=== PATIENT | female | born 1945 ===

== ENCOUNTER 2020-09-14 13:02 | Observation (INO) | payer MEDICARE ==
[2020-09-14 13:11] LABS: Glucose,Whole Blood 63 mg/dL (75-99)
--- NOTE | 2020-09-14 14:13 | ED ---
General Adult HPI - General Chief complaint: Urogenital Stated complaint: hypoglycemia, ulcer on foot Time Seen by Provider: 09/14/20 13:23 Source: patient Mode of arrival: wheelchair Limitations: no limitations - History of Present Illness Initial comments: 75-year-old female presents to the emergency room for several complaints. Patient maintained complaint is hypoglycemia. Patient takes oral medications for diabetes, does not take any insulin. Yesterday patient was not feeling well and her family checked her glucose and it was in the 50s. States they have been giving her juice and feeding her and it has stayed in the 50s and low 60s throughout the evening and today. They did not give her her diabetes medication today. They're also concerned she may have a UTI. She has had thick and foul smelling urine. No fevers. Patient has no other complaints at this time including shortness of breath, chest pain, abdominal pain, nausea or vomiting, headache, or visual changes. - Related Data Allergies Allergy/AdvReac Type Severity Reaction Status Date / Time No Known Allergies Allergy Verified 09/14/20 13:14 Review of Systems ROS Statement: Those systems with pertinent positive or pertinent negative responses have been documented in the HPI. ROS Other: All systems not noted in ROS Statement are negative. Past Medical History Past Medical History: Coronary Artery Disease (CAD), Diabetes Mellitus, Hyperlipidemia, Hypertension History of Any Multi-Drug Resistant Organisms: None Reported Past Surgical History: Heart Catheterization With Stent, Orthopedic Surgery Additional Past Surgical History / Comment(s): hip surgery Past Psychological History: No Psychological Hx Reported Smoking Status: Never smoker Past Alcohol Use History: None Reported Past Drug Use History: None Reported General Exam Limitations: no limitations General appearance: alert, in no apparent distress Head exam: Present: atraumatic, normocephalic, normal inspection Eye exam: Present: normal appearance, PERRL, EOMI. Absent: scleral icterus, conjunctival injection, periorbital swelling ENT exam: Present: normal exam, mucous membranes moist Neck exam: Present: normal inspection, full ROM. Absent: tenderness, meningismus, lymphadenopathy Respiratory exam: Present: normal lung sounds bilaterally. Absent: respiratory distress, wheezes, rales, rhonchi, stridor Cardiovascular Exam: Present: regular rate, normal rhythm, normal heart sounds. Absent: systolic murmur, diastolic murmur, rubs, gallop, clicks GI/Abdominal exam: Present: soft, normal bowel sounds. Absent: distended, te nderness, guarding, rebound, rigid Neurological exam: Present: alert Course Vital Signs 09/14/20 09/14/20 09/14/20 13:08 13:49 14:55 Temperature 98.6 F Pulse Rate 56 L Respiratory 18 16 16 Rate Blood Pressure 140/57 O2 Sat by Pulse 100 Oximetry 09/14/20 15:44 Temperature Pulse Rate 101 H Respiratory 16 Rate Blood Pressure 153/79 O2 Sat by Pulse 99 Oximetry Medical Decision Making - Medical Decision Making Vitals are stable. CBG initially 63. Patient did eat and drink and this actually decreased to 56. Patient was given an amp of glucose and this did improve to 116. Blood work reveals a hemoglobin of 9 and a GFR of 25. No active bleeding. Denies black or red stools. Patient unsure of baseline labs. Patient will be given fluids. Her analysis does show evidence of urinary tract infection. This is likely the cause of patient's hypoglycemia. Patient will be admitted for IV antibiotics and for monitoring of hypoglycemia. - Lab Data Result diagrams: 09/14/20 14:29 09/14/20 14:29 Lab Results 09/14/20 09/14/20 09/14/20 Range/Units 13:10 14:29 14:29 WBC 7.0 (3.8-10.6) k/uL RBC 3.01 L (3.80-5.40) m/uL Hgb 9.0 L (11.4-16.0) gm/dL Hct 27.5 L (34.0-46.0) % MCV 91.2 (80.0-100.0) fL MCH 29.8 (25.0-35.0) pg MCHC 32.7 (31.0-37.0) g/dL RDW 14.3 (11.5-15.5) % Plt Count 289 (150-450) k/uL MPV 7.2 Neutrophils % 82 % Lymphocytes % 11 % Monocytes % 6 % Eosinophils % 1 % Basophils % 0 % Neutrophils # 5.7 (1.3-7.7) k/uL Lymphocytes # 0.8 L (1.0-4.8) k/uL Monocytes # 0.4 (0-1.0) k/uL Eosinophils # 0.1 (0-0.7) k/uL Basophils # 0.0 (0-0.2) k/uL Hypochromasia Slight Sodium 138 (137-145) mmol/L Potassium 5.6 H (3.5-5.1) mmol/L Chloride 103 (98-107) mmol/L Carbon Dioxide 25 (22-30) mmol/L Anion Gap 10 mmol/L BUN 41 H (7-17) mg/dL Creatinine 1.95 H (0.52-1.04) mg/dL Est GFR (CKD-EPI)AfAm 29 (>60 ml/min/1.73 sqM) Est GFR (CKD-EPI)NonAf 25 (>60 ml/min/1.73 sqM) Glucose 184 H (74-99) mg/dL POC Glucose (mg/dL) 63 L (75-99) mg/dL POC Glu Account Underwriter ID Snehal, Sushma Plasma Lactic Acid Lemuel (0.7-2.0) mmol/L Calcium 10.1 (8.4-10.2) mg/dL Total Bilirubin 0.1 L (0.2-1.3) mg/dL AST 20 (14-36) U/L ALT 9 (4-34) U/L Alkaline Phosphatase 96 (38-126) U/L Total Protein 6.9 (6.3-8.2) g/dL Albumin 3.8 (3.5-5.0) g/dL Urine Color Urine Appearance (Clear) Urine pH (5.0-8.0) Ur Specific Holl[place] (1.001-1.035) Urine Protein (Negative) Urine Glucose (UA) (Negative) Urine Ketones (Negative) Urine Blood (Negative) Urine Nitrite (Negative) Urine Bilirubin (Negative) Urine Urobilinogen (<2.0) mg/dL Ur Leukocyte Esterase (Negative) Urine RBC (0-5) /hpf Urine WBC (0-5) /hpf Urine WBC Clumps (None) /hpf Ur Squamous Epith Cells (0-4) /hpf Urine Bacteria (None) /hpf Urine Mucus (None) /hpf 09/14/20 09/14/20 09/14/20 Range/Units 14:29 14:30 15:20 WBC (3.8-10.6) k/uL RBC (3.80-5.40) m/uL Hgb (11.4-16.0) gm/dL Hct (34.0-46.0) % MCV (80.0-100.0) fL MCH (25.0-35.0) pg MCHC (31.0-37.0) g/dL RDW (11.5-15.5) % Plt Count (150-450) k/uL MPV Neutrophils % % Lymphocytes % % Monocytes % % Eosinophils % % Basophils % % Neutrophils # (1.3-7.7) k/uL Lymphocytes # (1.0-4.8) k/uL Monocytes # (0-1.0) k/uL Eosinophils # (0-0.7) k/uL Basophils # (0-0.2) k/uL Hypochromasia Sodium (137-145) mmol/L Potassium (3.5-5.1) mmol/L Chloride (98-107) mmol/L Carbon Dioxide (22-30) mmol/L Anion Gap mmol/L BUN (7-17) mg/dL Creatinine (0.52-1.04) mg/dL Est GFR (CKD-EPI)AfAm (>60 ml/min/1.73 sqM) Est GFR (CKD-EPI)NonAf (>60 ml/min/1.73 sqM) Glucose (74-99) mg/dL POC Glucose (mg/dL) 56 L (75-99) mg/dL POC Glu Account Underwriter ID Angela Mota Plasma Lactic Acid Lemuel 1.1 (0.7-2.0) mmol/L Calcium (8.4-10.2) mg/dL Total Bilirubin (0.2-1.3) mg/dL AST (14-36) U/L ALT (4-34) U/L Alkaline Phosphatase (38-126) U/L Total Protein (6.3-8.2) g/dL Albumin (3.5-5.0) g/dL Urine Color Dark Yellow Urine Appearance Turbid H (Clear) Urine pH 8.0 (5.0-8.0) Ur Specific [place] 1.012 (1.001-1.035) Urine Protein 2+ H (Negative) Urine Glucose (UA) Negative (Negative) Urine Ketones Negative (Negative) Urine Blood Large H (Negative) Urine Nitrite Positive H (Negative) Urine Bilirubin Negative (Negative) Urine Urobilinogen <2.0 (<2.0) mg/dL Ur Leukocyte Esterase Large H (Negative) Urine RBC 123 H (0-5) /hpf Urine WBC >182 H (0-5) /hpf Urine WBC Clumps Moderate H (None) /hpf Ur Squamous Epith Cells 28 H (0-4) /hpf Urine Bacteria Occasional H (None) /hpf Urine Mucus Rare H (None) /hpf 09/14/20 Range/Units 15:32 WBC (3.8-10.6) k/uL RBC (3.80-5.40) m/uL Hgb (11.4-16.0) gm/dL Hct (34.0-46.0) % MCV (80.0-100.0) fL MCH (25.0-35.0) pg MCHC (31.0-37.0) g/dL RDW (11.5-15.5) % Plt Count (150-450) k/uL MPV Neutrophils % % Lymphocytes % % Monocytes % % Eosinophils % % Basophils % % Neutrophils # (1.3-7.7) k/uL Lymphocytes # (1.0-4.8) k/uL Monocytes # (0-1.0) k/uL Eosinophils # (0-0.7) k/uL Basophils # (0-0.2) k/uL Hypochromasia Sodium (137-145) mmol/L Potassium (3.5-5.1) mmol/L Chloride (98-107) mmol/L Carbon Dioxide (22-30) mmol/L Anion Gap mmol/L BUN (7-17) mg/dL Creatinine (0.52-1.04) mg/dL Est GFR (CKD-EPI)AfAm (>60 ml/min/1.73 sqM) Est GFR (CKD-EPI)NonAf (>60 ml/min/1.73 sqM) Glucose (74-99) mg/dL POC Glucose (mg/dL) 116 H (75-99) mg/dL POC Glu Account Underwriter ID Haritha Shay Plasma Lactic Acid Lemuel (0.7-2.0) mmol/L Calcium (8.4-10.2) mg/dL Total Bilirubin (0.2-1.3) mg/dL AST (14-36) U/L ALT (4-34) U/L Alkaline Phosphatase (38-126) U/L Total Protein (6.3-8.2) g/dL Albumin (3.5-5.0) g/dL Urine Color Urine Appearance (Clear) Urine pH (5.0-8.0) Ur Specific [place] (1.001-1.035) Urine Protein (Negative) Urine Glucose (UA) (Negative) Urine Ketones (Negative) Urine Blood (Negative) Urine Nitrite (Negative) Urine Bilirubin (Negative) Urine Urobilinogen (<2.0) mg/dL Ur Leukocyte Esterase (Negative) Urine RBC (0-5) /hpf Urine WBC (0-5) /hpf Urine WBC Clumps (None) /hpf Ur Squamous Epith Cells (0-4) /hpf Urine Bacteria (None) /hpf Urine Mucus (None) /hpf Disposition Clinical Impression: Anemia, UTI (urinary tract infection), CADE (acute kidney injury), Hypoglycemia Disposition: ADMITTED IP TO THIS HOSP Is patient prescribed a controlled substance at d/c from ED?: No Referrals: Anand Flaherty MD [Primary Care Provider] - 1-2 days Time of Disposition: 16:22
[2020-09-14 14:32] LABS: Glucose,Whole Blood 56 mg/dL (75-99)
[2020-09-14] MEDS ORDERED: DEXTROSE 50% SYRINGE 50 ML IVP STA ×3 (14:35→20:17)
[2020-09-14 15:01] LABS: Basophils % (A) 0 %; Eosinophils # (A) 0.1 k/uL (0-0.7); Eosinophils % (A) 1 %; HCT 27.5 % (34.0-46.0); Hypochromasia Slight; Lymphocytes # (A) 0.8 k/uL (1.0-4.8); Lymphocytes % (A) 11 %; MCH 29.8 pg (25.0-35.0); MCHC 32.7 g/dL (31.0-37.0); MCV 91.2 fL (80.0-100.0); Mean Platelet Volume 7.2; Monocytes # (A) 0.4 k/uL (0-1.0); Monocytes % (A) 6 %; Neutrophils # (A) 5.7 k/uL (1.3-7.7); Neutrophils % (A) 82 %; Platelet Count 289 k/uL (150-450); RBC 3.01 m/uL (3.80-5.40); RDW 14.3 % (11.5-15.5)
[2020-09-14 15:11] LABS: Albumin 3.8 g/dL (3.5-5.0); Calcium 10.1 mg/dL (8.4-10.2); Potassium 5.6 mmol/L (3.5-5.1); Total Bilirubin 0.1 mg/dL (0.2-1.3); Total Protein 6.9 g/dL (6.3-8.2)
[2020-09-14 15:30] LABS: Appearance,Urine Turbid (Clear); Bacteria,Urine Occasional /hpf; Bilirubin,Urine Negative (Negative); Blood,Urine Large (Negative); Color,Urine Dark Yellow; Glucose,Urine (UA) Negative (Negative); Ketones,Urine Negative (Negative); Leukocyte Esterase,Urine Large (Negative); Mucus,Urine Rare /hpf; Nitrite,Urine Positive (Negative); Protein,Urine 2+ (Negative); RBC,Urine 123 /hpf (0-5); Specific Gravity,Urine 1.012 (1.001-1.035); Squamous Epithelial Cell,Urine 28 /hpf (0-4); Urobilinogen,Urine <2.0 mg/dL (<2.0); WBC,Urine >182 /hpf (0-5)
[2020-09-14 15:37] LABS: Glucose,Whole Blood 116 mg/dL (75-99)
[2020-09-14] MEDS ORDERED: ACETAMINOPHEN TAB 325 MG TAB PO STA (15:45)
--- NOTE | 2020-09-14 15:53 | XR ---
EXAMINATION TYPE: XR chest 2V DATE OF EXAM: 09/14/2020 COMPARISON: NONE HISTORY: Fever TECHNIQUE: Frontal and lateral views of the chest are obtained. FINDINGS: There is no focal air space opacity, pleural effusion, or pneumothorax seen. The cardiac silhouette size is within normal limits. There is some mild elevation of right hemidiaphragm. The os seous structures are intact. IMPRESSION: No acute cardiopulmonary process.
[2020-09-14] MEDS ORDERED: NALOXONE 0.4 MG/ML 1 ML VIAL IV PRN ×2 (16:22→17:46)
[2020-09-14] MEDS ORDERED: ACETAMINOPHEN TAB 325 MG TAB PO PRN (16:22)
[2020-09-14] MEDS ORDERED: cefTRIAXone IN SWFI 1,000 MG/10 ML SYRINGE IVP STA (16:24)
[2020-09-14] MEDS ORDERED: SODIUM CHLORIDE 0.9% 500 ML 500 ML IV SCH (16:30)
[2020-09-14] MEDS ORDERED: SODIUM CHLORIDE 0.9% 1,000 ML IV SCH (16:30)
[2020-09-14 17:21] LABS: Glucose,Whole Blood 57 mg/dL (75-99)
--- NOTE | 2020-09-14 17:51 | P.HPIM ---
History of Present Illness H&P Date: 09/14/20 Chief Complaint: hypoglycemia, urinary hesitancy 75-year-old Greek-speaking only woman with medical history of hypertension, hyperlipidemia, diabetes, mood disorder, dementia presented with urinary hesitancy and low blood sugars. History is predominantly obtained by family at bedside and ER provider signout. Patient's family has been taking care of patient at home and noted that her sugars have been very low recently. They've been in the 50s to 60s for the last few days. They've been treating her with orange juice and trying to get her to eat more, however, became concerned due to sustained low sugars despite holding her home diabetic medication including pioglitazone and glimepiride for the last 2 days. Patient's family also notes the patient has had increased frequency and hesitancy in urination. She also has been reporting chills and loss of appetite. Otherwise denies fevers, sweats, nausea, vomiting, chest and, palpitations, syncope, presyncope, dyspnea, cough, abdominal pain, dyschezia, numbness/weakness of extremity is. In the ER, patient was noted to have grossly positive urinary tract infection. Patient also has acute kidney injury, hyperkalemia, several low blood sugars despite dextrose injections. Review of Systems All Systems reviewed and pertinent positives and negatives noted in HPI, all other symptoms are negative Past Medical History Past Medical History: Coronary Artery Disease (CAD), Diabetes Mellitus, Hyperlipidemia, Hypertension History of Any Multi-Drug Resistant Organisms: None Reported Past Surgical History: Heart Catheterization With Stent, Orthopedic Surgery Additional Past Surgical History / Comment(s): hip surgery Past Psychological History: No Psychological Hx Reported Smoking Status: Never smoker Past Alcohol Use History: None Reported Past Drug Use History: None Reported Medications and Allergies Home Medications Medication Instructions Recorded Confirmed Type Cholecalciferol (Vitamin D3) 125 mcg PO DAILY 09/14/20 09/14/20 History [Vitamin D3 (5000 Iu)] Clopidogrel [Plavix] 75 mg PO DAILY 09/14/20 09/14/20 History Collagenase [Santyl] 1 applic TOPICAL HS 09/14/20 09/14/20 History Donepezil [Aricept] 5 mg PO DAILY 09/14/20 09/14/20 History Dorzolamide/Timolol/Pf 1 drop BOTH EYES BID 09/14/20 09/14/20 History [Dorzolamide 2%-Timolol 0.5%] Glimepiride [Amaryl] 8 mg PO DAILY 09/14/20 09/14/20 History Latanoprost/Pf [Latanoprost 0.005% 1 drop BOTH EYES HS 09/14/20 09/14/20 History Eye Drop] Metoprolol Succinate (ER) [Toprol 100 mg PO DAILY 09/14/20 09/14/20 History Xl] Nitrofurantoin Macrocrystal 100 mg PO DAILY 09/14/20 09/14/20 History [Macrodantin] OLANZapine [ZyPREXA] 5 mg PO DAILY 09/14/20 09/14/20 History Pioglitazone [Actos] 30 mg PO DAILY 09/14/20 09/14/20 History Simvastatin [Zocor] 20 mg PO DAILY 09/14/20 09/14/20 History amLODIPine [Norvasc] 5 mg PO DAILY 09/14/20 09/14/20 History cloNIDine HCL [Catapres] 0.1 mg PO BID 09/14/20 09/14/20 History Allergies Allergy/AdvReac Type Severity Reaction Status Date / Time No Known Allergies Allergy Verified 09/14/20 17:29 Physical Exam Osteopathic Statement: *. No significant issues noted on an osteopathic str uctural exam other than those noted in the History and Physical/Consult. Vitals: Vital Signs Temp Pulse Resp BP Pulse Ox 09/14/20 17:28 98.0 F 79 16 187/65 98 09/14/20 15:44 101 H 16 153/79 99 09/14/20 14:55 16 09/14/20 13:49 16 09/14/20 13:08 98.6 F 56 L 18 140/57 100 Intake and Output 09/14/20 09/14/20 09/14/20 06:59 14:59 22:59 Other: Weight 60.781 kg Gen: awake, alert HEENT: normocephalic, atraumatic, good hearing acuity, moist mucous membranes Resp: good air exchange, breathing comfortably with no accessory muscle use, clear to auscultation bilaterally CVS: good distal perfusion x 4, regular rate and rhythm, no murmurs GI: soft, NTTP, ND : Positive SPT, no CVAT, turner catheter not present MSK: no pitting edema, no clubbing Neuro: non-focal, moving all extremities Psych: cooperative, euthymic mood Results CBC & Chem 7: 09/14/20 14:29 09/14/20 14:29 Labs: Abnormal Lab Results - Last 24 Hours (Table) 09/14/20 09/14/20 09/14/20 Range/Units 13:10 14:29 14:29 RBC 3.01 L (3.80-5.40) m/uL Hgb 9.0 L (11.4-16.0) gm/dL Hct 27.5 L (34.0-46.0) % Lymphocytes # 0.8 L (1.0-4.8) k/uL Potassium 5.6 H (3.5-5.1) mmol/L BUN 41 H (7-17) mg/dL Creatinine 1.95 H (0.52-1.04) mg/dL Glucose 184 H (74-99) mg/dL POC Glucose (mg/dL) 63 L (75-99) mg/dL Total Bilirubin 0.1 L (0.2-1.3) mg/dL Urine Appearance (Clear) Urine Protein (Negative) Urine Blood (Negative) Urine Nitrite (Negative) Ur Leukocyte Esterase (Negative) Urine RBC (0-5) /hpf Urine WBC (0-5) /hpf Urine WBC Clumps (None) /hpf Ur Squamous Epith Cells (0-4) /hpf Urine Bacteria (None) /hpf Urine Mucus (None) /hpf 09/14/20 09/14/20 09/14/20 Range/Units 14:30 15:20 15:32 RBC (3.80-5.40) m/uL Hgb (11.4-16.0) gm/dL Hct (34.0-46.0) % Lymphocytes # (1.0-4.8) k/uL Potassium (3.5-5.1) mmol/L BUN (7-17) mg/dL Creatinine (0.52-1.04) mg/dL Glucose (74-99) mg/dL POC Glucose (mg/dL) 56 L 116 H (75-99) mg/dL Total Bilirubin (0.2-1.3) mg/dL Urine Appearance Turbid H (Clear) Urine Protein 2+ H (Negative) Urine Blood Large H (Negative) Urine Nitrite Positive H (Negative) Ur Leukocyte Esterase Large H (Negative) Urine RBC 123 H (0-5) /hpf Urine WBC >182 H (0-5) /hpf Urine WBC Clumps Moderate H (None) /hpf Ur Squamous Epith Cells 28 H (0-4) /hpf Urine Bacteria Occasional H (None) /hpf Urine Mucus Rare H (None) /hpf 09/14/20 Range/Units 17:13 RBC (3.80-5.40) m/uL Hgb (11.4-16.0) gm/dL Hct (34.0-46.0) % Lymphocytes # (1.0-4.8) k/uL Potassium (3.5-5.1) mmol/L BUN (7-17) mg/dL Creatinine (0.52-1.04) mg/dL Glucose (74-99) mg/dL POC Glucose (mg/dL) 57 L (75-99) mg/dL Total Bilirubin (0.2-1.3) mg/dL Urine Appearance (Clear) Urine Protein (Negative) Urine Blood (Negative) Urine Nitrite (Negative) Ur Leukocyte Esterase (Negative) Urine RBC (0-5) /hpf Urine WBC (0-5) /hpf Urine WBC Clumps (None) /hpf Ur Squamous Epith Cells (0-4) /hpf Urine Bacteria (None) /hpf Urine Mucus (None) /hpf Assessment and Plan Assessment: Hypoglycemia Complicated urinary tract infection Acute kidney injury -Admit to observation -Ceftriaxone -Follow up urine culture, blood culture -Every 2 hours blood sugar checks -D50 pushes when necessary -D5 with IV fluids Hypertension Hyperlipidemia Diabetes type 2 CAD -Home medications reviewed and reconciled -Hold home glimepiride, pioglitazone -Continue home donepezil, olanzapine -Continue home amlodipine, clonidine, metoprolol -Continue home statin -Continue home dorzolamide/timolol, latanoprost Patient is on heparin 3 times a day for DVT prophylaxis Patient's daughter is the POA Patient is a full code
[2020-09-14 19:07] LABS: Glucose,Whole Blood 72 mg/dL (75-99)
[2020-09-14] MEDS: cloNIDine HCL 0.1 MG TAB PO SCH (19:35)
[2020-09-14] MEDS: DEXTROSE 5%-0.45% NACL 1,000 ML IV SCH (19:37)
[2020-09-14 20:07] LABS: Glucose,Whole Blood 43 mg/dL (75-99)
[2020-09-14 20:59] LABS: Glucose,Whole Blood 179 mg/dL (75-99)
[2020-09-14 22:11] LABS: Glucose,Whole Blood 133 mg/dL (75-99)
[2020-09-14 23:06] LABS: Glucose,Whole Blood 116 mg/dL (75-99)
[2020-09-15] MEDS: HEPARIN SODIUM,PORCINE/PF 5,000 UNIT/0.5 ML SYRINGE SQ SCH ×4 (00:08→23:31)
[2020-09-15] MEDS: DORZOLAMIDE-TIMOLOL 2.23%/0.68 10ML BTL BOTH EYES SCH ×3 (02:11→20:13)
[2020-09-15] MEDS: LATANOPROST 0.005% OPHTH DROPS 2.5 ML BTL BOTH EYES SCH ×2 (02:12→20:13)
[2020-09-15 02:22] LABS: Glucose,Whole Blood 64 mg/dL (75-99)
[2020-09-15 02:41] LABS: Glucose,Whole Blood 74 mg/dL (75-99)
[2020-09-15 03:02] LABS: Glucose,Whole Blood 83 mg/dL (75-99)
[2020-09-15 04:08] LABS: Basophils % (A) 1 %; Eosinophils # (A) 0.1 k/uL (0-0.7); Eosinophils % (A) 2 %; HCT 26.2 % (34.0-46.0); HGB 8.6 gm/dL (11.4-16.0); Lymphocytes # (A) 1.1 k/uL (1.0-4.8); Lymphocytes % (A) 20 %; MCH 29.9 pg (25.0-35.0); MCV 90.7 fL (80.0-100.0); Mean Platelet Volume 6.9; Monocytes # (A) 0.4 k/uL (0-1.0); Monocytes % (A) 7 %; Neutrophils # (A) 3.7 k/uL (1.3-7.7); Neutrophils % (A) 70 %; Platelet Count 241 k/uL (150-450); RBC 2.89 m/uL (3.80-5.40); RDW 14.3 % (11.5-15.5); WBC 5.4 k/uL (3.8-10.6)
[2020-09-15 04:22] LABS: African American GFR (CKD) 34 (>60 ml/min/1.73 sqM); Anion Gap 8 mmol/L; Blood Urea Nitrogen 34 mg/dL (7-17); Calcium 9.8 mg/dL (8.4-10.2); Carbon Dioxide 25 mmol/L (22-30); Chloride 106 mmol/L (98-107); Glucose 83 mg/dL (74-99); Magnesium 2.4 mg/dL (1.6-2.3); Non-African American GFR(CKD) 29 (>60 ml/min/1.73 sqM); Potassium 4.5 mmol/L (3.5-5.1); Sodium 139 mmol/L (137-145)
[2020-09-15 05:09] LABS: Glucose,Whole Blood 58 mg/dL (75-99)
[2020-09-15 05:09] LABS: Glucose,Whole Blood 63 mg/dL (75-99)
[2020-09-15 05:21] LABS: Glucose,Whole Blood 71 mg/dL (75-99)
[2020-09-15 05:56] LABS: Glucose,Whole Blood 87 mg/dL (75-99)
[2020-09-15 06:56] LABS: Glucose,Whole Blood 173 mg/dL (75-99)
[2020-09-15] MEDS: DEXTROSE 5%-0.45% NACL 1,000 ML IV SCH (07:06)
[2020-09-15] MEDS: CHOLECALCIFEROL 25 MCG (1000 IU) TABLET PO SCH (07:07)
[2020-09-15] MEDS: cloNIDine HCL 0.1 MG TAB PO SCH ×2 (07:07→20:13)
[2020-09-15] MEDS: OLANZapine 5 MG TAB PO SCH (07:08)
[2020-09-15] MEDS: DONEPEZIL 5 MG TAB PO SCH (07:08)
[2020-09-15] MEDS: METOPROLOL SUCCINATE (ER) 100 MG TAB.ER.24H PO SCH (07:08)
[2020-09-15] MEDS: CLOPIDOGREL 75 MG TAB PO SCH (07:08)
[2020-09-15] MEDS: ATORVASTATIN 10 MG TAB PO SCH (07:08)
[2020-09-15] MEDS: amLODIPine 5 MG TAB PO SCH (07:08)
[2020-09-15] MEDS ORDERED: cefTRIAXone IN SWFI 1,000 MG/10 ML SYRINGE IVP SCH (09:00)
[2020-09-15 09:44] LABS: Glucose,Whole Blood 148 mg/dL (75-99)
[2020-09-15 12:31] LABS: Glucose,Whole Blood 178 mg/dL (75-99)
--- NOTE | 2020-09-15 12:45 | P.PN ---
Subjective Progress Note Date: 09/15/20 No new complaints today. Objective - Vital Signs Vital signs: Vital Signs Temp 97.6 F 09/15/20 05:29 Pulse 104 H 09/15/20 05:29 Resp 16 09/15/20 05:29 BP 120/62 09/15/20 05:29 Pulse Ox 100 09/15/20 05:29 Intake & Output 09/14/20 09/15/20 09/15/20 18:59 06:59 18:59 Weight 60.781 kg - Exam Gen: awake, alert HEENT: normocephalic, atraumatic, good hearing acuity, moist mucous membranes Resp: good air exchange, breathing comfortably with no accessory muscle use, clear to auscultation bilaterally CVS: good distal perfusion x 4, regular rate and rhythm, no murmurs GI: soft, NTTP, ND : Positive SPT, no CVAT, turner catheter not present MSK: no pitting edema, no clubbing Neuro: non-focal, moving all extremities Psych: cooperative, euthymic mood - Labs CBC & Chem 7: 09/15/20 03:50 09/15/20 03:50 Labs: Abnormal Lab Results - Last 24 Hours (Table) 09/14/20 09/14/20 09/14/20 Range/Units 13:10 14:29 14:29 RBC 3.01 L (3.80-5.40) m/uL Hgb 9.0 L (11.4-16.0) gm/dL Hct 27.5 L (34.0-46.0) % Lymphocytes # 0.8 L (1.0-4.8) k/uL Potassium 5.6 H (3.5-5.1) mmol/L BUN 41 H (7-17) mg/dL Creatinine 1.95 H (0.52-1.04) mg/dL Glucose 184 H (74-99) mg/dL POC Glucose (mg/dL) 63 L (75-99) mg/dL Magnesium (1.6-2.3) mg/dL Total Bilirubin 0.1 L (0.2-1.3) mg/dL Urine Appearance (Clear) Urine Protein (Negative) Urine Blood (Negative) Urine Nitrite (Negative) Ur Leukocyte Esterase (Negative) Urine RBC (0-5) /hpf Urine WBC (0-5) /hpf Urine WBC Clumps (None) /hpf Ur Squamous Epith Cells (0-4) /hpf Urine Bacteria (None) /hpf Urine Mucus (None) /hpf 09/14/20 09/14/20 09/14/20 Range/Units 14:30 15:20 15:32 RBC (3.80-5.40) m/uL Hgb (11.4-16.0) gm/dL Hct (34.0-46.0) % Lymphocytes # (1.0-4.8) k/uL Potassium (3.5-5.1) mmol/L BUN (7-17) mg/dL Creatinine (0.52-1.04) mg/dL Glucose (74-99) mg/dL POC Glucose (mg/dL) 56 L 116 H (75-99) mg/dL Magnesium (1.6-2.3) mg/dL Total Bilirubin (0.2-1.3) mg/dL Urine Appearance Turbid H (Clear) Urine Protein 2+ H (Negative) Urine Blood Large H (Negative) Urine Nitrite Positive H (Negative) Ur Leukocyte Esterase Large H (Negative) Urine RBC 123 H (0-5) /hpf Urine WBC >182 H (0-5) /hpf Urine WBC Clumps Moderate H (None) /hpf Ur Squamous Epith Cells 28 H (0-4) /hpf Urine Bacteria Occasional H (None) /hpf Urine Mucus Rare H (None) /hpf 09/14/20 09/14/20 09/14/20 Range/Units 17:13 18:55 20:05 RBC (3.80-5.40) m/uL Hgb (11.4-16.0) gm/dL Hct (34.0-46.0) % Lymphocytes # (1.0-4.8) k/uL Potassium (3.5-5.1) mmol/L BUN (7-17) mg/dL Creatinine (0.52-1.04) mg/dL Glucose (74-99) mg/dL POC Glucose (mg/dL) 57 L 72 L 43 L (75-99) mg/dL Magnesium (1.6-2.3) mg/dL Total Bilirubin (0.2-1.3) mg/dL Urine Appearance (Clear) Urine Protein (Negative) Urine Blood (Negative) Urine Nitrite (Negative) Ur Leukocyte Esterase (Negative) Urine RBC (0-5) /hpf Urine WBC (0-5) /hpf Urine WBC Clumps (None) /hpf Ur Squamous Epith Cells (0-4) /hpf Urine Bacteria (None) /hpf Urine Mucus (None) /hpf 09/14/20 09/14/20 09/14/20 Range/Units 20:48 22:08 23:03 RBC (3.80-5.40) m/uL Hgb (11.4-16.0) gm/dL Hct (34.0-46.0) % Lymphocytes # (1.0-4.8) k/uL Potassium (3.5-5.1) mmol/L BUN (7-17) mg/dL Creatinine (0.52-1.04) mg/dL Glucose (74-99) mg/dL POC Glucose (mg/dL) 179 H 133 H 116 H (75-99) mg/dL Magnesium (1.6-2.3) mg/dL Total Bilirubin (0.2-1.3) mg/dL Urine Appearance (Clear) Urine Protein (Negative) Urine Blood (Negative) Urine Nitrite (Negative) Ur Leukocyte Esterase (Negative) Urine RBC (0-5) /hpf Urine WBC (0-5) /hpf Urine WBC Clumps (None) /hpf Ur Squamous Epith Cells (0-4) /hpf Urine Bacteria (None) /hpf Urine Mucus (None) /hpf 09/15/20 09/15/20 09/15/20 Range/Units 02:08 02:29 03:50 RBC 2.89 L (3.80-5.40) m/uL Hgb 8.6 L (11.4-16.0) gm/dL Hct 26.2 L (34.0-46.0) % Lymphocytes # (1.0-4.8) k/uL Potassium (3.5-5.1) mmol/L BUN (7-17) mg/dL Creatinine (0.52-1.04) mg/dL Glucose (74-99) mg/dL POC Glucose (mg/dL) 64 L 74 L (75-99) mg/dL Magnesium (1.6-2.3) mg/dL Total Bilirubin (0.2-1.3) mg/dL Urine Appearance (Clear) Urine Protein (Negative) Urine Blood (Negative) Urine Nitrite (Negative) Ur Leukocyte Esterase (Negative) Urine RBC (0-5) /hpf Urine WBC (0-5) /hpf Urine WBC Clumps (None) /hpf Ur Squamous Epith Cells (0-4) /hpf Urine Bacteria (None) /hpf Urine Mucus (None) /hpf 09/15/20 09/15/20 09/15/20 Range/Units 03:50 05:01 05:03 RBC (3.80-5.40) m/uL Hgb (11.4-16.0) gm/dL Hct (34.0-46.0) % Lymphocytes # (1.0-4.8) k/uL Potassium (3.5-5.1) mmol/L BUN 34 H (7-17) mg/dL Creatinine 1.70 H (0.52-1.04) mg/dL Glucose (74-99) mg/dL POC Glucose (mg/dL) 63 L 58 L (75-99) mg/dL Magnesium 2.4 H (1.6-2.3) mg/dL Total Bilirubin (0.2-1.3) mg/dL Urine Appearance (Clear) Urine Protein (Negative) Urine Blood (Negative) Urine Nitrite (Negative) Ur Leukocyte Esterase (Negative) Urine RBC (0-5) /hpf Urine WBC (0-5) /hpf Urine WBC Clumps (None) /hpf Ur Squamous Epith Cells (0-4) /hpf Urine Bacteria (None) /hpf Urine Mucus (None) /hpf 09/15/20 09/15/20 09/15/20 Range/Units 05:20 06:54 09:42 RBC (3.80-5.40) m/uL Hgb (11.4-16.0) gm/dL Hct (34.0-46.0) % Lymphocytes # (1.0-4.8) k/uL Potassium (3.5-5.1) mmol/L BUN (7-17) mg/dL Creatinine (0.52-1.04) mg/dL Glucose (74-99) mg/dL POC Glucose (mg/dL) 71 L 173 H 148 H (75-99) mg/dL Magnesium (1.6-2.3) mg/dL Total Bilirubin (0.2-1.3) mg/dL Urine Appearance (Clear) Urine Protein (Negative) Urine Blood (Negative) Urine Nitrite (Negative) Ur Leukocyte Esterase (Negative) Urine RBC (0-5) /hpf Urine WBC (0-5) /hpf Urine WBC Clumps (None) /hpf Ur Squamous Epith Cells (0-4) /hpf Urine Bacteria (None) /hpf Urine Mucus (None) /hpf 09/15/20 Range/Units 12:27 RBC (3.80-5.40) m/uL Hgb (11.4-16.0) gm/dL Hct (34.0-46.0) % Lymphocytes # (1.0-4.8) k/uL Potassium (3.5-5.1) mmol/L BUN (7-17) mg/dL Creatinine (0.52-1.04) mg/dL Glucose (74-99) mg/dL POC Glucose (mg/dL) 178 H (75-99) mg/dL Magnesium (1.6-2.3) mg/dL Total Bilirubin (0.2-1.3) mg/dL Urine Appearance (Clear) Urine Protein (Negative) Urine Blood (Negative) Urine Nitrite (Negative) Ur Leukocyte Esterase (Negative) Urine RBC (0-5) /hpf Urine WBC (0-5) /hpf Urine WBC Clumps (None) /hpf Ur Squamous Epith Cells (0-4) /hpf Urine Bacteria (None) /hpf Urine Mucus (None) /hpf Microbiology - Last 24 Hours (Table) 09/14/20 15:20 Urine Culture - Preliminary Urine,Catheterized Assessment and Plan Assessment: Hypoglycemia Complicated urinary tract infection Acute kidney injury -Admit to observation -Ceftriaxone -Follow up urine culture, blood culture -Every 2 hours blood sugar checks -D50 pushes when necessary -D5 with IV fluids Hypertension Hyperlipidemia Diabetes type 2 CAD -Home medications reviewed and reconciled -Hold home glimepiride, pioglitazone -Continue home donepezil, olanzapine -Continue home amlodipine, clonidine, metoprolol -Continue home statin -Continue home dorzolamide/timolol, latanoprost Patient is on heparin 3 times a day for DVT prophylaxis Patient's daughter is the POA Patient is a full code
[2020-09-15 15:21] LABS: Glucose,Whole Blood 172 mg/dL (75-99)
[2020-09-15 17:29] LABS: Glucose,Whole Blood 122 mg/dL (75-99)
[2020-09-15] MEDS: COLLAGENASE 250 UNIT/GM OINTMENT 30 GM TUBE TOPICAL SCH (19:38)
[2020-09-15 19:48] LABS: Glucose,Whole Blood 191 mg/dL (75-99)
[2020-09-15] MEDS: INSULIN ASPART (NovoLOG) 100 UNIT/ML VIAL SQ SCH (20:13)
[2020-09-15] MEDS: SODIUM CHLORIDE 0.9% 1,000 ML IV SCH (20:13)
[2020-09-16 02:39] LABS: Glucose,Whole Blood 138 mg/dL (75-99)
[2020-09-16 07:24] LABS: Glucose,Whole Blood 142 mg/dL (75-99)
[2020-09-16] MEDS: INSULIN ASPART (NovoLOG) 100 UNIT/ML VIAL SQ SCH ×4 (08:39→21:40)
[2020-09-16] MEDS: CHOLECALCIFEROL 25 MCG (1000 IU) TABLET PO SCH (08:39)
[2020-09-16] MEDS: CLOPIDOGREL 75 MG TAB PO SCH (08:39)
[2020-09-16] MEDS: ATORVASTATIN 10 MG TAB PO SCH (08:39)
[2020-09-16] MEDS: cloNIDine HCL 0.1 MG TAB PO SCH ×2 (08:39→21:41)
[2020-09-16] MEDS: HEPARIN SODIUM,PORCINE/PF 5,000 UNIT/0.5 ML SYRINGE SQ SCH ×2 (08:39→15:07)
[2020-09-16] MEDS: amLODIPine 5 MG TAB PO SCH (08:40)
[2020-09-16] MEDS: COLLAGENASE 250 UNIT/GM OINTMENT 30 GM TUBE TOPICAL SCH ×2 (08:40→21:35)
[2020-09-16] MEDS: DONEPEZIL 5 MG TAB PO SCH (08:40)
[2020-09-16] MEDS: OLANZapine 5 MG TAB PO SCH (08:40)
[2020-09-16] MEDS: DORZOLAMIDE-TIMOLOL 2.23%/0.68 10ML BTL BOTH EYES SCH ×2 (08:41→21:41)
[2020-09-16] MEDS: METOPROLOL SUCCINATE (ER) 100 MG TAB.ER.24H PO SCH (08:41)
[2020-09-16 11:50] VITALS: BMI 23.0
[2020-09-16 12:57] LABS: Glucose,Whole Blood 169 mg/dL (75-99)
[2020-09-16] MEDS: SODIUM CHLORIDE 0.9% 1,000 ML IV SCH ×2 (13:01→21:40)
--- NOTE | 2020-09-16 16:12 | P.PN ---
Subjective Progress Note Date: 09/16/20 Hospital course: Patient is a 75 year female with a past medical history of hypertension, hyperlipidemia, dementia, and mood disorder whom presented to the hospital on 09/14/20 with a chief complaint of hypoglycemia and urinary hesitancy resulting in diagnosis of acute kidney injury and urinary tract infection. Patient admitted under our services for continued medical management.. Patient was found to have significant urinary retention greater than 800 mL postvoid residual. Mack catheter placed and urology consulted. Urine culture positive for gram-negative bacilli, Awaiting sensitivity report. Blood culture showing no growth after 24 hours. Continue IV antibiotic with Rocephin pending sensitivity report. Physical exam: Patient was seen and fully evaluated at the bedside. Patient appeared alert to self only and only answering questions with yes and fine. Denied any complaints of pain or discomfort at this time. Appeared comfortable. Vitals reviewed and stable. General: non toxic, no distress, appears at stated age Derm: warm, dry. Ulceration/Wound to left heel with dressing in place that is clean dry and intact. Head: atraumatic, normocephalic, symmetric Eyes: EOMI, no lid lag, anicteric sclera Mouth: no lip lesion, mucus membranes moist Cardiovascular: S1S2 reg, no murmur, positive posterior tibial pulse bilateral, Lungs: CTA bilateral, no rhonchi, no rales , no accessory muscle use Abdominal: soft, nontender to palpation, no guarding, no appreciable organomegaly Ext: no gross muscle atrophy, no edema, no contractures Neuro: CN II-XI grossly intact, no focal neuro deficits Psych: Alert, oriented, appropriate affect Plan of care: Acute kidney injury Urinary tract infection Urinary retention -Urine culture positive for gram-negative bacilli, awaiting sensitivity report. -Continue IV antibiotic Rocephin, pending culture sensitivity report. -Insert Mack catheter secondary to post void residual greater than 800 mL's. -Consult urology for urinary retention. -Continue with gentle hydration and repeat a.m. labs to monitor renal function. Hypoglycemia, resolved -Monitor blood glucose levels closely Hypertension -Monitor vital signs and continue daily medication management. Hyperlipidemia -Continue daily medication regimen. Dementia with mood disorder -Continue daily medication regimen. -Provide safe and supportive care. CODE STATUS: Full code DVT prophylaxis: Heparin Discussed with: Patient and RN Anticipated discharge date: 1-[address]: Home with home care A total of 45 minutes was spent on the care of this complex patient more than 50% of the time was spent in counseling and care coordination. Objective - Vital Signs Vital signs: Vital Signs Temp 99.0 F 09/16/20 04:08 Pulse 92 09/16/20 04:08 Resp 16 09/16/20 04:08 BP 150/76 09/16/20 04:08 Pulse Ox 99 09/16/20 04:08 Intake & Output 09/15/20 09/16/20 09/16/20 18:59 06:59 18:59 Intake Total 590 Balance 590 Intake: Oral 590 Other: Voiding Method Diaper Diaper # Voids 3 - Labs CBC & Chem 7: 09/15/20 03:50 09/15/20 03:50 Labs: Abnormal Lab Results - Last 24 Hours (Table) 09/15/20 09/15/20 09/15/20 Range/Units 12:27 14:00 15:09 POC Glucose (mg/dL) 178 H 172 H (75-99) mg/dL C-Peptide 5.59 H (0.81-3.85) ng/mL 09/15/20 09/15/20 09/16/20 Range/Units 17:24 19:46 02:38 POC Glucose (mg/dL) 122 H 191 H 138 H (75-99) mg/dL C-Peptide (0.81-3.85) ng/mL 09/16/20 Range/Units 07:22 POC Glucose (mg/dL) 142 H (75-99) mg/dL C-Peptide (0.81-3.85) ng/mL Microbiology - Last 24 Hours (Table) 09/14/20 15:20 Urine Culture - Preliminary Urine,Catheterized Gram Neg Bacilli 09/14/20 18:30 Blood Culture - Preliminary Blood No Growth after 24 hours 09/14/20 17:30 Blood Culture - Preliminary Blood No Growth after 24 hours
[2020-09-16 17:29] LABS: Glucose,Whole Blood 226 mg/dL (75-99)
[2020-09-16 20:04] LABS: Glucose,Whole Blood 158 mg/dL (75-99)
[2020-09-16] MEDS: LATANOPROST 0.005% OPHTH DROPS 2.5 ML BTL BOTH EYES SCH (21:41)
[2020-09-17] MEDS: DORZOLAMIDE-TIMOLOL 2.23%/0.68 10ML BTL BOTH EYES SCH ×3 (00:03→21:06)
[2020-09-17] MEDS: LATANOPROST 0.005% OPHTH DROPS 2.5 ML BTL BOTH EYES SCH ×2 (00:03→21:06)
[2020-09-17] MEDS: HEPARIN SODIUM,PORCINE/PF 5,000 UNIT/0.5 ML SYRINGE SQ SCH ×3 (00:44→15:57)
[2020-09-17 02:26] LABS: Glucose,Whole Blood 107 mg/dL (75-99)
[2020-09-17 05:36] LABS: HCT 25.3 % (34.0-46.0); HGB 8.3 gm/dL (11.4-16.0); Hypochromasia Slight; MCH 29.9 pg (25.0-35.0); MCHC 32.8 g/dL (31.0-37.0); MCV 91.2 fL (80.0-100.0); Mean Platelet Volume 7.1; Platelet Count 257 k/uL (150-450); RBC 2.78 m/uL (3.80-5.40); RDW 14.3 % (11.5-15.5); WBC 5.8 k/uL (3.8-10.6)
[2020-09-17 06:38] LABS: African American GFR (CKD) 40 (>60 ml/min/1.73 sqM); Anion Gap 6 mmol/L; Blood Urea Nitrogen 28 mg/dL (7-17); Calcium 9.7 mg/dL (8.4-10.2); Carbon Dioxide 25 mmol/L (22-30); Chloride 110 mmol/L (98-107); Glucose 118 mg/dL (74-99); Magnesium 2.1 mg/dL (1.6-2.3); Non-African American GFR(CKD) 35 (>60 ml/min/1.73 sqM); Potassium 4.9 mmol/L (3.5-5.1); Sodium 141 mmol/L (137-145)
[2020-09-17 06:56] LABS: Glucose,Whole Blood 158 mg/dL (75-99)
[2020-09-17] MEDS: INSULIN ASPART (NovoLOG) 100 UNIT/ML VIAL SQ SCH ×4 (08:25→21:07)
[2020-09-17] MEDS: amLODIPine 5 MG TAB PO SCH (08:25)
[2020-09-17] MEDS: ATORVASTATIN 10 MG TAB PO SCH (08:25)
[2020-09-17] MEDS: CHOLECALCIFEROL 25 MCG (1000 IU) TABLET PO SCH (08:25)
[2020-09-17] MEDS: OLANZapine 5 MG TAB PO SCH (08:26)
[2020-09-17] MEDS: DONEPEZIL 5 MG TAB PO SCH (08:26)
[2020-09-17] MEDS: METOPROLOL SUCCINATE (ER) 100 MG TAB.ER.24H PO SCH (08:26)
[2020-09-17] MEDS: cloNIDine HCL 0.1 MG TAB PO SCH ×2 (08:27→21:09)
[2020-09-17] MEDS: CLOPIDOGREL 75 MG TAB PO SCH (08:27)
--- NOTE | 2020-09-17 10:31 | P.CONS ---
History of Present Illness - Reason for Consult Consult date: 09/17/20 wound care - History of Present Illness this is a 75-year-old patient being seen on [address] for nonhealing ulcerations to the left heel and the left gluteus. Patient is primarily speaking and did not answer any questions. Per review of the chart and speaking with the nurse patient had a fracture of the left ankle requiring surgery. Patient has sutures in place to the posterior portion of the left calcaneus with an eschar. No granulation seen within the wound bed. Plantar aspect of the calcaneus has a steri strip in place and the lateral aspect of the malleolus has Steri-Strips in place. The left gluteus ulcer is approximately 1 x 1 x 0.1 width eschar noted minimal granulation seen on the edges. With fat layer exposure. Patient's past medical history significant for coronary artery disease, diabetes, hyperlipidemia, and hypertension. Review of systems: Unable to obtain Physical exam: General Appearance: Alert, cooperative, no distress, appears stated age. Skin: See HPI all other Skin color, texture, tugor normal, no rashes or lesions. Neurologic: Alert oriented x3 Assessment: 1. Nonhealing ulceration left calcaneus with fat layer exposure. 2. Pressure ulcer left gluteus stage II 3. Diabetic foot ulcer Plan: 1.Left heel: Apply Santyl, saline moist gauze, dry gauze, rolled gauze ans s ecure with tape. Left buttocks: Apply santyl, saline moist gauze, ABD and secure with paper tape. 2. Patient would benefit from wound debridement and removal of sutures, we would be happy to see her in the wound care center upon discharge. Thank you for the consultation any questions please contact the wound center. DNP note has been reviewed and discussed with Dr. Kim and the impression and plan of care has been directed as dictated. Past Medical History Past Medical History: Coronary Artery Disease (CAD), Diabetes Mellitus, Hyperlipidemia, Hypertension History of Any Multi-Drug Resistant Organisms: None Reported Past Surgical History: Heart Catheterization With Stent, Orthopedic Surgery Additional Past Surgical History / Comment(s): hip surgery, cataract sx, left ankle surgery 2020 Date of Last Stent Placement:: 2000 Past Psychological History: No Psychological Hx Reported Smoking Status: Never smoker Past Alcohol Use History: None Reported Past Drug Use History: None Reported Medications and Allergies Home Medications Medication Instructions Recorded Confirmed Type Cholecalciferol (Vitamin D3) 125 mcg PO DAILY 09/14/20 09/14/20 History [Vitamin D3 (5000 Iu)] Clopidogrel [Plavix] 75 mg PO DAILY 09/14/20 09/14/20 History Collagenase [Santyl] 1 applic TOPICAL HS 09/14/20 09/14/20 History Donepezil [Aricept] 5 mg PO DAILY 09/14/20 09/14/20 History Dorzolamide/Timolol/Pf 1 drop BOTH EYES BID 09/14/20 09/14/20 History [Dorzolamide 2%-Timolol 0.5%] Glimepiride [Amaryl] 8 mg PO DAILY 09/14/20 09/14/20 History Latanoprost/Pf [Latanoprost 0.005% 1 drop BOTH EYES HS 09/14/20 09/14/20 History Eye Drop] Metoprolol Succinate (ER) [Toprol 100 mg PO DAILY 09/14/20 09/14/20 History Xl] Nitrofurantoin Macrocrystal 100 mg PO DAILY 09/14/20 09/14/20 History [Macrodantin] OLANZapine [ZyPREXA] 5 mg PO DAILY 09/14/20 09/14/20 History Pioglitazone [Actos] 30 mg PO DAILY 09/14/20 09/14/20 History Simvastatin [Zocor] 20 mg PO DAILY 09/14/20 09/14/20 History amLODIPine [Norvasc] 5 mg PO DAILY 09/14/20 09/14/20 History cloNIDine HCL [Catapres] 0.1 mg PO BID 09/14/20 09/14/20 History Allergies Allergy/AdvReac Type Severity Reaction Status Date / Time No Known Allergies Allergy Verified 09/14/20 17:29 Physical Exam Vitals: Vital Signs Temp Pulse Resp BP Pulse Ox 09/17/20 05:05 98.8 F 96 16 145/75 98 09/16/20 19:50 98.7 F 104 H 16 128/75 99 09/16/20 12:45 98.3 F 94 18 161/93 98 Intake and Output 09/16/20 09/17/20 09/17/20 22:59 06:59 14:59 Intake Total 540 Output Total 780 800 Balance -240 -800 Intake: Oral 540 Output: Urine 780 800 Uretheral (Mack) 780 Other: Voiding Method Indwelling Catheter Results CBC & Chem 7: 09/17/20 04:48 09/17/20 04:48 Labs: Abnormal Lab Results - Last 24 Hours (Table) 09/16/20 09/16/20 09/16/20 Range/Units 12:55 17:22 20:02 RBC (3.80-5.40) m/uL Hgb (11.4-16.0) gm/dL Hct (34.0-46.0) % Chloride (98-107) mmol/L BUN (7-17) mg/dL Creatinine (0.52-1.04) mg/dL Glucose (74-99) mg/dL POC Glucose (mg/dL) 169 H 226 H 158 H (75-99) mg/dL 09/17/20 09/17/20 09/17/20 Range/Units 02:24 04:48 04:48 RBC 2.78 L (3.80-5.40) m/uL Hgb 8.3 L (11.4-16.0) gm/dL Hct 25.3 L (34.0-46.0) % Chloride 110 H (98-107) mmol/L BUN 28 H (7-17) mg/dL Creatinine 1.49 H (0.52-1.04) mg/dL Glucose 118 H (74-99) mg/dL POC Glucose (mg/dL) 107 H (75-99) mg/dL 09/17/20 Range/Units 06:54 RBC (3.80-5.40) m/uL Hgb (11.4-16.0) gm/dL Hct (34.0-46.0) % Chloride (98-107) mmol/L BUN (7-17) mg/dL Creatinine (0.52-1.04) mg/dL Glucose (74-99) mg/dL POC Glucose (mg/dL) 158 H (75-99) mg/dL Microbiology - Last 24 Hours (Table) 09/14/20 17:30 Blood Culture - Preliminary Blood No Growth after 48 hours 09/14/20 18:30 Blood Culture - Preliminary Blood No Growth after 48 hours Assessment and Plan (1) Pressure ulcer of left buttock, stage 2 Current Visit: Yes Status: Acute Code(s): L89.322 - PRESSURE ULCER OF LEFT BUTTOCK, STAGE 2 SNOMED Code(s): 94616627223159798 (2) Non-healing ulcer of left foot with fat layer exposed Current Visit: Yes Status: Acute Code(s): L97.522 - NON-PRS CHRONIC ULCER OTH PRT LEFT FOOT W FAT LAYER EXPOSED SNOMED Code(s): 515699326 (3) Diabetic foot ulcer Current Visit: Yes Status: Acute Code(s): E11.621 - TYPE 2 DIABETES MELLITUS WITH FOOT ULCER; L97.509 - NON-PRESSURE CHRONIC ULCER OTH PRT UNSP FOOT W UNSP SEVERITY SNOMED Code(s): 416251052
--- NOTE | 2020-09-17 12:07 | P.GSCN ---
History of Present Illness Consult date: 09/17/20 History of present illness: 75-year-old female in the hospital with multiple medical complaints. She is a noncompliant diabetic and apparently has had low blood sugars as of late. She also according the family has had problems with urination including foul- smelling urine. They wondered whether she may have an infection. The patient is a Turkish-speaking lady and does not speak much Bel[place]ian. She was admitted to the hospital. A Mack catheters placed with 700 mL of infected looking urine. Apparently he has had some ankle surgery as of late that. She also has gluteal pressure sore. The interview with me is Turkish a. She states that she has not really had any problems urinating. She has had an occasional infection. She does not answer whether she has had any incontinence. She denies any blood. The catheter in the bladder is draining clear urine. She is not on medication that would contribute to urine retention. Review of Systems ROS unobtainable: due to mental status Past Medical History Past Medical History: Coronary Artery Disease (CAD), Diabetes Mellitus, Hyp erlipidemia, Hypertension History of Any Multi-Drug Resistant Organisms: None Reported Past Surgical History: Heart Catheterization With Stent, Orthopedic Surgery Additional Past Surgical History / Comment(s): hip surgery, cataract sx, left ankle surgery 2020 Date of Last Stent Placement:: 2000 Past Psychological History: No Psychological Hx Reported Smoking Status: Never smoker Past Alcohol Use History: None Reported Past Drug Use History: None Reported Medications and Allergies Home Medications Medication Instructions Recorded Confirmed Type Cholecalciferol (Vitamin D3) 125 mcg PO DAILY 09/14/20 09/14/20 History [Vitamin D3 (5000 Iu)] Clopidogrel [Plavix] 75 mg PO DAILY 09/14/20 09/14/20 History Collagenase [Santyl] 1 applic TOPICAL HS 09/14/20 09/14/20 History Donepezil [Aricept] 5 mg PO DAILY 09/14/20 09/14/20 History Dorzolamide/Timolol/Pf 1 drop BOTH EYES BID 09/14/20 09/14/20 History [Dorzolamide 2%-Timolol 0.5%] Glimepiride [Amaryl] 8 mg PO DAILY 09/14/20 09/14/20 History Latanoprost/Pf [Latanoprost 0.005% 1 drop BOTH EYES HS 09/14/20 09/14/20 History Eye Drop] Metoprolol Succinate (ER) [Toprol 100 mg PO DAILY 09/14/20 09/14/20 History Xl] Nitrofurantoin Macrocrystal 100 mg PO DAILY 09/14/20 09/14/20 History [Macrodantin] OLANZapine [ZyPREXA] 5 mg PO DAILY 09/14/20 09/14/20 History Pioglitazone [Actos] 30 mg PO DAILY 09/14/20 09/14/20 History Simvastatin [Zocor] 20 mg PO DAILY 09/14/20 09/14/20 History amLODIPine [Norvasc] 5 mg PO DAILY 09/14/20 09/14/20 History cloNIDine HCL [Catapres] 0.1 mg PO BID 09/14/20 09/14/20 History Allergies Allergy/AdvReac Type Severity Reaction Status Date / Time No Known Allergies Allergy Verified 09/14/20 17:29 Surgical - Exam Vital Signs Temp Pulse Resp BP Pulse Ox 98.6 F 56 L 18 140/57 100 09/14/20 13:08 09/14/20 13:08 09/14/20 13:08 09/14/20 13:08 09/14/20 13:08 - General well developed, well nourished, no distress - Eyes PERRL - ENT no hearing loss - Neck trachea midline - Respiratory normal expansion, normal respiratory effort - Cardiovascular Rhythm: regular - Abdomen Abdomen: soft, non tender - Genitourinary Indwelling catheter - Neurologic normal sensation - Musculoskeletal normal posture - Psychiatric oriented to time, oriented to person, oriented to place Results - Labs 09/17/20 04:48 09/17/20 04:48 Abnormal Lab Results - Last 24 Hours (Table) 09/16/20 09/16/20 09/16/20 Range/Units 12:55 17:22 20:02 RBC (3.80-5.40) m/uL Hgb (11.4-16.0) gm/dL Hct (34.0-46.0) % Chloride (98-107) mmol/L BUN (7-17) mg/dL Creatinine (0.52-1.04) mg/dL Glucose (74-99) mg/dL POC Glucose (mg/dL) 169 H 226 H 158 H (75-99) mg/dL 09/17/20 09/17/20 09/17/20 Range/Units 02:24 04:48 04:48 RBC 2.78 L (3.80-5.40) m/uL Hgb 8.3 L (11.4-16.0) gm/dL Hct 25.3 L (34.0-46.0) % Chloride 110 H (98-107) mmol/L BUN 28 H (7-17) mg/dL Creatinine 1.49 H (0.52-1.04) mg/dL Glucose 118 H (74-99) mg/dL POC Glucose (mg/dL) 107 H (75-99) mg/dL 09/17/20 Range/Units 06:54 RBC (3.80-5.40) m/uL Hgb (11.4-16.0) gm/dL Hct (34.0-46.0) % Chloride (98-107) mmol/L BUN (7-17) mg/dL Creatinine (0.52-1.04) mg/dL Glucose (74-99) mg/dL POC Glucose (mg/dL) 158 H (75-99) mg/dL Microbiology - Last 24 Hours (Table) 09/14/20 17:30 Blood Culture - Preliminary Blood No Growth after 48 hours 09/14/20 18:30 Blood Culture - Preliminary Blood No Growth after 48 hours Diabetes panel 09/17/20 Range/Units 04:48 Sodium 141 (137-145) mmol/L Potassium 4.9 (3.5-5.1) mmol/L Chloride 110 H (98-107) mmol/L Carbon Dioxide 25 (22-30) mmol/L BUN 28 H (7-17) mg/dL Creatinine 1.49 H (0.52-1.04) mg/dL Glucose 118 H (74-99) mg/dL Calcium 9.7 (8.4-10.2) mg/dL Calcium panel 09/17/20 Range/Units 04:48 Calcium 9.7 (8.4-10.2) mg/dL Pituitary panel 09/17/20 Range/Units 04:48 Sodium 141 (137-145) mmol/L Potassium 4.9 (3.5-5.1) mmol/L Chloride 110 H (98-107) mmol/L Carbon Dioxide 25 (22-30) mmol/L BUN 28 H (7-17) mg/dL Creatinine 1.49 H (0.52-1.04) mg/dL Glucose 118 H (74-99) mg/dL Calcium 9.7 (8.4-10.2) mg/dL Adrenal panel 09/17/20 Range/Units 04:48 Sodium 141 (137-145) mmol/L Potassium 4.9 (3.5-5.1) mmol/L Chloride 110 H (98-107) mmol/L Carbon Dioxide 25 (22-30) mmol/L BUN 28 H (7-17) mg/dL Creatinine 1.49 H (0.52-1.04) mg/dL Glucose 118 H (74-99) mg/dL Calcium 9.7 (8.4-10.2) mg/dL Assessment and Plan Assessment: Impression: Urinary tract infection with urinary retention. Probably related. Diabetes. Multiple medical illnesses Recommendation:. It is difficult to know how much problem she is having urinating as she is not interested relaying to much information. It doesn't sound as if she's had too many problems prior to hospitalization with regards to that. I would leave the catheter indwelling until she is ambulatory other medical illnesses of cleared. Urine culture obtained and appropriate antibiotics would be given. She'll probably need a voiding trial with a postvoid residual prior to discharge.
[2020-09-17 12:08] LABS: Glucose,Whole Blood 161 mg/dL (75-99)
[2020-09-17] MEDS: SODIUM CHLORIDE 0.9% 1,000 ML IV SCH (12:18)
--- NOTE | 2020-09-17 14:20 | P.PN ---
Subjective Progress Note Date: 09/17/20 Hospital course: Patient is a 75 year female with a past medical history of hypertension, hyperlipidemia, dementia, and mood disorder whom presented to the hospital on 09/14/20 with a chief complaint of hypoglycemia and urinary hesitancy resulting in diagnosis of acute kidney injury and urinary tract infection. Patient admitted under our services for continued medical management.. Patient was found to have significant urinary retention greater than 800 mL postvoid residual. Mack catheter placed and urology consulted. Urine culture positive for gram-negative bacilli, Awaiting sensitivity report. Blood culture showing no growth after 48 hours. Continue IV antibiotic with Rocephin pending sensitivity report. Physical exam: Patient was seen and fully evaluated at the bedside. Patient appeared alert to self only and continues only answering questions with yes and fine. Denied any complaints of pain or discomfort at this time. Appeared comfortable. Vitals reviewed and stable. Mack catheter remains in place, will attempt voiding trial tomorrow. Case management spoke with family patient no longer to be discharged home as family is requesting rehab with placement at [facility] and we are currently awaiting insurance authorization., General: non toxic, no distress, appears at stated age Derm: warm, dry. Ulceration/Wound to left heel with dressing in place that is clean dry and intact. Head: atraumatic, normocephalic, symmetric Eyes: EOMI, no lid lag, anicteric sclera Mouth: no lip lesion, mucus membranes moist Cardiovascular: S1S2 reg, no murmur, positive posterior tibial pulse bilateral, Lungs: CTA bilateral, no rhonchi, no rales , no accessory muscle use Abdominal: soft, nontender to palpation, no guarding, no appreciable organomegaly Ext: no gross muscle atrophy, no edema, no contractures Neuro: CN II-XI grossly intact, no focal neuro deficits Psych: Alert, oriented, appropriate affect Plan of care: Acute kidney injury Urinary tract infection Urinary retention -Urine culture positive for gram-negative bacilli, awaiting sensitivity report. -Continue IV antibiotic Rocephin, pending culture sensitivity report. -Maintain Mack catheter secondary to post void residual greater than 800 mL's, will attempt voiding trial tomorrow. -Neurology following, appreciate further recommendations -Continue with gentle hydration and repeat a.m. labs to monitor renal function. Hypoglycemia, resolved -Monitor blood glucose levels closely Hypertension -Monitor vital signs and continue daily medication management. Hyperlipidemia -Continue daily medication regimen. Dementia with mood disorder -Continue daily medication regimen. -Provide safe and supportive care. CODE STATUS: Full code DVT prophylaxis: Heparin Discussed with: Patient and RN Anticipated discharge date: 1-2 days, Pending insurance authorization Anticipated discharge place: Patient to be discharged to [facility] pending insurance authorization A total of 45 minutes was spent on the care of this complex patient more than 50% of the time was spent in counseling and care coordination. Objective - Vital Signs Vital signs: Vital Signs Temp 98.8 F 09/17/20 05:05 Pulse 96 09/17/20 05:05 Resp 16 09/17/20 05:05 BP 145/75 09/17/20 05:05 Pulse Ox 98 09/17/20 05:05 Intake & Output 09/16/20 09/17/20 09/17/20 18:59 06:59 18:59 Intake Total 540 Output Total 071 002 3599 Balance -240 -800 -1000 Weight 60.781 kg Intake: Oral 540 Output: Urine 860 791 0176 Uretheral (Mack) 780 Other: Voiding Method Diaper Indwelling Catheter Indwelling Catheter - Labs CBC & Chem 7: 09/17/20 04:48 09/17/20 04:48 Labs: Abnormal Lab Results - Last 24 Hours (Table) 09/16/20 09/16/20 09/16/20 Range/Units 12:55 17:22 20:02 RBC (3.80-5.40) m/uL Hgb (11.4-16.0) gm/dL Hct (34.0-46.0) % Chloride (98-107) mmol/L BUN (7-17) mg/dL Creatinine (0.52-1.04) mg/dL Glucose (74-99) mg/dL POC Glucose (mg/dL) 169 H 226 H 158 H (75-99) mg/dL 09/17/20 09/17/20 09/17/20 Range/Units 02:24 04:48 04:48 RBC 2.78 L (3.80-5.40) m/uL Hgb 8.3 L (11.4-16.0) gm/dL Hct 25.3 L (34.0-46.0) % Chloride 110 H (98-107) mmol/L BUN 28 H (7-17) mg/dL Creatinine 1.49 H (0.52-1.04) mg/dL Glucose 118 H (74-99) mg/dL POC Glucose (mg/dL) 107 H (75-99) mg/dL 09/17/20 Range/Units 06:54 RBC (3.80-5.40) m/uL Hgb (11.4-16.0) gm/dL Hct (34.0-46.0) % Chloride (98-107) mmol/L BUN (7-17) mg/dL Creatinine (0.52-1.04) mg/dL Glucose (74-99) mg/dL POC Glucose (mg/dL) 158 H (75-99) mg/dL Microbiology - Last 24 Hours (Table) 09/14/20 17:30 Blood Culture - Preliminary Blood No Growth after 48 hours 09/14/20 18:30 Blood Culture - Preliminary Blood No Growth after 48 hours
[2020-09-17 17:41] LABS: Glucose,Whole Blood 246 mg/dL (75-99)
[2020-09-17 20:06] LABS: Glucose,Whole Blood 268 mg/dL (75-99)
[2020-09-17] MEDS: COLLAGENASE 250 UNIT/GM OINTMENT 30 GM TUBE TOPICAL SCH (21:12)
[2020-09-18] MEDS: HEPARIN SODIUM,PORCINE/PF 5,000 UNIT/0.5 ML SYRINGE SQ SCH ×3 (00:21→15:32)
[2020-09-18 01:33] LABS: Glucose,Whole Blood 98 mg/dL (75-99)
[2020-09-18] MEDS: SODIUM CHLORIDE 0.9% 1,000 ML IV SCH ×2 (02:17→15:31)
[2020-09-18 07:20] LABS: Glucose,Whole Blood 152 mg/dL (75-99)
[2020-09-18] MEDS: METOPROLOL SUCCINATE (ER) 100 MG TAB.ER.24H PO SCH (08:39)
[2020-09-18] MEDS: INSULIN ASPART (NovoLOG) 100 UNIT/ML VIAL SQ SCH ×2 (08:40→13:13)
[2020-09-18] MEDS: CHOLECALCIFEROL 25 MCG (1000 IU) TABLET PO SCH (08:40)
[2020-09-18] MEDS: ATORVASTATIN 10 MG TAB PO SCH (08:40)
[2020-09-18] MEDS: amLODIPine 5 MG TAB PO SCH (08:40)
[2020-09-18] MEDS: cloNIDine HCL 0.1 MG TAB PO SCH (08:41)
[2020-09-18] MEDS: DORZOLAMIDE-TIMOLOL 2.23%/0.68 10ML BTL BOTH EYES SCH (08:41)
[2020-09-18] MEDS: OLANZapine 5 MG TAB PO SCH (08:41)
[2020-09-18] MEDS: DONEPEZIL 5 MG TAB PO SCH (08:41)
[2020-09-18] MEDS: CLOPIDOGREL 75 MG TAB PO SCH (08:41)
--- NOTE | 2020-09-18 11:15 | P.DS ---
Providers Date of admission: 09/15/20 10:11 Expected date of discharge: 09/18/20 Attending physician: Cnadelaria Haile MD Consults: 09/16/20 15:07 Consult Physician Routine Consulting Provider: Reji Weston Consult Reason/Comments: retention, uti Do you want consulting provider notified?: Yes Primary care physician: Anand Flaherty MD Hospital Course: Discharge Diagnosis: Acute kidney injury, resolved Urinary tract infection Urinary retention Hypoglycemia, resolved Hypertension Hyperlipidemia Dementia with mood disorder Hospital Course: Patient is a 75 year female with a past medical history of hypertension, hyperlipidemia, dementia, and mood disorder whom presented to the hospital on 09/14/20 with a chief complaint of hypoglycemia and urinary hesitancy resulting in diagnosis of acute kidney injury and urinary tract infection. Patient admitted under our services for continued medical management.. Patient was found to have significant urinary retention greater than 800 mL postvoid residual. Turner catheter placed and urology consulted. Urine culture positive for gram-negative bacilli, Awaiting sensitivity report. Blood culture showing no growth after 48 hours. Continue IV antibiotic with Rocephin pending sensitivity report. Sensitivity report resulted positive for Proteus vulgaris, antibiotic changed to ciprofloxacin to provide coverage per sensitivity report. Patient being discharged to [facility] on 5 day course of ciprofloxacin and with Turner catheter in place secondary to continued urinary retention. Turner catheter was removed and Voiding challenge was attempted, patient continued to have postvoid residuals greater than 500 mL's. Turner catheter reinserted and patient to follow up outpatient with urology in 1 week once she has completed treatment for UTI. Physical exam: Patient was seen and fully evaluated at the bedside. Patient appeared alert to self only and continues only answering questions with yes and fine. Denied any complaints of pain or discomfort at this time. Appeared comfortable. Vitals reviewed and stable. Turner catheter remains in place, will attempt voiding trial tomorrow. Case management spoke with family patient no longer to be discharged home as family is requesting rehab with placement at [facility] and we are currently awaiting insurance authorization., General: non toxic, no distress, appears at stated age Derm: warm, dry. Ulceration/Wound to left heel with dressing in place that is clean dry and intact. Head: atraumatic, normocephalic, symmetric Eyes: EOMI, no lid lag, anicteric sclera Mouth: no lip lesion, mucus membranes moist Cardiovascular: S1S2 reg, no murmur, positive posterior tibial pulse bilateral, Lungs: CTA bilateral, no rhonchi, no rales , no accessory muscle use GI/: soft, nontender to palpation, no guarding, no appreciable organomegaly. Turner catheter in place. Ext: no gross muscle atrophy, no edema, no contractures Neuro: CN II-XI grossly intact, no focal neuro deficits Psych: Alert, oriented, appropriate affect A total of 45 minutes of time were spent preparing this complex discharge summary. Patient Condition at Discharge: Stable Plan - Discharge Summary Discharge Rx Participant: Yes New Discharge Prescriptions: New Ciprofloxacin HCl [Cipro] 500 mg PO Q12H 5 Days #10 tab Continue Latanoprost/Pf [Latanoprost 0.005% Eye Drop] 1 drop BOTH EYES HS Cholecalciferol (Vitamin D3) [Vitamin D3 (5000 Iu)] 125 mcg PO DAILY Collagenase [Santyl] 1 applic TOPICAL HS Clopidogrel [Plavix] 75 mg PO DAILY cloNIDine HCL [Catapres] 0.1 mg PO BID Pioglitazone [Actos] 30 mg PO DAILY OLANZapine [ZyPREXA] 5 mg PO DAILY Donepezil [Aricept] 5 mg PO DAILY Dorzolamide/Timolol/Pf [Dorzolamide 2%-Timolol 0.5%] 1 drop BOTH EYES BID Metoprolol Succinate (ER) [Toprol XL] 100 mg PO DAILY Glimepiride [Amaryl] 8 mg PO DAILY amLODIPine [Norvasc] 5 mg PO DAILY Simvastatin [Zocor] 20 mg PO DAILY Discontinued Nitrofurantoin Macrocrystal [Macrodantin] 100 mg PO DAILY Discharge Medication List Cholecalciferol (Vitamin D3) [Vitamin D3 (5000 Iu)] 125 mcg PO DAILY 09/14/20 [History] Clopidogrel [Plavix] 75 mg PO DAILY 09/14/20 [History] Collagenase [Santyl] 1 applic TOPICAL HS 09/14/20 [History] Donepezil [Aricept] 5 mg PO DAILY 09/14/20 [History] Dorzolamide/Timolol/Pf [Dorzolamide 2%-Timolol 0.5%] 1 drop BOTH EYES BID 09/14/20 [History] Glimepiride [Amaryl] 8 mg PO DAILY 09/14/20 [History] Latanoprost/Pf [Latanoprost 0.005% Eye Drop] 1 drop BOTH EYES HS 09/14/20 [History] Metoprolol Succinate (ER) [Toprol XL] 100 mg PO DAILY 09/14/20 [History] OLANZapine [ZyPREXA] 5 mg PO DAILY 09/14/20 [History] Pioglitazone [Actos] 30 mg PO DAILY 09/14/20 [History] Simvastatin [Zocor] 20 mg PO DAILY 09/14/20 [History] amLODIPine [Norvasc] 5 mg PO DAILY 09/14/20 [History] cloNIDine HCL [Catapres] 0.1 mg PO BID 09/14/20 [History] Ciprofloxacin HCl [Cipro] 500 mg PO Q12H 5 Days #10 tab 09/18/20 [Rx] Follow up Appointment(s)/Referral(s): [facility], [NON-STAFF] - 1-2 Days Anand Flaherty MD [Primary Care Provider] - 1-2 days (The office is closed please call and make follow up appointment.) [facility] [NON-STAFF] - As Needed Albert Cheng MD [STAFF PHYSICIAN] - 1 Week (Patient to follow-up with Dr. Cheng outpatient after antibiotic treatment for UTI is complete. Patient had turner catheter inserted inpatient at [facility] for retention. Attempt was made to discontinue turner prior to discharge, but it was reinserted again due to continued retention.) Discharge Disposition: TRANSFER TO SNF/ECF
[2020-09-18 11:37] LABS: Glucose,Whole Blood 214 mg/dL (75-99)
[2020-09-18 12:28] VITALS: BP 157/83; PULSE 84; RESP 18; TEMP 97
== END 2020-09-18 16:30 ==
LOC: EC 13:02 → 6NMEDSUR 16:52 → OBSVTOIN 09-15 10:11 → INTOOBSV 09-15 10:11 → 6NMEDSUR 09-15 10:39 → 5NMEDONC 09-15 12:38 → UNDODISIN 09-18 16:30
PROVIDERS: ADMIT Internal Medicine; ATTEND Internal Medicine
DX: N39.0 Urinary tract infection, site not specified (principal); N17.9 Acute kidney failure, unspecified; L97.422 Non-pressure chronic ulcer of left heel and midfoot with fat layer exposed; L97.522 Non-pressure chronic ulcer of other part of left foot with fat layer exposed; L89.322 Pressure ulcer of left buttock, stage 2; I10 Essential (primary) hypertension; E78.5 Hyperlipidemia, unspecified; E11.621 Type 2 diabetes mellitus with foot ulcer; E11.649 Type 2 diabetes mellitus with hypoglycemia without coma; F03.90 Unspecified dementia, unspecified severity, without behavioral disturbance, psychotic disturbance, mood disturbance, and anxiety; F39 Unspecified mood [affective] disorder; I25.10 Atherosclerotic heart disease of native coronary artery without angina pectoris; R39.11 Hesitancy of micturition; D64.9 Anemia, unspecified; E87.5 Hyperkalemia; B96.89 Other specified bacterial agents as the cause of diseases classified elsewhere; R63.0 Anorexia; Z91.19 Patient's noncompliance with other medical treatment and regimen; Z71.9 Counseling, unspecified; Z53.20 Procedure and treatment not carried out because of patient's decision for unspecified reasons; Z95.5 Presence of coronary angioplasty implant and graft; Z79.899 Other long term (current) drug therapy; Z98.890 Other specified postprocedural states; Z79.84 Long term (current) use of oral hypoglycemic drugs; Z79.02 Long term (current) use of antithrombotics/antiplatelets
CPT/HCPCS: 51702; 96361 ×3; 96366 ×2; 96372 ×5; 96376; 96365; 96367; 96375; 99285; 36415; 97530; 97162; 97535; 97166; 84206; 80053; 80048 ×2; 83605; 83735 ×2; 85025 ×2; 85027; 81001; 87040; 84681; 87086; 87077; 87186; 71046; G0378 ×6; J0696 ×5; J1644 ×4; 96374

== ENCOUNTER 2020-10-09 09:54 | Inpatient (IN) | payer MEDICARE ==
--- NOTE | 2020-10-09 10:16 | ED ---
General Adult HPI - General Chief complaint: Weakness Stated complaint: weakness Time Seen by Provider: 10/09/20 09:57 Source: patient, EMS, RN notes reviewed Mode of arrival: EMS Limitations: language barrier - History of Present Illness Initial comments: Patient is a pleasant 75-year-old female presenting to the emergency Department with general weakness. Patient is a poor historian. Patient's primary language is [place] Citizen. Family is in route to help translate. Patient is unable to specify any specific complaints. Patient admits to feeling somewhat weak and fatigued. Reportedly family had concerns for possible urinary tract infection. - Related Data Home Medications Medication Instructions Recorded Confirmed Cholecalciferol (Vitamin D3) 125 mcg PO DAILY 09/14/20 09/14/20 [Vitamin D3 (5000 Iu)] Clopidogrel [Plavix] 75 mg PO DAILY 09/14/20 09/14/20 Collagenase [Santyl] 1 applic TOPICAL HS 09/14/20 09/14/20 Donepezil [Aricept] 5 mg PO DAILY 09/14/20 09/14/20 Dorzolamide/Timolol/Pf 1 drop BOTH EYES BID 09/14/20 09/14/20 [Dorzolamide 2%-Timolol 0.5%] Glimepiride [Amaryl] 8 mg PO DAILY 09/14/20 09/14/20 Latanoprost/Pf [Latanoprost 0.005% 1 drop BOTH EYES HS 09/14/20 09/14/20 Eye Drop] Metoprolol Succinate (ER) [Toprol 100 mg PO DAILY 09/14/20 09/14/20 XL] OLANZapine [ZyPREXA] 5 mg PO DAILY 09/14/20 09/14/20 Pioglitazone [Actos] 30 mg PO DAILY 09/14/20 09/14/20 Simvastatin [Zocor] 20 mg PO DAILY 09/14/20 09/14/20 amLODIPine [Norvasc] 5 mg PO DAILY 09/14/20 09/14/20 cloNIDine HCL [Catapres] 0.1 mg PO BID 09/14/20 09/14/20 Previous Rx's Medication Instructions Recorded Ciprofloxacin HCl [Cipro] 500 mg PO Q12H 5 Days #10 tab 09/18/20 Allergies Allergy/AdvReac Type Severity Reaction Status Date / Time No Known Allergies Allergy Verified 09/19/20 08:59 Review of Systems ROS Statement: Those systems with pertinent positive or pertinent negative responses have been documented in the HPI. ROS Other: All systems not noted in ROS Statement are negative. Constitutional: Denies: fever Eyes: Denies: eye pain ENT: Denies: ear pain Respiratory: Denies: dyspnea Cardiovascular: Denies: chest pain Endocrine: Reports: fatigue Gastrointestinal: Denies: abdominal pain Genitourinary: Denies: dysuria Musculoskeletal: Denies: back pain Skin: Denies: rash Neurological: Denies: headache Past Medical History Past Medical History: Coronary Artery Disease (CAD), Diabetes Mellitus, Hyperlipidemia, Hypertension History of Any Multi-Drug Resistant Organisms: None Reported Past Surgical History: Heart Catheterization With Stent, Orthopedic Surgery Additional Past Surgical History / Comment(s): hip surgery, cataract sx, left ankle surgery 2020 Date of Last Stent Placement:: 2000 Past Psychological History: No Psychological Hx Reported Smoking Status: Never smoker Past Alcohol Use History: None Reported Past Drug Use History: None Reported General Exam Limitations: language barrier General appearance: alert, in no apparent distress Head exam: Present: normocephalic Eye exam: Present: normal appearance, PERRL, EOMI ENT exam: Present: normal oropharynx Neck exam: Present: normal inspection Respiratory exam: Present: normal lung sounds bilaterally Cardiovascular Exam: Present: tachycardia GI/Abdominal exam: Present: soft. Absent: tenderness Extremities exam: Present: normal inspection. Absent: pedal edema, calf tenderness Neurological exam: Present: alert Expanded Neurological exam: Present: protecting the airway Patient oriented to: Present: person, place Motor strength exam: RUE: 5, LUE: 5, RLE: 3, LLE: 3 Eye Response: (3) open to voice Motor Response: (6) obeys commands Verbal Response: (4) confused conversation Psychiatric exam: Present: flat affect Skin exam: Present: other (Stage II ulcer left heel without erythema) Course Vital Signs 10/09/20 10/09/20 10/09/20 09:59 11:34 11:54 Temperature 98.8 F 100.3 F H Pulse Rate 122 H 112 H Respiratory 18 16 Rate Blood Pressure 153/63 144/70 O2 Sat by Pulse 99 99 Oximetry EKG Findings - EKG Comments: EKG Findings:: 63-129. DE 122. QRS 96. QT 320. QTc 460. Left axis. Inferior Q waves. No acute ST change. PVC present. Medical Decision Making - Medical Decision Making Patient reevaluated and resting comfortably in bed. Patient and family updated on results and plan. Case discussed with Dr. Agrawal, who will admit covering hospital call. He requests holding antibiotics at this time secondary to unclear if infectious. There is a family history now of patient having diarrhea and concern for C. diff colitis. - Lab Data Result diagrams: 10/09/20 10:17 10/09/20 10:17 Lab Results 10/09/20 10/09/20 10/09/20 Range/Units 10:17 10:17 10:17 WBC 12.0 H (3.8-10.6) k/uL RBC 3.13 L (3.80-5.40) m/uL Hgb 9.2 L (11.4-16.0) gm/dL Hct 29.3 L (34.0-46.0) % MCV 93.6 (80.0-100.0) fL MCH 29.4 (25.0-35.0) pg MCHC 31.4 (31.0-37.0) g/dL RDW 14.2 (11.5-15.5) % Plt Count 415 (150-450) k/uL MPV 7.5 Neutrophils % 82 % Lymphocytes % 8 % Monocytes % 8 % Eosinophils % 0 % Basophils % 0 % Neutrophils # 9.8 H (1.3-7.7) k/uL Lymphocytes # 1.0 (1.0-4.8) k/uL Monocytes # 1.0 (0-1.0) k/uL Eosinophils # 0.0 (0-0.7) k/uL Basophils # 0.0 (0-0.2) k/uL Hypochromasia Slight PT 10.3 (9.0-12.0) sec INR 1.0 (<1.2) APTT 24.8 (22.0-30.0) sec Sodium (137-145) mmol/L Potassium (3.5-5.1) mmol/L Chloride (98-107) mmol/L Carbon Dioxide (22-30) mmol/L Anion Gap mmol/L BUN (7-17) mg/dL Creatinine (0.52-1.04) mg/dL Est GFR (CKD-EPI)AfAm (>60 ml/min/1.73 sqM) Est GFR (CKD-EPI)NonAf (>60 ml/min/1.73 sqM) Glucose (74-99) mg/dL POC Glucose (mg/dL) (75-99) mg/dL POC Glu Straight Tooth Gear Generator Operator ID Plasma Lactic Acid Lemuel (0.7-2.0) mmol/L Calcium (8.4-10.2) mg/dL Magnesium (1.6-2.3) mg/dL Total Bilirubin (0.2-1.3) mg/dL AST (14-36) U/L ALT (4-34) U/L Alkaline Phosphatase (38-126) U/L Troponin I (0.000-0.034) ng/mL Total Protein (6.3-8.2) g/dL Albumin (3.5-5.0) g/dL TSH (0.465-4.680) mIU/L Free T4 (0.78-2.19) ng/dL Urine Color Yellow Urine Appearance Cloudy H (Clear) Urine pH 5.0 (5.0-8.0) Ur Specific Godwin 1.014 (1.001-1.035) Urine Protein Trace H (Negative) Urine Glucose (UA) Negative (Negative) Urine Ketones Negative (Negative) Urine Blood Negative (Negative) Urine Nitrite Negative (Negative) Urine Bilirubin Negative (Negative) Urine Urobilinogen <2.0 (<2.0) mg/dL Ur Leukocyte Esterase Moderate H (Negative) Urine RBC 5 (0-5) /hpf Urine WBC 9 H (0-5) /hpf Ur Squamous Epith Cells 1 (0-4) /hpf Urine Bacteria Rare H (None) /hpf Urine Mucus Rare H (None) /hpf Urine Yeast (Budding) Few H (None) /hpf 10/09/20 10/09/20 10/09/20 Range/Units 10:17 10:17 10:17 WBC (3.8-10.6) k/uL RBC (3.80-5.40) m/uL Hgb (11.4-16.0) gm/dL Hct (34.0-46.0) % MCV (80.0-100.0) fL MCH (25.0-35.0) pg MCHC (31.0-37.0) g/dL RDW (11.5-15.5) % Plt Count (150-450) k/uL MPV Neutrophils % % Lymphocytes % % Monocytes % % Eosinophils % % Basophils % % Neutrophils # (1.3-7.7) k/uL Lymphocytes # (1.0-4.8) k/uL Monocytes # (0-1.0) k/uL Eosinophils # (0-0.7) k/uL Basophils # (0-0.2) k/uL Hypochromasia PT (9.0-12.0) sec INR (<1.2) APTT (22.0-30.0) sec Sodium 136 L (137-145) mmol/L Potassium 4.2 (3.5-5.1) mmol/L Chloride 107 (98-107) mmol/L Carbon Dioxide 19 L (22-30) mmol/L Anion Gap 10 mmol/L BUN 37 H (7-17) mg/dL Creatinine 1.68 H (0.52-1.04) mg/dL Est GFR (CKD-EPI)AfAm 34 (>60 ml/min/1.73 sqM) Est GFR (CKD-EPI)NonAf 30 (>60 ml/min/1.73 sqM) Glucose 28 L* (74-99) mg/dL POC Glucose (mg/dL) (75-99) mg/dL POC Glu Straight Tooth Gear Generator Operator ID Plasma Lactic Acid Lemuel 1.3 (0.7-2.0) mmol/L Calcium 9.8 (8.4-10.2) mg/dL Magnesium 2.0 (1.6-2.3) mg/dL Total Bilirubin 0.1 L (0.2-1.3) mg/dL AST 25 (14-36) U/L ALT 13 (4-34) U/L Alkaline Phosphatase 68 (38-126) U/L Troponin I <0.012 (0.000-0.034) ng/mL Total Protein 6.2 L (6.3-8.2) g/dL Albumin 3.1 L (3.5-5.0) g/dL TSH 2.680 (0.465-4.680) mIU/L Free T4 1.17 (0.78-2.19) ng/dL Urine Color Urine Appearance (Clear) Urine pH (5.0-8.0) Ur Specific Godwin (1.001-1.035) Urine Protein (Negative) Urine Glucose (UA) (Negative) Urine Ketones (Negative) Urine Blood (Negative) Urine Nitrite (Negative) Urine Bilirubin (Negative) Urine Urobilinogen (<2.0) mg/dL Ur Leukocyte Esterase (Negative) Urine RBC (0-5) /hpf Urine WBC (0-5) /hpf Ur Squamous Epith Cells (0-4) /hpf Urine Bacteria (None) /hpf Urine Mucus (None) /hpf Urine Yeast (Budding) (None) /hpf 10/09/20 Range/Units 11:28 WBC (3.8-10.6) k/uL RBC (3.80-5.40) m/uL Hgb (11.4-16.0) gm/dL Hct (34.0-46.0) % MCV (80.0-100.0) fL MCH (25.0-35.0) pg MCHC (31.0-37.0) g/dL RDW (11.5-15.5) % Plt Count (150-450) k/uL MPV Neutrophils % % Lymphocytes % % Monocytes % % Eosinophils % % Basophils % % Neutrophils # (1.3-7.7) k/uL Lymphocytes # (1.0-4.8) k/uL Monocytes # (0-1.0) k/uL Eosinophils # (0-0.7) k/uL Basophils # (0-0.2) k/uL Hypochromasia PT (9.0-12.0) sec INR (<1.2) APTT (22.0-30.0) sec Sodium (137-145) mmol/L Potassium (3.5-5.1) mmol/L Chloride (98-107) mmol/L Carbon Dioxide (22-30) mmol/L Anion Gap mmol/L BUN (7-17) mg/dL Creatinine (0.52-1.04) mg/dL Est GFR (CKD-EPI)AfAm (>60 ml/min/1.73 sqM) Est GFR (CKD-EPI)NonAf (>60 ml/min/1.73 sqM) Glucose (74-99) mg/dL POC Glucose (mg/dL) 144 H (75-99) mg/dL POC Glu Straight Tooth Gear Generator Operator ID Jas Cook Plasma Lactic Acid Lemuel (0.7-2.0) mmol/L Calcium (8.4-10.2) mg/dL Magnesium (1.6-2.3) mg/dL Total Bilirubin (0.2-1.3) mg/dL AST (14-36) U/L ALT (4-34) U/L Alkaline Phosphatase (38-126) U/L Troponin I (0.000-0.034) ng/mL Total Protein (6.3-8.2) g/dL Albumin (3.5-5.0) g/dL TSH (0.465-4.680) mIU/L Free T4 (0.78-2.19) ng/dL Urine Color Urine Appearance (Clear) Urine pH (5.0-8.0) Ur Specific Godwin (1.001-1.035) Urine Protein (Negative) Urine Glucose (UA) (Negative) Urine Ketones (Negative) Urine Blood (Negative) Urine Nitrite (Negative) Urine Bilirubin (Negative) Urine Urobilinogen (<2.0) mg/dL Ur Leukocyte Esterase (Negative) Urine RBC (0-5) /hpf Urine WBC (0-5) /hpf Ur Squamous Epith Cells (0-4) /hpf Urine Bacteria (None) /hpf Urine Mucus (None) /hpf Urine Yeast (Budding) (None) /hpf - Radiology Data Radiology results: report reviewed (Computed tomography scan of the brain shows atrophy), image reviewed (Chest x-ray shows right patchy infiltrate versus atelectasis) Disposition Clinical Impression: Fever, Hypoglycemia Disposition: ADMITTED IP TO THIS HOSP Is patient prescribed a controlled substance at d/c from ED?: No Referrals: Anand Flaherty MD [Primary Care Provider] - 1-2 days Decision Time: 12:07
[2020-10-09 10:32] LABS: Basophils % (A) 0 %; Eosinophils % (A) 0 %; HCT 29.3 % (34.0-46.0); HGB 9.2 gm/dL (11.4-16.0); Hypochromasia Slight; Lymphocytes % (A) 8 %; MCH 29.4 pg (25.0-35.0); MCHC 31.4 g/dL (31.0-37.0); MCV 93.6 fL (80.0-100.0); Mean Platelet Volume 7.5; Monocytes % (A) 8 %; Neutrophils # (A) 9.8 k/uL (1.3-7.7); Neutrophils % (A) 82 %; Platelet Count 415 k/uL (150-450); RBC 3.13 m/uL (3.80-5.40); RDW 14.2 % (11.5-15.5)
[2020-10-09] MEDS ORDERED: ACETAMINOPHEN TAB 500 MG TAB PO STA (10:36)
[2020-10-09 10:53] LABS: Albumin 3.1 g/dL (3.5-5.0); Calcium 9.8 mg/dL (8.4-10.2); Potassium 4.2 mmol/L (3.5-5.1); Total Bilirubin 0.1 mg/dL (0.2-1.3); Total Protein 6.2 g/dL (6.3-8.2)
[2020-10-09 10:57] LABS: Partial Thromboplastin Time 24.8 sec (22.0-30.0); Prothrombin Time 10.3 sec (9.0-12.0)
[2020-10-09 11:00] LABS: Appearance,Urine Cloudy (Clear); Bacteria,Urine Rare /hpf; Bilirubin,Urine Negative (Negative); Blood,Urine Negative (Negative); Budding Yeast,Urine Few /hpf; Color,Urine Yellow; Glucose,Urine (UA) Negative (Negative); Ketones,Urine Negative (Negative); Leukocyte Esterase,Urine Moderate (Negative); Mucus,Urine Rare /hpf; Nitrite,Urine Negative (Negative); Protein,Urine Trace (Negative); RBC,Urine 5 /hpf (0-5); Specific Gravity,Urine 1.014 (1.001-1.035); Squamous Epithelial Cell,Urine 1 /hpf (0-4); Urobilinogen,Urine <2.0 mg/dL (<2.0); WBC,Urine 9 /hpf (0-5)
[2020-10-09] MEDS: DEXTROSE 50% SYRINGE 50 ML IVP STA (11:08)
[2020-10-09 11:09] LABS: T4, Free (Free Thyroxine) 1.17 ng/dL (0.78-2.19)
--- NOTE | 2020-10-09 11:14 | XR ---
EXAMINATION TYPE: XR chest 2V DATE OF EXAM: 10/09/2020 COMPARISON: Chest x-ray September 14, 2020 HISTORY: Weakness. TECHNIQUE: Frontal and lateral views of the chest are obtained. FINDINGS: Low lung volumes with patchy right basilar opacity on current study. Left lung is clear. N o pleural effusion or pneumothorax seen bilaterally. The cardiac silhouette size is stable and mildly enlarged. The osseous structures are intact. IMPRESSION: Diminish inspiration with new patchy right basilar atelectasis and/or infiltrate.
[2020-10-09 11:30] LABS: Glucose,Whole Blood 144 mg/dL (75-99)
--- NOTE | 2020-10-09 11:39 | CT ---
EXAMINATION TYPE: CT brain wo con DATE OF EXAM: 10/09/2020 COMPARISON: None INDICATION: Weakness. DLP: 1087.4 mGycm, Automated exposure control for dose reduction was used. CONTRAST: None CT of the brain is performed utilizing 3 mm thick sections through the posterior fossa and 3 mm thick sections through the remaining calvarium. Study is performed within 24 hours of arrival to the hosp ital. No abnormal hyperdensity is present to suggest an acute intracranial hemorrhage. No mass lesion is evident. No acute infarcts are evident. Periventricular white matter hypodensity is present, likely on the bas is of chronic white matter ischemic changes. Prior lacunar infarct in the right german radiata. Ventricles and sulci are prominent for the patient age. Note is made of vascular calcification withi n the internal carotid arteries. There is a retention cyst within the right maxillary sinus. Ethmoid air cell mucosal thickening is pr esent. Remaining paranasal sinuses are clear. Mastoid air cells are clear. IMPRESSIONS: 1. Atrophy with periventricular white matter ischemic-type changes. 2. No acute intracranial process.
[2020-10-09] MEDS ORDERED: NALOXONE 0.4 MG/ML 1 ML VIAL IV PRN (12:07)
[2020-10-09] MEDS ORDERED: SODIUM CHLORIDE 0.9% 1,000 ML IV SCH (12:15)
[2020-10-09] MEDS: ACETAMINOPHEN TAB 325 MG TAB PO PRN (14:17)
[2020-10-09 14:36] LABS: Glucose,Whole Blood 33 mg/dL (75-99)
[2020-10-09] MEDS ORDERED: DEXTROSE 50% SYRINGE 50 ML IVP STA (14:40)
[2020-10-09] MEDS ORDERED: DEXTROSE 5%-0.9% NACL 1,000 ML IV SCH (14:45)
[2020-10-09 15:13] LABS: Glucose,Whole Blood 144 mg/dL (75-99)
[2020-10-09] MEDS: DEXTROSE 10% IN WATER 1,000 ML with SODIUM CHLORIDE 4MEQ/ML VIAL 153.8 MEQ IV SCH (15:27)
--- NOTE | 2020-10-09 15:49 | P.HPIM ---
History of Present Illness Patient is a pleasant 75-year-old female came in with complains of diarrhea high-grade fevers generalized weakness and tiredness. Patient recently completed antibiotic therapy with ciprofloxacin about a week ago she was treated for urinary tract infection patient presented with urinary retention during her last hospitalization. Patient does have a language barrier which is Lao. Able to get good history because daughter was present at the bedside. Patient was also significantly hypoglycemic patient is on Actos as well as a sulfonylurea for diabetes management. Her last hemoglobin A1c was from September 21 which was 6.3 patient appears to have chronic kidney disease with baseline creatinine of around 1.4 present creatinine is 1.68. Patient does have metabolic acidosis, which appears to be mostly nonambulatory gap. Chest x-ray did not show any significant abnormality, a year is mildly abnormal but no symptoms of a urinary tract infection, no evidence of UTI REVIEW OF SYSTEMS: CONSTITUTIONAL: As mentioned in HPI HEENT: No recent visual problems or hearing problems. Denied any sore throat. CARDIOVASCULAR: No chest pain, orthopnea, PND, no palpitations, no syncope. PULMONARY: No shortness of breath, no cough, no hemoptysis. GASTROINTESTINAL: As mentioned in HPI NEUROLOGICAL: No headaches, no weakness, no numbness. HEMATOLOGICAL: Denies any bleeding or petechiae. GENITOURINARY: Denies any burning micturition, frequency, or urgency. MUSCULOSKELETAL/RHEUMATOLOGICAL: Denies any joint pain, swelling, or any muscle pain. ENDOCRINE: Denies any polyuria or polydipsia. The rest of the 14-point review of systems is negative. PHYSICAL EXAMINATION: GENERAL: The patient is alert and oriented x3, not in any acute distress. Well developed, well nourished. HEENT: Pupils are round and equally reacting to light. EOMI. No scleral icterus. No conjunctival pallor. Normocephalic, atraumatic. No pharyngeal erythema. No thyromegaly. CARDIOVASCULAR: S1 and S2 present. No murmurs, rubs, or gallops. PULMONARY: Chest is clear to auscultation, no wheezing or crackles. ABDOMEN: Soft, nontender, nondistended, normoactive bowel sounds. No palpable organomegaly. MUSCULOSKELETAL: No joint swelling or deformity. EXTREMITIES: No cyanosis, clubbing, or pedal edema. NEUROLOGICAL: Gross neurological examination did not reveal any focal deficits. SKIN: No rashes. Assessment and plan -Sepsis: Secondary to C. diff colitis, patient was started on oral vancomycin. Patient is tachycardic, this may be related to sepsis can be reflux as patient takes metoprolol and clonidine. Patient will restart back on metoprolol considering the sepsis patient will not be started on clonidine at this time patient was started on IV fluids normal saline at 75 mL per hour and D5 normal saline at 50 mL per hour. -Severe hyperglycemia hold off oral hypoglycemic agents D5 as mentioned above -Carotid artery disease -Hypertension patient was resumed on beta milli and amlodipine holding of clonidine -B diabetes mellitus -Diabetic nephropathy chronic kidney disease stage III baseline creatinine of around 1.4 DVT prophylaxis: Subcutaneous heparin Past Medical History Past Medical History: Coronary Artery Disease (CAD), Diabetes Mellitus, Hyperlipidemia, Hypertension History of Any Multi-Drug Resistant Organisms: None Reported Past Surgical History: Heart Catheterization With Stent, Orthopedic Surgery Additional Past Surgical History / Comment(s): hip surgery, cataract sx, left ankle surgery 2020 Date of Last Stent Placement:: 2000 Past Psychological History: No Psychological Hx Reported Smoking Status: Never smoker Past Alcohol Use History: None Reported Past Drug Use History: None Reported Medications and Allergies Home Medications Medication Instructions Recorded Confirmed Type Clopidogrel [Plavix] 75 mg PO DAILY 09/14/20 10/09/20 History Collagenase [Santyl] 1 applic TOPICAL HS 09/14/20 10/09/20 History Donepezil [Aricept] 5 mg PO DAILY 09/14/20 10/09/20 History Glimepiride [Amaryl] 8 mg PO DAILY 09/14/20 10/09/20 History Latanoprost/Pf [Latanoprost 0.005% 1 drop BOTH EYES HS 09/14/20 10/09/20 History Eye Drop] Metoprolol Succinate (ER) [Toprol 100 mg PO DAILY 09/14/20 10/09/20 History XL] OLANZapine [ZyPREXA] 5 mg PO DAILY 09/14/20 10/09/20 History Pioglitazone [Actos] 30 mg PO DAILY 09/14/20 10/09/20 History Simvastatin [Zocor] 20 mg PO DAILY 09/14/20 10/09/20 History amLODIPine [Norvasc] 5 mg PO DAILY 09/14/20 10/09/20 History cloNIDine HCL [Catapres] 0.1 mg PO BID 09/14/20 10/09/20 History Cholecalciferol [Vitamin D3 (25 25 mcg PO DAILY 10/09/20 10/09/20 History Mcg = 1000 Iu)] Dorzolamide 2% [Trusopt 2%] 1 drop BOTH EYES BID 10/09/20 10/09/20 History Fluconazole [Diflucan] 100 mg PO DAILY 10/09/20 10/09/20 History Allergies Allergy/AdvReac Type Severity Reaction Status Date / Time No Known Allergies Allergy Verified 09/19/20 08:59 Physical Exam Vitals: Vital Signs Temp Pulse Resp BP Pulse Ox 10/09/20 15:34 99.3 F 98 16 149/72 97 10/09/20 15:30 99.3 F 98 16 149/72 97 10/09/20 14:00 100.6 F H 116 H 16 147/62 97 10/09/20 13:00 116 H 16 129/68 97 10/09/20 12:57 100.3 F H 110 H 16 128/55 97 10/09/20 11:54 100.3 F H 10/09/20 11:34 112 H 16 144/70 99 10/09/20 10:00 101.1 F H 10/09/20 09:59 98.8 F 122 H 18 153/63 99 Intake and Output 10/09/20 10/09/20 10/09/20 06:59 14:59 22:59 Other: Weight 66.769 kg Results CBC & Chem 7: 10/09/20 10:17 10/09/20 10:17 Labs: Abnormal Lab Results - Last 24 Hours (Table) 10/09/20 10/09/20 10/09/20 Range/Units 10:17 10:17 10:17 WBC 12.0 H (3.8-10.6) k/uL RBC 3.13 L (3.80-5.40) m/uL Hgb 9.2 L (11.4-16.0) gm/dL Hct 29.3 L (34.0-46.0) % Neutrophils # 9.8 H (1.3-7.7) k/uL Sodium 136 L (137-145) mmol/L Carbon Dioxide 19 L (22-30) mmol/L BUN 37 H (7-17) mg/dL Creatinine 1.68 H (0.52-1.04) mg/dL Glucose 28 L* (74-99) mg/dL POC Glucose (mg/dL) (75-99) mg/dL Total Bilirubin 0.1 L (0.2-1.3) mg/dL Total Protein 6.2 L (6.3-8.2) g/dL Albumin 3.1 L (3.5-5.0) g/dL Free T3 pg/mL 2.3 L (2.8-5.3) pg/ml Urine Appearance Cloudy H (Clear) Urine Protein Trace H (Negative) Ur Leukocyte Esterase Moderate H (Negative) Urine WBC 9 H (0-5) /hpf Urine Bacteria Rare H (None) /hpf Urine Mucus Rare H (None) /hpf Urine Yeast (Budding) Few H (None) /hpf C. difficile (EIA) Intrp (Negative) 10/09/20 10/09/20 10/09/20 Range/Units 11:28 12:36 14:35 WBC (3.8-10.6) k/uL RBC (3.80-5.40) m/uL Hgb (11.4-16.0) gm/dL Hct (34.0-46.0) % Neutrophils # (1.3-7.7) k/uL Sodium (137-145) mmol/L Carbon Dioxide (22-30) mmol/L BUN (7-17) mg/dL Creatinine (0.52-1.04) mg/dL Glucose (74-99) mg/dL POC Glucose (mg/dL) 144 H 33 L (75-99) mg/dL Total Bilirubin (0.2-1.3) mg/dL Total Protein (6.3-8.2) g/dL Albumin (3.5-5.0) g/dL Free T3 pg/mL (2.8-5.3) pg/ml Urine Appearance (Clear) Urine Protein (Negative) Ur Leukocyte Esterase (Negative) Urine WBC (0-5) /hpf Urine Bacteria (None) /hpf Urine Mucus (None) /hpf Urine Yeast (Budding) (None) /hpf C. difficile (EIA) Intrp Positive A (Negative) 10/09/20 Range/Units 15:12 WBC (3.8-10.6) k/uL RBC (3.80-5.40) m/uL Hgb (11.4-16.0) gm/dL Hct (34.0-46.0) % Neutrophils # (1.3-7.7) k/uL Sodium (137-145) mmol/L Carbon Dioxide (22-30) mmol/L BUN (7-17) mg/dL Creatinine (0.52-1.04) mg/dL Glucose (74-99) mg/dL POC Glucose (mg/dL) 144 H (75-99) mg/dL Total Bilirubin (0.2-1.3) mg/dL Total Protein (6.3-8.2) g/dL Albumin (3.5-5.0) g/dL Free T3 pg/mL (2.8-5.3) pg/ml Urine Appearance (Clear) Urine Protein (Negative) Ur Leukocyte Esterase (Negative) Urine WBC (0-5) /hpf Urine Bacteria (None) /hpf Urine Mucus (None) /hpf Urine Yeast (Budding) (None) /hpf C. difficile (EIA) Intrp (Negative) Microbiology - Last 24 Hours (Table) 10/09/20 10:14 Urine Culture - Preliminary Urine,Catheterized
[2020-10-09 16:37] LABS: Glucose,Whole Blood 139 mg/dL (75-99)
[2020-10-09] MEDS: METOPROLOL SUCCINATE (ER) 100 MG TAB.ER.24H PO SCH (17:07)
[2020-10-09] MEDS: VANCOMYCIN ORAL SOLUTION 250 MG/5 ML BOTTLE PO SCH ×2 (17:08→21:27)
[2020-10-09] MEDS ORDERED: VANCOMYCIN ORAL SOLUTION 250 MG/5 ML BOTTLE PO SCH (18:00)
[2020-10-09] MEDS: LATANOPROST 0.005% OPHTH DROPS 2.5 ML BTL BOTH EYES SCH (19:33)
[2020-10-09] MEDS: HEPARIN SODIUM,PORCINE/PF 5,000 UNIT/0.5 ML SYRINGE SQ SCH (19:33)
[2020-10-09 19:52] LABS: Glucose,Whole Blood 101 mg/dL (75-99)
[2020-10-09] MEDS ORDERED: DORZOLAMIDE HCL 2% DROPS 10 ML BTL BOTH EYES SCH (21:00)
[2020-10-09] MEDS ORDERED: COLLAGENASE 250 UNIT/GM OINTMENT 30 GM TUBE TOPICAL SCH (21:00)
[2020-10-09] MEDS: ONDANSETRON 4 MG/2 ML VIAL IVP PRN (21:27)
--- NOTE | 2020-10-10 01:04 | CONS ---
CONSULTATION DATE OF SERVICE: 10/09/2020. REASON FOR CONSULTATION: C. dif and left heel wound. HISTORY OF PRESENT ILLNESS: The patient is a 75-year-old female who apparently recently did have a the patient did have a for 3 weeks at [facility] and when the cast was removed, the patient was noticed to have ulceration of the left posterior heel area. Currently treated at [facility]. Patient also recently admitted to the hospital for urinary tract infection and was treated with IV Rocephin. The patient has now been brought back to the [facility] ER by the family with concern for generalized weakness that has been getting worse for the last few days. The patient also having diarrhea for more than a week and a half. She has multiple loose stools but no blood or mucus in the stools. The patient denies having any nausea or vomiting and denies any burning or frequency of urine. With these symptoms, the patient was evaluated by the ER physician. On arrival to the ER, the patient did have a fever of 101 degrees Fahrenheit. The patient was tachycardic. [place]row PCR was negative. The patient did have a white count of 12.1 with a left shift. BUN and creatinine mildly elevated. Liver enzymes are normal. Urine is not significantly positive. Stool for C difficile came back positive. The patient started on oral vancomycin. She did have a wound culture obtained from the left heel wound. This patient currently no symptoms as are as pain, concern to the left heel wound area. Infectious Disease was consulted for further. REVIEW OF SYSTEMS: Positive points have been mentioned in HPI. Rest of the systems are negative. PAST MEDICAL HISTORY: Coronary artery disease, diabetes mellitus, hyperlipidemia, hypertension. PAST SURGICAL HISTORY: with stent, left ankle surgery. SOCIAL HISTORY: No history of smoking, drinking or drug use. FAMILY HISTORY: No pertinent findings noticed. ALLERGIES: No known drug allergies. MEDICATIONS: Include the patient is currently on vancomycin 250 q.6 hours. The patient is on Zofran, Zyprexa, Narcan, Toprol-XL, heparin subcu, Aricept, Plavix, vitamin D3, Lipitor, Norvasc, Tylenol. PHYSICAL EXAMINATION: Her blood pressure is 161/70 with a pulse of 140. Temperature 99.6. She is 98% on room air. GENERAL DESCRIPTION is an elderly female lying in bed in no distress. No tachypnea or accessory muscles of respiration use. HEENT: Examination shows pallor. No scleral icterus. Oral mucous membranes dry. NECK: Trachea central. No thyromegaly. LUNGS unlabored breathing. Clear to auscultation anteriorly. HEART S1, S2. Regular rate and rhythm. ABDOMEN: Soft, no tenderness. No guarding or rigidity. EXTREMITIES: No edema of the feet. Examination left posterior heel wound with minimal slough tissue. No surrounding swelling, redness or any drainage. NEUROLOGICAL: Patient is awake, alert, oriented times three. Mood and affect normal. LABS: Hemoglobin 9.8, white count 12, BUN of 37, creatinine 1.6. Urine culture has been normal. Liver enzymes normal. Urine is not significantly positive. Stool for C difficile is positive. DIAGNOSTIC IMPRESSION AND PLAN: 1. Patient admitted to the hospital with sepsis. This patient did have a fever, elevated white count, tachycardia and this patient did have significant diarrhea. Source is acute C difficile colitis in this patient who antibiotic for urinary tract infection. 2. Left posterior heel wound, pressure ulcer stage III with no evidence of any cellulitis. PLAN: 1. Vancomycin 250 mg p.o. q.6 hours. 2. Santyl to the left posterior heel wound and keep the area off the pressure. 3. Patient advised to increase her probiotic and yogurt intake. 4. We will follow on clinical condition and culture to further adjust medication if needed. Thank you for this consultation. We will follow this patient along with you. MMODL / IJN: [id number] /
[2020-10-10 02:29] LABS: Glucose,Whole Blood 22 mg/dL (75-99)
[2020-10-10] MEDS ORDERED: GLUCAGON 1 MG/ML VIAL ONE (02:30)
[2020-10-10] MEDS: DEXTROSE 50% SYRINGE 50 ML IVP STA (02:30)
[2020-10-10] MEDS ORDERED: GLUCAGON 1 MG/ML VIAL IM STA (02:33)
[2020-10-10] MEDS: DEXTROSE 10% IN WATER 1,000 ML with SODIUM CHLORIDE 4MEQ/ML VIAL 153.8 MEQ IV SCH ×2 (02:38→11:13)
[2020-10-10 02:39] LABS: Glucose,Whole Blood 160 mg/dL (75-99)
--- NOTE | 2020-10-10 02:44 | P.EN ---
A team called on this patient for hypoglycemia . her blood sugar was 22, with AMS. patient lost IV access, so IM glucagon given patient starting to respond better, her blood sugar went up to 160 patient regained IV access, and resumed D10% 125 cc per hour IV check blood sugar q 1 hr X6 continue management and monitoring on medical floor
[2020-10-10 03:39] LABS: Glucose,Whole Blood 194 mg/dL (75-99)
[2020-10-10 04:37] LABS: Glucose,Whole Blood 250 mg/dL (75-99)
[2020-10-10 05:40] LABS: Glucose,Whole Blood 272 mg/dL (75-99)
[2020-10-10] MEDS: ACETAMINOPHEN TAB 325 MG TAB PO PRN (05:52)
[2020-10-10 06:18] LABS: Glucose,Whole Blood 287 mg/dL (75-99)
[2020-10-10 06:49] LABS: Glucose,Whole Blood 271 mg/dL (75-99)
[2020-10-10 08:06] LABS: Glucose,Whole Blood 282 mg/dL (75-99)
[2020-10-10] MEDS ORDERED: METOPROLOL SUCCINATE (ER) 100 MG TAB.ER.24H PO SCH (09:00)
[2020-10-10 09:08] LABS: Glucose,Whole Blood 308 mg/dL (75-99)
[2020-10-10] MEDS: amLODIPine 5 MG TAB PO SCH (09:44)
[2020-10-10] MEDS: OLANZapine 5 MG TAB PO SCH (09:44)
[2020-10-10] MEDS: ATORVASTATIN 10 MG TAB PO SCH (09:44)
[2020-10-10] MEDS: DONEPEZIL 5 MG TAB PO SCH (09:44)
[2020-10-10] MEDS: CLOPIDOGREL 75 MG TAB PO SCH (09:44)
[2020-10-10] MEDS: CHOLECALCIFEROL 25 MCG (1000 IU) TABLET PO SCH (09:45)
[2020-10-10] MEDS: VANCOMYCIN ORAL SOLUTION 250 MG/5 ML BOTTLE PO SCH ×4 (09:45→23:07)
[2020-10-10] MEDS: HEPARIN SODIUM,PORCINE/PF 5,000 UNIT/0.5 ML SYRINGE SQ SCH ×2 (09:45→23:07)
[2020-10-10] MEDS: METOPROLOL SUCCINATE (ER) 100 MG TAB.ER.24H PO SCH (09:57)
[2020-10-10 10:19] LABS: Glucose,Whole Blood 278 mg/dL (75-99)
--- NOTE | 2020-10-10 10:43 | P.CONS ---
History of Present Illness - Reason for Consult Consult date: 10/10/20 Wound care - History of Present Illness This is a 75-year-old pleasant female known to the wound care center with nonhealing pressure ulceration to the left heel and left buttocks. Patient has history of diabetes. Ulceration dressings have been Santyl. Left posterior calcaneus ulceration is related to a surgical intervention post fall. The ulceration was closed via sutures however once the sutures were removed to the ulceration opened resulting in an open ulceration. The wound is currently classified as a partial thickness wound with etiology of open surgical wound is located on the left posterior calcaneus. The wound measures approximately 1.5 x 1.2 x 0.1 cm. There is no tunneling or undermining noted. There is no present drainage. Wound edges are distinct with the outline attached to the wound base. There is no granulation noted. Large amount of necrotic tissue within the wound bed including eschar and slough. Periwound exhibits dry scaly in erythema. The left lateral gluteus ulceration is classified as a stage II pressure ulcer. The wound measures 0.7 x 0.6 x 0.1 cm there is fat layer exposure. There is no tunneling or undermining noted. There is a small amount of serous drainage noted. The wound margin is distinct with outline attached to the wound base. There is a large amount of granulation seen within the wound bed. Small amount of necrotic tissue within the wound bed that includes adherent Slough. Review Of Systems: Constitutional: No fever, no chills, no night sweats. No weight change. No weakness, fatigue or lethargy. No daytime sleepiness. Integumentary:reports wounds, no lesions. No rash or pruritus. No unusual bruising. No change in hair or nails. Physical exam: General Appearance: Alert, cooperative, no distress, appears stated age. Skin: See HPI all other Skin color, texture, tugor normal, no rashes or lesions. Neurologic: Alert oriented x3 Assessment: 1. Pressure ulcer of left heel stage II 2. Pressure ulcer of left gluteus stage II 3.Type 2 diabetes with foot ulcer Plan: 1. Left calcaneus: Apply Santyl, saline moistened gauze, dry gauze, rolled gauze secured with paper tape. Change daily. Utilizing foam heel protectors. Patient will return to the wound care center next at 1:15. 2. Left gluteus: Apply Santyl, saline moistened gauze, border foam change daily. Turn patient every 2 hours. Thank you for the consultation any questions please contact the wound care center DNP note has been reviewed and discussed with Dr. Kim and the impression and plan of care has been directed as dictated. Past Medical History Past Medical History: Coronary Artery Disease (CAD), Diabetes Mellitus, Hyperlipidemia, Hypertension History of Any Multi-Drug Resistant Organisms: None Reported Past Surgical History: Cholecystectomy, Heart Catheterization With Stent, Orthopedic Surgery Additional Past Surgical History / Comment(s): hip surgery, cataract sx, left ankle surgery 2020 Date of Last Stent Placement:: 2000 Past Psychological History: No Psychological Hx Reported Smoking Status: Never smoker Past Alcohol Use History: None Reported Past Drug Use History: None Reported Medications and Allergies Home Medications Medication Instructions Recorded Confirmed Type Clopidogrel [Plavix] 75 mg PO DAILY 09/14/20 10/09/20 History Collagenase [Santyl] 1 applic TOPICAL HS 09/14/20 10/09/20 History Donepezil [Aricept] 5 mg PO DAILY 09/14/20 10/09/20 History Glimepiride [Amaryl] 8 mg PO DAILY 09/14/20 10/09/20 History Latanoprost/Pf [Latanoprost 0.005% 1 drop BOTH EYES HS 09/14/20 10/09/20 History Eye Drop] Metoprolol Succinate (ER) [Toprol 100 mg PO DAILY 09/14/20 10/09/20 History XL] OLANZapine [ZyPREXA] 5 mg PO DAILY 09/14/20 10/09/20 History Pioglitazone [Actos] 30 mg PO DAILY 09/14/20 10/09/20 History Simvastatin [Zocor] 20 mg PO DAILY 09/14/20 10/09/20 History amLODIPine [Norvasc] 5 mg PO DAILY 09/14/20 10/09/20 History cloNIDine HCL [Catapres] 0.1 mg PO BID 09/14/20 10/09/20 History Cholecalciferol [Vitamin D3 (25 25 mcg PO DAILY 10/09/20 10/09/20 History Mcg = 1000 Iu)] Fluconazole [Diflucan] 100 mg PO DAILY 10/09/20 10/09/20 History Allergies Allergy/AdvReac Type Severity Reaction Status Date / Time No Known Allergies Allergy Verified 09/19/20 08:59 Physical Exam Vitals: Vital Signs Temp Pulse Pulse Resp BP BP Pulse Ox 10/10/20 08:22 98.6 F 105 H 15 131/69 95 10/10/20 02:00 99.3 F 107 H 16 130/53 96 10/09/20 19:28 99.6 F 114 H 16 161/70 98 10/09/20 16:10 99 10/09/20 15:47 98.5 F 99 17 164/70 99 10/09/20 15:34 99.3 F 98 16 149/72 97 10/09/20 15:30 99.3 F 98 16 149/72 97 10/09/20 14:00 100.6 F H 116 H 16 147/62 97 10/09/20 13:00 116 H 16 129/68 97 10/09/20 12:57 100.3 F H 110 H 16 128/55 97 10/09/20 11:54 100.3 F H 10/09/20 11:34 112 H 16 144/70 99 Intake and Output 10/09/20 10/10/20 10/10/20 22:59 06:59 14:59 Intake Total 1375 Balance 1375 Intake: Intake, IV Titration 1375 Amount Dextrose 10% in Water 1, 1375 000 ml @ 125 mls/hr IV . Q8H19M ANNMARIE with Sodium Chloride 4Meq/ml Vial 153 .8 meq Rx#:[id number] Other: Voiding Method Diaper Weight 66.769 kg Results CBC & Chem 7: 10/09/20 10:17 10/09/20 10:17 Labs: Abnormal Lab Results - Last 24 Hours (Table) 10/09/20 10/09/20 10/09/20 Range/Units 10:17 10:17 11:28 Sodium 136 L (137-145) mmol/L Carbon Dioxide 19 L (22-30) mmol/L BUN 37 H (7-17) mg/dL Creatinine 1.68 H (0.52-1.04) mg/dL Glucose 28 L* (74-99) mg/dL POC Glucose (mg/dL) 144 H (75-99) mg/dL Total Bilirubin 0.1 L (0.2-1.3) mg/dL Total Protein 6.2 L (6.3-8.2) g/dL Albumin 3.1 L (3.5-5.0) g/dL Free T3 pg/mL 2.3 L (2.8-5.3) pg/ml Urine Appearance Cloudy H (Clear) Urine Protein Trace H (Negative) Ur Leukocyte Esterase Moderate H (Negative) Urine WBC 9 H (0-5) /hpf Urine Bacteria Rare H (None) /hpf Urine Mucus Rare H (None) /hpf Urine Yeast (Budding) Few H (None) /hpf C. difficile (EIA) Intrp (Negative) 10/09/20 10/09/20 10/09/20 Range/Units 12:36 14:35 15:12 Sodium (137-145) mmol/L Carbon Dioxide (22-30) mmol/L BUN (7-17) mg/dL Creatinine (0.52-1.04) mg/dL Glucose (74-99) mg/dL POC Glucose (mg/dL) 33 L 144 H (75-99) mg/dL Total Bilirubin (0.2-1.3) mg/dL Total Protein (6.3-8.2) g/dL Albumin (3.5-5.0) g/dL Free T3 pg/mL (2.8-5.3) pg/ml Urine Appearance (Clear) Urine Protein (Negative) Ur Leukocyte Esterase (Negative) Urine WBC (0-5) /hpf Urine Bacteria (None) /hpf Urine Mucus (None) /hpf Urine Yeast (Budding) (None) /hpf C. difficile (EIA) Intrp Positive A (Negative) 10/09/20 10/09/20 10/10/20 Range/Units 16:35 19:50 02:26 Sodium (137-145) mmol/L Carbon Dioxide (22-30) mmol/L BUN (7-17) mg/dL Creatinine (0.52-1.04) mg/dL Glucose (74-99) mg/dL POC Glucose (mg/dL) 139 H 101 H 22 L (75-99) mg/dL Total Bilirubin (0.2-1.3) mg/dL Total Protein (6.3-8.2) g/dL Albumin (3.5-5.0) g/dL Free T3 pg/mL (2.8-5.3) pg/ml Urine Appearance (Clear) Urine Protein (Negative) Ur Leukocyte Esterase (Negative) Urine WBC (0-5) /hpf Urine Bacteria (None) /hpf Urine Mucus (None) /hpf Urine Yeast (Budding) (None) /hpf C. difficile (EIA) Intrp (Negative) 10/10/20 10/10/20 10/10/20 Range/Units 02:38 03:38 04:27 Sodium (137-145) mmol/L Carbon Dioxide (22-30) mmol/L BUN (7-17) mg/dL Creatinine (0.52-1.04) mg/dL Glucose (74-99) mg/dL POC Glucose (mg/dL) 160 H 194 H 250 H (75-99) mg/dL Total Bilirubin (0.2-1.3) mg/dL Total Protein (6.3-8.2) g/dL Albumin (3.5-5.0) g/dL Free T3 pg/mL (2.8-5.3) pg/ml Urine Appearance (Clear) Urine Protein (Negative) Ur Leukocyte Esterase (Negative) Urine WBC (0-5) /hpf Urine Bacteria (None) /hpf Urine Mucus (None) /hpf Urine Yeast (Budding) (None) /hpf C. difficile (EIA) Intrp (Negative) 10/10/20 10/10/20 10/10/20 Range/Units 05:38 06:16 06:47 Sodium (137-145) mmol/L Carbon Dioxide (22-30) mmol/L BUN (7-17) mg/dL Creatinine (0.52-1.04) mg/dL Glucose (74-99) mg/dL POC Glucose (mg/dL) 272 H 287 H 271 H (75-99) mg/dL Total Bilirubin (0.2-1.3) mg/dL Total Protein (6.3-8.2) g/dL Albumin (3.5-5.0) g/dL Free T3 pg/mL (2.8-5.3) pg/ml Urine Appearance (Clear) Urine Protein (Negative) Ur Leukocyte Esterase (Negative) Urine WBC (0-5) /hpf Urine Bacteria (None) /hpf Urine Mucus (None) /hpf Urine Yeast (Budding) (None) /hpf C. difficile (EIA) Intrp (Negative) 10/10/20 10/10/2021 Range/Units 08:05 09:07 10:17 Sodium (137-145) mmol/L Carbon Dioxide (22-30) mmol/L BUN (7-17) mg/dL Creatinine (0.52-1.04) mg/dL Glucose (74-99) mg/dL POC Glucose (mg/dL) 282 H 308 H 278 H (75-99) mg/dL Total Bilirubin (0.2-1.3) mg/dL Total Protein (6.3-8.2) g/dL Albumin (3.5-5.0) g/dL Free T3 pg/mL (2.8-5.3) pg/ml Urine Appearance (Clear) Urine Protein (Negative) Ur Leukocyte Esterase (Negative) Urine WBC (0-5) /hpf Urine Bacteria (None) /hpf Urine Mucus (None) /hpf Urine Yeast (Budding) (None) /hpf C. difficile (EIA) Intrp (Negative) Microbiology - Last 24 Hours (Table) 10/09/20 12:30 Gram Stain - Preliminary Ankle - Left Wound Culture - Preliminary 10/09/20 12:30 Anaerobic Culture - Preliminary Ankle - Left 10/09/20 10:14 Urine Culture - Preliminary Urine,Catheterized Assessment and Plan (1) Diabetic foot ulcer Current Visit: No Status: Acute Code(s): E11.621 - TYPE 2 DIABETES MELLITUS WITH FOOT ULCER; L97.509 - NON-PRESSURE CHRONIC ULCER OTH PRT UNSP FOOT W UNSP SEVERITY SNOMED Code(s): 850708662 (2) Non-healing ulcer of left foot with fat layer exposed Current Visit: No Status: Acute Code(s): L97.522 - NON-PRS CHRONIC ULCER OTH PRT LEFT FOOT W FAT LAYER EXPOSED SNOMED Code(s): 495529883 (3) Pressure ulcer of left buttock, stage 2 Current Visit: No Status: Acute Code(s): L89.322 - PRESSURE ULCER OF LEFT BUTTOCK, STAGE 2 SNOMED Code(s): 31819870219956493
[2020-10-10 11:11] LABS: Glucose,Whole Blood 239 mg/dL (75-99)
[2020-10-10 11:33] LABS: HCT 26.5 % (37.2-46.3); HGB 7.8 g/dL (12.0-15.0); MCH 28.3 pg (27.0-32.0); MCHC 29.4 g/dL (32.0-37.0); Mean Platelet Volume 9.4 fL (9.5-12.2); Platelet Count 352 X 10*3/uL (140-440); RBC 2.76 X 10*6/uL (4.10-5.20); RDW 14.6 % (11.5-14.5)
[2020-10-10 12:14] LABS: Glucose,Whole Blood 203 mg/dL (75-99)
[2020-10-10 12:33] LABS: Basophils # (A) 0.02 X 10*3/uL (0.00-0.10); Basophils % (A) 0.2 %; Eosinophils # (A) 0 X 10*3/uL (0.04-0.35); Eosinophils % (A) 0 %; Lymphocytes # (A) 0.61 X 10*3/uL (0.90-5.00); Lymphocytes % (A) 5.3 %; Monocytes # (A) 1.19 X 10*3/uL (0.20-1.00); Monocytes % (A) 10.3 %; Neutrophils # (A) 9.62 X 10*3/uL (1.80-7.70); Neutrophils % (A) 83.7 %
[2020-10-10 13:10] LABS: African American GFR (CKD) 36.4 (60.0-200.0); Albumin 2.7 g/dL (3.80-4.90); Albumin/Globulin Ratio 1.23 (1.60-3.17); Anion Gap 6.9 mmol/L (4.00-12.00); Carbon Dioxide 20.1 mmol/L (21.6-31.8); Globulin 2.2 g/dL (1.6-3.3); Non-African American GFR(CKD) 31.4 (60.0-200.0); Potassium 4.6 mmol/L (3.5-5.5); Total Bilirubin 0.1 mg/dL (0.3-1.2); Total Protein 4.9 g/dL (6.2-8.2)
[2020-10-10 13:19] LABS: Glucose,Whole Blood 185 mg/dL (75-99)
[2020-10-10 14:19] VITALS: BMI 26.0
[2020-10-10 14:22] LABS: Glucose,Whole Blood 199 mg/dL (75-99)
[2020-10-10] MEDS: COLLAGENASE 250 UNIT/GM OINTMENT 30 GM TUBE TOPICAL SCH (15:22)
[2020-10-10 15:43] LABS: Glucose,Whole Blood 271 mg/dL (75-99)
--- NOTE | 2020-10-10 16:04 | P.PN ---
Subjective Progress Note Date: 10/10/20 Patient is a pleasant 75-year-old female came in with complains of diarrhea high-grade fevers generalized weakness and tiredness. Patient recently completed antibiotic therapy with ciprofloxacin about a week ago she was treated for urinary tract infection patient presented with urinary retention during her last hospitalization. Patient does have a language barrier which is Bel[place]ian. Able to get good history because daughter was present at the bedside. Patient was also significantly hypoglycemic patient is on Actos as well as a sulfonylurea for diabetes management. Her last hemoglobin A1c was from September 21 which was 6.3 patient appears to have chronic kidney disease with baseline creatinine of around 1.4 present creatinine is 1.68. Patient does have metabolic acidosis, which appears to be mostly nonambulatory gap. Chest x-ray did not show any significant abnormality, a year is mildly abnormal but no symptoms of a urinary tract infection, no evidence of UTI 10/10/2020 patient is examined at the bedside, RN was present with trailer chief machine. I was able was able to communicate with patient . Patient states that she is not having any abdominal pain, she denies any chest pain cough shortness of breath. Patient states that she is just tired. Patient was an Ateam at 2 AM due to a loss of IV access. Patient at that time was infusing D10 at 1 25 mL per hour. Patient's blood sugar was found to be 22. Patient had Accu-Cheks completed every hour and IV access was established. Patient's blood sugars that have been in the high 200s. Patient had a midline placed this afternoon after losing a second IV. Patient's blood sugar can be checked [id number]. Patient will be transitioned off of the D10 drip to 0.9ns at 75 mL per hour. Patient was found to have a positive culture for C. diff this admission and has been started on oral vancomycin. 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 Patient does have a history of chronic kidney disease stage III with a baseline creatinine of 1.4. Patient has poor oral intake, will be started on oral supplementation, constipation with nutritional services. Oral hypoglycemic agents will be on hold. Patient may resume sliding scale for hyperglycemia. Monitor closely for symptoms of hypoglycemia. Vargas meza's hemoglobin has dropped to 7.8 from 9.2. Will recheck hemoglobin at 11 PM as well as in the morning. Continue to monitor for signs of bleeding. Reports patient still having diarrhea. Patient's white blood cell count is stable at 11.5. Continue oral antibiotics. Vital signs are currently stable. ROS: Constitutional: Denied any fatigue denied any fever. Cardio vascular: denied any chest pain, palpitations Gastrointestinal denied any nausea vomiting, reports diarrhea Pulmonary: Denied any shortness of breath cough Neurologic denied any new focal deficits All inpatient medications were reviewed and appropriate changes in these medications as dictated in the interval history and assessment and plan. PHYSICAL EXAMINATION: GENERAL: The patient is alert and oriented x3, not in any acute distress. Well developed, well nourished. HEENT: Pupils are round and equally reacting to light. EOMI. No scleral icterus. No conjunctival pallor. Normocephalic, atraumatic. No pharyngeal erythema. No thyromegaly. CARDIOVASCULAR: S1 and S2 present. No murmurs, rubs, or gallops. PULMONARY: Chest is clear to auscultation, no wheezing or crackles. ABDOMEN: Soft, nontender, nondistended, hyperactive bowel sounds. MUSCULOSKELETAL: No joint swelling or deformity. EXTREMITIES: No cyanosis, clubbing, or pedal edema. NEUROLOGICAL: Gross neurological examination did not reveal any focal deficits. SKIN: No rashes. Assessment and plan -Sepsis: Secondary to C. diff colitis, patient was started on oral vancomycin. Patient is tachycardic, this may be related to sepsis can be reflux as patient takes metoprolol and clonidine. Patient will restart back on metoprolol considering the sepsis patient will not be started on clonidine at this time -Severe hyperglycemia hold off oral hypoglycemic agents D5 as mentioned above -Carotid artery disease -Hypertension patient was resumed on beta milli and amlodipine holding of clonidine -diabetes mellitus type 2, With hyperglycemia. Patient oral hypoglycemic agents are on hold related to episodes of hypoglycemia. Patient will be transitioned off of the D10 drip to 0.9ns. Patient will be started on oral protein supplementation. Encourage oral intake. Continue to monitor blood sugars closely. -Diabetic nephropathy chronic kidney disease stage III baseline creatinine of around 1.4, currently at 1.6 recheck in the morning. Anemia, acute. Hemoglobin today 7.8, dropped from 9.2. Will monitor for signs of bleeding, recheck in the morning. Transfuse to keep hemoglobin above 7. Leukocytosis, related to C. diff colitis infection with sepsis. Lactic acid on admission 1.3. Continue with oral antibiotics. Patient was monitored closely for C. diff colitis infection. Patient is continued on oral vancomycin. Patient continue metoprolol for elevated heart rate. Patient will be transitioned off the D10 drip. Patient can be resumed on NovoLog sliding scale. Oral hypoglycemic agents will still be on hold. Wound care is following for local wound management of a non healing pressure ulcer on her buttock, as well as a heel ulcer. Patient is followed in the wound care center and is scheduled for an appointment next . check CBC and BMP in the morning. Objective - Vital Signs Vital signs: Vital Signs Temp 98.6 F 10/10/20 08:22 Pulse 105 H 10/10/20 08:22 Resp 15 10/10/20 08:22 BP 131/69 10/10/20 08:22 Pulse Ox 95 10/10/20 08:22 Intake & Output 10/09/20 10/10/20 10/10/20 18:59 06:59 18:59 Intake Total 1375 Balance 1375 Weight 66.769 kg 66.769 kg Intake: Intake, IV Titration 1375 Amount Dextrose 10% in Water 1, 1375 000 ml @ 125 mls/hr IV . Q8H19M ANNMARIE with Sodium Chloride 4Meq/ml Vial 153 .8 meq Rx#:[id number] Other: Voiding Method Diaper Diaper - Labs CBC & Chem 7: 10/10/20 07:40 10/10/20 07:40 Labs: Abnormal Lab Results - Last 24 Hours (Table) 10/09/20 10/09/20 10/10/20 Range/Units 16:35 19:50 02:26 WBC (4.50-10.00) X 10*3/uL RBC (4.10-5.20) X 10*6/uL Hgb (12.0-15.0) g/dL Hct (37.2-46.3) % MCHC (32.0-37.0) g/dL RDW (11.5-14.5) % MPV (9.5-12.2) fL Immature Gran # (0.00-0.04) X 10*3/uL Neutrophils # (1.80-7.70) X 10*3/uL Lymphocytes # (0.90-5.00) X 10*3/uL Monocytes # (0.20-1.00) X 10*3/uL Eosinophils # (0.04-0.35) X 10*3/uL Carbon Dioxide (21.6-31.8) mmol/L BUN (9.0-27.0) mg/dL Creatinine (0.6-1.5) mg/dL Est GFR (CKD-EPI)AfAm (60.0-200.0) Est GFR (CKD-EPI)NonAf (60.0-200.0) Glucose (70-110) mg/dL POC Glucose (mg/dL) 139 H 101 H 22 L (75-99) mg/dL Calcium (8.7-10.3) mg/dL Total Bilirubin (0.3-1.2) mg/dL Total Protein (6.2-8.2) g/dL Albumin (3.80-4.90) g/dL Albumin/Globulin Ratio (1.60-3.17) g/dL 10/10/20 10/10/20 10/10/20 Range/Units 02:38 03:38 04:27 WBC (4.50-10.00) X 10*3/uL RBC (4.10-5.20) X 10*6/uL Hgb (12.0-15.0) g/dL Hct (37.2-46.3) % MCHC (32.0-37.0) g/dL RDW (11.5-14.5) % MPV (9.5-12.2) fL Immature Gran # (0.00-0.04) X 10*3/uL Neutrophils # (1.80-7.70) X 10*3/uL Lymphocytes # (0.90-5.00) X 10*3/uL Monocytes # (0.20-1.00) X 10*3/uL Eosinophils # (0.04-0.35) X 10*3/uL Carbon Dioxide (21.6-31.8) mmol/L BUN (9.0-27.0) mg/dL Creatinine (0.6-1.5) mg/dL Est GFR (CKD-EPI)AfAm (60.0-200.0) Est GFR (CKD-EPI)NonAf (60.0-200.0) Glucose (70-110) mg/dL POC Glucose (mg/dL) 160 H 194 H 250 H (75-99) mg/dL Calcium (8.7-10.3) mg/dL Total Bilirubin (0.3-1.2) mg/dL Total Protein (6.2-8.2) g/dL Albumin (3.80-4.90) g/dL Albumin/Globulin Ratio (1.60-3.17) g/dL 10/10/20 10/10/20 10/10/20 Range/Units 05:38 06:16 06:47 WBC (4.50-10.00) X 10*3/uL RBC (4.10-5.20) X 10*6/uL Hgb (12.0-15.0) g/dL Hct (37.2-46.3) % MCHC (32.0-37.0) g/dL RDW (11.5-14.5) % MPV (9.5-12.2) fL Immature Gran # (0.00-0.04) X 10*3/uL Neutrophils # (1.80-7.70) X 10*3/uL Lymphocytes # (0.90-5.00) X 10*3/uL Monocytes # (0.20-1.00) X 10*3/uL Eosinophils # (0.04-0.35) X 10*3/uL Carbon Dioxide (21.6-31.8) mmol/L BUN (9.0-27.0) mg/dL Creatinine (0.6-1.5) mg/dL Est GFR (CKD-EPI)AfAm (60.0-200.0) Est GFR (CKD-EPI)NonAf (60.0-200.0) Glucose (70-110) mg/dL POC Glucose (mg/dL) 272 H 287 H 271 H (75-99) mg/dL Calcium (8.7-10.3) mg/dL Total Bilirubin (0.3-1.2) mg/dL Total Protein (6.2-8.2) g/dL Albumin (3.80-4.90) g/dL Albumin/Globulin Ratio (1.60-3.17) g/dL 10/10/20 10/10/20 10/10/20 Range/Units 07:40 07:40 08:05 WBC 11.50 H (4.50-10.00) X 10*3/uL RBC 2.76 L (4.10-5.20) X 10*6/uL Hgb 7.8 L (12.0-15.0) g/dL Hct 26.5 L (37.2-46.3) % MCHC 29.4 L (32.0-37.0) g/dL RDW 14.6 H (11.5-14.5) % MPV 9.4 L (9.5-12.2) fL Immature Gran # 0.06 H (0.00-0.04) X 10*3/uL Neutrophils # 9.62 H (1.80-7.70) X 10*3/uL Lymphocytes # 0.61 L (0.90-5.00) X 10*3/uL Monocytes # 1.19 H (0.20-1.00) X 10*3/uL Eosinophils # 0 L (0.04-0.35) X 10*3/uL Carbon Dioxide 20.1 L (21.6-31.8) mmol/L BUN 32.0 H (9.0-27.0) mg/dL Creatinine 1.6 H (0.6-1.5) mg/dL Est GFR (CKD-EPI)AfAm 36.4 L (60.0-200.0) Est GFR (CKD-EPI)NonAf 31.4 L (60.0-200.0) Glucose 296 H (70-110) mg/dL POC Glucose (mg/dL) 282 H (75-99) mg/dL Calcium 8.0 L (8.7-10.3) mg/dL Total Bilirubin 0.1 L (0.3-1.2) mg/dL Total Protein 4.9 L (6.2-8.2) g/dL Albumin 2.70 L (3.80-4.90) g/dL Albumin/Globulin Ratio 1.23 L (1.60-3.17) g/dL 10/10/20 10/10/20 10/10/20 Range/Units 09:07 10:17 11:10 WBC (4.50-10.00) X 10*3/uL RBC (4.10-5.20) X 10*6/uL Hgb (12.0-15.0) g/dL Hct (37.2-46.3) % MCHC (32.0-37.0) g/dL RDW (11.5-14.5) % MPV (9.5-12.2) fL Immature Gran # (0.00-0.04) X 10*3/uL Neutrophils # (1.80-7.70) X 10*3/uL Lymphocytes # (0.90-5.00) X 10*3/uL Monocytes # (0.20-1.00) X 10*3/uL Eosinophils # (0.04-0.35) X 10*3/uL Carbon Dioxide (21.6-31.8) mmol/L BUN (9.0-27.0) mg/dL Creatinine (0.6-1.5) mg/dL Est GFR (CKD-EPI)AfAm (60.0-200.0) Est GFR (CKD-EPI)NonAf (60.0-200.0) Glucose (70-110) mg/dL POC Glucose (mg/dL) 308 H 278 H 239 H (75-99) mg/dL Calcium (8.7-10.3) mg/dL Total Bilirubin (0.3-1.2) mg/dL Total Protein (6.2-8.2) g/dL Albumin (3.80-4.90) g/dL Albumin/Globulin Ratio (1.60-3.17) g/dL 10/10/20 10/10/20 10/10/20 Range/Units 12:13 13:18 14:21 WBC (4.50-10.00) X 10*3/uL RBC (4.10-5.20) X 10*6/uL Hgb (12.0-15.0) g/dL Hct (37.2-46.3) % MCHC (32.0-37.0) g/dL RDW (11.5-14.5) % MPV (9.5-12.2) fL Immature Gran # (0.00-0.04) X 10*3/uL Neutrophils # (1.80-7.70) X 10*3/uL Lymphocytes # (0.90-5.00) X 10*3/uL Monocytes # (0.20-1.00) X 10*3/uL Eosinophils # (0.04-0.35) X 10*3/uL Carbon Dioxide (21.6-31.8) mmol/L BUN (9.0-27.0) mg/dL Creatinine (0.6-1.5) mg/dL Est GFR (CKD-EPI)AfAm (60.0-200.0) Est GFR (CKD-EPI)NonAf (60.0-200.0) Glucose (70-110) mg/dL POC Glucose (mg/dL) 203 H 185 H 199 H (75-99) mg/dL Calcium (8.7-10.3) mg/dL Total Bilirubin (0.3-1.2) mg/dL Total Protein (6.2-8.2) g/dL Albumin (3.80-4.90) g/dL Albumin/Globulin Ratio (1.60-3.17) g/dL Microbiology - Last 24 Hours (Table) 10/09/20 10:14 Urine Culture - Preliminary Urine,Catheterized Yeast species 10/09/20 12:30 Gram Stain - Preliminary Ankle - Left Wound Culture - Preliminary Gram Neg Bacilli 10/09/20 12:30 Anaerobic Culture - Preliminary Ankle - Left Assessment and Plan Time with Patient: Greater than 30
[2020-10-10 17:06] LABS: Glucose,Whole Blood 324 mg/dL (75-99)
[2020-10-10] MEDS: SODIUM CHLORIDE 0.9% 1,000 ML IV SCH (17:25)
[2020-10-10 21:32] LABS: Glucose,Whole Blood 359 mg/dL (75-99)
[2020-10-10] MEDS: LATANOPROST 0.005% OPHTH DROPS 2.5 ML BTL BOTH EYES SCH (23:07)
[2020-10-10] MEDS: INSULIN ASPART (NovoLOG) 100 UNIT/ML VIAL SQ SCH (23:08)
[2020-10-10 23:39] LABS: HCT 29.2 % (34.0-46.0); HGB 8.9 gm/dL (11.4-16.0); Hypochromasia Marked; MCH 29.2 pg (25.0-35.0); MCHC 30.4 g/dL (31.0-37.0); MCV 95.9 fL (80.0-100.0); Mean Platelet Volume 7.2; Platelet Count 430 k/uL (150-450); RBC 3.05 m/uL (3.80-5.40); RDW 14.1 % (11.5-15.5); WBC 10.8 k/uL (3.8-10.6)
--- NOTE | 2020-10-10 23:43 | PN ---
PROGRESS NOTE DATE OF SERVICE: 10/10/2020. REASON FOR FOLLOW UP: C difficile colitis. INTERVAL HISTORY: Patient is afebrile. The patient is breathing comfortably. Has been complaining of some nausea and vomiting this morning. The patient has slightly decreased in frequency, still watery. No chest pain, shortness of breath or cough or abdominal pain. Information obtained family. PHYSICAL EXAMINATION: Blood pressure 151/65, pulse of 97, temperature 98.4. She is 92% on room air. General description is an elderly female lying in bed in no distress. Respiratory system: Unlabored breathing, clear to auscultation anteriorly. Heart S1-S2 regular rate and rhythm. Abdomen: Soft, no tenderness. Extremities: No edema of the feet. LABS: White count down to 11.50. DIAGNOSTIC IMPRESSION AND PLAN: Patient with C difficile colitis for which the patient is currently covered with oral vancomycin that will be continued while monitoring clinical course closely. Continue supportive care. MMODL / IJN: [id number] /
[2020-10-11 02:09] LABS: Glucose,Whole Blood 232 mg/dL (75-99)
[2020-10-11] MEDS: ACETAMINOPHEN TAB 325 MG TAB PO PRN ×2 (05:42→20:53)
[2020-10-11] MEDS: SODIUM CHLORIDE 0.9% 1,000 ML IV SCH ×2 (05:42→22:31)
[2020-10-11 07:07] LABS: Glucose,Whole Blood 232 mg/dL (75-99)
[2020-10-11] MEDS: INSULIN ASPART (NovoLOG) 100 UNIT/ML VIAL SQ SCH ×8 (07:38→20:40)
[2020-10-11] MEDS: amLODIPine 5 MG TAB PO SCH (08:30)
[2020-10-11] MEDS: OLANZapine 5 MG TAB PO SCH (08:30)
[2020-10-11] MEDS: ATORVASTATIN 10 MG TAB PO SCH (08:30)
[2020-10-11] MEDS: CLOPIDOGREL 75 MG TAB PO SCH (08:30)
[2020-10-11] MEDS: HEPARIN SODIUM,PORCINE/PF 5,000 UNIT/0.5 ML SYRINGE SQ SCH ×2 (08:30→20:41)
[2020-10-11] MEDS: METOPROLOL SUCCINATE (ER) 100 MG TAB.ER.24H PO SCH (08:30)
[2020-10-11] MEDS: CHOLECALCIFEROL 25 MCG (1000 IU) TABLET PO SCH (08:30)
[2020-10-11] MEDS: COLLAGENASE 250 UNIT/GM OINTMENT 30 GM TUBE TOPICAL SCH (08:31)
[2020-10-11] MEDS: DONEPEZIL 5 MG TAB PO SCH (08:31)
[2020-10-11] MEDS: VANCOMYCIN ORAL SOLUTION 250 MG/5 ML BOTTLE PO SCH ×4 (08:32→22:40)
--- NOTE | 2020-10-11 09:27 | XR ---
EXAMINATION TYPE: XR chest 1V portable DATE OF EXAM: 10/11/2020 COMPARISON: 10/09/2020 INDICATION: Decreasing pulse ox TECHNIQUE: Single frontal view of the chest is obtained. FINDINGS: The heart size is normal. The pulmonary vasculature is normal. The lungs are clear. No suspicious focal infiltrates are evident. IMPRESSION: 1. No acute pulmonary process radiographically apparent.
[2020-10-11 11:25] LABS: ALT 10 U/L (4-34); AST 16 U/L (14-36); African American GFR (CKD) 39 (>60 ml/min/1.73 sqM); Albumin 2.2 g/dL (3.5-5.0); Albumin/Globulin Ratio 0.8; Alkaline Phosphatase 72 U/L (38-126); Anion Gap 8 mmol/L; Blood Urea Nitrogen 27 mg/dL (7-17); Calcium 8.9 mg/dL (8.4-10.2); Carbon Dioxide 17 mmol/L (22-30); Chloride 110 mmol/L (98-107); Globulin 2.7 g/dL; Glucose 358 mg/dL (74-99); Non-African American GFR(CKD) 34 (>60 ml/min/1.73 sqM); Potassium 4.6 mmol/L (3.5-5.1); Sodium 135 mmol/L (137-145); Total Bilirubin 0.1 mg/dL (0.2-1.3); Total Protein 4.9 g/dL (6.3-8.2)
[2020-10-11 11:50] LABS: HCT 26.6 % (37.2-46.3); HGB 7.7 g/dL (12.0-15.0); MCH 27.8 pg (27.0-32.0); MCHC 28.9 g/dL (32.0-37.0); Mean Platelet Volume 9.4 fL (9.5-12.2); Platelet Count 403 X 10*3/uL (140-440); RBC 2.77 X 10*6/uL (4.10-5.20); RDW 14.6 % (11.5-14.5); WBC 11.49 X 10*3/uL (4.50-10.00)
[2020-10-11 12:05] LABS: Glucose,Whole Blood 399 mg/dL (75-99)
--- NOTE | 2020-10-11 15:37 | P.PN ---
Subjective Progress Note Date: 10/11/20 Patient is a pleasant 75-year-old female came in with complains of diarrhea high-grade fevers generalized weakness and tiredness. Patient recently completed antibiotic therapy with ciprofloxacin about a week ago she was treated for urinary tract infection patient presented with urinary retention during her last hospitalization. Patient does have a language barrier which is [place]i. Able to get good history because daughter was present at the bedside. Patient was also significantly hypoglycemic patient is on Actos as well as a sulfonylurea for diabetes management. Her last hemoglobin A1c was from September 21 which was 6.3 patient appears to have chronic kidney disease with baseline creatinine of around 1.4 present creatinine is 1.68. Patient does have metabolic acidosis, which appears to be mostly nonambulatory gap. Chest x-ray did not show any significant abnormality, a year is mildly abnormal but no symptoms of a urinary tract infection, no evidence of UTI 10/10/2020 patient is examined at the bedside, RN was present with boiler installer machine. I was able was able to communicate with patient . Patient states that she is not having any abdominal pain, she denies any chest pain cough shortness of breath. Patient states that she is just tired. Patient was an Ateam at 2 AM due to a loss of IV access. Patient at that time was infusing D10 at 1 25 mL per hour. Patient's blood sugar was found to be 22. Patient had Accu-Cheks completed every hour and IV access was established. Patient's blood sugars that have been in the high 200s. Patient had a midline placed this afternoon after losing a second IV. Patient's blood sugar can be checked [id number]. Patient will be transitioned off of the D10 drip to 0.9ns at 75 mL per hour. Patient was found to have a positive culture for C. diff this admission and has been started on oral vancomycin. 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 Patient does have a history of chronic kidney disease stage III with a baseline creatinine of 1.4. Patient has poor oral intake, will be started on oral supplementation, constipation with nutritional services. Oral hypoglycemic agents will be on hold. Patient may resume sliding scale for hyperglycemia. Monitor closely for symptoms of hypoglycemia. Vargas meza's hemoglobin has dropped to 7.8 from 9.2. Will recheck hemoglobin at 11 PM as well as in the morning. Continue to monitor for signs of bleeding. Reports patient still having diarrhea. Patient's white blood cell count is stable at 11.5. Continue oral antibiotics. Vital signs are currently stable. 10/11/20 Patient is examined at the bedside, EKG being performed. Patient denies any abdominal pain, denies cramping, denies nausea vomiting. Patient reports diarrhea. Per RN there are no signs of active bleed. Patient's heart rate was elevated this morning at 150, EKG obtained revealed normal rhythm, sinus tachycardia, lactic acid obtained, 0.8, fluids were increased to 100cc/hr. Gladis ent's heart rate had improved down to 110 status post metoprolol. Patient continues on by mouth Vanco for a C. diff infection. Patient's hemoglobin today is 7.7, general surgery consultation to rule out an acute GI bleed. Patient reports no issues with urination. Patient's Coumadin and creatinine continue to be elevated. Continue to monitor. Patient's blood sugar current level 399, continue with NovoLog signs were insulin and consistent carb diet. Continue to monitor blood sugars. Encourage ambulation as tolerated. Urine culture finalized for Keeley glabrata. Nonhealing wound to the patient's left ankle finalized for gram-negative bacilli final cultures and sensitivity pending. R epeat chest x-ray today, was negative for any acute process. Patient continues to have temperature, T-max 100.6. Continue with local wound care with Santyl. Patient is primarily [place]i-speaking, interpreter for the deaf available. ROS: Constitutional: Denied any fatigue denied any fever. Cardio vascular: denied any chest pain, palpitations Gastrointestinal denied any nausea vomiting, reports diarrhea Pulmonary: Denied any shortness of breath cough Neurologic denied any new focal deficits All inpatient medications were reviewed and appropriate changes in these medications as dictated in the interval history and assessment and plan. PHYSICAL EXAMINATION: GENERAL: The patient is alert and oriented x3, not in any acute distress. Well developed, well nourished. HEENT: Pupils are round and equally reacting to light. EOMI. No scleral icterus. No conjunctival pallor. Normocephalic, atraumatic. No pharyngeal erythema. No thyromegaly. CARDIOVASCULAR: S1 and S2 present. No murmurs, rubs, or gallops. PULMONARY: Chest is clear to auscultation, no wheezing or crackles. ABDOMEN: Soft, nontender, nondistended, hyperactive bowel sounds. MUSCULOSKELETAL: No joint swelling or deformity. EXTREMITIES: No cyanosis, clubbing, or pedal edema. NEUROLOGICAL: Gross neurological examination did not reveal any focal deficits. SKIN: No rashes. Assessment and plan -Sepsis: Secondary to C. diff colitis, patient was started on oral vancomycin. Patient is tachycardic, this may be related to sepsis can be reflux as patient takes metoprolol and clonidine. Patient will restart back on metoprolol considering the sepsis patient will not be started on clonidine at this time -Severe hypoglycemia, has resolved, patient has been transitioned off of the D5 drip, patient is now on normal saline. Continue with the long sliding scale as needed continue to hold oral hypoglycemic agents. -Carotid artery disease continue on current cardiac medications -Hypertension patient was resumed on beta milli and amlodipine holding of clonidine -diabetes mellitus type 2, With hyperglycemia. Patient oral hypoglycemic agents are on hold related to episodes of hypoglycemia. Patient will be transitioned off of the D10 drip to 0.9ns. Patient will be started on oral protein supple mentation. Encourage oral intake. Continue to monitor blood sugars closely. -Diabetic nephropathy chronic kidney disease stage III baseline creatinine of around 1.4, currently at 1.6 recheck in the morning. Anemia, acute. Hemoglobin today 7.7, surgical consult to rule out acute GI bleed, could be related to infectious C. diff colitis. Leukocytosis, related to C. diff colitis infection with sepsis. Lactic acid on admission 1.3, down to 0.8. Continue with oral antibiotics. Wound cultures p ositive for gram-negative bacilli. Further antibiotic coverage per infectious disease. Diabetes mellitus type 2, with hyperglycemia, with nonhealing ulcerspatient is maintained on Amaryl, actos at home currently on hold related to episodes of hypoglycemia. Coverage via sliding for NovoLog Nonhealing pressure ulcer, patient is following with wound care, continue with current wound care recommendations. Patient was monitored closely for C. diff colitis infection. Patient is continued on oral vancomycin. Patient continue metoprolol for elevated heart rate. Patient will be transitioned off the D10 drip. Patient can be resumed on NovoLog sliding scale. Oral hypoglycemic agents will still be on hold. Wound care is following for local wound management of a non healing pressure ulcer on her buttock, as well as a heel ulcer. Patient is followed in the wound care center and is scheduled for an appointment next . check CBC and BMP in the morning. Pending recommendations from infectious disease for a positive wound culture for gram-negative bacilli. Pending surgical consultation for a rule out GI bleed. Continue to monitor hemoglobin closely. In for any signs of bleeding. Continue to encourage ambulation as tolerated. Objective - Vital Signs Vital signs: Vital Signs Temp 100.6 F H 10/11/20 14:59 Pulse 118 H 10/11/20 14:59 Resp 16 10/11/20 14:59 BP 129/70 10/11/20 14:59 Pulse Ox 98 10/11/20 14:59 Intake & Output 10/10/20 10/11/20 10/11/20 18:59 06:59 18:59 Weight 66.769 kg Other: Voiding Method Diaper Diaper Diaper # Voids 3 3 # Bowel Movements 3 1 - Labs CBC & Chem 7: 10/11/20 07:37 10/11/20 10:44 Labs: Abnormal Lab Results - Last 24 Hours (Table) 10/10/20 10/10/20 10/10/20 Range/Units 15:41 17:05 21:29 WBC (3.8-10.6) k/uL RBC (3.80-5.40) m/uL Hgb (11.4-16.0) gm/dL Hct (34.0-46.0) % MCHC (31.0-37.0) g/dL RDW (11.5-14.5) % MPV (9.5-12.2) fL Sodium (137-145) mmol/L Chloride (98-107) mmol/L Carbon Dioxide (22-30) mmol/L BUN (7-17) mg/dL Creatinine (0.52-1.04) mg/dL Glucose (74-99) mg/dL POC Glucose (mg/dL) 271 H 324 H 359 H (75-99) mg/dL Total Bilirubin (0.2-1.3) mg/dL Total Protein (6.3-8.2) g/dL Albumin (3.5-5.0) g/dL 10/10/20 10/11/20 10/11/20 Range/Units 23:15 02:07 07:05 WBC 10.8 H (3.8-10.6) k/uL RBC 3.05 L (3.80-5.40) m/uL Hgb 8.9 L (11.4-16.0) gm/dL Hct 29.2 L (34.0-46.0) % MCHC 30.4 L (31.0-37.0) g/dL RDW (11.5-14.5) % MPV (9.5-12.2) fL Sodium (137-145) mmol/L Chloride (98-107) mmol/L Carbon Dioxide (22-30) mmol/L BUN (7-17) mg/dL Creatinine (0.52-1.04) mg/dL Glucose (74-99) mg/dL POC Glucose (mg/dL) 232 H 232 H (75-99) mg/dL Total Bilirubin (0.2-1.3) mg/dL Total Protein (6.3-8.2) g/dL Albumin (3.5-5.0) g/dL 10/11/20 10/11/20 10/11/20 Range/Units 07:37 10:44 12:02 WBC 11.49 H (3.8-10.6) k/uL RBC 2.77 L (3.80-5.40) m/uL Hgb 7.7 L (11.4-16.0) gm/dL Hct 26.6 L (34.0-46.0) % MCHC 28.9 L (31.0-37.0) g/dL RDW 14.6 H (11.5-14.5) % MPV 9.4 L (9.5-12.2) fL Sodium 135 L (137-145) mmol/L Chloride 110 H (98-107) mmol/L Carbon Dioxide 17 L (22-30) mmol/L BUN 27 H (7-17) mg/dL Creatinine 1.50 H (0.52-1.04) mg/dL Glucose 358 H (74-99) mg/dL POC Glucose (mg/dL) 399 H (75-99) mg/dL Total Bilirubin 0.1 L (0.2-1.3) mg/dL Total Protein 4.9 L (6.3-8.2) g/dL Albumin 2.2 L (3.5-5.0) g/dL Microbiology - Last 24 Hours (Table) 10/09/20 10:14 Urine Culture - Final Urine,Catheterized Keeley glabrata 10/09/20 12:30 Gram Stain - Preliminary Ankle - Left Wound Culture - Preliminary Gram Neg Bacilli Assessment and Plan Time with Patient: Greater than 30
--- NOTE | 2020-10-11 16:50 | PN ---
PROGRESS NOTE DATE OF SERVICE: 10/11/2020 REASON FOR FOLLOWUP: C difficile colitis. INTERVAL HISTORY: The patient is afebrile. The patient is breathing comfortably. No chest pain or cough. No abdominal pain. Diarrhea has improved. No bowel movement today. No further vomiting has been reported. PHYSICAL EXAMINATION: Blood pressure 129/70 with a pulse of 118, temperature 100.6. She is 98% on room air. General description is an elderly female lying in bed in no distress. Respiratory system: Unlabored breathing, clear to auscultation anteriorly. Heart S1, S2. Regular rate and rhythm. Abdomen soft, no tenderness. Left ankle is currently dressed up, no obvious drainage on the dressing. LABS: Wound culture from the ankle showing Gram-negative bacilli. Urine showing Keeley glabrata. DIAGNOSTIC IMPRESSION AND PLAN: 1. Patient admitted to the hospital with significant diarrhea from the C difficile colitis, on oral vancomycin, to continue. 2. The patient did have positive urine with Keeley glabrata, could be possible colonization. 3. Left ankle wound positive cultures, more likely colonization. No need for any systemic antibiotic therapy for the same. Family at the bedside, questions were answered. MMODL / IJN: [id number] /
[2020-10-11 17:16] LABS: Glucose,Whole Blood 257 mg/dL (75-99)
[2020-10-11 20:15] LABS: Glucose,Whole Blood 214 mg/dL (75-99)
[2020-10-11] MEDS: LATANOPROST 0.005% OPHTH DROPS 2.5 ML BTL BOTH EYES SCH (20:40)
[2020-10-12 01:48] LABS: Glucose,Whole Blood 181 mg/dL (75-99)
[2020-10-12] MEDS: ACETAMINOPHEN TAB 325 MG TAB PO PRN ×2 (06:01→20:16)
[2020-10-12] MEDS: SODIUM CHLORIDE 0.9% 1,000 ML IV SCH ×2 (06:07→12:35)
[2020-10-12 06:48] LABS: Glucose,Whole Blood 223 mg/dL (75-99)
[2020-10-12 07:28] LABS: African American GFR (CKD) 42 (>60 ml/min/1.73 sqM); Anion Gap 8 mmol/L; Blood Urea Nitrogen 28 mg/dL (7-17); Calcium 9.5 mg/dL (8.4-10.2); Carbon Dioxide 14 mmol/L (22-30); Chloride 112 mmol/L (98-107); Glucose 241 mg/dL (74-99); Non-African American GFR(CKD) 37 (>60 ml/min/1.73 sqM); Sodium 134 mmol/L (137-145)
[2020-10-12 07:38] LABS: Potassium 4.9 mmol/L (3.5-5.1)
[2020-10-12] MEDS: METOPROLOL SUCCINATE (ER) 100 MG TAB.ER.24H PO SCH (08:16)
[2020-10-12] MEDS: HEPARIN SODIUM,PORCINE/PF 5,000 UNIT/0.5 ML SYRINGE SQ SCH ×2 (08:16→20:16)
[2020-10-12] MEDS: ATORVASTATIN 10 MG TAB PO SCH (08:16)
[2020-10-12] MEDS: OLANZapine 5 MG TAB PO SCH (08:16)
[2020-10-12] MEDS: CHOLECALCIFEROL 25 MCG (1000 IU) TABLET PO SCH (08:17)
[2020-10-12] MEDS: DONEPEZIL 5 MG TAB PO SCH (08:17)
[2020-10-12] MEDS: INSULIN ASPART (NovoLOG) 100 UNIT/ML VIAL SQ SCH ×5 (08:17→20:15)
[2020-10-12] MEDS: amLODIPine 5 MG TAB PO SCH (08:17)
[2020-10-12] MEDS: VANCOMYCIN ORAL SOLUTION 250 MG/5 ML BOTTLE PO SCH ×4 (08:17→21:54)
[2020-10-12] MEDS: CLOPIDOGREL 75 MG TAB PO SCH (08:17)
[2020-10-12 11:11] LABS: HCT 30.7 % (37.2-46.3); HGB 8.8 g/dL (12.0-15.0); MCH 28.6 pg (27.0-32.0); MCHC 28.7 g/dL (32.0-37.0); MCV 99.7 fL (80.0-97.0); Mean Platelet Volume 9.4 fL (9.5-12.2); Platelet Count 300 X 10*3/uL (140-440); RBC 3.08 X 10*6/uL (4.10-5.20); RDW 14.6 % (11.5-14.5); WBC 10.78 X 10*3/uL (4.50-10.00)
[2020-10-12 12:05] LABS: Glucose,Whole Blood 305 mg/dL (75-99)
--- NOTE | 2020-10-12 12:32 | P.PN ---
Subjective Patient is a pleasant 75-year-old female came in with complains of diarrhea high-grade fevers generalized weakness and tiredness. Patient recently c ompleted antibiotic therapy with ciprofloxacin about a week ago she was treated for urinary tract infection patient presented with urinary retention during her last hospitalization. Patient does have a language barrier which is Israeli. Able to get good history because daughter was present at the bedside. Patient was also significantly hypoglycemic patient is on Actos as well as a sulfonylurea for diabetes management. Her last hemoglobin A1c was from September 21 which was 6.3 patient appears to have chronic kidney disease with baseline creatinine of around 1.4 present creatinine is 1.68. Patient does have metabolic acidosis, which appears to be mostly nonambulatory gap. Chest x-ray did not show any significant abnormality, a year is mildly abnormal but no symptoms of a urinary tract infection, no evidence of UTI 10/10/2020 patient is examined at the bedside, RN was present with manager utility machine. I was able was able to communicate with patient . Patient states that she is not having any abdominal pain, she denies any chest pain cough shortness of breath. Patient states that she is just tired. Patient was an Ateam at 2 AM due to a loss of IV access. Patient at that time was infusing D10 at 1 25 mL per hour. Patient's blood sugar was found to be 22. Patient had Accu-Cheks completed every hour and IV access was established. Patient's blood sugars that have been in the high 200s. Patient had a midline placed this afternoon after losing a second IV. Patient's blood sugar can be checked [id number]. Patient will be transitioned off of the D10 drip to 0.9ns at 75 mL per hour. Patient was found to have a positive culture for C. diff this admission and has been started on oral vancomycin. 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 Patient does have a history of chronic kidney disease stage III with a baseline creatinine of 1.4. Patient has poor oral intake, will be started on oral supplementation, constipation with nutritional s ervices. Oral hypoglycemic agents will be on hold. Patient may resume sliding scale for hyperglycemia. Monitor closely for symptoms of hypoglycemia. Patient's hemoglobin has dropped to 7.8 from 9.2. Will recheck hemoglobin at 11 PM as well as in the morning. Continue to monitor for signs of bleeding. Reports patient still having diarrhea. Patient's white blood cell count is stable at 11.5. Continue oral antibiotics. Vital signs are currently stable. 10/11/2020 Patient is examined at the bedside, EKG being performed. Patient denies any abdominal pain, denies cramping, denies nausea vomiting. Patient reports diarrhea. Per RN there are no signs of active bleed. Patient's heart rate was elevated this morning at 150, EKG obtained revealed normal rhythm, sinus tachycardia, lactic acid obtained, 0.8, fluids were increased to 100cc/hr. Patient's heart rate had improved down to 110 status post metoprolol. Patient continues on by mouth Vanco for a C. diff infection. Patient's hemoglobin today is 7.7, general surgery consultation to rule out an acute GI bleed. Patient reports no issues with urination. Patient's Coumadin and creatinine continue to be elevated. Continue to monitor. Patient's blood sugar current level 399, continue with NovoLog signs were insulin and consistent carb diet. Continue to monitor blood sugars. Encourage ambulation as tolerated. Urine culture finalized for Keeley glabrata. Nonhealing wound to the patient's left ankle finalized for gram-negative bacilli final cultures and sensitivity pending. Repeat chest x-ray today, was negative for any acute process. Patient continues to have temperature, T-max 100.6. Continue with local wound care with Santyl. Patient is primarily Israeli-speaking, lang interpreter available. 10/12/2020 Patient is examined today at bedside, patient is awake alert and oriented 3. Patient continues to have loose bowel movements. Per RN patient had to be straight cathed times one for urinary retention, repeat UA and culture has been ordered. Patient's ankle culture has been finalized, growing pseudomonas, antibiotic recommendations per infectious disease. Patient continues to have temperatures, T-max 100.7 in the last 24 hours, heart rate 118, blood pressure 126/57, patient is 96% on room air. Patient can of oral Tylenol as needed. Continue with IV fluids 0.9 at 125 continue to monitor for signs of sepsis. Repeat lactic acid drawn yesterday was a level of 0.08. Patient will continue on PO Vanco for C. diff colitis, recommendations per ID. Patient denies any chest pain, cough, shortness of breath. Patient states that her abdomen feels so-so. Patient is primarily Israeli-speaking. Patient's lab work today revealed a hemoglobin that is now stable at 8.8. White blood cell count is st able at 10.78. Patient's BUN and creatinine are essentially unchanged. Patient is hyperglycemic, continue with NovoLog sliding scale. Continue to encourage oral intake. Patient can continue with local wound care per wound care services. Patient was following the wound care center. ROS: Constitutional: Denied any fatigue denied any fever. Cardio vascular: denied any chest pain, palpitations Gastrointestinal denied any nausea vomiting, reports diarrhea Pulmonary: Denied any shortness of breath cough Neurologic denied any new focal deficits All inpatient medications were reviewed and appropriate changes in these medications as dictated in the interval history and assessment and plan. PHYSICAL EXAMINATION: GENERAL: The patient is alert and oriented x3, not in any acute distress. Well developed, well nourished. HEENT: Pupils are round and equally reacting to light. EOMI. No scleral icterus. No conjunctival pallor. Normocephalic, atraumatic. No pharyngeal erythema. No thyromegaly. CARDIOVASCULAR: S1 and S2 present. No murmurs, rubs, or gallops. PULMONARY: Chest is clear to auscultation, no wheezing or crackles. ABDOMEN: Soft, nontender, nondistended, hyperactive bowel sounds. MUSCULOSKELETAL: No joint swelling or deformity. EXTREMITIES: No cyanosis, clubbing, or pedal edema. NEUROLOGICAL: Gross neurological examination did not reveal any focal deficits. SKIN: Nonhealing wound on buttock and left ankle/heel, Assessment and plan -Sepsis: Secondary to C. diff colitis, patient was started on oral vancomycin. Patient is tachycardic, this may be related to sepsis can be reflux as patient takes metoprolol and clonidine. Patient will restart back on metoprolol considering the sepsis patient will not be started on clonidine at this time -Severe hypoglycemia, has resolved, patient has been transitioned off of the D5 drip, patient is now on normal saline. Continue with the long sliding scale as needed continue to hold oral hypoglycemic agents. -Carotid artery disease continue on current cardiac medications -Hypertension patient was resumed on beta milli and amlodipine holding of clonidine -diabetes mellitus type 2, With hyperglycemia. Patient oral hypoglycemic agents are on hold related to episodes of hypoglycemia. Patient will be transitioned off of the D10 drip to 0.9ns. Patient will be started on oral protein sup plementation. Encourage oral intake. Continue to monitor blood sugars closely. Caution with adding oral hypoglycemic agents due to decreased appetite. -Diabetic nephropathy chronic kidney disease stage III baseline creatinine of around 1.4, creatinine today 1.42. Anemia, acute. Hemoglobin today 7.7, surgical consult to rule out acute GI bleed, could be related to infectious C. diff colitis. Hemoglobin improved with a level of 8.8. No signs of bleeding. Leukocytosis, related to C. diff colitis infection with sepsis. Lactic acid on admission 1.3, down to 0.8. Continue with oral antibiotics. Wound cultures positive for Pseudomonas. Further antibiotic coverage per infectious disease. Diabetes mellitus type 2, with hyperglycemia, with nonhealing ulcerspatient is maintained on Amaryl, actos at home currently on hold related to episodes of hypoglycemia. Coverage via sliding for NovoLog, will add small dose of scheduled insulin with parameters. Tight glycemic control for wound healing. Nonhealing pressure ulcer, patient is following with wound care, continue with current wound care recommendations. Patient was monitored closely for C. diff colitis infection. Patient is continued on oral vancomycin. Patient continue metoprolol for elevated heart rate. Patient to continue with 0.9 normal saline at 1 25 mL per hour, for hydration. Patient can be resumed on NovoLog sliding scale. Oral hypoglycemic agents will still be on hold. Wound care is following for local wound management of a non healing pressure ulcer on her buttock, as well as a heel ulcer. Patient is followed in the wound care center and is scheduled for an appointment next . check CBC and BMP in the morning. Pending recommendations from infectious disease for a positive wound culture for Pseudomonas. Pending surgical consultation for a rule out GI bleed. Continue to monitor hemoglobin closely. In for any signs of bleeding. Continue to encourage ambulation as tolerated. Objective - Vital Signs Vital signs: Vital Signs Temp 99.3 F 10/12/20 07:30 Pulse 118 H 10/12/20 07:30 Resp 17 10/12/20 07:30 BP 126/57 10/12/20 07:30 Pulse Ox 96 10/12/20 07:30 Intake & Output 10/11/20 10/12/20 10/12/20 18:59 06:59 18:59 Intake Total 300 Balance 300 Intake: Oral 300 Other: Voiding Method Diaper Diaper # Bowel Movements 4 3 - Labs CBC & Chem 7: 10/12/20 06:43 10/12/20 06:43 Labs: Abnormal Lab Results - Last 24 Hours (Table) 10/11/20 10/11/20 10/12/20 Range/Units 17:14 20:13 01:43 WBC (4.50-10.00) X 10*3/uL RBC (4.10-5.20) X 10*6/uL Hgb (12.0-15.0) g/dL Hct (37.2-46.3) % MCV (80.0-97.0) fL MCHC (32.0-37.0) g/dL RDW (11.5-14.5) % MPV (9.5-12.2) fL Absolute Nucleated RBC (0.00-0.00) X 10*3/uL NRBC/100 WBC Diff (0.0-0.0) /100 WBCS Sodium (137-145) mmol/L Chloride (98-107) mmol/L Carbon Dioxide (22-30) mmol/L BUN (7-17) mg/dL Creatinine (0.52-1.04) mg/dL Glucose (74-99) mg/dL POC Glucose (mg/dL) 257 H 214 H 181 H (75-99) mg/dL 10/12/20 10/12/20 10/12/20 Range/Units 06:43 06:43 06:46 WBC 10.78 H (4.50-10.00) X 10*3/uL RBC 3.08 L (4.10-5.20) X 10*6/uL Hgb 8.8 L (12.0-15.0) g/dL Hct 30.7 L (37.2-46.3) % MCV 99.7 H (80.0-97.0) fL MCHC 28.7 L (32.0-37.0) g/dL RDW 14.6 H (11.5-14.5) % MPV 9.4 L (9.5-12.2) fL Absolute Nucleated RBC 0.02 H (0.00-0.00) X 10*3/uL NRBC/100 WBC Diff 0.2 H (0.0-0.0) /100 WBCS Sodium 134 L (137-145) mmol/L Chloride 112 H (98-107) mmol/L Carbon Dioxide 14 L (22-30) mmol/L BUN 28 H (7-17) mg/dL Creatinine 1.42 H (0.52-1.04) mg/dL Glucose 241 H (74-99) mg/dL POC Glucose (mg/dL) 223 H (75-99) mg/dL 10/12/20 Range/Units 12:03 WBC (4.50-10.00) X 10*3/uL RBC (4.10-5.20) X 10*6/uL Hgb (12.0-15.0) g/dL Hct (37.2-46.3) % MCV (80.0-97.0) fL MCHC (32.0-37.0) g/dL RDW (11.5-14.5) % MPV (9.5-12.2) fL Absolute Nucleated RBC (0.00-0.00) X 10*3/uL NRBC/100 WBC Diff (0.0-0.0) /100 WBCS Sodium (137-145) mmol/L Chloride (98-107) mmol/L Carbon Dioxide (22-30) mmol/L BUN (7-17) mg/dL Creatinine (0.52-1.04) mg/dL Glucose (74-99) mg/dL POC Glucose (mg/dL) 305 H (75-99) mg/dL Microbiology - Last 24 Hours (Table) 10/09/20 12:30 Gram Stain - Final Ankle - Left Wound Culture - Final Pseudomonas fluorescens/putida 10/09/20 12:30 Anaerobic Culture - Preliminary Ankle - Left 10/09/20 10:14 Urine Culture - Final Urine,Catheterized Keeley glabrata Assessment and Plan Time with Patient: Greater than 30
[2020-10-12] MEDS: COLLAGENASE 250 UNIT/GM OINTMENT 30 GM TUBE TOPICAL SCH (15:17)
--- NOTE | 2020-10-12 16:28 | P.GSCN ---
History of Present Illness Consult date: 10/12/20 History of present illness: CHIEF COMPLAINT: Anemia and fatigue HISTORY OF PRESENT ILLNESS: The patient is a 75 year old female whose primary language is Brazilian presented to the emergency room 10/09/2020 with generalized fatigue. Since her hospitalization in the last 3 days, her hemoglobin has dropped from 9.2 to 7.7. She has multiple bowel movements. As result of her symptomatic anemia and multiple bowel movements, Gen. surgery is consulted for management of anemia. Her daughter is at bedside and reports that patient developed severe fatigue following a fall 1 month ago. Nurse provided additional history that patient is C Diff positive. No blood in stools. No transfusions since admission. PAST MEDICAL HISTORY: See list and reviewed PAST SURGICAL HISTORY: See list and reviewed MEDICATIONS: See list and reviewed ALLERGIES: See list and reviewed SOCIAL HISTORY: See list and reviewed FAMILY HISTORY: See list and reviewed REVIEW OF ORGAN SYSTEMS: Obtained per records and daughter CONSTITUTIONAL: Had fevers during hospitalization 101.0 EYES: No reports of trouble with vision. No glasses. HEENT: No difficulties with hearing. No nosebleeds. No difficulty swallowing. RESPIRATORY: New pneumonia during hospitalization per chest x-ray CARDIOVASCULAR: Has coronary artery disease. Has hyperlipidemia. Has hypertension. Past cardiac catheterization with stent. GASTROINTESTINAL: Has chronic diarrhea GENITOURINARY: No reports of blood in urine or increased urinary frequency. NEUROLOGICAL: No reports of any numbness or tingling along the distal extremities. No seizure disorders or headaches. MUSCULOSKELETAL: Has back pain, stiffness or joint arthritis. SKIN: No current skin cancer. No rash. PSYCHIATRIC: Has dementia ENDOCRINE: No reports ofcurrent thyroid disorders. Diabetes type 2, poorly controlled. HEME/LYMPHATIC: No reports of any lumps and bumps around the neck. No recent deep venous thrombosis. She is on Plavix. ALLERGY/IMMUNOLOGY: No reports of immunoglobulin therapy. No immune deficiencies. BREAST: No reports of current breast lumps, pain or nipple discharge. PHYSICAL EXAM: VITALS: Reviewed CONSTITUTIONAL: Well developed and in no acute distress. EYES: Conjuctivae without sclera icterus. Extraocular movements grossly intact. HEAD, EARS, NOSE, THROAT: Moist buccal mucosa. Head is atraumatic, normocephalic. Hears conversational speech. No nasal drainage. NECK: Supple. No JV distention. No gross thyroidomegaly. RESPIRATORY: Non-labored respirations and equal bilateral excursions. No gross wheezes. CARDIOVASCULAR: Regular rate and rhythm. Extremities without moderate edema. Palpable 2+ radial pulses. ABDOMEN: Nontender. LYMPH: No gross neck lymphadenopathy. MUSCULOSKELETAL: Nail and fingers with good capillary refill. SKIN: Warm and well perfused with good skin turgor. NEUROLOGIC: Cranial nerves II through XII grossly intact. Sensation upper and extremities intact. No focal or lateralizing signs. PSYCH: Appropriate affect. Alert and oriented to person, place and time. Displays appropriate insight. CLINCAL LABS: Reviewed. Hemoglobin dropped from 9.2-7.7. Hemoglobin up to 8.8 without blood transfusions. White count down from over 12,000 to 10,000+. Creatinine elevated 1.60 on admission now down to 1.42 for chronic kidney disease. Blood sugar glucose elevated over 250s. Platelets normal at 300 IMAGING: Independently reviewed CT of the brain 10/09/2020 without acute intracranial bleed. Remote hypodensity along the right ventricle possible for past infarct. This is my independent interpretation. RADIOLOGY: Report reviewed CT brain reviewed confirming right lacunar infarct and ischemic type changes, not acute Chest x-ray report reviewed on admission demonstrates acute infiltrate versus atelectasis along the right lung. Recent chest x-ray report confirmed resolution. ASSESSMENT: 1. Acute blood loss anemia 2. Coronary artery disease 3. Dementia PLAN: 1. Recommend iron panel. May need iron infusion pending results. 2. Recommend hold Plavix 3. Lower endoscopy on hold with acute C. Diff 4. Upper endoscopy pending Hgb trend. ADVANCE DIRECTIVE: Daughter reports she and her sister makes decisions. Thank you for this kind consultation. Past Medical History Past Medical History: Coronary Artery Disease (CAD), Diabetes Mellitus, Hyperlipidemia, Hypertension History of Any Multi-Drug Resistant Organisms: None Reported Past Surgical History: Cholecystectomy, Heart Catheterization With Stent, Orthopedic Surgery Additional Past Surgical History / Comment(s): hip surgery, cataract sx, left ankle surgery 2020 Date of Last Stent Placement:: 2000 Past Psychological History: No Psychological Hx Reported Smoking Status: Never smoker Past Alcohol Use History: None Reported Past Drug Use History: None Reported Medications and Allergies Home Medications Medication Instructions Recorded Confirmed Type Clopidogrel [Plavix] 75 mg PO DAILY 09/14/20 10/09/20 History Collagenase [Santyl] 1 applic TOPICAL HS 09/14/20 10/09/20 History Donepezil [Aricept] 5 mg PO DAILY 09/14/20 10/09/20 History Glimepiride [Amaryl] 8 mg PO DAILY 09/14/20 10/09/20 History Latanoprost/Pf [Latanoprost 0.005% 1 drop BOTH EYES HS 09/14/20 10/09/20 History Eye Drop] Metoprolol Succinate (ER) [Toprol 100 mg PO DAILY 09/14/20 10/09/20 History XL] OLANZapine [ZyPREXA] 5 mg PO DAILY 09/14/20 10/09/20 History Pioglitazone [Actos] 30 mg PO DAILY 09/14/20 10/09/20 History Simvastatin [Zocor] 20 mg PO DAILY 09/14/20 10/09/20 History amLODIPine [Norvasc] 5 mg PO DAILY 09/14/20 10/09/20 History cloNIDine HCL [Catapres] 0.1 mg PO BID 09/14/20 10/09/20 History Cholecalciferol [Vitamin D3 (25 25 mcg PO DAILY 10/09/20 10/09/20 History Mcg = 1000 Iu)] Fluconazole [Diflucan] 100 mg PO DAILY 10/09/20 10/09/20 History Allergies Allergy/AdvReac Type Severity Reaction Status Date / Time No Known Allergies Allergy Verified 09/19/20 08:59 Surgical - Exam Vital Signs Temp Pulse Resp BP Pulse Ox 98.8 F 122 H 18 153/63 99 10/09/20 09:59 10/09/20 09:59 10/09/20 09:59 10/09/20 09:59 10/09/20 09:59 Results - Labs 10/12/20 06:43 10/12/20 06:43 Abnormal Lab Results - Last 24 Hours (Table) 10/11/20 10/11/20 10/12/20 Range/Units 17:14 20:13 01:43 WBC (4.50-10.00) X 10*3/uL RBC (4.10-5.20) X 10*6/uL Hgb (12.0-15.0) g/dL Hct (37.2-46.3) % MCV (80.0-97.0) fL MCHC (32.0-37.0) g/dL RDW (11.5-14.5) % MPV (9.5-12.2) fL Absolute Nucleated RBC (0.00-0.00) X 10*3/uL NRBC/100 WBC Diff (0.0-0.0) /100 WBCS Sodium (137-145) mmol/L Chloride (98-107) mmol/L Carbon Dioxide (22-30) mmol/L BUN (7-17) mg/dL Creatinine (0.52-1.04) mg/dL Glucose (74-99) mg/dL POC Glucose (mg/dL) 257 H 214 H 181 H (75-99) mg/dL 10/12/20 10/12/20 10/12/20 Range/Units 06:43 06:43 06:46 WBC 10.78 H (4.50-10.00) X 10*3/uL RBC 3.08 L (4.10-5.20) X 10*6/uL Hgb 8.8 L (12.0-15.0) g/dL Hct 30.7 L (37.2-46.3) % MCV 99.7 H (80.0-97.0) fL MCHC 28.7 L (32.0-37.0) g/dL RDW 14.6 H (11.5-14.5) % MPV 9.4 L (9.5-12.2) fL Absolute Nucleated RBC 0.02 H (0.00-0.00) X 10*3/uL NRBC/100 WBC Diff 0.2 H (0.0-0.0) /100 WBCS Sodium 134 L (137-145) mmol/L Chloride 112 H (98-107) mmol/L Carbon Dioxide 14 L (22-30) mmol/L BUN 28 H (7-17) mg/dL Creatinine 1.42 H (0.52-1.04) mg/dL Glucose 241 H (74-99) mg/dL POC Glucose (mg/dL) 223 H (75-99) mg/dL 10/12/20 Range/Units 12:03 WBC (4.50-10.00) X 10*3/uL RBC (4.10-5.20) X 10*6/uL Hgb (12.0-15.0) g/dL Hct (37.2-46.3) % MCV (80.0-97.0) fL MCHC (32.0-37.0) g/dL RDW (11.5-14.5) % MPV (9.5-12.2) fL Absolute Nucleated RBC (0.00-0.00) X 10*3/uL NRBC/100 WBC Diff (0.0-0.0) /100 WBCS Sodium (137-145) mmol/L Chloride (98-107) mmol/L Carbon Dioxide (22-30) mmol/L BUN (7-17) mg/dL Creatinine (0.52-1.04) mg/dL Glucose (74-99) mg/dL POC Glucose (mg/dL) 305 H (75-99) mg/dL Microbiology - Last 24 Hours (Table) 10/09/20 12:30 Gram Stain - Final Ankle - Left Wound Culture - Final Pseudomonas fluorescens/putida 10/09/20 12:30 Anaerobic Culture - Preliminary Ankle - Left Diabetes panel 10/12/20 Range/Units 06:43 Sodium 134 L (137-145) mmol/L Potassium 4.9 (3.5-5.1) mmol/L Chloride 112 H (98-107) mmol/L Carbon Dioxide 14 L (22-30) mmol/L BUN 28 H (7-17) mg/dL Creatinine 1.42 H (0.52-1.04) mg/dL Glucose 241 H (74-99) mg/dL Calcium 9.5 (8.4-10.2) mg/dL Calcium panel 10/12/20 Range/Units 06:43 Calcium 9.5 (8.4-10.2) mg/dL Pituitary panel 10/12/20 Range/Units 06:43 Sodium 134 L (137-145) mmol/L Potassium 4.9 (3.5-5.1) mmol/L Chloride 112 H (98-107) mmol/L Carbon Dioxide 14 L (22-30) mmol/L BUN 28 H (7-17) mg/dL Creatinine 1.42 H (0.52-1.04) mg/dL Glucose 241 H (74-99) mg/dL Calcium 9.5 (8.4-10.2) mg/dL Adrenal panel 10/12/20 Range/Units 06:43 Sodium 134 L (137-145) mmol/L Potassium 4.9 (3.5-5.1) mmol/L Chloride 112 H (98-107) mmol/L Carbon Dioxide 14 L (22-30) mmol/L BUN 28 H (7-17) mg/dL Creatinine 1.42 H (0.52-1.04) mg/dL Glucose 241 H (74-99) mg/dL Calcium 9.5 (8.4-10.2) mg/dL Assessment and Plan (1) C. difficile colitis Current Visit: Yes Status: Acute Code(s): A04.72 - ENTEROCOLITIS D/T CLOSTRIDIUM DIFFICILE, NOT SPCF RECUR SNOMED Code(s): 606431283 (2) Sepsis Current Visit: Yes Status: Acute Code(s): A41.9 - SEPSIS, UNSPECIFIED ORGANISM SNOMED Code(s): 52770844 (3) Fever Current Visit: Yes Status: Acute Code(s): R50.9 - FEVER, UNSPECIFIED SNOMED Code(s): 659278227 (4) CADE (acute kidney injury) Current Visit: No Status: Acute Code(s): N17.9 - ACUTE KIDNEY FAILURE, UNSPECIFIED SNOMED Code(s): 85243292 (5) Anemia Current Visit: No Status: Acute Code(s): D64.9 - ANEMIA, UNSPECIFIED SNOMED Code(s): 220742639 (6) Poorly controlled type 2 diabetes mellitus Current Visit: Yes Status: Acute Code(s): E11.65 - TYPE 2 DIABETES MELLITUS WITH HYPERGLYCEMIA SNOMED Code(s): 57932913 (7) Hyperglycemia Current Visit: Yes Status: Acute Code(s): R73.9 - HYPERGLYCEMIA, UNSPECIFIED SNOMED Code(s): 39789746 (8) Hyperglycemia due to type 2 diabetes mellitus Current Visit: Yes Status: Acute Code(s): E11.65 - TYPE 2 DIABETES MELLITUS WITH HYPERGLYCEMIA SNOMED Code(s): 659759090155781
[2020-10-12 16:52] LABS: Glucose,Whole Blood 180 mg/dL (75-99)
[2020-10-12 16:55] LABS: Appearance,Urine Turbid (Clear); Bilirubin,Urine Negative (Negative); Blood,Urine Small (Negative); Budding Yeast,Urine Many /hpf; Color,Urine Yellow; Glucose,Urine (UA) Negative (Negative); Hyaline Casts,Urine 10 /lpf (0-2); Ketones,Urine Negative (Negative); Leukocyte Esterase,Urine Large (Negative); Mucus,Urine Few /hpf; Nitrite,Urine Negative (Negative); Protein,Urine 1+ (Negative); RBC,Urine >182 /hpf (0-5); Specific Gravity,Urine 1.017 (1.001-1.035); Squamous Epithelial Cell,Urine 17 /hpf (0-4); Urobilinogen,Urine <2.0 mg/dL (<2.0); WBC,Urine >182 /hpf (0-5)
[2020-10-12 20:11] LABS: Glucose,Whole Blood 147 mg/dL (75-99)
[2020-10-12] MEDS: LATANOPROST 0.005% OPHTH DROPS 2.5 ML BTL BOTH EYES SCH (21:54)
[2020-10-12 22:56] LABS: % Iron Saturation 15.24 (12.00-45.00); Ferritin 1432.1 ng/mL (10.0-291.0)
[2020-10-13] MEDS: SODIUM CHLORIDE 0.9% 1,000 ML IV SCH ×3 (00:02→10:14)
[2020-10-13 02:09] LABS: Glucose,Whole Blood 184 mg/dL (75-99)
--- NOTE | 2020-10-13 06:13 | PN ---
PROGRESS NOTE DATE OF SERVICE: 10/12/2020 REASON FOR FOLLOW UP: 1. C difficile colitis. 2. UTI. 3. Left heel wound. INTERVAL HISTORY: The patient did have a low grade fever of 100.4 degrees Fahrenheit to 100 degrees. The patient is breathing comfortably on room air. The patient has some nausea but no vomiting. No chest pain, shortness of breath or cough. She had two loose stools today. No significant burning or frequency of urine or pain to the left heel wound area. PHYSICAL EXAMINATION: Blood pressure 120/56, pulse of 111, temperature 100.4. She is 98% on room air. General description is an elderly female lying in bed in no distress. Respiratory system: Unlabored breathing, clear to auscultation anteriorly. Heart S1, S2. Regular rate and rhythm. Abdomen: Soft, no tenderness. Left heel is currently dressed. No obvious drainage on the dressing. LABS: Repeat urine is still positive. Initial urine Keeley glabrata. Left ankle with Pseudomonas . DIAGNOSTIC IMPRESSION AND PLAN: 1. Patient with C difficile colitis slow clinical response to vancomycin to continue along with Questran for symptomatic relief. 2. The patient did have persistent low grade fever and significantly positive UA and concern for a symptomatic urinary tract infection, be added . 3. Left heel wound. No cellulitis. culture possible colonization. Local care to continue with Santyl and keep the area off the pressure. Family at the bedside, questions answered. MMODL / IJN: [id number] /
[2020-10-13 07:04] LABS: Glucose,Whole Blood 248 mg/dL (75-99)
[2020-10-13] MEDS ORDERED: PROPOFOL 10 MG/ML 20 ML VIAL IV ONE (08:33)
[2020-10-13] MEDS ORDERED: LIDOCAINE 1% INJ 10MG/ML (20 ML MDV) ONE (08:33)
[2020-10-13] MEDS ORDERED: IV FLUID CONTINUATION 1,000 ML IV ONE (08:37)
--- NOTE | 2020-10-13 09:09 | P.PCN ---
Date of Procedure: 10/13/20 Description of Procedure: PREOPERATIVE DIAGNOSIS: Symptomatic anemia Acute blood loss anemia POSTOPERATIVE DIAGNOSIS: Large duodenal ulcer with recent bleed Gastritis Diaphragmatic hiatal hernia OPERATION: Esophagogastroduodenoscopy with biopsies along antrum. SURGEON: Lisa Arreola MD ANESTHESIA: MAC. INDICATIONS: The patient is a 75-year-old female who presents with acute blood loss anemia and symptomatic anemia with fatigue. Benefits and risks of the procedure were described. Informed consent was obtained. DESCRIPTION: The patient was brought into the endoscopy suite and laid in the left lateral decubitus position. An Olympus gastroscope was passed along the posterior oropharynx down to the distal esophagus where the squamocolumnar junction was encountered at 36 cm from the incisors. The stomach was entered and no bile reflux was found. Additional findings are listed below. Biopsies with cold forceps were obtained of the antrum. The first through third portion of the duodenum was examined and remarkable for multiple duodenal ulcers including a large 1 cm recently bleeding ulcer. Retroflexion of the scope confirmed Hill grade 2 lower esophageal valve. The squamocolumnar junction demonstrated LA grade B erosive esophagitis. The stomach was desufflated. The patient tolerated the procedure well. FINDINGS: Squamocolumnar junction 36 cm from the incisors. Diaphragmatic hiatus at 37 cm. Hiatal hernia, 1 cm Hill grade 2 lower esophageal valve. LA grade B erosive esophagitis. Large 1 cm duodenal ulcer, second portion recent bleed Multiple punctate duodenal ulcers with duodenitis Gastritis RECOMMENDATIONS: 1. Discontinue antiplatelet therapy for recent bleeding ulcer for 5 days 2. Start Carafate 1 g twice a day to 3 times a day for 2 weeks 3. Protonix 40 mg twice a day for 2 weeks, then daily for 1 month 4. Repeat upper endoscopy in 1 month
[2020-10-13] MEDS: INSULIN ASPART (NovoLOG) 100 UNIT/ML VIAL SQ SCH ×7 (09:56→21:12)
[2020-10-13] MEDS: DONEPEZIL 5 MG TAB PO SCH (10:01)
[2020-10-13] MEDS: CHOLECALCIFEROL 25 MCG (1000 IU) TABLET PO SCH (10:02)
[2020-10-13] MEDS: amLODIPine 5 MG TAB PO SCH (10:02)
[2020-10-13] MEDS: HEPARIN SODIUM,PORCINE/PF 5,000 UNIT/0.5 ML SYRINGE SQ SCH ×2 (10:02→21:12)
[2020-10-13] MEDS: ATORVASTATIN 10 MG TAB PO SCH (10:02)
[2020-10-13] MEDS: OLANZapine 5 MG TAB PO SCH (10:02)
[2020-10-13] MEDS: METOPROLOL SUCCINATE (ER) 100 MG TAB.ER.24H PO SCH (10:02)
[2020-10-13 10:04] LABS: African American GFR (CKD) 42.8 (60.0-200.0); Anion Gap 8.7 mmol/L (4.00-12.00); BUN/Creat Ratio 19.29 Ratio (12.00-20.00); Calcium 8.6 mg/dL (8.7-10.3); Carbon Dioxide 16.3 mmol/L (21.6-31.8); HCT 29.7 % (37.2-46.3); HGB 8.7 g/dL (12.0-15.0); MCH 28.5 pg (27.0-32.0); MCHC 29.3 g/dL (32.0-37.0); MCV 97.4 fL (80.0-97.0); Mean Platelet Volume 9.3 fL (9.5-12.2); Non-African American GFR(CKD) 36.9 (60.0-200.0); Platelet Count 416 X 10*3/uL (140-440); Potassium 4.5 mmol/L (3.5-5.5); RBC 3.05 X 10*6/uL (4.10-5.20); RDW 14.6 % (11.5-14.5); WBC 16.85 X 10*3/uL (4.50-10.00)
[2020-10-13] MEDS: COLLAGENASE 250 UNIT/GM OINTMENT 30 GM TUBE TOPICAL SCH (10:04)
[2020-10-13] MEDS: PANTOPRAZOLE 40 MG TABLET PO SCH ×2 (10:06→17:30)
[2020-10-13] MEDS: VANCOMYCIN ORAL SOLUTION 250 MG/5 ML BOTTLE PO SCH ×4 (10:13→21:12)
[2020-10-13] MEDS: CLOPIDOGREL 75 MG TAB PO SCH (10:34)
[2020-10-13 11:31] LABS: Glucose,Whole Blood 346 mg/dL (75-99)
[2020-10-13] MEDS: VORICONAZOLE 200 MG TAB PO SCH ×2 (11:54→21:16)
[2020-10-13] MEDS: SUCRALFATE 1 GM TAB PO SCH ×2 (12:00→17:30)
--- NOTE | 2020-10-13 13:45 | P.PN ---
Subjective Progress Note Date: 10/13/20 Patient is a pleasant 75-year-old female came in with complains of diarrhea high-grade fevers generalized weakness and tiredness. Patient recently completed antibiotic therapy with ciprofloxacin about a week ago she was treated for urinary tract infection patient presented with urinary retention during her last hospitalization. Patient does have a language barrier which is Turkish. Able to get good history because daughter was present at the bedside. Patient was also significantly hypoglycemic patient is on Actos as well as a sulfonylurea for diabetes management. Her last hemoglobin A1c was from September 21 which was 6.3 patient appears to have chronic kidney disease with baseline creatinine of around 1.4 present creatinine is 1.68. Patient does have metabolic acidosis, which appears to be mostly nonambulatory gap. Chest x-ray did not show any significant abnormality, a year is mildly abnormal but no symptoms of a urinary tract infection, no evidence of UTI 10/10/2020 patient is examined at the bedside, RN was present with digital learning platforms manager machine. I was able was able to communicate with patient . Patient states that she is not having any abdominal pain, she denies any chest pain cough shortness of breath. Patient states that she is just tired. Patient was an Ateam at 2 AM due to a loss of IV access. Patient at that time was infusing D10 at 1 25 mL per hour. Patient's blood sugar was found to be 22. Patient had Accu-Cheks completed every hour and IV access was established. Patient's blood sugars that have been in the high 200s. Patient had a midline placed this afternoon after losing a second IV. Patient's blood sugar can be checked [id number]. Patient will be transitioned off of the D10 drip to 0.9ns at 75 mL per hour. Patient was found to have a positive culture for C. diff this admission and has been started on oral vancomycin. 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 Patient does have a history of chronic kidney disease stage III with a baseline creatinine of 1.4. Patient has poor oral intake, will be started on oral supplementation, constipation with nutritional services. Oral hypoglycemic agents will be on hold. Patient may resume sliding scale for hyperglycemia. Monitor closely for symptoms of hypoglycemia. Vargas meza's hemoglobin has dropped to 7.8 from 9.2. Will recheck hemoglobin at 11 PM as well as in the morning. Continue to monitor for signs of bleeding. Reports patient still having diarrhea. Patient's white blood cell count is stable at 11.5. Continue oral antibiotics. Vital signs are currently stable. 10/11/2020 Patient is examined at the bedside, EKG being performed. Patient denies any abdominal pain, denies cramping, denies nausea vomiting. Patient reports diarrhea. Per RN there are no signs of active bleed. Patient's heart rate was elevated this morning at 150, EKG obtained revealed normal rhythm, sinus tachycardia, lactic acid obtained, 0.8, fluids were increased to 100cc/hr. Joey ramírez's heart rate had improved down to 110 status post metoprolol. Patient continues on by mouth Vanco for a C. diff infection. Patient's hemoglobin today is 7.7, general surgery consultation to rule out an acute GI bleed. Patient reports no issues with urination. Patient's Coumadin and creatinine continue to be elevated. Continue to monitor. Patient's blood sugar current level 399, continue with NovoLog signs were insulin and consistent carb diet. Continue to monitor blood sugars. Encourage ambulation as tolerated. Urine culture finalized for Keeley glabrata. Nonhealing wound to the patient's left ankle finalized for gram-negative bacilli final cultures and sensitivity pending. Repeat chest x-ray today, was negative for any acute process. Patient continues to have temperature, T-max 100.6. Continue with local wound care with Santyl. Patient is primarily Turkish-speaking, floor space allocator available. 10/12/2020 Patient is examined today at bedside, patient is awake alert and oriented 3. Patient continues to have loose bowel movements. Per RN patient had to be straight cathed times one for urinary retention, repeat UA and culture has been ordered. Patient's ankle culture has been finalized, growing pseudomonas, antibiotic recommendations per infectious disease. Patient continues to have temperatures, T-max 100.7 in the last 24 hours, heart rate 118, blood pressure 126/57, patient is 96% on room air. Patient can of oral Tylenol as needed. Continue with IV fluids 0.9 at 125 continue to monitor for signs of sepsis. Repeat lactic acid drawn yesterday was a level of 0.08. Patient will continue on PO Vanco for C. diff colitis, recommendations per ID. Patient denies any chest pain, cough, shortness of breath. Patient states that her abdomen feels so-so. Patient is primarily Turkish-speaking. Patient's lab work today revealed a hemoglobin that is now stable at 8.8. White blood cell count is stable at 10.78. Patient's BUN and creatinine are essentially unchanged. Patient is hyperglycemic, continue with NovoLog sliding scale. Continue to encourage oral intake. Patient can continue with local wound care per wound care services. Patient was following the wound care center. 10/13/2020 Patient has an indwelling catheter placed from nursing services, for urinary retention. A UA and culture was sent, infectious disease have added oral voriconazole for a positive UTI. Patient continues on by mouth Vanco for C. diff colitis. Patient was evaluated by surgical services, who performed an EGD this morning, findings consistent with large 1 cm duodenal ulcer, second portion recent bleed, multiple punctate duodenal ulcers with duodenitis, gastritis, diaphragmatic hiatal hernia. There have been no signs of blood in the stool, dark stool per nursing services. Patient is continuing with loose brown stools. In addition patient's left ankle wound has grown Pseudomonas, no further antibiotic recommendations from ID. Patient continues to have temps, T-max 100.4 in the last 24 hours. Patient's blood pressure this morning 170/70, heart rate 114. Continue with IV fluids 0.9 at 125, recheck blood pressure. Blood sugars continue to be elevated intermittently, continue with sliding scale coverage as needed, with scheduled insulin. Hemoglobin stable today at 8.8. Patient's Plavix has been discontinued. Patient wasn't started on Carafate and Protonix for GI prophylaxis. Today patient denies chest pain, reports her stomach feels so-so. Patient is primarily Turkish-speaking, floor space allocator available when needed. Will consult PT/OT, increase activity level as tolerated. ROS: Constitutional: Denied any fatigue denied any fever. Cardio vascular: denied any chest pain, palpitations Gastrointestinal denied any nausea vomiting, reports diarrhea Pulmonary: Denied any shortness of breath cough Neurologic denied any new focal deficits All inpatient medications were reviewed and appropriate changes in these medic ations as dictated in the interval history and assessment and plan. PHYSICAL EXAMINATION: GENERAL: The patient is alert and oriented x3, not in any acute distress. Well developed, well nourished. HEENT: Pupils are round and equally reacting to light. EOMI. No scleral icterus. No conjunctival pallor. Normocephalic, atraumatic. No pharyngeal erythema. No thyromegaly. CARDIOVASCULAR: S1 and S2 present. No murmurs, rubs, or gallops. PULMONARY: Chest is clear to auscultation, no wheezing or crackles. ABDOMEN: Soft, nontender, nondistended, hyperactive bowel sounds. MUSCULOSKELETAL: No joint swelling or deformity. EXTREMITIES: No cyanosis, clubbing, or pedal edema. NEUROLOGICAL: Gross neurological examination did not reveal any focal deficits. SKIN: Nonhealing wound on buttock and left ankle/heel, Assessment and plan -Sepsis: Secondary to C. diff colitis, patient was started on oral vancomycin. Patient is tachycardic, this may be related to sepsis can be reflux as patient takes metoprolol and clonidine. Patient will restart back on metoprolol considering the sepsis patient will not be started on clonidine at this time -Severe hypoglycemia, has resolved, patient has been transitioned off of the D5 drip, patient is now on normal saline. Continue with the long sliding scale as needed continue to hold oral hypoglycemic agents. -Carotid artery disease continue on current cardiac medications -Hypertension patient was resumed on beta milli and amlodipine holding of clonidine -diabetes mellitus type 2, With hyperglycemia. Patient oral hypoglycemic agents are on hold related to episodes of hypoglycemia. Patient will be started on oral protein supplementation. Encourage oral intake. Continue to monitor blood sugars closely. Caution with adding oral hypoglycemic agents due to decreased appetite. Continue with sliding scale insulin, scheduled insulin. -Diabetic nephropathy chronic kidney disease stage III baseline creatinine of around 1.4, creatinine today 1.42. Anemia secondary to an acute bleeding duodenal ulcer, gastritis - EGD performed today, holding Plavix for 5 days Leukocytosis, related to C. diff colitis infection with sepsis. Lactic acid on admission 1.3, down to 0.8. Continue with oral antibiotics. Wound cultures positive for Pseudomonas. Diabetes mellitus type 2, with hyperglycemia, with nonhealing ulcerspatient is maintained on Amaryl, actos at home currently on hold related to episodes of hypoglycemia. Coverage via sliding for NovoLog, will add small dose of scheduled insulin with parameters. Tight glycemic control for wound healing. Nonhealing pressure ulcer, patient is following with wound care, continue with current wound care recommendations. Urinary retention - indwelling catheter in place, repeat UA positive, started on oral antifungals. GI prophylaxis Protonix, Carafate -DVT prophylaxis, ambulation as tolerated, subcu heparin, Patient was monitored closely for C. diff colitis infection. Patient is continued on oral vancomycin. Patient continue metoprolol for elevated heart rate. Patient to continue with 0.9 normal saline at 1 25 mL per hour, for hydration. Patient can be resumed on NovoLog sliding scale. Oral hypoglycemic agents will still be on hold. Wound care is following for local wound management of a non healing pressure ulcer on her buttock, as well as a heel ulcer. Patient is followed in the wound care center and is scheduled for an appointment next . check CBC and BMP in the morning. Pending recommendations from infectious disease for a positive wound culture for Pseudomonas. Patient has an indwelling catheter placed for urinary retention, added on oral antifungals from ID. Patient had an EGD performed today, which revealed a duodenal ulcer that was recently bleeding, gastritis, diaphragmatic hernia. Patient is recommended to have an EGD outpatient in 1 month to follow- up. Patient is placed on Carafate and Protonix for prophylaxis via surgical services, Plavix and hold for 5 days. Continue to monitor hemoglobin closely. Continue to encourage ambulation as tolerated. PT OT consultation. Objective - Vital Signs Vital signs: Vital Signs Temp 99.7 F H 10/13/20 07:46 Pulse 114 H 10/13/20 07:46 Resp 20 10/13/20 07:46 BP 170/70 10/13/20 07:46 Pulse Ox 98 10/13/20 07:46 Intake & Output 10/12/20 10/13/20 10/13/20 18:59 06:59 18:59 Intake Total 540 1700 100 Output Total 500 650 Balance 40 1050 100 Intake: IV 100 Intake, IV Titration 1500 Amount Sodium Chloride 0.9% 1, 1500 000 ml @ 125 mls/hr IV . Q8H [facility] Rx#:[id number] Oral 540 200 Output: Urine 500 650 Other: Voiding Method Indwelling Catheter Indwelling Catheter # Bowel Movements 4 4 - Labs CBC & Chem 7: 10/13/20 04:47 10/13/20 04:47 Labs: Abnormal Lab Results - Last 24 Hours (Table) 10/12/20 10/12/20 10/12/20 Range/Units 06:43 15:58 16:50 WBC (4.50-10.00) X 10*3/uL RBC (4.10-5.20) X 10*6/uL Hgb (12.0-15.0) g/dL Hct (37.2-46.3) % MCV (80.0-97.0) fL MCHC (32.0-37.0) g/dL RDW (11.5-14.5) % MPV (9.5-12.2) fL Chloride (96-109) mmol/L Carbon Dioxide (21.6-31.8) mmol/L Est GFR (CKD-EPI)AfAm (60.0-200.0) Est GFR (CKD-EPI)NonAf (60.0-200.0) Glucose (70-110) mg/dL POC Glucose (mg/dL) 180 H (75-99) mg/dL Calcium (8.7-10.3) mg/dL Iron 25 L (50-170) ug/dL TIBC 164 L (228-460) ug/dL Ferritin 1432.1 H (10.0-291.0) ng/mL Urine Appearance Turbid H (Clear) Urine Protein 1+ H (Negative) Urine Blood Small H (Negative) Ur Leukocyte Esterase Large H (Negative) Urine RBC >182 H (0-5) /hpf Urine WBC >182 H (0-5) /hpf Ur Squamous Epith Cells 17 H (0-4) /hpf Hyaline Casts 10 H (0-2) /lpf Urine Mucus Few H (None) /hpf Urine Yeast (Budding) Many H (None) /hpf 10/12/20 10/13/20 10/13/20 Range/Units 20:09 02:07 04:47 WBC 16.85 H (4.50-10.00) X 10*3/uL RBC 3.05 L (4.10-5.20) X 10*6/uL Hgb 8.7 L (12.0-15.0) g/dL Hct 29.7 L (37.2-46.3) % MCV 97.4 H (80.0-97.0) fL MCHC 29.3 L (32.0-37.0) g/dL RDW 14.6 H (11.5-14.5) % MPV 9.3 L (9.5-12.2) fL Chloride (96-109) mmol/L Carbon Dioxide (21.6-31.8) mmol/L Est GFR (CKD-EPI)AfAm (60.0-200.0) Est GFR (CKD-EPI)NonAf (60.0-200.0) Glucose (70-110) mg/dL POC Glucose (mg/dL) 147 H 184 H (75-99) mg/dL Calcium (8.7-10.3) mg/dL Iron (50-170) ug/dL TIBC (228-460) ug/dL Ferritin (10.0-291.0) ng/mL Urine Appearance (Clear) Urine Protein (Negative) Urine Blood (Negative) Ur Leukocyte Esterase (Negative) Urine RBC (0-5) /hpf Urine WBC (0-5) /hpf Ur Squamous Epith Cells (0-4) /hpf Hyaline Casts (0-2) /lpf Urine Mucus (None) /hpf Urine Yeast (Budding) (None) /hpf 10/13/20 10/13/20 10/13/20 Range/Units 04:47 06:59 11:28 WBC (4.50-10.00) X 10*3/uL RBC (4.10-5.20) X 10*6/uL Hgb (12.0-15.0) g/dL Hct (37.2-46.3) % MCV (80.0-97.0) fL MCHC (32.0-37.0) g/dL RDW (11.5-14.5) % MPV (9.5-12.2) fL Chloride 112 H (96-109) mmol/L Carbon Dioxide 16.3 L (21.6-31.8) mmol/L Est GFR (CKD-EPI)AfAm 42.8 L (60.0-200.0) Est GFR (CKD-EPI)NonAf 36.9 L (60.0-200.0) Glucose 231 H (70-110) mg/dL POC Glucose (mg/dL) 248 H 346 H (75-99) mg/dL Calcium 8.6 L (8.7-10.3) mg/dL Iron (50-170) ug/dL TIBC (228-460) ug/dL Ferritin (10.0-291.0) ng/mL Urine Appearance (Clear) Urine Protein (Negative) Urine Blood (Negative) Ur Leukocyte Esterase (Negative) Urine RBC (0-5) /hpf Urine WBC (0-5) /hpf Ur Squamous Epith Cells (0-4) /hpf Hyaline Casts (0-2) /lpf Urine Mucus (None) /hpf Urine Yeast (Budding) (None) /hpf Microbiology - Last 24 Hours (Table) 10/09/20 12:30 Anaerobic Culture - Final Ankle - Left 10/12/20 15:58 Urine Culture - Preliminary Urine,Voided 10/09/20 12:30 Gram Stain - Final Ankle - Left Wound Culture - Final Pseudomonas fluorescens/putida Assessment and Plan Time with Patient: Greater than 30
[2020-10-13 16:18] LABS: Glucose,Whole Blood 174 mg/dL (75-99)
[2020-10-13 20:39] LABS: Glucose,Whole Blood 160 mg/dL (75-99)
[2020-10-13] MEDS: LATANOPROST 0.005% OPHTH DROPS 2.5 ML BTL BOTH EYES SCH (21:16)
[2020-10-14] MEDS: SODIUM CHLORIDE 0.9% 1,000 ML IV SCH ×3 (00:15→11:58)
[2020-10-14 03:02] LABS: Glucose,Whole Blood 161 mg/dL (75-99)
[2020-10-14 07:20] LABS: Glucose,Whole Blood 226 mg/dL (75-99)
--- NOTE | 2020-10-14 08:00 | PN ---
PROGRESS NOTE DATE OF SERVICE: 10/13/2020 REASON FOR FOLLOW UP: 1. C difficile colitis. 2. UTI. INTERVAL HISTORY: Patient is afebrile. The patient is breathing comfortably today. Denies having any chest pain, shortness of breath or cough. No abdominal pain. Diarrhea . PHYSICAL EXAMINATION: Blood pressure 114/69, pulse of 108, temperature 99. She is 97% on room air. General description is an elderly female lying in bed in no distress. Respiratory system: Unlabored breathing, clear to auscultation anteriorly. Heart S1, S2. Regular rate and rhythm. Abdomen soft. No tenderness. Extremities are no edema of the feet. LABS: Hemoglobin 8.6, white count 15.8. BUN of 22, creatinine 1.4. DIAGNOSTIC IMPRESSION AND PLAN: 1. Patient with catheter associated urinary tract infection. Urine is Keeley glabrata for which the patient was started on Vfend. 2. Patient with C difficile colitis continue oral vancomycin and the patient has been clinically responding. 3. Left heel wound, positive culture, Pseudomonas. Wound bed is infected and recommend antibiotics for the same. MMODL / IJN: [id number] /
[2020-10-14] MEDS: VORICONAZOLE 200 MG TAB PO SCH ×2 (08:06→22:05)
[2020-10-14] MEDS: OLANZapine 5 MG TAB PO SCH (08:06)
[2020-10-14] MEDS: SUCRALFATE 1 GM TAB PO SCH ×3 (08:06→17:08)
[2020-10-14] MEDS: HEPARIN SODIUM,PORCINE/PF 5,000 UNIT/0.5 ML SYRINGE SQ SCH ×2 (08:07→22:05)
[2020-10-14] MEDS: METOPROLOL SUCCINATE (ER) 100 MG TAB.ER.24H PO SCH (08:07)
[2020-10-14] MEDS: INSULIN ASPART (NovoLOG) 100 UNIT/ML VIAL SQ SCH ×7 (08:07→22:05)
[2020-10-14] MEDS: PANTOPRAZOLE 40 MG TABLET PO SCH ×2 (08:07→17:08)
[2020-10-14] MEDS: DONEPEZIL 5 MG TAB PO SCH (08:07)
[2020-10-14] MEDS: CHOLECALCIFEROL 25 MCG (1000 IU) TABLET PO SCH (08:07)
[2020-10-14] MEDS: amLODIPine 5 MG TAB PO SCH (08:07)
[2020-10-14] MEDS: ATORVASTATIN 10 MG TAB PO SCH (08:07)
[2020-10-14] MEDS: VANCOMYCIN ORAL SOLUTION 250 MG/5 ML BOTTLE PO SCH ×4 (08:19→22:05)
[2020-10-14] MEDS ORDERED: METOPROLOL SUCCINATE (ER) 50 MG TAB.ER.24H PO STA (09:00)
[2020-10-14] MEDS: ACETAMINOPHEN TAB 325 MG TAB PO PRN ×3 (10:40→22:06)
[2020-10-14 11:04] LABS: HCT 25.4 % (37.2-46.3); HGB 7.6 g/dL (12.0-15.0); MCH 28.4 pg (27.0-32.0); MCHC 29.9 g/dL (32.0-37.0); MCV 94.8 fL (80.0-97.0); Mean Platelet Volume 9.1 fL (9.5-12.2); Platelet Count 390 X 10*3/uL (140-440); RBC 2.68 X 10*6/uL (4.10-5.20); RDW 14.9 % (11.5-14.5); WBC 15.57 X 10*3/uL (4.50-10.00)
[2020-10-14 11:45] LABS: Glucose,Whole Blood 220 mg/dL (75-99)
[2020-10-14 14:00] LABS: African American GFR (CKD) 51.6 (60.0-200.0); Anion Gap 8.3 mmol/L (4.00-12.00); BUN/Creat Ratio 19.17 Ratio (12.00-20.00); Calcium 8.3 mg/dL (8.7-10.3); Carbon Dioxide 18.7 mmol/L (21.6-31.8); Non-African American GFR(CKD) 44.5 (60.0-200.0); Potassium 4.2 mmol/L (3.5-5.5)
--- NOTE | 2020-10-14 14:04 | P.PN ---
Subjective Progress Note Date: 10/14/20 CHIEF COMPLAINT: Anemia HISTORY OF PRESENT ILLNESS: Patient is status post EGD. Patient noted to have a large duodenal ulcer with recent bleed, gastritis and diaphragmatic hiatal hernia. Patient currently on Protonix and Carafate. Patient denies any abdominal pain. She is tolerating carb consistent diet. She setting of a bedside chair. Patient is still having diarrhea. Afebrile. WBC is 15.57 he moglobin 7.6 PHYSICAL EXAM: VITAL SIGNS: Reviewed GENERAL: Well-developed in no acute distress. HEENT: No sclera icterus. Extraocular movements grossly intact. Moist buccal mucosa. Head is atraumatic, normocephalic. Hears conversational speech. No nasal drainage. NECK: Supple without lymphadenopathy. CHEST: Non-labored respirations and equal bilateral excursions. CARDIOVASCULAR: Palpable 2+ radial pulses. ABDOMEN: Soft. Nondistended. Nontender. MUSCULOSKELETAL: No clubbing or cyanosis. NEUROLOGIC: No focal or lateralizing signs. Cranial nerves II through XII grossly intact. PSYCH: Appropriate affect. Alert and oriented to person, place and time. SKIN: Well perfused. Good skin turgor. ASSESSMENT: 1. Large duodenal ulcer with recent bleed 2. Gastritis 3. Diaphragmatic hiatal hernia PLAN: 1. Discontinue Plavix therapy for recent bleeding ulcer for 5 days 2. Continue Carafate 1 g twice a day to 3 times a day for 2 weeks 3. Continue Protonix 40 mg twice a day for 2 weeks, then daily for 1 month 4. Repeat upper endoscopy in 1 month Physician Professor [employer] note has been reviewed by physician. Signing provider agrees with the documented findings, assessment, and plan of care. Objective - Vital Signs Vital signs: Vital Signs Temp 99.1 F 10/14/20 07:49 Pulse 123 H 10/14/20 07:49 Resp 20 10/14/20 07:49 BP 138/63 10/14/20 07:49 Pulse Ox 99 10/14/20 07:49 Intake & Output 10/13/20 10/14/20 10/14/20 18:59 06:59 18:59 Intake Total 100 Output Total 500 825 Balance -400 -825 Weight 66.769 kg Intake: IV 100 Output: Urine 500 825 Other: Voiding Method Indwelling Catheter Indwelling Catheter Indwelling Catheter # Voids 1 # Bowel Movements 3 3 1 - Labs CBC & Chem 7: 10/14/20 07:15 10/14/20 07:15 Labs: Abnormal Lab Results - Last 24 Hours (Table) 10/13/20 10/13/20 10/14/20 Range/Units 16:16 20:37 03:00 WBC (4.50-10.00) X 10*3/uL RBC (4.10-5.20) X 10*6/uL Hgb (12.0-15.0) g/dL Hct (37.2-46.3) % MCHC (32.0-37.0) g/dL RDW (11.5-14.5) % MPV (9.5-12.2) fL Chloride (96-109) mmol/L Carbon Dioxide (21.6-31.8) mmol/L Est GFR (CKD-EPI)AfAm (60.0-200.0) Est GFR (CKD-EPI)NonAf (60.0-200.0) Glucose (70-110) mg/dL POC Glucose (mg/dL) 174 H 160 H 161 H (75-99) mg/dL Calcium (8.7-10.3) mg/dL 10/14/20 10/14/20 10/14/20 Range/Units 07:15 07:15 07:18 WBC 15.57 H (4.50-10.00) X 10*3/uL RBC 2.68 L (4.10-5.20) X 10*6/uL Hgb 7.6 L (12.0-15.0) g/dL Hct 25.4 L (37.2-46.3) % MCHC 29.9 L (32.0-37.0) g/dL RDW 14.9 H (11.5-14.5) % MPV 9.1 L (9.5-12.2) fL Chloride 110 H (96-109) mmol/L Carbon Dioxide 18.7 L (21.6-31.8) mmol/L Est GFR (CKD-EPI)AfAm 51.6 L (60.0-200.0) Est GFR (CKD-EPI)NonAf 44.5 L (60.0-200.0) Glucose 216 H (70-110) mg/dL POC Glucose (mg/dL) 226 H (75-99) mg/dL Calcium 8.3 L (8.7-10.3) mg/dL 10/14/20 Range/Units 11:43 WBC (4.50-10.00) X 10*3/uL RBC (4.10-5.20) X 10*6/uL Hgb (12.0-15.0) g/dL Hct (37.2-46.3) % MCHC (32.0-37.0) g/dL RDW (11.5-14.5) % MPV (9.5-12.2) fL Chloride (96-109) mmol/L Carbon Dioxide (21.6-31.8) mmol/L Est GFR (CKD-EPI)AfAm (60.0-200.0) Est GFR (CKD-EPI)NonAf (60.0-200.0) Glucose (70-110) mg/dL POC Glucose (mg/dL) 220 H (75-99) mg/dL Calcium (8.7-10.3) mg/dL Microbiology - Last 24 Hours (Table) 10/12/20 15:58 Urine Culture - Preliminary Urine,Voided Yeast species 10/09/20 12:30 Anaerobic Culture - Final Ankle - Left
--- NOTE | 2020-10-14 14:41 | P.PN ---
Subjective Progress Note Date: 10/14/20 Patient is a pleasant 75-year-old female came in with complains of diarrhea high-grade fevers generalized weakness and tiredness. Patient recently completed antibiotic therapy with ciprofloxacin about a week ago she was treated for urinary tract infection patient presented with urinary retention during her last hospitalization. Patient does have a language barrier which is Citizen [place]. Able to get good history because daughter was present at the bedside. Patient was also significantly hypoglycemic patient is on Actos as well as a sulfonylurea for diabetes management. Her last hemoglobin A1c was from September 21 which was 6.3 patient appears to have chronic kidney disease with baseline creatinine of around 1.4 present creatinine is 1.68. Patient does have metabolic acidosis, which appears to be mostly nonambulatory gap. Chest x-ray did not show any significant abnormality, a year is mildly abnormal but no symptoms of a urinary tract infection, no evidence of UTI 10/10/2020 patient is examined at the bedside, RN was present with sales development coordinator machine. I was able was able to communicate with patient . Patient states that she is not having any abdominal pain, she denies any chest pain cough shortness of breath. Patient states that she is just tired. Patient was an Ateam at 2 AM due to a loss of IV access. Patient at that time was infusing D10 at 1 25 mL per hour. Patient's blood sugar was found to be 22. Patient had Accu-Cheks completed every hour and IV access was established. Patient's blood sugars that have been in the high 200s. Patient had a midline placed this afternoon after losing a second IV. Patient's blood sugar can be checked [id number]. Patient will be transitioned off of the D10 drip to 0.9ns at 75 mL per hour. Patient was found to have a positive culture for C. diff this admission and has been started on oral vancomycin. 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 Patient does have a history of chronic kidney disease stage III with a baseline creatinine of 1.4. Patient has poor oral intake, will be started on oral supplementation, constipation with nutritional services. Oral hypoglycemic agents will be on hold. Patient may resume sliding scale for hyperglycemia. Monitor closely for symptoms of hypoglycemia. Vargas meza's hemoglobin has dropped to 7.8 from 9.2. Will recheck hemoglobin at 11 PM as well as in the morning. Continue to monitor for signs of bleeding. Reports patient still having diarrhea. Patient's white blood cell count is stable at 11.5. Continue oral antibiotics. Vital signs are currently stable. 10/11/2020 Patient is examined at the bedside, EKG being performed. Patient denies any abdominal pain, denies cramping, denies nausea vomiting. Patient reports diarrhea. Per RN there are no signs of active bleed. Patient's heart rate was elevated this morning at 150, EKG obtained revealed normal rhythm, sinus tachycardia, lactic acid obtained, 0.8, fluids were increased to 100cc/hr. Joey ramírez's heart rate had improved down to 110 status post metoprolol. Patient continues on by mouth Vanco for a C. diff infection. Patient's hemoglobin today is 7.7, general surgery consultation to rule out an acute GI bleed. Patient reports no issues with urination. Patient's Coumadin and creatinine continue to be elevated. Continue to monitor. Patient's blood sugar current level 399, continue with NovoLog signs were insulin and consistent carb diet. Continue to monitor blood sugars. Encourage ambulation as tolerated. Urine culture finalized for Renato glabrata. Nonhealing wound to the patient's left ankle finalized for gram-negative bacilli final cultures and sensitivity pending. Repeat chest x-ray today, was negative for any acute process. Patient continues to have temperature, T-max 100.6. Continue with local wound care with [facility]. Patient is primarily Citizen [place]-speaking, advertising writer available. 10/12/2020 Patient is examined today at bedside, patient is awake alert and oriented 3. Patient continues to have loose bowel movements. Per RN patient had to be straight cathed times one for urinary retention, repeat UA and culture has been ordered. Patient's ankle culture has been finalized, growing pseudomonas, antibiotic recommendations per infectious disease. Patient continues to have temperatures, T-max 100.7 in the last 24 hours, heart rate 118, blood pressure 126/57, patient is 96% on room air. Patient can of oral Tylenol as needed. Continue with IV fluids 0.9 at 125 continue to monitor for signs of sepsis. Repeat lactic acid drawn yesterday was a level of 0.08. Patient will continue on PO Vanco for C. diff colitis, recommendations per ID. Patient denies any chest pain, cough, shortness of breath. Patient states that her abdomen feels so-so. Patient is primarily Citizen [place]-speaking. Patient's lab work today revealed a hemoglobin that is now stable at 8.8. White blood cell count is stable at 10.78. Patient's BUN and creatinine are essentially unchanged. Patient is hyperglycemic, continue with NovoLog sliding scale. Continue to encourage oral intake. Patient can continue with local wound care per wound care services. Patient was following the wound care center. 10/13/2020 Patient has an indwelling catheter placed from nursing services, for urinary retention. A UA and culture was sent, infectious disease have added oral voriconazole for a positive UTI. Patient continues on by mouth Vanco for C. diff colitis. Patient was evaluated by surgical services, who performed an EGD this morning, findings consistent with large 1 cm duodenal ulcer, second portion recent bleed, multiple punctate duodenal ulcers with duodenitis, gastritis, diaphragmatic hiatal hernia. There have been no signs of blood in the stool, dark stool per nursing services. Patient is continuing with loose brown stools. In addition patient's left ankle wound has grown Pseudomonas, no further antibiotic recommendations from ID. Patient continues to have temps, T-max 100.4 in the last 24 hours. Patient's blood pressure this morning 170/70, heart rate 114. Continue with IV fluids 0.9 at 125, recheck blood pressure. Blood sugars continue to be elevated intermittently, continue with sliding scale coverage as needed, with scheduled insulin. Hemoglobin stable today at 8.8. Patient's Plavix has been discontinued. Patient wasn't started on Carafate and Protonix for GI prophylaxis. Today patient denies chest pain, reports her stomach feels so-so. Patient is primarily Citizen [place]-speaking, advertising writer available when needed. Will consult PT/OT, increase activity level as tolerated. 10/14/2020 patient is evaluated sitting up in the chair today. patient states that her belly feels so/so. She is still having diarrhea, loose per RN. Patient continues on oral vanco and was started on questran via ID services. Patient continues with IDC for urinary retention, has been started on oral vfen for positive renato urine culture. Patient was evaluated by PT today, who recommends 24/ post discharge with either homecare services or [facility]. Patient continues to be febrile, t-max 99.7 in the last 24 hours, which is slowly improving. Patients HR is 120 sinus tachycardia, she was started on toprol XL 100 mg po daily, without improvement. She was increased to 150 mg PO Daily. Pt continues on IV fluids. She has a fair appetite. Continue to encourage ambulation. ROS: Constitutional: Denied any fatigue denied any fever. Cardio vascular: denied any chest pain, palpitations Gastrointestinal denied any nausea vomiting, reports diarrhea Pulmonary: Denied any shortness of breath cough Neurologic denied any new focal deficits All inpatient medications were reviewed and appropriate changes in these medications as dictated in the interval history and assessment and plan. PHYSICAL EXAMINATION: GENERAL: The patient is alert and oriented x3, not in any acute distress. Well developed, well nourished. HEENT: Pupils are round and equally reacting to light. EOMI. No scleral icterus. No conjunctival pallor. Normocephalic, atraumatic. No pharyngeal erythema. No thyromegaly. CARDIOVASCULAR: S1 and S2 present. No murmurs, rubs, or gallops. PULMONARY: Chest is clear to auscultation, no wheezing or crackles. ABDOMEN: Soft, nontender, nondistended, hyperactive bowel sounds. MUSCULOSKELETAL: No joint swelling or deformity. EXTREMITIES: No cyanosis, clubbing, or pedal edema. NEUROLOGICAL: Gross neurological examination did not reveal any focal deficits. SKIN: Nonhealing wound on buttock and left ankle/heel, Assessment and plan -Sepsis: Secondary to C. diff colitis, patient was started on oral vancomycin. Patient is tachycardic, this may be related to sepsis can be reflux as patient takes metoprolol and clonidine. Patient will restart back on metoprolol considering the sepsis patient will not be started on clonidine at this time -Severe hypoglycemia, has resolved, patient has been transitioned off of the D5 drip, patient is now on normal saline. Continue with the long sliding scale as needed continue to hold oral hypoglycemic agents. -Carotid artery disease continue on current cardiac medications -Hypertension patient was resumed on beta milli and amlodipine holding of clonidine -diabetes mellitus type 2, With hyperglycemia. Patient oral hypoglycemic agents are on hold related to episodes of hypoglycemia. Patient will be started on oral protein supplementation. Encourage oral intake. Continue to monitor blood sugars closely. Caution with adding oral hypoglycemic agents due to decreased appetite. Continue with sliding scale insulin, scheduled insulin. -Diabetic nephropathy chronic kidney disease stage III baseline creatinine of around 1.4, creatinine today 1.2. Anemia secondary to an acute bleeding duodenal ulcer, gastritis - EGD performed today, holding Plavix for 5 days, can resume on 10/18/20. Leukocytosis, related to C. diff colitis infection with sepsis. Lactic acid on admission 1.3, down to 0.8. Continue with oral antibiotics. Wound cultures positive for Pseudomonas. WBC today 15.5 - improving. Diabetes mellitus type 2, with hyperglycemia, with nonhealing ulcerspatient is maintained on Amaryl, actos at home currently on hold related to episodes of hypoglycemia. Coverage via sliding for NovoLog, will add small dose of scheduled insulin with parameters. Tight glycemic control for wound healing. Nonhealing pressure ulcer, patient is following with wound care, continue with current wound care recommendations. Urinary retention - indwelling catheter in place, repeat UA positive, started on oral antifungals. GI prophylaxis Protonix, Carafate -DVT prophylaxis, ambulation as tolerated, subcu heparin, Patient was monitored closely for C. diff colitis infection. Patient is continued on oral vancomycin. Started on questran. Patient continue metoprolol for elevated heart rate. Patient to continue with 0.9 normal saline at 125 mL per hour, for hydration. Patient can be resumed on NovoLog sliding scale. Oral hypoglycemic agents will still be on hold. Wound care is following for local wound management of a non healing pressure ulcer on her buttock, as well as a heel ulcer. Patient is followed in the wound care center and is scheduled for an appointment next . check CBC and BMP in the morning. Pending recommendations from infectious disease for a positive wound culture for Pseudomonas. Patient has an indwelling catheter placed for urinary retention, added on oral antifungals from ID. Patient had an EGD performed today, which revealed a duodenal ulcer that was recently bleeding, gastritis, diaphragmatic hernia. Patient is recommended to have an EGD outpatient in 1 month to follow- up. Patient is placed on Carafate and Protonix for prophylaxis via surgical services, Plavix and hold for 5 days. Continue to monitor hemoglobin closely. Continue to encourage ambulation as tolerated. PT OT consultation. Toprol has been increasing for sinus tachycardia. PT evaluation today recommends when medically stable home with HC vs [facility]. Objective - Vital Signs Vital signs: Vital Signs Temp 99.1 F 08/10/21 07:49 Pulse 123 H 10/14/20 07:49 Resp 20 10/14/20 07:49 BP 138/63 10/14/20 07:49 Pulse Ox 99 10/14/20 07:49 Intake & Output 10/13/20 10/14/20 10/14/20 18:59 06:59 18:59 Intake Total 100 Output Total 500 825 Balance -400 -825 Weight 66.769 kg Intake: IV 100 Output: Urine 500 825 Other: Voiding Method Indwelling Catheter Indwelling Catheter Indwelling Catheter # Voids 1 # Bowel Movements 3 3 1 - Labs CBC & Chem 7: 10/14/20 07:15 10/14/20 07:15 Labs: Abnormal Lab Results - Last 24 Hours (Table) 10/13/20 10/13/20 10/14/20 Range/Units 16:16 20:37 03:00 WBC (4.50-10.00) X 10*3/uL RBC (4.10-5.20) X 10*6/uL Hgb (12.0-15.0) g/dL Hct (37.2-46.3) % MCHC (32.0-37.0) g/dL RDW (11.5-14.5) % MPV (9.5-12.2) fL Chloride (96-109) mmol/L Carbon Dioxide (21.6-31.8) mmol/L Est GFR (CKD-EPI)AfAm (60.0-200.0) Est GFR (CKD-EPI)NonAf (60.0-200.0) Glucose (70-110) mg/dL POC Glucose (mg/dL) 174 H 160 H 161 H (75-99) mg/dL Calcium (8.7-10.3) mg/dL 10/14/20 10/14/20 10/14/20 Range/Units 07:15 07:15 07:18 WBC 15.57 H (4.50-10.00) X 10*3/uL RBC 2.68 L (4.10-5.20) X 10*6/uL Hgb 7.6 L (12.0-15.0) g/dL Hct 25.4 L (37.2-46.3) % MCHC 29.9 L (32.0-37.0) g/dL RDW 14.9 H (11.5-14.5) % MPV 9.1 L (9.5-12.2) fL Chloride 110 H (96-109) mmol/L Carbon Dioxide 18.7 L (21.6-31.8) mmol/L Est GFR (CKD-EPI)AfAm 51.6 L (60.0-200.0) Est GFR (CKD-EPI)NonAf 44.5 L (60.0-200.0) Glucose 216 H (70-110) mg/dL POC Glucose (mg/dL) 226 H (75-99) mg/dL Calcium 8.3 L (8.7-10.3) mg/dL 10/14/20 Range/Units 11:43 WBC (4.50-10.00) X 10*3/uL RBC (4.10-5.20) X 10*6/uL Hgb (12.0-15.0) g/dL Hct (37.2-46.3) % MCHC (32.0-37.0) g/dL RDW (11.5-14.5) % MPV (9.5-12.2) fL Chloride (96-109) mmol/L Carbon Dioxide (21.6-31.8) mmol/L Est GFR (CKD-EPI)AfAm (60.0-200.0) Est GFR (CKD-EPI)NonAf (60.0-200.0) Glucose (70-110) mg/dL POC Glucose (mg/dL) 220 H (75-99) mg/dL Calcium (8.7-10.3) mg/dL Microbiology - Last 24 Hours (Table) 10/12/20 15:58 Urine Culture - Preliminary Urine,Voided Yeast species Assessment and Plan Time with Patient: Greater than 30
[2020-10-14] MEDS: COLLAGENASE 250 UNIT/GM OINTMENT 30 GM TUBE TOPICAL SCH (15:53)
[2020-10-14 17:17] LABS: Glucose,Whole Blood 242 mg/dL (75-99)
[2020-10-14 21:47] LABS: Glucose,Whole Blood 189 mg/dL (75-99)
[2020-10-14] MEDS: LATANOPROST 0.005% OPHTH DROPS 2.5 ML BTL BOTH EYES SCH (22:01)
[2020-10-14] MEDS: CHOLESTYRAMINE (WITH SUGAR) 4 GM PACKET PO SCH (22:05)
--- NOTE | 2020-10-14 23:21 | PN ---
PROGRESS NOTE DATE OF SERVICE: 10/14/2020 REASON FOR FOLLOW UP: C diff UTI. INTERVAL HISTORY: Patient is afebrile. No fever the last 24 hours. The patient is breathing comfortably. Still having diarrhea stool with the last 1 and 3 this morning. Denies any abdominal pain. No nausea, vomiting, chest pain, shortness of breath or cough. PHYSICAL EXAMINATION: Blood pressure 126/59, pulse of 111, temp is 98.3. She is 97% on room air. General description is an elderly female lying in bed in no distress. Respiratory system: Unlabored breathing, clear to auscultation anteriorly. Heart S1, S2. Regular rate and rhythm. Abdomen: Soft, no tenderness. Left knee is currently dressed. No drainage on the dressing. LABS: Hemoglobin is 7.6. White count is 15.57. BUN of 23, creatinine 1.2. DIAGNOSTIC IMPRESSION AND PLAN: 1. Patient with C difficile colitis. To continue with oral vancomycin question added because of persistent diarrhea. 2. Keeley glabrata urinary tract infection, covered with Rocephin to continue and monitor clinical course closely. MMODL / IJN: [id number] /
[2020-10-15] MEDS: SODIUM CHLORIDE 0.9% 1,000 ML IV SCH ×4 (04:51→20:22)
[2020-10-15 05:11] LABS: Glucose,Whole Blood 176 mg/dL (75-99)
[2020-10-15 07:23] LABS: Glucose,Whole Blood 181 mg/dL (75-99)
[2020-10-15] MEDS: HEPARIN SODIUM,PORCINE/PF 5,000 UNIT/0.5 ML SYRINGE SQ SCH ×2 (08:02→20:22)
[2020-10-15] MEDS: PANTOPRAZOLE 40 MG TABLET PO SCH ×2 (08:03→18:16)
[2020-10-15] MEDS: ATORVASTATIN 10 MG TAB PO SCH (08:03)
[2020-10-15] MEDS: CHOLECALCIFEROL 25 MCG (1000 IU) TABLET PO SCH (08:03)
[2020-10-15] MEDS: SUCRALFATE 1 GM TAB PO SCH ×3 (08:03→18:16)
[2020-10-15] MEDS: INSULIN ASPART (NovoLOG) 100 UNIT/ML VIAL SQ SCH ×7 (08:03→20:57)
[2020-10-15] MEDS: amLODIPine 5 MG TAB PO SCH (08:03)
[2020-10-15] MEDS: CHOLESTYRAMINE (WITH SUGAR) 4 GM PACKET PO SCH ×2 (08:05→20:22)
[2020-10-15] MEDS: DONEPEZIL 5 MG TAB PO SCH (08:06)
[2020-10-15] MEDS: VORICONAZOLE 200 MG TAB PO SCH ×2 (08:06→20:21)
[2020-10-15] MEDS: OLANZapine 5 MG TAB PO SCH (08:06)
[2020-10-15] MEDS: VANCOMYCIN ORAL SOLUTION 250 MG/5 ML BOTTLE PO SCH ×4 (08:06→23:21)
[2020-10-15] MEDS: COLLAGENASE 250 UNIT/GM OINTMENT 30 GM TUBE TOPICAL SCH (08:07)
[2020-10-15] MEDS: ACETAMINOPHEN TAB 325 MG TAB PO PRN ×3 (08:19→20:22)
[2020-10-15] MEDS ORDERED: METOPROLOL SUCCINATE (ER) 50 MG TAB.ER.24H PO SCH (09:00)
[2020-10-15 10:46] LABS: HCT 24.7 % (34.0-46.0); HGB 7.5 gm/dL (11.4-16.0); Hypochromasia Marked; MCH 28.8 pg (25.0-35.0); MCHC 30.1 g/dL (31.0-37.0); MCV 95.7 fL (80.0-100.0); Mean Platelet Volume 7.1; Platelet Count 455 k/uL (150-450); RBC 2.58 m/uL (3.80-5.40); WBC 15.1 k/uL (3.8-10.6)
[2020-10-15 11:56] LABS: Glucose,Whole Blood 160 mg/dL (75-99)
--- NOTE | 2020-10-15 13:45 | P.PN ---
Subjective Progress Note Date: 10/15/20 CHIEF COMPLAINT: Anemia HISTORY OF PRESENT ILLNESS: Patient is status post EGD. Patient noted to have a large duodenal ulcer with recent bleed, gastritis and diaphragmatic hiatal hernia. Patient currently on Protonix and Carafate. Patient denies any abdominal pain. She is tolerating carb consistent diet. She setting of a bedside chair. Patient is still having diarrhea. Afebrile. Tachycardic WBC is 15.1 hemoglobin 7.5 PHYSICAL EXAM: VITAL SIGNS: Reviewed GENERAL: Well-developed in no acute distress. HEENT: No sclera icterus. Extraocular movements grossly intact. Moist buccal mucosa. Head is atraumatic, normocephalic. Hears conversational speech. No nasal drainage. NECK: Supple without lymphadenopathy. CHEST: Non-labored respirations and equal bilateral excursions. CARDIOVASCULAR: Palpable 2+ radial pulses. ABDOMEN: Soft. Nondistended. Nontender. MUSCULOSKELETAL: No clubbing or cyanosis. NEUROLOGIC: No focal or lateralizing signs. Cranial nerves II through XII grossly intact. PSYCH: Appropriate affect. Alert and oriented to person, place and time. SKIN: Well perfused. Good skin turgor. ASSESSMENT: 1. Large duodenal ulcer with recent bleed 2. Gastritis 3. Diaphragmatic hiatal hernia PLAN: 1. Discontinue Plavix therapy for recent bleeding ulcer for 5 days 2. Continue Carafate 1 g twice a day to 3 times a day for 2 weeks 3. Continue Protonix 40 mg twice a day for 2 weeks, then daily for 1 month 4. Repeat upper endoscopy in 1 month Physician Organ Teacher note has been reviewed by physician. Signing provider agrees with the documented findings, assessment, and plan of care. Objective - Vital Signs Vital signs: Vital Signs Temp 98.9 F 10/15/20 08:00 Pulse 116 H 10/15/20 08:00 Resp 16 10/15/20 08:00 BP 156/71 10/15/20 08:00 Pulse Ox 96 10/15/20 08:00 Intake & Output 10/14/20 10/15/20 10/15/20 18:59 06:59 18:59 Intake Total 50 480 Output Total 277 6 650 Balance -227 474 -650 Intake: Oral 50 480 Output: Urine 275 2 650 Stool 2 4 Other: Voiding Method Indwelling Catheter Indwelling Catheter Indwelling Catheter # Voids 1 # Bowel Movements 1 3 - Labs CBC & Chem 7: 10/15/20 09:36 10/14/20 07:15 Labs: Abnormal Lab Results - Last 24 Hours (Table) 10/14/20 10/14/20 10/14/20 Range/Units 07:15 17:14 21:44 WBC (3.8-10.6) k/uL RBC (3.80-5.40) m/uL Hgb (11.4-16.0) gm/dL Hct (34.0-46.0) % MCHC (31.0-37.0) g/dL Plt Count (150-450) k/uL Chloride 110 H (96-109) mmol/L Carbon Dioxide 18.7 L (21.6-31.8) mmol/L Est GFR (CKD-EPI)AfAm 51.6 L (60.0-200.0) Est GFR (CKD-EPI)NonAf 44.5 L (60.0-200.0) Glucose 216 H (70-110) mg/dL POC Glucose (mg/dL) 242 H 189 H (75-99) mg/dL Calcium 8.3 L (8.7-10.3) mg/dL 10/15/20 10/15/20 10/15/20 Range/Units 05:10 07:22 09:36 WBC 15.1 H (3.8-10.6) k/uL RBC 2.58 L (3.80-5.40) m/uL Hgb 7.5 L (11.4-16.0) gm/dL Hct 24.7 L (34.0-46.0) % MCHC 30.1 L (31.0-37.0) g/dL Plt Count 455 H (150-450) k/uL Chloride (96-109) mmol/L Carbon Dioxide (21.6-31.8) mmol/L Est GFR (CKD-EPI)AfAm (60.0-200.0) Est GFR (CKD-EPI)NonAf (60.0-200.0) Glucose (70-110) mg/dL POC Glucose (mg/dL) 176 H 181 H (75-99) mg/dL Calcium (8.7-10.3) mg/dL 10/15/20 Range/Units 11:55 WBC (3.8-10.6) k/uL RBC (3.80-5.40) m/uL Hgb (11.4-16.0) gm/dL Hct (34.0-46.0) % MCHC (31.0-37.0) g/dL Plt Count (150-450) k/uL Chloride (96-109) mmol/L Carbon Dioxide (21.6-31.8) mmol/L Est GFR (CKD-EPI)AfAm (60.0-200.0) Est GFR (CKD-EPI)NonAf (60.0-200.0) Glucose (70-110) mg/dL POC Glucose (mg/dL) 160 H (75-99) mg/dL Calcium (8.7-10.3) mg/dL Microbiology - Last 24 Hours (Table) 10/12/20 15:58 Urine Culture - Final Urine,Voided Keeley glabrata
--- NOTE | 2020-10-15 14:30 | PN ---
PROGRESS NOTE DATE OF SERVICE: 10/15/2020 REASON FOR FOLLOW UP: 1. C difficile colitis. 2. UTI. INTERVAL HISTORY: Patient did have last low grade fever 100 degrees Fahrenheit. The patient afebrile since this morning. The patient is breathing comfortably. Did have 2 loose stools this morning per the nursing staff. No vomiting, diarrhea or pain to the left heel. PHYSICAL EXAMINATION: Blood pressure 156/71 with a pulse of , temperature 98.9 she is 96% on room air. General description is an elderly female lying in bed in no distress. Respiratory system: Unlabored breathing, decreased breath sounds at the base. No wheeze. Heart: S1, S2. Regular rate and rhythm. Abdomen: Soft. No tenderness. LABS: White count is 15.1. DIAGNOSTIC IMPRESSION AND PLAN: 1. Patient admitted to the hospital with C difficile colitis in this patient who did have a some improvement in her diarrhea. However, still have running a fever and white count is elevated. We will check a CT of abdomen and pelvis to make sure no evidence of any other complicated . 2. Patient with Keeley glabrata urinary tract infection covered with Vfend. MMODL / IJN: [id number] /
--- NOTE | 2020-10-15 14:54 | P.PN ---
Subjective Progress Note Date: 10/15/20 Patient is a pleasant 75-year-old female came in with complains of diarrhea high-grade fevers generalized weakness and tiredness. Patient recently completed antibiotic therapy with ciprofloxacin about a week ago she was treated for urinary tract infection patient presented with urinary retention during her last hospitalization. Patient does have a language barrier which is Icelandic. Able to get good history because daughter was present at the bedside. Patient was also significantly hypoglycemic patient is on Actos as well as a sulfonylurea for diabetes management. Her last hemoglobin A1c was from September 21 which was 6.3 patient appears to have chronic kidney disease with baseline creatinine of around 1.4 present creatinine is 1.68. Patient does have metabolic acidosis, which appears to be mostly nonambulatory gap. Chest x-ray did not show any significant abnormality, a year is mildly abnormal but no symptoms of a urinary tract infection, no evidence of UTI 10/10/2020 patient is examined at the bedside, RN was present with spring intern machine. I was able was able to communicate with patient . Patient states that she is not having any abdominal pain, she denies any chest pain cough shortness of breath. Patient states that she is just tired. Patient was an Ateam at 2 AM due to a loss of IV access. Patient at that time was infusing D10 at 1 25 mL per hour. Patient's blood sugar was found to be 22. Patient had Accu-Cheks completed every hour and IV access was established. Patient's blood sugars that have been in the high 200s. Patient had a midline placed this afternoon after losing a second IV. Patient's blood sugar can be checked [id number]. Patient will be transitioned off of the D10 drip to 0.9ns at 75 mL per hour. Patient was found to have a positive culture for C. diff this admission and has been started on oral vancomycin. 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 Patient does have a history of chronic kidney disease stage III with a baseline creatinine of 1.4. Patient has poor oral intake, will be started on oral supplementation, constipation with nutritional services. Oral hypoglycemic agents will be on hold. Patient may resume sliding scale for hyperglycemia. Monitor closely for symptoms of hypoglycemia. Vargas meza's hemoglobin has dropped to 7.8 from 9.2. Will recheck hemoglobin at 11 PM as well as in the morning. Continue to monitor for signs of bleeding. Reports patient still having diarrhea. Patient's white blood cell count is stable at 11.5. Continue oral antibiotics. Vital signs are currently stable. 10/11/2020 Patient is examined at the bedside, EKG being performed. Patient denies any abdominal pain, denies cramping, denies nausea vomiting. Patient reports diarrhea. Per RN there are no signs of active bleed. Patient's heart rate was elevated this morning at 150, EKG obtained revealed normal rhythm, sinus tachycardia, lactic acid obtained, 0.8, fluids were increased to 100cc/hr. Joey ramírez's heart rate had improved down to 110 status post metoprolol. Patient continues on by mouth Vanco for a C. diff infection. Patient's hemoglobin today is 7.7, general surgery consultation to rule out an acute GI bleed. Patient reports no issues with urination. Patient's Coumadin and creatinine continue to be elevated. Continue to monitor. Patient's blood sugar current level 399, continue with NovoLog signs were insulin and consistent carb diet. Continue to monitor blood sugars. Encourage ambulation as tolerated. Urine culture finalized for Renato glabrata. Nonhealing wound to the patient's left ankle finalized for gram-negative bacilli final cultures and sensitivity pending. Repeat chest x-ray today, was negative for any acute process. Patient continues to have temperature, T-max 100.6. Continue with local wound care with [facility]. 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 10/12/2020 Patient is examined today at bedside, patient is awake alert and oriented 3. Patient continues to have loose bowel movements. Per RN patient had to be straight cathed times one for urinary retention, repeat UA and culture has been ordered. Patient's ankle culture has been finalized, growing pseudomonas, antibiotic recommendations per infectious disease. Patient continues to have temperatures, T-max 100.7 in the last 24 hours, heart rate 118, blood pressure 126/57, patient is 96% on room air. Patient can of oral Tylenol as needed. Continue with IV fluids 0.9 at 125 continue to monitor for signs of sepsis. Repeat lactic acid drawn yesterday was a level of 0.08. Patient will continue on PO Vanco for C. diff colitis, recommendations per ID. Patient denies any chest pain, cough, shortness of breath. Patient states that her abdomen feels so-so. Patient is primarily Icelandic-speaking. Patient's lab work today revealed a hemoglobin that is now stable at 8.8. White blood cell count is stable at 10.78. Patient's BUN and creatinine are essentially unchanged. Patient is hyperglycemic, continue with NovoLog sliding scale. Continue to encourage oral intake. Patient can continue with local wound care per wound care services. Patient was following the wound care center. 10/13/2020 Patient has an indwelling catheter placed from nursing services, for urinary retention. A UA and culture was sent, infectious disease have added oral voriconazole for a positive UTI. Patient continues on by mouth Vanco for C. diff colitis. Patient was evaluated by surgical services, who performed an EGD this morning, findings consistent with large 1 cm duodenal ulcer, second portion recent bleed, multiple punctate duodenal ulcers with duodenitis, gastritis, diaphragmatic hiatal hernia. There have been no signs of blood in the stool, dark stool per nursing services. Patient is continuing with loose brown stools. In addition patient's left ankle wound has grown Pseudomonas, no further antibiotic recommendations from ID. Patient continues to have temps, T-max 100.4 in the last 24 hours. Patient's blood pressure this morning 170/70, heart rate 114. Continue with IV fluids 0.9 at 125, recheck blood pressure. Blood sugars continue to be elevated intermittently, continue with sliding scale coverage as needed, with scheduled insulin. Hemoglobin stable today at 8.8. Patient's Plavix has been discontinued. Patient wasn't started on Carafate and Protonix for GI prophylaxis. Today patient denies chest pain, reports her stomach feels so-so. Patient is primarily Icelandic-speaking, seaweed harvester available when needed. Will consult PT/OT, increase activity level as tolerated. 10/14/2020 patient is evaluated sitting up in the chair today. patient states that her belly feels so/so. She is still having diarrhea, loose per RN. Patient continues on oral vanco and was started on questran via ID services. Patient continues with IDC for urinary retention, has been started on oral vfen for positive renato urine culture. Patient was evaluated by PT today, who recommends 24/ post discharge with either homecare services or [facility]. Patient continues to be febrile, t-max 99.7 in the last 24 hours, which is slowly improving. Patients HR is 120 sinus tachycardia, she was started on toprol XL 100 mg po daily, without improvement. She was increased to 150 mg PO Daily. Pt continues on IV fluids. She has a fair appetite. Continue to encourage ambulation. 10/15/2020 Patient is sitting up in the bed today, is working with PT OT and has gone up in the chair yesterday. Patient states her belly still feels so-so, she still having diarrhea, was started on Questran yesterday in addition to by mouth Vanco. Patient continues with [facility]C for urinary retention, has been started on oral Vfend for a positive renato urine culture. Patient continues to be febrile, T-max 100 in the last 24 hours. This is a improvement. Patient was started on Toprol for sinus tachycardia, improving, her weight today is 15. Patient denies any chest pain, cough. Blood pressure today is 156/71, 96% on room air. Patient's white count continues to trend down slowly, 15.1 today. Continue to monitor blood sugars closely. The plan on discharge once medically stable is to return home with daughter on discharge with [facility]. ROS: Constitutional: Denied any fatigue denied any fever. Cardio vascular: denied any chest pain, palpitations Gastrointestinal denied any nausea vomiting, reports diarrhea Pulmonary: Denied any shortness of breath cough Neurologic denied any new focal deficits All inpatient medications were reviewed and appropriate changes in these medications as dictated in the interval history and assessment and plan. PHYSICAL EXAMINATION: GENERAL: The patient is alert and oriented x3, not in any acute distress. Well developed, well nourished. HEENT: Pupils are round and equally reacting to light. EOMI. No scleral icterus. No conjunctival pallor. Normocephalic, atraumatic. No pharyngeal erythema. No thyromegaly. CARDIOVASCULAR: S1 and S2 present. No murmurs, rubs, or gallops. PULMONARY: Chest is clear to auscultation, no wheezing or crackles. ABDOMEN: Soft, nontender, nondistended, hyperactive bowel sounds. MUSCULOSKELETAL: No joint swelling or deformity. EXTREMITIES: No cyanosis, clubbing, or pedal edema. NEUROLOGICAL: Gross neurological examination did not reveal any focal deficits. SKIN: Nonhealing wound on buttock and left ankle/heel, Assessment and plan -Sepsis: Secondary to C. diff colitis, patient was started on oral vancomycin. Patient is tachycardic, this may be related to sepsis can be reflux as patient takes metoprolol and clonidine. Patient will restart back on metoprolol considering the sepsis patient will not be started on clonidine at this time -C diff Colitis - patient continues enterovesical, question. CT abdomen pelvis ordered due to elevated temps. -Severe hypoglycemia, has resolved, patient has been transitioned off of the D5 drip, patient is now on normal saline. Continue with the long sliding scale as needed continue to hold oral hypoglycemic agents. -Carotid artery disease continue on current cardiac medications -Hypertension patient was resumed on beta milli and amlodipine holding of clonidine -diabetes mellitus type 2, With hyperglycemia. Patient oral hypoglycemic agents are on hold related to episodes of hypoglycemia. Patient will be started on oral protein supplementation. Encourage oral intake. Continue to monitor blood sugars closely. Caution with adding oral hypoglycemic agents due to decreased appetite. Continue with sliding scale insulin, scheduled insulin. -Diabetic nephropathy chronic kidney disease stage III baseline creatinine of around 1.4, creatinine today 1.2. Anemia secondary to an acute bleeding duodenal ulcer, gastritis - EGD performed today, holding Plavix for 5 days, can resume on 10/18/20. Hemoglobin today 7.5 Leukocytosis, related to C. diff colitis infection with sepsis. Lactic acid on admission 1.3, down to 0.8. Continue with oral antibiotics. Wound cultures positive for Pseudomonas. WBC today 15.1 - improving. Diabetes mellitus type 2, with hyperglycemia, with nonhealing ulcerspatient is maintained on Amaryl, actos at home currently on hold related to episodes of hypoglycemia. Coverage via sliding for NovoLog, will add small dose of scheduled insulin with parameters. Tight glycemic control for wound healing. Nonhealing pressure ulcer, patient is following with wound care, continue with current wound care recommendations. Urinary retention - indwelling catheter in place, repeat UA positive, started on oral antifungals. -Sinus tachycardia, increased dose of Toprol, continue to monitor, continue with IV fluids 0.9 at 125. Echo ordered. -DVT prophylaxis, ambulation as tolerated, subcu heparin, GI prophylaxis Protonix, Carafate Patient was monitored closely for C. diff colitis infection. Patient on oral Vanco, Questran. Toprol has been increased. Patient to continue with 0.9 normal saline at 125 mL per hour. Patient can be resumed on NovoLog sliding scale. Oral hypoglycemic agents will still be on hold. Wound care is following for local wound management of a non healing pressure ulcer on her buttock, as well as a heel ulcer. Patient is followed in the wound care center and is scheduled for an appointment next . check CBC and BMP in the morning. Patient has an indwelling catheter placed for urinary retention, added on oral antifungals from ID. Patient had an EGD performed this admission, which reveal ed a duodenal ulcer that was recently bleeding, gastritis, diaphragmatic hernia. Patient is recommended to have an EGD outpatient in 1 month to follow-up. Patient is placed on Carafate and Protonix for prophylaxis via surgical services, Plavix and hold for 5 days. Continue to monitor hemoglobin closely. Continue to encourage ambulation as tolerated. PT OT consultation. Patient will return home with daughter on discharge with home care services. Echocardiogram currently pending. Replace electrolytes per protocol. Objective - Vital Signs Vital signs: Vital Signs Temp 98.9 F 10/15/20 08:00 Pulse 116 H 10/15/20 08:00 Resp 16 10/15/20 08:00 BP 156/71 10/15/20 08:00 Pulse Ox 96 10/15/20 08:00 Intake & Output 10/14/20 10/15/20 10/15/20 18:59 06:59 18:59 Intake Total 50 480 Output Total 277 6 650 Balance -227 474 -650 Intake: Oral 50 480 Output: Urine 275 2 650 Stool 2 4 Other: Voiding Method Indwelling Catheter Indwelling Catheter Indwelling Catheter # Voids 1 # Bowel Movements 1 3 - Labs CBC & Chem 7: 10/15/20 09:36 10/14/20 07:15 Labs: Abnormal Lab Results - Last 24 Hours (Table) 10/14/20 10/14/20 10/14/20 Range/Units 07:15 17:14 21:44 WBC (3.8-10.6) k/uL RBC (3.80-5.40) m/uL Hgb (11.4-16.0) gm/dL Hct (34.0-46.0) % MCHC (31.0-37.0) g/dL Plt Count (150-450) k/uL Chloride 110 H (96-109) mmol/L Carbon Dioxide 18.7 L (21.6-31.8) mmol/L Est GFR (CKD-EPI)AfAm 51.6 L (60.0-200.0) Est GFR (CKD-EPI)NonAf 44.5 L (60.0-200.0) Glucose 216 H (70-110) mg/dL POC Glucose (mg/dL) 242 H 189 H (75-99) mg/dL Calcium 8.3 L (8.7-10.3) mg/dL 10/15/20 10/15/20 10/15/20 Range/Units 05:10 07:22 09:36 WBC 15.1 H (3.8-10.6) k/uL RBC 2.58 L (3.80-5.40) m/uL Hgb 7.5 L (11.4-16.0) gm/dL Hct 24.7 L (34.0-46.0) % MCHC 30.1 L (31.0-37.0) g/dL Plt Count 455 H (150-450) k/uL Chloride (96-109) mmol/L Carbon Dioxide (21.6-31.8) mmol/L Est GFR (CKD-EPI)AfAm (60.0-200.0) Est GFR (CKD-EPI)NonAf (60.0-200.0) Glucose (70-110) mg/dL POC Glucose (mg/dL) 176 H 181 H (75-99) mg/dL Calcium (8.7-10.3) mg/dL 10/15/20 Range/Units 11:55 WBC (3.8-10.6) k/uL RBC (3.80-5.40) m/uL Hgb (11.4-16.0) gm/dL Hct (34.0-46.0) % MCHC (31.0-37.0) g/dL Plt Count (150-450) k/uL Chloride (96-109) mmol/L Carbon Dioxide (21.6-31.8) mmol/L Est GFR (CKD-EPI)AfAm (60.0-200.0) Est GFR (CKD-EPI)NonAf (60.0-200.0) Glucose (70-110) mg/dL POC Glucose (mg/dL) 160 H (75-99) mg/dL Calcium (8.7-10.3) mg/dL Microbiology - Last 24 Hours (Table) 10/12/20 15:58 Urine Culture - Final Urine,Voided Renato glabrata Assessment and Plan Time with Patient: Greater than 30
[2020-10-15] MEDS: IOPAMIDOL CONTRAST (ORAL USE) VIAL PO PRN ×2 (15:53→16:59)
[2020-10-15 16:43] LABS: Glucose,Whole Blood 223 mg/dL (75-99)
[2020-10-15] MEDS: LATANOPROST 0.005% OPHTH DROPS 2.5 ML BTL BOTH EYES SCH (20:23)
[2020-10-15 20:25] LABS: Glucose,Whole Blood 163 mg/dL (75-99)
[2020-10-15 21:48] LABS: African American GFR (CKD) 46.8 (60.0-200.0); Albumin 2.3 g/dL (3.80-4.90); Albumin/Globulin Ratio 1.1 (1.60-3.17); Anion Gap 6.4 mmol/L (4.00-12.00); BUN/Creat Ratio 16.92 Ratio (12.00-20.00); Calcium 7.9 mg/dL (8.7-10.3); Carbon Dioxide 16.6 mmol/L (21.6-31.8); Globulin 2.1 g/dL (1.6-3.3); Non-African American GFR(CKD) 40.4 (60.0-200.0); Potassium 3.9 mmol/L (3.5-5.5); Total Bilirubin 0.1 mg/dL (0.2-1.2); Total Protein 4.4 g/dL (6.2-8.2)
--- NOTE | 2020-10-16 01:53 | CT ---
EXAMINATION TYPE: CT abdomen pelvis wo con DATE OF EXAM: 10/15/2020 COMPARISON: None HISTORY: abdominal pain, fever CT DLP: 799.8 mGycm Automated exposure control for dose reduction was used. Images obtained from the diaphragm to the floor the pelvis with oral contrast only. There is a small pericardial effusion. There is bilateral pleural effusions and larger on the left si de. There is basilar pulmonary atelectasis bilaterally. There is probably some infiltrate in the left lower lobe. There is abdominal ascites. There is subcutaneous edema around the abdomen. Liver is intact. Spleen i s intact. The stomach is intact. There is no pancreatic mass. The bile ducts are not dilated. There i s some atherosclerotic vascular calcification. Gallbladder is absent. There is no adrenal mass. Kidneys have normal size. There is no hydronephrosis. There is extensive re nal vascular calcification. Ureters are not dilated. There is no retroperitoneal adenopathy. Lumbar v ertebra have normal alignment. There is no compression fracture. There is left hip prosthesis. The pr oximal right femur and hip joint appear intact. There is no lumbar compression fracture. There is lucy e free fluid in the pelvis. Uterus is anteverted with calcification. I see no pelvic mass. There is no evidence of a bowel obstruction. There is oral contrast extending to the descending colon . Small bowel pattern is fairly normal. Wall thickening is possible in the cecum. There is no free ai r. IMPRESSION: There is possible wall thickening of the ascending colon and cecum that could be some nonspecific col itis including ischemic colitis. There is also some involvement of the sigmoid colon. No bowel obstru ction. Abdominal ascites. Extensive vascular calcification. Pleural effusions and mild cardiomegaly. This could be some chronic congestive heart failure.
[2020-10-16 02:24] LABS: Glucose,Whole Blood 217 mg/dL (75-99)
[2020-10-16] MEDS: SODIUM CHLORIDE 0.9% 1,000 ML IV SCH ×2 (03:35→11:50)
[2020-10-16] MEDS: ACETAMINOPHEN TAB 325 MG TAB PO PRN ×3 (05:00→19:24)
[2020-10-16 06:55] LABS: Glucose,Whole Blood 223 mg/dL (75-99)
[2020-10-16] MEDS: CHOLESTYRAMINE (WITH SUGAR) 4 GM PACKET PO SCH ×2 (07:44→21:11)
[2020-10-16] MEDS: ATORVASTATIN 10 MG TAB PO SCH (07:45)
[2020-10-16] MEDS: INSULIN ASPART (NovoLOG) 100 UNIT/ML VIAL SQ SCH ×7 (07:45→21:10)
[2020-10-16] MEDS: PANTOPRAZOLE 40 MG TABLET PO SCH ×2 (07:45→17:29)
[2020-10-16] MEDS: DONEPEZIL 5 MG TAB PO SCH (07:45)
[2020-10-16] MEDS: SUCRALFATE 1 GM TAB PO SCH ×3 (07:45→17:29)
[2020-10-16] MEDS: VORICONAZOLE 200 MG TAB PO SCH (07:45)
[2020-10-16] MEDS: HEPARIN SODIUM,PORCINE/PF 5,000 UNIT/0.5 ML SYRINGE SQ SCH ×2 (07:46→21:10)
[2020-10-16] MEDS: METOPROLOL SUCCINATE (ER) 100 MG TAB.ER.24H PO SCH (07:46)
[2020-10-16] MEDS: COLLAGENASE 250 UNIT/GM OINTMENT 30 GM TUBE TOPICAL SCH (07:46)
[2020-10-16] MEDS: amLODIPine 5 MG TAB PO SCH (07:46)
[2020-10-16] MEDS: CHOLECALCIFEROL 25 MCG (1000 IU) TABLET PO SCH (07:46)
[2020-10-16] MEDS: OLANZapine 5 MG TAB PO SCH (08:04)
[2020-10-16] MEDS: VANCOMYCIN ORAL SOLUTION 250 MG/5 ML BOTTLE PO SCH ×3 (08:04→17:29)
[2020-10-16 10:57] LABS: HCT 25.3 % (34.0-46.0); HGB 7.6 gm/dL (11.4-16.0); Hypochromasia Marked; MCH 28.9 pg (25.0-35.0); MCV 96.4 fL (80.0-100.0); Mean Platelet Volume 7.5; Platelet Count 401 k/uL (150-450); RBC 2.63 m/uL (3.80-5.40); RDW 14.8 % (11.5-15.5)
[2020-10-16 11:20] LABS: ALT 9 U/L (4-34); AST 17 U/L (14-36); African American GFR (CKD) 45 (>60 ml/min/1.73 sqM); Albumin 1.9 g/dL (3.5-5.0); Albumin/Globulin Ratio 0.7; Alkaline Phosphatase 71 U/L (38-126); Anion Gap 5 mmol/L; Blood Urea Nitrogen 21 mg/dL (7-17); Calcium 8.6 mg/dL (8.4-10.2); Carbon Dioxide 16 mmol/L (22-30); Chloride 115 mmol/L (98-107); Globulin 2.6 g/dL; Glucose 131 mg/dL (74-99); Magnesium 1.9 mg/dL (1.6-2.3); Non-African American GFR(CKD) 39 (>60 ml/min/1.73 sqM); Sodium 136 mmol/L (137-145); Total Bilirubin 0.1 mg/dL (0.2-1.3); Total Protein 4.5 g/dL (6.3-8.2)
[2020-10-16 11:47] LABS: Glucose,Whole Blood 103 mg/dL (75-99)
--- NOTE | 2020-10-16 12:45 | XR ---
EXAMINATION TYPE: XR chest 1V portable DATE OF EXAM: 10/16/2020 Comparison: 10/11/2020 Clinical History: 75-year-old female follow-up abdomen pelvis CT - chronic CHF Findings: Heart upper limits of normal in size. Interstitial prominence have increased. New small left effusion with left basilar opacity. Impression: Interstitial prominence and new small left effusion with adjacent atelectasis and/or consolidation. C orrelate for mild CHF.
[2020-10-16] MEDS: CEFEPIME 2 GM in SODIUM CHLORIDE 0.9% 100 ML IVPB SCH ×2 (13:42→23:51)
[2020-10-16] MEDS ORDERED: FUROSEMIDE 10 MG/ML 4 ML VIAL IV STA (14:27)
--- NOTE | 2020-10-16 14:27 | P.PN ---
Subjective Progress Note Date: 10/16/20 Patient is a pleasant 75-year-old female came in with complains of diarrhea high-grade fevers generalized weakness and tiredness. Patient recently completed antibiotic therapy with ciprofloxacin about a week ago she was treated for urinary tract infection patient presented with urinary retention during her last hospitalization. Patient does have a language barrier which is [place]. Able to get good history because daughter was present at the bedside. Patient was also significantly hypoglycemic patient is on Actos as well as a sulfonylurea for diabetes management. Her last hemoglobin A1c was from September 21 which was 6.3 patient appears to have chronic kidney disease with baseline creatinine of around 1.4 present creatinine is 1.68. Patient does have metabolic acidosis, which appears to be mostly nonambulatory gap. Chest x-ray did not show any significant abnormality, a year is mildly abnormal but no symptoms of a urinary tract infection, no evidence of UTI 10/10/2020 patient is examined at the bedside, RN was present with numerical control machine machinist machine. I was able was able to communicate with patient . Patient states that she is not having any abdominal pain, she denies any chest pain cough shortness of breath. Patient states that she is just tired. Patient was an Ateam at 2 AM due to a loss of IV access. Patient at that time was infusing D10 at 1 25 mL per hour. Patient's blood sugar was found to be 22. Patient had Accu-Cheks completed every hour and IV access was established. Patient's blood sugars that have been in the high 200s. Patient had a midline placed this afternoon after losing a second IV. Patient's blood sugar can be checked [id number]. Patient will be transitioned off of the D10 drip to 0.9ns at 75 mL per hour. Patient was found to have a positive culture for C. diff this admission and has been started on oral vancomycin. 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 Patient does have a history of chronic kidney disease stage III with a baseline creatinine of 1.4. Patient has poor oral intake, will be started on oral supplementation, constipation with nutritional services. Oral hypoglycemic agents will be on hold. Patient may resume sliding scale for hyperglycemia. Monitor closely for symptoms of hypoglycemia. Vargas meza's hemoglobin has dropped to 7.8 from 9.2. Will recheck hemoglobin at 11 PM as well as in the morning. Continue to monitor for signs of bleeding. Reports patient still having diarrhea. Patient's white blood cell count is stable at 11.5. Continue oral antibiotics. Vital signs are currently stable. 10/11/2020 Patient is examined at the bedside, EKG being performed. Patient denies any abdominal pain, denies cramping, denies nausea vomiting. Patient reports diarrhea. Per RN there are no signs of active bleed. Patient's heart rate was elevated this morning at 150, EKG obtained revealed normal rhythm, sinus tachycardia, lactic acid obtained, 0.8, fluids were increased to 100cc/hr. Joey ramírez's heart rate had improved down to 110 status post metoprolol. Patient continues on by mouth Vanco for a C. diff infection. Patient's hemoglobin today is 7.7, general surgery consultation to rule out an acute GI bleed. Patient reports no issues with urination. Patient's Coumadin and creatinine continue to be elevated. Continue to monitor. Patient's blood sugar current level 399, continue with NovoLog signs were insulin and consistent carb diet. Continue to monitor blood sugars. Encourage ambulation as tolerated. Urine culture finalized for Renato glabrata. Nonhealing wound to the patient's left ankle finalized for gram-negative bacilli final cultures and sensitivity pending. Repeat chest x-ray today, was negative for any acute process. Patient continues to have temperature, T-max 100.6. Continue with local wound care with [facility]. Patient is primarily [place]-speaking, interpreter translator available. 10/12/2020 Patient is examined today at bedside, patient is awake alert and oriented 3. Patient continues to have loose bowel movements. Per RN patient had to be straight cathed times one for urinary retention, repeat UA and culture has been ordered. Patient's ankle culture has been finalized, growing pseudomonas, antibiotic recommendations per infectious disease. Patient continues to have temperatures, T-max 100.7 in the last 24 hours, heart rate 118, blood pressure 126/57, patient is 96% on room air. Patient can of oral Tylenol as needed. Continue with IV fluids 0.9 at 125 continue to monitor for signs of sepsis. Repeat lactic acid drawn yesterday was a level of 0.08. Patient will continue on PO Vanco for C. diff colitis, recommendations per ID. Patient denies any chest pain, cough, shortness of breath. Patient states that her abdomen feels so-so. Patient is primarily [place]-speaking. Patient's lab work today revealed a hemoglobin that is now stable at 8.8. White blood cell count is stable at 10.78. Patient's BUN and creatinine are essentially unchanged. Patient is hyperglycemic, continue with NovoLog sliding scale. Continue to encourage oral intake. Patient can continue with local wound care per wound care services. Patient was following the wound care center. 10/13/2020 Patient has an indwelling catheter placed from nursing services, for urinary retention. A UA and culture was sent, infectious disease have added oral voriconazole for a positive UTI. Patient continues on by mouth Vanco for C. diff colitis. Patient was evaluated by surgical services, who performed an EGD this morning, findings consistent with large 1 cm duodenal ulcer, second portion recent bleed, multiple punctate duodenal ulcers with duodenitis, gastritis, diaphragmatic hiatal hernia. There have been no signs of blood in the stool, dark stool per nursing services. Patient is continuing with loose brown stools. In addition patient's left ankle wound has grown Pseudomonas, no further antibiotic recommendations from ID. Patient continues to have temps, T-max 100.4 in the last 24 hours. Patient's blood pressure this morning 170/70, heart rate 114. Continue with IV fluids 0.9 at 125, recheck blood pressure. Blood sugars continue to be elevated intermittently, continue with sliding scale coverage as needed, with scheduled insulin. Hemoglobin stable today at 8.8. Patient's Plavix has been discontinued. Patient wasn't started on Carafate and Protonix for GI prophylaxis. Today patient denies chest pain, reports her stomach feels so-so. Patient is primarily [place]-speaking, interpreter translator available when needed. Will consult PT/OT, increase activity level as tolerated. 10/14/2020 patient is evaluated sitting up in the chair today. patient states that her belly feels so/so. She is still having diarrhea, loose per RN. Patient continues on oral vanco and was started on questran via ID services. Patient continues with IDC for urinary retention, has been started on oral vfen for positive renato urine culture. Patient was evaluated by PT today, who recommends 24/ post discharge with either homecare services or [facility]. Patient continues to be febrile, t-max 99.7 in the last 24 hours, which is slowly improving. Patients HR is 120 sinus tachycardia, she was started on toprol XL 100 mg po daily, without improvement. She was increased to 150 mg PO Daily. Pt continues on IV fluids. She has a fair appetite. Continue to encourage ambulation. 10/15/2020 Patient is sitting up in the bed today, is working with PT OT and has gone up in the chair yesterday. Patient states her belly still feels so-so, she still having diarrhea, was started on Questran yesterday in addition to by mouth Vanco. Patient continues with IDC for urinary retention, has been started on oral Vfend for a positive renato urine culture. Patient continues to be febrile, T-max 100 in the last 24 hours. This is a improvement. Patient was started on Toprol for sinus tachycardia, improving, her weight today is 15. Patient denies any chest pain, cough. Blood pressure today is 156/71, 96% on room air. Patient's white count continues to trend down slowly, 15.1 today. Continue to monitor blood sugars closely. The plan on discharge once medically stable is to return home with daughter on discharge with [facility]. 10/16/2020 Patient is evaluated she is resting in the bed. Patient states that her belly is still causing her some discomfort. She states that she does get upset stomach after eating. Per RN patient has 2 bowel movements throughout the night both were loose. Patient continues on Questran, by mouth Vanco. Patient has ID C for urinary retention. She is on oral Vfend for positive renato urine culture. Patient needs to remain febrile in the last 24 hours is 100.7, patient is still sinus tachycardia, heart rate 130s this morning. Blood pressure 103/60, 93% on room air. Repeat EKG demonstrated sinus tachycardia. Patient has an echocardiogram pending, increased metoprolol 200 mg by mouth daily yesterday. Patient had IV fluids ordered at 0.9 at 125. Patient will have a repeat chest x-ray today to follow up with the abdominal pelvis CT that demonstrated possible chronic congestive heart failure. We will repeat a chem panel, blood count, magnesium, lactic acid today. Infectious disease at the bedside and discussed findings. Patient's hemoglobin yesterday was 7.5, no signs of an acute bleed, will repeat. Patient denies any chest pain, chest discomfort. She does state that she is weak and has a poor appetite. ROS: Constitutional: Denied any fatigue denied any fever. Cardio vascular: denied any chest pain, palpitations Gastrointestinal denied any nausea vomiting, reports diarrhea Pulmonary: Denied any shortness of breath cough Neurologic denied any new focal deficits All inpatient medications were reviewed and appropriate changes in these medications as dictated in the interval history and assessment and plan. PHYSICAL EXAMINATION: GENERAL: The patient is alert and oriented x3, not in any acute distress. Well developed, well nourished. HEENT: Pupils are round and equally reacting to light. EOMI. No scleral icterus. No conjunctival pallor. Normocephalic, atraumatic. No pharyngeal erythema. No thyromegaly. CARDIOVASCULAR: S1 and S2 present. No murmurs, rubs, or gallops. PULMONARY: Chest is clear to auscultation, no wheezing or crackles. ABDOMEN: Soft, nontender, nondistended, hyperactive bowel sounds. MUSCULOSKELETAL: No joint swelling or deformity. EXTREMITIES: No cyanosis, clubbing, or pedal edema. NEUROLOGICAL: Gross neurological examination did not reveal any focal deficits. SKIN: Nonhealing wound on buttock and left ankle/heel, Assessment and plan -Sepsis: Secondary to C. diff colitis, patient was started on oral vancomycin. Patient is tachycardic, this may be related to sepsis can be reflux as patient takes metoprolol and clonidine. Patient will restart back on metoprolol considering the sepsis patient will not be started on clonidine at this time -C diff Colitis - patient continues on questran, vanco. CT abdomen pelvis - thickening of the ascending colon, cecum related to nonspecific colitis involving the sigmoid colon no bowel obstruction. Abdominal ascites, pleural effusions, recent congestive heart failure chronic in nature, repeat chest x-ray ordered. -Severe hypoglycemia, has resolved, patient has been transitioned off of the D5 drip. Continue with the long sliding scale as needed continue to hold oral hy poglycemic agents. -Carotid artery disease continue on current cardiac medications -Hypertension patient was resumed on beta milli and amlodipine holding of clonidine -diabetes mellitus type 2, With hyperglycemia. Patient oral hypoglycemic agents are on hold related to episodes of hypoglycemia. Patient will be started on oral protein supplementation. Encourage oral intake. Continue to monitor blood sugars closely. Caution with adding oral hypoglycemic agents due to decreased appetite. Continue with sliding scale insulin, scheduled insulin. -Diabetic nephropathy chronic kidney disease stage III baseline creatinine of around 1.4, creatinine today 1.2. Anemia secondary to an acute bleeding duodenal ulcer, gastritis - EGD performed today, holding Plavix for 5 days, can resume on 10/18/20. Hemoglobin today 7.5, repeat today, surgical following. No signs of bleeding. Leukocytosis, related to C. diff colitis infection with sepsis, left ankle pseudomonas - by mouth Flagyl and IV cefepime added today VID. Continue with by mouth Vanco. Wound cultures positive for Pseudomonas. Diabetes mellitus type 2, with hyperglycemia, with nonhealing ulcerspatient is maintained on Amaryl, actos at home currently on hold related to episodes of hypoglycemia. Coverage via sliding for NovoLog, will add small dose of scheduled insulin with parameters. Tight glycemic control for wound healing. Nonhealing pressure ulcer, patient is following with wound care, continue with current wound care recommendations. Urinary retention - indwelling catheter in place -Sinus tachycardia, increased dose of Toprol, continue to monitor, continue with IV fluids 0.9 at 125. Echo ordered. Echo is still pending Acute mild CHF, EF unknown, echo pending. BNP 12,100. Will give one-time dose of IV Lasix. And discontinue fluids for time being. -DVT prophylaxis, ambulation as tolerated, subcu heparin, GI prophylaxis Protonix, Carafate Patient continues on by mouth Vanco, questran for C. diff colitis. By mouth Flagyl added today. IV cefepime added today, positive Pseudomonas wound culture. Patient continues to have an elevated white blood cell count, sinus tachycardia, monitor closely. Patient resumed on NovoLog sliding scale. Oral hypoglycemic agents will still be on hold. Wound care is following for local wound management of a non healing pressure ulcer on her buttock, as well as a heel ulcer. Patient had an EGD performed this admission, which revealed a duodenal ulcer that was recently bleeding, gastritis, diaphragmatic hernia. Patient is recommended to have an EGD outpatient in 1 month to follow-up. Patient is placed on Carafate and Protonix for prophylaxis via surgical services, Plavix and hold for 5 days. Continue to monitor hemoglobin closely. Continue to encourage ambulation as tolerated. PT OT consultation. Patient will return home with daughter on discharge with home care services. Echocardiogram currently pending. Replace electrolytes per protocol. IV fluids have been discontinued, one-time dose of IV Lasix. Echocardiogram pending. Objective - Vital Signs Vital signs: Vital Signs Temp 100.2 F H 10/16/20 07:31 Pulse 130 H 10/16/20 07:31 Resp 18 10/16/20 07:31 BP 103/60 10/16/20 07:31 Pulse Ox 93 L 10/16/20 07:31 Intake & Output 10/15/20 10/16/20 10/16/20 18:59 06:59 18:59 Intake Total 600 940 Output Total 1050 300 Balance -450 640 Intake: Intake, IV Titration 600 600 Amount Sodium Chloride 0.9% 1, 600 600 000 ml @ 125 mls/hr IV . Q8H [facility] Rx#:[id number] Oral 340 Output: Urine 1050 300 Other: Voiding Method Indwelling Catheter Indwelling Catheter Indwelling Catheter # Voids 2 # Bowel Movements 3 1 - Labs CBC & Chem 7: 10/16/20 10:41 10/16/20 10:41 Labs: Abnormal Lab Results - Last 24 Hours (Table) 10/15/20 10/15/20 10/15/20 Range/Units 09:36 09:36 11:55 WBC 15.1 H (3.8-10.6) k/uL RBC 2.58 L (3.80-5.40) m/uL Hgb 7.5 L (11.4-16.0) gm/dL Hct 24.7 L (34.0-46.0) % MCHC 30.1 L (31.0-37.0) g/dL Plt Count 455 H (150-450) k/uL Chloride 116 H (96-109) mmol/L Carbon Dioxide 16.6 L (21.6-31.8) mmol/L Est GFR (CKD-EPI)AfAm 46.8 L (60.0-200.0) Est GFR (CKD-EPI)NonAf 40.4 L (60.0-200.0) Glucose 164 H (70-110) mg/dL POC Glucose (mg/dL) 160 H (75-99) mg/dL Calcium 7.9 L (8.7-10.3) mg/dL Total Bilirubin 0.1 L (0.2-1.2) mg/dL AST 12 L (13-35) U/L Total Protein 4.4 L (6.2-8.2) g/dL Albumin 2.30 L (3.80-4.90) g/dL Albumin/Globulin Ratio 1.10 L (1.60-3.17) g/dL 10/15/20 10/15/20 10/16/20 Range/Units 16:42 20:23 02:22 WBC (3.8-10.6) k/uL RBC (3.80-5.40) m/uL Hgb (11.4-16.0) gm/dL Hct (34.0-46.0) % MCHC (31.0-37.0) g/dL Plt Count (150-450) k/uL Chloride (96-109) mmol/L Carbon Dioxide (21.6-31.8) mmol/L Est GFR (CKD-EPI)AfAm (60.0-200.0) Est GFR (CKD-EPI)NonAf (60.0-200.0) Glucose (70-110) mg/dL POC Glucose (mg/dL) 223 H 163 H 217 H (75-99) mg/dL Calcium (8.7-10.3) mg/dL Total Bilirubin (0.2-1.2) mg/dL AST (13-35) U/L Total Protein (6.2-8.2) g/dL Albumin (3.80-4.90) g/dL Albumin/Globulin Ratio (1.60-3.17) g/dL 10/16/20 Range/Units 06:52 WBC (3.8-10.6) k/uL RBC (3.80-5.40) m/uL Hgb (11.4-16.0) gm/dL Hct (34.0-46.0) % MCHC (31.0-37.0) g/dL Plt Count (150-450) k/uL Chloride (96-109) mmol/L Carbon Dioxide (21.6-31.8) mmol/L Est GFR (CKD-EPI)AfAm (60.0-200.0) Est GFR (CKD-EPI)NonAf (60.0-200.0) Glucose (70-110) mg/dL POC Glucose (mg/dL) 223 H (75-99) mg/dL Calcium (8.7-10.3) mg/dL Total Bilirubin (0.2-1.2) mg/dL AST (13-35) U/L Total Protein (6.2-8.2) g/dL Albumin (3.80-4.90) g/dL Albumin/Globulin Ratio (1.60-3.17) g/dL Assessment and Plan Time with Patient: Greater than 30
--- NOTE | 2020-10-16 14:33 | P.PN ---
Subjective Progress Note Date: 10/16/20 CHIEF COMPLAINT: Anemia HISTORY OF PRESENT ILLNESS: Patient is status post EGD. Patient noted to have a large duodenal ulcer with recent bleed, gastritis and diaphragmatic hiatal hernia. Patient currently on Protonix and Carafate. Patient denies any abdominal pain. She is tolerating her diet. Her diarrhea is improving. Patient did have low-grade fevers of 100.7. She has been tachycardic. Patient had computed tomography scan of abdomen and pelvis showing possible wall thickening of the ascending colon and cecum that could be some nonspecific colitis including ischemic colitis. There is also some involvement of the sigmoid colon. No bowel obstruction. Abdominal ascites. Extensive vascular calcification. Pleural effusions and mild cardiomegaly. This could be some chronic congestive heart failure. Medical service ordered 1 dose of IV Lasix. Patient iron level low at 25. White count elevated at 21 hemoglobin 7.6 PHYSICAL EXAM: VITAL SIGNS: Reviewed GENERAL: Well-developed in no acute distress. HEENT: No sclera icterus. Extraocular movements grossly intact. Moist buccal mucosa. Head is atraumatic, normocephalic. Hears conversational speech. No nasal drainage. NECK: Supple without lymphadenopathy. CHEST: Non-labored respirations and equal bilateral excursions. CARDIOVASCULAR: Palpable 2+ radial pulses. ABDOMEN: Soft. Nondistended. Nontender. MUSCULOSKELETAL: No clubbing or cyanosis. NEUROLOGIC: No focal or lateralizing signs. Cranial nerves II through XII grossly intact. PSYCH: Appropriate affect. Alert and oriented to person, place and time. SKIN: Well perfused. Good skin turgor. ASSESSMENT: 1. Large duodenal ulcer with recent bleed 2. Gastritis 3. Diaphragmatic hiatal hernia 4. Iron deficiency anemia PLAN: -Low iron level at 25. Will give patient IV Iron daily 2 doses -Follow up hemoglobin in a.m. -Discontinue Plavix therapy for recent bleeding ulcer for 5 days can resume on 10/18/2020 -Continue Carafate 1 g twice a day to 3 times a day for 2 weeks -Continue Protonix 40 mg twice a day for 2 weeks, then daily for 1 month -Repeat upper endoscopy in 1 month Physician Replenishment Specialist note has been reviewed by physician. Signing provider agrees with the documented findings, assessment, and plan of care. Objective - Vital Signs Vital signs: Vital Signs Temp 98.9 F 10/16/20 14:07 Pulse 117 H 08/12/21 14:07 Resp 18 10/16/20 14:07 BP 110/66 10/16/20 14:07 Pulse Ox 93 L 10/16/20 14:07 Intake & Output 10/15/20 10/16/20 10/16/20 18:59 06:59 18:59 Intake Total 600 940 340 Output Total 1050 300 Balance -450 640 340 Intake: Intake, IV Titration 600 600 Amount Sodium Chloride 0.9% 1, 600 600 000 ml @ 125 mls/hr IV . Q8H [facility] Rx#:[id number] Oral 340 340 Output: Urine 1050 300 Other: Voiding Method Indwelling Catheter Indwelling Catheter Indwelling Catheter # Voids 2 # Bowel Movements 3 1 - Labs CBC & Chem 7: 10/16/20 10:41 10/16/20 10:41 Labs: Abnormal Lab Results - Last 24 Hours (Table) 10/15/20 10/15/20 10/15/20 Range/Units 09:36 16:42 20:23 WBC (3.8-10.6) k/uL RBC (3.80-5.40) m/uL Hgb (11.4-16.0) gm/dL Hct (34.0-46.0) % MCHC (31.0-37.0) g/dL Sodium (137-145) mmol/L Chloride 116 H (96-109) mmol/L Carbon Dioxide 16.6 L (21.6-31.8) mmol/L BUN (7-17) mg/dL Creatinine (0.52-1.04) mg/dL Est GFR (CKD-EPI)AfAm 46.8 L (60.0-200.0) Est GFR (CKD-EPI)NonAf 40.4 L (60.0-200.0) Glucose 164 H (70-110) mg/dL POC Glucose (mg/dL) 223 H 163 H (75-99) mg/dL Calcium 7.9 L (8.7-10.3) mg/dL Total Bilirubin 0.1 L (0.2-1.2) mg/dL AST 12 L (13-35) U/L Total Protein 4.4 L (6.2-8.2) g/dL Albumin 2.30 L (3.80-4.90) g/dL Albumin/Globulin Ratio 1.10 L (1.60-3.17) g/dL 10/16/20 10/16/20 10/16/20 Range/Units 02:22 06:52 10:41 WBC 21.0 H (3.8-10.6) k/uL RBC 2.63 L (3.80-5.40) m/uL Hgb 7.6 L (11.4-16.0) gm/dL Hct 25.3 L (34.0-46.0) % MCHC 30.0 L (31.0-37.0) g/dL Sodium (137-145) mmol/L Chloride (96-109) mmol/L Carbon Dioxide (21.6-31.8) mmol/L BUN (7-17) mg/dL Creatinine (0.52-1.04) mg/dL Est GFR (CKD-EPI)AfAm (60.0-200.0) Est GFR (CKD-EPI)NonAf (60.0-200.0) Glucose (70-110) mg/dL POC Glucose (mg/dL) 217 H 223 H (75-99) mg/dL Calcium (8.7-10.3) mg/dL Total Bilirubin (0.2-1.2) mg/dL AST (13-35) U/L Total Protein (6.2-8.2) g/dL Albumin (3.80-4.90) g/dL Albumin/Globulin Ratio (1.60-3.17) g/dL 10/16/20 10/16/20 Range/Units 10:41 11:45 WBC (3.8-10.6) k/uL RBC (3.80-5.40) m/uL Hgb (11.4-16.0) gm/dL Hct (34.0-46.0) % MCHC (31.0-37.0) g/dL Sodium 136 L (137-145) mmol/L Chloride 115 H (96-109) mmol/L Carbon Dioxide 16 L (21.6-31.8) mmol/L BUN 21 H (7-17) mg/dL Creatinine 1.34 H (0.52-1.04) mg/dL Est GFR (CKD-EPI)AfAm (60.0-200.0) Est GFR (CKD-EPI)NonAf (60.0-200.0) Glucose 131 H (70-110) mg/dL POC Glucose (mg/dL) 103 H (75-99) mg/dL Calcium (8.7-10.3) mg/dL Total Bilirubin 0.1 L (0.2-1.2) mg/dL AST (13-35) U/L Total Protein 4.5 L (6.2-8.2) g/dL Albumin 1.9 L (3.80-4.90) g/dL Albumin/Globulin Ratio (1.60-3.17) g/dL
--- NOTE | 2020-10-16 15:26 | CDI ---
Documentation Clarification Form Date: 10/16/2020 02:33:20 PM From: Roseanne Hernandez RN CCDS Admit Date: 10/09/2020 12:08:00 PM Patient Name: Jigna Sofia Visit Number: [id number] Discharge Date: ATTENTION: The Clinical Documentation Specialists (CDI) and [facility] Coding Staff appreciate your assistance in clarifying documentation. Please respond to the clarification below the line at the bottom and electronically sign. The CDI & [facility] Coding staff will review the response and follow-up if needed. Please note: Queries are made part of the Legal Health Record. If you have any questions, please contact the author of this message via ITS. Misha Martinez MD Catheter associated urinary tract infection is documented 10/13, ID Progress note. Additional clarification regarding the etiology of the UTI is requested. History/Risk Factors:75-year-old female presents to the ED with diarrhea, high grade fevers, generalized weakness and tiredness. Patient recently completed antibiotic therapy with ciprofloxacin about a week ago and treated for UTI and urinary retention. Medical History: DM, HLD and HTN. Clinical Indicators: Voiding method: 10/10 Diaper/Brief; 10/11 Diaper/ Brief 3 voids. 10/12 14:58 Indwelling Catheter Insertion for retention. Per nursing assessment Urinalysis: 10/09 Urine appearance, cloudy; Leukocyte Esterase, Moderate; WBC 9; Bacteria, Rare; Yeast, Few. Urine culture: 10/09 Keeley glabrata Urinalysis: 10/12 Urine appearance, Turbid; Leukocyte Esterase, Large; Wbc, >182; Yeast, Many. Urine culture: 10/12 Keeley glabrata Treatment: 10/13 Vfend 300mg PO Q12HR ANNMARIE d/c 10/16. Please clarify the etiology of the UTI, if known: [ ] Keeley glabrata UTI not related to catheter. [ x] Keeley glabrata UTI related to catheter [ ] Other condition, please specify [ ] Unable to determine (Template Last Revised: May 2020) MTDD
[2020-10-16 16:34] LABS: Glucose,Whole Blood 206 mg/dL (75-99)
--- NOTE | 2020-10-16 16:47 | ECHOF ---
Referral Reason:Nonsustained VT MEASUREMENTS -------- HEIGHT: 160.0 cm WEIGHT: 66.7 kg BP: 156/71 RVIDd: 2.7 cm (< 3.3) IVSd: 1.3 cm (0.6 - 1.1) LVIDd: 4.6 cm (3.9 - 5.3) LVPWd: 1.2 cm (0.6 - 1.1) IVSs: 1.8 cm LVIDs: 2.9 cm LVPWs: 2.2 cm LAESV Index (A-L): 24.52 ml/m Ao Diam: 3.3 cm (2.0 - 3.7) AV Cusp: 1.9 cm (1.5 - 2.6) LA Diam: 4.0 cm (2.7 - 3.8) MV EXCURSION: 15.271 mm (> 18.000) MV EF SLOPE: 58 mm/s (70 - 150) EPSS: 1.2 cm MV E Martin: 0.83 m/s MV DecT: 104 ms MV A Martin: 1.00 m/s MV E/A Ratio: 0.83 RAP: 5.00 mmHg RVSP: 32.56 mmHg FINDINGS -------- Resting tachycardia (HR>100bpm). This was a technically difficult study with suboptimal views. The left ventricular size is normal. There is mild concentric left ventricular hypertrophy. Overa ll left ventricular systolic function is normal with, an EF between 55 - 60 %. The right ventricle is normal in size. Normal LA size by volume 22+/-6 ml/m2. The right atrial size is normal. Lumason used Interatrial and interventricular septum intact. There is no evidence of aortic regurgitation. There is no evidence of aortic stenosis. Mild mitral annular calcification present. Mild mitral regurgitation is present. Mild tricuspid regurgitation present. There is no evidence of pulmonary hypertension. The right v entricular systolic pressure, as measured by Doppler, is 32.56mmHg. Trace/mild (physiologic) pulmonic regurgitation. The aortic root size is normal. IVC Not well visulized. There is a small pericardial effusion located near the left ventricle. CONCLUSIONS -------- 1. The left ventricular size is normal. 2. There is mild concentric left ventricular hypertrophy. 3. Overall left ventricular systolic function is normal with, an EF between 55 - 60 %. 4. Mild mitral annular calcification present. 5. Mild mitral regurgitation is present. 6. Mild tricuspid regurgitation present. 7. Trace/mild (physiologic) pulmonic regurgitation. 8. There is a small pericardial effusion located near the left ventricle. FACILITIES ENGINEERING MANAGER: Kaya Alcaraz RDCS
[2020-10-16] MEDS: SODIUM FERRIC GLUCONAT-SUCROSE 125 MG in SODIUM CHLORIDE 0.9% 100 ML IVPB SCH (17:28)
[2020-10-16] MEDS: metroNIDAZOLE 500 MG TAB PO SCH ×2 (17:29→21:11)
[2020-10-16 20:46] LABS: Glucose,Whole Blood 169 mg/dL (75-99)
[2020-10-16] MEDS: LATANOPROST 0.005% OPHTH DROPS 2.5 ML BTL BOTH EYES SCH (21:10)
--- NOTE | 2020-10-16 21:33 | PN ---
PROGRESS NOTE REASON FOR FOLLOWUP: Colitis, UTI and left heel pressure ulcer. INTERVAL HISTORY: Patient is still running a fever of 100.7-100.4. The patient did have slight tachycardia. She is currently breathing comfortably on room air. When asked specifically denies having any chest pain or cough. No abdominal pain. The patient's diarrhea has slowed down, slightly firming up and no pain to the left heel area. PHYSICAL EXAMINATION: Blood pressure 110/71, pulse of 117, temperature 100.4. She is 94% on room air. General description is an elderly female lying in bed in no distress. Respiratory system: Unlabored breathing, clear to auscultation anteriorly. Heart S1, S2. Regular rate and rhythm. Abdomen: Soft, mildly distended. No guarding. No rigidity. Left heel wound with minimal slough tissue. No surrounding swelling or redness. LABS: Hemoglobin 7.6, white count 21,000. BUN of 21, creatinine 1.34. DIAGNOSTIC IMPRESSION AND PLAN: 1. Patient admitted to the hospital with sepsis concern for C difficile colitis on admission. However, the patient did have persistent fever, elevated white count despite being on oral vancomycin for almost a week now. treatment for her Keeley glabrata urinary tract infection, now with persistent fever with evidence of colitis seen mostly on the right side possible bacterial colitis or ischemic. We will adjust antibiotic therapy to cefepime and Flagyl. Discontinue vancomycin and will monitor clinical course closely. Prognosis remains to be guarded. 2. Left heel wound. Continue local wound care with Santyl and keep the area off the pressure. MMODL / IJN: [id number] /
[2020-10-17] MEDS: ACETAMINOPHEN TAB 325 MG TAB PO PRN ×3 (02:50→23:16)
[2020-10-17 03:11] LABS: Glucose,Whole Blood 148 mg/dL (75-99)
[2020-10-17 06:37] LABS: African American GFR (CKD) 42 (>60 ml/min/1.73 sqM); Anion Gap 7 mmol/L; Blood Urea Nitrogen 26 mg/dL (7-17); Calcium 8.5 mg/dL (8.4-10.2); Carbon Dioxide 14 mmol/L (22-30); Chloride 116 mmol/L (98-107); Glucose 158 mg/dL (74-99); Non-African American GFR(CKD) 37 (>60 ml/min/1.73 sqM); Potassium 3.9 mmol/L (3.5-5.1); Sodium 137 mmol/L (137-145)
[2020-10-17 07:05] LABS: Glucose,Whole Blood 171 mg/dL (75-99)
[2020-10-17] MEDS: INSULIN ASPART (NovoLOG) 100 UNIT/ML VIAL SQ SCH ×6 (07:18→17:55)
[2020-10-17] MEDS: PANTOPRAZOLE 40 MG TABLET PO SCH ×2 (07:31→17:55)
[2020-10-17] MEDS: ATORVASTATIN 10 MG TAB PO SCH (07:31)
[2020-10-17] MEDS: metroNIDAZOLE 500 MG TAB PO SCH ×3 (07:31→23:16)
[2020-10-17] MEDS: SUCRALFATE 1 GM TAB PO SCH ×3 (07:32→17:55)
[2020-10-17] MEDS: HEPARIN SODIUM,PORCINE/PF 5,000 UNIT/0.5 ML SYRINGE SQ SCH ×2 (07:32→23:15)
[2020-10-17] MEDS: CHOLECALCIFEROL 25 MCG (1000 IU) TABLET PO SCH (07:32)
[2020-10-17] MEDS: amLODIPine 5 MG TAB PO SCH (07:32)
[2020-10-17] MEDS: METOPROLOL SUCCINATE (ER) 100 MG TAB.ER.24H PO SCH (07:33)
[2020-10-17] MEDS: DONEPEZIL 5 MG TAB PO SCH (07:33)
[2020-10-17] MEDS: OLANZapine 5 MG TAB PO SCH (07:34)
[2020-10-17] MEDS: COLLAGENASE 250 UNIT/GM OINTMENT 30 GM TUBE TOPICAL SCH (09:00)
[2020-10-17] MEDS: CHOLESTYRAMINE (WITH SUGAR) 4 GM PACKET PO SCH ×2 (09:07→23:15)
[2020-10-17] MEDS: SODIUM FERRIC GLUCONAT-SUCROSE 125 MG in SODIUM CHLORIDE 0.9% 100 ML IVPB SCH (09:07)
[2020-10-17 10:11] LABS: HCT 21.6 % (37.2-46.3); HGB 6.3 g/dL (12.0-15.0); MCHC 29.2 g/dL (32.0-37.0); Mean Platelet Volume 9.4 fL (9.5-12.2); Platelet Count 361 X 10*3/uL (140-440); RBC 2.25 X 10*6/uL (4.10-5.20); RDW 16.2 % (11.5-14.5)
[2020-10-17 11:46] LABS: Glucose,Whole Blood 140 mg/dL (75-99)
--- NOTE | 2020-10-17 12:56 | P.PN ---
Subjective Progress Note Date: 10/17/20 CHIEF COMPLAINT: Anemia HISTORY OF PRESENT ILLNESS: Patient is status post EGD. Patient noted to have a large duodenal ulcer with recent bleed, gastritis and diaphragmatic hiatal hernia. Patient currently on Protonix and Carafate. Patient denies any abdominal pain. She is tolerating her diet. Per nursing staff patient is still having issues with diarrhea. Per nurse no report of any active bleeding. She did have a low-grade temp of 100.4 to the evening. Heart rate 121. WBC is 18.9 hemoglobin is 6.3 patient did complete 2 doses of IV iron. She is scheduled for 1 unit of blood today PHYSICAL EXAM: VITAL SIGNS: Reviewed GENERAL: Well-developed in no acute distress. HEENT: No sclera icterus. Extraocular movements grossly intact. Moist buccal mucosa. Head is atraumatic, normocephalic. Hears conversational speech. No nasal drainage. NECK: Supple without lymphadenopathy. CHEST: Non-labored respirations and equal bilateral excursions. CARDIOVASCULAR: Palpable 2+ radial pulses. ABDOMEN: Soft. Nondistended. Nontender. MUSCULOSKELETAL: No clubbing or cyanosis. NEUROLOGIC: No focal or lateralizing signs. Cranial nerves II through XII grossly intact. PSYCH: Appropriate affect. Alert and oriented to person, place and time. SKIN: Well perfused. Good skin turgor. ASSESSMENT: 1. Large duodenal ulcer with recent bleed 2. Gastritis 3. Diaphragmatic hiatal hernia 4. Iron deficiency anemia status post IV iron transfusion PLAN: -Patient scheduled for 1 unit of blood today -Discontinue Plavix therapy for recent bleeding ulcer for 5 days can resume on 10/18/2020 -Continue Carafate 1 g twice a day to 3 times a day for 2 weeks -Continue Protonix 40 mg twice a day for 2 weeks, then daily for 1 month -Repeat upper endoscopy in 1 month Physician Sole Tacker note has been reviewed by physician. Signing provider agrees with the documented findings, assessment, and plan of care. Objective - Vital Signs Vital signs: Vital Signs Temp 99.7 F H 10/17/20 02:00 Pulse 121 H 10/17/20 02:00 Resp 18 10/17/20 02:00 BP 112/84 10/17/20 02:00 Pulse Ox 93 L 10/17/20 02:00 Intake & Output 10/16/20 10/17/20 10/17/20 18:59 06:59 18:59 Intake Total 340 Output Total 600 601 Balance -260 -601 Intake: Oral 340 Output: Urine 600 600 Stool 1 Other: Voiding Method Indwelling Catheter Indwelling Catheter # Bowel Movements 2 - Labs CBC & Chem 7: 10/17/20 05:51 10/17/20 05:51 Labs: Abnormal Lab Results - Last 24 Hours (Table) 10/16/20 10/16/20 10/17/20 Range/Units 16:29 20:41 03:07 WBC (4.50-10.00) X 10*3/uL RBC (4.10-5.20) X 10*6/uL Hgb (12.0-15.0) g/dL Hct (37.2-46.3) % MCHC (32.0-37.0) g/dL RDW (11.5-14.5) % MPV (9.5-12.2) fL Chloride (98-107) mmol/L Carbon Dioxide (22-30) mmol/L BUN (7-17) mg/dL Creatinine (0.52-1.04) mg/dL Glucose (74-99) mg/dL POC Glucose (mg/dL) 206 H 169 H 148 H (75-99) mg/dL Crossmatch 10/17/20 10/17/20 10/17/20 Range/Units 05:51 05:51 07:02 WBC 18.90 H (4.50-10.00) X 10*3/uL RBC 2.25 L (4.10-5.20) X 10*6/uL Hgb 6.3 L* (12.0-15.0) g/dL Hct 21.6 L (37.2-46.3) % MCHC 29.2 L (32.0-37.0) g/dL RDW 16.2 H (11.5-14.5) % MPV 9.4 L (9.5-12.2) fL Chloride 116 H (98-107) mmol/L Carbon Dioxide 14 L (22-30) mmol/L BUN 26 H (7-17) mg/dL Creatinine 1.41 H (0.52-1.04) mg/dL Glucose 158 H (74-99) mg/dL POC Glucose (mg/dL) 171 H (75-99) mg/dL Crossmatch 10/17/20 10/17/20 Range/Units 10:50 11:42 WBC (4.50-10.00) X 10*3/uL RBC (4.10-5.20) X 10*6/uL Hgb (12.0-15.0) g/dL Hct (37.2-46.3) % MCHC (32.0-37.0) g/dL RDW (11.5-14.5) % MPV (9.5-12.2) fL Chloride (98-107) mmol/L Carbon Dioxide (22-30) mmol/L BUN (7-17) mg/dL Creatinine (0.52-1.04) mg/dL Glucose (74-99) mg/dL POC Glucose (mg/dL) 140 H (75-99) mg/dL Crossmatch See Detail
--- NOTE | 2020-10-17 15:19 | P.PN ---
Subjective Progress Note Date: 10/17/20 Patient is a pleasant 75-year-old female came in with complains of diarrhea high-grade fevers generalized weakness and tiredness. Patient recently completed antibiotic therapy with ciprofloxacin about a week ago she was treated for urinary tract infection patient presented with urinary retention during her last hospitalization. Patient does have a language barrier which is British. Able to get good history because daughter was present at the bedside. Patient was also significantly hypoglycemic patient is on Actos as well as a sulfonylurea for diabetes management. Her last hemoglobin A1c was from September 21 which was 6.3 patient appears to have chronic kidney disease with baseline creatinine of around 1.4 present creatinine is 1.68. Patient does have metabolic acidosis, which appears to be mostly nonambulatory gap. Chest x-ray did not show any significant abnormality, a year is mildly abnormal but no symptoms of a urinary tract infection, no evidence of UTI 10/10/2020 patient is examined at the bedside, RN was present with software release engineer machine. I was able was able to communicate with patient . Patient states that she is not having any abdominal pain, she denies any chest pain cough shortness of breath. Patient states that she is just tired. Patient was an Ateam at 2 AM due to a loss of IV access. Patient at that time was infusing D10 at 1 25 mL per hour. Patient's blood sugar was found to be 22. Patient had Accu-Cheks completed every hour and IV access was established. Patient's blood sugars that have been in the high 200s. Patient had a midline placed this afternoon after losing a second IV. Patient's blood sugar can be checked [id number]. Patient will be transitioned off of the D10 drip to 0.9ns at 75 mL per hour. Patient was found to have a positive culture for C. diff this admission and has been started on oral vancomycin. 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 Patient does have a history of chronic kidney disease stage III with a baseline creatinine of 1.4. Patient has poor oral intake, will be started on oral supplementation, constipation with nutritional services. Oral hypoglycemic agents will be on hold. Patient may resume sliding scale for hyperglycemia. Monitor closely for symptoms of hypoglycemia. Tung meza's hemoglobin has dropped to 7.8 from 9.2. Will recheck hemoglobin at 11 PM as well as in the morning. Continue to monitor for signs of bleeding. Reports patient still having diarrhea. Patient's white blood cell count is stable at 11.5. Continue oral antibiotics. Vital signs are currently stable. 10/11/2020 Patient is examined at the bedside, EKG being performed. Patient denies any abdominal pain, denies cramping, denies nausea vomiting. Patient reports diarrhea. Per RN there are no signs of active bleed. Patient's heart rate was elevated this morning at 150, EKG obtained revealed normal rhythm, sinus tachycardia, lactic acid obtained, 0.8, fluids were increased to 100cc/hr. Joey ramírez's heart rate had improved down to 110 status post metoprolol. Patient continues on by mouth Vanco for a C. diff infection. Patient's hemoglobin today is 7.7, general surgery consultation to rule out an acute GI bleed. Patient reports no issues with urination. Patient's Coumadin and creatinine continue to be elevated. Continue to monitor. Patient's blood sugar current level 399, continue with NovoLog signs were insulin and consistent carb diet. Continue to monitor blood sugars. Encourage ambulation as tolerated. Urine culture finalized for Renato glabrata. Nonhealing wound to the patient's left ankle finalized for gram-negative bacilli final cultures and sensitivity pending. Repeat chest x-ray today, was negative for any acute process. Patient continues to have temperature, T-max 100.6. Continue with local wound care with Santyl. Patient is primarily British-speaking, ride assembly supervisor available. 10/12/2020 Patient is examined today at bedside, patient is awake alert and oriented 3. Patient continues to have loose bowel movements. Per RN patient had to be straight cathed times one for urinary retention, repeat UA and culture has been ordered. Patient's ankle culture has been finalized, growing pseudomonas, antibiotic recommendations per infectious disease. Patient continues to have temperatures, T-max 100.7 in the last 24 hours, heart rate 118, blood pressure 126/57, patient is 96% on room air. Patient can of oral Tylenol as needed. Continue with IV fluids 0.9 at 125 continue to monitor for signs of sepsis. Repeat lactic acid drawn yesterday was a level of 0.08. Patient will continue on PO Vanco for C. diff colitis, recommendations per ID. Patient denies any chest pain, cough, shortness of breath. Patient states that her abdomen feels so-so. Patient is primarily British-speaking. Patient's lab work today revealed a hemoglobin that is now stable at 8.8. White blood cell count is stable at 10.78. Patient's BUN and creatinine are essentially unchanged. Patient is hyperglycemic, continue with NovoLog sliding scale. Continue to encourage oral intake. Patient can continue with local wound care per wound care services. Patient was following the wound care center. 10/13/2020 Patient has an indwelling catheter placed from nursing services, for urinary retention. A UA and culture was sent, infectious disease have added oral voriconazole for a positive UTI. Patient continues on by mouth Vanco for C. diff colitis. Patient was evaluated by surgical services, who performed an EGD this morning, findings consistent with large 1 cm duodenal ulcer, second portion recent bleed, multiple punctate duodenal ulcers with duodenitis, gastritis, diaphragmatic hiatal hernia. There have been no signs of blood in the stool, dark stool per nursing services. Patient is continuing with loose brown stools. In addition patient's left ankle wound has grown Pseudomonas, no further antibiotic recommendations from ID. Patient continues to have temps, T-max 100.4 in the last 24 hours. Patient's blood pressure this morning 170/70, heart rate 114. Continue with IV fluids 0.9 at 125, recheck blood pressure. Blood sugars continue to be elevated intermittently, continue with sliding scale coverage as needed, with scheduled insulin. Hemoglobin stable today at 8.8. Patient's Plavix has been discontinued. Patient wasn't started on Carafate and Protonix for GI prophylaxis. Today patient denies chest pain, reports her stomach feels so-so. Patient is primarily British-speaking, ride assembly supervisor available when needed. Will consult PT/OT, increase activity level as tolerated. 10/14/2020 patient is evaluated sitting up in the chair today. patient states that her belly feels so/so. She is still having diarrhea, loose per RN. Patient continues on oral vanco and was started on questran via ID services. Patient continues with IDC for urinary retention, has been started on oral vfen for positive renato urine culture. Patient was evaluated by PT today, who recommends 24/ post discharge with either homecare services or [facility]. Patient continues to be febrile, t-max 99.7 in the last 24 hours, which is slowly improving. Patients HR is 120 sinus tachycardia, she was started on toprol XL 100 mg po daily, without improvement. She was increased to 150 mg PO Daily. Pt continues on IV fluids. She has a fair appetite. Continue to encourage ambulation. 10/15/2020 Patient is sitting up in the bed today, is working with PT OT and has gone up in the chair yesterday. Patient states her belly still feels so-so, she still having diarrhea, was started on Questran yesterday in addition to by mouth Vanco. Patient continues with IDC for urinary retention, has been started on oral Vfend for a positive renato urine culture. Patient continues to be febrile, T-max 100 in the last 24 hours. This is a improvement. Patient was started on Toprol for sinus tachycardia, improving, her weight today is 15. Patient denies any chest pain, cough. Blood pressure today is 156/71, 96% on room air. Patient's white count continues to trend down slowly, 15.1 today. Continue to monitor blood sugars closely. The plan on discharge once medically stable is to return home with daughter on discharge with [facility]. 10/16/2020 Patient is evaluated she is resting in the bed. Patient states that her belly is still causing her some discomfort. She states that she does get upset stomach after eating. Per RN patient has 2 bowel movements throughout the night both were loose. Patient continues on Questran, by mouth Vanco. Patient has ID C for urinary retention. She is on oral Vfend for positive renato urine culture. Patient needs to remain febrile in the last 24 hours is 100.7, patient is still sinus tachycardia, heart rate 130s this morning. Blood pressure 103/60, 93% on room air. Repeat EKG demonstrated sinus tachycardia. Patient has an echocardiogram pending, increased metoprolol 200 mg by mouth daily yesterday. Patient had IV fluids ordered at 0.9 at 125. Patient will have a repeat chest x-ray today to follow up with the abdominal pelvis CT that demonstrated possible chronic congestive heart failure. We will repeat a chem panel, blood count, magnesium, lactic acid today. Infectious disease at the bedside and discussed findings. Patient's hemoglobin yesterday was 7.5, no signs of an acute bleed, will repeat. Patient denies any chest pain, chest discomfort. She does state that she is weak and has a poor appetite. 10/17/2020 Patient is evaluated in the bed. She hasn't worked with PT and OT. Today tung meza's hemoglobin came back at 6.3. Patient has received 2 doses of IV iron via surgical services. Patient will receive 1 unit of PRBCs today. Patient's white blood cell count today is 18.9 which is improved from yesterday at 21. Patient for complaints of some abdominal discomfort, nausea, diarrhea. Per RN, patient had liquid bowel movements every 2 hours last night. Patient continues on quest ran and hasn't changed to by mouth Flagyl. Patient isn't potassium carefully for GI prophylaxis. Patient has been placed on a consistent carb diet, however patient does not have much of an appetite. Echocardiogram revealed an ejection fraction of 55-60%, mild tricuspid regurg, small pericardial effusion located new left ventricle. Patient remains in sinus tachycardia, heart rate between 118-107. Request a cardiology consultation today in lieu of elevated heart rate, patient is continued on metoprolol XL 200 mg daily. Fluids have been discontinued due to the sensory findings which could correlate for mild CHF. Patient BNP yesterday was 12,000, 100 and a dose of IV Lasix was given. Shalonda doyle's creatinine today is now 1.41. Will recheck in the morning. IV cefepime has been added from infectious disease services. ROS: Constitutional: Denied any fatigue denied any fever. Cardio vascular: denied any chest pain, palpitations Gastrointestinal denied any nausea vomiting, reports diarrhea. Reports decreased appetite Pulmonary: Denied any shortness of breath cough Neurologic denied any new focal deficits All inpatient medications were reviewed and appropriate changes in these medications as dictated in the interval history and assessment and plan. PHYSICAL EXAMINATION: GENERAL: The patient is alert and oriented x3, not in any acute distress. Well developed, well nourished. HEENT: Pupils are round and equally reacting to light. EOMI. No scleral icterus. No conjunctival pallor. Normocephalic, atraumatic. No pharyngeal erythema. No thyromegaly. CARDIOVASCULAR: S1 and S2 present. No murmurs, rubs, or gallops. PULMONARY: Chest is clear to auscultation, no wheezing or crackles. ABDOMEN: Soft, nontender, nondistended, hyperactive bowel sounds. MUSCULOSKELETAL: No joint swelling or deformity. EXTREMITIES: No cyanosis, clubbing, or pedal edema. NEUROLOGICAL: Gross neurological examination did not reveal any focal deficits. SKIN: Nonhealing wound on buttock and left ankle/heel, Assessment and plan -Sepsis: Secondary to C. diff colitis, continued leukocytosis, sinus tachycardia, lactic acid within normal limits. Antibiotic changes via ID. -C diff Colitis - Questran, changed to PO Flagyl -Severe hypoglycemia, has resolved, patient has been transitioned off of the D5 drip. Continue with the long sliding scale as needed continue to hold oral hypoglycemic agents. -Carotid artery disease continue on current cardiac medications -Hypertension patient was resumed on beta milli and amlodipine, requesting cardiology consultation -diabetes mellitus type 2, With hyperglycemia. Patient is on sliding scale, scheduled NovoLog continue to hold oral agents due to risk for hypoglycemia. -Diabetic nephropathy chronic kidney disease stage III baseline creatinine of around 1.4, today 1.4 to recheck tomorrow Anemia secondary to an acute bleeding duodenal ulcer, gastritis - EGD performed today, holding Plavix for 5 days, can resume on 10/18/20. Hemoglobin today is 6.3, patient has received 2 doses of IV iron, transfusing 1 unit PRBC today, recheck in the morning. Leukocytosis, related to C. diff colitis infection with sepsis, left ankle pseudomonas - by mouth Flagyl and IV cefepime added today VID. Continue with by mouth Vanco. Wound cultures positive for Pseudomonas. White blood cell count today 18.9 Diabetes mellitus type 2, with hyperglycemia, with nonhealing ulcers plan as above Nonhealing pressure ulcer, patient is following with wound care, continue with current wound care recommendations. Positive pseudomonas, IV antibiotics Renato glabrata UTI, treated with Vfend, unrelated to indwelling catheter. -Sinus tachycardia, increased dose of Toprol, patient on telemetry, appreciate cardiology consultation. Acute mild CHF, EF 55-60%. BNP 12,100. Will give one-time dose of IV Lasix. And discontinue fluids for time being. -DVT prophylaxis, ambulation as tolerated, subcu heparin, GI prophylaxis Protonix, Carafate PO flagyl for cdif colitis, abd pelvis ct negative for bleed, possible ischemic colitis on top of infectious colitis, ID aware and following. IV cefepime added today, positive Pseudomonas wound culture. Patient had an EGD performed this admission, which revealed a duodenal ulcer that was recently bleeding, gastritis, diaphragmatic hernia. Patient is recommended to have an EGD outpatient in 1 month to follow-up. Patient is placed on Carafate and Protonix for prophylaxis via surgical services, Plavix and hold for 5 days. Continue to monitor hemoglobin closely. 6.3 today, transfuse 1 unit PRBC. Continue to encourage ambulation as tolerated. PT OT consultation. Patient will return home with daughter on discharge with home care services. Echocardiogram completed, cardiology consultation has been placed for persistant sinus tachycardia. Replace electrolytes per protocol. IV fluids have been discontinued, one-time dose of IV Lasix was given. labs in the AM. Objective - Vital Signs Vital signs: Vital Signs Temp 99.7 F H 10/17/20 02:00 Pulse 121 H 10/17/20 02:00 Resp 18 10/17/20 02:00 BP 112/84 10/17/20 02:00 Pulse Ox 93 L 10/17/20 02:00 Intake & Output 10/16/20 10/17/20 10/17/20 18:59 06:59 18:59 Intake Total 340 Output Total 600 601 Balance -260 -601 Intake: Oral 340 Output: Urine 600 600 Stool 1 Other: Voiding Method Indwelling Catheter Indwelling Catheter # Bowel Movements 2 - Labs CBC & Chem 7: 10/17/20 05:51 10/17/20 05:51 Labs: Abnormal Lab Results - Last 24 Hours (Table) 10/16/20 10/16/20 10/17/20 Range/Units 16:29 20:41 03:07 WBC (4.50-10.00) X 10*3/uL RBC (4.10-5.20) X 10*6/uL Hgb (12.0-15.0) g/dL Hct (37.2-46.3) % MCHC (32.0-37.0) g/dL RDW (11.5-14.5) % MPV (9.5-12.2) fL Chloride (98-107) mmol/L Carbon Dioxide (22-30) mmol/L BUN (7-17) mg/dL Creatinine (0.52-1.04) mg/dL Glucose (74-99) mg/dL POC Glucose (mg/dL) 206 H 169 H 148 H (75-99) mg/dL Crossmatch 10/17/20 10/17/20 10/17/20 Range/Units 05:51 05:51 07:02 WBC 18.90 H (4.50-10.00) X 10*3/uL RBC 2.25 L (4.10-5.20) X 10*6/uL Hgb 6.3 L* (12.0-15.0) g/dL Hct 21.6 L (37.2-46.3) % MCHC 29.2 L (32.0-37.0) g/dL RDW 16.2 H (11.5-14.5) % MPV 9.4 L (9.5-12.2) fL Chloride 116 H (98-107) mmol/L Carbon Dioxide 14 L (22-30) mmol/L BUN 26 H (7-17) mg/dL Creatinine 1.41 H (0.52-1.04) mg/dL Glucose 158 H (74-99) mg/dL POC Glucose (mg/dL) 171 H (75-99) mg/dL Crossmatch 10/17/20 10/17/20 Range/Units 10:50 11:42 WBC (4.50-10.00) X 10*3/uL RBC (4.10-5.20) X 10*6/uL Hgb (12.0-15.0) g/dL Hct (37.2-46.3) % MCHC (32.0-37.0) g/dL RDW (11.5-14.5) % MPV (9.5-12.2) fL Chloride (98-107) mmol/L Carbon Dioxide (22-30) mmol/L BUN (7-17) mg/dL Creatinine (0.52-1.04) mg/dL Glucose (74-99) mg/dL POC Glucose (mg/dL) 140 H (75-99) mg/dL Crossmatch See Detail Assessment and Plan Time with Patient: Greater than 30
[2020-10-17 16:40] LABS: Glucose,Whole Blood 181 mg/dL (75-99)
[2020-10-17] MEDS: CEFEPIME 1 GM in SODIUM CHLORIDE 0.9% 50 ML IVPB SCH (17:55)
[2020-10-17] MEDS ORDERED: CEFEPIME 2 GM in SODIUM CHLORIDE 0.9% 100 ML IVPB SCH (18:00)
--- NOTE | 2020-10-17 18:06 | PN ---
PROGRESS NOTE DATE OF SERVICE: 10/17/2020 REASON FOR FOLLOWUP VISIT: Colitis, questionably ischemic on the top of C. dif. INTERVAL HISTORY: Patient overall fever pattern has improved, this morning the patient 99.7 compared to 100.7 yesterday. The patient is on room air. Denies having any chest pain or cough. No abdominal pain. Did have diarrhea with multiple loose stool per the nursing staff. No blood or mucus in the stool. PHYSICAL EXAMINATION: Blood pressure 124/84, pulse of 121, temp 99.5, he is 93% on room air. General description is an elderly female lying in bed in no distress. Respiratory system: Unlabored breathing, clear to auscultation anteriorly. Heart S1, S2. Regular rate and rhythm. Abdomen: Soft, no distention. No guarding. No rigidity. Extremities: No edema of the feet. LABS: Hemoglobin down to 6.2 with white count of 18.90, down from yesterday 21,000, BUN of 26, creatinine 1.41. DIAGNOSTIC IMPRESSION AND PLAN: Patient with fever, diarrhea with initial concern for C difficile colitis. However, the patient clinically did not improve with oral vancomycin. Did have persistent fever and elevated white count. CT did show evidence of ischemic colitis, possible ischemic. Antibiotic has been changed to cefepime and Flagyl yesterday. Fever is down, white count is trending down, will continue for now while monitor clinical course closely. We will also obtain stool cultures and continue supportive care. MMODL / IJN: [id number] /
[2020-10-17 20:05] LABS: Glucose,Whole Blood 158 mg/dL (75-99)
[2020-10-18] MEDS: INSULIN ASPART (NovoLOG) 100 UNIT/ML VIAL SQ SCH ×8 (02:51→22:35)
[2020-10-18] MEDS: LATANOPROST 0.005% OPHTH DROPS 2.5 ML BTL BOTH EYES SCH ×2 (02:51→22:35)
[2020-10-18 03:52] LABS: Glucose,Whole Blood 201 mg/dL (75-99)
[2020-10-18] MEDS: CEFEPIME 1 GM in SODIUM CHLORIDE 0.9% 50 ML IVPB SCH ×2 (06:20→17:06)
[2020-10-18 07:07] LABS: Glucose,Whole Blood 186 mg/dL (75-99)
[2020-10-18] MEDS: HEPARIN SODIUM,PORCINE/PF 5,000 UNIT/0.5 ML SYRINGE SQ SCH ×2 (07:23→22:35)
[2020-10-18] MEDS: SUCRALFATE 1 GM TAB PO SCH ×3 (07:24→15:55)
[2020-10-18] MEDS: amLODIPine 5 MG TAB PO SCH (07:24)
[2020-10-18] MEDS: PANTOPRAZOLE 40 MG TABLET PO SCH ×2 (07:24→15:55)
[2020-10-18] MEDS: ATORVASTATIN 10 MG TAB PO SCH (07:24)
[2020-10-18] MEDS: CHOLECALCIFEROL 25 MCG (1000 IU) TABLET PO SCH (07:24)
[2020-10-18] MEDS: metroNIDAZOLE 500 MG TAB PO SCH ×3 (07:24→22:35)
[2020-10-18] MEDS: METOPROLOL SUCCINATE (ER) 100 MG TAB.ER.24H PO SCH (07:25)
[2020-10-18] MEDS: DONEPEZIL 5 MG TAB PO SCH (07:25)
[2020-10-18] MEDS: OLANZapine 5 MG TAB PO SCH (07:25)
--- NOTE | 2020-10-18 11:01 | P.PN ---
Subjective Patient is a pleasant 75-year-old female came in with complains of diarrhea high-grade fevers generalized weakness and tiredness. Patient recently completed antibiotic therapy with ciprofloxacin about a week ago she was treated for urinary tract infection patient presented with urinary retention during her last hospitalization. Patient does have a language barrier which is [place]alan. Able to get good history because daughter was present at the bedside. Patient was also significantly hypoglycemic patient is on Actos as well as a sulfonylurea for diabetes management. Her last hemoglobin A1c was from September 21 which was 6.3 patient appears to have chronic kidney disease with baseline creatinine of around 1.4 present creatinine is 1.68. Patient does have metabolic acidosis, which appears to be mostly nonambulatory gap. Chest x-ray did not show any significant abnormality, a year is mildly abnormal but no symptoms of a urinary tract infection, no evidence of UTI 10/10/2020 patient is examined at the bedside, RN was present with innersole fitter machine. I was able was able to communicate with patient . Patient states that she is not having any abdominal pain, she denies any chest pain cough shortness of breath. Patient states that she is just tired. Patient was an Ateam at 2 AM due to a loss of IV access. Patient at that time was infusing D10 at 1 25 mL per hour. Patient's blood sugar was found to be 22. Patient had Accu-Cheks completed every hour and IV access was established. Patient's blood sugars that have been in the high 200s. Patient had a midline placed this afternoon after losing a second IV. Patient's blood sugar can be checked [id number]. Patient will be transitioned off of the D10 drip to 0.9ns at 75 mL per hour. Patient was found to have a positive culture for C. diff this admission and has been started on oral vancomycin. 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 Patient does have a history of chronic kidney disease stage III with a baseline creatinine of 1.4. Patient has poor oral intake, will be started on oral supplementation, constipation with nutritional services. Oral hypoglycemic agents will be on hold. Patient may resume sliding scale for hyperglycemia. Monitor closely for symptoms of hypoglycemia. Patient's hemoglobin has dropped to 7.8 from 9.2. Will recheck hemoglobin at 11 PM as well as in the morning. Continue to monitor for signs of bleeding. Reports patient still having diarrhea. Patient's white blood cell count is stable at 11.5. Continue oral antibiotics. Vital signs are currently stable. 10/11/2020 Patient is examined at the bedside, EKG being performed. Patient denies any abdominal pain, denies cramping, denies nausea vomiting. Patient reports diarrhea. Per RN there are no signs of active bleed. Patient's heart rate was elevated this morning at 150, EKG obtained revealed normal rhythm, sinus tachycardia, lactic acid obtained, 0.8, fluids were increased to 100cc/hr. Patient's heart rate had improved down to 110 status post metoprolol. Patient continues on by mouth Vanco for a C. diff infection. Patient's hemoglobin today is 7.7, general surgery consultation to rule out an acute GI bleed. Patient reports no issues with urination. Patient's Coumadin and creatinine continue to be elevated. Continue to monitor. Patient's blood sugar current level 399, continue with NovoLog signs were insulin and consistent carb diet. Continue to monitor blood sugars. Encourage ambulation as tolerated. Urine culture finalized for Renato glabrata. Nonhealing wound to the patient's left ankle finalized for gram-negative bacilli final cultures and sensitivity pending. Repeat chest x-ray today, was negative for any acute process. Patient continues to have temperature, T-max 100.6. Continue with local wound care with Sant[facility]. Patient is primarily Guatemalan-speaking, non profit job titles available. 10/12/2020 Patient is examined today at bedside, patient is awake alert and oriented 3. Patient continues to have loose bowel movements. Per RN patient had to be straight cathed times one for urinary retention, repeat UA and culture has been ordered. Patient's ankle culture has been finalized, growing pseudomonas, antibiotic recommendations per infectious disease. Patient continues to have temperatures, T-max 100.7 in the last 24 hours, heart rate 118, blood pressure 126/57, patient is 96% on room air. Patient can of oral Tylenol as needed. Continue with IV fluids 0.9 at 125 continue to monitor for signs of sepsis. Repeat lactic acid drawn yesterday was a level of 0.08. Patient will continue on PO Vanco for C. diff colitis, recommendations per ID. Patient denies any chest pain, cough, shortness of breath. Patient states that her abdomen feels so-so. Patient is primarily Guatemalan-speaking. Patient's lab work today revealed a hemoglobin that is now stable at 8.8. White blood cell count is s table at 10.78. Patient's BUN and creatinine are essentially unchanged. Patient is hyperglycemic, continue with NovoLog sliding scale. Continue to encourage oral intake. Patient can continue with local wound care per wound care services. Patient was following the wound care center. 10/13/2020 Patient has an indwelling catheter placed from nursing services, for urinary retention. A UA and culture was sent, infectious disease have added oral voriconazole for a positive UTI. Patient continues on by mouth Vanco for C. diff colitis. Patient was evaluated by surgical services, who performed an EGD this morning, findings consistent with large 1 cm duodenal ulcer, second portion recent bleed, multiple punctate duodenal ulcers with duodenitis, gastritis, diaphragmatic hiatal hernia. There have been no signs of blood in the stool, dark stool per nursing services. Patient is continuing with loose brown stools. In addition patient's left ankle wound has grown Pseudomonas, no further an tibiotic recommendations from ID. Patient continues to have temps, T-max 100.4 in the last 24 hours. Patient's blood pressure this morning 170/70, heart rate 114. Continue with IV fluids 0.9 at 125, recheck blood pressure. Blood sugars continue to be elevated intermittently, continue with sliding scale coverage as needed, with scheduled insulin. Hemoglobin stable today at 8.8. Patient's Plav ix has been discontinued. Patient wasn't started on Carafate and Protonix for GI prophylaxis. Today patient denies chest pain, reports her stomach feels so- so. Patient is primarily [place]alan-speaking, non profit job titles available when needed. Will consult PT/OT, increase activity level as tolerated. 10/14/2020 patient is evaluated sitting up in the chair today. patient states that her belly feels so/so. She is still having diarrhea, loose per RN. Patient continues on oral vanco and was started on questran via ID services. Patient continues with IDC for urinary retention, has been started on oral vfen for positive renato urine culture. Patient was evaluated by PT today, who recommends 24/7 post discharge with either homecare services or [facility]. Patient continues to be febrile, t-max 99.7 in the last 24 hours, which is slowly improving. Patients HR is 120 sinus tachycardia, she was started on toprol XL 100 mg po daily, without improvement. She was increased to 150 mg PO Daily. Pt continues on IV fluids. She has a fair appetite. Continue to encourage ambulation. 10/15/2020 Patient is sitting up in the bed today, is working with PT OT and has gone up in the chair yesterday. Patient states her belly still feels so-so, she still having diarrhea, was started on Questran yesterday in addition to by mouth Vanco. Patient continues with IDC for urinary retention, has been started on oral Vfend for a positive renato urine culture. Patient continues to be febrile, T-max 100 in the last 24 hours. This is a improvement. Patient was started on Toprol for sinus tachycardia, improving, her weight today is 15. Patient denies any chest pain, cough. Blood pressure today is 156/71, 96% on room air. Patient's white count continues to trend down slowly, 15.1 today. Continue to monitor blood sugars closely. The plan on discharge once medically stable is to return home with daughter on discharge with [facility]. 10/16/2020 Patient is evaluated she is resting in the bed. Patient states that her belly is still causing her some discomfort. She states that she does get upset st om[facility] after eating. Per RN patient has 2 bowel movements throughout the night both were loose. Patient continues on Questran, by mouth Vanco. Patient has IDC for urinary retention. She is on oral Vfend for positive renato urine culture. Patient needs to remain febrile in the last 24 hours is 100.7, patient is still sinus tachycardia, heart rate 130s this morning. Blood pressure 103/60, 93% on room air. Repeat EKG demonstrated sinus tachycardia. Patient has an echocardiogram pending, increased metoprolol 200 mg by mouth daily yesterday. Patient had IV fluids ordered at 0.9 at 125. Patient will have a repeat chest x-ray today to follow up with the abdominal pelvis CT that demonstrated possible chronic congestive heart failure. We will repeat a chem panel, blood count, magnesium, lactic acid today. Infectious disease at the bedside and discussed findings. Patient's hemoglobin yesterday was 7.5, no signs of an acute bleed, will repeat. Patient denies any chest pain, chest dis comfort. She does state that she is weak and has a poor appetite. 10/17/2020 Patient is evaluated in the bed. She hasn't worked with PT and OT. Today patient's hemoglobin came back at 6.3. Patient has received 2 doses of IV iron via surgical services. Patient will receive 1 unit of PRBCs today. Patient's white blood cell count today is 18.9 which is improved from yesterday at 21. Patient for complaints of some abdominal discomfort, nausea, diarrhea. Per RN, patient had liquid bowel movements every 2 hours last night. Patient continues on questran and hasn't changed to by mouth Flagyl. Patient isn't potassium carefully for GI prophylaxis. Patient has been placed on a consistent carb diet, however patient does not have much of an appetite. Echocardiogram revealed an ejection fraction of 55-60%, mild tricuspid regurg, small pericardial effusion located new left ventricle. Patient remains in sinus tachycardia, heart rate between 118-107. Request a cardiology consultation topham nova in lieu of elevated heart rate, patient is continued on metoprolol XL 200 mg daily. Fluids have been discontinued due to the sensory findings which could correlate for mild CHF. Patient BNP yesterday was 12,000, 100 and a dose of IV Lasix was given. Patient's creatinine today is now 1.41. Will recheck in the morning. IV cefepime has been added from infectious disease services. 10/18/2020 Patient's repeat labs are still pending. Patient does look pale. Patient had one episode of diarrhea. Patient remains tachycardic patient blood pressures are low normal at this can you amlodipine that will help with the improvement of blood pressure as well as tachycardia. Patient remains on cefepime and metronidazole. ROS: Constitutional: Denied any fatigue denied any fever. Cardio vascular: denied any chest pain, palpitations Gastrointestinal denied any nausea vomiting, reports diarrhea. Reports decreased appetite Pulmonary: Denied any shortness of breath cough Neurologic denied any new focal deficits All inpatient medications were reviewed and appropriate changes in these medications as dictated in the interval history and assessment and plan. PHYSICAL EXAMINATION: GENERAL: The patient is alert and oriented x3, not in any acute distress. Well developed, well nourished. HEENT: Pupils are round and equally reacting to light. EOMI. No scleral icterus. No conjunctival pallor. Normocephalic, atraumatic. No pharyngeal erythema. No thyromegaly. CARDIOVASCULAR: S1 and S2 present. No murmurs, rubs, or gallops. PULMONARY: Chest is clear to auscultation, no wheezing or crackles. ABDOMEN: Soft, nontender, nondistended, hyperactive bowel sounds. MUSCULOSKELETAL: No joint swelling or deformity. EXTREMITIES: No cyanosis, clubbing, or pedal edema. NEUROLOGICAL: Gross neurological examination did not reveal any focal deficits. SKIN: Nonhealing wound on buttock and left ankle/heel, Assessment and plan -Sepsis secondary to C. diff colitis is being treated for pseudomonal UTI as well: Patient's heart rate is better at this time 1 episode of diarrhea -C diff Colitis - Questran, changed to PO Flagyl -Severe hypoglycemia, improved now -Carotid artery disease continue on current cardiac medications -Hypertension patient was resumed on beta milli is continued Norvasc -diabetes mellitus type 2, With hyperglycemia. Patient is on sliding scale, scheduled NovoLog continue to hold oral agents due to risk for hypoglycemia. -Diabetic nephropathy chronic kidney disease stage III baseline creatinine of around 1.4, Anemia secondary to an acute bleeding duodenal ulcer, gastritis - EGD performed holding Plavix for 7 days, can resume on 10/20/20. Hemoglobin today is 6.3, patient has received 2 doses of IV iron, unit of PRBC transfusion to recheck the is pending Leukocytosis, related to C. diff colitis infection with sepsis, left ankle pseudomonas - by mouth Flagyl and IV cefepime added today VID. Continue with by mouth Vanco. Wound cultures positive for Pseudomonas. White blood cell count today 18.9 Diabetes mellitus type 2, with hyperglycemia, with nonhealing ulcers plan as above Nonhealing pressure ulcer, patient is following with wound care, continue with current wound care recommendations. Positive pseudomonas, IV antibiotics Renato glabrata UTI, treated with Vfend, unrelated to indwelling catheter. -Sinus tachycardia, increased dose of Toprol, patient on telemetry, appreciate cardiology consultation. Acute mild CHF, EF 55-60%. BNP 12,100. Will give one-time dose of IV Lasix. And discontinue fluids for time being. -DVT prophylaxis, ambulation as tolerated, subcu heparin, GI prophylaxis Protonix, Carafate Objective - Vital Signs Vital signs: Vital Signs Temp 98.4 F 10/18/20 07:31 Pulse 115 H 10/18/20 07:31 Resp 18 10/18/20 07:31 BP 139/62 10/18/20 07:31 Pulse Ox 92 L 10/18/20 07:31 Intake & Output 10/17/20 10/18/20 10/18/20 18:59 06:59 18:59 Intake Total 840 240 Output Total 600 503 Balance 240 -263 Weight 66.769 kg Intake: Intake, IV Titration 50 Amount Cefepime 1 gm In Sodium 50 Chloride 0.9% 50 ml @ 12. 5 mls/hr IVPB Q12H [facility] Rx #:[id number] Oral 480 240 Blood Product 310 Rc As-1 Unit 310 [id number] Output: Urine 600 500 Stool 1 Urine/Stool Mix 2 Other: Voiding Method Indwelling Catheter # Bowel Movements 2 - Labs CBC & Chem 7: 10/17/20 05:51 10/17/20 05:51 Labs: Abnormal Lab Results - Last 24 Hours (Table) 10/17/20 10/17/20 10/17/20 Range/Units 10:50 11:42 16:28 POC Glucose (mg/dL) 140 H 181 H (75-99) mg/dL Crossmatch See Detail 10/17/20 10/18/20 10/18/20 Range/Units 19:49 03:50 07:06 POC Glucose (mg/dL) 158 H 201 H 186 H (75-99) mg/dL Crossmatch Microbiology - Last 24 Hours (Table) 10/17/20 18:00 Stool Culture - Preliminary Stool
[2020-10-18] MEDS: CHOLESTYRAMINE (WITH SUGAR) 4 GM PACKET PO SCH ×2 (11:08→22:34)
[2020-10-18 11:28] LABS: Glucose,Whole Blood 165 mg/dL (75-99)
[2020-10-18 11:39] LABS: HCT 26.2 % (37.2-46.3); HGB 8.2 g/dL (12.0-15.0); MCH 29.7 pg (27.0-32.0); MCHC 31.3 g/dL (32.0-37.0); MCV 94.9 fL (80.0-97.0); Mean Platelet Volume 9.2 fL (9.5-12.2); Platelet Count 441 X 10*3/uL (140-440); RBC 2.76 X 10*6/uL (4.10-5.20); RDW 16.4 % (11.5-14.5); WBC 16.99 X 10*3/uL (4.50-10.00)
[2020-10-18 12:27] LABS: African American GFR (CKD) 36.4 (60.0-200.0); Albumin 2.3 g/dL (3.80-4.90); Albumin/Globulin Ratio 0.96 (1.60-3.17); BUN/Creat Ratio 19.38 Ratio (12.00-20.00); Calcium 8.1 mg/dL (8.7-10.3); Globulin 2.4 g/dL (1.6-3.3); Non-African American GFR(CKD) 31.4 (60.0-200.0); Potassium 3.9 mmol/L (3.5-5.5); Total Bilirubin 0.2 mg/dL (0.2-1.2); Total Protein 4.7 g/dL (6.2-8.2)
--- NOTE | 2020-10-18 12:27 | P.PN ---
Subjective Progress Note Date: 10/18/20 CHIEF COMPLAINT: Acute blood loss anemia HISTORY OF PRESENT ILLNESS: The patient is a 75-year-old female who presented with C. diff colitis and acute blood loss anemia. Upper endoscopy demonstrated a large 1 cm duodenal ulcer with recent bleed. Patient was stable however had acute drop in hemoglobin yesterday. She received 1 unit of blood. Per nurse, decreased diarrhea, 1 bowel movement today and two last night. Family is at bedside. She is feeling much better. Family confirms she looks much better and less pale. She is eating and has an appetite. ROS: No reports of nausea and vomiting. She has multiple bowel movements. No fevers or chills. No new chest pain. No productive sputum. Patient speaks Yemeni. PHYSICAL EXAM: VITAL SIGNS: Reviewed CONSTITUTIONAL: Well developed and in no acute distress. EYES: Conjuctivae without sclera icterus. Extraocular movements grossly intact. HEAD, EARS, NOSE, THROAT: Moist buccal mucosa. Head is atraumatic, normocephalic. Hears conversational speech. No nasal drainage. NECK: No gross thyroidomegaly. RESPIRATORY: Non-labored respirations and equal bilateral excursions. CARDIOVASCULAR: Palpable 2+ radial pulses. ABDOMEN: No peritonitis. MUSCULOSKELETAL: No gross deformity of the lower extremities noted. No clubbing. No cyanosis. SKIN: Good skin turgor. Well perfused. NEUROLOGIC: Cranial nerves II through XII grossly intact. No focal or lateralizing signs. PSYCH: Appropriate affect. Alert and oriented to person, place and time. CLINICAL LABS: Reviewed. Hemoglobin dropped 6.3 now up to 8.2. White blood fransisco l count elevated over 18,000. ASSESSMENT: 1. C. diff colitis 2. Large duodenal ulcer 3. Sepsis due to colitis PLAN: 1. Continue antibiotic management for complicated infectious disease. Infe ctious disease team following. 2. Continue Protonix, Carafate. 3. Avoid NSAIDs and antiplatelet therapy 4. Diet as tolerated. Objective - Vital Signs Vital signs: Vital Signs Temp 98.4 F 10/18/20 07:31 Pulse 115 H 10/18/20 07:31 Resp 18 10/18/20 07:31 BP 139/62 10/18/20 07:31 Pulse Ox 92 L 10/18/20 07:31 Intake & Output 10/17/20 10/18/20 10/18/20 18:59 06:59 18:59 Intake Total 840 240 Output Total 600 503 Balance 240 -263 Weight 66.769 kg Intake: Intake, IV Titration 50 Amount Cefepime 1 gm In Sodium 50 Chloride 0.9% 50 ml @ 12. 5 mls/hr IVPB Q12H [facility] Rx #:[id number] Oral 480 240 Blood Product 310 Rc As-1 Unit 310 [id number] Output: Urine 600 500 Stool 1 Urine/Stool Mix 2 Other: Voiding Method Indwelling Catheter # Bowel Movements 2 - Labs CBC & Chem 7: 10/18/20 07:42 10/17/20 05:51 Labs: Abnormal Lab Results - Last 24 Hours (Table) 10/17/20 10/17/20 10/17/20 Range/Units 10:50 11:42 16:28 POC Glucose (mg/dL) 140 H 181 H (75-99) mg/dL Crossmatch See Detail 10/17/20 10/18/20 10/18/20 Range/Units 19:49 03:50 07:06 POC Glucose (mg/dL) 158 H 201 H 186 H (75-99) mg/dL Crossmatch Microbiology - Last 24 Hours (Table) 10/17/20 18:00 Stool Culture - Preliminary Stool Assessment and Plan (1) C. difficile colitis Current Visit: Yes Status: Acute Code(s): A04.72 - ENTEROCOLITIS D/T CLOSTRIDIUM DIFFICILE, NOT SPCF RECUR SNOMED Code(s): 000506987 (2) Sepsis Current Visit: Yes Status: Acute Code(s): A41.9 - SEPSIS, UNSPECIFIED ORGANISM SNOMED Code(s): 27512202 (3) Fever Current Visit: Yes Status: Acute Code(s): R50.9 - FEVER, UNSPECIFIED SNOMED Code(s): 296650008 (4) CADE (acute kidney injury) Current Visit: No Status: Acute Code(s): N17.9 - ACUTE KIDNEY FAILURE, UNSPECIFIED SNOMED Code(s): 53254510 (5) Anemia Current Visit: No Status: Acute Code(s): D64.9 - ANEMIA, UNSPECIFIED SNOMED Code(s): 076514609 (6) Poorly controlled type 2 diabetes mellitus Current Visit: Yes Status: Acute Code(s): E11.65 - TYPE 2 DIABETES MELLITUS WITH HYPERGLYCEMIA SNOMED Code(s): 43763606 (7) Hyperglycemia Current Visit: Yes Status: Acute Code(s): R73.9 - HYPERGLYCEMIA, UNSPECIFIED SNOMED Code(s): 52455997 (8) Hyperglycemia due to type 2 diabetes mellitus Current Visit: Yes Status: Acute Code(s): E11.65 - TYPE 2 DIABETES MELLITUS WITH HYPERGLYCEMIA SNOMED Code(s): 015735431213847
[2020-10-18] MEDS: COLLAGENASE 250 UNIT/GM OINTMENT 30 GM TUBE TOPICAL SCH (15:55)
[2020-10-18 16:54] LABS: Glucose,Whole Blood 220 mg/dL (75-99)
--- NOTE | 2020-10-18 19:19 | PN ---
PROGRESS NOTE DATE OF SERVICE: 10/18/2020 REASON FOR FOLLOWUP: Colitis and UTI. INTERVAL HISTORY: The patient is afebrile. The patient mentioned she is feeling slightly better today. The patient's diarrhea has slowed down. No chest pain, shortness of breath or cough. No nausea. No vomiting. PHYSICAL EXAMINATION: On examination, blood pressure 124/65, pulse of 87, temperature 98.4. She is 92% on room air. GENERAL DESCRIPTION: General description is an elderly female lying in bed in no distress. RESPIRATORY SYSTEM: Unlabored breathing. Clear to auscultation anteriorly. HEART: S1, S2. Regular rate and rhythm. ABDOMEN: Soft. No tenderness. LABS: Hemoglobin 8.1, white count 16.9, BUN of , creatinine 1.6. DIAGNOSTIC IMPRESSION AND PLAN: 1. Patient with colitis. Concern was for Clostridium difficile initially; however, the patient did not respond to the vancomycin. Her fever responded to the cefepime and Flagyl; to continue while waiting for the stool culture to finalize. 2. Catheter-associated urinary tract infection. She is covered with . Daughter at the bedside. Questions were answered. MMODL / IJN: [id number] /
[2020-10-18 20:33] LABS: Glucose,Whole Blood 167 mg/dL (75-99)
[2020-10-18] MEDS: ACETAMINOPHEN TAB 325 MG TAB PO PRN (22:34)
--- NOTE | 2020-10-18 23:11 | P.CRDCN ---
History of Present Illness History of present illness: HISTORY OF PRESENTING ILLNESS Patient is a pleasant 75-year-old female who is predominantly Citizen Of [place]-speaking and poor historian. Majority of history is supplied by chart. Patient has a history of C. diff colitis, hypertension, dementia, carotid artery disease, diabetes mellitus type 2, diabetic neuropathy, chronic kidney disease, hyperlipidemia. Patient apparently was brought into the hospital secondary to generalized weakness and fatigue. She had been on outpatient Cipro for UTI and then started noticing diarrhea. She is found to have C. diff colitis and is being treated for sepsis. She also was found to have acute blood loss anemia and underwent upper endoscopy which demonstrated large one cm duodenal ulcer. She did receive 1 unit packed red blood cells yesterday. Per nursing she is still having significant diarrhea. Echocardiogram was performed 10/17/2020 which shows normal ejection fraction 55- 60%, mild mitral regurgitation, mild tricuspid regurgitation, small pericardial effusion. Blood work shows white blood cell count 16.9, hemoglobin 8.2, platelets 441, s odium 139, bicarb 16, BUN 31, creatinine 1.6, albumin 2.3, AST 16, ALP 11, troponin on presentation less than 0.012. EKG shows normal sinus rhythm, left axis deviation, poor R-wave progression, occasional PVCs, nonspecific ST depressions in the lateral leads. Patient has been having persistent sinus tachycardia over the last 9 days predominantly in the 100s to 120. She has been placed on Toprol 200 mg daily and fraction of hemoglobin has improved heart rates into the 80s to 90s. She is normally on Toprol 100 mg daily at home. REVIEW OF SYSTEMS At the time of my exam: Patient not responding to questions and review of systems Limited. She denies any chest pain, pressure, shortness breath. PHYSICAL EXAMINATION Vital signs reviewed. CONSTITUTIONAL: No apparent distress. HEENT: Head is normocephalic. Pupils are equal, round. Sclerae anicteric. Mucous membranes of the mouth are moist. No JVD. No carotid bruit. CHEST EXAMINATION: Lungs are clear to auscultation. No chest wall tenderness is noted on palpation or with deep breathing. HEART EXAMINATION: Regular rate and rhythm. S1, S2 heard. No murmurs, gallops or rub. ABDOMEN: Soft, nontender. Positive bowel sounds. EXTREMITIES: 2+ peripheral pulses, no lower extremity edema and no calf tenderness. NEUROLOGIC EXAMINATION: Patient is awake, alert and oriented x3. ASSESSMENT 1. Sinus tachycardia 2. Diabetes mellitus type 2 3. Carotid artery disease 4. Dementia 5. Hypertension 6. Chronic kidney disease 7. Acute GI bleed 8. Sepsis 9. C. diff colitis 10. Metabolic acidosis PLAN Patient's heart rates have somewhat improved with treatment of sepsis, blood loss anemia, supportive care and increased dose of Toprol. Patient does still have significant acidosis and diarrhea. Ins and outs appears somewhat inaccurat e however appears very poor oral intake. Additionally has been having significant stool output and bowel movements. We will attempt some treatment with IV fluids and monitor response. Echocardiogram shows preserved ejection fraction without significant valvular disease. Past Medical History Past Medical History: Coronary Artery Disease (CAD), Diabetes Mellitus, Hyperlipidemia, Hypertension History of Any Multi-Drug Resistant Organisms: None Reported Past Surgical History: Cholecystectomy, Heart Catheterization With Stent, Orthopedic Surgery Additional Past Surgical History / Comment(s): hip surgery, cataract sx, left ankle surgery 2020 Date of Last Stent Placement:: 2000 Past Psychological History: No Psychological Hx Reported Smoking Status: Never smoker Past Alcohol Use History: None Reported Past Drug Use History: None Reported Medications and Allergies Home Medications Medication Instructions Recorded Confirmed Type Clopidogrel [Plavix] 75 mg PO DAILY 09/14/20 10/09/20 History Collagenase [Santyl] 1 applic TOPICAL HS 09/14/20 10/09/20 History Donepezil [Aricept] 5 mg PO DAILY 09/14/20 10/09/20 History Glimepiride [Amaryl] 8 mg PO DAILY 09/14/20 10/09/20 History Latanoprost/Pf [Latanoprost 0.005% 1 drop BOTH EYES HS 09/14/20 10/09/20 History Eye Drop] Metoprolol Succinate (ER) [Toprol 100 mg PO DAILY 09/14/20 10/09/20 History XL] OLANZapine [ZyPREXA] 5 mg PO DAILY 09/14/20 10/09/20 History Pioglitazone [Actos] 30 mg PO DAILY 09/14/20 10/09/20 History Simvastatin [Zocor] 20 mg PO DAILY 09/14/20 10/09/20 History amLODIPine [Norvasc] 5 mg PO DAILY 09/14/20 10/09/20 History cloNIDine HCL [Catapres] 0.1 mg PO BID 09/14/20 10/09/20 History Cholecalciferol [Vitamin D3 (25 25 mcg PO DAILY 10/09/20 10/09/20 History Mcg = 1000 Iu)] Fluconazole [Diflucan] 100 mg PO DAILY 10/09/20 10/09/20 History Allergies Allergy/AdvReac Type Severity Reaction Status Date / Time No Known Allergies Allergy Verified 09/19/20 08:59 Physical Exam Vitals: Vital Signs Temp Pulse Resp BP Pulse Ox 10/18/20 13:32 98.4 F 87 18 124/65 92 L 10/18/20 07:31 98.4 F 115 H 18 139/62 92 L 10/18/20 02:00 99.3 F 99 17 114/66 92 L Intake and Output 10/18/20 10/18/20 10/19/20 14:59 22:59 06:59 Output Total 400 Balance -400 Output: Urine 400 Other: # Bowel Movements 1 Results 10/18/20 07:42 10/18/20 07:42 Cardiac Enzymes 10/18/20 Range/Units 07:42 AST 16 (13-35) U/L CBC 10/18/20 Range/Units 07:42 WBC 16.99 H (4.50-10.00) X 10*3/uL RBC 2.76 L (4.10-5.20) X 10*6/uL Hgb 8.2 L (12.0-15.0) g/dL Hct 26.2 L (37.2-46.3) % Plt Count 441 H (140-440) X 10*3/uL Comprehensive Metabolic Panel 10/18/20 Range/Units 07:42 Sodium 139 (135-145) mmol/L Potassium 3.9 (3.5-5.5) mmol/L Chloride 115 H (96-109) mmol/L Carbon Dioxide 16.0 L (21.6-31.8) mmol/L BUN 31.0 H (9.0-27.0) mg/dL Creatinine 1.6 H (0.6-1.5) mg/dL Glucose 163 H (70-110) mg/dL Calcium 8.1 L (8.7-10.3) mg/dL AST 16 (13-35) U/L ALT 11 (8-44) U/L Alkaline Phosphatase 77 (41-126) U/L Total Protein 4.7 L (6.2-8.2) g/dL Albumin 2.30 L (3.80-4.90) g/dL Current Medications Generic Name Dose Route Start Last Admin Trade Name Freq PRN Reason Stop Dose Admin Acetaminophen 650 mg 10/09/20 12:07 10/18/20 22:34 Acetaminophen Tab 325 Mg Tab PO 650 mg Q6HR PRN Administration Mild Pain or Fever > 100.5 Atorvastatin Calcium 10 mg 10/10/20 09:00 10/18/20 07:24 Atorvastatin 10 Mg Tab PO 10 mg DAILY ANNMARIE Administration Cholecalciferol 25 mcg 10/10/20 09:00 10/18/20 07:24 Cholecalciferol 25 Mcg (1000 Iu) Tablet PO 25 mcg DAILY ANNMARIE Administration Cholestyramine Resin 4 gm 10/14/20 21:00 10/18/20 22:34 Cholestyramine (With Sugar) 4 Gm Packet PO 4 gm BID@1000,2100 ANNMARIE Administration Collagenase 1 applic 10/10/20 10:45 10/18/20 15:55 Collagenase 250 Unit/Gm Ointment 30 Gm Tube TOPICAL 1 applic DAILY ANNMARIE Administration Protocol Donepezil HCl 5 mg 10/10/20 09:00 10/18/20 07:25 Donepezil 5 Mg Tab PO 5 mg DAILY ANNMARIE Administration Heparin Sodium (Porcine) 5,000 unit 10/09/20 21:00 10/18/20 22:35 Heparin Sodium,Porcine/Pf 5,000 Unit/0.5 Ml Syringe SQ 5,000 unit Q12HR ANNMARIE Administration Cefepime HCl 1 gm/ Sodium 50 mls @ 12.5 mls/hr 10/17/20 18:00 10/18/20 17:06 Chloride IVPB 12.5 mls/hr Q12H ANNMARIE Administration Insulin Aspart 0 unit 10/10/20 22:30 10/18/20 22:35 Insulin Aspart (Novolog) 100 Unit/Ml Vial SQ 1 unit ACHS ANNMARIE Administration Protocol Insulin Aspart 2 unit 10/12/20 17:30 10/18/20 17:07 Insulin Aspart (Novolog) 100 Unit/Ml Vial SQ 2 unit AC-TID ANNMARIE Administration Latanoprost 1 drops 10/09/20 21:00 10/18/20 22:35 Latanoprost 0.005% Ophth Drops 2.5 Ml Btl BOTH EYES 1 drops HS ANNMARIE Administration Metoprolol Succinate 200 mg 10/16/20 09:00 10/18/20 07:25 Metoprolol Succinate (Er) 100 Mg Tab.Er.24h PO 200 mg DAILY ANNMARIE Administration Metronidazole 500 mg 10/16/20 16:00 10/18/20 22:35 Metronidazole 500 Mg Tab PO 500 mg TID ANNMARIE Administration Naloxone HCl 0.2 mg 10/09/20 12:07 Naloxone 0.4 Mg/Ml 1 Ml Vial IV Q2M PRN Opioid Reversal Olanzapine 5 mg 10/10/20 09:00 10/18/20 07:25 Olanzapine 5 Mg Tab PO 5 mg DAILY ANNMARIE Administration Ondansetron HCl 4 mg 10/09/20 20:33 10/09/20 21:27 Ondansetron 4 Mg/2 Ml Vial IVP 4 mg Q6HR PRN Administration Nausea And Vomiting Pantoprazole Sodium 40 mg 10/13/20 09:00 10/18/20 15:55 Pantoprazole 40 Mg Tablet PO 40 mg AC-BID ANNMARIE Administration Sucralfate 1 gm 10/13/20 12:30 10/18/20 15:55 Sucralfate 1 Gm Tab PO 1 gm AC-TID ANNMARIE Administration Intake and Output 10/18/20 10/18/20 10/19/20 14:59 22:59 06:59 Output Total 400 Balance -400 Output: Urine 400 Other: # Bowel Movements 1 10/18/20 07:42 10/18/20 07:42
[2020-10-18] MEDS ORDERED: SODIUM CHLORIDE 0.9% 1,000 ML IV SCH (23:15)
[2020-10-19 03:34] LABS: Glucose,Whole Blood 197 mg/dL (75-99)
[2020-10-19] MEDS: CEFEPIME 1 GM in SODIUM CHLORIDE 0.9% 50 ML IVPB SCH ×2 (06:25→16:52)
[2020-10-19 06:49] LABS: Glucose,Whole Blood 228 mg/dL (75-99)
[2020-10-19] MEDS: ATORVASTATIN 10 MG TAB PO SCH (07:51)
[2020-10-19] MEDS: metroNIDAZOLE 500 MG TAB PO SCH ×3 (07:51→21:19)
[2020-10-19] MEDS: SUCRALFATE 1 GM TAB PO SCH ×3 (07:51→16:52)
[2020-10-19] MEDS: PANTOPRAZOLE 40 MG TABLET PO SCH ×2 (07:51→16:52)
[2020-10-19] MEDS: INSULIN ASPART (NovoLOG) 100 UNIT/ML VIAL SQ SCH ×7 (07:51→21:20)
[2020-10-19] MEDS: CHOLECALCIFEROL 25 MCG (1000 IU) TABLET PO SCH (07:51)
[2020-10-19] MEDS: DONEPEZIL 5 MG TAB PO SCH (07:51)
[2020-10-19] MEDS: METOPROLOL SUCCINATE (ER) 100 MG TAB.ER.24H PO SCH (07:52)
[2020-10-19] MEDS: OLANZapine 5 MG TAB PO SCH (07:52)
[2020-10-19] MEDS: HEPARIN SODIUM,PORCINE/PF 5,000 UNIT/0.5 ML SYRINGE SQ SCH ×2 (07:52→21:19)
--- NOTE | 2020-10-19 09:24 | P.PN ---
Subjective Patient is a pleasant 75-year-old female came in with complains of diarrhea high-grade fevers generalized weakness and tiredness. Patient recently completed antibiotic therapy with ciprofloxacin about a week ago she was treated for urinary tract infection patient presented with urinary retention during her last hospitalization. Patient does have a language barrier which is Malaysian. Able to get good history because daughter was present at the bedside. Patient was also significantly hypoglycemic patient is on Actos as well as a sulfonylurea for diabetes management. Her last hemoglobin A1c was from September 21 which was 6.3 patient appears to have chronic kidney disease with baseline creatinine of around 1.4 present creatinine is 1.68. Patient does have metabolic acidosis, which appears to be mostly nonambulatory gap. Chest x-ray did not show any significant abnormality, a year is mildly abnormal but no symptoms of a urinary tract infection, no evidence of UTI 10/10/2020 patient is examined at the bedside, RN was present with tiger machine operator machine. I was able was able to communicate with patient . Patient states that she is not having any abdominal pain, she denies any chest pain cough shortness of breath. Patient states that she is just tired. Patient was an Ateam at 2 AM due to a loss of IV access. Patient at that time was infusing D10 at 1 25 mL per hour. Patient's blood sugar was found to be 22. Patient had Accu-Cheks completed every hour and IV access was established. Patient's blood sugars that have been in the high 200s. Patient had a midline placed this afternoon after losing a second IV. Patient's blood sugar can be checked [id number]. Patient will be transitioned off of the D10 drip to 0.9ns at 75 mL per hour. Patient was found to have a positive culture for C. diff this admission and has been started on oral vancomycin. 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 Patient does have a history of chronic kidney disease stage III with a baseline creatinine of 1.4. Patient has poor oral intake, will be started on oral supplementation, constipation with nutritional services. Oral hypoglycemic agents will be on hold. Patient may resume sliding scale for hyperglycemia. Monitor closely for symptoms of hypoglycemia. Patient's hemoglobin has dropped to 7.8 from 9.2. Will recheck hemoglobin at 11 PM as well as in the morning. Continue to monitor for signs of bleeding. Reports patient still having diarrhea. Patient's white blood cell count is stable at 11.5. Continue oral antibiotics. Vital signs are currently stable. 10/11/2020 Patient is examined at the bedside, EKG being performed. Patient denies any abdominal pain, denies cramping, denies nausea vomiting. Patient reports diarrhea. Per RN there are no signs of active bleed. Patient's heart rate was elevated this morning at 150, EKG obtained revealed normal rhythm, sinus tachycardia, lactic acid obtained, 0.8, fluids were increased to 100cc/hr. Patient's heart rate had improved down to 110 status post metoprolol. Patient continues on by mouth Vanco for a C. diff infection. Patient's hemoglobin today is 7.7, general surgery consultation to rule out an acute GI bleed. Patient reports no issues with urination. Patient's Coumadin and creatinine continue to be elevated. Continue to monitor. Patient's blood sugar current level 399, continue with NovoLog signs were insulin and consistent carb diet. Continue to monitor blood sugars. Encourage ambulation as tolerated. Urine culture finalized for Renato glabrata. Nonhealing wound to the patient's left ankle finalized for gram-negative bacilli final cultures and sensitivity pending. Repeat chest x-ray today, was negative for any acute process. Patient continues to have temperature, T-max 100.6. Continue with local wound care with Santyl. Patient is primarily Malaysian-speaking, historic interpreter available. 10/12/2020 Patient is examined today at bedside, patient is awake alert and oriented 3. Patient continues to have loose bowel movements. Per RN patient had to be straight cathed times one for urinary retention, repeat UA and culture has been ordered. Patient's ankle culture has been finalized, growing pseudomonas, antibiotic recommendations per infectious disease. Patient continues to have temperatures, T-max 100.7 in the last 24 hours, heart rate 118, blood pressure 126/57, patient is 96% on room air. Patient can of oral Tylenol as needed. Continue with IV fluids 0.9 at 125 continue to monitor for signs of sepsis. Repeat lactic acid drawn yesterday was a level of 0.08. Patient will continue on PO Vanco for C. diff colitis, recommendations per ID. Patient denies any chest pain, cough, shortness of breath. Patient states that her abdomen feels so-so. Patient is primarily Malaysian-speaking. Patient's lab work today revealed a hemoglobin that is now stable at 8.8. White blood cell count is s table at 10.78. Patient's BUN and creatinine are essentially unchanged. Patient is hyperglycemic, continue with NovoLog sliding scale. Continue to encourage oral intake. Patient can continue with local wound care per wound care services. Patient was following the wound care center. 10/13/2020 Patient has an indwelling catheter placed from nursing services, for urinary retention. A UA and culture was sent, infectious disease have added oral voriconazole for a positive UTI. Patient continues on by mouth Vanco for C. diff colitis. Patient was evaluated by surgical services, who performed an EGD this morning, findings consistent with large 1 cm duodenal ulcer, second portion recent bleed, multiple punctate duodenal ulcers with duodenitis, gastritis, diaphragmatic hiatal hernia. There have been no signs of blood in the stool, dark stool per nursing services. Patient is continuing with loose brown stools. In addition patient's left ankle wound has grown Pseudomonas, no further an tibiotic recommendations from ID. Patient continues to have temps, T-max 100.4 in the last 24 hours. Patient's blood pressure this morning 170/70, heart rate 114. Continue with IV fluids 0.9 at 125, recheck blood pressure. Blood sugars continue to be elevated intermittently, continue with sliding scale coverage as needed, with scheduled insulin. Hemoglobin stable today at 8.8. Patient's Plav ix has been discontinued. Patient wasn't started on Carafate and Protonix for GI prophylaxis. Today patient denies chest pain, reports her stomach feels so- so. Patient is primarily Malaysian-speaking, historic interpreter available when needed. Will consult PT/OT, increase activity level as tolerated. 10/14/2020 patient is evaluated sitting up in the chair today. patient states that her belly feels so/so. She is still having diarrhea, loose per RN. Patient continues on oral vanco and was started on questran via ID services. Patient continues with IDC for urinary retention, has been started on oral vfen for positive renato urine culture. Patient was evaluated by PT today, who recommends 24/7 post discharge with either homecare services or [facility]. Patient continues to be febrile, t-max 99.7 in the last 24 hours, which is slowly improving. Patients HR is 120 sinus tachycardia, she was started on toprol XL 100 mg po daily, without improvement. She was increased to 150 mg PO Daily. Pt continues on IV fluids. She has a fair appetite. Continue to encourage ambulation. 10/15/2020 Patient is sitting up in the bed today, is working with PT OT and has gone up in the chair yesterday. Patient states her belly still feels so-so, she still having diarrhea, was started on Questran yesterday in addition to by mouth Vanco. Patient continues with IDC for urinary retention, has been started on oral Vfend for a positive renato urine culture. Patient continues to be febrile, T-max 100 in the last 24 hours. This is a improvement. Patient was started on Toprol for sinus tachycardia, improving, her weight today is 15. Patient denies any chest pain, cough. Blood pressure today is 156/71, 96% on room air. Patient's white count continues to trend down slowly, 15.1 today. Continue to monitor blood sugars closely. The plan on discharge once medically stable is to return home with daughter on discharge with [facility]. 10/16/2020 Patient is evaluated she is resting in the bed. Patient states that her belly is still causing her some discomfort. She states that she does get upset st omach after eating. Per RN patient has 2 bowel movements throughout the night both were loose. Patient continues on Questran, by mouth Vanco. Patient has IDC for urinary retention. She is on oral Vfend for positive renato urine culture. Patient needs to remain febrile in the last 24 hours is 100.7, patient is still sinus tachycardia, heart rate 130s this morning. Blood pressure 103/60, 93% on room air. Repeat EKG demonstrated sinus tachycardia. Patient has an echocardiogram pending, increased metoprolol 200 mg by mouth daily yesterday. Patient had IV fluids ordered at 0.9 at 125. Patient will have a repeat chest x-ray today to follow up with the abdominal pelvis CT that demonstrated possible chronic congestive heart failure. We will repeat a chem panel, blood count, magnesium, lactic acid today. Infectious disease at the bedside and discussed findings. Patient's hemoglobin yesterday was 7.5, no signs of an acute bleed, will repeat. Patient denies any chest pain, chest dis comfort. She does state that she is weak and has a poor appetite. 10/17/2020 Patient is evaluated in the bed. She hasn't worked with PT and OT. Today patient's hemoglobin came back at 6.3. Patient has received 2 doses of IV iron via surgical services. Patient will receive 1 unit of PRBCs today. Patient's white blood cell count today is 18.9 which is improved from yesterday at 21. Patient for complaints of some abdominal discomfort, nausea, diarrhea. Per RN, patient had liquid bowel movements every 2 hours last night. Patient continues on questran and hasn't changed to by mouth Flagyl. Patient isn't potassium carefully for GI prophylaxis. Patient has been placed on a consistent carb diet, however patient does not have much of an appetite. Echocardiogram revealed an ejection fraction of 55-60%, mild tricuspid regurg, small pericardial effusion located new left ventricle. Patient remains in sinus tachycardia, heart rate between 118-107. Request a cardiology consultation topham nova in lieu of elevated heart rate, patient is continued on metoprolol XL 200 mg daily. Fluids have been discontinued due to the sensory findings which could correlate for mild CHF. Patient BNP yesterday was 12,000, 100 and a dose of IV Lasix was given. Patient's creatinine today is now 1.41. Will recheck in the morning. IV cefepime has been added from infectious disease services. 10/18/2020 Patient's repeat labs are still pending. Patient does look pale. Patient had one episode of diarrhea. Patient remains tachycardic patient blood pressures are low normal at this can you amlodipine that will help with the improvement of blood pressure as well as tachycardia. Patient remains on cefepime and metronidazole. 10/19/2020 Patient's diarrhea is getting better patient had 1 episode of diarrhea last night. Patient creatinine did go up to 1.6 and patient was started on IV fluids appropriately. Patient the saturations are 92% will closely monitor for any volume overload. Nephrology will be consulted for acute renal failure. Patient's white blood cell count trended down. ROS: Constitutional: Denied any fatigue denied any fever. Cardio vascular: denied any chest pain, palpitations Gastrointestinal denied any nausea vomiting, reports diarrhea. Reports decreased appetite Pulmonary: Denied any shortness of breath cough Neurologic denied any new focal deficits All inpatient medications were reviewed and appropriate changes in these medications as dictated in the interval history and assessment and plan. PHYSICAL EXAMINATION: GENERAL: The patient is alert and oriented x3, not in any acute distress. Well developed, well nourished. HEENT: Pupils are round and equally reacting to light. EOMI. No scleral icterus. No conjunctival pallor. Normocephalic, atraumatic. No pharyngeal erythema. No thyromegaly. CARDIOVASCULAR: S1 and S2 present. No murmurs, rubs, or gallops. PULMONARY: Chest is clear to auscultation, no wheezing or crackles. ABDOMEN: Soft, nontender, nondistended, hyperactive bowel sounds. MUSCULOSKELETAL: No joint swelling or deformity. EXTREMITIES: No cyanosis, clubbing, or pedal edema. NEUROLOGICAL: Gross neurological examination did not reveal any focal deficits. SKIN: Nonhealing wound on buttock and left ankle/heel, Assessment and plan -Sepsis secondary to C. diff colitis is being treated for pseudomonal UTI as well: Patient's heart rate is better at this time 1 episode of diarrhea -C diff Colitis - Questran, changed to PO Flagyl -Acute renal failure: Patient was started on IV fluids secondary to diarrhea nephrology was consulted. -Severe hypoglycemia, improved now -Carotid artery disease continue on current cardiac medications -Hypertension patient was resumed on beta milli is continued Norvasc -diabetes mellitus type 2, With hyperglycemia. Patient is on sliding scale, scheduled NovoLog continue to hold oral agents due to risk for hypoglycemia. -Diabetic nephropathy chronic kidney disease stage III baseline creatinine of around 1.4, Anemia secondary to an acute bleeding duodenal ulcer, gastritis - EGD performed holding Plavix for 7 days, can resume on 10/20/20. Hemoglobin today is 6.3, patient has received 2 doses of IV iron, unit of PRBC transfusion to recheck the is pending Leukocytosis, related to C. diff colitis infection with sepsis, left ankle pseu domonas - by mouth Flagyl and IV cefepime added today VID. Continue with by mouth Vanco. Wound cultures positive for Pseudomonas. White blood cell count today 18.9 Diabetes mellitus type 2, with hyperglycemia, with nonhealing ulcers plan as above Nonhealing pressure ulcer, patient is following with wound care, continue with current wound care recommendations. Positive pseudomonas, IV antibiotics Renato glabrata UTI, treated with Vfend, unrelated to indwelling catheter. -Sinus tachycardia, increased dose of Toprol, patient on telemetry, appreciate cardiology consultation. Acute mild CHF, EF 55-60%. May be diastolic dysfunction BNP 12,100. -DVT prophylaxis, ambulation as tolerated, subcu heparin, GI prophylaxis Protonix, Carafate Objective - Vital Signs Vital signs: Vital Signs Temp 98.8 F 10/19/20 07:48 Pulse 90 10/19/20 07:48 Resp 16 10/19/20 07:48 BP 135/62 10/19/20 07:48 Pulse Ox 92 L 10/19/20 07:48 Intake & Output 10/18/20 10/19/20 10/19/20 18:59 06:59 18:59 Output Total 400 901 Balance -400 -901 Output: Urine 400 900 Stool 1 Other: Voiding Method Indwelling Catheter Indwelling Catheter # Bowel Movements 1 - Labs CBC & Chem 7: 10/18/20 07:42 10/18/20 07:42 Labs: Abnormal Lab Results - Last 24 Hours (Table) 10/18/20 10/18/20 10/18/20 Range/Units 07:42 07:42 11:26 WBC 16.99 H (4.50-10.00) X 10*3/uL RBC 2.76 L (4.10-5.20) X 10*6/uL Hgb 8.2 L (12.0-15.0) g/dL Hct 26.2 L (37.2-46.3) % MCHC 31.3 L (32.0-37.0) g/dL RDW 16.4 H (11.5-14.5) % Plt Count 441 H (140-440) X 10*3/uL MPV 9.2 L (9.5-12.2) fL Chloride 115 H (96-109) mmol/L Carbon Dioxide 16.0 L (21.6-31.8) mmol/L BUN 31.0 H (9.0-27.0) mg/dL Creatinine 1.6 H (0.6-1.5) mg/dL Est GFR (CKD-EPI)AfAm 36.4 L (60.0-200.0) Est GFR (CKD-EPI)NonAf 31.4 L (60.0-200.0) Glucose 163 H (70-110) mg/dL POC Glucose (mg/dL) 165 H (75-99) mg/dL Calcium 8.1 L (8.7-10.3) mg/dL Total Protein 4.7 L (6.2-8.2) g/dL Albumin 2.30 L (3.80-4.90) g/dL Albumin/Globulin Ratio 0.96 L (1.60-3.17) g/dL 10/18/20 10/18/20 10/19/20 Range/Units 16:53 20:30 03:32 WBC (4.50-10.00) X 10*3/uL RBC (4.10-5.20) X 10*6/uL Hgb (12.0-15.0) g/dL Hct (37.2-46.3) % MCHC (32.0-37.0) g/dL RDW (11.5-14.5) % Plt Count (140-440) X 10*3/uL MPV (9.5-12.2) fL Chloride (96-109) mmol/L Carbon Dioxide (21.6-31.8) mmol/L BUN (9.0-27.0) mg/dL Creatinine (0.6-1.5) mg/dL Est GFR (CKD-EPI)AfAm (60.0-200.0) Est GFR (CKD-EPI)NonAf (60.0-200.0) Glucose (70-110) mg/dL POC Glucose (mg/dL) 220 H 167 H 197 H (75-99) mg/dL Calcium (8.7-10.3) mg/dL Total Protein (6.2-8.2) g/dL Albumin (3.80-4.90) g/dL Albumin/Globulin Ratio (1.60-3.17) g/dL 10/19/20 Range/Units 06:48 WBC (4.50-10.00) X 10*3/uL RBC (4.10-5.20) X 10*6/uL Hgb (12.0-15.0) g/dL Hct (37.2-46.3) % MCHC (32.0-37.0) g/dL RDW (11.5-14.5) % Plt Count (140-440) X 10*3/uL MPV (9.5-12.2) fL Chloride (96-109) mmol/L Carbon Dioxide (21.6-31.8) mmol/L BUN (9.0-27.0) mg/dL Creatinine (0.6-1.5) mg/dL Est GFR (CKD-EPI)AfAm (60.0-200.0) Est GFR (CKD-EPI)NonAf (60.0-200.0) Glucose (70-110) mg/dL POC Glucose (mg/dL) 228 H (75-99) mg/dL Calcium (8.7-10.3) mg/dL Total Protein (6.2-8.2) g/dL Albumin (3.80-4.90) g/dL Albumin/Globulin Ratio (1.60-3.17) g/dL
--- NOTE | 2020-10-19 09:42 | XR ---
EXAMINATION TYPE: XR chest 1V DATE OF EXAM: 10/19/2020 COMPARISON: 10/16/2020 HISTORY: 75 years Female. STUDY INDICATION GIVEN: CHF . TECHNIQUE: AP upright portable chest radiograph FINDINGS AND IMPRESSION: Increased retrocardiac opacity may be on the basis of left lower lobe subsegmental atelectasis second gabriel to pleural effusion, underlying pneumonic infiltrate cannot be excluded. Small to moderate size left pleural effusion slightly increased compared to prior Mild prominence of the interstitium suggests mild pulmonary edema, slightly increased compared to trudy or Stable cardiomegaly. Vascular calcifications project over the intrathoracic aorta. Generalized osteopenia without acute osseous abnormality.
--- NOTE | 2020-10-19 09:51 | P.NPCON ---
History of Present Illness - Reason for Consult acute renal failure, chronic renal failure - History of Present Illness Reason for consultation: Acute kidney injury History of present illness: Patient is a 75-year-old female seen in renal consultation for acute kidney injury. Patient's creatinine in September 2020 was as low as 1.49 and this admission it's been lowest at 1.2. It was up to 1.6 yesterday. Patient is not a very reliable historian and is also language.. She is currently on antibiotics for C. diff as well as wound on her ankle. She's been having loose bowel movements according to the nurse. Oral intake is poor. She has a Mack catheter and is nonoliguric. She does have long-standing history of diabetes mellitus. She denies chest pain or shortness of breath. No edema. She was noted to be anemic with hemoglobin of 6.3 and did receive blood trans-fusion. Hemoglobin was 8.2 as of yesterday. She also became tachycardic this admission and is being followed by cardiology. She is maintained on Toprol. Not on any diuretics or nonsteroidals. She was started on IV fluids yesterday. Labs from today are pending. Vital signs are stable. General: The patient appeared well nourished and normally developed. HEENT: Head exam is unremarkable. Neck is without jugular venous distension. LUNGS: Breath sounds decreased. HEART: Rate and Rhythm are regular. ABDOMEN: Soft, no distention. EXTREMITITES: No edema. Past Medical History Past Medical History: Coronary Artery Disease (CAD), Diabetes Mellitus, Hyperlipidemia, Hypertension History of Any Multi-Drug Resistant Organisms: None Reported Past Surgical History: Cholecystectomy, Heart Catheterization With Stent, Orthopedic Surgery Additional Past Surgical History / Comment(s): hip surgery, cataract sx, left ankle surgery 2020 Date of Last Stent Placement:: 2000 Past Psychological History: No Psychological Hx Reported Smoking Status: Never smoker Past Alcohol Use History: None Reported Past Drug Use History: None Reported Medications and Allergies Home Medications Medication Instructions Recorded Confirmed Type Clopidogrel [Plavix] 75 mg PO DAILY 09/14/20 10/09/20 History Collagenase [Santyl] 1 applic TOPICAL HS 09/14/20 10/09/20 History Donepezil [Aricept] 5 mg PO DAILY 09/14/20 10/09/20 History Glimepiride [Amaryl] 8 mg PO DAILY 09/14/20 10/09/20 History Latanoprost/Pf [Latanoprost 0.005% 1 drop BOTH EYES HS 09/14/20 10/09/20 History Eye Drop] Metoprolol Succinate (ER) [Toprol 100 mg PO DAILY 09/14/20 10/09/20 History XL] OLANZapine [ZyPREXA] 5 mg PO DAILY 09/14/20 10/09/20 History Pioglitazone [Actos] 30 mg PO DAILY 09/14/20 10/09/20 History Simvastatin [Zocor] 20 mg PO DAILY 09/14/20 10/09/20 History amLODIPine [Norvasc] 5 mg PO DAILY 09/14/20 10/09/20 History cloNIDine HCL [Catapres] 0.1 mg PO BID 09/14/20 10/09/20 History Cholecalciferol [Vitamin D3 (25 25 mcg PO DAILY 10/09/20 10/09/20 History Mcg = 1000 Iu)] Fluconazole [Diflucan] 100 mg PO DAILY 10/09/20 10/09/20 History Allergies Allergy/AdvReac Type Severity Reaction Status Date / Time No Known Allergies Allergy Verified 09/19/20 08:59 Physical Exam Vitals: Vital Signs Temp Pulse Resp BP BP Pulse Ox 10/19/20 07:48 98.8 F 90 16 135/62 92 L 10/19/20 03:28 98.6 F 100 19 130/63 92 L 10/18/20 20:23 99.6 F 99 16 117/68 92 L 10/18/20 20:00 100 19 10/18/20 13:32 98.4 F 87 18 124/65 92 L Intake and Output 10/18/20 10/19/20 10/19/20 22:59 06:59 14:59 Output Total 401 900 Balance -401 -900 Output: Urine 400 900 Stool 1 Other: Voiding Method Indwelling Catheter Indwelling Catheter # Bowel Movements 1 Results - Lab Results Most recent lab results Calcium 8.1 mg/dL (8.7-10.3) L 10/18/20 07:42 Magnesium 1.9 mg/dL (1.6-2.3) 10/16/20 10:41 10/18/20 07:42 10/18/20 07:42 Assessment and Plan Plan: Assessment: 1. Acute kidney injury secondary to ATN secondary to anemia and diarrhea. Creatinine 1.6 as of yesterday. Creatinine is low as 1.2 this admission. Unknown baseline. No hydronephrosis noted on CAT scan. UA with trace protein. 2. C. diff colitis maintained on antibiotics per infectious disease. 3. Metabolic acidosis secondary to GI losses. 4. Acute blood loss anemia status post transfusion this admission. 5. Ankle wound with culture positive for Pseudomonas on antibiotics. 6. Diabetes mellitus. 7. Chronic kidney disease stage IIIB. Creatinine as low as 1.2 this admission. Etiology is nephrosclerosis and diabetic kidney disease. Plan: Stop normal saline. Start bicarb drip to be run at 80 mL an hour. Add Aranesp. Encouraged oral intake. Avoid nephrotoxins. Continue to monitor renal function and urine output. Check renal ultrasound. Thank you for the consultation. I will continue to follow the patient with you during her hospital stay.
[2020-10-19] MEDS ORDERED: DARBEPOETIN ALFA 40 MCG/0.4 ML SYRINGE SQ SCH (10:00)
[2020-10-19 11:04] LABS: HCT 27.1 % (37.2-46.3); HGB 8.3 g/dL (12.0-15.0); MCH 29.2 pg (27.0-32.0); MCHC 30.6 g/dL (32.0-37.0); MCV 95.4 fL (80.0-97.0); Mean Platelet Volume 9.1 fL (9.5-12.2); Platelet Count 485 X 10*3/uL (140-440); RBC 2.84 X 10*6/uL (4.10-5.20); RDW 16.4 % (11.5-14.5); WBC 14.05 X 10*3/uL (4.50-10.00)
[2020-10-19] MEDS: DEXTROSE 5% IN WATER 1,000 ML with SODIUM BICARB (1 MEQ/ML) 150 ML IV SCH ×2 (11:31→11:32)
[2020-10-19 11:39] LABS: African American GFR (CKD) 36.4 (60.0-200.0); Anion Gap 6.2 mmol/L (4.00-12.00); BUN/Creat Ratio 22.5 Ratio (12.00-20.00); Carbon Dioxide 16.8 mmol/L (21.6-31.8); Non-African American GFR(CKD) 31.4 (60.0-200.0); Potassium 4.2 mmol/L (3.5-5.5)
[2020-10-19 11:52] LABS: Glucose,Whole Blood 177 mg/dL (75-99)
[2020-10-19] MEDS: CHOLESTYRAMINE (WITH SUGAR) 4 GM PACKET PO SCH ×2 (12:15→21:19)
--- NOTE | 2020-10-19 15:11 | P.PN ---
Subjective HISTORY OF PRESENTING ILLNESS Patient is a pleasant 75-year-old female who is predominantly American-speaking and poor historian. Majority of history is supplied by chart. Patient has a history of C. diff colitis, hypertension, dementia, carotid artery disease, diabetes mellitus type 2, diabetic neuropathy, chronic kidney disease, hyperlipidemia. Patient apparently was brought into the hospital secondary to generalized weakness and fatigue. She had been on outpatient Cipro for UTI and then started noticing diarrhea. She is found to have C. diff colitis and is being treated for sepsis. She also was found to have acute blood loss anemia and underwent upper endoscopy which demonstrated large one cm duodenal ulcer. She did receive 1 unit packed red blood cells yesterday. Per nursing she is still having significant diarrhea. Echocardiogram was performed 10/17/2020 which shows normal ejection fraction 55- 60%, mild mitral regurgitation, mild tricuspid regurgitation, small pericardial effusion. Blood work shows white blood cell count 16.9, hemoglobin 8.2, platelets 441, sodium 139, bicarb 16, BUN 31, creatinine 1.6, albumin 2.3, AST 16, ALP 11, troponin on presentation less than 0.012. EKG shows normal sinus rhythm, left axis deviation, poor R-wave progression, occasional PVCs, nonspecific ST depressions in the lateral leads. Patient has been having persistent sinus tachycardia over the last 9 days predominantly in the 100s to 120. She has been placed on Toprol 200 mg daily and fraction of hemoglobin has improved heart rates into the 80s to 90s. She is normally on Toprol 100 mg daily at home. 10/19 Patient seen and examined. Patient's daughter able to translate more and patient unable to respond more. She has been having some episodes of chest tightness which daughter is unsure if is related to her positioning in bed however has been fairly constant over the last few days. She admits to a history of prior angioplasty approximately 20 years ago. Daughter states that since her ankle fracture she has not been that active however routinely does not complain much of any shortness breath or chest pain. REVIEW OF SYSTEMS At the time of my exam: Patient not responding to questions and review of systems Limited. She denies any chest pain, pressure, shortness breath. PHYSICAL EXAMINATION Vital signs reviewed. CONSTITUTIONAL: No apparent distress. HEENT: Head is normocephalic. Pupils are equal, round. Sclerae anicteric. Mucous membranes of the mouth are moist. No JVD. No carotid bruit. CHEST EXAMINATION: Lungs are clear to auscultation. No chest wall tenderness is noted on palpation or with deep breathing. HEART EXAMINATION: Regular rate and rhythm. S1, S2 heard. No murmurs, gallops or rub. ABDOMEN: Soft, nontender. Positive bowel sounds. EXTREMITIES: 2+ peripheral pulses, no lower extremity edema and no calf tenderness. NEUROLOGIC EXAMINATION: Patient is awake, alert and oriented x3. ASSESSMENT 1. Sinus tachycardia 2. Diabetes mellitus type 2 3. Carotid artery disease 4. Dementia 5. Hypertension 6. Chronic kidney disease 7. Acute GI bleed 8. Sepsis 9. C. diff colitis 10. Metabolic acidosis 11. Precordial chest pain 12. History of CAD with prior PCI in 1999 per daughter PLAN Patient's heart rates have somewhat improved with treatment of sepsis, blood loss anemia, supportive care and increased dose of Toprol. Echocardiogram shows preserved ejection fraction without significant valvular disease. Check troponin for completeness however chest pain appears somewhat atypical Unclear that patient would be a good interventional candidate with anemia. Further recommendations to follow. Objective - Vital Signs Vital signs: Vital Signs Temp 98.9 F 10/19/20 14:53 Pulse 100 10/19/20 14:53 Resp 17 10/19/20 14:53 BP 139/78 10/19/20 14:53 Pulse Ox 92 L 10/19/20 14:53 Intake & Output 10/18/20 10/19/20 10/19/20 18:59 06:59 18:59 Output Total 400 901 Balance -400 -901 Output: Urine 400 900 Stool 1 Other: Voiding Method Indwelling Catheter Indwelling Catheter # Bowel Movements 1 1 - Labs CBC & Chem 7: 10/19/20 06:12 10/19/20 06:12 Labs: Abnormal Lab Results - Last 24 Hours (Table) 10/18/20 10/18/20 10/19/20 Range/Units 16:53 20:30 03:32 WBC (4.50-10.00) X 10*3/uL RBC (4.10-5.20) X 10*6/uL Hgb (12.0-15.0) g/dL Hct (37.2-46.3) % MCHC (32.0-37.0) g/dL RDW (11.5-14.5) % Plt Count (140-440) X 10*3/uL MPV (9.5-12.2) fL Chloride (96-109) mmol/L Carbon Dioxide (21.6-31.8) mmol/L BUN (9.0-27.0) mg/dL Creatinine (0.6-1.5) mg/dL Est GFR (CKD-EPI)AfAm (60.0-200.0) Est GFR (CKD-EPI)NonAf (60.0-200.0) BUN/Creatinine Ratio (12.00-20.00) Ratio Glucose (70-110) mg/dL POC Glucose (mg/dL) 220 H 167 H 197 H (75-99) mg/dL Calcium (8.7-10.3) mg/dL 10/19/20 10/19/20 10/19/20 Range/Units 06:12 06:12 06:48 WBC 14.05 H (4.50-10.00) X 10*3/uL RBC 2.84 L (4.10-5.20) X 10*6/uL Hgb 8.3 L (12.0-15.0) g/dL Hct 27.1 L (37.2-46.3) % MCHC 30.6 L (32.0-37.0) g/dL RDW 16.4 H (11.5-14.5) % Plt Count 485 H (140-440) X 10*3/uL MPV 9.1 L (9.5-12.2) fL Chloride 116 H (96-109) mmol/L Carbon Dioxide 16.8 L (21.6-31.8) mmol/L BUN 36.0 H (9.0-27.0) mg/dL Creatinine 1.6 H (0.6-1.5) mg/dL Est GFR (CKD-EPI)AfAm 36.4 L (60.0-200.0) Est GFR (CKD-EPI)NonAf 31.4 L (60.0-200.0) BUN/Creatinine Ratio 22.50 H (12.00-20.00) Ratio Glucose 191 H (70-110) mg/dL POC Glucose (mg/dL) 228 H (75-99) mg/dL Calcium 8.0 L (8.7-10.3) mg/dL 10/19/20 Range/Units 11:50 WBC (4.50-10.00) X 10*3/uL RBC (4.10-5.20) X 10*6/uL Hgb (12.0-15.0) g/dL Hct (37.2-46.3) % MCHC (32.0-37.0) g/dL RDW (11.5-14.5) % Plt Count (140-440) X 10*3/uL MPV (9.5-12.2) fL Chloride (96-109) mmol/L Carbon Dioxide (21.6-31.8) mmol/L BUN (9.0-27.0) mg/dL Creatinine (0.6-1.5) mg/dL Est GFR (CKD-EPI)AfAm (60.0-200.0) Est GFR (CKD-EPI)NonAf (60.0-200.0) BUN/Creatinine Ratio (12.00-20.00) Ratio Glucose (70-110) mg/dL POC Glucose (mg/dL) 177 H (75-99) mg/dL Calcium (8.7-10.3) mg/dL
[2020-10-19 16:42] LABS: Glucose,Whole Blood 268 mg/dL (75-99)
[2020-10-19] MEDS: COLLAGENASE 250 UNIT/GM OINTMENT 30 GM TUBE TOPICAL SCH (16:53)
--- NOTE | 2020-10-19 17:12 | US ---
EXAMINATION TYPE: US kidneys/renal and bladder DATE OF EXAM: 10/19/2020 COMPARISON: CT CLINICAL HISTORY: frank. diabetic; C Difficile EXAM MEASUREMENTS: Right Kidney: 11.2 x 5.5 x 4.2 cm Left Kidney: 9.9 x 4.0 x 4.9 cm Post Void Residual Volume: not assessed on inpatient US technically limited as patient unable to rotate position. Right Kidney: lobular cortex; multiple renal cysts seen with largest in upper cortex = 1.5 x 0.9 x 1. 0cm ; couple of vessel wall calcifications are seen as hyperechoic linear foci. Left Kidney: No hydronephrosis or masses seen Bladder: indwelling bladder catheter is seen IMPRESSION: Right renal cortical cysts. No suspicious solid renal mass. No hydronephrosis.
--- NOTE | 2020-10-19 18:36 | PN ---
PROGRESS NOTE DATE OF SERVICE: 10/19/2020 REASON FOR FOLLOWUP: 1. Colitis. 2. UTI. INTERVAL HISTORY: The patient is currently afebrile. The patient is feeling better, breathing comfortably. No chest pain, shortness of breath or cough. No abdominal pain. The patient's diarrhea has slowed down. Did have one episode today. PHYSICAL EXAMINATION: On examination, her blood pressure is 139/78 with a pulse of 100, temperature 98.9. She is 92% on room air. GENERAL DESCRIPTION: General description is an elderly female lying in bed in no distress. RESPIRATORY SYSTEM: Unlabored breathing. Clear to auscultation anteriorly. HEART: S1, S2. Regular rate and rhythm. ABDOMEN: Soft. No tenderness. LABS: White count down to 14.5, creatinine 1.6. DIAGNOSTIC IMPRESSION AND PLAN: Patient admitted to hospital with colitis. Initial culture showed C difficile; however, the patient did not respond very well to the vancomycin only and seems to be doing well with cefepime and Flagyl. Recommend finishing therapy with a 10-day course of oral Cipro and Flagyl and close outpatient followup. Family was at the bedside. Their questions and concerns were answered. MMODL / IJN: [id number] /
--- NOTE | 2020-10-19 19:00 | P.PN ---
Subjective Progress Note Date: 10/19/20 CHIEF COMPLAINT: Acute blood loss anemia HISTORY OF PRESENT ILLNESS: The patient is a 75-year-old female who presented with C. diff colitis and acute blood loss anemia. Upper endoscopy demonstrated duodenal ulcer. Her daughter is at bedside and notes continued improvement in her mother's strengh, energy, and appetite. No more blood given yesterday. She is having daily bowel movements. ROS: No reports of nausea and vomiting. No fevers or chills. No productive sputum. Patient speaks Korean. PHYSICAL EXAM: VITAL SIGNS: Reviewed CONSTITUTIONAL: Well developed and in no acute distress. EYES: Conjuctivae without sclera icterus. Extraocular movements grossly intact. HEAD, EARS, NOSE, THROAT: Moist buccal mucosa. Head is atraumatic, normocephalic. Hears conversational speech. No nasal drainage. NECK: No gross thyroidomegaly. RESPIRATORY: Non-labored respirations and equal bilateral excursions. CARDIOVASCULAR: Palpable 2+ radial pulses. ABDOMEN: No peritonitis. MUSCULOSKELETAL: No gross deformity of the lower extremities noted. No clubbing. No cyanosis. SKIN: Good skin turgor. Well perfused. NEUROLOGIC: Cranial nerves II through XII grossly intact. No focal or later alizing signs. PSYCH: Appropriate affect. Alert and oriented to person, place and time. CLINICAL LABS: Reviewed. White blood cell count elevated over 18,000 down to over 14,000. ASSESSMENT: 1. C. diff colitis 2. Large duodenal ulcer 3. Sepsis due to colitis 4. Acute blood loss anemia. PLAN: 1. Her daughter is requesting to proceed with lower endoscopy. 2. As patient is clinically improving, may proceed with colonoscopy while inpatient as sepsis improves. Objective - Vital Signs Vital signs: Vital Signs Temp 98.9 F 10/19/20 14:53 Pulse 100 10/19/20 14:53 Resp 17 10/19/20 14:53 BP 139/78 10/19/20 14:53 Pulse Ox 92 L 10/19/20 14:53 Intake & Output 10/18/20 10/19/20 10/19/20 18:59 06:59 18:59 Output Total 400 901 800 Balance -400 -901 -800 Output: Urine 400 900 800 Stool 1 Other: Voiding Method Indwelling Catheter Indwelling Catheter # Bowel Movements 1 1 - Labs CBC & Chem 7: 10/19/20 06:12 08/15/21 06:12 Labs: Abnormal Lab Results - Last 24 Hours (Table) 10/18/20 10/19/20 10/19/20 Range/Units 20:30 03:32 06:12 WBC 14.05 H (4.50-10.00) X 10*3/uL RBC 2.84 L (4.10-5.20) X 10*6/uL Hgb 8.3 L (12.0-15.0) g/dL Hct 27.1 L (37.2-46.3) % MCHC 30.6 L (32.0-37.0) g/dL RDW 16.4 H (11.5-14.5) % Plt Count 485 H (140-440) X 10*3/uL MPV 9.1 L (9.5-12.2) fL Chloride (96-109) mmol/L Carbon Dioxide (21.6-31.8) mmol/L BUN (9.0-27.0) mg/dL Creatinine (0.6-1.5) mg/dL Est GFR (CKD-EPI)AfAm (60.0-200.0) Est GFR (CKD-EPI)NonAf (60.0-200.0) BUN/Creatinine Ratio (12.00-20.00) Ratio Glucose (70-110) mg/dL POC Glucose (mg/dL) 167 H 197 H (75-99) mg/dL Calcium (8.7-10.3) mg/dL 10/19/20 10/19/20 10/19/20 Range/Units 06:12 06:48 11:50 WBC (4.50-10.00) X 10*3/uL RBC (4.10-5.20) X 10*6/uL Hgb (12.0-15.0) g/dL Hct (37.2-46.3) % MCHC (32.0-37.0) g/dL RDW (11.5-14.5) % Plt Count (140-440) X 10*3/uL MPV (9.5-12.2) fL Chloride 116 H (96-109) mmol/L Carbon Dioxide 16.8 L (21.6-31.8) mmol/L BUN 36.0 H (9.0-27.0) mg/dL Creatinine 1.6 H (0.6-1.5) mg/dL Est GFR (CKD-EPI)AfAm 36.4 L (60.0-200.0) Est GFR (CKD-EPI)NonAf 31.4 L (60.0-200.0) BUN/Creatinine Ratio 22.50 H (12.00-20.00) Ratio Glucose 191 H (70-110) mg/dL POC Glucose (mg/dL) 228 H 177 H (75-99) mg/dL Calcium 8.0 L (8.7-10.3) mg/dL 10/19/20 Range/Units 16:40 WBC (4.50-10.00) X 10*3/uL RBC (4.10-5.20) X 10*6/uL Hgb (12.0-15.0) g/dL Hct (37.2-46.3) % MCHC (32.0-37.0) g/dL RDW (11.5-14.5) % Plt Count (140-440) X 10*3/uL MPV (9.5-12.2) fL Chloride (96-109) mmol/L Carbon Dioxide (21.6-31.8) mmol/L BUN (9.0-27.0) mg/dL Creatinine (0.6-1.5) mg/dL Est GFR (CKD-EPI)AfAm (60.0-200.0) Est GFR (CKD-EPI)NonAf (60.0-200.0) BUN/Creatinine Ratio (12.00-20.00) Ratio Glucose (70-110) mg/dL POC Glucose (mg/dL) 268 H (75-99) mg/dL Calcium (8.7-10.3) mg/dL Assessment and Plan (1) C. difficile colitis Current Visit: Yes Status: Acute Code(s): A04.72 - ENTEROCOLITIS D/T CLOSTRIDIUM DIFFICILE, NOT SPCF RECUR SNOMED Code(s): 492548372 (2) Sepsis Current Visit: Yes Status: Acute Code(s): A41.9 - SEPSIS, UNSPECIFIED ORGANISM SNOMED Code(s): 86440148 (3) Fever Current Visit: Yes Status: Acute Code(s): R50.9 - FEVER, UNSPECIFIED SNOMED Code(s): 661136231 (4) CADE (acute kidney injury) Current Visit: No Status: Acute Code(s): N17.9 - ACUTE KIDNEY FAILURE, UNSPECIFIED SNOMED Code(s): 59975444 (5) Anemia Current Visit: No Status: Acute Code(s): D64.9 - ANEMIA, UNSPECIFIED SNOMED Code(s): 247600434 (6) Poorly controlled type 2 diabetes mellitus Current Visit: Yes Status: Acute Code(s): E11.65 - TYPE 2 DIABETES MELLITUS WITH HYPERGLYCEMIA SNOMED Code(s): 90217161 (7) Hyperglycemia Current Visit: Yes Status: Acute Code(s): R73.9 - HYPERGLYCEMIA, UNSPECIFIED SNOMED Code(s): 13022064 (8) Hyperglycemia due to type 2 diabetes mellitus Current Visit: Yes Status: Acute Code(s): E11.65 - TYPE 2 DIABETES MELLITUS WITH HYPERGLYCEMIA SNOMED Code(s): 506186742310932
[2020-10-19 20:24] LABS: Glucose,Whole Blood 225 mg/dL (75-99)
[2020-10-19] MEDS: LATANOPROST 0.005% OPHTH DROPS 2.5 ML BTL BOTH EYES SCH (21:23)
[2020-10-20 02:20] LABS: Glucose,Whole Blood 244 mg/dL (75-99)
[2020-10-20] MEDS: CEFEPIME 1 GM in SODIUM CHLORIDE 0.9% 50 ML IVPB SCH ×2 (05:26→18:54)
[2020-10-20 07:06] LABS: Glucose,Whole Blood 233 mg/dL (75-99)
[2020-10-20] MEDS: INSULIN ASPART (NovoLOG) 100 UNIT/ML VIAL SQ SCH ×7 (07:32→22:17)
[2020-10-20] MEDS: ATORVASTATIN 10 MG TAB PO SCH (07:36)
[2020-10-20] MEDS: CHOLECALCIFEROL 25 MCG (1000 IU) TABLET PO SCH (07:36)
[2020-10-20] MEDS: METOPROLOL SUCCINATE (ER) 100 MG TAB.ER.24H PO SCH (07:36)
[2020-10-20] MEDS: HEPARIN SODIUM,PORCINE/PF 5,000 UNIT/0.5 ML SYRINGE SQ SCH ×2 (07:36→22:17)
[2020-10-20] MEDS: SUCRALFATE 1 GM TAB PO SCH ×3 (07:36→16:56)
[2020-10-20] MEDS: metroNIDAZOLE 500 MG TAB PO SCH ×3 (07:36→22:18)
[2020-10-20] MEDS: PANTOPRAZOLE 40 MG TABLET PO SCH ×2 (07:36→16:56)
[2020-10-20] MEDS: CHOLESTYRAMINE (WITH SUGAR) 4 GM PACKET PO SCH ×2 (07:37→22:17)
[2020-10-20] MEDS: OLANZapine 5 MG TAB PO SCH (07:37)
[2020-10-20] MEDS: DONEPEZIL 5 MG TAB PO SCH (07:37)
[2020-10-20 08:57] LABS: HCT 27.7 % (37.2-46.3); HGB 8.4 g/dL (12.0-15.0); MCH 28.7 pg (27.0-32.0); MCHC 30.3 g/dL (32.0-37.0); MCV 94.5 fL (80.0-97.0); Platelet Count 497 X 10*3/uL (140-440); RBC 2.93 X 10*6/uL (4.10-5.20); RDW 16.4 % (11.5-14.5); WBC 11.82 X 10*3/uL (4.50-10.00)
--- NOTE | 2020-10-20 09:17 | P.PN ---
Subjective Patient is seen in follow-up for acute kidney injury. Creatinine stable at 1.6 yesterday. Diarrhea slowly improving. Maintained on bicarb drip. Nonoliguric. Blood pressure stable. Vital signs are stable. General: The patient appeared well nourished and normally developed. HEENT: Head exam is unremarkable. Neck is without jugular venous distension. LUNGS: Breath sounds decreased. HEART: Rate and Rhythm are regular. ABDOMEN: Soft, no distention. EXTREMITITES: No edema. Objective - Vital Signs Vital signs: Vital Signs Temp 98.8 F 10/20/20 08:00 Pulse 105 H 10/20/20 08:00 Resp 16 10/20/20 08:00 BP 132/67 10/20/20 08:00 Pulse Ox 92 L 10/20/20 08:55 Intake & Output 10/19/20 10/20/20 10/20/20 18:59 06:59 18:59 Output Total 800 501 Balance -800 -501 Output: Urine 800 500 Stool 1 Other: Voiding Method Indwelling Catheter Indwelling Catheter # Bowel Movements 1 - Labs CBC & Chem 7: 10/20/20 04:37 10/19/20 06:12 Labs: Abnormal Lab Results - Last 24 Hours (Table) 10/19/20 10/19/20 10/19/20 Range/Units 06:12 06:12 11:50 WBC 14.05 H (4.50-10.00) X 10*3/uL RBC 2.84 L (4.10-5.20) X 10*6/uL Hgb 8.3 L (12.0-15.0) g/dL Hct 27.1 L (37.2-46.3) % MCHC 30.6 L (32.0-37.0) g/dL RDW 16.4 H (11.5-14.5) % Plt Count 485 H (140-440) X 10*3/uL MPV 9.1 L (9.5-12.2) fL Chloride 116 H (96-109) mmol/L Carbon Dioxide 16.8 L (21.6-31.8) mmol/L BUN 36.0 H (9.0-27.0) mg/dL Creatinine 1.6 H (0.6-1.5) mg/dL Est GFR (CKD-EPI)AfAm 36.4 L (60.0-200.0) Est GFR (CKD-EPI)NonAf 31.4 L (60.0-200.0) BUN/Creatinine Ratio 22.50 H (12.00-20.00) Ratio Glucose 191 H (70-110) mg/dL POC Glucose (mg/dL) 177 H (75-99) mg/dL Calcium 8.0 L (8.7-10.3) mg/dL 10/19/20 10/19/20 10/20/20 Range/Units 16:40 20:22 02:18 WBC (4.50-10.00) X 10*3/uL RBC (4.10-5.20) X 10*6/uL Hgb (12.0-15.0) g/dL Hct (37.2-46.3) % MCHC (32.0-37.0) g/dL RDW (11.5-14.5) % Plt Count (140-440) X 10*3/uL MPV (9.5-12.2) fL Chloride (96-109) mmol/L Carbon Dioxide (21.6-31.8) mmol/L BUN (9.0-27.0) mg/dL Creatinine (0.6-1.5) mg/dL Est GFR (CKD-EPI)AfAm (60.0-200.0) Est GFR (CKD-EPI)NonAf (60.0-200.0) BUN/Creatinine Ratio (12.00-20.00) Ratio Glucose (70-110) mg/dL POC Glucose (mg/dL) 268 H 225 H 244 H (75-99) mg/dL Calcium (8.7-10.3) mg/dL 10/20/20 10/20/20 Range/Units 04:37 07:05 WBC 11.82 H (4.50-10.00) X 10*3/uL RBC 2.93 L (4.10-5.20) X 10*6/uL Hgb 8.4 L (12.0-15.0) g/dL Hct 27.7 L (37.2-46.3) % MCHC 30.3 L (32.0-37.0) g/dL RDW 16.4 H (11.5-14.5) % Plt Count 497 H (140-440) X 10*3/uL MPV 9.0 L (9.5-12.2) fL Chloride (96-109) mmol/L Carbon Dioxide (21.6-31.8) mmol/L BUN (9.0-27.0) mg/dL Creatinine (0.6-1.5) mg/dL Est GFR (CKD-EPI)AfAm (60.0-200.0) Est GFR (CKD-EPI)NonAf (60.0-200.0) BUN/Creatinine Ratio (12.00-20.00) Ratio Glucose (70-110) mg/dL POC Glucose (mg/dL) 233 H (75-99) mg/dL Calcium (8.7-10.3) mg/dL Assessment and Plan Plan: Assessment: 1. Acute kidney injury secondary to ATN secondary to anemia and diarrhea. Creatinine 1.6 as of yesterday. Creatinine as low as 1.2 this admission. Unknown baseline. No hydronephrosis noted on CAT scan/uls. UA with trace protein. 2. C. diff colitis maintained on antibiotics per infectious disease. 3. Metabolic acidosis secondary to GI losses. On bicarb drip. 4. Acute blood loss anemia status post transfusion this admission. On Aranesp. 5. Ankle wound with culture positive for Pseudomonas on antibiotics. 6. Diabetes mellitus. 7. Chronic kidney disease stage IIIB. Creatinine as low as 1.2 this admission. Etiology is nephrosclerosis and diabetic kidney disease. Plan: Maintain bicarb drip at 80 mL an hour. Encouraged oral intake. Avoid nephrotoxins. Continue to monitor renal function and urine output. Morning labs pending.
[2020-10-20 09:50] LABS: African American GFR (CKD) 39.4 (60.0-200.0); Anion Gap 7.9 mmol/L (4.00-12.00); Calcium 7.8 mg/dL (8.7-10.3); Carbon Dioxide 18.1 mmol/L (21.6-31.8); Magnesium 1.9 mg/dL (1.5-2.4); Potassium 3.8 mmol/L (3.5-5.5)
--- NOTE | 2020-10-20 11:07 | P.PN ---
Subjective Progress Note Date: 10/20/20 HISTORY OF PRESENT ILLNESS: Patient is a pleasant 75-year-old female who is predominantly Ukrainian-speaking and poor historian. Majority of history is supplied by chart. Patient has a history of C. diff colitis, hypertension, dementia, carotid artery disease, diabetes mellitus type 2, diabetic neuropathy, chronic kidney disease, hyperlipidemia. Patient apparently was brought into the hospital secondary to generalized weakness and fatigue. She had been on outpatient Cipro for UTI and then started noticing diarrhea. She is found to have C. diff colitis and is being treated for sepsis. She also was found to have acute blood loss anemia and underwent upper endoscopy which demonstrated large one cm duodenal ulcer. She did receive 1 unit packed red blood cells yesterday. Per nursing she is still having significant diarrhea. Echocardiogram was performed 10/17/2020 which shows normal ejection fraction 55- 60%, mild mitral regurgitation, mild tricuspid regurgitation, small pericardial effusion. Blood work shows white blood cell count 16.9, hemoglobin 8.2, platelets 441, sodium 139, bicarb 16, BUN 31, creatinine 1.6, albumin 2.3, AST 16, ALP 11, troponin on presentation less than 0.012. EKG shows normal sinus rhythm, left axis deviation, poor R-wave progression, occasional PVCs, nonspecific ST depressions in the lateral leads. Patient has been having persistent sinus tachycardia over the last 9 days predominantly in the 100s to 120. She has been placed on Toprol 200 mg daily and fraction of hemoglobin has improved heart rates into the 80s to 90s. She is normally on Toprol 100 mg daily at home. 10/19 Patient seen and examined. Patient's daughter able to translate more and patient unable to respond more. She has been having some episodes of chest t ightness which daughter is unsure if is related to her positioning in bed however has been fairly constant over the last few days. She admits to a history of prior angioplasty approximately 20 years ago. Daughter states that since her ankle fracture she has not been that active however routinely does not complain much of any shortness breath or chest pain. REVIEW OF SYSTEMS At the time of my exam: Patient not responding to questions and review of systems Limited. She denies any chest pain, pressure, shortness breath. 10/20/2020 Patient examined this morning at the bedside. Patient denies chest pain or pressure. Denies shortness of breath. Telemetry reveals sinus mechanism with a heart rate in the 90s. Blood pressure 132/67. She is on room air with oxygen saturations greater than 90%. She is afebrile. Hemoglobin 8.4. Per nursing, patient is scheduled for a colonoscopy in 10/22/2020 PHYSICAL EXAM: VITAL SIGNS: Reviewed. GENERAL: Well-developed in no acute distress. NECK: Supple. No JVD or thyromegaly LUNGS: Respirations even and unlabored. Lungs essentially clear to auscultation bilaterally. HEART: Regular rate and rhythm. S1 and S2 heard. EXTREMITIES: Normal range of motion. No clubbing or cyanosis. Peripheral pulses intact. No lower extremity edema ASSESSMENT: 1. Sinus tachycardia 2. Diabetes mellitus type 2 3. Carotid artery disease 4. Dementia 5. Hypertension 6. Chronic kidney disease 7. Acute GI bleed 8. Sepsis 9. C. diff colitis 10. Metabolic acidosis 11. Precordial chest pain 12. History of CAD with prior PCI in 1999 per daughter PLAN: Continue current cardiac medications Tachycardia improving as sepsis and acute blood loss anemia have improved No further inpatient recommendations from a cardiac standpoint We will sign off. Please reconsult if needed. Nurse practitioner note has been reviewed by physician. Signing provider agrees with the documented findings, assessment, and plan of care. Objective - Vital Signs Vital signs: Vital Signs Temp 98.8 F 10/20/20 08:00 Pulse 105 H 10/20/20 08:00 Resp 16 10/20/20 08:00 BP 132/67 10/20/20 08:00 Pulse Ox 92 L 10/20/20 08:55 Intake & Output 10/19/20 10/20/20 10/20/20 18:59 06:59 18:59 Output Total 800 501 Balance -800 -501 Output: Urine 800 500 Stool 1 Other: Voiding Method Indwelling Catheter Indwelling Catheter # Bowel Movements 1 - Labs CBC & Chem 7: 10/20/20 04:37 10/20/20 04:37 Labs: Abnormal Lab Results - Last 24 Hours (Table) 10/19/20 10/19/20 10/19/20 Range/Units 06:12 06:12 11:50 WBC 14.05 H (4.50-10.00) X 10*3/uL RBC 2.84 L (4.10-5.20) X 10*6/uL Hgb 8.3 L (12.0-15.0) g/dL Hct 27.1 L (37.2-46.3) % MCHC 30.6 L (32.0-37.0) g/dL RDW 16.4 H (11.5-14.5) % Plt Count 485 H (140-440) X 10*3/uL MPV 9.1 L (9.5-12.2) fL Chloride 116 H (96-109) mmol/L Carbon Dioxide 16.8 L (21.6-31.8) mmol/L BUN 36.0 H (9.0-27.0) mg/dL Creatinine 1.6 H (0.6-1.5) mg/dL Est GFR (CKD-EPI)AfAm 36.4 L (60.0-200.0) Est GFR (CKD-EPI)NonAf 31.4 L (60.0-200.0) BUN/Creatinine Ratio 22.50 H (12.00-20.00) Ratio Glucose 191 H (70-110) mg/dL POC Glucose (mg/dL) 177 H (75-99) mg/dL Calcium 8.0 L (8.7-10.3) mg/dL 10/19/20 10/19/20 10/20/20 Range/Units 16:40 20:22 02:18 WBC (4.50-10.00) X 10*3/uL RBC (4.10-5.20) X 10*6/uL Hgb (12.0-15.0) g/dL Hct (37.2-46.3) % MCHC (32.0-37.0) g/dL RDW (11.5-14.5) % Plt Count (140-440) X 10*3/uL MPV (9.5-12.2) fL Chloride (96-109) mmol/L Carbon Dioxide (21.6-31.8) mmol/L BUN (9.0-27.0) mg/dL Creatinine (0.6-1.5) mg/dL Est GFR (CKD-EPI)AfAm (60.0-200.0) Est GFR (CKD-EPI)NonAf (60.0-200.0) BUN/Creatinine Ratio (12.00-20.00) Ratio Glucose (70-110) mg/dL POC Glucose (mg/dL) 268 H 225 H 244 H (75-99) mg/dL Calcium (8.7-10.3) mg/dL 10/20/20 10/20/20 10/20/20 Range/Units 04:37 04:37 07:05 WBC 11.82 H (4.50-10.00) X 10*3/uL RBC 2.93 L (4.10-5.20) X 10*6/uL Hgb 8.4 L (12.0-15.0) g/dL Hct 27.7 L (37.2-46.3) % MCHC 30.3 L (32.0-37.0) g/dL RDW 16.4 H (11.5-14.5) % Plt Count 497 H (140-440) X 10*3/uL MPV 9.0 L (9.5-12.2) fL Chloride 113 H (96-109) mmol/L Carbon Dioxide 18.1 L (21.6-31.8) mmol/L BUN 30.0 H (9.0-27.0) mg/dL Creatinine (0.6-1.5) mg/dL Est GFR (CKD-EPI)AfAm 39.4 L (60.0-200.0) Est GFR (CKD-EPI)NonAf 34.0 L (60.0-200.0) BUN/Creatinine Ratio (12.00-20.00) Ratio Glucose 284 H (70-110) mg/dL POC Glucose (mg/dL) 233 H (75-99) mg/dL Calcium 7.8 L (8.7-10.3) mg/dL
[2020-10-20 11:35] LABS: Glucose,Whole Blood 201 mg/dL (75-99)
--- NOTE | 2020-10-20 12:33 | P.PN ---
Subjective Progress Note Date: 10/20/20 CHIEF COMPLAINT: Acute blood loss anemia HISTORY OF PRESENT ILLNESS: The patient is a 75-year-old female who presented with C. diff colitis and acute blood loss anemia. She has duodenal ulcer. No n ew events overnight. She is resting comfortably. Overall energy is improving. ROS: No reports of nausea and vomiting. No fevers or chills. No productive sputum. Patient speaks Venezuelan. PHYSICAL EXAM: VITAL SIGNS: Reviewed CONSTITUTIONAL: Well developed and in no acute distress. EYES: Conjuctivae without sclera icterus. Extraocular movements grossly intact. HEAD, EARS, NOSE, THROAT: Moist buccal mucosa. Head is atraumatic, normocephalic. Hears conversational speech. No nasal drainage. NECK: No gross thyroidomegaly. RESPIRATORY: Non-labored respirations and equal bilateral excursions. CARDIOVASCULAR: Palpable 2+ radial pulses. ABDOMEN: No peritonitis. MUSCULOSKELETAL: No gross deformity of the lower extremities noted. No clubbing. No cyanosis. SKIN: Good skin turgor. Well perfused. NEUROLOGIC: Cranial nerves II through XII grossly intact. No focal or lateralizing signs. CLINICAL LABS: Reviewed. White blood cell count elevated over 18,000 down to over 14,000, now 11.8. Hemoglobin stable 8.4. ASSESSMENT: 1. C. diff colitis 2. Large duodenal ulcer 3. Sepsis due to colitis 4. Acute blood loss anemia. PLAN: 1. Hemoglobin is stable. 2. May benefit from colonoscopy as she is more stable to complete anemia workup 3. Colonoscopy scheduled for Tuesday Objective - Vital Signs Vital signs: Vital Signs Temp 98.8 F 10/20/20 08:00 Pulse 105 H 10/20/20 08:00 Resp 16 10/20/20 08:00 BP 132/67 10/20/20 08:00 Pulse Ox 92 L 10/20/20 08:55 Intake & Output 10/19/20 10/20/20 10/20/20 18:59 06:59 18:59 Output Total 800 501 Balance -800 -501 Output: Urine 800 500 Stool 1 Other: Voiding Method Indwelling Catheter Indwelling Catheter # Bowel Movements 1 - Labs CBC & Chem 7: 10/20/20 04:37 10/20/20 04:37 Labs: Abnormal Lab Results - Last 24 Hours (Table) 10/19/20 10/19/20 10/19/20 Range/Units 06:12 06:12 11:50 WBC 14.05 H (4.50-10.00) X 10*3/uL RBC 2.84 L (4.10-5.20) X 10*6/uL Hgb 8.3 L (12.0-15.0) g/dL Hct 27.1 L (37.2-46.3) % MCHC 30.6 L (32.0-37.0) g/dL RDW 16.4 H (11.5-14.5) % Plt Count 485 H (140-440) X 10*3/uL MPV 9.1 L (9.5-12.2) fL Chloride 116 H (96-109) mmol/L Carbon Dioxide 16.8 L (21.6-31.8) mmol/L BUN 36.0 H (9.0-27.0) mg/dL Creatinine 1.6 H (0.6-1.5) mg/dL Est GFR (CKD-EPI)AfAm 36.4 L (60.0-200.0) Est GFR (CKD-EPI)NonAf 31.4 L (60.0-200.0) BUN/Creatinine Ratio 22.50 H (12.00-20.00) Ratio Glucose 191 H (70-110) mg/dL POC Glucose (mg/dL) 177 H (75-99) mg/dL Calcium 8.0 L (8.7-10.3) mg/dL 10/19/20 10/19/20 10/20/20 Range/Units 16:40 20:22 02:18 WBC (4.50-10.00) X 10*3/uL RBC (4.10-5.20) X 10*6/uL Hgb (12.0-15.0) g/dL Hct (37.2-46.3) % MCHC (32.0-37.0) g/dL RDW (11.5-14.5) % Plt Count (140-440) X 10*3/uL MPV (9.5-12.2) fL Chloride (96-109) mmol/L Carbon Dioxide (21.6-31.8) mmol/L BUN (9.0-27.0) mg/dL Creatinine (0.6-1.5) mg/dL Est GFR (CKD-EPI)AfAm (60.0-200.0) Est GFR (CKD-EPI)NonAf (60.0-200.0) BUN/Creatinine Ratio (12.00-20.00) Ratio Glucose (70-110) mg/dL POC Glucose (mg/dL) 268 H 225 H 244 H (75-99) mg/dL Calcium (8.7-10.3) mg/dL 10/20/20 10/20/20 10/20/20 Range/Units 04:37 04:37 07:05 WBC 11.82 H (4.50-10.00) X 10*3/uL RBC 2.93 L (4.10-5.20) X 10*6/uL Hgb 8.4 L (12.0-15.0) g/dL Hct 27.7 L (37.2-46.3) % MCHC 30.3 L (32.0-37.0) g/dL RDW 16.4 H (11.5-14.5) % Plt Count 497 H (140-440) X 10*3/uL MPV 9.0 L (9.5-12.2) fL Chloride 113 H (96-109) mmol/L Carbon Dioxide 18.1 L (21.6-31.8) mmol/L BUN 30.0 H (9.0-27.0) mg/dL Creatinine (0.6-1.5) mg/dL Est GFR (CKD-EPI)AfAm 39.4 L (60.0-200.0) Est GFR (CKD-EPI)NonAf 34.0 L (60.0-200.0) BUN/Creatinine Ratio (12.00-20.00) Ratio Glucose 284 H (70-110) mg/dL POC Glucose (mg/dL) 233 H (75-99) mg/dL Calcium 7.8 L (8.7-10.3) mg/dL Assessment and Plan (1) C. difficile colitis Current Visit: Yes Status: Acute Code(s): A04.72 - ENTEROCOLITIS D/T CLOSTRIDIUM DIFFICILE, NOT SPCF RECUR SNOMED Code(s): 726430331 (2) Sepsis Current Visit: Yes Status: Acute Code(s): A41.9 - SEPSIS, UNSPECIFIED ORGANISM SNOMED Code(s): 84832335 (3) Fever Current Visit: Yes Status: Acute Code(s): R50.9 - FEVER, UNSPECIFIED SNOMED Code(s): 875084558 (4) CADE (acute kidney injury) Current Visit: No Status: Acute Code(s): N17.9 - ACUTE KIDNEY FAILURE, UNSPECIFIED SNOMED Code(s): 83038502 (5) Anemia Current Visit: No Status: Acute Code(s): D64.9 - ANEMIA, UNSPECIFIED SNOMED Code(s): 469650794 (6) Poorly controlled type 2 diabetes mellitus Current Visit: Yes Status: Acute Code(s): E11.65 - TYPE 2 DIABETES MELLITUS WITH HYPERGLYCEMIA SNOMED Code(s): 10041731 (7) Hyperglycemia Current Visit: Yes Status: Acute Code(s): R73.9 - HYPERGLYCEMIA, UNSPECIFIED SNOMED Code(s): 07779336 (8) Hyperglycemia due to type 2 diabetes mellitus Current Visit: Yes Status: Acute Code(s): E11.65 - TYPE 2 DIABETES MELLITUS WITH HYPERGLYCEMIA SNOMED Code(s): 825569115477630
--- NOTE | 2020-10-20 13:00 | P.PN ---
Subjective Patient is a pleasant 75-year-old female came in with complains of diarrhea high-grade fevers generalized weakness and tiredness. Patient recently completed antibiotic therapy with ciprofloxacin about a week ago she was treated for urinary tract infection patient presented with urinary retention during her last hospitalization. Patient does have a language barrier which is Lebanese. Able to get good history because daughter was present at the bedside. Patient was also significantly hypoglycemic patient is on Actos as well as a sulfonylurea for diabetes management. Her last hemoglobin A1c was from September 21 which was 6.3 patient appears to have chronic kidney disease with baseline creatinine of around 1.4 present creatinine is 1.68. Patient does have metabolic acidosis, which appears to be mostly nonambulatory gap. Chest x-ray did not show any significant abnormality, a year is mildly abnormal but no symptoms of a urinary tract infection, no evidence of UTI 10/10/2020 patient is examined at the bedside, RN was present with process laboratory specialist machine. I was able was able to communicate with patient . Patient states that she is not having any abdominal pain, she denies any chest pain cough shortness of breath. Patient states that she is just tired. Patient was an Ateam at 2 AM due to a loss of IV access. Patient at that time was infusing D10 at 1 25 mL per hour. Patient's blood sugar was found to be 22. Patient had Accu-Cheks completed every hour and IV access was established. Patient's blood sugars that have been in the high 200s. Patient had a midline placed this afternoon after losing a second IV. Patient's blood sugar can be checked [id number]. Patient will be transitioned off of the D10 drip to 0.9ns at 75 mL per hour. Patient was found to have a positive culture for C. diff this admission and has been started on oral vancomycin. 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 Patient does have a history of chronic kidney disease stage III with a baseline creatinine of 1.4. Patient has poor oral intake, will be started on oral supplementation, constipation with nutritional services. Oral hypoglycemic agents will be on hold. Patient may resume sliding scale for hyperglycemia. Monitor closely for symptoms of hypoglycemia. Patient's hemoglobin has dropped to 7.8 from 9.2. Will recheck hemoglobin at 11 PM as well as in the morning. Continue to monitor for signs of bleeding. Reports patient still having diarrhea. Patient's white blood cell count is stable at 11.5. Continue oral antibiotics. Vital signs are currently stable. 10/11/2020 Patient is examined at the bedside, EKG being performed. Patient denies any abdominal pain, denies cramping, denies nausea vomiting. Patient reports diarrhea. Per RN there are no signs of active bleed. Patient's heart rate was elevated this morning at 150, EKG obtained revealed normal rhythm, sinus tachycardia, lactic acid obtained, 0.8, fluids were increased to 100cc/hr. Patient's heart rate had improved down to 110 status post metoprolol. Patient continues on by mouth Vanco for a C. diff infection. Patient's hemoglobin today is 7.7, general surgery consultation to rule out an acute GI bleed. Patient reports no issues with urination. Patient's Coumadin and creatinine continue to be elevated. Continue to monitor. Patient's blood sugar current level 399, continue with NovoLog signs were insulin and consistent carb diet. Continue to monitor blood sugars. Encourage ambulation as tolerated. Urine culture finalized for Renato glabrata. Nonhealing wound to the patient's left ankle finalized for gram-negative bacilli final cultures and sensitivity pending. Repeat chest x-ray today, was negative for any acute process. Patient continues to have temperature, T-max 100.6. Continue with local wound care with Santyl. Patient is primarily Lebanese-speaking, bilingual interpreter available. 10/12/2020 Patient is examined today at bedside, patient is awake alert and oriented 3. Patient continues to have loose bowel movements. Per RN patient had to be straight cathed times one for urinary retention, repeat UA and culture has been ordered. Patient's ankle culture has been finalized, growing pseudomonas, antibiotic recommendations per infectious disease. Patient continues to have temperatures, T-max 100.7 in the last 24 hours, heart rate 118, blood pressure 126/57, patient is 96% on room air. Patient can of oral Tylenol as needed. Continue with IV fluids 0.9 at 125 continue to monitor for signs of sepsis. Repeat lactic acid drawn yesterday was a level of 0.08. Patient will continue on PO Vanco for C. diff colitis, recommendations per ID. Patient denies any chest pain, cough, shortness of breath. Patient states that her abdomen feels so-so. Patient is primarily Lebanese-speaking. Patient's lab work today revealed a hemoglobin that is now stable at 8.8. White blood cell count is s table at 10.78. Patient's BUN and creatinine are essentially unchanged. Patient is hyperglycemic, continue with NovoLog sliding scale. Continue to encourage oral intake. Patient can continue with local wound care per wound care services. Patient was following the wound care center. 10/13/2020 Patient has an indwelling catheter placed from nursing services, for urinary retention. A UA and culture was sent, infectious disease have added oral voriconazole for a positive UTI. Patient continues on by mouth Vanco for C. diff colitis. Patient was evaluated by surgical services, who performed an EGD this morning, findings consistent with large 1 cm duodenal ulcer, second portion recent bleed, multiple punctate duodenal ulcers with duodenitis, gastritis, diaphragmatic hiatal hernia. There have been no signs of blood in the stool, dark stool per nursing services. Patient is continuing with loose brown stools. In addition patient's left ankle wound has grown Pseudomonas, no further an tibiotic recommendations from ID. Patient continues to have temps, T-max 100.4 in the last 24 hours. Patient's blood pressure this morning 170/70, heart rate 114. Continue with IV fluids 0.9 at 125, recheck blood pressure. Blood sugars continue to be elevated intermittently, continue with sliding scale coverage as needed, with scheduled insulin. Hemoglobin stable today at 8.8. Patient's Plav ix has been discontinued. Patient wasn't started on Carafate and Protonix for GI prophylaxis. Today patient denies chest pain, reports her stomach feels so- so. Patient is primarily Lebanese-speaking, bilingual interpreter available when needed. Will consult PT/OT, increase activity level as tolerated. 10/14/2020 patient is evaluated sitting up in the chair today. patient states that her belly feels so/so. She is still having diarrhea, loose per RN. Patient continues on oral vanco and was started on questran via ID services. Patient continues with IDC for urinary retention, has been started on oral vfen for positive renato urine culture. Patient was evaluated by PT today, who recommends 24/7 post discharge with either homecare services or [facility]. Patient continues to be febrile, t-max 99.7 in the last 24 hours, which is slowly improving. Patients HR is 120 sinus tachycardia, she was started on toprol XL 100 mg po daily, without improvement. She was increased to 150 mg PO Daily. Pt continues on IV fluids. She has a fair appetite. Continue to encourage ambulation. 10/15/2020 Patient is sitting up in the bed today, is working with PT OT and has gone up in the chair yesterday. Patient states her belly still feels so-so, she still having diarrhea, was started on Questran yesterday in addition to by mouth Vanco. Patient continues with IDC for urinary retention, has been started on oral Vfend for a positive renato urine culture. Patient continues to be febrile, T-max 100 in the last 24 hours. This is a improvement. Patient was started on Toprol for sinus tachycardia, improving, her weight today is 15. Patient denies any chest pain, cough. Blood pressure today is 156/71, 96% on room air. Patient's white count continues to trend down slowly, 15.1 today. Continue to monitor blood sugars closely. The plan on discharge once medically stable is to return home with daughter on discharge with [facility]. 10/16/2020 Patient is evaluated she is resting in the bed. Patient states that her belly is still causing her some discomfort. She states that she does get upset st [facility] after eating. Per RN patient has 2 bowel movements throughout the night both were loose. Patient continues on Questran, by mouth Vanco. Patient has IDC for urinary retention. She is on oral Vfend for positive rneato urine culture. Patient needs to remain febrile in the last 24 hours is 100.7, patient is still sinus tachycardia, heart rate 130s this morning. Blood pressure 103/60, 93% on room air. Repeat EKG demonstrated sinus tachycardia. Patient has an echocardiogram pending, increased metoprolol 200 mg by mouth daily yesterday. Patient had IV fluids ordered at 0.9 at 125. Patient will have a repeat chest x-ray today to follow up with the abdominal pelvis CT that demonstrated possible chronic congestive heart failure. We will repeat a chem panel, blood count, magnesium, lactic acid today. Infectious disease at the bedside and discussed findings. Patient's hemoglobin yesterday was 7.5, no signs of an acute bleed, will repeat. Patient denies any chest pain, chest dis comfort. She does state that she is weak and has a poor appetite. 10/17/2020 Patient is evaluated in the bed. She hasn't worked with PT and OT. Today patient's hemoglobin came back at 6.3. Patient has received 2 doses of IV iron via surgical services. Patient will receive 1 unit of PRBCs today. Patient's white blood cell count today is 18.9 which is improved from yesterday at 21. Patient for complaints of some abdominal discomfort, nausea, diarrhea. Per RN, patient had liquid bowel movements every 2 hours last night. Patient continues on questran and hasn't changed to by mouth Flagyl. Patient isn't potassium carefully for GI prophylaxis. Patient has been placed on a consistent carb diet, however patient does not have much of an appetite. Echocardiogram revealed an ejection fraction of 55-60%, mild tricuspid regurg, small pericardial effusion located new left ventricle. Patient remains in sinus tachycardia, heart rate between 118-107. Request a cardiology consultation topham nova in lieu of elevated heart rate, patient is continued on metoprolol XL 200 mg daily. Fluids have been discontinued due to the sensory findings which could correlate for mild CHF. Patient BNP yesterday was 12,000, 100 and a dose of IV Lasix was given. Patient's creatinine today is now 1.41. Will recheck in the morning. IV cefepime has been added from infectious disease services. 10/18/2020 Patient's repeat labs are still pending. Patient does look pale. Patient had one episode of diarrhea. Patient remains tachycardic patient blood pressures are low normal at this can you amlodipine that will help with the improvement of blood pressure as well as tachycardia. Patient remains on cefepime and metronidazole. 10/19/2020 Patient's diarrhea is getting better patient had 1 episode of diarrhea last night. Patient creatinine did go up to 1.6 and patient was started on IV fluids appropriately. Patient the saturations are 92% will closely monitor for any volume overload. Nephrology will be consulted for acute renal failure. Patient's white blood cell count trended down. 10/20/2020 Patient diarrhea resolved patient is off oxygen patient overall is clinically doing well white blood cell count is coming down, patient the is presently on bicarbonate drip nephrology evaluated the patient to believe patient has acute children necrosis. Patient has a acidosis because of renal failure. Patient probably can be discharged tomorrow. Family wanted to take her home, they prefer not to send her to subacute rehabitation. ROS: Constitutional: Denied any fatigue denied any fever. Cardio vascular: denied any chest pain, palpitations Gastrointestinal denied any nausea vomiting, reports diarrhea. Reports decreased appetite Pulmonary: Denied any shortness of breath cough Neurologic denied any new focal deficits All inpatient medications were reviewed and appropriate changes in these medications as dictated in the interval history and assessment and plan. PHYSICAL EXAMINATION: GENERAL: The patient is alert and oriented x3, not in any acute distress. Well developed, well nourished. HEENT: Pupils are round and equally reacting to light. EOMI. No scleral icterus. No conjunctival pallor. Normocephalic, atraumatic. No pharyngeal erythema. No thyromegaly. CARDIOVASCULAR: S1 and S2 present. No murmurs, rubs, or gallops. PULMONARY: Chest is clear to auscultation, no wheezing or crackles. ABDOMEN: Soft, nontender, nondistended, hyperactive bowel sounds. MUSCULOSKELETAL: No joint swelling or deformity. EXTREMITIES: No cyanosis, clubbing, or pedal edema. NEUROLOGICAL: Gross neurological examination did not reveal any focal deficits. SKIN: Nonhealing wound on buttock and left ankle/heel, Assessment and plan -Sepsis secondary to C. diff colitis is being treated for pseudomonal UTI as well: Patient's heart rate is better, diarrhea resolved -C diff Colitis - Questran, and is on Flagyl -Acute renal failure: Patient was started on IV fluids secondary to diarrhea nephrology was consulted. -Severe hypoglycemia, improved now -Coronary artery disease continue on current cardiac medications -Hypertension patient was resumed on beta milli is continued Norvasc -diabetes mellitus type 2, With hyperglycemia. Patient is on sliding scale, scheduled NovoLog continue to hold oral agents due to risk for hypoglycemia. -Diabetic nephropathy chronic kidney disease stage III baseline creatinine of around 1.4, Anemia secondary to an acute bleeding duodenal ulcer, gastritis - EGD performed holding Plavix for 7 days, can resume on 10/20/20 which is today. Hemoglobin today is 6.3, patient has received 2 doses of IV iron, unit of PRBC transfusion to recheck the is pending Leukocytosis, related to C. diff colitis infection with sepsis, left ankle pseudomonas - by mouth Flagyl and IV cefepime . Continue with by mouth Vanco. Wound cultures positive for Pseudomonas. White blood cell count today 18.9 Diabetes mellitus type 2, with hyperglycemia, with nonhealing ulcers plan as above Nonhealing pressure ulcer, patient is following with wound care, continue with current wound care recommendations. Positive pseudomonas, IV antibiotics Renato glabrata UTI, treated with Vfend, unrelated to indwelling catheter. -Sinus tachycardia, increased dose of Toprol, patient on telemetry, appreciate cardiology consultation. Acute mild CHF, EF 55-60%. May be diastolic dysfunction BNP 12,100. -DVT prophylaxis, ambulation as tolerated, subcu heparin, GI prophylaxis Protonix, Carafate Objective - Vital Signs Vital signs: Vital Signs Temp 98.8 F 10/20/20 08:00 Pulse 105 H 10/20/20 08:00 Resp 16 10/20/20 08:00 BP 132/67 10/20/20 08:00 Pulse Ox 92 L 10/20/20 08:55 Intake & Output 10/19/20 10/20/20 10/20/20 18:59 06:59 18:59 Output Total 800 501 Balance -800 -501 Weight 66.769 kg Output: Urine 800 500 Stool 1 Other: Voiding Method Indwelling Catheter Indwelling Catheter # Bowel Movements 1 - Labs CBC & Chem 7: 10/20/20 04:37 10/20/20 04:37 Labs: Abnormal Lab Results - Last 24 Hours (Table) 10/19/20 10/19/20 10/20/20 Range/Units 16:40 20:22 02:18 WBC (4.50-10.00) X 10*3/uL RBC (4.10-5.20) X 10*6/uL Hgb (12.0-15.0) g/dL Hct (37.2-46.3) % MCHC (32.0-37.0) g/dL RDW (11.5-14.5) % Plt Count (140-440) X 10*3/uL MPV (9.5-12.2) fL Chloride (96-109) mmol/L Carbon Dioxide (21.6-31.8) mmol/L BUN (9.0-27.0) mg/dL Est GFR (CKD-EPI)AfAm (60.0-200.0) Est GFR (CKD-EPI)NonAf (60.0-200.0) Glucose (70-110) mg/dL POC Glucose (mg/dL) 268 H 225 H 244 H (75-99) mg/dL Calcium (8.7-10.3) mg/dL 10/20/20 10/20/20 10/20/20 Range/Units 04:37 04:37 07:05 WBC 11.82 H (4.50-10.00) X 10*3/uL RBC 2.93 L (4.10-5.20) X 10*6/uL Hgb 8.4 L (12.0-15.0) g/dL Hct 27.7 L (37.2-46.3) % MCHC 30.3 L (32.0-37.0) g/dL RDW 16.4 H (11.5-14.5) % Plt Count 497 H (140-440) X 10*3/uL MPV 9.0 L (9.5-12.2) fL Chloride 113 H (96-109) mmol/L Carbon Dioxide 18.1 L (21.6-31.8) mmol/L BUN 30.0 H (9.0-27.0) mg/dL Est GFR (CKD-EPI)AfAm 39.4 L (60.0-200.0) Est GFR (CKD-EPI)NonAf 34.0 L (60.0-200.0) Glucose 284 H (70-110) mg/dL POC Glucose (mg/dL) 233 H (75-99) mg/dL Calcium 7.8 L (8.7-10.3) mg/dL 10/20/20 Range/Units 11:33 WBC (4.50-10.00) X 10*3/uL RBC (4.10-5.20) X 10*6/uL Hgb (12.0-15.0) g/dL Hct (37.2-46.3) % MCHC (32.0-37.0) g/dL RDW (11.5-14.5) % Plt Count (140-440) X 10*3/uL MPV (9.5-12.2) fL Chloride (96-109) mmol/L Carbon Dioxide (21.6-31.8) mmol/L BUN (9.0-27.0) mg/dL Est GFR (CKD-EPI)AfAm (60.0-200.0) Est GFR (CKD-EPI)NonAf (60.0-200.0) Glucose (70-110) mg/dL POC Glucose (mg/dL) 201 H (75-99) mg/dL Calcium (8.7-10.3) mg/dL
--- NOTE | 2020-10-20 13:30 | PN ---
PROGRESS NOTE DATE OF SERVICE: 10/20/2020 REASON FOR FOLLOWUP: Colitis and UTI. INTERVAL HISTORY: The patient is currently afebrile. The patient is feeling better, breathing comfortably. No chest pain, shortness of breath or cough. No abdominal pain. The patient's diarrhea has resolved. She did have some stool per the nursing staff today. PHYSICAL EXAMINATION: On examination, blood pressure 132/67, pulse of 105 temperature 98.8. She is 92% on room air. GENERAL DESCRIPTION: General description is an elderly female up in the chair in no distress. RESPIRATORY SYSTEM: Unlabored breathing. Clear to auscultation anteriorly. HEART: S1, S2. Regular rate and rhythm. ABDOMEN: Soft. No tenderness. LABS: Hemoglobin 8.4, white count 11.82, BUN of 30, creatinine 1.5. DIAGNOSTIC IMPRESSION AND PLAN: Patient with colitis with initial positive stool for Clostridium difficile that was positive. However, the patient did not respond very well to the oral vancomycin. She did well on cefepime and Flagyl. The patient's diarrhea has resolved and white count has almost normalized. Plan is to finish therapy with oral Cipro and Flagyl for about 10 days with close outpatient followup. MMODL / IJN: [id number] /
[2020-10-20] MEDS: COLLAGENASE 250 UNIT/GM OINTMENT 30 GM TUBE TOPICAL SCH (14:20)
[2020-10-20 16:08] LABS: Glucose,Whole Blood 225 mg/dL (75-99)
[2020-10-20] MEDS: DEXTROSE 5% IN WATER 1,000 ML with SODIUM BICARB (1 MEQ/ML) 150 ML IV SCH (16:35)
[2020-10-20 20:39] LABS: Glucose,Whole Blood 284 mg/dL (75-99)
[2020-10-20] MEDS: ACETAMINOPHEN TAB 325 MG TAB PO PRN (22:18)
[2020-10-20] MEDS: LATANOPROST 0.005% OPHTH DROPS 2.5 ML BTL BOTH EYES SCH (22:18)
[2020-10-21] MEDS: DEXTROSE 5% IN WATER 1,000 ML with SODIUM BICARB (1 MEQ/ML) 150 ML IV SCH (00:08)
[2020-10-21 02:40] LABS: Glucose,Whole Blood 195 mg/dL (75-99)
[2020-10-21] MEDS: CEFEPIME 1 GM in SODIUM CHLORIDE 0.9% 50 ML IVPB SCH ×2 (06:26→17:40)
[2020-10-21 06:51] LABS: Glucose,Whole Blood 239 mg/dL (75-99)
[2020-10-21] MEDS: HEPARIN SODIUM,PORCINE/PF 5,000 UNIT/0.5 ML SYRINGE SQ SCH ×2 (08:10→22:32)
[2020-10-21] MEDS: INSULIN ASPART (NovoLOG) 100 UNIT/ML VIAL SQ SCH ×7 (08:11→22:32)
[2020-10-21] MEDS: SUCRALFATE 1 GM TAB PO SCH ×3 (08:11→15:56)
[2020-10-21] MEDS: metroNIDAZOLE 500 MG TAB PO SCH ×3 (08:11→22:32)
[2020-10-21] MEDS: PANTOPRAZOLE 40 MG TABLET PO SCH ×2 (08:11→15:56)
[2020-10-21] MEDS: ATORVASTATIN 10 MG TAB PO SCH (08:11)
[2020-10-21] MEDS: CHOLECALCIFEROL 25 MCG (1000 IU) TABLET PO SCH (08:11)
[2020-10-21] MEDS: DONEPEZIL 5 MG TAB PO SCH (08:12)
[2020-10-21] MEDS: CHOLESTYRAMINE (WITH SUGAR) 4 GM PACKET PO SCH ×2 (08:12→22:29)
[2020-10-21] MEDS: METOPROLOL SUCCINATE (ER) 100 MG TAB.ER.24H PO SCH (08:12)
[2020-10-21] MEDS: OLANZapine 5 MG TAB PO SCH (08:12)
--- NOTE | 2020-10-21 09:38 | P.PN ---
Subjective Patient is seen in follow-up for acute kidney injury. Creatinine stable at 1.5 yesterday. Diarrhea improving. Maintained on bicarb drip. Nonoliguric. Blood pressure stable. No changes overnight. Vital signs are stable. General: The patient appeared well nourished and normally developed. HEENT: Head exam is unremarkable. Neck is without jugular venous distension. LUNGS: Breath sounds decreased. HEART: Rate and Rhythm are regular. ABDOMEN: Soft, no distention. EXTREMITITES: No edema. Objective - Vital Signs Vital signs: Vital Signs Temp 98.5 F 10/21/20 07:09 Pulse 99 10/21/20 07:09 Resp 17 10/21/20 07:09 BP 130/70 10/21/20 07:09 Pulse Ox 95 10/21/20 07:09 Intake & Output 10/20/20 10/21/20 10/21/20 18:59 06:59 18:59 Output Total 800 801 Balance -800 -801 Weight 66.769 kg Output: Urine 800 800 Stool 1 Other: Voiding Method Indwelling Catheter - Labs CBC & Chem 7: 10/20/20 04:37 10/20/20 04:37 Labs: Abnormal Lab Results - Last 24 Hours (Table) 10/20/20 10/20/20 10/20/20 Range/Units 04:37 11:33 16:07 Chloride 113 H (96-109) mmol/L Carbon Dioxide 18.1 L (21.6-31.8) mmol/L BUN 30.0 H (9.0-27.0) mg/dL Est GFR (CKD-EPI)AfAm 39.4 L (60.0-200.0) Est GFR (CKD-EPI)NonAf 34.0 L (60.0-200.0) Glucose 284 H (70-110) mg/dL POC Glucose (mg/dL) 201 H 225 H (75-99) mg/dL Calcium 7.8 L (8.7-10.3) mg/dL 10/20/20 10/21/20 10/21/20 Range/Units 20:37 02:38 06:49 Chloride (96-109) mmol/L Carbon Dioxide (21.6-31.8) mmol/L BUN (9.0-27.0) mg/dL Est GFR (CKD-EPI)AfAm (60.0-200.0) Est GFR (CKD-EPI)NonAf (60.0-200.0) Glucose (70-110) mg/dL POC Glucose (mg/dL) 284 H 195 H 239 H (75-99) mg/dL Calcium (8.7-10.3) mg/dL Microbiology - Last 24 Hours (Table) 10/17/20 18:00 Stool Culture - Final Stool Assessment and Plan Plan: Assessment: 1. Acute kidney injury secondary to ATN secondary to anemia and diarrhea. Creatinine 1.5 as of yesterday. Creatinine as low as 1.2 this admission. Unknown baseline. No hydronephrosis noted on CAT scan/uls. UA with trace protein. 2. C. diff colitis maintained on antibiotics per infectious disease. 3. Metabolic acidosis secondary to GI losses. On bicarb drip. 4. Acute blood loss anemia status post transfusion this admission. On Aranesp. 5. Ankle wound with culture positive for Pseudomonas on antibiotics. 6. Diabetes mellitus. 7. Chronic kidney disease stage IIIB. Creatinine as low as 1.2 this admission. Etiology is nephrosclerosis and diabetic kidney disease. Plan: Maintain bicarb drip at 80 mL an hour. Encouraged oral intake. Avoid nephrotoxins. Continue to monitor renal function and urine output. Morning labs pending.
[2020-10-21 10:54] LABS: HCT 29.8 % (37.2-46.3); HGB 9.1 g/dL (12.0-15.0); MCH 29.2 pg (27.0-32.0); MCHC 30.5 g/dL (32.0-37.0); MCV 95.5 fL (80.0-97.0); Mean Platelet Volume 9.3 fL (9.5-12.2); Platelet Count 544 X 10*3/uL (140-440); RBC 3.12 X 10*6/uL (4.10-5.20); RDW 16.6 % (11.5-14.5); WBC 10.44 X 10*3/uL (4.50-10.00)
[2020-10-21 11:33] LABS: Glucose,Whole Blood 191 mg/dL (75-99)
[2020-10-21 11:52] LABS: African American GFR (CKD) 39.4 (60.0-200.0); Anion Gap 8.7 mmol/L (4.00-12.00); BUN/Creat Ratio 17.33 Ratio (12.00-20.00); Calcium 8.2 mg/dL (8.7-10.3); Carbon Dioxide 19.3 mmol/L (21.6-31.8); Magnesium 1.7 mg/dL (1.5-2.4); Potassium 4.2 mmol/L (3.5-5.5)
[2020-10-21 12:25] LABS: Basophils # (M) 0.21 X 10*3/uL (0.00-0.10); Eosinophils # (M) 0.31 X 10*3/uL (0.04-0.35); Lymphocytes # (M) 0.52 X 10*3/uL (0.90-5.00); Metamyelocytes % 2 % (0-0); Monocytes # (M) 0.31 X 10*3/uL (0.20-1.00); Myelocytes % 3 % (0-0); Neutrophils # (M) 8.56 X 10*3/uL (2.00-8.90); Neutrophils % (M) 82 %
--- NOTE | 2020-10-21 13:37 | P.PN ---
Subjective This is a pleasant 75 years old female with multiple medical problems including diabetes mellitus, hypertension, hyperlipidemia, coronary artery disease Patients admitted with sepsis secondary to C. diff colitis involving the cecum and ascending colon per CAT scan of the abdomen. She was treated with Flagyl and cefepime and she showed interval improvement Currently she is afebrile. Her social Vitas looks stable. Glucose is 191. However her diabetes medication on hold patient continued with sliding scale The liquid diet for colonoscopy tomorrow patient is poor historian Patient Plavix was held on admission due to peptic ulcer disease, peripheral discuss with surgery team after colonoscopy to resume and Patient currently on cefepime, oral Flagyl, sodium bicarbonate drip at 80, oral Protonix to twice daily and Carafate. Objective - Vital Signs Vital signs: Vital Signs Temp 98.5 F 10/21/20 07:09 Pulse 99 10/21/20 07:09 Resp 17 10/21/20 07:09 BP 130/70 10/21/20 07:09 Pulse Ox 95 10/21/20 07:09 Intake & Output 10/20/20 10/21/20 10/21/20 18:59 06:59 18:59 Output Total 800 801 Balance -800 -801 Weight 66.769 kg Output: Urine 800 800 Stool 1 Other: Voiding Method Indwelling Catheter - Exam -GENERAL: The patient is awake, and follows commands. x3, not in any acute distress. Well developed, well nourished. HEENT: Pupils are round and equally reacting to light. EOMI. No scleral icterus. No conjunctival pallor. Normocephalic, atraumatic. No pharyngeal erythema. No thyromegaly. CARDIOVASCULAR: S1 and S2 present. No murmurs, rubs, or gallops. PULMONARY: Chest is clear to auscultation, no wheezing or crackles. ABDOMEN: Soft, nontender, nondistended, normoactive bowel sounds. No palpable organomegaly. MUSCULOSKELETAL: No joint swelling or deformity. EXTREMITIES: No cyanosis, clubbing, or pedal edema. NEUROLOGICAL: Gross neurological examination did not reveal any focal deficits. SKIN: No rashes. no petechiae. - Labs CBC & Chem 7: 10/21/20 07:44 10/21/20 07:44 Labs: Abnormal Lab Results - Last 24 Hours (Table) 10/20/20 10/20/20 10/21/20 Range/Units 16:07 20:37 02:38 WBC (4.50-10.00) X 10*3/uL RBC (4.10-5.20) X 10*6/uL Hgb (12.0-15.0) g/dL Hct (37.2-46.3) % MCHC (32.0-37.0) g/dL RDW (11.5-14.5) % Plt Count (140-440) X 10*3/uL Plt Count Comment MPV (9.5-12.2) fL Metamyelocytes % (0-0) % Myelocytes % (0-0) % Lymphocytes # (Manual) (0.90-5.00) X 10*3/uL Basophils # (Manual) (0.00-0.10) X 10*3/uL Chloride (96-109) mmol/L Carbon Dioxide (21.6-31.8) mmol/L Est GFR (CKD-EPI)AfAm (60.0-200.0) Est GFR (CKD-EPI)NonAf (60.0-200.0) Glucose (70-110) mg/dL POC Glucose (mg/dL) 225 H 284 H 195 H (75-99) mg/dL Calcium (8.7-10.3) mg/dL 10/21/20 10/21/20 10/21/20 Range/Units 06:49 07:44 07:44 WBC 10.44 H (4.50-10.00) X 10*3/uL RBC 3.12 L (4.10-5.20) X 10*6/uL Hgb 9.1 L (12.0-15.0) g/dL Hct 29.8 L (37.2-46.3) % MCHC 30.5 L (32.0-37.0) g/dL RDW 16.6 H (11.5-14.5) % Plt Count 544 H (140-440) X 10*3/uL Plt Count Comment INCREASED A MPV 9.3 L (9.5-12.2) fL Metamyelocytes % 2 H (0-0) % Myelocytes % 3 H (0-0) % Lymphocytes # (Manual) 0.52 L (0.90-5.00) X 10*3/uL Basophils # (Manual) 0.21 H (0.00-0.10) X 10*3/uL Chloride 111 H (96-109) mmol/L Carbon Dioxide 19.3 L (21.6-31.8) mmol/L Est GFR (CKD-EPI)AfAm 39.4 L (60.0-200.0) Est GFR (CKD-EPI)NonAf 34.0 L (60.0-200.0) Glucose 230 H (70-110) mg/dL POC Glucose (mg/dL) 239 H (75-99) mg/dL Calcium 8.2 L (8.7-10.3) mg/dL 10/21/20 Range/Units 11:31 WBC (4.50-10.00) X 10*3/uL RBC (4.10-5.20) X 10*6/uL Hgb (12.0-15.0) g/dL Hct (37.2-46.3) % MCHC (32.0-37.0) g/dL RDW (11.5-14.5) % Plt Count (140-440) X 10*3/uL Plt Count Comment MPV (9.5-12.2) fL Metamyelocytes % (0-0) % Myelocytes % (0-0) % Lymphocytes # (Manual) (0.90-5.00) X 10*3/uL Basophils # (Manual) (0.00-0.10) X 10*3/uL Chloride (96-109) mmol/L Carbon Dioxide (21.6-31.8) mmol/L Est GFR (CKD-EPI)AfAm (60.0-200.0) Est GFR (CKD-EPI)NonAf (60.0-200.0) Glucose (70-110) mg/dL POC Glucose (mg/dL) 191 H (75-99) mg/dL Calcium (8.7-10.3) mg/dL Microbiology - Last 24 Hours (Table) 10/17/20 18:00 Stool Culture - Final Stool Assessment and Plan Assessment: C. diff colitis, improving Ascending and cecal colitis, could be related to significant infection. Needs colonoscopy To call surgical disease with bleeding, controlled Diabetes mellitus Hypertension Hyperlipidemia History of coronary artery disease at this post stenting Plan: This is a pleasant 75 years old female who presents with C. diff colitis, patient infection responded well to treatment however because of her ascending colitis surgery team recommended colonoscopy tomorrow Surgical team also did EGD on 10/13 showing peptic ulcer with bleeding, some gastr itis. They recommended to hold Plavix for 5-7 days. Plavix supposed to be resumed on 10/21 however we'll discuss with surgery team to resume it after colonoscopy since she is going for procedure Continue with antibiotics as per ID team Bicarb drip per [employer] Continue with Protonix twice a day and Carafate Monitored glucose, keep holding diabetes medication pills and continue with insulin sliding scale Labs and medication were reviewed.. Continue same treatment. Continue with symptomatic treatment. Resume home medication. Monitor lytes and vitals. DVT and GI prophylaxis. Further recommendationsas per clinical course of the patient DVT prophylaxis: Subcutaneous heparin GI Prophylaxis: Ppi PT/OT: Recommended rehab however patient's family wants to take home rather than rehab Prognosis is guarded
[2020-10-21] MEDS ORDERED: POLYETHYLENE GLYCOL LYTES SOLN 4,000 ML SOLN.RECON PO ONE (14:24)
[2020-10-21] MEDS: SODIUM BICARBONATE TAB 650 MG TAB PO SCH ×2 (14:59→22:32)
[2020-10-21] MEDS: SODIUM CHLORIDE 0.9% 1,000 ML IV SCH (14:59)
[2020-10-21] MEDS: COLLAGENASE 250 UNIT/GM OINTMENT 30 GM TUBE TOPICAL SCH (14:59)
[2020-10-21] MEDS: ONDANSETRON 4 MG/2 ML VIAL IVP PRN (15:56)
[2020-10-21 17:00] LABS: Glucose,Whole Blood 212 mg/dL (75-99)
--- NOTE | 2020-10-21 20:10 | PN ---
PROGRESS NOTE DATE OF SERVICE: 10/21/2020 REASON FOR FOLLOWUP: Colitis. INTERVAL COURSE: The patient is currently afebrile. The patient is feeling better. Breathing comfortably. No chest pain, shortness of breath or cough. No abdominal pain. No worsening diarrhea. PHYSICAL EXAMINATION: Blood pressure 157/78 with a pulse of 100, temperature 98.8, she is 96%. General description is an elderly female lying in bed in no distress. Respiratory system unlabored breathing. Lungs clear to auscultation anteriorly. Heart S1, S2. Regular rate and rhythm. Abdomen soft. LABS: White count 10.44, BUN of 26, creatinine 1.5. DIAGNOSTIC IMPRESSION AND PLAN: Patient with colitis. Initial concern for C diff. Did not respond very well to the oral vancomycin. Did well on cefepime and Flagyl. Patient to finish therapy with oral Cipro and Flagyl. Close outpatient followup. Continue supportive care. MMODL / IJN: [id number] /
[2020-10-21 21:06] LABS: Glucose,Whole Blood 156 mg/dL (75-99)
[2020-10-21] MEDS: LATANOPROST 0.005% OPHTH DROPS 2.5 ML BTL BOTH EYES SCH (22:33)
[2020-10-22] MEDS: SODIUM CHLORIDE 0.9% 1,000 ML IV SCH ×2 (01:58→16:23)
[2020-10-22 02:25] LABS: Glucose,Whole Blood 117 mg/dL (75-99)
[2020-10-22] MEDS: CEFEPIME 1 GM in SODIUM CHLORIDE 0.9% 50 ML IVPB SCH ×2 (05:26→17:37)
[2020-10-22 06:50] LABS: Glucose,Whole Blood 168 mg/dL (75-99)
[2020-10-22] MEDS: INSULIN ASPART (NovoLOG) 100 UNIT/ML VIAL SQ SCH ×7 (06:58→21:41)
[2020-10-22] MEDS: ATORVASTATIN 10 MG TAB PO SCH (08:07)
[2020-10-22] MEDS: metroNIDAZOLE 500 MG TAB PO SCH ×3 (08:07→21:39)
[2020-10-22] MEDS: METOPROLOL SUCCINATE (ER) 100 MG TAB.ER.24H PO SCH (08:07)
[2020-10-22] MEDS: SUCRALFATE 1 GM TAB PO SCH ×3 (08:07→16:23)
[2020-10-22] MEDS: OLANZapine 5 MG TAB PO SCH (08:07)
[2020-10-22] MEDS: DONEPEZIL 5 MG TAB PO SCH (08:07)
[2020-10-22] MEDS: PANTOPRAZOLE 40 MG TABLET PO SCH ×2 (08:07→16:23)
[2020-10-22] MEDS: SODIUM BICARBONATE TAB 650 MG TAB PO SCH ×2 (08:07→21:39)
[2020-10-22] MEDS: CHOLECALCIFEROL 25 MCG (1000 IU) TABLET PO SCH (08:07)
[2020-10-22] MEDS: HEPARIN SODIUM,PORCINE/PF 5,000 UNIT/0.5 ML SYRINGE SQ SCH ×2 (08:08→21:39)
[2020-10-22] MEDS: COLLAGENASE 250 UNIT/GM OINTMENT 30 GM TUBE TOPICAL SCH (08:08)
[2020-10-22] MEDS: CHOLESTYRAMINE (WITH SUGAR) 4 GM PACKET PO SCH ×2 (10:00→21:40)
[2020-10-22] MEDS ORDERED: IV FLUID CONTINUATION 1,000 ML IV ONE (11:41)
[2020-10-22 11:46] LABS: African American GFR (CKD) 46.8 (60.0-200.0); Anion Gap 10.3 mmol/L (4.00-12.00); BUN/Creat Ratio 13.85 Ratio (12.00-20.00); Calcium 8.4 mg/dL (8.7-10.3); Carbon Dioxide 18.7 mmol/L (21.6-31.8); Magnesium 1.7 mg/dL (1.5-2.4); Non-African American GFR(CKD) 40.4 (60.0-200.0); Potassium 4.2 mmol/L (3.5-5.5)
--- NOTE | 2020-10-22 12:02 | P.PN ---
Subjective Progress Note Date: 10/22/20 CHIEF COMPLAINT: Acute blood loss anemia HISTORY OF PRESENT ILLNESS: The patient is a 75-year-old female who presented with C. diff colitis and acute blood loss anemia. Family bedside reported addit ional episodes of bleeding in the last few days. ROS: No reports of nausea and vomiting. No fevers or chills. No productive sputum. Patient speaks Romanian. PHYSICAL EXAM: VITAL SIGNS: Reviewed CONSTITUTIONAL: Well developed and in no acute distress. EYES: Conjuctivae without sclera icterus. Extraocular movements grossly intact. HEAD, EARS, NOSE, THROAT: Moist buccal mucosa. Head is atraumatic, normocephalic. Hears conversational speech. No nasal drainage. NECK: No gross thyroidomegaly. RESPIRATORY: Non-labored respirations and equal bilateral excursions. CARDIOVASCULAR: Palpable 2+ radial pulses. ABDOMEN: No peritonitis. MUSCULOSKELETAL: No gross deformity of the lower extremities noted. No clubbing. No cyanosis. SKIN: Good skin turgor. Well perfused. NEUROLOGIC: Cranial nerves II through XII grossly intact. No focal or lateralizing signs. CLINICAL LABS: Reviewed. White blood cell count elevated over over 10,000 with declining trend the last few days. Hemoglobin 8.5-9.0 ASSESSMENT: 1. C. diff colitis 2. Large duodenal ulcer 3. Sepsis due to colitis 4. Acute blood loss anemia. PLAN: 1. Hold Plavix prior to additional endoscopy 2. Patient has history of large adenoma of the colon including with recent anemia. We'll proceed with colonoscopy as she is more stable. Objective - Vital Signs Vital signs: Vital Signs Temp 98.6 F 10/22/20 07:29 Pulse 107 H 10/22/20 07:29 Resp 18 10/22/20 07:29 BP 134/69 10/22/20 07:29 Pulse Ox 94 L 10/22/20 07:29 Intake & Output 10/21/20 10/22/20 10/22/20 18:59 06:59 18:59 Output Total 700 850 Balance -700 -850 Output: Urine 700 850 Other: Voiding Method Indwelling Catheter - Labs CBC & Chem 7: 10/21/20 07:44 10/22/20 06:49 Labs: Abnormal Lab Results - Last 24 Hours (Table) 08/17/21 08/17/21 08/17/21 Range/Units 07:44 07:44 11:31 WBC 10.44 H (4.50-10.00) X 10*3/uL RBC 3.12 L (4.10-5.20) X 10*6/uL Hgb 9.1 L (12.0-15.0) g/dL Hct 29.8 L (37.2-46.3) % MCHC 30.5 L (32.0-37.0) g/dL RDW 16.6 H (11.5-14.5) % Plt Count 544 H (140-440) X 10*3/uL Plt Count Comment INCREASED A MPV 9.3 L (9.5-12.2) fL Metamyelocytes % 2 H (0-0) % Myelocytes % 3 H (0-0) % Lymphocytes # (Manual) 0.52 L (0.90-5.00) X 10*3/uL Basophils # (Manual) 0.21 H (0.00-0.10) X 10*3/uL Chloride 111 H (96-109) mmol/L Carbon Dioxide 19.3 L (21.6-31.8) mmol/L Est GFR (CKD-EPI)AfAm 39.4 L (60.0-200.0) Est GFR (CKD-EPI)NonAf 34.0 L (60.0-200.0) Glucose 230 H (70-110) mg/dL POC Glucose (mg/dL) 191 H (75-99) mg/dL Calcium 8.2 L (8.7-10.3) mg/dL 10/21/20 10/21/20 10/22/20 Range/Units 16:56 21:05 02:24 WBC (4.50-10.00) X 10*3/uL RBC (4.10-5.20) X 10*6/uL Hgb (12.0-15.0) g/dL Hct (37.2-46.3) % MCHC (32.0-37.0) g/dL RDW (11.5-14.5) % Plt Count (140-440) X 10*3/uL Plt Count Comment MPV (9.5-12.2) fL Metamyelocytes % (0-0) % Myelocytes % (0-0) % Lymphocytes # (Manual) (0.90-5.00) X 10*3/uL Basophils # (Manual) (0.00-0.10) X 10*3/uL Chloride (96-109) mmol/L Carbon Dioxide (21.6-31.8) mmol/L Est GFR (CKD-EPI)AfAm (60.0-200.0) Est GFR (CKD-EPI)NonAf (60.0-200.0) Glucose (70-110) mg/dL POC Glucose (mg/dL) 212 H 156 H 117 H (75-99) mg/dL Calcium (8.7-10.3) mg/dL 10/22/20 Range/Units 06:48 WBC (4.50-10.00) X 10*3/uL RBC (4.10-5.20) X 10*6/uL Hgb (12.0-15.0) g/dL Hct (37.2-46.3) % MCHC (32.0-37.0) g/dL RDW (11.5-14.5) % Plt Count (140-440) X 10*3/uL Plt Count Comment MPV (9.5-12.2) fL Metamyelocytes % (0-0) % Myelocytes % (0-0) % Lymphocytes # (Manual) (0.90-5.00) X 10*3/uL Basophils # (Manual) (0.00-0.10) X 10*3/uL Chloride (96-109) mmol/L Carbon Dioxide (21.6-31.8) mmol/L Est GFR (CKD-EPI)AfAm (60.0-200.0) Est GFR (CKD-EPI)NonAf (60.0-200.0) Glucose (70-110) mg/dL POC Glucose (mg/dL) 168 H (75-99) mg/dL Calcium (8.7-10.3) mg/dL Microbiology - Last 24 Hours (Table) 10/17/20 18:00 Stool Culture - Final Stool Assessment and Plan (1) C. difficile colitis Current Visit: Yes Status: Acute Code(s): A04.72 - ENTEROCOLITIS D/T CLOSTRIDIUM DIFFICILE, NOT SPCF RECUR SNOMED Code(s): 439450696 (2) Sepsis Current Visit: Yes Status: Acute Code(s): A41.9 - SEPSIS, UNSPECIFIED ORGANISM SNOMED Code(s): 33204540 (3) Fever Current Visit: Yes Status: Acute Code(s): R50.9 - FEVER, UNSPECIFIED SNOMED Code(s): 540819632 (4) CADE (acute kidney injury) Current Visit: No Status: Acute Code(s): N17.9 - ACUTE KIDNEY FAILURE, UNSPECIFIED SNOMED Code(s): 07355858 (5) Anemia Current Visit: No Status: Acute Code(s): D64.9 - ANEMIA, UNSPECIFIED SNOMED Code(s): 309361354 (6) Poorly controlled type 2 diabetes mellitus Current Visit: Yes Status: Acute Code(s): E11.65 - TYPE 2 DIABETES MELLITUS WITH HYPERGLYCEMIA SNOMED Code(s): 43288901 (7) Hyperglycemia Current Visit: Yes Status: Acute Code(s): R73.9 - HYPERGLYCEMIA, UNSPECIFIED SNOMED Code(s): 05707895 (8) Hyperglycemia due to type 2 diabetes mellitus Current Visit: Yes Status: Acute Code(s): E11.65 - TYPE 2 DIABETES MELLITUS WITH HYPERGLYCEMIA SNOMED Code(s): 279569460020303
--- NOTE | 2020-10-22 12:05 | P.PCN ---
Date of Procedure: 10/22/20 Description of Procedure: PREOPERATIVE DIAGNOSIS: Acute blood loss anemia History of blood transfusion History of large colon adenoma History of C. diff colitis POSTOPERATIVE DIAGNOSIS: Acute blood loss anemia History of blood transfusion History of large colon adenoma History of C. diff colitis OPERATION: Colonoscopy to the cecum, ileocecal valve and appendiceal orifice. SURGEON: Lisa Arreola MD. ANESTHESIA: MAC. INDICATIONS: The patient is a 75-year-old female with personal history of large colon adenoma and recently pupils anemia. Lower endoscopy was offered she had an persistent anemia following treatment for duodenal ulcer. Lower endoscopy. Her for diagnostic and therapeutic management. Benefits and risks were described and informed consent was obtained. DESCRIPTION OF PROCEDURE: The patient had undergone Sutab prep. The patient had been brought into the operating room and laid in the left lateral decubitus position. After adequate intravenous sedation, the rectum was examined with 2% lidocaine jelly. No external hemorrhoids were encountered. The rectal tone was within normal limits. No lesions were palpated in the rectal vault. An Olympus colonoscope was advanced until the cecum, ileocecal valve and appendiceal orifice were clearly viewed. The prep was fair. No scattered diverticulosis was encountered. No colonic polyps were found. Pancolitis identified including the sigmoid colon. Retroflexion of the scope demonstrated grade 1 internal hemorrhoids without active bleeding or inflammation. The colon was desufflated. The patient had tolerated the procedure well. Withdrawal time was over 6 minutes. FINDINGS: Aronchick preparation quality scale 3 (1-5) Internal hemorrhoids, grade 1 No external prolapsed hemorrhoids. No arteriovenous malformations. No adenomatous polyps. Sigmoid colitis with stool cultures obtained for repeat C. diff RECOMMENDATIONS: 1. No recurrent large adenomas identified 2. No active bleeding 3. May restart Plavix. 4. Patient stable for discharge from surgical standpoint 5. Repeat stool culture sent for C. diff
[2020-10-22 12:20] LABS: Glucose,Whole Blood 133 mg/dL (75-99)
--- NOTE | 2020-10-22 15:02 | PN ---
PROGRESS NOTE DATE OF SERVICE: 10/22/2020 REASON FOR FOLLOWUP: 1. Colitis. 2. UTI. INTERVAL HISTORY: The patient is afebrile. The patient is currently breathing comfortably. Waiting for the colonoscopy , loose stools from the prepno vomiting. PHYSICAL EXAMINATION: On examination, blood pressure 134/59, pulse 90, temperature 98 GENERAL DESCRIPTION: General description is an elderly female lying in bed in no distress. RESPIRATORY SYSTEM: Unlabored breathing. Clear to auscultation anteriorly. HEART: S1, S2. Regular rate and rhythm. ABDOMEN: Soft. No tenderness. LABS: White count was 10.4 as of yesterday. BUN of 15, creatinine 1.0. DIAGNOSTIC IMPRESSION AND PLAN: Patient admitted to hospital with diarrhea with concern for c diff colitis on admission. However, the patient clinically did not respond to the vancomycin. She did well after she was switched over to cefepime and Flagyl, and plan is to finish therapy with oral Cipro and Flagyl for another week with close outpatient followup. MMODL / IJN: [id number] / INES
[2020-10-22 16:48] LABS: Glucose,Whole Blood 164 mg/dL (75-99)
--- NOTE | 2020-10-22 17:48 | PN ---
PROGRESS NOTE Patient is seen for followup for acute kidney injury. Her renal function is currently improving. Patient is maintained on IV fluids. On examination today, blood pressure 134/59, heart rate 107 per minute. She is afebrile. EXAMINATION OF THE HEART: S1 and S2. EXAMINATION OF LUNGS: Decreased breath sounds at the bases. ABDOMEN: Soft, nontender. LOWER EXTREMITIES: Examination of lower extremities shows no significant edema. 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 Labs show sodium 137, potassium 4.2, chloride 108. CO2 is 18.7. Creatinine 1.3. ASSESSMENT: 1. Acute kidney, currently improved significantly with creatinine down to 1.3 now. Patient is maintained on IV fluids. Denies any shortness of breath. No evidence of obstruction on ultrasound. UA shows trace protein. 2. Clostridium difficile colitis, maintained on antibiotics. 3. Acute blood loss anemia, status post transfusion. Maintained on Aranesp. 4. Ankle wound with culture positive for Pseudomonas, maintained on antibiotics. 5. Chronic kidney disease stage IIIB. Creatinine 1.3 this admission. Etiology nephrosclerosis, diabetic kidney disease. PLAN: Encourage increased oral intake. Continue with oral sodium bicarb. Once patient is eating, we can discontinue the IV fluids. MMODL / IJN: [id number] /
[2020-10-22 20:35] LABS: Glucose,Whole Blood 161 mg/dL (75-99)
[2020-10-22] MEDS: ACETAMINOPHEN TAB 325 MG TAB PO PRN (21:39)
[2020-10-22] MEDS: LATANOPROST 0.005% OPHTH DROPS 2.5 ML BTL BOTH EYES SCH (21:41)
--- NOTE | 2020-10-22 21:43 | P.PN ---
Subjective This is a pleasant 75 years old female with multiple medical problems including diabetes mellitus, hypertension, hyperlipidemia, coronary artery disease Patients admitted with sepsis secondary to C. diff colitis involving the cecum and ascending colon per CAT scan of the abdomen. She was treated with Flagyl and cefepime and she showed interval improvement Currently she is afebrile. Her social Vitas looks stable. Glucose is 191. However her diabetes medication on hold patient continued with sliding scale The liquid diet for colonoscopy tomorrow patient is poor historian Patient Plavix was held on admission due to peptic ulcer disease, peripheral discuss with surgery team after colonoscopy to resume and Patient currently on cefepime, oral Flagyl, sodium bicarbonate drip at 80, oral Protonix to twice daily and Carafate. 10/22/2020 Patient discussed the case with the daughter Jazmín at bedside, she states that her mother is back to her mental baseline although she is lying in bed most of the time looks lethargic but she does not speaks Latvian very well although she can understand some Latvian per daughter. But again she is back to her mental baseline per daughter. Patient has history of dementia Patient denies any specific complaint. Hemodynamically stable. Today she underwent colonoscopy which showed no active bleeding, nor recurrent adenoma and surgery team cleared the patient for discharge and to resume her Plavix which is started tomorrow. Also repeat C. diff tests came back negative. No diarrhea or abdominal pain or nausea vomiting. Patient was on liquid diet and nothing by mouth today, will resume diet tonight. Patient will be discharged on oral antibiotics for 1 week After lengthy discussion with the daughter Jazmín including stopping her Actos and Amaryl upon discharge and continue with sliding scale, Jazmín told me she is aware of insulin injection and sliding scale as she is diabetic herself on insulin. Also I recommended that she follow up with Dr. Mccauley upon discharge and her PCP as well in one week and she agrees. I explained to the daughter and she understands last that her mother is at risk of recurrent infection and hospital readmission given her multiple medical conditions. Possible discharge in 24-48 hours Objective - Vital Signs Vital signs: Vital Signs Temp 98.6 F 10/22/20 07:29 Pulse 107 H 10/22/20 07:29 Resp 18 10/22/20 07:29 BP 134/69 10/22/20 07:29 Pulse Ox 94 L 10/22/20 07:29 Intake & Output 10/21/20 10/22/20 10/22/20 18:59 06:59 18:59 Intake Total 800 Output Total 700 850 Balance -700 -850 800 Intake: IV 200 Intake, IV Titration 600 Amount Sodium Chloride 0.9% 1, 600 000 ml @ 75 mls/hr IV . [id number] [facility] Rx#:[id number] Output: Urine 700 850 Other: Voiding Method Indwelling Catheter Indwelling Catheter - Exam -GENERAL: The patient is awake, and follows commands. x3, not in any acute distress. Well developed, well nourished. HEENT: Pupils are round and equally reacting to light. EOMI. No scleral icterus. No conjunctival pallor. Normocephalic, atraumatic. No pharyngeal erythema. No thyromegaly. CARDIOVASCULAR: S1 and S2 present. No murmurs, rubs, or gallops. PULMONARY: Chest is clear to auscultation, no wheezing or crackles. ABDOMEN: Soft, nontender, nondistended, normoactive bowel sounds. No palpable organomegaly. MUSCULOSKELETAL: No joint swelling or deformity. EXTREMITIES: No cyanosis, clubbing, or pedal edema. NEUROLOGICAL: Gross neurological examination did not reveal any focal deficits. SKIN: No rashes. no petechiae. - Labs CBC & Chem 7: 10/21/20 07:44 10/22/20 06:49 Labs: Abnormal Lab Results - Last 24 Hours (Table) 10/21/20 10/21/20 10/22/20 Range/Units 16:56 21:05 02:24 Carbon Dioxide (21.6-31.8) mmol/L Est GFR (CKD-EPI)AfAm (60.0-200.0) Est GFR (CKD-EPI)NonAf (60.0-200.0) Glucose (70-110) mg/dL POC Glucose (mg/dL) 212 H 156 H 117 H (75-99) mg/dL Calcium (8.7-10.3) mg/dL 10/22/20 10/22/20 10/22/20 Range/Units 06:48 06:49 12:15 Carbon Dioxide 18.7 L (21.6-31.8) mmol/L Est GFR (CKD-EPI)AfAm 46.8 L (60.0-200.0) Est GFR (CKD-EPI)NonAf 40.4 L (60.0-200.0) Glucose 156 H (70-110) mg/dL POC Glucose (mg/dL) 168 H 133 H (75-99) mg/dL Calcium 8.4 L (8.7-10.3) mg/dL Microbiology - Last 24 Hours (Table) 10/17/20 18:00 Stool Culture - Final Stool Assessment and Plan Assessment: C. diff colitis, resolved Ascending and cecal colitis, could be related to significant infection. colonoscopy, no active bleeding, no adenoma Acute kidney injury, improved Pressure ulcer Diabetes mellitus, with hypoglycemia Hypertension Hyperlipidemia History of coronary artery disease at this post stenting Plan: This is a pleasant 75 years old female who presents with C. diff colitis, patient infection responded well to treatment however because of her ascending colitis surgery team recommended colonoscopy tomorrow Surgical team also did EGD on 10/13 showing peptic ulcer with bleeding, some gastritis. Resume Plavix. Colonoscopy is unremarkable. Continue with antibiotics as per ID team. Discharge/short course of oral a ntibiotics per ID team Hazel rojass per disbursing agent Continue with Protonix twice a day and Carafate Monitored glucose, keep holding diabetes medication pills and continue with insulin sliding scale. Daughter understand and agrees. Instructed the daughter to monitor her glucose 4 times a day and to call 911 if her glucose less than 70 or more than 400 and she agrees Labs and medication were reviewed.. Continue same treatment. Continue with symptomatic treatment. Resume home medication. Monitor lytes and vitals. DVT and GI prophylaxis. Further recommendations as per clinical course of the patient DVT prophylaxis: Subcutaneous heparin GI Prophylaxis: Ppi PT/OT: Recommended rehab however patient's family wants to take home rather than rehab Prognosis is guarded
[2020-10-23 02:49] LABS: Glucose,Whole Blood 244 mg/dL (75-99)
[2020-10-23] MEDS: SODIUM CHLORIDE 0.9% 1,000 ML IV SCH (06:17)
[2020-10-23] MEDS: CEFEPIME 1 GM in SODIUM CHLORIDE 0.9% 50 ML IVPB SCH (06:18)
[2020-10-23 07:07] LABS: Glucose,Whole Blood 188 mg/dL (75-99)
[2020-10-23] MEDS: ATORVASTATIN 10 MG TAB PO SCH (08:09)
[2020-10-23] MEDS: DONEPEZIL 5 MG TAB PO SCH (08:09)
[2020-10-23] MEDS: SUCRALFATE 1 GM TAB PO SCH ×2 (08:09→12:21)
[2020-10-23] MEDS: SODIUM BICARBONATE TAB 650 MG TAB PO SCH (08:09)
[2020-10-23] MEDS: CHOLESTYRAMINE (WITH SUGAR) 4 GM PACKET PO SCH (08:09)
[2020-10-23] MEDS: OLANZapine 5 MG TAB PO SCH (08:09)
[2020-10-23] MEDS: metroNIDAZOLE 500 MG TAB PO SCH ×2 (08:09→15:49)
[2020-10-23] MEDS: CHOLECALCIFEROL 25 MCG (1000 IU) TABLET PO SCH (08:09)
[2020-10-23] MEDS: HEPARIN SODIUM,PORCINE/PF 5,000 UNIT/0.5 ML SYRINGE SQ SCH (08:09)
[2020-10-23] MEDS: PANTOPRAZOLE 40 MG TABLET PO SCH (08:09)
[2020-10-23] MEDS: INSULIN ASPART (NovoLOG) 100 UNIT/ML VIAL SQ SCH ×4 (08:10→12:21)
[2020-10-23] MEDS: METOPROLOL SUCCINATE (ER) 100 MG TAB.ER.24H PO SCH (08:10)
[2020-10-23] MEDS: COLLAGENASE 250 UNIT/GM OINTMENT 30 GM TUBE TOPICAL SCH (08:19)
[2020-10-23] MEDS ORDERED: CLOPIDOGREL 75 MG TAB PO SCH (09:00)
[2020-10-23 11:35] LABS: Glucose,Whole Blood 152 mg/dL (75-99)
--- NOTE | 2020-10-23 13:05 | US ---
EXAMINATION TYPE: US venous doppler duplex LE DATE OF EXAM: 10/23/2020 10:46 AM COMPARISON: NONE CLINICAL HISTORY: Rule out DVT. Bilateral leg swelling Exam done portable. SIDE PERFORMED: Bilateral TECHNIQUE: The lower extremity deep venous system is examined utilizing real time linear array sonog urbano with graded compression, doppler sonography and color-flow sonography. VESSELS IMAGED: Common Femoral Vein Deep Femoral Vein Greater Saphenous Vein * Femoral Vein Popliteal Vein Small Saphenous Vein * Proximal Calf Veins (* superficial vessels) Right Leg: Appears negative for DVT Left Leg: Appears negative for DVT IMPRESSION: No evidence for DVT.
[2020-10-23 14:23] VITALS: BP 113/64; PULSE 89; RESP 16; TEMP 98.9
[2020-10-23] MEDS ORDERED: CEFEPIME 2 GM in SODIUM CHLORIDE 0.9% 100 ML IVPB SCH (18:00)
--- NOTE | 2020-10-23 18:22 | PN ---
PROGRESS NOTE Patient is seen for followup for acute kidney injury, mostly prerenal and associated with urine retention. EXAMINATION: Today blood pressure 113/64, heart rate 89 per minute. Patient is afebrile. Examination of the heart S1, S2. Examination of the lungs, bilateral breath sounds are heard. Abdomen is soft, nontender. 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 LABS: No labs available from today. ASSESSMENT: 1. Acute kidney injury, prerenal, currently improved. No evidence of obstruction on ultrasound. UA shows trace protein. 2. Clostridium difficile colitis, maintained on antibiotics. 3. Acute blood loss anemia status post packed RBCs transfusion, maintained on Aranesp. 4. Ankle wound with culture positive for Pseudomonas, maintained on antibiotics. 5. Chronic kidney disease, stage 3B. Baseline creatinine around 1.3. Etiology is nephrosclerosis diabetic kidney disease. Current creatinine is lower than her previous ones from September of 2020. PLAN: Encourage increased oral intake. May continue with the sodium bicarb for now. Repeat labs. Consider a voiding trial if patient's urine retention is new. MMODL / IJN: [id number] /
--- NOTE | 2020-10-23 21:01 | P.PN ---
Subjective Progress Note Date: 10/23/20 CHIEF COMPLAINT: Acute blood loss anemia HISTORY OF PRESENT ILLNESS: The patient is a 75-year-old female who presented with C. diff colitis and acute blood loss anemia. Family is at bedside. She comp leted a colonoscopy without any tumors or active bleeding. ROS: No reports of nausea and vomiting. No fevers or chills. No productive sputum. Patient speaks Gabonese. PHYSICAL EXAM: VITAL SIGNS: Reviewed CONSTITUTIONAL: Well developed and in no acute distress. EYES: Conjuctivae without sclera icterus. Extraocular movements grossly intact. HEAD, EARS, NOSE, THROAT: Moist buccal mucosa. Head is atraumatic, normocephalic. Hears conversational speech. No nasal drainage. NECK: No gross thyroidomegaly. RESPIRATORY: Non-labored respirations and equal bilateral excursions. CARDIOVASCULAR: Palpable 2+ radial pulses. ABDOMEN: No peritonitis. MUSCULOSKELETAL: No gross deformity of the lower extremities noted. No clubbing. No cyanosis. SKIN: Good skin turgor. Well perfused. NEUROLOGIC: Cranial nerves II through XII grossly intact. No focal or lateralizing signs. CLINICAL LABS: Reviewed. C Diff negative. ASSESSMENT: 1. C. diff colitis 2. Large duodenal ulcer 3. Sepsis due to colitis 4. Acute blood loss anemia. PLAN: 1. Repeat CDiff is now negative. 2. Continue Omeprazole and Carafate for 4 weeks total treatment 3. Follow-up as outpatient. 4. Stable from a surgical standpoint for discharge once clinically stable. Objective - Vital Signs Vital signs: Vital Signs Temp 98.9 F 10/23/20 14:00 Pulse 89 10/23/20 14:00 Resp 16 10/23/20 14:00 BP 113/64 10/23/20 14:00 Pulse Ox 96 10/23/20 14:00 Intake & Output 10/23/20 10/23/20 10/24/20 06:59 18:59 06:59 Intake Total 600 Output Total 500 Balance -500 600 Weight 66.769 kg Intake: Intake, IV Titration 600 Amount Sodium Chloride 0.9% 1, 600 000 ml @ 75 mls/hr IV . [id number] [facility] Rx#:[id number] Output: Urine 500 Other: Voiding Method Indwelling Catheter Indwelling Catheter - Labs CBC & Chem 7: 10/21/20 07:44 10/22/20 06:49 Labs: Abnormal Lab Results - Last 24 Hours (Table) 10/23/20 10/23/20 10/23/20 Range/Units 02:43 06:59 11:33 POC Glucose (mg/dL) 244 H 188 H 152 H (75-99) mg/dL Assessment and Plan (1) C. difficile colitis Status: Acute Code(s): A04.72 - ENTEROCOLITIS D/T CLOSTRIDIUM DIFFICILE, NOT SPCF RECUR SNOMED Code(s): 224147337 (2) Sepsis Status: Acute Code(s): A41.9 - SEPSIS, UNSPECIFIED ORGANISM SNOMED Code(s): 00080686 (3) Fever Status: Acute Code(s): R50.9 - FEVER, UNSPECIFIED SNOMED Code(s): 635334247 (4) CADE (acute kidney injury) Status: Acute Code(s): N17.9 - ACUTE KIDNEY FAILURE, UNSPECIFIED SNOMED Code(s): 75193806 (5) Anemia Status: Acute Code(s): D64.9 - ANEMIA, UNSPECIFIED SNOMED Code(s): 805083308 (6) Poorly controlled type 2 diabetes mellitus Status: Acute Code(s): E11.65 - TYPE 2 DIABETES MELLITUS WITH HYPERGLYCEMIA SNOMED Code(s): 99495645 (7) Hyperglycemia Status: Acute Code(s): R73.9 - HYPERGLYCEMIA, UNSPECIFIED SNOMED Code(s): 86483016 (8) Hyperglycemia due to type 2 diabetes mellitus Status: Acute Code(s): E11.65 - TYPE 2 DIABETES MELLITUS WITH HYPERGLYCEMIA SNOMED Code(s): 019719399835882
--- NOTE | 2020-10-23 21:45 | P.PN ---
Progress Note - Text Progress Note Date: 10/23/20 REASON FOR FOLLOWUP: 1. Colitis. INTERVAL HISTORY: The patient remains to [facility]. The patient is currently breathing comfortably. no chestpain , no vomiting , no further diarrhea PHYSICAL EXAMINATION: On examination, blood pressure 130/50, pulse 80, temperature 98 GENERAL DESCRIPTION: General description is an elderly female lying in bed in no distress. RESPIRATORY SYSTEM: Unlabored breathing. Clear to auscultation anteriorly. HEART: S1, S2. Regular rate and rhythm. ABDOMEN: Soft. No tenderness. LABS: repeat C diff negative DIAGNOSTIC IMPRESSION AND PLAN: Patient admitted to hospital with diarrhea with concern for c diff colitis on admission. However, the patient clinically did not respond to the vancomycin. She did well after she was switched over to cefepime and Flagyl and repeat C diff is negative plan is to finish therapy with oral Cipro and Flagyl x 7 days and close outpatient followup.
--- NOTE | 2020-10-27 07:13 | P.DS ---
Providers Date of admission: 10/09/20 12:08 Attending physician: Misha Agrawal Consults: 10/09/20 15:41 Consult Physician Routine Consulting Provider: Gail Ordonez Consult Reason/Comments: Left heel wound, C. diff colitis Do you want consulting provider notified?: Yes 10/12/20 11:54 Consult Physician Routine Consulting Provider: Lisa Arreola Consult Reason/Comments: anemia, R/O GIB Do you want consulting provider notified?: Yes 10/19/20 09:17 Consult Physician Routine Consulting Provider: Mikael Wiseman Consult Reason/Comments: CADE Do you want consulting provider notified?: Yes Primary care physician: Anand Flaherty MD Hospital Course: Diagnoses: C. diff colitis, resolved Ascending and cecal colitis, related to C. diff infection. colonoscopy: no active bleeding, no adenoma Acute kidney injury, improved Stage I sacral Pressure ulcer Diabetes mellitus, with hypoglycemia. Improved her glucose is stable upon discharge Hypertension Hyperlipidemia History of coronary artery disease at this post stenting Hospital course: This is a pleasant 75 years old female with multiple medical problems including diabetes mellitus, hypertension, hyperlipidemia, coronary artery disease Patients admitted with sepsis secondary to C. diff colitis involving the cecum and ascending colon per CAT scan of the abdomen. She was treated with Flagyl and cefepime and she showed interval improvement in her diarrhea improved, no fever. Her leukocytosis improved almost to normal. No abdominal pain.On the day of discharge she was able to eat 100% of her meals during lunch. Repeat C. diff was negative. on 10/22 she underwent colonoscopy which showed no active bleeding, nor recurrent adenoma and surgery team cleared the patient for discharge and to resume her Plavix Patient has been evaluated by [facility] engineer for mild CHF and they signed off Also she is being followed by nephrology for acute kidney injury which is improved and back to her reference range upon discharge. Ultrasound of the legs was negative for DVT Patient is back to her baseline mental status confirmed to me by Dr. Noyola at bedside She will be discharged on Turner catheter and family request for her history of urinary retention and to follow up with Dr. Sebastian urologist as an outpatient Because of her hypoglycemia her home diabetes medication of Actos and Amaryl were stopped, patient and the daughter at bedside and they agree. Her glucose was controlled with NovoLog 2 units with meals plus s insulin liding-scale which was provided to the daughter upon the day discharge Physical therapist recommended subacute rehab, however her family declined and preferred to go home with family. I explained to daughter yesterday patient is high-risk for hospital readmission infection Problems and management plan were discussed with the patient and he verbalized understanding and acceptance Patient was found stable and can be discharged home however he needs follow-up as an outpatient. Patient was instructed to follow up with PCP Dr. Flaherty within one week and patient agrees Patient was instructed to follow up with [facility] engineer in 1 week With the staff interpreter Dr. Garcia on 11/18 and she/family agrees Patient was instructed to follow up with Dr. Mccauley on 11/[address] Linda on 11/07 and she/family agrees Physical exam Gen: patient is a AAOx3, no distress. Generally weak and tired CVS: S1-S2, RRR, no murmur Lungs: B/L CTA, no wheezing Abdomen: soft, no distention, no tenderness, positive bowel sounds Extremity: no leg edema or induration Time spent more than 35 minutes Patient Condition at Discharge: Fair Plan - Discharge Summary Discharge Rx Participant: Yes New Discharge Prescriptions: New Sucralfate [Carafate] 1 gm PO AC-TID #90 tab Ciprofloxacin HCl [Cipro] 500 mg PO Q12H 7 Days #14 tab Pantoprazole Sodium [Protonix] 40 mg PO BID 30 Days #60 tablet. metroNIDAZOLE [Flagyl] 500 mg PO TID 7 Days #21 tab Cholestyramine (with Sugar) [Questran Packet] 4 gm PO BID@1000,2100 5 Days #10 packet Sodium Bicarbonate Tab 650 mg PO BID 30 Days #60 tab Metoprolol Succinate (ER) [Toprol XL] 200 mg PO DAILY #60 tab.er.24h Continue Latanoprost/Pf [Latanoprost 0.005% Eye Drop] 1 drop BOTH EYES HS Collagenase [Santyl] 1 applic TOPICAL HS Clopidogrel [Plavix] 75 mg PO DAILY OLANZapine [ZyPREXA] 5 mg PO DAILY Donepezil [Aricept] 5 mg PO DAILY Cholecalciferol [Vitamin D3 (25 Mcg = 1000 Iu)] 25 mcg PO DAILY Simvastatin [Zocor] 20 mg PO DAILY Discontinued cloNIDine HCL [Catapres] 0.1 mg PO BID Pioglitazone [Actos] 30 mg PO DAILY Fluconazole [Diflucan] 100 mg PO DAILY Metoprolol Succinate (ER) [Toprol XL] 100 mg PO DAILY Glimepiride [Amaryl] 8 mg PO DAILY amLODIPine [Norvasc] 5 mg PO DAILY No Action Triamterene-Hctz 37.5-25Mg [Dyazide 37.5-25 Capsule] 1 cap PO DAILY Glimepiride [Amaryl] 8 mg PO AC-BRKFST Pioglitazone [Actos] 30 mg PO DAILY Acetaminophen Tab [Tylenol] 650 mg PO Q6H PRN PRN Reason: Mild Pain Or Fever > 100.5 Discharge Medication List Clopidogrel [Plavix] 75 mg PO DAILY 09/14/20 [History] Collagenase [Santyl] 1 applic TOPICAL HS 09/14/20 [History] Donepezil [Aricept] 5 mg PO DAILY 09/14/20 [History] Latanoprost/Pf [Latanoprost 0.005% Eye Drop] 1 drop BOTH EYES HS 09/14/20 [History] OLANZapine [ZyPREXA] 5 mg PO DAILY 09/14/20 [History] Simvastatin [Zocor] 20 mg PO DAILY 09/14/20 [History] Cholecalciferol [Vitamin D3 (25 Mcg = 1000 Iu)] 25 mcg PO DAILY 10/09/20 [History] Cholestyramine (with Sugar) [Questran Packet] 4 gm PO BID@1000,2100 5 Days #10 packet 10/23/20 [Rx] Ciprofloxacin HCl [Cipro] 500 mg PO Q12H 7 Days #14 tab 10/23/20 [Rx] Metoprolol Succinate (ER) [Toprol XL] 200 mg PO DAILY #60 tab.er.24h 10/23/20 [Rx] Pantoprazole Sodium [Protonix] 40 mg PO BID 30 Days #60 tablet. 10/23/20 [Rx] Sodium Bicarbonate Tab 650 mg PO BID 30 Days #60 tab 10/23/20 [Rx] Sucralfate [Carafate] 1 gm PO AC-TID #90 tab 10/23/20 [Rx] metroNIDAZOLE [Flagyl] 500 mg PO TID 7 Days #21 tab 10/23/20 [Rx] Acetaminophen Tab [Tylenol] 650 mg PO Q6H PRN 10/26/20 [History] Glimepiride [Amaryl] 8 mg PO AC-BRKFST 10/26/20 [History] Pioglitazone [Actos] 30 mg PO DAILY 10/26/20 [History] Triamterene-Hctz 37.5-25Mg [Dyazide 37.5-25 Capsule] 1 cap PO DAILY 10/26/20 [History] Follow up Appointment(s)/Referral(s): [facility] [Provider Group] - 1 Week (office will call with appointment date and time ) Di Garcia MD [STAFF PHYSICIAN] - 11/18/20 9:20 am (Appointment at: [address] [place] [address] [place] [id number]) [facility], [NON-STAFF] - [facility] [NON-STAFF] - As Needed (Please call to see if they have grab bars, briefs, or other medical equipment needs. ) Anand Flaherty MD [Primary Care Provider] - 1-2 days (office will call patient with appointment date and time ) Lisa Arreola MD [STAFF PHYSICIAN] - 11/06/20 Albert Cheng MD [STAFF PHYSICIAN] - 11/07/20 8:40 am ([facility]er management) [facility] [NON-STAFF] - As Needed (Please call to see if they have grab bars, briefs, or other medical equipment needs. ) Patient Instructions/Handouts: Peptic Ulcer (DC), Diet for Stomach Ulcers and Gastritis (ED), C Diff (Clostridium Difficile) Infection (ED) Activity/Diet/Wound Care/Special Instructions: Carbohydrate consistent diet 1500 kcal per day Activity is restricted until you see your doctor We recommend to monitor her glucose 4 times a day and to call 911 if her glucose less than 70 or more than 400 and she agrees. Keep results in a log book and bring it to your doctor on her appointment Date Discharge Disposition: HOME WITH HOME HEALTH SERVICES
== END 2020-10-23 16:09 | disposition home health service (06) | DRG 871 ==
LOC: EC 09:54 → 4SSUR 12:08
PROVIDERS: ADMIT Internal Medicine; ATTEND Internal Medicine
PROC: 05HA33Z Insertion of Infusion Device into Left Brachial Vein, Percutaneous Approach (ICD-10-PCS; 2020-10-10)
PROC: 0DB78ZX Excision of Stomach, Pylorus, Via Natural or Artificial Opening Endoscopic, Diagnostic (ICD-10-PCS; principal; 2020-10-13 08:05)
PROC: 30233N1 Transfusion of Nonautologous Red Blood Cells into Peripheral Vein, Percutaneous Approach (ICD-10-PCS; 2020-10-17)
PROC: 05HD33Z Insertion of Infusion Device into Right Cephalic Vein, Percutaneous Approach (ICD-10-PCS; 2020-10-20)
PROC: 05HF33Z Insertion of Infusion Device into Left Cephalic Vein, Percutaneous Approach (ICD-10-PCS; 2020-10-21)
PROC: 0DJD8ZZ Inspection of Lower Intestinal Tract, Via Natural or Artificial Opening Endoscopic (ICD-10-PCS; 2020-10-22)
DX: A41.4 Sepsis due to anaerobes (principal); L89.623 Pressure ulcer of left heel, stage 3; N17.0 Acute kidney failure with tubular necrosis; I50.31 Acute diastolic (congestive) heart failure; K26.4 Chronic or unspecified duodenal ulcer with hemorrhage; E87.2 Acidosis; I31.3 Pericardial effusion (noninflammatory); I13.0 Hypertensive heart and chronic kidney disease with heart failure and stage 1 through stage 4 chronic kidney disease, or unspecified chronic kidney disease; R18.8 Other ascites; A04.72 Enterocolitis due to Clostridium difficile, not specified as recurrent; D62 Acute posthemorrhagic anemia; K22.10 Ulcer of esophagus without bleeding; B37.49 Other urogenital candidiasis; E11.649 Type 2 diabetes mellitus with hypoglycemia without coma; L89.322 Pressure ulcer of left buttock, stage 2; D63.1 Anemia in chronic kidney disease; E11.22 Type 2 diabetes mellitus with diabetic chronic kidney disease; E11.621 Type 2 diabetes mellitus with foot ulcer; F03.90 Unspecified dementia, unspecified severity, without behavioral disturbance, psychotic disturbance, mood disturbance, and anxiety; E11.40 Type 2 diabetes mellitus with diabetic neuropathy, unspecified; L97.522 Non-pressure chronic ulcer of other part of left foot with fat layer exposed; E11.65 Type 2 diabetes mellitus with hyperglycemia; N18.32 Chronic kidney disease, stage 3b; I77.9 Disorder of arteries and arterioles, unspecified; Z20.822 Contact with and (suspected) exposure to COVID-19; K44.9 Diaphragmatic hernia without obstruction or gangrene; K29.70 Gastritis, unspecified, without bleeding; K64.8 Other hemorrhoids; K29.80 Duodenitis without bleeding; B96.5 Pseudomonas (aeruginosa) (mallei) (pseudomallei) as the cause of diseases classified elsewhere; I49.3 Ventricular premature depolarization; E78.5 Hyperlipidemia, unspecified; I08.1 Rheumatic disorders of both mitral and tricuspid valves; I25.10 Atherosclerotic heart disease of native coronary artery without angina pectoris; R33.9 Retention of urine, unspecified; Z79.02 Long term (current) use of antithrombotics/antiplatelets; Z79.84 Long term (current) use of oral hypoglycemic drugs; Z79.899 Other long term (current) drug therapy; Z95.5 Presence of coronary angioplasty implant and graft; Z87.39 Personal history of other diseases of the musculoskeletal system and connective tissue; Z98.42 Cataract extraction status, left eye; Z90.49 Acquired absence of other specified parts of digestive tract; Z87.19 Personal history of other diseases of the digestive system; Z91.81 History of falling; Z98.890 Other specified postprocedural states
CPT/HCPCS: 36410; 36415; 43239; 45378; 70450; 71045; 71046; 74176; 76770; 76937; 80048; 80053; 81001; 82728; 83540; 83550; 83605; 83735; 83880; 84439; 84443; 84481; 84484; 85025; 85027; 85610; 85730; 86850; 86900; 86901; 86920; 87045; 87046; 87070; 87075; 87077; 87086; 87186; 87205; 87324; 87635; 88305; 88342; 93005; 93306; 93970; 94760; 99285

== ENCOUNTER 2020-10-25 23:02 | Inpatient (IN) | payer MEDICARE ==
[2020-10-25 23:08] LABS: Glucose,Whole Blood 40 mg/dL (75-99)
[2020-10-25] MEDS ORDERED: SODIUM CHLORIDE 0.9% 1,000 ML IV STA (23:20)
--- NOTE | 2020-10-25 23:21 | ED ---
SOB HPI - General Stated Complaint: SOB Time Seen by Provider: 10/25/20 23:19 Source: EMS, RN notes reviewed, old records reviewed Mode of arrival: EMS Limitations: altered mental status - History of Present Illness Initial Comments: This is a 75-year-old female presented by EMS for shortness of breath. Patient has been decreased level responsiveness and history of pain from EMS and patient's prior charting Patient was found to have significantly low blood sugar MD Complaint: shortness of breath -: unknown Severity: moderate Severity scale (1-10): 7 Consistency: constant Improves With: nothing Worsens With: nothing Known History Of: congestive heart failure, diabetes Context: recent illness Associated Symptoms: nausea/vomiting Treatments Prior to Arrival: none - Related Data Home Medications Medication Instructions Recorded Confirmed Clopidogrel [Plavix] 75 mg PO DAILY 09/14/20 10/09/20 Collagenase [Santyl] 1 applic TOPICAL HS 09/14/20 10/09/20 Donepezil [Aricept] 5 mg PO DAILY 09/14/20 10/09/20 Latanoprost/Pf [Latanoprost 0.005% 1 drop BOTH EYES HS 09/14/20 10/09/20 Eye Drop] OLANZapine [ZyPREXA] 5 mg PO DAILY 09/14/20 10/09/20 Simvastatin [Zocor] 20 mg PO DAILY 09/14/20 10/09/20 Cholecalciferol [Vitamin D3 (25 25 mcg PO DAILY 10/09/20 10/09/20 Mcg = 1000 Iu)] Previous Rx's Medication Instructions Recorded Acetaminophen Tab [Tylenol] 650 mg PO Q6HR PRN tab 10/23/20 Cholestyramine (with Sugar) 4 gm PO BID@1000,2100 5 Days #10 10/23/20 [Questran Packet] packet Ciprofloxacin HCl [Cipro] 500 mg PO Q12H 7 Days #14 tab 10/23/20 INSULIN ASPART (NovoLOG) [NovoLOG 2 unit SQ AC-TID #1 vial 10/23/20 (formulary)] INSULIN ASPART (NovoLOG) [NovoLOG See Protocol SQ ACHS #1 vial 10/23/20 (formulary)] Metoprolol Succinate (ER) [Toprol 200 mg PO DAILY #60 tab.er.24h 10/23/20 XL] Pantoprazole Sodium [Protonix] 40 mg PO BID 30 Days #60 tablet.dr 10/23/20 Sodium Bicarbonate Tab 650 mg PO BID 30 Days #60 tab 10/23/20 Sucralfate [Carafate] 1 gm PO AC-TID #90 tab 10/23/20 metroNIDAZOLE [Flagyl] 500 mg PO TID 7 Days #21 tab 10/23/20 Allergies Allergy/AdvReac Type Severity Reaction Status Date / Time No Known Allergies Allergy Verified 09/19/20 08:59 Review of Systems ROS Statement: Those systems with pertinent positive or pertinent negative responses have been documented in the HPI. ROS Other: All systems not noted in ROS Statement are negative. Past Medical History Past Medical History: Coronary Artery Disease (CAD), Diabetes Mellitus, Hyperlipidemia, Hypertension History of Any Multi-Drug Resistant Organisms: None Reported Past Surgical History: Cholecystectomy, Heart Catheterization With Stent, Orthopedic Surgery Additional Past Surgical History / Comment(s): hip surgery, cataract sx, left ankle surgery 2020 Date of Last Stent Placement:: 2000 Past Psychological History: No Psychological Hx Reported Smoking Status: Never smoker Past Alcohol Use History: None Reported Past Drug Use History: None Reported General Exam Limitations: language barrier, altered mental status General appearance: alert, lethargic, in distress Head exam: Present: atraumatic, normocephalic, normal inspection Eye exam: Present: normal appearance, PERRL, EOMI. Absent: scleral icterus, conjunctival injection, periorbital swelling ENT exam: Present: normal exam, mucous membranes moist Neck exam: Present: normal inspection. Absent: tenderness, meningismus, lym phadenopathy Respiratory exam: Present: normal lung sounds bilaterally, respiratory distress, accessory muscle use, decreased breath sounds. Absent: wheezes, rales, rhonchi, stridor Cardiovascular Exam: Present: regular rate, normal rhythm, normal heart sounds. Absent: systolic murmur, diastolic murmur, rubs, gallop, clicks GI/Abdominal exam: Present: soft, normal bowel sounds. Absent: distended, tenderness, guarding, rebound, rigid Extremities exam: Present: normal inspection, full ROM, normal capillary refill. Absent: tenderness, pedal edema, joint swelling, calf tenderness Back exam: Present: normal inspection Neurological exam: Present: alert, oriented X3, CN II-XII intact Psychiatric exam: Present: normal affect, normal mood Skin exam: Present: warm, dry, intact, normal color. Absent: rash Course Vital Signs 10/25/20 10/25/20 10/26/20 23:10 23:20 00:14 Pulse Rate 98 92 Respiratory 20 20 20 Rate Blood Pressure 134/65 132/72 O2 Sat by Pulse 91 L 98 Oximetry - Reevaluation(s) Reevaluation #1: 10/26/20 00:27 Medical record is reviewed Reevaluation #2: 10/26/20 00:27 Patient shunt recurrent episodes of low blood sugar here in the ER Reevaluation #3: 10/26/20 00:27 Spoke with family regarding findings and questions have been answered - Consultations Consultation #1: Spoke with PMH who agree to admit this patient Medical Decision Making - Medical Decision Making 75 female who does have shortness of breath found to have recurrent hypoglycemia here in the ER placed on supplemental dextrose, patient also found to have CHF will admit for diuresis - Lab Data Result diagrams: 10/25/20 23:25 10/25/20 23:25 Lab Results 10/25/20 10/25/20 10/25/20 Range/Units 23:06 23:25 23:25 WBC 11.8 H (3.8-10.6) k/uL RBC 3.51 L (3.80-5.40) m/uL Hgb 10.5 L (11.4-16.0) gm/dL Hct 33.6 L (34.0-46.0) % MCV 95.8 (80.0-100.0) fL MCH 30.0 (25.0-35.0) pg MCHC 31.3 (31.0-37.0) g/dL RDW 15.9 H (11.5-15.5) % Plt Count 842 H D (150-450) k/uL MPV 7.4 Neutrophils % 72 % Lymphocytes % 17 % Monocytes % 6 % Eosinophils % 2 % Basophils % 1 % Neutrophils # 8.6 H (1.3-7.7) k/uL Lymphocytes # 2.0 (1.0-4.8) k/uL Monocytes # 0.7 (0-1.0) k/uL Eosinophils # 0.3 (0-0.7) k/uL Basophils # 0.1 (0-0.2) k/uL Hypochromasia Moderate PT 11.0 (9.0-12.0) sec INR 1.0 (<1.2) APTT 24.2 (22.0-30.0) sec Sodium (137-145) mmol/L Potassium (3.5-5.1) mmol/L Chloride (98-107) mmol/L Carbon Dioxide (22-30) mmol/L Anion Gap mmol/L BUN (7-17) mg/dL Creatinine (0.52-1.04) mg/dL Est GFR (CKD-EPI)AfAm (>60 ml/min/1.73 sqM) Est GFR (CKD-EPI)NonAf (>60 ml/min/1.73 sqM) Glucose (74-99) mg/dL POC Glucose (mg/dL) 40 L (75-99) mg/dL POC Glu [employer] ID Priscilla Neely Plasma Lactic Acid Lemuel (0.7-2.0) mmol/L Calcium (8.4-10.2) mg/dL Phosphorus (2.5-4.5) mg/dL Magnesium (1.6-2.3) mg/dL Total Bilirubin (0.2-1.3) mg/dL AST (14-36) U/L ALT (4-34) U/L Alkaline Phosphatase (38-126) U/L Creatine Kinase (30-135) U/L Troponin I (0.000-0.034) ng/mL NT-Pro-B Natriuret Pep pg/mL Total Protein (6.3-8.2) g/dL Albumin (3.5-5.0) g/dL 10/25/20 10/25/20 10/25/20 Range/Units 23:25 23:25 23:25 WBC (3.8-10.6) k/uL RBC (3.80-5.40) m/uL Hgb (11.4-16.0) gm/dL Hct (34.0-46.0) % MCV (80.0-100.0) fL MCH (25.0-35.0) pg MCHC (31.0-37.0) g/dL RDW (11.5-15.5) % Plt Count (150-450) k/uL MPV Neutrophils % % Lymphocytes % % Monocytes % % Eosinophils % % Basophils % % Neutrophils # (1.3-7.7) k/uL Lymphocytes # (1.0-4.8) k/uL Monocytes # (0-1.0) k/uL Eosinophils # (0-0.7) k/uL Basophils # (0-0.2) k/uL Hypochromasia PT (9.0-12.0) sec INR (<1.2) APTT (22.0-30.0) sec Sodium 134 L (137-145) mmol/L Potassium 4.9 (3.5-5.1) mmol/L Chloride 107 (98-107) mmol/L Carbon Dioxide 18 L (22-30) mmol/L Anion Gap 9 mmol/L BUN 19 H (7-17) mg/dL Creatinine 1.49 H (0.52-1.04) mg/dL Est GFR (CKD-EPI)AfAm 40 (>60 ml/min/1.73 sqM) Est GFR (CKD-EPI)NonAf 35 (>60 ml/min/1.73 sqM) Glucose 34 L* (74-99) mg/dL POC Glucose (mg/dL) (75-99) mg/dL POC Glu [employer] ID Plasma Lactic Acid Lemuel 1.7 (0.7-2.0) mmol/L Calcium 9.2 (8.4-10.2) mg/dL Phosphorus 3.0 (2.5-4.5) mg/dL Magnesium 1.8 (1.6-2.3) mg/dL Total Bilirubin 0.7 (0.2-1.3) mg/dL AST 45 H (14-36) U/L ALT 10 (4-34) U/L Alkaline Phosphatase 69 (38-126) U/L Creatine Kinase 43 (30-135) U/L Troponin I <0.012 (0.000-0.034) ng/mL NT-Pro-B Natriuret Pep pg/mL Total Protein 6.8 (6.3-8.2) g/dL Albumin 3.0 L (3.5-5.0) g/dL 10/25/20 Range/Units 23:25 WBC (3.8-10.6) k/uL RBC (3.80-5.40) m/uL Hgb (11.4-16.0) gm/dL Hct (34.0-46.0) % MCV (80.0-100.0) fL MCH (25.0-35.0) pg MCHC (31.0-37.0) g/dL RDW (11.5-15.5) % Plt Count (150-450) k/uL MPV Neutrophils % % Lymphocytes % % Monocytes % % Eosinophils % % Basophils % % Neutrophils # (1.3-7.7) k/uL Lymphocytes # (1.0-4.8) k/uL Monocytes # (0-1.0) k/uL Eosinophils # (0-0.7) k/uL Basophils # (0-0.2) k/uL Hypochromasia PT (9.0-12.0) sec INR (<1.2) APTT (22.0-30.0) sec Sodium (137-145) mmol/L Potassium (3.5-5.1) mmol/L Chloride (98-107) mmol/L Carbon Dioxide (22-30) mmol/L Anion Gap mmol/L BUN (7-17) mg/dL Creatinine (0.52-1.04) mg/dL Est GFR (CKD-EPI)AfAm (>60 ml/min/1.73 sqM) Est GFR (CKD-EPI)NonAf (>60 ml/min/1.73 sqM) Glucose (74-99) mg/dL POC Glucose (mg/dL) (75-99) mg/dL POC Glu [employer] ID Plasma Lactic Acid Lemuel (0.7-2.0) mmol/L Calcium (8.4-10.2) mg/dL Phosphorus (2.5-4.5) mg/dL Magnesium (1.6-2.3) mg/dL Total Bilirubin (0.2-1.3) mg/dL AST (14-36) U/L ALT (4-34) U/L Alkaline Phosphatase (38-126) U/L Creatine Kinase (30-135) U/L Troponin I (0.000-0.034) ng/mL NT-Pro-B Natriuret Pep 4070 pg/mL Total Protein (6.3-8.2) g/dL Albumin (3.5-5.0) g/dL - EKG Data -: EKG Interpreted by Me (EKG shows sinus rhythm 94, AR 114 QRS 92 QTC 485) - Radiology Data Radiology results: report reviewed (Chest x-ray showing CHF and pulmonary edema), image reviewed Critical Care Time Critical Care Time: Yes Total Critical Care Time: 31 Disposition Clinical Impression: Acute pulmonary edema, Congestive heart failure, Hypoglycemia Narrative: recurrent hypoglycemia Disposition: ADMITTED IP TO THIS [facility] Condition: Serious Is patient prescribed a controlled substance at d/c from ED?: No
[2020-10-25] MEDS ORDERED: DEXTROSE 50% SYRINGE 50 ML IVP STA (23:31)
[2020-10-25 23:55] LABS: Basophils # (A) 0.1 k/uL (0-0.2); Basophils % (A) 1 %; Eosinophils # (A) 0.3 k/uL (0-0.7); Eosinophils % (A) 2 %; HCT 33.6 % (34.0-46.0); HGB 10.5 gm/dL (11.4-16.0); Hypochromasia Moderate; Lymphocytes % (A) 17 %; MCHC 31.3 g/dL (31.0-37.0); MCV 95.8 fL (80.0-100.0); Mean Platelet Volume 7.4; Monocytes # (A) 0.7 k/uL (0-1.0); Monocytes % (A) 6 %; Neutrophils # (A) 8.6 k/uL (1.3-7.7); Neutrophils % (A) 72 %; RBC 3.51 m/uL (3.80-5.40); RDW 15.9 % (11.5-15.5); WBC 11.8 k/uL (3.8-10.6)
--- NOTE | 2020-10-26 00:02 | XR ---
EXAMINATION TYPE: XR chest 2V DATE OF EXAM: 10/25/2020 COMPARISON: 10/19/2020 HISTORY: Short of breath TECHNIQUE: 2 views FINDINGS: Heart is enlarged. There is some pulmonary vascular congestion. There is moderate-sized kiki ateral pleural effusions. Bony thorax is intact. IMPRESSION: There is evidence of mild chronic congestive heart failure. There is increased pleural fl uid compared to old exam.
[2020-10-26 00:09] LABS: Partial Thromboplastin Time 24.2 sec (22.0-30.0)
[2020-10-26] MEDS ORDERED: NALOXONE 0.4 MG/ML 1 ML VIAL IV PRN (00:14)
[2020-10-26] MEDS ORDERED: ONDANSETRON 4 MG/2 ML VIAL IVP PRN (00:14)
[2020-10-26] MEDS ORDERED: MORPHINE SULFATE 4 MG/ML SYRINGE IV PRN (00:14)
[2020-10-26 00:16] LABS: Platelet Count 842 k/uL (150-450)
[2020-10-26] MEDS ORDERED: FUROSEMIDE 10 MG/ML 4 ML VIAL IV STA (00:16)
[2020-10-26] MEDS ORDERED: DEXTROSE 5%-0.45% NACL 1,000 ML IV ONE (00:16)
[2020-10-26 00:17] LABS: Calcium 9.2 mg/dL (8.4-10.2); Magnesium 1.8 mg/dL (1.6-2.3); Potassium 4.9 mmol/L (3.5-5.1); Total Bilirubin 0.7 mg/dL (0.2-1.3); Total Protein 6.8 g/dL (6.3-8.2)
[2020-10-26 01:09] LABS: Appearance,Urine Cloudy (Clear); Bacteria,Urine Occasional /hpf; Bilirubin,Urine Negative (Negative); Blood,Urine Trace (Negative); Budding Yeast,Urine Many /hpf; Color,Urine Yellow; Glucose,Urine (UA) Negative (Negative); Ketones,Urine Negative (Negative); Leukocyte Esterase,Urine Moderate (Negative); Mucus,Urine Rare /hpf; Nitrite,Urine Negative (Negative); PH, Urine 5.5 (5.0-8.0); Protein,Urine 1+ (Negative); RBC,Urine 4 /hpf (0-5); Squamous Epithelial Cell,Urine 2 /hpf (0-4); Urobilinogen,Urine <2.0 mg/dL (<2.0); WBC,Urine 14 /hpf (0-5)
[2020-10-26 01:50] LABS: Glucose,Whole Blood 89 mg/dL (75-99)
[2020-10-26 04:35] LABS: African American GFR (CKD) 38 (>60 ml/min/1.73 sqM); Anion Gap 7 mmol/L; Blood Urea Nitrogen 19 mg/dL (7-17); Carbon Dioxide 20 mmol/L (22-30); Chloride 108 mmol/L (98-107); Glucose 69 mg/dL (74-99); Non-African American GFR(CKD) 33 (>60 ml/min/1.73 sqM); Potassium 4.7 mmol/L (3.5-5.1); Sodium 135 mmol/L (137-145)
[2020-10-26] MEDS ORDERED: DEXTROSE 50% SYRINGE 50 ML IVP STA (04:37)
[2020-10-26] MEDS ORDERED: DEXTROSE 50% SYRINGE 50 ML IVP PRN (04:38)
[2020-10-26 05:20] LABS: Glucose,Whole Blood 55 mg/dL (75-99)
[2020-10-26 05:23] LABS: Anisocytosis Slight; Hypochromasia Moderate; MCH 29.6 pg (25.0-35.0); MCHC 31.1 g/dL (31.0-37.0); Mean Platelet Volume 8.6; Platelet Count 668 k/uL (150-450); RBC 2.94 m/uL (3.80-5.40); RDW 16.2 % (11.5-15.5); WBC 9.7 k/uL (3.8-10.6)
[2020-10-26 06:25] LABS: Band Neutrophils % 1 %; Lymphocytes # (M) 1.36 k/uL (1.0-4.8); Monocytes # (M) 0.29 k/uL (0-1.0); Neutrophils % (M) 81 %; Nucleated Red Blood Cells 0 /100 WBC (0-0); Polychromasia Present; Total Cells Counted 100
[2020-10-26] MEDS: IPRATROPIUM-ALBUTEROL 3 ML NEB INHALATION PRN ×3 (07:27→15:50)
[2020-10-26 07:50] LABS: HGB 8.7 gm/dL (11.4-16.0)
[2020-10-26 09:16] LABS: Glucose,Whole Blood 122 mg/dL (75-99)
--- NOTE | 2020-10-26 09:56 | P.CRDCN ---
History of Present Illness Consult reason: congestive heart failure History of present illness: The patient is a 75-year-old Cam[place]onian-speaking female with past medical history of coronary artery disease, diabetes, hypertension, and dyslipidemia. Cardiology was consulted for elevated BNP and congestive heart failure. The patient was recently admitted to the hospital for septicemia secondary to C. diff infection and GI bleeding. Upper endoscopy showed a large duodenal ulcer and gastritis, followed by colonoscopy which showed pancolitis. She was discharged in stable condition, however has returned with worsening shortness of breath. She states she does have difficulty breathing. She denies a cough or fever. No pain or pressure in her chest. No dizziness or lightheadedness. Unfortunately she is a poor historian and [place] language is [place]. DIAGNOSTICS: EKG shows sinus tachycardia without ST or T-wave changes Chest x-ray shows mild pulmonary vascular congestion with moderate bilateral pleural effusions Recent echocardiogram shows LV function of 55-60% with mild LVH, mild MR and small pericardial effusion Laboratory data: WBC 9.7, hemoglobin 8.7, hematocrit 28, platelet 668, sodium 135, potassium 4.7, BUN 19, creatinine 1.5, AST 45, ALT 10, CK 43, BNP 4070, troponin -1 PAST MEDICAL HISTORY: Coronary artery disease, diabetes, dyslipidemia, hypertension REVIEW OF SYSTEMS: No fever or chills. No cough or expectoration. No diaphoresis. Patient denies headache, dizziness, blurred vision, double vision. Patient denies any stomach discomfort. No nausea, vomiting. No hematochezia. No hematemesis. Denies any black stools or blood in his stools. Denies dysuria or hematuria. No muscle weakness or numbness. PHYSICAL EXAMINATION: This is a 75-year-old female in no apparent distress at the time of my examination. HEENT: Head is atraumatic, normocephalic. Pupils are equal, round. Sclerae ani cteric. Conjunctivae are clear. Mucous membranes of the mouth are moist. Neck is supple. There is no jugular venous distention. No carotid bruit is heard. CHEST EXAMINATION: Lungs are clear to auscultation. No chest wall tenderness is noted on palpation or with deep breathing. HEART EXAMINATION: Heart regular rate and rhythm. Notably tachycardic. S1, S2 heard. No gallops or rub. Systolic murmur at the apex ABDOMEN: Soft, nontender. Bowel sounds are heard. No organomegaly noted. EXTREMITIES: 2+ peripheral pulses with no evidence of peripheral edema and no calf tenderness noted. NEUROLOGIC EXAMINATION: Patient is awake and alert. FINAL ASSESSMENT AND PLAN: Shortness of breath, no onset Diastolic heart failure, elevated BNP with preserved ejection fraction Bilateral pleural effusions Recent GI bleeding with blood loss anemia History of coronary artery disease History diabetes History of dyslipidemia History of hypertension PLAN: Continue IV Lasix Resume home medications except for Plavix; defer to primary team as she continues to be anemic Continue to monitor kidney function and electrolytes Strict I&O Further recommendations will be based upon clinical course The patient has been seen and evaluated. Plan of care has been reviewed and agreed upon by Dr Burgos. Past Medical History Past Medical History: Coronary Artery Disease (CAD), Diabetes Mellitus, Hyperlipidemia, Hypertension History of Any Multi-Drug Resistant Organisms: None Reported Past Surgical History: Cholecystectomy, Heart Catheterization With Stent, Orthopedic Surgery Additional Past Surgical History / Comment(s): hip surgery, cataract sx, left ankle surgery 2020 Date of Last Stent Placement:: 2000 Past Psychological History: No Psychological Hx Reported Smoking Status: Never smoker Past Alcohol Use History: None Reported Past Drug Use History: None Reported Medications and Allergies Home Medications Medication Instructions Recorded Confirmed Type Clopidogrel [Plavix] 75 mg PO DAILY 09/14/20 10/09/20 History Collagenase [Santyl] 1 applic TOPICAL HS 09/14/20 10/09/20 History Donepezil [Aricept] 5 mg PO DAILY 09/14/20 10/09/20 History Latanoprost/Pf [Latanoprost 0.005% 1 drop BOTH EYES HS 09/14/20 10/09/20 History Eye Drop] OLANZapine [ZyPREXA] 5 mg PO DAILY 09/14/20 10/09/20 History Simvastatin [Zocor] 20 mg PO DAILY 09/14/20 10/09/20 History Cholecalciferol [Vitamin D3 (25 25 mcg PO DAILY 10/09/20 10/09/20 History Mcg = 1000 Iu)] Acetaminophen Tab [Tylenol] 650 mg PO Q6HR PRN tab 10/23/20 Rx Cholestyramine (with Sugar) 4 gm PO BID@1000,2100 5 Days #10 10/23/20 Rx [Questran Packet] packet Ciprofloxacin HCl [Cipro] 500 mg PO Q12H 7 Days #14 tab 10/23/20 Rx INSULIN ASPART (NovoLOG) [NovoLOG 2 unit SQ AC-TID #1 vial 10/23/20 Rx (formulary)] INSULIN ASPART (NovoLOG) [NovoLOG See Protocol SQ ACHS #1 vial 10/23/20 Rx (formulary)] Metoprolol Succinate (ER) [Toprol 200 mg PO DAILY #60 tab.er.24h 10/23/20 Rx XL] Pantoprazole Sodium [Protonix] 40 mg PO BID 30 Days #60 tablet.dr 10/23/20 Rx Sodium Bicarbonate Tab 650 mg PO BID 30 Days #60 tab 10/23/20 Rx Sucralfate [Carafate] 1 gm PO AC-TID #90 tab 10/23/20 Rx metroNIDAZOLE [Flagyl] 500 mg PO TID 7 Days #21 tab 10/23/20 Rx Allergies Allergy/AdvReac Type Severity Reaction Status Date / Time No Known Allergies Allergy Verified 09/19/20 08:59 Physical Exam Vitals: Vital Signs Pulse Resp BP Pulse Ox 10/26/20 07:39 106 H 10/26/20 07:30 104 H 10/26/20 05:00 89 20 143/71 97 10/26/20 00:14 92 20 132/72 98 10/25/20 23:20 20 10/25/20 23:10 98 20 134/65 91 L Intake and Output 10/25/20 10/26/20 10/26/20 22:59 06:59 14:59 Output Total 1200 Balance -1200 Output: Urine 1200 Other: Weight 69.127 kg Results 10/26/20 03:32 10/26/20 03:40 Cardiac Enzymes 10/25/20 10/25/20 Range/Units 23:25 23:25 AST 45 H (14-36) U/L Troponin I <0.012 (0.000-0.034) ng/mL Coagulation 10/25/20 Range/Units 23:25 PT 11.0 (9.0-12.0) sec APTT 24.2 (22.0-30.0) sec CBC 10/25/20 10/26/20 Range/Units 23:25 03:32 WBC 11.8 H 9.7 (3.8-10.6) k/uL RBC 3.51 L 2.94 L (3.80-5.40) m/uL Hgb 10.5 L 8.7 L D (11.4-16.0) gm/dL Hct 33.6 L 28.0 L (34.0-46.0) % Plt Count 842 H D 668 H (150-450) k/uL Comprehensive Metabolic Panel 10/25/20 10/26/20 Range/Units 23:25 03:40 Sodium 134 L 135 L (137-145) mmol/L Potassium 4.9 4.7 (3.5-5.1) mmol/L Chloride 107 108 H (98-107) mmol/L Carbon Dioxide 18 L 20 L (22-30) mmol/L BUN 19 H 19 H (7-17) mg/dL Creatinine 1.49 H 1.53 H (0.52-1.04) mg/dL Glucose 34 L* 69 L (74-99) mg/dL Calcium 9.2 9.0 (8.4-10.2) mg/dL AST 45 H (14-36) U/L ALT 10 (4-34) U/L Alkaline Phosphatase 69 (38-126) U/L Total Protein 6.8 (6.3-8.2) g/dL Albumin 3.0 L (3.5-5.0) g/dL Current Medications Generic Name Dose Route Start Last Admin Trade Name Freq PRN Reason Stop Dose Admin Albuterol/Ipratropium 3 ml 10/26/20 00:14 10/26/20 07:27 Ipratropium-Albuterol 3 Ml Neb INHALATION 3 ml RT-QID PRN Administration Shortness Of Breath Or Wheezing Dextrose/Water 50 ml 10/26/20 04:38 Dextrose 50% Syringe 50 Ml IVP ONCE PRN Hypoglycemia Furosemide 40 mg 10/26/20 09:00 Furosemide 10 Mg/Ml 4 Ml Vial IV Q12HR ANNMARIE Dextrose/Sodium Chloride 1,000 mls @ 83 mls/hr 10/26/20 00:16 10/26/20 01:42 Dextrose 5%-1/2ns Iv Soln IV 10/26/20 12:18 83 mls/hr .Q12H3M ONE Administration Morphine Sulfate 4 mg 10/26/20 00:14 Morphine Sulfate 4 Mg/Ml Syringe IV Q4HR PRN Severe Pain Naloxone HCl 0.2 mg 10/26/20 00:14 Naloxone 0.4 Mg/Ml 1 Ml Vial IV Q2M PRN Opioid Reversal Ondansetron HCl 4 mg 10/26/20 00:14 Ondansetron 4 Mg/2 Ml Vial IVP Q8HR PRN Nausea And Vomiting Intake and Output 10/25/20 10/26/20 10/26/20 22:59 06:59 14:59 Output Total 1200 Balance -1200 Output: Urine 1200 Other: Weight 69.127 kg 10/26/20 03:32 10/26/20 03:40
[2020-10-26] MEDS: FUROSEMIDE 10 MG/ML 4 ML VIAL IV SCH ×2 (11:17→23:08)
[2020-10-26 16:48] LABS: Glucose,Whole Blood 189 mg/dL (75-99)
[2020-10-26 17:08] LABS: Anisocytosis Slight; Basophils % (A) 0 %; Eosinophils # (A) 0.2 k/uL (0-0.7); Eosinophils % (A) 2 %; HCT 32.2 % (34.0-46.0); HGB 10.5 gm/dL (11.4-16.0); Hypochromasia Slight; Lymphocytes # (A) 1.1 k/uL (1.0-4.8); Lymphocytes % (A) 12 %; MCH 30.9 pg (25.0-35.0); MCHC 32.6 g/dL (31.0-37.0); MCV 94.9 fL (80.0-100.0); Mean Platelet Volume 7.7; Monocytes # (A) 0.6 k/uL (0-1.0); Monocytes % (A) 7 %; Neutrophils # (A) 6.8 k/uL (1.3-7.7); Neutrophils % (A) 77 %; Platelet Count 504 k/uL (150-450); RDW 16.3 % (11.5-15.5); WBC 8.9 k/uL (3.8-10.6)
[2020-10-26 17:20] LABS: Glucose,Whole Blood 175 mg/dL (75-99)
--- NOTE | 2020-10-26 18:39 | P.HPIM ---
History of Present Illness H&P Date: 10/26/20 Chief Complaint: Shortness of breath Ms. Sofia is a 75-year-old with a past medical history of coronary artery disease, diabetes mellitus, hypertension, hyperlipidemia, left ankle surgery done recently, recent C. diff colitis brought in by her daughter and family secondary to difficulty in breathing. Most of the history is given by her daughter and son-in-law who were present at the bedside as the patient does not speak Kyr[place]z. They mentioned that during her last hospital stay patient gained significant amount of weight, possibly due to fluid retention and was having mild difficulty in breathing. But last night she was having more shortness of breath that prompted them to bring her to the hospital. She was recently admitted in the hospital from 10/09/2020 2 10/23/2020. Patient has C. diff colitis and was discharged on by mouth antibiotics. During that previous admission patient had acute kidney injury as well. They denied having any fevers chills or rigors. No diarrhea, abdominal pain or nausea. No dysuria or hematuria. They mentioned that she has stage I sacral decubitus ulcer. She also recently had left ankle surgery done, was told not to bear weight on the left lower extremity. No complaints of chest pain or palpitations. No loss of consciousness, headache or visual disturbances. No weakness of the extremities, has generalized weakness. In the ED at the time of admission heart rate 98, respiratory 20, blood pressure 1/31 a 65, saturating at 91% on room air. She had chest x-ray done showing mild chronic congestive heart failure with increased pleural effusion compared to old exam. Reviewing her labs white count of 8.9, hemoglobin 10.4, platelets 504. Sodium 135, potassium 4.7, chloride 108, bicarb 20, BUN 19, creatinine 1.53. Urine analysis positive for moderate leukocyte esterase, 14 WBCs. FOBT negative. EKG showing low voltage with sinus tachycardia. Patient also had significant hypoglycemia with a glucose as low as 34. Review of Systems REVIEW OF SYSTEMS: CONSTITUTIONAL: No fever, no malaise, no fatigue. HEENT: No headache, no neck stiffness, no blurring of vision CARDIOVASCULAR: No chest pain, no palpitations PULMONARY: As per HPI GASTROINTESTINAL: No Abdominal pain nausea vomiting or diarrhea NEUROLOGICAL: No weakness of extremities HEMATOLOGICAL: Denies any bleeding or petechiae. GENITOURINARY: Denies any burning micturition, frequency, or urgency. MUSCULOSKELETAL/RHEUMATOLOGICAL: Left ankle pain ENDOCRINE: Denies polyuria polydipsia or heat or cold intolerance The rest of the 14-point review of systems is negative. Past Medical History Past Medical History: Coronary Artery Disease (CAD), Diabetes Mellitus, Hyperlipidemia, Hypertension History of Any Multi-Drug Resistant Organisms: None Reported Past Surgical History: Cholecystectomy, Heart Catheterization With Stent, Orthopedic Surgery Additional Past Surgical History / Comment(s): hip surgery, cataract sx, left ankle surgery 2020 Date of Last Stent Placement:: 2000 Past Psychological History: No Psychological Hx Reported Smoking Status: Never smoker Past Alcohol Use History: None Reported Past Drug Use History: None Reported Medications and Allergies Home Medications Medication Instructions Recorded Confirmed Type Clopidogrel [Plavix] 75 mg PO DAILY 09/14/20 10/26/20 History Collagenase [Santyl] 1 applic TOPICAL HS 09/14/20 10/26/20 History Donepezil [Aricept] 5 mg PO DAILY 09/14/20 10/26/20 History Latanoprost/Pf [Latanoprost 0.005% 1 drop BOTH EYES HS 09/14/20 10/26/20 History Eye Drop] OLANZapine [ZyPREXA] 5 mg PO DAILY 09/14/20 10/26/20 History Simvastatin [Zocor] 20 mg PO DAILY 09/14/20 10/26/20 History Cholecalciferol [Vitamin D3 (25 25 mcg PO DAILY 10/09/20 10/26/20 History Mcg = 1000 Iu)] Cholestyramine (with Sugar) 4 gm PO BID@1000,2100 5 Days #10 10/23/20 10/26/20 Rx [Questran Packet] packet Ciprofloxacin HCl [Cipro] 500 mg PO Q12H 7 Days #14 tab 10/23/20 10/26/20 Rx Metoprolol Succinate (ER) [Toprol 200 mg PO DAILY #60 tab.er.24h 10/23/20 10/26/20 Rx XL] Pantoprazole Sodium [Protonix] 40 mg PO BID 30 Days #60 tablet.dr 10/23/20 10/26/20 Rx Sodium Bicarbonate Tab 650 mg PO BID 30 Days #60 tab 10/23/20 10/26/20 Rx Sucralfate [Carafate] 1 gm PO AC-TID #90 tab 10/23/20 10/26/20 Rx metroNIDAZOLE [Flagyl] 500 mg PO TID 7 Days #21 tab 10/23/20 10/26/20 Rx Acetaminophen Tab [Tylenol] 650 mg PO Q6H PRN 10/26/20 10/26/20 History Glimepiride [Amaryl] 8 mg PO AC-[id number] 10/26/20 10/26/20 History Pioglitazone [Actos] 30 mg PO DAILY 10/26/20 10/26/20 History Triamterene-Hctz 37.5-25Mg 1 cap PO DAILY 10/26/20 10/26/20 History [Dyazide 37.5-25 Capsule] Allergies Allergy/AdvReac Type Severity Reaction Status Date / Time No Known Allergies Allergy Verified 10/26/20 12:38 Physical Exam Vitals: Vital Signs Pulse Resp BP Pulse Ox 10/26/20 16:00 120 H 10/26/20 15:50 120 H 10/26/20 11:31 100 10/26/20 11:24 94 10/26/20 07:39 106 H 10/26/20 07:30 104 H 10/26/20 05:00 89 20 143/71 97 10/26/20 00:14 92 20 132/72 98 10/25/20 23:20 20 10/25/20 23:10 98 20 134/65 91 L Intake and Output 10/26/20 10/26/20 10/26/20 06:59 14:59 22:59 Output Total 1200 800 Balance -1200 -800 Output: Urine 1200 800 Other: Weight 69.127 kg PHYSICAL EXAMINATION: GENERAL: Comfortably lying up in the bed appears to be no acute distress. HEENT: Pupils are round and equally reacting to light. EOMI. No scleral icterus. No conjunctival pallor. CARDIOVASCULAR: S1 and S2 present. Tachycardia. PULMONARY: Diminished breath sounds bilaterally at the lower lobes. Mild crackles at the lower lung bases. ABDOMEN: Soft,non -tender, normal bowel sounds. No guarding or rigidity. MUSCULOSKELETAL: No joint swelling or deformity. Stage I sacral decubitus ulcer EXTREMITIES: Positive for pitting edema lower extremities. Left ankle in crpe bandage NEUROLOGICAL: Gross neurological examination did not reveal any focal deficits. SKIN:No rash Results CBC & Chem 7: 10/26/20 16:00 10/26/20 03:40 Labs: Abnormal Lab Results - Last 24 Hours (Table) 10/25/20 10/25/20 10/25/20 Range/Units 23:06 23:25 23:25 WBC 11.8 H (3.8-10.6) k/uL RBC 3.51 L (3.80-5.40) m/uL Hgb 10.5 L (11.4-16.0) gm/dL Hct 33.6 L (34.0-46.0) % RDW 15.9 H (11.5-15.5) % Plt Count 842 H D (150-450) k/uL Neutrophils # 8.6 H (1.3-7.7) k/uL Neutrophils # (Manual) (1.3-7.7) k/uL Sodium 134 L (137-145) mmol/L Chloride (98-107) mmol/L Carbon Dioxide 18 L (22-30) mmol/L BUN 19 H (7-17) mg/dL Creatinine 1.49 H (0.52-1.04) mg/dL Glucose 34 L* (74-99) mg/dL POC Glucose (mg/dL) 40 L (75-99) mg/dL AST 45 H (14-36) U/L Albumin 3.0 L (3.5-5.0) g/dL Urine Appearance (Clear) Urine Protein (Negative) Urine Blood (Negative) Ur Leukocyte Esterase (Negative) Urine WBC (0-5) /hpf Urine Bacteria (None) /hpf Urine Mucus (None) /hpf Urine Yeast (Budding) (None) /hpf 10/26/20 10/26/20 10/26/20 Range/Units 00:14 03:32 03:40 WBC (3.8-10.6) k/uL RBC 2.94 L (3.80-5.40) m/uL Hgb 8.7 L D (11.4-16.0) gm/dL Hct 28.0 L (34.0-46.0) % RDW 16.2 H (11.5-15.5) % Plt Count 668 H (150-450) k/uL Neutrophils # (1.3-7.7) k/uL Neutrophils # (Manual) 7.90 H (1.3-7.7) k/uL Sodium 135 L (137-145) mmol/L Chloride 108 H (98-107) mmol/L Carbon Dioxide 20 L (22-30) mmol/L BUN 19 H (7-17) mg/dL Creatinine 1.53 H (0.52-1.04) mg/dL Glucose 69 L (74-99) mg/dL POC Glucose (mg/dL) (75-99) mg/dL AST (14-36) U/L Albumin (3.5-5.0) g/dL Urine Appearance Cloudy H (Clear) Urine Protein 1+ H (Negative) Urine Blood Trace H (Negative) Ur Leukocyte Esterase Moderate H (Negative) Urine WBC 14 H (0-5) /hpf Urine Bacteria Occasional H (None) /hpf Urine Mucus Rare H (None) /hpf Urine Yeast (Budding) Many H (None) /hpf 10/26/20 10/26/20 Range/Units 05:14 09:14 WBC (3.8-10.6) k/uL RBC (3.80-5.40) m/uL Hgb (11.4-16.0) gm/dL Hct (34.0-46.0) % RDW (11.5-15.5) % Plt Count (150-450) k/uL Neutrophils # (1.3-7.7) k/uL Neutrophils # (Manual) (1.3-7.7) k/uL Sodium (137-145) mmol/L Chloride (98-107) mmol/L Carbon Dioxide (22-30) mmol/L BUN (7-17) mg/dL Creatinine (0.52-1.04) mg/dL Glucose (74-99) mg/dL POC Glucose (mg/dL) 55 L 122 H (75-99) mg/dL AST (14-36) U/L Albumin (3.5-5.0) g/dL Urine Appearance (Clear) Urine Protein (Negative) Urine Blood (Negative) Ur Leukocyte Esterase (Negative) Urine WBC (0-5) /hpf Urine Bacteria (None) /hpf Urine Mucus (None) /hpf Urine Yeast (Budding) (None) /hpf Microbiology - Last 24 Hours (Table) 10/26/20 00:14 Urine Culture - Preliminary Urine,Voided Assessment and Plan Assessment: ASSESSMENT Shortness of breath could be secondary to CHF exacerbation vs bilateral pleural effusion vs hypoalbuminemia Diastolic congestive heart failure Bilateral pleural effusion Hypoglycemia Recent C. diff colitis Recent colon polyp removal History of coronary artery disease Diabetes mellitus Dyslipidemia Hypertension Recent history of left ankle fracture Stage I sacral decubitus ulcer Stage III CKD Moderate protein calorie malnutrition PLAN: Patient's shortness of breath could be multifactorial, with chest x-ray showing signs of congestion and elevated BNP, we will obtain an echocardiogram. Patient has been started on IV Lasix 40 mg twice a day by cardiology which will be continued. Will avoid all hypoglycemic agents due to severe hypoglycemia. Patient will be restarted on her antibiotics, for her recent C. diff colitis. Patient will be discharged on her home medications. She has stage I sacral decubitus ulcer, to change positions frequently. We will consult ID Dr. Ordonez. Cardiology on board and following the patient. Will repeat a.m. chest x-ray. Overall prognosis is guarded secondary to chronic multiple complex medical conditions. The treatment plan was discussed in detail with her daughter and family members at bedside. Further recommendations to follow depending on the progress of the patient.
[2020-10-26 20:22] LABS: Glucose,Whole Blood 181 mg/dL (75-99)
[2020-10-26] MEDS: METOPROLOL SUCCINATE (ER) 100 MG TAB.ER.24H PO SCH (21:14)
[2020-10-26] MEDS: CHOLESTYRAMINE (WITH SUGAR) 4 GM PACKET PO SCH (21:14)
[2020-10-26] MEDS: metroNIDAZOLE 500 MG TAB PO SCH (21:14)
[2020-10-26] MEDS: CIPROFLOXACIN HCL 500 MG TAB PO SCH (21:14)
[2020-10-26] MEDS: LATANOPROST 0.005% OPHTH DROPS 2.5 ML BTL BOTH EYES SCH (21:14)
[2020-10-26] MEDS: ACETAMINOPHEN TAB 325 MG TAB PO PRN (21:21)
[2020-10-26 23:08] LABS: Glucose,Whole Blood 183 mg/dL (75-99)
[2020-10-26] MEDS: HEPARIN SODIUM,PORCINE/PF 5,000 UNIT/0.5 ML SYRINGE SQ SCH (23:09)
--- NOTE | 2020-10-27 07:25 | XR ---
EXAMINATION TYPE: XR chest 1V DATE OF EXAM: 10/27/2020 HISTORY: Shortness of breath. COMPARISON: 10/25/2020 TECHNIQUE: Single view of the chest is submitted. FINDINGS: Demonstrated are scattered senescent parenchymal change. There is continued cardiomegaly with pulmonary venous congestion and pleural effusions. Right basilar atelectasis or infiltrate. Hilar and mediastinal structures are within normal limits. Degenerative changes are seen of the dorsal spine. IMPRESSION: 1. Stable features of congestive failure.
[2020-10-27 07:32] LABS: Glucose,Whole Blood 153 mg/dL (75-99)
[2020-10-27] MEDS ORDERED: TRIAMTERENE-HCTZ 37.5-25MG 1 EACH CAP PO SCH (09:00)
[2020-10-27 09:16] LABS: Basophils # (A) 0.07 X 10*3/uL (0.00-0.10); Basophils % (A) 1.1 %; Eosinophils # (A) 0.24 X 10*3/uL (0.04-0.35); Eosinophils % (A) 3.7 %; HCT 30.5 % (37.2-46.3); Lymphocytes # (A) 1.35 X 10*3/uL (0.90-5.00); Lymphocytes % (A) 20.8 %; MCHC 29.5 g/dL (32.0-37.0); MCV 98.4 fL (80.0-97.0); Monocytes # (A) 0.77 X 10*3/uL (0.20-1.00); Monocytes % (A) 11.9 %; Neutrophils # (A) 3.81 X 10*3/uL (1.80-7.70); Neutrophils % (A) 58.6 %; Platelet Count 550 X 10*3/uL (140-440); RDW 17.2 % (11.5-14.5); WBC 6.49 X 10*3/uL (4.50-10.00)
[2020-10-27] MEDS: CHOLESTYRAMINE (WITH SUGAR) 4 GM PACKET PO SCH ×2 (09:53→19:52)
[2020-10-27] MEDS: HEPARIN SODIUM,PORCINE/PF 5,000 UNIT/0.5 ML SYRINGE SQ SCH ×3 (09:53→23:42)
[2020-10-27] MEDS: FUROSEMIDE 10 MG/ML 4 ML VIAL IV SCH (09:53)
[2020-10-27] MEDS: PANTOPRAZOLE 40 MG TABLET PO SCH ×2 (09:54→16:12)
[2020-10-27] MEDS: SUCRALFATE 1 GM TAB PO SCH ×3 (09:54→16:12)
[2020-10-27] MEDS: METOPROLOL SUCCINATE (ER) 100 MG TAB.ER.24H PO SCH (09:54)
[2020-10-27] MEDS: DONEPEZIL 5 MG TAB PO SCH (09:54)
[2020-10-27] MEDS: ATORVASTATIN 10 MG TAB PO SCH (09:54)
[2020-10-27] MEDS: OLANZapine 5 MG TAB PO SCH (09:54)
[2020-10-27] MEDS: CIPROFLOXACIN HCL 500 MG TAB PO SCH ×2 (09:54→19:53)
[2020-10-27] MEDS: CHOLECALCIFEROL 25 MCG (1000 IU) TABLET PO SCH (09:54)
[2020-10-27] MEDS: metroNIDAZOLE 500 MG TAB PO SCH ×3 (09:54→19:53)
--- NOTE | 2020-10-27 10:52 | ECHOF ---
Referral Reason:chf MEASUREMENTS -------- HEIGHT: 162.6 cm WEIGHT: 68.9 kg BP: RVIDd: 2.3 cm (< 3.3) IVSd: 1.6 cm (0.6 - 1.1) LVIDd: 4.2 cm (3.9 - 5.3) LVPWd: 1.2 cm (0.6 - 1.1) IVSs: 2.3 cm LVIDs: 2.0 cm LVPWs: 2.0 cm FINDINGS -------- This was a technically difficult study with suboptimal views. Limited Study The left ventricular size is normal. There is moderate concentric left ventricular hypertrophy. O verall left ventricular systolic function is mildly impaired with, an EF between 45 - 50 %. xx ml of Lumason was utilized for enhancement of images. Mild thickening of the anterior mitral valve leaflet. There is a small, generalized pericardial effusion present. CONCLUSIONS -------- 1. The left ventricular size is normal. 2. There is moderate concentric left ventricular hypertrophy. 3. Overall left ventricular systolic function is mildly impaired with, an EF between 45 - 50 %. 4. Mild thickening of the anterior mitral valve leaflet. 5. There is a small, generalized pericardial effusion present. ASSISTED LIVING ASSOCIATE: [facility]
[2020-10-27 12:03] LABS: Glucose,Whole Blood 187 mg/dL (75-99)
[2020-10-27] MEDS: SPIRONOLACTONE 25 MG TAB PO SCH ×2 (12:11→19:53)
[2020-10-27 12:35] LABS: ALT <8 U/L (8-44); AST 15 U/L (13-35); African American GFR (CKD) 33.8 (60.0-200.0); Albumin/Globulin Ratio 1.04 (1.60-3.17); Alkaline Phosphatase 67 U/L (41-126); BUN/Creat Ratio 10.59 Ratio (12.00-20.00); Calcium 8.9 mg/dL (8.7-10.3); Carbon Dioxide 19.4 mmol/L (21.6-31.8); Chloride 105 mmol/L (96-109); Globulin 2.7 g/dL (1.6-3.3); Glucose 147 mg/dL (70-110); Non-African American GFR(CKD) 29.2 (60.0-200.0); Potassium 4.2 mmol/L (3.5-5.5); Sodium 138 mmol/L (135-145); Total Bilirubin 0.2 mg/dL (0.3-1.2); Total Protein 5.5 g/dL (6.2-8.2)
--- NOTE | 2020-10-27 13:18 | P.PN ---
Subjective This is a pleasant 75-year-old female past medical history significant for carotid artery disease, diabetes, chronic kidney disease, dementia, hypert ension, colitis and dyslipidemia. She is seen and examined resting comfortably laying flat no acute distress. Blood pressure 147/79 heart rate 98 afebrile maintaining oxygen saturation on nasal cannula. BMP pending. 24-hour urine output 3.8 L. Repeat chest x-ray this morning reveals pulmonary venous congestion and pleural effusions with right basilar atelectasis. GENERAL: Well-appearing, well-nourished and in no acute distress. NECK: Supple without JVD or thyromegaly. LUNGS: Breath sounds clear to auscultation bilaterally. Respiration equal and unlabored. No wheezes, rales or rhonchi. HEART: Regular rate and rhythm without murmurs, rubs or gallops. S1 and S2 heard. EXTREMITIES: Normal range of motion, no edema. No clubbing or cyanosis. Peripheral pulses intact. ASSESSMENT Acute diastolic heart failure Bilateral pleural effusions Hypertension Dyslipidemia Diabetes mellitus PLAN Adjust her duretics; lasix 40 mg PO daily and aldactone 25 mg BID. Nurse Practitioner note has been reviewed, I agree with a documented findings and plan of care. Patient was seen and examined. Objective - Vital Signs Vital signs: Vital Signs Temp 98.5 F 10/27/20 07:00 Pulse 98 10/27/20 08:00 Resp 18 10/27/20 08:00 BP 147/79 10/27/20 07:00 Pulse Ox 98 10/27/20 07:00 Intake & Output 10/26/20 10/27/20 10/27/20 18:59 06:59 18:59 Output Total 1999 1800 700 Balance -19991800 -700 Weight 69.127 kg Output: Urine 1999 1800 700 Other: Voiding Method Indwelling Catheter Indwelling Catheter # Bowel Movements 1 1 - Labs CBC & Chem 7: 10/27/20 05:33 10/27/20 05:33 Labs: Abnormal Lab Results - Last 24 Hours (Table) 10/26/20 10/26/20 10/26/20 Range/Units 16:00 16:46 17:18 RBC 3.40 L (3.80-5.40) m/uL Hgb 10.5 L (11.4-16.0) gm/dL Hct 32.2 L (34.0-46.0) % MCV (80.0-97.0) fL MCHC (32.0-37.0) g/dL RDW 16.3 H (11.5-15.5) % Plt Count 504 H (150-450) k/uL MPV (9.5-12.2) fL Immature Gran # (0.00-0.04) X 10*3/uL POC Glucose (mg/dL) 189 H 175 H (75-99) mg/dL 10/26/20 10/26/20 10/27/20 Range/Units 20:21 23:07 05:33 RBC 3.10 L (3.80-5.40) m/uL Hgb 9.0 L (11.4-16.0) gm/dL Hct 30.5 L (34.0-46.0) % MCV 98.4 H (80.0-97.0) fL MCHC 29.5 L (32.0-37.0) g/dL RDW 17.2 H (11.5-15.5) % Plt Count 550 H (150-450) k/uL MPV 9.0 L (9.5-12.2) fL Immature Gran # 0.25 H (0.00-0.04) X 10*3/uL POC Glucose (mg/dL) 181 H 183 H (75-99) mg/dL 10/27/20 Range/Units 07:30 RBC (3.80-5.40) m/uL Hgb (11.4-16.0) gm/dL Hct (34.0-46.0) % MCV (80.0-97.0) fL MCHC (32.0-37.0) g/dL RDW (11.5-15.5) % Plt Count (150-450) k/uL MPV (9.5-12.2) fL Immature Gran # (0.00-0.04) X 10*3/uL POC Glucose (mg/dL) 153 H (75-99) mg/dL Microbiology - Last 24 Hours (Table) 10/26/20 00:14 Urine Culture - Preliminary Urine,Voided
[2020-10-27 15:29] VITALS: BMI 26.2
[2020-10-27 17:46] LABS: Glucose,Whole Blood 189 mg/dL (75-99)
[2020-10-27] MEDS: LATANOPROST 0.005% OPHTH DROPS 2.5 ML BTL BOTH EYES SCH (19:53)
[2020-10-27 20:37] LABS: Glucose,Whole Blood 207 mg/dL (75-99)
--- NOTE | 2020-10-27 21:48 | P.CONS ---
History of Present Illness - Reason for Consult Consult date: 10/27/20 recent c diff Requesting physician: Adelaida Curiel - Chief Complaint shortness of breath and swelling x few days - History of Present Illness History of present illness : Patient is 75-year-old female who was recently admitted to this facility and treated for colitis initial concern for C. difficile however the patient had not responded to the oral vancomycin there was evidence of right-sided colitis concern for possible ischemic patient subsequently was switched over to cefepime and Flagyl and did have overall clinical improvement fever resolved and white count normalized patient was subsequent discharged home on oral Cipro and Flagyl on 10/23/2020 patient has been brought back to the hospital within 48-hour on the for evaluation of increasing shortness of breath and diffuse swelling of the upper and lower extremity and leg decreased level of responsiveness patient on presentation to the hospital was afebrile and no fever has been recorded subsequently patient did have a normal white count creatinine was mildly elevated liver exams are normal urine was mildly positive stool for occult blood was negative patient did have a chest x-ray evidence of mild congestive heart failure for the patient is currently being treated by cardiology and echocardiogram has been obtained this morning with the left ventricle size was normal EF was 45 to 50% patient has been continued on her Cipro and Flagyl infectious disease was consulted with a question of recent C. difficile colitis patient currently denies having any abdominal pain patient denies any nausea no vomiting patient denies having any diarrhea although she did have soft bowel movement per the nursing staff and is feeling better no urinary symptoms of burning or frequency Review of system: CONSTITUTIONAL: Positive for weakness however denies fever. EYES: No complaint. ENT: No complaint. RESPIRATORY: As per history of present illness. CARDIOVASCULAR: As per history of present illness. GENITOURINARY: No complaint. GASTROINTESTINAL: No complaint. MUSCULOSKELETAL: No complaint. INTEGUMENTARY: No complaint. PSYCHOLOGIC: No complaint. ENDOCRINE: No complaint. NEUROLOGIC: No complaint. Past medical history : Reviewed, documented below Past surgical history : Reviewed, documented below Social history: Reviewed, documented below Medications: Reviewed, as documented below GENERAL DESCRIPTION: Elderly female lying in bed, no distress. No tachypnea or accessory muscle of respiration use. HEENT: Shows Pallor , no scleral icterus. Oral mucous membrane is dry. NECK: Trachea central, no thyromegaly. LUNGS: Unlabored breathing. Decreased breath sound in the base. No wheeze or crackle. HEART: S1, S2, regular rate and rhythm. ABDOMEN: Soft, no tenderness , guarding or rigidity EXTREMITIES: No edema of feet. SKIN: No rash, no masses palpable. NEUROLOGICAL: The patient is awake, alert, oriented x3, mood and affect normal. LABS AND RADIOLOGY: Reviewed results see below Assessment : Patient presented to hospital with increasing shortness of breath lower extremity swelling in this patient who was recently treated for colitis initial concern for C. difficile however the patient did not respond well to the oral vancomycin though clinically improved on cefepime and Flagyl which was subsequently switched to oral Cipro and Flagyl now admitted to hospital for possible fluid overload or congestive heart failure patient do not have any abdominal pain or any diarrhea did have soft bowel movement clinically no evidence of any recurrence of C. difficile colitis 2-positive urine culture with yeast but no urinary symptoms likely asymptomatic bacteriuria Plan: 1-patient to continue with oral Cipro and Flagyl to finish her recent treatment for the colitis 2-advised to increase her yogurt and probiotic intake 3-no need for any antifungal for the positive urine culture We will follow on clinical condition and cultures to further adjust medication if needed Thank you for this consultation we will follow the patient along with you Past Medical History Past Medical History: Coronary Artery Disease (CAD), Diabetes Mellitus, Hyperlipidemia, Hypertension History of Any Multi-Drug Resistant Organisms: None Reported Past Surgical History: Cholecystectomy, Heart Catheterization With Stent, Orthopedic Surgery Additional Past Surgical History / Comment(s): hip surgery, cataract sx, left ankle surgery 2020 Past Anesthesia/Blood Transfusion Reactions: No Reported Reaction Date of Last Stent Placement:: 2000 Past Psychological History: No Psychological Hx Reported Smoking Status: Never smoker Past Alcohol Use History: None Reported Past Drug Use History: None Reported Medications and Allergies Home Medications Medication Instructions Recorded Confirmed Type Clopidogrel [Plavix] 75 mg PO DAILY 09/14/20 10/26/20 History Collagenase [Santyl] 1 applic TOPICAL HS 09/14/20 10/26/20 History Donepezil [Aricept] 5 mg PO DAILY 09/14/20 10/26/20 History Latanoprost/Pf [Latanoprost 0.005% 1 drop BOTH EYES HS 09/14/20 10/26/20 History Eye Drop] OLANZapine [ZyPREXA] 5 mg PO DAILY 09/14/20 10/26/20 History Simvastatin [Zocor] 20 mg PO DAILY 09/14/20 10/26/20 History Cholecalciferol [Vitamin D3 (25 25 mcg PO DAILY 10/09/20 10/26/20 History Mcg = 1000 Iu)] Cholestyramine (with Sugar) 4 gm PO BID@1000,2100 5 Days #10 10/23/20 10/26/20 Rx [Questran Packet] packet Ciprofloxacin HCl [Cipro] 500 mg PO Q12H 7 Days #14 tab 10/23/20 10/26/20 Rx Metoprolol Succinate (ER) [Toprol 200 mg PO DAILY #60 tab.er.24h 10/23/20 10/26/20 Rx XL] Pantoprazole Sodium [Protonix] 40 mg PO BID 30 Days #60 tablet.dr 10/23/20 10/26/20 Rx Sodium Bicarbonate Tab 650 mg PO BID 30 Days #60 tab 10/23/20 10/26/20 Rx Sucralfate [Carafate] 1 gm PO AC-TID #90 tab 10/23/20 10/26/20 Rx metroNIDAZOLE [Flagyl] 500 mg PO TID 7 Days #21 tab 10/23/20 10/26/20 Rx Acetaminophen Tab [Tylenol] 650 mg PO Q6H PRN 10/26/20 10/26/20 History Glimepiride [Amaryl] 8 mg PO AC-BRKFST 10/26/20 10/26/20 History Pioglitazone [Actos] 30 mg PO DAILY 10/26/20 10/26/20 History Triamterene-Hctz 37.5-25Mg 1 cap PO DAILY 10/26/20 10/26/20 History [Dyazide 37.5-25 Capsule] Allergies Allergy/AdvReac Type Severity Reaction Status Date / Time No Known Allergies Allergy Verified 10/26/20 12:38 Physical Exam Vitals: Vital Signs Temp Pulse Pulse Resp BP BP Pulse Ox 10/27/20 08:00 98 18 10/27/20 07:00 98.5 F 98 18 147/79 98 10/27/20 02:00 98.1 F 89 18 133/78 99 10/26/20 20:00 99 F 101 H 18 145/77 99 10/26/20 17:10 98.4 F 121 H 18 145/78 95 10/26/20 16:40 119 H 19 143/79 96 10/26/20 16:00 120 H 10/26/20 15:50 120 H 10/26/20 11:31 100 10/26/20 11:24 94 Intake and Output 10/26/20 10/27/20 10/27/20 22:59 06:59 14:59 Output Total 1100 1500 Balance -1100 -1500 Output: Urine 1100 1500 Other: Voiding Method Indwelling Catheter Indwelling Catheter # Bowel Movements 1 Weight 69.127 kg Results CBC & Chem 7: 10/27/20 05:33 10/27/20 05:33 Labs: Abnormal Lab Results - Last 24 Hours (Table) 10/26/20 10/26/20 10/26/20 Range/Units 16:00 16:46 17:18 RBC 3.40 L (3.80-5.40) m/uL Hgb 10.5 L (11.4-16.0) gm/dL Hct 32.2 L (34.0-46.0) % MCV (80.0-97.0) fL MCHC (32.0-37.0) g/dL RDW 16.3 H (11.5-15.5) % Plt Count 504 H (150-450) k/uL MPV (9.5-12.2) fL Immature Gran # (0.00-0.04) X 10*3/uL POC Glucose (mg/dL) 189 H 175 H (75-99) mg/dL 10/26/20 10/26/20 10/27/20 Range/Units 20:21 23:07 05:33 RBC 3.10 L (3.80-5.40) m/uL Hgb 9.0 L (11.4-16.0) gm/dL Hct 30.5 L (34.0-46.0) % MCV 98.4 H (80.0-97.0) fL MCHC 29.5 L (32.0-37.0) g/dL RDW 17.2 H (11.5-15.5) % Plt Count 550 H (150-450) k/uL MPV 9.0 L (9.5-12.2) fL Immature Gran # 0.25 H (0.00-0.04) X 10*3/uL POC Glucose (mg/dL) 181 H 183 H (75-99) mg/dL 10/27/20 Range/Units 07:30 RBC (3.80-5.40) m/uL Hgb (11.4-16.0) gm/dL Hct (34.0-46.0) % MCV (80.0-97.0) fL MCHC (32.0-37.0) g/dL RDW (11.5-15.5) % Plt Count (150-450) k/uL MPV (9.5-12.2) fL Immature Gran # (0.00-0.04) X 10*3/uL POC Glucose (mg/dL) 153 H (75-99) mg/dL Microbiology - Last 24 Hours (Table) 10/26/20 00:14 Urine Culture - Preliminary Urine,Voided
[2020-10-28 07:29] LABS: Glucose,Whole Blood 180 mg/dL (75-99)
[2020-10-28] MEDS: SPIRONOLACTONE 25 MG TAB PO SCH ×2 (08:24→19:33)
[2020-10-28] MEDS: OLANZapine 5 MG TAB PO SCH (08:25)
[2020-10-28] MEDS: DONEPEZIL 5 MG TAB PO SCH (08:25)
[2020-10-28] MEDS: CIPROFLOXACIN HCL 500 MG TAB PO SCH (08:25)
[2020-10-28] MEDS: metroNIDAZOLE 500 MG TAB PO SCH ×3 (08:25→22:37)
[2020-10-28] MEDS: CHOLESTYRAMINE (WITH SUGAR) 4 GM PACKET PO SCH ×2 (08:25→19:31)
[2020-10-28] MEDS ORDERED: FUROSEMIDE 20 MG TAB PO SCH (09:00)
[2020-10-28] MEDS ORDERED: FUROSEMIDE 40 MG TAB PO SCH (09:00)
[2020-10-28 09:28] LABS: Basophils # (A) 0.05 X 10*3/uL (0.00-0.10); Basophils % (A) 0.7 %; Eosinophils % (A) 2.6 %; HCT 28.1 % (37.2-46.3); HGB 8.4 g/dL (12.0-15.0); Lymphocytes # (A) 1.31 X 10*3/uL (0.90-5.00); Lymphocytes % (A) 17.2 %; MCH 29.5 pg (27.0-32.0); MCHC 29.9 g/dL (32.0-37.0); MCV 98.6 fL (80.0-97.0); Monocytes # (A) 0.81 X 10*3/uL (0.20-1.00); Monocytes % (A) 10.6 %; Neutrophils # (A) 5.04 X 10*3/uL (1.80-7.70); Neutrophils % (A) 66.1 %; Platelet Count 508 X 10*3/uL (140-440); RBC 2.85 X 10*6/uL (4.10-5.20); RDW 16.5 % (11.5-14.5); WBC 7.62 X 10*3/uL (4.50-10.00)
[2020-10-28] MEDS: PANTOPRAZOLE 40 MG TABLET PO SCH ×2 (09:58→16:32)
[2020-10-28] MEDS: ATORVASTATIN 10 MG TAB PO SCH (09:58)
[2020-10-28] MEDS: SUCRALFATE 1 GM TAB PO SCH ×3 (09:58→19:15)
[2020-10-28] MEDS: HEPARIN SODIUM,PORCINE/PF 5,000 UNIT/0.5 ML SYRINGE SQ SCH ×3 (09:58→22:37)
[2020-10-28] MEDS: CHOLECALCIFEROL 25 MCG (1000 IU) TABLET PO SCH (09:58)
[2020-10-28] MEDS: METOPROLOL SUCCINATE (ER) 100 MG TAB.ER.24H PO SCH (09:59)
--- NOTE | 2020-10-28 10:13 | P.PN ---
Subjective This is a pleasant 75-year-old female past medical history significant for carotid artery disease, diabetes, chronic kidney disease, dementia, hypert ension, colitis and dyslipidemia. She is seen and examined resting comfortably laying flat no acute distress. Blood pressure 147/79 heart rate 98 afebrile maintaining oxygen saturation on nasal cannula. BMP pending. 24-hour urine output 3.8 L. Repeat chest x-ray this morning reveals pulmonary venous congestion and pleural effusions with right basilar atelectasis. 10/28/2020 Pt seen and examined laying flat in bed. 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 The patient denies chest pain or shortness of breath. She does acknowledge she has no appetite or desire to eat. She has no specific complaints other than feeling tired. Blood pressure 138/78 heart rate between 90 and 115. Afebrile maintaini ng oxygen saturation on nasal cannula. Laboratory data reviewed, WBC 7, hemoglobin 8.4, platelets 508, BMP pending. Yesterday's creatinine was mildly elevated compared to the previous day at 1.7. Telemetry not currently on. GENERAL: Well-appearing, well-nourished and in no acute distress. NECK: Supple without JVD or thyromegaly. LUNGS: Breath sounds clear to auscultation bilaterally. Respiration equal and unlabored. No wheezes, rales or rhonchi. HEART: Tachycardic, Regular rate and rhythm without murmurs, rubs or gallops. S1 and S2 heard. EXTREMITIES: Normal range of motion, no edema. No clubbing or cyanosis. Peripheral pulses intact. ASSESSMENT Acute diastolic heart failure Bilateral pleural effusions Hypertension Dyslipidemia Diabetes mellitus PLAN Obtain a stat one view chest x-ray. Obtain EKG. Placed the patient on the cardiac cafeteria monitor. Check TSH. Decrease oral Lasix to 20 mg daily, continue Aldactone as previously ordered. Initiate gentle hydration. We will continue to follow and make recommendations accordingly. Nurse Practitioner note has been reviewed, I agree with a documented findings and plan of care. Patient was seen and examined. Objective - Vital Signs Vital signs: Vital Signs Temp 98.8 F 10/28/20 07:00 Pulse 94 10/28/20 07:00 Resp 17 10/28/20 07:00 BP 138/78 10/28/20 07:00 Pulse Ox 94 L 10/28/20 07:00 Intake & Output 10/27/20 10/28/20 10/28/20 18:59 06:59 18:59 Output Total 1650 Balance -1650 Weight 69.127 kg Output: Urine 1650 Other: Voiding Method Indwelling Catheter Indwelling Catheter # Bowel Movements 1 - Labs CBC & Chem 7: 10/28/20 06:44 10/27/20 05:33 Labs: Abnormal Lab Results - Last 24 Hours (Table) 10/27/20 10/27/20 10/27/20 Range/Units 05:33 12:02 17:45 RBC (4.10-5.20) X 10*6/uL Hgb (12.0-15.0) g/dL Hct (37.2-46.3) % MCV (80.0-97.0) fL MCHC (32.0-37.0) g/dL RDW (11.5-14.5) % Plt Count (140-440) X 10*3/uL MPV (9.5-12.2) fL Immature Gran # (0.00-0.04) X 10*3/uL Carbon Dioxide 19.4 L (21.6-31.8) mmol/L Anion Gap 13.60 H (4.00-12.00) mmol/L Creatinine 1.7 H (0.6-1.5) mg/dL Est GFR (CKD-EPI)AfAm 33.8 L (60.0-200.0) Est GFR (CKD-EPI)NonAf 29.2 L (60.0-200.0) BUN/Creatinine Ratio 10.59 L (12.00-20.00) Ratio Glucose 147 H (70-110) mg/dL POC Glucose (mg/dL) 187 H 189 H (75-99) mg/dL Total Bilirubin 0.2 L (0.3-1.2) mg/dL ALT <8 L (8-44) U/L Total Protein 5.5 L (6.2-8.2) g/dL Albumin 2.80 L (3.80-4.90) g/dL Albumin/Globulin Ratio 1.04 L (1.60-3.17) g/dL 10/27/20 10/28/20 10/28/20 Range/Units 20:35 06:44 07:28 RBC 2.85 L (4.10-5.20) X 10*6/uL Hgb 8.4 L (12.0-15.0) g/dL Hct 28.1 L (37.2-46.3) % MCV 98.6 H (80.0-97.0) fL MCHC 29.9 L (32.0-37.0) g/dL RDW 16.5 H (11.5-14.5) % Plt Count 508 H (140-440) X 10*3/uL MPV 9.0 L (9.5-12.2) fL Immature Gran # 0.21 H (0.00-0.04) X 10*3/uL Carbon Dioxide (21.6-31.8) mmol/L Anion Gap (4.00-12.00) mmol/L Creatinine (0.6-1.5) mg/dL Est GFR (CKD-EPI)AfAm (60.0-200.0) Est GFR (CKD-EPI)NonAf (60.0-200.0) BUN/Creatinine Ratio (12.00-20.00) Ratio Glucose (70-110) mg/dL POC Glucose (mg/dL) 207 H 180 H (75-99) mg/dL Total Bilirubin (0.3-1.2) mg/dL ALT (8-44) U/L Total Protein (6.2-8.2) g/dL Albumin (3.80-4.90) g/dL Albumin/Globulin Ratio (1.60-3.17) g/dL Microbiology - Last 24 Hours (Table) 10/26/20 00:14 Urine Culture - Preliminary Urine,Voided Yeast species
[2020-10-28] MEDS: SODIUM CHLORIDE 0.9% 1,000 ML IV SCH (10:20)
--- NOTE | 2020-10-28 10:39 | XR ---
EXAMINATION TYPE: XR chest 1V DATE OF EXAM: 10/28/2020 COMPARISON: 10/27/2020 HISTORY: Tachycardia FINDINGS: There are bilateral pleural effusions with cardiomegaly and bibasilar infiltrate. There is a diffuse interstitial pattern. Atherosclerotic change aorta. Diffuse osteopenia. Arthropathy of the shoulders . IMPRESSION: 1. Stable x-ray correlate for CHF versus diffuse pneumonia.
[2020-10-28 12:14] LABS: Glucose,Whole Blood 224 mg/dL (75-99)
[2020-10-28 14:28] LABS: African American GFR (CKD) 33.8 (60.0-200.0); Anion Gap 11.8 mmol/L (4.00-12.00); BUN/Creat Ratio 12.94 Ratio (12.00-20.00); Calcium 8.6 mg/dL (8.7-10.3); Carbon Dioxide 22.2 mmol/L (21.6-31.8); Non-African American GFR(CKD) 29.2 (60.0-200.0); Potassium 4.3 mmol/L (3.5-5.5)
--- NOTE | 2020-10-28 16:04 | PN ---
PROGRESS NOTE DATE OF SERVICE: 10/28/2020 REASON FOR FOLLOWUP: Colitis. INTERVAL HISTORY: The patient is currently afebrile. The patient is breathing comfortably. The patient denies having any chest pain, shortness of breath or cough. No abdominal pain and no further diarrhea reported. PHYSICAL EXAMINATION: Blood pressure 138/78 with a pulse of 94, temperature 98.8. She is 94% on 3 L nasal cannula. General description is an elderly female lying in bed in no distress. RESPIRATORY SYSTEM: Unlabored breathing. Clear to auscultation anteriorly. HEART: S1, S2. Regular rate and rhythm. ABDOMEN: Soft. LABS: Hemoglobin 8.4, white count 7.6. DIAGNOSTIC IMPRESSION AND PLAN: 1. Patient with colitis. Overall improvement with Cipro and Flagyl; continue for another few days, as the patient's fever resolved and white count is normal. 2. Positive urine with yeast; possible colonization. No need for any antibiotic therapy for the same. MMODL / IJN: [id number] / MTDD
--- NOTE | 2020-10-28 16:12 | NM ---
EXAMINATION TYPE: NM pul perfusion DATE OF EXAM: 10/28/2020 COMPARISON: NONE HISTORY: Shortness of breath Following administration of 5.1 mCi Tc 99m MAA. Images obtained post injection. FINDINGS: Perfusion only scan demonstrates a moderate wedge-shaped defect left lower lobe laterally. Additional smaller wedge-shaped defect is seen on the posterior image involving the right midlung zone. IMPRESSION: Findings demonstrate high probability for pulmonary embolism.
--- NOTE | 2020-10-28 16:51 | P.CNPUL ---
History of Present Illness Consult date: 10/28/20 Requesting physician: Ana Almodovar Reason for consult: dyspnea, cough, hypoxemia, abnormal CXR/CT Chief complaint: Shortness of breath, cough, hypoxia History of present illness: This is a 75-year-old female with past medical history of CAD, diabetes mellitus type 2, hypertension, hyperlipidemia, recent surgery on her left ankle, recent history of UTI for which the patient completed a course of antibiotics, and subsequently patient was hospitalized with C. diff colitis. During the same admission patient developed acute GI bleeding, and she underwent EGD and colonoscopy by Dr. Bustillo on 10/22/2020 and was found to have a large duodenal ulcer, gastritis, and pancolitis.. Patient also developed an acute kidney injury related to ATN secondary to multiple loose bowel movements, GI bleeding, and poor oral intake. Patient was discharged home on Cipro and Flagyl on 10/23/2020 with visiting nurses. On 10/25/2020 patient was brought back to the emergency department by EMS for complaints of shortness of breath, decreased level of responsiveness, and increased swelling in her bilateral lower extremities. Of note patient did have lower extremity Dopplers during her prev ious admission on 10/23/2020 which showed no evidence of DVT. Chest x-ray on admission shows pulmonary vascular congestion, and moderate-sized bilateral pleural effusions. Patient's family denied patient having any fever, they do report mild cough with no phlegm production, no hemoptysis, no complaints of chest pain. They also report patient being very weak and tired. On admission her white blood cell count is 11.8, hemoglobin is 10.5, platelet count is 842, INR is 1.0, sodium is 134, potassium is 4.9, chloride is 107, CO2 was 18, BUN was 19, creatinine was 1.49, local was 34, troponin was negative at less than 0.012, proBNP was 4070. Urinalysis showed possibility of urinary tract infec tion, urine culture showed Keeley species. Exhalation is already on a combination of ciprofloxacin and Flagyl. Cardiology saw the patient in consultation for possibility of acute CHF, echocardiogram was completed showing moderate concentric LVH, mildly impaired left ventricle systolic function with an EF of 45-50%, small generalized pericardial effusion. Patient was diuresed, and her renal function slightly worsened, and on today's labs creatinine is up to 1.7. Patient still requiring oxygen, currently at 3 L, with a pulse ox of 97%, remains persistently hypoxemic, follow-up chest x-ray today was completed showing bilateral pleural effusions with cardiomegaly and bibasilar infiltrates, and diffuse interstitial pattern. VQ scan was completed showing a wedge-shaped defect in the left lower lobe laterally, and another smaller wedge-shaped defect involving the right midlung zone, and the findings demonstrated high probability for pulmonary embolism. We were consulted in regards to abnormal VQ scan, and persistent hypoxia Review of Systems All systems: negative Constitutional: Denies chills, Denies fever Eyes: denies blurred vision, denies pain Ears, nose, mouth and throat: Denies headache, Denies sore throat Cardiovascular: Reports decreased exercise tolerance, Reports dyspnea on exertion, Reports edema, Reports leg edema, Denies chest pain, Denies shortness of breath Respiratory: Reports dyspnea, Denies cough Gastrointestinal: Denies abdominal pain, Denies diarrhea, Denies nausea, Denies vomiting Genitourinary: Denies dysuria, Denies hematuria Musculoskeletal: Denies myalgias Integumentary: Denies pruritus, Denies rash Neurological: Denies numbness, Denies weakness Psychiatric: Denies anxiety, Denies depression Endocrine: Denies fatigue, Denies weight change Past Medical History Past Medical History: Coronary Artery Disease (CAD), Diabetes Mellitus, Hyperlipidemia, Hypertension History of Any Multi-Drug Resistant Organisms: None Reported Past Surgical History: Cholecystectomy, Heart Catheterization With Stent, Orthopedic Surgery Additional Past Surgical History / Comment(s): hip surgery, cataract sx, left ankle surgery 2020 Past Anesthesia/Blood Transfusion Reactions: No Reported Reaction Date of Last Stent Placement:: 2000 Past Psychological History: No Psychological Hx Reported Smoking Status: Never smoker Past Alcohol Use History: None Reported Past Drug Use History: None Reported Medications and Allergies Home Medications Medication Instructions Recorded Confirmed Type Clopidogrel [Plavix] 75 mg PO DAILY 09/14/20 10/26/20 History Collagenase [Santyl] 1 applic TOPICAL HS 09/14/20 10/26/20 History Donepezil [Aricept] 5 mg PO DAILY 09/14/20 10/26/20 History Latanoprost/Pf [Latanoprost 0.005% 1 drop BOTH EYES HS 09/14/20 10/26/20 History Eye Drop] OLANZapine [ZyPREXA] 5 mg PO DAILY 09/14/20 10/26/20 History Simvastatin [Zocor] 20 mg PO DAILY 09/14/20 10/26/20 History Cholecalciferol [Vitamin D3 (25 25 mcg PO DAILY 10/09/20 10/26/20 History Mcg = 1000 Iu)] Cholestyramine (with Sugar) 4 gm PO BID@1000,2100 5 Days #10 10/23/20 10/26/20 Rx [Questran Packet] packet Ciprofloxacin HCl [Cipro] 500 mg PO Q12H 7 Days #14 tab 10/23/20 10/26/20 Rx Metoprolol Succinate (ER) [Toprol 200 mg PO DAILY #60 tab.er.24h 10/23/20 10/26/20 Rx XL] Pantoprazole Sodium [Protonix] 40 mg PO BID 30 Days #60 tablet. 10/23/20 10/26/20 Rx Sodium Bicarbonate Tab 650 mg PO BID 30 Days #60 tab 10/23/20 10/26/20 Rx Sucralfate [Carafate] 1 gm PO AC-TID #90 tab 10/23/20 10/26/20 Rx metroNIDAZOLE [Flagyl] 500 mg PO TID 7 Days #21 tab 10/23/20 10/26/20 Rx Acetaminophen Tab [Tylenol] 650 mg PO Q6H PRN 10/26/20 10/26/20 History Glimepiride [Amaryl] 8 mg PO AC-BRKFST 10/26/20 10/26/20 History Pioglitazone [Actos] 30 mg PO DAILY 10/26/20 10/26/20 History Triamterene-Hctz 37.5-25Mg 1 cap PO DAILY 10/26/20 10/26/20 History [Dyazide 37.5-25 Capsule] Allergies Allergy/AdvReac Type Severity Reaction Status Date / Time No Known Allergies Allergy Verified 10/26/20 12:38 Physical Exam Vitals: Vital Signs Temp Pulse Resp BP Pulse Ox 10/28/20 14:40 99.6 F 96 17 125/74 97 10/28/20 08:00 18 10/28/20 07:00 98.8 F 94 17 138/78 94 L 10/28/20 02:00 99.6 F 113 H 16 113/74 97 10/27/20 20:00 99.6 F 110 H 18 125/75 99 GENERAL EXAM: Alert, very pleasant, 75-year-old female on 3 L of oxygen a pulse ox of 97%, patient knows limited Samoan, however she is able to understand Samoan without any difficulty. comfortable in no apparent distress. Patient's daughters are at the bedside. Patient has a mildly congestive cough. HEAD: Normocephalic/atraumatic. EYES: Normal reaction of pupils, equal size. Conjunctiva pink, sclera white. NOSE: Clear with pink turbinates. THROAT: No erythema or exudates. NECK: No masses, no JVD, no thyroid enlargement, no adenopathy. CHEST: No chest wall deformity. Symmetrical expansion. LUNGS: Diminished breath sounds bilaterally, bibasilar crackles CVS: Regular rate and rhythm, normal S1 and S2, no gallops, no murmurs, no rubs ABDOMEN: Soft, nontender. No hepatosplenomegaly, normal bowel sounds, no guarding or rigidity. EXTREMITIES: No clubbing, mild edema, no cyanosis, 2+ pulses and upper and lower extremities. MUSCULOSKELETAL: Muscle strength and tone normal. SPINE: No scoliosis or deformity SKIN: No rashes CENTRAL NERVOUS SYSTEM: Alert and oriented -3. No focal deficits, tone is normal in all 4 extremities. PSYCHIATRIC: Alert and oriented -3. Appropriate affect. Intact judgment and insight. Results - Laboratory Findings CBC and BMP: 10/28/20 06:44 10/28/20 06:44 PT/INR, D-dimer PT 11.0 sec (9.0-12.0) 10/25/20 23:25 INR 1.0 (<1.2) 10/25/20 23:25 Abnormal lab findings: Abnormal Labs 10/25/20 10/25/20 10/25/20 23:06 23:25 23:25 WBC 11.8 H RBC 3.51 L Hgb 10.5 L Hct 33.6 L MCV MCHC RDW 15.9 H Plt Count 842 H D MPV Immature Gran # Neutrophils # 8.6 H Neutrophils # (Manual) Sodium 134 L Chloride Carbon Dioxide 18 L Anion Gap BUN 19 H Creatinine 1.49 H Est GFR (CKD-EPI)AfAm Est GFR (CKD-EPI)NonAf BUN/Creatinine Ratio Glucose 34 L* POC Glucose (mg/dL) 40 L Calcium Total Bilirubin AST 45 H ALT Total Protein Albumin 3.0 L Albumin/Globulin Ratio Urine Appearance Urine Protein Urine Blood Ur Leukocyte Esterase Urine WBC Urine Bacteria Urine Mucus Urine Yeast (Budding) 10/26/20 10/26/20 10/26/20 00:14 03:32 03:40 WBC RBC 2.94 L Hgb 8.7 L D Hct 28.0 L MCV MCHC RDW 16.2 H Plt Count 668 H MPV Immature Gran # Neutrophils # Neutrophils # (Manual) 7.90 H Sodium 135 L Chloride 108 H Carbon Dioxide 20 L Anion Gap BUN 19 H Creatinine 1.53 H Est GFR (CKD-EPI)AfAm Est GFR (CKD-EPI)NonAf BUN/Creatinine Ratio Glucose 69 L POC Glucose (mg/dL) Calcium Total Bilirubin AST ALT Total Protein Albumin Albumin/Globulin Ratio Urine Appearance Cloudy H Urine Protein 1+ H Urine Blood Trace H Ur Leukocyte Esterase Moderate H Urine WBC 14 H Urine Bacteria Occasional H Urine Mucus Rare H Urine Yeast (Budding) Many H 10/26/20 10/26/20 10/26/20 05:14 09:14 16:00 WBC RBC 3.40 L Hgb 10.5 L Hct 32.2 L MCV MCHC RDW 16.3 H Plt Count 504 H MPV Immature Gran # Neutrophils # Neutrophils # (Manual) Sodium Chloride Carbon Dioxide Anion Gap BUN Creatinine Est GFR (CKD-EPI)AfAm Est GFR (CKD-EPI)NonAf BUN/Creatinine Ratio Glucose POC Glucose (mg/dL) 55 L 122 H Calcium Total Bilirubin AST ALT Total Protein Albumin Albumin/Globulin Ratio Urine Appearance Urine Protein Urine Blood Ur Leukocyte Esterase Urine WBC Urine Bacteria Urine Mucus Urine Yeast (Budding) 10/26/20 10/26/20 10/26/20 16:46 17:18 20:21 WBC RBC Hgb Hct MCV MCHC RDW Plt Count MPV Immature Gran # Neutrophils # Neutrophils # (Manual) Sodium Chloride Carbon Dioxide Anion Gap BUN Creatinine Est GFR (CKD-EPI)AfAm Est GFR (CKD-EPI)NonAf BUN/Creatinine Ratio Glucose POC Glucose (mg/dL) 189 H 175 H 181 H Calcium Total Bilirubin AST ALT Total Protein Albumin Albumin/Globulin Ratio Urine Appearance Urine Protein Urine Blood Ur Leukocyte Esterase Urine WBC Urine Bacteria Urine Mucus Urine Yeast (Budding) 10/26/20 10/27/20 10/27/20 23:07 05:33 05:33 WBC RBC 3.10 L Hgb 9.0 L Hct 30.5 L MCV 98.4 H MCHC 29.5 L RDW 17.2 H Plt Count 550 H MPV 9.0 L Immature Gran # 0.25 H Neutrophils # Neutrophils # (Manual) Sodium Chloride Carbon Dioxide 19.4 L Anion Gap 13.60 H BUN Creatinine 1.7 H Est GFR (CKD-EPI)AfAm 33.8 L Est GFR (CKD-EPI)NonAf 29.2 L BUN/Creatinine Ratio 10.59 L Glucose 147 H POC Glucose (mg/dL) 183 H Calcium Total Bilirubin 0.2 L AST ALT <8 L Total Protein 5.5 L Albumin 2.80 L Albumin/Globulin Ratio 1.04 L Urine Appearance Urine Protein Urine Blood Ur Leukocyte Esterase Urine WBC Urine Bacteria Urine Mucus Urine Yeast (Budding) 10/27/20 10/27/20 10/27/20 07:30 12:02 17:45 WBC RBC Hgb Hct MCV MCHC RDW Plt Count MPV Immature Gran # Neutrophils # Neutrophils # (Manual) Sodium Chloride Carbon Dioxide Anion Gap BUN Creatinine Est GFR (CKD-EPI)AfAm Est GFR (CKD-EPI)NonAf BUN/Creatinine Ratio Glucose POC Glucose (mg/dL) 153 H 187 H 189 H Calcium Total Bilirubin AST ALT Total Protein Albumin Albumin/Globulin Ratio Urine Appearance Urine Protein Urine Blood Ur Leukocyte Esterase Urine WBC Urine Bacteria Urine Mucus Urine Yeast (Budding) 10/27/20 10/28/20 10/28/20 20:35 06:44 06:44 WBC RBC 2.85 L Hgb 8.4 L Hct 28.1 L MCV 98.6 H MCHC 29.9 L RDW 16.5 H Plt Count 508 H MPV 9.0 L Immature Gran # 0.21 H Neutrophils # Neutrophils # (Manual) Sodium Chloride Carbon Dioxide Anion Gap BUN Creatinine 1.7 H Est GFR (CKD-EPI)AfAm 33.8 L Est GFR (CKD-EPI)NonAf 29.2 L BUN/Creatinine Ratio Glucose 186 H POC Glucose (mg/dL) 207 H Calcium 8.6 L Total Bilirubin AST ALT Total Protein Albumin Albumin/Globulin Ratio Urine Appearance Urine Protein Urine Blood Ur Leukocyte Esterase Urine WBC Urine Bacteria Urine Mucus Urine Yeast (Budding) 10/28/20 10/28/20 07:28 12:12 WBC RBC Hgb Hct MCV MCHC RDW Plt Count MPV Immature Gran # Neutrophils # Neutrophils # (Manual) Sodium Chloride Carbon Dioxide Anion Gap BUN Creatinine Est GFR (CKD-EPI)AfAm Est GFR (CKD-EPI)NonAf BUN/Creatinine Ratio Glucose POC Glucose (mg/dL) 180 H 224 H Calcium Total Bilirubin AST ALT Total Protein Albumin Albumin/Globulin Ratio Urine Appearance Urine Protein Urine Blood Ur Leukocyte Esterase Urine WBC Urine Bacteria Urine Mucus Urine Yeast (Budding) - Diagnostic Findings Chest x-ray: report reviewed, image reviewed Additional studies: EKG reviewed, echocardiogram reviewed, VQ scan results reviewed Assessment and Plan Plan: Assessment: #1. Acute hypoxic respiratory failure, multifactorial, related to acute CHF mildly impaired EF of 45-50%, rule out possibility of bibasilar pneumonia. #2. High probability VQ scan, will obtain CTA chest #3. Acute kidney injury #4. Recent hospitalization for C. diff colitis, acute GI blood loss anemia, and patient was found to have a large duodenal ulcer, gastritis, and pancolitis #5. Acute GI blood loss anemia #6. History of hypertension #7. Hyperlipidemia #8. Diabetes mellitus type 2 #9. Coronary artery disease with previous stent placement #10. Lifetime nonsmoker, no history of chronic lung disease #11. Recent history of left ankle surgery in September 2020 at [facility] #12. Left heel pressure ulcer wound #13. Episodes of hypoglycemia, likely related to oral hypoglycemic medications in the setting of acute kidney injury. Currently Actos and Amaryl are both on hold Plan: VQ scan showed high probability for pulmonary embolism We'll obtain CTA chest to rule out possibility of pulmonary embolism, and characterize abnormalities present on the chest x-ray with bilateral pleural effusions and possibility of pneumonia Continue current medical treatment Patient had a recent episode of GI bleeding and anemia We'll review the CTA chest, and if there is a pulmonary embolism will need clearance from GI service For now hemodynamically patient is stable. We will hold her Lasix Continue gentle IV hydration with 0.9 normal saline at 50 ML per hour Follow-up labs, a light sweat and renal profile tomorrow I performed a history & physical examination of the patient and discussed their management with my nurse practitioner, Darlene Vu. I reviewed the nurse practitioner's note and agree with the documented findings and plan of care. Lung sounds are positive for diminished breath sounds with bibasilar crackles. The findings and the impression was discussed with the patient. I attest to the documentation by the nurse practitioner. Time with Patient: Greater than 30
[2020-10-28 17:31] LABS: Glucose,Whole Blood 288 mg/dL (75-99)
[2020-10-28] MEDS: LATANOPROST 0.005% OPHTH DROPS 2.5 ML BTL BOTH EYES SCH (19:33)
[2020-10-28] MEDS: CIPROFLOXACIN HCL 250 MG TAB PO SCH (19:33)
[2020-10-28] MEDS: ACETAMINOPHEN TAB 325 MG TAB PO PRN (19:42)
[2020-10-28 22:33] LABS: Glucose,Whole Blood 285 mg/dL (75-99)
--- NOTE | 2020-10-29 01:55 | P.PN ---
Subjective Progress Note Date: 10/27/20 Principal diagnosis: SOB - Multifactorial Ms. Sofia is a 75-year-old with a past medical history of coronary artery disease, diabetes mellitus, hypertension, hyperlipidemia, left ankle surgery done recently, recent C. diff colitis brought in by her daughter and family secondary to difficulty in breathing. Most of the history is given by her daughter and son-in-law who were present at the bedside as the patient does not speak [place]. They mentioned that during her last hospital stay patient gained significant amount of weight, possibly due to fluid retention and was having mild difficulty in breathing. But last night she was having more shortness of breath that prompted them to bring her to the hospital. She was recently admitted in the hospital from 10/09/2020 2 10/23/2020. Patient has C. diff colitis and was discharged on by mouth antibiotics. During that previous admission patient had acute kidney injury as well. They denied having any fever s chills or rigors. No diarrhea, abdominal pain or nausea. No dysuria or hematuria. They mentioned that she has stage I sacral decubitus ulcer. She also recently had left ankle surgery done, was told not to bear weight on the left lower extremity. No complaints of chest pain or palpitations. No loss of consciousness, headache or visual disturbances. No weakness of the extremities, has generalized weakness. In the ED at the time of admission heart rate 98, respiratory 20, blood pressure 1/31 a 65, saturating at 91% on room air. She had chest x-ray done showing mild chronic congestive heart failure with increased pleural effusion compared to old exam. Reviewing her labs white count of 8.9, hemoglobin 10.4, platelets 504. Sodium 135, potassium 4.7, chloride 108, bicarb 20, BUN 19, creatinine 1.53. Urine analysis positive for moderate leukocyte esterase, 14 WBCs. FOBT negative. EKG showing low voltage with sinus tachycardia. Patient also had significant hypoglycemia with a glucose as low as 34. On 10/27/2020 -patient is seen and examined at the bedside. Patient's family members at the bedside, helping with getting the history from the patient as she is non-Emirati speaking. Her difficulty in breathing is improving, she continues to be on Lasix. No chest pain or palpitations. On reviewing the patient's vitals temperature of 98.5, heart rate 98, respiratory rate 18, blood pressure 133/76, saturating at 98% on 3 L of oxygen. On reviewing the patient's labs white count of 6.4, hemoglobin 9, platelets 550. Sodium 138, potassium 4.2, chloride 105, bicarb 19, BUN 18, creatinine 1.7. Albumin of 2.8. Patient's medications reviewed- Active Medications Acetaminophen (Acetaminophen Tab 325 Mg Tab) 650 mg PO Q6H PRN PRN Reason: Mild Pain or Fever > 100.5 Last Admin: 10/28/20 19:42 Dose: 650 mg Documented by: Albuterol/Ipratropium (Ipratropium-Albuterol 3 Ml Neb) 3 ml INHALATION RT-QID PRN PRN Reason: Shortness Of Breath Or Wheezing Last Admin: 10/26/20 15:50 Dose: 3 ml Documented by: Atorvastatin Calcium (Atorvastatin 10 Mg Tab) 10 mg PO DAILY [facility] Last Admin: 10/28/20 09:58 Dose: 10 mg Documented by: Cholecalciferol (Cholecalciferol 25 Mcg (1000 Iu) Tablet) 25 mcg PO DAILY [facility] Last Admin: 10/28/20 09:58 Dose: 25 mcg Documented by: Cholestyramine Resin (Cholestyramine (With Sugar) 4 Gm Packet) 4 gm PO BID@1000,2100 [facility] Last Admin: 10/28/20 19:31 Dose: 4 gm Documented by: Ciprofloxacin (Ciprofloxacin Hcl 250 Mg Tab) 250 mg PO Q12HR [facility] Stop: 10/29/20 21:01 Last Admin: 10/28/20 19:33 Dose: 250 mg Documented by: Dextrose/Water (Dextrose 50% Syringe 50 Ml) 50 ml IVP ONCE PRN PRN Reason: Hypoglycemia Donepezil HCl (Donepezil 5 Mg Tab) 5 mg PO DAILY [facility] Last Admin: 10/28/20 08:25 Dose: 5 mg Documented by: Heparin Sodium (Porcine) (Heparin Sodium,Porcine/Pf 5,000 Unit/0.5 Ml Syringe) 5,000 unit SQ Q8HR [facility] Last Admin: 10/28/20 22:37 Dose: 5,000 unit Documented by: Sodium Chloride (Saline 0.9%) 1,000 mls @ 50 mls/hr IV .Q20H [facility] Last Admin: 10/28/20 10:20 Dose: 50 mls/hr Documented by: Latanoprost (Latanoprost 0.005% Ophth Drops 2.5 Ml Btl) 1 drops [facility] Last Admin: 10/28/20 19:33 Dose: 1 drops Documented by: Metoprolol Succinate (Metoprolol Succinate (Er) 100 Mg Tab.Er.24h) 200 mg PO DAILY [facility] Last Admin: 10/28/20 09:59 Dose: 200 mg Documented by: Metronidazole (Metronidazole 500 Mg Tab) 500 mg PO TID [facility] Stop: 10/29/20 22:01 Last Admin: 10/28/20 22:37 Dose: 500 mg Documented by: Naloxone HCl (Naloxone 0.4 Mg/Ml 1 Ml Vial) 0.2 mg IV Q2M PRN PRN Reason: Opioid Reversal Olanzapine (Olanzapine 5 Mg Tab) 5 mg PO [facility] Pantoprazole Sodium (Pantoprazole 40 Mg Tablet) 40 mg PO AC-BID [facility] Last Admin: 10/28/20 16:32 Dose: 40 mg Documented by: Spironolactone (Spironolactone 25 Mg Tab) 25 mg PO BID [facility] Last Admin: 10/28/20 19:33 Dose: 25 mg Documented by: Sucralfate (Sucralfate 1 Gm Tab) 1 gm PO AC-TID [facility] Last Admin: 10/28/20 19:15 Dose: Not Given Documented by: Objective - Vital Signs Vital signs: Vital Signs Temp 98.5 F 10/27/20 07:00 Pulse 98 10/27/20 08:00 Resp 18 10/27/20 08:00 BP 147/79 10/27/20 07:00 Pulse Ox 98 10/27/20 07:00 Intake & Output 10/26/20 10/27/20 10/27/20 18:59 06:59 18:59 Output Total 1999 Balance -19991800 700 Weight 69.127 kg Output: Urine 1999 Other: Voiding Method Indwelling Catheter Indwelling Catheter # Bowel Movements 1 1 - Exam PHYSICAL EXAMINATION: GENERAL: Comfortably lying up in the bed appears to be no acute distress. HEENT: Pupils are round and equally reacting to light. EOMI. No scleral icterus. No conjunctival pallor. CARDIOVASCULAR: S1 and S2 present. Tachycardia. PULMONARY: Diminished breath sounds bilaterally at the lower lobes. Mild crackles at the lower lung bases. ABDOMEN: Soft,non -tender, normal bowel sounds. No guarding or rigidity. MUSCULOSKELETAL: No joint swelling or deformity. Stage I sacral decubitus ulcer EXTREMITIES: Positive for pitting edema lower extremities. Left ankle in crpe bandage NEUROLOGICAL: Gross neurological examination did not reveal any focal deficits. SKIN:No rash - Labs CBC & Chem 7: 10/28/20 06:44 10/28/20 06:44 Labs: Abnormal Lab Results - Last 24 Hours (Table) 10/26/20 10/26/20 10/26/20 Range/Units 16:00 16:46 17:18 RBC 3.40 L (3.80-5.40) m/uL Hgb 10.5 L (11.4-16.0) gm/dL Hct 32.2 L (34.0-46.0) % MCV (80.0-97.0) fL MCHC (32.0-37.0) g/dL RDW 16.3 H (11.5-15.5) % Plt Count 504 H (150-450) k/uL MPV (9.5-12.2) fL Immature Gran # (0.00-0.04) X 10*3/uL POC Glucose (mg/dL) 189 H 175 H (75-99) mg/dL 10/26/20 10/26/20 10/27/20 Range/Units 20:21 23:07 05:33 RBC 3.10 L (3.80-5.40) m/uL Hgb 9.0 L (11.4-16.0) gm/dL Hct 30.5 L (34.0-46.0) % MCV 98.4 H (80.0-97.0) fL MCHC 29.5 L (32.0-37.0) g/dL RDW 17.2 H (11.5-15.5) % Plt Count 550 H (150-450) k/uL MPV 9.0 L (9.5-12.2) fL Immature Gran # 0.25 H (0.00-0.04) X 10*3/uL POC Glucose (mg/dL) 181 H 183 H (75-99) mg/dL 10/27/20 Range/Units 07:30 RBC (3.80-5.40) m/uL Hgb (11.4-16.0) gm/dL Hct (34.0-46.0) % MCV (80.0-97.0) fL MCHC (32.0-37.0) g/dL RDW (11.5-15.5) % Plt Count (150-450) k/uL MPV (9.5-12.2) fL Immature Gran # (0.00-0.04) X 10*3/uL POC Glucose (mg/dL) 153 H (75-99) mg/dL Microbiology - Last 24 Hours (Table) 10/26/20 00:14 Urine Culture - Preliminary Urine,Voided Assessment and Plan Assessment: ASSESSMENT Shortness of breath could be secondary to CHF exacerbation vs bilateral pleural effusion vs hypoalbuminemia Diastolic congestive heart failure Bilateral pleural effusion Hypoglycemia Recent C. diff colitis Recent colon polyp removal History of coronary artery disease Diabetes mellitus Dyslipidemia Hypertension Recent history of left ankle fracture Stage I sacral decubitus ulcer Stage III CKD Moderate protein calorie malnutrition PLAN: Patient's shortness of breath could be multifactorial, with chest x-ray showing signs of congestion and elevated BNP, we will obtain an echocardiogram. Patient has been started on IV Lasix 40 mg twice a day by cardiology which will be continued. Will avoid all hypoglycemic agents due to severe hypoglycemia. Patient will be restarted on her antibiotics, for her recent C. diff colitis. She has stage I sacral decubitus ulcer, to change positions frequently. Urine showing Keeley but not albicans/glabrata, ould be contaminant. Cardiology on board and following the patient. Overall prognosis is guarded secondary to chronic multiple complex medical conditions. The treatment plan was discussed i n detail with her daughter and family members at bedside. Further recommendations to follow depending on the progress of the patient.
[2020-10-29] MEDS: SODIUM CHLORIDE 0.9% 1,000 ML IV SCH (05:50)
[2020-10-29 08:05] LABS: Glucose,Whole Blood 204 mg/dL (75-99)
[2020-10-29] MEDS: ATORVASTATIN 10 MG TAB PO SCH (08:30)
[2020-10-29] MEDS: CHOLECALCIFEROL 25 MCG (1000 IU) TABLET PO SCH (08:30)
[2020-10-29] MEDS: SPIRONOLACTONE 25 MG TAB PO SCH (08:30)
[2020-10-29] MEDS: HEPARIN SODIUM,PORCINE/PF 5,000 UNIT/0.5 ML SYRINGE SQ SCH ×3 (08:30→22:07)
[2020-10-29] MEDS: PANTOPRAZOLE 40 MG TABLET PO SCH ×2 (08:30→17:09)
[2020-10-29] MEDS: CIPROFLOXACIN HCL 250 MG TAB PO SCH ×2 (08:30→22:07)
[2020-10-29] MEDS: SUCRALFATE 1 GM TAB PO SCH ×3 (08:30→17:09)
[2020-10-29] MEDS: DONEPEZIL 5 MG TAB PO SCH (08:31)
[2020-10-29] MEDS: METOPROLOL SUCCINATE (ER) 100 MG TAB.ER.24H PO SCH (08:31)
[2020-10-29] MEDS: metroNIDAZOLE 500 MG TAB PO SCH ×3 (08:31→22:13)
--- NOTE | 2020-10-29 08:38 | P.PN ---
Subjective Progress Note Date: 10/28/20 Ms. Sofia is a 75-year-old with a past medical history of coronary artery disease, diabetes mellitus, hypertension, hyperlipidemia, left ankle surgery done recently, recent C. diff colitis brought in by her daughter and family secondary to difficulty in breathing. Most of the history is given by her daughter and son-in-law who were present at the bedside as the patient does not speak [place]. They mentioned that during her last hospital stay patient gained significant amount of weight, possibly due to fluid retention and was having mild difficulty in breathing. But last night she was having more shortness of breath that prompted them to bring her to the hospital. She was recently admitted in the hospital from 10/09/2020 2 10/23/2020. Patient has C. diff colitis and was discharged on by mouth antibiotics. During that previous admission patient had acute kidney injury as well. They denied having any fevers chills or rigors. No diarrhea, abdominal pain or nausea. No dysuria or hematuria. They mentioned that she has stage I sacral decubitus ulcer. She also recently had left ankle surgery done, was told not to bear weight on the left lower extremity. No complaints of chest pain or palpitations. No loss of consciousness, headache or visual disturbances. No weakness of the extremities, has generalized weakness. In the ED at the time of admission heart rate 98, respiratory 20, blood pressure 1/31 a 65, saturating at 91% on room air. She had chest x-ray done showing mild chronic congestive heart failure with increased pleural effusion compared to old exam. Reviewing her labs white count of 8.9, hemoglobin 10.4, platelets 504. Sodium 135, potassium 4.7, chloride 108, bicarb 20, BUN 19, creatinine 1.53. Urine analysis positive for moderate leukocyte esterase, 14 WBCs. FOBT negative. EKG showing low voltage with sinus tachycardia. Patient also had significant hypoglycemia with a glucose as low as 34. 10/28/2020 Patient is seen in follow-up this morning with cardiology following. Patient continues to be lethargic and not eating very much. Patient also continues to have some shortness of breath and diminished breath sounds noted bilaterally and patient continues on 3 L of oxygen via nasal cannula with continued shortness of breath and does not normally wear oxygen in the outpatient setting. Given patient's worsening kidney functions will order VQ scan and consult pulmonary. Patient continues on heparin subcu for now and will discuss with pulmonary about anticoagulation. Will discontinue Lasix for now and continue a gentle IV hydration. Review of systems: Constitutional: reports of fatigue, no reports of fever, or chills Cardiovascular: No reports of chest pain or palpitations Respiratory: reports of shortness of breath and poor inspiration effort GI: No reports of nausea, vomiting, or diarrhea : No reports of dysuria or retention Neurovascular: Reports generalized weakness All medications have been reviewed Active Medications Acetaminophen (Acetaminophen Tab 325 Mg Tab) 650 mg PO Q6H PRN PRN Reason: Mild Pain or Fever > 100.5 Last Admin: 10/26/20 21:21 Dose: 650 mg Documented by: Albuterol/Ipratropium (Ipratropium-Albuterol 3 Ml Neb) 3 ml INHALATION RT-QID PRN PRN Reason: Shortness Of Breath Or Wheezing Last Admin: 10/26/20 15:50 Dose: 3 ml Documented by: Atorvastatin Calcium (Atorvastatin 10 Mg Tab) 10 mg PO DAILY [facility] Last Admin: 10/28/20 09:58 Dose: 10 mg Documented by: Cholecalciferol (Cholecalciferol 25 Mcg (1000 Iu) Tablet) 25 mcg PO DAILY [facility] Last Admin: 10/28/20 09:58 Dose: 25 mcg Documented by: Cholestyramine Resin (Cholestyramine (With Sugar) 4 Gm Packet) 4 gm PO BID@1000,2100 [facility] Last Admin: 10/28/20 08:25 Dose: 4 gm Documented by: Ciprofloxacin (Ciprofloxacin Hcl 250 Mg Tab) 250 mg PO Q12HR [facility] Stop: 10/29/20 21:01 Dextrose/Water (Dextrose 50% Syringe 50 Ml) 50 ml IVP ONCE PRN PRN Reason: Hypoglycemia Donepezil HCl (Donepezil 5 Mg Tab) 5 mg PO DAILY [facility] Last Admin: 10/28/20 08:25 Dose: 5 mg Documented by: Furosemide (Furosemide 20 Mg Tab) 20 mg PO DAILY [facility] Last Admin: 10/28/20 09:57 Dose: 20 mg Documented by: Heparin Sodium (Porcine) (Heparin Sodium,Porcine/Pf 5,000 Unit/0.5 Ml Syringe) 5,000 unit SQ Q8HR [facility] Last Admin: 10/28/20 09:58 Dose: 5,000 unit Documented by: Sodium Chloride (Saline 0.9%) 1,000 mls @ 50 mls/hr IV .Q20H [facility] Latanoprost (Latanoprost 0.005% Ophth Drops 2.5 Ml Btl) 1 drops BOTH EYES [facility] Last Admin: 10/27/20 19:53 Dose: 1 drops Documented by: Metoprolol Succinate (Metoprolol Succinate (Er) 100 Mg Tab.Er.24h) 200 mg PO DAILY [facility] Last Admin: 10/28/20 09:59 Dose: 200 mg Documented by: Metronidazole (Metronidazole 500 Mg Tab) 500 mg PO TID [facility] Stop: 10/29/20 22:01 Last Admin: 10/28/20 08:25 Dose: 500 mg Documented by: Morphine Sulfate (Morphine Sulfate 4 Mg/Ml Syringe) 4 mg IV Q4HR PRN PRN Reason: Severe Pain Naloxone HCl (Naloxone 0.4 Mg/Ml 1 Ml Vial) 0.2 mg IV Q2M PRN PRN Reason: Opioid Reversal Olanzapine (Olanzapine 5 Mg Tab) 5 mg PO [facility] Pantoprazole Sodium (Pantoprazole 40 Mg Tablet) 40 mg PO AC-BID [facility] Last Admin: 10/28/20 09:58 Dose: 40 mg Documented by: Spironolactone (Spironolactone 25 Mg Tab) 25 mg PO BID [facility] Last Admin: 10/28/20 08:24 Dose: 25 mg Documented by: Sucralfate (Sucralfate 1 Gm Tab) 1 gm PO AC-TID [facility] Last Admin: 10/28/20 09:58 Dose: 1 gm Documented by: Objective - Vital Signs Vital signs: Vital Signs Temp 99.6 F 10/28/20 14:40 Pulse 96 10/28/20 14:40 Resp 17 10/28/20 14:40 BP 125/74 10/28/20 14:40 Pulse Ox 97 10/28/20 14:40 Intake & Output 10/27/20 10/28/20 10/28/20 18:59 06:59 18:59 Output Total 1650 Balance -1650 Weight 69.127 kg Output: Urine 1650 Other: Voiding Method Indwelling Catheter Indwelling Catheter # Bowel Movements 1 - Exam GENERAL: Comfortably sitting up in the chair appears to be no acute distress. Continued on 3 L of oxygen via nasal cannula HEENT: Pupils are round and equally reacting to light. EOMI. No scleral icterus. No conjunctival pallor. CARDIOVASCULAR: S1 and S2 present. Tachycardia. PULMONARY: Diminished breath sounds bilaterally at the lower lobes. Mild crackles at the lower lung bases. ABDOMEN: Soft, non-tender, normal bowel sounds. No guarding or rigidity. MUSCULOSKELETAL: No joint swelling or deformity. EXTREMITIES: Positive for pitting edema lower extremities. Left ankle bandage noted NEUROLOGICAL: Gross neurological examination did not reveal any focal deficits. SKIN:No rash, Stage I sacral decubitus ulcer - Labs CBC & Chem 7: 10/28/20 06:44 10/28/20 06:44 Labs: Abnormal Lab Results - Last 24 Hours (Table) 10/27/20 10/27/20 10/28/20 Range/Units 17:45 20:35 06:44 RBC 2.85 L (4.10-5.20) X 10*6/uL Hgb 8.4 L (12.0-15.0) g/dL Hct 28.1 L (37.2-46.3) % MCV 98.6 H (80.0-97.0) fL MCHC 29.9 L (32.0-37.0) g/dL RDW 16.5 H (11.5-14.5) % Plt Count 508 H (140-440) X 10*3/uL MPV 9.0 L (9.5-12.2) fL Immature Gran # 0.21 H (0.00-0.04) X 10*3/uL Creatinine (0.6-1.5) mg/dL Est GFR (CKD-EPI)AfAm (60.0-200.0) Est GFR (CKD-EPI)NonAf (60.0-200.0) Glucose (70-110) mg/dL POC Glucose (mg/dL) 189 H 207 H (75-99) mg/dL Calcium (8.7-10.3) mg/dL 10/28/20 10/28/20 10/28/20 Range/Units 06:44 07:28 12:12 RBC (4.10-5.20) X 10*6/uL Hgb (12.0-15.0) g/dL Hct (37.2-46.3) % MCV (80.0-97.0) fL MCHC (32.0-37.0) g/dL RDW (11.5-14.5) % Plt Count (140-440) X 10*3/uL MPV (9.5-12.2) fL Immature Gran # (0.00-0.04) X 10*3/uL Creatinine 1.7 H (0.6-1.5) mg/dL Est GFR (CKD-EPI)AfAm 33.8 L (60.0-200.0) Est GFR (CKD-EPI)NonAf 29.2 L (60.0-200.0) Glucose 186 H (70-110) mg/dL POC Glucose (mg/dL) 180 H 224 H (75-99) mg/dL Calcium 8.6 L (8.7-10.3) mg/dL Microbiology - Last 24 Hours (Table) 10/26/20 00:14 Urine Culture - Final Urine,Voided Keeley sp,not albicans/galbr Assessment and Plan Assessment: Shortness of breath could be secondary to CHF exacerbation vs bilateral pleural effusion vs hypoalbuminemia Diastolic congestive heart failure Shortness of breath possibly secondary to pulmonary embolism as noted on VQ scan Bilateral pleural effusion Hypoglycemia Recent C. diff colitis Recent colon polyp removal History of coronary artery disease Diabetes mellitus Dyslipidemia Hypertension Recent history of left ankle fracture Stage I sacral decubitus ulcer Stage III CKD Moderate protein calorie malnutrition GI prophylaxis DVT prophylaxis Full code PLAN: Recommend to discontinue oral Lasix for now and continue with gentle IV hydration as patient underwent VQ scan suggestive of a high probability of pulmo nary embolism and have consulted pulmonary. Patient's kidney functions worsening and will consult nephrology for clearance to obtain CTA and will also need to discuss with GI if requiring anticoagulation as patient recently had a GI bleed at previous admission last week. Patient continues on subcutaneous heparin and will await pulmonary and GI recommendations and appreciate their input. Patient continues on 3 L of oxygen via nasal cannula and continues to have shortness of breath and generalized weakness per the patient. Patient's oral intake continues to be poor and needs encouragement. Multiple medical consultations following. Due to multiple complex medical issues prognosis is extremely guarded.
--- NOTE | 2020-10-29 10:11 | P.NPCON ---
History of Present Illness - Reason for Consult acute renal failure, chronic renal failure - History of Present Illness Reason for consultation: Acute kidney injury on chronic kidney disease History of present illness: Patient is a 75-year-old female seen in renal consult dictation for acute kidney injury on chronic kidney disease. Patient has chronic kidney disease stage III with baseline creatinine in the range of 1.3-1.5. Patient was admitted to the hospital recently with GI bleed and also had C. diff at that time. She underwent endoscopy which revealed no active bleeding. She presented to the hospital this time with shortness of breath. VQ scan revealed high probability of PE. She is scheduled to undergo CT angiogram today. She was on Lasix which has been discontinued and is now on normal saline at 50 mL an hour. She does of systolic CHF with ejection fraction of 45-50%. Creatinine on admission was 1.5 and is stable at 1.7 today. She has a Mack catheter and is nonoliguric. Blood pressure stable. No fever or chills. Hemoglobin 8.4 this morning. Patient's currently resting in bed. She is not a reliable historian. Vital signs are stable. General: The patient appeared well nourished and normally developed. HEENT: Head exam is unremarkable. Neck is without jugular venous distension. LUNGS: Breath sounds decreased. Breath sounds decreased. HEART: Tachycardic. ABDOMEN: Soft, no distention. EXTREMITITES: No edema. Past Medical History Past Medical History: Coronary Artery Disease (CAD), Diabetes Mellitus, Hyperlipidemia, Hypertension History of Any Multi-Drug Resistant Organisms: None Reported Past Surgical History: Cholecystectomy, Heart Catheterization With Stent, Ortho pedic Surgery Additional Past Surgical History / Comment(s): hip surgery, cataract sx, left ankle surgery 2020 Past Anesthesia/Blood Transfusion Reactions: No Reported Reaction Date of Last Stent Placement:: 2000 Past Psychological History: No Psychological Hx Reported Smoking Status: Never smoker Past Alcohol Use History: None Reported Past Drug Use History: None Reported Medications and Allergies Home Medications Medication Instructions Recorded Confirmed Type Clopidogrel [Plavix] 75 mg PO DAILY 09/14/20 10/26/20 History Collagenase [Santyl] 1 applic TOPICAL HS 09/14/20 10/26/20 History Donepezil [Aricept] 5 mg PO DAILY 09/14/20 10/26/20 History Latanoprost/Pf [Latanoprost 0.005% 1 drop BOTH EYES HS 09/14/20 10/26/20 History Eye Drop] OLANZapine [ZyPREXA] 5 mg PO DAILY 09/14/20 10/26/20 History Simvastatin [Zocor] 20 mg PO DAILY 09/14/20 10/26/20 History Cholecalciferol [Vitamin D3 (25 25 mcg PO DAILY 10/09/20 10/26/20 History Mcg = 1000 Iu)] Cholestyramine (with Sugar) 4 gm PO BID@1000,2100 5 Days #10 10/23/20 10/26/20 Rx [Questran Packet] packet Ciprofloxacin HCl [Cipro] 500 mg PO Q12H 7 Days #14 tab 10/23/20 10/26/20 Rx Metoprolol Succinate (ER) [Toprol 200 mg PO DAILY #60 tab.er.24h 10/23/20 10/26/20 Rx XL] Pantoprazole Sodium [Protonix] 40 mg PO BID 30 Days #60 tablet.dr 10/23/20 10/26/20 Rx Sodium Bicarbonate Tab 650 mg PO BID 30 Days #60 tab 10/23/20 10/26/20 Rx Sucralfate [Carafate] 1 gm PO AC-TID #90 tab 10/23/20 10/26/20 Rx metroNIDAZOLE [Flagyl] 500 mg PO TID 7 Days #21 tab 10/23/20 10/26/20 Rx Acetaminophen Tab [Tylenol] 650 mg PO Q6H PRN 10/26/20 10/26/20 History Glimepiride [Amaryl] 8 mg PO AC-BRKFST 10/26/20 10/26/20 History Pioglitazone [Actos] 30 mg PO DAILY 10/26/20 10/26/20 History Triamterene-Hctz 37.5-25Mg 1 cap PO DAILY 10/26/20 10/26/20 History [Dyazide 37.5-25 Capsule] Allergies Allergy/AdvReac Type Severity Reaction Status Date / Time No Known Allergies Allergy Verified 10/26/20 12:38 Physical Exam Vitals: Vital Signs Temp Pulse Resp BP Pulse Ox 10/29/20 07:00 98.4 F 116 H 16 115/62 90 L 10/29/20 02:00 123 H 10/29/20 01:40 99.2 F 123 H 16 120/69 95 08/24/21 20:00 127 H 18 10/28/20 19:40 98.3 F 127 H 18 143/85 100 10/28/20 14:40 99.6 F 96 17 125/74 97 Intake and Output 10/28/20 10/29/20 10/29/20 22:59 06:59 14:59 Output Total 200 750 Balance -200 -750 Output: Urine 200 750 Results - Lab Results Most recent lab results Calcium 8.6 mg/dL (8.7-10.3) L 10/28/20 06:44 Phosphorus 3.0 mg/dL (2.5-4.5) 10/25/20 23:25 Magnesium 1.8 mg/dL (1.6-2.3) 10/25/20 23:25 10/28/20 06:44 10/28/20 06:44 Assessment and Plan Plan: Assessment: 1. Acute kidney injury secondary to ATN. Concern for cardiorenal syndrome. Creatinine stable at 1.7 today. 2. Chronic kidney disease stage IIIb with baseline creatinine in the range of 1.3-1.5 secondary to diabetic kidney disease. 3. Anemia of chronic kidney disease. No active bleeding. Rule out iron deficiency. 4. Diabetes mellitus. 5. High probability of PE. CTA pending. 6. Acute on chronic systolic CHF with ejection fraction of 45-50%. 7. Metabolic acidosis secondary to acute kidney injury. Better. Plan: Maintain normal saline. Hep-Lock IV fluids 6 hours after cardiac catheterizat ion. Resume Lasix tonight. Continue to monitor renal function and urine output closely. Monitor for contrast-induced acute kidney injury. Avoid nephrotoxins. Check iron studies. Add Anitha. Thank you for the consultation. I will continue to follow the patient did during her hospital stay.
[2020-10-29] MEDS ORDERED: DARBEPOETIN ALFA 40 MCG/0.4 ML SYRINGE SQ SCH (10:30)
--- NOTE | 2020-10-29 11:10 | US ---
EXAMINATION TYPE: US venous doppler duplex LE BI DATE OF EXAM: 10/28/2020 5:04 PM COMPARISON: US 10/23/2020 CLINICAL HISTORY: rule out DVT. Left ankle pain SIDE PERFORMED: Bilateral TECHNIQUE: The lower extremity deep venous system is examined utilizing real time linear array sonog urbano with graded compression, doppler sonography and color-flow sonography. VESSELS IMAGED: Common Femoral Vein Deep Femoral Vein Greater Saphenous Vein * Femoral Vein Popliteal Vein Small Saphenous Vein * Proximal Calf Veins (* superficial vessels) Right Leg: Negative for DVT Left Leg: Negative for DVT IMPRESSION: No evidence for DVT.
--- NOTE | 2020-10-29 11:17 | P.PN ---
Subjective 10/29/2020 Patient is seen and examined resting comfortably laying flat in bed in no acute distress. She continues to complain of ongoing shortness of breath. She underwent a VQ scan yesterday revealing high probability for pulmonary embolism. She was seen and evaluated by Dr. Wiseman and is cleared to undergo a CT angios today for definitive diagnosis. Blood pressure 115/62 heart rate 116 afebrile maintaining low-normal oxygen saturation of 90% on room air. Telemetry tracings reveals sinus tachycardia, no underlying arrhythmia noted. Daily labs pending. GENERAL: Well-appearing, well-nourished and in no acute distress. NECK: Supple without JVD or thyromegaly. LUNGS: Breath sounds clear to auscultation bilaterally. Respiration equal and unlabored. No wheezes, rales or rhonchi. HEART: Tachycardic, Regular rate and rhythm without murmurs, rubs or gallops. S1 and S2 heard. EXTREMITIES: Normal range of motion, no edema. No clubbing or cyanosis. Peripheral pulses intact. ASSESSMENT Acute diastolic heart failure Sinus tachycardia Bilateral pleural effusions Hypertension Dyslipidemia Diabetes mellitus Urinary tract infection PLAN Proceed with CTA for definitive diagnosis of pulmonary embolism. Nurse Practitioner note has been reviewed, I agree with a documented findings and plan of care. Patient was seen and examined. Objective - Vital Signs Vital signs: Vital Signs Temp 98.4 F 10/29/20 07:00 Pulse 116 H 10/29/20 08:00 Resp 16 10/29/20 08:00 BP 115/62 10/29/20 07:00 Pulse Ox 90 L 10/29/20 07:00 Intake & Output 10/28/20 10/29/20 10/29/20 18:59 06:59 18:59 Output Total 950 Balance -950 Output: Urine 950 Other: Voiding Method Indwelling Catheter # Voids 4 - Labs CBC & Chem 7: 10/28/20 06:44 10/28/20 06:44 Labs: Abnormal Lab Results - Last 24 Hours (Table) 10/28/20 10/28/20 10/28/20 Range/Units 06:44 12:12 17:29 D-Dimer (<0.60) mg/L FEU Creatinine 1.7 H (0.6-1.5) mg/dL Est GFR (CKD-EPI)AfAm 33.8 L (60.0-200.0) Est GFR (CKD-EPI)NonAf 29.2 L (60.0-200.0) Glucose 186 H (70-110) mg/dL POC Glucose (mg/dL) 224 H 288 H (75-99) mg/dL Calcium 8.6 L (8.7-10.3) mg/dL 10/28/20 10/28/20 10/29/20 Range/Units 18:25 22:31 08:04 D-Dimer 2.74 H (<0.60) mg/L FEU Creatinine (0.6-1.5) mg/dL Est GFR (CKD-EPI)AfAm (60.0-200.0) Est GFR (CKD-EPI)NonAf (60.0-200.0) Glucose (70-110) mg/dL POC Glucose (mg/dL) 285 H 204 H (75-99) mg/dL Calcium (8.7-10.3) mg/dL Microbiology - Last 24 Hours (Table) 10/26/20 00:14 Urine Culture - Final Urine,Voided Keeley sp,not albicans/galbr
--- NOTE | 2020-10-29 11:28 | CT ---
EXAMINATION TYPE: CT chest angio for PE DATE OF EXAM: 10/29/2020 COMPARISON: Radiograph 10/28/2020 HISTORY: 75-year-old female Shortness of breath and cough. TECHNIQUE: Contiguous axial scanning of the chest performed with IV Contrast, patient injected with 5 2 mL of Isovue 370. Coronal/sagittal MIP reconstructions performed. CT DLP: 501 mGycm Automated exposure control for dose reduction was used. FINDINGS: The heart is mildly enlarged with three-vessel coronary artery calcifications. There is also a modera te pericardial effusion measuring up to 1.8 cm thick towards the base of the heart. No flattening of the interventricular septum or reflux of contrast hepatic veins. Aorta normal caliber with bovine configuration to the aortic arch and scattered mild atherosclerotic calcifications. There is satisfactory opacification of the pulmonary arterial system with scattered breathing motion artifact. No definite pulmonary embolus. No thoracic adenopathy by CT size criteria. There are moderate bilateral pleural effusions. Adjacent atelectatic collapse of most of the left low er lobe. Fluid fills the left lower lobe bronchus. There is segmental collapse lateral right middle l obe and additional complete right lower lobe collapse. Otherwise the upper abdomen shows no gross abnormality. Generalized anasarca change. Bones: No osseous destructive process. IMPRESSION: 1. SOME BREATHING MOTION ARTIFACT LIMITS THE ASSESSMENT. NO DEFINITE PULMONARY EMBOLUS. 2. MODERATE PERICARDIAL EFFUSION MEASURING UP TO 1.8 CM THICK TOWARDS THE BASE OF THE HEART. 3. ADDITIONALLY, THERE ARE MODERATE BILATERAL PLEURAL EFFUSIONS. ON THE RIGHT, THERE IS ADJACENT RIGH T LOWER LOBE COLLAPSE, AND SEGMENTAL PARTIAL COLLAPSE OF THE RIGHT MIDDLE LOBE. ON THE LEFT, THERE IS NEARLY COMPLETE COLLAPSE OF THE LEFT LOWER LOBE AND FLUID FILLS THE LEFT LOWER LOBE BRONCHUS. 4. GIVEN THE EFFUSIONS, CARDIOMEGALY, AND GENERALIZED ANASARCA, CORRELATE FOR CHF/FLUID OVERLOAD STAT E. 5. CAD WITH 3 VESSEL CORONARY ARTERY CALCIFICATIONS.
[2020-10-29] MEDS ORDERED: FUROSEMIDE 10 MG/ML 4 ML VIAL IV ONE (11:42)
[2020-10-29] MEDS ORDERED: FUROSEMIDE 10 MG/ML 2 ML VIAL IV ONE (11:42)
[2020-10-29] MEDS: CHOLESTYRAMINE (WITH SUGAR) 4 GM PACKET PO SCH ×2 (11:55→22:07)
--- NOTE | 2020-10-29 12:32 | P.PN ---
Subjective Progress Note Date: 10/29/20 Principal diagnosis: Acute hypoxic respiratory failure This is a 75-year-old female with past medical history of CAD, diabetes mellitus type 2, hypertension, hyperlipidemia, recent surgery on her left ankle, recent history of UTI for which the patient completed a course of antibiotics, and subsequently patient was hospitalized with C. diff colitis. During the same admission patient developed acute GI bleeding, and she underwent EGD and colonoscopy by Dr. Bustillo on 10/22/2020 and was found to have a large duodenal ulcer, gastritis, and pancolitis.. Patient also developed an acute kidney injury related to ATN secondary to multiple loose bowel movements, GI bleeding, and poor oral intake. Patient was discharged home on Cipro and Flagyl on 10/23/2020 with visiting nurses. On 10/25/2020 patient was brought back to the emergency department by EMS for complaints of shortness of breath, decreased level of responsiveness, and increased swelling in her bilateral lower extremities. Of note patient did have lower extremity Dopplers during her previous admission on 10/23/2020 which showed no evidence of DVT. Chest x-ray on admission shows pulmonary vascular congestion, and moderate-sized bilateral pleural effusions. Patient's family denied patient having any fever, they do report mild cough with no phlegm production, no hemoptysis, no complaints of chest pain. They also report patient being very weak and tired. On admission her white blood cell count is 11.8, hemoglobin is 10.5, platelet count is 842, INR is 1.0, sodium is 134, potassium is 4.9, chloride is 107, CO2 was 18, BUN was 19, creatinine was 1.49, local was 34, troponin was negative at less than 0.012, proBNP was 4070. Urinalysis showed possibility of urinary tract infection, urine culture showed Keeley species. Exhalation is already on a combination of ciprofloxacin and Flagyl. Cardiology saw the patient in consultation for possibility of acute CHF, echocardiogram was completed showing moderate concentric LVH, mildly impaired left ventricle systolic function with an EF of 45-50%, small generalized pericardial effusion. Patient was diuresed, and her renal function slightly worsened, and on today's labs creatinine is up to 1.7. Patient still requiring oxygen, currently at 3 L, with a pulse ox of 97%, remains persistently hypoxemic, follow-up chest x-ray today was completed showing bilateral pleural effusions with cardiomegaly and bibasilar infiltrates, and diffuse interstitial pattern. VQ scan was completed showing a wedge-shaped defect in the left lower lobe laterally, and another smaller wedge-shaped defect involving the right midlung zone, and the findings demonstrated high probability for pulmonary embolism. We were consulted in regards to abnormal VQ scan, and persistent hypoxia The patient is seen today 10/29/2020 in follow-up on the regular medical floor. She is currently resting comfortably in bed. Awake and alert in no acute distress. She is maintaining O2 saturations in the mid 90s on 2 L/m per nasal cannula. Afebrile. Tachycardic. CT angiogram ruled out pulmonary embolism. There is moderate pericardial effusion. Moderate bilateral pleural effusions with surrounding atelectasis. Cardiomegaly. Coronary artery calcifications. Urine culture positive for Keeley species. Blood glucose 204. Other labs are pending. She is currently on Cipro and Flagyl. Been initiated on bronchodilators. Heparin for DVT prophylaxis. Objective - Vital Signs Vital signs: Vital Signs Temp 98.4 F 10/29/20 07:00 Pulse 116 H 10/29/20 08:00 Resp 16 10/29/20 08:00 BP 115/62 10/29/20 07:00 Pulse Ox 90 L 10/29/20 07:00 Intake & Output 10/28/20 10/29/20 10/29/20 18:59 06:59 18:59 Output Total 950 Balance -950 Output: Urine 950 Other: Voiding Method Indwelling Catheter # Voids 4 - Exam GENERAL EXAM: Alert, pleasant 75-year-old female patient, and 2 L nasal cannula, fairly, comfortable in no apparent distress. HEAD: Normocephalic. EYES: Normal reaction of pupils, equal size. NOSE: Clear with pink turbinates. THROAT: No erythema or exudates. NECK: No masses, no JVD. CHEST: No chest wall deformity. LUNGS: Equal air entry with crackles in the bilateral bases, diminished. CVS: S1 and S2 normal with no audible murmur, regular rhythm. ABDOMEN: No hepatosplenomegaly, normal bowel sounds, no guarding or rigidity. SPINE: No scoliosis or deformity SKIN: No rashes CENTRAL NERVOUS SYSTEM: No focal deficits, tone is normal in all 4 extremities. EXTREMITIES: There is no peripheral edema. No clubbing, no cyanosis. Peripheral pulses are intact. - Labs CBC & Chem 7: 10/28/20 06:44 10/28/20 06:44 Labs: Abnormal Lab Results - Last 24 Hours (Table) 10/28/20 10/28/20 10/28/20 Range/Units 06:44 17:29 18:25 D-Dimer 2.74 H (<0.60) mg/L FEU Creatinine 1.7 H (0.6-1.5) mg/dL Est GFR (CKD-EPI)AfAm 33.8 L (60.0-200.0) Est GFR (CKD-EPI)NonAf 29.2 L (60.0-200.0) Glucose 186 H (70-110) mg/dL POC Glucose (mg/dL) 288 H (75-99) mg/dL Calcium 8.6 L (8.7-10.3) mg/dL 10/28/20 10/29/20 Range/Units 22:31 08:04 D-Dimer (<0.60) mg/L FEU Creatinine (0.6-1.5) mg/dL Est GFR (CKD-EPI)AfAm (60.0-200.0) Est GFR (CKD-EPI)NonAf (60.0-200.0) Glucose (70-110) mg/dL POC Glucose (mg/dL) 285 H 204 H (75-99) mg/dL Calcium (8.7-10.3) mg/dL Microbiology - Last 24 Hours (Table) 10/26/20 00:14 Urine Culture - Final Urine,Voided Keeley sp,not albicans/galbr Assessment and Plan Assessment: 1 Acute hypoxic respiratory failure, multifactorial, related to acute CHF mildly impaired EF of 45-50%, rule out possibility of bibasilar pneumonia. 2 High probability VQ scan, will obtain CTA chest 3 Acute kidney injury 4 Recent hospitalization for C. diff colitis, acute GI blood loss anemia, and patient was found to have a large duodenal ulcer, gastritis, and pancolitis 5 Acute GI blood loss anemia 6 History of hypertension 7 Hyperlipidemia 8 Diabetes mellitus type 2 9 Coronary artery disease with previous stent placement 10 Lifetime nonsmoker, no history of chronic lung disease 11 Recent history of left ankle surgery in September 2020 at [facility] 12 Left heel pressure ulcer wound 13 Episodes of hypoglycemia, likely related to oral hypoglycemic medications in the setting of acute kidney injury. Currently Actos and Amaryl are both on hold Plan: The patient was seen and evaluated by Dr. Chambers CT angiogram ruled out pulmonary embolism Add Lasix 40 mg IVP 1 today Follow up BMP in a.m. Follow-up chest x-ray in a.m. May consider thoracentesis if continued pleural effusions Titrate the FiO2 as tolerated We will continue to follow I, the cosigning physician, performed a history & physical examination of the patient. Lungs sounds crackles in the bilateral posterior bases, diminished. Maintaining good O2 saturations in the 90s on 2 L/m per nasal cannula. I discussed the assessment and plan of care with my nurse practitioner, Saskia Padilla. I attest to the above note as dictated by her.
[2020-10-29 13:13] LABS: Glucose,Whole Blood 249 mg/dL (75-99)
--- NOTE | 2020-10-29 13:56 | CDI ---
Documentation Clarification Form Date: 10/29/2020 01:39:49 PM From: Laura Ozuna CCS, CCDS Admit Date: 10/28/2020 10:09:00 AM Patient Name: Jigna Sofia Visit Number: [id number] Discharge Date: ATTENTION: The Clinical Documentation Specialists (CDI) and [facility] Coding Staff appreciate your assistance in clarifying documentation. Please respond to the clarification below the line at the bottom and electronically sign. The CDI & [facility] Coding staff will review the response and follow-up if needed. Please note: Queries are made part of the Legal Health Record. If you have any questions, please contact the author of this message via ITS. Dr. Talisha Argueta: Conflicting documentation has been found in the medical record. Please clarify the type and acuity of CHF: Per the 10/26 Cardiology Consult: Consulted for CHF. Recent ECHO shows LV function of 55-60%. Assessment: Diastolic Heart Failure. Per the 10/26 H/P: Diastolic CHF. Per the 10/29 Nephrology Consult: Acute on Chronic Systolic CHF w/EF 45-50%. History/Risk Factors per the 10/26 H/P: Chronic CHF, CAD, Hypertension, Hyperlipidemia, DM, CKD Stage 3b. Clinical Indicators: Presented to the ED on 10/25 via EMS with SOB & Low Blood Sugar. ED Clinical Impression: Acute pulmonary edema, CHF, Hypoglycemia 10/25 VS: T ( ), P 98, R 20 (sob), BP 134/65, PO 91 RA, BMI: 26.2 10/25 LAB: BNP 4070 10/25 CXR: There is evidence of mild chronic congestive heart failure. There is increased pleural fluid compared to old exam. 10/27 CXR: Stable features of congestive failure. 10/27 ECHO: Left ventricular size is normal. Moderate LVH, Left ventricular systolic function is mildly impaired with EF 45-50%. Mild thickening of the anterior mitral valve leaflet. Small, generalized pericardial effusion. Previous ECHO 10/15/2020: Left ventricular size is normal. Mild LVH. Left ventricular systolic function is normal w/EF 55/60%. Mild MR, Mild TR, Trace/mild pulmonic regurgitation, Small pericardial effusion near the left ventricle. Treatment 10/25: O2 2-3Lnc, IV Na Cl 1,000 mls @ 999 mls/hr q1H, IV Dextrose/Water 50 mls x1 10/26: O2 3Lnc, INH Duoneb prn, IV Morphine, IV Narcan, IV Zofran, IV Dextrose/Na Cl 83 mls/hr q12H, IV Lasix 40 mg x1 Please clarify which diagnosis is most appropriate: [ ] Acute Systolic CHF [ ] Acute on Chronic Systolic CHF [ ] Acute Diastolic CHF [ ] Acute on Chronic Diastolic CHF [ ] Acute on Chronic Combined Systolic and Diastolic CHF [ ] Other (please specify) [ ] Unable to determine (Template Last Revised: May 2020) Unable to determine MTDD
[2020-10-29 14:48] LABS: African American GFR (CKD) 39.4 (60.0-200.0); BUN/Creat Ratio 13.33 Ratio (12.00-20.00); Potassium 4.4 mmol/L (3.5-5.5)
--- NOTE | 2020-10-29 15:45 | PN ---
PROGRESS NOTE DATE OF SERVICE: 10/29/2020 REASON FOR FOLLOWUP: 1. Colitis. 2. Positive urine culture. INTERVAL HISTORY: The patient is afebrile. The patient is currently breathing comfortably on room air. Denies having any chest pain, shortness of breath or cough. No abdominal pain and no diarrhea has been reported. PHYSICAL EXAMINATION: Blood pressure is 115/62 with a pulse of 116, temperature 98.4. She is 94 % on room air. GENERAL DESCRIPTION: General description is an elderly female lying in bed in no distress. RESPIRATORY SYSTEM: Unlabored breathing. Decreased breath sounds at the bases. No wheeze. HEART: S1, S2. Regular rate and rhythm. ABDOMEN: Soft. No tenderness. Urine showing is a renato, non albicans. DIAGNOSTIC IMPRESSION AND PLAN: 1. Patient with colitis. Overall improvement on Cipro and Flagyl; to continue for another 10 days. 2. Positive culture with renato, more likely colonization involving Mack catheter. We will change her Mack catheter and obtain urine culture from the new Mack. No need for antifungal at this point. MMODL / IJN: [id number] / MTDD
--- NOTE | 2020-10-29 15:53 | P.PN ---
Subjective Progress Note Date: 10/29/20 Ms. Sofia is a 75-year-old with a past medical history of coronary artery disease, diabetes mellitus, hypertension, hyperlipidemia, left ankle surgery done recently, recent C. diff colitis brought in by her daughter and family secondary to difficulty in breathing. Most of the history is given by her daughter and son-in-law who were present at the bedside as the patient does not speak Persian. They mentioned that during her last hospital stay patient gained significant amount of weight, possibly due to fluid retention and was having mild difficulty in breathing. But last night she was having more shortness of breath that prompted them to bring her to the hospital. She was recently admitted in the hospital from 10/09/2020 2 10/23/2020. Patient has C. diff colitis and was discharged on by mouth antibiotics. During that previous admission patient had acute kidney injury as well. They denied having any fevers chills or rigors. No diarrhea, abdominal pain or nausea. No dysuria or hematuria. They mentioned that she has stage I sacral decubitus ulcer. She also recently had left ankle surgery done, was told not to bear weight on the left lower extremity. No complaints of chest pain or palpitations. No loss of consciousness, headache or visual disturbances. No weakness of the extremities, has generalized weakness. In the ED at the time of admission heart rate 98, respiratory 20, blood pressure 1/31 a 65, saturating at 91% on room air. She had chest x-ray done showing mild chronic congestive heart failure with increased pleural effusion compared to old exam. Reviewing her labs white count of 8.9, hemoglobin 10.4, platelets 504. Sodium 135, potassium 4.7, chloride 108, bicarb 20, BUN 19, creatinine 1.53. Urine analysis positive for moderate leukocyte esterase, 14 WBCs. FOBT negative. EKG showing low voltage with sinus tachycardia. Patient also had significant hypoglycemia with a glucose as low as 34. 10/28/2020 Patient is seen in follow-up this morning with cardiology following. Patient continues to be lethargic and not eating very much. Patient also continues to have some shortness of breath and diminished breath sounds noted bilaterally and patient continues on 3 L of oxygen via nasal cannula with continued shortness of breath and does not normally wear oxygen in the outpatient setting. Given patient's worsening kidney functions will order VQ scan and consult pulmonary. Patient continues on heparin subcu for now and will discuss with pulmonary about anticoagulation. Will discontinue Lasix for now and continue a gentle IV hydration. 10/29/2020 Patient is seen and evaluated in follow-up this morning with family at the bedside and multiple medical consultations following. Patient has been seen and evaluated by nephrology for renal clearance for CTA as creatinine was elevated and maintained on gentle IV hydration and Lasix was discontinued. Patient cleared for CTA to rule out possible pulmonary embolism as noted on VQ scan. CTA was negative for pulmonary embolism and noted to have continued large bilateral pleural effusions. Pulmonary is following and will be given a dose of Lasix IV push after CTA and required IV hydration. Continues to be short of breath when currently maintained on 3-4 L of oxygen via nasal cannula. Patient continues to not eat very much and discussed with family at the bedside who states this is chronic and she only eats at home. She does eat the food that they bring in. Patient continues to be extremely weak and have discussed possible rehab with family and they are adamant about her returning home and does have home care in the outpatient setting. Will repeat a.m. labs and continue to monitor closely. Review of systems: Constitutional: reports of fatigue, no reports of fever, or chills Cardiovascular: No reports of chest pain or palpitations Respiratory: reports of shortness of breath and poor inspiration effort GI: No reports of nausea, vomiting, or diarrhea : No reports of dysuria or retention Neurovascular: Reports generalized weakness All medications have been reviewed Active Medications Acetaminophen (Acetaminophen Tab 325 Mg Tab) 650 mg PO Q6H PRN PRN Reason: Mild Pain or Fever > 100.5 Last Admin: 10/28/20 19:42 Dose: 650 mg Documented by: Albuterol/Ipratropium (Ipratropium-Albuterol 3 Ml Neb) 3 ml INHALATION RT-QID PRN PRN Reason: Shortness Of Breath Or Wheezing Last Admin: 10/26/20 15:50 Dose: 3 ml Documented by: Atorvastatin Calcium (Atorvastatin 10 Mg Tab) 10 mg PO DAILY [facility] Last Admin: 10/29/20 08:30 Dose: 10 mg Documented by: Cholecalciferol (Cholecalciferol 25 Mcg (1000 Iu) Tablet) 25 mcg PO DAILY [facility] Last Admin: 10/29/20 08:30 Dose: 25 mcg Documented by: Cholestyramine Resin (Cholestyramine (With Sugar) 4 Gm Packet) 4 gm PO BID@1000,2100 [facility] Last Admin: 10/29/20 11:55 Dose: 4 gm Documented by: Ciprofloxacin (Ciprofloxacin Hcl 250 Mg Tab) 250 mg PO Q12HR [facility] Stop: 10/29/20 21:01 Last Admin: 10/29/20 08:30 Dose: 250 mg Documented by: Darbepoetin Aba (Darbepoetin Aba 40 Mcg/0.4 Ml Syringe) 40 mcg SQ Q7D [facility] Last Admin: 10/29/20 11:56 Dose: 40 mcg Documented by: Dextrose/Water (Dextrose 50% Syringe 50 Ml) 50 ml IVP ONCE PRN PRN Reason: Hypoglycemia Donepezil HCl (Donepezil 5 Mg Tab) 5 mg PO DAILY [facility] Last Admin: 10/29/20 08:31 Dose: 5 mg Documented by: Heparin Sodium (Porcine) (Heparin Sodium,Porcine/Pf 5,000 Unit/0.5 Ml Syringe) 5,000 unit SQ Q8HR [facility] Last Admin: 10/29/20 08:30 Dose: 5,000 unit Documented by: Sodium Chloride (Saline 0.9%) 1,000 mls @ 50 mls/hr IV .Q20H [facility] Last Admin: 10/29/20 05:50 Dose: Not Given Documented by: Latanoprost (Latanoprost 0.005% Ophth Drops 2.5 Ml Btl) 1 drops BOTH EYES [facility] Last Admin: 10/28/20 19:33 Dose: 1 drops Documented by: Metoprolol Succinate (Metoprolol Succinate (Er) 100 Mg Tab.Er.24h) 200 mg PO DAILY [facility] Last Admin: 10/29/20 08:31 Dose: 200 mg Documented by: Metronidazole (Metronidazole 500 Mg Tab) 500 mg PO TID [facility] Stop: 10/29/20 22:01 Last Admin: 10/29/20 08:31 Dose: 500 mg Documented by: Naloxone HCl (Naloxone 0.4 Mg/Ml 1 Ml Vial) 0.2 mg IV Q2M PRN PRN Reason: Opioid Reversal Olanzapine (Olanzapine 5 Mg Tab) 5 mg PO HS [facility] Pantoprazole Sodium (Pantoprazole 40 Mg Tablet) 40 mg PO AC-BID [facility] Last Admin: 10/29/20 08:30 Dose: 40 mg Documented by: Sucralfate (Sucralfate 1 Gm Tab) 1 gm PO AC-TID [facility] Last Admin: 10/29/20 11:55 Dose: 1 gm Documented by: Objective - Vital Signs Vital signs: Vital Signs Temp 98.4 F 10/29/20 07:00 Pulse 116 H 10/29/20 07:00 Resp 16 10/29/20 07:00 BP 115/62 10/29/20 07:00 Pulse Ox 90 L 10/29/20 07:00 Intake & Output 10/28/20 10/29/20 10/29/20 18:59 06:59 18:59 Output Total 950 Balance -950 Output: Urine 950 Other: # Voids 4 - Exam GENERAL: Comfortably sitting up in the chair appears to be no acute distress. Continued on 3-4 L of oxygen via nasal cannula HEENT: Pupils are round and equally reacting to light. EOMI. No scleral icterus. No conjunctival pallor. CARDIOVASCULAR: S1 and S2 present. Tachycardia. PULMONARY: Diminished breath sounds bilaterally at the lower lobes. Mild crackles at the lower lung bases. ABDOMEN: Soft, non-tender, normal bowel sounds. No guarding or rigidity. MUSCULOSKELETAL: No joint swelling or deformity. EXTREMITIES: No edema noted to lower extremities. Left ankle bandage and Kerlix noted NEUROLOGICAL: Gross neurological examination did not reveal any focal deficits. SKIN:No rash, Stage I sacral decubitus ulcer - Labs CBC & Chem 7: 10/28/20 06:44 10/29/20 06:33 Labs: Abnormal Lab Results - Last 24 Hours (Table) 10/28/20 10/28/20 10/28/20 Range/Units 06:44 12:12 17:29 D-Dimer (<0.60) mg/L FEU Creatinine 1.7 H (0.6-1.5) mg/dL Est GFR (CKD-EPI)AfAm 33.8 L (60.0-200.0) Est GFR (CKD-EPI)NonAf 29.2 L (60.0-200.0) Glucose 186 H (70-110) mg/dL POC Glucose (mg/dL) 224 H 288 H (75-99) mg/dL Calcium 8.6 L (8.7-10.3) mg/dL 10/28/20 10/28/20 10/29/20 Range/Units 18:25 22:31 08:04 D-Dimer 2.74 H (<0.60) mg/L FEU Creatinine (0.6-1.5) mg/dL Est GFR (CKD-EPI)AfAm (60.0-200.0) Est GFR (CKD-EPI)NonAf (60.0-200.0) Glucose (70-110) mg/dL POC Glucose (mg/dL) 285 H 204 H (75-99) mg/dL Calcium (8.7-10.3) mg/dL Microbiology - Last 24 Hours (Table) 10/26/20 00:14 Urine Culture - Final Urine,Voided Keeley sp,not albicans/galbr Assessment and Plan Assessment: Shortness of breath could be secondary to CHF exacerbation vs bilateral pleural effusion vs hypoalbuminemia Acute on chronic Diastolic congestive heart failure, acute exacerbation Shortness of breath possibly secondary to pulmonary embolism as noted on VQ scan Pulmonary embolism ruled out on CTA Bilateral pleural effusion Acute kidney injury most likely acute tubular necrosis and possible cardiorenal syndrome Hypoglycemia Recent C. diff colitis Recent colon polyp removal History of coronary artery disease Diabetes mellitus Dyslipidemia Hypertension Recent history of left ankle fracture Stage I sacral decubitus ulcer Stage III CKD Moderate protein calorie malnutrition GI prophylaxis DVT prophylaxis Full code PLAN: Recommend to discontinue oral Lasix for now and continue with gentle IV hydration as patient now underwent CTA after nephrology clearance and will continue with hydration for 6 hours status post contrast and will give a dose of IV Lasix and resume 20 mg Lasix oral this evening. We'll repeat labs to monitor closely his kidney functions have improved today. Multiple medical consultations including pulmonary, cardiology, nephrology following. CTA shows no evidence of PE and large bilateral pleural effusions. Patient continues on 3-4 L of oxygen via nasal cannula and continues to have shortness of breath and generalized weakness per the patient. Discussed with family at the bedside about possible rehab on discharge and they are adamant about going home and are agreeable to home care. Patient's oral intake continues to be poor and needs encouragement. Due to multiple complex medical issues prognosis is extremely guarded.
[2020-10-29 17:45] LABS: Glucose,Whole Blood 311 mg/dL (75-99)
[2020-10-29] MEDS: OLANZapine 5 MG TAB PO SCH (22:07)
[2020-10-29] MEDS: LATANOPROST 0.005% OPHTH DROPS 2.5 ML BTL BOTH EYES SCH (22:16)
[2020-10-29 23:24] LABS: Glucose,Whole Blood 227 mg/dL (75-99)
[2020-10-30 02:18] LABS: % Iron Saturation 12.58 (12.00-45.00); Ferritin 1387.4 ng/mL (10.0-291.0)
[2020-10-30] MEDS: CHOLECALCIFEROL 25 MCG (1000 IU) TABLET PO SCH (07:49)
[2020-10-30] MEDS: HEPARIN SODIUM,PORCINE/PF 5,000 UNIT/0.5 ML SYRINGE SQ SCH ×2 (07:49→16:46)
[2020-10-30] MEDS: ATORVASTATIN 10 MG TAB PO SCH (07:49)
[2020-10-30] MEDS: PANTOPRAZOLE 40 MG TABLET PO SCH ×2 (07:49→17:42)
[2020-10-30] MEDS: SUCRALFATE 1 GM TAB PO SCH ×3 (07:49→17:42)
[2020-10-30] MEDS: DONEPEZIL 5 MG TAB PO SCH (07:50)
[2020-10-30] MEDS: METOPROLOL SUCCINATE (ER) 100 MG TAB.ER.24H PO SCH (07:50)
[2020-10-30 08:04] LABS: Glucose,Whole Blood 238 mg/dL (75-99)
[2020-10-30 10:16] LABS: African American GFR (CKD) 42.8 (60.0-200.0); Anion Gap 8.2 mmol/L (4.00-12.00); BUN/Creat Ratio 12.86 Ratio (12.00-20.00); Calcium 8.8 mg/dL (8.7-10.3); Carbon Dioxide 24.8 mmol/L (21.6-31.8); Magnesium 1.6 mg/dL (1.5-2.4); Non-African American GFR(CKD) 36.9 (60.0-200.0); Potassium 4.5 mmol/L (3.5-5.5)
--- NOTE | 2020-10-30 10:58 | P.PN ---
Subjective Patient is seen in follow-up for acute kidney injury on chronic kidney disease. Renal function slightly better. Currently resting in bed. Not a reliable historian. Blood pressure stable. Nonoliguric. Vital signs are stable. General: The patient appeared well nourished and normally developed. HEENT: Head exam is unremarkable. LUNGS: Breath sounds decreased. HEART: Tachycardic. ABDOMEN: Soft, no distention. EXTREMITITES: No edema. Objective - Vital Signs Vital signs: Vital Signs Temp 98.9 F 10/30/20 07:00 Pulse 117 H 10/30/20 07:00 Resp 19 10/30/20 07:00 BP 141/67 10/30/20 07:00 Pulse Ox 9 L 10/30/20 08:54 Intake & Output 10/29/20 10/30/20 10/30/20 18:59 06:59 18:59 Intake Total 250 Output Total 1300 Balance -1050 Intake: Oral 250 Output: Urine 1300 Other: Voiding Method Indwelling Catheter Indwelling Catheter # Voids 1 # Bowel Movements 2 2 - Labs CBC & Chem 7: 10/28/20 06:44 10/30/20 06:12 Labs: Abnormal Lab Results - Last 24 Hours (Table) 10/29/20 10/29/20 10/29/20 Range/Units 06:33 06:33 13:11 Est GFR (CKD-EPI)AfAm 39.4 L (60.0-200.0) Est GFR (CKD-EPI)NonAf 34.0 L (60.0-200.0) Glucose 218 H (70-110) mg/dL POC Glucose (mg/dL) 249 H (75-99) mg/dL Iron 19 L (50-170) ug/dL TIBC 151 L (228-460) ug/dL Ferritin 1387.4 H (10.0-291.0) ng/mL 10/29/20 10/29/20 10/30/20 Range/Units 17:43 23:21 06:12 Est GFR (CKD-EPI)AfAm 42.8 L (60.0-200.0) Est GFR (CKD-EPI)NonAf 36.9 L (60.0-200.0) Glucose 194 H (70-110) mg/dL POC Glucose (mg/dL) 311 H 227 H (75-99) mg/dL Iron (50-170) ug/dL TIBC (228-460) ug/dL Ferritin (10.0-291.0) ng/mL 10/30/20 Range/Units 08:00 Est GFR (CKD-EPI)AfAm (60.0-200.0) Est GFR (CKD-EPI)NonAf (60.0-200.0) Glucose (70-110) mg/dL POC Glucose (mg/dL) 238 H (75-99) mg/dL Iron (50-170) ug/dL TIBC (228-460) ug/dL Ferritin (10.0-291.0) ng/mL Assessment and Plan Plan: Assessment: 1. Acute kidney injury secondary to ATN secondary to cardiorenal syndrome. Renal function slightly better. Creatinine 1.4 today. Patient received IV contrast on October 29 for CTA. Monitor for contrast-induced acute kidney injury. 2. Chronic kidney disease stage IIIb with baseline creatinine in the range of 1.3-1.5 secondary to diabetic kidney disease. 3. Anemia of chronic kidney disease. No active bleeding. High ferritin noted. On Aranesp. 4. Diabetes mellitus. 5. High probability of PE. No PE noted on VQ scan. 6. Acute on chronic diastolic CHF with ejection fraction of 45-50%. 7. Metabolic acidosis secondary to acute kidney injury. Better. 8. Volume overload. 9. Hypomagnesemia from diuresis and poor intake. Plan: Add Lasix 40 mg IV once daily. Avoid nephrotoxins. Replace magnesium. Continue to monitor renal function and urine output.
[2020-10-30] MEDS ORDERED: FUROSEMIDE 10 MG/ML 4 ML VIAL IV SCH (11:00)
[2020-10-30] MEDS: CHOLESTYRAMINE (WITH SUGAR) 4 GM PACKET PO SCH ×2 (11:06→21:02)
[2020-10-30] MEDS: MAGNESIUM SULFATE-D5W PMX 1 GM in DEXTROSE/WATER 1 100ML.BAG IVPB SCH ×2 (11:07→12:16)
--- NOTE | 2020-10-30 11:15 | P.PN ---
Subjective Progress Note Date: 10/30/20 Principal diagnosis: Acute hypoxic respiratory failure This is a 75-year-old female with past medical history of CAD, diabetes mellitus type 2, hypertension, hyperlipidemia, recent surgery on her left ankle, recent history of UTI for which the patient completed a course of antibiotics, and subsequently patient was hospitalized with C. diff colitis. During the same admission patient developed acute GI bleeding, and she underwent EGD and colonoscopy by Dr. Bustillo on 10/22/2020 and was found to have a large duodenal ulcer, gastritis, and pancolitis.. Patient also developed an acute kidney injury related to ATN secondary to multiple loose bowel movements, GI bleeding, and poor oral intake. Patient was discharged home on Cipro and Flagyl on 10/23/2020 with visiting nurses. On 10/25/2020 patient was brought back to the emergency department by EMS for complaints of shortness of breath, decreased level of responsiveness, and increased swelling in her bilateral lower extremities. Of note patient did have lower extremity Dopplers during her previous admission on 10/23/2020 which showed no evidence of DVT. Chest x-ray on admission shows pulmonary vascular congestion, and moderate-sized bilateral pleural effusions. Patient's family denied patient having any fever, they do report mild cough with no phlegm production, no hemoptysis, no complaints of chest pain. They also report patient being very weak and tired. On admission her white blood cell count is 11.8, hemoglobin is 10.5, platelet count is 842, INR is 1.0, sodium is 134, potassium is 4.9, chloride is 107, CO2 was 18, BUN was 19, creatinine was 1.49, local was 34, troponin was negative at less than 0.012, proBNP was 4070. Urinalysis showed possibility of urinary tract infection, urine culture showed Keeley species. Exhalation is already on a combination of ciprofloxacin and Flagyl. Cardiology saw the patient in consultation for possibility of acute CHF, echocardiogram was completed showing moderate concentric LVH, mildly impaired left ventricle systolic function with an EF of 45-50%, small generalized pericardial effusion. Patient was diuresed, and her renal function slightly worsened, and on today's labs creatinine is up to 1.7. Patient still requiring oxygen, currently at 3 L, with a pulse ox of 97%, remains persistently hypoxemic, follow-up chest x-ray today was completed showing bilateral pleural effusions with cardiomegaly and bibasilar infiltrates, and diffuse interstitial pattern. VQ scan was completed showing a wedge-shaped defect in the left lower lobe laterally, and another smaller wedge-shaped defect involving the right midlung zone, and the findings demonstrated high probability for pulmonary embolism. We were consulted in regards to abnormal VQ scan, and persistent hypoxia The patient is seen today 10/29/2020 in follow-up on the regular medical floor. She is currently resting comfortably in bed. Awake and alert in no acute distress. She is maintaining O2 saturations in the mid 90s on 2 L/m per nasal cannula. Afebrile. Tachycardic. CT angiogram ruled out pulmonary embolism. There is moderate pericardial effusion. Moderate bilateral pleural effusions with surrounding atelectasis. Cardiomegaly. Coronary artery calcifications. Urine culture positive for Keeley species. Blood glucose 204. Other labs are pending. She is currently on Cipro and Flagyl. Been initiated on bronchodilators. Heparin for DVT prophylaxis. She is seen today 10/30/2020 in follow-up on the regular medical floor. She remains awake and alert in no acute distress. Resting fairly comfortably in bed. Maintaining O2 saturations in the 90s on 4 L/m per nasal cannula. She's afebrile. Her culture positive for Keeley only. Sodium 138. Potassium 4.5. Creatinine 1.4. Remains on IV diuretics, bronchodilators. Worsening shortness of breath, cough or congestion. Objective - Vital Signs Vital signs: Vital Signs Temp 98.9 F 10/30/20 07:00 Pulse 117 H 10/30/20 07:00 Resp 19 10/30/20 07:00 BP 141/67 10/30/20 07:00 Pulse Ox 9 L 10/30/20 08:54 Intake & Output 10/29/20 10/30/20 10/30/20 18:59 06:59 18:59 Intake Total 250 Output Total 1300 Balance -1050 Intake: Oral 250 Output: Urine 1300 Other: Voiding Method Indwelling Catheter Indwelling Catheter # Voids 1 # Bowel Movements 2 2 - Exam GENERAL EXAM: Alert, pleasant 75-year-old female patient, ON 2 L nasal cannula, fairly, comfortable in no apparent distress. HEAD: Normocephalic. EYES: Normal reaction of pupils, equal size. NOSE: Clear with pink turbinates. THROAT: No erythema or exudates. NECK: No masses, no JVD. CHEST: No chest wall deformity. LUNGS: Equal air entry with crackles in the bilateral bases, diminished. CVS: S1 and S2 normal with no audible murmur, regular rhythm. ABDOMEN: No hepatosplenomegaly, normal bowel sounds, no guarding or rigidity. SPINE: No scoliosis or deformity SKIN: No rashes CENTRAL NERVOUS SYSTEM: No focal deficits, tone is normal in all 4 extremities. EXTREMITIES: There is no peripheral edema. No clubbing, no cyanosis. Peripheral pulses are intact. - Labs CBC & Chem 7: 10/28/20 06:44 10/30/20 06:12 Labs: Abnormal Lab Results - Last 24 Hours (Table) 10/29/20 10/29/20 10/29/20 Range/Units 06:33 06:33 13:11 Est GFR (CKD-EPI)AfAm 39.4 L (60.0-200.0) Est GFR (CKD-EPI)NonAf 34.0 L (60.0-200.0) Glucose 218 H (70-110) mg/dL POC Glucose (mg/dL) 249 H (75-99) mg/dL Iron 19 L (50-170) ug/dL TIBC 151 L (228-460) ug/dL Ferritin 1387.4 H (10.0-291.0) ng/mL 10/29/20 10/29/20 10/30/20 Range/Units 17:43 23:21 06:12 Est GFR (CKD-EPI)AfAm 42.8 L (60.0-200.0) Est GFR (CKD-EPI)NonAf 36.9 L (60.0-200.0) Glucose 194 H (70-110) mg/dL POC Glucose (mg/dL) 311 H 227 H (75-99) mg/dL Iron (50-170) ug/dL TIBC (228-460) ug/dL Ferritin (10.0-291.0) ng/mL 10/30/20 Range/Units 08:00 Est GFR (CKD-EPI)AfAm (60.0-200.0) Est GFR (CKD-EPI)NonAf (60.0-200.0) Glucose (70-110) mg/dL POC Glucose (mg/dL) 238 H (75-99) mg/dL Iron (50-170) ug/dL TIBC (228-460) ug/dL Ferritin (10.0-291.0) ng/mL Assessment and Plan Assessment: 1 Acute hypoxic respiratory failure, multifactorial, related to acute CHF mildly impaired EF of 45-50%. 2 High probability VQ scan, CT angiogram ruled out pulmonary embolism 3 Acute kidney injury improving current creatinine 1.4 4 Recent hospitalization for C. diff colitis, acute GI blood loss anemia, and patient was found to have a large duodenal ulcer, gastritis, and pancolitis 5 Acute GI blood loss anemia 6 History of hypertension 7 Hyperlipidemia 8 Diabetes mellitus type 2 9 Coronary artery disease with previous stent placement 10 Lifetime nonsmoker, no history of chronic lung disease 11 Recent history of left ankle surgery in September 2020 at [facility] 12 Left heel pressure ulcer wound 13 Episodes of hypoglycemia, likely related to oral hypoglycemic medications in the setting of acute kidney injury. Currently Actos and Amaryl are both on hold Plan: The patient was seen and evaluated by Dr. Chambers Add Lasix 40 mg IVP today Follow-up chest x-ray in a.m. May consider thoracentesis if continued pleural effusions Titrate the FiO2 as tolerated We will continue to follow I, the cosigning physician, performed a history & physical examination of the patient. Lungs sounds crackles in the bilateral posterior bases, diminished. Maintaining good O2 saturations in the 90s on 2 L/m per nasal cannula. I discussed the assessment and plan of care with my nurse practitioner, Saskia Padilla. I attest to the above note as dictated by her.
[2020-10-30 12:13] LABS: Glucose,Whole Blood 281 mg/dL (75-99)
--- NOTE | 2020-10-30 13:37 | P.PN ---
Subjective Progress Note Date: 10/30/20 Ms. Sofia is a 75-year-old with a past medical history of coronary artery disease, diabetes mellitus, hypertension, hyperlipidemia, left ankle surgery done recently, recent C. diff colitis brought in by her daughter and family secondary to difficulty in breathing. Most of the history is given by her daughter and son-in-law who were present at the bedside as the patient does not speak [place]. They mentioned that during her last hospital stay patient gained significant amount of weight, possibly due to fluid retention and was having mild difficulty in breathing. But last night she was having more shortness of breath that prompted them to bring her to the hospital. She was recently admitted in the hospital from 10/09/2020 2 10/23/2020. Patient has C. diff colitis and was discharged on by mouth antibiotics. During that previous admission patient had acute kidney injury as well. They denied having any fevers chills or rigors. No diarrhea, abdominal pain or nausea. No dysuria or hematuria. They mentioned that she has stage I sacral decubitus ulcer. She also recently had left ankle surgery done, was told not to bear weight on the left lower extremity. No complaints of chest pain or palpitations. No loss of consciousness, headache or visual disturbances. No weakness of the extremities, has generalized weakness. In the ED at the time of admission heart rate 98, respiratory 20, blood pressure 1/31 a 65, saturating at 91% on room air. She had chest x-ray done showing mild chronic congestive heart failure with increased pleural effusion compared to old exam. Reviewing her labs white count of 8.9, hemoglobin 10.4, platelets 504. Sodium 135, potassium 4.7, chloride 108, bicarb 20, BUN 19, creatinine 1.53. Urine analysis positive for moderate leukocyte esterase, 14 WBCs. FOBT negative. EKG showing low voltage with sinus tachycardia. Patient also had significant hypoglycemia with a glucose as low as 34. 10/28/2020 Patient is seen in follow-up this morning with cardiology following. Patient continues to be lethargic and not eating very much. Patient also continues to have some shortness of breath and diminished breath sounds noted bilaterally and patient continues on 3 L of oxygen via nasal cannula with continued shortness of breath and does not normally wear oxygen in the outpatient setting. Given patient's worsening kidney functions will order VQ scan and consult pulmonary. Patient continues on heparin subcu for now and will discuss with pulmonary about anticoagulation. Will discontinue Lasix for now and continue a gentle IV hydration. 10/29/2020 Patient is seen and evaluated in follow-up this morning with family at the bedside and multiple medical consultations following. Patient has been seen and evaluated by nephrology for renal clearance for CTA as creatinine was elevated and maintained on gentle IV hydration and Lasix was discontinued. Patient cleared for CTA to rule out possible pulmonary embolism as noted on VQ scan. CTA was negative for pulmonary embolism and noted to have continued large bilateral pleural effusions. Pulmonary is following and will be given a dose of Lasix IV push after CTA and required IV hydration. Continues to be short of breath when currently maintained on 3-4 L of oxygen via nasal cannula. Patient continues to not eat very much and discussed with family at the bedside who states this is chronic and she only eats at home. She does eat the food that they bring in. Patient continues to be extremely weak and have discussed possible rehab with family and they are adamant about her returning home and does have home care in the outpatient setting. Will repeat a.m. labs and continue to monitor closely. 10/30/2020 Patient is seen in follow-up this morning continues to be short of breath currently on 4 L of oxygen and maintaining oxygen saturations of 90-93%. Pulmonary following closely along with cardiology, nephrology, and infectious disease. Patient will continue on IV Lasix she continues to have bilateral pleural effusions with possibility of thoracentesis if no improvement with diuresis. Repeat chest x-ray in the morning to monitor closely. Magnesium today is 1.6 and will replace per protocol and repeat a.m. labs. Odium is 138 with a potassium of 4.5 and current creatinine is 1.4. Blood sugars elevated and will add sliding scale and monitor closely with Accu-Cheks before meals and at bedtime. Review of systems: Constitutional: reports of fatigue, no reports of fever, or chills Cardiovascular: No reports of chest pain or palpitations Respiratory: reports of shortness of breath and continued cough GI: No reports of nausea, vomiting, or diarrhea : No reports of dysuria or retention Neurovascular: Reports generalized weakness All medications have been reviewed Active Medications Acetaminophen (Acetaminophen Tab 325 Mg Tab) 650 mg PO Q6H PRN PRN Reason: Mild Pain or Fever > 100.5 Last Admin: 10/28/20 19:42 Dose: 650 mg Documented by: Albuterol/Ipratropium (Ipratropium-Albuterol 3 Ml Neb) 3 ml INHALATION RT-QID PRN PRN Reason: Shortness Of Breath Or Wheezing Last Admin: 10/26/20 15:50 Dose: 3 ml Documented by: Atorvastatin Calcium (Atorvastatin 10 Mg Tab) 10 mg PO DAILY [facility] Last Admin: 10/30/20 07:49 Dose: 10 mg Documented by: Cholecalciferol (Cholecalciferol 25 Mcg (1000 Iu) Tablet) 25 mcg PO DAILY [facility] Last Admin: 10/30/20 07:49 Dose: 25 mcg Documented by: Cholestyramine Resin (Cholestyramine (With Sugar) 4 Gm Packet) 4 gm PO BID@1000,2100 [facility] Last Admin: 10/30/20 11:06 Dose: 4 gm Documented by: Darbepoetin Aab (Darbepoetin Aba 40 Mcg/0.4 Ml Syringe) 40 mcg SQ Q7D [facility] Last Admin: 10/29/20 11:56 Dose: 40 mcg Documented by: Dextrose/Water (Dextrose 50% Syringe 50 Ml) 50 ml IVP ONCE PRN PRN Reason: Hypoglycemia Donepezil HCl (Donepezil 5 Mg Tab) 5 mg PO DAILY [facility] Last Admin: 10/30/20 07:50 Dose: 5 mg Documented by: Furosemide (Furosemide 10 Mg/Ml 4 Ml Vial) 40 mg IV Q12HR [facility] Heparin Sodium (Porcine) (Heparin Sodium,Porcine/Pf 5,000 Unit/0.5 Ml Syringe) 5,000 unit SQ Q8HR [facility] Last Admin: 10/30/20 07:49 Dose: 5,000 unit Documented by: Latanoprost (Latanoprost 0.005% Ophth Drops 2.5 Ml Btl) 1 drops [facility] Last Admin: 10/29/20 22:16 Dose: 1 drops Documented by: Metoprolol Succinate (Metoprolol Succinate (Er) 100 Mg Tab.Er.24h) 200 mg PO DAILY [facility] Last Admin: 10/30/20 07:50 Dose: 200 mg Documented by: Naloxone HCl (Naloxone 0.4 Mg/Ml 1 Ml Vial) 0.2 mg IV Q2M PRN PRN Reason: Opioid Reversal Olanzapine (Olanzapine 5 Mg Tab) 5 mg PO HS [facility] Last Admin: 10/29/20 22:07 Dose: 5 mg Documented by: Pantoprazole Sodium (Pantoprazole 40 Mg Tablet) 40 mg PO AC-BID [facility] Last Admin: 10/30/20 07:49 Dose: 40 mg Documented by: Sucralfate (Sucralfate 1 Gm Tab) 1 gm PO AC-TID [facility] Last Admin: 10/30/20 12:17 Dose: 1 gm Documented by: Objective - Vital Signs Vital signs: Vital Signs Temp 98.9 F 10/30/20 07:00 Pulse 117 H 10/30/20 07:00 Resp 19 10/30/20 07:00 BP 141/67 10/30/20 07:00 Pulse Ox 9 L 10/30/20 08:54 Intake & Output 10/29/20 10/30/20 10/30/20 18:59 06:59 18:59 Intake Total 250 Output Total 1300 625 Balance -1050 -625 Intake: Oral 250 Output: Urine 1300 625 Other: Voiding Method Indwelling Catheter Indwelling Catheter # Voids 1 # Bowel Movements 2 2 - Exam GENERAL: Comfortably sitting up in bed. Alert and oriented 2 with language barrier noted. Family at the bedside. Continued on 4 L of oxygen via nasal cannula HEENT: Pupils are round and equally reacting to light. EOMI. No scleral icterus. No conjunctival pallor. CARDIOVASCULAR: S1 and S2 present. Tachycardia. PULMONARY: Diminished breath sounds bilaterally at the lower lobes. Mild crackles at the lower lung bases. ABDOMEN: Soft, non-tender, normal bowel sounds. No guarding or rigidity. MUSCULOSKELETAL: No joint swelling or deformity. EXTREMITIES: No edema noted to lower extremities. Left ankle bandage and Kerlix noted NEUROLOGICAL: Gross neurological examination did not reveal any focal deficits. SKIN:No rash, Stage I sacral decubitus ulcer - Labs CBC & Chem 7: 10/28/20 06:44 10/30/20 06:12 Labs: Abnormal Lab Results - Last 24 Hours (Table) 10/29/20 10/29/20 10/29/20 Range/Units 06:33 06:33 13:11 Est GFR (CKD-EPI)AfAm 39.4 L (60.0-200.0) Est GFR (CKD-EPI)NonAf 34.0 L (60.0-200.0) Glucose 218 H (70-110) mg/dL POC Glucose (mg/dL) 249 H (75-99) mg/dL Iron 19 L (50-170) ug/dL TIBC 151 L (228-460) ug/dL Ferritin 1387.4 H (10.0-291.0) ng/mL 10/29/20 10/29/20 10/30/20 Range/Units 17:43 23:21 06:12 Est GFR (CKD-EPI)AfAm 42.8 L (60.0-200.0) Est GFR (CKD-EPI)NonAf 36.9 L (60.0-200.0) Glucose 194 H (70-110) mg/dL POC Glucose (mg/dL) 311 H 227 H (75-99) mg/dL Iron (50-170) ug/dL TIBC (228-460) ug/dL Ferritin (10.0-291.0) ng/mL 10/30/20 Range/Units 08:00 Est GFR (CKD-EPI)AfAm (60.0-200.0) Est GFR (CKD-EPI)NonAf (60.0-200.0) Glucose (70-110) mg/dL POC Glucose (mg/dL) 238 H (75-99) mg/dL Iron (50-170) ug/dL TIBC (228-460) ug/dL Ferritin (10.0-291.0) ng/mL Assessment and Plan Assessment: Shortness of breath could be secondary to CHF exacerbation vs bilateral pleural effusion vs hypoalbuminemia Acute on chronic Diastolic congestive heart failure, acute exacerbation Shortness of breath possibly secondary to pulmonary embolism as noted on VQ scan or possibly secondary to bilateral pleural effusions Pulmonary embolism ruled out on CTA Bilateral pleural effusion Acute kidney injury most likely acute tubular necrosis and possible cardiorenal syndrome Hypoglycemia Recent C. diff colitis Recent colon polyp removal History of coronary artery disease Diabetes mellitus2, uncontrolled with hyperglycemia Dyslipidemia Hypertension Recent history of left ankle fracture Stage I sacral decubitus ulcer Stage III CKD Moderate protein calorie malnutrition GI prophylaxis DVT prophylaxis Full code PLAN: Multiple medical consultations following including nephrology, cardiology, pulmonary, and infectious disease. Patient continues to be short of breath r equiring 4 L of oxygen and continued bilateral pleural effusions and kidney functions are stable and starting IV Lasix for diuresis and will continue to monitor closely. Patient with good urinary output. Wean FiO2 as tolerated. Pulmonary following closely and will discuss further down the line about possible thoracentesis with family at the bedside. Sodium today is 138 with a potassium of 4.5 and current creatinine is stable at 1.4 with a BUN of 18. Blood sugars have been elevated and will initiate sliding scale and continue with Accu-Cheks before meals and at bedtime. Magnesium slightly low at 1.6 and will replace per protocol and repeat a.m. labs. Continued encouragement to use incentive spirometer at least 10 times every hour while awake. Repeat chest x- ray in the morning. Due to multiple complex medical issues prognosis is extremely guarded.
[2020-10-30 17:15] LABS: Glucose,Whole Blood 246 mg/dL (75-99)
[2020-10-30] MEDS: INSULIN ASPART (NovoLOG) 100 UNIT/ML VIAL SQ SCH ×2 (17:41→21:02)
[2020-10-30 18:05] LABS: Appearance,Urine Cloudy (Clear); Bacteria,Urine Rare /hpf; Bilirubin,Urine Negative (Negative); Blood,Urine Trace (Negative); Budding Yeast,Urine Many /hpf; Color,Urine Yellow; Glucose,Urine (UA) Negative (Negative); Hyaline Casts,Urine 5 /lpf (0-2); Ketones,Urine Negative (Negative); Leukocyte Esterase,Urine Large (Negative); Mucus,Urine Rare /hpf; Nitrite,Urine Negative (Negative); Protein,Urine Trace (Negative); RBC,Urine 28 /hpf (0-5); Specific Gravity,Urine 1.013 (1.001-1.035); Squamous Epithelial Cell,Urine 2 /hpf (0-4); Urobilinogen,Urine <2.0 mg/dL (<2.0); WBC,Urine 45 /hpf (0-5)
--- NOTE | 2020-10-30 19:26 | PN ---
PROGRESS NOTE DATE OF SERVICE: 10/30/2020 REASON FOR FOLLOWUP: 1. Colitis. 2. Positive urine culture. INTERVAL HISTORY: The patient is currently afebrile. The patient is breathing comfortably. Denies having any chest pain, shortness of breath or cough. No abdominal pain or diarrhea. Currently on room air. PHYSICAL EXAMINATION: Blood pressure 142/76, pulse of 140, temperature 98.1. She is 98% on room air. General description is an elderly female lying in bed in no distress. Respiratory system: Unlabored breathing, clear to auscultation anteriorly. Heart S1, S2. Regular rate and rhythm. Abdomen soft, no tenderness. Extremities: No edema of the feet. LAB DATA: BUN of 18, creatinine 1.4. DIAGNOSTIC IMPRESSION: 1. Patient with admission to the hospital with increasing shortness of breath and concern for fluid overload. CT angiogram of the chest shows moderate pericardial effusion, but no PE and pleural effusion. No evidence of any pneumonia. Patient, for her colitis, has completed her Cipro and Flagyl therapy. Will monitor patient closely off antibiotic therapy. 2. Patient with a positive culture with Keeley glabrata possible colonization to change her Mack catheter and obtain urine culture from new Mack. Continue supportive care. MMODL / IJN: [id number] /
[2020-10-30 20:44] LABS: Glucose,Whole Blood 217 mg/dL (75-99)
[2020-10-30] MEDS: OLANZapine 5 MG TAB PO SCH (21:02)
[2020-10-30] MEDS: FUROSEMIDE 10 MG/ML 4 ML VIAL IV SCH (21:02)
[2020-10-30] MEDS: LATANOPROST 0.005% OPHTH DROPS 2.5 ML BTL BOTH EYES SCH (21:05)
--- NOTE | 2020-10-31 07:20 | XR ---
EXAMINATION TYPE: XR chest 1V portable DATE OF EXAM: 10/31/2020 COMPARISON: Chest x-ray 10/28/2020 HISTORY: Pleural effusion TECHNIQUE: Single frontal view of the chest is obtained. FINDINGS: Bibasilar attenuation is again noted within the hemithoraces. No evident pneumothorax. Car diac mediastinal silhouette shows probable cardiac enlargement, the aorta is dense. There are overlyi ng artifacts. Perihilar increased attenuation is present. IMPRESSION: There are likely basilar effusions and associated atelectasis versus edema, pneumonia no t excluded, correlate for congestive heart failure. There is cardiomegaly.
[2020-10-31 07:55] LABS: Glucose,Whole Blood 192 mg/dL (75-99)
--- NOTE | 2020-10-31 10:04 | P.PN ---
Subjective Patient is seen in follow-up for acute kidney injury on chronic kidney disease. Renal function improved from admission. Creatinine 1.4 yesterday.ng in bed. Not a reliable historian. Blood pressure stable. Nonoliguric. On 4 L nasal cannula. Vital signs are stable. General: The patient appeared well nourished and normally developed. HEENT: Head exam is unremarkable. LUNGS: Breath sounds decreased. HEART: Tachycardic. ABDOMEN: Soft, no distention. EXTREMITITES: No edema. Objective - Vital Signs Vital signs: Vital Signs Temp 99.3 F 10/31/20 07:00 Pulse 109 H 10/31/20 07:00 Resp 18 10/31/20 07:00 BP 148/73 10/31/20 07:00 Pulse Ox 95 10/31/20 07:00 Intake & Output 10/30/20 10/31/20 10/31/20 18:59 06:59 18:59 Output Total 1425 700 Balance -1425 -700 Weight 69.127 kg Output: Urine 1425 700 Uretheral (Mack) 800 Other: Voiding Method Indwelling Catheter # Bowel Movements 1 - Labs CBC & Chem 7: 10/28/20 06:44 10/30/20 06:12 Labs: Abnormal Lab Results - Last 24 Hours (Table) 10/30/20 10/30/20 10/30/20 Range/Units 06:12 12:11 17:13 Est GFR (CKD-EPI)AfAm 42.8 L (60.0-200.0) Est GFR (CKD-EPI)NonAf 36.9 L (60.0-200.0) Glucose 194 H (70-110) mg/dL POC Glucose (mg/dL) 281 H 246 H (75-99) mg/dL Urine Appearance (Clear) Urine Protein (Negative) Urine Blood (Negative) Ur Leukocyte Esterase (Negative) Urine RBC (0-5) /hpf Urine WBC (0-5) /hpf Urine WBC Clumps (None) /hpf Urine Bacteria (None) /hpf Hyaline Casts (0-2) /lpf Urine Mucus (None) /hpf Urine Yeast (Budding) (None) /hpf 10/30/20 10/30/20 10/31/20 Range/Units 17:45 20:42 07:48 Est GFR (CKD-EPI)AfAm (60.0-200.0) Est GFR (CKD-EPI)NonAf (60.0-200.0) Glucose (70-110) mg/dL POC Glucose (mg/dL) 217 H 192 H (75-99) mg/dL Urine Appearance Cloudy H (Clear) Urine Protein Trace H (Negative) Urine Blood Trace H (Negative) Ur Leukocyte Esterase Large H (Negative) Urine RBC 28 H (0-5) /hpf Urine WBC 45 H (0-5) /hpf Urine WBC Clumps Few H (None) /hpf Urine Bacteria Rare H (None) /hpf Hyaline Casts 5 H (0-2) /lpf Urine Mucus Rare H (None) /hpf Urine Yeast (Budding) Many H (None) /hpf Microbiology - Last 24 Hours (Table) 10/30/20 17:45 Urine Culture - Preliminary Urine,Clean Catch Assessment and Plan Plan: Assessment: 1. Acute kidney injury secondary to ATN secondary to cardiorenal syndrome. Renal function improved from admission. Creatinine 1.4 yesterday. Patient received IV contrast on October 29 for CTA. Monitor for contrast-induced acute kidney injury. 2. Chronic kidney disease stage IIIb with baseline creatinine in the range of 1.3-1.5 secondary to diabetic kidney disease. 3. Anemia of chronic kidney disease. No active bleeding. High ferritin noted. On Aranesp. 4. Diabetes mellitus. 5. High probability of PE. No PE noted on VQ scan. 6. Acute on chronic diastolic CHF with ejection fraction of 45-50%. 7. Metabolic acidosis secondary to acute kidney injury. Better. 8. Volume overload. 9. Hypomagnesemia from diuresis and poor intake. Replaced. Plan: Maintain IV Lasix. Avoid nephrotoxins. Continue to monitor renal function and urine output. Morning labs pending.
[2020-10-31 10:12] LABS: African American GFR (CKD) 42.8 (60.0-200.0); Anion Gap 5.8 mmol/L (4.00-12.00); BUN/Creat Ratio 13.57 Ratio (12.00-20.00); Calcium 8.8 mg/dL (8.7-10.3); Carbon Dioxide 27.2 mmol/L (21.6-31.8); Magnesium 1.9 mg/dL (1.5-2.4); Non-African American GFR(CKD) 36.9 (60.0-200.0); Potassium 4.9 mmol/L (3.5-5.5)
[2020-10-31] MEDS: SUCRALFATE 1 GM TAB PO SCH ×3 (10:15→21:22)
[2020-10-31] MEDS: ATORVASTATIN 10 MG TAB PO SCH (10:15)
[2020-10-31] MEDS: CHOLECALCIFEROL 25 MCG (1000 IU) TABLET PO SCH (10:15)
[2020-10-31] MEDS: PANTOPRAZOLE 40 MG TABLET PO SCH ×2 (10:16→18:34)
[2020-10-31] MEDS: CHOLESTYRAMINE (WITH SUGAR) 4 GM PACKET PO SCH ×2 (10:18→21:22)
[2020-10-31] MEDS: METOPROLOL SUCCINATE (ER) 100 MG TAB.ER.24H PO SCH (10:19)
[2020-10-31] MEDS: DONEPEZIL 5 MG TAB PO SCH (10:19)
[2020-10-31] MEDS: HEPARIN SODIUM,PORCINE/PF 5,000 UNIT/0.5 ML SYRINGE SQ SCH ×4 (10:19→21:22)
[2020-10-31] MEDS: FUROSEMIDE 10 MG/ML 4 ML VIAL IV SCH ×2 (10:19→21:21)
[2020-10-31] MEDS: INSULIN ASPART (NovoLOG) 100 UNIT/ML VIAL SQ SCH ×4 (10:29→21:22)
[2020-10-31] MEDS: ACETAMINOPHEN TAB 325 MG TAB PO PRN (10:31)
[2020-10-31] MEDS: VORICONAZOLE 200 MG TAB PO SCH ×2 (12:30→21:20)
[2020-10-31 12:35] LABS: Glucose,Whole Blood 274 mg/dL (75-99)
--- NOTE | 2020-10-31 16:18 | P.PN ---
Subjective Progress Note Date: 10/31/20 Principal diagnosis: Acute hypoxic respiratory failure This is a 75-year-old female with past medical history of CAD, diabetes mellitus type 2, hypertension, hyperlipidemia, recent surgery on her left ankle, recent history of UTI for which the patient completed a course of antibiotics, and subsequently patient was hospitalized with C. diff colitis. During the same admission patient developed acute GI bleeding, and she underwent EGD and colonoscopy by Dr. Bustillo on 10/22/2020 and was found to have a large duodenal ulcer, gastritis, and pancolitis.. Patient also developed an acute kidney injury related to ATN secondary to multiple loose bowel movements, GI bleeding, and poor oral intake. Patient was discharged home on Cipro and Flagyl on 10/23/2020 with visiting nurses. On 10/25/2020 patient was brought back to the emergency department by EMS for complaints of shortness of breath, decreased level of responsiveness, and increased swelling in her bilateral lower extremities. Of note patient did have lower extremity Dopplers during her previous admission on 10/23/2020 which showed no evidence of DVT. Chest x-ray on admission shows pulmonary vascular congestion, and moderate-sized bilateral pleural effusions. Patient's family denied patient having any fever, they do report mild cough with no phlegm production, no hemoptysis, no complaints of chest pain. They also report patient being very weak and tired. On admission her white blood cell count is 11.8, hemoglobin is 10.5, platelet count is 842, INR is 1.0, sodium is 134, potassium is 4.9, chloride is 107, CO2 was 18, BUN was 19, creatinine was 1.49, local was 34, troponin was negative at less than 0.012, proBNP was 4070. Urinalysis showed possibility of urinary tract infection, urine culture showed Keeley species. Exhalation is already on a combination of ciprofloxacin and Flagyl. Cardiology saw the patient in consultation for possibility of acute CHF, echocardiogram was completed showing moderate concentric LVH, mildly impaired left ventricle systolic function with an EF of 45-50%, small generalized pericardial effusion. Patient was diuresed, and her renal function slightly worsened, and on today's labs creatinine is up to 1.7. Patient still requiring oxygen, currently at 3 L, with a pulse ox of 97%, remains persistently hypoxemic, follow-up chest x-ray today was completed showing bilateral pleural effusions with cardiomegaly and bibasilar infiltrates, and diffuse interstitial pattern. VQ scan was completed showing a wedge-shaped defect in the left lower lobe laterally, and another smaller wedge-shaped defect involving the right midlung zone, and the findings demonstrated high probability for pulmonary embolism. We were consulted in regards to abnormal VQ scan, and persistent hypoxia The patient is seen today 10/29/2020 in follow-up on the regular medical floor. She is currently resting comfortably in bed. Awake and alert in no acute distress. She is maintaining O2 saturations in the mid 90s on 2 L/m per nasal cannula. Afebrile. Tachycardic. CT angiogram ruled out pulmonary embolism. There is moderate pericardial effusion. Moderate bilateral pleural effusions with surrounding atelectasis. Cardiomegaly. Coronary artery calcifications. Urine culture positive for Keeley species. Blood glucose 204. Other labs are pending. She is currently on Cipro and Flagyl. Been initiated on bronchodilators. Heparin for DVT prophylaxis. She is seen today 10/30/2020 in follow-up on the regular medical floor. She remains awake and alert in no acute distress. Resting fairly comfortably in bed. Maintaining O2 saturations in the 90s on 4 L/m per nasal cannula. She's afebrile. Her culture positive for Keeley only. Sodium 138. Potassium 4.5. Creatinine 1.4. Remains on IV diuretics, bronchodilators. Worsening shortness of breath, cough or congestion. The patient is seen today 10/31/2020 in follow-up on the regular medical floor. She is currently resting comfortably in bed. Awake and alert in no acute distress. Breathing a bit easier today compared to yesterday. Maintaining good O2 saturations in the 90s on room air. X-ray continues to reveal basilar effusions left greater than right. Sodium 136. Potassium 4.9. BUN 19. Creatinine 1.4. She remains on Lasix 40 mg IV every 12 hours. Plan is -1.5 mL balance. 69.1 kg. Objective - Vital Signs Vital signs: Vital Signs Temp 98.4 F 10/31/20 15:00 Pulse 104 H 10/31/20 15:00 Resp 19 10/31/20 15:00 BP 129/74 10/31/20 15:00 Pulse Ox 93 L 10/31/20 15:00 Intake & Output 10/30/20 10/31/20 10/31/20 18:59 06:59 18:59 Intake Total 180 Output Total 1425 700 Balance -1425 -700 180 Weight 69.127 kg Intake: Oral 180 Output: Urine 1425 700 Uretheral (Mack) 800 Other: Voiding Method Indwelling Catheter Indwelling Catheter # Bowel Movements 1 1 - Exam GENERAL EXAM: Alert, pleasant 75-year-old female patient, on room air, fairly comfortable in no apparent distress. HEAD: Normocephalic. EYES: Normal reaction of pupils, equal size. NOSE: Clear with pink turbinates. THROAT: No erythema or exudates. NECK: No masses, no JVD. CHEST: No chest wall deformity. LUNGS: Equal air entry with crackles in the bilateral bases, diminished. CVS: S1 and S2 normal with no audible murmur, regular rhythm. ABDOMEN: No hepatosplenomegaly, normal bowel sounds, no guarding or rigidity. SPINE: No scoliosis or deformity SKIN: No rashes CENTRAL NERVOUS SYSTEM: No focal deficits, tone is normal in all 4 extremities. EXTREMITIES: There is no peripheral edema. No clubbing, no cyanosis. Peripheral pulses are intact. - Labs CBC & Chem 7: 10/28/20 06:44 10/31/20 06:02 Labs: Abnormal Lab Results - Last 24 Hours (Table) 10/30/20 10/30/20 10/30/20 Range/Units 17:13 17:45 20:42 Est GFR (CKD-EPI)AfAm (60.0-200.0) Est GFR (CKD-EPI)NonAf (60.0-200.0) Glucose (70-110) mg/dL POC Glucose (mg/dL) 246 H 217 H (75-99) mg/dL Urine Appearance Cloudy H (Clear) Urine Protein Trace H (Negative) Urine Blood Trace H (Negative) Ur Leukocyte Esterase Large H (Negative) Urine RBC 28 H (0-5) /hpf Urine WBC 45 H (0-5) /hpf Urine WBC Clumps Few H (None) /hpf Urine Bacteria Rare H (None) /hpf Hyaline Casts 5 H (0-2) /lpf Urine Mucus Rare H (None) /hpf Urine Yeast (Budding) Many H (None) /hpf 08/10/31/20 10/31/20 Range/Units 06:02 07:48 12:33 Est GFR (CKD-EPI)AfAm 42.8 L (60.0-200.0) Est GFR (CKD-EPI)NonAf 36.9 L (60.0-200.0) Glucose 157 H (70-110) mg/dL POC Glucose (mg/dL) 192 H 274 H (75-99) mg/dL Urine Appearance (Clear) Urine Protein (Negative) Urine Blood (Negative) Ur Leukocyte Esterase (Negative) Urine RBC (0-5) /hpf Urine WBC (0-5) /hpf Urine WBC Clumps (None) /hpf Urine Bacteria (None) /hpf Hyaline Casts (0-2) /lpf Urine Mucus (None) /hpf Urine Yeast (Budding) (None) /hpf Microbiology - Last 24 Hours (Table) 10/30/20 17:45 Urine Culture - Preliminary Urine,Clean Catch Assessment and Plan Assessment: 1 Acute hypoxic respiratory failure, multifactorial, related to acute CHF mildly impaired EF of 45-50%. 2 High probability VQ scan, CT angiogram ruled out pulmonary embolism 3 Acute kidney injury improving current creatinine 1.4 4 Recent hospitalization for C. diff colitis, acute GI blood loss anemia, and patient was found to have a large duodenal ulcer, gastritis, and pancolitis 5 Acute GI blood loss anemia 6 History of hypertension 7 Hyperlipidemia 8 Diabetes mellitus type 2 9 Coronary artery disease with previous stent placement 10 Lifetime nonsmoker, no history of chronic lung disease 11 Recent history of left ankle surgery in September 2020 at [facility] 12 Left heel pressure ulcer wound 13 Episodes of hypoglycemia, likely related to oral hypoglycemic medications in the setting of acute kidney injury. Currently Actos and Amaryl are both on hold Plan: The patient was seen and evaluated by Dr. Chambers Chest x-ray and labs reviewed Continue IV diuretics We will continue to follow I, the cosigning physician, performed a history & physical examination of the patient. Lungs sounds crackles in the bilateral posterior bases, diminished. Maintaining good O2 saturations in the 90s on room air. I discussed the assessment and plan of care with my nurse practitioner, Saskia Padilla. I attest to the above note as dictated by her.
--- NOTE | 2020-10-31 16:49 | PN ---
PROGRESS NOTE DATE OF SERVICE: 10/31/2020 REASON FOR FOLLOWUP: Catheter associated UTI. INTERVAL HISTORY: The patient has been running a low-grade fever of 99.3 degrees Fahrenheit. The patient is slightly sleepy, lethargic and is unable to provide any history. No vomiting, diarrhea or other changes reported by the nursing staff. PHYSICAL EXAMINATION: Blood pressure 148/73 with a pulse of 109, temperature 98.8. He is 95% on 2 L nasal cannula. General description is an elderly female lying in bed in no distress. Respiratory system: Unlabored breathing, clear to auscultation anteriorly. Heart S1, S2. Regular rate and rhythm. Abdomen soft, no tenderness. Extremities: No edema of the feet. LAB: Creatinine is 1.4. Mack catheter was changed yesterday. Repeat UA is significantly positive, showing budding yeast. DIAGNOSTIC IMPRESSION AND PLAN: Patient with catheter associated urinary tract infection with change of the Mack catheter. It is hard to get any history from this patient, however, she did have a low- grade fever. Mack catheter has already been changed. Still have significantly positive UA with cultures showing Keeley glabrata. Will give short course of Vfend and monitor clinical course closely. Continue supportive care. MMODL / IJN: [id number] / INES
[2020-10-31 17:42] LABS: Glucose,Whole Blood 151 mg/dL (75-99)
[2020-10-31 20:23] LABS: Glucose,Whole Blood 197 mg/dL (75-99)
[2020-10-31] MEDS: OLANZapine 5 MG TAB PO SCH (21:20)
[2020-10-31] MEDS: LATANOPROST 0.005% OPHTH DROPS 2.5 ML BTL BOTH EYES SCH (21:21)
--- NOTE | 2020-10-31 22:45 | P.PN ---
Subjective Progress Note Date: 10/31/20 Ms. Sofia is a 75-year-old with a past medical history of coronary artery disease, diabetes mellitus, hypertension, hyperlipidemia, left ankle surgery done recently, recent C. diff colitis brought in by her daughter and family secondary to difficulty in breathing. Most of the history is given by her daughter and son-in-law who were present at the bedside as the patient does not speak [place]. They mentioned that during her last hospital stay patient gained significant amount of weight, possibly due to fluid retention and was having mild difficulty in breathing. But last night she was having more shortness of breath that prompted them to bring her to the hospital. She was recently admitted in the hospital from 10/09/2020 2 10/23/2020. Patient has C. diff colitis and was discharged on by mouth antibiotics. During that previous admission patient had acute kidney injury as well. They denied having any fevers chills or rigors. No diarrhea, abdominal pain or nausea. No dysuria or hematuria. They mentioned that she has stage I sacral decubitus ulcer. She also recently had left ankle surgery done, was told not to bear weight on the left lower extremity. No complaints of chest pain or palpitations. No loss of consciousness, headache or visual disturbances. No weakness of the extremities, has generalized weakness. In the ED at the time of admission heart rate 98, respiratory 20, blood pressure 1/31 a 65, saturating at 91% on room air. She had chest x-ray done showing mild chronic congestive heart failure with increased pleural effusion compared to old exam. Reviewing her labs white count of 8.9, hemoglobin 10.4, platelets 504. Sodium 135, potassium 4.7, chloride 108, bicarb 20, BUN 19, creatinine 1.53. Urine analysis positive for moderate leukocyte esterase, 14 WBCs. FOBT negative. EKG showing low voltage with sinus tachycardia. Patient also had significant hypoglycemia with a glucose as low as 34. 10/28/2020 Patient is seen in follow-up this morning with cardiology following. Patient continues to be lethargic and not eating very much. Patient also continues to have some shortness of breath and diminished breath sounds noted bilaterally and patient continues on 3 L of oxygen via nasal cannula with continued shortness of breath and does not normally wear oxygen in the outpatient setting. Given patient's worsening kidney functions will order VQ scan and consult pulmonary. Patient continues on heparin subcu for now and will discuss with pulmonary about anticoagulation. Will discontinue Lasix for now and continue a gentle IV hydration. 10/29/2020 Patient is seen and evaluated in follow-up this morning with family at the bedside and multiple medical consultations following. Patient has been seen and evaluated by nephrology for renal clearance for CTA as creatinine was elevated and maintained on gentle IV hydration and Lasix was discontinued. Patient cleared for CTA to rule out possible pulmonary embolism as noted on VQ scan. CTA was negative for pulmonary embolism and noted to have continued large bilateral pleural effusions. Pulmonary is following and will be given a dose of Lasix IV push after CTA and required IV hydration. Continues to be short of breath when currently maintained on 3-4 L of oxygen via nasal cannula. Patient continues to not eat very much and discussed with family at the bedside who states this is chronic and she only eats at home. She does eat the food that they bring in. Patient continues to be extremely weak and have discussed possible rehab with family and they are adamant about her returning home and does have home care in the outpatient setting. Will repeat a.m. labs and continue to monitor closely. 10/30/2020 Patient is seen in follow-up this morning continues to be short of breath currently on 4 L of oxygen and maintaining oxygen saturations of 90-93%. Pulmonary following closely along with cardiology, nephrology, and infectious disease. Patient will continue on IV Lasix she continues to have bilateral pleural effusions with possibility of thoracentesis if no improvement with diuresis. Repeat chest x-ray in the morning to monitor closely. Magnesium today is 1.6 and will replace per protocol and repeat a.m. labs. Odium is 138 with a potassium of 4.5 and current creatinine is 1.4. Blood sugars elevated and will add sliding scale and monitor closely with Accu-Cheks before meals and at bedtime. 10/31/2020 Patient is seen and evaluated this morning currently sitting up in the chair on 2 L of oxygen. Patient continues on IV Lasix with multiple medical consultati ons following. Diuresing well and kidney functions stable. Patient urinalysis showing renato non albicans and awaiting repeat culture to finalize. Chronic indwelling turner catheter changed. Infectious disease following. Patient with low grade temp. Repeat chest xray shows continued effusions. Pulmonary is following. Review of systems: Constitutional: reports of fatigue, no reports of fever, or chills Cardiovascular: No reports of chest pain or palpitations Respiratory: reports of shortness of breath and continued cough GI: No reports of nausea, vomiting, or diarrhea : No reports of dysuria or retention Neurovascular: Reports generalized weakness All medications have been reviewed Active Medications Acetaminophen (Acetaminophen Tab 325 Mg Tab) 650 mg PO Q6H PRN PRN Reason: Mild Pain or Fever > 100.5 Last Admin: 10/31/20 10:31 Dose: 650 mg Documented by: Albuterol/Ipratropium (Ipratropium-Albuterol 3 Ml Neb) 3 ml INHALATION RT-QID PRN PRN Reason: Shortness Of Breath Or Wheezing Last Admin: 10/26/20 15:50 Dose: 3 ml Documented by: Atorvastatin Calcium (Atorvastatin 10 Mg Tab) 10 mg PO DAILY [facility] Last Admin: 10/31/20 10:15 Dose: 10 mg Documented by: Cholecalciferol (Cholecalciferol 25 Mcg (1000 Iu) Tablet) 25 mcg PO DAILY [facility] Last Admin: 10/31/20 10:15 Dose: 25 mcg Documented by: Cholestyramine Resin (Cholestyramine (With Sugar) 4 Gm Packet) 4 gm PO BID@1000,2100 [facility] Last Admin: 10/31/20 10:18 Dose: 4 gm Documented by: Darbepoetin Aba (Darbepoetin Aba 40 Mcg/0.4 Ml Syringe) 40 mcg SQ Q7D [facility] Last Admin: 10/29/20 11:56 Dose: 40 mcg Documented by: Dextrose/Water (Dextrose 50% Syringe 50 Ml) 50 ml IVP ONCE PRN PRN Reason: Hypoglycemia Donepezil HCl (Donepezil 5 Mg Tab) 5 mg PO DAILY [facility] Last Admin: 10/31/20 10:19 Dose: 5 mg Documented by: Furosemide (Furosemide 10 Mg/Ml 4 Ml Vial) 40 mg IV Q12HR [facility] Last Admin: 10/31/20 10:19 Dose: 40 mg Documented by: Heparin Sodium (Porcine) (Heparin Sodium,Porcine/Pf 5,000 Unit/0.5 Ml Syringe) 5,000 unit SQ Q8HR [facility] Last Admin: 10/31/20 16:21 Dose: 5,000 unit Documented by: Insulin Aspart (Insulin Aspart (Novolog) 100 Unit/Ml Vial) 0 unit SQ [facility]; Protocol Last Admin: 10/31/20 13:27 Dose: 4 unit Documented by: Latanoprost (Latanoprost 0.005% Ophth Drops 2.5 Ml Btl) 1 drops [facility] Last Admin: 10/30/20 21:05 Dose: Not Given Documented by: Metoprolol Succinate (Metoprolol Succinate (Er) 100 Mg Tab.Er.24h) 200 mg PO DAILY [facility] Last Admin: 10/31/20 10:19 Dose: 200 mg Documented by: Naloxone HCl (Naloxone 0.4 Mg/Ml 1 Ml Vial) 0.2 mg IV Q2M PRN PRN Reason: Opioid Reversal Olanzapine (Olanzapine 5 Mg Tab) 5 mg PO HS [facility] Last Admin: 10/30/20 21:02 Dose: 5 mg Documented by: Pantoprazole Sodium (Pantoprazole 40 Mg Tablet) 40 mg PO AC-BID [facility] Last Admin: 10/31/20 10:16 Dose: 40 mg Documented by: Sucralfate (Sucralfate 1 Gm Tab) 1 gm PO AC-TID [facility] Last Admin: 10/31/20 12:20 Dose: 1 gm Documented by: Voriconazole (Voriconazole 200 Mg Tab) 300 mg PO Q12HR [facility] Last Admin: 10/31/20 12:30 Dose: 300 mg Documented by: Objective - Vital Signs Vital signs: Vital Signs Temp 99.3 F 10/31/20 07:00 Pulse 109 H 10/31/20 07:00 Resp 18 10/31/20 07:00 BP 148/73 10/31/20 07:00 Pulse Ox 95 10/31/20 07:00 Intake & Output 10/30/20 10/31/20 10/31/20 18:59 06:59 18:59 Output Total 1425 700 Balance -1425 -700 Weight 69.127 kg Output: Urine 1425 700 Uretheral (Turner) 800 Other: Voiding Method Indwelling Catheter # Bowel Movements 1 - Exam GENERAL: Comfortably sitting up in the chair. Alert and oriented 2 with language barrier noted. Family at the bedside. Continued on 2 L of oxygen via nasal cannula HEENT: Pupils are round and equally reacting to light. EOMI. No scleral icterus. No conjunctival pallor. CARDIOVASCULAR: S1 and S2 present. Tachycardia. PULMONARY: Diminished breath sounds bilaterally at the lower lobes. Mild crackles at the lower lung bases. ABDOMEN: Soft, non-tender, normal bowel sounds. No guarding or rigidity. MUSCULOSKELETAL: No joint swelling or deformity. EXTREMITIES: No edema noted to lower extremities. Left ankle noted with equalizer boot NEUROLOGICAL: Gross neurological examination did not reveal any focal deficits. SKIN:No rash, Stage I sacral decubitus ulcer - Labs CBC & Chem 7: 10/28/20 06:44 10/31/20 06:02 Labs: Abnormal Lab Results - Last 24 Hours (Table) 10/30/20 10/30/20 10/30/20 Range/Units 12:11 17:13 17:45 Est GFR (CKD-EPI)AfAm (60.0-200.0) Est GFR (CKD-EPI)NonAf (60.0-200.0) Glucose (70-110) mg/dL POC Glucose (mg/dL) 281 H 246 H (75-99) mg/dL Urine Appearance Cloudy H (Clear) Urine Protein Trace H (Negative) Urine Blood Trace H (Negative) Ur Leukocyte Esterase Large H (Negative) Urine RBC 28 H (0-5) /hpf Urine WBC 45 H (0-5) /hpf Urine WBC Clumps Few H (None) /hpf Urine Bacteria Rare H (None) /hpf Hyaline Casts 5 H (0-2) /lpf Urine Mucus Rare H (None) /hpf Urine Yeast (Budding) Many H (None) /hpf 10/30/20 10/31/20 10/31/20 Range/Units 20:42 06:02 07:48 Est GFR (CKD-EPI)AfAm 42.8 L (60.0-200.0) Est GFR (CKD-EPI)NonAf 36.9 L (60.0-200.0) Glucose 157 H (70-110) mg/dL POC Glucose (mg/dL) 217 H 192 H (75-99) mg/dL Urine Appearance (Clear) Urine Protein (Negative) Urine Blood (Negative) Ur Leukocyte Esterase (Negative) Urine RBC (0-5) /hpf Urine WBC (0-5) /hpf Urine WBC Clumps (None) /hpf Urine Bacteria (None) /hpf Hyaline Casts (0-2) /lpf Urine Mucus (None) /hpf Urine Yeast (Budding) (None) /hpf Microbiology - Last 24 Hours (Table) 10/30/20 17:45 Urine Culture - Preliminary Urine,Clean Catch Assessment and Plan Assessment: Shortness of breath could be secondary to CHF exacerbation vs bilateral pleural effusion vs hypoalbuminemia Acute on chronic Diastolic congestive heart failure, acute exacerbation Shortness of breath possibly secondary to pulmonary embolism as noted on VQ scan or possibly secondary to bilateral pleural effusions Pulmonary embolism ruled out on CTA Bilateral pleural effusion Acute kidney injury most likely acute tubular necrosis and possible cardiorenal syndrome Hypoglycemia Recent C. diff colitis Recent colon polyp removal History of coronary artery disease Diabetes mellitus2, uncontrolled with hyperglycemia Dyslipidemia Hypertension Recent history of left ankle fracture Stage I sacral decubitus ulcer Stage III CKD Moderate protein calorie malnutrition GI prophylaxis DVT prophylaxis Full code PLAN: Multiple medical consultations following including nephrology, cardiology, pulmonary, and infectious disease. Patient continues to be short of breath requiring 2 L of oxygen and continued bilateral pleural effusions and kidney functions are stable and maintained on IV Lasix for diuresis and will continue to monitor closely. Patient with good urinary output. Awaiting repeat urine cultue. Infectious disease following. Wean FiO2 as tolerated. Continued encouragement to use incentive spirometer at least 10 times every hour while awake. Due to multiple complex medical issues prognosis is extremely guarded.
[2020-11-01 07:03] LABS: African American GFR (CKD) 47 (>60 ml/min/1.73 sqM); Anion Gap 8 mmol/L; Blood Urea Nitrogen 20 mg/dL (7-17); Calcium 9.7 mg/dL (8.4-10.2); Carbon Dioxide 27 mmol/L (22-30); Chloride 101 mmol/L (98-107); Glucose 210 mg/dL (74-99); Magnesium 1.8 mg/dL (1.6-2.3); Non-African American GFR(CKD) 41 (>60 ml/min/1.73 sqM); Potassium 4.7 mmol/L (3.5-5.1); Sodium 136 mmol/L (137-145)
[2020-11-01 07:53] LABS: Glucose,Whole Blood 216 mg/dL (75-99)
[2020-11-01] MEDS: FUROSEMIDE 10 MG/ML 4 ML VIAL IV SCH ×2 (08:15→19:56)
[2020-11-01] MEDS: PANTOPRAZOLE 40 MG TABLET PO SCH ×2 (08:16→17:55)
[2020-11-01] MEDS: VORICONAZOLE 200 MG TAB PO SCH ×2 (08:17→19:56)
[2020-11-01] MEDS: METOPROLOL SUCCINATE (ER) 100 MG TAB.ER.24H PO SCH (08:17)
[2020-11-01] MEDS: SUCRALFATE 1 GM TAB PO SCH ×3 (08:18→17:55)
[2020-11-01] MEDS: ATORVASTATIN 10 MG TAB PO SCH (08:18)
[2020-11-01] MEDS: CHOLECALCIFEROL 25 MCG (1000 IU) TABLET PO SCH (08:18)
[2020-11-01] MEDS: HEPARIN SODIUM,PORCINE/PF 5,000 UNIT/0.5 ML SYRINGE SQ SCH ×3 (08:18→19:57)
[2020-11-01] MEDS: DONEPEZIL 5 MG TAB PO SCH (08:19)
[2020-11-01] MEDS: CHOLESTYRAMINE (WITH SUGAR) 4 GM PACKET PO SCH ×2 (08:19→19:55)
[2020-11-01] MEDS: INSULIN ASPART (NovoLOG) 100 UNIT/ML VIAL SQ SCH ×4 (08:19→21:26)
--- NOTE | 2020-11-01 09:10 | P.PN ---
Subjective Patient is seen in follow-up for acute kidney injury on chronic kidney disease. Renal function improving. Not a reliable historian. Blood pressure stable. Nonoliguric. On 2 L nasal cannula. On IV Lasix. Vital signs are stable. General: The patient appeared well nourished and normally developed. HEENT: Head exam is unremarkable. On nasal cannula. LUNGS: Breath sounds decreased. HEART: Tachycardic. ABDOMEN: Soft, no distention. EXTREMITITES: No edema. Objective - Vital Signs Vital signs: Vital Signs Temp 99.2 F 11/01/20 08:20 Pulse 105 H 11/01/20 08:20 Resp 16 11/01/20 08:20 BP 137/74 11/01/20 08:20 Pulse Ox 92 L 11/01/20 08:20 Intake & Output 10/31/20 11/01/20 11/01/20 18:59 06:59 18:59 Intake Total 360 Output Total 1000 650 Balance -640 -650 Intake: Oral 360 Output: Urine 1000 650 Other: Voiding Method Indwelling Catheter Indwelling Catheter Indwelling Catheter # Voids 1 # Bowel Movements 1 1 - Labs CBC & Chem 7: 10/28/20 06:44 11/01/20 06:24 Labs: Abnormal Lab Results - Last 24 Hours (Table) 10/31/20 10/31/20 10/31/20 Range/Units 06:02 12:33 17:40 Sodium (137-145) mmol/L BUN (7-17) mg/dL Creatinine (0.52-1.04) mg/dL Est GFR (CKD-EPI)AfAm 42.8 L (60.0-200.0) Est GFR (CKD-EPI)NonAf 36.9 L (60.0-200.0) Glucose 157 H (70-110) mg/dL POC Glucose (mg/dL) 274 H 151 H (75-99) mg/dL 10/31/20 11/01/20 11/01/20 Range/Units 20:22 06:24 07:52 Sodium 136 L (137-145) mmol/L BUN 20 H (7-17) mg/dL Creatinine 1.29 H (0.52-1.04) mg/dL Est GFR (CKD-EPI)AfAm (60.0-200.0) Est GFR (CKD-EPI)NonAf (60.0-200.0) Glucose 210 H (70-110) mg/dL POC Glucose (mg/dL) 197 H 216 H (75-99) mg/dL Assessment and Plan Plan: Assessment: 1. Acute kidney injury secondary to ATN secondary to cardiorenal syndrome. Renal function improved from admission. Creatinine 1.29. No evidence of contrast-induced acute kidney injury. 2. Chronic kidney disease stage IIIb with baseline creatinine in the range of 1.3-1.5 secondary to diabetic kidney disease. 3. Anemia of chronic kidney disease. No active bleeding. High ferritin noted. On Aranesp. 4. Diabetes mellitus. 5. High probability of PE. No PE noted on VQ scan. 6. Acute on chronic diastolic CHF with ejection fraction of 45-50%. 7. Metabolic acidosis secondary to acute kidney injury. Resolved. 8. Volume overload. Improving with diuresis. 9. Hypomagnesemia from diuresis and poor intake. Replaced. Stable. Plan: Maintain IV Lasix. Avoid nephrotoxins. Continue to monitor renal function and urine output.
--- NOTE | 2020-11-01 12:32 | P.PN ---
Subjective Progress Note Date: 11/01/20 Principal diagnosis: Acute hypoxic respiratory failure This is a 75-year-old female with past medical history of CAD, diabetes mellitus type 2, hypertension, hyperlipidemia, recent surgery on her left ankle, recent history of UTI for which the patient completed a course of antibiotics, and subsequently patient was hospitalized with C. diff colitis. During the same admission patient developed acute GI bleeding, and she underwent EGD and colonoscopy by Dr. Bustillo on 10/22/2020 and was found to have a large duodenal ulcer, gastritis, and pancolitis.. Patient also developed an acute kidney injury related to ATN secondary to multiple loose bowel movements, GI bleeding, and poor oral intake. Patient was discharged home on Cipro and Flagyl on 10/23/2020 with visiting nurses. On 10/25/2020 patient was brought back to the emergency department by EMS for complaints of shortness of breath, decreased level of responsiveness, and increased swelling in her bilateral lower extremities. Of note patient did have lower extremity Dopplers during her previous admission on 10/23/2020 which showed no evidence of DVT. Chest x-ray on admission shows pulmonary vascular congestion, and moderate-sized bilateral pleural effusions. Patient's family denied patient having any fever, they do report mild cough with no phlegm production, no hemoptysis, no complaints of chest pain. They also report patient being very weak and tired. On admission her white blood cell count is 11.8, hemoglobin is 10.5, platelet count is 842, INR is 1.0, sodium is 134, potassium is 4.9, chloride is 107, CO2 was 18, BUN was 19, creatinine was 1.49, local was 34, troponin was negative at less than 0.012, proBNP was 4070. Urinalysis showed possibility of urinary tract infection, urine culture showed Keeley species. Exhalation is already on a combination of ciprofloxacin and Flagyl. Cardiology saw the patient in consultation for possibility of acute CHF, echocardiogram was completed showing moderate concentric LVH, mildly impaired left ventricle systolic function with an EF of 45-50%, small generalized pericardial effusion. Patient was diuresed, and her renal function slightly worsened, and on today's labs creatinine is up to 1.7. Patient still requiring oxygen, currently at 3 L, with a pulse ox of 97%, remains persistently hypoxemic, follow-up chest x-ray today was completed showing bilateral pleural effusions with cardiomegaly and bibasilar infiltrates, and diffuse interstitial pattern. VQ scan was completed showing a wedge-shaped defect in the left lower lobe laterally, and another smaller wedge-shaped defect involving the right midlung zone, and the findings demonstrated high probability for pulmonary embolism. We were consulted in regards to abnormal VQ scan, and persistent hypoxia The patient is seen today 10/29/2020 in follow-up on the regular medical floor. She is currently resting comfortably in bed. Awake and alert in no acute distress. She is maintaining O2 saturations in the mid 90s on 2 L/m per nasal cannula. Afebrile. Tachycardic. CT angiogram ruled out pulmonary embolism. There is moderate pericardial effusion. Moderate bilateral pleural effusions with surrounding atelectasis. Cardiomegaly. Coronary artery calcifications. Urine culture positive for Keeley species. Blood glucose 204. Other labs are pending. She is currently on Cipro and Flagyl. Been initiated on bronchodilators. Heparin for DVT prophylaxis. She is seen today 10/30/2020 in follow-up on the regular medical floor. She remains awake and alert in no acute distress. Resting fairly comfortably in bed. Maintaining O2 saturations in the 90s on 4 L/m per nasal cannula. She's afebrile. Her culture positive for Keeley only. Sodium 138. Potassium 4.5. Creatinine 1.4. Remains on IV diuretics, bronchodilators. Worsening shortness of breath, cough or congestion. The patient is seen today 10/31/2020 in follow-up on the regular medical floor. She is currently resting comfortably in bed. Awake and alert in no acute distress. Breathing a bit easier today compared to yesterday. Maintaining good O2 saturations in the 90s on room air. X-ray continues to reveal basilar effusions left greater than right. Sodium 136. Potassium 4.9. BUN 19. Creatinine 1.4. She remains on Lasix 40 mg IV every 12 hours. Plan is -1.5 mL balance. 69.1 kg. The patient is seen today 11/01/2020 in follow-up on the regular medical floor. She is awake and alert in no acute distress. Actually laying flat in bed. On room air. Maintaining good O2 saturations in the 90s. No worsening shortness of breath, cough or congestion. She is diuresing well. Remains in a negative balance. Sodium 136. Potassium 4.7. Creatinine 1.29. Glucose 210. Remains on bronchodilators, IV diuretics, heparin for DVT prophylaxis. Objective - Vital Signs Vital signs: Vital Signs Temp 99.2 F 11/01/20 08:20 Pulse 105 H 11/01/20 08:20 Resp 16 11/01/20 08:20 BP 137/74 11/01/20 08:20 Pulse Ox 92 L 11/01/20 08:20 Intake & Output 10/31/20 11/01/20 11/01/20 18:59 06:59 18:59 Intake Total 360 Output Total 1000 650 Balance -640 -650 Intake: Oral 360 Output: Urine 1000 650 Other: Voiding Method Indwelling Catheter Indwelling Catheter Indwelling Catheter # Voids 1 # Bowel Movements 1 1 - Exam GENERAL EXAM: Alert, pleasant 75-year-old female patient, on room air, fairly comfortable in no apparent distress. HEAD: Normocephalic. EYES: Normal reaction of pupils, equal size. NOSE: Clear with pink turbinates. THROAT: No erythema or exudates. NECK: No masses, no JVD. CHEST: No chest wall deformity. LUNGS: Equal air entry with crackles in the bilateral bases, diminished. CVS: S1 and S2 normal with no audible murmur, regular rhythm. ABDOMEN: No hepatosplenomegaly, normal bowel sounds, no guarding or rigidity. SPINE: No scoliosis or deformity SKIN: No rashes CENTRAL NERVOUS SYSTEM: No focal deficits, tone is normal in all 4 extremities. EXTREMITIES: There is no peripheral edema. No clubbing, no cyanosis. Peripheral pulses are intact. - Labs CBC & Chem 7: 10/28/20 06:44 11/01/20 06:24 Labs: Abnormal Lab Results - Last 24 Hours (Table) 10/31/20 10/31/20 10/31/20 Range/Units 12:33 17:40 20:22 Sodium (137-145) mmol/L BUN (7-17) mg/dL Creatinine (0.52-1.04) mg/dL Glucose (74-99) mg/dL POC Glucose (mg/dL) 274 H 151 H 197 H (75-99) mg/dL 11/01/20 11/01/20 Range/Units 06:24 07:52 Sodium 136 L (137-145) mmol/L BUN 20 H (7-17) mg/dL Creatinine 1.29 H (0.52-1.04) mg/dL Glucose 210 H (74-99) mg/dL POC Glucose (mg/dL) 216 H (75-99) mg/dL Assessment and Plan Assessment: 1 Acute hypoxic respiratory failure, multifactorial, related to acute CHF mildly impaired EF of 45-50% bilateral pleural effusions. Recovered and the patient is on room air. Continued on IV diuretics. 2 High probability VQ scan, CT angiogram ruled out pulmonary embolism 3 Acute kidney injury improving current creatinine 1.29 4 Recent hospitalization for C. diff colitis, acute GI blood loss anemia, and patient was found to have a large duodenal ulcer, gastritis, and pancolitis 5 Acute GI blood loss anemia 6 History of hypertension 7 Hyperlipidemia 8 Diabetes mellitus type 2 9 Coronary artery disease with previous stent placement 10 Lifetime nonsmoker, no history of chronic lung disease 11 Recent history of left ankle surgery in September 2020 at [facility] 12 Left heel pressure ulcer wound 13 Episodes of hypoglycemia, likely related to oral hypoglycemic medications in the setting of acute kidney injury. Currently Actos and Amaryl are both on hold Plan: The patient was seen and evaluated by Dr. Chambers Continue IV diuretics Follow-up chest x-ray in a.m. We will continue to follow I, the cosigning physician, performed a history & physical examination of the patient. Lungs sounds crackles in the bilateral posterior bases, diminished. Maintaining good O2 saturations in the 90s on room air. I discussed the assessment and plan of care with my nurse practitioner, Saskia Padilla. I attest to the above note as dictated by her.
[2020-11-01 12:41] LABS: Glucose,Whole Blood 200 mg/dL (75-99)
--- NOTE | 2020-11-01 16:51 | PN ---
PROGRESS NOTE DATE OF SERVICE: 11/01/2020 REASON FOR FOLLOWUP: Urinary tract infection. INTERVAL HISTORY: The patient is currently afebrile. The patient is breathing comfortably. No chest pain or shortness of breath or cough. Did have problems with vomiting. Denies any abdominal pain and no diarrhea. PHYSICAL EXAMINATION: Her blood pressure is 137/74 with a pulse of 105, temperature 99.2. She is 92% on room air. GENERAL DESCRIPTION: General description is an elderly female lying in bed in no distress. RESPIRATORY SYSTEM: Unlabored breathing. Clear to auscultation anteriorly. HEART: S1, S2. Regular rate and rhythm. ABDOMEN: Soft. No tenderness. LABS: BUN of 20, creatinine 1.29. DIAGNOSTIC IMPRESSION AND PLAN: Patient with a positive urine culture with Keeley, non albicans, concerning for CAUTI. Mack catheter has been changed. Repeat urine is still positive. Patient is covered with Voriconazole; to continue while monitoring clinical course closely. Continue with supportive care. MMODL / IJN: [id number] / MTDD
[2020-11-01 17:46] LABS: Glucose,Whole Blood 257 mg/dL (75-99)
[2020-11-01] MEDS: OLANZapine 5 MG TAB PO SCH (19:56)
[2020-11-01] MEDS: LATANOPROST 0.005% OPHTH DROPS 2.5 ML BTL BOTH EYES SCH (19:57)
[2020-11-01 21:13] LABS: Glucose,Whole Blood 169 mg/dL (75-99)
[2020-11-02] MEDS: ACETAMINOPHEN TAB 325 MG TAB PO PRN (01:02)
[2020-11-02 05:03] LABS: African American GFR (CKD) 40 (>60 ml/min/1.73 sqM); Anion Gap 7 mmol/L; Blood Urea Nitrogen 20 mg/dL (7-17); Calcium 9.5 mg/dL (8.4-10.2); Carbon Dioxide 28 mmol/L (22-30); Chloride 101 mmol/L (98-107); Glucose 162 mg/dL (74-99); Magnesium 1.8 mg/dL (1.6-2.3); Non-African American GFR(CKD) 35 (>60 ml/min/1.73 sqM); Potassium 4.4 mmol/L (3.5-5.1); Sodium 136 mmol/L (137-145)
[2020-11-02] MEDS: SUCRALFATE 1 GM TAB PO SCH ×3 (07:20→17:44)
[2020-11-02] MEDS: PANTOPRAZOLE 40 MG TABLET PO SCH ×2 (07:20→17:44)
[2020-11-02] MEDS: FUROSEMIDE 10 MG/ML 4 ML VIAL IV SCH ×2 (07:20→19:16)
[2020-11-02] MEDS: CHOLECALCIFEROL 25 MCG (1000 IU) TABLET PO SCH (07:21)
[2020-11-02] MEDS: VORICONAZOLE 200 MG TAB PO SCH ×2 (07:21→19:17)
[2020-11-02] MEDS: METOPROLOL SUCCINATE (ER) 100 MG TAB.ER.24H PO SCH (07:21)
[2020-11-02] MEDS: DONEPEZIL 5 MG TAB PO SCH (07:21)
[2020-11-02] MEDS: ATORVASTATIN 10 MG TAB PO SCH (07:21)
[2020-11-02] MEDS: HEPARIN SODIUM,PORCINE/PF 5,000 UNIT/0.5 ML SYRINGE SQ SCH ×3 (07:22→20:35)
--- NOTE | 2020-11-02 07:27 | XR ---
EXAMINATION TYPE: XR chest 1V portable DATE OF EXAM: 11/02/2020 COMPARISON: Chest x-ray 10/31/2020, chest CT 10/29/2020 HISTORY: Congestive heart failure TECHNIQUE: Single frontal view of the chest is obtained. FINDINGS: Findings are similar to prior exam. IMPRESSION: Correlate for congestive heart failure with basilar effusions, there is cardiomegaly, pe ricardial effusion
[2020-11-02 07:58] LABS: Glucose,Whole Blood 197 mg/dL (75-99)
[2020-11-02] MEDS: INSULIN ASPART (NovoLOG) 100 UNIT/ML VIAL SQ SCH ×4 (08:02→20:35)
[2020-11-02] MEDS: CHOLESTYRAMINE (WITH SUGAR) 4 GM PACKET PO SCH ×2 (08:02→19:16)
--- NOTE | 2020-11-02 09:22 | P.PN ---
Subjective Patient is seen in follow-up for acute kidney injury on chronic kidney disease. Renal function a little worse today from diuresis. Not a reliable historian. Blood pressure stable. Nonoliguric. On 2 L nasal cannula. On IV Lasix. Vital signs are stable. General: The patient appeared well nourished and normally developed. HEENT: Head exam is unremarkable. On nasal cannula. LUNGS: Breath sounds decreased. HEART: Tachycardic. ABDOMEN: Soft, no distention. EXTREMITITES: No edema. Objective - Vital Signs Vital signs: Vital Signs Temp 98.0 F 11/02/20 07:00 Pulse 104 H 11/02/20 07:00 Resp 18 11/02/20 07:00 BP 105/55 11/02/20 07:00 Pulse Ox 100 11/02/20 07:00 Intake & Output 11/01/20 11/02/20 11/02/20 18:59 06:59 18:59 Output Total 600 Balance -600 Output: Urine 600 Other: Voiding Method Indwelling Catheter Indwelling Catheter Indwelling Catheter # Voids 1 1 - Labs CBC & Chem 7: 10/28/20 06:44 11/02/20 04:17 Labs: Abnormal Lab Results - Last 24 Hours (Table) 11/01/20 11/01/20 11/01/20 Range/Units 12:40 17:44 21:11 Sodium (137-145) mmol/L BUN (7-17) mg/dL Creatinine (0.52-1.04) mg/dL Glucose (74-99) mg/dL POC Glucose (mg/dL) 200 H 257 H 169 H (75-99) mg/dL 11/02/20 11/02/20 Range/Units 04:17 07:57 Sodium 136 L (137-145) mmol/L BUN 20 H (7-17) mg/dL Creatinine 1.48 H (0.52-1.04) mg/dL Glucose 162 H (74-99) mg/dL POC Glucose (mg/dL) 197 H (75-99) mg/dL Microbiology - Last 24 Hours (Table) 10/30/20 17:45 Urine Culture - Final Urine,Clean Catch Keeley glabrata Assessment and Plan Plan: Assessment: 1. Acute kidney injury secondary to ATN secondary to cardiorenal syndrome. Renal function slightly worse from diuresis - creatinine 1.48 today. No evide nce of contrast-induced acute kidney injury. 2. Chronic kidney disease stage IIIb with baseline creatinine in the range of 1.3-1.5 secondary to diabetic kidney disease. 3. Anemia of chronic kidney disease. No active bleeding. High ferritin noted. On Aranesp. 4. Diabetes mellitus. 5. High probability of PE. No PE noted on VQ scan. 6. Acute on chronic diastolic CHF with ejection fraction of 45-50%. 7. Metabolic acidosis secondary to acute kidney injury. Resolved. 8. Volume overload. Improving with diuresis. 9. Hypomagnesemia from diuresis and poor intake. Replaced. Stable. Plan: Maintain IV Lasix. Avoid nephrotoxins. Continue to monitor renal function and urine output. Chest x-ray from this morning still suggestive of fluid overload.
--- NOTE | 2020-11-02 12:00 | P.PN ---
Subjective Progress Note Date: 11/02/20 On today's evaluation of a 2020, the patient is on oxygen at 2 L pH is still diuresing very well on Lasix and the patient is receiving Lasix 40 mg IV every 12 hours. Her fluid balance is -1.2 L over the past 24 hours and she's had a torn other 1 L negative for today. A repeat chest x-ray was done today and it showed bilateral pleural effusions and cardiomegaly. In comparison, a change or improvement in the amount of pleural effusion. As such, I may consider a thoracentesis on this patient by tomorrow if there is no further improvement. Meanwhile, the patient was found to have Keeley glabrata in her urine culture and the patient is being treated accordingly. She remains on IV Lasix. The creatinine remains stable at 1.48. She is still making excellent urine output. Her breathing is less labored compared to earlier. Objective - Vital Signs Vital signs: Vital Signs Temp 98.0 F 11/02/20 07:00 Pulse 104 H 11/02/20 07:00 Resp 18 11/02/20 07:00 BP 105/55 11/02/20 07:00 Pulse Ox 100 11/02/20 07:00 Intake & Output 11/01/20 11/02/20 11/02/20 18:59 06:59 18:59 Output Total 600 980 Balance -600 -980 Output: Urine 600 980 Other: Voiding Method Indwelling Catheter Indwelling Catheter Indwelling Catheter # Voids 1 1 - Exam GENERAL EXAM: Alert, pleasant 75-year-old female patient, on room air, fairly comfortable in no apparent distress. HEAD: Normocephalic. EYES: Normal reaction of pupils, equal size. NOSE: Clear with pink turbinates. THROAT: No erythema or exudates. NECK: No masses, no JVD. CHEST: No chest wall deformity. LUNGS: Equal air entry with crackles in the bilateral bases, diminished. CVS: S1 and S2 normal with no audible murmur, regular rhythm. ABDOMEN: No hepatosplenomegaly, normal bowel sounds, no guarding or rigidity. SPINE: No scoliosis or deformity SKIN: No rashes CENTRAL NERVOUS SYSTEM: No focal deficits, tone is normal in all 4 extremities. EXTREMITIES: There is no peripheral edema. No clubbing, no cyanosis. Peripheral pulses are intact. - Labs CBC & Chem 7: 10/28/20 06:44 11/02/20 04:17 Labs: Abnormal Lab Results - Last 24 Hours (Table) 11/01/20 11/01/20 11/01/20 Range/Units 12:40 17:44 21:11 Sodium (137-145) mmol/L BUN (7-17) mg/dL Creatinine (0.52-1.04) mg/dL Glucose (74-99) mg/dL POC Glucose (mg/dL) 200 H 257 H 169 H (75-99) mg/dL 11/02/20 11/02/20 Range/Units 04:17 07:57 Sodium 136 L (137-145) mmol/L BUN 20 H (7-17) mg/dL Creatinine 1.48 H (0.52-1.04) mg/dL Glucose 162 H (74-99) mg/dL POC Glucose (mg/dL) 197 H (75-99) mg/dL Microbiology - Last 24 Hours (Table) 10/30/20 17:45 Urine Culture - Final Urine,Clean Catch Keeley glabrata Assessment and Plan Plan: 1 Acute hypoxic respiratory failure, multifactorial, related to acute CHF mildl y impaired EF of 45-50% bilateral pleural effusions. Recovered and the patient is on room air. Continued on IV diuretics. Clinically improving although the chest x-ray still showing large amount about the pleural effusion. The patient remains on IV Lasix. 2 High probability VQ scan, CT angiogram ruled out pulmonary embolism 3 Acute kidney injury improving current creatinine 1.4 4 Recent hospitalization for C. diff colitis, acute GI blood loss anemia, and patient was found to have a large duodenal ulcer, gastritis, and pancolitis 5 Acute GI blood loss anemia 6 History of hypertension 7 Hyperlipidemia 8 Diabetes mellitus type 2 9 Coronary artery disease with previous stent placement 10 Lifetime nonsmoker, no history of chronic lung disease 11 Recent history of left ankle surgery in September 2020 at [facility] 12 Left heel pressure ulcer wound 13 Episodes of hypoglycemia, likely related to oral hypoglycemic medications in the setting of acute kidney injury. Currently Actos and Amaryl are both on hold Plan: Continue IV diuretics The patient is responding to diuretics and she remains in a negative fluid balance. Nevertheless, the follow-up chest x-ray from today still showing bilateral pleural effusion. I think we are at the [facility] thoracentesis to improve her volume status. Continue treatment with Vfend for Keeley glabrata Follow-up chest x-ray in a.m. Lites in the a.m. and renal function We will continue to follow
[2020-11-02 12:21] LABS: Glucose,Whole Blood 162 mg/dL (75-99)
[2020-11-02 17:14] LABS: Glucose,Whole Blood 229 mg/dL (75-99)
[2020-11-02] MEDS: LATANOPROST 0.005% OPHTH DROPS 2.5 ML BTL BOTH EYES SCH (19:16)
[2020-11-02] MEDS: OLANZapine 5 MG TAB PO SCH (19:16)
--- NOTE | 2020-11-02 19:38 | PN ---
PROGRESS NOTE DATE OF SERVICE: 11/02/2020 REASON FOR FOLLOWUP: UTI. INTERVAL HISTORY: The patient is afebrile. The patient is feeling better, breathing comfortably. No chest pain, shortness of breath or cough. No abdominal pain. No diarrhea. No further vomiting. PHYSICAL EXAMINATION: Blood pressure is 122/68 with a pulse of 90, temperature 98.9. She is 92% on 2 L nasal cannula. GENERAL DESCRIPTION: General description is an elderly female lying in bed in no distress. RESPIRATORY SYSTEM: Unlabored breathing. Clear to auscultation anteriorly. HEART: S1, S2. Regular rate and rhythm. ABDOMEN: Soft. No tenderness. LABS: BUN of 20, creatinine 1.4. Repeat urine showing Keeley glabrata. DIAGNOSTIC IMPRESSION AND PLAN: Patient with Keeley glabrata urinary tract infection. Patient is covered with voriconazole. May consider short course and continue supportive care. Family at the bedside. Questions were answered. MMODL / IJN: [id number] /
[2020-11-02 20:30] LABS: Glucose,Whole Blood 212 mg/dL (75-99)
[2020-11-03] MEDS: ACETAMINOPHEN TAB 325 MG TAB PO PRN ×2 (01:10→22:19)
--- NOTE | 2020-11-03 07:23 | XR ---
EXAMINATION TYPE: XR chest 1V portable DATE OF EXAM: 11/03/2020 HISTORY: Shortness of breath. COMPARISON: 11/02/2020 TECHNIQUE: Single view of the chest is submitted. FINDINGS: Demonstrated are scattered senescent parenchymal change. Left greater than right layering pleural effusion with underlying atelectasis or infiltrate. The heart is stable. Hilar and mediastinal structures are within normal limits. Degenerative changes are seen of the dorsal spine. IMPRESSION: 1. Left greater than right layering pleural effusion with underlying atelectasis or infiltrate.
[2020-11-03 07:38] LABS: Glucose,Whole Blood 161 mg/dL (75-99)
[2020-11-03] MEDS: INSULIN ASPART (NovoLOG) 100 UNIT/ML VIAL SQ SCH ×4 (08:30→21:31)
[2020-11-03] MEDS: FUROSEMIDE 10 MG/ML 4 ML VIAL IV SCH ×2 (08:31→21:31)
[2020-11-03] MEDS: HEPARIN SODIUM,PORCINE/PF 5,000 UNIT/0.5 ML SYRINGE SQ SCH ×2 (08:31→17:38)
[2020-11-03] MEDS: SUCRALFATE 1 GM TAB PO SCH ×3 (08:32→17:38)
[2020-11-03] MEDS: ATORVASTATIN 10 MG TAB PO SCH (08:32)
[2020-11-03] MEDS: METOPROLOL SUCCINATE (ER) 100 MG TAB.ER.24H PO SCH (08:32)
[2020-11-03] MEDS: VORICONAZOLE 200 MG TAB PO SCH ×2 (08:32→21:32)
[2020-11-03] MEDS: PANTOPRAZOLE 40 MG TABLET PO SCH ×2 (08:32→17:38)
[2020-11-03] MEDS: CHOLESTYRAMINE (WITH SUGAR) 4 GM PACKET PO SCH ×2 (08:33→21:31)
[2020-11-03] MEDS: DONEPEZIL 5 MG TAB PO SCH (08:33)
[2020-11-03] MEDS: CHOLECALCIFEROL 25 MCG (1000 IU) TABLET PO SCH (08:33)
--- NOTE | 2020-11-03 09:33 | P.PN ---
Subjective Patient is seen in follow-up for acute kidney injury on chronic kidney disease. Creatinine 1.48 yesterday. Not a reliable historian. Blood pressure stable. Nonoliguric. On 2 L nasal cannula. On IV Lasix. Vital signs are stable. General: The patient appeared well nourished and normally developed. HEENT: Head exam is unremarkable. On nasal cannula. LUNGS: Breath sounds decreased. HEART: Tachycardic. ABDOMEN: Soft, no distention. EXTREMITITES: No edema. Objective - Vital Signs Vital signs: Vital Signs Temp 98.4 F 11/03/20 07:58 Pulse 86 11/03/20 07:58 Resp 16 11/03/20 08:00 BP 129/67 11/03/20 07:58 Pulse Ox 96 11/03/20 07:58 Intake & Output 11/02/20 11/03/20 11/03/20 18:59 06:59 18:59 Intake Total 237 Output Total 1300 600 Balance -1063 -600 Intake: Oral 237 Output: Urine 1300 600 Other: Voiding Method Indwelling Catheter Indwelling Catheter Indwelling Catheter # Bowel Movements 1 - Labs CBC & Chem 7: 10/28/20 06:44 11/02/20 04:17 Labs: Abnormal Lab Results - Last 24 Hours (Table) 11/02/20 11/02/20 11/02/20 Range/Units 12:20 17:13 20:28 POC Glucose (mg/dL) 162 H 229 H 212 H (75-99) mg/dL 11/03/20 Range/Units 07:37 POC Glucose (mg/dL) 161 H (75-99) mg/dL Assessment and Plan Plan: Assessment: 1. Acute kidney injury secondary to ATN secondary to cardiorenal syndrome. Renal function slightly worse from diuresis - creatinine 1.48 yesterday. No evidence of contrast-induced acute kidney injury. 2. Chronic kidney disease stage IIIb with baseline creatinine in the range of 1.3-1.5 secondary to diabetic kidney disease. 3. Anemia of chronic kidney disease. No active bleeding. High ferritin noted. On Aranesp. 4. Diabetes mellitus. 5. High probability of PE. No PE noted on VQ scan. 6. Acute on chronic diastolic CHF with ejection fraction of 45-50%. 7. Metabolic acidosis secondary to acute kidney injury. Resolved. 8. Volume overload. Improving with diuresis. 9. Hypomagnesemia from diuresis and poor intake. Replaced. Stable. Plan: Maintain IV Lasix. Avoid nephrotoxins. Continue to monitor renal function and urine output. Chest x-ray from yesterday still suggestive of fluid overload. Morning labs pending.
[2020-11-03 12:07] LABS: Glucose,Whole Blood 193 mg/dL (75-99)
--- NOTE | 2020-11-03 13:29 | P.PN ---
Subjective Progress Note Date: 11/03/20 Principal diagnosis: Congestive heart failure. Progress Note Date: 11/02/20 On today's evaluation of a 2020, the patient is on oxygen at 2 L pH is s till diuresing very well on Lasix and the patient is receiving Lasix 40 mg IV every 12 hours. Her fluid balance is -1.2 L over the past 24 hours and she's had a torn other 1 L negative for today. A repeat chest x-ray was done today and it showed bilateral pleural effusions and cardiomegaly. In comparison, a change or improvement in the amount of pleural effusion. As such, I may consider a thoracentesis on this patient by tomorrow if there is no further improvement. Meanwhile, the patient was found to have Keeley glabrata in her urine culture and the patient is being treated accordingly. She remains on IV Lasix. The creatinine remains stable at 1.48. She is still making excellent urine output. Her breathing is less labored compared to earlier. Progress note dated 11/03/2020. Currently, patient is resting comfortably. She was seen by my partner yesterday. She's currently on 2 L nasal cannula. She diuresing well on IV Lasix. Lab values from yesterday include a sodium 136, potassium 4.4, chlorides 101, CO2 28, anion gap 7, BUN 20, creatinine 1.48. No lab values from today as yet. Chest x-ray from today shows bilateral pleural effusions, left greater than right. Urine sampling is consistent with Keeley glabrata. Vital signs are stable including a room air saturation of 96% and a 2 L saturation 98%. Objective - Vital Signs Vital signs: Vital Signs Temp 98.4 F 11/03/20 07:58 Pulse 86 11/03/20 07:58 Resp 16 11/03/20 08:00 BP 129/67 11/03/20 07:58 Pulse Ox 96 11/03/20 07:58 Intake & Output 11/02/20 11/03/20 11/03/20 18:59 06:59 18:59 Intake Total 237 Output Total 1300 600 Balance -1063 -600 Intake: Oral 237 Output: Urine 1300 600 Other: Voiding Method Indwelling Catheter Indwelling Catheter Indwelling Catheter # Bowel Movements 1 - Exam No acute distress, oriented 3. Currently on 2 L nasal cannula. No signs of respiratory distress including audible wheezing or use of accessory muscles. HEENT examination is grossly unremarkable. Neck supple. Full range of motion. No adenopathy thyromegaly or neck vein distention. Cardiovascular examination reveals regular rhythm rate. S1-S2 normal. No S3 or S4. No discernible murmur noted. Heart sounds are distant. Heart rate 86 bpm. Lungs reveal bibasilar crackles. No wheezes or rhonchi. Breath sounds equal bilaterally. There is dullness at the bases, left greater than right. Abdomen soft bowel sounds are heard. No masses or tenderness. Extremities are intact. No cyanosis or clubbing. Minimal lower extremity edema appreciated. Skin is without rash or lesion. Neurologic examination is brief but nonfocal. - Labs CBC & Chem 7: 10/28/20 06:44 11/02/20 04:17 Labs: Abnormal Lab Results - Last 24 Hours (Table) 11/02/20 11/02/20 11/03/20 Range/Units 17:13 20:28 07:37 POC Glucose (mg/dL) 229 H 212 H 161 H (75-99) mg/dL 11/03/20 Range/Units 12:04 POC Glucose (mg/dL) 193 H (75-99) mg/dL Assessment and Plan Assessment: Acute hypoxemic respiratory failure, multifactorial, in part related to systolic CHF, and bilateral left greater than right pleural effusions High probability VQ scan, but pulmonary embolism ruled out by CT angiogram. Acute kidney injury, improved. Recent hospitalization for C. difficile colitis, and acute blood loss anemia. History of duodenal ulcer/gastritis, and pancolitis. History of hypertension. History of hyperlipidemia. Type 2 diabetes mellitus. History of CAD with previous stent placement. History of lifelong nontobacco user. Recent history of left ankle surgery. Left heel pressure ulcer. History of hypoglycemia. Urinary Keeley glabrata. Plan: Plan dated 11/03/2020. Currently, the patient seems be doing relatively well. The patient's between 0 oxygen and 2 L. Her saturations are excellent either without or with oxygen. No plans to do a thoracentesis at this time. We will continue to follow make recommendations were appropriate. Continue with the diuretics. No additional recommendations are made. Medications are reviewed. Time with Patient: Less than 30
--- NOTE | 2020-11-03 14:13 | PN ---
PROGRESS NOTE DATE OF SERVICE: 11/03/2020 REASON FOR FOLLOWUP: Catheter-associated urinary tract infection. INTERVAL HISTORY: The patient is afebrile. The patient is feeling better, breathing comfortably. Denies having any chest pain or shortness of breath or cough. No abdominal pain or diarrhea. PHYSICAL EXAMINATION: Her blood pressure is 129/67 with a pulse of 86, temperature 98.4. She is 96% on room air. GENERAL DESCRIPTION: General description is an elderly female up in a chair in no distress. RESPIRATORY SYSTEM: Unlabored breathing. Clear to auscultation anteriorly. HEART: S1, S2. Regular rate and rhythm. ABDOMEN: Soft. No tenderness. LABS: No new labs have been obtained today. DIAGNOSTIC IMPRESSION AND PLAN: Patient with Keeley glabrata catheter-associated urinary tract infection. Mack catheter has been changed. The patient is currently covered with a voriconazole; to continue for about a 5- to 7-day course of therapy and close outpatient followup. MMODL / IJN: [id number] /
[2020-11-03 16:33] LABS: African American GFR (CKD) 39.4 (60.0-200.0); Anion Gap 7.2 mmol/L (4.00-12.00); BUN/Creat Ratio 14.67 Ratio (12.00-20.00); Calcium 8.8 mg/dL (8.7-10.3); Carbon Dioxide 29.8 mmol/L (21.6-31.8); Magnesium 1.7 mg/dL (1.5-2.4); Potassium 4.3 mmol/L (3.5-5.5)
[2020-11-03 17:27] LABS: Glucose,Whole Blood 134 mg/dL (75-99)
[2020-11-03 20:59] LABS: Glucose,Whole Blood 146 mg/dL (75-99)
[2020-11-03 21:30] VITALS: RESP 16
[2020-11-03] MEDS: OLANZapine 5 MG TAB PO SCH (21:31)
[2020-11-03] MEDS: LATANOPROST 0.005% OPHTH DROPS 2.5 ML BTL BOTH EYES SCH (21:34)
[2020-11-04] MEDS: HEPARIN SODIUM,PORCINE/PF 5,000 UNIT/0.5 ML SYRINGE SQ SCH ×2 (00:43→08:50)
[2020-11-04 07:49] LABS: Glucose,Whole Blood 123 mg/dL (75-99)
[2020-11-04] MEDS: SUCRALFATE 1 GM TAB PO SCH (08:49)
[2020-11-04] MEDS: VORICONAZOLE 200 MG TAB PO SCH (08:49)
[2020-11-04] MEDS: DONEPEZIL 5 MG TAB PO SCH (08:49)
[2020-11-04] MEDS: PANTOPRAZOLE 40 MG TABLET PO SCH (08:49)
[2020-11-04] MEDS: METOPROLOL SUCCINATE (ER) 100 MG TAB.ER.24H PO SCH (08:49)
[2020-11-04] MEDS: ATORVASTATIN 10 MG TAB PO SCH (08:49)
[2020-11-04] MEDS: CHOLECALCIFEROL 25 MCG (1000 IU) TABLET PO SCH (08:49)
[2020-11-04] MEDS: CHOLESTYRAMINE (WITH SUGAR) 4 GM PACKET PO SCH (08:50)
[2020-11-04] MEDS: INSULIN ASPART (NovoLOG) 100 UNIT/ML VIAL SQ SCH (08:50)
[2020-11-04] MEDS: FUROSEMIDE 10 MG/ML 4 ML VIAL IV SCH (08:50)
[2020-11-04 11:44] LABS: Glucose,Whole Blood 213 mg/dL (75-99)
--- NOTE | 2020-11-04 11:50 | P.PN ---
Subjective Progress Note Date: 11/04/20 Principal diagnosis: Acute hypoxic respiratory failure This is a 75-year-old female with past medical history of CAD, diabetes mellitus type 2, hypertension, hyperlipidemia, recent surgery on her left ankle, recent history of UTI for which the patient completed a course of antibiotics, and subsequently patient was hospitalized with C. diff colitis. During the same admission patient developed acute GI bleeding, and she underwent EGD and colonoscopy by Dr. Bustillo on 10/22/2020 and was found to have a large duodenal ulcer, gastritis, and pancolitis.. Patient also developed an acute kidney injury related to ATN secondary to multiple loose bowel movements, GI bleeding, and poor oral intake. Patient was discharged home on Cipro and Flagyl on 10/23/2020 with visiting nurses. On 10/25/2020 patient was brought back to the emergency department by EMS for complaints of shortness of breath, decreased level of responsiveness, and increased swelling in her bilateral lower extremities. Of note patient did have lower extremity Dopplers during her previous admission on 10/23/2020 which showed no evidence of DVT. Chest x-ray on admission shows pulmonary vascular congestion, and moderate-sized bilateral pleural effusions. Patient's family denied patient having any fever, they do report mild cough with no phlegm production, no hemoptysis, no complaints of chest pain. They also report patient being very weak and tired. On admission her white blood cell count is 11.8, hemoglobin is 10.5, platelet count is 842, INR is 1.0, sodium is 134, potassium is 4.9, chloride is 107, CO2 was 18, BUN was 19, creatinine was 1.49, local was 34, troponin was negative at less than 0.012, proBNP was 4070. Urinalysis showed possibility of urinary tract infection, urine culture showed Keeley species. Exhalation is already on a combination of ciprofloxacin and Flagyl. Cardiology saw the patient in consultation for possibility of acute CHF, echocardiogram was completed showing moderate concentric LVH, mildly impaired left ventricle systolic function with an EF of 45-50%, small generalized pericardial effusion. Patient was diuresed, and her renal function slightly worsened, and on today's labs creatinine is up to 1.7. Patient still requiring oxygen, currently at 3 L, with a pulse ox of 97%, remains persistently hypoxemic, follow-up chest x-ray today was completed showing bilateral pleural effusions with cardiomegaly and bibasilar infiltrates, and diffuse interstitial pattern. VQ scan was completed showing a wedge-shaped defect in the left lower lobe laterally, and another smaller wedge-shaped defect involving the right midlung zone, and the findings demonstrated high probability for pulmonary embolism. We were consulted in regards to abnormal VQ scan, and persistent hypoxia The patient is seen today 10/29/2020 in follow-up on the regular medical floor. She is currently resting comfortably in bed. Awake and alert in no acute distress. She is maintaining O2 saturations in the mid 90s on 2 L/m per nasal cannula. Afebrile. Tachycardic. CT angiogram ruled out pulmonary embolism. There is moderate pericardial effusion. Moderate bilateral pleural effusions with surrounding atelectasis. Cardiomegaly. Coronary artery calcifications. Urine culture positive for Keeley species. Blood glucose 204. Other labs are pending. She is currently on Cipro and Flagyl. Been initiated on bronchodilators. Heparin for DVT prophylaxis. She is seen today 10/30/2020 in follow-up on the regular medical floor. She remains awake and alert in no acute distress. Resting fairly comfortably in bed. Maintaining O2 saturations in the 90s on 4 L/m per nasal cannula. She's afebrile. Her culture positive for Keeley only. Sodium 138. Potassium 4.5. Creatinine 1.4. Remains on IV diuretics, bronchodilators. Worsening shortness of breath, cough or congestion. The patient is seen today 10/31/2020 in follow-up on the regular medical floor. She is currently resting comfortably in bed. Awake and alert in no acute distress. Breathing a bit easier today compared to yesterday. Maintaining good O2 saturations in the 90s on room air. X-ray continues to reveal basilar effusions left greater than right. Sodium 136. Potassium 4.9. BUN 19. Creatinine 1.4. She remains on Lasix 40 mg IV every 12 hours. Plan is -1.5 mL balance. 69.1 kg. The patient is seen today 11/01/2020 in follow-up on the regular medical floor. She is awake and alert in no acute distress. Actually laying flat in bed. On room air. Maintaining good O2 saturations in the 90s. No worsening shortness of breath, cough or congestion. She is diuresing well. Remains in a negative balance. Sodium 136. Potassium 4.7. Creatinine 1.29. Glucose 210. Remains on bronchodilators, IV diuretics, heparin for DVT prophylaxis. The patient is seen today 11/04/2020 follow-up on the regular medical floor. She is currently sitting up in a chair at the bedside. Awake and alert in no acute distress. Maintaining O2 saturations in the 90s on room air. Afebrile. Remains on IV diuretics, bronchodilators, voriconazole. Diminished diabetes. Remains in a negative balance. Objective - Vital Signs Vital signs: Vital Signs Temp 98.4 F 11/04/20 08:00 Pulse 81 11/04/20 08:00 Resp 16 11/04/20 08:00 BP 134/71 11/04/20 08:00 Pulse Ox 97 11/04/20 08:42 Intake & Output 11/03/20 11/04/20 11/04/20 18:59 06:59 18:59 Intake Total 50 Output Total 525 700 Balance -475 -700 Intake: Oral 50 Output: Urine 525 700 Other: Voiding Method Indwelling Catheter Indwelling Catheter Indwelling Catheter # Bowel Movements 2 - Exam GENERAL EXAM: Alert, pleasant 75-year-old female patient, on room air, fairly comfortable in no apparent distress. HEAD: Normocephalic. EYES: Normal reaction of pupils, equal size. NOSE: Clear with pink turbinates. THROAT: No erythema or exudates. NECK: No masses, no JVD. CHEST: No chest wall deformity. LUNGS: Equal air entry with crackles in the bilateral bases, diminished. CVS: S1 and S2 normal with no audible murmur, regular rhythm. ABDOMEN: No hepatosplenomegaly, normal bowel sounds, no guarding or rigidity. SPINE: No scoliosis or deformity SKIN: No rashes CENTRAL NERVOUS SYSTEM: No focal deficits, tone is normal in all 4 extremities. EXTREMITIES: There is no peripheral edema. No clubbing, no cyanosis. Peripheral pulses are intact. - Labs CBC & Chem 7: 10/28/20 06:44 11/03/20 05:18 Labs: Abnormal Lab Results - Last 24 Hours (Table) 11/03/20 11/03/20 11/03/20 Range/Units 05:18 12:04 17:25 Est GFR (CKD-EPI)AfAm 39.4 L (60.0-200.0) Est GFR (CKD-EPI)NonAf 34.0 L (60.0-200.0) Glucose 133 H (70-110) mg/dL POC Glucose (mg/dL) 193 H 134 H (75-99) mg/dL 11/03/20 11/04/20 11/04/20 Range/Units 20:58 07:48 11:42 Est GFR (CKD-EPI)AfAm (60.0-200.0) Est GFR (CKD-EPI)NonAf (60.0-200.0) Glucose (70-110) mg/dL POC Glucose (mg/dL) 146 H 123 H 213 H (75-99) mg/dL Assessment and Plan Assessment: 1 Acute hypoxic respiratory failure related to acute CHF mildly impaired EF of 45-50%, bilateral pleural effusions. Recovered and the patient is on room air. Continued on IV diuretics. 2 CT angiogram ruled out pulmonary embolism 3 Acute kidney injury improving current creatinine 1.5 4 Recent hospitalization for C. diff colitis, acute GI blood loss anemia, and patient was found to have a large duodenal ulcer, gastritis, and pancolitis 5 Acute GI blood loss anemia 6 History of hypertension 7 Hyperlipidemia 8 Diabetes mellitus type 2 9 Coronary artery disease with previous stent placement 10 Lifetime nonsmoker, no history of chronic lung disease 11 Recent history of left ankle surgery in September 2020 at [facility] 12 Left heel pressure ulcer wound 13 Episodes of hypoglycemia, likely related to oral hypoglycemic medications in the setting of acute kidney injury. Currently Actos and Amaryl are both on hold Plan: The patient was seen and evaluated by Dr. Shin Cleared for discharge from the pulmonary standpoint I, the cosigning physician, performed a history & physical examination of the patient. Lungs sounds crackles in the bilateral posterior bases, diminished. Maintaining good O2 saturations in the 90s on room air. I discussed the assessment and plan of care with my nurse practitioner, Saskia Padilla. I attest to the above note as dictated by her.
[2020-11-04 14:31] VITALS: BP 134/81; PULSE 87; TEMP 98.2
--- NOTE | 2020-11-04 14:38 | PN ---
PROGRESS NOTE DATE OF SERVICE: 11/04/2020 REASON FOR FOLLOWUP: Catheter-associated urinary tract infection. INTERVAL HISTORY: The patient is afebrile. The patient is currently breathing comfortably. Denies having any chest pain or shortness of breath or cough. No further nausea, vomiting. No abdominal pain or diarrhea. PHYSICAL EXAMINATION: Blood pressure 134/71 with a pulse of 81, temperature 98.4. She is 98% on room air. GENERAL DESCRIPTION: General description is an elderly female up in the chair in no distress. RESPIRATORY SYSTEM: Unlabored breathing. Decreased breath sounds at the bases. No wheeze. HEART: S1, S2. Regular rate and rhythm. ABDOMEN: Soft. No tenderness. LABS: No new labs have been obtained today. DIAGNOSTIC IMPRESSION AND PLAN: Patient with catheter-associated urinary tract infection. Urine is showing Keeley glabrata. The patient is currently on vfend, to continue for about a week to finish her course of therapy. Continue with supportive care. MMODL / IJN: [id number] / MTDD
--- NOTE | 2020-11-04 19:41 | PN ---
PROGRESS NOTE Patient is seen for followup for acute kidney injury, volume overload and cardiorenal syndrome. She is currently maintained on IV Lasix. Serum creatinine down to 1.5 yesterday. Staying fairly stable for the last couple of days. There are plans on discharge. Today patient is sitting on a bedside chair. She is comfortable, denies any chest pains or shortness of breath. On examination today, blood pressure was 134/71, heart rate of 87 per minute. She is afebrile. EXAMINATION OF THE HEART: S1 and S2. EXAMINATION OF LUNGS: Bilateral breath sounds are heard. ABDOMEN: Soft, nontender. LOWER EXTREMITIES: Examination of lower extremities shows no significant edema. SALVAGE DETERMINER EXAM: Grossly intact. Labs from 11/03 show sodium 140, potassium 4.3, chloride 103. CO2 is 29.8, BUN 22, creatinine 1.5 mg/dL. ASSESSMENT: 1. Acute kidney injury, cardiorenal, currently stable. May switch to oral Lasix. 2. Chronic kidney disease, stage IIIB. Baseline creatinine 1.3 to 1.5 secondary to diabetic kidney disease. 3. Anemia of chronic disease. No active bleeding noted. Maintained on Aranesp. 4. Acute on chronic diastolic congestive heart failure with ejection fraction 45% to 50%. 5. Metabolic acidosis associated with acute kidney injury, now resolved. 6. Volume overload, improving with diuresis. PLAN: May switch to oral Lasix. Monitor volume status closely as outpatient. Will see patient for followup in about one week's time. She will likely need adjustment of her diuretics. MMODL / IJN: [id number] /
--- NOTE | 2020-11-06 09:03 | P.DS ---
Providers Date of admission: 10/28/20 10:09 Expected date of discharge: 11/04/20 Attending physician: Hoda Dang Consults: 10/26/20 00:15 Consult Physician Routine Consulting Provider: Laci Rocha Consult Reason/Comments: chf Do you want consulting provider notified?: Yes 10/26/20 18:19 Consult Physician Routine Consulting Provider: Gail Ordonez Consult Reason/Comments: Recent C.diff colitis Do you want consulting provider notified?: Yes 10/28/20 14:21 Consult Physician Urgent Consulting Provider: Nacho Chambers Consult Reason/Comments: shortness of breath, requiring oxygen/CHF exacerbation Do you want consulting provider notified?: Yes 10/28/20 17:22 Consult Physician Routine Consulting Provider: Mikael Wiseman Consult Reason/Comments: CADE, NEED CLEARANCE FOR CTA CHEST TO RULE OUT PE Do you want consulting provider notified?: Yes Primary care physician: Anand Flaherty MD Hospital Course: Final diagnosis Shortness of breath could be secondary to CHF exacerbation vs bilateral pleural effusion vs hypoalbuminemia Acute on chronic Diastolic congestive heart failure, acute exacerbation Shortness of breath possibly secondary to pulmonary embolism as noted on VQ scan or possibly secondary to bilateral pleural effusions Pulmonary embolism ruled out on CTA Bilateral pleural effusion Acute kidney injury most likely acute tubular necrosis and possible cardiorenal syndrome Hypoglycemia Recent C. diff colitis Recent colon polyp removal History of coronary artery disease Diabetes mellitus2, uncontrolled with hyperglycemia Dyslipidemia Hypertension Recent history of left ankle fracture Stage I sacral decubitus ulcer Stage III CKD Moderate protein calorie malnutrition GI prophylaxis DVT prophylaxis Full code Discharge disposition Patient is being discharged in a stable condition with guarded prognosis to home. Patient will follow-up with Dr. Anand Flaherty in the outpatient setting upon discharge. A and is also to follow-up with cardiology Dr. Taylor, nephrology, infectious disease in the outpatient setting. Patient will continue on oral Diflucan for 5 days to complete the course and will also continue with Lasix 40 mg twice daily per nephrology recommendations. Total time taken is greater than 35 minutes. Hospital course Ms. Sofia is a 75-year-old with a past medical history of coronary artery disease, diabetes mellitus, hypertension, hyperlipidemia, left ankle surgery done recently, recent C. diff colitis brought in by her daughter and family secondary to difficulty in breathing. Most of the history is given by her daughter and son-in-law who were present at the bedside as the patient does not speak Spanish. They mentioned that during her last hospital stay patient gained significant amount of weight, possibly due to fluid retention and was having mild difficulty in breathing. But last night she was having more shortness of breath that prompted them to bring her to the hospital. She was recently admitted in the hospital from 10/09/2020 2 10/23/2020. Patient has C. diff colitis and was discharged on by mouth antibiotics. During that previous admission patient had acute kidney injury as well. They denied having any fevers chills or rigors. No diarrhea, abdominal pain or nausea. No dysuria or hematuria. They mentioned that she has stage I sacral decubitus ulcer. She also recently had left ankle surgery done, was told not to bear weight on the left lower extremity. No complaints of chest pain or palpitations. No loss of consciousness, headache or visual disturbances. No weakness of the extremities, has generalized weakness. In the ED at the time of admission heart rate 98, respiratory 20, blood pressure 1/31 a 65, saturating at 91% on room air. She had chest x-ray done showing mild chronic congestive heart failure with increased pleural effusion compared to old exam. Reviewing her labs white count of 8.9, hemoglobin 10.4, platelets 504. Sodium 135, potassium 4.7, chloride 108, bicarb 20, BUN 19, creatinine 1.53. Urine analysis positive for moderate leukocyte esterase, 14 WBCs. FOBT negative. EKG showing low voltage with sinus tachycardia. Patient also had significant hypoglycemia with a glucose as low as 34. 10/28/2020 Patient is seen in follow-up this morning with cardiology following. Patient continues to be lethargic and not eating very much. Patient also continues to have some shortness of breath and diminished breath sounds noted bilaterally and patient continues on 3 L of oxygen via nasal cannula with continued shortness of breath and does not normally wear oxygen in the outpatient setting. Given patient's worsening kidney functions will order VQ scan and consult pulmonary. Patient continues on heparin subcu for now and will discuss with pulmonary about anticoagulation. Will discontinue Lasix for now and continue a gentle IV hydration. 10/29/2020 Patient is seen and evaluated in follow-up this morning with family at the [facility] and multiple medical consultations following. Patient has been seen and evaluated by nephrology for renal clearance for CTA as creatinine was elevated and maintained on gentle IV hydration and Lasix was discontinued. Patient cleared for CTA to rule out possible pulmonary embolism as noted on VQ scan. CTA was negative for pulmonary embolism and noted to have continued large bilateral pleural effusions. Pulmonary is following and will be given a dose of Lasix IV push after CTA and required IV hydration. Continues to be short of breath when currently maintained on 3-4 L of oxygen via nasal cannula. Patient continues to not eat very much and discussed with family at the bedside who states this is chronic and she only eats at home. She does eat the food that they bring in. Patient continues to be extremely weak and have discussed possible rehab with family and they are adamant about her returning home and does have home care in the outpatient setting. Will repeat a.m. labs and continue to monitor closely. 10/30/2020 Patient is seen in follow-up this morning continues to be short of breath currently on 4 L of oxygen and maintaining oxygen saturations of 90-93%. Pulmonary following closely along with cardiology, nephrology, and infectious disease. Patient will continue on IV Lasix she continues to have bilateral pleural effusions with possibility of thoracentesis if no improvement with diuresis. Repeat chest x-ray in the morning to monitor closely. Magnesium today is 1.6 and will replace per protocol and repeat a.m. labs. Odium is 138 with a potassium of 4.5 and current creatinine is 1.4. Blood sugars elevated and will add sliding scale and monitor closely with Accu-Cheks before meals and at bedtime. 10/31/2020 Patient is seen and evaluated this morning currently sitting up in the chair on 2 L of oxygen. Patient continues on IV Lasix with multiple medical consultations following. Diuresing well and kidney functions stable. Patient urinalysis showing renato non albicans and awaiting repeat culture to finalize. Chronic indwelling turner catheter changed. Infectious disease following. Patient with low grade temp. Repeat chest xray shows continued effusions. Pulmonary is following. 11/04/2020 She was seen and evaluated in follow-up with family at the bedside and currently resting comfortably on room air. Patient not qualifying for home oxygen and will continue on oral Lasix 40 mg twice daily with recommended repeat labs closely in the outpatient setting along with nephrology follow-up. Patient also had some renato glabrata noted in the urine and unable to afford the medications as they're over $900 and will continue with Diflucan and recommend repeat urinalysis and close outpatient follow-up. Patient will follow-up with infectious disease Dr. Ordonez in the outpatient setting. Also need to follow-up with cardiology along with her primary care provider upon discharge. Patient also having some urinary retention requiring indwelling Turner catheter and will continue with on discharge until follow-up with nephrology. Recommend rehab in the home for strengthening mobility. Recommend continue encouraging oral intake as patient's intake is very poor. Family states this is chronic. Patient is weak requiring assistance and family has 24/7 care available for her and will be taking her home on discharge. Currently no reports of chest pain, shortness of breath, or palpitations. Patient is afebrile. No reports of nausea or vomiting and patient is tolerating diet. Patient will be discharged home today. Guarded prognosis. On exam vital signs are stable. Cardio S1, S2 are muffled. Respiratory system shows diminished breath sounds at the bases with no wheezing or rhonchi noted. Abdomen is soft and nontender. Nervous system shows no focal deficits. Please refer to medication reconciliation sheet for a list of medications. Patient Condition at Discharge: Fair Plan - Discharge Summary Discharge Rx Participant: Yes New Discharge Prescriptions: New Darbepoetin Aba [Aranesp] 40 mcg SQ Q7D each Furosemide [Lasix] 40 mg PO BID 30 Days #60 tablet Fluconazole [Diflucan] 200 mg PO DAILY 5 Days #10 tab Continue Latanoprost/Pf [Latanoprost 0.005% Eye Drop] 1 drop BOTH EYES HS Collagenase [Santyl] 1 applic TOPICAL HS OLANZapine [ZyPREXA] 5 mg PO DAILY Donepezil [Aricept] 5 mg PO DAILY Cholecalciferol [Vitamin D3 (25 Mcg = 1000 Iu)] 25 mcg PO DAILY Sucralfate [Carafate] 1 gm PO AC-TID #90 tab Pantoprazole Sodium [Protonix] 40 mg PO BID 30 Days #60 tablet. Simvastatin [Zocor] 20 mg PO DAILY Cholestyramine (with Sugar) [Questran Packet] 4 gm PO BID@1000,2100 5 Days #10 packet Metoprolol Succinate (ER) [Toprol XL] 200 mg PO DAILY #60 tab.er.24h Glimepiride [Amaryl] 8 mg PO AC-BRKFST Pioglitazone [Actos] 30 mg PO DAILY Acetaminophen Tab [Tylenol] 650 mg PO Q6H PRN PRN Reason: Mild Pain Or Fever > 100.5 Discontinued Clopidogrel [Plavix] 75 mg PO DAILY Ciprofloxacin HCl [Cipro] 500 mg PO Q12H 7 Days #14 tab Triamterene-Hctz 37.5-25Mg [Dyazide 37.5-25 Capsule] 1 cap PO DAILY metroNIDAZOLE [Flagyl] 500 mg PO TID 7 Days #21 tab Sodium Bicarbonate Tab 650 mg PO BID 30 Days #60 tab Discharge Medication List Collagenase [Santyl] 1 applic TOPICAL HS 09/14/20 [History] Donepezil [Aricept] 5 mg PO DAILY 09/14/20 [History] Latanoprost/Pf [Latanoprost 0.005% Eye Drop] 1 drop BOTH EYES HS 09/14/20 [History] OLANZapine [ZyPREXA] 5 mg PO DAILY 09/14/20 [History] Simvastatin [Zocor] 20 mg PO DAILY 09/14/20 [History] Cholecalciferol [Vitamin D3 (25 Mcg = 1000 Iu)] 25 mcg PO DAILY 10/09/20 [History] Cholestyramine (with Sugar) [Questran Packet] 4 gm PO BID@1000,2100 5 Days #10 packet 10/23/20 [Rx] Metoprolol Succinate (ER) [Toprol XL] 200 mg PO DAILY #60 tab.er.24h 10/23/20 [Rx] Pantoprazole Sodium [Protonix] 40 mg PO BID 30 Days #60 tablet.dr 10/23/20 [Rx] Sucralfate [Carafate] 1 gm PO AC-TID #90 tab 10/23/20 [Rx] Acetaminophen Tab [Tylenol] 650 mg PO Q6H PRN 10/26/20 [History] Glimepiride [Amaryl] 8 mg PO AC-BRKFST 10/26/20 [History] Pioglitazone [Actos] 30 mg PO DAILY 10/26/20 [History] Darbepoetin Aba [Aranesp] 40 mcg SQ Q7D each 11/04/20 [Rx] Fluconazole [Diflucan] 200 mg PO DAILY 5 Days #10 tab 11/04/20 [Rx] Furosemide [Lasix] 40 mg PO BID 30 Days #60 tablet 11/04/20 [Rx] Follow up Appointment(s)/Referral(s): Ruddy Burgos MD [STAFF PHYSICIAN] - 11/11/20 9:30 am (Appointment with Dr. Carreon) Di Garcia MD [STAFF PHYSICIAN] - 11/18/20 9:20 am [facility], [NON-STAFF] - 1 Week Anand Flaherty MD [Primary Care Provider] - 1-2 days (OFFICE WILL CALL YOU WITH APPOINTMENT DATE AND TIME. THEY ARE AWARE TO GET ANOTHER URINALYSIS AT THAT OFFICE APPOINTMENT.) Gail Ordonez MD [STAFF PHYSICIAN] - 11/18/20 2:30 pm Ambulatory/Diagnostic Orders: Complete Blood Count w/diff [LAB.AMB] Time Frame: 3 Days, Location: None Selected Patient Instructions/Handouts: Heart Failure (DC), Turner Catheter Placement and Care (DC), Fluid Restriction (DC), Anemia (DC), Level 3 National Dysphagia Diet (DC), Type 2 Diabetes Management for Adults (DC) Activity/Diet/Wound Care/Special Instructions: Activity Limited until follow-up follow up with primary care provider upon discharge Follow-up with cardiology outpatient Continue to hold Plavix until discussing with primary care provider and cardiology as she recently was treated for GI bleed reCommend repeat urinalysis at follow-up appointment Follow-up with nephrology outpatient Continue with indwelling Turner catheter for now and will need outpatient follow- up Recommend repeat labs in in 3 days days to monitor kidney functions and electrolytes-script given to patient Continue to encourage oral intake of dysphasia 3 chopped diet along with 40-45 ounces daily of fluid restrictions Continue with local wound care of the left lower extremity by applying honey and wrapped with dressing Elevate lower extremities while at rest Continue with local wound care and follow-up at the wound center outpatient Monitor blood sugars closely Aranesp 40 MCG subcutaneously to be given at nephrology appointment. Discharge Disposition: HOME WITH HOME HEALTH SERVICES
== END 2020-11-04 16:01 | disposition home health service (06) | DRG 291 ==
LOC: EC 23:02 → 6NMEDSUR 10-26 00:14 → OBSVTOIN 10-28 10:09
PROVIDERS: ADMIT Hospitalist; ATTEND Hospitalist
DX: I50.43 Acute on chronic combined systolic (congestive) and diastolic (congestive) heart failure (principal); N17.0 Acute kidney failure with tubular necrosis; J96.01 Acute respiratory failure with hypoxia; D62 Acute posthemorrhagic anemia; E44.0 Moderate protein-calorie malnutrition; E87.2 Acidosis; I13.0 Hypertensive heart and chronic kidney disease with heart failure and stage 1 through stage 4 chronic kidney disease, or unspecified chronic kidney disease; I31.3 Pericardial effusion (noninflammatory); J98.11 Atelectasis; B37.49 Other urogenital candidiasis; T83.518A Infection and inflammatory reaction due to other urinary catheter, initial encounter; I25.10 Atherosclerotic heart disease of native coronary artery without angina pectoris; D63.1 Anemia in chronic kidney disease; E11.22 Type 2 diabetes mellitus with diabetic chronic kidney disease; E11.649 Type 2 diabetes mellitus with hypoglycemia without coma; E11.65 Type 2 diabetes mellitus with hyperglycemia; E78.5 Hyperlipidemia, unspecified; E83.42 Hypomagnesemia; Z95.5 Presence of coronary angioplasty implant and graft; Z87.440 Personal history of urinary (tract) infections; Z87.19 Personal history of other diseases of the digestive system; Z87.11 Personal history of peptic ulcer disease; Z79.899 Other long term (current) drug therapy; Z79.4 Long term (current) use of insulin; Z79.02 Long term (current) use of antithrombotics/antiplatelets; N18.32 Chronic kidney disease, stage 3b; F03.90 Unspecified dementia, unspecified severity, without behavioral disturbance, psychotic disturbance, mood disturbance, and anxiety; K26.9 Duodenal ulcer, unspecified as acute or chronic, without hemorrhage or perforation; K29.70 Gastritis, unspecified, without bleeding; Y84.6 Urinary catheterization as the cause of abnormal reaction of the patient, or of later complication, without mention of misadventure at the time of the procedure
CPT/HCPCS: 36415; 71045; 71046; 71275; 78580; 80048; 80053; 81001; 82272; 82550; 82728; 83540; 83550; 83605; 83735; 83880; 84100; 84443; 84484; 85025; 85379; 85610; 85730; 87086; 87635; 93005; 93308; 93970; 94640; 94760; 96361; 96374; 99291

== ENCOUNTER 2020-11-12 10:43 | Inpatient (IN) | payer MEDICARE ==
[2020-11-12] MEDS ORDERED: ACETAMINOPHEN TAB 500 MG TAB PO STA (10:56)
--- NOTE | 2020-11-12 11:01 | ED ---
General Adult HPI - General Chief complaint: Weakness Stated complaint: Weakness Time Seen by Provider: 11/12/20 10:50 Source: patient, EMS, RN notes reviewed Mode of arrival: EMS Limitations: language barrier, altered mental status - History of Present Illness Initial comments: Patient is a pleasant 75-year-old female presenting to the emergency Department with complaints of general weakness. Symptoms have been present and progressive over the past few days. Patient is having fevers at home. Patient is having some diarrhea. Patient is a poor historian and provides little history. - Related Data Home Medications Medication Instructions Recorded Confirmed Collagenase [Santyl] 1 applic TOPICAL HS 09/14/20 11/12/20 Donepezil [Aricept] 5 mg PO DAILY 09/14/20 11/12/20 Latanoprost/Pf [Latanoprost 0.005% 1 drop BOTH EYES HS 09/14/20 11/12/20 Eye Drop] OLANZapine [ZyPREXA] 5 mg PO DAILY 09/14/20 11/12/20 Simvastatin [Zocor] 20 mg PO DAILY 09/14/20 11/12/20 Cholecalciferol [Vitamin D3 (25 25 mcg PO DAILY 10/09/20 11/12/20 Mcg = 1000 Iu)] Acetaminophen Tab [Tylenol] 650 mg PO Q6H PRN 10/26/20 11/12/20 Glimepiride [Amaryl] 8 mg PO AC-BRKFST 10/26/20 11/12/20 Pioglitazone [Actos] 30 mg PO DAILY 10/26/20 11/12/20 Darbepoetin Aba [Aranesp] 40 mcg SQ Q7D 11/12/20 11/12/20 Furosemide [Lasix] 40 mg PO DIRECTED 11/12/20 11/12/20 Previous Rx's Medication Instructions Recorded Metoprolol Succinate (ER) [Toprol 200 mg PO DAILY #60 tab.er.24h 10/23/20 XL] Pantoprazole Sodium [Protonix] 40 mg PO BID 30 Days #60 tablet.dr 10/23/20 Sucralfate [Carafate] 1 gm PO AC-TID #90 tab 10/23/20 Allergies Allergy/AdvReac Type Severity Reaction Status Date / Time No Known Allergies Allergy Verified 11/12/20 12:02 Review of Systems ROS Statement: Those systems with pertinent positive or pertinent negative responses have been documented in the HPI. ROS Other: All systems not noted in ROS Statement are negative. Constitutional: Reports: fever Eyes: Denies: eye pain ENT: Denies: ear pain Respiratory: Denies: cough Cardiovascular: Denies: chest pain Endocrine: Reports: fatigue Gastrointestinal: Reports: diarrhea. Denies: abdominal pain, vomiting Genitourinary: Denies: urgency Musculoskeletal: Denies: back pain Skin: Denies: rash Neurological: Reports: as per HPI. Denies: headache Past Medical History Past Medical History: Coronary Artery Disease (CAD), Diabetes Mellitus, Hyperlipidemia, Hypertension History of Any Multi-Drug Resistant Organisms: None Reported Past Surgical History: Cholecystectomy, Heart Catheterization With Stent, Orthopedic Surgery Additional Past Surgical History / Comment(s): hip surgery, cataract sx, left ankle surgery 2020 Past Anesthesia/Blood Transfusion Reactions: No Reported Reaction Date of Last Stent Placement:: 2000 Past Psychological History: No Psychological Hx Reported Smoking Status: Never smoker Past Alcohol Use History: None Reported Past Drug Use History: None Reported General Exam Limitations: language barrier, altered mental status General appearance: alert, in no apparent distress Head exam: Present: atraumatic, normocephalic Eye exam: Present: normal appearance, PERRL, EOMI ENT exam: Present: normal oropharynx Neck exam: Present: normal inspection. Absent: tenderness, meningismus Respiratory exam: Present: normal lung sounds bilaterally Cardiovascular Exam: Present: tachycardia GI/Abdominal exam: Present: soft. Absent: distended, tenderness, guarding, rebound, rigid Extremities exam: Present: normal inspection Neurological exam: Present: alert, CN II-XII intact. Absent: motor sensory deficit Expanded Neurological exam: Present: protecting the airway Patient oriented to: Present: person, place. Absent: time Cranial nerves: EOM's Intact: Normal Sensory exam: Upper Extremity Light Touch: Normal, Lower Extremity Light Touch: Normal Motor strength exam: RUE: 4, LUE: 4, RLE: 4, LLE: 4 Eye Response: (4) open spontaneously Motor Response: (6) obeys commands Verbal Response: (4) confused conversation Psychiatric exam: Present: normal affect, normal mood Skin exam: Present: other (Stage II ulcer left heel without surrounding erythema or warmth. Size is approximately less than 2 cm) Course Vital Signs 11/12/20 11/12/20 10:45 13:54 Temperature 102.9 F H 100.2 F H Pulse Rate 148 H 116 H Respiratory 18 18 Rate Blood Pressure 119/57 104/53 O2 Sat by Pulse 95 94 L Oximetry - Reevaluation(s) Reevaluation #1: 11/12/20 14:00 Patient does meet sepsis criteria diagnosed at 1400. Blood culture and lactic acid have been ordered. IV antibiotics will be ordered. Patient will also receive oral Flagyl for C. diff. EKG Findings - EKG Comments: EKG Findings:: Sinus tachycardia with sinus arrhythmia rate 142. Short MI of 80. QRS 90. QT 302. QTC 464. Normal axis. Lateral ST depression. Normal QRS. Medical Decision Making - Medical Decision Making Patient reevaluated. Heart rate improved to 120. Case discussed with Dr. Stockton, who will admit covering hospital call. Case was earlier discussed with Dr. faulkner secondary to recent admission however he would defer admission to city call. - Lab Data Result diagrams: 11/12/20 11:52 11/12/20 11:52 Lab Results 11/12/20 11/12/20 11/12/20 Range/Units 11:50 11:52 11:52 WBC 13.9 H (3.8-10.6) k/uL RBC 3.76 L (3.80-5.40) m/uL Hgb 11.3 L (11.4-16.0) gm/dL Hct 35.2 (34.0-46.0) % MCV 93.6 (80.0-100.0) fL MCH 30.0 (25.0-35.0) pg MCHC 32.1 (31.0-37.0) g/dL RDW 14.7 (11.5-15.5) % Plt Count 496 H (150-450) k/uL MPV 8.0 Neutrophils % 90 % Lymphocytes % 4 % Monocytes % 5 % Eosinophils % 0 % Basophils % 0 % Neutrophils # 12.5 H (1.3-7.7) k/uL Lymphocytes # 0.5 L (1.0-4.8) k/uL Monocytes # 0.7 (0-1.0) k/uL Eosinophils # 0.0 (0-0.7) k/uL Basophils # 0.0 (0-0.2) k/uL PT 11.3 (9.0-12.0) sec INR 1.1 (<1.2) APTT 24.7 (22.0-30.0) sec Sodium (137-145) mmol/L Potassium (3.5-5.1) mmol/L Chloride (98-107) mmol/L Carbon Dioxide (22-30) mmol/L Anion Gap mmol/L BUN (7-17) mg/dL Creatinine (0.52-1.04) mg/dL Est GFR (CKD-EPI)AfAm (>60 ml/min/1.73 sqM) Est GFR (CKD-EPI)NonAf (>60 ml/min/1.73 sqM) Glucose (74-99) mg/dL Plasma Lactic Acid Lemuel (0.7-2.0) mmol/L Calcium (8.4-10.2) mg/dL Total Bilirubin (0.2-1.3) mg/dL AST (14-36) U/L ALT (4-34) U/L Alkaline Phosphatase (38-126) U/L Troponin I (0.000-0.034) ng/mL Total Protein (6.3-8.2) g/dL Albumin (3.5-5.0) g/dL Urine Color Urine Appearance (Clear) Urine pH (5.0-8.0) Ur Specific [place] (1.001-1.035) Urine Protein (Negative) Urine Glucose (UA) (Negative) Urine Ketones (Negative) Urine Blood (Negative) Urine Nitrite (Negative) Urine Bilirubin (Negative) Urine Urobilinogen (<2.0) mg/dL Ur Leukocyte Esterase (Negative) Urine WBC (0-5) /hpf Urine WBC Clumps (None) /hpf Ur Squamous Epith Cells (0-4) /hpf Urine Bacteria (None) /hpf C. difficile (EIA) Intrp Positive A (Negative) Coronavirus (PCR) (Not Detectd) 11/12/20 11/12/20 11/12/20 Range/Units 11:52 11:52 11:52 WBC (3.8-10.6) k/uL RBC (3.80-5.40) m/uL Hgb (11.4-16.0) gm/dL Hct (34.0-46.0) % MCV (80.0-100.0) fL MCH (25.0-35.0) pg MCHC (31.0-37.0) g/dL RDW (11.5-15.5) % Plt Count (150-450) k/uL MPV Neutrophils % % Lymphocytes % % Monocytes % % Eosinophils % % Basophils % % Neutrophils # (1.3-7.7) k/uL Lymphocytes # (1.0-4.8) k/uL Monocytes # (0-1.0) k/uL Eosinophils # (0-0.7) k/uL Basophils # (0-0.2) k/uL PT (9.0-12.0) sec INR (<1.2) APTT (22.0-30.0) sec Sodium 134 L (137-145) mmol/L Potassium 4.5 (3.5-5.1) mmol/L Chloride 98 (98-107) mmol/L Carbon Dioxide 23 (22-30) mmol/L Anion Gap 13 mmol/L BUN 37 H (7-17) mg/dL Creatinine 1.79 H (0.52-1.04) mg/dL Est GFR (CKD-EPI)AfAm 32 (>60 ml/min/1.73 sqM) Est GFR (CKD-EPI)NonAf 28 (>60 ml/min/1.73 sqM) Glucose 210 H (74-99) mg/dL Plasma Lactic Acid Lemuel 2.5 H* (0.7-2.0) mmol/L Calcium 9.7 (8.4-10.2) mg/dL Total Bilirubin 0.5 (0.2-1.3) mg/dL AST 24 (14-36) U/L ALT 9 (4-34) U/L Alkaline Phosphatase 87 (38-126) U/L Troponin I (0.000-0.034) ng/mL Total Protein 6.7 (6.3-8.2) g/dL Albumin 3.2 L (3.5-5.0) g/dL Urine Color Urine Appearance (Clear) Urine pH (5.0-8.0) Ur Specific [place] (1.001-1.035) Urine Protein (Negative) Urine Glucose (UA) (Negative) Urine Ketones (Negative) Urine Blood (Negative) Urine Nitrite (Negative) Urine Bilirubin (Negative) Urine Urobilinogen (<2.0) mg/dL Ur Leukocyte Esterase (Negative) Urine WBC (0-5) /hpf Urine WBC Clumps (None) /hpf Ur Squamous Epith Cells (0-4) /hpf Urine Bacteria (None) /hpf C. difficile (EIA) Intrp (Negative) Coronavirus (PCR) Not Detected (Not Detectd) 11/12/20 11/12/20 Range/Units 11:52 13:30 WBC (3.8-10.6) k/uL RBC (3.80-5.40) m/uL Hgb (11.4-16.0) gm/dL Hct (34.0-46.0) % MCV (80.0-100.0) fL MCH (25.0-35.0) pg MCHC (31.0-37.0) g/dL RDW (11.5-15.5) % Plt Count (150-450) k/uL MPV Neutrophils % % Lymphocytes % % Monocytes % % Eosinophils % % Basophils % % Neutrophils # (1.3-7.7) k/uL Lymphocytes # (1.0-4.8) k/uL Monocytes # (0-1.0) k/uL Eosinophils # (0-0.7) k/uL Basophils # (0-0.2) k/uL PT (9.0-12.0) sec INR (<1.2) APTT (22.0-30.0) sec Sodium (137-145) mmol/L Potassium (3.5-5.1) mmol/L Chloride (98-107) mmol/L Carbon Dioxide (22-30) mmol/L Anion Gap mmol/L BUN (7-17) mg/dL Creatinine (0.52-1.04) mg/dL Est GFR (CKD-EPI)AfAm (>60 ml/min/1.73 sqM) Est GFR (CKD-EPI)NonAf (>60 ml/min/1.73 sqM) Glucose (74-99) mg/dL Plasma Lactic Acid Lemuel (0.7-2.0) mmol/L Calcium (8.4-10.2) mg/dL Total Bilirubin (0.2-1.3) mg/dL AST (14-36) U/L ALT (4-34) U/L Alkaline Phosphatase (38-126) U/L Troponin I <0.012 (0.000-0.034) ng/mL Total Protein (6.3-8.2) g/dL Albumin (3.5-5.0) g/dL Urine Color Yellow Urine Appearance Cloudy H (Clear) Urine pH 5.0 (5.0-8.0) Ur Specific [place] 1.017 (1.001-1.035) Urine Protein 1+ H (Negative) Urine Glucose (UA) Negative (Negative) Urine Ketones Negative (Negative) Urine Blood Negative (Negative) Urine Nitrite Negative (Negative) Urine Bilirubin Negative (Negative) Urine Urobilinogen <2.0 (<2.0) mg/dL Ur Leukocyte Esterase Large H (Negative) Urine WBC >182 H (0-5) /hpf Urine WBC Clumps Many H (None) /hpf Ur Squamous Epith Cells 5 H (0-4) /hpf Urine Bacteria Few H (None) /hpf C. difficile (EIA) Intrp (Negative) Coronavirus (PCR) (Not Detectd) - Radiology Data Radiology results: image reviewed (Chest x-ray shows right lower lobe infiltrate or atelectasis with tiny effusion) Critical Care Time Critical Care Time: Yes Total Critical Care Time: 31 Disposition Clinical Impression: UTI (urinary tract infection), C. difficile colitis, Sepsis Disposition: ADMITTED IP TO THIS HOSP Is patient prescribed a controlled substance at d/c from ED?: No Referrals: Nonstaff,Physician [REFERRING] - 1-2 days Decision Time: 14:01
[2020-11-12] MEDS: SODIUM CHLORIDE 0.9% 1,000 ML IV SCH ×3 (11:18→21:50)
[2020-11-12] MEDS ORDERED: ONDANSETRON 4 MG/2 ML VIAL IVP STA (12:07)
--- NOTE | 2020-11-12 12:33 | XR ---
EXAMINATION TYPE: XR chest 2V DATE OF EXAM: 11/12/2020 COMPARISON: 11/03/2020 HISTORY: Shortness of breath TECHNIQUE: Frontal and lateral views of the chest are obtained. FINDINGS: Scattered senescent parenchymal changes noted. Hyperinflation compatible with COPD. Right basilar atelectasis and/or infiltrate with tiny effusion. Improved aeration left lung. Heart size is stable. Mediastinal structures are stable and grossly unremarkable. No evidence for hilar prominence. Degenerative changes dorsal spine. IMPRESSION: 1. Right basilar atelectasis and/or infiltrate with tiny effusion. Improved aeration left lung.
[2020-11-12 12:35] LABS: Albumin 3.2 g/dL (3.5-5.0); Calcium 9.7 mg/dL (8.4-10.2); Total Bilirubin 0.5 mg/dL (0.2-1.3); Total Protein 6.7 g/dL (6.3-8.2)
[2020-11-12 12:41] LABS: Potassium 4.5 mmol/L (3.5-5.1)
[2020-11-12 12:44] LABS: INR 1.1 (<1.2); Partial Thromboplastin Time 24.7 sec (22.0-30.0); Prothrombin Time 11.3 sec (9.0-12.0)
[2020-11-12 12:45] LABS: Basophils % (A) 0 %; Eosinophils % (A) 0 %; HCT 35.2 % (34.0-46.0); HGB 11.3 gm/dL (11.4-16.0); Lymphocytes # (A) 0.5 k/uL (1.0-4.8); Lymphocytes % (A) 4 %; MCHC 32.1 g/dL (31.0-37.0); MCV 93.6 fL (80.0-100.0); Monocytes # (A) 0.7 k/uL (0-1.0); Monocytes % (A) 5 %; Neutrophils # (A) 12.5 k/uL (1.3-7.7); Neutrophils % (A) 90 %; Platelet Count 496 k/uL (150-450); RBC 3.76 m/uL (3.80-5.40); RDW 14.7 % (11.5-15.5); WBC 13.9 k/uL (3.8-10.6)
[2020-11-12 13:56] LABS: Appearance,Urine Cloudy (Clear); Bacteria,Urine Few /hpf; Bilirubin,Urine Negative (Negative); Blood,Urine Negative (Negative); Color,Urine Yellow; Glucose,Urine (UA) Negative (Negative); Ketones,Urine Negative (Negative); Leukocyte Esterase,Urine Large (Negative); Nitrite,Urine Negative (Negative); Protein,Urine 1+ (Negative); Specific Gravity,Urine 1.017 (1.001-1.035); Squamous Epithelial Cell,Urine 5 /hpf (0-4); Urobilinogen,Urine <2.0 mg/dL (<2.0); WBC,Urine >182 /hpf (0-5)
[2020-11-12] MEDS ORDERED: cefTRIAXone IN SWFI 1,000 MG/10 ML SYRINGE IVP STA (14:02)
[2020-11-12] MEDS ORDERED: NALOXONE 0.4 MG/ML 1 ML VIAL IV PRN (14:04)
[2020-11-12] MEDS ORDERED: metroNIDAZOLE 500 MG TAB PO SCH (14:15)
--- NOTE | 2020-11-12 14:31 | XR ---
EXAMINATION TYPE: XR foot complete LT DATE OF EXAM: 11/12/2020 CLINICAL HISTORY: pain TECHNIQUE: Frontal, lateral and oblique images of the left foot are obtained. COMPARISON: None. FINDINGS: There is no acute fracture/dislocation evident. Bony structures are diffusely osteopenic. Degenerative joint space narrowing throughout the bony tarsus as well as various PIP and DIP joints. Postoperative fixation about the left ankle and os calcis. Posterior soft tissue ulcer at the heal. N o obvious bony destructive process. IMPRESSION: There is no acute fracture or dislocation. ICD 10 NO FRACTURE, INITIAL EVALUATION
[2020-11-12] MEDS: IBUPROFEN 400 MG TAB PO PRN ×2 (14:52→21:49)
--- NOTE | 2020-11-12 16:28 | P.HPIM ---
History of Present Illness H&P Date: 11/12/20 Chief Complaint: Diarrhea This is a 75-year-old female who reported to the hospital because of generalized weakness associated with few days history of watery diarrhea. There was no reported fever at home. Family at bedside. No nausea or vomiting. No reported chest pain, no abdominal pain. Patient denies being on antibiotics recently. She had a similar episode of C. diff while she was on oral antibiotics about one month ago. Review of Systems 10 systems reviewed, pertinent positive and negative findings as in HPI. No chest pain. No nausea or vomiting. Positive for diarrhea. Past Medical History Past Medical History: Coronary Artery Disease (CAD), Diabetes Mellitus, Hyperlipidemia, Hypertension History of Any Multi-Drug Resistant Organisms: None Reported Past Surgical History: Cholecystectomy, Heart Catheterization With Stent, O rthopedic Surgery Additional Past Surgical History / Comment(s): hip surgery, cataract sx, left ankle surgery 2020 Past Anesthesia/Blood Transfusion Reactions: No Reported Reaction Date of Last Stent Placement:: 2000 Past Psychological History: No Psychological Hx Reported Smoking Status: Never smoker Past Alcohol Use History: None Reported Past Drug Use History: None Reported Medications and Allergies Home Medications Medication Instructions Recorded Confirmed Type Collagenase [Santyl] 1 applic TOPICAL HS 09/14/20 11/12/20 History Donepezil [Aricept] 5 mg PO DAILY 09/14/20 11/12/20 History Latanoprost/Pf [Latanoprost 0.005% 1 drop BOTH EYES HS 09/14/20 11/12/20 History Eye Drop] OLANZapine [ZyPREXA] 5 mg PO DAILY 09/14/20 11/12/20 History Simvastatin [Zocor] 20 mg PO DAILY 09/14/20 11/12/20 History Cholecalciferol [Vitamin D3 (25 25 mcg PO DAILY 10/09/20 11/12/20 History Mcg = 1000 Iu)] Metoprolol Succinate (ER) [Toprol 200 mg PO DAILY #60 tab.er.24h 10/23/20 11/12/20 Rx XL] Pantoprazole Sodium [Protonix] 40 mg PO BID 30 Days #60 tablet. 10/23/20 11/12/20 Rx Sucralfate [Carafate] 1 gm PO AC-TID #90 tab 10/23/20 11/12/20 Rx Acetaminophen Tab [Tylenol] 650 mg PO Q6H PRN 10/26/20 11/12/20 History Glimepiride [Amaryl] 8 mg PO AC-BRKFST 10/26/20 11/12/20 History Pioglitazone [Actos] 30 mg PO DAILY 10/26/20 11/12/20 History Darbepoetin Aba [Aranesp] 40 mcg SQ Q7D 11/12/20 11/12/20 History Furosemide [Lasix] 40 mg PO DIRECTED 11/12/20 11/12/20 History Allergies Allergy/AdvReac Type Severity Reaction Status Date / Time No Known Allergies Allergy Verified 11/12/20 12:02 Physical Exam Vitals: Vital Signs Temp Pulse Resp BP Pulse Ox 11/12/20 14:56 128 H 18 120/62 97 11/12/20 13:54 100.2 F H 116 H 18 104/53 94 L 11/12/20 10:45 102.9 F H 148 H 18 119/57 95 Intake and Output 11/12/20 11/12/20 11/12/20 06:59 14:59 22:59 Output Total 200 Balance -200 Output: Urine 200 Straight 200 Other: Weight 61.144 kg Constitutional: No acute distress, conversant, pleasant Eyes: Anicteric sclerae, moist conjunctiva, no lid-lag, ENMT: NC/AT,Oropharynx clear, no erythema, exudates Neck:Supple, FROM, no masses, or JVD Lungs: Clear to auscultation, Clear to percussion Cardiovascular: Heart regular in rate and rhythm, No murmurs, gallops, or rubs no peripheral edema Abdominal: Soft Nontender, nom distended, no guarding, no rebound or rigidity, Normoactive bowel sounds No hepatomegaly, No splenomegaly, No palpable mass No abdominal wall hernia noted Skin: Normal temperature, tone, texture, turgor, No induration Extremities:No digital cyanosis No clubbing, Pedal pulses intact and symmetrical Radial pulses intact and symmetrical Normal gait and station, No calf tenderness left he chronic wound Psychiatric: Alert and oriented to person, place and time, Appropriate affect Intact judgement Neuro: Muscles Strength 5/5 in all 4 extremities, Sensation to light touch grossly present throughout, Cranial nerves II-XII grossly intact. No focal sensory deficits Results CBC & Chem 7: 11/12/20 11:52 11/12/20 11:52 Labs: Abnormal Lab Results - Last 24 Hours (Table) 11/12/20 11/12/20 11/12/20 Range/Units 11:50 11:52 11:52 WBC 13.9 H (3.8-10.6) k/uL RBC 3.76 L (3.80-5.40) m/uL Hgb 11.3 L (11.4-16.0) gm/dL Plt Count 496 H (150-450) k/uL Neutrophils # 12.5 H (1.3-7.7) k/uL Lymphocytes # 0.5 L (1.0-4.8) k/uL Sodium 134 L (137-145) mmol/L BUN 37 H (7-17) mg/dL Creatinine 1.79 H (0.52-1.04) mg/dL Glucose 210 H (74-99) mg/dL Plasma Lactic Acid Lemuel (0.7-2.0) mmol/L Albumin 3.2 L (3.5-5.0) g/dL Urine Appearance (Clear) Urine Protein (Negative) Ur Leukocyte Esterase (Negative) Urine WBC (0-5) /hpf Urine WBC Clumps (None) /hpf Ur Squamous Epith Cells (0-4) /hpf Urine Bacteria (None) /hpf C. difficile (EIA) Intrp Positive A (Negative) 11/12/20 11/12/20 Range/Units 11:52 13:30 WBC (3.8-10.6) k/uL RBC (3.80-5.40) m/uL Hgb (11.4-16.0) gm/dL Plt Count (150-450) k/uL Neutrophils # (1.3-7.7) k/uL Lymphocytes # (1.0-4.8) k/uL Sodium (137-145) mmol/L BUN (7-17) mg/dL Creatinine (0.52-1.04) mg/dL Glucose (74-99) mg/dL Plasma Lactic Acid Lemuel 2.5 H* (0.7-2.0) mmol/L Albumin (3.5-5.0) g/dL Urine Appearance Cloudy H (Clear) Urine Protein 1+ H (Negative) Ur Leukocyte Esterase Large H (Negative) Urine WBC >182 H (0-5) /hpf Urine WBC Clumps Many H (None) /hpf Ur Squamous Epith Cells 5 H (0-4) /hpf Urine Bacteria Few H (None) /hpf C. difficile (EIA) Intrp (Negative) Assessment and Plan Plan: 1. Acute C. diff colitis, not hospital-acquired, unknown etiology: Start oral vancomycin and IV Flagyl. Continue supportive care. 2. Acute UTI unspecified organism or location: Start IV Rocephin 3. Sepsis without septic shock secondary to acute C. diff and UTI: Treat underlying condition, continue IV fluids and IV antibiotics. 4. Hypovolemia: Continue normal saline. 5. Acute kidney injury secondary to hypovolemia: Serum creatinine 1.7, unknown baseline, continue IV fluid resuscitation and recheck avoid nephrotoxins. 6. Diabetes type 2 with hyperglycemia: Place on insulin sliding scale. 7. Dementia unspecified type without behavioral changes: Continue Aricept and olanzapine 8. Hyperlipidemia: Continue statin 9. GERD without esophagitis: Continue Carafate, hold Protonix in the setting of C. diff. 10. Weakness: Consult PTOT DVT prophylaxis: SCDs Disposition: Pending clinical progression Treatment plan discussed with the patient and her daughters is at bedside
[2020-11-12 17:49] LABS: Glucose,Whole Blood 190 mg/dL (75-99)
[2020-11-12] MEDS ORDERED: metroNIDAZOLE-NS PMX 500 MG in SALINE 1 100ML.BAG IVPB SCH (18:00)
[2020-11-12] MEDS ORDERED: VANCOMYCIN 125 MG CAPSULE PO SCH (18:00)
[2020-11-12] MEDS: ACETAMINOPHEN TAB 325 MG TAB PO PRN (18:05)
[2020-11-12] MEDS: SUCRALFATE 1 GM TAB PO SCH (18:05)
[2020-11-12] MEDS: INSULIN ASPART (NovoLOG) 100 UNIT/ML VIAL SQ SCH (18:09)
[2020-11-12 21:47] LABS: Glucose,Whole Blood 162 mg/dL (75-99)
[2020-11-12] MEDS: INSULIN DETEMIR (LEVEMIR) 100 UNIT/ML SYR SQ SCH (21:50)
[2020-11-12] MEDS: VANCOMYCIN 125 MG CAPSULE PO SCH (22:04)
[2020-11-12] MEDS: LATANOPROST 0.005% OPHTH DROPS 2.5 ML BTL BOTH EYES SCH (22:10)
--- NOTE | 2020-11-12 23:39 | P.CONS ---
History of Present Illness - Reason for Consult Consult date: 11/12/20 c diff coliits Requesting physician: Janelle Ordoñez - Chief Complaint weakness and diarrhea x 1 day - History of Present Illness History of present illness : Patient is 75-year-old female with recent multiple admission to this facility patient has been treated for C. difficile colitis as well as UTI and recently was treated for catheter associated tract infection secondary to Keeley glabrata the patient was brought to [facility] ER this morning chief complaint of generalized weakness that has been progressively getting worse the patient also started having a fever and diarrhea the patient will be started yesterday the patient did have multiple loose stool but denies any blood or mucus in the stool patient did have some vague abdominal pain unable to quantify any further patient did have some nausea but no vomiting patient on presentation to the hospital did have a fever of 102 degrees Fahrenheit patient also noticed to be tachycardic did have a white count of 13.9 elevated lactic acid creatinine was mildly elevated as well as BUN liver enzymes were normal urine has been positive stool for C. difficile positive german PCR was not detected patient did have a chest x-ray right basilar atelectasis or infiltrate patient was started on Rocephin Flagyl and vancomycin infectious was consulted for further management of antibiotic therapy most information has been obtained from review the chart was subsequently patient by the patient however she is not a good historian Review of system: CONSTITUTIONAL: Positive for weakness along with the fever. EYES: No complaint. ENT: No complaint. RESPIRATORY: No complaint. CARDIOVASCULAR: No complaint. GENITOURINARY: No complaint. GASTROINTESTINAL: As per history of present illness. MUSCULOSKELETAL: No complaint. INTEGUMENTARY: No complaint. PSYCHOLOGIC: No complaint. ENDOCRINE: No complaint. NEUROLOGIC: No complaint. Past medical history : Reviewed, documented below Past surgical history : Reviewed, documented below Social history: Reviewed, documented below Medications: Reviewed, as documented below EXAMINATION: Vital sigans= Reviewed and documented below GENERAL DESCRIPTION: Elderly female lying in bed, no distress. No tachypnea or accessory muscle of respiration use. HEENT: Shows Pallor , no scleral icterus. Oral mucous membrane is dry. NECK: Trachea central, no thyromegaly. LUNGS: Unlabored breathing. Clear to auscultation anteriorly. No wheeze or crackle. HEART: S1, S2, regular rate and rhythm. ABDOMEN: Soft, no tenderness , guarding or rigidity EXTREMITIES: No edema of feet. SKIN: No rash, no masses palpable. 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 every 6 hours 3-change Mack catheter obtain urine culture from the new Mack We will follow on clinical condition and cultures to further adjust medication if needed Thank you for this consultation we will follow the patient along with you Past Medical History Past Medical History: Coronary Artery Disease (CAD), Diabetes Mellitus, Hyperlipidemia, Hypertension History of Any Multi-Drug Resistant Organisms: None Reported Past Surgical History: Cholecystectomy, Heart Catheterization With Stent, Orthopedic Surgery Additional Past Surgical History / Comment(s): hip surgery, cataract sx, left ankle surgery 2020 Past Anesthesia/Blood Transfusion Reactions: No Reported Reaction Date of Last Stent Placement:: 2000 Past Psychological History: No Psychological Hx Reported Smoking Status: Never smoker Past Alcohol Use History: None Reported Past Drug Use History: None Reported Medications and Allergies Home Medications Medication Instructions Recorded Confirmed Type Collagenase [Santyl] 1 applic TOPICAL HS 09/14/20 11/12/20 History Donepezil [Aricept] 5 mg PO DAILY 09/14/20 11/12/20 History Latanoprost/Pf [Latanoprost 0.005% 1 drop BOTH EYES HS 09/14/20 11/12/20 History Eye Drop] OLANZapine [ZyPREXA] 5 mg PO DAILY 09/14/20 11/12/20 History Simvastatin [Zocor] 20 mg PO DAILY 09/14/20 11/12/20 History Cholecalciferol [Vitamin D3 (25 25 mcg PO DAILY 10/09/20 11/12/20 History Mcg = 1000 Iu)] Metoprolol Succinate (ER) [Toprol 200 mg PO DAILY #60 tab.er.24h 10/23/2010/25 Rx XL] Pantoprazole Sodium [Protonix] 40 mg PO BID 30 Days #60 tablet. 10/23/20 11/12/20 Rx Sucralfate [Carafate] 1 gm PO AC-TID #90 tab 10/23/20 11/12/20 Rx Acetaminophen Tab [Tylenol] 650 mg PO Q6H PRN 10/26/20 11/12/20 History Glimepiride [Amaryl] 8 mg PO AC-BRKFST 10/26/20 11/12/20 History Pioglitazone [Actos] 30 mg PO DAILY 10/26/20 11/12/20 History Darbepoetin Aba [Aranesp] 40 mcg SQ Q7D 11/12/20 11/12/20 History Furosemide [Lasix] 40 mg PO DIRECTED 11/12/20 11/12/20 History Allergies Allergy/AdvReac Type Severity Reaction Status Date / Time No Known Allergies Allergy Verified 11/12/20 12:02 Physical Exam Vitals: Vital Signs Temp Pulse Resp BP Pulse Ox 11/12/20 16:29 101.3 F H 130 H 20 117/61 93 L 11/12/20 14:56 128 H 18 120/62 97 11/12/20 13:54 100.2 F H 116 H 18 104/53 94 L 11/12/20 10:45 102.9 F H 148 H 18 119/57 95 Intake and Output 11/12/20 11/12/20 11/12/20 06:59 14:59 22:59 Output Total 200 Balance -200 Output: Urine 200 Straight 200 Other: Weight 61.144 kg Results CBC & Chem 7: 11/12/20 11:52 11/12/20 11:52 Labs: Abnormal Lab Results - Last 24 Hours (Table) 11/12/20 11/12/20 11/12/20 Range/Units 11:50 11:52 11:52 WBC 13.9 H (3.8-10.6) k/uL RBC 3.76 L (3.80-5.40) m/uL Hgb 11.3 L (11.4-16.0) gm/dL Plt Count 496 H (150-450) k/uL Neutrophils # 12.5 H (1.3-7.7) k/uL Lymphocytes # 0.5 L (1.0-4.8) k/uL Sodium 134 L (137-145) mmol/L BUN 37 H (7-17) mg/dL Creatinine 1.79 H (0.52-1.04) mg/dL Glucose 210 H (74-99) mg/dL Plasma Lactic Acid Lemuel (0.7-2.0) mmol/L Albumin 3.2 L (3.5-5.0) g/dL Urine Appearance (Clear) Urine Protein (Negative) Ur Leukocyte Esterase (Negative) Urine WBC (0-5) /hpf Urine WBC Clumps (None) /hpf Ur Squamous Epith Cells (0-4) /hpf Urine Bacteria (None) /hpf C. difficile (EIA) Intrp Positive A (Negative) 11/12/20 11/12/20 Range/Units 11:52 13:30 WBC (3.8-10.6) k/uL RBC (3.80-5.40) m/uL Hgb (11.4-16.0) gm/dL Plt Count (150-450) k/uL Neutrophils # (1.3-7.7) k/uL Lymphocytes # (1.0-4.8) k/uL Sodium (137-145) mmol/L BUN (7-17) mg/dL Creatinine (0.52-1.04) mg/dL Glucose (74-99) mg/dL Plasma Lactic Acid Lemuel 2.5 H* (0.7-2.0) mmol/L Albumin (3.5-5.0) g/dL Urine Appearance Cloudy H (Clear) Urine Protein 1+ H (Negative) Ur Leukocyte Esterase Large H (Negative) Urine WBC >182 H (0-5) /hpf Urine WBC Clumps Many H (None) /hpf Ur Squamous Epith Cells 5 H (0-4) /hpf Urine Bacteria Few H (None) /hpf C. difficile (EIA) Intrp (Negative)
[2020-11-12] MEDS ORDERED: SODIUM CHLORIDE 0.9% 1,000 ML IV ONE (23:59)
[2020-11-13] MEDS: VANCOMYCIN 125 MG CAPSULE PO SCH ×5 (02:18→22:07)
[2020-11-13] MEDS: VORICONAZOLE 200 MG TAB PO SCH ×3 (02:18→20:17)
[2020-11-13] MEDS: ACETAMINOPHEN TAB 325 MG TAB PO PRN ×3 (02:22→20:24)
[2020-11-13 03:45] LABS: Appearance,Urine Cloudy (Clear); Bacteria,Urine Moderate /hpf; Bilirubin,Urine Negative (Negative); Blood,Urine Negative (Negative); Budding Yeast,Urine Moderate /hpf; Color,Urine Yellow; Glucose,Urine (UA) Negative (Negative); Hyaline Casts,Urine 2 /lpf (0-2); Ketones,Urine Negative (Negative); Leukocyte Esterase,Urine Large (Negative); Mucus,Urine Rare /hpf; Nitrite,Urine Negative (Negative); Protein,Urine 1+ (Negative); RBC,Urine 9 /hpf (0-5); Squamous Epithelial Cell,Urine 2 /hpf (0-4); Urobilinogen,Urine <2.0 mg/dL (<2.0); WBC,Urine >182 /hpf (0-5)
[2020-11-13] MEDS: SODIUM CHLORIDE 0.9% 1,000 ML IV SCH ×4 (06:47→20:16)
[2020-11-13] MEDS ORDERED: SODIUM CHLORIDE 0.9% 500 ML 500 ML IV STA ×2 (08:19→16:21)
[2020-11-13 08:27] LABS: Glucose,Whole Blood 40 mg/dL (75-99)
[2020-11-13] MEDS ORDERED: DEXTROSE 50% SYRINGE 50 ML IVP STA ×2 (08:33→13:11)
[2020-11-13 08:52] LABS: Glucose,Whole Blood 145 mg/dL (75-99)
[2020-11-13] MEDS: INSULIN ASPART (NovoLOG) 100 UNIT/ML VIAL SQ SCH ×3 (08:54→18:25)
[2020-11-13] MEDS ORDERED: PANTOPRAZOLE 40 MG/10 ML VIAL IV SCH (09:00)
[2020-11-13] MEDS: ATORVASTATIN 10 MG TAB PO SCH (09:08)
[2020-11-13] MEDS: SUCRALFATE 1 GM TAB PO SCH ×3 (09:08→20:15)
[2020-11-13] MEDS: DONEPEZIL 5 MG TAB PO SCH (09:08)
[2020-11-13] MEDS: OLANZapine 5 MG TAB PO SCH (09:09)
[2020-11-13 10:08] LABS: African American GFR (CKD) 23.5 (60.0-200.0); Albumin 2.8 g/dL (3.80-4.90); Albumin/Globulin Ratio 1.08 (1.60-3.17); Anion Gap 11.1 mmol/L (4.00-12.00); BUN/Creat Ratio 18.26 Ratio (12.00-20.00); Calcium 8.6 mg/dL (8.7-10.3); Carbon Dioxide 20.9 mmol/L (21.6-31.8); Globulin 2.6 g/dL (1.6-3.3); Non-African American GFR(CKD) 20.3 (60.0-200.0); Potassium 3.4 mmol/L (3.5-5.5); Total Bilirubin 0.2 mg/dL (0.3-1.2); Total Protein 5.4 g/dL (6.2-8.2)
[2020-11-13 10:14] LABS: Glucose,Whole Blood 112 mg/dL (75-99)
[2020-11-13 12:02] LABS: Basophils # (A) 0.05 X 10*3/uL (0.00-0.10); Basophils % (A) 0.4 %; Eosinophils # (A) 0.03 X 10*3/uL (0.04-0.35); Eosinophils % (A) 0.2 %; HCT 32.1 % (37.2-46.3); HGB 9.4 g/dL (12.0-15.0); Lymphocytes # (A) 0.78 X 10*3/uL (0.90-5.00); Lymphocytes % (A) 6.4 %; MCHC 29.3 g/dL (32.0-37.0); MCV 95.5 fL (80.0-97.0); Mean Platelet Volume 9.4 fL (9.5-12.2); Monocytes # (A) 1.09 X 10*3/uL (0.20-1.00); Monocytes % (A) 8.9 %; Neutrophils # (A) 10.22 X 10*3/uL (1.80-7.70); Neutrophils % (A) 83.6 %; Platelet Count 405 X 10*3/uL (140-440); RBC 3.36 X 10*6/uL (4.10-5.20); RDW 15.2 % (11.5-14.5); WBC 12.23 X 10*3/uL (4.50-10.00)
[2020-11-13 12:34] LABS: Glucose,Whole Blood 56 mg/dL (75-99)
[2020-11-13 12:57] LABS: Glucose,Whole Blood 65 mg/dL (75-99)
[2020-11-13 13:11] LABS: Glucose,Whole Blood 65 mg/dL (75-99)
--- NOTE | 2020-11-13 13:41 | P.PN ---
Subjective Progress Note Date: 11/13/20 Lethargic, in bed. Not a very good historian. Was hypotensive and hypoglycemic earlier this morning. Objective - Vital Signs Vital signs: Vital Signs Temp 98.5 F 11/13/20 11:55 Pulse 108 H 11/13/20 11:55 Resp 18 11/13/20 11:55 BP 109/56 11/13/20 11:55 Pulse Ox 95 11/13/20 11:55 Intake & Output 11/12/20 11/13/20 11/13/20 18:59 06:59 18:59 Output Total 200 Balance -200 Weight 61.144 kg Output: Urine 200 Straight 200 - Exam Constitutional: Lethargic Eyes: Anicteric sclerae, moist conjunctiva, no lid-lag, ENMT: NC/AT,Oropharynx clear, no erythema, exudates Neck:Supple, FROM, no masses Lungs: Clear to auscultation, Clear to percussion Cardiovascular: Heart regular in rate and rhythm, No murmurs, gallops Abdominal: Soft Nontender, non distended Skin: Normal temperature, tone, texture, turgor, No induration Extremities:No digital cyanosis No clubbing, Pedal pulses intact and symmetrical Radial pulses intact and symmetrical Normal gait and station, No calf tenderness left he chronic wound Psychiatric: Alert Neuro: Muscles Strength 5/5 in all 4 extremities - Labs CBC & Chem 7: 11/13/20 05:18 11/13/20 05:18 Labs: Abnormal Lab Results - Last 24 Hours (Table) 11/12/20 11/12/20 11/12/20 Range/Units 13:30 17:47 21:46 WBC (4.50-10.00) X 10*3/uL RBC (4.10-5.20) X 10*6/uL Hgb (12.0-15.0) g/dL Hct (37.2-46.3) % MCHC (32.0-37.0) g/dL RDW (11.5-14.5) % MPV (9.5-12.2) fL Immature Gran # (0.00-0.04) X 10*3/uL Neutrophils # (1.80-7.70) X 10*3/uL Lymphocytes # (0.90-5.00) X 10*3/uL Monocytes # (0.20-1.00) X 10*3/uL Eosinophils # (0.04-0.35) X 10*3/uL Potassium (3.5-5.5) mmol/L Carbon Dioxide (21.6-31.8) mmol/L BUN (9.0-27.0) mg/dL Creatinine (0.6-1.5) mg/dL Est GFR (CKD-EPI)AfAm (60.0-200.0) Est GFR (CKD-EPI)NonAf (60.0-200.0) Glucose (70-110) mg/dL POC Glucose (mg/dL) 190 H 162 H (75-99) mg/dL Calcium (8.7-10.3) mg/dL Total Bilirubin (0.3-1.2) mg/dL Total Protein (6.2-8.2) g/dL Albumin (3.80-4.90) g/dL Albumin/Globulin Ratio (1.60-3.17) g/dL Urine Appearance Cloudy H (Clear) Urine Protein 1+ H (Negative) Ur Leukocyte Esterase Large H (Negative) Urine RBC (0-5) /hpf Urine WBC >182 H (0-5) /hpf Urine WBC Clumps Many H (None) /hpf Ur Squamous Epith Cells 5 H (0-4) /hpf Urine Bacteria Few H (None) /hpf Urine Mucus (None) /hpf Urine Yeast (Budding) (None) /hpf 11/13/20 11/13/20 11/13/20 Range/Units 02:44 05:18 05:18 WBC 12.23 H (4.50-10.00) X 10*3/uL RBC 3.36 L (4.10-5.20) X 10*6/uL Hgb 9.4 L (12.0-15.0) g/dL Hct 32.1 L (37.2-46.3) % MCHC 29.3 L (32.0-37.0) g/dL RDW 15.2 H (11.5-14.5) % MPV 9.4 L (9.5-12.2) fL Immature Gran # 0.06 H (0.00-0.04) X 10*3/uL Neutrophils # 10.22 H (1.80-7.70) X 10*3/uL Lymphocytes # 0.78 L (0.90-5.00) X 10*3/uL Monocytes # 1.09 H (0.20-1.00) X 10*3/uL Eosinophils # 0.03 L (0.04-0.35) X 10*3/uL Potassium 3.4 L (3.5-5.5) mmol/L Carbon Dioxide 20.9 L (21.6-31.8) mmol/L BUN 42.0 H (9.0-27.0) mg/dL Creatinine 2.3 H (0.6-1.5) mg/dL Est GFR (CKD-EPI)AfAm 23.5 L (60.0-200.0) Est GFR (CKD-EPI)NonAf 20.3 L (60.0-200.0) Glucose 47 L* (70-110) mg/dL POC Glucose (mg/dL) (75-99) mg/dL Calcium 8.6 L (8.7-10.3) mg/dL Total Bilirubin 0.2 L (0.3-1.2) mg/dL Total Protein 5.4 L (6.2-8.2) g/dL Albumin 2.80 L (3.80-4.90) g/dL Albumin/Globulin Ratio 1.08 L (1.60-3.17) g/dL Urine Appearance Cloudy H (Clear) Urine Protein 1+ H (Negative) Ur Leukocyte Esterase Large H (Negative) Urine RBC 9 H (0-5) /hpf Urine WBC >182 H (0-5) /hpf Urine WBC Clumps Many H (None) /hpf Ur Squamous Epith Cells (0-4) /hpf Urine Bacteria Moderate H (None) /hpf Urine Mucus Rare H (None) /hpf Urine Yeast (Budding) Moderate H (None) /hpf 11/13/20 11/13/20 11/13/20 Range/Units 08:25 08:51 10:14 WBC (4.50-10.00) X 10*3/uL RBC (4.10-5.20) X 10*6/uL Hgb (12.0-15.0) g/dL Hct (37.2-46.3) % MCHC (32.0-37.0) g/dL RDW (11.5-14.5) % MPV (9.5-12.2) fL Immature Gran # (0.00-0.04) X 10*3/uL Neutrophils # (1.80-7.70) X 10*3/uL Lymphocytes # (0.90-5.00) X 10*3/uL Monocytes # (0.20-1.00) X 10*3/uL Eosinophils # (0.04-0.35) X 10*3/uL Potassium (3.5-5.5) mmol/L Carbon Dioxide (21.6-31.8) mmol/L BUN (9.0-27.0) mg/dL Creatinine (0.6-1.5) mg/dL Est GFR (CKD-EPI)AfAm (60.0-200.0) Est GFR (CKD-EPI)NonAf (60.0-200.0) Glucose (70-110) mg/dL POC Glucose (mg/dL) 40 L 145 H 112 H (75-99) mg/dL Calcium (8.7-10.3) mg/dL Total Bilirubin (0.3-1.2) mg/dL Total Protein (6.2-8.2) g/dL Albumin (3.80-4.90) g/dL Albumin/Globulin Ratio (1.60-3.17) g/dL Urine Appearance (Clear) Urine Protein (Negative) Ur Leukocyte Esterase (Negative) Urine RBC (0-5) /hpf Urine WBC (0-5) /hpf Urine WBC Clumps (None) /hpf Ur Squamous Epith Cells (0-4) /hpf Urine Bacteria (None) /hpf Urine Mucus (None) /hpf Urine Yeast (Budding) (None) /hpf 11/13/20 11/13/20 11/13/20 Range/Units 12:33 12:56 13:10 WBC (4.50-10.00) X 10*3/uL RBC (4.10-5.20) X 10*6/uL Hgb (12.0-15.0) g/dL Hct (37.2-46.3) % MCHC (32.0-37.0) g/dL RDW (11.5-14.5) % MPV (9.5-12.2) fL Immature Gran # (0.00-0.04) X 10*3/uL Neutrophils # (1.80-7.70) X 10*3/uL Lymphocytes # (0.90-5.00) X 10*3/uL Monocytes # (0.20-1.00) X 10*3/uL Eosinophils # (0.04-0.35) X 10*3/uL Potassium (3.5-5.5) mmol/L Carbon Dioxide (21.6-31.8) mmol/L BUN (9.0-27.0) mg/dL Creatinine (0.6-1.5) mg/dL Est GFR (CKD-EPI)AfAm (60.0-200.0) Est GFR (CKD-EPI)NonAf (60.0-200.0) Glucose (70-110) mg/dL POC Glucose (mg/dL) 56 L 65 L 65 L (75-99) mg/dL Calcium (8.7-10.3) mg/dL Total Bilirubin (0.3-1.2) mg/dL Total Protein (6.2-8.2) g/dL Albumin (3.80-4.90) g/dL Albumin/Globulin Ratio (1.60-3.17) g/dL Urine Appearance (Clear) Urine Protein (Negative) Ur Leukocyte Esterase (Negative) Urine RBC (0-5) /hpf Urine WBC (0-5) /hpf Urine WBC Clumps (None) /hpf Ur Squamous Epith Cells (0-4) /hpf Urine Bacteria (None) /hpf Urine Mucus (None) /hpf Urine Yeast (Budding) (None) /hpf Microbiology - Last 24 Hours (Table) 11/12/20 11:52 Stool Culture - Preliminary Stool 11/12/20 13:30 Urine Culture - Preliminary Urine,Catheterized Assessment and Plan Plan: 1. Acute C. diff colitis, not hospital-acquired, unknown etiology: Continue oral vancomycin. Continue supportive care. Appreciate input from infectious d rony 2. Acute UTI unspecified organism or location (possible contamination): Rocephin discontinued, appreciate ID input. 3. Sepsis without septic shock secondary to acute C. diff and with hypotension: Treat underlying condition, continue IV fluids and antibiotics. 4. Hypovolemia: Continue normal saline. 5. Acute kidney injury secondary to hypovolemia: Serum creatinine 1.7, unknown baseline, continue IV fluid resuscitation and avoid nephrotoxins. Serum creatinine up to 2.3 6. Diabetes type 2 with hyperglycemia: Continue on insulin sliding scale. 7. Dementia unspecified type without behavioral changes: Continue Aricept and olanzapine 8. Hyperlipidemia: Continue statin 9. GERD without esophagitis: Continue Carafate, hold Protonix in the setting of C. diff. 10. Weakness: Consult PTOT DVT prophylaxis: SCDs Disposition: Pending clinical progression
[2020-11-13 13:52] LABS: Glucose,Whole Blood 178 mg/dL (75-99)
[2020-11-13 15:29] LABS: Glucose,Whole Blood 137 mg/dL (75-99)
--- NOTE | 2020-11-13 17:25 | PN ---
PROGRESS NOTE DATE OF SERVICE: 11/13/2020 REASON FOR FOLLOW UP: C difficile colitis and UTI. INTERVAL HISTORY: Patient overall fever pattern has improved. No fever since last night. The patient remains to be lethargic. Did have one loose stool this morning per nursing staff. She was unable to provide any history. Blood pressure was low requiring fluid boluses. PHYSICAL EXAMINATION: Her blood pressure is 98/40, pulse 124, temperature 98.5. She is 97% on room air. General description is an elderly female lying in bed in no distress. Respiratory system: Unlabored breathing, clear to auscultation anteriorly. Heart S1, S2. Regular rate and rhythm. Abdomen soft. No tenderness. No guarding. No rigidity. Extremities are no edema of the feet. LABS: No new labs have been obtained today. DIAGNOSTIC IMPRESSION AND PLAN: Patient admitted to the hospital with sepsis. Source is likely C difficile colitis. This patient did have a component of UTI as well. Urine showing a previous culture positive for Keeley glabrata. She is currently on voriconazole and of vancomycin, to continue while monitoring clinical course closely. Continue supportive care. MMODL / IJN: [id number] /
[2020-11-13] MEDS ORDERED: SODIUM CHLORIDE 0.9% 500 ML 500 ML IV ONE (18:48)
[2020-11-13 20:26] LABS: Glucose,Whole Blood 68 mg/dL (75-99)
[2020-11-13] MEDS: INSULIN DETEMIR (LEVEMIR) 100 UNIT/ML SYR SQ SCH (20:26)
[2020-11-13 20:45] LABS: Glucose,Whole Blood 69 mg/dL (75-99)
[2020-11-13 21:02] LABS: Glucose,Whole Blood 96 mg/dL (75-99)
[2020-11-13] MEDS: LATANOPROST 0.005% OPHTH DROPS 2.5 ML BTL BOTH EYES SCH (22:07)
[2020-11-14] MEDS: SODIUM CHLORIDE 0.9% 1,000 ML IV SCH ×2 (04:56→10:50)
[2020-11-14 06:07] LABS: Glucose,Whole Blood 33 mg/dL (75-99)
[2020-11-14 06:26] LABS: Glucose,Whole Blood 37 mg/dL (75-99)
[2020-11-14] MEDS: INSULIN ASPART (NovoLOG) 100 UNIT/ML VIAL SQ SCH ×2 (06:32→12:38)
[2020-11-14] MEDS: SUCRALFATE 1 GM TAB PO SCH ×3 (06:36→17:02)
[2020-11-14] MEDS ORDERED: DEXTROSE 50% SYRINGE 50 ML IVP ONE ×4 (06:37→20:01)
[2020-11-14] MEDS: ONDANSETRON 4 MG/2 ML VIAL IVP PRN ×2 (06:43→20:13)
[2020-11-14 06:57] LABS: Glucose,Whole Blood 68 mg/dL (75-99)
[2020-11-14 07:04] LABS: Glucose,Whole Blood 181 mg/dL (75-99)
[2020-11-14 07:18] LABS: Basophils % (A) 0 %; Eosinophils # (A) 0.2 k/uL (0-0.7); Eosinophils % (A) 1 %; HCT 33.7 % (34.0-46.0); HGB 10.4 gm/dL (11.4-16.0); Hypochromasia Marked; Lymphocytes # (A) 0.7 k/uL (1.0-4.8); Lymphocytes % (A) 4 %; MCHC 30.9 g/dL (31.0-37.0); Mean Platelet Volume 7.2; Monocytes # (A) 0.6 k/uL (0-1.0); Monocytes % (A) 3 %; Neutrophils % (A) 91 %; Platelet Count 540 k/uL (150-450); RBC 3.47 m/uL (3.80-5.40); WBC 18.7 k/uL (3.8-10.6)
[2020-11-14 07:21] LABS: Albumin 2.4 g/dL (3.5-5.0); Calcium 9.1 mg/dL (8.4-10.2); Potassium 3.5 mmol/L (3.5-5.1); Total Bilirubin 0.1 mg/dL (0.2-1.3); Total Protein 5.6 g/dL (6.3-8.2)
[2020-11-14] MEDS ORDERED: Potassium Replacement Protocol 1 EACH MISC MISCELLANE PRN (09:01)
--- NOTE | 2020-11-14 09:07 | P.CONS ---
History of Present Illness - Reason for Consult Consult date: 11/14/20 wound care - History of Present Illness This is a 75-year-old female known to the wound care center being seen on [address] for nonhealing ulceration to the left heel and left buttocks. Patient has history of diabetes. We've been utilizing Santyl to the ulceration site. The left posterior calcaneus ulcerations related to surgical mention post fall. The ulceration was closed with sutures however once the sutures were removed ulceration open resulting in open ulceration. At this time the ulceration is a partial thickness wound with etiology of open surgical located on the left posterior calcaneus. The wound measurements approximately. There is tunneling present with exposure of hardware. Wound edges are distinct with the outlined attached to the wound base. Minimal to no granulation is noted. There is a large amount of necrotic tissue within the wound that including eschar Slough and devitalized tissue. periwound exhibits dry scaly and erythema. Patient was supposed to follow-up with her surgeon last week for discussion of possible removal of hardware. There was discussion last week and wound care related to utilizing a negative pressure wound VAC. However due to the exposure of hardware a decision will need to be made if the hardware is going to be removed. Left buttocks ulceration was healed last week however there is some redness noted to the site. Review Of Systems: Constitutional: No fever, no chills, no night sweats. No weight change. No weakness, fatigue or lethargy. No daytime sleepiness. Integumentary:reports wounds, no lesions. No rash or pruritus. No unusual bruising. No change in hair or nails. Physical exam: General Appearance: Alert, cooperative, no distress, appears stated age. Skin: See HPI all other Skin color, texture, tugor normal, no rashes or lesions. Neurologic: Alert oriented x3 Assessment: 1. Pressure ulcer left heel stage III 2. Type 2 diabetes with foot ulcer 3. Pressure ulcer of left buttock stage II Plan: 1. Left calcaneus: Apply Santyl, saline moist gauze, dry gauze, rolled gauze and secure with paper tape. Change daily. 2. Continue to utilize a heel protector. 3. Minimal weightbearing status to the left calcaneus 4. Apply zinc barrier cream daily to left buttocks 5. Next wound care appointment is 11/13/2020 @ 3:00 Thank you for the consultation any questions please contact the wound care center. DNP note has been reviewed and discussed with Dr. Kim and the impression and plan of care has been directed as dictated. Past Medical History Past Medical History: Coronary Artery Disease (CAD), Diabetes Mellitus, Hyperlipidemia, Hypertension History of Any Multi-Drug Resistant Organisms: None Reported Past Surgical History: Cholecystectomy, Heart Catheterization With Stent, Orthopedic Surgery Additional Past Surgical History / Comment(s): hip surgery, cataract sx, left ankle surgery 2020 Past Anesthesia/Blood Transfusion Reactions: No Reported Reaction Date of Last Stent Placement:: 2000 Past Psychological History: No Psychological Hx Reported Smoking Status: Never smoker Past Alcohol Use History: None Reported Past Drug Use History: None Reported Medications and Allergies Home Medications Medication Instructions Recorded Confirmed Type Collagenase [Santyl] 1 applic TOPICAL HS 09/14/20 11/12/20 History Donepezil [Aricept] 5 mg PO DAILY 09/14/20 11/12/20 History Latanoprost/Pf [Latanoprost 0.005% 1 drop BOTH EYES HS 09/14/20 11/12/20 History Eye Drop] OLANZapine [ZyPREXA] 5 mg PO DAILY 09/14/20 11/12/20 History Simvastatin [Zocor] 20 mg PO DAILY 09/14/20 11/12/20 History Cholecalciferol [Vitamin D3 (25 25 mcg PO DAILY 10/09/20 11/12/20 History Mcg = 1000 Iu)] Metoprolol Succinate (ER) [Toprol 200 mg PO DAILY #60 tab.er.24h 10/23/20 11/12/20 Rx XL] Pantoprazole Sodium [Protonix] 40 mg PO BID 30 Days #60 tablet.dr 10/23/20 11/12/20 Rx Sucralfate [Carafate] 1 gm PO AC-TID #90 tab 10/23/20 11/12/20 Rx Acetaminophen Tab [Tylenol] 650 mg PO Q6H PRN 10/26/20 11/12/20 History Glimepiride [Amaryl] 8 mg PO AC-BRKFST 10/26/20 11/12/20 History Pioglitazone [Actos] 30 mg PO DAILY 10/26/20 11/12/20 History Darbepoetin Aba [Aranesp] 40 mcg SQ Q7D 11/12/20 11/12/20 History Furosemide [Lasix] 40 mg PO DIRECTED 11/12/20 11/12/20 History Allergies Allergy/AdvReac Type Severity Reaction Status Date / Time No Known Allergies Allergy Verified 11/12/20 12:02 Physical Exam Vitals: Vital Signs Temp Pulse Pulse Resp BP BP Pulse Ox 11/14/20 06:45 122/57 11/14/20 03:36 98.5 F 129 H 16 97/60 94 L 11/14/20 02:00 16 11/13/20 23:45 99.3 F 128 H 16 120/65 94 L 11/13/20 20:00 99.3 F 110 H 14 112/66 95 11/13/20 19:05 98.3 F 124 H 16 109/63 93 L 11/13/20 18:27 112 H 16 96/54 96 11/13/20 17:01 125 H 18 104/51 93 L 11/13/20 16:28 110 H 11/13/20 16:26 93/39 11/13/20 16:14 81/38 11/13/20 16:10 68/56 11/13/20 16:00 70/46 11/13/20 15:50 86/39 11/13/20 15:29 125 H 18 90/42 95 11/13/20 14:34 124 H 18 98/48 97 11/13/20 11:55 98.5 F 108 H 18 109/56 95 11/13/20 10:11 93 18 92/41 95 Intake and Output 11/13/20 11/14/20 11/14/20 22:59 06:59 14:59 Other: Voiding Method Diaper Diaper # Voids 1 1 # Bowel Movements 1 1 Weight 62 kg Results CBC & Chem 7: 11/14/20 06:40 11/14/20 06:40 Labs: Abnormal Lab Results - Last 24 Hours (Table) 11/13/20 11/13/20 11/13/20 Range/Units 05:18 05:18 10:14 WBC 12.23 H (4.50-10.00) X 10*3/uL RBC 3.36 L (4.10-5.20) X 10*6/uL Hgb 9.4 L (12.0-15.0) g/dL Hct 32.1 L (37.2-46.3) % MCHC 29.3 L (32.0-37.0) g/dL RDW 15.2 H (11.5-14.5) % Plt Count (150-450) k/uL MPV 9.4 L (9.5-12.2) fL Immature Gran # 0.06 H (0.00-0.04) X 10*3/uL Neutrophils # 10.22 H (1.80-7.70) X 10*3/uL Lymphocytes # 0.78 L (0.90-5.00) X 10*3/uL Monocytes # 1.09 H (0.20-1.00) X 10*3/uL Eosinophils # 0.03 L (0.04-0.35) X 10*3/uL Potassium 3.4 L (3.5-5.5) mmol/L Chloride (98-107) mmol/L Carbon Dioxide 20.9 L (21.6-31.8) mmol/L BUN 42.0 H (9.0-27.0) mg/dL Creatinine 2.3 H (0.6-1.5) mg/dL Est GFR (CKD-EPI)AfAm 23.5 L (60.0-200.0) Est GFR (CKD-EPI)NonAf 20.3 L (60.0-200.0) Glucose 47 L* (70-110) mg/dL POC Glucose (mg/dL) 112 H (75-99) mg/dL Calcium 8.6 L (8.7-10.3) mg/dL Total Bilirubin 0.2 L (0.3-1.2) mg/dL Total Protein 5.4 L (6.2-8.2) g/dL Albumin 2.80 L (3.80-4.90) g/dL Albumin/Globulin Ratio 1.08 L (1.60-3.17) g/dL 11/13/20 11/13/20 11/13/20 Range/Units 12:33 12:56 13:10 WBC (4.50-10.00) X 10*3/uL RBC (4.10-5.20) X 10*6/uL Hgb (12.0-15.0) g/dL Hct (37.2-46.3) % MCHC (32.0-37.0) g/dL RDW (11.5-14.5) % Plt Count (150-450) k/uL MPV (9.5-12.2) fL Immature Gran # (0.00-0.04) X 10*3/uL Neutrophils # (1.80-7.70) X 10*3/uL Lymphocytes # (0.90-5.00) X 10*3/uL Monocytes # (0.20-1.00) X 10*3/uL Eosinophils # (0.04-0.35) X 10*3/uL Potassium (3.5-5.5) mmol/L Chloride (98-107) mmol/L Carbon Dioxide (21.6-31.8) mmol/L BUN (9.0-27.0) mg/dL Creatinine (0.6-1.5) mg/dL Est GFR (CKD-EPI)AfAm (60.0-200.0) Est GFR (CKD-EPI)NonAf (60.0-200.0) Glucose (70-110) mg/dL POC Glucose (mg/dL) 56 L 65 L 65 L (75-99) mg/dL Calcium (8.7-10.3) mg/dL Total Bilirubin (0.3-1.2) mg/dL Total Protein (6.2-8.2) g/dL Albumin (3.80-4.90) g/dL Albumin/Globulin Ratio (1.60-3.17) g/dL 11/13/20 11/13/20 11/13/20 Range/Units 13:38 15:27 20:25 WBC (4.50-10.00) X 10*3/uL RBC (4.10-5.20) X 10*6/uL Hgb (12.0-15.0) g/dL Hct (37.2-46.3) % MCHC (32.0-37.0) g/dL RDW (11.5-14.5) % Plt Count (150-450) k/uL MPV (9.5-12.2) fL Immature Gran # (0.00-0.04) X 10*3/uL Neutrophils # (1.80-7.70) X 10*3/uL Lymphocytes # (0.90-5.00) X 10*3/uL Monocytes # (0.20-1.00) X 10*3/uL Eosinophils # (0.04-0.35) X 10*3/uL Potassium (3.5-5.5) mmol/L Chloride (98-107) mmol/L Carbon Dioxide (21.6-31.8) mmol/L BUN (9.0-27.0) mg/dL Creatinine (0.6-1.5) mg/dL Est GFR (CKD-EPI)AfAm (60.0-200.0) Est GFR (CKD-EPI)NonAf (60.0-200.0) Glucose (70-110) mg/dL POC Glucose (mg/dL) 178 H 137 H 68 L (75-99) mg/dL Calcium (8.7-10.3) mg/dL Total Bilirubin (0.3-1.2) mg/dL Total Protein (6.2-8.2) g/dL Albumin (3.80-4.90) g/dL Albumin/Globulin Ratio (1.60-3.17) g/dL 11/13/20 11/14/20 11/14/20 Range/Units 20:43 06:06 06:25 WBC (4.50-10.00) X 10*3/uL RBC (4.10-5.20) X 10*6/uL Hgb (12.0-15.0) g/dL Hct (37.2-46.3) % MCHC (32.0-37.0) g/dL RDW (11.5-14.5) % Plt Count (150-450) k/uL MPV (9.5-12.2) fL Immature Gran # (0.00-0.04) X 10*3/uL Neutrophils # (1.80-7.70) X 10*3/uL Lymphocytes # (0.90-5.00) X 10*3/uL Monocytes # (0.20-1.00) X 10*3/uL Eosinophils # (0.04-0.35) X 10*3/uL Potassium (3.5-5.5) mmol/L Chloride (98-107) mmol/L Carbon Dioxide (21.6-31.8) mmol/L BUN (9.0-27.0) mg/dL Creatinine (0.6-1.5) mg/dL Est GFR (CKD-EPI)AfAm (60.0-200.0) Est GFR (CKD-EPI)NonAf (60.0-200.0) Glucose (70-110) mg/dL POC Glucose (mg/dL) 69 L 33 L 37 L (75-99) mg/dL Calcium (8.7-10.3) mg/dL Total Bilirubin (0.3-1.2) mg/dL Total Protein (6.2-8.2) g/dL Albumin (3.80-4.90) g/dL Albumin/Globulin Ratio (1.60-3.17) g/dL 11/14/20 11/14/20 11/14/20 Range/Units 06:40 06:40 06:46 WBC 18.7 H (4.50-10.00) X 10*3/uL RBC 3.47 L (4.10-5.20) X 10*6/uL Hgb 10.4 L (12.0-15.0) g/dL Hct 33.7 L (37.2-46.3) % MCHC 30.9 L (32.0-37.0) g/dL RDW (11.5-14.5) % Plt Count 540 H (150-450) k/uL MPV (9.5-12.2) fL Immature Gran # (0.00-0.04) X 10*3/uL Neutrophils # 17.0 H (1.80-7.70) X 10*3/uL Lymphocytes # 0.7 L (0.90-5.00) X 10*3/uL Monocytes # (0.20-1.00) X 10*3/uL Eosinophils # (0.04-0.35) X 10*3/uL Potassium (3.5-5.5) mmol/L Chloride 111 H (98-107) mmol/L Carbon Dioxide 14 L (21.6-31.8) mmol/L BUN 39 H (9.0-27.0) mg/dL Creatinine 1.88 H (0.6-1.5) mg/dL Est GFR (CKD-EPI)AfAm (60.0-200.0) Est GFR (CKD-EPI)NonAf (60.0-200.0) Glucose 57 L (70-110) mg/dL POC Glucose (mg/dL) 68 L (75-99) mg/dL Calcium (8.7-10.3) mg/dL Total Bilirubin 0.1 L (0.3-1.2) mg/dL Total Protein 5.6 L (6.2-8.2) g/dL Albumin 2.4 L (3.80-4.90) g/dL Albumin/Globulin Ratio (1.60-3.17) g/dL 11/14/20 Range/Units 07:03 WBC (4.50-10.00) X 10*3/uL RBC (4.10-5.20) X 10*6/uL Hgb (12.0-15.0) g/dL Hct (37.2-46.3) % MCHC (32.0-37.0) g/dL RDW (11.5-14.5) % Plt Count (150-450) k/uL MPV (9.5-12.2) fL Immature Gran # (0.00-0.04) X 10*3/uL Neutrophils # (1.80-7.70) X 10*3/uL Lymphocytes # (0.90-5.00) X 10*3/uL Monocytes # (0.20-1.00) X 10*3/uL Eosinophils # (0.04-0.35) X 10*3/uL Potassium (3.5-5.5) mmol/L Chloride (98-107) mmol/L Carbon Dioxide (21.6-31.8) mmol/L BUN (9.0-27.0) mg/dL Creatinine (0.6-1.5) mg/dL Est GFR (CKD-EPI)AfAm (60.0-200.0) Est GFR (CKD-EPI)NonAf (60.0-200.0) Glucose (70-110) mg/dL POC Glucose (mg/dL) 181 H (75-99) mg/dL Calcium (8.7-10.3) mg/dL Total Bilirubin (0.3-1.2) mg/dL Total Protein (6.2-8.2) g/dL Albumin (3.80-4.90) g/dL Albumin/Globulin Ratio (1.60-3.17) g/dL Microbiology - Last 24 Hours (Table) 11/12/20 13:30 Urine Culture - Preliminary Urine,Catheterized Gram Neg Bacilli 11/12/20 11:40 Blood Culture - Preliminary Blood No Growth after 24 hours 11/12/20 11:55 Blood Culture - Preliminary Blood No Growth after 24 hours Assessment and Plan (1) Pressure ulcer of left heel, stage 3 Current Visit: Yes Status: Acute Code(s): L89.623 - PRESSURE ULCER OF LEFT HEEL, STAGE 3 SNOMED Code(s): 024889929 (2) Diabetic foot ulcer Current Visit: No Status: Acute Code(s): E11.621 - TYPE 2 DIABETES MELLITUS WITH FOOT ULCER; L97.509 - NON-PRESSURE CHRONIC ULCER OTH PRT UNSP FOOT W UNSP SEVERITY SNOMED Code(s): 207285044 (3) Pressure ulcer of left buttock, stage 2 Current Visit: No Status: Acute Code(s): L89.322 - PRESSURE ULCER OF LEFT BUTTOCK, STAGE 2 SNOMED Code(s): 97441225615047255
[2020-11-14] MEDS: PANTOPRAZOLE 40 MG TABLET PO SCH (10:09)
[2020-11-14] MEDS: VORICONAZOLE 200 MG TAB PO SCH (10:10)
[2020-11-14] MEDS: DONEPEZIL 5 MG TAB PO SCH (10:10)
[2020-11-14] MEDS: ATORVASTATIN 10 MG TAB PO SCH (10:10)
[2020-11-14] MEDS: VANCOMYCIN 125 MG CAPSULE PO SCH ×4 (10:10→20:13)
[2020-11-14] MEDS: POTASSIUM CHLORIDE ER 20 MEQ TAB.ER PO SCH ×2 (10:10→12:37)
[2020-11-14] MEDS: OLANZapine 5 MG TAB PO SCH (10:11)
[2020-11-14 11:46] LABS: Glucose,Whole Blood 35 mg/dL (75-99)
[2020-11-14 11:48] LABS: Glucose,Whole Blood 52 mg/dL (75-99)
[2020-11-14 12:09] LABS: Glucose,Whole Blood 66 mg/dL (75-99)
[2020-11-14 12:13] LABS: Glucose,Whole Blood 49 mg/dL (75-99)
[2020-11-14] MEDS ORDERED: GLUCAGON 1 MG/ML VIAL ONE (12:13)
[2020-11-14] MEDS ORDERED: DEXTROSE 5%-0.45% NACL 1,000 ML IV SCH (12:30)
[2020-11-14 12:37] LABS: Glucose,Whole Blood 70 mg/dL (75-99)
--- NOTE | 2020-11-14 12:55 | P.PN ---
Subjective Progress Note Date: 11/14/20 Principal diagnosis: Sepsis, C. diff colitis Interval history:Patient is 75-year-old female with recent multiple admission to this facility patient has been treated for C. difficile colitis as well as UTI and recently was treated for catheter associated tract infection secondary to Keeley glabrata the patient was brought to [facility] ER this morning chief complaint of generalized weakness that has been progressively getting worse the patient also started having a fever and diarrhea. Patient currently being treated on oral vancomycin as well as ceftriaxone for UTI. 11/14/2020: Patient remains tachycardic, slightly hypotensive. She is complaining of not feeling well. Per nursing staff patient has poor oral intake blood sugars have been low. Patient continues to have diarrhea Objective - Vital Signs Vital signs: Vital Signs Temp 98.0 F 11/14/20 12:20 Pulse 117 H 11/14/20 12:20 Resp 18 11/14/20 12:20 BP 100/60 11/14/20 12:20 Pulse Ox 97 11/14/20 12:20 Intake & Output 11/13/20 11/14/20 11/14/20 18:59 06:59 18:59 Weight 62 kg Other: Voiding Method Diaper Diaper # Voids 1 # Bowel Movements 1 - Constitutional General appearance: Present: average body habitus - EENT Eyes: Present: EOMI, PERRLA ENT: Present: normal oropharynx - Neck Neck: Present: normal ROM - Respiratory Respiratory: bilateral: diminished (Poor respiratory effort) - Cardiovascular Rhythm: regular Heart sounds: normal: S1, S2 - Neurologic Neurologic: Present: CNII-XII intact - Musculoskeletal Musculoskeletal: Present: gait normal - Labs CBC & Chem 7: 11/14/20 06:40 11/14/20 06:40 Labs: Abnormal Lab Results - Last 24 Hours (Table) 11/13/20 11/13/20 11/13/20 Range/Units 12:56 13:10 13:38 WBC (3.8-10.6) k/uL RBC (3.80-5.40) m/uL Hgb (11.4-16.0) gm/dL Hct (34.0-46.0) % MCHC (31.0-37.0) g/dL Plt Count (150-450) k/uL Neutrophils # (1.3-7.7) k/uL Lymphocytes # (1.0-4.8) k/uL Chloride (98-107) mmol/L Carbon Dioxide (22-30) mmol/L BUN (7-17) mg/dL Creatinine (0.52-1.04) mg/dL Glucose (74-99) mg/dL POC Glucose (mg/dL) 65 L 65 L 178 H (75-99) mg/dL Total Bilirubin (0.2-1.3) mg/dL Total Protein (6.3-8.2) g/dL Albumin (3.5-5.0) g/dL 11/13/20 11/13/20 11/13/20 Range/Units 15:27 20:25 20:43 WBC (3.8-10.6) k/uL RBC (3.80-5.40) m/uL Hgb (11.4-16.0) gm/dL Hct (34.0-46.0) % MCHC (31.0-37.0) g/dL Plt Count (150-450) k/uL Neutrophils # (1.3-7.7) k/uL Lymphocytes # (1.0-4.8) k/uL Chloride (98-107) mmol/L Carbon Dioxide (22-30) mmol/L BUN (7-17) mg/dL Creatinine (0.52-1.04) mg/dL Glucose (74-99) mg/dL POC Glucose (mg/dL) 137 H 68 L 69 L (75-99) mg/dL Total Bilirubin (0.2-1.3) mg/dL Total Protein (6.3-8.2) g/dL Albumin (3.5-5.0) g/dL 11/14/20 11/14/20 11/14/20 Range/Units 06:06 06:25 06:40 WBC 18.7 H (3.8-10.6) k/uL RBC 3.47 L (3.80-5.40) m/uL Hgb 10.4 L (11.4-16.0) gm/dL Hct 33.7 L (34.0-46.0) % MCHC 30.9 L (31.0-37.0) g/dL Plt Count 540 H (150-450) k/uL Neutrophils # 17.0 H (1.3-7.7) k/uL Lymphocytes # 0.7 L (1.0-4.8) k/uL Chloride (98-107) mmol/L Carbon Dioxide (22-30) mmol/L BUN (7-17) mg/dL Creatinine (0.52-1.04) mg/dL Glucose (74-99) mg/dL POC Glucose (mg/dL) 33 L 37 L (75-99) mg/dL Total Bilirubin (0.2-1.3) mg/dL Total Protein (6.3-8.2) g/dL Albumin (3.5-5.0) g/dL 11/14/20 11/14/20 11/14/20 Range/Units 06:40 06:46 07:03 WBC (3.8-10.6) k/uL RBC (3.80-5.40) m/uL Hgb (11.4-16.0) gm/dL Hct (34.0-46.0) % MCHC (31.0-37.0) g/dL Plt Count (150-450) k/uL Neutrophils # (1.3-7.7) k/uL Lymphocytes # (1.0-4.8) k/uL Chloride 111 H (98-107) mmol/L Carbon Dioxide 14 L (22-30) mmol/L BUN 39 H (7-17) mg/dL Creatinine 1.88 H (0.52-1.04) mg/dL Glucose 57 L (74-99) mg/dL POC Glucose (mg/dL) 68 L 181 H (75-99) mg/dL Total Bilirubin 0.1 L (0.2-1.3) mg/dL Total Protein 5.6 L (6.3-8.2) g/dL Albumin 2.4 L (3.5-5.0) g/dL 11/14/20 11/14/20 11/14/20 Range/Units 11:42 11:46 11:57 WBC (3.8-10.6) k/uL RBC (3.80-5.40) m/uL Hgb (11.4-16.0) gm/dL Hct (34.0-46.0) % MCHC (31.0-37.0) g/dL Plt Count (150-450) k/uL Neutrophils # (1.3-7.7) k/uL Lymphocytes # (1.0-4.8) k/uL Chloride (98-107) mmol/L Carbon Dioxide (22-30) mmol/L BUN (7-17) mg/dL Creatinine (0.52-1.04) mg/dL Glucose (74-99) mg/dL POC Glucose (mg/dL) 35 L 52 L 66 L (75-99) mg/dL Total Bilirubin (0.2-1.3) mg/dL Total Protein (6.3-8.2) g/dL Albumin (3.5-5.0) g/dL 11/14/20 11/14/20 Range/Units 12:11 12:26 WBC (3.8-10.6) k/uL RBC (3.80-5.40) m/uL Hgb (11.4-16.0) gm/dL Hct (34.0-46.0) % MCHC (31.0-37.0) g/dL Plt Count (150-450) k/uL Neutrophils # (1.3-7.7) k/uL Lymphocytes # (1.0-4.8) k/uL Chloride (98-107) mmol/L Carbon Dioxide (22-30) mmol/L BUN (7-17) mg/dL Creatinine (0.52-1.04) mg/dL Glucose (74-99) mg/dL POC Glucose (mg/dL) 49 L 70 L (75-99) mg/dL Total Bilirubin (0.2-1.3) mg/dL Total Protein (6.3-8.2) g/dL Albumin (3.5-5.0) g/dL Microbiology - Last 24 Hours (Table) 11/12/20 13:30 Urine Culture - Preliminary Urine,Catheterized Gram Neg Bacilli 11/12/20 11:40 Blood Culture - Preliminary Blood No Growth after 24 hours 11/12/20 11:55 Blood Culture - Preliminary Blood No Growth after 24 hours Assessment and Plan Assessment: 1. Acute C. diff colitis, not hospital-acquired, unknown etiology -Infectious disease team following. Patient is currently on oral vancomycin. Continue with IV fluids, supportive care patient continues to complain of diarrhea 2. Acute UTI E. coli- -patient's urine catheterized sample is growing gram-negative bacilli. I started patient on IV Rocephin. We'll wait for further recommendations from infectious disease 3. Sepsis without septic shock secondary to acute C. diff and with hypotension: -Patient's blood pressures are borderline maintain map of 65. Patient's IV fluids have been changed to D5 half normal saline secondary to patient's hypotension as well as hypoglycemia due to her poor intake. 4. Hypovolemia: -treatment plan as above 5. Acute kidney injury secondary to hypovolemia: -Baseline creatinine function is currently unknown. We'll continue with IV fluid hydration and avoid nephrotoxic agents patient's renal function remains stable at 1.88 which is improved from her previous creatinine of 2.3 yesterday 6. Diabetes type 2- -Patient is currently hypoglycemic with poor oral intake. Patient has been started on treatment with D5 half normal saline due to persistent hypoglycemia. Patient remains on insulin sliding scale nutritional team has been consulted 7. Dementia unspecified type without behavioral changes: -Continue Aricept and olanzapine 8. Hyperlipidemia: -Continue statin 9. GERD without esophagitis: -Continue Carafate, hold Protonix in the setting of C. diff. 10. Weakness: -Consult PTOT DVT prophylaxis: SCDs Disposition: Pending clinical progression (1) C. difficile colitis Current Visit: Yes Status: Acute Code(s): A04.72 - ENTEROCOLITIS D/T CLOSTRIDIUM DIFFICILE, NOT SPCF RECUR SNOMED Code(s): 114009358 (2) Sepsis Current Visit: Yes Status: Acute Code(s): A41.9 - SEPSIS, UNSPECIFIED ORGANISM SNOMED Code(s): 93929155 (3) UTI (urinary tract infection) Current Visit: Yes Status: Acute Code(s): N39.0 - URINARY TRACT INFECTION, SITE NOT SPECIFIED SNOMED Code(s): 90573405 (4) CADE (acute kidney injury) Current Visit: No Status: Acute Code(s): N17.9 - ACUTE KIDNEY FAILURE, UNSPECIFIED SNOMED Code(s): 68089978 (5) Acute pulmonary edema Current Visit: No Status: Acute Code(s): J81.0 - ACUTE PULMONARY EDEMA SNOMED Code(s): 74175328
[2020-11-14] MEDS: COLLAGENASE 250 UNIT/GM OINTMENT 30 GM TUBE TOPICAL SCH (13:07)
--- NOTE | 2020-11-14 15:55 | PN ---
PROGRESS NOTE DATE OF SERVICE: 11/14/2020 REASON FOR FOLLOWUP: C difficile colitis and UTI. INTERVAL HISTORY: The patient is afebrile. The patient remains lethargic and is unable to provide any history. No vomiting or any worsening diarrhea reported by nursing staff. PHYSICAL EXAMINATION: Blood pressure is 100/60 with a pulse of 117, temperature 98. She is 97% on room air. GENERAL DESCRIPTION: General description is an elderly female lying in bed in no distress. RESPIRATORY SYSTEM: Unlabored breathing. Clear to auscultation anteriorly. HEART: S1, S2. Regular rate and rhythm. ABDOMEN: Soft. No tenderness. EXTREMITIES: No edema of the feet. LABS: Hemoglobin 12.4, white count 18.7. Urine now showing Gram-negative bacilli. DIAGNOSTIC IMPRESSION AND PLAN: 1. Patient admitted to hospital with intractable diarrhea with concern for Clostridium difficile colitis, covered with vancomycin. 2. Patient also had a positive UA with concern for urinary tract infection. However, the patient's symptoms improved despite getting any treatment for the Gram-negative showing in the urine, and it could be a colonizer. Recommend discontinuation of Rocephin. Continue supportive care. MMODL / IJN: [id number] /
[2020-11-14] MEDS: ACETAMINOPHEN TAB 325 MG TAB PO PRN (16:26)
[2020-11-14 16:58] LABS: Glucose,Whole Blood 36 mg/dL (75-99)
[2020-11-14 17:14] LABS: Glucose,Whole Blood 177 mg/dL (75-99)
[2020-11-14 18:28] LABS: Glucose,Whole Blood 117 mg/dL (75-99)
[2020-11-14 19:42] LABS: Glucose,Whole Blood 42 mg/dL (75-99)
[2020-11-14 20:04] LABS: Glucose,Whole Blood 33 mg/dL (75-99)
[2020-11-14] MEDS: LATANOPROST 0.005% OPHTH DROPS 2.5 ML BTL BOTH EYES SCH (20:14)
[2020-11-14 20:24] LABS: Glucose,Whole Blood 140 mg/dL (75-99)
[2020-11-14] MEDS: METOPROLOL TARTRATE 12.5 MG TAB PO SCH (21:44)
[2020-11-14] MEDS: DEXTROSE 10% IN WATER 1,000 ML with SODIUM CHLORIDE 4MEQ/ML VIAL 153.8 MEQ IV SCH (21:44)
[2020-11-14 21:53] LABS: Glucose,Whole Blood 78 mg/dL (75-99)
[2020-11-14 23:09] LABS: Glucose,Whole Blood 128 mg/dL (75-99)
[2020-11-15] MEDS ORDERED: DEXTROSE 50% SYRINGE 50 ML IVP ONE ×3 (05:56→21:47)
[2020-11-15 05:58] LABS: Glucose,Whole Blood 34 mg/dL (75-99)
[2020-11-15 06:19] LABS: Glucose,Whole Blood 119 mg/dL (75-99)
[2020-11-15] MEDS: SUCRALFATE 1 GM TAB PO SCH ×3 (06:34→18:42)
[2020-11-15 07:40] LABS: Calcium 8.8 mg/dL (8.4-10.2)
[2020-11-15] MEDS: ATORVASTATIN 10 MG TAB PO SCH (09:36)
[2020-11-15] MEDS: OLANZapine 5 MG TAB PO SCH (09:36)
[2020-11-15] MEDS: PANTOPRAZOLE 40 MG TABLET PO SCH (09:36)
[2020-11-15] MEDS: VANCOMYCIN 125 MG CAPSULE PO SCH ×4 (09:36→20:46)
[2020-11-15] MEDS: DONEPEZIL 5 MG TAB PO SCH (09:36)
[2020-11-15] MEDS: METOPROLOL TARTRATE 12.5 MG TAB PO SCH ×2 (09:36→20:45)
[2020-11-15] MEDS: COLLAGENASE 250 UNIT/GM OINTMENT 30 GM TUBE TOPICAL SCH (09:37)
[2020-11-15] MEDS: DEXTROSE 10% IN WATER 1,000 ML with SODIUM CHLORIDE 4MEQ/ML VIAL 153.8 MEQ IV SCH (09:37)
[2020-11-15 11:35] LABS: Glucose,Whole Blood 148 mg/dL (75-99)
--- NOTE | 2020-11-15 13:31 | P.PN ---
Subjective Progress Note Date: 11/15/20 Principal diagnosis: C. diff Interval history:Patient is 75-year-old female with recent multiple admission to this facility patient has been treated for C. difficile colitis as well as UTI and recently was treated for catheter associated tract infection secondary to Keeley glabrata the patient was brought to [facility] ER this morning chief complaint of generalized weakness that has been progressively getting worse the patient also started having a fever and diarrhea. Patient currently being treated on oral vancomycin as well as ceftriaxone for UTI. 11/15/2020: Patient is clinically improved within her symptoms today. Yesterday she was having significant tachycardia and hypoglycemia persistent as well as some hypotension. Today she is more alert and responsive. Her hypoglycemia improved. Her appetite remains poor her diarrhea per nursing staff has impr ricardo. No complaints of chest pain shortness of breath Objective - Vital Signs Vital signs: Vital Signs Temp 98.0 F 11/15/20 12:24 Pulse 118 H 11/15/20 12:24 Resp 16 11/15/20 12:24 BP 100/63 11/15/20 12:24 Pulse Ox 97 11/15/20 12:24 Intake & Output 11/14/20 11/15/20 11/15/20 18:59 06:59 18:59 Intake Total 240 240 240 Balance 240 240 240 Weight 62 kg 66 kg Intake: Oral 240 240 240 Other: Voiding Method Diaper Diaper Diaper # Voids 1 1 # Bowel Movements 2 1 - Exam Constitutional: No acute distress, conversant, pleasant Eyes: Anicteric sclerae, moist conjunctiva, no lid-lag, ENMT: NC/AT,Oropharynx clear, no erythema, exudates Neck:Supple, FROM, no masses, or JVD Lungs: Clear to auscultation, Clear to percussion Cardiovascular: Heart regular in rate and rhythm, No murmurs, gallops, or rubs no peripheral edema Abdominal: Soft Nontender, nom distended, no guarding, no rebound or rigidity, Normoactive bowel sounds No hepatomegaly, No splenomegaly, No palpable mass No abdominal wall hernia noted Skin: Normal temperature, tone, texture, turgor, No induration Extremities:No digital cyanosis No clubbing, Pedal pulses intact and symmetrical Radial pulses intact and symmetrical Normal gait and station, No calf tenderness left he chronic wound Psychiatric: Alert and oriented to person, place and time, Appropriate affect Intact judgement Neuro: Muscles Strength 5/5 in all 4 extremities, Sensation to light touch grossly present throughout, Cranial nerves II-XII grossly intact. No focal sensory deficits - Labs CBC & Chem 7: 11/14/20 06:40 11/15/20 07:00 Labs: Abnormal Lab Results - Last 24 Hours (Table) 11/14/20 11/14/20 11/14/20 Range/Units 16:52 17:12 18:26 Chloride (98-107) mmol/L Carbon Dioxide (22-30) mmol/L BUN (7-17) mg/dL Creatinine (0.52-1.04) mg/dL Glucose (74-99) mg/dL POC Glucose (mg/dL) 36 L 177 H 117 H (75-99) mg/dL 11/14/20 11/14/20 11/14/20 Range/Units 19:41 20:00 20:20 Chloride (98-107) mmol/L Carbon Dioxide (22-30) mmol/L BUN (7-17) mg/dL Creatinine (0.52-1.04) mg/dL Glucose (74-99) mg/dL POC Glucose (mg/dL) 42 L 33 L 140 H (75-99) mg/dL 11/14/20 11/15/20 11/15/20 Range/Units 22:49 05:55 06:18 Chloride (98-107) mmol/L Carbon Dioxide (22-30) mmol/L BUN (7-17) mg/dL Creatinine (0.52-1.04) mg/dL Glucose (74-99) mg/dL POC Glucose (mg/dL) 128 H 34 L 119 H (75-99) mg/dL 11/15/20 11/15/20 Range/Units 07:00 11:33 Chloride 111 H (98-107) mmol/L Carbon Dioxide 18 L (22-30) mmol/L BUN 35 H (7-17) mg/dL Creatinine 1.71 H (0.52-1.04) mg/dL Glucose 66 L (74-99) mg/dL POC Glucose (mg/dL) 148 H (75-99) mg/dL Microbiology - Last 24 Hours (Table) 11/12/20 11:52 Stool Culture - Preliminary Stool 11/12/20 13:30 Urine Culture - Final Urine,Catheterized Escherichia coli 11/12/20 11:40 Blood Culture - Preliminary Blood No Growth after 48 hours 11/12/20 11:55 Blood Culture - Preliminary Blood No Growth after 48 hours Assessment and Plan Assessment: 1. Acute C. diff colitis, not hospital-acquired, unknown etiology -Infectious disease team following. Patient is currently on oral vancomycin. Continue with IV fluids, patient does have improved diarrhea. 2. Abnormal UA- -patient's urine catheterized sample is growing gram-negative bacilli. Infectious disease team is following. Recommendation for her ID is that patient's gram-negative E. coli likely colonization and not representing infection and they are recommending to discontinue IV antibiotics. 3. Sepsis without septic shock secondary to acute C. diff and with hypotension: -Patient's blood pressures are improved today. Continue with IV fluids 4. Metabolic acidosis: -Likely secondary from patient's infectious process noted above as well as persistent diarrhea. We'll start patient on sodium bicarb also check a lactic acid 5. Acute kidney injury secondary to hypovolemia: -Baseline creatinine function is currently unknown. We'll continue with IV fluid hydration and avoid nephrotoxic agents patient's renal function remains stable at 1.88 which is improved from her previous creatinine of 2.3 yesterday 6. Diabetes type 2- -Patient is currently persistent hypoglycemic with poor oral intake. Patient is now on D10 dextrose. We'll continue to monitor 7. Dementia unspecified type without behavioral changes: -Continue Aricept and olanzapine 8. Hyperlipidemia: -Continue statin 9. GERD without esophagitis: -Continue Carafate, hold Protonix in the setting of C. diff. 10. Weakness: -Consult PTOT DVT prophylaxis: SCDs Disposition: Pending clinical progression (1) C. difficile colitis Current Visit: Yes Status: Acute Code(s): A04.72 - ENTEROCOLITIS D/T CLOSTRIDIUM DIFFICILE, NOT SPCF RECUR SNOMED Code(s): 387686525 (2) Sepsis Current Visit: Yes Status: Acute Code(s): A41.9 - SEPSIS, UNSPECIFIED ORGANISM SNOMED Code(s): 92158267 (3) UTI (urinary tract infection) Current Visit: Yes Status: Acute Code(s): N39.0 - URINARY TRACT INFECTION, SITE NOT SPECIFIED SNOMED Code(s): 79878298 (4) CADE (acute kidney injury) Current Visit: No Status: Acute Code(s): N17.9 - ACUTE KIDNEY FAILURE, UNSPECIFIED SNOMED Code(s): 71212987 (5) Acute pulmonary edema Current Visit: No Status: Acute Code(s): J81.0 - ACUTE PULMONARY EDEMA SNOMED Code(s): 69463049
[2020-11-15 13:41] LABS: Glucose,Whole Blood 36 mg/dL (75-99)
[2020-11-15 13:44] LABS: Glucose,Whole Blood 262 mg/dL (75-99)
[2020-11-15] MEDS ORDERED: GLUCAGON 1 MG/ML VIAL IVP STA (13:55)
[2020-11-15 14:30] LABS: Glucose,Whole Blood 97 mg/dL (75-99)
[2020-11-15 15:21] LABS: Glucose,Whole Blood 131 mg/dL (75-99)
--- NOTE | 2020-11-15 15:33 | P.CNPUL ---
History of Present Illness Consult date: 11/15/20 Requesting physician: Bere Washington Reason for consult: other Chief complaint: Sepsis, C. diff colitis, hypoglycemia History of present illness: This is a 75-year-old white female patient who is familiar to our service from previous hospitalization in October 2020 when we were asked to evaluate the patient for a possibility of pulmonary embolism, which was ruled out. Patient was admitted to the hospital on 11/12/2020 with complaints of general weakness. Patient reported fever, and episodes of diarrhea at home. She is a poor historian, and though she understands Egyptian, she relies on her daughter to communicate her needs as she speaks Surinamese. Past medical history is significant for hypertension, hyperlipidemia, diabetes mellitus type 2, coronary artery disease with previous stenting, recent left ankle surgery, urinary tract infections, recent episode of C. diff colitis, recent history of GI bleeding and patient underwent EGD and colonoscopy in October 2020 and was found to have a large duodenal ulcer, gastritis and pancolitis. Patient has developed acute kidney injury during her previous hospitalization. During her last hospitalization as she developed acute hypoxic respiratory failure, pleural effusions, echocardiogram showed mildly impaired EF of 45-50%. Chest x-ray in the emergency department showed a right basilar atelectasis with tiny pleural effusion. Stool for C. diff was positive. Urinalysis showed evidence of a urinary tract infection with large amount of leuks, greater than 182 white blood cells, and many white blood cells in clumps. White count on admission was 13.9, hemoglobin was 11.3. BUN was 37, creatinine is 1.79, sodium was 134, the rest of electrolytes were within normal limits, troponin less than 0.012. Plasma lactic acid was 1.0. Patient was started on oral vancomycin and Flagyl for C. diff colitis, IV Rocephin was started for acute urinary tract infection. She was given IV fluids. Blood cultures have shown no growth, urine cultures positive for E. coli. Culture showed no Salmonella or Shigella, no E.Coli 0157:H7. In the last couple of days, patient has blood sugar has been persistently low, requiring 10% dextrose initiation which is currently infusing at 100 ML per hour. This afternoon the patient's family reported an episode of patient being less responsive, and asked for her blood sugar to be checked which was down to 36. 50% dextrose, and 1 g of glucagon were administered and subsequently her blood sugar came up to 262. Currently awake and alert, her family is at the bedside, she is able to answer simple questions. She did breakfast, although her appetite is not the greatest. She did have 2 episodes of diarrhea today. She is afebrile, she denies any pulmonary complaints, lung sounds are clear, diminished at the bases, room air pulse ox is 97%, current blood pressure is 100/63 she is a bit tachycardic with a rate of 118. Transfer to the ICU was requested in view of persistent hypoglycemia and the need for close glucose monitoring. Review of Systems All systems: negative Constitutional: Reports fatigue, Reports weakness, Denies chills, Denies fever Eyes: denies blurred vision, denies pain Ears, nose, mouth and throat: Denies headache, Denies sore throat Cardiovascular: Denies chest pain, Denies shortness of breath Respiratory: Denies cough Gastrointestinal: Reports diarrhea, Denies abdominal pain, Denies nausea, Denies vomiting Genitourinary: Denies dysuria, Denies hematuria Musculoskeletal: Denies myalgias Integumentary: Denies pruritus, Denies rash Neurological: Reports change in mentation, Reports confusion, Reports weakness, Denies numbness Psychiatric: Denies anxiety, Denies depression Endocrine: Denies fatigue, Denies weight change Past Medical History Past Medical History: Coronary Artery Disease (CAD), Diabetes Mellitus, Hyperlipidemia, Hypertension History of Any Multi-Drug Resistant Organisms: None Reported Past Surgical History: Cholecystectomy, Heart Catheterization With Stent, Orthopedic Surgery Additional Past Surgical History / Comment(s): hip surgery, cataract sx, left ankle surgery 2020 Past Anesthesia/Blood Transfusion Reactions: No Reported Reaction Date of Last Stent Placement:: 2000 Past Psychological History: No Psychological Hx Reported Smoking Status: Never smoker Past Alcohol Use History: None Reported Past Drug Use History: None Reported Medications and Allergies Home Medications Medication Instructions Recorded Confirmed Type Collagenase [Santyl] 1 applic TOPICAL HS 09/14/20 11/12/20 History Donepezil [Aricept] 5 mg PO DAILY 09/14/20 11/12/20 History Latanoprost/Pf [Latanoprost 0.005% 1 drop BOTH EYES HS 09/14/20 11/12/20 History Eye Drop] OLANZapine [ZyPREXA] 5 mg PO DAILY 09/14/20 11/12/20 History Simvastatin [Zocor] 20 mg PO DAILY 09/14/20 11/12/20 History Cholecalciferol [Vitamin D3 (25 25 mcg PO DAILY 10/09/20 11/12/20 History Mcg = 1000 Iu)] Metoprolol Succinate (ER) [Toprol 200 mg PO DAILY #60 tab.er.24h 10/23/20 11/12/20 Rx XL] Pantoprazole Sodium [Protonix] 40 mg PO BID 30 Days #60 tablet.dr 10/23/20 11/12/20 Rx Sucralfate [Carafate] 1 gm PO AC-TID #90 tab 10/23/20 11/12/20 Rx Acetaminophen Tab [Tylenol] 650 mg PO Q6H PRN 10/26/20 11/12/20 History Glimepiride [Amaryl] 8 mg PO AC-BRKFST 10/26/20 11/12/20 History Pioglitazone [Actos] 30 mg PO DAILY 10/26/20 11/12/20 History Darbepoetin Aba [Aranesp] 40 mcg SQ Q7D 11/12/20 11/12/20 History Furosemide [Lasix] 40 mg PO DIRECTED 11/12/20 11/12/20 History Allergies Allergy/AdvReac Type Severity Reaction Status Date / Time No Known Allergies Allergy Verified 11/12/20 12:02 Physical Exam Vitals: Vital Signs Temp Pulse Resp BP Pulse Ox 11/15/20 14:12 16 11/15/20 12:24 98.0 F 118 H 16 100/63 97 11/15/20 07:51 97.8 F 124 H 16 124/76 96 11/15/20 04:00 98.0 F 105 H 18 133/77 97 11/15/20 02:00 95 18 11/14/20 23:06 97.8 F 95 18 135/71 96 11/14/20 20:00 97.8 F 130 H 18 120/74 97 11/14/20 16:00 98.0 F 109 H 18 99/55 98 Intake and Output 11/14/20 11/15/20 11/15/20 22:59 06:59 14:59 Intake Total 480 240 Balance 480 240 Intake: Oral 480 240 Other: Voiding Method Diaper Diaper Diaper # Voids 0 1 1 # Bowel Movements 1 Weight 62 kg 66 kg GENERAL EXAM: Alert, very pleasant, 75-year-old female on room air with pulse ox of 97%, patient knows limited Egyptian, however she is able to understand Egyptian without any difficulty. comfortable in no apparent distress. Patient's daughter, and other family are at the bedside. Currently on 10% dextrose running at 100 ML per hour HEAD: Normocephalic/atraumatic. EYES: Normal reaction of pupils, equal size. Conjunctiva pink, sclera white. NOSE: Clear with pink turbinates. THROAT: No erythema or exudates. NECK: No masses, no JVD, no thyroid enlargement, no adenopathy. CHEST: No chest wall deformity. Symmetrical expansion. LUNGS: Diminished breath sounds bilaterally, bibasilar crackles CVS: Regular rate and rhythm, normal S1 and S2, no gallops, no murmurs, no rubs ABDOMEN: Soft, nontender. No hepatosplenomegaly, normal bowel sounds, no guarding or rigidity. EXTREMITIES: No clubbing, mild edema, no cyanosis, 2+ pulses and upper and lower extremities. MUSCULOSKELETAL: Muscle strength and tone normal. SPINE: No scoliosis or deformity SKIN: No rashes CENTRAL NERVOUS SYSTEM: Alert and oriented -1. No focal deficits, tone is normal in all 4 extremities. Results - Laboratory Findings CBC and BMP: 11/14/20 06:40 11/15/20 07:00 PT/INR, D-dimer PT 11.3 sec (9.0-12.0) 11/12/20 11:52 INR 1.1 (<1.2) 11/12/20 11:52 Abnormal lab findings: Abnormal Labs 11/12/20 11/12/20 11/12/20 11:50 11:52 11:52 WBC 13.9 H RBC 3.76 L Hgb 11.3 L Hct MCHC RDW Plt Count 496 H MPV Immature Gran # Neutrophils # 12.5 H Lymphocytes # 0.5 L Monocytes # Eosinophils # Sodium 134 L Potassium Chloride Carbon Dioxide BUN 37 H Creatinine 1.79 H Est GFR (CKD-EPI)AfAm Est GFR (CKD-EPI)NonAf Glucose 210 H POC Glucose (mg/dL) Plasma Lactic Acid Lemuel Calcium Total Bilirubin Total Protein Albumin 3.2 L Albumin/Globulin Ratio Urine Appearance Urine Protein Ur Leukocyte Esterase Urine RBC Urine WBC Urine WBC Clumps Ur Squamous Epith Cells Urine Bacteria Urine Mucus Urine Yeast (Budding) C. difficile (EIA) Intrp Positive A 11/12/20 11/12/20 11/12/20 11:52 13:30 17:47 WBC RBC Hgb Hct MCHC RDW Plt Count MPV Immature Gran # Neutrophils # Lymphocytes # Monocytes # Eosinophils # Sodium Potassium Chloride Carbon Dioxide BUN Creatinine Est GFR (CKD-EPI)AfAm Est GFR (CKD-EPI)NonAf Glucose POC Glucose (mg/dL) 190 H Plasma Lactic Acid Lemuel 2.5 H* Calcium Total Bilirubin Total Protein Albumin Albumin/Globulin Ratio Urine Appearance Cloudy H Urine Protein 1+ H Ur Leukocyte Esterase Large H Urine RBC Urine WBC >182 H Urine WBC Clumps Many H Ur Squamous Epith Cells 5 H Urine Bacteria Few H Urine Mucus Urine Yeast (Budding) C. difficile (EIA) Intrp 11/12/20 11/13/20 11/13/20 21:46 02:44 05:18 WBC 12.23 H RBC 3.36 L Hgb 9.4 L Hct 32.1 L MCHC 29.3 L RDW 15.2 H Plt Count MPV 9.4 L Immature Gran # 0.06 H Neutrophils # 10.22 H Lymphocytes # 0.78 L Monocytes # 1.09 H Eosinophils # 0.03 L Sodium Potassium Chloride Carbon Dioxide BUN Creatinine Est GFR (CKD-EPI)AfAm Est GFR (CKD-EPI)NonAf Glucose POC Glucose (mg/dL) 162 H Plasma Lactic Acid Lemuel Calcium Total Bilirubin Total Protein Albumin Albumin/Globulin Ratio Urine Appearance Cloudy H Urine Protein 1+ H Ur Leukocyte Esterase Large H Urine RBC 9 H Urine WBC >182 H Urine WBC Clumps Many H Ur Squamous Epith Cells Urine Bacteria Moderate H Urine Mucus Rare H Urine Yeast (Budding) Moderate H C. difficile (EIA) Intrp 11/13/20 11/13/20 11/13/20 05:18 08:25 08:51 WBC RBC Hgb Hct MCHC RDW Plt Count MPV Immature Gran # Neutrophils # Lymphocytes # Monocytes # Eosinophils # Sodium Potassium 3.4 L Chloride Carbon Dioxide 20.9 L BUN 42.0 H Creatinine 2.3 H Est GFR (CKD-EPI)AfAm 23.5 L Est GFR (CKD-EPI)NonAf 20.3 L Glucose 47 L* POC Glucose (mg/dL) 40 L 145 H Plasma Lactic Acid Lemuel Calcium 8.6 L Total Bilirubin 0.2 L Total Protein 5.4 L Albumin 2.80 L Albumin/Globulin Ratio 1.08 L Urine Appearance Urine Protein Ur Leukocyte Esterase Urine RBC Urine WBC Urine WBC Clumps Ur Squamous Epith Cells Urine Bacteria Urine Mucus Urine Yeast (Budding) C. difficile (EIA) [facility] 11/13/20 11/13/20 11/13/20 10:14 12:33 12:56 WBC RBC Hgb Hct MCHC RDW Plt Count MPV Immature Gran # Neutrophils # Lymphocytes # Monocytes # Eosinophils # Sodium Potassium Chloride Carbon Dioxide BUN Creatinine Est GFR (CKD-EPI)AfAm Est GFR (CKD-EPI)NonAf Glucose POC Glucose (mg/dL) 112 H 56 L 65 L Plasma Lactic Acid Lemuel Calcium Total Bilirubin Total Protein Albumin Albumin/Globulin Ratio Urine Appearance Urine Protein Ur Leukocyte Esterase Urine RBC Urine WBC Urine WBC Clumps Ur Squamous Epith Cells Urine Bacteria Urine Mucus Urine Yeast (Budding) C. difficile (EIA) [facility] 11/13/20 11/13/20 11/13/20 13:10 13:38 15:27 WBC RBC Hgb Hct MCHC RDW Plt Count MPV Immature Gran # Neutrophils # Lymphocytes # Monocytes # Eosinophils # Sodium Potassium Chloride Carbon Dioxide BUN Creatinine Est GFR (CKD-EPI)AfAm Est GFR (CKD-EPI)NonAf Glucose POC Glucose (mg/dL) 65 L 178 H 137 H Plasma Lactic Acid Lemuel Calcium Total Bilirubin Total Protein Albumin Albumin/Globulin Ratio Urine Appearance Urine Protein Ur Leukocyte Esterase Urine RBC Urine WBC Urine WBC Clumps Ur Squamous Epith Cells Urine Bacteria Urine Mucus Urine Yeast (Budding) C. difficile (EIA) [facility] 11/13/20 11/13/20 11/14/20 20:25 20:43 06:06 WBC RBC Hgb Hct MCHC RDW Plt Count MPV Immature Gran # Neutrophils # Lymphocytes # Monocytes # Eosinophils # Sodium Potassium Chloride Carbon Dioxide BUN Creatinine Est GFR (CKD-EPI)AfAm Est GFR (CKD-EPI)NonAf Glucose POC Glucose (mg/dL) 68 L 69 L 33 L Plasma Lactic Acid Lemuel Calcium Total Bilirubin Total Protein Albumin Albumin/Globulin Ratio Urine Appearance Urine Protein Ur Leukocyte Esterase Urine RBC Urine WBC Urine WBC Clumps Ur Squamous Epith Cells Urine Bacteria Urine Mucus Urine Yeast (Budding) C. difficile (EIA) [facility] 11/14/20 11/14/20 11/14/20 06:25 06:40 06:40 WBC 18.7 H RBC 3.47 L Hgb 10.4 L Hct 33.7 L MCHC 30.9 L RDW Plt Count 540 H MPV Immature Gran # Neutrophils # 17.0 H Lymphocytes # 0.7 L Monocytes # Eosinophils # Sodium Potassium Chloride 111 H Carbon Dioxide 14 L BUN 39 H Creatinine 1.88 H Est GFR (CKD-EPI)AfAm Est GFR (CKD-EPI)NonAf Glucose 57 L POC Glucose (mg/dL) 37 L Plasma Lactic Acid Lemuel Calcium Total Bilirubin 0.1 L Total Protein 5.6 L Albumin 2.4 L Albumin/Globulin Ratio Urine Appearance Urine Protein Ur Leukocyte Esterase Urine RBC Urine WBC Urine WBC Clumps Ur Squamous Epith Cells Urine Bacteria Urine Mucus Urine Yeast (Budding) C. difficile (EIA) Intrp 11/14/20 11/14/20 11/14/20 06:46 07:03 11:42 WBC RBC Hgb Hct MCHC RDW Plt Count MPV Immature Gran # Neutrophils # Lymphocytes # Monocytes # Eosinophils # Sodium Potassium Chloride Carbon Dioxide BUN Creatinine Est GFR (CKD-EPI)AfAm Est GFR (CKD-EPI)NonAf Glucose POC Glucose (mg/dL) 68 L 181 H 35 L Plasma Lactic Acid Lemuel Calcium Total Bilirubin Total Protein Albumin Albumin/Globulin Ratio Urine Appearance Urine Protein Ur Leukocyte Esterase Urine RBC Urine WBC Urine WBC Clumps Ur Squamous Epith Cells Urine Bacteria Urine Mucus Urine Yeast (Budding) C. difficile (EIA) Intrp 11/14/20 11/14/20 11/14/20 11:46 11:57 12:11 WBC RBC Hgb Hct MCHC RDW Plt Count MPV Immature Gran # Neutrophils # Lymphocytes # Monocytes # Eosinophils # Sodium Potassium Chloride Carbon Dioxide BUN Creatinine Est GFR (CKD-EPI)AfAm Est GFR (CKD-EPI)NonAf Glucose POC Glucose (mg/dL) 52 L 66 L 49 L Plasma Lactic Acid Lemuel Calcium Total Bilirubin Total Protein Albumin Albumin/Globulin Ratio Urine Appearance Urine Protein Ur Leukocyte Esterase Urine RBC Urine WBC Urine WBC Clumps Ur Squamous Epith Cells Urine Bacteria Urine Mucus Urine Yeast (Budding) C. difficile (EIA) Intrp 11/14/20 11/14/20 11/14/20 12:26 16:52 17:12 WBC RBC Hgb Hct MCHC RDW Plt Count MPV Immature Gran # Neutrophils # Lymphocytes # Monocytes # Eosinophils # Sodium Potassium Chloride Carbon Dioxide BUN Creatinine Est GFR (CKD-EPI)AfAm Est GFR (CKD-EPI)NonAf Glucose POC Glucose (mg/dL) 70 L 36 L 177 H Plasma Lactic Acid Lemuel Calcium Total Bilirubin Total Protein Albumin Albumin/Globulin Ratio Urine Appearance Urine Protein Ur Leukocyte Esterase Urine RBC Urine WBC Urine WBC Clumps Ur Squamous Epith Cells Urine Bacteria Urine Mucus Urine Yeast (Budding) C. difficile (EIA) Intrp 11/14/20 11/14/20 11/14/20 18:26 19:41 20:00 WBC RBC Hgb Hct MCHC RDW Plt Count MPV Immature Gran # Neutrophils # Lymphocytes # Monocytes # Eosinophils # Sodium Potassium Chloride Carbon Dioxide BUN Creatinine Est GFR (CKD-EPI)AfAm Est GFR (CKD-EPI)NonAf Glucose POC Glucose (mg/dL) 117 H 42 L 33 L Plasma Lactic Acid Lemuel Calcium Total Bilirubin Total Protein Albumin Albumin/Globulin Ratio Urine Appearance Urine Protein Ur Leukocyte Esterase Urine RBC Urine WBC Urine WBC Clumps Ur Squamous Epith Cells Urine Bacteria Urine Mucus Urine Yeast (Budding) C. difficile (EIA) Intr 11/14/20 11/14/20 11/15/20 20:20 22:49 05:55 WBC RBC Hgb Hct MCHC RDW Plt Count MPV Immature Gran # Neutrophils # Lymphocytes # Monocytes # Eosinophils # Sodium Potassium Chloride Carbon Dioxide BUN Creatinine Est GFR (CKD-EPI)AfAm Est GFR (CKD-EPI)NonAf Glucose POC Glucose (mg/dL) 140 H 128 H 34 L Plasma Lactic Acid Lemuel Calcium Total Bilirubin Total Protein Albumin Albumin/Globulin Ratio Urine Appearance Urine Protein Ur Leukocyte Esterase Urine RBC Urine WBC Urine WBC Clumps Ur Squamous Epith Cells Urine Bacteria Urine Mucus Urine Yeast (Budding) C. difficile (EIA) [facility] 11/15/20 11/15/20 11/15/20 06:18 07:00 11:33 WBC RBC Hgb Hct MCHC RDW Plt Count MPV Immature Gran # Neutrophils # Lymphocytes # Monocytes # Eosinophils # Sodium Potassium Chloride 111 H Carbon Dioxide 18 L BUN 35 H Creatinine 1.71 H Est GFR (CKD-EPI)AfAm Est GFR (CKD-EPI)NonAf Glucose 66 L POC Glucose (mg/dL) 119 H 148 H Plasma Lactic Acid Lemuel Calcium Total Bilirubin Total Protein Albumin Albumin/Globulin Ratio Urine Appearance Urine Protein Ur Leukocyte Esterase Urine RBC Urine WBC Urine WBC Clumps Ur Squamous Epith Cells Urine Bacteria Urine Mucus Urine Yeast (Budding) C. difficile (EIA) Intrp 11/15/20 11/15/20 13:39 13:44 WBC RBC Hgb Hct MCHC RDW Plt Count MPV Immature Gran # Neutrophils # Lymphocytes # Monocytes # Eosinophils # Sodium Potassium Chloride Carbon Dioxide BUN Creatinine Est GFR (CKD-EPI)AfAm Est GFR (CKD-EPI)NonAf Glucose POC Glucose (mg/dL) 36 L 262 H Plasma Lactic Acid Lemuel Calcium Total Bilirubin Total Protein Albumin Albumin/Globulin Ratio Urine Appearance Urine Protein Ur Leukocyte Esterase Urine RBC Urine WBC Urine WBC Clumps Ur Squamous Epith Cells Urine Bacteria Urine Mucus Urine Yeast (Budding) C. difficile (EIA) Intrp - Diagnostic Findings Chest x-ray: report reviewed, image reviewed Additional studies: EKG, results of the left foot x-ray reviewed Assessment and Plan Plan: Assessment: #1. Acute C. diff colitis, currently on oral vancomycin, ID service is following. Diarrhea has improved #2. Acute urinary tract infection, with urine cultures positive for E. coli, was initially on Rocephin, currently off antibiotics for possibility of colonization. ID service is closely follow #3. Persistent hypoglycemia, possibly related to sepsis, poor oral intake. She is currently on 10% dextrose, with episodes of hypoglycemia and blood sugar of 36 requiring IM glucagon and 50% glucose administration #4. Acute kidney injury related to diarrhea, and ATN #5. Non-anion gap metabolic acidosis related to CADE #6. Recent hospitalization for acute on chronic diastolic CHF exacerbation #7. Recent C. diff colitis #8. Recent history of GI bleeding, status post EGD and colonoscopy, and patient was found to have a large duodenal ulcer #9. Stage III chronic kidney disease #10. Recent history of left ankle fracture and surgery at [facility] in September 2020 #11. Stage II sacral decubitus ulcer and left heel wound stage III #12. Diabetes mellitus type 2 #13. Hypertension #14. Dyslipidemia #15. Previous history of urinary tract infection #16. Lifetime nonsmoker,no history of chronic lung disease Plan: Transfer the patient to the intensive care unit Close glucose monitoring Increased 10% dextrose 150 ML per hour Hemodynamically blood pressure is stable, however she is slightly tachycardic She has been afebrile Repeat blood cultures, lactic acid, cortisol level, and urinalysis has been sent and pending at this time The diarrhea is reportedly better She continues on oral vancomycin She is off all other antibiotics right now per ID service recommendations Will reassess with repeat cultures Not having any pulmonary symptoms Not requiring any oxygen Follow-up chest x-ray in the morning Continue GI and DVT prophylaxis CODE STATUS discussed with the patient's family who wishes to continue with a Full Code status Continue closely follow in the intensive care unit I performed a history & physical examination of the patient and discussed their management with my nurse practitioner, Darlene Vu. I reviewed the nurse practitioner's note and agree with the documented findings and plan of care. Lung sounds are positive for diminished breath sounds throughout the lung post. The findings and the impression was discussed with the patient. I at test to the documentation by the nurse practitioner. Time with Patient: Greater than 30
[2020-11-15 16:10] LABS: Glucose,Whole Blood 129 mg/dL (75-99)
[2020-11-15 17:59] LABS: Glucose,Whole Blood 77 mg/dL (75-99)
[2020-11-15] MEDS: ACETAMINOPHEN TAB 325 MG TAB PO PRN (18:41)
[2020-11-15 19:41] LABS: Glucose,Whole Blood 119 mg/dL (75-99)
[2020-11-15] MEDS ORDERED: SODIUM BICARBONATE TAB 650 MG TAB PO SCH (21:00)
[2020-11-15 21:05] LABS: Amorphous Sediment,Urine Rare /hpf; Appearance,Urine Turbid (Clear); Bacteria,Urine Moderate /hpf; Bilirubin,Urine Negative (Negative); Blood,Urine Trace (Negative); Budding Yeast,Urine Many /hpf; Color,Urine Yellow; Glucose,Urine (UA) Negative (Negative); Ketones,Urine Negative (Negative); Leukocyte Esterase,Urine Large (Negative); Mucus,Urine Rare /hpf; Nitrite,Urine Negative (Negative); Protein,Urine 1+ (Negative); RBC,Urine 54 /hpf (0-5); Specific Gravity,Urine 1.018 (1.001-1.035); Squamous Epithelial Cell,Urine 14 /hpf (0-4); Urobilinogen,Urine <2.0 mg/dL (<2.0); WBC,Urine >182 /hpf (0-5)
[2020-11-15 21:46] LABS: Glucose,Whole Blood 54 mg/dL (75-99)
[2020-11-15] MEDS: LATANOPROST 0.005% OPHTH DROPS 2.5 ML BTL BOTH EYES SCH (22:04)
[2020-11-15 22:06] LABS: Glucose,Whole Blood 143 mg/dL (75-99)
[2020-11-15 23:57] LABS: Glucose,Whole Blood 75 mg/dL (75-99)
[2020-11-16 00:51] LABS: Glucose,Whole Blood 74 mg/dL (75-99)
[2020-11-16 03:28] LABS: Glucose,Whole Blood 74 mg/dL (75-99)
[2020-11-16 04:28] LABS: Basophils # (A) 0.1 k/uL (0-0.2); Basophils % (A) 0 %; Eosinophils # (A) 0.2 k/uL (0-0.7); Eosinophils % (A) 2 %; HCT 35.2 % (34.0-46.0); HGB 10.7 gm/dL (11.4-16.0); Hypochromasia Marked; Lymphocytes # (A) 1.2 k/uL (1.0-4.8); Lymphocytes % (A) 10 %; MCH 29.6 pg (25.0-35.0); MCHC 30.5 g/dL (31.0-37.0); MCV 97.2 fL (80.0-100.0); Mean Platelet Volume 7.1; Monocytes # (A) 0.4 k/uL (0-1.0); Monocytes % (A) 4 %; Neutrophils # (A) 9.4 k/uL (1.3-7.7); Neutrophils % (A) 83 %; Platelet Count 477 k/uL (150-450); RBC 3.63 m/uL (3.80-5.40); RDW 14.8 % (11.5-15.5); WBC 11.3 k/uL (3.8-10.6)
[2020-11-16 04:50] LABS: Albumin 1.9 g/dL (3.5-5.0); Calcium 8.6 mg/dL (8.4-10.2); Potassium 4.1 mmol/L (3.5-5.1); Total Bilirubin 0.1 mg/dL (0.2-1.3); Total Protein 4.5 g/dL (6.3-8.2)
[2020-11-16 05:01] LABS: Glucose,Whole Blood 75 mg/dL (75-99)
[2020-11-16 06:42] LABS: Glucose,Whole Blood 96 mg/dL (75-99)
[2020-11-16] MEDS: ACETAMINOPHEN TAB 325 MG TAB PO PRN ×2 (06:45→15:37)
--- NOTE | 2020-11-16 07:41 | XR ---
EXAMINATION TYPE: XR chest 1V portable DATE OF EXAM: 11/16/2020 CLINICAL HISTORY: Fever and sepsis progress study. TECHNIQUE: Single AP portable supine view of the chest is obtained. COMPARISON: Chest x-ray from 4 days earlier FINDINGS: Low lung volumes with elevated right hemidiaphragm and patchy basilar opacities. Cardiac si lhouette size is stable and within normal limits with atherosclerotic aortic knob. Mild central vascu lar congestion redemonstrated. Osseous structures are intact. IMPRESSION: Patchy right greater than left bibasilar atelectasis and/or infiltrate and likely tiny bi lateral pleural effusions with mild central vascular congestion are all redemonstrated.
[2020-11-16] MEDS: SODIUM CHLORIDE 0.9% 1,000 ML IV ONE (10:50)
[2020-11-16] MEDS: COLLAGENASE 250 UNIT/GM OINTMENT 30 GM TUBE TOPICAL SCH (11:00)
[2020-11-16] MEDS: HYDROCORTISONE SUCCINATE 100 MG/2 ML VIAL IV SCH ×2 (11:03→17:31)
[2020-11-16] MEDS: ATORVASTATIN 10 MG TAB PO SCH (11:04)
[2020-11-16] MEDS: SUCRALFATE 1 GM TAB PO SCH ×3 (11:04→17:31)
[2020-11-16] MEDS: DEXTROSE 10% IN WATER 1,000 ML with SODIUM CHLORIDE 4MEQ/ML VIAL 153.8 MEQ IV SCH ×3 (11:04→17:28)
[2020-11-16] MEDS: METOPROLOL TARTRATE 12.5 MG TAB PO SCH ×2 (11:04→20:47)
[2020-11-16] MEDS: VANCOMYCIN 125 MG CAPSULE PO SCH (11:05)
[2020-11-16] MEDS: OLANZapine 5 MG TAB PO SCH (11:05)
[2020-11-16] MEDS: PANTOPRAZOLE 40 MG TABLET PO SCH (11:05)
[2020-11-16] MEDS: DONEPEZIL 5 MG TAB PO SCH (11:05)
[2020-11-16 11:34] LABS: Glucose,Whole Blood 90 mg/dL (75-99)
--- NOTE | 2020-11-16 12:26 | P.PN ---
Subjective Progress Note Date: 11/16/20 Hospital course: Patient is a 75-year-old female who was admitted to the hospital with lethargy and weakness associated with several episodes of diarrhea. She was found to have acute C. diff colitis and was started on oral vancomycin. Urinalysis was thought to be a contaminate and Rocephin was discontinued per ID recommendation. Patient has history of diabetes and has been hypoglycemic during her stay and is requiring dextrose 10%. White count on admission was 13.9, hemoglobin was 11.3. BUN was 37, creatinine is 1.79, sodium was 134, the rest of electrolytes were within normal limits, troponin less than 0.012. Plasma lactic acid was 1.0. Patient was started on oral vancomycin and Flagyl for C. diff colitis, IV Rocephin was started for acute urinary tract infection. She was given IV fluids. Blood cultures have shown no growth, urine cultures positive for E. coli. Culture showed no Salmonella or Shigella, no E.Coli 0157:H7 Subjective: Patient remains lethargic, remains afebrile, is still on dextrose 10%. She is not a very good historian. Blood pressure has improved and is not on pressors. Objective - Vital Signs Vital signs: Vital Signs Temp 99 F 11/16/20 08:00 Pulse 101 H 11/16/20 11:00 Resp 13 11/16/20 11:00 BP 130/62 11/16/20 11:00 Pulse Ox 96 11/16/20 11:00 Intake & Output 11/15/20 11/16/20 11/16/20 18:59 06:59 18:59 Intake Total 540 1800 1350 Output Total 475 135 Balance 540 1325 1215 Weight 68.5 kg Intake: IV 300 1800 1250 Dextrose 10% in Water 1, 300 1800 750 000 ml @ 150 mls/hr IV . Q6H56M ANNMARIE with Sodium Chloride 4Meq/ml Vial 153 .8 meq Rx#:[id number] Sodium Chloride 0.9% 1, 500 000 ml @ 999 mls/hr IV . Q1H1M ONE Rx#:[id number] Oral 240 100 Output: Urine 475 135 Other: Voiding Method Diaper Indwelling Catheter # Voids 1 # Bowel Movements 1 3 - Exam Constitutional: Lethargic, not a very good historian Eyes: Anicteric sclerae, moist conjunctiva, no lid-lag, ENMT: NC/AT,Oropharynx clear, no erythema, exudates Neck:Supple, FROM, no masses Lungs: Clear to auscultation, Clear to percussion Cardiovascular: Heart regular in rate and rhythm, No murmurs, gallops Abdominal: Soft Nontender, non distended Skin: Normal temperature, tone, texture, turgor, No induration Extremities:No digital cyanosis No clubbing, Pedal pulses intact and symmetrical Radial pulses intact and symmetrical Normal gait and station Psychiatric: Alert Neuro: Muscles Strength 5/5 in all 4 extremities - Labs CBC & Chem 7: 11/16/20 04:07 11/16/20 04:07 Labs: Abnormal Lab Results - Last 24 Hours (Table) 11/15/20 11/15/20 11/15/20 Range/Units 13:39 13:44 15:09 WBC (3.8-10.6) k/uL RBC (3.80-5.40) m/uL Hgb (11.4-16.0) gm/dL MCHC (31.0-37.0) g/dL Plt Count (150-450) k/uL Neutrophils # (1.3-7.7) k/uL Chloride (98-107) mmol/L Carbon Dioxide (22-30) mmol/L BUN (7-17) mg/dL Creatinine (0.52-1.04) mg/dL Glucose (74-99) mg/dL POC Glucose (mg/dL) 36 L 262 H 131 H (75-99) mg/dL Total Bilirubin (0.2-1.3) mg/dL Total Protein (6.3-8.2) g/dL Albumin (3.5-5.0) g/dL Urine Appearance (Clear) Urine Protein (Negative) Urine Blood (Negative) Ur Leukocyte Esterase (Negative) Urine RBC (0-5) /hpf Urine WBC (0-5) /hpf Urine WBC Clumps (None) /hpf Ur Squamous Epith Cells (0-4) /hpf Amorphous Sediment (None) /hpf Urine Bacteria (None) /hpf Urine Mucus (None) /hpf Urine Yeast (Budding) (None) /hpf 11/15/20 11/15/20 11/15/20 Range/Units 16:08 19:39 20:00 WBC (3.8-10.6) k/uL RBC (3.80-5.40) m/uL Hgb (11.4-16.0) gm/dL MCHC (31.0-37.0) g/dL Plt Count (150-450) k/uL Neutrophils # (1.3-7.7) k/uL Chloride (98-107) mmol/L Carbon Dioxide (22-30) mmol/L BUN (7-17) mg/dL Creatinine (0.52-1.04) mg/dL Glucose (74-99) mg/dL POC Glucose (mg/dL) 129 H 119 H (75-99) mg/dL Total Bilirubin (0.2-1.3) mg/dL Total Protein (6.3-8.2) g/dL Albumin (3.5-5.0) g/dL Urine Appearance Turbid H (Clear) Urine Protein 1+ H (Negative) Urine Blood Trace H (Negative) Ur Leukocyte Esterase Large H (Negative) Urine RBC 54 H (0-5) /hpf Urine WBC >182 H (0-5) /hpf Urine WBC Clumps Many H (None) /hpf Ur Squamous Epith Cells 14 H (0-4) /hpf Amorphous Sediment Rare H (None) /hpf Urine Bacteria Moderate H (None) /hpf Urine Mucus Rare H (None) /hpf Urine Yeast (Budding) Many H (None) /hpf 11/15/20 11/15/20 11/16/20 Range/Units 21:45 22:05 00:50 WBC (3.8-10.6) k/uL RBC (3.80-5.40) m/uL Hgb (11.4-16.0) gm/dL MCHC (31.0-37.0) g/dL Plt Count (150-450) k/uL Neutrophils # (1.3-7.7) k/uL Chloride (98-107) mmol/L Carbon Dioxide (22-30) mmol/L BUN (7-17) mg/dL Creatinine (0.52-1.04) mg/dL Glucose (74-99) mg/dL POC Glucose (mg/dL) 54 L 143 H 74 L (75-99) mg/dL Total Bilirubin (0.2-1.3) mg/dL Total Protein (6.3-8.2) g/dL Albumin (3.5-5.0) g/dL Urine Appearance (Clear) Urine Protein (Negative) Urine Blood (Negative) Ur Leukocyte Esterase (Negative) Urine RBC (0-5) /hpf Urine WBC (0-5) /hpf Urine WBC Clumps (None) /hpf Ur Squamous Epith Cells (0-4) /hpf Amorphous Sediment (None) /hpf Urine Bacteria (None) /hpf Urine Mucus (None) /hpf Urine Yeast (Budding) (None) /hpf 11/16/20 11/16/20 11/16/20 Range/Units 03:26 04:07 04:07 WBC 11.3 H (3.8-10.6) k/uL RBC 3.63 L (3.80-5.40) m/uL Hgb 10.7 L (11.4-16.0) gm/dL MCHC 30.5 L (31.0-37.0) g/dL Plt Count 477 H (150-450) k/uL Neutrophils # 9.4 H (1.3-7.7) k/uL Chloride 114 H (98-107) mmol/L Carbon Dioxide 14 L (22-30) mmol/L BUN 31 H (7-17) mg/dL Creatinine 1.43 H (0.52-1.04) mg/dL Glucose 63 L (74-99) mg/dL POC Glucose (mg/dL) 74 L (75-99) mg/dL Total Bilirubin 0.1 L (0.2-1.3) mg/dL Total Protein 4.5 L (6.3-8.2) g/dL Albumin 1.9 L (3.5-5.0) g/dL Urine Appearance (Clear) Urine Protein (Negative) Urine Blood (Negative) Ur Leukocyte Esterase (Negative) Urine RBC (0-5) /hpf Urine WBC (0-5) /hpf Urine WBC Clumps (None) /hpf Ur Squamous Epith Cells (0-4) /hpf Amorphous Sediment (None) /hpf Urine Bacteria (None) /hpf Urine Mucus (None) /hpf Urine Yeast (Budding) (None) /hpf Microbiology - Last 24 Hours (Table) 11/15/20 20:00 Urine Culture - Preliminary Urine,Catheterized 11/12/20 11:52 Stool Culture - Final Stool 11/12/20 11:55 Blood Culture - Preliminary Blood No Growth after 72 hours 11/12/20 11:40 Blood Culture - Preliminary Blood No Growth after 72 hours Assessment and Plan Plan: 1. Acute C. diff colitis, not hospital-acquired, unknown etiology: Continue oral vancomycin. Continue supportive care. Appreciate input from infectious disease 2. Acute UTI unspecified (possible contamination) with cultures growing E. coli: Rocephin discontinued, appreciate ID input. 3. Sepsis without septic shock secondary to acute C. diff and with hypotension: Treat underlying condition, continue IV fluids and antibiotics. Appreciate ICU team's input. 4. Hypovolemia: Continue normal saline. 5. Acute kidney injury secondary to hypovolemia: Serum creatinine 1.7, unknown baseline, continue IV fluid resuscitation and avoid nephrotoxins. Serum creatinine was up to 2.3 now down to 1.4 6. Diabetes type 2 with hypoglycemia: Continue on insulin sliding scale. Continue dextrose-containing solution with 10%. 7. Dementia unspecified type without behavioral changes: Continue Aricept and olanzapine 8. Hyperlipidemia: Continue statin 9. GERD without esophagitis: Continue Carafate, and Protonix 10. Weakness: Consult PTOT 11. Metabolic acidosis, multifactorial in the setting of acute kidney injury and diarrhea: Serum bicarbonate 14, continue bicarbonate by mouth. DVT prophylaxis: SCDs Disposition: Pending clinical progression, currently in the intensive care unit
--- NOTE | 2020-11-16 13:01 | P.PN ---
Subjective Progress Note Date: 11/16/20 Principal diagnosis: Sepsis, C. difficile colitis, recurrent hypoglycemia This is a 75-year-old white female patient who is familiar to our service from previous hospitalization in October 2020 when we were asked to evaluate the patient for a possibility of pulmonary embolism, which was ruled out. Patient was admitted to the hospital on 11/12/2020 with complaints of general weakness. Patient reported fever, and episodes of diarrhea at home. She is a poor historian, and though she understands Slovak, she relies on her daughter to communicate her needs as she speaks K[place]. Past medical history is significant for hypertension, hyperlipidemia, diabetes mellitus type 2, coronary artery disease with previous stenting, recent left ankle surgery, urinary tract infections, recent episode of C. diff colitis, recent history of GI bleeding and patient underwent EGD and colonoscopy in October 2020 and was found to have a large duodenal ulcer, gastritis and pancolitis. Patient has developed acute kidney injury during her previous hospitalization. During her last hospital ization as she developed acute hypoxic respiratory failure, pleural effusions, echocardiogram showed mildly impaired EF of 45-50%. Chest x-ray in the emergency department showed a right basilar atelectasis with tiny pleural effusion. Stool for C. diff was positive. Urinalysis showed evidence of a urinary tract infection with large amount of leuks, greater than 182 white blood cells, and many white blood cells in clumps. White count on admission was 13.9, hemoglobin was 11.3. BUN was 37, creatinine is 1.79, sodium was 134, the rest of electrolytes were within normal limits, troponin less than 0.012. Plasma lactic acid was 1.0. Patient was started on oral vancomycin and Flagyl for C. diff colitis, IV Rocephin was started for acute urinary tract infection. She was given IV fluids. Blood cultures have shown no growth, urine cultures positive for E. coli. Culture showed no Salmonella or Shigella, no E.Coli 0157:H7. In the last couple of days, patient has blood sugar has been pers istently low, requiring 10% dextrose initiation which is currently infusing at 100 ML per hour. This afternoon the patient's family reported an episode of patient being less responsive, and asked for her blood sugar to be checked which was down to 36. 50% dextrose, and 1 g of glucagon were administered and subsequently her blood sugar came up to 262. Currently awake and alert, her family is at the bedside, she is able to answer simple questions. She did breakfast, although her appetite is not the greatest. She did have 2 episodes of diarrhea today. She is afebrile, she denies any pulmonary complaints, lung sounds are clear, diminished at the bases, room air pulse ox is 97%, current blo od pressure is 100/63 she is a bit tachycardic with a rate of 118. Transfer to the ICU was requested in view of persistent hypoglycemia and the need for close glucose monitoring. Reevaluated today on 11/17/19 patient remains in the ICU, remains on D10 at 150 mL per hour. Continues to show intermittent drops in her blood sugars, patient was also given hydrocortisone. Patient is quite lethargic, but not in any respiratory distress. She is hemodynamically stable, she is in sinus tachycardia rate of 124. Continues to have significant left heel ulcer which is 3+, bone scan was ordered and is pending. Orthopedic consultation was also ordered. Her sodium bicarb today was increased to 650 twice a day. Infectious disease on the case to address antibiotics including her urinary tract infection and what seems to be deep heel ulcer and possible osteomyelitis. Patient is being treated for C. difficile colitis. And now she is being treated for profound hypoglycemic episodes requiring D10 infusion. Patient is on room air, O2 saturation 96%. He was dynamically stable. Patient herself is not a great historian and does not seem to be verbal. WBC count is 11.3 hemoglobin is 10.7. Bicarb is 14 and BUN is 31 creatinine 1.4 Objective - Vital Signs Vital signs: Vital Signs Temp 99 F 11/16/20 08:00 Pulse 101 H 11/16/20 11:00 Resp 13 11/16/20 11:00 BP 130/62 11/16/20 11:00 Pulse Ox 96 11/16/20 11:00 Intake & Output 11/15/20 11/16/20 11/16/20 18:59 06:59 18:59 Intake Total 540 1800 1350 Output Total 475 135 Balance 540 1325 1215 Weight 68.5 kg Intake: IV 300 1800 1250 Dextrose 10% in Water 1, 300 1800 750 000 ml @ 150 mls/hr IV . Q6H56M ANNMARIE with Sodium Chloride 4Meq/ml Vial 153 .8 meq Rx#:[id number] Sodium Chloride 0.9% 1, 500 000 ml @ 999 mls/hr IV . Q1H1M ONE Rx#:[id number] Oral 240 100 Output: Urine 475 135 Other: Voiding Method Diaper Indwelling Catheter # Voids 1 # Bowel Movements 1 3 - Exam GENERAL EXAM: Alert, very pleasant, 75-year-old female on room air, lethargic but not in respiratory distress. HEAD: Normocephalic/atraumatic. ENT: PERRLA, EOMI, anicteric, no neck masses, no JVD, no stridor. CHEST: No chest wall deformity. Symmetrical expansion. LUNGS: Diminished breath sounds bilaterally, bibasilar crackles CVS: Regular rate and rhythm, normal S1 and S2, no gallops, no murmurs, no rubs ABDOMEN: Soft, nontender. No hepatosplenomegaly, normal bowel sounds, no guarding or rigidity. EXTREMITIES: No clubbing, mild edema, no cyanosis, 2+ pulses and upper and lower extremities. Left heel ulcer is noted, rather deep, MUSCULOSKELETAL: Muscle strength and tone normal. SKIN: Deep left heel ulcer is noted. Patient supposedly has a stage II sacral decubitus. According to nurses on the case. CENTRAL NERVOUS SYSTEM: Lethargic, oriented -1. No focal deficits, tone is normal in all 4 extremities. - Labs CBC & Chem 7: 11/16/20 04:07 11/16/20 04:07 Labs: Abnormal Lab Results - Last 24 Hours (Table) 11/15/20 11/15/20 11/15/20 Range/Units 13:39 13:44 15:09 WBC (3.8-10.6) k/uL RBC (3.80-5.40) m/uL Hgb (11.4-16.0) gm/dL MCHC (31.0-37.0) g/dL Plt Count (150-450) k/uL Neutrophils # (1.3-7.7) k/uL Chloride (98-107) mmol/L Carbon Dioxide (22-30) mmol/L BUN (7-17) mg/dL Creatinine (0.52-1.04) mg/dL Glucose (74-99) mg/dL POC Glucose (mg/dL) 36 L 262 H 131 H (75-99) mg/dL Total Bilirubin (0.2-1.3) mg/dL Total Protein (6.3-8.2) g/dL Albumin (3.5-5.0) g/dL Urine Appearance (Clear) Urine Protein (Negative) Urine Blood (Negative) Ur Leukocyte Esterase (Negative) Urine RBC (0-5) /hpf Urine WBC (0-5) /hpf Urine WBC Clumps (None) /hpf Ur Squamous Epith Cells (0-4) /hpf Amorphous Sediment (None) /hpf Urine Bacteria (None) /hpf Urine Mucus (None) /hpf Urine Yeast (Budding) (None) /hpf 11/15/20 11/15/20 11/15/20 Range/Units 16:08 19:39 20:00 WBC (3.8-10.6) k/uL RBC (3.80-5.40) m/uL Hgb (11.4-16.0) gm/dL MCHC (31.0-37.0) g/dL Plt Count (150-450) k/uL Neutrophils # (1.3-7.7) k/uL Chloride (98-107) mmol/L Carbon Dioxide (22-30) mmol/L BUN (7-17) mg/dL Creatinine (0.52-1.04) mg/dL Glucose (74-99) mg/dL POC Glucose (mg/dL) 129 H 119 H (75-99) mg/dL Total Bilirubin (0.2-1.3) mg/dL Total Protein (6.3-8.2) g/dL Albumin (3.5-5.0) g/dL Urine Appearance Turbid H (Clear) Urine Protein 1+ H (Negative) Urine Blood Trace H (Negative) Ur Leukocyte Esterase Large H (Negative) Urine RBC 54 H (0-5) /hpf Urine WBC >182 H (0-5) /hpf Urine WBC Clumps Many H (None) /hpf Ur Squamous Epith Cells 14 H (0-4) /hpf Amorphous Sediment Rare H (None) /hpf Urine Bacteria Moderate H (None) /hpf Urine Mucus Rare H (None) /hpf Urine Yeast (Budding) Many H (None) /hpf 11/15/20 11/15/20 11/16/20 Range/Units 21:45 22:05 00:50 WBC (3.8-10.6) k/uL RBC (3.80-5.40) m/uL Hgb (11.4-16.0) gm/dL MCHC (31.0-37.0) g/dL Plt Count (150-450) k/uL Neutrophils # (1.3-7.7) k/uL Chloride (98-107) mmol/L Carbon Dioxide (22-30) mmol/L BUN (7-17) mg/dL Creatinine (0.52-1.04) mg/dL Glucose (74-99) mg/dL POC Glucose (mg/dL) 54 L 143 H 74 L (75-99) mg/dL Total Bilirubin (0.2-1.3) mg/dL Total Protein (6.3-8.2) g/dL Albumin (3.5-5.0) g/dL Urine Appearance (Clear) Urine Protein (Negative) Urine Blood (Negative) Ur Leukocyte Esterase (Negative) Urine RBC (0-5) /hpf Urine WBC (0-5) /hpf Urine WBC Clumps (None) /hpf Ur Squamous Epith Cells (0-4) /hpf Amorphous Sediment (None) /hpf Urine Bacteria (None) /hpf Urine Mucus (None) /hpf Urine Yeast (Budding) (None) /hpf 11/16/20 11/16/20 11/16/20 Range/Units 03:26 04:07 04:07 WBC 11.3 H (3.8-10.6) k/uL RBC 3.63 L (3.80-5.40) m/uL Hgb 10.7 L (11.4-16.0) gm/dL MCHC 30.5 L (31.0-37.0) g/dL Plt Count 477 H (150-450) k/uL Neutrophils # 9.4 H (1.3-7.7) k/uL Chloride 114 H (98-107) mmol/L Carbon Dioxide 14 L (22-30) mmol/L BUN 31 H (7-17) mg/dL Creatinine 1.43 H (0.52-1.04) mg/dL Glucose 63 L (74-99) mg/dL POC Glucose (mg/dL) 74 L (75-99) mg/dL Total Bilirubin 0.1 L (0.2-1.3) mg/dL Total Protein 4.5 L (6.3-8.2) g/dL Albumin 1.9 L (3.5-5.0) g/dL Urine Appearance (Clear) Urine Protein (Negative) Urine Blood (Negative) Ur Leukocyte Esterase (Negative) Urine RBC (0-5) /hpf Urine WBC (0-5) /hpf Urine WBC Clumps (None) /hpf Ur Squamous Epith Cells (0-4) /hpf Amorphous Sediment (None) /hpf Urine Bacteria (None) /hpf Urine Mucus (None) /hpf Urine Yeast (Budding) (None) /hpf Microbiology - Last 24 Hours (Table) 11/15/20 20:00 Urine Culture - Preliminary Urine,Catheterized 11/12/20 11:52 Stool Culture - Final Stool 11/12/20 11:55 Blood Culture - Preliminary Blood No Growth after 72 hours 11/12/20 11:40 Blood Culture - Preliminary Blood No Growth after 72 hours Assessment and Plan Assessment: #1. Acute C. diff colitis, currently on oral vancomycin, ID service is following. Diarrhea has improved #2. Acute urinary tract infection, with urine cultures positive for E. coli, was initially on Rocephin, currently off antibiotics for possibility of colonization. ID service is closely follow #3. Persistent hypoglycemia, possibly related to sepsis, poor oral intake. She is currently on 10% dextrose, with episodes of hypoglycemia and blood sugar of 36 requiring IM glucagon and 50% glucose administration, now on D10 at 150 ML per hour. #4. Acute kidney injury related to diarrhea, and ATN #5. Non-anion gap metabolic acidosis related to CADE #6. Recent hospitalization for acute on chronic diastolic CHF exacerbation #7. Recent C. diff colitis #8. Recent history of GI bleeding, status post EGD and colonoscopy, and patient was found to have a large duodenal ulcer #9. Stage III chronic kidney disease #10. Recent history of left ankle fracture and surgery at [facility] in September 2020 left foot, deep left foot ulcer possible osteomyelitis, will recommend orthopedics evaluation and bone scan. #12. Diabetes mellitus type 2 #13. Hypertension #14. Dyslipidemia #15. Previous history of urinary tract infection #16. Lifetime nonsmoker,no history of chronic lung disease Recommendation: Continue to monitor in the ICU. Continue D10 at 150 ML per hour. Continue hydrocortisone and adjust the dose in a.m. Antibiotics to be addressed by infectious disease on the case. Continue precautions for C. difficile colitis. Continue oral vancomycin. Continue GI and DVT prophylaxis. Overall long-term prognosis is extremely poor and guarded. Time with Patient: Less than 30
--- NOTE | 2020-11-16 13:54 | P.CNOR ---
History of Present Illness - [facility] Consult date: 11/16/20 Consult reason: other (ulcer at left heel with exposed hardware , ) History of present illness: Patient is seen and examined at bedside in the intensive care unit. She is 75-year-old female who is able answer some questions appropriately. She is in the intensive care unit with hypoglycemia and recent sepsis and UTI. She has been making improvement in terms of her sepsis and urinary tract infection. She continues to have some hypoglycemia. She has been working with wound care in regards to a sacral decubitus ulcer as well as a left heel ulcer. Apparently approximately 2 months ago she had an injury and underwent surgical intervention at [facility]. She is unaware of the surgeon's name. She had sustained an injury to her distal talus and underwent a retrograde ankle fusion through her calcaneus and anterior distal tibia. She has been having some trouble with a nonhealing ulcer at the back of her heel over the site of one of her screw insertion sites. She has been in the hospital and has been doing minimal ambulation. Wound care has been working on her heel and on her sacral decubitus ulcer. They felt that there was exposed hardware at the posterior aspect of her left heel. We're consulted in this regard. Review of Systems Currently denies chest pain shortness of breath. She has soreness at the posterior aspect of her heel and at her sacrum. She speaks Romanian but has some difficulty as a historian. However she was accurate in terms of the timing of her recent surgery on her ankle and the place and hospital where he was performed. She does not remember the surgeon's name. Past Medical History Past Medical History: Coronary Artery Disease (CAD), Diabetes Mellitus, Hyperlipidemia, Hypertension History of Any Multi-Drug Resistant Organisms: None Reported Past Surgical History: Cholecystectomy, Heart Catheterization With Stent, Orthopedic Surgery Additional Past Surgical History / Comment(s): hip surgery, cataract sx, left ankle surgery 2020 Past Anesthesia/Blood Transfusion Reactions: No Reported Reaction Date of Last Stent Placement:: 2000 Past Psychological History: No Psychological Hx Reported Smoking Status: Never smoker Past Alcohol Use History: None Reported Past Drug Use History: None Reported Medications and Allergies Home Medications Medication Instructions Recorded Confirmed Type Collagenase [Santyl] 1 applic TOPICAL HS 09/14/20 11/12/20 History Donepezil [Aricept] 5 mg PO DAILY 09/14/20 11/12/20 History Latanoprost/Pf [Latanoprost 0.005% 1 drop BOTH EYES HS 09/14/20 11/12/20 History Eye Drop] OLANZapine [ZyPREXA] 5 mg PO DAILY 09/14/20 11/12/20 History Simvastatin [Zocor] 20 mg PO DAILY 09/14/20 11/12/20 History Cholecalciferol [Vitamin D3 (25 25 mcg PO DAILY 10/09/20 11/12/20 History Mcg = 1000 Iu)] Metoprolol Succinate (ER) [Toprol 200 mg PO DAILY #60 tab.er.24h 10/23/20 11/12/20 Rx XL] Pantoprazole Sodium [Protonix] 40 mg PO BID 30 Days #60 tablet.dr 10/23/20 11/12/20 Rx Sucralfate [Carafate] 1 gm PO AC-TID #90 tab 10/23/20 11/12/20 Rx Acetaminophen Tab [Tylenol] 650 mg PO Q6H PRN 10/26/20 11/12/20 History Glimepiride [Amaryl] 8 mg PO AC-BRKFST 10/26/20 11/12/20 History Pioglitazone [Actos] 30 mg PO DAILY 10/26/20 11/12/20 History Darbepoetin Aba [Aranesp] 40 mcg SQ Q7D 11/12/20 11/12/20 History Furosemide [Lasix] 40 mg PO DIRECTED 11/12/20 11/12/20 History Allergies Allergy/AdvReac Type Severity Reaction Status Date / Time No Known Allergies Allergy Verified 11/12/20 12:02 Physical Examination Osteopathic Statement: *. No significant issues noted on an osteopathic structural exam other than those noted in the History and Physical/Consult. - Ankle & Foot left Ankle appearance: other (there are well-healed incisions at her plantar heel and at her medial distal lower leg. She has a 2 x 2 centimeter by 2 cm deep ulceration at the posterior aspect of her calcaneus. There is exposed hardware at the site.) Foot appearance: other (there is no significant erythema globally on the heel. There is some denuded tissue and skin breakdown at the posterior heel. I'm un able to mobilize her. She is able to move her toes appropriately) Results - Labs Labs: Abnormal Lab Results - Last 24 Hours (Table) 11/15/20 11/15/20 11/15/20 Range/Units 13:44 15:09 16:08 WBC (3.8-10.6) k/uL RBC (3.80-5.40) m/uL Hgb (11.4-16.0) gm/dL MCHC (31.0-37.0) g/dL Plt Count (150-450) k/uL Neutrophils # (1.3-7.7) k/uL Chloride (98-107) mmol/L Carbon Dioxide (22-30) mmol/L BUN (7-17) mg/dL Creatinine (0.52-1.04) mg/dL Glucose (74-99) mg/dL POC Glucose (mg/dL) 262 H 131 H 129 H (75-99) mg/dL Total Bilirubin (0.2-1.3) mg/dL Total Protein (6.3-8.2) g/dL Albumin (3.5-5.0) g/dL Urine Appearance (Clear) Urine Protein (Negative) Urine Blood (Negative) Ur Leukocyte Esterase (Negative) Urine RBC (0-5) /hpf Urine WBC (0-5) /hpf Urine WBC Clumps (None) /hpf Ur Squamous Epith Cells (0-4) /hpf Amorphous Sediment (None) /hpf Urine Bacteria (None) /hpf Urine Mucus (None) /hpf Urine Yeast (Budding) (None) /hpf 11/15/20 11/15/20 11/15/20 Range/Units 19:39 20:00 21:45 WBC (3.8-10.6) k/uL RBC (3.80-5.40) m/uL Hgb (11.4-16.0) gm/dL MCHC (31.0-37.0) g/dL Plt Count (150-450) k/uL Neutrophils # (1.3-7.7) k/uL Chloride (98-107) mmol/L Carbon Dioxide (22-30) mmol/L BUN (7-17) mg/dL Creatinine (0.52-1.04) mg/dL Glucose (74-99) mg/dL POC Glucose (mg/dL) 119 H 54 L (75-99) mg/dL Total Bilirubin (0.2-1.3) mg/dL Total Protein (6.3-8.2) g/dL Albumin (3.5-5.0) g/dL Urine Appearance Turbid H (Clear) Urine Protein 1+ H (Negative) Urine Blood Trace H (Negative) Ur Leukocyte Esterase Large H (Negative) Urine RBC 54 H (0-5) /hpf Urine WBC >182 H (0-5) /hpf Urine WBC Clumps Many H (None) /hpf Ur Squamous Epith Cells 14 H (0-4) /hpf Amorphous Sediment Rare H (None) /hpf Urine Bacteria Moderate H (None) /hpf Urine Mucus Rare H (None) /hpf Urine Yeast (Budding) Many H (None) /hpf 11/15/20 11/16/20 11/16/20 Range/Units 22:05 00:50 03:26 WBC (3.8-10.6) k/uL RBC (3.80-5.40) m/uL Hgb (11.4-16.0) gm/dL MCHC (31.0-37.0) g/dL Plt Count (150-450) k/uL Neutrophils # (1.3-7.7) k/uL Chloride (98-107) mmol/L Carbon Dioxide (22-30) mmol/L BUN (7-17) mg/dL Creatinine (0.52-1.04) mg/dL Glucose (74-99) mg/dL POC Glucose (mg/dL) 143 H 74 L 74 L (75-99) mg/dL Total Bilirubin (0.2-1.3) mg/dL Total Protein (6.3-8.2) g/dL Albumin (3.5-5.0) g/dL Urine Appearance (Clear) Urine Protein (Negative) Urine Blood (Negative) Ur Leukocyte Esterase (Negative) Urine RBC (0-5) /hpf Urine WBC (0-5) /hpf Urine WBC Clumps (None) /hpf Ur Squamous Epith Cells (0-4) /hpf Amorphous Sediment (None) /hpf Urine Bacteria (None) /hpf Urine Mucus (None) /hpf Urine Yeast (Budding) (None) /hpf 11/16/20 11/16/20 Range/Units 04:07 04:07 WBC 11.3 H (3.8-10.6) k/uL RBC 3.63 L (3.80-5.40) m/uL Hgb 10.7 L (11.4-16.0) gm/dL MCHC 30.5 L (31.0-37.0) g/dL Plt Count 477 H (150-450) k/uL Neutrophils # 9.4 H (1.3-7.7) k/uL Chloride 114 H (98-107) mmol/L Carbon Dioxide 14 L (22-30) mmol/L BUN 31 H (7-17) mg/dL Creatinine 1.43 H (0.52-1.04) mg/dL Glucose 63 L (74-99) mg/dL POC Glucose (mg/dL) (75-99) mg/dL Total Bilirubin 0.1 L (0.2-1.3) mg/dL Total Protein 4.5 L (6.3-8.2) g/dL Albumin 1.9 L (3.5-5.0) g/dL Urine Appearance (Clear) Urine Protein (Negative) Urine Blood (Negative) Ur Leukocyte Esterase (Negative) Urine RBC (0-5) /hpf Urine WBC (0-5) /hpf Urine WBC Clumps (None) /hpf Ur Squamous Epith Cells (0-4) /hpf Amorphous Sediment (None) /hpf Urine Bacteria (None) /hpf Urine Mucus (None) /hpf Urine Yeast (Budding) (None) /hpf Microbiology - Last 24 Hours (Table) 11/15/20 20:00 Urine Culture - Preliminary Urine,Catheterized 11/12/20 11:52 Stool Culture - Final Stool 11/12/20 11:55 Blood Culture - Preliminary Blood No Growth after 72 hours 11/12/20 11:40 Blood Culture - Preliminary Blood No Growth after 72 hours H & H 11/12/20 11/13/20 11/14/20 Range/Units 11:52 05:18 06:40 Hgb 11.3 L 9.4 L 10.4 L (11.4-16.0) gm/dL Hct 35.2 32.1 L 33.7 L (34.0-46.0) % 11/16/20 Range/Units 04:07 Hgb 10.7 L (11.4-16.0) gm/dL Hct 35.2 (34.0-46.0) % Coagulation 11/12/20 Range/Units 11:52 INR 1.1 (<1.2) Result Diagrams: 11/16/20 04:07 11/16/20 04:07 - Diagnostic results Ankle/Foot x-ray: report reviewed, image reviewed (x-rays her ankle show a ret rograde ankle fusion to the calcaneus and talus into the distal tibia. There is evidence of a [place] fracture with some healing at the site. There is hardware intact without any evidence of loosening. There is a screw head at the posterior calcaneus which correlates wit), other (the posterior screw at the calcaneus correlates well with the ulceration. The other screw heads appear to be well covered in the soft tissue without any evidence of ulcerations) Assessment and Plan Assessment: Nonhealing ulcer at the left foot status post open reduction internal fixation with retrograde ankle fusion approximately 2 months ago done at [facility] Recent sepsis which is resolving Recent UTI resolving Hypoglycemia Plan: Nonhealing ulcer at the left foot status post open reduction internal fixation with retrograde ankle fusion approximately 2 months ago done at [facility] Recent sepsis which is resolving Recent UTI resolving Hypoglycemia The patient has a nonhealing ulcer at the posterior aspect of her left heel due to immobility and her recent surgical intervention. The nonhealing ulcer is over the top of the exposed deep screw in her calcaneus from her surgical intervention for fusion at her ankle. The rest of the hardware appears to be well maintained and stable. She has had some healing at the site of fracture. The screw head is likely prohibiting appropriate healing at the posterior calc aneus ulceration. I think that it could help her to remove that one screw at the posterior calcaneus to allow further local wound care and this would likely help bolster the healing process and appropriate coverage. I would plan to leave the remaining hardware intact as it appears to be stable. We'll plan for removal of the screw and alignment of the heel ulcer in the operating room tomorrow. We will have a appropriate clearance from medicine. The procedure will be to perform removal of 1 screw from the calcaneus at the ulceration site. I would plan to leave the other hardware intact. The surgery should be less then 30 minutes and could potentially be done with just sedation. I would anticipate limited or minimal blood loss. She will likely need continued local wound care over the area at her posterior heel and at her coccyx. Removal of the hardware would help facilitate healing at the posterior calcaneus. We'll obtain appropriate consent and plan for surgery on November 17
[2020-11-16 14:13] LABS: Glucose,Whole Blood 194 mg/dL (75-99)
--- NOTE | 2020-11-16 16:28 | PN ---
PROGRESS NOTE DATE OF SERVICE: 11/16/2020 REASON FOR FOLLOWUP: 1. C difficile colitis. 2. Possible UTI. 3. Left posterior ankle wound. INTERVAL HISTORY: The patient did have a low-grade fever of 100.6 last evening. The patient has been transferred to ICU because of low blood sugar. The patient is hemodynamically stable, not on any pressor support. The patient did have 6 loose stools last night and 3 this morning per the nursing staff. The patient is more awake and alert. Denies having any chest pain or shortness of breath or cough. No abdominal pain. PHYSICAL EXAMINATION: Blood pressure 131/64 with a pulse of 93, temperature 98. She is 95% on room air. GENERAL DESCRIPTION: General description is an elderly female lying in bed in no distress. RESPIRATORY SYSTEM: Unlabored breathing. Clear to auscultation anteriorly. HEART: S1, S2. Regular rate and rhythm. ABDOMEN: Soft. No tenderness. Left heel wound with slough tissue. Minimal surrounding redness; no drainage. LABS: Hemoglobin is 10.7, white count 11.3, BUN of 31, creatinine 1.43. The patient did have a urine repeated yesterday; still significantly positive. DIAGNOSTIC IMPRESSION AND PLAN: 1. Patient with Clostridium difficile colitis; unfortunately did have significant diarrhea despite being off vancomycin for almost a week. We will switch her over to Dificid. 2. Patient who did have a low-grade fever and a positive UA, possible catheter- associated urinary tract infection. Last urine culture was positive for E coli. Will restart her Rocephin and see the response. 3. Left heel wound. Wait for surgical drainage. Possible removal of the hardware and a deep culture to make sure there is no evidence of any infection that may need to be treated further. Discussed with the RN. Continue with supportive care. MMODL / IJN: [id number] /
[2020-11-16 16:42] LABS: Glucose,Whole Blood 264 mg/dL (75-99)
[2020-11-16] MEDS ORDERED: DEXTROSE 10% IN WATER 1,000 ML with SODIUM CHLORIDE 4MEQ/ML VIAL 153.8 MEQ IV SCH (17:15)
[2020-11-16] MEDS: INSULIN ASPART (NovoLOG) 100 UNIT/ML VIAL SQ SCH ×2 (17:29→20:47)
[2020-11-16] MEDS: traMADol 50 MG TAB PO PRN (17:46)
[2020-11-16 19:55] LABS: Glucose,Whole Blood 360 mg/dL (75-99)
[2020-11-16 20:34] LABS: Glucose,Whole Blood 341 mg/dL (75-99)
[2020-11-16] MEDS: LATANOPROST 0.005% OPHTH DROPS 2.5 ML BTL BOTH EYES SCH (20:47)
[2020-11-16] MEDS: HEPARIN SODIUM,PORCINE/PF 5,000 UNIT/0.5 ML SYRINGE SQ SCH (20:47)
[2020-11-16] MEDS ORDERED: SODIUM BICARBONATE TAB 650 MG TAB PO SCH (21:00)
[2020-11-16] MEDS ORDERED: DEXTROSE 5%-0.45% NACL 1,000 ML IV SCH (21:15)
[2020-11-17] MEDS: traMADol 50 MG TAB PO PRN (00:05)
[2020-11-17] MEDS: HYDROCORTISONE SUCCINATE 100 MG/2 ML VIAL IV SCH ×4 (00:05→23:55)
[2020-11-17 00:10] LABS: Glucose,Whole Blood 201 mg/dL (75-99)
[2020-11-17 03:55] LABS: Glucose,Whole Blood 217 mg/dL (75-99)
[2020-11-17 04:26] LABS: Basophils % (A) 0 %; Eosinophils # (A) 0.1 k/uL (0-0.7); Eosinophils % (A) 1 %; HCT 33.1 % (34.0-46.0); HGB 10.4 gm/dL (11.4-16.0); Hypochromasia Marked; Lymphocytes # (A) 0.6 k/uL (1.0-4.8); Lymphocytes % (A) 7 %; MCH 30.5 pg (25.0-35.0); MCHC 31.4 g/dL (31.0-37.0); MCV 97.2 fL (80.0-100.0); Mean Platelet Volume 7.5; Monocytes # (A) 0.2 k/uL (0-1.0); Monocytes % (A) 2 %; Neutrophils % (A) 90 %; Platelet Count 548 k/uL (150-450); RBC 3.41 m/uL (3.80-5.40); RDW 14.8 % (11.5-15.5); WBC 8.9 k/uL (3.8-10.6)
[2020-11-17 04:42] LABS: Albumin 2.1 g/dL (3.5-5.0); Calcium 8.8 mg/dL (8.4-10.2); Potassium 4.8 mmol/L (3.5-5.1); Total Bilirubin 0.1 mg/dL (0.2-1.3); Total Protein 4.8 g/dL (6.3-8.2)
[2020-11-17 06:58] LABS: Glucose,Whole Blood 270 mg/dL (75-99)
[2020-11-17] MEDS: INSULIN ASPART (NovoLOG) 100 UNIT/ML VIAL SQ SCH ×4 (07:07→20:54)
[2020-11-17] MEDS: SUCRALFATE 1 GM TAB PO SCH ×4 (07:08→19:51)
[2020-11-17] MEDS ORDERED: SODIUM CHLORIDE 0.9% 500 ML 500 ML IV ONE ×2 (09:01→17:24)
[2020-11-17] MEDS ORDERED: SODIUM CHLORIDE 0.9% 1,000 ML IV SCH (09:15)
[2020-11-17] MEDS: DONEPEZIL 5 MG TAB PO SCH (09:24)
[2020-11-17] MEDS: METOPROLOL TARTRATE 12.5 MG TAB PO SCH ×2 (09:24→20:54)
[2020-11-17] MEDS: ATORVASTATIN 10 MG TAB PO SCH (09:25)
[2020-11-17] MEDS: COLLAGENASE 250 UNIT/GM OINTMENT 30 GM TUBE TOPICAL SCH (09:25)
[2020-11-17] MEDS: HEPARIN SODIUM,PORCINE/PF 5,000 UNIT/0.5 ML SYRINGE SQ SCH ×2 (09:26→20:54)
[2020-11-17] MEDS: SODIUM CHLORIDE 0.9% 1,000 ML IV ONE (09:27)
[2020-11-17] MEDS: PANTOPRAZOLE 40 MG TABLET PO SCH (09:27)
[2020-11-17] MEDS: OLANZapine 5 MG TAB PO SCH (09:27)
[2020-11-17] MEDS: FIDAXOMICIN 200 MG TABLET PO SCH ×2 (09:55→20:54)
[2020-11-17 11:36] LABS: Glucose,Whole Blood 145 mg/dL (75-99)
--- NOTE | 2020-11-17 13:35 | P.PN ---
Subjective Progress Note Date: 11/17/20 Principal diagnosis: Sepsis, C. difficile colitis, recurrent hypoglycemia This is a 75-year-old white female patient who is familiar to our service from previous hospitalization in October 2020 when we were asked to evaluate the patient for a possibility of pulmonary embolism, which was ruled out. Patient was admitted to the hospital on 11/12/2020 with complaints of general weakness. Patient reported fever, and episodes of diarrhea at home. She is a poor historian, and though she understands Citizen [place], she relies on her daughter to communicate her needs as she speaks Bangladeshi. Past medical history is significant for hypertension, hyperlipidemia, diabetes mellitus type 2, coronary artery disease with previous stenting, recent left ankle surgery, urinary tract infections, recent episode of C. diff colitis, recent history of GI bleeding and patient underwent EGD and colonoscopy in October 2020 and was found to have a large duodenal ulcer, gastritis and pancolitis. Patient has developed acute kidney injury during her previous hospitalization. During her last hospital ization as she developed acute hypoxic respiratory failure, pleural effusions, echocardiogram showed mildly impaired EF of 45-50%. Chest x-ray in the emergency department showed a right basilar atelectasis with tiny pleural effusion. Stool for C. diff was positive. Urinalysis showed evidence of a urinary tract infection with large amount of leuks, greater than 182 white blood cells, and many white blood cells in clumps. White count on admission was 13.9, hemoglobin was 11.3. BUN was 37, creatinine is 1.79, sodium was 134, the rest of electrolytes were within normal limits, troponin less than 0.012. Plasma lactic acid was 1.0. Patient was started on oral vancomycin and Flagyl for C. diff colitis, IV Rocephin was started for acute urinary tract infection. She was given IV fluids. Blood cultures have shown no growth, urine cultures positive for E. coli. Culture showed no Salmonella or Shigella, no E.Coli 0157:H7. In the last couple of days, patient has blood sugar has been pers istently low, requiring 10% dextrose initiation which is currently infusing at 100 ML per hour. This afternoon the patient's family reported an episode of patient being less responsive, and asked for her blood sugar to be checked which was down to 36. 50% dextrose, and 1 g of glucagon were administered and subsequently her blood sugar came up to 262. Currently awake and alert, her family is at the bedside, she is able to answer simple questions. She did breakfast, although her appetite is not the greatest. She did have 2 episodes of diarrhea today. She is afebrile, she denies any pulmonary complaints, lung sounds are clear, diminished at the bases, room air pulse ox is 97%, current blo od pressure is 100/63 she is a bit tachycardic with a rate of 118. Transfer to the ICU was requested in view of persistent hypoglycemia and the need for close glucose monitoring. Reevaluated today on 11/16/20 patient remains in the ICU, remains on D10 at 150 mL per hour. Continues to show intermittent drops in her blood sugars, patient was also given hydrocortisone. Patient is quite lethargic, but not in any respiratory distress. She is hemodynamically stable, she is in sinus tachycardia rate of 124. Continues to have significant left heel ulcer which is 3+, bone scan was ordered and is pending. Orthopedic consultation was also ordered. Her sodium bicarb today was increased to 650 twice a day. Infectious disease on the case to address antibiotics including her urinary tract infection and what seems to be deep heel ulcer and possible osteomyelitis. Patient is being treated for C. difficile colitis. And now she is being treated for profound hypoglycemic episodes requiring D10 infusion. Patient is on room air, O2 saturation 96%. He was dynamically stable. Patient herself is not a great historian and does not seem to be verbal. WBC count is 11.3 hemoglobin is 10.7. Bicarb is 14 and BUN is 31 creatinine 1.4 Reevaluated today on 11/17/2020, patient remains in the ICU, she is off D10, and her sugars seem to be better controlled now. Patient is on room air with O2 saturation of 96%. She is now on D5 4 5 at 50 mL per hour. Urine output remains marginal, patient will be given more fluid boluses of 0.9 normal saline, and she will be on 0.9 normal saline at 75 mL per hour. Hydrocortisone was cut down from 100 every 8 hours to 50 every 8 hours. Patient is scheduled to have surgery today, and removal of the screw from her left heel. This will be done by orthopedics. Patient is still receiving treatment for her C. difficile colitis using the dificid and oral vancomycin. Reevaluated again by infectious disease and now she is on antibiotics in the form of Rocephin and she had only 1 episode of diarrhea yesterday. WBC count is 8.9 hemoglobin is 10.4. Elec trolytes are normal bicarb remains low at 15 and the patient is on oral bicarb. BUN is 30 creatinine 1.31. Objective - Vital Signs Vital signs: Vital Signs Temp 98.3 F 11/17/20 08:00 Pulse 120 H 11/17/20 10:00 Resp 12 11/17/20 10:00 BP 128/72 11/17/20 10:00 Pulse Ox 97 11/17/20 10:00 Intake & Output 11/16/20 11/17/20 11/17/20 18:59 06:59 18:59 Intake Total 2990 725 225 Output Total 359 197 42 Balance 2631 528 183 Weight 69.8 kg Intake: IV 2850 725 225 Dextrose 10% in Water 1, 1800 225 000 ml @ 150 mls/hr IV . Q6H56M ANNMARIE with Sodium Chloride 4Meq/ml Vial 153 .8 meq Rx#:[id number] Dextrose 5%-0.45% NaCl 1, 500 100 000 ml @ 50 mls/hr IV . Q20H ANNMARIE Rx#:[id number] Sodium Chloride 0.9% 1, 75 000 ml @ 75 mls/hr IV . [id number] [facility] Rx#:[id number] Sodium Chloride 0.9% 1, 1000 000 ml @ 999 mls/hr IV . Q1H1M ONE Rx#:[id number] [id number] 1 gm In 50 50 Sodium Chloride 0.9% 50 ml @ 100 mls/hr IVPB Q24HR [facility] Rx#:[id number] Oral 100 Tube Feeding 40 Output: Urine 355 197 42 Stool 4 Other: Voiding Method Indwelling Catheter Indwelling Catheter Indwelling Catheter # Bowel Movements 1 - Exam GENERAL EXAM: Alert, very pleasant, 75-year-old female on room air, more awake today, in no distress. HEAD: Normocephalic/atraumatic. ENT: PERRLA, EOMI, anicteric, no neck masses, no JVD, no stridor. CHEST: No chest wall deformity. Symmetrical expansion. LUNGS: Diminished breath sounds bilaterally, bibasilar crackles CVS: Regular rate and rhythm, normal S1 and S2, no gallops, no murmurs, no rubs ABDOMEN: Soft, nontender. No hepatosplenomegaly, normal bowel sounds, no guarding or rigidity. EXTREMITIES: No clubbing, mild edema, no cyanosis, 2+ pulses and upper and lower extremities. Left heel ulcer is noted, rather deep, MUSCULOSKELETAL: Muscle strength and tone normal. SKIN: Deep left heel ulcer is noted. Scheduled to have screw removed from her left foot today. CENTRAL NERVOUS SYSTEM: Awake, follows simple instructions, patient is nonverbal. Obviously she speaks [place]. And understands [place].. - Labs CBC & Chem 7: 11/17/20 03:56 11/17/20 03:56 Labs: Abnormal Lab Results - Last 24 Hours (Table) 11/12/20 11/16/20 11/16/20 Range/Units 11:52 14:11 16:40 RBC (3.80-5.40) m/uL Hgb (11.4-16.0) gm/dL Hct (34.0-46.0) % Plt Count (150-450) k/uL Neutrophils # (1.3-7.7) k/uL Lymphocytes # (1.0-4.8) k/uL Chloride (98-107) mmol/L Carbon Dioxide (22-30) mmol/L BUN (7-17) mg/dL Creatinine (0.52-1.04) mg/dL Glucose (74-99) mg/dL POC Glucose (mg/dL) 194 H 264 H (75-99) mg/dL Total Bilirubin (0.2-1.3) mg/dL Total Protein (6.3-8.2) g/dL Albumin (3.5-5.0) g/dL Stool Lactoferrin POSITIVE A (NEGATIVE) 11/16/20 11/16/20 11/17/20 Range/Units 19:52 20:32 00:09 RBC (3.80-5.40) m/uL Hgb (11.4-16.0) gm/dL Hct (34.0-46.0) % Plt Count (150-450) k/uL Neutrophils # (1.3-7.7) k/uL Lymphocytes # (1.0-4.8) k/uL Chloride (98-107) mmol/L Carbon Dioxide (22-30) mmol/L BUN (7-17) mg/dL Creatinine (0.52-1.04) mg/dL Glucose (74-99) mg/dL POC Glucose (mg/dL) 360 H 341 H 201 H (75-99) mg/dL Total Bilirubin (0.2-1.3) mg/dL Total Protein (6.3-8.2) g/dL Albumin (3.5-5.0) g/dL Stool Lactoferrin (NEGATIVE) 11/17/20 11/17/20 11/17/20 Range/Units 03:53 03:56 03:56 RBC 3.41 L (3.80-5.40) m/uL Hgb 10.4 L (11.4-16.0) gm/dL Hct 33.1 L (34.0-46.0) % Plt Count 548 H (150-450) k/uL Neutrophils # 8.0 H (1.3-7.7) k/uL Lymphocytes # 0.6 L (1.0-4.8) k/uL Chloride 115 H (98-107) mmol/L Carbon Dioxide 15 L (22-30) mmol/L BUN 30 H (7-17) mg/dL Creatinine 1.31 H (0.52-1.04) mg/dL Glucose 205 H (74-99) mg/dL POC Glucose (mg/dL) 217 H (75-99) mg/dL Total Bilirubin 0.1 L (0.2-1.3) mg/dL Total Protein 4.8 L (6.3-8.2) g/dL Albumin 2.1 L (3.5-5.0) g/dL Stool Lactoferrin (NEGATIVE) 11/17/20 11/17/20 Range/Units 06:57 11:35 RBC (3.80-5.40) m/uL Hgb (11.4-16.0) gm/dL Hct (34.0-46.0) % Plt Count (150-450) k/uL Neutrophils # (1.3-7.7) k/uL Lymphocytes # (1.0-4.8) k/uL Chloride (98-107) mmol/L Carbon Dioxide (22-30) mmol/L BUN (7-17) mg/dL Creatinine (0.52-1.04) mg/dL Glucose (74-99) mg/dL POC Glucose (mg/dL) 270 H 145 H (75-99) mg/dL Total Bilirubin (0.2-1.3) mg/dL Total Protein (6.3-8.2) g/dL Albumin (3.5-5.0) g/dL Stool Lactoferrin (NEGATIVE) Microbiology - Last 24 Hours (Table) 11/15/20 14:43 Blood Culture - Preliminary Blood No Growth after 24 hours 11/12/20 11:55 Blood Culture - Preliminary Blood No Growth after 96 hours 11/12/20 11:40 Blood Culture - Preliminary Blood No Growth after 96 hours Assessment and Plan Assessment: #1. Acute C. diff colitis, currently on oral vancomycin, ID service is following. Diarrhea has improved #2. Acute urinary tract infection, with urine cultures positive for E. coli, back on Rocephin. #3. Persistent hypoglycemia, possibly related to sepsis, poor oral intake. Resolved. #4. Acute kidney injury related to diarrhea, and ATN #5. Non-anion gap metabolic acidosis related to CADE #6. Recent hospitalization for acute on chronic diastolic CHF exacerbation #7. Recent C. diff colitis #8. Recent history of GI bleeding, status post EGD and colonoscopy, and patient was found to have a large duodenal ulcer #9. Stage III chronic kidney disease #10. Recent history of left ankle fracture and surgery at [facility] in September 2020 left foot, deep left foot ulcer possible osteomyelitis, seen by orthopedics in our his sedation, and she is scheduled to have screw removal from her left heel. #12. Diabetes mellitus type 2 #13. Hypertension #14. Dyslipidemia #15. Previous history of urinary tract infection #16. Lifetime nonsmoker,no history of chronic lung disease Recommendation: Continue to monitor in the ICU. Discontinue D10. Cut down the dose of hydrocortisone to 50 3 times a day. Continue Rocephin. Continue treatment for C. difficile colitis/oral vancomycin and dificid Continue hydrocortisone and adjust the dose in a.m. Continue GI and DVT prophylaxis. Consider transferring the patient out of the ICU in the next 24 hours if she continues to do well. Time with Patient: Less than 30
--- NOTE | 2020-11-17 15:35 | NM ---
EXAMINATION TYPE: NM bone 3 phase DATE OF EXAM: 11/17/2020 COMPARISON: NONE HISTORY: Pain left ankle Triple phase bone scintigraphy was performed following the injection of 23.6 mCi Tc 99m MDP. Immedia te images and 3 hours post injection images acquired. FINDINGS: On all 3 phases of the study there is increased radiotracer accumulation involving the left ankle at the distal tibia and talus. Underlying osteomyelitis cannot be excluded. There is degenerative uptake noted about the metatarsophalangeal joints. Degenerative uptake about the right foot and ankle as we ll. IMPRESSION: Increased uptake in all 3 phases of the examination about the left ankle. Underlying osteomyelitis is not excluded although the findings could BE postoperative in nature.
[2020-11-17] MEDS: SODIUM BICARBONATE TAB 650 MG TAB PO SCH ×3 (16:01→20:45)
[2020-11-17 16:36] LABS: Glucose,Whole Blood 205 mg/dL (75-99)
--- NOTE | 2020-11-17 18:07 | PN ---
PROGRESS NOTE DATE OF SERVICE: 11/17/2020 REASON FOR FOLLOWUP: 1. C difficile colitis. 2. UTI. 3. Left heel wound. INTERVAL HISTORY: The patient is afebrile. The patient is more awake and alert. She is breathing comfortably. Denies having any chest pain, shortness of breath or cough. No abdominal pain or reported by the nursing staff. PHYSICAL EXAMINATION: Blood pressure 115/61 with a pulse of 111, temperature 98. She is 95% on room air. GENERAL DESCRIPTION: General description is an elderly female lying in bed in no distress. RESPIRATORY SYSTEM: Unlabored breathing. Clear to auscultation anteriorly. HEART: S1, S2. Regular rate and rhythm. ABDOMEN: Soft. No tenderness. Left heel is currently dressed. No drainage on the dressing. LABS: Hemoglobin is .4, white count normalized to 8.9, BUN of 30, creatinine 1.31. DIAGNOSTIC IMPRESSION AND PLAN: 1. Patient with Clostridium difficile colitis, recurrent. Currently on Dificid. 2. Patient with urinary tract infection. Urine with E coli. Continue with Rocephin. 3. Patient with nonhealing wound to the left heel with abnormal bone scan, question of osteomyelitis or postoperative. Waiting for possible exploration and removal of the hardware as well as deep cultures; and antibiotic on the basis of those cultures. MMODL / IJN: [id number] /
--- NOTE | 2020-11-17 18:15 | P.PN ---
Subjective Progress Note Date: 11/17/20 (delayed charting seen at 1045) Principal diagnosis: diarrhea Patient is a 75 yo female with a hx of DM on oral medications, CKD, HTN, and HLD who presetned with complaints of weakness and diarrhea. On arrival to the ER she was febrile with a temp of 102.9 and tachycardic with a pulse of 148. Initial labs demonstrate a white blood cell count of 13.9, hemoglobin 11.3, platelets 496, glucose 210, creatinine 1.79, and UA with greater than 182 white blood cells. Her C. diff was positive. She was admitted and placed on oral vancomycin and Rocephin. Patient had been diagnosed with C. diff approximately one month ago and this was considered a recurrent infection. Imaging: CXR: Right basilar atelectasis and infiltrate Left foot xray: no acute fracture Bone scan : increased uptake left ankle Patient seen and examined at beside. No chest pain, SOB, some ankle pain, no nausea, only 1 BM since last night. General: non toxic, no distress, appears at stated age Derm: left heal with ulceration to fate and screw base present, no warmth, no odor, no drainage noted, warm, dry Head: atraumatic, normocephalic, symmetric Eyes: EOMI, no lid lag, anicteric sclera Mouth: no lip lesion, mucus membranes moist Cardiovascular: S1S2 reg, no murmur, positive posterior tibial pulse bilateral, Lungs: Decreased bs bilateral, no rhonchi, no rales , no accessory muscle use Abdominal: soft, nontender to palpation, no guarding, no appreciable organomegaly Ext: no gross muscle atrophy, no edema, no contractures Neuro: CN II-XI grossly intact, no focal neuro deficits Psych: Alert, oriented, flat affect Acute C. diff colitis - failed oral vanco on deficid - ID recs Acute urinary tract infection, associated with indwelling chronic Mack catheter, Present on admssion -Mack has been changed - ID recs: rocephin due to recent E coli Diabetes mellitus type 2 with prolonged hypoglycemia - A 1C 6.3 09/21/20 - continue off orals - hypoglycemia resolved and off D10 CKD III metabolic acidosis Hyperchloremia -stop normal saline - sodium bicarb has been increased - baseline 1.4 - avoid nephrotoxic agents Dementia - safe and supportive environment - aricept Dyslipidemia - statin GERD - PPI - Carafate Pressure ulcer left heel stage III, pressure ulcer left buttock stage II - ortho recs apprecaited and plan is for OR today to remove screw and allow healing to occur -Wound care recs -Offloading - Bone scan possible osteo vs post op changes Sepsis without septic shock, resolved CADE secondary to dehydration, resolved Objective - Vital Signs Vital signs: Vital Signs Temp 98 F 11/17/20 12:00 Pulse 104 H 11/17/20 17:00 Resp 17 11/17/20 17:00 BP 121/61 11/17/20 17:00 Pulse Ox 95 11/17/20 17:00 Intake & Output 11/16/20 11/17/20 11/17/20 18:59 06:59 18:59 Intake Total 2990 725 1250 Output Total 359 197 154 Balance 2631 528 1096 Weight 69.8 kg 69.8 kg Intake: IV 2850 725 1250 Dextrose 10% in Water 1, 1800 225 000 ml @ 150 mls/hr IV . Q6H56M ANNMARIE with Sodium Chloride 4Meq/ml Vial 153 .8 meq Rx#:[id number] Dextrose 5%-0.45% NaCl 1, 500 100 000 ml @ 50 mls/hr IV . Q20H [facility] Rx#:[id number] Sodium Chloride 0.9% 1, 1100 000 ml @ 75 mls/hr IV . [id number] [facility] Rx#:[id number] Sodium Chloride 0.9% 1, 1000 000 ml @ 999 mls/hr IV . Q1H1M [facility] Rx#:[id number] cefTRIAXone 1 gm In 50 50 Sodium Chloride 0.9% 50 ml @ 100 mls/hr IVPB Q24HR [facility] Rx#:[id number] Oral 100 Tube Feeding 40 Output: Urine 355 197 154 Stool 4 Other: Voiding Method Indwelling Catheter Indwelling Catheter Indwelling Catheter # Bowel Movements 1 - Labs CBC & Chem 7: 11/17/20 03:56 11/17/20 03:56 Labs: Abnormal Lab Results - Last 24 Hours (Table) 11/16/20 11/16/20 11/17/20 Range/Units 19:52 20:32 00:09 RBC (3.80-5.40) m/uL Hgb (11.4-16.0) gm/dL Hct (34.0-46.0) % Plt Count (150-450) k/uL Neutrophils # (1.3-7.7) k/uL Lymphocytes # (1.0-4.8) k/uL Chloride (98-107) mmol/L Carbon Dioxide (22-30) mmol/L BUN (7-17) mg/dL Creatinine (0.52-1.04) mg/dL Glucose (74-99) mg/dL POC Glucose (mg/dL) 360 H 341 H 201 H (75-99) mg/dL Total Bilirubin (0.2-1.3) mg/dL Total Protein (6.3-8.2) g/dL Albumin (3.5-5.0) g/dL 11/17/20 11/17/20 11/17/20 Range/Units 03:53 03:56 03:56 RBC 3.41 L (3.80-5.40) m/uL Hgb 10.4 L (11.4-16.0) gm/dL Hct 33.1 L (34.0-46.0) % Plt Count 548 H (150-450) k/uL Neutrophils # 8.0 H (1.3-7.7) k/uL Lymphocytes # 0.6 L (1.0-4.8) k/uL Chloride 115 H (98-107) mmol/L Carbon Dioxide 15 L (22-30) mmol/L BUN 30 H (7-17) mg/dL Creatinine 1.31 H (0.52-1.04) mg/dL Glucose 205 H (74-99) mg/dL POC Glucose (mg/dL) 217 H (75-99) mg/dL Total Bilirubin 0.1 L (0.2-1.3) mg/dL Total Protein 4.8 L (6.3-8.2) g/dL Albumin 2.1 L (3.5-5.0) g/dL 11/17/20 11/17/20 11/17/20 Range/Units 06:57 11:35 16:34 RBC (3.80-5.40) m/uL Hgb (11.4-16.0) gm/dL Hct (34.0-46.0) % Plt Count (150-450) k/uL Neutrophils # (1.3-7.7) k/uL Lymphocytes # (1.0-4.8) k/uL Chloride (98-107) mmol/L Carbon Dioxide (22-30) mmol/L BUN (7-17) mg/dL Creatinine (0.52-1.04) mg/dL Glucose (74-99) mg/dL POC Glucose (mg/dL) 270 H 145 H 205 H (75-99) mg/dL Total Bilirubin (0.2-1.3) mg/dL Total Protein (6.3-8.2) g/dL Albumin (3.5-5.0) g/dL Microbiology - Last 24 Hours (Table) 11/15/20 14:43 Blood Culture - Preliminary Blood No Growth after 48 hours 11/12/20 11:52 Stool Culture - Final Stool 11/12/20 11:55 Blood Culture - Preliminary Blood No Growth after 120 hours 11/12/20 11:40 Blood Culture - Preliminary Blood No Growth after 120 hours
[2020-11-17] MEDS ORDERED: PROPOFOL 10 MG/ML 20 ML VIAL IV ONE (18:32)
[2020-11-17] MEDS ORDERED: fentaNYL (PF) 50 MCG/ML 2 ML AMP ONE (18:32)
[2020-11-17] MEDS ORDERED: SODIUM CHLORIDE 0.9% 1,000 ML IV ONE (18:32)
[2020-11-17] MEDS ORDERED: MIDAZOLAM 2 MG/2 ML VIAL ONE (18:32)
[2020-11-17] MEDS ORDERED: HYDROcodone/APAP 5-325MG 1 EACH TAB PO PRN (19:21)
[2020-11-17] MEDS ORDERED: NALOXONE 0.4 MG/ML 1 ML VIAL IV PRN (19:21)
--- NOTE | 2020-11-17 19:34 | P.OP ---
Date of Procedure: 11/17/20 Preoperative Diagnosis: Nonhealing left heel decubitus ulcer Exposed hardware left calcaneus status post retrograde. Fusion of left ankle with internal fixation of the long fracture approximately 2 months out at outside institution Sepsis Hypoglycemia Postoperative Diagnosis: Same Anesthesia: other (Sedation) Pathology: other (Deep bone culture from left calcaneus sent to [facility]) Condition: stable Disposition: ICU Description of Procedure: BRIEF OPERATIVE NOTE Preoperative Diagnosis: Nonhealing left heel decubitus ulcer Exposed hardware left calcaneus status post retrograde. Fusion of left ankle with internal fixation of the long fracture approximately 2 months out at outside institution Sepsis Hypoglycemia Postoperative Diagnosis: Same Procedure: Removal of deep hardware at left calcaneus Irrigation and excisional debridement of left decubitus heel ulcer Deep bony wound culture Surgeon: Dr. Monique Staff Reporter: None Anesthesia: Sedation General anesthesia Estimated blood loss: Less than 10 mL Specimen: Deep bony wound culture sent to [facility] Complications: None apparent Components implanted: None we did remove one screw from her left calcaneus posteriorly Disposition: To intensive care unit. OPERATIVE INDICATIONS The patient has a recent history of left distal the long fracture and underwent open reduction internal fixation with retrograde fusion of her ankle and outside institution approximately 2 months ago. The patient has had a number of medical issues and has been in the intensive care unit with limited mobility. She developed ulcers at her sacrum and over her left heel. Her left heel had decubitus ulcer with exposed hardware posteriorly and we were asked to consult on the case in this regard. The hardware was present and visible at the heel ulcer which was causing severe options with wound healing and potentially causing further infectious issues. Patient did have issues with sepsis and urinary tract infection hypoglycemia and infectious disease and medical service was interested in having the exposed hardware removed. On evaluation and felt that the hardware could be removed that was exposed but we can leave the fixation that was intact and covered appropriately. If she would have to have the other hardware removed she could do that with her initial surgeon who performed the excision at [facility]. I felt that removing the exposed hardware could be of benefit for healing the ulceration. I discussed this with her and her family. I discussed the risk of occasions alternatives and benefits and elected to proceed with removal of the hardware left calcaneus with irrigation and debridement of her left heel ulcer. OPERATIVE SUMMARY After discussing all the risks, patient alternatives and benefits at length, the patient elected to proceed with surgical intervention, signed informed consent, and presented for their procedure. The patient was seen and examined in the preoperative holding area and the surgical site was marked. The patient was given antibiotics and brought to the operating room. The patient was sedated and left on her bed in the supine position. Anesthesia was present constantly to monitor her airway and breathing and sedation appropriately. The patient was positioned on to the on the bed in a supine position with a bump underneath her left gluteal area to expose her left lower extremity appropriately. An appropriate timeout was completed. We were able to prep and drape her left foot appropriately. The left heel was easily identified and ulceration was identified. I did some superficial debridement with gauze and was able expose the screw head itself. I used a starter a screwdriver and remove the exposed calcaneal screw appropriately. He was examined and found to be in total. I did some excisional debridement around the wound which had gross contamination around it. There are some sharp and blackened tissue which was removed with a scalpel as well. This was then deeply and at the level of the bone for deep debridement. There is no gross fluid collection. There is no significant foul odor. A deep culture was taken from inside the calcaneus. This was sent to microbiology. I was able to get good wound margins around the ulceration with the debridement. We then copiously irrigated the area. We took final imaging which showed removal of the appropriate screw from the tear aspect of the calcaneus at the ulceration. It was not able to be closed at the area and I decided to pack the area with iodoform gauze and dry dressing. It was packed and dressed appropriately and a bulky dressing and then placed back in a heel protector boot. The wound was cleaned and dried and dressed with the appropriate dressing. The drapes were broken down. The patient was maintained their hospital bed being careful to maintain their cervical spine and good neutral alignment and position. The patient will be admitted to the hospital intensive care unit and for appropriate postoperative care, continued medical management and monitoring. She'll also continue local wound care for her heel and her sacral decubitus ulcer as per wound care team. We will continue to follow them closely about the postoperative course.
[2020-11-17 20:51] LABS: Glucose,Whole Blood 231 mg/dL (75-99)
[2020-11-17] MEDS: LATANOPROST 0.005% OPHTH DROPS 2.5 ML BTL BOTH EYES SCH (20:54)
[2020-11-17 21:24] LABS: Basophils # (A) 0.1 k/uL (0-0.2); Basophils % (A) 1 %; Eosinophils % (A) 0 %; HCT 35.4 % (34.0-46.0); HGB 10.5 gm/dL (11.4-16.0); Hypochromasia Marked; Lymphocytes # (A) 1.3 k/uL (1.0-4.8); Lymphocytes % (A) 9 %; MCH 29.3 pg (25.0-35.0); MCHC 29.7 g/dL (31.0-37.0); MCV 98.5 fL (80.0-100.0); Macrocytosis Slight; Mean Platelet Volume 7.7; Monocytes # (A) 0.7 k/uL (0-1.0); Monocytes % (A) 5 %; Neutrophils # (A) 12.1 k/uL (1.3-7.7); Neutrophils % (A) 84 %; Platelet Count 602 k/uL (150-450); RBC 3.59 m/uL (3.80-5.40); RDW 15.3 % (11.5-15.5); WBC 14.4 k/uL (3.8-10.6)
--- NOTE | 2020-11-17 21:30 | XR ---
EXAMINATION TYPE: XR foot limited LT DATE OF EXAM: 11/17/2020 COMPARISON: NONE HISTORY: Screw removal TECHNIQUE: 2 views FINDINGS: There is intramedullary smooth in the distal tibia extending into the calcaneus related to fus ion surgery. Metatarsals appear intact. There is osteopenia. There is fracture of the distal fibula w ithout significant displacement. IMPRESSION: Hindfoot fusion surgery. No focal bone destruction.
[2020-11-18 04:37] LABS: HCT 36.9 % (34.0-46.0); HGB 10.7 gm/dL (11.4-16.0); Hypochromasia Marked; MCH 29.5 pg (25.0-35.0); MCHC 28.9 g/dL (31.0-37.0); Macrocytosis Slight; Mean Platelet Volume 7.4; Platelet Count 556 k/uL (150-450); RBC 3.62 m/uL (3.80-5.40); RDW 15.1 % (11.5-15.5); WBC 15.5 k/uL (3.8-10.6)
[2020-11-18 05:00] LABS: Calcium 8.9 mg/dL (8.4-10.2); Magnesium 1.7 mg/dL (1.6-2.3); Potassium 4.5 mmol/L (3.5-5.1)
[2020-11-18 05:54] LABS: Glucose,Whole Blood 94 mg/dL (75-99)
[2020-11-18] MEDS: INSULIN ASPART (NovoLOG) 100 UNIT/ML VIAL SQ SCH ×4 (06:11→20:57)
[2020-11-18] MEDS: SUCRALFATE 1 GM TAB PO SCH ×3 (06:29→18:31)
[2020-11-18] MEDS: HYDROCORTISONE SUCCINATE 100 MG/2 ML VIAL IV SCH ×2 (08:13→20:57)
[2020-11-18] MEDS: ATORVASTATIN 10 MG TAB PO SCH (08:14)
[2020-11-18] MEDS: HEPARIN SODIUM,PORCINE/PF 5,000 UNIT/0.5 ML SYRINGE SQ SCH ×2 (08:14→20:57)
[2020-11-18] MEDS: METOPROLOL TARTRATE 12.5 MG TAB PO SCH ×2 (08:14→20:57)
[2020-11-18] MEDS: SODIUM BICARBONATE TAB 650 MG TAB PO SCH ×3 (08:14→20:59)
[2020-11-18] MEDS: PANTOPRAZOLE 40 MG TABLET PO SCH (08:15)
[2020-11-18] MEDS: FIDAXOMICIN 200 MG TABLET PO SCH ×2 (08:16→20:57)
[2020-11-18] MEDS: DONEPEZIL 5 MG TAB PO SCH (08:17)
[2020-11-18] MEDS: COLLAGENASE 250 UNIT/GM OINTMENT 30 GM TUBE TOPICAL SCH (08:18)
[2020-11-18] MEDS: OLANZapine 5 MG TAB PO SCH (08:18)
[2020-11-18 11:27] LABS: Glucose,Whole Blood 157 mg/dL (75-99)
--- NOTE | 2020-11-18 11:27 | P.PN ---
Subjective Progress Note Date: 11/18/20 Principal diagnosis: Severe sepsis, C. difficile colitis, recurrent hypoglycemia, UTI This is a 75-year-old white female patient who is familiar to our service from previous hospitalization in October 2020 when we were asked to evaluate the patient for a possibility of pulmonary embolism, which was ruled out. Patient was admitted to the hospital on 11/12/2020 with complaints of general weakness. Patient reported fever, and episodes of diarrhea at home. She is a poor histor jessica, and though she understands Niuean, she relies on her daughter to communicate her needs as she speaks Argentine. Past medical history is significant for hypertension, hyperlipidemia, diabetes mellitus type 2, coronary artery disease with previous stenting, recent left ankle surgery, urinary tract infections, recent episode of C. diff colitis, recent history of GI bleeding and patient underwent EGD and colonoscopy in October 2020 and was found to have a large duodenal ulcer, gastritis and pancolitis. Patient has developed acute kidney injury during her previous hospitalization. During her last hospitalization as she developed acute hypoxic respiratory failure, pleural effusions, echocardiogram showed mildly impaired EF of 45-50%. Chest x-ray in the emergency department showed a right basilar atelectasis with tiny pleural effusion. Stool for C. diff was positive. Urinalysis showed evidence of a urinary tract infection with large amount of leuks, greater than 182 white blood cells, and many white blood cells in clumps. White count on admission was 13.9, hemoglobin was 11.3. BUN was 37, creatinine is 1.79, sodium was 134, the rest of electrolytes were within normal limits, troponin less than 0.012. Plasma lactic acid was 1.0. Patient was started on oral vancomycin and Flagyl for C. diff colitis, IV Rocephin was started for acute urinary tract infection. She was given IV fluids. Blood cultures have shown no growth, urine cultures positive for E. coli. Culture showed no Salmonella or Shigella, no E.Coli 0157:H7. In the last couple of days, patient has blood sugar has been persistently low, requiring 10% dextrose initiation which is currently infusing at 100 ML per hour. This afternoon the patient's family reported an episode of patient being less responsive, and asked for her blood sugar to be checked which was down to 36. 50% dextrose, and 1 g of glucagon were administered and subsequently her blood sugar came up to 262. Currently awake and alert, her family is at the bedside, she is able to answer simple questions. She did breakfast, although her appetite is not the greatest. She did have 2 episodes of diarrhea today. She is afebrile, she denies any pulmonary complaints, lung sounds are clear, diminished at the bases, room air pulse ox is 97%, current blood pressure is 100/63 she is a bit tachycardic with a rate of 118. Transfer to the ICU was requested in view of persistent hypoglycemia and the need for close glucose monitoring. Reevaluated today on 11/16/20 patient remains in the ICU, remains on D10 at 150 mL per hour. Continues to show intermittent drops in her blood sugars, patient was also given hydrocortisone. Patient is quite lethargic, but not in any respiratory distress. She is hemodynamically stable, she is in sinus t achycardia rate of 124. Continues to have significant left heel ulcer which is 3+, bone scan was ordered and is pending. Orthopedic consultation was also ordered. Her sodium bicarb today was increased to 650 twice a day. Infectious disease on the case to address antibiotics including her urinary tract infection and what seems to be deep heel ulcer and possible osteomyelitis. Patient is being treated for C. difficile colitis. And now she is being treated for profound hypoglycemic episodes requiring D10 infusion. Patient is on room air, O2 saturation 96%. He was dynamically stable. Patient herself is not a great historian and does not seem to be verbal. WBC count is 11.3 hemoglobin is 10.7. Bicarb is 14 and BUN is 31 creatinine 1.4 Reevaluated today on 11/17/2020, patient remains in the ICU, she is off D10, and her sugars seem to be better controlled now. Patient is on room air with O2 saturation of 96%. She is now on D5 4 5 at 50 mL per hour. Urine output remains marginal, patient will be given more fluid boluses of 0.9 normal saline, and she will be on 0.9 normal saline at 75 mL per hour. Hydrocortisone was cut down from 100 every 8 hours to 50 every 8 hours. Patient is scheduled to have surgery today, and removal of the screw from her left heel. This will be done by orthopedics. Patient is still receiving treatment for her C. difficile colitis using the dificid and oral vancomycin. Reevaluated again by infectious disease and now she is on antibiotics in the form of Rocephin and she had only 1 episode of diarrhea yesterday. WBC count is 8.9 hemoglobin is 10.4. Electrolytes are normal bicarb remains low at 15 and the patient is on oral bicarb. BUN is 30 creatinine 1.31. The patient is seen today 11/18/2020 in follow-up in the intensive care unit. She is currently awake and alert in no acute distress. She is afebrile. Maintaining O2 saturations in the mid 90s on room air. Hemodynamically stable. Blood cultures revealed no growth. Urine culture was positive for E. coli. Left foot wound cultures pending. White count 15.5. Hemoglobin 10.7. Sodium 137. Potassium 4.5. Bicarb 13. Creatinine 1.22. Glucose 94. She does have a nonhealing left heel decubitus ulcer. There was exposed hardware in the left calcaneus. Yesterday she had undergone removal of deep hardware at left calcaneus with irrigation and excisional debridement of left decubitus heel ulcer, deep bony wound culture. She remains on ceftriaxone. 0.9 normal saline at 75 ML's per hour. Blood sugars have been more stable. She was having issues with some urinary retention and a indwelling catheter was reinserted. Output adequate. She is on heparin for DVT prophylaxis. Remains on Dificid. Remains on Solu-Cortef. Objective - Vital Signs Vital signs: Vital Signs Temp 98.1 F 11/18/20 08:00 Pulse 118 H 11/18/20 09:00 Resp 12 11/18/20 09:00 BP 143/69 11/18/20 09:00 Pulse Ox 95 11/18/20 09:00 Intake & Output 11/17/20 11/18/20 11/18/20 18:59 06:59 18:59 Intake Total 2024 675 275 Output Total 174 302 226 Balance 1851 373 49 Weight 69.8 kg 66.1 kg Intake: IV 2024 275 Dextrose 5%-0.45% NaCl 1, 100 000 ml @ 50 mls/hr IV . Q20H [facility] Rx#:[id number] Sodium Chloride 0.9% 1, 1175 675 225 000 ml @ 75 mls/hr IV . [id number] [facility] Rx#:[id number] Sodium Chloride 0.9% 500 500 ml 500 ml @ 999 mls/hr IV .Q31M [facility] Rx#:[id number] cefTRIAXone 1 gm In 50 50 Sodium Chloride 0.9% 50 ml @ 100 mls/hr IVPB Q24HR [facility] Rx#:[id number] Output: Urine 174 300 225 Stool 1 Estimated Blood Loss 2 Other: Voiding Method Indwelling Catheter Indwelling Catheter External Catheter # Bowel Movements 1 - Exam GENERAL EXAM: Alert, very pleasant, 75-year-old female on room air, awake and alert, in no distress. HEAD: Normocephalic/atraumatic. ENT: PERRLA, EOMI, anicteric, no neck masses, no JVD, no stridor. CHEST: No chest wall deformity. Symmetrical expansion. LUNGS: Diminished breath sounds bilaterally, bibasilar crackles CVS: Regular rate and rhythm, normal S1 and S2, no gallops, no murmurs, no rubs ABDOMEN: Soft, nontender. No hepatosplenomegaly, normal bowel sounds, no guarding or rigidity. EXTREMITIES: No clubbing, mild edema, no cyanosis, 2+ pulses and upper and lower extremities. Left heel ulcer is noted, rather deep, MUSCULOSKELETAL: Muscle strength and tone normal. SKIN: Deep left heel ulcer is noted. Scheduled to have screw removed from her left foot today. CENTRAL NERVOUS SYSTEM: Awake, follows simple instructions, patient does speak minimal Niuean - Labs CBC & Chem 7: 11/18/20 03:44 11/18/20 03:47 Labs: Abnormal Lab Results - Last 24 Hours (Table) 11/17/20 11/17/20 11/17/20 Range/Units 11:35 16:34 20:01 WBC 14.4 H (3.8-10.6) k/uL RBC 3.59 L (3.80-5.40) m/uL Hgb 10.5 L (11.4-16.0) gm/dL MCV (80.0-100.0) fL MCHC 29.7 L (31.0-37.0) g/dL Plt Count 602 H (150-450) k/uL Neutrophils # 12.1 H (1.3-7.7) k/uL Chloride (98-107) mmol/L Carbon Dioxide (22-30) mmol/L BUN (7-17) mg/dL Creatinine (0.52-1.04) mg/dL Glucose (74-99) mg/dL POC Glucose (mg/dL) 145 H 205 H (75-99) mg/dL 11/17/20 11/18/20 11/18/20 Range/Units 20:50 03:44 03:47 WBC 15.5 H (3.8-10.6) k/uL RBC 3.62 L (3.80-5.40) m/uL Hgb 10.7 L (11.4-16.0) gm/dL MCV 102.0 H (80.0-100.0) fL MCHC 28.9 L (31.0-37.0) g/dL Plt Count 556 H (150-450) k/uL Neutrophils # (1.3-7.7) k/uL Chloride 118 H (98-107) mmol/L Carbon Dioxide 14 L (22-30) mmol/L BUN 33 H (7-17) mg/dL Creatinine 1.22 H (0.52-1.04) mg/dL Glucose 65 L (74-99) mg/dL POC Glucose (mg/dL) 231 H (75-99) mg/dL Microbiology - Last 24 Hours (Table) 11/17/20 19:17 Gram Stain - Preliminary Foot - Left Wound Culture - Preliminary 11/17/20 19:17 Anaerobic Culture - Preliminary Foot - Left 11/15/20 20:00 Urine Culture - Final Urine,Catheterized Keeley glabrata 11/15/20 14:43 Blood Culture - Preliminary Blood No Growth after 48 hours 11/12/20 11:52 Stool Culture - Final Stool 11/12/20 11:55 Blood Culture - Preliminary Blood No Growth after 120 hours 11/12/20 11:40 Blood Culture - Preliminary Blood No Growth after 120 hours Assessment and Plan Assessment: 1 Acute C. diff colitis, currently on Dificid, ID service is following. Diarrhea has improved 2 Acute urinary tract infection, with urine cultures positive for E. coli, back on Rocephin. 3 Persistent hypoglycemia, possibly related to sepsis, poor oral intake. Resolved. 4 Acute kidney injury related to diarrhea, and ATN 5 Non-anion gap metabolic acidosis related to CADE 6 Recent hospitalization for acute on chronic diastolic CHF exacerbation 7 Recent C. diff colitis 8 Recent history of GI bleeding, status post EGD and colonoscopy, and patient was found to have a large duodenal ulcer 9 Stage III chronic kidney disease 10 Recent history of left ankle fracture and surgery at [facility] in September 2020 left foot, deep left foot ulcer possible osteomyelitis, seen by o rthopedics in our his sedation, and she is scheduled to have screw removal from her left heel. 12 Diabetes mellitus type 2 13 Hypertension 14 Dyslipidemia 15 Previous history of urinary tract infection 16 Lifetime nonsmoker,no history of chronic lung disease Plan: The patient was seen and evaluated by Dr. Vergara Decrease Solu-Cortef to 50 mg every 12 hours 2 doses then DC Currently stable from the pulmonary and critical care standpoint Could transfer her out to [facility] floor without telemetry Antibiotics per infectious disease We will follow as needed I, the cosigning physician, performed a history & physical examination of the patient. Lungs sounds are clear. Maintaining good O2 saturations in the 90s on room air. I discussed the assessment and plan of care with my nurse practitioner, Saskia Padilla. I attest to the above note as dictated by her.
--- NOTE | 2020-11-18 13:05 | P.PN ---
Progress Note - Text Progress Note Date: 11/18/20 Orthopedics: History of present illness: Patient is a 75-year-old female who is seen and examined at bedside in the ICU for further evaluation of her left foot and ankle. She is arousable and answer some questions but is a poor historian. She has a history of previous left ankle fusion with internal fixation of the long fracture performed approximately [address] [facility] [place] She is working with vascular surgery and wound care. She's had difficulty with healing and her left heel. She had evidence of exposed left calcaneus hardware and a left decubitus heel ulcer at her left calcaneus status post previous retrograde nailing. The exposed hardware was removed in the operating room yesterday with irrigation and debridement of her left decubitus heel ulcer. Her left foot and ankle was wrapped postoperatively. This dressing is clean, dry, and intact. She is continuing to be seen by multiple medical providers for her other medical diagnoses including urinary tract infection, sepsis, persistent hypoglycemia, acute C. diff colitis, and multiple other medical diagnoses. She continues to be seen by vascular surgery, infectious disease, medicine, wound care, and pulmonology. Physical Exam: Patient is awake, alert, and oriented 3 Vital signs stable Well padded dressing over the left heel is clean, dry, and intact with no active drainage Patient is able to wiggle toes of the left lower extremity without difficulty Neurovascular intact left lower extremity No pain on palpation over the toes left foot No pain with palpation over the left knee Assessment: Status post removal of exposed left calcaneus hardware Status post irrigation debridement of left cubitus heal ulcer History of left ankle fusion with retrograde nail fixation to the calcaneus approximately 2 months ago Urinary tract infection Sepsis Persistent hypoglycemia Acute C. diff colitis Plan: 1. Patient is status post removal of exposed left calcaneus hardware and status post irrigation debridement of left cubitus heal ulcer performed yesterday, 11/17/2020. Currently dressing is intact over her left heel and ankle. She will remain nonweightbearing on the left lower extremity. We discussed patient will continue with wound care and evaluation and treatment with vascular surgery. We are not currently planning for any further invasive treatment in regards to her left heel, foot, or ankle. Patient does have a history of left ankle fusion with retrograde internal fixation to the calcaneus performed approximately [address] Alessandro Rueda at [facility]. We discussed following discharge she should plan to follow up with Dr. Alessandor Rueda for further fracture care and treatment. We will plan to have her follow-up in outpatient setting one time to further assess her wound site. Patient may follow-up with Stepan Brian PA-C or Dr. Tim Monique at [facility] in 1 week following discharge. Patient is clear for discharge from orthopedic standpoint once cleared by multiple other medical providers. 2. Patient will continue be seen by multiple other medical providers including vascular surgery, infectious disease, medicine, wound care, and pulmonology for her significant number of other significant medical diagnoses 3. Patient is strongly encouraged to follow up with Dr. Alessandro Rueda at [facility] for further fracture care and treatment.
[2020-11-18 16:35] LABS: Glucose,Whole Blood 341 mg/dL (75-99)
--- NOTE | 2020-11-18 18:19 | PN ---
PROGRESS NOTE DATE OF SERVICE: 11/18/2020 REASON FOR FOLLOWUP: 1. C difficile colitis. 2. E coli UTI. 3. Left heel wound. INTERVAL HISTORY: The patient is afebrile. The patient is breathing comfortably. The patient is status post I and D of the left heel with removal of the hardware. ID and deep culture which is currently pending. The patient tolerated the procedure. Denies having any chest pain or shortness of breath or cough. The patient's diarrhea has improved. PHYSICAL EXAMINATION: Blood pressure 103/59, pulse of 121, temperature 98.8. She is 97% on room air. GENERAL DESCRIPTION: General description is an elderly female up in the bed in no distress. RESPIRATORY SYSTEM: Unlabored breathing. Clear to auscultation anteriorly. HEART: S1, S2. Regular rate and rhythm. ABDOMEN: Soft. No tenderness. LABS: Hemoglobin is 10.3, white count 15.5. BUN of , creatinine 1.22. Urine repeat is now showing Keeley glabrata. DIAGNOSTIC IMPRESSION AND PLAN: 1. Patient with C difficile colitis; did not respond very well to the vancomycin. He seems to be doing well on the Dificid; to continue. 2. Urinary tract infection with urine now showing Keeley glabrata, previously E coli. Possible colonization with worsening white count. We will discontinue the Rocephin and voriconazole. 3. Patient with left heel nonhealing wound with possible infected hardware which has been discontinued. Will follow those cultures and adjust antibiotic if needed. MMODL / IJN: [id number] /
--- NOTE | 2020-11-18 18:47 | P.PN ---
Subjective Progress Note Date: 11/18/20 Principal diagnosis: diarrhea Patient is a 75 yo female with a hx of DM on oral medications, CKD, HTN, and HLD who presented with complaints of weakness and diarrhea. On arrival to the ER she was febrile with a temp of 102.9 and tachycardic with a pulse of 148. Initial labs demonstrate a white blood cell count of 13.9, hemoglobin 11.3, platelets 496, glucose 210, creatinine 1.79, and UA with greater than 182 white blood cells. Her C. diff was positive. She was admitted and placed on oral vancomycin and Rocephin. Patient had been diagnosed with C. diff approximately one month ago and this was considered a recurrent infection. Imaging: CXR: Right basilar atelectasis and infiltrate Left foot xray: no acute fracture Bone scan : increased uptake left ankle Patient seen and examined at beside. States no turner on admission, still having some left heel pain. No nausea or vomiting. Per nursing failed voiding trial last PM with no urge to urinate General: non toxic, no distress, appears at stated age Derm: Dressing in place over left ankle and foot, no warmth, no odor, no drainage noted, warm, dry Head: atraumatic, normocephalic, symmetric Eyes: EOMI, no lid lag, anicteric sclera Mouth: no lip lesion, mucus membranes moist Cardiovascular: S1S2 reg, no murmur, positive posterior tibial pulse bilateral, Lungs: Decreased bs bilateral, no rhonchi, no rales , no accessory muscle use Abdominal: soft, nontender to palpation, no guarding, no appreciable organomegaly Ext: no gross muscle atrophy, no edema, no contractures Neuro: CN II-XI grossly intact, no focal neuro deficits Psych: Alert, oriented, flat affect Acute C. diff colitis - failed oral vanco on deficid - ID recs Acute urinary tract infection, associated with indwelling chronic Turner catheter, Present on admission -Turner has been changed - ID recs: rocephin due to recent E coli, now with Keeley. Route on voriconazole was decreased. Diabetes mellitus type 2 with prolonged hypoglycemia - A 1C 6.3 09/21/20 - continue off orals - hypoglycemia resolved and off D10 9-steroids are being weaned and will need to monitor for hypoglycemia. CKD III metabolic acidosis Hyperchloremia -stop normal saline - sodium bicarb has been increased - baseline 1.4 - avoid nephrotoxic agents Acidosis -Likely increasing secondary to steroid use doubt secondary to infectious pro cess. Dementia - safe and supportive environment - aricept Dyslipidemia - statin GERD - PPI - Carafate Pressure ulcer left heel stage III, pressure ulcer left buttock stage II - ortho recs apprecaited and plan is for OR today to remove screw and allow healing to occur -Wound care recs -Offloading - Bone scan possible osteo vs post op changes Sepsis without septic shock, resolved CADE secondary to dehydration, resolved Objective - Vital Signs Vital signs: Vital Signs Temp 98.8 F 11/18/20 14:00 Pulse 121 H 11/18/20 14:00 Resp 12 11/18/20 14:00 BP 103/59 11/18/20 14:00 Pulse Ox 97 11/18/20 14:00 Intake & Output 11/17/20 11/18/20 11/18/20 18:59 06:59 18:59 Intake Total 2025 675 725 Output Total 174 302 426 Balance 1851 373 299 Weight 69.8 kg 66.1 kg Intake: IV 5 675 725 Dextrose 5%-0.45% NaCl 1, 100 000 ml @ 50 mls/hr IV . Q20H [facility] Rx#:[id number] Sodium Chloride 0.9% 1, 1175 675 675 000 ml @ 75 mls/hr IV . [id number] [facility] Rx#:[id number] Sodium Chloride 0.9% 500 500 ml 500 ml @ 999 mls/hr IV .Q31M [facility] Rx#:[id number] cefTRIAXone 1 gm In 50 50 Sodium Chloride 0.9% 50 ml @ 100 mls/hr IVPB Q24HR [facility] Rx#:[id number] Output: Urine 174 300 425 Stool 1 Estimated Blood Loss 2 Other: Voiding Method Indwelling Catheter Indwelling Catheter External Catheter # Bowel Movements 1 1 - Labs CBC & Chem 7: 11/18/20 03:44 11/18/20 03:47 Labs: Abnormal Lab Results - Last 24 Hours (Table) 11/17/20 11/17/20 11/18/20 Range/Units 20:01 20:50 03:44 WBC 14.4 H 15.5 H (3.8-10.6) k/uL RBC 3.59 L 3.62 L (3.80-5.40) m/uL Hgb 10.5 L 10.7 L (11.4-16.0) gm/dL MCV 102.0 H (80.0-100.0) fL MCHC 29.7 L 28.9 L (31.0-37.0) g/dL Plt Count 602 H 556 H (150-450) k/uL Neutrophils # 12.1 H (1.3-7.7) k/uL Chloride (98-107) mmol/L Carbon Dioxide (22-30) mmol/L BUN (7-17) mg/dL Creatinine (0.52-1.04) mg/dL Glucose (74-99) mg/dL POC Glucose (mg/dL) 231 H (75-99) mg/dL 11/18/20 11/18/20 11/18/20 Range/Units 03:47 11:26 16:33 WBC (3.8-10.6) k/uL RBC (3.80-5.40) m/uL Hgb (11.4-16.0) gm/dL MCV (80.0-100.0) fL MCHC (31.0-37.0) g/dL Plt Count (150-450) k/uL Neutrophils # (1.3-7.7) k/uL Chloride 118 H (98-107) mmol/L Carbon Dioxide 14 L (22-30) mmol/L BUN 33 H (7-17) mg/dL Creatinine 1.22 H (0.52-1.04) mg/dL Glucose 65 L (74-99) mg/dL POC Glucose (mg/dL) 157 H 341 H (75-99) mg/dL Microbiology - Last 24 Hours (Table) 11/15/20 14:43 Blood Culture - Preliminary Blood No Growth after 72 hours 11/12/20 11:40 Blood Culture - Final Blood No Growth after 144 hours 11/12/20 11:55 Blood Culture - Final Blood No Growth after 144 hours 11/17/20 19:17 Gram Stain - Preliminary Foot - Left Wound Culture - Preliminary 11/17/20 19:17 Anaerobic Culture - Preliminary Foot - Left 11/15/20 20:00 Urine Culture - Final Urine,Catheterized Keeley glabrata
[2020-11-18 20:28] LABS: Glucose,Whole Blood 222 mg/dL (75-99)
[2020-11-18] MEDS: LATANOPROST 0.005% OPHTH DROPS 2.5 ML BTL BOTH EYES SCH (20:58)
[2020-11-19 04:56] LABS: Potassium 4.3 mmol/L (3.5-5.1)
[2020-11-19 06:04] LABS: Glucose,Whole Blood 135 mg/dL (75-99)
[2020-11-19] MEDS: SUCRALFATE 1 GM TAB PO SCH ×3 (06:27→17:57)
[2020-11-19] MEDS: INSULIN ASPART (NovoLOG) 100 UNIT/ML VIAL SQ SCH ×4 (06:27→21:00)
[2020-11-19] MEDS: HYDROCORTISONE SUCCINATE 100 MG/2 ML VIAL IV SCH (08:43)
[2020-11-19] MEDS: METOPROLOL TARTRATE 12.5 MG TAB PO SCH ×2 (08:44→21:00)
[2020-11-19] MEDS: HEPARIN SODIUM,PORCINE/PF 5,000 UNIT/0.5 ML SYRINGE SQ SCH ×2 (08:44→21:00)
[2020-11-19] MEDS: PANTOPRAZOLE 40 MG TABLET PO SCH (08:44)
[2020-11-19] MEDS: SODIUM BICARBONATE TAB 650 MG TAB PO SCH ×3 (08:44→21:00)
[2020-11-19] MEDS: ATORVASTATIN 10 MG TAB PO SCH (08:44)
[2020-11-19] MEDS: OLANZapine 5 MG TAB PO SCH (08:45)
[2020-11-19] MEDS: FIDAXOMICIN 200 MG TABLET PO SCH ×2 (08:45→21:00)
[2020-11-19] MEDS: DONEPEZIL 5 MG TAB PO SCH (08:45)
[2020-11-19] MEDS: COLLAGENASE 250 UNIT/GM OINTMENT 30 GM TUBE TOPICAL SCH (09:09)
--- NOTE | 2020-11-19 10:18 | P.PN ---
Subjective Progress Note Date: 11/19/20 Principal diagnosis: Sepsis, C. difficile colitis, recurrent hypoglycemia This is a 75-year-old white female patient who is familiar to our service from previous hospitalization in October 2020 when we were asked to evaluate the patient for a possibility of pulmonary embolism, which was ruled out. Patient was admitted to the hospital on 11/12/2020 with complaints of general weakness. Patient reported fever, and episodes of diarrhea at home. She is a poor historian, and though she understands [place], she relies on her daughter to communicate her needs as she speaks [place]ralt[place]. Past medical history is significant for hypertension, hyperlipidemia, diabetes mellitus type 2, coronary artery disease with previous stenting, recent left ankle surgery, urinary tract infections, recent episode of C. diff colitis, recent history of GI bleeding and patient underwent EGD and colonoscopy in October 2020 and was found to have a large duodenal ulcer, gastritis and pancolitis. Patient has developed acute kidney injury during her previous hospitalization. During her last hospital ization as she developed acute hypoxic respiratory failure, pleural effusions, echocardiogram showed mildly impaired EF of 45-50%. Chest x-ray in the emergency department showed a right basilar atelectasis with tiny pleural effusion. Stool for C. diff was positive. Urinalysis showed evidence of a urinary tract infection with large amount of leuks, greater than 182 white blood cells, and many white blood cells in clumps. White count on admission was 13.9, hemoglobin was 11.3. BUN was 37, creatinine is 1.79, sodium was 134, the rest of electrolytes were within normal limits, troponin less than 0.012. Plasma lactic acid was 1.0. Patient was started on oral vancomycin and Flagyl for C. diff colitis, IV Rocephin was started for acute urinary tract infection. She was given IV fluids. Blood cultures have shown no growth, urine cultures positive for E. coli. Culture showed no Salmonella or Shigella, no E.Coli 0157:H7. In the last couple of days, patient has blood sugar has been pers istently low, requiring 10% dextrose initiation which is currently infusing at 100 ML per hour. This afternoon the patient's family reported an episode of patient being less responsive, and asked for her blood sugar to be checked which was down to 36. 50% dextrose, and 1 g of glucagon were administered and subsequently her blood sugar came up to 262. Currently awake and alert, her family is at the bedside, she is able to answer simple questions. She did breakfast, although her appetite is not the greatest. She did have 2 episodes of diarrhea today. She is afebrile, she denies any pulmonary complaints, lung sounds are clear, diminished at the bases, room air pulse ox is 97%, current blo od pressure is 100/63 she is a bit tachycardic with a rate of 118. Transfer to the ICU was requested in view of persistent hypoglycemia and the need for close glucose monitoring. Reevaluated today on 11/16/20 patient remains in the ICU, remains on D10 at 150 mL per hour. Continues to show intermittent drops in her blood sugars, patient was also given hydrocortisone. Patient is quite lethargic, but not in any respiratory distress. She is hemodynamically stable, she is in sinus tachycardia rate of 124. Continues to have significant left heel ulcer which is 3+, bone scan was ordered and is pending. Orthopedic consultation was also ordered. Her sodium bicarb today was increased to 650 twice a day. Infectious disease on the case to address antibiotics including her urinary tract infection and what seems to be deep heel ulcer and possible osteomyelitis. Patient is being treated for C. difficile colitis. And now she is being treated for profound hypoglycemic episodes requiring D10 infusion. Patient is on room air, O2 saturation 96%. He was dynamically stable. Patient herself is not a great historian and does not seem to be verbal. WBC count is 11.3 hemoglobin is 10.7. Bicarb is 14 and BUN is 31 creatinine 1.4 Reevaluated today on 11/17/2020, patient remains in the ICU, she is off D10, and her sugars seem to be better controlled now. Patient is on room air with O2 saturation of 96%. She is now on D5 4 5 at 50 mL per hour. Urine output remains marginal, patient will be given more fluid boluses of 0.9 normal saline, and she will be on 0.9 normal saline at 75 mL per hour. Hydrocortisone was cut down from 100 every 8 hours to 50 every 8 hours. Patient is scheduled to have surgery today, and removal of the screw from her left heel. This will be done by orthopedics. Patient is still receiving treatment for her C. difficile colitis using the dificid and oral vancomycin. Reevaluated again by infectious disease and now she is on antibiotics in the form of Rocephin and she had only 1 episode of diarrhea yesterday. WBC count is 8.9 hemoglobin is 10.4. Elec trolytes are normal bicarb remains low at 15 and the patient is on oral bicarb. BUN is 30 creatinine 1.31. The patient is seen today 11/18/2020 in follow-up in the intensive care unit. She is currently awake and alert in no acute distress. She is afebrile. Maintaining O2 saturations in the mid 90s on room air. Hemodynamically stable. Blood cultures revealed no growth. Urine culture was positive for E. coli. Left foot wound cultures pending. White count 15.5. Hemoglobin 10.7. Sodium 137. Potassium 4.5. Bicarb 13. Creatinine 1.22. Glucose 94. She does have a nonhealing left heel decubitus ulcer. There was exposed hardware in the left calcaneus. Yesterday she had undergone removal of deep hardware at left calcaneus with irrigation and excisional debridement of left decubitus heel ulcer, deep bony wound culture. She remains on ceftriaxone. 0.9 normal saline at 75 ML's per hour. Blood sugars have been more stable. She was having issues with some urinary retention and a indwelling catheter was reinserted. Output adequate. She is on heparin for DVT prophylaxis. Remains on Dificid. Remains on Solu-Cortef. Reevaluated today on 11/19/2020, patient seems to be doing reasonably well, she is resting in bed, on nasal cannula, in no distress. Patient is afebrile, and she is hemodynamically stable. She is in sinus rhythm, remains on Rocephin and on dificid, IV fluid is 0.9 normal saline at 20 mL per hour. Patient received a fluid boluses. And she remains on hydrocortisone which I plan to discontinue and start the patient on prednisone instead. Prednisone at 20 mg daily and will be tapered over the next 10 days or 2 weeks. Labs today were noted to be unre markable, continue senna low bicarb of 14. Renal profile is normalizing. Objective - Vital Signs Vital signs: Vital Signs Temp 98.4 F 11/19/20 08:00 Pulse 105 H 11/19/20 08:00 Resp 17 11/19/20 08:00 BP 131/68 11/19/20 08:00 Pulse Ox 96 09/15/21 08:00 Intake & Output 11/18/20 11/19/20 11/19/20 18:59 06:59 18:59 Intake Total 725 50 Output Total 426 725 160 Balance 299 -725 -110 Intake: IV 725 50 Sodium Chloride 0.9% 1, 675 000 ml @ 75 mls/hr IV . [id number] ANNMARIE Rx#:[id number] cefTRIAXone 1 gm In 50 50 Sodium Chloride 0.9% 50 ml @ 100 mls/hr IVPB Q24HR ANNMARIE Rx#:[id number] Output: Urine 425 725 160 Stool 1 Other: Voiding Method External Catheter External Catheter Indwelling Catheter # Bowel Movements 1 - Exam GENERAL EXAM: Alert, very pleasant, 75-year-old female on room air, more awake today, in no distress. HEAD: Normocephalic/atraumatic. ENT: PERRLA, EOMI, anicteric, no neck masses, no JVD, no stridor. CHEST: No chest wall deformity. Symmetrical expansion. LUNGS: Diminished breath sounds bilaterally, bibasilar crackles CVS: Regular rate and rhythm, normal S1 and S2, no gallops, no murmurs, no rubs ABDOMEN: Soft, nontender. No hepatosplenomegaly, normal bowel sounds, no guarding or rigidity. EXTREMITIES: No clubbing, mild edema, no cyanosis, 2+ pulses and upper and lower extremities. Left heel ulcer is noted, rather deep, MUSCULOSKELETAL: Muscle strength and tone normal. SKIN: Deep left heel ulcer is noted. Sterile dressing noted CENTRAL NERVOUS SYSTEM: Awake, follows simple instructions, noted to be more verbal today. - Labs CBC & Chem 7: 11/18/20 03:44 11/19/20 03:32 Labs: Abnormal Lab Results - Last 24 Hours (Table) 11/18/20 11/18/20 11/18/20 Range/Units 11:26 16:33 20:26 Chloride (98-107) mmol/L Carbon Dioxide (22-30) mmol/L BUN (7-17) mg/dL Creatinine (0.52-1.04) mg/dL Glucose (74-99) mg/dL POC Glucose (mg/dL) 157 H 341 H 222 H (75-99) mg/dL 11/19/20 11/19/20 Range/Units 03:32 06:03 Chloride 119 H (98-107) mmol/L Carbon Dioxide 14 L (22-30) mmol/L BUN 34 H (7-17) mg/dL Creatinine 1.12 H (0.52-1.04) mg/dL Glucose 121 H (74-99) mg/dL POC Glucose (mg/dL) 135 H (75-99) mg/dL Microbiology - Last 24 Hours (Table) 11/17/20 19:17 Gram Stain - Preliminary Foot - Left Wound Culture - Preliminary Group D Enterococcus 11/15/20 14:43 Blood Culture - Preliminary Blood No Growth after 72 hours 11/12/20 11:40 Blood Culture - Final Blood No Growth after 144 hours 11/12/20 11:55 Blood Culture - Final Blood No Growth after 144 hours Assessment and Plan Assessment: #1. Acute C. diff colitis, currently on oral vancomycin, ID service is following. Diarrhea has improved #2. Acute urinary tract infection, with urine cultures positive for E. coli, b ack on Rocephin. #3. Persistent hypoglycemia, possibly related to sepsis, poor oral intake. Resolved. #4. Acute kidney injury related to diarrhea, and ATN #5. Non-anion gap metabolic acidosis related to CADE #6. Recent hospitalization for acute on chronic diastolic CHF exacerbation #7. Recent C. diff colitis #8. Recent history of GI bleeding, status post EGD and colonoscopy, and patient was found to have a large duodenal ulcer #9. Stage III chronic kidney disease #10. Recent history of left ankle fracture and surgery at [facility] in September 2020 left foot, deep left foot ulcer possible osteomyelitis, seen by orthopedics in our his sedation, and she is scheduled to have screw removal from her left heel. #12. Diabetes mellitus type 2 #13. Hypertension #14. Dyslipidemia #15. Previous history of urinary tract infection #16. Lifetime nonsmoker,no history of chronic lung disease Recommendation: Transfer patient out of the ICU to a regular medical floor. Discontinue hydrocortisone and start prednisone at 20 mg daily. Continue antibiotics as per infectious disease on the case including Rocephin and treatment for C. difficile colitis. Continue GI and DVT prophylaxis. Will follow patient on when necessary basis after transfer out of the ICU. Time with Patient: Less than 30
[2020-11-19 12:05] LABS: Glucose,Whole Blood 182 mg/dL (75-99)
[2020-11-19] MEDS: predniSONE 20 MG TAB PO SCH (12:58)
[2020-11-19 13:49] VITALS: BMI 25.0
[2020-11-19] MEDS: traMADol 50 MG TAB PO PRN (15:39)
[2020-11-19 17:32] LABS: Glucose,Whole Blood 323 mg/dL (75-99)
--- NOTE | 2020-11-19 17:46 | P.PN ---
Subjective Progress Note Date: 11/19/20 (delayed charting seen at 1330) Principal diagnosis: diarrhea Patient is a 75 yo female with a hx of DM on oral medications, CKD, HTN, and HLD who presented with complaints of weakness and diarrhea. On arrival to the ER she was febrile with a temp of 102.9 and tachycardic with a pulse of 148. Initial labs demonstrate a white blood cell count of 13.9, hemoglobin 11.3, platelets 496, glucose 210, creatinine 1.79, and UA with greater than 182 white blood cells. Her C. diff was positive. She was admitted and placed on oral vancomycin and Rocephin. Patient had been diagnosed with C. diff approximately one month ago and this was considered a recurrent infection. Imaging: CXR: Right basilar atelectasis and infiltrate Left foot xray: no acute fracture Bone scan : increased uptake left ankle Patient seen and examined at beside. D/W jas at bedside. Patient had a turner at home but it was removed a few days before admission by Dr. Cheng. Per nursing failed voiding trial last PM with no urge to urinate General: non toxic, no distress, appears at stated age Derm: Dressing in place over left ankle and foot, no warmth, no odor, no drainage noted, warm, dry Head: atraumatic, normocephalic, symmetric Eyes: EOMI, no lid lag, anicteric sclera Mouth: no lip lesion, mucus membranes moist Cardiovascular: S1S2 reg, no murmur, positive posterior tibial pulse bilateral, Lungs: Decreased bs bilateral, no rhonchi, no rales , no accessory muscle use Abdominal: soft, nontender to palpation, no guarding, no appreciable organomegaly Ext: no gross muscle atrophy, no edema, no contractures Neuro: CN II-XI grossly intact, no focal neuro deficits Psych: Alert, oriented, flat affect Acute C. diff colitis - failed oral vanco on deficid - ID recs Acute urinary tract infection, associated with indwelling chronic Turner catheter, Present on admission -Turner has been changed - ID recs: Rocephin due to recent E coli, now with Keeley. Urinary Retention - failed voiding trial 11/17-11/18 - consult urology - anticipate home with turner Diabetes mellitus type 2 with prolonged hypoglycemia - A 1C 6.3 09/21/20 - continue off orals - hypoglycemia resolved and off D10 9-steroids are being weaned and will need to monitor for hypoglycemia. - anticipate home on Januvia or other medications that avoid hypoglycemia CKD III metabolic acidosis Hyperchloremia - sodium bicarb has been increased - baseline 1.4 - avoid nephrotoxic agents Leukocytosis -Likely increasing secondary to steroid use doubt secondary to infectious process. Dementia - safe and supportive environment - aricept Dyslipidemia - statin GERD - PPI - Carafate Pressure ulcer left heel stage III, pressure ulcer left buttock stage II - ortho recs appreciated and plan is for s/p remove screw to allow healing, will need f/u X 1 in a week -Wound care recs -Offloading - Bone scan possible osteo vs post op changes Sepsis without septic shock, resolved CADE secondary to dehydration, resolved Likely home in 1-2 days D/W Daughter Attempting to obtain appropriate equipment to care for patient at home, does not want SNF Patient needs lewis lift as she is not able to stand and move independently due to function quadraplegia Patient need Hospital bed due to functional quadraplegia and a pressure mattress due to her stage II pressure ulcer Objective - Vital Signs Vital signs: Vital Signs Temp 98.8 F 11/19/20 14:00 Pulse 107 H 11/19/20 14:00 Resp 24 11/19/20 14:00 BP 138/55 11/19/20 14:00 Pulse Ox 96 11/19/20 14:00 Intake & Output 11/18/20 11/19/20 11/19/20 18:59 06:59 18:59 Intake Total 725 50 Output Total 426 725 335 Balance 299 -725 -285 Weight 66.1 kg Intake: IV 725 50 Sodium Chloride 0.9% 1, 675 000 ml @ 75 mls/hr IV . [id number] ANNMARIE Rx#:[id number] cefTRIAXone 1 gm In 50 50 Sodium Chloride 0.9% 50 ml @ 100 mls/hr IVPB Q24HR ANNMARIE Rx#:[id number] Output: Urine 425 725 335 Stool 1 Other: Voiding Method External Catheter External Catheter Indwelling Catheter # Bowel Movements 1 - Labs CBC & Chem 7: 11/18/20 03:44 11/19/20 03:32 Labs: Abnormal Lab Results - Last 24 Hours (Table) 11/18/20 11/19/20 11/19/20 Range/Units 20:26 03:32 06:03 Chloride 119 H (98-107) mmol/L Carbon Dioxide 14 L (22-30) mmol/L BUN 34 H (7-17) mg/dL Creatinine 1.12 H (0.52-1.04) mg/dL Glucose 121 H (74-99) mg/dL POC Glucose (mg/dL) 222 H 135 H (75-99) mg/dL 11/19/20 Range/Units 12:03 Chloride (98-107) mmol/L Carbon Dioxide (22-30) mmol/L BUN (7-17) mg/dL Creatinine (0.52-1.04) mg/dL Glucose (74-99) mg/dL POC Glucose (mg/dL) 182 H (75-99) mg/dL Microbiology - Last 24 Hours (Table) 11/15/20 14:43 Blood Culture - Preliminary Blood No Growth after 96 hours 11/17/20 19:17 Gram Stain - Preliminary Foot - Left Wound Culture - Preliminary Group D Enterococcus 11/12/20 11:40 Blood Culture - Final Blood No Growth after 144 hours 11/12/20 11:55 Blood Culture - Final Blood No Growth after 144 hours
[2020-11-19 20:24] LABS: HCT 32.1 % (34.0-46.0); HGB 9.5 gm/dL (11.4-16.0); Hypochromasia Marked; MCH 29.4 pg (25.0-35.0); MCHC 29.5 g/dL (31.0-37.0); MCV 99.4 fL (80.0-100.0); Macrocytosis Slight; Mean Platelet Volume 7.7; Platelet Count 469 k/uL (150-450); RBC 3.23 m/uL (3.80-5.40); RDW 15.1 % (11.5-15.5); WBC 9.3 k/uL (3.8-10.6)
[2020-11-19 20:42] LABS: Glucose,Whole Blood 202 mg/dL (75-99)
[2020-11-19] MEDS: LATANOPROST 0.005% OPHTH DROPS 2.5 ML BTL BOTH EYES SCH (21:00)
[2020-11-19 21:02] LABS: Band Neutrophils % 5 %; Lymphocytes # (M) 1.02 k/uL (1.0-4.8); Metamyelocytes # (M) 0.28 k/uL (0); Metamyelocytes % 3 %; Monocytes # (M) 0.19 k/uL (0-1.0); Myelocytes # (M) 0.28 k/uL (0); Myelocytes % 3 %; Neutrophils % (M) 77 %; Nucleated Red Blood Cells 0 /100 WBC (0-0); Total Cells Counted 200
[2020-11-20 04:35] LABS: HCT 30.1 % (34.0-46.0); HGB 9.5 gm/dL (11.4-16.0); Hypochromasia Moderate; MCH 29.8 pg (25.0-35.0); MCHC 31.7 g/dL (31.0-37.0); Mean Platelet Volume 7.3; Platelet Count 521 k/uL (150-450); RBC 3.19 m/uL (3.80-5.40); RDW 15.1 % (11.5-15.5); WBC 9.8 k/uL (3.8-10.6)
[2020-11-20 04:36] LABS: MCV 94.2 fL (80.0-100.0)
[2020-11-20 04:51] LABS: C Reactive Protein 2.4 mg/dL (<1.0); Calcium 9.3 mg/dL (8.4-10.2); Potassium 3.9 mmol/L (3.5-5.1)
--- NOTE | 2020-11-20 05:08 | PN ---
PROGRESS NOTE DATE OF SERVICE: 11/19/2020 REASON FOR FOLLOWUP VISIT: 1. C difficile colitis. 2. Possible UTI. 3. Left heel wound, concern for underlying osteomyelitis. INTERVAL HISTORY: The patient is afebrile. The patient is breathing comfortably. The patient diarrhea has decreased intensity. Denies any chest pain. No shortness of breath or cough. PHYSICAL EXAMINATION: Blood pressure is 146/72 with a pulse of 100. Temperature 99.1. She is 95% on room air. General description is an elderly female lying in bed in no distress. Respiratory system: Unlabored breathing, is clear to auscultation anteriorly. Heart S1, S2. Regular rate and rhythm. Abdomen soft, no tenderness. Left heel is currently dressed. No obvious drainage on the dressing. LABS: White count has normalized to 9.3. Wound cultures currently pending. BUN of 24, creatinine 1.12. IMPRESSION/PLAN: 1. Patient with C difficile colitis clinically responding to to continue to finish a ten day course of therapy. 2. Patient with a positive , urinary tract infection with urine showing E coli. Repeat is now showing Keeley glabrata on continue. 3. Patient with left heel nonhealing ulcer and did have hardware which has been removed. We will wait for the culture to finalize. She will likely need a PICC line for outpatient antibiotics. Daughter at the bedside, questions answered. MMTREVAL / IJN: [id number] /
[2020-11-20 06:15] LABS: Erythrocyte Sedimentation Rate 14 mm/hr (0-20)
[2020-11-20] MEDS: INSULIN ASPART (NovoLOG) 100 UNIT/ML VIAL SQ SCH ×2 (06:50→11:49)
[2020-11-20] MEDS: SUCRALFATE 1 GM TAB PO SCH ×2 (07:04→15:37)
[2020-11-20] MEDS: ATORVASTATIN 10 MG TAB PO SCH (09:50)
[2020-11-20] MEDS: METOPROLOL TARTRATE 12.5 MG TAB PO SCH (09:50)
[2020-11-20] MEDS: predniSONE 20 MG TAB PO SCH (09:51)
[2020-11-20] MEDS: OLANZapine 5 MG TAB PO SCH (09:51)
[2020-11-20] MEDS: PANTOPRAZOLE 40 MG TABLET PO SCH (09:51)
[2020-11-20] MEDS: FIDAXOMICIN 200 MG TABLET PO SCH (09:51)
[2020-11-20] MEDS: DONEPEZIL 5 MG TAB PO SCH (09:51)
[2020-11-20] MEDS: SODIUM BICARBONATE TAB 650 MG TAB PO SCH ×2 (09:51→15:37)
[2020-11-20] MEDS: HEPARIN SODIUM,PORCINE/PF 5,000 UNIT/0.5 ML SYRINGE SQ SCH (09:51)
[2020-11-20 11:34] LABS: Glucose,Whole Blood 195 mg/dL (75-99)
[2020-11-20] MEDS ORDERED: AMPICILLIN-SULBACTAM 3 GM in SODIUM CHLORIDE 0.9% 100 ML IVPB SCH (12:00)
[2020-11-20] MEDS ORDERED: LIDOCAINE 1% INJ 10MG/ML (20 ML MDV) SQ ONE (12:56)
[2020-11-20] MEDS ORDERED: DAPTOmycin 500 MG in SODIUM CHLORIDE 0.9% 50 ML IVPB SCH (13:00)
--- NOTE | 2020-11-20 13:48 | IR ---
EXAMINATION TYPE: IR cvc insert >=5 years DATE OF EXAM: 11/20/2020 COMPARISON: NONE CLINICAL HISTORY: Infection Needs long-term intravenous access for antibiotics. PROCEDURE: Hand hygiene obtained with soap and water and alcohol-based hand rub. After informed consent, the skin overlying the right brachial vein was localized with ultrasound and noted to be compressible and patent. An ultrasound image was obtained and submitted on the patient's chart. The overlying skin was prepped and draped and Lidocaine was used for local anesthesia. A sk in ari was made with a scalpel. Access was gained to the vein under ultrasound guidance with a 21 g auge needle and a 0.018 inch wire was advanced, the wire could not be advanced centrally and was natali rufino, hemostasis achieved by manual compression. Attention then directed to the left upper extremity, the indwelling midline catheter was prepped and draped in sterile fashion. Lidocaine was used for lo ryley anesthesia and a skin ari was made with a scalpel. The midline was cannulated with a 0.018 inch guidewire. Access site was dilated with Peel-Away sheath and catheter tailored to the appropriate [facility] and advanced such that the distal tip is at the cavoatrial junction. Spot image was obtained zbigniew ifying placement. Catheter was fixed to the skin and a sterile dressing was placed following hemosta sis. Catheter was aspirated and flushed with saline. Patient was remained in stable condition witho ut complication.Maximal barrier technique is utilized. Ultrasound image is documented on the chart. Ultrasound used with sterile technique. IMPRESSION: STATUS POST PICC LINE exchange, READY FOR USE. THIS PROCEDURE WAS PERFORMED BY THE UNDER SIGNED.
--- NOTE | 2020-11-20 13:52 | XR ---
EXAMINATION TYPE: XR chest 1V portable DATE OF EXAM: 11/20/2020 COMPARISON: Chest x-ray 11/16/2020 HISTORY: Status post PICC line placement TECHNIQUE: Single frontal view of the chest is obtained. FINDINGS: There is been interval placement of a left-sided PICC line, distal tip is overlying the re gion of the cavoatrial junction. Patient is rotated. Bibasilar density is noted obscuring the hemidia phragms. No evident pneumothorax. IMPRESSION: PICC line in appropriate position, ready for use. Basilar effusions and associated atele ctasis, correlate to exclude pneumonia. No evident complication status post PICC line placement.
--- NOTE | 2020-11-20 14:47 | PN ---
PROGRESS NOTE DATE OF SERVICE: 11/20/2020 REASON FOR FOLLOWUP: 1. C difficile colitis. 2. Left heel osteomyelitis with infected hardware. INTERVAL HISTORY: The patient is afebrile. The patient is breathing comfortably. Denies having any chest pain or cough. No abdominal pain. Diarrhea has slowed down. She did have 2 small bowel movements per the RN. No worsening pain to the left heel. PHYSICAL EXAMINATION: Blood pressure 160/85, pulse of 105, temperature 98.9. She is 96% on room air. GENERAL DESCRIPTION: General description is an elderly female lying in bed in no distress. RESPIRATORY SYSTEM: Unlabored breathing. Clear to auscultation anteriorly. HEART: S1, S2. Regular rate and rhythm. ABDOMEN: Soft. No tenderness. Left heel is currently dressed. No drainage on the dressing. LUNGS: Hemoglobin is 9.1, white count 9.8. BUN of 30, creatinine 1.01. Culture from the left heel came back with Enterococcus faecalis. These were deep cultures from the left heel at the time of removal of the hardware. DIAGNOSTIC IMPRESSION AND PLAN: 1. Patient with Clostridium difficile colitis, clinically to continue with Dificid for a 10-day course of therapy. 2. Left heel osteomyelitis with underlying infected hardware which has been removed. Culture with Enterococcus faecalis. Unfortunately, ampicillin or Unasyn could not be done in the outpatient setting in view of the frequency of the dosing, and supposed to be infused through gravity. As per discussion with the insurance case manager and the infusion company, she will be started on daptomycin at 8 mg/kg daily for 6 weeks. Local wound care with Santyl and close outpatient followup. MMODL / IJN: [id number] /
--- NOTE | 2020-11-20 15:05 | P.DS ---
Providers Date of admission: 11/12/20 14:04 Expected date of discharge: 11/20/20 Attending physician: Janelle Ordoñez MD Consults: 11/12/20 14:05 Consult Physician Urgent Consulting Provider: Cassie Vergara Consult Reason/Comments: Sepsis, C. diff Do you want consulting provider notified?: Yes 11/15/20 14:06 Consult Physician Routine Consulting Provider: Cassie Vergara Consult Reason/Comments: Sepsis, Hypoglycemia Do you want consulting provider notified?: Yes 11/16/20 13:41 Consult Physician Routine Consulting Provider: Brittany Monique Consult Reason/Comments: left heel ulcer s/p repair of ankle fracture Do you want consulting provider notified?: Already Contacted 11/16/20 13:42 Consult Physician Routine Consulting Provider: Gail Ordonez Consult Reason/Comments: c diff Do you want consulting provider notified?: Already Contacted 11/19/20 17:46 Consult Physician Routine Consulting Provider: Albert Cheng Consult Reason/Comments: urinary retention Do you want consulting provider notified?: Yes Primary care physician: Anand Flaherty MD Hospital Course: Patient is a 75 yo female with a hx of DM on oral medications, CKD, HTN, and HLD who presented with complaints of weakness and diarrhea. On arrival to the ER she was febrile with a temp of 102.9 and tachycardic with a pulse of 148. Initial labs demonstrate a white blood cell count of 13.9, hemoglobin 11.3, platelets 496, glucose 210, creatinine 1.79, and UA with greater than 182 white blood cells. Her C. diff was positive. She was admitted and placed on oral vancomycin and Rocephin. Patient had been diagnosed with C. diff approximately one month ago and this was considered a recurrent infection. Acute C. diff colitis - failed oral vanco as outpatient, and placed on fidaxomicin here for total 10 day course after having clinical improvement on the same. - ID recs appreciated Acute urinary tract infection, associated with indwelling chronic Turner catheter, Present on admission -Turner has been changed - ID recs: Rocephin due to recent E coli, now with Keeley; completed course while in house, no abx for UTI on discharge. Urinary Retention - failed voiding trial 11/17-11/18 - consulted urology, recommendations appreciated - discharged home with turner and urology f/u Diabetes mellitus type 2 with prolonged hypoglycemia - A 1C 6.3 09/21/20 - discharged home on januvia, with d/c of home glimepiride - discharged on prednisone taper across 12 days. CKD III metabolic acidosis Hyperchloremia - sodium bicarb has been increased and discharged with bicarb tablets TID Dementia - safe and supportive environment - continued aricept on discharge Dyslipidemia - statin continued on discharge GERD - PPI, carafate continued on discharge Pressure ulcer left heel stage III, pressure ulcer left buttock stage II - ortho recs appreciated pt is s/p removal of exposed screw to allow healing, will need f/u X 1 in a week - Wound care recs appreciated - Offloading - Bone scan showed osteo vs post op changes; ID recommended 6 weeks of daptomycin, which was prescribed on discharge. 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 Assessment: Gen: awake, alert HEENT: normocephalic, atraumatic, good hearing acuity, moist mucous membranes Resp: good air exchange, breathing comfortably with no accessory muscle use CVS: good distal perfusion x 4, GI: soft, NTTP, ND : no SPT, no CVAT, turner catheter is present MSK: no pitting edema, no clubbing Neuro: non-focal, moving all extremities Psych: cooperative, euthymic mood Patient Condition at Discharge: Fair Plan - Discharge Summary Discharge Rx Participant: Yes New Discharge Prescriptions: New predniSONE See Taper PO DIRECTED #15 tab DAPTOmycin [Cubicin] 500 mg IV DAILY #42 each Fidaxomicin [Dificid] 200 mg PO BID #14 tablet Sodium Bicarbonate Tab 650 mg PO TID #90 tab Continue Latanoprost/Pf [Latanoprost 0.005% Eye Drop] 1 drop BOTH EYES HS Collagenase [Santyl] 1 applic TOPICAL HS OLANZapine [ZyPREXA] 5 mg PO DAILY Donepezil [Aricept] 5 mg PO DAILY Cholecalciferol [Vitamin D3 (25 Mcg = 1000 Iu)] 25 mcg PO DAILY Sucralfate [Carafate] 1 gm PO AC-TID #90 tab Pantoprazole Sodium [Protonix] 40 mg PO BID 30 Days #60 tablet. Furosemide [Lasix] 40 mg PO DIRECTED Metoprolol Succinate (ER) [Toprol XL] 200 mg PO DAILY #60 tab.er.24h Glimepiride [Amaryl] 8 mg PO AC-BRKFST Pioglitazone [Actos] 30 mg PO DAILY Acetaminophen Tab [Tylenol] 650 mg PO Q6H PRN PRN Reason: Mild Pain Or Fever > 100.5 Darbepoetin Aba [Aranesp] 40 mcg SQ Q7D Discontinued Simvastatin [Zocor] 20 mg PO DAILY Discharge Medication List Collagenase [Santyl] 1 applic TOPICAL HS 09/14/20 [History] Donepezil [Aricept] 5 mg PO DAILY 09/14/20 [History] Latanoprost/Pf [Latanoprost 0.005% Eye Drop] 1 drop BOTH EYES HS 09/14/20 [History] OLANZapine [ZyPREXA] 5 mg PO DAILY 09/14/20 [History] Cholecalciferol [Vitamin D3 (25 Mcg = 1000 Iu)] 25 mcg PO DAILY 10/09/20 [History] Metoprolol Succinate (ER) [Toprol XL] 200 mg PO DAILY #60 tab.er.24h 10/23/20 [Rx] Pantoprazole Sodium [Protonix] 40 mg PO BID 30 Days #60 tablet. 10/23/20 [Rx] Sucralfate [Carafate] 1 gm PO AC-TID #90 tab 10/23/20 [Rx] Acetaminophen Tab [Tylenol] 650 mg PO Q6H PRN 10/26/20 [History] Glimepiride [Amaryl] 8 mg PO AC-BRKFST 10/26/20 [History] Pioglitazone [Actos] 30 mg PO DAILY 10/26/20 [History] Darbepoetin Aba [Aranesp] 40 mcg SQ Q7D 11/12/20 [History] Furosemide [Lasix] 40 mg PO DIRECTED 11/12/20 [History] DAPTOmycin [Cubicin] 500 mg IV DAILY #42 each 11/20/20 [Rx] Fidaxomicin [Dificid] 200 mg PO BID #14 tablet 11/20/20 [Rx] Sodium Bicarbonate Tab 650 mg PO TID #90 tab 11/20/20 [Rx] predniSONE See Taper PO DIRECTED #15 tab 11/20/20 [Rx] Follow up Appointment(s)/Referral(s): [facility], [NON-STAFF] - [facility] [NON-STAFF] - As Needed (Supplier of lewis lift and hospital bed with mattress.) Stepan Brian, PAC [PHYSICIAN PROCEDURE WRITER] - 1 Week (Patient may follow-up with Stepan Brian PA-C or Dr. Tim Monique at [facility] in 1 week following discharge. ) [facility] [NON-STAFF] - As Needed Nonstaff,Physician [REFERRING] - 1-2 days Alessandro Rueda DO [REFERRING] - 2 Weeks (Patient should follow-up with Dr. Alessandro Rueda at [facility] for postoperative fracture care.) Gail Ordonez MD [STAFF PHYSICIAN] - 1 Week Ambulatory/Diagnostic Orders: Basic Metabolic Panel [LAB.AMB] Location: None Selected C Reactive Protein [LAB.AMB] Location: None Selected Complete Blood Count w/diff [LAB.AMB] Location: None Selected Erythrocyte Sedimentation Rate [LAB.AMB] Location: None Selected Activity/Diet/Wound Care/Special Instructions: 1. Nonweightbearing on the left lower extremity 2. Continue with wound care with dressing changes and treatment per their recommendations for the left lower extremity Discharge Disposition: HOME WITH HOME HEALTH SERVICES
[2020-11-20 15:07] VITALS: RESP 16
[2020-11-20] MEDS: COLLAGENASE 250 UNIT/GM OINTMENT 30 GM TUBE TOPICAL SCH (16:15)
--- NOTE | 2020-11-20 17:32 | P.GSCN ---
History of Present Illness Consult date: 11/20/20 Reason for Consult: Urinary retention History of present illness: 75-year-old female admitted to the hospital with a UTI, C. diff infection. Tye plascencia is consulted for urinary retention. She has history of recurrent urinary retention, she follows up with Dr. Cheng for that. Mack catheter was placed during this admission, for her urinary retention, amount obtain is not known. No evidence of gross hematuria, patient is poor historian, but denies any abdominal pain. Review of Systems ROS unobtainable: due to mental status Past Medical History Past Medical History: Coronary Artery Disease (CAD), Diabetes Mellitus, Hyperlipidemia, Hypertension History of Any Multi-Drug Resistant Organisms: None Reported Past Surgical History: Cholecystectomy, Heart Catheterization With Stent, Orthopedic Surgery Additional Past Surgical History / Comment(s): hip surgery, cataract sx, left ankle surgery 2020 Past Anesthesia/Blood Transfusion Reactions: No Reported Reaction Date of Last Stent Placement:: 2000 Past Psychological History: No Psychological Hx Reported Smoking Status: Never smoker Past Alcohol Use History: None Reported Past Drug Use History: None Reported Medications and Allergies Home Medications Medication Instructions Recorded Confirmed Type Collagenase [Santyl] 1 applic TOPICAL HS 09/14/20 11/12/20 History Donepezil [Aricept] 5 mg PO DAILY 09/14/20 11/12/20 History Latanoprost/Pf [Latanoprost 0.005% 1 drop BOTH EYES HS 09/14/20 11/12/20 History Eye Drop] OLANZapine [ZyPREXA] 5 mg PO DAILY 09/14/20 11/12/20 History Cholecalciferol [Vitamin D3 (25 25 mcg PO DAILY 10/09/20 11/12/20 History Mcg = 1000 Iu)] Metoprolol Succinate (ER) [Toprol 200 mg PO DAILY #60 tab.er.24h 10/23/20 11/12/20 Rx XL] Pantoprazole Sodium [Protonix] 40 mg PO BID 30 Days #60 tablet. 10/23/20 11/12/20 Rx Sucralfate [Carafate] 1 gm PO AC-TID #90 tab 10/23/20 11/12/20 Rx Acetaminophen Tab [Tylenol] 650 mg PO Q6H PRN 10/26/20 11/12/20 History Pioglitazone [Actos] 30 mg PO DAILY 10/26/20 11/12/20 History Darbepoetin Aba [Aranesp] 40 mcg SQ Q7D 11/12/20 11/12/20 History Furosemide [Lasix] 40 mg PO DIRECTED 11/12/20 11/12/20 History DAPTOmycin [Cubicin] 500 mg IV DAILY #42 each 11/20/20 Rx Fidaxomicin [Dificid] 200 mg PO BID #14 tablet 11/20/20 Rx Sodium Bicarbonate Tab 650 mg PO TID #90 tab 11/20/20 Rx predniSONE See Taper PO DIRECTED #15 tab 11/20/20 Rx Allergies Allergy/AdvReac Type Severity Reaction Status Date / Time No Known Allergies Allergy Verified 11/12/20 12:02 Surgical - Exam Vital Signs Temp Pulse Resp BP Pulse Ox 102.9 F H 148 H 18 119/57 95 11/12/20 10:45 11/12/20 10:45 11/12/20 10:45 11/12/20 10:45 11/12/20 10:45 - General no distress, no pain - Eyes PERRL, normal ocular movement - ENT normal nares, normal mucosa - Abdomen Abdomen: soft, non tender - Genitourinary Mack in place draining clear yellow urine Results - Labs 11/20/20 03:56 11/20/20 03:56 Abnormal Lab Results - Last 24 Hours (Table) 11/19/20 11/19/20 11/19/20 Range/Units 17:31 19:31 20:40 RBC 3.23 L (3.80-5.40) m/uL Hgb 9.5 L (11.4-16.0) gm/dL Hct 32.1 L (34.0-46.0) % MCHC 29.5 L (31.0-37.0) g/dL Plt Count 469 H (150-450) k/uL Metamyelocytes # (Man) 0.28 H (0) k/uL Myelocytes # (Manual) 0.28 H (0) k/uL Chloride (98-107) mmol/L Carbon Dioxide (22-30) mmol/L BUN (7-17) mg/dL Glucose (74-99) mg/dL POC Glucose (mg/dL) 323 H 202 H (75-99) mg/dL C-Reactive Protein (<1.0) mg/dL 11/20/20 11/20/20 11/20/20 Range/Units 03:56 03:56 11:32 RBC 3.19 L (3.80-5.40) m/uL Hgb 9.5 L (11.4-16.0) gm/dL Hct 30.1 L (34.0-46.0) % MCHC (31.0-37.0) g/dL Plt Count 521 H (150-450) k/uL Metamyelocytes # (Man) (0) k/uL Myelocytes # (Manual) (0) k/uL Chloride 115 H (98-107) mmol/L Carbon Dioxide 17 L (22-30) mmol/L BUN 30 H (7-17) mg/dL Glucose 102 H (74-99) mg/dL POC Glucose (mg/dL) 195 H (75-99) mg/dL C-Reactive Protein 2.4 H (<1.0) mg/dL Microbiology - Last 24 Hours (Table) 11/15/20 14:43 Blood Culture - Preliminary Blood No Growth after 120 hours 11/17/20 19:17 Gram Stain - Final Foot - Left Wound Culture - Final Enterococcus faecalis 11/17/20 19:17 Anaerobic Culture - Preliminary Foot - Left Diabetes panel 11/20/20 Range/Units 03:56 Sodium 138 (137-145) mmol/L Potassium 3.9 (3.5-5.1) mmol/L Chloride 115 H (98-107) mmol/L Carbon Dioxide 17 L (22-30) mmol/L BUN 30 H (7-17) mg/dL Creatinine 1.01 (0.52-1.04) mg/dL Glucose 102 H (74-99) mg/dL Calcium 9.3 (8.4-10.2) mg/dL Calcium panel 11/20/20 Range/Units 03:56 Calcium 9.3 (8.4-10.2) mg/dL Pituitary panel 11/20/20 Range/Units 03:56 Sodium 138 (137-145) mmol/L Potassium 3.9 (3.5-5.1) mmol/L Chloride 115 H (98-107) mmol/L Carbon Dioxide 17 L (22-30) mmol/L BUN 30 H (7-17) mg/dL Creatinine 1.01 (0.52-1.04) mg/dL Glucose 102 H (74-99) mg/dL Calcium 9.3 (8.4-10.2) mg/dL Adrenal panel 11/20/20 Range/Units 03:56 Sodium 138 (137-145) mmol/L Potassium 3.9 (3.5-5.1) mmol/L Chloride 115 H (98-107) mmol/L Carbon Dioxide 17 L (22-30) mmol/L BUN 30 H (7-17) mg/dL Creatinine 1.01 (0.52-1.04) mg/dL Glucose 102 H (74-99) mg/dL Calcium 9.3 (8.4-10.2) mg/dL Assessment and Plan Assessment: 75-year-old female admitted to the hospital with UTI, and C. diff infection. Has history of recurrent urinary retention, follows up with Dr. Cheng for that. Mack placed during this admission for urinary retention -Recommend keeping Mack in place, given patient history recurrent urinary retention she might require a chronic catheter. Advised to follow-up as an outpatient with Dr. Sebastian
[2020-11-20 18:11] VITALS: BP 154/80; PULSE 90; TEMP 98
== END 2020-11-20 16:45 | disposition home health service (06) | DRG 853 ==
LOC: EC 10:43 → SUPCPDRO 10:43 → 1SOBS 14:04 → 6NMEDSUR 14:16 → 1SOBS 14:35 → 4SSUR 16:35 → 3SCARD 11-13 17:46 → 2SICU 11-15 15:58
PROVIDERS: ADMIT Internal Medicine; ATTEND Internal Medicine
PROC: 0QBM0ZZ Excision of Left Tarsal, Open Approach (ICD-10-PCS; 2020-11-17)
PROC: 0SPG04Z Removal of Internal Fixation Device from Left Ankle Joint, Open Approach (ICD-10-PCS; principal; 2020-11-17 18:39)
PROC: 02HV33Z Insertion of Infusion Device into Superior Vena Cava, Percutaneous Approach (ICD-10-PCS; 2020-11-20)
DX: A41.4 Sepsis due to anaerobes (principal); J96.01 Acute respiratory failure with hypoxia; L89.623 Pressure ulcer of left heel, stage 3; R53.2 Functional quadriplegia; N17.0 Acute kidney failure with tubular necrosis; T83.511A Infection and inflammatory reaction due to indwelling urethral catheter, initial encounter; B37.49 Other urogenital candidiasis; A04.72 Enterocolitis due to Clostridium difficile, not specified as recurrent; E87.2 Acidosis; I13.0 Hypertensive heart and chronic kidney disease with heart failure and stage 1 through stage 4 chronic kidney disease, or unspecified chronic kidney disease; I50.32 Chronic diastolic (congestive) heart failure; J98.11 Atelectasis; N39.0 Urinary tract infection, site not specified; M86.9 Osteomyelitis, unspecified; E11.22 Type 2 diabetes mellitus with diabetic chronic kidney disease; E11.621 Type 2 diabetes mellitus with foot ulcer; E11.649 Type 2 diabetes mellitus with hypoglycemia without coma; E11.65 Type 2 diabetes mellitus with hyperglycemia; E11.69 Type 2 diabetes mellitus with other specified complication; E78.5 Hyperlipidemia, unspecified; E86.0 Dehydration; E86.1 Hypovolemia; E87.8 Other disorders of electrolyte and fluid balance, not elsewhere classified; K21.9 Gastro-esophageal reflux disease without esophagitis; R65.20 Severe sepsis without septic shock; L89.322 Pressure ulcer of left buttock, stage 2; L89.152 Pressure ulcer of sacral region, stage 2; I95.9 Hypotension, unspecified; Z79.84 Long term (current) use of oral hypoglycemic drugs; Z79.899 Other long term (current) drug therapy; Z98.1 Arthrodesis status; Z95.5 Presence of coronary angioplasty implant and graft; Z87.440 Personal history of urinary (tract) infections; T38.0X5A Adverse effect of glucocorticoids and synthetic analogues, initial encounter; F03.90 Unspecified dementia, unspecified severity, without behavioral disturbance, psychotic disturbance, mood disturbance, and anxiety; I25.10 Atherosclerotic heart disease of native coronary artery without angina pectoris; B96.20 Unspecified Escherichia coli [E. coli] as the cause of diseases classified elsewhere; N18.30 Chronic kidney disease, stage 3 unspecified; L97.509 Non-pressure chronic ulcer of other part of unspecified foot with unspecified severity
CPT/HCPCS: 36410; 36415; 36573; 51798; 71045; 71046; 76937; 78315; 80048; 80053; 81001; 82533; 83540; 83605; 83630; 83735; 84484; 85025; 85027; 85610; 85652; 85730; 86140; 87040; 87045; 87046; 87070; 87075; 87077; 87086; 87186; 87205; 87324; 87635; 93005; 96374; 99291

== ENCOUNTER 2020-12-02 13:18 | Inpatient (IN) | payer MEDICARE ==
[2020-12-02 14:00] LABS: Basophils % (A) 1 %; Eosinophils # (A) 0.2 k/uL (0-0.7); Eosinophils % (A) 3 %; HCT 29.3 % (34.0-46.0); HGB 9.2 gm/dL (11.4-16.0); Hypochromasia Slight; Lymphocytes # (A) 0.9 k/uL (1.0-4.8); Lymphocytes % (A) 13 %; MCH 28.1 pg (25.0-35.0); MCHC 31.2 g/dL (31.0-37.0); MCV 89.8 fL (80.0-100.0); Mean Platelet Volume 7.4; Monocytes # (A) 0.4 k/uL (0-1.0); Monocytes % (A) 5 %; Neutrophils # (A) 5.3 k/uL (1.3-7.7); Neutrophils % (A) 76 %; Platelet Count 360 k/uL (150-450); RBC 3.27 m/uL (3.80-5.40); RDW 14.7 % (11.5-15.5)
[2020-12-02 14:21] LABS: Calcium 8.6 mg/dL (8.4-10.2)
[2020-12-02 14:23] LABS: Potassium 2.7 mmol/L (3.5-5.1)
--- NOTE | 2020-12-02 14:47 | ED ---
General Adult HPI - General Chief complaint: Recheck/Abnormal Lab/Rx Stated complaint: abnormal labs Time Seen by Provider: 12/02/20 13:30 Source: patient, RN notes reviewed, old records reviewed Mode of arrival: wheelchair Limitations: no limitations - History of Present Illness Initial comments: This is a 75-year-old female presents emergency department for low potassium according to the family the patient had low potassium yesterday and today despi te taking an increased amount of potassium at home. Primary medical care doctor wanted to come to the hospital to be admitted. Patient has no complaints. Patient denies any fever chills or cough recently. Patient denies any abdominal pain. Patient denies nausea vomiting diarrhea. Patient denies any calf tenderness or leg swelling. Patient is on Lasix and according to family the potassium was stopped recently but when the first lab results came back with a low potassium she was started on a higher dose and it has not helped according to them. - Related Data Home Medications Medication Instructions Recorded Confirmed Collagenase [Santyl] 1 applic TOPICAL HS 09/14/20 11/12/20 Donepezil [Aricept] 5 mg PO DAILY 09/14/20 11/12/20 Latanoprost/Pf [Latanoprost 0.005% 1 drop BOTH EYES HS 09/14/20 11/12/20 Eye Drop] OLANZapine [ZyPREXA] 5 mg PO DAILY 09/14/20 11/12/20 Cholecalciferol [Vitamin D3 (25 25 mcg PO DAILY 10/09/20 11/12/20 Mcg = 1000 Iu)] Acetaminophen Tab [Tylenol] 650 mg PO Q6H PRN 10/26/20 11/12/20 Pioglitazone [Actos] 30 mg PO DAILY 10/26/20 11/12/20 Darbepoetin Aba [Aranesp] 40 mcg SQ Q7D 11/12/20 11/12/20 Furosemide [Lasix] 40 mg PO DIRECTED 11/12/20 11/12/20 Previous Rx's Medication Instructions Recorded Metoprolol Succinate (ER) [Toprol 200 mg PO DAILY #60 tab.er.24h 10/23/20 XL] Pantoprazole Sodium [Protonix] 40 mg PO BID 30 Days #60 tablet 10/23/20 Sucralfate [Carafate] 1 gm PO AC-TID #90 tab 10/23/20 DAPTOmycin [Cubicin] 500 mg IV DAILY #42 each 11/20/20 Fidaxomicin [Dificid] 200 mg PO BID #14 tablet 11/20/20 Sodium Bicarbonate Tab 650 mg PO TID #90 tab 11/20/20 predniSONE See Taper PO DIRECTED #15 tab 11/20/20 Allergies Allergy/AdvReac Type Severity Reaction Status Date / Time No Known Allergies Allergy Verified 12/02/20 13:32 Review of Systems ROS Statement: Those systems with pertinent positive or pertinent negative responses have been documented in the HPI. ROS Other: All systems not noted in ROS Statement are negative. Past Medical History Past Medical History: Coronary Artery Disease (CAD), Diabetes Mellitus, Hyperlipidemia, Hypertension History of Any Multi-Drug Resistant Organisms: None Reported Past Surgical History: Cholecystectomy, Heart Catheterization With Stent, Orthopedic Surgery Additional Past Surgical History / Comment(s): hip surgery, cataract sx, left ankle surgery 2020 Past Anesthesia/Blood Transfusion Reactions: No Reported Reaction Date of Last Stent Placement:: 2000 Past Psychological History: No Psychological Hx Reported Smoking Status: Never smoker Past Alcohol Use History: None Reported Past Drug Use History: None Reported General Exam - General Exam Comments Initial Comments: GENERAL: Patient is well-developed and well-nourished. Patient is nontoxic and well- hydrated and is in no acute distress. ENT: Neck is soft and supple. No significant lymphadenopathy is noted. Oropharynx is clear. Moist mucous membranes. Neck has full range of motion without eliciting any pain. EYES: The sclera were anicteric and conjunctiva were pink and moist. Extraocular movements were intact and pupils were equal round and reactive to light. Eyelids were unremarkable. PULMONARY: Patient has decreased breath sounds in the right base CARDIOVASCULAR: Patient is tachycardic at 115 beats a minute. ABDOMEN: Soft and nontender with normal bowel sounds. No palpable organomegaly was noted. There is no palpable pulsatile mass. SKIN: Skin is clear with no lesions or rashes and otherwise unremarkable. NEUROLOGIC: Patient is alert and oriented 2. Cranial nerves II through XII are grossly intact. Motor and sensory are also intact. Normal speech, volume and content. Symmetrical smile. MUSCULOSKELETAL: Normal extremities with adequate strength and full range of motion. No lower extremity swelling or edema. No calf tenderness. LYMPHATICS: No significant lymphadenopathy is noted PSYCHIATRIC: Normal psychiatric evaluation. Limitations: no limitations Course Vital Signs 12/02/20 13:30 Temperature 97.9 F Pulse Rate 117 H Respiratory 16 Rate Blood Pressure 140/86 O2 Sat by Pulse 96 Oximetry Medical Decision Making - Medical Decision Making EKG shows sinus tachycardia with occasional PVC at a rate of 118 beats a minute NH interval is 112 QRS is 98 QT interval is 366 QTC is 513. Patient's EKG shows no ST segment depression or elevation I started the potassium replacement on this patient. I spoke with the [facility] significant admit the patient admitted the patient I wrote admitting orders - Lab Data Result diagrams: 12/02/20 13:40 12/02/20 13:40 Lab Results 12/02/20 12/02/20 12/02/20 Range/Units 13:40 13:40 13:40 WBC 7.0 (3.8-10.6) k/uL RBC 3.27 L (3.80-5.40) m/uL Hgb 9.2 L (11.4-16.0) gm/dL Hct 29.3 L (34.0-46.0) % MCV 89.8 (80.0-100.0) fL MCH 28.1 (25.0-35.0) pg MCHC 31.2 (31.0-37.0) g/dL RDW 14.7 (11.5-15.5) % Plt Count 360 (150-450) k/uL MPV 7.4 Neutrophils % 76 % Lymphocytes % 13 % Monocytes % 5 % Eosinophils % 3 % Basophils % 1 % Neutrophils # 5.3 (1.3-7.7) k/uL Lymphocytes # 0.9 L (1.0-4.8) k/uL Monocytes # 0.4 (0-1.0) k/uL Eosinophils # 0.2 (0-0.7) k/uL Basophils # 0.0 (0-0.2) k/uL Hypochromasia Slight APTT 26.9 (22.0-30.0) sec Sodium 138 (137-145) mmol/L Potassium 2.7 L* (3.5-5.1) mmol/L Chloride 92 L (98-107) mmol/L Carbon Dioxide 39 H (22-30) mmol/L Anion Gap 7 mmol/L BUN 9 (7-17) mg/dL Creatinine 0.99 (0.52-1.04) mg/dL Est GFR (CKD-EPI)AfAm 65 (>60 ml/min/1.73 sqM) Est GFR (CKD-EPI)NonAf 57 (>60 ml/min/1.73 sqM) Glucose 249 H (74-99) mg/dL Calcium 8.6 (8.4-10.2) mg/dL Troponin I (0.000-0.034) ng/mL 12/02/20 Range/Units 13:40 WBC (3.8-10.6) k/uL RBC (3.80-5.40) m/uL Hgb (11.4-16.0) gm/dL Hct (34.0-46.0) % MCV (80.0-100.0) fL MCH (25.0-35.0) pg MCHC (31.0-37.0) g/dL RDW (11.5-15.5) % Plt Count (150-450) k/uL MPV Neutrophils % % Lymphocytes % % Monocytes % % Eosinophils % % Basophils % % Neutrophils # (1.3-7.7) k/uL Lymphocytes # (1.0-4.8) k/uL Monocytes # (0-1.0) k/uL Eosinophils # (0-0.7) k/uL Basophils # (0-0.2) k/uL Hypochromasia APTT (22.0-30.0) sec Sodium (137-145) mmol/L Potassium (3.5-5.1) mmol/L Chloride (98-107) mmol/L Carbon Dioxide (22-30) mmol/L Anion Gap mmol/L BUN (7-17) mg/dL Creatinine (0.52-1.04) mg/dL Est GFR (CKD-EPI)AfAm (>60 ml/min/1.73 sqM) Est GFR (CKD-EPI)NonAf (>60 ml/min/1.73 sqM) Glucose (74-99) mg/dL Calcium (8.4-10.2) mg/dL Troponin I 0.022 (0.000-0.034) ng/mL Disposition Clinical Impression: Hypokalemia Disposition: ADMITTED IP TO THIS HOSP Referrals: Anand Flaherty MD [Primary Care Provider] - 1-2 days Time of Disposition: 15:32
[2020-12-02] MEDS ORDERED: Potassium Replacement Protocol 1 EACH MISC MISCELLANE PRN ×2 (15:17→16:04)
--- NOTE | 2020-12-02 15:44 | XR ---
EXAMINATION TYPE: XR chest 2V DATE OF EXAM: 12/02/2020 COMPARISON: 11/20/2020 HISTORY: 75-year-old female with difficulty breathing TECHNIQUE: AP and lateral views FINDINGS: Left PICC tip in the right atrium. Heart borderline enlarged. Continued small to moderate bilateral p leural effusions with bibasilar opacities. IMPRESSION: Borderline cardiomegaly and continued [id number] bilateral pleural effusions with adjacent ate lectasis and/or consolidation.
[2020-12-02] MEDS: POTASSIUM CHLORIDE ER 20 MEQ TAB.ER PO SCH ×3 (15:45→18:07)
--- NOTE | 2020-12-02 16:03 | P.HPIM ---
History of Present Illness This is a pleasant 75 years old female with past medical history of Coronary Artery Disease status post stent placement, Diabetes Mellitus, Hyperlipidemia, Hypertension, dementia She was recently discharged from this hospital on 11/20 for C. 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 Patient was sent by her primary doctor for hypokalemia with potassium was 2.2, repeat potassium in emergency room was 2.7. Her PCP is Dr. Anand Flaherty who saw her through zoom diony /virtual appointment for routine checkup and he was checking her potassium routinely per daughter at bedside, patient did not have any specific complaints, no diarrhea. Her stool is once to twice a day and it is formed. No vomiting. No abdominal pain. The Mack catheter was discontinued already by Dr. Linda Her Lasix was stopped 2 days ago because of hypokalemia as well. Patient speaks Jamaican but she understands Greek. Information were obtained with the help of the daughter at bedside She is slightly tachycardic with heart rate around 117. Vitals are stable Unremarkable except for hemoglobin of 9.2. 138, potassium 2.7 and creatinine normal 0.9. Glucose elevated at 249. Troponin is negative at 0.0-2 EKG showing sinus tachycardia with premature atrial complexes. With QTC of 513 Review of Systems CONSTITUTIONAL: No fever, no malaise, no fatigue. HEENT: No recent visual problems or hearing problems. Denied any sore throat. CARDIOVASCULAR: No orthopnea, PND, no palpitations, no syncope. PULMONARY: No shortness of breath, no cough, no hemoptysis. GASTROINTESTINAL: No diarrhea, no nausea, no vomiting, no abdominal pain. Normoactive bowel sounds. NEUROLOGICAL: No headaches, no weakness, no numbness. HEMATOLOGICAL: Denies any bleeding or petechiae. GENITOURINARY: Denies any burning micturition, frequency, or urgency. MUSCULOSKELETAL/RHEUMATOLOGICAL: Denies any joint pain, swelling, or any muscle pain. ENDOCRINE: Denies any polyuria or polydipsia. Past Medical History Past Medical History: Coronary Artery Disease (CAD), Diabetes Mellitus, Hyperlipidemia, Hypertension History of Any Multi-Drug Resistant Organisms: None Reported Past Surgical History: Cholecystectomy, Heart Catheterization With Stent, Orthopedic Surgery Additional Past Surgical History / Comment(s): hip surgery, cataract sx, left ankle surgery 2020 Past Anesthesia/Blood Transfusion Reactions: No Reported Reaction Date of Last Stent Placement:: 2000 Past Psychological History: No Psychological Hx Reported Smoking Status: Never smoker Past Alcohol Use History: None Reported Past Drug Use History: None Reported Medications and Allergies Home Medications Medication Instructions Recorded Confirmed Type Collagenase [Santyl] 1 applic TOPICAL HS 09/14/20 11/12/20 History Donepezil [Aricept] 5 mg PO DAILY 09/14/20 11/12/20 History Latanoprost/Pf [Latanoprost 0.005% 1 drop BOTH EYES HS 09/14/20 11/12/20 History Eye Drop] OLANZapine [ZyPREXA] 5 mg PO DAILY 09/14/20 11/12/20 History Cholecalciferol [Vitamin D3 (25 25 mcg PO DAILY 10/09/20 11/12/20 History Mcg = 1000 Iu)] Metoprolol Succinate (ER) [Toprol 200 mg PO DAILY #60 tab.er.24h 10/23/20 11/12/20 Rx XL] Pantoprazole Sodium [Protonix] 40 mg PO BID 30 Days #60 tablet.dr 10/23/20 11/12/20 Rx Sucralfate [Carafate] 1 gm PO AC-TID #90 tab 10/23/20 11/12/20 Rx Acetaminophen Tab [Tylenol] 650 mg PO Q6H PRN 10/26/20 11/12/20 History Pioglitazone [Actos] 30 mg PO DAILY 10/26/20 11/12/20 History Darbepoetin Aba [Aranesp] 40 mcg SQ Q7D 11/12/20 11/12/20 History Furosemide [Lasix] 40 mg PO DIRECTED 11/12/20 11/12/20 History DAPTOmycin [Cubicin] 500 mg IV DAILY #42 each 11/20/20 Rx Fidaxomicin [Dificid] 200 mg PO BID #14 tablet 11/20/20 Rx Sodium Bicarbonate Tab 650 mg PO TID #90 tab 11/20/20 Rx predniSONE See Taper PO DIRECTED #15 tab 11/20/20 Rx Allergies Allergy/AdvReac Type Severity Reaction Status Date / Time No Known Allergies Allergy Verified 12/02/20 13:32 Physical Exam Vitals: Vital Signs Temp Pulse Resp BP Pulse Ox 12/02/20 13:30 97.9 F 117 H 16 140/86 96 Intake and Output 12/02/20 12/02/20 12/02/20 06:59 14:59 22:59 Other: Weight 60.328 kg GENERAL: The patient is alert and oriented x3, not in any acute distress. Well developed, well nourished. HEENT: Pupils are round and equally reacting to light. EOMI. No scleral icterus. No conjunctival pallor. Normocephalic, atraumatic. No pharyngeal erythema. No thyromegaly. CARDIOVASCULAR: S1 and S2 present. No murmurs, rubs, or gallops. PULMONARY: Chest is clear to auscultation, no wheezing or crackles. ABDOMEN: Soft, nontender, nondistended, normoactive bowel sounds. No palpable organomegaly. MUSCULOSKELETAL: No joint swelling or deformity. -EXTREMITIES: No cyanosis, clubbing, or pedal edema. Left heel boot for her left heel pressure ulcer NEUROLOGICAL: Gross neurological examination did not reveal any focal deficits. SKIN: No rashes. No petechiae Results CBC & Chem 7: 12/02/20 13:40 12/02/20 13:40 Labs: Abnormal Lab Results - Last 24 Hours (Table) 12/02/20 12/02/20 Range/Units 13:40 13:40 RBC 3.27 L (3.80-5.40) m/uL Hgb 9.2 L (11.4-16.0) gm/dL Hct 29.3 L (34.0-46.0) % Lymphocytes # 0.9 L (1.0-4.8) k/uL Potassium 2.7 L* (3.5-5.1) mmol/L Chloride 92 L (98-107) mmol/L Carbon Dioxide 39 H (22-30) mmol/L Glucose 249 H (74-99) mg/dL Assessment and Plan Assessment: Acute hypokalemia Diabetes mellitus Hypertension Hyperlipidemia Artery disease status post stent placement History of urinary retention status post indwelling Mack catheter Recent C. diff infection stage II left buttock ulcer and stage III left heel ulcer Plan: This is a pleasant 75 years old female who presents with hypokalemia Replacement potassium per protocol. Check magnesium and placed per protocol. Monitor for diarrhea Consults infectious disease team Labs and medication were reviewed.. Continue same treatment. Continue with symptomatic treatment. Resume home medication. Monitor lytes and vitals. DVT and GI prophylaxis. Further recommendations depends on the clinical course of the patient DVT prophylaxis: Subcutaneous heparin GI Prophylaxis: Pepcid PT/OT: Pending Prognosis is guarded
[2020-12-02] MEDS ORDERED: Magnesium Replacement Protocol 1 EACH MISC MISCELLANE PRN (16:04)
[2020-12-02] MEDS ORDERED: ACETAMINOPHEN TAB 325 MG TAB PO PRN (20:06)
[2020-12-02] MEDS: HEPARIN SODIUM,PORCINE/PF 5,000 UNIT/0.5 ML SYRINGE SQ SCH (21:53)
[2020-12-02] MEDS: DAPTOmycin 500 MG in SODIUM CHLORIDE 0.9% 50 ML IVPB SCH (22:05)
[2020-12-03 03:38] LABS: African American GFR (CKD) 62 (>60 ml/min/1.73 sqM); Anion Gap 8 mmol/L; Blood Urea Nitrogen 9 mg/dL (7-17); Carbon Dioxide 40 mmol/L (22-30); Chloride 94 mmol/L (98-107); Glucose 185 mg/dL (74-99); Magnesium 1.4 mg/dL (1.6-2.3); Non-African American GFR(CKD) 54 (>60 ml/min/1.73 sqM); Potassium 3.2 mmol/L (3.5-5.1); Sodium 142 mmol/L (137-145)
[2020-12-03] MEDS: LATANOPROST 0.005% OPHTH DROPS 2.5 ML BTL BOTH EYES SCH ×2 (04:29→20:33)
[2020-12-03 07:48] LABS: Glucose,Whole Blood 144 mg/dL (75-99)
[2020-12-03] MEDS: HEPARIN SODIUM,PORCINE/PF 5,000 UNIT/0.5 ML SYRINGE SQ SCH ×2 (08:03→20:31)
[2020-12-03] MEDS: METOPROLOL SUCCINATE (ER) 100 MG TAB.ER.24H PO SCH (08:05)
[2020-12-03] MEDS: DONEPEZIL 5 MG TAB PO SCH (08:05)
[2020-12-03] MEDS: OLANZapine 5 MG TAB PO SCH (08:05)
[2020-12-03] MEDS: SUCRALFATE 1 GM TAB PO SCH ×3 (08:05→18:07)
[2020-12-03] MEDS: CHOLECALCIFEROL 25 MCG (1000 IU) TABLET PO SCH (08:05)
[2020-12-03] MEDS: PANTOPRAZOLE 40 MG TABLET PO SCH ×2 (08:05→18:07)
[2020-12-03] MEDS ORDERED: PIOGLITAZONE 30 MG TAB PO SCH (09:00)
--- NOTE | 2020-12-03 10:37 | P.CRDCN ---
History of Present Illness History of present illness: The patient is a 75-year-old Gibraltarian-speaking female with past medical history of coronary artery disease s/p PCI, type 2 diabetes, hypertension, and dyslipidemia. Cardiology was consulted for atrial fibrillation. Patient was sent to the emergency department by her PCP for hypokalemia with potassium was 2.2. She had a virtual follow-up appointment with her PCP she underwent routine checkup and he also checked her potassium is noted to be low. Her Lasix was stopped about 2 days ago. She denies any chest pain, shortness of breath, palpitations, lightheadedness, dizziness. Denies nausea, vomiting, diarrhea, abdominal pain. She is lying flat in bed, no acute distress. The patient was admitted to the hospital in October 2020 for sepsis secondary to C. diff infection and UTI. She was discharged in stable condition, however has returned with worsening shortness of breath, was diagnosed with CHF exacerbation and was diuresed. She returned again to the hospital 11/19/20 with complaints of weakness and diarrhea. She also was treated for her pressure ulcer of the left heel. Orthopedics saw the patient initially underwent removal of exposed screw to allow healing. On scheduled ostial versus postoperative changes and proximal disease recommended outpatient IV antibiotics. Patient had a PICC line placed. DIAGNOSTICS: EKG on admission shows atrial tachycardia with short AR interval, and PAC Chest x-ray revealed cardiomegaly, continued small amount of bilateral pleural effusions. Recent echocardiogram 10/15/2020 shows LV function of 55-60% with mild LVH, mild MR and small pericardial effusion Limited echocardiogram on 10/28/2011 revealed an EF of 45-50%, small generalized pericardial effusion Laboratory data: WBC 7.0, hemoglobin 9.2, platelets 360, sodium 142, potassium 3.2, BUN 9, serum creatinine 1.0, magnesium 1.4 REVIEW OF SYSTEMS: No fever or chills. No cough or expectoration. No diaphoresis. Patient denies headache, dizziness, blurred vision, double vision. Patient denies any stomach discomfort. No nausea, vomiting. No hematochezia. No hematemesis. Denies any black stools or blood in his stools. Denies dysuria or hematuria. No muscle weakness or numbness. PHYSICAL EXAMINATION: This is a 75-year-old female in no apparent distress at the time of my examination. Blood pressure 136/84, heart rate 87, afebrile, maintaining saturations on room air. HEENT: Head is atraumatic, normocephalic. Pupils are equal, round. Sclerae anicteric. Conjunctivae are clear. Mucous membranes of the mouth are moist. Neck is supple. There is no jugular venous distention. No carotid bruit is heard. CHEST EXAMINATION: Lungs are clear to auscultation. No chest wall tenderness is noted on palpation or with deep breathing. HEART EXAMINATION: Heart regular rate and rhythm. S1, S2 heard. No gallops or rub. Systolic murmur at the apex ABDOMEN: Soft, nontender. Bowel sounds are heard. No organomegaly noted. EXTREMITIES: 2+ peripheral pulses with no evidence of peripheral edema and no calf tenderness noted. Left heel ulcer covered in dressing NEUROLOGIC EXAMINATION: Patient is awake and alert. FINAL ASSESSMENT AND PLAN: Atrial tachycardia Hypokalemia Hypomagnesemia Chronic diastolic heart failure- appears euvolemic on exam Bilateral pleural effusions History of coronary artery disease History type 2 diabetes History of dyslipidemia History of hypertension History of urinary retention status post indwelling Mack catheter, now removed Recent C. diff infection Stage II left buttock ulcer and stage III left heel ulcer PLAN: -No evidence of atrial fibrillation on EKG -Place patient on cardiac telemetry, repeat EKG PRN -Replace potassium and magnesium per protocol -Recommend discontinuing Actos but will leave up to primary -Continue home metoprolol Further recommendations will be based upon clinical course The patient has been seen and evaluated. Plan of care has been reviewed and agreed upon by Dr Burgos. Past Medical History Past Medical History: Coronary Artery Disease (CAD), Diabetes Mellitus, Hyperlipidemia, Hypertension History of Any Multi-Drug Resistant Organisms: None Reported Past Surgical History: Cholecystectomy, Heart Catheterization With Stent, Orthopedic Surgery Additional Past Surgical History / Comment(s): hip surgery, cataract sx, left ankle surgery 2020 Past Anesthesia/Blood Transfusion Reactions: No Reported Reaction Date of Last Stent Placement:: 2000 Past Psychological History: No Psychological Hx Reported Smoking Status: Never smoker Past Alcohol Use History: None Reported Past Drug Use History: None Reported Medications and Allergies Home Medications Medication Instructions Recorded Confirmed Type Collagenase [Santyl] 1 applic TOPICAL HS 09/14/20 12/02/20 History Donepezil [Aricept] 5 mg PO DAILY 09/14/20 12/02/20 History Latanoprost/Pf [Latanoprost 0.005% 1 drop BOTH EYES HS 09/14/20 12/02/20 History Eye Drop] OLANZapine [ZyPREXA] 5 mg PO DAILY 09/14/20 12/02/20 History Cholecalciferol [Vitamin D3 (25 25 mcg PO DAILY 10/09/20 12/02/20 History Mcg = 1000 Iu)] Metoprolol Succinate (ER) [Toprol 200 mg PO DAILY #60 tab.er.24h 10/23/20 12/02/20 Rx XL] Pantoprazole Sodium [Protonix] 40 mg PO BID 30 Days #60 tablet.dr 10/23/20 12/02/20 Rx Sucralfate [Carafate] 1 gm PO AC-TID #90 tab 10/23/20 12/02/20 Rx Acetaminophen Tab [Tylenol] 650 mg PO Q6H PRN 10/26/20 12/02/20 History Pioglitazone [Actos] 30 mg PO DAILY 10/26/20 12/02/20 History Furosemide [Lasix] 40 mg PO DIRECTED 11/12/20 12/02/20 History Sodium Bicarbonate Tab 650 mg PO TID #90 tab 11/20/20 12/02/20 Rx DAPTOmycin [Cubicin] 500 mg IV DAILY@1730 12/02/20 12/02/20 History Allergies Allergy/AdvReac Type Severity Reaction Status Date / Time No Known Allergies Allergy Verified 12/02/20 17:49 Physical Exam Vitals: Vital Signs Temp Pulse Resp BP Pulse Ox 12/03/20 04:00 99 20 154/87 96 12/02/20 22:11 92 20 167/86 96 12/02/20 20:04 98 20 155/91 95 12/02/20 18:09 86 18 162/62 95 12/02/20 13:30 97.9 F 117 H 16 140/86 96 Results 12/02/20 13:40 12/03/20 03:04 Cardiac Enzymes 12/02/20 12/02/20 Range/Units 13:40 15:47 Troponin I 0.022 0.020 (0.000-0.034) ng/mL Coagulation 12/02/20 Range/Units 13:40 APTT 26.9 (22.0-30.0) sec CBC 12/02/20 Range/Units 13:40 WBC 7.0 (3.8-10.6) k/uL RBC 3.27 L (3.80-5.40) m/uL Hgb 9.2 L (11.4-16.0) gm/dL Hct 29.3 L (34.0-46.0) % Plt Count 360 (150-450) k/uL Comprehensive Metabolic Panel 12/02/20 12/03/20 Range/Units 13:40 03:04 Sodium 138 142 (137-145) mmol/L Potassium 2.7 L* 3.2 L (3.5-5.1) mmol/L Chloride 92 L 94 L (98-107) mmol/L Carbon Dioxide 39 H 40 H (22-30) mmol/L BUN 9 9 (7-17) mg/dL Creatinine 0.99 1.03 (0.52-1.04) mg/dL Glucose 249 H 185 H (74-99) mg/dL Calcium 8.6 9.0 (8.4-10.2) mg/dL Current Medications Generic Name Dose Route Start Last Admin Trade Name Freq PRN Reason Stop Dose Admin Acetaminophen 650 mg 12/02/20 20:06 Acetaminophen Tab 325 Mg Tab PO Q6H PRN Mild Pain or Fever > 100.5 Cholecalciferol 25 mcg 12/03/20 09:00 Cholecalciferol 25 Mcg (1000 Iu) Tablet PO DAILY [facility] Donepezil HCl 5 mg 12/03/20 09:00 Donepezil 5 Mg Tab PO DAILY [facility] Heparin Sodium (Porcine) 5,000 unit 12/02/20 21:00 12/02/20 21:53 Heparin Sodium,Porcine/Pf 5,000 Unit/0.5 Ml Syringe SQ 5,000 unit Q12HR ANNMARIE Administration Daptomycin 500 mg/ Sodium 50 mls @ 100 mls/hr 12/02/20 21:00 12/02/20 22:05 Chloride IVPB 100 mls/hr Q24H ANNMARIE Administration Latanoprost 1 drops 12/02/20 21:00 12/03/20 04:29 Latanoprost 0.005% Ophth Drops 2.5 Ml Btl BOTH EYES Not Given HS ANNMARIE Metoprolol Succinate 200 mg 12/03/20 09:00 Metoprolol Succinate (Er) 100 Mg Tab.Er.24h PO DAILY ANNMARIE Miscellaneous Information 1 each 12/02/20 15:17 Potassium Replacement Protocol 1 Each Misc MISCELLANE DAILY PRN Per Protocol Protocol Miscellaneous Information 1 each 12/02/20 16:04 Magnesium Replacement Protocol 1 Each Misc MISCELLANE DAILY PRN Per Protocol Protocol Olanzapine 5 mg 12/03/20 09:00 Olanzapine 5 Mg Tab PO DAILY [facility] Pantoprazole Sodium 40 mg 12/03/20 07:30 Pantoprazole 40 Mg Tablet PO BID@7530,1730 [facility] Pioglitazone HCl 30 mg 12/03/20 09:00 Pioglitazone 30 Mg Tab PO DAILY [facility] Sucralfate 1 gm 12/03/20 07:30 Sucralfate 1 Gm Tab PO AC-TID ANNMARIE 12/02/20 13:40 12/03/20 03:04
--- NOTE | 2020-12-03 11:30 | P.PN ---
Subjective This is a pleasant 75 years old female with past medical history of Coronary Artery Disease status post stent placement, Diabetes Mellitus, Hyperlipidemia, Hypertension, dementia She was recently discharged from this hospital on 11/20 for C. 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 Patient was sent by her primary doctor for hypokalemia with potassium was 2.2, repeat potassium in emergency room was 2.7. Her PCP is Dr. Anand Flaherty who saw her through zoom diony /virtual appointment for routine checkup and he was checking her potassium routinely per daughter at bedside, patient did not have any specific complaints, no diarrhea. Her stool is once to twice a day and it is formed. No vomiting. No abdominal pain. The Mack catheter was discontinued already by Dr. Linda Her Lasix was stopped 2 days ago because of hypokalemia as well. Patient speaks Bangladeshi but she understands Yi. Information were obtained with the help of the daughter at bedside She is slightly tachycardic with heart rate around 117. Vitals are stable Unremarkable except for hemoglobin of 9.2. 138, potassium 2.7 and creatinine normal 0.9. Glucose elevated at 249. Troponin is negative at 0.0-2 EKG showing sinus tachycardia with premature atrial complexes. With QTC of 513 12/03/2020 patient remains asymptomatic, her left ankle infection is stable while she continued on daptomycin, infectious disease team or reconsulted to check on the infection and the treatment plan Potassium improved to 3.2 however magnesium still low at 1.4 which will be replaced per protocol. [employer] they don't think patient has A. fib but it is atrial tachycardia and they recommended to stop Actos which is switched to glipizide and continued with insulin sliding scale Objective - Vital Signs Vital signs: Vital Signs Temp 98.2 F 12/03/20 07:51 Pulse 100 12/03/20 07:51 Resp 18 12/03/20 07:51 BP 176/69 12/03/20 07:51 Pulse Ox 93 L 12/03/20 07:51 Intake & Output 12/02/20 12/03/20 12/03/20 18:59 06:59 18:59 Intake Total 118 Balance 118 Weight 60.328 kg Intake: Oral 118 Other: # Voids 0 - Exam -GENERAL: The patient is alert and oriented x1-2, not in any acute distress. Well developed, well nourished. HEENT: Pupils are round and equally reacting to light. EOMI. No scleral icterus. No conjunctival pallor. Normocephalic, atraumatic. No pharyngeal erythema. No thyromegaly. CARDIOVASCULAR: S1 and S2 present. No murmurs, rubs, or gallops. PULMONARY: Chest is clear to auscultation, no wheezing or crackles. ABDOMEN: Soft, nontender, nondistended, normoactive bowel sounds. No palpable organomegaly. MUSCULOSKELETAL: No joint swelling or deformity. -EXTREMITIES: No cyanosis, clubbing, or pedal edema. Left ankle infection is improving with dressing is in place NEUROLOGICAL: Gross neurological examination did not reveal any focal deficits. SKIN: No rashes. no petechiae. - Labs CBC & Chem 7: 12/02/20 13:40 12/03/20 03:04 Labs: Abnormal Lab Results - Last 24 Hours (Table) 12/02/20 12/02/20 12/02/20 Range/Units 13:40 13:40 18:46 RBC 3.27 L (3.80-5.40) m/uL Hgb 9.2 L (11.4-16.0) gm/dL Hct 29.3 L (34.0-46.0) % Lymphocytes # 0.9 L (1.0-4.8) k/uL Potassium 2.7 L* (3.5-5.1) mmol/L Chloride 92 L (98-107) mmol/L Carbon Dioxide 39 H (22-30) mmol/L Glucose 249 H (74-99) mg/dL POC Glucose (mg/dL) (75-99) mg/dL Magnesium 1.4 L (1.6-2.3) mg/dL 12/03/20 12/03/20 Range/Units 03:04 07:46 RBC (3.80-5.40) m/uL Hgb (11.4-16.0) gm/dL Hct (34.0-46.0) % Lymphocytes # (1.0-4.8) k/uL Potassium 3.2 L (3.5-5.1) mmol/L Chloride 94 L (98-107) mmol/L Carbon Dioxide 40 H (22-30) mmol/L Glucose 185 H (74-99) mg/dL POC Glucose (mg/dL) 144 H (75-99) mg/dL Magnesium 1.4 L (1.6-2.3) mg/dL Assessment and Plan Assessment: Acute hypokalemia and hypomagnesemia Atrial tachycardia Diabetes mellitus Hypertension Hyperlipidemia Artery disease status post stent placement History of urinary retention status post indwelling Mack catheter Recent C. diff infection stage II left buttock ulcer and stage III left heel ulcer Plan: This is a pleasant 75 years old female who presents with hypokalemia Replacement of magnesium and potassium per protocol. Monitor for diarrhea Consults infectious disease team Labs and medication were reviewed.. Continue same treatment. Continue with symptomatic treatment. Resume home medication. Monitor lytes and vitals. DVT and GI prophylaxis. Further recommendations depends on the clinical course of the patient DVT prophylaxis: Subcutaneous heparin GI Prophylaxis: Pepcid
[2020-12-03 12:57] LABS: Glucose,Whole Blood 232 mg/dL (75-99)
[2020-12-03] MEDS: INSULIN ASPART (NovoLOG) 100 UNIT/ML VIAL SQ SCH ×3 (14:33→20:32)
[2020-12-03] MEDS ORDERED: DAPTOmycin 500 MG VIAL IV SCH (17:30)
[2020-12-03 17:44] LABS: Glucose,Whole Blood 75 mg/dL (75-99)
[2020-12-03 18:18] LABS: Glucose,Whole Blood 91 mg/dL (75-99)
[2020-12-03 20:12] LABS: Appearance,Urine Cloudy (Clear); Bacteria,Urine Rare /hpf; Bilirubin,Urine 1+ (Negative); Blood,Urine Small (Negative); Budding Yeast,Urine Moderate /hpf; Color,Urine Yellow; Glucose,Urine (UA) Negative (Negative); Ketones,Urine Negative (Negative); Leukocyte Esterase,Urine Large (Negative); Nitrite,Urine Negative (Negative); Protein,Urine 1+ (Negative); RBC,Urine 12 /hpf (0-5); Squamous Epithelial Cell,Urine <1 /hpf (0-4); Urobilinogen,Urine <2.0 mg/dL (<2.0); WBC,Urine 43 /hpf (0-5)
[2020-12-03 20:17] LABS: Glucose,Whole Blood 145 mg/dL (75-99)
[2020-12-03] MEDS: DAPTOmycin 500 MG in SODIUM CHLORIDE 0.9% 50 ML IVPB SCH (20:31)
[2020-12-04 02:24] LABS: Magnesium 1.5 mg/dL (1.6-2.3); Potassium 2.8 mmol/L (3.5-5.1)
[2020-12-04 02:30] LABS: Appearance,Urine Turbid (Clear); Bacteria,Urine Rare /hpf; Bilirubin,Urine Negative (Negative); Blood,Urine Small (Negative); Budding Yeast,Urine Many /hpf; Color,Urine Yellow; Glucose,Urine (UA) Negative (Negative); Hyaline Casts,Urine 18 /lpf (0-2); Ketones,Urine Negative (Negative); Leukocyte Esterase,Urine Large (Negative); Mucus,Urine Few /hpf; Nitrite,Urine Negative (Negative); PH, Urine 7.5 (5.0-8.0); Protein,Urine 2+ (Negative); RBC,Urine 40 /hpf (0-5); Specific Gravity,Urine 1.014 (1.001-1.035); Squamous Epithelial Cell,Urine 15 /hpf (0-4); Urobilinogen,Urine <2.0 mg/dL (<2.0); WBC,Urine >182 /hpf (0-5)
[2020-12-04] MEDS ORDERED: Potassium Replacement Protocol 1 EACH MISC MISCELLANE PRN (03:08)
[2020-12-04] MEDS: POTASSIUM CHLORIDE ER 20 MEQ TAB.ER PO SCH ×3 (03:19→05:38)
[2020-12-04] MEDS ORDERED: Magnesium Replacement Protocol 1 EACH MISC MISCELLANE PRN (03:30)
[2020-12-04] MEDS: MAGNESIUM SULFATE-D5W PMX 1 GM in DEXTROSE/WATER 1 100ML.BAG IVPB SCH ×2 (04:23→05:38)
[2020-12-04 06:28] LABS: Glucose,Whole Blood 162 mg/dL (75-99)
[2020-12-04 07:21] LABS: Glucose,Whole Blood 158 mg/dL (75-99)
[2020-12-04] MEDS: PANTOPRAZOLE 40 MG TABLET PO SCH ×2 (08:17→16:41)
[2020-12-04] MEDS: HEPARIN SODIUM,PORCINE/PF 5,000 UNIT/0.5 ML SYRINGE SQ SCH ×2 (08:17→21:29)
[2020-12-04] MEDS: CHOLECALCIFEROL 25 MCG (1000 IU) TABLET PO SCH (08:17)
[2020-12-04] MEDS: SUCRALFATE 1 GM TAB PO SCH ×3 (08:17→16:41)
[2020-12-04] MEDS: INSULIN ASPART (NovoLOG) 100 UNIT/ML VIAL SQ SCH ×4 (08:18→21:30)
[2020-12-04] MEDS: OLANZapine 5 MG TAB PO SCH (08:18)
[2020-12-04] MEDS: METOPROLOL SUCCINATE (ER) 100 MG TAB.ER.24H PO SCH (08:18)
[2020-12-04] MEDS: DONEPEZIL 5 MG TAB PO SCH (08:18)
--- NOTE | 2020-12-04 08:30 | P.CONS ---
History of Present Illness - Reason for Consult Consult date: 12/03/20 left heel osteomyelitis Requesting physician: Gustavo E Sheet - Chief Complaint low potassium on blood draw x 1 day - History of Present Illness History of present illness : Patient is 75-year-old female with a past medical history notable for left ankle fracture that has been treated with the surgical repair in this patient who did have a chronic nonhealing wound to the left posterior heel area patient was recently admitted to the hospital with the patient did have removal of the hardware and local culture were positive for Enterococcus faecalis for logistical reasons patient has been treated with daptomycin as it was too much of work for the family to do Unasyn or ampicillin every 6 hours patient also have a history of recurrent UTI and C. difficile colitis patient was noticed to have a low potassium on a routine blood draw for the patient has been sent to the ER for further evaluation patient denies having any fever or any chills, the patient denies any nausea no vomiting no abdominal pain or any diarrhea patient on presentation to the hospital was afebrile patient did have a normal white count kidney function was normal duration was 2.7 german PCR was negative patient did have a chest x-ray borderline cardiomegaly small to moderate bilateral pleural effusion patient was continued on daptomycin infectious disease was consulted for further management of antibiotic therapy, patient currently denies having any fever or chills some weakness no chest pain shortness of breath or cough she did have a nonhealing wound to the left posterior heel area however denies any worsening pain to the wound or any foul-smelling drainage Review of system: CONSTITUTIONAL: Positive for weakness denies fever. EYES: No complaint. ENT: No complaint. RESPIRATORY: No complaint. CARDIOVASCULAR: No complaint. GENITOURINARY: No complaint. GASTROINTESTINAL: No complaint. MUSCULOSKELETAL: As per history of present illness. INTEGUMENTARY: No complaint. PSYCHOLOGIC: No complaint. ENDOCRINE: No complaint. NEUROLOGIC: No complaint. Past medical history : Reviewed, documented below Past surgical history : Reviewed, documented below Social history: Reviewed, documented below Medications: Reviewed, as documented below EXAMINATION: Vital sigans= Reviewed and documented below GENERAL DESCRIPTION: Elderly female lying in bed, no distress. No tachypnea or a ccessory muscle of respiration use. HEENT: Shows Pallor , no scleral icterus. Oral mucous membrane is dry. NECK: Trachea central, no thyromegaly. LUNGS: Unlabored breathing. Clear to auscultation anteriorly. No wheeze or crackle. HEART: S1, S2, regular rate and rhythm. ABDOMEN: Soft, no tenderness , guarding or rigidity EXTREMITIES: No edema of feet. Left posterior heel wound with slough tissue m inimal surrounding swelling redness no foul-smelling drainage SKIN: No rash, no masses palpable. NEUROLOGICAL: The patient is awake, alert, oriented x3, mood and affect normal. LABS AND RADIOLOGY: Reviewed results see below Assessment : Patient with a left heel osteomyelitis with infected hardware which has been removed local culture positive for Enterococcus faecalis in this patient currently getting treatment with daptomycin, patient has been admitted to the hospital with low potassium patient currently with no fever or elevated white count and no evidence clinically of any worsening infection to the left heel area Plan: 1-patient to continue with the daptomycin 500 mg daily 2-local wound care with the Santyl followed by moist dressing keep the area of the pressure 3-we will check a CRP and a sed rate We will follow on clinical condition and cultures to further adjust medication i f needed Thank you for this consultation we will follow the patient along with you Past Medical History Past Medical History: Coronary Artery Disease (CAD), Diabetes Mellitus, Hyperlipidemia, Hypertension History of Any Multi-Drug Resistant Organisms: None Reported Past Surgical History: Cholecystectomy, Heart Catheterization With Stent, Orthopedic Surgery Additional Past Surgical History / Comment(s): hip surgery, cataract sx, left ankle surgery 2020 Past Anesthesia/Blood Transfusion Reactions: No Reported Reaction Date of Last Stent Placement:: 2000 Past Psychological History: No Psychological Hx Reported Smoking Status: Never smoker Past Alcohol Use History: None Reported Past Drug Use History: None Reported Medications and Allergies Home Medications Medication Instructions Recorded Confirmed Type Collagenase [Santyl] 1 applic TOPICAL HS 09/14/20 12/02/20 History Donepezil [Aricept] 5 mg PO DAILY 09/14/20 12/02/20 History Latanoprost/Pf [Latanoprost 0.005% 1 drop BOTH EYES HS 09/14/20 12/02/20 History Eye Drop] OLANZapine [ZyPREXA] 5 mg PO DAILY 09/14/20 12/02/20 History Cholecalciferol [Vitamin D3 (25 25 mcg PO DAILY 10/09/20 12/02/20 History Mcg = 1000 Iu)] Metoprolol Succinate (ER) [Toprol 200 mg PO DAILY #60 tab.er.24h 10/23/20 12/02/20 Rx XL] Pantoprazole Sodium [Protonix] 40 mg PO BID 30 Days #60 tablet.dr 10/23/20 12/02/20 Rx Sucralfate [Carafate] 1 gm PO AC-TID #90 tab 10/23/20 12/02/20 Rx Acetaminophen Tab [Tylenol] 650 mg PO Q6H PRN 10/26/20 12/02/20 History Pioglitazone [Actos] 30 mg PO DAILY 10/26/20 12/02/20 History Furosemide [Lasix] 40 mg PO DIRECTED 11/12/20 12/02/20 History Sodium Bicarbonate Tab 650 mg PO TID #90 tab 11/20/20 12/02/20 Rx DAPTOmycin [Cubicin] 500 mg IV DAILY@1730 12/02/20 12/02/20 History Allergies Allergy/AdvReac Type Severity Reaction Status Date / Time No Known Allergies Allergy Verified 12/02/20 17:49 Physical Exam Vitals: Vital Signs Temp Pulse Pulse Resp BP BP Pulse Ox 12/03/20 07:51 98.2 F 100 18 176/69 93 L 12/03/20 07:31 87 20 146/84 95 12/03/20 04:00 99 20 154/87 96 12/02/20 22:11 92 20 167/86 96 12/02/20 20:04 98 20 155/91 95 12/02/20 18:09 86 18 162/62 95 12/02/20 13:30 97.9 F 117 H 16 140/86 96 Intake and Output 12/02/20 12/03/20 12/03/20 22:59 06:59 14:59 Intake Total 118 Balance 118 Intake: Oral 118 Other: # Voids 0 Results CBC & Chem 7: 12/02/20 13:40 12/03/20 23:59 Labs: Abnormal Lab Results - Last 24 Hours (Table) 12/02/20 12/02/20 12/02/20 Range/Units 13:40 13:40 18:46 RBC 3.27 L (3.80-5.40) m/uL Hgb 9.2 L (11.4-16.0) gm/dL Hct 29.3 L (34.0-46.0) % Lymphocytes # 0.9 L (1.0-4.8) k/uL Potassium 2.7 L* (3.5-5.1) mmol/L Chloride 92 L (98-107) mmol/L Carbon Dioxide 39 H (22-30) mmol/L Glucose 249 H (74-99) mg/dL POC Glucose (mg/dL) (75-99) mg/dL Magnesium 1.4 L (1.6-2.3) mg/dL 12/03/20 12/03/20 Range/Units 03:04 07:46 RBC (3.80-5.40) m/uL Hgb (11.4-16.0) gm/dL Hct (34.0-46.0) % Lymphocytes # (1.0-4.8) k/uL Potassium 3.2 L (3.5-5.1) mmol/L Chloride 94 L (98-107) mmol/L Carbon Dioxide 40 H (22-30) mmol/L Glucose 185 H (74-99) mg/dL POC Glucose (mg/dL) 144 H (75-99) mg/dL Magnesium 1.4 L (1.6-2.3) mg/dL
[2020-12-04 08:44] LABS: African American GFR (CKD) 60 (>60 ml/min/1.73 sqM); Anion Gap 7 mmol/L; Blood Urea Nitrogen 9 mg/dL (7-17); Carbon Dioxide 37 mmol/L (22-30); Chloride 95 mmol/L (98-107); Glucose 151 mg/dL (74-99); Magnesium 2.2 mg/dL (1.6-2.3); Non-African American GFR(CKD) 52 (>60 ml/min/1.73 sqM); Potassium 3.4 mmol/L (3.5-5.1); Sodium 139 mmol/L (137-145)
--- NOTE | 2020-12-04 09:38 | P.PN ---
Subjective HPI The patient is a 75-year-old Polish-speaking female with past medical history of coronary artery disease s/p PCI, type 2 diabetes, hypertension, and dyslipidemia. Cardiology was consulted for atrial fibrillation. Patient was sent to the emergency department by her PCP for hypokalemia with potassium was 2.2. She had a virtual follow-up appointment with her PCP she underwent routine checkup and he also checked her potassium is noted to be low. Her Lasix was stopped about 2 days ago. The patient was admitted to the hospital in October 2020 for sepsis secondary to C. diff infection and UTI. She was discharged in stable condition, however has returned with worsening shortness of breath, was diagnosed with CHF exacerbation and was diuresed. She returned again to the hospital 11/19/20 with complaints of weakness and diarrhea. She also was treated for her pressure ulcer of the left heel. Orthopedics saw the patient initially underwent removal of exposed screw to allow healing. On scheduled ostial versus postoperative changes and proximal disease recommended outpatient IV antibiotics. Patient had a PICC line placed. EKG on admission shows atrial tachycardia with short DE interval, and PAC. Recent echocardiogram 10/15/2020 shows LV function of 55-60% with mild LVH, mild MR and small pericardial effusion. Limited echocardiogram on 10/28/2011 revealed an EF of 45-50%, small generalized pericardial effusion 12/04/20 Patient seen and examined at bedside, no acute distress. She denies any chest pain, shortness of breath, palpitations, lightheadedness, dizziness. Denies nausea, vomiting, diarrhea, abdominal pain. Telemetry reviewed patient in atrial tachycardia with PACs. No evidence of atrial fibrillation noted. She is tachycardic this morning and overnight HR 115-120s. Patient currently maintained on metoprolol succinate 200 mg daily. Currently receiving IV antibiotics. Telemetry reviewed sodium 139, potassium 4.4, BUN 9, serum creatinine 1.0, magnesium 2.2. PHYSICAL EXAMINATION: This is a 75-year-old female in no apparent distress at the time of my examination. Blood pressure 136/84, heart rate 87, afebrile, maintaining saturations on room air. HEENT: Neck Supple No JVD CHEST EXAMINATION: Lungs are clear to auscultation. No chest wall tenderness is noted on palpation or with deep breathing. HEART EXAMINATION: Heart regular rate, tachycardic and rhythm. S1, S2 heard. No gallops or rub. Systolic murmur at the apex ABDOMEN: Soft, nontender. Bowel sounds are heard. No organomegaly noted. EXTREMITIES: 2+ peripheral pulses with no evidence of peripheral edema and no calf tenderness noted. Left heel ulcer covered in dressing NEUROLOGIC EXAMINATION: Patient is awake and alert. FINAL ASSESSMENT AND PLAN: Atrial tachycardia Hypokalemia - improving Hypomagnesemia- improving Acute Kidney Injury Chronic diastolic heart failure- appears euvolemic on exam Bilateral pleural effusions History of coronary artery disease History type 2 diabetes History of dyslipidemia History of hypertension History of urinary retention status post indwelling Mack catheter, now removed Recent C. diff infection Stage II left buttock ulcer and stage III left heel ulcer PLAN: -No evidence of atrial fibrillation on EKG or telemetry -Start Cardizem 120mg daily for rate control -Replace potassium and magnesium per protocol -Recommend discontinuing Actos but will leave up to primary -Continue home metoprolol -From a cardiology perspective, no further testing at this time. If patient's heart rates are stable ok to continue current regimen and patient can be followed as an outpatient office. Objective - Vital Signs Vital signs: Vital Signs Temp 99.6 F 12/04/20 07:00 Pulse 119 H 12/04/20 07:00 Resp 16 12/04/20 07:00 BP 148/56 12/04/20 07:00 Pulse Ox 95 12/04/20 07:00 Intake & Output 12/03/20 12/04/20 12/04/20 18:59 06:59 18:59 Intake Total 418 355 Output Total 400 Balance 18 355 Weight 60.328 kg Intake: Oral 418 355 Output: Urine 400 Other: Voiding Method External Catheter Incontinent # Voids 3 1 # Bowel Movements 1 3 - Labs CBC & Chem 7: 12/02/20 13:40 12/04/20 07:09 Labs: Abnormal Lab Results - Last 24 Hours (Table) 12/03/20 12/03/20 12/03/20 Range/Units 12:56 20:00 20:16 Potassium (3.5-5.1) mmol/L Chloride (98-107) mmol/L Carbon Dioxide (22-30) mmol/L Creatinine (0.52-1.04) mg/dL Glucose (74-99) mg/dL POC Glucose (mg/dL) 232 H 145 H (75-99) mg/dL Magnesium (1.6-2.3) mg/dL Urine Appearance Cloudy H (Clear) Urine Protein 1+ H (Negative) Urine Blood Small H (Negative) Urine Bilirubin 1+ H (Negative) Ur Leukocyte Esterase Large H (Negative) Urine RBC 12 H (0-5) /hpf Urine WBC 43 H (0-5) /hpf Urine WBC Clumps (None) /hpf Ur Squamous Epith Cells (0-4) /hpf Urine Bacteria Rare H (None) /hpf Hyaline Casts (0-2) /lpf Urine Mucus (None) /hpf Urine Yeast (Budding) Moderate H (None) /hpf 12/03/20 12/04/20 12/04/20 Range/Units 23:59 01:45 06:27 Potassium 2.8 L (3.5-5.1) mmol/L Chloride (98-107) mmol/L Carbon Dioxide (22-30) mmol/L Creatinine (0.52-1.04) mg/dL Glucose (74-99) mg/dL POC Glucose (mg/dL) 162 H (75-99) mg/dL Magnesium 1.5 L (1.6-2.3) mg/dL Urine Appearance Turbid H (Clear) Urine Protein 2+ H (Negative) Urine Blood Small H (Negative) Urine Bilirubin (Negative) Ur Leukocyte Esterase Large H (Negative) Urine RBC 40 H (0-5) /hpf Urine WBC >182 H (0-5) /hpf Urine WBC Clumps Many H (None) /hpf Ur Squamous Epith Cells 15 H (0-4) /hpf Urine Bacteria Rare H (None) /hpf Hyaline Casts 18 H (0-2) /lpf Urine Mucus Few H (None) /hpf Urine Yeast (Budding) Many H (None) /hpf 12/04/20 12/04/20 Range/Units 07:09 07:19 Potassium 3.4 L (3.5-5.1) mmol/L Chloride 95 L (98-107) mmol/L Carbon Dioxide 37 H (22-30) mmol/L Creatinine 1.05 H (0.52-1.04) mg/dL Glucose 151 H (74-99) mg/dL POC Glucose (mg/dL) 158 H (75-99) mg/dL Magnesium (1.6-2.3) mg/dL Urine Appearance (Clear) Urine Protein (Negative) Urine Blood (Negative) Urine Bilirubin (Negative) Ur Leukocyte Esterase (Negative) Urine RBC (0-5) /hpf Urine WBC (0-5) /hpf Urine WBC Clumps (None) /hpf Ur Squamous Epith Cells (0-4) /hpf Urine Bacteria (None) /hpf Hyaline Casts (0-2) /lpf Urine Mucus (None) /hpf Urine Yeast (Budding) (None) /hpf
[2020-12-04] MEDS: DILTIAZEM CD 120 MG CAP.ER.24H PO SCH (09:56)
[2020-12-04 12:15] LABS: Glucose,Whole Blood 200 mg/dL (75-99)
--- NOTE | 2020-12-04 12:28 | P.CONS ---
History of Present Illness - Reason for Consult Consult date: 12/04/20 - History of Present Illness This is a 75-year-old female known to the wound care center being seen on for nonhealing ulceration to the left heel. Patient has history of diabetes. We've been utilizing Santyl to the ulceration site. The left posterior calcaneus ulcerations related to surgical intervention post fall. The ulceration was closed with sutures however once the sutures were removed ulceration open resulting in open ulceration. At this time the ulceration is a partial thickness wound with etiology of open surgical located on the left posterior calcaneus. The wound measurements approximately 2.3X1.8X 1.2cm with bone and harware exposed. There is tunneling present with exposure of hardware. Wound edges are distinct with the outlined attached to the wound base. Minimal to no granulation is noted. There is a large amount of necrotic tissue within the wound that including eschar Slough and devitalized tissue. periwound exhibits dry scaly and erythema. Patient was supposed to follow-up with her surgeon last week for discussion of possible removal of hardware. However due to the exposure of hardware a decision will need to be made if the hardware is going to be removed. Left buttocks ulceration was healed last week however there is some redness noted to the site. Review Of Systems: Constitutional: No fever, no chills, no night sweats. No weight change. No weakness, fatigue or lethargy. No daytime sleepiness. Integumentary:reports wounds, no lesions. No rash or pruritus. No unusual bruising. No change in hair or nails. Physical exam: General Appearance: Alert, cooperative, no distress, appears stated age. Skin: See HPI all other Skin color, texture, tugor normal, no rashes or lesions. Neurologic: Alert oriented x3 Assessment: 1. Pressure ulcer left heel stage III 2. Type 2 diabetes with foot ulcer Plan: 1. Left calcaneus: Apply Santyl, saline moist gauze, dry gauze, rolled gauze and secure with paper tape. Change daily. 2. Continue to utilize a heel protector. 3. Minimal weightbearing status to the left calcaneus 4. Apply zinc barrier cream daily to left buttocks 5. Next wound care appointment is 12/11/2020 @ 2:15 Thank you for the consultation any questions please contact the wound care center. DNP note has been reviewed and discussed with Dr. Kim and the impression and plan of care has been directed as dictated. Past Medical History Past Medical History: Coronary Artery Disease (CAD), Diabetes Mellitus, Hyperlipidemia, Hypertension History of Any Multi-Drug Resistant Organisms: None Reported Past Surgical History: Cholecystectomy, Heart Catheterization With Stent, Orthopedic Surgery Additional Past Surgical History / Comment(s): hip surgery, cataract sx, left ankle surgery 2020 Past Anesthesia/Blood Transfusion Reactions: No Reported Reaction Date of Last Stent Placement:: 2000 Past Psychological History: No Psychological Hx Reported Smoking Status: Never smoker Past Alcohol Use History: None Reported Past Drug Use History: None Reported Medications and Allergies Home Medications Medication Instructions Recorded Confirmed Type Collagenase [Santyl] 1 applic TOPICAL HS 09/14/20 12/02/20 History Donepezil [Aricept] 5 mg PO DAILY 09/14/20 12/02/20 History Latanoprost/Pf [Latanoprost 0.005% 1 drop BOTH EYES HS 09/14/20 12/02/20 History Eye Drop] OLANZapine [ZyPREXA] 5 mg PO DAILY 09/14/20 12/02/20 History Cholecalciferol [Vitamin D3 (25 25 mcg PO DAILY 10/09/20 12/02/20 History Mcg = 1000 Iu)] Metoprolol Succinate (ER) [Toprol 200 mg PO DAILY #60 tab.er.24h 10/23/20 12/02/20 Rx XL] Pantoprazole Sodium [Protonix] 40 mg PO BID 30 Days #60 tablet. 10/23/20 12/02/20 Rx Sucralfate [Carafate] 1 gm PO AC-TID #90 tab 10/23/20 12/02/20 Rx Acetaminophen Tab [Tylenol] 650 mg PO Q6H PRN 10/26/20 12/02/20 History Pioglitazone [Actos] 30 mg PO DAILY 10/26/20 12/02/20 History Furosemide [Lasix] 40 mg PO DIRECTED 11/12/20 12/02/20 History Sodium Bicarbonate Tab 650 mg PO TID #90 tab 11/20/20 12/02/20 Rx DAPTOmycin [Cubicin] 500 mg IV DAILY@1730 12/02/20 12/02/20 History Allergies Allergy/AdvReac Type Severity Reaction Status Date / Time No Known Allergies Allergy Verified 12/02/20 17:49 Physical Exam Vitals: Vital Signs Temp Pulse Resp BP Pulse Ox 12/04/20 08:00 119 H 16 12/04/20 07:00 99.6 F 119 H 16 148/56 95 12/04/20 01:30 98.9 F 116 H 20 164/77 94 L 12/03/20 22:35 99.1 F 126 H 20 94 L 12/03/20 20:00 126 H 12/03/20 19:20 99.0 F 91 22 156/71 98 12/03/20 14:56 98.7 F 121 H 18 144/79 95 12/03/20 14:00 100 18 Intake and Output 12/03/20 12/04/20 12/04/20 22:59 06:59 14:59 Intake Total 355 Output Total 400 Balance -400 355 Intake: Oral 355 Output: Urine 400 Other: Voiding Method Incontinent Incontinent # Voids 1 1 # Bowel Movements 3 Results CBC & Chem 7: 12/02/20 13:40 12/04/20 07:09 Labs: Abnormal Lab Results - Last 24 Hours (Table) 12/03/20 12/03/20 12/03/20 Range/Units 12:56 20:00 20:16 Potassium (3.5-5.1) mmol/L Chloride (98-107) mmol/L Carbon Dioxide (22-30) mmol/L Creatinine (0.52-1.04) mg/dL Glucose (74-99) mg/dL POC Glucose (mg/dL) 232 H 145 H (75-99) mg/dL Magnesium (1.6-2.3) mg/dL Urine Appearance Cloudy H (Clear) Urine Protein 1+ H (Negative) Urine Blood Small H (Negative) Urine Bilirubin 1+ H (Negative) Ur Leukocyte Esterase Large H (Negative) Urine RBC 12 H (0-5) /hpf Urine WBC 43 H (0-5) /hpf Urine WBC Clumps (None) /hpf Ur Squamous Epith Cells (0-4) /hpf Urine Bacteria Rare H (None) /hpf Hyaline Casts (0-2) /lpf Urine Mucus (None) /hpf Urine Yeast (Budding) Moderate H (None) /hpf 12/03/20 12/04/20 12/04/20 Range/Units 23:59 01:45 06:27 Potassium 2.8 L (3.5-5.1) mmol/L Chloride (98-107) mmol/L Carbon Dioxide (22-30) mmol/L Creatinine (0.52-1.04) mg/dL Glucose (74-99) mg/dL POC Glucose (mg/dL) 162 H (75-99) mg/dL Magnesium 1.5 L (1.6-2.3) mg/dL Urine Appearance Turbid H (Clear) Urine Protein 2+ H (Negative) Urine Blood Small H (Negative) Urine Bilirubin (Negative) Ur Leukocyte Esterase Large H (Negative) Urine RBC 40 H (0-5) /hpf Urine WBC >182 H (0-5) /hpf Urine WBC Clumps Many H (None) /hpf Ur Squamous Epith Cells 15 H (0-4) /hpf Urine Bacteria Rare H (None) /hpf Hyaline Casts 18 H (0-2) /lpf Urine Mucus Few H (None) /hpf Urine Yeast (Budding) Many H (None) /hpf 12/04/20 12/04/20 12/04/20 Range/Units 07:09 07:19 12:14 Potassium 3.4 L (3.5-5.1) mmol/L Chloride 95 L (98-107) mmol/L Carbon Dioxide 37 H (22-30) mmol/L Creatinine 1.05 H (0.52-1.04) mg/dL Glucose 151 H (74-99) mg/dL POC Glucose (mg/dL) 158 H 200 H (75-99) mg/dL Magnesium (1.6-2.3) mg/dL Urine Appearance (Clear) Urine Protein (Negative) Urine Blood (Negative) Urine Bilirubin (Negative) Ur Leukocyte Esterase (Negative) Urine RBC (0-5) /hpf Urine WBC (0-5) /hpf Urine WBC Clumps (None) /hpf Ur Squamous Epith Cells (0-4) /hpf Urine Bacteria (None) /hpf Hyaline Casts (0-2) /lpf Urine Mucus (None) /hpf Urine Yeast (Budding) (None) /hpf Microbiology - Last 24 Hours (Table) 12/04/20 01:45 Urine Culture - Preliminary Urine,Catheterized Assessment and Plan (1) Diabetic foot ulcer Current Visit: No Status: Acute Code(s): E11.621 - TYPE 2 DIABETES MELLITUS WITH FOOT ULCER; L97.509 - NON-PRESSURE CHRONIC ULCER OTH PRT UNSP FOOT W UNSP SEVERITY SNOMED Code(s): 309343363 (2) Pressure ulcer of left heel, stage 3 Current Visit: No Status: Acute Code(s): L89.623 - PRESSURE ULCER OF LEFT HEEL, STAGE 3 SNOMED Code(s): 868308512
--- NOTE | 2020-12-04 12:45 | P.PN ---
Subjective This is a pleasant 75 years old female with past medical history of Coronary Artery Disease status post stent placement, Diabetes Mellitus, Hyperlipidemia, Hypertension, dementia She was recently discharged from this hospital on 11/20 for C. 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 Patient was sent by her primary doctor for hypokalemia with potassium was 2.2, repeat potassium in emergency room was 2.7. Her PCP is Dr. Anand Flaherty who saw her through zoom diony /virtual appointment for routine checkup and he was checking her potassium routinely per daughter at bedside, patient did not have any specific complaints, no diarrhea. Her stool is once to twice a day and it is formed. No vomiting. No abdominal pain. The Mack catheter was discontinued already by Dr. Linda Her Lasix was stopped 2 days ago because of hypokalemia as well. Patient speaks Croatian but she understands Macedonian. Information were obtained with the help of the daughter at bedside She is slightly tachycardic with heart rate around 117. Vitals are stable Unremarkable except for hemoglobin of 9.2. 138, potassium 2.7 and creatinine normal 0.9. Glucose elevated at 249. Troponin is negative at 0.0-2 EKG showing sinus tachycardia with premature atrial complexes. With QTC of 513 12/03/2020 patient remains asymptomatic, her left ankle infection is stable while she continued on daptomycin, infectious disease team or reconsulted to check on the infection and the treatment plan Potassium improved to 3.2 however magnesium still low at 1.4 which will be replaced per protocol. Sample Case Porter they don't think patient has A. fib but it is atrial tachycardia and they recommended to stop Actos which is switched to glipizide and continued with insulin sliding scale 12/04/2020 Patient remains confused, which looks combination of her baseline besides metabolic encephalopathy secondary to have infection including left heel osteomyelitis. Also her urine analysis is suspicious for UTI and urine culture is pending. She still tachycardic, rn lactation evaluated the patient, no A. fib. They started the patient on Cardizem 120 daily we'll keep monitoring heart rate. Low potassium improved today to 3.4, toes 2.8 yesterday and low magnesium back to normal 2.2 was 1.5 last evening. We will keep monitoring Her glucose was elevated after discontinuing Actos. Increase his glipizide dose to 5 mg daily. Patient continued with daptomycin Objective - Vital Signs Vital signs: Vital Signs Temp 99.6 F 12/04/20 07:00 Pulse 119 H 12/04/20 08:00 Resp 16 12/04/20 08:00 BP 148/56 12/04/20 07:00 Pulse Ox 95 12/04/20 07:00 Intake & Output 12/03/20 12/04/20 12/04/20 18:59 06:59 18:59 Intake Total 418 355 Output Total 400 Balance 18 355 Weight 60.328 kg Intake: Oral 418 355 Output: Urine 400 Other: Voiding Method External Catheter Incontinent Incontinent # Voids 3 1 # Bowel Movements 1 3 - Exam -GENERAL: The patient is alert and oriented x1-2, not in any acute distress. Well developed, well nourished. HEENT: Pupils are round and equally reacting to light. EOMI. No scleral icterus. No conjunctival pallor. Normocephalic, atraumatic. No pharyngeal erythema. No thyromegaly. CARDIOVASCULAR: S1 and S2 present. No murmurs, rubs, or gallops. PULMONARY: Chest is clear to auscultation, no wheezing or crackles. ABDOMEN: Soft, nontender, nondistended, normoactive bowel sounds. No palpable organomegaly. MUSCULOSKELETAL: No joint swelling or deformity. -EXTREMITIES: No cyanosis, clubbing, or pedal edema. Left ankle infection is improving with dressing is in place NEUROLOGICAL: Gross neurological examination did not reveal any focal deficits. SKIN: No rashes. no petechiae. - Labs CBC & Chem 7: 12/02/20 13:40 12/04/20 07:09 Labs: Abnormal Lab Results - Last 24 Hours (Table) 12/03/20 12/03/20 12/03/20 Range/Units 12:56 20:00 20:16 Potassium (3.5-5.1) mmol/L Chloride (98-107) mmol/L Carbon Dioxide (22-30) mmol/L Creatinine (0.52-1.04) mg/dL Glucose (74-99) mg/dL POC Glucose (mg/dL) 232 H 145 H (75-99) mg/dL Magnesium (1.6-2.3) mg/dL Urine Appearance Cloudy H (Clear) Urine Protein 1+ H (Negative) Urine Blood Small H (Negative) Urine Bilirubin 1+ H (Negative) Ur Leukocyte Esterase Large H (Negative) Urine RBC 12 H (0-5) /hpf Urine WBC 43 H (0-5) /hpf Urine WBC Clumps (None) /hpf Ur Squamous Epith Cells (0-4) /hpf Urine Bacteria Rare H (None) /hpf Hyaline Casts (0-2) /lpf Urine Mucus (None) /hpf Urine Yeast (Budding) Moderate H (None) /hpf 12/03/20 12/04/20 12/04/20 Range/Units 23:59 01:45 06:27 Potassium 2.8 L (3.5-5.1) mmol/L Chloride (98-107) mmol/L Carbon Dioxide (22-30) mmol/L Creatinine (0.52-1.04) mg/dL Glucose (74-99) mg/dL POC Glucose (mg/dL) 162 H (75-99) mg/dL Magnesium 1.5 L (1.6-2.3) mg/dL Urine Appearance Turbid H (Clear) Urine Protein 2+ H (Negative) Urine Blood Small H (Negative) Urine Bilirubin (Negative) Ur Leukocyte Esterase Large H (Negative) Urine RBC 40 H (0-5) /hpf Urine WBC >182 H (0-5) /hpf Urine WBC Clumps Many H (None) /hpf Ur Squamous Epith Cells 15 H (0-4) /hpf Urine Bacteria Rare H (None) /hpf Hyaline Casts 18 H (0-2) /lpf Urine Mucus Few H (None) /hpf Urine Yeast (Budding) Many H (None) /hpf 12/04/20 12/04/20 12/04/20 Range/Units 07:09 07:19 12:14 Potassium 3.4 L (3.5-5.1) mmol/L Chloride 95 L (98-107) mmol/L Carbon Dioxide 37 H (22-30) mmol/L Creatinine 1.05 H (0.52-1.04) mg/dL Glucose 151 H (74-99) mg/dL POC Glucose (mg/dL) 158 H 200 H (75-99) mg/dL Magnesium (1.6-2.3) mg/dL Urine Appearance (Clear) Urine Protein (Negative) Urine Blood (Negative) Urine Bilirubin (Negative) Ur Leukocyte Esterase (Negative) Urine RBC (0-5) /hpf Urine WBC (0-5) /hpf Urine WBC Clumps (None) /hpf Ur Squamous Epith Cells (0-4) /hpf Urine Bacteria (None) /hpf Hyaline Casts (0-2) /lpf Urine Mucus (None) /hpf Urine Yeast (Budding) (None) /hpf Microbiology - Last 24 Hours (Table) 12/04/20 01:45 Urine Culture - Preliminary Urine,Catheterized Assessment and Plan Assessment: Acute hypokalemia and hypomagnesemia, improving Atrial tachycardia Diabetes mellitus Hypertension Hyperlipidemia Artery disease status post stent placement History of urinary retention status post indwelling Mack catheter Recent C. diff infection stage II left buttock ulcer and stage III left heel ulcer Plan: This is a pleasant 75 years old female who presents with hypokalemia Replacement of magnesium and potassium per protocol. Follow-up urine culture Follow-up recommendation by ID team, continue with daptomycin rn lactation on the case and recommended Cardizem no further workup for now Labs and medication were reviewed.. Continue same treatment. Continue with symptomatic treatment. Resume home medication. Monitor lytes and vitals. DVT and GI prophylaxis. Further recommendations depends on the clinical course of the patient DVT prophylaxis: Subcutaneous heparin GI Prophylaxis: Pepcid
[2020-12-04 13:26] VITALS: BMI 22.8
[2020-12-04] MEDS: COLLAGENASE 250 UNIT/GM OINTMENT 30 GM TUBE TOPICAL SCH (16:41)
[2020-12-04 17:06] LABS: Glucose,Whole Blood 223 mg/dL (75-99)
[2020-12-04 17:21] LABS: Magnesium 2.2 mg/dL (1.6-2.3)
[2020-12-04 17:27] LABS: Potassium 4.3 mmol/L (3.5-5.1)
[2020-12-04 20:46] LABS: Glucose,Whole Blood 102 mg/dL (75-99)
[2020-12-04] MEDS: DAPTOmycin 500 MG in SODIUM CHLORIDE 0.9% 50 ML IVPB SCH (21:29)
[2020-12-04] MEDS: LATANOPROST 0.005% OPHTH DROPS 2.5 ML BTL BOTH EYES SCH (22:31)
--- NOTE | 2020-12-05 01:33 | PN ---
PROGRESS NOTE DATE OF SERVICE: 12/04/2020 REASON FOR FOLLOWUP: 1. Left heel nonhealing wound with underlying osteomyelitis. 2. Positive UA. INTERVAL HISTORY: Patient is currently afebrile. Patient is breathing comfortably. Patient denies having any chest pain, shortness of breath, cough, no abdominal pain, or any worsening pain to the left heel wound area. PHYSICAL EXAMINATION: Blood pressure 149/69, pulse of 90, temperature 98.5. She is 92% on room air. General description is an elderly female lying in bed in no distress. Respiratory system: Unlabored breathing, clear to auscultation anteriorly. Heart S1, S2. Regular rate and rhythm. Abdomen soft, no tenderness. Left heel wound is currently dressed. No obvious drainage on the dressing. DIAGNOSTIC IMPRESSION AND PLAN: Patient with left heel wound with concern for underlying osteomyelitis was inpatient is covered with daptomycin to continue local wound care with Santyl. Keep the area off the pressure. Family at the bedside. Questions were answered. MMODL / IJN: [id number] /
[2020-12-05 06:06] LABS: African American GFR (CKD) 59 (>60 ml/min/1.73 sqM); Anion Gap 5 mmol/L; Blood Urea Nitrogen 11 mg/dL (7-17); Calcium 9.1 mg/dL (8.4-10.2); Carbon Dioxide 35 mmol/L (22-30); Chloride 96 mmol/L (98-107); Glucose 97 mg/dL (74-99); Magnesium 2.1 mg/dL (1.6-2.3); Non-African American GFR(CKD) 52 (>60 ml/min/1.73 sqM); Potassium 3.6 mmol/L (3.5-5.1); Sodium 136 mmol/L (137-145)
[2020-12-05] MEDS: SUCRALFATE 1 GM TAB PO SCH ×3 (08:35→17:42)
[2020-12-05] MEDS: METOPROLOL SUCCINATE (ER) 100 MG TAB.ER.24H PO SCH (08:35)
[2020-12-05] MEDS: PANTOPRAZOLE 40 MG TABLET PO SCH ×2 (08:35→17:42)
[2020-12-05] MEDS: OLANZapine 5 MG TAB PO SCH (08:35)
[2020-12-05] MEDS: DILTIAZEM CD 120 MG CAP.ER.24H PO SCH (08:36)
[2020-12-05] MEDS: CHOLECALCIFEROL 25 MCG (1000 IU) TABLET PO SCH (08:36)
[2020-12-05] MEDS: HEPARIN SODIUM,PORCINE/PF 5,000 UNIT/0.5 ML SYRINGE SQ SCH ×2 (08:36→19:54)
[2020-12-05] MEDS: DONEPEZIL 5 MG TAB PO SCH (08:36)
[2020-12-05 08:39] LABS: Glucose,Whole Blood 145 mg/dL (75-99)
[2020-12-05] MEDS: INSULIN ASPART (NovoLOG) 100 UNIT/ML VIAL SQ SCH ×4 (10:05→21:56)
[2020-12-05 12:33] LABS: Glucose,Whole Blood 165 mg/dL (75-99)
[2020-12-05] MEDS ORDERED: FLUCONAZOLE IN NACL,ISO-OSM 100 MG in SALINE 1 50ML.BAG IVPB SCH (14:00)
[2020-12-05] MEDS: COLLAGENASE 250 UNIT/GM OINTMENT 30 GM TUBE TOPICAL SCH (14:50)
--- NOTE | 2020-12-05 16:12 | PN ---
PROGRESS NOTE DATE OF SERVICE: 12/05/2020 REASON FOR FOLLOWUP: Left posterior ankle osteomyelitis. INTERVAL HISTORY: The patient is afebrile. The patient is currently breathing comfortably. Denies having any chest pain, shortness of breath, cough, no abdominal pain, no diarrhea. Denies any urinary symptoms. PHYSICAL EXAMINATION: Blood pressure 154/80 with a pulse of 91, temperature 98.9. She is 95% on room air. General description is an elderly female lying in bed in no distress. Respiratory system: Unlabored breathing, clear to auscultation anteriorly. Heart S1, S2. Regular rate and rhythm. Abdomen soft, no tenderness. Left heel is currently covered. No drainage on the dressing. LABS: BUN of 11, creatinine 1.07. DIAGNOSTIC IMPRESSION AND PLAN: 1. Patient with left heel nonhealing wound with secondary cellulitis and osteomyelitis. Previous culture positive for Enterococcus faecalis for which the patient is currently covered with daptomycin to continue to finish a 6 week course of therapy. Local wound care with Santyl. Close outpatient followup. 2. Positive urine with yeast. No urinary symptoms. Possible colonization. No need for any fungal at this point. MMODL / IJN: [id number] /
[2020-12-05 17:33] LABS: Glucose,Whole Blood 197 mg/dL (75-99)
[2020-12-05 19:52] LABS: Glucose,Whole Blood 81 mg/dL (75-99)
[2020-12-05] MEDS: DAPTOmycin 500 MG in SODIUM CHLORIDE 0.9% 50 ML IVPB SCH (19:54)
[2020-12-05] MEDS: LATANOPROST 0.005% OPHTH DROPS 2.5 ML BTL BOTH EYES SCH (19:55)
[2020-12-06 06:55] LABS: Glucose,Whole Blood 120 mg/dL (75-99)
[2020-12-06 08:28] VITALS: BP 101/47; RESP 16; TEMP 98.3
[2020-12-06] MEDS: CHOLECALCIFEROL 25 MCG (1000 IU) TABLET PO SCH (08:30)
[2020-12-06] MEDS: METOPROLOL SUCCINATE (ER) 100 MG TAB.ER.24H PO SCH (08:30)
[2020-12-06] MEDS: SUCRALFATE 1 GM TAB PO SCH ×2 (08:31→13:10)
[2020-12-06] MEDS: DILTIAZEM CD 120 MG CAP.ER.24H PO SCH (08:31)
[2020-12-06] MEDS: HEPARIN SODIUM,PORCINE/PF 5,000 UNIT/0.5 ML SYRINGE SQ SCH (08:31)
[2020-12-06] MEDS: PANTOPRAZOLE 40 MG TABLET PO SCH (08:31)
[2020-12-06] MEDS: OLANZapine 5 MG TAB PO SCH (08:31)
[2020-12-06] MEDS: COLLAGENASE 250 UNIT/GM OINTMENT 30 GM TUBE TOPICAL SCH (08:32)
[2020-12-06 10:34] VITALS: PULSE 76
--- NOTE | 2020-12-06 11:59 | P.PN ---
Subjective Progress Note Date: 12/05/20 75 years old female with past medical history of Coronary Artery Disease status post stent placement, Diabetes Mellitus, Hyperlipidemia, Hypertension, dementia She was recently discharged from this hospital on 11/20 for C. 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 Patient was sent by her primary doctor for hypokalemia with potassium was 2.2, repeat potassium in emergency room was 2.7. Her PCP is Dr. Anand Flaherty who saw her through zoom diony /virtual appointment for routine checkup and he was checking her potassium routinely per daughter at bedside, patient did not have any specific complaints, no diarrhea. Her stool is once to twice a day and it is formed. No vomiting. No abdominal pain. The Mack catheter was discontinued already by Dr. Linda Her Lasix was stopped 2 days ago because of hypokalemia as well. Patient speaks Sami but she understands Tamazight. Information were obtained with the help of the daughter at bedside Objective - Vital Signs Vital signs: Vital Signs Temp 98.9 F 12/05/20 08:00 Pulse 91 12/05/20 08:00 Resp 18 12/05/20 08:00 BP 154/80 12/05/20 08:00 Pulse Ox 95 12/05/20 08:00 Intake & Output 12/04/20 12/05/20 12/05/20 18:59 06:59 18:59 Intake Total 473 Balance 473 Weight 60.328 kg Intake: Oral 473 Other: Voiding Method Incontinent Incontinent # Voids 1 # Bowel Movements 1 1 - Exam -GENERAL: The patient is alert and oriented x1-2, not in any acute distress. Well developed, well nourished. HEENT: Pupils are round and equally reacting to light. EOMI. No scleral icterus. No conjunctival pallor. Normocephalic, atraumatic. No pharyngeal erythema. No thyromegaly. CARDIOVASCULAR: S1 and S2 present. No murmurs, rubs, or gallops. PULMONARY: Chest is clear to auscultation, no wheezing or crackles. ABDOMEN: Soft, nontender, nondistended, normoactive bowel sounds. No palpable organomegaly. MUSCULOSKELETAL: No joint swelling or deformity. -EXTREMITIES: No cyanosis, clubbing, or pedal edema. Left ankle infection is improving with dressing is in place NEUROLOGICAL: Gross neurological examination did not reveal any focal deficits. SKIN: No rashes. no petechiae. - Labs CBC & Chem 7: 12/02/20 13:40 12/05/20 05:05 Labs: Abnormal Lab Results - Last 24 Hours (Table) 12/04/20 12/04/20 12/05/20 Range/Units 17:02 20:45 05:05 Sodium 136 L (137-145) mmol/L Chloride 96 L (98-107) mmol/L Carbon Dioxide 35 H (22-30) mmol/L Creatinine 1.07 H (0.52-1.04) mg/dL POC Glucose (mg/dL) 223 H 102 H (75-99) mg/dL 12/05/20 12/05/20 Range/Units 08:37 12:30 Sodium (137-145) mmol/L Chloride (98-107) mmol/L Carbon Dioxide (22-30) mmol/L Creatinine (0.52-1.04) mg/dL POC Glucose (mg/dL) 145 H 165 H (75-99) mg/dL Microbiology - Last 24 Hours (Table) 12/04/20 01:45 Urine Culture - Preliminary Urine,Catheterized Yeast species Assessment and Plan Assessment: Acute hypokalemia and hypomagnesemia, improving Atrial tachycardia Diabetes mellitus Hypertension Hyperlipidemia Artery disease status post stent placement History of urinary retention status post indwelling Mack catheter Recent C. diff infection stage II left buttock ulcer and stage III left heel ulcer Plan: Replacement of magnesium and potassium per protocol. Follow-up urine culture Follow-up recommendation by ID team, continue with daptomycin director [employer] on the case and recommended Cardizem no further workup for now Labs and medication were reviewed.. Continue same treatment. Continue with symptomatic treatment. Resume home medication. Monitor lytes and vitals. DVT and GI prophylaxis. Further recommendations depends on the clinical course of the patient DVT prophylaxis: Subcutaneous heparin GI Prophylaxis: Pepcid
[2020-12-06] MEDS: INSULIN ASPART (NovoLOG) 100 UNIT/ML VIAL SQ SCH ×2 (12:04→13:11)
[2020-12-06 12:40] LABS: Glucose,Whole Blood 129 mg/dL (75-99)
--- NOTE | 2020-12-06 16:10 | P.PN ---
Progress Note - Text Progress Note Date: 12/06/20 REASON FOR FOLLOWUP: Left posterior ankle osteomyelitis. INTERVAL HISTORY: The patient remains to be afebrile. The patient is breathing comfortably. The patient denies having any chest pain, shortness of breath, cough, no abdominal pain, no diarrhea. Denies any urinary symptoms. PHYSICAL EXAMINATION: Blood pressure 150/80 with a pulse of 81, temperature 98.9. She is 95% on room air. General description is an elderly female lying in bed in no distress. Respiratory system: Unlabored breathing, clear to auscultation anteriorly. Heart S1, S2. Regular rate and rhythm. Abdomen soft, no tenderness. Left heel is currently covered. No drainage on the dressing. LABS: Reviewed DIAGNOSTIC IMPRESSION AND PLAN: 1. Patient with left heel nonhealing wound with secondary cellulitis and osteomyelitis. Previous culture positive for Enterococcus faecalis for which the patient is currently covered with daptomycin which the patient will continue to finish a 6 week course of therapy. Local wound care with Santyl. Follow-up in the office in 1 week postdischarge 2. Positive urine with yeast. No urinary symptoms. Possible colonization. No need for any fungal on discharge
== END 2020-12-06 14:35 | disposition home health service (06) | DRG 640 ==
LOC: EC 13:18 → 6NMEDSUR 15:45 → OBSVTOIN 12-04 13:20
PROVIDERS: ADMIT Internal Medicine; ATTEND Internal Medicine
DX: E87.6 Hypokalemia (principal); L89.623 Pressure ulcer of left heel, stage 3; G93.41 Metabolic encephalopathy; I47.1 Supraventricular tachycardia; L03.116 Cellulitis of left lower limb; M86.9 Osteomyelitis, unspecified; E11.69 Type 2 diabetes mellitus with other specified complication; B95.2 Enterococcus as the cause of diseases classified elsewhere; E11.621 Type 2 diabetes mellitus with foot ulcer; E78.5 Hyperlipidemia, unspecified; E83.42 Hypomagnesemia; F03.90 Unspecified dementia, unspecified severity, without behavioral disturbance, psychotic disturbance, mood disturbance, and anxiety; I25.10 Atherosclerotic heart disease of native coronary artery without angina pectoris; I48.91 Unspecified atrial fibrillation; I49.1 Atrial premature depolarization; Z20.822 Contact with and (suspected) exposure to COVID-19; I50.9 Heart failure, unspecified; I11.0 Hypertensive heart disease with heart failure; I49.3 Ventricular premature depolarization; L89.322 Pressure ulcer of left buttock, stage 2; Z79.84 Long term (current) use of oral hypoglycemic drugs; Z79.899 Other long term (current) drug therapy; Z87.440 Personal history of urinary (tract) infections; Z95.5 Presence of coronary angioplasty implant and graft
CPT/HCPCS: 36415; 71046; 80048; 81001; 83735; 84132; 84484; 85025; 85730; 87086; 87324; 87635; 93005; 99285

== ENCOUNTER 2020-12-25 13:02 | Emergency (ER) | payer MEDICARE ==
[2020-12-25 13:21] VITALS: TEMP 99.1
[2020-12-25] MEDS ORDERED: PANTOPRAZOLE 40 MG/10 ML VIAL IVP STA (13:47)
--- NOTE | 2020-12-25 13:50 | ED ---
General Adult HPI - General Chief complaint: Recheck/Abnormal Lab/Rx Stated complaint: low hemoglobin & racing heart Time Seen by Provider: 12/25/20 13:23 Source: patient, family, RN notes reviewed Mode of arrival: wheelchair Limitations: no limitations - History of Present Illness Initial comments: Patient is a pleasant 75-year-old female presenting to the emergency department with family with concern for hemoglobin. Patient does have history of previous stomach ulcer. Hemoglobin was checked recently at 7.8. Previous hemoglobin was 8.1. No nausea or vomiting. Patient has had some dark stools. Patient denies any weakness. Patient does have recent foot fracture and surgery with resultant foot ulcer. This ulcer has been healing. Patient is a poor historian and majority of history comes from family. - Related Data Home Medications Medication Instructions Recorded Confirmed Donepezil [Aricept] 5 mg PO HS 09/14/20 12/25/20 Latanoprost/Pf [Latanoprost 0.005% 1 drop BOTH EYES HS 09/14/20 12/25/20 Eye Drop] Cholecalciferol (Vitamin D3) 125 mcg PO DAILY 12/25/20 12/25/20 [Vitamin D3 (125 MCG = 5,000 IU)] Daptomycin 400 mg IV HS@199912/25/20 12/25/20 Glimepiride [Amaryl] 4 mg PO DAILY 12/25/20 12/25/20 Iron Polysaccharide Complex 150 mg PO DAILY 12/25/20 12/25/20 [Ferrex 150] Metoprolol Succinate (ER) [Toprol 100 mg PO DAILY 12/25/20 12/25/20 XL] OLANZapine [ZyPREXA] 2.5 mg PO HS 12/25/20 12/25/20 Pantoprazole Sodium [Protonix] 40 mg PO DAILY 12/25/20 12/25/20 Simvastatin [Zocor] 20 mg PO HS 12/25/20 12/25/20 Sucralfate [Carafate] 1 gm PO DAILY 12/25/20 12/25/20 amLODIPine [Norvasc] 5 mg PO DAILY 12/25/20 12/25/20 Previous Rx's Medication Instructions Recorded Sodium Bicarbonate Tab 650 mg PO TID #90 tab 11/20/20 Allergies Allergy/AdvReac Type Severity Reaction Status Date / Time No Known Allergies Allergy Verified 12/25/20 13:21 Review of Systems ROS Statement: Those systems with pertinent positive or pertinent negative responses have been documented in the HPI. ROS Other: All systems not noted in ROS Statement are negative. Constitutional: Denies: fever Eyes: Denies: eye pain ENT: Denies: ear pain Respiratory: Denies: cough Cardiovascular: Denies: chest pain Endocrine: Denies: fatigue Gastrointestinal: Reports: melena. Denies: abdominal pain Genitourinary: Denies: dysuria Musculoskeletal: Denies: back pain Skin: Denies: rash Neurological: Denies: weakness Past Medical History Past Medical History: Coronary Artery Disease (CAD), Diabetes Mellitus, Hyperlipidemia, Hypertension History of Any Multi-Drug Resistant Organisms: None Reported Past Surgical History: Cholecystectomy, Heart Catheterization With Stent, Orthopedic Surgery Additional Past Surgical History / Comment(s): hip surgery, cataract sx, left ankle surgery 2020 Past Anesthesia/Blood Transfusion Reactions: No Reported Reaction Date of Last Stent Placement:: 2000 Past Psychological History: No Psychological Hx Reported Smoking Status: Never smoker Past Alcohol Use History: None Reported Past Drug Use History: None Reported General Exam Limitations: no limitations General appearance: alert, in no apparent distress Head exam: Present: normocephalic Eye exam: Present: normal appearance ENT exam: Present: normal oropharynx Neck exam: Present: normal inspection Respiratory exam: Present: normal lung sounds bilaterally Cardiovascular Exam: Present: regular rate, normal rhythm GI/Abdominal exam: Present: soft. Absent: tenderness Rectal exam: Present: black stool Extremities exam: Present: normal inspection Neurological exam: Present: alert Psychiatric exam: Present: normal affect, normal mood Skin exam: Present: normal color Course Vital Signs 12/25/20 12/25/20 13:16 14:14 Temperature 99.1 F Pulse Rate 134 H 105 H Respiratory 19 18 Rate Blood Pressure 125/67 154/77 O2 Sat by Pulse 98 98 Oximetry EKG Findings - EKG Comments: EKG Findings:: Sinus rhythm with rate of 96. Short CA 110. QRS 94. QT 358. QTC 452. Normal axis. Obed QRS. Nonspecific ST-T. PVCs present. Medical Decision Making - Medical Decision Making Patient reevaluated and resting comfortably in bed. Hemoglobin stable. Hemoccult negative. Patient and family updated on results and need for follow- up. Patient will have repeat blood work done on Tuesday through (home care. - Lab Data Result diagrams: 12/25/20 13:56 12/25/20 13:56 Lab Results 12/25/20 12/25/20 12/25/20 Range/Units 13:56 13:56 13:56 WBC 7.4 (3.8-10.6) k/uL RBC 3.07 L (3.80-5.40) m/uL Hgb 8.1 L (11.4-16.0) gm/dL Hct 26.6 L (34.0-46.0) % MCV 86.5 (80.0-100.0) fL MCH 26.3 (25.0-35.0) pg MCHC 30.4 L (31.0-37.0) g/dL RDW 14.5 (11.5-15.5) % Plt Count 379 (150-450) k/uL MPV 7.1 Neutrophils % 74 % Lymphocytes % 17 % Monocytes % 5 % Eosinophils % 3 % Basophils % 1 % Neutrophils # 5.5 (1.3-7.7) k/uL Lymphocytes # 1.2 (1.0-4.8) k/uL Monocytes # 0.4 (0-1.0) k/uL Eosinophils # 0.2 (0-0.7) k/uL Basophils # 0.1 (0-0.2) k/uL Hypochromasia Slight PT 10.8 (9.0-12.0) sec INR 1.0 (<1.2) APTT 48.2 H (22.0-30.0) sec Sodium (137-145) mmol/L Potassium (3.5-5.1) mmol/L Chloride (98-107) mmol/L Carbon Dioxide (22-30) mmol/L Anion Gap mmol/L BUN (7-17) mg/dL Creatinine (0.52-1.04) mg/dL Est GFR (CKD-EPI)AfAm (>60 ml/min/1.73 sqM) Est GFR (CKD-EPI)NonAf (>60 ml/min/1.73 sqM) Glucose (74-99) mg/dL Calcium (8.4-10.2) mg/dL Total Bilirubin (0.2-1.3) mg/dL AST (14-36) U/L ALT (4-34) U/L Alkaline Phosphatase (38-126) U/L Total Protein (6.3-8.2) g/dL Albumin (3.5-5.0) g/dL Stool Occult Blood Negative (Negative) 12/25/20 Range/Units 13:56 WBC (3.8-10.6) k/uL RBC (3.80-5.40) m/uL Hgb (11.4-16.0) gm/dL Hct (34.0-46.0) % MCV (80.0-100.0) fL MCH (25.0-35.0) pg MCHC (31.0-37.0) g/dL RDW (11.5-15.5) % Plt Count (150-450) k/uL MPV Neutrophils % % Lymphocytes % % Monocytes % % Eosinophils % % Basophils % % Neutrophils # (1.3-7.7) k/uL Lymphocytes # (1.0-4.8) k/uL Monocytes # (0-1.0) k/uL Eosinophils # (0-0.7) k/uL Basophils # (0-0.2) k/uL Hypochromasia PT (9.0-12.0) sec INR (<1.2) APTT (22.0-30.0) sec Sodium 137 (137-145) mmol/L Potassium 3.3 L (3.5-5.1) mmol/L Chloride 101 (98-107) mmol/L Carbon Dioxide 30 (22-30) mmol/L Anion Gap 6 mmol/L BUN 16 (7-17) mg/dL Creatinine 1.18 H (0.52-1.04) mg/dL Est GFR (CKD-EPI)AfAm 53 (>60 ml/min/1.73 sqM) Est GFR (CKD-EPI)NonAf 46 (>60 ml/min/1.73 sqM) Glucose 196 H (74-99) mg/dL Calcium 9.6 (8.4-10.2) mg/dL Total Bilirubin 0.3 (0.2-1.3) mg/dL AST 18 (14-36) U/L ALT 9 (4-34) U/L Alkaline Phosphatase 65 (38-126) U/L Total Protein 6.6 (6.3-8.2) g/dL Albumin 3.1 L (3.5-5.0) g/dL Stool Occult Blood (Negative) Disposition Clinical Impression: Anemia Disposition: HOME SELF-CARE Condition: Stable Instructions (If sedation given, give patient instructions): Anemia (ED) Additional Instructions: Repeat blood work on Tuesday as planned. Return for bleeding, pain, weakness, uncontrolled heart rate, worsening or changing symptoms or other concerns. Is patient prescribed a controlled substance at d/c from ED?: No Referrals: Anand Flaherty MD [Primary Care Provider] - 1-2 days Time of Disposition: 14:56
[2020-12-25 14:15] LABS: Basophils # (A) 0.1 k/uL (0-0.2); Basophils % (A) 1 %; Eosinophils # (A) 0.2 k/uL (0-0.7); Eosinophils % (A) 3 %; HCT 26.6 % (34.0-46.0); HGB 8.1 gm/dL (11.4-16.0); Hypochromasia Slight; Lymphocytes # (A) 1.2 k/uL (1.0-4.8); Lymphocytes % (A) 17 %; MCH 26.3 pg (25.0-35.0); MCHC 30.4 g/dL (31.0-37.0); MCV 86.5 fL (80.0-100.0); Mean Platelet Volume 7.1; Monocytes # (A) 0.4 k/uL (0-1.0); Monocytes % (A) 5 %; Neutrophils # (A) 5.5 k/uL (1.3-7.7); Neutrophils % (A) 74 %; Platelet Count 379 k/uL (150-450); RBC 3.07 m/uL (3.80-5.40); RDW 14.5 % (11.5-15.5); WBC 7.4 k/uL (3.8-10.6)
[2020-12-25 14:16] VITALS: BP 154/77; PULSE 105; RESP 18
[2020-12-25 14:31] LABS: Partial Thromboplastin Time 48.2 sec (22.0-30.0); Prothrombin Time 10.8 sec (9.0-12.0)
[2020-12-25 14:53] LABS: Albumin 3.1 g/dL (3.5-5.0); Calcium 9.6 mg/dL (8.4-10.2); Potassium 3.3 mmol/L (3.5-5.1); Total Bilirubin 0.3 mg/dL (0.2-1.3); Total Protein 6.6 g/dL (6.3-8.2)
== END 2020-12-25 15:10 | disposition home or self-care (01) ==
LOC: EC 13:02
DX: D64.9 Anemia, unspecified (principal); I10 Essential (primary) hypertension; E78.5 Hyperlipidemia, unspecified; I25.10 Atherosclerotic heart disease of native coronary artery without angina pectoris; E11.36 Type 2 diabetes mellitus with diabetic cataract; Z90.49 Acquired absence of other specified parts of digestive tract; Z87.11 Personal history of peptic ulcer disease; Z79.899 Other long term (current) drug therapy
CPT/HCPCS: 99284; 96374; 36415; 93005; 80053; 85025; 85610; 85730; 82272; C9113

== ENCOUNTER 2020-12-29 19:48 | Inpatient (IN) | payer MEDICARE ==
[2020-12-29] MEDS ORDERED: MORPHINE SULFATE 4 MG/ML SYRINGE IV STA (20:17)
[2020-12-29] MEDS ORDERED: SODIUM CHLORIDE 0.9% 1,000 ML IV STA (20:17)
[2020-12-29 20:35] LABS: Basophils % (A) 1 %; Eosinophils # (A) 0.2 k/uL (0-0.7); Eosinophils % (A) 3 %; HCT 28.3 % (34.0-46.0); HGB 8.9 gm/dL (11.4-16.0); Lymphocytes # (A) 0.9 k/uL (1.0-4.8); Lymphocytes % (A) 14 %; MCH 26.3 pg (25.0-35.0); MCHC 31.5 g/dL (31.0-37.0); MCV 83.6 fL (80.0-100.0); Mean Platelet Volume 6.7; Monocytes # (A) 0.3 k/uL (0-1.0); Monocytes % (A) 4 %; Neutrophils # (A) 4.8 k/uL (1.3-7.7); Neutrophils % (A) 77 %; Platelet Count 476 k/uL (150-450); RBC 3.39 m/uL (3.80-5.40); RDW 14.7 % (11.5-15.5); WBC 6.2 k/uL (3.8-10.6)
--- NOTE | 2020-12-29 21:00 | XR ---
EXAMINATION TYPE: XR KUB DATE OF EXAM: 12/29/2020 COMPARISON: NONE HISTORY: Abdominal pain TECHNIQUE: 2 views FINDINGS: Bowel gas pattern is normal. There is no sign of intestinal obstruction or pneumoperitoneum . Fecal pattern is normal. There is left hip prosthesis. IMPRESSION: Nonacute abdomen.
[2020-12-29 21:04] LABS: Calcium 9.8 mg/dL (8.4-10.2); Potassium 3.2 mmol/L (3.5-5.1); Total Bilirubin 0.2 mg/dL (0.2-1.3); Total Protein 6.5 g/dL (6.3-8.2)
[2020-12-29] MEDS ORDERED: DEXTROSE 50% SYRINGE 50 ML IVP STA (21:15)
[2020-12-29 21:31] LABS: Glucose,Whole Blood 38 mg/dL (75-99)
[2020-12-29 21:49] LABS: Glucose,Whole Blood 142 mg/dL (75-99)
[2020-12-29 22:17] LABS: Glucose,Whole Blood 122 mg/dL (75-99)
[2020-12-29] MEDS ORDERED: VANCOMYCIN IV PER PHARMACY 1 EACH MISC MISCELLANE PRN (23:08)
[2020-12-29] MEDS ORDERED: NALOXONE 0.4 MG/ML 1 ML VIAL IV PRN (23:12)
[2020-12-29 23:16] LABS: Appearance,Urine Clear (Clear); Bacteria,Urine Rare /hpf; Bilirubin,Urine Negative (Negative); Blood,Urine Negative (Negative); Color,Urine Yellow; Glucose,Urine (UA) Negative (Negative); Hyaline Casts,Urine 1 /lpf (0-2); Ketones,Urine Negative (Negative); Leukocyte Esterase,Urine Large (Negative); Mucus,Urine Rare /hpf; Nitrite,Urine Negative (Negative); PH, Urine 7.5 (5.0-8.0); Protein,Urine 1+ (Negative); RBC,Urine 3 /hpf (0-5); Specific Gravity,Urine 1.013 (1.001-1.035); Squamous Epithelial Cell,Urine 1 /hpf (0-4); Urobilinogen,Urine <2.0 mg/dL (<2.0); WBC,Urine 167 /hpf (0-5)
--- NOTE | 2020-12-29 23:20 | ED ---
Recheck HPI - General Chief Complaint: Recheck/Abnormal Lab/Rx Stated Complaint: Diabetic Issues Time Seen by Provider: 12/29/20 20:17 Source: patient, EMS, RN notes reviewed Mode of arrival: EMS Limitations: language barrier - History of Present Illness Initial Comments: Patient is a 75-year-old female that presents to emergency department due to blood glucose inconsistencies and difficulty maintaining them. Patient only speaks Togolese we'll wait for daughter to arrive for evaluation history. He notes that sugars have been up and down frequently in a hard to maintain. Patient is on 4 mg of glipizide. Patient's daughter notes that she was recently seen at [facility] and had obtained blood cultures and was called and stated that there was a positive result. Patient was otherwise well-appearing in no apparent distress or pain. She did have a PICC line. Daughter noted the patient had no other issues or complaints. - Related Data Home Medications Medication Instructions Recorded Confirmed Donepezil [Aricept] 5 mg PO HS 09/14/20 12/25/20 Latanoprost/Pf [Latanoprost 0.005% 1 drop BOTH EYES HS 09/14/20 12/25/20 Eye Drop] Cholecalciferol (Vitamin D3) 125 mcg PO DAILY 12/25/20 12/25/20 [Vitamin D3 (125 MCG = 5,000 IU)] Daptomycin 400 mg IV HS@199912/25/20 12/25/20 Glimepiride [Amaryl] 4 mg PO DAILY 12/25/20 12/25/20 Iron Polysaccharide Complex 150 mg PO DAILY 12/25/20 12/25/20 [Ferrex 150] Metoprolol Succinate (ER) [Toprol 100 mg PO DAILY 12/25/20 12/25/20 XL] OLANZapine [ZyPREXA] 2.5 mg PO HS 12/25/20 12/25/20 Pantoprazole Sodium [Protonix] 40 mg PO DAILY 12/25/20 12/25/20 Simvastatin [Zocor] 20 mg PO HS 12/25/20 12/25/20 Sucralfate [Carafate] 1 gm PO DAILY 12/25/20 12/25/20 amLODIPine [Norvasc] 5 mg PO DAILY 12/25/20 12/25/20 Previous Rx's Medication Instructions Recorded Sodium Bicarbonate Tab 650 mg PO TID #90 tab 11/20/20 Allergies Allergy/AdvReac Type Severity Reaction Status Date / Time No Known Allergies Allergy Verified 12/29/20 20:03 Review of Systems ROS Statement: Those systems with pertinent positive or pertinent negative responses have been documented in the HPI. ROS Other: All systems not noted in ROS Statement are negative. Past Medical History Past Medical History: Coronary Artery Disease (CAD), Diabetes Mellitus, Hyperlipidemia, Hypertension History of Any Multi-Drug Resistant Organisms: None Reported Past Surgical History: Cholecystectomy, Heart Catheterization With Stent, Orthop edic Surgery Additional Past Surgical History / Comment(s): hip surgery, cataract sx, left ankle surgery 2020 Past Anesthesia/Blood Transfusion Reactions: No Reported Reaction Date of Last Stent Placement:: 2000 Past Psychological History: No Psychological Hx Reported Smoking Status: Never smoker Past Alcohol Use History: None Reported Past Drug Use History: None Reported General Exam Limitations: language barrier General appearance: alert, in no apparent distress Head exam: Present: atraumatic, normocephalic, normal inspection Eye exam: Present: normal appearance, PERRL, EOMI. Absent: scleral icterus, conjunctival injection, periorbital swelling ENT exam: Present: normal exam, mucous membranes moist Neck exam: Present: normal inspection Respiratory exam: Present: normal lung sounds bilaterally. Absent: respiratory distress, wheezes, rales, rhonchi, stridor Cardiovascular Exam: Present: regular rate, normal rhythm, normal heart sounds. Absent: systolic murmur, diastolic murmur, rubs, gallop, clicks GI/Abdominal exam: Present: soft, normal bowel sounds. Absent: distended, tenderness, guarding, rebound, rigid Extremities exam: Present: normal inspection, full ROM, normal capillary refill. Absent: tenderness, pedal edema, joint swelling, calf tenderness Neurological exam: Present: alert, oriented X3 Psychiatric exam: Present: normal affect, normal mood Skin exam: Present: warm, dry, intact, normal color. Absent: rash Course Vital Signs 12/29/20 20:00 Temperature 97.9 F Pulse Rate 118 H Respiratory 18 Rate Blood Pressure 135/91 O2 Sat by Pulse 98 Oximetry Medical Decision Making - Medical Decision Making 75-year-old female with low blood sugar and positive blood cultures which are [facility]. Patient's daughter did report that they left AMA from the [facility] on 12/24/2020. Labs: CBC unremarkable, CMP shows blood sugar of 43, patient was given 1 amp of D50 and several snacks and drinks. Reports like [facility] were obtained, blood cultures show gram-positive cocci. Sensitive to vancomycin tetracycline or Bactrim. Given patient's inconsistent blood sugars and positive blood cultures like [facility] patient will be admitted to hospital. Case discussed with Dr. Haynes. Dr. Gibson is consulted and will accept the admit. - Lab Data Result diagrams: 12/29/20 20:27 12/29/20 20:27 Lab Results 12/29/20 12/29/20 12/29/20 Range/Units 20:27 20:27 21:21 WBC 6.2 (3.8-10.6) k/uL RBC 3.39 L (3.80-5.40) m/uL Hgb 8.9 L (11.4-16.0) gm/dL Hct 28.3 L (34.0-46.0) % MCV 83.6 (80.0-100.0) fL MCH 26.3 (25.0-35.0) pg MCHC 31.5 (31.0-37.0) g/dL RDW 14.7 (11.5-15.5) % Plt Count 476 H (150-450) k/uL MPV 6.7 Neutrophils % 77 % Lymphocytes % 14 % Monocytes % 4 % Eosinophils % 3 % Basophils % 1 % Neutrophils # 4.8 (1.3-7.7) k/uL Lymphocytes # 0.9 L (1.0-4.8) k/uL Monocytes # 0.3 (0-1.0) k/uL Eosinophils # 0.2 (0-0.7) k/uL Basophils # 0.0 (0-0.2) k/uL Sodium 137 (137-145) mmol/L Potassium 3.2 L (3.5-5.1) mmol/L Chloride 99 (98-107) mmol/L Carbon Dioxide 29 (22-30) mmol/L Anion Gap 9 mmol/L BUN 15 (7-17) mg/dL Creatinine 1.35 H (0.52-1.04) mg/dL Est GFR (CKD-EPI)AfAm 45 (>60 ml/min/1.73 sqM) Est GFR (CKD-EPI)NonAf 39 (>60 ml/min/1.73 sqM) Glucose 35 L* (74-99) mg/dL POC Glucose (mg/dL) 38 L (75-99) mg/dL POC Glu [employer] Helper Erin Chopra Calcium 9.8 (8.4-10.2) mg/dL Total Bilirubin 0.2 (0.2-1.3) mg/dL AST 26 (14-36) U/L ALT 11 (4-34) U/L Alkaline Phosphatase 65 (38-126) U/L Total Protein 6.5 (6.3-8.2) g/dL Albumin 3.0 L (3.5-5.0) g/dL Amylase 94 (30-110) U/L Lipase 201 (23-300) U/L Coronavirus (PCR) (Not Detectd) 12/29/20 12/29/20 12/29/20 Range/Units 21:28 21:47 22:16 WBC (3.8-10.6) k/uL RBC (3.80-5.40) m/uL Hgb (11.4-16.0) gm/dL Hct (34.0-46.0) % MCV (80.0-100.0) fL MCH (25.0-35.0) pg MCHC (31.0-37.0) g/dL RDW (11.5-15.5) % Plt Count (150-450) k/uL MPV Neutrophils % % Lymphocytes % % Monocytes % % Eosinophils % % Basophils % % Neutrophils # (1.3-7.7) k/uL Lymphocytes # (1.0-4.8) k/uL Monocytes # (0-1.0) k/uL Eosinophils # (0-0.7) k/uL Basophils # (0-0.2) k/uL Sodium (137-145) mmol/L Potassium (3.5-5.1) mmol/L Chloride (98-107) mmol/L Carbon Dioxide (22-30) mmol/L Anion Gap mmol/L BUN (7-17) mg/dL Creatinine (0.52-1.04) mg/dL Est GFR (CKD-EPI)AfAm (>60 ml/min/1.73 sqM) Est GFR (CKD-EPI)NonAf (>60 ml/min/1.73 sqM) Glucose (74-99) mg/dL POC Glucose (mg/dL) 142 H 122 H (75-99) mg/dL POC Glu Steam Fitter Helper ID Fetterly, Erin Fetterly, Erin Calcium (8.4-10.2) mg/dL Total Bilirubin (0.2-1.3) mg/dL AST (14-36) U/L ALT (4-34) U/L Alkaline Phosphatase (38-126) U/L Total Protein (6.3-8.2) g/dL Albumin (3.5-5.0) g/dL Amylase (30-110) U/L Lipase (23-300) U/L Coronavirus (PCR) Not Detected (Not Detectd) - EKG Data -: EKG Interpreted by Me EKG shows normal: sinus rhythm Rate: tachycardia EKG Comments: Ventricular rate in the 119 bpm, ND interval 124 ms, QRS duration 98 ms, QTC 509 ms, PRT axes 45/-6/196. Sinus tachycardia with premature atrial complexes, inferior infarct age undetermined, possible anterior infarct age undetermined, ST and T wave abnormality consider lateral ischemia, abnormal ECG. - Radiology Data Radiology results: report reviewed, image reviewed KUB: Nonacute abdomen. Disposition Clinical Impression: Bacteremia, Hypoglycemia Disposition: ADMITTED IP TO THIS HOSP Condition: Stable Is patient prescribed a controlled substance at d/c from ED?: No Referrals: Anand Flaherty MD [Primary Care Provider] - 1-2 days Time of Disposition: 23:20
[2020-12-29] MEDS: SODIUM CHLORIDE 0.9% 1,000 ML IV SCH (23:56)
[2020-12-30] MEDS ORDERED: VANCOMYCIN 1,250 MG in SODIUM CHLORIDE 0.9% 250 ML IVPB ONE ×2
--- NOTE | 2020-12-30 06:16 | P.HPIM ---
History of Present Illness H&P Date: 12/30/20 Chief Complaint: low blood sugar 75 year old female with CAD s/p stents, DM , hypertension , dementia patient only speaks setswana , family not available at this time. history is limited, obtained by reviewing medical record patient comes in due to low blood sugar readings, she is currently awake and alert. she is on oral hypoglycemic agents per family , she recently had a positive blood culture for GPC adame sensitive. however, sheis on dapto for osteomyelitis of her left heel through a PICC line. she was treated for left heel osteomyelitis back on Nov 20. since then she seem s to have been on antibiotics, she was at our facility again on Dec 06 for electrolyte imbalance. she was also treated for C diff. during those hospital admission s no other history is available at this time blood work showed CADE and low blood sugar . Review of Systems unable to obtain due to language barrier Past Medical History Past Medical History: Coronary Artery Disease (CAD), Diabetes Mellitus, Hyperlipidemia, Hypertension History of Any Multi-Drug Resistant Organisms: None Reported Past Surgical History: Cholecystectomy, Heart Catheterization With Stent, Orthopedic Surgery Additional Past Surgical History / Comment(s): hip surgery, cataract sx, left ankle surgery 2020 Past Anesthesia/Blood Transfusion Reactions: No Reported Reaction Date of Last Stent Placement:: 2000 Past Psychological History: No Psychological Hx Reported Smoking Status: Never smoker Past Alcohol Use History: None Reported Past Drug Use History: None Reported Medications and Allergies Home Medications Medication Instructions Recorded Confirmed Type Donepezil [Aricept] 5 mg PO HS 09/14/20 12/29/20 History Latanoprost/Pf [Latanoprost 0.005% 1 drop BOTH EYES HS 09/14/20 12/29/20 History Eye Drop] Sodium Bicarbonate Tab 650 mg PO TID #90 tab 11/20/20 12/29/20 Rx Cholecalciferol (Vitamin D3) 125 mcg PO DAILY 12/25/20 12/29/20 History [Vitamin D3 (125 MCG = 5,000 IU)] Daptomycin 400 mg IV HS@199912/25/20 12/29/20 History Glimepiride [Amaryl] 4 mg PO DAILY 12/25/20 12/29/20 History Iron Polysaccharide Complex 150 mg PO DAILY 12/25/20 12/29/20 History [Ferrex 150] Metoprolol Succinate (ER) [Toprol 100 mg PO DAILY 12/25/20 12/29/20 History XL] OLANZapine [ZyPREXA] 2.5 mg PO HS 12/25/20 12/29/20 History Pantoprazole Sodium [Protonix] 40 mg PO DAILY 12/25/20 12/29/20 History Simvastatin [Zocor] 20 mg PO HS 12/25/20 12/29/20 History Sucralfate [Carafate] 1 gm PO DAILY 12/25/20 12/29/20 History amLODIPine [Norvasc] 5 mg PO DAILY 12/25/20 12/29/20 History Allergies Allergy/AdvReac Type Severity Reaction Status Date / Time No Known Allergies Allergy Verified 12/29/20 23:24 Physical Exam Vitals: Vital Signs Temp Pulse Pulse Resp BP BP Pulse Ox 12/30/20 02:00 97.6 F 122 H 18 162/86 98 12/29/20 23:55 98.2 F 86 20 148/91 99 12/29/20 20:00 97.9 F 118 H 18 135/91 98 Intake and Output 12/29/20 12/29/20 12/30/20 14:59 22:59 06:59 Other: Weight 58.967 kg Constitutional: No acute distress, pleasant, language barrier limits communication, follows commands Eyes: Anicteric sclerae, moist conjunctiva, Pupils equal round reactive to light ENMT: NC/AT Oropharynx clear, no erythema, or exudates Neck: Supple, FROM, no masses, or JVD No carotid bruits No thyromegaly Lungs: Clear to auscultation Clear to percussion Normal respiratory effort, no accessory muscle use Cardiovascular: Heart regular in rate and rhythm, No murmurs, gallops, or rubs No peripheral edema Abdominal: Soft Nontender, no guarding, rebound or rigidity Abdomen moving with respiration Normoactive bowel sounds No hepatomegaly, No splenomegaly No palpable mass No abdominal wall hernia noted Skin: Normal temperature, tone, texture, turgor Extremities: No digital cyanosis No clubbing Pedal pulses intact and symmetrical Radial pulses intact and symmetrical No calf tenderness Psychiatric: Alert and oriented to person, place Neuro Muscles Strength 4/5 in all 4 extremities Sensation to light touch grossly present throughout Cranial nerves II-XII grossly intact Lymphatics: no palpable cervical or supraclavicular , or inguinal lymph nodes Results CBC & Chem 7: 12/29/20 20:27 12/29/20 20:27 Labs: Abnormal Lab Results - Last 24 Hours (Table) 12/29/20 12/29/20 12/29/20 Range/Units 20:27 20:27 20:27 RBC 3.39 L (3.80-5.40) m/uL Hgb 8.9 L (11.4-16.0) gm/dL Hct 28.3 L (34.0-46.0) % Plt Count 476 H (150-450) k/uL Lymphocytes # 0.9 L (1.0-4.8) k/uL Potassium 3.2 L (3.5-5.1) mmol/L Creatinine 1.35 H (0.52-1.04) mg/dL Glucose 35 L* (74-99) mg/dL POC Glucose (mg/dL) (75-99) mg/dL Albumin 3.0 L (3.5-5.0) g/dL Urine Protein 1+ H (Negative) Ur Leukocyte Esterase Large H (Negative) Urine WBC 167 H (0-5) /hpf Urine Bacteria Rare H (None) /hpf Urine Mucus Rare H (None) /hpf 12/29/20 12/29/20 12/29/20 Range/Units 21:21 21:47 22:16 RBC (3.80-5.40) m/uL Hgb (11.4-16.0) gm/dL Hct (34.0-46.0) % Plt Count (150-450) k/uL Lymphocytes # (1.0-4.8) k/uL Potassium (3.5-5.1) mmol/L Creatinine (0.52-1.04) mg/dL Glucose (74-99) mg/dL POC Glucose (mg/dL) 38 L 142 H 122 H (75-99) mg/dL Albumin (3.5-5.0) g/dL Urine Protein (Negative) Ur Leukocyte Esterase (Negative) Urine WBC (0-5) /hpf Urine Bacteria (None) /hpf Urine Mucus (None) /hpf Microbiology - Last 24 Hours (Table) 12/29/20 20:27 Urine Culture - Preliminary Urine,Voided Assessment and Plan Assessment: hypoglycemia , unknown if she overdosed on oral hypoglycemic agents or due to CADE , or decrease PO intake close monitoring of blood sugar insulin sliding scale hold oral hypoglycemic agents supportive care CADE IVF hydration hold nephrotoxic meds monitor renal function and urine output continue sodium bicarb PO Osteomyelitis of left heel conitinue with dapto report of positive blood culture for GPC adame sensitive, from [facility] repeat blood cultures monitor vital signs for any fever recent history of C. diff patient continues to have diarrhea check Cdiff chronic conditions hypertensio n, hyperlipidemia , CAD s/p stenst resume cardiac meds dementia , continue home meds full code anticipated length of stay < 2 midnights anticipated discharge home Heparin sc tid for DVT PPX
[2020-12-30 06:34] LABS: Glucose,Whole Blood 41 mg/dL (75-99)
[2020-12-30] MEDS ORDERED: DEXTROSE 50% SYRINGE 50 ML IVP STA (06:42)
[2020-12-30 06:53] LABS: Glucose,Whole Blood 136 mg/dL (75-99)
[2020-12-30 08:23] LABS: Glucose,Whole Blood 82 mg/dL (75-99)
[2020-12-30] MEDS: PANTOPRAZOLE 40 MG TABLET PO SCH (08:53)
[2020-12-30] MEDS: amLODIPine 5 MG TAB PO SCH (08:53)
[2020-12-30] MEDS: METOPROLOL SUCCINATE (ER) 100 MG TAB.ER.24H PO SCH (08:54)
[2020-12-30] MEDS: SUCRALFATE 1 GM TAB PO SCH (08:54)
[2020-12-30] MEDS: HEPARIN SODIUM,PORCINE/PF 5,000 UNIT/0.5 ML SYRINGE SQ SCH ×3 (08:54→23:14)
[2020-12-30] MEDS: SODIUM BICARBONATE TAB 650 MG TAB PO SCH ×3 (08:54→20:06)
[2020-12-30 10:49] LABS: Glucose,Whole Blood 127 mg/dL (75-99)
[2020-12-30 12:22] LABS: Glucose,Whole Blood 98 mg/dL (75-99)
[2020-12-30 13:30] VITALS: BMI 25.4
[2020-12-30 14:34] LABS: Glucose,Whole Blood 164 mg/dL (75-99)
[2020-12-30] MEDS: SODIUM CHLORIDE 0.9% 1,000 ML IV SCH (14:42)
[2020-12-30 16:42] LABS: Glucose,Whole Blood 158 mg/dL (75-99)
[2020-12-30] MEDS: COLLAGENASE 250 UNIT/GM OINTMENT 30 GM TUBE TOPICAL SCH (17:04)
[2020-12-30] MEDS ORDERED: DAPTOMYCIN 400 MG IV SCH (20:00)
[2020-12-30] MEDS: DEXTROSE 5%-0.9% NACL 1,000 ML IV SCH (20:07)
[2020-12-30] MEDS ORDERED: DONEPEZIL 5 MG TAB PO SCH (21:00)
[2020-12-30] MEDS ORDERED: OLANZapine 2.5 MG TAB PO SCH (21:00)
[2020-12-30] MEDS ORDERED: ATORVASTATIN 10 MG TAB PO SCH (21:00)
[2020-12-30 22:09] LABS: Glucose,Whole Blood 186 mg/dL (75-99)
--- NOTE | 2020-12-30 23:10 | P.CONS ---
History of Present Illness - Reason for Consult Consult date: 12/30/20 bacteremia Requesting physician: Alejandro Hernández - Chief Complaint fluctuating blood sugars x days - History of Present Illness History of present illness : Patient is 75-year-old female with recent multiple admission to the hospital in this patient who did have a left ankle fracture is status post operative repair subsequent did have a nonhealing wound to the posterior ankle area patient recently did have removal of the hardware with concern for underlying osteomyelitis local culture positive for Enterococcus faecalis patient family was not able to do Unasyn at home 3-4 times per day as the patient has been treated with daptomycin for the last few weeks patient has been sent to the ER last night for evaluation of low blood sugar inconsistency and difficulty maintaining them apparently the patient was recently seen at [facility] with there was blood culture drawn and the daughter was told that she did have a positive blood culture patient on presentation to this facility has been afebrile and no fever has been recorded subsequently patient did have a normal white count with mild lymphopenia creatinine was 1.35 liver enzymes are normal urine is mildly positive german PCR is negative blood cultures has been obtained from the PICC line and peripherally which are currently pending patient has been continued on daptomycin which she received do se of vancomycin in the ER infectious disease was consulted for further management most information has been obtained from review the chart as the patient symptoms are very good historian but not specifically denies having any chest pain shortness with or cough no abdominal pain no diarrhea or any w orsening pain to the left inguinal area Review of system: Positive point has been mentioned in HPI complete review could not be obtained because of underlying mental status Past medical history : Reviewed, documented below Past surgical history : Reviewed, documented below Social history: Reviewed, documented below Medications: Reviewed, as documented below EXAMINATION: Vital sigans= Reviewed and documented below GENERAL DESCRIPTION: Elderly female lying in bed, no distress. No tachypnea or accessory muscle of respiration use. HEENT: Shows Pallor , no scleral icterus. Oral mucous membrane is dry. NECK: Trachea central, no thyromegaly. LUNGS: Unlabored breathing. Clear to auscultation anteriorly. No wheeze or crackle. HEART: S1, S2, regular rate and rhythm. ABDOMEN: Soft, no tenderness , guarding or rigidity EXTREMITIES: Left heel wound has decreased in size minimal slough tissue surrounding redness is almost resolved no drainage. SKIN: No rash, no masses palpable. NEUROLOGICAL: The patient is awake, alert, oriented x2, mood and affect normal. LABS AND RADIOLOGY: Reviewed results see below Assessment : 1-patient presented to hospital with fluctuating blood sugar in this patient currently undergoing treatment for her left heel osteomyelitis culture positive for the cocci callus and the patient was treated with daptomycin as the family was unable to do Unasyn 3-4 times per day no with the question of positive blood culture at the [facility] source possi bility take as the patient left significantly decreased in size and no significant signs of cellulitis clinically Plan: 1-blood culture has been repeated peripherally and from the PICC line and those will be followed we will try to be in the culture from [facility] 2-daptomycin 6 mg/kg daily to continue 3-local wound care to the left leg wound with the Santyl followed by moist ailin ssing change daily and keep the area of the pressure We will follow on clinical condition and cultures to further adjust medication if needed Thank you for this consultation we will follow the patient along with you Past Medical History Past Medical History: Coronary Artery Disease (CAD), Diabetes Mellitus, Hyperlipidemia, Hypertension History of Any Multi-Drug Resistant Organisms: None Reported Past Surgical History: Cholecystectomy, Heart Catheterization With Stent, Orthopedic Surgery Additional Past Surgical History / Comment(s): hip surgery, cataract sx, left ankle surgery 2020 Past Anesthesia/Blood Transfusion Reactions: No Reported Reaction Date of Last Stent Placement:: 2000 Past Psychological History: No Psychological Hx Reported Smoking Status: Never smoker Past Alcohol Use History: None Reported Past Drug Use History: None Reported Medications and Allergies Home Medications Medication Instructions Recorded Confirmed Type Donepezil [Aricept] 5 mg PO HS 09/14/20 12/29/20 History Latanoprost/Pf [Latanoprost 0.005% 1 drop BOTH EYES HS 09/14/20 12/29/20 History Eye Drop] Sodium Bicarbonate Tab 650 mg PO TID #90 tab 11/20/20 12/29/20 Rx Cholecalciferol (Vitamin D3) 125 mcg PO DAILY 12/25/20 12/29/20 History [Vitamin D3 (125 MCG = 5,000 IU)] Daptomycin 400 mg IV HS@199912/25/20 12/29/20 History Glimepiride [Amaryl] 4 mg PO DAILY 12/25/20 12/29/20 History Iron Polysaccharide Complex 150 mg PO DAILY 12/25/20 12/29/20 History [Ferrex 150] Metoprolol Succinate (ER) [Toprol 100 mg PO DAILY 12/25/20 12/29/20 History XL] OLANZapine [ZyPREXA] 2.5 mg PO HS 12/25/20 12/29/20 History Pantoprazole Sodium [Protonix] 40 mg PO DAILY 12/25/20 12/29/20 History Simvastatin [Zocor] 20 mg PO HS 12/25/20 12/29/20 History Sucralfate [Carafate] 1 gm PO DAILY 12/25/20 12/29/20 History amLODIPine [Norvasc] 5 mg PO DAILY 12/25/20 12/29/20 History Allergies Allergy/AdvReac Type Severity Reaction Status Date / Time No Known Allergies Allergy Verified 12/29/20 23:24 Physical Exam Vitals: Vital Signs Temp Pulse Pulse Resp BP BP Pulse Ox 12/30/20 07:30 96.9 F L 114 H 18 128/71 99 12/30/20 02:00 97.6 F 122 H 18 162/86 98 12/29/20 23:55 98.2 F 86 20 148/91 99 12/29/20 20:00 97.9 F 118 H 18 135/91 98 Intake and Output 12/29/20 12/30/20 12/30/20 22:59 06:59 14:59 Other: # Voids 2 # Bowel Movements 3 Weight 58.967 kg Results CBC & Chem 7: 12/29/20 20:27 12/29/20 20:27 Labs: Abnormal Lab Results - Last 24 Hours (Table) 12/29/20 12/29/20 12/29/20 Range/Units 20:27 20:27 20:27 RBC 3.39 L (3.80-5.40) m/uL Hgb 8.9 L (11.4-16.0) gm/dL Hct 28.3 L (34.0-46.0) % Plt Count 476 H (150-450) k/uL Lymphocytes # 0.9 L (1.0-4.8) k/uL Potassium 3.2 L (3.5-5.1) mmol/L Creatinine 1.35 H (0.52-1.04) mg/dL Glucose 35 L* (74-99) mg/dL POC Glucose (mg/dL) (75-99) mg/dL Albumin 3.0 L (3.5-5.0) g/dL Urine Protein 1+ H (Negative) Ur Leukocyte Esterase Large H (Negative) Urine WBC 167 H (0-5) /hpf Urine Bacteria Rare H (None) /hpf Urine Mucus Rare H (None) /hpf 12/29/20 12/29/20 12/29/20 Range/Units 21:21 21:47 22:16 RBC (3.80-5.40) m/uL Hgb (11.4-16.0) gm/dL Hct (34.0-46.0) % Plt Count (150-450) k/uL Lymphocytes # (1.0-4.8) k/uL Potassium (3.5-5.1) mmol/L Creatinine (0.52-1.04) mg/dL Glucose (74-99) mg/dL POC Glucose (mg/dL) 38 L 142 H 122 H (75-99) mg/dL Albumin (3.5-5.0) g/dL Urine Protein (Negative) Ur Leukocyte Esterase (Negative) Urine WBC (0-5) /hpf Urine Bacteria (None) /hpf Urine Mucus (None) /hpf 12/30/20 12/30/20 Range/Units 06:32 06:51 RBC (3.80-5.40) m/uL Hgb (11.4-16.0) gm/dL Hct (34.0-46.0) % Plt Count (150-450) k/uL Lymphocytes # (1.0-4.8) k/uL Potassium (3.5-5.1) mmol/L Creatinine (0.52-1.04) mg/dL Glucose (74-99) mg/dL POC Glucose (mg/dL) 41 L 136 H (75-99) mg/dL Albumin (3.5-5.0) g/dL Urine Protein (Negative) Ur Leukocyte Esterase (Negative) Urine WBC (0-5) /hpf Urine Bacteria (None) /hpf Urine Mucus (None) /hpf Microbiology - Last 24 Hours (Table) 12/29/20 20:27 Urine Culture - Preliminary Urine,Voided
[2020-12-31 03:42] VITALS: TEMP 98.5
[2020-12-31] MEDS: DEXTROSE 5%-0.9% NACL 1,000 ML IV SCH (04:20)
[2020-12-31 04:29] LABS: Glucose,Whole Blood 227 mg/dL (75-99)
[2020-12-31 08:14] LABS: Calcium 9.5 mg/dL (8.4-10.2); Potassium 3.5 mmol/L (3.5-5.1)
[2020-12-31] MEDS: COLLAGENASE 250 UNIT/GM OINTMENT 30 GM TUBE TOPICAL SCH (08:35)
[2020-12-31] MEDS: amLODIPine 5 MG TAB PO SCH (08:36)
[2020-12-31] MEDS: SODIUM BICARBONATE TAB 650 MG TAB PO SCH (08:36)
[2020-12-31] MEDS: HEPARIN SODIUM,PORCINE/PF 5,000 UNIT/0.5 ML SYRINGE SQ SCH (08:36)
[2020-12-31] MEDS: METOPROLOL SUCCINATE (ER) 100 MG TAB.ER.24H PO SCH (08:37)
[2020-12-31] MEDS: SUCRALFATE 1 GM TAB PO SCH (08:37)
[2020-12-31] MEDS: PANTOPRAZOLE 40 MG TABLET PO SCH (08:37)
[2020-12-31 09:39] VITALS: BP 166/73; PULSE 88; RESP 16
[2020-12-31 09:49] LABS: Glucose,Whole Blood 257 mg/dL (75-99)
--- NOTE | 2020-12-31 09:52 | P.CONS ---
History of Present Illness - Reason for Consult Consult date: 12/31/20 wound care - History of Present Illness This is a 75-year-old female known to the wound care center being seen on for nonhealing ulceration to the left heel. Patient has history of diabetes. We've been utilizing Santyl to the ulceration site. The left posterior calcaneus ulcerations related to surgical intervention post fall. The ulceration was closed with sutures however once the sutures were removed ulceration open resulting in open ulceration. The wound is currently classified as a Partial Thickness wound with etiology of Open Surgical Wound and is located on the Left,Posterior Calcaneus. The wound measures 2.2cm length x 1.4cm width x 0.7cm depth; 2.419cm^2 area and 1.693cm^3 volume. There is no tunneling or undermining noted. There is a small amount of serous drainage noted. The wound m argin is distinct with the outline attached to the wound base. There is no granulation within the wound bed. There is a large (67-100%) amount of necrotic tissue within the wound bed including Eschar and Adherent Slough. The periwound skin appearance exhibited: Dry/Scaly, Erythema. The periwound skin appearance did not exhibit: Callus, Crepitus, Excoriation, Induration, Rash, Scarring, Maceration, Atrophie Jacque, Cyanosis, Ecchymosis, Hemosiderin Staining, Mottled, Pallor, Rubor. The surrounding wound skin color is noted with erythema which is circumferential. Periwound temperature was noted as No Abnormality. Original cause of wound was Pressure Injury. The wound is currently classified a s a Category/Stage II wound with etiology of Pressure Ulcer and is located on the Left,Lateral Gluteus. The wound measures 0cm length x 0cm width x 0cm depth; 0cm^2 area and 0cm^3 volume. There is Fat Layer (Subcutaneous Tissue) exposed. There is a none present amount of drainage noted. The wound margin is distinct with the outline attached to the wound base. There is no granulation within the wound bed. There is no necrotic tissue within the wound bed. The periwound skin appearance had no abnormalities noted for color. The periwound skin appearance exhibited: Scarring. The periwound skin appearance did not exhibit: Callus, Crepitus, Excoriation, Induration, Rash, Dry/Scaly, Maceration. Periwound temperature was noted as No Abnormality. General Notes: remains healed Review Of Systems: Constitutional: No fever, no chills, no night sweats. No weight change. No weakness, fatigue or lethargy. No daytime sleepiness. Integumentary:reports wounds, no lesions. No rash or pruritus. No unusual bruising. No change in hair or nails. Physical exam: General Appearance: Alert, cooperative, no distress, appears stated age. Skin: See HPI all other Skin color, texture, tugor normal, no rashes or lesions. Neurologic: Alert oriented x3 Assessment: 1. Pressure ulcer left heel stage III 2. Type 2 diabetes with foot ulcer 3. Pressure ulcer stage I sacrum Plan: 1. Left calcaneus: Apply Santyl, saline moist gauze, dry gauze, rolled gauze and secure with paper tape. Change daily. 2. Continue to utilize a heel protector. 3. Minimal weightbearing status to the left calcaneus 4. Apply zinc barrier cream daily to left buttocks, if the buttocks is open may apply honey gel to the site. 5. Next wound care appointment is 01/01/2021 @ 2:15 Thank you for the consultation any questions please contact the wound care center. DNP note has been reviewed and discussed with Dr. Kim and the impression and plan of care has been directed as dictated. Past Medical History Past Medical History: Coronary Artery Disease (CAD), Diabetes Mellitus, Hyperlipidemia, Hypertension Additional Past Medical History / Comment(s): mild, wound care center for left History of Any Multi-Drug Resistant Organisms: None Reported Past Surgical History: Cholecystectomy, Heart Catheterization With Stent, Orthopedic Surgery Additional Past Surgical History / Comment(s): hip surgery, cataract sx, left ankle surgery 2020 Past Anesthesia/Blood Transfusion Reactions: No Reported Reaction Date of Last Stent Placement:: 2000 Past Psychological History: No Psychological Hx Reported Smoking Status: Never smoker Past Alcohol Use History: None Reported Past Drug Use History: None Reported Medications and Allergies Home Medications Medication Instructions Recorded Confirmed Type Donepezil [Aricept] 5 mg PO HS 09/14/20 12/29/20 History Latanoprost/Pf [Latanoprost 0.005% 1 drop BOTH EYES HS 09/14/20 12/29/20 History Eye Drop] Sodium Bicarbonate Tab 650 mg PO TID #90 tab 11/20/20 12/29/20 Rx Cholecalciferol (Vitamin D3) 125 mcg PO DAILY 12/25/20 12/29/20 History [Vitamin D3 (125 MCG = 5,000 IU)] Daptomycin 400 mg IV HS@199912/25/20 12/29/20 History Glimepiride [Amaryl] 4 mg PO DAILY 12/25/20 12/29/20 History Iron Polysaccharide Complex 150 mg PO DAILY 12/25/20 12/29/20 History [Ferrex 150] Metoprolol Succinate (ER) [Toprol 100 mg PO DAILY 12/25/20 12/29/20 History XL] OLANZapine [ZyPREXA] 2.5 mg PO HS 12/25/20 12/29/20 History Pantoprazole Sodium [Protonix] 40 mg PO DAILY 12/25/20 12/29/20 History Simvastatin [Zocor] 20 mg PO HS 12/25/20 12/29/20 History Sucralfate [Carafate] 1 gm PO DAILY 12/25/20 12/29/20 History amLODIPine [Norvasc] 5 mg PO DAILY 12/25/20 12/29/20 History Allergies Allergy/AdvReac Type Severity Reaction Status Date / Time No Known Allergies Allergy Verified 12/29/20 23:24 Physical Exam Vitals: Vital Signs Temp Pulse Resp BP Pulse Ox 12/31/20 08:00 98.5 F 88 16 166/73 95 12/31/20 02:00 98.5 F 115 H 14 148/77 98 12/30/20 20:00 97.4 F L 117 H 16 157/77 99 12/30/20 13:45 98.3 F 117 H 16 157/75 98 Intake and Output 12/30/20 12/31/20 12/31/20 22:59 06:59 14:59 Other: # Voids 3 # Bowel Movements 0 Results CBC & Chem 7: 12/29/20 20:27 12/31/20 07:41 Labs: Abnormal Lab Results - Last 24 Hours (Table) 12/30/20 12/30/20 12/30/20 Range/Units 10:47 14:32 16:40 Creatinine (0.52-1.04) mg/dL Glucose (74-99) mg/dL POC Glucose (mg/dL) 127 H 164 H 158 H (75-99) mg/dL 12/30/20 12/31/20 12/31/20 Range/Units 22:07 04:27 07:41 Creatinine 1.11 H (0.52-1.04) mg/dL Glucose 208 H (74-99) mg/dL POC Glucose (mg/dL) 186 H 227 H (75-99) mg/dL 12/31/20 Range/Units 09:47 Creatinine (0.52-1.04) mg/dL Glucose (74-99) mg/dL POC Glucose (mg/dL) 257 H (75-99) mg/dL Microbiology - Last 24 Hours (Table) 12/29/20 23:55 Blood Culture - Preliminary Blood No Growth after 24 hours 12/29/20 00:12 Blood Culture - Preliminary Blood No Growth after 24 hours
--- NOTE | 2020-12-31 12:22 | P.DS ---
Providers Date of admission: 12/30/20 12:20 Expected date of discharge: 12/31/20 Attending physician: Osmar Gibson MD Consults: 12/29/20 23:13 Consult Physician Urgent Consulting Provider: Gail Ordonez Consult Reason/Comments: bactermia Do you want consulting provider notified?: Yes Primary care physician: Anand Flaherty MD Hospital Course: This is a 75-year-old female, Indonesian-speaking only, with complex past medical history significant for recent diagnosis of osteomyelitis of the left he currently on antibiotic at home through a PICC line that presented to the emergency room with episode of hypoglycemia. Patient was found to have a blood glucose of 38 and was placed on observation. Home dose of Amaryl was discontinued. Patient was observed on sliding scale insulin and her blood glucose improved significantly. Amaryl will be discontinued. Patient will be started on glipizide 2.5 mg twice daily before meals. Her diabetes is well controlled. Most recent A1c was 6.8. During this admission, patient was seen by wound care and infectious disease. Plan to finish antibiotic course with daptomycin as scheduled at home. Patient will be discharged home in a stable condition. She was seen and evaluated by me on the day of discharge. Physical exam: General: The patient is awake and alert, in no distress Eye: there is normal conjunctiva bilaterally. Neck: The neck is supple, there is no JVD. Cardiovascular: Normal S1-S2, no S3-S4, no murmurs. Respiratory: Lungs clear to auscultation bilaterally Gastrointestinal: Abdomen is soft, nontender Musculoskeletal: There is no pedal edema. Neurological:. Speech is normal. Skin: Skin is warm and dry Patient Condition at Discharge: Stable Plan - Discharge Summary New Discharge Prescriptions: New glipiZIDE [Glucotrol] 2.5 mg PO AC-BID #60 tablet Continue Latanoprost/Pf [Latanoprost 0.005% Eye Drop] 1 drop BOTH EYES HS Donepezil [Aricept] 5 mg PO HS Sucralfate [Carafate] 1 gm PO DAILY Pantoprazole Sodium [Protonix] 40 mg PO DAILY Metoprolol Succinate (ER) [Toprol XL] 100 mg PO DAILY Iron Polysaccharide Complex [Ferrex 150] 150 mg PO DAILY OLANZapine [ZyPREXA] 2.5 mg PO HS Sodium Bicarbonate Tab 650 mg PO TID #90 tab amLODIPine [Norvasc] 5 mg PO DAILY Daptomycin 400 mg IV HS@1999 Cholecalciferol (Vitamin D3) [Vitamin D3 (125 MCG = 5,000 IU)] 125 mcg PO DAILY Simvastatin [Zocor] 20 mg PO HS Discontinued Glimepiride [Amaryl] 4 mg PO DAILY Discharge Medication List Donepezil [Aricept] 5 mg PO HS 09/14/20 [History] Latanoprost/Pf [Latanoprost 0.005% Eye Drop] 1 drop BOTH EYES HS 09/14/20 [History] Sodium Bicarbonate Tab 650 mg PO TID #90 tab 11/20/20 [Rx] Cholecalciferol (Vitamin D3) [Vitamin D3 (125 MCG = 5,000 IU)] 125 mcg PO DAILY 12/25/20 [History] Daptomycin 400 mg IV HS@2000 12/25/20 [History] Iron Polysaccharide Complex [Ferrex 150] 150 mg PO DAILY 12/25/20 [History] Metoprolol Succinate (ER) [Toprol XL] 100 mg PO DAILY 12/25/20 [History] OLANZapine [ZyPREXA] 2.5 mg PO HS 12/25/20 [History] Pantoprazole Sodium [Protonix] 40 mg PO DAILY 12/25/20 [History] Simvastatin [Zocor] 20 mg PO HS 12/25/20 [History] Sucralfate [Carafate] 1 gm PO DAILY 12/25/20 [History] amLODIPine [Norvasc] 5 mg PO DAILY 12/25/20 [History] glipiZIDE [Glucotrol] 2.5 mg PO AC-BID #60 tablet 12/31/20 [Rx] Follow up Appointment(s)/Referral(s): [facility], [NON-STAFF] - Anand Flaherty MD [Primary Care Provider] - 1-2 days [facility] [NON-STAFF] - [facility] [NON-STAFF] - 01/01/21 2:15 pm Discharge Disposition: HOME WITH HOME HEALTH SERVICES
--- NOTE | 2020-12-31 15:20 | PN ---
PROGRESS NOTE DATE OF SERVICE: 12/31/2020 REASON FOR FOLLOWUP: Left heel osteomyelitis, Enterococcus. INTERVAL HISTORY: The patient is afebrile. The patient is breathing comfortably. The patient denies having any chest pain. No shortness of breath or cough. No nausea, vomiting. No abdominal pain or pain to the left heel area. PHYSICAL EXAMINATION: Blood pressure is 166/72 with a pulse of 80, temperature 98.5. She is 95% on room air. General description is an elderly female lying in bed in no distress. Respiratory system: Unlabored breathing, clear to auscultation anteriorly. Heart S1, S2. Regular rate and rhythm. Abdomen soft, no tenderness. Left heel is currently dressed. No obvious drainage on the dressing. LABS: No new labs have been obtained today. DIAGNOSTIC IMPRESSION AND PLAN: Patient with left heel nonhealing wound with underlying osteomyelitis. To continue with daptomycin for another two weeks and close outpatient followup. Local wound care per surgery. MMODL / IJN: [id number] /
== END 2020-12-31 17:21 | disposition home health service (06) | DRG 637 ==
LOC: EC 19:48 → 1SOBS 22:59 → OBSVTOIN 12-30 12:20
PROVIDERS: ADMIT Internal Medicine; ATTEND Internal Medicine
DX: E11.649 Type 2 diabetes mellitus with hypoglycemia without coma (principal); L89.623 Pressure ulcer of left heel, stage 3; M86.9 Osteomyelitis, unspecified; R78.81 Bacteremia; E11.65 Type 2 diabetes mellitus with hyperglycemia; N17.9 Acute kidney failure, unspecified; E11.621 Type 2 diabetes mellitus with foot ulcer; E11.69 Type 2 diabetes mellitus with other specified complication; E78.5 Hyperlipidemia, unspecified; F03.90 Unspecified dementia, unspecified severity, without behavioral disturbance, psychotic disturbance, mood disturbance, and anxiety; I10 Essential (primary) hypertension; I25.10 Atherosclerotic heart disease of native coronary artery without angina pectoris; L89.151 Pressure ulcer of sacral region, stage 1; Z20.822 Contact with and (suspected) exposure to COVID-19; Z79.84 Long term (current) use of oral hypoglycemic drugs; Z79.899 Other long term (current) drug therapy; Z95.5 Presence of coronary angioplasty implant and graft; L97.529 Non-pressure chronic ulcer of other part of left foot with unspecified severity; R19.7 Diarrhea, unspecified; B95.2 Enterococcus as the cause of diseases classified elsewhere
CPT/HCPCS: 36415; 74018; 80048; 80053; 81001; 82150; 83690; 85025; 87040; 87086; 87635; 93005; 96361; 96374; 99285

== ENCOUNTER 2021-02-10 13:24 | Inpatient (IN) | payer MEDICARE ==
[2021-02-10] MEDS ORDERED: ONDANSETRON 4 MG/2 ML VIAL IVP STA (14:08)
[2021-02-10] MEDS ORDERED: MORPHINE SULFATE 4 MG/ML SYRINGE IV STA (14:08)
[2021-02-10] MEDS ORDERED: SODIUM CHLORIDE 0.9% 500 ML 500 ML IV STA (14:08)
[2021-02-10 14:53] LABS: Basophils # (A) 0.1 k/uL (0-0.2); Basophils % (A) 0 %; Eosinophils # (A) 0.3 k/uL (0-0.7); Eosinophils % (A) 2 %; HCT 33.2 % (34.0-46.0); Hypochromasia Marked; Lymphocytes # (A) 1.1 k/uL (1.0-4.8); Lymphocytes % (A) 6 %; MCH 25.4 pg (25.0-35.0); MCV 84.7 fL (80.0-100.0); Mean Platelet Volume 7.6; Monocytes # (A) 0.8 k/uL (0-1.0); Monocytes % (A) 4 %; Neutrophils % (A) 88 %; Platelet Count 526 k/uL (150-450); RBC 3.92 m/uL (3.80-5.40); RDW 14.4 % (11.5-15.5); WBC 18.2 k/uL (3.8-10.6)
[2021-02-10 14:59] LABS: Albumin 3.1 g/dL (3.5-5.0); Calcium 9.6 mg/dL (8.4-10.2); Total Bilirubin 0.7 mg/dL (0.2-1.3); Total Protein 6.6 g/dL (6.3-8.2)
[2021-02-10 15:03] LABS: Potassium 5.4 mmol/L (3.5-5.1)
--- NOTE | 2021-02-10 15:38 | ED ---
General Adult HPI - General Source: family, EMS, [employer] Mode of arrival: EMS Limitations: no limitations <Akilah Rooney - Last Filed: 02/10/21 15:42> <Vladimir Chong - Last Filed: 02/10/21 21:47> - General Chief complaint: Nausea/Vomiting/Diarrhea Stated complaint: Weakness - History of Present Illness Initial comments: Patient is a 75 year old female who presents emergency Department with reported abdominal pain. She does have a history of coronary artery disease, diabetes, hypertension and hyperlipidemia. She predominetly speaks [place] so her daughter is at bedside and helps provide a history. She reports that for the past week she has had diarrhea. It started off as black stools however now it has become mucousy. The home care nurse was at the house yesterday and tested her for C. diff. She does have history of C. diff. The black and bloody stools have resolved. The patient has had nausea. She ate oatmeal this morning and held it down. They have not been giving her any medications. She does have some lower abdominal cramping and generalized weakness. No chest pain or shortness of breath. No fevers. The remainder of the HPI is limited because of the patient's language barrier (Akilah Rooney) - Related Data Home Medications Medication Instructions Recorded Confirmed Donepezil [Aricept] 5 mg PO HS 09/14/20 02/10/21 Latanoprost/Pf [Latanoprost 0.005% 1 drop BOTH EYES HS 09/14/20 02/10/21 Eye Drop] Cholecalciferol (Vitamin D3) 125 mcg PO DAILY 12/25/20 02/10/21 [Vitamin D3 (125 MCG = 5,000 IU)] Iron Polysaccharide Complex 150 mg PO DAILY 12/25/20 02/10/21 [Ferrex 150] Metoprolol Succinate (ER) [Toprol 100 mg PO DAILY 12/25/20 02/10/21 XL] OLANZapine [ZyPREXA] 2.5 mg PO HS 12/25/20 02/10/21 Pantoprazole Sodium [Protonix] 40 mg PO DAILY 12/25/20 02/10/21 Simvastatin [Zocor] 20 mg PO HS 12/25/20 02/10/21 amLODIPine [Norvasc] 5 mg PO DAILY 12/25/20 02/10/21 Collagenase [Santyl Ointment] 1 applic TOPICAL HS 02/10/21 02/10/21 Ondansetron Odt [Zofran Odt] 4 mg PO BID PRN 02/10/21 02/10/21 glipiZIDE [Glucotrol] 2.5 mg PO AC-BID 02/10/21 02/10/21 Previous Rx's Medication Instructions Recorded Sodium Bicarbonate Tab 650 mg PO TID #90 tab 11/20/20 Allergies Allergy/AdvReac Type Severity Reaction Status Date / Time No Known Allergies Allergy Verified 02/10/21 20:53 Review of Systems ROS Other: All systems not noted in ROS Statement are negative. <Akilah Rooney - Last Filed: 02/10/21 15:42> ROS Other: All systems not noted in ROS Statement are negative. <Vladimir Chong - Last Filed: 02/10/21 21:47> ROS Statement: Those systems with pertinent positive or pertinent negative responses have been documented in the HPI. Past Medical History Past Medical History: Coronary Artery Disease (CAD), Diabetes Mellitus, Hyperlipidemia, Hypertension Additional Past Medical History / Comment(s): mild, wound care center for left. left broken ankle. History of Any Multi-Drug Resistant Organisms: None Reported Past Surgical History: Cholecystectomy, Heart Catheterization With Stent, Ort hopedic Surgery Additional Past Surgical History / Comment(s): hip surgery, cataract sx, left ankle surgery 2020 Past Anesthesia/Blood Transfusion Reactions: No Reported Reaction Date of Last Stent Placement:: 2000 Past Psychological History: No Psychological Hx Reported Smoking Status: Never smoker Past Alcohol Use History: None Reported Past Drug Use History: None Reported <Akilah Rooney - Last Filed: 02/10/21 15:42> General Exam Limitations: language barrier General appearance: alert, in no apparent distress Head exam: Present: atraumatic, normocephalic, normal inspection Eye exam: Present: normal appearance, PERRL, EOMI. Absent: scleral icterus, conjunctival injection, periorbital swelling ENT exam: Present: normal exam, mucous membranes moist Neck exam: Present: normal inspection. Absent: tenderness, meningismus, ly mphadenopathy Respiratory exam: Present: normal lung sounds bilaterally. Absent: respiratory distress, wheezes, rales, rhonchi, stridor Cardiovascular Exam: Present: regular rate, normal rhythm, normal heart sounds. Absent: systolic murmur, diastolic murmur, rubs, gallop, clicks GI/Abdominal exam: Present: soft, tenderness (Left and right lower abdominal quadrants), normal bowel sounds. Absent: distended, guarding, rebound, rigid Rectal exam: Present: other (Yellow mucousy stool). Absent: fecal impaction, hemorrhoids Extremities exam: Present: normal inspection, full ROM, normal capillary refill. Absent: tenderness, pedal edema, joint swelling, calf tenderness Back exam: Present: normal inspection Neurological exam: Present: alert, oriented X3, CN II-XII intact Psychiatric exam: Present: normal affect, normal mood Skin exam: Present: warm, dry, intact, normal color. Absent: rash <Akilah Rooney - Last Filed: 02/10/21 15:42> Course Vital Signs 02/10/21 02/10/21 02/10/21 13:30 16:30 17:30 Temperature 98.9 F 98.0 F Pulse Rate 97 105 H 98 Pulse Rate [ Left] Respiratory 18 20 20 Rate Blood Pressure 94/46 100/50 106/78 Blood Pressure [Left Arm] O2 Sat by Pulse 96 96 97 Oximetry 02/10/21 02/10/21 18:20 20:00 Temperature 98.9 F 98.9 F Pulse Rate 100 Pulse Rate [ 99 Left] Respiratory 20 16 Rate Blood Pressure 95/61 Blood Pressure 101/58 [Left Arm] O2 Sat by Pulse 96 95 Oximetry EKG Findings - EKG Comments: EKG Findings:: EKG demonstrates a sinus tachycardia with a ventricular rate of 123. RI interval 120. QRS 98. QTC of 472. No acute ST segment elevations or depressions <Akilah Rooney - Last Filed: 02/10/21 15:42> Medical Decision Making - Lab Data Result diagrams: 02/10/21 14:26 02/10/21 14:26 <Akilah Rooney Last Filed: 02/10/21 15:42> - Lab Data Result diagrams: 02/10/21 14:26 02/10/21 14:26 <Vladimir Chong - Last Filed: 02/10/21 21:47> - Medical Decision Making Upon arrival the patient is placed into room 24. A thorough history and physical exam is performed. IV is established and the patient is given a 500 bolus. She is also given formal grams of morphine for pain control informal grams of Zofran for nausea. I did perform a bedside exam which demonstrates mucousy yellow stool. No gross blood. Occult is sent. I did review the patient's laboratory studies. White count is 18.2. Creatinine 2.5. CT without contrast is ordered. The case is signed out to Dr. Chong pending CT (Akilah Rooney) Patient was signed out to me as known suspected colitis on IV antibiotics pending admission. Prior physician ordered CT imaging and results are pending. Patient's CT imaging was consistent for acute colitis. Laboratory studies are relatively unremarkable, including a negative lactic acid. I contacted the admitting team, Dr. Henriquez who accepted the patient. They requested that I hold on consulting surgery at this time and they will evaluate the patient. Patient was therefore admitted in serious condition for colitis for IV antibiotics. (Vladimir Chong) - Lab Data Lab Results 02/10/21 02/10/21 02/10/21 Range/Units 14:26 14:26 14:26 WBC 18.2 H (3.8-10.6) k/uL RBC 3.92 (3.80-5.40) m/uL Hgb 10.0 L (11.4-16.0) gm/dL Hct 33.2 L (34.0-46.0) % MCV 84.7 (80.0-100.0) fL MCH 25.4 (25.0-35.0) pg MCHC 30.0 L (31.0-37.0) g/dL RDW 14.4 (11.5-15.5) % Plt Count 526 H (150-450) k/uL MPV 7.6 Neutrophils % 88 % Lymphocytes % 6 % Monocytes % 4 % Eosinophils % 2 % Basophils % 0 % Neutrophils # 16.0 H (1.3-7.7) k/uL Lymphocytes # 1.1 (1.0-4.8) k/uL Monocytes # 0.8 (0-1.0) k/uL Eosinophils # 0.3 (0-0.7) k/uL Basophils # 0.1 (0-0.2) k/uL Hypochromasia Marked Sodium 133 L (137-145) mmol/L Potassium 5.4 H (3.5-5.1) mmol/L Chloride 98 (98-107) mmol/L Carbon Dioxide 22 (22-30) mmol/L Anion Gap 13 mmol/L BUN 42 H (7-17) mg/dL Creatinine 2.51 H (0.52-1.04) mg/dL Est GFR (CKD-EPI)AfAm 21 (>60 ml/min/1.73 sqM) Est GFR (CKD-EPI)NonAf 18 (>60 ml/min/1.73 sqM) Glucose 191 H (74-99) mg/dL Plasma Lactic Acid Lemuel 1.8 (0.7-2.0) mmol/L Calcium 9.6 (8.4-10.2) mg/dL Total Bilirubin 0.7 (0.2-1.3) mg/dL AST 20 (14-36) U/L ALT 8 (4-34) U/L Alkaline Phosphatase 74 (38-126) U/L Total Protein 6.6 (6.3-8.2) g/dL Albumin 3.1 L (3.5-5.0) g/dL Lipase 25 (23-300) U/L Urine Color Urine Appearance (Clear) Urine pH (5.0-8.0) Ur Specific [place] (1.001-1.035) Urine Protein (Negative) Urine Glucose (UA) (Negative) Urine Ketones (Negative) Urine Blood (Negative) Urine Nitrite (Negative) Urine Bilirubin (Negative) Urine Urobilinogen (<2.0) mg/dL Ur Leukocyte Esterase (Negative) Urine RBC (0-5) /hpf Urine WBC (0-5) /hpf Urine WBC Clumps (None) /hpf Ur Squamous Epith Cells (0-4) /hpf Urine Bacteria (None) /hpf Hyaline Casts (0-2) /lpf Urine Mucus (None) /hpf Urine Yeast (Budding) (None) /hpf Stool Occult Blood (Negative) 02/10/21 02/10/21 Range/Units 15:00 16:51 WBC (3.8-10.6) k/uL RBC (3.80-5.40) m/uL Hgb (11.4-16.0) gm/dL Hct (34.0-46.0) % MCV (80.0-100.0) fL MCH (25.0-35.0) pg MCHC (31.0-37.0) g/dL RDW (11.5-15.5) % Plt Count (150-450) k/uL MPV Neutrophils % % Lymphocytes % % Monocytes % % Eosinophils % % Basophils % % Neutrophils # (1.3-7.7) k/uL Lymphocytes # (1.0-4.8) k/uL Monocytes # (0-1.0) k/uL Eosinophils # (0-0.7) k/uL Basophils # (0-0.2) k/uL Hypochromasia Sodium (137-145) mmol/L Potassium (3.5-5.1) mmol/L Chloride (98-107) mmol/L Carbon Dioxide (22-30) mmol/L Anion Gap mmol/L BUN (7-17) mg/dL Creatinine (0.52-1.04) mg/dL Est GFR (CKD-EPI)AfAm (>60 ml/min/1.73 sqM) Est GFR (CKD-EPI)NonAf (>60 ml/min/1.73 sqM) Glucose (74-99) mg/dL Plasma Lactic Acid Lemuel (0.7-2.0) mmol/L Calcium (8.4-10.2) mg/dL Total Bilirubin (0.2-1.3) mg/dL AST (14-36) U/L ALT (4-34) U/L Alkaline Phosphatase (38-126) U/L Total Protein (6.3-8.2) g/dL Albumin (3.5-5.0) g/dL Lipase (23-300) U/L Urine Color Yellow Urine Appearance Turbid H (Clear) Urine pH 5.0 (5.0-8.0) Ur Specific [place] 1.022 (1.001-1.035) Urine Protein 1+ H (Negative) Urine Glucose (UA) Negative (Negative) Urine Ketones Negative (Negative) Urine Blood Trace H (Negative) Urine Nitrite Negative (Negative) Urine Bilirubin Negative (Negative) Urine Urobilinogen 2.0 (<2.0) mg/dL Ur Leukocyte Esterase Large H (Negative) Urine RBC 11 H (0-5) /hpf Urine WBC >182 H (0-5) /hpf Urine WBC Clumps Many H (None) /hpf Ur Squamous Epith Cells 11 H (0-4) /hpf Urine Bacteria Many H (None) /hpf Hyaline Casts 50 H (0-2) /lpf Urine Mucus Few H (None) /hpf Urine Yeast (Budding) Many H (None) /hpf Stool Occult Blood Positive H (Negative) Disposition <Akilah Rooney - Last Filed: 02/10/21 15:42> <Vladimir Chong - Last Filed: 02/10/21 21:47> Clinical Impression: Colitis, CADE (acute kidney injury) Disposition: ADMITTED IP TO THIS HOSP Condition: Serious
[2021-02-10] MEDS ORDERED: PIPERACILLIN-TAZOBACTAM 3.375 GM in SODIUM CHLORIDE 0.9% 100 ML IVPB STA (15:43)
--- NOTE | 2021-02-10 16:30 | CT ---
EXAMINATION TYPE: CT abdomen pelvis wo con DATE OF EXAM: 02/10/2021 COMPARISON: None INDICATION: Abdominal pain DLP: 563.6 mGycm, Automated exposure control for dose reduction was used. CONTRAST: 0 mL of Isovue 300. Study performed without Oral Contrast TECHNIQUE: Axial images were obtained from above the diaphragm to the pubic rami in the axial plane a t 5 mm thick sections. Reconstructed images are reviewed on the computer in the coronal plane. FINDINGS: Limited CT sections are obtained the lung bases. The lung bases are clear. Small pericardial effusi on is present. A small left pleural effusion is present. Some compressive atelectasis at bilateral bob ng bases. Some calcified pleural plaque may be present in the posterior right lung base. Coronary art vee calcification is noted. CT ABDOMEN: Ascites is present. Liver: Normal Spleen: Normal. Splenic artery calcification is present. Pancreas: Normal Adrenal glands: The adrenal glands are normal. Gallbladder: Normal Kidneys: No masses are evident. No hydronephrosis is present. 1.5 cm complex cyst may be in the sup erior right kidney Delayed images were obtained through the kidneys, which remain unremarkable. Vasc ular calcifications present. Aorta: Vascular calcification is within the aorta. Inferior vena cava: Normal. CT PELVIS: There is diffuse thickening through the ascending colon transverse colon and descending colon and sig moid colon to the rectum. Minimal diffuse inflammatory changes present through this region. Consider a colitis such as ulcerative colitis. Bowel ischemia could be considered. Report was called and case discussed with the emergency room physician Dr. Chong by Dr. Abreu by telephone at the time of i nterpretation. Small bowel loops appear unremarkable. There are loops of bowel which are incompletely distended or lack oral contrast limiting their evaluation. Appendix: Not identified or no suspicious dilated tubular structure or inflammatory changes. Urinary bladder: Air in in the urinary Bladder Genitourinary structures: Uterus is normal. Adnexal regions are within normal limits. Osseous structures: No suspicious lytic or sclerotic lesions. IMPRESSIONS: 1. Cortical correlation recommended for colitis such as ulcerative colitis. Report was called to the emergency room by Dr. Abreu from the time of interpretation. 2. Air within urinary bladder. Correlate for recent instrumentation. 3. Mild ascites. 4. Small left pleural effusion. 5. Small Pericardial effusion. 6. Atelectasis bilateral lung bases
[2021-02-10] MEDS: SODIUM CHLORIDE 0.9% 1,000 ML IV SCH (16:32)
[2021-02-10 17:10] LABS: Appearance,Urine Turbid (Clear); Bacteria,Urine Many /hpf; Bilirubin,Urine Negative (Negative); Blood,Urine Trace (Negative); Budding Yeast,Urine Many /hpf; Color,Urine Yellow; Glucose,Urine (UA) Negative (Negative); Hyaline Casts,Urine 50 /lpf (0-2); Ketones,Urine Negative (Negative); Leukocyte Esterase,Urine Large (Negative); Mucus,Urine Few /hpf; Nitrite,Urine Negative (Negative); Protein,Urine 1+ (Negative); RBC,Urine 11 /hpf (0-5); Specific Gravity,Urine 1.022 (1.001-1.035); Squamous Epithelial Cell,Urine 11 /hpf (0-4); WBC,Urine >182 /hpf (0-5)
[2021-02-10] MEDS ORDERED: NALOXONE 0.4 MG/ML 1 ML VIAL IV PRN (17:21)
[2021-02-10] MEDS ORDERED: MORPHINE SULFATE 4 MG/ML SYRINGE IV PRN (17:21)
[2021-02-10] MEDS ORDERED: ONDANSETRON 4 MG/2 ML VIAL IVP PRN (17:21)
[2021-02-10 20:34] LABS: Glucose,Whole Blood 190 mg/dL (75-99)
[2021-02-10] MEDS ORDERED: DONEPEZIL 5 MG TAB PO SCH (23:00)
--- NOTE | 2021-02-11 03:13 | P.HPIM ---
History of Present Illness H&P Date: 02/10/21 Chief Complaint: Abdominal pain diarrhea 75-year-old female with history of C. diff, diabetes mellitus, hypertension, CAD, dementia History is limited due to language barrier patient only speaks Divehi no family available for history taking, history obtained by reviewing medical record 3 Patient is presented for diarrhea of one week duration and generalized fatigue and weakness. Poor by mouth intake and abdominal cramps. It's not clear if patient has been having fevers or chills. The second was a report of melena however resolved. Patient also has recent history of C. diff. She was recently hospitalized for hypoglycemia symptomatic was treated and discharged This time patient found to have acute colitis with computed tomography scan showing small pericardial effusion and pleural effusion. Patient has leukocytosis and acute kidney injury Occult blood testing and stool was positive Urine was contaminated sample No other history is obtainable at this time Review of Systems Unable to obtain due to language barrier Past Medical History Past Medical History: Coronary Artery Disease (CAD), Diabetes Mellitus, Hyperlipidemia, Hypertension Additional Past Medical History / Comment(s): mild, wound care center for left. left broken ankle. History of Any Multi-Drug Resistant Organisms: None Reported Past Surgical History: Cholecystectomy, Heart Catheterization With Stent, Orthopedic Surgery Additional Past Surgical History / Comment(s): hip surgery, cataract sx, left ankle surgery 2020 Past Anesthesia/Blood Transfusion Reactions: No Reported Reaction Date of Last Stent Placement:: 2000 Past Psychological History: No Psychological Hx Reported Smoking Status: Never smoker Past Alcohol Use History: None Reported Past Drug Use History: None Reported Medications and Allergies Home Medications Medication Instructions Recorded Confirmed Type Donepezil [Aricept] 5 mg PO HS 09/14/20 02/10/21 History Latanoprost/Pf [Latanoprost 0.005% 1 drop BOTH EYES HS 09/14/20 02/10/21 History Eye Drop] Sodium Bicarbonate Tab 650 mg PO TID #90 tab 11/20/20 02/10/21 Rx Cholecalciferol (Vitamin D3) 125 mcg PO DAILY 12/25/20 02/10/21 History [Vitamin D3 (125 MCG = 5,000 IU)] Iron Polysaccharide Complex 150 mg PO DAILY 12/25/20 02/10/21 History [Ferrex 150] Metoprolol Succinate (ER) [Toprol 100 mg PO DAILY 12/25/20 02/10/21 History XL] OLANZapine [ZyPREXA] 2.5 mg PO HS 12/25/20 02/10/21 History Pantoprazole Sodium [Protonix] 40 mg PO DAILY 12/25/20 02/10/21 History Simvastatin [Zocor] 20 mg PO HS 12/25/20 02/10/21 History amLODIPine [Norvasc] 5 mg PO DAILY 12/25/20 02/10/21 History Collagenase [Santyl Ointment] 1 applic TOPICAL HS 02/10/21 02/10/21 History Ondansetron Odt [Zofran Odt] 4 mg PO BID PRN 02/10/21 02/10/21 History glipiZIDE [Glucotrol] 2.5 mg PO AC-BID 02/10/21 02/10/21 History Allergies Allergy/AdvReac Type Severity Reaction Status Date / Time No Known Allergies Allergy Verified 02/10/21 20:53 Physical Exam Vitals: Vital Signs Temp Pulse Pulse Resp BP BP Pulse Ox 02/10/21 20:25 98.0 F 98 20 100/63 96 02/10/21 20:00 98.9 F 99 16 101/58 95 02/10/21 18:20 98.9 F 100 20 95/61 96 02/10/21 17:30 98 20 106/78 97 02/10/21 16:30 98.0 F 105 H 20 100/50 96 02/10/21 13:30 98.9 F 97 18 94/46 96 Intake and Output 02/10/21 02/10/21 02/10/21 06:59 14:59 22:59 Other: # Voids 1 Weight 56.699 kg 56.699 kg Constitutional: No acute distress, patient makes good eye contact follow simple commands Eyes: Anicteric sclerae, moist conjunctiva, Pupils equal round reactive to light ENMT: NC/AT Oropharynx clear, no erythema, or exudates Neck: Supple, FROM, no masses, or JVD No carotid bruits No thyromegaly Lungs: Clear to auscultation Clear to percussion Normal respiratory effort, no accessory muscle use Cardiovascular: Heart regular in rate and rhythm, No murmurs, gallops, or rubs No peripheral edema Abdominal: Soft Tenderness to palpation over the left lower quadrant and suprapubic region with voluntary guarding to deep palpation no rigidity no rebound tenderness Abdomen moving with respiration Normoactive bowel sounds No hepatomegaly, No splenomegaly No palpable mass No abdominal wall hernia noted Skin: Normal temperature, tone, texture, turgor No induration No subcutaneous nodules No rash, lesions No ulcers Extremities: No digital cyanosis No clubbing Pedal pulses intact and symmetrical Radial pulses intact and symmetrical No calf tenderness Psychiatric: Alert and oriented to person only Neuro patient moving all 4 extremities otherwise limited due to patient's language barrier Lymphatics: no palpable cervical or supraclavicular , or inguinal lymph nodes Results CBC & Chem 7: 02/10/21 14:26 02/10/21 14:26 Labs: Abnormal Lab Results - Last 24 Hours (Table) 02/10/21 02/10/21 02/10/21 Range/Units 14:26 14:26 15:00 WBC 18.2 H (3.8-10.6) k/uL Hgb 10.0 L (11.4-16.0) gm/dL Hct 33.2 L (34.0-46.0) % MCHC 30.0 L (31.0-37.0) g/dL Plt Count 526 H (150-450) k/uL Neutrophils # 16.0 H (1.3-7.7) k/uL Sodium 133 L (137-145) mmol/L Potassium 5.4 H (3.5-5.1) mmol/L BUN 42 H (7-17) mg/dL Creatinine 2.51 H (0.52-1.04) mg/dL Glucose 191 H (74-99) mg/dL POC Glucose (mg/dL) (75-99) mg/dL Albumin 3.1 L (3.5-5.0) g/dL Urine Appearance (Clear) Urine Protein (Negative) Urine Blood (Negative) Ur Leukocyte Esterase (Negative) Urine RBC (0-5) /hpf Urine WBC (0-5) /hpf Urine WBC Clumps (None) /hpf Ur Squamous Epith Cells (0-4) /hpf Urine Bacteria (None) /hpf Hyaline Casts (0-2) /lpf Urine Mucus (None) /hpf Urine Yeast (Budding) (None) /hpf Stool Occult Blood Positive H (Negative) 02/10/21 02/10/21 Range/Units 16:51 20:31 WBC (3.8-10.6) k/uL Hgb (11.4-16.0) gm/dL Hct (34.0-46.0) % MCHC (31.0-37.0) g/dL Plt Count (150-450) k/uL Neutrophils # (1.3-7.7) k/uL Sodium (137-145) mmol/L Potassium (3.5-5.1) mmol/L BUN (7-17) mg/dL Creatinine (0.52-1.04) mg/dL Glucose (74-99) mg/dL POC Glucose (mg/dL) 190 H (75-99) mg/dL Albumin (3.5-5.0) g/dL Urine Appearance Turbid H (Clear) Urine Protein 1+ H (Negative) Urine Blood Trace H (Negative) Ur Leukocyte Esterase Large H (Negative) Urine RBC 11 H (0-5) /hpf Urine WBC >182 H (0-5) /hpf Urine WBC Clumps Many H (None) /hpf Ur Squamous Epith Cells 11 H (0-4) /hpf Urine Bacteria Many H (None) /hpf Hyaline Casts 50 H (0-2) /lpf Urine Mucus Few H (None) /hpf Urine Yeast (Budding) Many H (None) /hpf Stool Occult Blood (Negative) Microbiology - Last 24 Hours (Table) 02/10/21 16:51 Urine Culture - Preliminary Urine,Clean Catch Thrombosis Risk Factor Assmnt - Choose All That Apply Any of the Below Risk Factors Present?: No Each Risk Factor Represents 2 Points: Age 61-74 years Thrombosis Risk Factor Assessment Total Risk Factor Score: 2 Thrombosis Risk Factor Assessment Level: Low Risk Assessment and Plan Assessment: Severe Sepsis with CADE secondary to acute colitis Follow-up cultures Patient started empirically on Zosyn IV fluid hydration normal saline Supportive care monitor vital signs pain control Acute kidney injury hold nephrotoxic meds IVF hydration monitor renal function and urine output DM, insulin sliding scale hold oral hypoglycemic agents Diarrhea , secondary to colitis with report of blood / black bowel movement check C diff , with recent C diff infection chronic conditions chronic anemia , stable dementia hypertension resume homemeds full code DVT PPX mechanical due to report of possible bloody bowel movement anticipated lenght of stay > 2 midnights
[2021-02-11] MEDS: OLANZapine 2.5 MG TAB PO SCH ×2 (04:10→20:33)
[2021-02-11] MEDS: PIPERACILLIN-TAZOBACTAM 3.375 GM in SODIUM CHLORIDE 0.9% 100 ML IVPB SCH ×2 (04:11→10:11)
[2021-02-11] MEDS: SODIUM CHLORIDE 0.9% 1,000 ML IV SCH (04:31)
[2021-02-11 06:49] LABS: Magnesium 1.7 mg/dL (1.6-2.3); Potassium 3.7 mmol/L (3.5-5.1)
[2021-02-11 06:57] LABS: Basophils # (A) 0.1 k/uL (0-0.2); Basophils % (A) 0 %; Eosinophils # (A) 0.2 k/uL (0-0.7); Eosinophils % (A) 1 %; HCT 29.3 % (34.0-46.0); HGB 9.2 gm/dL (11.4-16.0); Hypochromasia Marked; Lymphocytes # (A) 1.1 k/uL (1.0-4.8); Lymphocytes % (A) 8 %; MCH 26.4 pg (25.0-35.0); MCHC 31.3 g/dL (31.0-37.0); MCV 84.1 fL (80.0-100.0); Mean Platelet Volume 7.4; Monocytes # (A) 0.6 k/uL (0-1.0); Monocytes % (A) 4 %; Neutrophils # (A) 12.7 k/uL (1.3-7.7); Neutrophils % (A) 86 %; Platelet Count 469 k/uL (150-450); RBC 3.48 m/uL (3.80-5.40); RDW 14.6 % (11.5-15.5); WBC 14.8 k/uL (3.8-10.6)
[2021-02-11 07:18] LABS: Glucose,Whole Blood 119 mg/dL (75-99)
[2021-02-11] MEDS: INSULIN ASPART (NovoLOG) 100 UNIT/ML VIAL SQ SCH ×4 (08:45→20:23)
[2021-02-11] MEDS ORDERED: amLODIPine 5 MG TAB PO SCH (09:00)
[2021-02-11] MEDS ORDERED: METOPROLOL SUCCINATE (ER) 100 MG TAB.ER.24H PO SCH (09:00)
[2021-02-11] MEDS ORDERED: METOPROLOL SUCCINATE (ER) 25 MG TAB.ER.24H PO SCH (09:00)
[2021-02-11] MEDS: PANTOPRAZOLE 40 MG TABLET PO SCH (10:11)
[2021-02-11] MEDS: SODIUM BICARBONATE TAB 650 MG TAB PO SCH ×3 (10:12→20:33)
[2021-02-11] MEDS: LACTATED RINGERS 1,000 ML IV SCH ×2 (10:12→20:33)
[2021-02-11] MEDS: ACETAMINOPHEN TAB 325 MG TAB PO PRN (10:22)
--- NOTE | 2021-02-11 11:00 | ECHOF ---
Referral Reason:pericardial effusion MEASUREMENTS -------- HEIGHT: 162.6 cm WEIGHT: 56.7 kg BP: FINDINGS -------- Pt had Echos 10-27 & 01-25: Echos showed small effusion, echo 02/11/21 still shows small effusion. There is a small, generalized pericardial effusion present. CONCLUSIONS -------- 1. Pt had Echos 10-27 & 01-25: Echos showed small effusion, echo 02/11/21 still shows small effusion. 2. There is a small, generalized pericardial effusion present. 3. [employer]: Belinda Butterfield RDCS
--- NOTE | 2021-02-11 11:45 | P.PN ---
Subjective Principal diagnosis: Colitis, diarrhea Chart was reviewed. Patient was seen and examined. Patient is 75-year-old female with history of dementia, bipolar disorder, chronic kidney disease who presented to the hospital for evaluation of diarrhea. Patient is a poor historian. History is obtained from her daughter over the phone. Per , patient started having diarrhea about one week ago, more precisely this last Tuesday she showed loose stool at 30 bowel movements several a day with mucus. No blood. Initially bowel movements were black however that cleared up. Off note patient is on oral iron. The last 2-3 days bowel movements are brown in color. This was accompanied by cramping in the left lower abdominal quadrant. Patient had mild nausea but no vomiting. She had poor oral intake. She did not have any fever or chills. No syncopal defects. No new medications. She was on prolonged course of antibiotics for her lower extremity wound, last antibiotic was 1 month ago. Patient has a history of C. diff colitis. Patient had EGD and colonoscopy couple months ago and found to have peptic ulcer disease and colitis which was not biopsied to my understanding as her stool was positive for C. diff toxin. Patient does not follow with any sausage cooker and was never told that she might have inflammatory bowel disease. Objective - Vital Signs Vital signs: Vital Signs Temp 99.8 F H 02/11/21 08:00 Pulse 95 02/11/21 08:00 Resp 16 02/11/21 08:00 BP 103/56 02/11/21 08:00 Pulse Ox 97 02/11/21 08:00 Intake & Output 02/10/21 02/11/21 02/11/21 18:59 06:59 18:59 Intake Total 400 Balance 400 Weight 56.699 kg Intake: Intake, IV Titration 400 Amount Piperacillin-Tazobactam 3 100 .375 gm In Sodium Chloride 0.9% 100 ml @ 25 mls/hr IVPB Q8H ANNMARIE Rx#: [id number] Sodium Chloride 0.9% 1, 300 000 ml @ 130 mls/hr IV . [id number] ANNMARIE Rx#:[id number] Other: # Voids 1 - Exam Patient is awake and alert in no apparent distress Head and neck: Anicteric sclera oropharyngeal mucosa is dry without any lesions no neck masses or JVD Lungs: Clear to auscultation Cardiovascular regular rhythm and rate Abdomen: Bowel sounds are present throughout, abdomen is soft nondistended no any point of tenderness nor organomegaly no flank pain Extremities: Trace peripheral edema warm and well-perfused Neurological follicle months no focal deficits no asterixis - Labs CBC & Chem 7: 02/11/21 06:06 02/11/21 06:06 Labs: Abnormal Lab Results - Last 24 Hours (Table) 02/10/21 02/10/21 02/10/21 Range/Units 14:26 14:26 15:00 WBC 18.2 H (3.8-10.6) k/uL RBC (3.80-5.40) m/uL Hgb 10.0 L (11.4-16.0) gm/dL Hct 33.2 L (34.0-46.0) % MCHC 30.0 L (31.0-37.0) g/dL Plt Count 526 H (150-450) k/uL Neutrophils # 16.0 H (1.3-7.7) k/uL Sodium 133 L (137-145) mmol/L Potassium 5.4 H (3.5-5.1) mmol/L BUN 42 H (7-17) mg/dL Creatinine 2.51 H (0.52-1.04) mg/dL Glucose 191 H (74-99) mg/dL POC Glucose (mg/dL) (75-99) mg/dL Albumin 3.1 L (3.5-5.0) g/dL Urine Appearance (Clear) Urine Protein (Negative) Urine Blood (Negative) Ur Leukocyte Esterase (Negative) Urine RBC (0-5) /hpf Urine WBC (0-5) /hpf Urine WBC Clumps (None) /hpf Ur Squamous Epith Cells (0-4) /hpf Urine Bacteria (None) /hpf Hyaline Casts (0-2) /lpf Urine Mucus (None) /hpf Urine Yeast (Budding) (None) /hpf Stool Occult Blood Positive H (Negative) 02/10/21 02/10/21 02/11/21 Range/Units 16:51 20:31 06:06 WBC 14.8 H (3.8-10.6) k/uL RBC 3.48 L (3.80-5.40) m/uL Hgb 9.2 L (11.4-16.0) gm/dL Hct 29.3 L (34.0-46.0) % MCHC (31.0-37.0) g/dL Plt Count 469 H (150-450) k/uL Neutrophils # 12.7 H (1.3-7.7) k/uL Sodium (137-145) mmol/L Potassium (3.5-5.1) mmol/L BUN (7-17) mg/dL Creatinine (0.52-1.04) mg/dL Glucose (74-99) mg/dL POC Glucose (mg/dL) 190 H (75-99) mg/dL Albumin (3.5-5.0) g/dL Urine Appearance Turbid H (Clear) Urine Protein 1+ H (Negative) Urine Blood Trace H (Negative) Ur Leukocyte Esterase Large H (Negative) Urine RBC 11 H (0-5) /hpf Urine WBC >182 H (0-5) /hpf Urine WBC Clumps Many H (None) /hpf Ur Squamous Epith Cells 11 H (0-4) /hpf Urine Bacteria Many H (None) /hpf Hyaline Casts 50 H (0-2) /lpf Urine Mucus Few H (None) /hpf Urine Yeast (Budding) Many H (None) /hpf Stool Occult Blood (Negative) 02/11/21 02/11/21 Range/Units 06:06 07:16 WBC (3.8-10.6) k/uL RBC (3.80-5.40) m/uL Hgb (11.4-16.0) gm/dL Hct (34.0-46.0) % MCHC (31.0-37.0) g/dL Plt Count (150-450) k/uL Neutrophils # (1.3-7.7) k/uL Sodium 135 L (137-145) mmol/L Potassium (3.5-5.1) mmol/L BUN 40 H (7-17) mg/dL Creatinine 2.46 H (0.52-1.04) mg/dL Glucose 109 H (74-99) mg/dL POC Glucose (mg/dL) 119 H (75-99) mg/dL Albumin (3.5-5.0) g/dL Urine Appearance (Clear) Urine Protein (Negative) Urine Blood (Negative) Ur Leukocyte Esterase (Negative) Urine RBC (0-5) /hpf Urine WBC (0-5) /hpf Urine WBC Clumps (None) /hpf Ur Squamous Epith Cells (0-4) /hpf Urine Bacteria (None) /hpf Hyaline Casts (0-2) /lpf Urine Mucus (None) /hpf Urine Yeast (Budding) (None) /hpf Stool Occult Blood (Negative) Microbiology - Last 24 Hours (Table) 02/10/21 16:51 Urine Culture - Preliminary Urine,Clean Catch Assessment and Plan Plan: #Acute colitis With nonbloody diarrhea and leukocytosis Patient is afebrile Infectious etiology workup underway Obtain C. diff panel, stool cultures, stool WBCs Ordered empirical treatment with ceftriaxone, Flagyl IV and oral vancomycin Check ESR and CRP, lactic acid No gastroenterology available, consult general surgery if infectious workup comes back negative and no much clinical improvement she may need endoscopy with potential biopsy Hold donepezil Hold home iron #Acute on chronic kidney injury CKD stage III Diabetic nephropathy Nephrology consultation Continue IV fluids, changed to LR Bladder scan Continue home sodium bicarbonate #SIRS r/o sepsis septic work up #Type 2 diabetes mellitus without long-term current use of insulin Restart diabetic diet this tolerated Sliding scale Blood glucose monitoring #Dementia and bipolar disorder Continue Zyprexa Hold Aricept in view of diarrhea #Peptic ulcer disease EGD proven 11/2020 Continue PPI #Hypertension Blood pressure is on the softer side Hold home amlodipine Decrease home Toprol, would prefer not to discontinue completely #Diabetic neuropathy with chronic peripheral wound Wound care consultation pt is a full code spoke with her daughter and updated her plan of care Patient will need formal admission for hydration work up septic workup, she will need more than 2 nights hospital stay
--- NOTE | 2021-02-11 11:53 | P.GSCN ---
<Tri Morales - Last Filed: 02/11/21 11:42> History of Present Illness Consult date: 02/11/21 History of present illness: CHIEF COMPLAINT: Abdominal pain HISTORY OF PRESENT ILLNESS: This is a 75-year-old female with a known history of dementia and is primarily Belarusian speaking. History was mostly obtained from the chart. Patient presented to the hospital with complaint of abdominal pain and diarrhea 1 week. She had abdominal cramping and poor oral intake. Patient had black stools and this has resolved. Denies any fever chills or sweats. She does have a prior history of C. diff colitis. Computed tomography scan of abdomen and pelvis demonstrated colitis. She is currently on antibiotics. She denies any nausea or vomiting. When asked to point where she hurts she points to the lower abdomen suprapubic area. PAST MEDICAL HISTORY: See list. PAST SURGICAL HISTORY: See list. MEDICATIONS: See list. ALLERGIES: See list. SOCIAL HISTORY: No illicit drug use. REVIEW OF SYSTEMS: CONSTITUTIONAL: Denies fever or chills. HEENT: Denies blurred vision, vision changes, or eye pain. Denies hemoptysis CARDIOVASCULAR: Denies chest pain or pressure. RESPIRATORY: No shortness of breath. GASTROINTESTINAL: See HPI for pertinent findings HEMATOLOGIC: Denies bleeding disorders. GENITOURINARY: Denies any blood in urine or increased urinary frequency. SKIN: Denies pruitis. Denies rash. PHYSICAL EXAM: VITAL SIGNS: Reviewed GENERAL: Well-developed in no acute distress. HEENT: No sclera icterus. Extraocular movements grossly intact. Moist buccal mucosa. Head is atraumatic, normocephalic. No nasal drainage. ABDOMEN: Soft. Nondistended. Tenderness to palpation of the lower abdomen and suprapubic area NEUROLOGIC: Awake and alert LABORATORY DATA: WBC 18.2 down to 14.8 Hgb 10 down to 9.2 platelets 469 Creatinine 2.46 Lactic acid 0.8 C. diff negative stool for occult blood positive IMAGING: Computed tomography scan abdomen and pelvis report states correlation recommended for colitis such as ulcerative colitis. Air within the urinary bladder. [place] for recent instrumentation. Mild ascites. Small left pleural effusion. Small pericardial effusion. Atelectasis bilateral lung bases. ASSESSMENT: 1. Abdominal pain with diarrhea and black stools 2. Colitis and concerns for ulcerative colitis noted on computed tomography scan PLAN: -Continue IV antibiotics -Continue IV fluids -Continue clear liquid diet -Continue supportive care -Further recommendations forthcoming per surgeon Thank you for this consultation Physician Operation Specialist note has been reviewed by physician. Signing provider agrees with the documented findings, assessment, and plan of care. Past Medical History Past Medical History: Coronary Artery Disease (CAD), Diabetes Mellitus, Hyperlipidemia, Hypertension Additional Past Medical History / Comment(s): mild, wound care center for left. left broken ankle. History of Any Multi-Drug Resistant Organisms: None Reported Past Surgical History: Cholecystectomy, Heart Catheterization With Stent, Orthopedic Surgery Additional Past Surgical History / Comment(s): hip surgery, cataract sx, left ankle surgery 2020 Past Anesthesia/Blood Transfusion Reactions: No Reported Reaction Date of Last Stent Placement:: 2000 Past Psychological History: No Psychological Hx Reported Smoking Status: Never smoker Past Alcohol Use History: None Reported Past Drug Use History: None Reported Medications and Allergies Home Medications Medication Instructions Recorded Confirmed Type Donepezil [Aricept] 5 mg PO HS 09/14/20 02/10/21 History Latanoprost/Pf [Latanoprost 0.005% 1 drop BOTH EYES HS 09/14/20 02/10/21 History Eye Drop] Sodium Bicarbonate Tab 650 mg PO TID #90 tab 11/20/20 02/10/21 Rx Cholecalciferol (Vitamin D3) 125 mcg PO DAILY 12/25/20 02/10/21 History [Vitamin D3 (125 MCG = 5,000 IU)] Iron Polysaccharide Complex 150 mg PO DAILY 12/25/20 02/10/21 History [Ferrex 150] Metoprolol Succinate (ER) [Toprol 100 mg PO DAILY 12/25/20 02/10/21 History XL] OLANZapine [ZyPREXA] 2.5 mg PO HS 12/25/20 02/10/21 History Pantoprazole Sodium [Protonix] 40 mg PO DAILY 12/25/20 02/10/21 History Simvastatin [Zocor] 20 mg PO HS 12/25/20 02/10/21 History amLODIPine [Norvasc] 5 mg PO DAILY 12/25/20 02/10/21 History Collagenase [Santyl Ointment] 1 applic TOPICAL HS 02/10/21 02/10/21 History Ondansetron Odt [Zofran Odt] 4 mg PO BID PRN 02/10/21 02/10/21 History glipiZIDE [Glucotrol] 2.5 mg PO AC-BID 02/10/21 02/10/21 History Allergies Allergy/AdvReac Type Severity Reaction Status Date / Time No Known Allergies Allergy Verified 02/10/21 20:53 Surgical - Exam Vital Signs Temp Pulse Resp BP Pulse Ox 98.9 F 97 18 94/46 96 02/10/21 13:30 02/10/21 13:30 02/10/21 13:30 02/10/21 13:30 02/10/21 13:30 Results - Labs 02/11/21 06:06 02/11/21 06:06 Abnormal Lab Results - Last 24 Hours (Table) 02/10/21 02/10/21 02/10/21 Range/Units 14:26 14:26 15:00 WBC 18.2 H (3.8-10.6) k/uL RBC (3.80-5.40) m/uL Hgb 10.0 L (11.4-16.0) gm/dL Hct 33.2 L (34.0-46.0) % MCHC 30.0 L (31.0-37.0) g/dL Plt Count 526 H (150-450) k/uL Neutrophils # 16.0 H (1.3-7.7) k/uL Sodium 133 L (137-145) mmol/L Potassium 5.4 H (3.5-5.1) mmol/L BUN 42 H (7-17) mg/dL Creatinine 2.51 H (0.52-1.04) mg/dL Glucose 191 H (74-99) mg/dL POC Glucose (mg/dL) (75-99) mg/dL Albumin 3.1 L (3.5-5.0) g/dL Urine Appearance (Clear) Urine Protein (Negative) Urine Blood (Negative) Ur Leukocyte Esterase (Negative) Urine RBC (0-5) /hpf Urine WBC (0-5) /hpf Urine WBC Clumps (None) /hpf Ur Squamous Epith Cells (0-4) /hpf Urine Bacteria (None) /hpf Hyaline Casts (0-2) /lpf Urine Mucus (None) /hpf Urine Yeast (Budding) (None) /hpf Stool Occult Blood Positive H (Negative) 02/10/21 02/10/21 02/11/21 Range/Units 16:51 20:31 06:06 WBC 14.8 H (3.8-10.6) k/uL RBC 3.48 L (3.80-5.40) m/uL Hgb 9.2 L (11.4-16.0) gm/dL Hct 29.3 L (34.0-46.0) % MCHC (31.0-37.0) g/dL Plt Count 469 H (150-450) k/uL Neutrophils # 12.7 H (1.3-7.7) k/uL Sodium (137-145) mmol/L Potassium (3.5-5.1) mmol/L BUN (7-17) mg/dL Creatinine (0.52-1.04) mg/dL Glucose (74-99) mg/dL POC Glucose (mg/dL) 190 H (75-99) mg/dL Albumin (3.5-5.0) g/dL Urine Appearance Turbid H (Clear) Urine Protein 1+ H (Negative) Urine Blood Trace H (Negative) Ur Leukocyte Esterase Large H (Negative) Urine RBC 11 H (0-5) /hpf Urine WBC >182 H (0-5) /hpf Urine WBC Clumps Many H (None) /hpf Ur Squamous Epith Cells 11 H (0-4) /hpf Urine Bacteria Many H (None) /hpf Hyaline Casts 50 H (0-2) /lpf Urine Mucus Few H (None) /hpf Urine Yeast (Budding) Many H (None) /hpf Stool Occult Blood (Negative) 02/11/21 02/11/21 Range/Units 06:06 07:16 WBC (3.8-10.6) k/uL RBC (3.80-5.40) m/uL Hgb (11.4-16.0) gm/dL Hct (34.0-46.0) % MCHC (31.0-37.0) g/dL Plt Count (150-450) k/uL Neutrophils # (1.3-7.7) k/uL Sodium 135 L (137-145) mmol/L Potassium (3.5-5.1) mmol/L BUN 40 H (7-17) mg/dL Creatinine 2.46 H (0.52-1.04) mg/dL Glucose 109 H (74-99) mg/dL POC Glucose (mg/dL) 119 H (75-99) mg/dL Albumin (3.5-5.0) g/dL Urine Appearance (Clear) Urine Protein (Negative) Urine Blood (Negative) Ur Leukocyte Esterase (Negative) Urine RBC (0-5) /hpf Urine WBC (0-5) /hpf Urine WBC Clumps (None) /hpf Ur Squamous Epith Cells (0-4) /hpf Urine Bacteria (None) /hpf Hyaline Casts (0-2) /lpf Urine Mucus (None) /hpf Urine Yeast (Budding) (None) /hpf Stool Occult Blood (Negative) Microbiology - Last 24 Hours (Table) 02/10/21 16:51 Urine Culture - Preliminary Urine,Clean Catch Diabetes panel 02/10/21 02/11/21 Range/Units 14:26 06:06 Sodium 133 L 135 L (137-145) mmol/L Potassium 5.4 H 3.7 (3.5-5.1) mmol/L Chloride 98 104 (98-107) mmol/L Carbon Dioxide 22 23 (22-30) mmol/L BUN 42 H 40 H (7-17) mg/dL Creatinine 2.51 H 2.46 H (0.52-1.04) mg/dL Glucose 191 H 109 H (74-99) mg/dL Calcium 9.6 9.0 (8.4-10.2) mg/dL AST 20 (14-36) U/L ALT 8 (4-34) U/L Alkaline Phosphatase 74 (38-126) U/L Total Protein 6.6 (6.3-8.2) g/dL Albumin 3.1 L (3.5-5.0) g/dL Calcium panel 02/10/21 02/11/21 Range/Units 14:26 06:06 Calcium 9.6 9.0 (8.4-10.2) mg/dL Albumin 3.1 L (3.5-5.0) g/dL Pituitary panel 02/10/21 02/11/21 Range/Units 14:26 06:06 Sodium 133 L 135 L (137-145) mmol/L Potassium 5.4 H 3.7 (3.5-5.1) mmol/L Chloride 98 104 (98-107) mmol/L Carbon Dioxide 22 23 (22-30) mmol/L BUN 42 H 40 H (7-17) mg/dL Creatinine 2.51 H 2.46 H (0.52-1.04) mg/dL Glucose 191 H 109 H (74-99) mg/dL Calcium 9.6 9.0 (8.4-10.2) mg/dL Adrenal panel 02/10/21 02/11/21 Range/Units 14:26 06:06 Sodium 133 L 135 L (137-145) mmol/L Potassium 5.4 H 3.7 (3.5-5.1) mmol/L Chloride 98 104 (98-107) mmol/L Carbon Dioxide 22 23 (22-30) mmol/L BUN 42 H 40 H (7-17) mg/dL Creatinine 2.51 H 2.46 H (0.52-1.04) mg/dL Glucose 191 H 109 H (74-99) mg/dL Calcium 9.6 9.0 (8.4-10.2) mg/dL Total Bilirubin 0.7 (0.2-1.3) mg/dL AST 20 (14-36) U/L ALT 8 (4-34) U/L Alkaline Phosphatase 74 (38-126) U/L Total Protein 6.6 (6.3-8.2) g/dL Albumin 3.1 L (3.5-5.0) g/dL <Conner Sharma - Last Filed: 02/11/21 12:05> History of Present Illness History of present illness: As above. Patient with abdominal pain and diarrhea. She has no pain currently. She has mild tenderness lower abdomen. CAT scan shows impressive inflammatory changes of the colon diffusely. No known history of colitis. Await stool studies. Continue antibiotics. Surgical - Exam Vital Signs Temp Pulse Resp BP Pulse Ox 98.9 F 97 18 94/46 96 02/10/21 13:30 02/10/21 13:30 02/10/21 13:30 02/10/21 13:30 02/10/21 13:30 Results - Labs 02/11/21 06:06 02/11/21 06:06 Abnormal Lab Results - Last 24 Hours (Table) 02/10/21 02/10/21 02/10/21 Range/Units 14:26 14:26 15:00 WBC 18.2 H (3.8-10.6) k/uL RBC (3.80-5.40) m/uL Hgb 10.0 L (11.4-16.0) gm/dL Hct 33.2 L (34.0-46.0) % MCHC 30.0 L (31.0-37.0) g/dL Plt Count 526 H (150-450) k/uL Neutrophils # 16.0 H (1.3-7.7) k/uL Sodium 133 L (137-145) mmol/L Potassium 5.4 H (3.5-5.1) mmol/L BUN 42 H (7-17) mg/dL Creatinine 2.51 H (0.52-1.04) mg/dL Glucose 191 H (74-99) mg/dL POC Glucose (mg/dL) (75-99) mg/dL Albumin 3.1 L (3.5-5.0) g/dL Urine Appearance (Clear) Urine Protein (Negative) Urine Blood (Negative) Ur Leukocyte Esterase (Negative) Urine RBC (0-5) /hpf Urine WBC (0-5) /hpf Urine WBC Clumps (None) /hpf Ur Squamous Epith Cells (0-4) /hpf Urine Bacteria (None) /hpf Hyaline Casts (0-2) /lpf Urine Mucus (None) /hpf Urine Yeast (Budding) (None) /hpf Stool Occult Blood Positive H (Negative) 02/10/21 02/10/21 02/11/21 Range/Units 16:51 20:31 06:06 WBC 14.8 H (3.8-10.6) k/uL RBC 3.48 L (3.80-5.40) m/uL Hgb 9.2 L (11.4-16.0) gm/dL Hct 29.3 L (34.0-46.0) % MCHC (31.0-37.0) g/dL Plt Count 469 H (150-450) k/uL Neutrophils # 12.7 H (1.3-7.7) k/uL Sodium (137-145) mmol/L Potassium (3.5-5.1) mmol/L BUN (7-17) mg/dL Creatinine (0.52-1.04) mg/dL Glucose (74-99) mg/dL POC Glucose (mg/dL) 190 H (75-99) mg/dL Albumin (3.5-5.0) g/dL Urine Appearance Turbid H (Clear) Urine Protein 1+ H (Negative) Urine Blood Trace H (Negative) Ur Leukocyte Esterase Large H (Negative) Urine RBC 11 H (0-5) /hpf Urine WBC >182 H (0-5) /hpf Urine WBC Clumps Many H (None) /hpf Ur Squamous Epith Cells 11 H (0-4) /hpf Urine Bacteria Many H (None) /hpf Hyaline Casts 50 H (0-2) /lpf Urine Mucus Few H (None) /hpf Urine Yeast (Budding) Many H (None) /hpf Stool Occult Blood (Negative) 02/11/21 02/11/21 Range/Units 06:06 07:16 WBC (3.8-10.6) k/uL RBC (3.80-5.40) m/uL Hgb (11.4-16.0) gm/dL Hct (34.0-46.0) % MCHC (31.0-37.0) g/dL Plt Count (150-450) k/uL Neutrophils # (1.3-7.7) k/uL Sodium 135 L (137-145) mmol/L Potassium (3.5-5.1) mmol/L BUN 40 H (7-17) mg/dL Creatinine 2.46 H (0.52-1.04) mg/dL Glucose 109 H (74-99) mg/dL POC Glucose (mg/dL) 119 H (75-99) mg/dL Albumin (3.5-5.0) g/dL Urine Appearance (Clear) Urine Protein (Negative) Urine Blood (Negative) Ur Leukocyte Esterase (Negative) Urine RBC (0-5) /hpf Urine WBC (0-5) /hpf Urine WBC Clumps (None) /hpf Ur Squamous Epith Cells (0-4) /hpf Urine Bacteria (None) /hpf Hyaline Casts (0-2) /lpf Urine Mucus (None) /hpf Urine Yeast (Budding) (None) /hpf Stool Occult Blood (Negative) Microbiology - Last 24 Hours (Table) 02/10/21 16:51 Urine Culture - Preliminary Urine,Clean Catch Diabetes panel 02/10/21 02/11/21 Range/Units 14:26 06:06 Sodium 133 L 135 L (137-145) mmol/L Potassium 5.4 H 3.7 (3.5-5.1) mmol/L Chloride 98 104 (98-107) mmol/L Carbon Dioxide 22 23 (22-30) mmol/L BUN 42 H 40 H (7-17) mg/dL Creatinine 2.51 H 2.46 H (0.52-1.04) mg/dL Glucose 191 H 109 H (74-99) mg/dL Calcium 9.6 9.0 (8.4-10.2) mg/dL AST 20 (14-36) U/L ALT 8 (4-34) U/L Alkaline Phosphatase 74 (38-126) U/L Total Protein 6.6 (6.3-8.2) g/dL Albumin 3.1 L (3.5-5.0) g/dL Calcium panel 02/10/21 02/11/21 Range/Units 14:26 06:06 Calcium 9.6 9.0 (8.4-10.2) mg/dL Albumin 3.1 L (3.5-5.0) g/dL Pituitary panel 02/10/21 02/11/21 Range/Units 14:26 06:06 Sodium 133 L 135 L (137-145) mmol/L Potassium 5.4 H 3.7 (3.5-5.1) mmol/L Chloride 98 104 (98-107) mmol/L Carbon Dioxide 22 23 (22-30) mmol/L BUN 42 H 40 H (7-17) mg/dL Creatinine 2.51 H 2.46 H (0.52-1.04) mg/dL Glucose 191 H 109 H (74-99) mg/dL Calcium 9.6 9.0 (8.4-10.2) mg/dL Adrenal panel 02/10/21 02/11/21 Range/Units 14:26 06:06 Sodium 133 L 135 L (137-145) mmol/L Potassium 5.4 H 3.7 (3.5-5.1) mmol/L Chloride 98 104 (98-107) mmol/L Carbon Dioxide 22 23 (22-30) mmol/L BUN 42 H 40 H (7-17) mg/dL Creatinine 2.51 H 2.46 H (0.52-1.04) mg/dL Glucose 191 H 109 H (74-99) mg/dL Calcium 9.6 9.0 (8.4-10.2) mg/dL Total Bilirubin 0.7 (0.2-1.3) mg/dL AST 20 (14-36) U/L ALT 8 (4-34) U/L Alkaline Phosphatase 74 (38-126) U/L Total Protein 6.6 (6.3-8.2) g/dL Albumin 3.1 L (3.5-5.0) g/dL
[2021-02-11 12:04] LABS: Glucose,Whole Blood 155 mg/dL (75-99)
--- NOTE | 2021-02-11 12:09 | P.NPCON ---
History of Present Illness - Reason for Consult acute renal failure, chronic renal failure - History of Present Illness Reason for admission: Acute kidney injury on chronic kidney disease History of present illness: Patient is a 75-year-old female seen in consultation for acute kidney injury and chronic kidney disease. Patient has chronic kidney disease stage III is a baseline creatinine in the range of 1.1-1.3 secondary to diabetic kidney disease. Patient is a poor sodium and doesn't speak much [place]. Patient presented to the hospital on 02/10/2021 with abdominal pain. CAT scan revealed findings of colitis. No hydronephrosis was noted. She's currently receiving LR at 75 mL an hour. Patient does have history of CHF ejection fraction of 45-50%. She has long-standing history of diabetes. Blood pressure is in the systolic 90s to low 100s. No edema. She has been voiding and is incontinent. Patient was having loose stools and was sent to the hospital by her home care nurse. She tested negative for coronavirus as well as C. diff. Vital signs are stable. General: The patient appeared well nourished and normally developed. HEENT: Head exam is unremarkable. LUNGS: Breath sounds decreased. HEART: Rate and Rhythm are regular. ABDOMEN: Soft, no distention. EXTREMITITES: No edema. Past Medical History Past Medical History: Coronary Artery Disease (CAD), Diabetes Mellitus, Hyperlipidemia, Hypertension Additional Past Medical History / Comment(s): mild, wound care center for left. left broken ankle. History of Any Multi-Drug Resistant Organisms: None Reported Past Surgical History: Cholecystectomy, Heart Catheterization With Stent, Orthopedic Surgery Additional Past Surgical History / Comment(s): hip surgery, cataract sx, left ankle surgery 2020 Past Anesthesia/Blood Transfusion Reactions: No Reported Reaction Date of Last Stent Placement:: 2000 Past Psychological History: No Psychological Hx Reported Smoking Status: Never smoker Past Alcohol Use History: None Reported Past Drug Use History: None Reported Medications and Allergies Home Medications Medication Instructions Recorded Confirmed Type Donepezil [Aricept] 5 mg PO HS 09/14/20 02/10/21 History Latanoprost/Pf [Latanoprost 0.005% 1 drop BOTH EYES HS 09/14/20 02/10/21 History Eye Drop] Sodium Bicarbonate Tab 650 mg PO TID #90 tab 11/20/20 02/10/21 Rx Cholecalciferol (Vitamin D3) 125 mcg PO DAILY 12/25/20 02/10/21 History [Vitamin D3 (125 MCG = 5,000 IU)] Iron Polysaccharide Complex 150 mg PO DAILY 12/25/20 02/10/21 History [Ferrex 150] Metoprolol Succinate (ER) [Toprol 100 mg PO DAILY 12/25/20 02/10/21 History XL] OLANZapine [ZyPREXA] 2.5 mg PO HS 12/25/20 02/10/21 History Pantoprazole Sodium [Protonix] 40 mg PO DAILY 12/25/20 02/10/21 History Simvastatin [Zocor] 20 mg PO HS 12/25/20 02/10/21 History amLODIPine [Norvasc] 5 mg PO DAILY 12/25/20 02/10/21 History Collagenase [Santyl Ointment] 1 applic TOPICAL HS 02/10/21 02/10/21 History Ondansetron Odt [Zofran Odt] 4 mg PO BID PRN 02/10/21 02/10/21 History glipiZIDE [Glucotrol] 2.5 mg PO AC-BID 02/10/21 02/10/21 History Allergies Allergy/AdvReac Type Severity Reaction Status Date / Time No Known Allergies Allergy Verified 02/10/21 20:53 Physical Exam Vitals: Vital Signs Temp Pulse Pulse Pulse Resp BP BP 02/11/21 08:00 99.8 F H 95 16 103/56 02/11/21 02:00 98.8 F 106 H 16 104/65 02/10/21 20:25 98.0 F 98 20 100/63 02/10/21 20:00 98.9 F 99 20 101/58 02/10/21 18:20 98.9 F 100 20 95/61 02/10/21 17:30 98 20 106/78 02/10/21 16:30 98.0 F 105 H 20 100/50 02/10/21 13:30 98.9 F 97 18 94/46 Pulse Ox 02/11/21 08:00 97 02/11/21 02:00 96 02/10/21 20:25 96 02/10/21 20:00 95 02/10/21 18:20 96 02/10/21 17:30 97 02/10/21 16:30 96 02/10/21 13:30 96 Intake and Output 02/10/21 02/11/21 02/11/21 22:59 06:59 14:59 Intake Total 400 Balance 400 Intake: Intake, IV Titration 400 Amount Piperacillin-Tazobactam 3 100 .375 gm In Sodium Chloride 0.9% 100 ml @ 25 mls/hr IVPB Q8H [facility] Rx#: [id number] Sodium Chloride 0.9% 1, 300 000 ml @ 130 mls/hr IV . Q7H42M [facility] Rx#:[id number] Other: Voiding Method Diaper Incontinent # Voids 1 Weight 56.699 kg Results - Lab Results Most recent lab results Calcium 9.0 mg/dL (8.4-10.2) 02/11/21 06:06 Magnesium 1.7 mg/dL (1.6-2.3) 02/11/21 06:06 02/11/21 06:06 02/11/21 06:06 Assessment and Plan Plan: Assessment: 1. Acute kidney injury secondary to ATN secondary to hypovolemia. Creatinine was 2.51 on admission and is 2.46 today. No hydronephrosis noted on CAT scan. 2. Chronic kidney disease stage IIIa with baseline creatinine in the range of 1.1-1.3 secondary to diabetic kidney disease. 3. Colitis maintained on antibiotics. Surgery following. 4. Anemia of chronic kidney disease. 5. Diabetes. 6. Chronic systolic CHF with ejection fraction of 45-50%. 7. UTI on antibiotics. Plan: Decreased rate of LR to 50 mL an hour. Encourage oral intake. Avoid nephrotoxins. Follow-up cultures. Add Aranesp. Repeat labs in the morning. Continue to hold amlodipine. Thank you for the consultation. I will continue to follow the patient with you during her hospital stay.
[2021-02-11] MEDS: metroNIDAZOLE-NS PMX 500 MG in SALINE 1 100ML.BAG IVPB SCH ×2 (15:55→23:00)
[2021-02-11] MEDS: VANCOMYCIN ORAL SOLUTION 250 MG/5 ML BOTTLE PO SCH ×3 (15:55→20:33)
[2021-02-11 16:42] LABS: Glucose,Whole Blood 168 mg/dL (75-99)
[2021-02-11] MEDS: DARBEPOETIN ALFA 40 MCG/0.4 ML SYRINGE SQ SCH (17:05)
[2021-02-11 20:09] LABS: Glucose,Whole Blood 88 mg/dL (75-99)
[2021-02-11] MEDS: ATORVASTATIN 10 MG TAB PO SCH (20:33)
[2021-02-11] MEDS ORDERED: PIPERACILLIN-TAZOBACTAM 3.375 GM in SODIUM CHLORIDE 0.9% 100 ML IVPB SCH (21:00)
[2021-02-12] MEDS: SODIUM CHLORIDE 0.9% 1,000 ML IV SCH (02:30)
[2021-02-12] MEDS: LACTATED RINGERS 1,000 ML IV SCH ×2 (05:04→22:51)
[2021-02-12 06:41] LABS: Calcium 8.8 mg/dL (8.4-10.2)
[2021-02-12 06:48] LABS: Magnesium 1.6 mg/dL (1.6-2.3); Potassium 3.7 mmol/L (3.5-5.1)
--- NOTE | 2021-02-12 06:55 | XR ---
EXAMINATION TYPE: XR chest 1V DATE OF EXAM: 02/12/2021 HISTORY: Shortness of breath. COMPARISON: 12/02/2020 TECHNIQUE: Single view of the chest is submitted. FINDINGS: Demonstrated are scattered senescent parenchymal change. Increased density left lower lobe may reflect atelectasis, infiltrate and/or effusion. Increased dens ity right medial lung base as well. The heart is stable. Hilar and mediastinal structures are within normal limits. Degenerative changes are seen of the dorsal spine. IMPRESSION: 1. Increased density left lower lobe may reflect atelectasis, infiltrate and/or effusion. Increased density right medial lung base as well.
[2021-02-12 07:11] LABS: Glucose,Whole Blood 134 mg/dL (75-99)
[2021-02-12] MEDS: PANTOPRAZOLE 40 MG TABLET PO SCH (08:11)
[2021-02-12] MEDS: metroNIDAZOLE-NS PMX 500 MG in SALINE 1 100ML.BAG IVPB SCH ×3 (08:11→22:47)
[2021-02-12] MEDS: METOPROLOL SUCCINATE (ER) 50 MG TAB.ER.24H PO SCH (08:11)
[2021-02-12] MEDS: INSULIN ASPART (NovoLOG) 100 UNIT/ML VIAL SQ SCH ×4 (08:11→22:48)
[2021-02-12] MEDS: SODIUM BICARBONATE TAB 650 MG TAB PO SCH ×3 (08:11→22:49)
[2021-02-12] MEDS: VANCOMYCIN ORAL SOLUTION 250 MG/5 ML BOTTLE PO SCH ×4 (08:12→22:51)
[2021-02-12] MEDS ORDERED: SODIUM BICARB 8.4% 50 ML SYR (1 MEQ/ML) IV STA (08:20)
[2021-02-12] MEDS ORDERED: POTASSIUM CHLORIDE ER 20 MEQ TAB.ER PO STA (09:18)
--- NOTE | 2021-02-12 09:19 | P.PN ---
Subjective Patient is seen in follow-up for acute kidney injury on chronic kidney disease. Renal function stable. Patient is incontinent. Not a reliable historian. Oral intake poor. No significant diarrhea per the nurse. Vital signs are stable. HEENT: Head exam is unremarkable. LUNGS: Breath sounds decreased. HEART: Rate and Rhythm are regular. ABDOMEN: Soft, no distention. EXTREMITITES: No edema. Objective - Vital Signs Vital signs: Vital Signs Temp 98.3 F 02/12/21 07:00 Pulse 102 H 02/12/21 07:00 Resp 16 02/12/21 07:00 BP 92/57 02/12/21 07:00 Pulse Ox 97 02/12/21 07:00 Intake & Output 02/11/21 02/12/21 02/12/21 18:59 06:59 18:59 Intake Total 400 Balance 400 Intake: Intake, IV Titration 400 Amount Lactated Ringers 1,000 ml 400 @ 50 mls/hr IV .Q20H [facility] Rx#:[id number] Other: Voiding Method Diaper Diaper Incontinent Incontinent # Voids 1 # Bowel Movements 1 2 - Labs CBC & Chem 7: 02/11/21 06:06 02/12/21 05:23 Labs: Abnormal Lab Results - Last 24 Hours (Table) 02/11/21 02/11/21 02/12/21 Range/Units 12:02 16:40 05:23 Sodium 133 L (137-145) mmol/L Carbon Dioxide 19 L (22-30) mmol/L BUN 43 H (7-17) mg/dL Creatinine 2.41 H (0.52-1.04) mg/dL Glucose 114 H (74-99) mg/dL POC Glucose (mg/dL) 155 H 168 H (75-99) mg/dL 02/12/21 Range/Units 07:09 Sodium (137-145) mmol/L Carbon Dioxide (22-30) mmol/L BUN (7-17) mg/dL Creatinine (0.52-1.04) mg/dL Glucose (74-99) mg/dL POC Glucose (mg/dL) 134 H (75-99) mg/dL Microbiology - Last 24 Hours (Table) 02/11/21 16:57 Stool Culture - Preliminary Stool 02/10/21 16:51 Urine Culture - Preliminary Urine,Clean Catch Gram Neg Bacilli 02/10/21 17:08 Blood Culture - Preliminary Blood No Growth after 24 hours 02/10/21 17:08 Blood Culture - Preliminary Blood No Growth after 24 hours Assessment and Plan Plan: Assessment: 1. Acute kidney injury secondary to ATN secondary to hypovolemia. Creatinine was 2.51 on admission and is stable at 2.41 today. No hydronephrosis noted on CAT scan. 2. Chronic kidney disease stage IIIa with baseline creatinine in the range of 1.1-1.3 secondary to diabetic kidney disease. 3. Colitis maintained on antibiotics. Surgery following. 4. Anemia of chronic kidney disease. On Aranesp. 5. Diabetes. 6. Chronic systolic CHF with ejection fraction of 45-50%. 7. UTI on antibiotics. Urine culture positive for gram-negative bacilli. 8. Hypokalemia from poor intake. 9. Hypomagnesemia from poor intake and she has losses. 10. Metabolic acidosis secondary to acute kidney injury and she has losses. Maintain on oral bicarbonate. Plan: Maintain LR at 50 mL an hour. Encourage oral intake. Avoid nephrotoxins. Follow-up cultures. Repeat labs in the morning. Continue to hold amlodipine. Replace potassium and magnesium.
--- NOTE | 2021-02-12 09:46 | P.PN ---
Subjective Principal diagnosis: Colitis, diarrhea Chart was reviewed. Patient was seen and examined. Patient is 75-year-old female with history of dementia, bipolar disorder, chronic kidney disease who presented to the hospital for evaluation of diarrhea. Patient is a poor historian. History is obtained from her daughter over the phone. Patient appears comfortable. She denies any abdominal pain nausea or vomiting. Objective - Vital Signs Vital signs: Vital Signs Temp 98.3 F 02/12/21 07:00 Pulse 102 H 02/12/21 07:00 Resp 16 02/12/21 07:00 BP 92/57 02/12/21 07:00 Pulse Ox 97 02/12/21 07:00 Intake & Output 02/11/21 02/12/21 02/12/21 18:59 06:59 18:59 Intake Total 400 Balance 400 Intake: Intake, IV Titration 400 Amount Lactated Ringers 1,000 ml 400 @ 50 mls/hr IV .Q20H [facility] Rx#:[id number] Other: Voiding Method Diaper Diaper Incontinent Incontinent # Voids 1 # Bowel Movements 1 2 - Exam Patient is awake and alert in no apparent distress Head and neck: Anicteric sclera oropharyngeal mucosa is dry without any lesions no neck masses or JVD Lungs: Clear to auscultation Cardiovascular regular rhythm and rate Abdomen: Bowel sounds are present throughout, abdomen is soft nondistended no any point of tenderness nor organomegaly no flank pain Extremities: Trace peripheral edema warm and well-perfused Neurological follicle months no focal deficits no asterixis - Labs CBC & Chem 7: 02/11/21 06:06 02/12/21 05:23 Labs: Abnormal Lab Results - Last 24 Hours (Table) 02/11/21 02/11/21 02/12/21 Range/Units 12:02 16:40 05:23 Sodium 133 L (137-145) mmol/L Carbon Dioxide 19 L (22-30) mmol/L BUN 43 H (7-17) mg/dL Creatinine 2.41 H (0.52-1.04) mg/dL Glucose 114 H (74-99) mg/dL POC Glucose (mg/dL) 155 H 168 H (75-99) mg/dL 02/12/21 Range/Units 07:09 Sodium (137-145) mmol/L Carbon Dioxide (22-30) mmol/L BUN (7-17) mg/dL Creatinine (0.52-1.04) mg/dL Glucose (74-99) mg/dL POC Glucose (mg/dL) 134 H (75-99) mg/dL Microbiology - Last 24 Hours (Table) 02/11/21 16:57 Stool Culture - Preliminary Stool 02/10/21 16:51 Urine Culture - Preliminary Urine,Clean Catch Gram Neg Bacilli 02/10/21 17:08 Blood Culture - Preliminary Blood No Growth after 24 hours 02/10/21 17:08 Blood Culture - Preliminary Blood No Growth after 24 hours Assessment and Plan Plan: #Acute colitis With nonbloody diarrhea and leukocytosis Patient is afebrile Infectious etiology workup underway, infectious versus inflammatory bowel disease Obtain C. diff panel, stool cultures, stool WBCs Ordered empirical treatment with ceftriaxone, Flagyl IV and oral vancomycin Check ESR and CRP, lactic acid Gen. surgery following if infectious workup comes back negative and no much clinical improvement she m ay need endoscopy with potential biopsy Hold donepezil Hold home iron #Acute on chronic kidney injury CKD stage III Diabetic nephropathy Nephrology consultation Continue IV fluids, changed to LR Bladder scan Continue home sodium bicarbonate #SIRS r/o sepsis septic work up #Type 2 diabetes mellitus without long-term current use of insulin Restart diabetic diet this tolerated Sliding scale Blood glucose monitoring #Dementia and bipolar disorder Continue Zyprexa Hold Aricept in view of diarrhea #Peptic ulcer disease EGD proven 11/2020 Continue PPI #Hypertension Blood pressure is on the softer side Hold home amlodipine Decrease home Toprol, would prefer not to discontinue completely #Diabetic neuropathy with chronic peripheral wound Wound care consultation pt is a full code spoke with her daughter and updated her plan of care Patient will need formal admission for hydration work up septic workup, she will need more than 2 nights hospital stay
[2021-02-12] MEDS: MAGNESIUM SULFATE-D5W PMX 1 GM in DEXTROSE/WATER 1 100ML.BAG IVPB SCH ×2 (09:54→11:33)
--- NOTE | 2021-02-12 10:49 | P.CONS ---
History of Present Illness - Reason for Consult Consult date: 02/12/21 wound care - History of Present Illness This is a 75-year-old female who is known to the wound care center with a nonhealing ulceration to the left posterior calcaneus. Patient previously had a orthopedic intervention resulting and hardware being placed. One screw was removed because of a surgical wound dehiscence. At this time patient has been utilizing Santyl to the site. Original cause of wound was Not Known. The wound is currently classified as a Partial Thickness wound with etiology of Open Surgical Wound and is located on the Left,Posterior Calcaneus. The wound measures 2cm length x 1.1cm width x 0.3cm depth; 1.728cm^2 area and 0.518cm^3 volume. There is no tunneling or undermining noted. There is a small amount of serous drainage noted. The wound margin is distinct with the outline attached to the wound base. There is no granulation within the wound bed. There is a large (67-100%) amount of necrotic tissue within the wound bed including Adherent Slough. The periwound skin appearance exhibited: Maceration, Erythema. The periwound skin appearance did not exhibit: Callus, Crepitus, Excoriation, Induration, Rash, Scarring, Dry/Scaly, Atrophie Huetter, Cyanosis, Ecchymosis, Hemosiderin Staining, Mottled, Pallor, Rubor. The surrounding wound skin color is noted with erythema which is circumferential. Periwound temperature was noted as No Abnormality. Review Of Systems: Constitutional: No fever, no chills, no night sweats. No weight change. No weakness, fatigue or lethargy. No daytime sleepiness. Integumentary:reports wounds, no lesions. No rash or pruritus. No unusual bruising. No change in hair or nails. Physical exam: General Appearance: Alert, cooperative, no distress, appears stated age. Skin: See HPI all other Skin color, texture, tugor normal, no rashes or lesions. Neurologic: Alert oriented x3 Assessment: 1. Pressure ulcer of left heel stage II 2. Type 2 diabetes with foot ulcer Plan: 1. Apply Santyl, saline moistened gauze, dry gauze, rolled gauze and secure with paper tape. Change daily. Utilize foam heel protectors. Patient will return to the wound care center February 19 at 2:30. Thank you for the consultation any questions please contact the wound care center DNP note has been reviewed and discussed with Dr. Kim and the impression and plan of care has been directed as dictated. Past Medical History Past Medical History: Coronary Artery Disease (CAD), Diabetes Mellitus, Hyperlipidemia, Hypertension Additional Past Medical History / Comment(s): mild, wound care center for left. left broken ankle. History of Any Multi-Drug Resistant Organisms: None Reported Past Surgical History: Cholecystectomy, Heart Catheterization With Stent, Orthopedic Surgery Additional Past Surgical History / Comment(s): hip surgery, cataract sx, left ankle surgery 2020 Past Anesthesia/Blood Transfusion Reactions: No Reported Reaction Date of Last Stent Placement:: 2000 Past Psychological History: No Psychological Hx Reported Smoking Status: Never smoker Past Alcohol Use History: None Reported Past Drug Use History: None Reported Medications and Allergies Home Medications Medication Instructions Recorded Confirmed Type Donepezil [Aricept] 5 mg PO HS 09/14/20 02/10/21 History Latanoprost/Pf [Latanoprost 0.005% 1 drop BOTH EYES HS 09/14/20 02/10/21 History Eye Drop] Sodium Bicarbonate Tab 650 mg PO TID #90 tab 11/20/20 02/10/21 Rx Cholecalciferol (Vitamin D3) 125 mcg PO DAILY 12/25/20 02/10/21 History [Vitamin D3 (125 MCG = 5,000 IU)] Iron Polysaccharide Complex 150 mg PO DAILY 12/25/20 02/10/21 History [Ferrex 150] Metoprolol Succinate (ER) [Toprol 100 mg PO DAILY 12/25/20 02/10/21 History XL] OLANZapine [ZyPREXA] 2.5 mg PO HS 12/25/20 02/10/21 History Pantoprazole Sodium [Protonix] 40 mg PO DAILY 12/25/20 02/10/21 History Simvastatin [Zocor] 20 mg PO HS 12/25/20 02/10/21 History amLODIPine [Norvasc] 5 mg PO DAILY 12/25/20 02/10/21 History Collagenase [Santyl Ointment] 1 applic TOPICAL HS 02/10/21 02/10/21 History Ondansetron Odt [Zofran Odt] 4 mg PO BID PRN 02/10/21 02/10/21 History glipiZIDE [Glucotrol] 2.5 mg PO AC-BID 02/10/21 02/10/21 History Allergies Allergy/AdvReac Type Severity Reaction Status Date / Time No Known Allergies Allergy Verified 02/10/21 20:53 Physical Exam Vitals: Vital Signs Temp Pulse Pulse Resp BP Pulse Ox 02/12/21 07:00 98.3 F 102 H 16 92/57 97 02/12/21 02:00 98.2 F 104 H 18 106/65 97 02/11/21 20:00 98.5 F 106 H 77 16 138/76 94 L Intake and Output 02/11/21 02/12/21 02/12/21 22:59 06:59 14:59 Intake Total 400 Balance 400 Intake: Intake, IV Titration 400 Amount Lactated Ringers 1,000 ml 400 @ 50 mls/hr IV .Q20H [facility] Rx#:[id number] Other: Voiding Method Diaper Diaper Incontinent Incontinent # Voids 1 # Bowel Movements 1 2 1 Results CBC & Chem 7: 02/11/21 06:06 02/12/21 05:23 Labs: Abnormal Lab Results - Last 24 Hours (Table) 02/11/21 02/11/21 02/12/21 Range/Units 12:02 16:40 05:23 Sodium 133 L (137-145) mmol/L Carbon Dioxide 19 L (22-30) mmol/L BUN 43 H (7-17) mg/dL Creatinine 2.41 H (0.52-1.04) mg/dL Glucose 114 H (74-99) mg/dL POC Glucose (mg/dL) 155 H 168 H (75-99) mg/dL 02/12/21 Range/Units 07:09 Sodium (137-145) mmol/L Carbon Dioxide (22-30) mmol/L BUN (7-17) mg/dL Creatinine (0.52-1.04) mg/dL Glucose (74-99) mg/dL POC Glucose (mg/dL) 134 H (75-99) mg/dL Microbiology - Last 24 Hours (Table) 02/11/21 16:57 Stool Culture - Preliminary Stool 02/10/21 16:51 Urine Culture - Preliminary Urine,Clean Catch Gram Neg Bacilli 02/10/21 17:08 Blood Culture - Preliminary Blood No Growth after 24 hours 02/10/21 17:08 Blood Culture - Preliminary Blood No Growth after 24 hours Assessment and Plan (1) Pressure ulcer of left heel, stage 2 Current Visit: Yes Status: Acute Code(s): L89.622 - PRESSURE ULCER OF LEFT HEEL, STAGE 2 SNOMED Code(s): 416865017 (2) Diabetic foot ulcer Current Visit: No Status: Acute Code(s): E11.621 - TYPE 2 DIABETES MELLITUS WITH FOOT ULCER; L97.509 - NON-PRESSURE CHRONIC ULCER OTH PRT UNSP FOOT W UNSP SEVERITY SNOMED Code(s): 501942351
[2021-02-12 10:58] LABS: Glucose,Whole Blood 109 mg/dL (75-99)
--- NOTE | 2021-02-12 11:43 | P.PN ---
<AbigailTri cummins - Last Filed: 02/12/21 11:34> Subjective Progress Note Date: 02/12/21 CHIEF COMPLAINT: Abdominal pain and diarrhea HISTORY OF PRESENT ILLNESS: Surgical service is following regards to patient's colitis. She had a formed soft brown mucousy stool today. Diarrhea has resolved. She has had no nausea or vomiting. Patient has not required any pain medication. Denies any abdominal pain. She is only eating a few sips of clear liquids. She is on IV antibiotics. Stool studies are pending. Afebrile. Mild tachycardia heart rate of 102. BP 92/57. CBC pending for today sodium 133 potassium 3.7 creatinine 2.41 and magnesium 1.6 C. diff negative. PHYSICAL EXAM: VITAL SIGNS: Reviewed. GENERAL: Well-developed in no acute distress. HEENT: No sclera icterus. Extraocular movements grossly intact. Moist buccal mucosa. Head is atraumatic, normocephalic. ABDOMEN: Soft. Nondistended. Minimal tenderness with palpation of the lower abdomen NEUROLOGIC: Alert and oriented. Cranial nerves II through XII grossly intact. ASSESSMENT: 1. Abdominal pain with diarrhea and black stools 2. Colitis and concerns for ulcerative colitis noted on computed tomography scan PLAN: -Awaiting stool study results -Continue IV antibiotics -Continue IV fluids -Continue clear liquid diet -Continue supportive care -Magnesium and potassium being replaced by nephrology Physician Fur Dressing Supervisor note has been reviewed by physician. Signing provider agrees with the documented findings, assessment, and plan of care. Objective - Vital Signs Vital signs: Vital Signs Temp 98.3 F 02/12/21 07:00 Pulse 102 H 02/12/21 07:00 Resp 16 02/12/21 07:00 BP 92/57 02/12/21 07:00 Pulse Ox 97 02/12/21 07:00 Intake & Output 02/11/21 02/12/21 02/12/21 18:59 06:59 18:59 Intake Total 400 Balance 400 Intake: Intake, IV Titration 400 Amount Lactated Ringers 1,000 ml 400 @ 50 mls/hr IV .Q20H [facility] Rx#:[id number] Other: Voiding Method Diaper Diaper Diaper Incontinent Incontinent Incontinent # Voids 1 1 # Bowel Movements 1 2 1 - Labs CBC & Chem 7: 02/11/21 06:06 02/12/21 05:23 Labs: Abnormal Lab Results - Last 24 Hours (Table) 02/11/21 02/11/21 02/12/21 Range/Units 12:02 16:40 05:23 Sodium 133 L (137-145) mmol/L Carbon Dioxide 19 L (22-30) mmol/L BUN 43 H (7-17) mg/dL Creatinine 2.41 H (0.52-1.04) mg/dL Glucose 114 H (74-99) mg/dL POC Glucose (mg/dL) 155 H 168 H (75-99) mg/dL 02/12/21 02/12/21 Range/Units 07:09 10:57 Sodium (137-145) mmol/L Carbon Dioxide (22-30) mmol/L BUN (7-17) mg/dL Creatinine (0.52-1.04) mg/dL Glucose (74-99) mg/dL POC Glucose (mg/dL) 134 H 109 H (75-99) mg/dL Microbiology - Last 24 Hours (Table) 02/11/21 16:57 Stool Culture - Preliminary Stool 02/10/21 16:51 Urine Culture - Preliminary Urine,Clean Catch Gram Neg Bacilli 02/10/21 17:08 Blood Culture - Preliminary Blood No Growth after 24 hours 02/10/21 17:08 Blood Culture - Preliminary Blood No Growth after 24 hours <Conner Sharma - Last Filed: 02/12/21 16:37> Subjective As above. Patient appears comfortable. Denies pain. Abdomen minimal lower abdominal tenderness. Patient stools seem improved as well. Await stool culture. Continue antibiotics. Objective - Vital Signs Vital signs: Vital Signs Temp 97.7 F 02/12/21 13:42 Pulse 87 02/12/21 13:42 Resp 18 02/12/21 13:42 BP 93/60 02/12/21 13:42 Pulse Ox 99 02/12/21 13:42 Intake & Output 02/11/21 02/12/21 02/12/21 18:59 06:59 18:59 Intake Total 400 Balance 400 Intake: Intake, IV Titration 400 Amount Lactated Ringers 1,000 ml 400 @ 50 mls/hr IV .Q20H [facility] Rx#:[id number] Other: Voiding Method Diaper Diaper Diaper Incontinent Incontinent Incontinent # Voids 1 1 # Bowel Movements 1 2 1 - Labs CBC & Chem 7: 02/11/21 06:06 02/12/21 05:23 Labs: Abnormal Lab Results - Last 24 Hours (Table) 02/11/21 02/11/21 02/12/21 Range/Units 16:40 16:57 05:23 Sodium 133 L (137-145) mmol/L Carbon Dioxide 19 L (22-30) mmol/L BUN 43 H (7-17) mg/dL Creatinine 2.41 H (0.52-1.04) mg/dL Glucose 114 H (74-99) mg/dL POC Glucose (mg/dL) 168 H (75-99) mg/dL Stool Lactoferrin POSITIVE A (NEGATIVE) 02/12/21 02/12/21 Range/Units 07:09 10:57 Sodium (137-145) mmol/L Carbon Dioxide (22-30) mmol/L BUN (7-17) mg/dL Creatinine (0.52-1.04) mg/dL Glucose (74-99) mg/dL POC Glucose (mg/dL) 134 H 109 H (75-99) mg/dL Stool Lactoferrin (NEGATIVE) Microbiology - Last 24 Hours (Table) 02/11/21 16:57 Stool Culture - Preliminary Stool 02/10/21 16:51 Urine Culture - Preliminary Urine,Clean Catch Gram Neg Bacilli 02/10/21 17:08 Blood Culture - Preliminary Blood No Growth after 24 hours 02/10/21 17:08 Blood Culture - Preliminary Blood No Growth after 24 hours
[2021-02-12 16:47] LABS: Glucose,Whole Blood 202 mg/dL (75-99)
[2021-02-12 20:36] LABS: Glucose,Whole Blood 100 mg/dL (75-99)
[2021-02-12] MEDS: ATORVASTATIN 10 MG TAB PO SCH (22:47)
[2021-02-12] MEDS: OLANZapine 2.5 MG TAB PO SCH (22:48)
[2021-02-12] MEDS: COLLAGENASE 250 UNIT/GM OINTMENT 30 GM TUBE TOPICAL SCH (22:49)
[2021-02-13 04:54] LABS: HCT 32.3 % (34.0-46.0); Hypochromasia Marked; MCH 25.9 pg (25.0-35.0); MCHC 30.9 g/dL (31.0-37.0); MCV 83.8 fL (80.0-100.0); Platelet Count 500 k/uL (150-450); RBC 3.86 m/uL (3.80-5.40); RDW 14.6 % (11.5-15.5)
[2021-02-13 05:08] LABS: ALT <6 U/L (4-34); AST 10 U/L (14-36); African American GFR (CKD) 26 (>60 ml/min/1.73 sqM); Albumin 1.9 g/dL (3.5-5.0); Alkaline Phosphatase 57 U/L (38-126); Anion Gap 7 mmol/L; Blood Urea Nitrogen 38 mg/dL (7-17); Calcium 8.6 mg/dL (8.4-10.2); Carbon Dioxide 27 mmol/L (22-30); Chloride 101 mmol/L (98-107); Glucose 152 mg/dL (74-99); Magnesium 2.2 mg/dL (1.6-2.3); Non-African American GFR(CKD) 23 (>60 ml/min/1.73 sqM); Potassium 3.2 mmol/L (3.5-5.1); Sodium 135 mmol/L (137-145); Total Bilirubin <0.1 mg/dL (0.2-1.3); Total Protein 4.4 g/dL (6.3-8.2)
[2021-02-13] MEDS ORDERED: POTASSIUM CHLORIDE ER 20 MEQ TAB.ER PO STA (06:43)
[2021-02-13 07:21] LABS: Glucose,Whole Blood 165 mg/dL (75-99)
[2021-02-13] MEDS: COLLAGENASE 250 UNIT/GM OINTMENT 30 GM TUBE TOPICAL SCH ×3 (08:25→21:42)
[2021-02-13] MEDS: metroNIDAZOLE-NS PMX 500 MG in SALINE 1 100ML.BAG IVPB SCH ×2 (08:26→15:34)
[2021-02-13] MEDS: METOPROLOL SUCCINATE (ER) 50 MG TAB.ER.24H PO SCH (08:26)
[2021-02-13] MEDS: INSULIN ASPART (NovoLOG) 100 UNIT/ML VIAL SQ SCH ×4 (08:26→22:09)
[2021-02-13] MEDS: PANTOPRAZOLE 40 MG TABLET PO SCH (08:26)
[2021-02-13] MEDS: SODIUM BICARBONATE TAB 650 MG TAB PO SCH (08:27)
[2021-02-13] MEDS: VANCOMYCIN ORAL SOLUTION 250 MG/5 ML BOTTLE PO SCH ×4 (08:27→22:34)
--- NOTE | 2021-02-13 09:07 | P.PN ---
Subjective Patient is seen in follow-up for acute kidney injury on chronic kidney disease. Renal function better. Patient is incontinent. Not a reliable historian. Oral intake poor. No changes overnight. Vital signs are stable. HEENT: Head exam is unremarkable. LUNGS: Breath sounds decreased. HEART: Rate and Rhythm are regular. ABDOMEN: Soft, no distention. EXTREMITITES: No edema. Objective - Vital Signs Vital signs: Vital Signs Temp 98.3 F 02/13/21 07:43 Pulse 106 H 02/13/21 07:43 Resp 14 02/13/21 07:43 BP 120/63 02/13/21 07:43 Pulse Ox 98 02/13/21 07:43 Intake & Output 02/12/21 02/13/21 02/13/21 18:59 06:59 18:59 Intake Total 400 Balance 400 Intake: Intake, IV Titration 400 Amount Lactated Ringers 1,000 ml 400 @ 50 mls/hr IV .Q20H [facility] Rx#:[id number] Other: Voiding Method Diaper Diaper Incontinent Incontinent # Voids 1 # Bowel Movements 2 - Labs CBC & Chem 7: 02/13/21 04:17 02/13/21 04:17 Labs: Abnormal Lab Results - Last 24 Hours (Table) 02/11/21 02/12/21 02/12/21 Range/Units 16:57 10:57 16:44 Hgb (11.4-16.0) gm/dL Hct (34.0-46.0) % MCHC (31.0-37.0) g/dL Plt Count (150-450) k/uL Sodium (137-145) mmol/L Potassium (3.5-5.1) mmol/L BUN (7-17) mg/dL Creatinine (0.52-1.04) mg/dL Glucose (74-99) mg/dL POC Glucose (mg/dL) 109 H 202 H (75-99) mg/dL Total Bilirubin (0.2-1.3) mg/dL AST (14-36) U/L Total Protein (6.3-8.2) g/dL Albumin (3.5-5.0) g/dL Stool Lactoferrin POSITIVE A (NEGATIVE) 02/12/21 02/13/21 02/13/21 Range/Units 20:35 04:17 04:17 Hgb 10.0 L (11.4-16.0) gm/dL Hct 32.3 L (34.0-46.0) % MCHC 30.9 L (31.0-37.0) g/dL Plt Count 500 H (150-450) k/uL Sodium 135 L (137-145) mmol/L Potassium 3.2 L (3.5-5.1) mmol/L BUN 38 H (7-17) mg/dL Creatinine 2.11 H (0.52-1.04) mg/dL Glucose 152 H (74-99) mg/dL POC Glucose (mg/dL) 100 H (75-99) mg/dL Total Bilirubin <0.1 L (0.2-1.3) mg/dL AST 10 L (14-36) U/L Total Protein 4.4 L (6.3-8.2) g/dL Albumin 1.9 L (3.5-5.0) g/dL Stool Lactoferrin (NEGATIVE) 02/13/21 Range/Units 07:18 Hgb (11.4-16.0) gm/dL Hct (34.0-46.0) % MCHC (31.0-37.0) g/dL Plt Count (150-450) k/uL Sodium (137-145) mmol/L Potassium (3.5-5.1) mmol/L BUN (7-17) mg/dL Creatinine (0.52-1.04) mg/dL Glucose (74-99) mg/dL POC Glucose (mg/dL) 165 H (75-99) mg/dL Total Bilirubin (0.2-1.3) mg/dL AST (14-36) U/L Total Protein (6.3-8.2) g/dL Albumin (3.5-5.0) g/dL Stool Lactoferrin (NEGATIVE) Microbiology - Last 24 Hours (Table) 02/10/21 17:08 Blood Culture - Preliminary Blood No Growth after 48 hours 02/10/21 17:08 Blood Culture - Preliminary Blood No Growth after 48 hours 02/10/21 16:51 Urine Culture - Final Urine,Clean Catch Klebsiella pneumoniae Escherichia coli Assessment and Plan Plan: Assessment: 1. Acute kidney injury secondary to ATN secondary to hypovolemia. Creatinine was 2.51 on admission and is improved to 2.11today. No hydronephrosis noted on CAT scan. 2. Chronic kidney disease stage IIIa with baseline creatinine in the range of 1.1-1.3 secondary to diabetic kidney disease. 3. Colitis maintained on antibiotics. Surgery following. 4. Anemia of chronic kidney disease. On Aranesp. 5. Diabetes. 6. Chronic systolic CHF with ejection fraction of 45-50%. 7. UTI on antibiotics. Urine culture positive for Klebsiella and E. coli. 8. Hypokalemia from poor intake. Magnesium normal. 9. Hypomagnesemia from poor intake and GI losses. Replaced. Better. 10. Metabolic acidosis secondary to acute kidney injury and she has losses. Maintained on oral bicarbonate. Better. Plan: Maintain LR at 50 mL an hour. Encouraged oral intake. Avoid nephrotoxins. Continue to hold amlodipine. Replace potassium. Decrease bicarb to once daily. Possible discharge today. Follow up outpatient in 1-2 weeks.
--- NOTE | 2021-02-13 10:13 | P.PN ---
<AbigailTri cummins - Last Filed: 02/13/21 10:09> Subjective Progress Note Date: 02/13/21 CHIEF COMPLAINT: Abdominal pain and diarrhea HISTORY OF PRESENT ILLNESS: Surgical service is following regards to patient's colitis. Patient lying in bed comfortably. No reports of abdominal pain. She is having diarrhea again. 3-4 watery mucousy stools through the night. No blood reported. Mild tachycardia WBC has normalized from 14.8-9.0 Hgb 10 platelets 500 sodium 135 potassium 3.2 and being replaced creatinine 2.11. Stoo l cultures pending. States stool for C. diff negative. Stool lactoferrin positive PHYSICAL EXAM: VITAL SIGNS: Reviewed. GENERAL: Well-developed in no acute distress. HEENT: No sclera icterus. Extraocular movements grossly intact. Moist buccal mucosa. Head is atraumatic, normocephalic. ABDOMEN: Soft. Nondistended. Nontender NEUROLOGIC: Awake and alert ASSESSMENT: 1. Abdominal pain with diarrhea and black stools 2. Colitis and concerns for ulcerative colitis noted on computed tomography scan PLAN: -Awaiting stool study results -Continue IV antibiotics -Continue IV fluids -Continue clear liquid diet -Continue supportive care Physician Administrative Officer note has been reviewed by physician. Signing provider agrees with the documented findings, assessment, and plan of care. Objective - Vital Signs Vital signs: Vital Signs Temp 98.3 F 02/13/21 07:43 Pulse 106 H 02/13/21 07:43 Resp 14 02/13/21 07:43 BP 120/63 02/13/21 07:43 Pulse Ox 98 02/13/21 07:43 Intake & Output 02/12/21 02/13/21 02/13/21 18:59 06:59 18:59 Intake Total 400 Balance 400 Intake: Intake, IV Titration 400 Amount Lactated Ringers 1,000 ml 400 @ 50 mls/hr IV .Q20H [facility] Rx#:[id number] Other: Voiding Method Diaper Diaper Incontinent Incontinent # Voids 1 # Bowel Movements 2 - Labs CBC & Chem 7: 02/13/21 04:17 02/13/21 04:17 Labs: Abnormal Lab Results - Last 24 Hours (Table) 02/11/21 02/12/21 02/12/21 Range/Units 16:57 10:57 16:44 Hgb (11.4-16.0) gm/dL Hct (34.0-46.0) % MCHC (31.0-37.0) g/dL Plt Count (150-450) k/uL Sodium (137-145) mmol/L Potassium (3.5-5.1) mmol/L BUN (7-17) mg/dL Creatinine (0.52-1.04) mg/dL Glucose (74-99) mg/dL POC Glucose (mg/dL) 109 H 202 H (75-99) mg/dL Total Bilirubin (0.2-1.3) mg/dL AST (14-36) U/L Total Protein (6.3-8.2) g/dL Albumin (3.5-5.0) g/dL Stool Lactoferrin POSITIVE A (NEGATIVE) 02/12/21 02/13/21 02/13/21 Range/Units 20:35 04:17 04:17 Hgb 10.0 L (11.4-16.0) gm/dL Hct 32.3 L (34.0-46.0) % MCHC 30.9 L (31.0-37.0) g/dL Plt Count 500 H (150-450) k/uL Sodium 135 L (137-145) mmol/L Potassium 3.2 L (3.5-5.1) mmol/L BUN 38 H (7-17) mg/dL Creatinine 2.11 H (0.52-1.04) mg/dL Glucose 152 H (74-99) mg/dL POC Glucose (mg/dL) 100 H (75-99) mg/dL Total Bilirubin <0.1 L (0.2-1.3) mg/dL AST 10 L (14-36) U/L Total Protein 4.4 L (6.3-8.2) g/dL Albumin 1.9 L (3.5-5.0) g/dL Stool Lactoferrin (NEGATIVE) 02/13/21 Range/Units 07:18 Hgb (11.4-16.0) gm/dL Hct (34.0-46.0) % MCHC (31.0-37.0) g/dL Plt Count (150-450) k/uL Sodium (137-145) mmol/L Potassium (3.5-5.1) mmol/L BUN (7-17) mg/dL Creatinine (0.52-1.04) mg/dL Glucose (74-99) mg/dL POC Glucose (mg/dL) 165 H (75-99) mg/dL Total Bilirubin (0.2-1.3) mg/dL AST (14-36) U/L Total Protein (6.3-8.2) g/dL Albumin (3.5-5.0) g/dL Stool Lactoferrin (NEGATIVE) Microbiology - Last 24 Hours (Table) 02/10/21 17:08 Blood Culture - Preliminary Blood No Growth after 48 hours 02/10/21 17:08 Blood Culture - Preliminary Blood No Growth after 48 hours 02/10/21 16:51 Urine Culture - Final Urine,Clean Catch Klebsiella pneumoniae Escherichia coli <Conner Sharma - Last Filed: 02/13/21 16:47> Subjective As above. Patient started having loose stools once again. Had some mild pain earlier today but that is now gone. The patient's daughter is present at the bedside. Cultures from the stool are pending. Remains on Flagyl. Will increase diet at this time. If diarrhea persists over the weekend and will plan colonoscopy Tuesday. Objective - Vital Signs Vital signs: Vital Signs Temp 98.4 F 02/13/21 14:18 Pulse 105 H 02/13/21 14:18 Resp 16 02/13/21 14:18 BP 105/65 02/13/21 14:18 Pulse Ox 97 02/13/21 14:18 Intake & Output 02/12/21 02/13/21 02/13/21 18:59 06:59 18:59 Intake Total 400 Balance 400 Intake: Intake, IV Titration 400 Amount Lactated Ringers 1,000 ml 400 @ 50 mls/hr IV .Q20H [facility] Rx#:[id number] Other: Voiding Method Diaper Diaper Diaper Incontinent Incontinent Incontinent # Voids 1 # Bowel Movements 2 - Labs CBC & Chem 7: 02/13/21 04:17 02/13/21 04:17 Labs: Abnormal Lab Results - Last 24 Hours (Table) 02/12/21 02/12/21 02/13/21 Range/Units 16:44 20:35 04:17 Hgb 10.0 L (11.4-16.0) gm/dL Hct 32.3 L (34.0-46.0) % MCHC 30.9 L (31.0-37.0) g/dL Plt Count 500 H (150-450) k/uL Sodium (137-145) mmol/L Potassium (3.5-5.1) mmol/L BUN (7-17) mg/dL Creatinine (0.52-1.04) mg/dL Glucose (74-99) mg/dL POC Glucose (mg/dL) 202 H 100 H (75-99) mg/dL Total Bilirubin (0.2-1.3) mg/dL AST (14-36) U/L Total Protein (6.3-8.2) g/dL Albumin (3.5-5.0) g/dL 02/13/21 02/13/21 02/13/21 Range/Units 04:17 07:18 11:30 Hgb (11.4-16.0) gm/dL Hct (34.0-46.0) % MCHC (31.0-37.0) g/dL Plt Count (150-450) k/uL Sodium 135 L (137-145) mmol/L Potassium 3.2 L (3.5-5.1) mmol/L BUN 38 H (7-17) mg/dL Creatinine 2.11 H (0.52-1.04) mg/dL Glucose 152 H (74-99) mg/dL POC Glucose (mg/dL) 165 H 116 H (75-99) mg/dL Total Bilirubin <0.1 L (0.2-1.3) mg/dL AST 10 L (14-36) U/L Total Protein 4.4 L (6.3-8.2) g/dL Albumin 1.9 L (3.5-5.0) g/dL 02/13/21 Range/Units 16:26 Hgb (11.4-16.0) gm/dL Hct (34.0-46.0) % MCHC (31.0-37.0) g/dL Plt Count (150-450) k/uL Sodium (137-145) mmol/L Potassium (3.5-5.1) mmol/L BUN (7-17) mg/dL Creatinine (0.52-1.04) mg/dL Glucose (74-99) mg/dL POC Glucose (mg/dL) 235 H (75-99) mg/dL Total Bilirubin (0.2-1.3) mg/dL AST (14-36) U/L Total Protein (6.3-8.2) g/dL Albumin (3.5-5.0) g/dL Microbiology - Last 24 Hours (Table) 02/10/21 17:08 Blood Culture - Preliminary Blood No Growth after 48 hours 02/10/21 17:08 Blood Culture - Preliminary Blood No Growth after 48 hours 02/10/21 16:51 Urine Culture - Final Urine,Clean Catch Klebsiella pneumoniae Escherichia coli
[2021-02-13 11:36] LABS: Glucose,Whole Blood 116 mg/dL (75-99)
--- NOTE | 2021-02-13 13:05 | P.PN ---
Subjective Principal diagnosis: Colitis, diarrhea Chart was reviewed. Patient was seen and examined. Patient is 75-year-old female with history of dementia, bipolar disorder, chronic kidney disease who presented to the hospital for evaluation of diarrhea. Patient is a poor historian. History is obtained from her daughter over the phone. Patient appears comfortable. She denies any abdominal pain nausea or vomiting. Per nursing staff she is still having some mucoid loose bowel movements but no javier diarrhea. Patient denies any abdominal pain or discomfort. Appetite remains poor. Objective - Vital Signs Vital signs: Vital Signs Temp 98.3 F 02/13/21 07:43 Pulse 106 H 02/13/21 07:43 Resp 14 02/13/21 07:43 BP 120/63 02/13/21 07:43 Pulse Ox 98 02/13/21 07:43 Intake & Output 02/12/21 02/13/21 02/13/21 18:59 06:59 18:59 Intake Total 400 Balance 400 Intake: Intake, IV Titration 400 Amount Lactated Ringers 1,000 ml 400 @ 50 mls/hr IV .Q20H [facility] Rx#:[id number] Other: Voiding Method Diaper Diaper Diaper Incontinent Incontinent Incontinent # Voids 1 # Bowel Movements 2 - Exam Patient is awake and alert in no apparent distress Head and neck: Anicteric sclera oropharyngeal mucosa is dry without any lesions no neck masses or JVD Lungs: Clear to auscultation Cardiovascular regular rhythm and rate Abdomen: Bowel sounds are present throughout, abdomen is soft nondistended no any point of tenderness nor organomegaly no flank pain Extremities: Trace peripheral edema warm and well-perfused Neurological follicle months no focal deficits no asterixis - Labs CBC & Chem 7: 02/13/21 04:17 02/13/21 04:17 Labs: Abnormal Lab Results - Last 24 Hours (Table) 02/11/21 02/12/21 02/12/21 Range/Units 16:57 16:44 20:35 Hgb (11.4-16.0) gm/dL Hct (34.0-46.0) % MCHC (31.0-37.0) g/dL Plt Count (150-450) k/uL Sodium (137-145) mmol/L Potassium (3.5-5.1) mmol/L BUN (7-17) mg/dL Creatinine (0.52-1.04) mg/dL Glucose (74-99) mg/dL POC Glucose (mg/dL) 202 H 100 H (75-99) mg/dL Total Bilirubin (0.2-1.3) mg/dL AST (14-36) U/L Total Protein (6.3-8.2) g/dL Albumin (3.5-5.0) g/dL Stool Lactoferrin POSITIVE A (NEGATIVE) 02/13/21 02/13/21 02/13/21 Range/Units 04:17 04:17 07:18 Hgb 10.0 L (11.4-16.0) gm/dL Hct 32.3 L (34.0-46.0) % MCHC 30.9 L (31.0-37.0) g/dL Plt Count 500 H (150-450) k/uL Sodium 135 L (137-145) mmol/L Potassium 3.2 L (3.5-5.1) mmol/L BUN 38 H (7-17) mg/dL Creatinine 2.11 H (0.52-1.04) mg/dL Glucose 152 H (74-99) mg/dL POC Glucose (mg/dL) 165 H (75-99) mg/dL Total Bilirubin <0.1 L (0.2-1.3) mg/dL AST 10 L (14-36) U/L Total Protein 4.4 L (6.3-8.2) g/dL Albumin 1.9 L (3.5-5.0) g/dL Stool Lactoferrin (NEGATIVE) 02/13/21 Range/Units 11:30 Hgb (11.4-16.0) gm/dL Hct (34.0-46.0) % MCHC (31.0-37.0) g/dL Plt Count (150-450) k/uL Sodium (137-145) mmol/L Potassium (3.5-5.1) mmol/L BUN (7-17) mg/dL Creatinine (0.52-1.04) mg/dL Glucose (74-99) mg/dL POC Glucose (mg/dL) 116 H (75-99) mg/dL Total Bilirubin (0.2-1.3) mg/dL AST (14-36) U/L Total Protein (6.3-8.2) g/dL Albumin (3.5-5.0) g/dL Stool Lactoferrin (NEGATIVE) Microbiology - Last 24 Hours (Table) 02/10/21 17:08 Blood Culture - Preliminary Blood No Growth after 48 hours 02/10/21 17:08 Blood Culture - Preliminary Blood No Growth after 48 hours 02/10/21 16:51 Urine Culture - Final Urine,Clean Catch Klebsiella pneumoniae Escherichia coli Assessment and Plan Plan: #Acute colitis With nonbloody diarrhea and leukocytosis Patient is afebrile Infectious etiology workup underway, infectious versus inflammatory bowel disease Stool culture no growth to date Stool WBCs positive C diff negative Ordered empirical treatment with ceftriaxone, Flagyl IV and oral vancomycin Check ESR and CRP, lactic acid Gen. surgery following At this point, Patient will need colonoscopy to rule out inflammatory bowel disease, ulcerative colitis. #Acute on chronic kidney injury CKD stage III Diabetic nephropathy Nephrology consultation Continue IV fluids, changed to LR Bladder scan Continue home sodium bicarbonate #SIRS r/o sepsis septic work up #Type 2 diabetes mellitus without long-term current use of insulin Restart diabetic diet this tolerated Sliding scale Blood glucose monitoring #Dementia and bipolar disorder Continue Zyprexa Hold Aricept in view of diarrhea #Peptic ulcer disease EGD proven 11/2020 Continue PPI #Hypertension Blood pressure is on the softer side Hold home amlodipine Decrease home Toprol, would prefer not to discontinue completely #Diabetic neuropathy with chronic peripheral wound Wound care consultation #Severe protein calorie malnutrition Dietitian services consult
--- NOTE | 2021-02-13 13:16 | CDI ---
Documentation Clarification Form Date: 02/13/2021 12:53:06 PM From: Roseanne Hernandez RN CCDS Admit Date: 02/10/2021 05:21:00 PM Patient Name: Jigna Sofia Visit Number: [id number] Discharge Date: ATTENTION: The Clinical Documentation Specialists (CDI) and [facility] Coding Staff appreciate your assistance in clarifying documentation. Please respond to the clarification below the line at the bottom and electronically sign. The CDI & [facility] Coding staff will review the response and follow-up if needed. Please note: Queries are made part of the Legal Health Record. If you have any questions, please contact the author of this message via ITS. Dr. Toy Caballero Sepsis is documented H&P, 02/10, but is not noted in subsequent documentation. Clarification is requested. History/Risk Factors: 75-year-old female presents to the ED for diarrhea for one-week, abdominal cramps, generalized fatigue and weakness. Medical history: C-diff and DM. Clinical Indicators: VSS: 127 B/P 94/46, HR 97, Temp 98.9 F Oral, RR 18, SpO2 96% ra Labs: 02/10 Wbc 18.2, Neutrophils 16.0, UA Culture: 02/12 Klebsiella Pneumoniae C.difficile Intrp: 02/10 Negative, 02/11 Negative H&P 02/10 Severe Sepsis with CADE secondary to acute colitis Treatment: Fluids: 02/10 0.9NS 500cc X 1, 02/10 to 02/12 0.9NS 130cc/hr. Antibiotics: 02/11 to current Ceftriaxone 1gm IVPB Q24H, 02/11 to current Metronidazole 500mg IVPB Q8H, 02/10 Zosyn 3.75gm IVPB X 1, 02/11 and D/Cd 02/11 Zosyn 3.375gm IVPB Q8H. Please clarify if the Sepsis is: [ ] Sepsis confirmed, remains under treatment [ ] Sepsis confirmed, resolved [ x ] Sepsis ruled out [ ] Other condition, please specify [ ] Unable to determine (Template Last Revised: May 2020) MTDD
[2021-02-13] MEDS: LACTATED RINGERS 1,000 ML IV SCH (15:33)
[2021-02-13] MEDS: ACETAMINOPHEN TAB 325 MG TAB PO PRN ×2 (15:35→22:34)
[2021-02-13 16:29] LABS: Glucose,Whole Blood 235 mg/dL (75-99)
[2021-02-13 22:19] LABS: Glucose,Whole Blood 130 mg/dL (75-99)
[2021-02-13] MEDS: ATORVASTATIN 10 MG TAB PO SCH (22:33)
[2021-02-13] MEDS: OLANZapine 2.5 MG TAB PO SCH (22:34)
[2021-02-13] MEDS: LATANOPROST 0.005% OPHTH DROPS 2.5 ML BTL BOTH EYES SCH (22:34)
[2021-02-14] MEDS: metroNIDAZOLE-NS PMX 500 MG in SALINE 1 100ML.BAG IVPB SCH ×4 (00:27→23:02)
[2021-02-14 06:34] LABS: HCT 34.1 % (34.0-46.0); HGB 10.2 gm/dL (11.4-16.0); Hypochromasia Marked; MCH 25.7 pg (25.0-35.0); MCHC 29.9 g/dL (31.0-37.0); MCV 86.2 fL (80.0-100.0); Mean Platelet Volume 6.8; Platelet Count 476 k/uL (150-450); RBC 3.95 m/uL (3.80-5.40); RDW 14.4 % (11.5-15.5); WBC 8.4 k/uL (3.8-10.6)
[2021-02-14 07:05] LABS: Anisocytosis (M) Present
[2021-02-14 07:40] LABS: Glucose,Whole Blood 166 mg/dL (75-99)
[2021-02-14] MEDS: SODIUM BICARBONATE TAB 650 MG TAB PO SCH (08:58)
[2021-02-14] MEDS: INSULIN ASPART (NovoLOG) 100 UNIT/ML VIAL SQ SCH ×4 (08:58→23:01)
[2021-02-14] MEDS: METOPROLOL SUCCINATE (ER) 50 MG TAB.ER.24H PO SCH (08:58)
[2021-02-14] MEDS: PANTOPRAZOLE 40 MG TABLET PO SCH (08:58)
[2021-02-14] MEDS: VANCOMYCIN ORAL SOLUTION 250 MG/5 ML BOTTLE PO SCH (08:58)
[2021-02-14 09:31] LABS: African American GFR (CKD) 28.7 (60.0-200.0); Anion Gap 10.5 mmol/L (10.00-18.00); BUN/Creat Ratio 16.21 Ratio (12.00-20.00); Blood Urea Nitrogen 31.6 mg/dL (9.0-27.0); C Reactive Protein 4.4 mg/dL (0.00-0.80); Calcium 8.6 mg/dL (8.7-10.3); Carbon Dioxide 23.5 mmol/L (20.0-27.5); Non-African American GFR(CKD) 24.7 (60.0-200.0); Potassium 3.8 mmol/L (3.5-5.5)
--- NOTE | 2021-02-14 10:59 | P.PN ---
Subjective Progress Note Date: 02/14/21 Principal diagnosis: Colitis Patient had 3 bowel movements since yesterday afternoon. Describes a small amount of the abdominal pain lower abdomen. White blood cell count normal at 8.4. Stool cultures still pending. Objective - Vital Signs Vital signs: Vital Signs Temp 98.5 F 02/14/21 05:53 Pulse 80 02/14/21 05:53 Resp 20 02/14/21 05:53 BP 132/65 02/14/21 05:53 Pulse Ox 98 02/14/21 05:53 Intake & Output 02/13/21 02/14/21 02/14/21 18:59 06:59 18:59 Intake Total 600 50 Output Total 1 Balance 600 49 Intake: Intake, IV Titration 600 Amount Lactated Ringers 1,000 ml 600 @ 50 mls/hr IV .Q20H [facility] Rx#:[id number] Oral 50 Output: Urine 1 Other: Voiding Method Diaper Diaper Diaper Incontinent Incontinent Incontinent # Bowel Movements 7 1 - Exam Abdomen: Soft, nontender, nondistended - Labs CBC & Chem 7: 02/14/21 05:56 02/14/21 05:56 Labs: Abnormal Lab Results - Last 24 Hours (Table) 02/13/21 02/13/21 02/13/21 Range/Units 11:30 16:26 22:07 Hgb (11.4-16.0) gm/dL MCHC (31.0-37.0) g/dL Plt Count (150-450) k/uL BUN (9.0-27.0) mg/dL Creatinine (0.6-1.5) mg/dL Est GFR (CKD-EPI)AfAm (60.0-200.0) Est GFR (CKD-EPI)NonAf (60.0-200.0) Glucose (70-110) mg/dL POC Glucose (mg/dL) 116 H 235 H 130 H (75-99) mg/dL Calcium (8.7-10.3) mg/dL C-Reactive Protein (0.00-0.80) mg/dL 02/14/21 02/14/21 02/14/21 Range/Units 05:56 05:56 07:38 Hgb 10.2 L (11.4-16.0) gm/dL MCHC 29.9 L (31.0-37.0) g/dL Plt Count 476 H (150-450) k/uL BUN 31.6 H (9.0-27.0) mg/dL Creatinine 2.0 H (0.6-1.5) mg/dL Est GFR (CKD-EPI)AfAm 28.7 L (60.0-200.0) Est GFR (CKD-EPI)NonAf 24.7 L (60.0-200.0) Glucose 168 H (70-110) mg/dL POC Glucose (mg/dL) 166 H (75-99) mg/dL Calcium 8.6 L (8.7-10.3) mg/dL C-Reactive Protein 4.40 H (0.00-0.80) mg/dL Microbiology - Last 24 Hours (Table) 02/10/21 17:08 Blood Culture - Preliminary Blood No Growth after 72 hours 02/10/21 17:08 Blood Culture - Preliminary Blood No Growth after 72 hours Assessment and Plan (1) Colitis Narrative/Plan: Patient doing about the same today. Await final stool cultures. Continue Flagyl. Will plan colonoscopy Tuesday if cultures negative and diarrhea persists. Current Visit: Yes Status: Acute Code(s): K52.9 - NONINFECTIVE GASTROENTERITIS AND COLITIS, UNSPECIFIED SNOMED Code(s): 22192464
--- NOTE | 2021-02-14 11:55 | P.PN ---
Subjective Principal diagnosis: Colitis, diarrhea Chart was reviewed. Patient was seen and examined. Patient is 75-year-old female with history of dementia, bipolar disorder, chronic kidney disease who presented to the hospital for evaluation of diarrhea. Patient is a poor historian. History is obtained from her daughter over the phone. Patient appears comfortable. She denies any abdominal pain nausea or vomiting. Continues to have mucoid stools. No blood. Objective - Vital Signs Vital signs: Vital Signs Temp 98.5 F 02/14/21 05:53 Pulse 80 02/14/21 05:53 Resp 20 02/14/21 05:53 BP 132/65 02/14/21 05:53 Pulse Ox 98 02/14/21 05:53 Intake & Output 02/13/21 02/14/21 02/14/21 18:59 06:59 18:59 Intake Total 600 50 Output Total 1 Balance 600 49 Intake: Intake, IV Titration 600 Amount Lactated Ringers 1,000 ml 600 @ 50 mls/hr IV .Q20H [facility] Rx#:[id number] Oral 50 Output: Urine 1 Other: Voiding Method Diaper Diaper Diaper Incontinent Incontinent Incontinent # Bowel Movements 7 1 - Exam Patient is awake and alert in no apparent distress Head and neck: Anicteric sclera oropharyngeal mucosa is dry without any lesions no neck masses or JVD Lungs: Clear to auscultation Cardiovascular regular rhythm and rate Abdomen: Bowel sounds are present throughout, abdomen is soft nondistended no any point of tenderness nor organomegaly no flank pain Extremities: Trace peripheral edema warm and well-perfused Neurological follicle months no focal deficits no asterixis - Labs CBC & Chem 7: 02/14/21 05:56 02/14/21 05:56 Labs: Abnormal Lab Results - Last 24 Hours (Table) 02/13/21 02/13/21 02/14/21 Range/Units 16:26 22:07 05:56 Hgb 10.2 L (11.4-16.0) gm/dL MCHC 29.9 L (31.0-37.0) g/dL Plt Count 476 H (150-450) k/uL BUN (9.0-27.0) mg/dL Creatinine (0.6-1.5) mg/dL Est GFR (CKD-EPI)AfAm (60.0-200.0) Est GFR (CKD-EPI)NonAf (60.0-200.0) Glucose (70-110) mg/dL POC Glucose (mg/dL) 235 H 130 H (75-99) mg/dL Calcium (8.7-10.3) mg/dL C-Reactive Protein (0.00-0.80) mg/dL 02/14/21 02/14/21 Range/Units 05:56 07:38 Hgb (11.4-16.0) gm/dL MCHC (31.0-37.0) g/dL Plt Count (150-450) k/uL BUN 31.6 H (9.0-27.0) mg/dL Creatinine 2.0 H (0.6-1.5) mg/dL Est GFR (CKD-EPI)AfAm 28.7 L (60.0-200.0) Est GFR (CKD-EPI)NonAf 24.7 L (60.0-200.0) Glucose 168 H (70-110) mg/dL POC Glucose (mg/dL) 166 H (75-99) mg/dL Calcium 8.6 L (8.7-10.3) mg/dL C-Reactive Protein 4.40 H (0.00-0.80) mg/dL Microbiology - Last 24 Hours (Table) 02/10/21 17:08 Blood Culture - Preliminary Blood No Growth after 72 hours 02/10/21 17:08 Blood Culture - Preliminary Blood No Growth after 72 hours Assessment and Plan Plan: #Acute colitis With nonbloody diarrhea and leukocytosis Patient is afebrile Infectious etiology workup underway, infectious versus inflammatory bowel disease Stool culture no growth to date Stool WBCs positive C diff negative Ordered empirical treatment with ceftriaxone, Flagyl IV and oral vancomycin Check ESR and CRP, lactic acid Gen. surgery following Discussed with patient's daughter, patient will need to stay in the hospital until next week to have gastroenterology evaluate her and Colonoscopy. #Acute on chronic kidney injury CKD stage III Diabetic nephropathy Nephrology consultation Continue IV fluids, changed to LR Bladder scan Continue home sodium bicarbonate #SIRS r/o sepsis septic work up #Type 2 diabetes mellitus without long-term current use of insulin Restart diabetic diet this tolerated Sliding scale Blood glucose monitoring #Dementia and bipolar disorder Continue Zyprexa Hold Aricept in view of diarrhea #Peptic ulcer disease EGD proven 11/2020 Continue PPI #Hypertension Blood pressure is on the softer side Hold home amlodipine Decrease home Toprol, would prefer not to discontinue completely #Diabetic neuropathy with chronic peripheral wound Wound care consultation #Severe protein calorie malnutrition Dietitian services consult
[2021-02-14 12:30] LABS: Glucose,Whole Blood 128 mg/dL (75-99)
--- NOTE | 2021-02-14 13:08 | P.PN ---
Subjective Progress Note Date: 02/14/21 Principal diagnosis: This is a 75-year-old female seen in consultation because of chronic kidney disease with a baseline creatinine 1.3 came in with abdominal pain and possible colitis. He is feeling better. Language barrier but able to tell me that feeling better and denies any complaints. No diarrhea no nausea vomiting no chest pain shortness of breath. Vital signs are stable blood pressure lowest is 100/62 24-hour urine output has been not been documented She is known with coronary artery disease diabetes mellitus ejection fraction of 45-50% Objective - Vital Signs Vital signs: Vital Signs Temp 98.5 F 02/14/21 05:53 Pulse 80 02/14/21 05:53 Resp 20 02/14/21 05:53 BP 132/65 02/14/21 05:53 Pulse Ox 98 02/14/21 05:53 Intake & Output 02/13/21 02/14/21 02/14/21 18:59 06:59 18:59 Intake Total 600 50 Output Total 1 Balance 600 49 Intake: Intake, IV Titration 600 Amount Lactated Ringers 1,000 ml 600 @ 50 mls/hr IV .Q20H [facility] Rx#:[id number] Oral 50 Output: Urine 1 Other: Voiding Method Diaper Diaper Diaper Incontinent Incontinent Incontinent # Bowel Movements 7 1 Exam awake alert comfortable HEENT exam no JVP neck is supple no facial asymmetry Lungs clear to auscultation good air entry bilaterally Heart sounds unremarkable for any murmur rub Abdomen soft nontender Extremity exam was no edema Neurologically awake alert and is to be oriented and able to speak few sent ences, in spite of the language barrier - Labs CBC & Chem 7: 02/14/21 05:56 02/14/21 05:56 Labs: Abnormal Lab Results - Last 24 Hours (Table) 02/13/21 02/13/21 02/14/21 Range/Units 16:26 22:07 05:56 Hgb 10.2 L (11.4-16.0) gm/dL MCHC 29.9 L (31.0-37.0) g/dL Plt Count 476 H (150-450) k/uL BUN (9.0-27.0) mg/dL Creatinine (0.6-1.5) mg/dL Est GFR (CKD-EPI)AfAm (60.0-200.0) Est GFR (CKD-EPI)NonAf (60.0-200.0) Glucose (70-110) mg/dL POC Glucose (mg/dL) 235 H 130 H (75-99) mg/dL Calcium (8.7-10.3) mg/dL C-Reactive Protein (0.00-0.80) mg/dL 02/14/21 02/14/21 02/14/21 Range/Units 05:56 07:38 12:29 Hgb (11.4-16.0) gm/dL MCHC (31.0-37.0) g/dL Plt Count (150-450) k/uL BUN 31.6 H (9.0-27.0) mg/dL Creatinine 2.0 H (0.6-1.5) mg/dL Est GFR (CKD-EPI)AfAm 28.7 L (60.0-200.0) Est GFR (CKD-EPI)NonAf 24.7 L (60.0-200.0) Glucose 168 H (70-110) mg/dL POC Glucose (mg/dL) 166 H 128 H (75-99) mg/dL Calcium 8.6 L (8.7-10.3) mg/dL C-Reactive Protein 4.40 H (0.00-0.80) mg/dL Microbiology - Last 24 Hours (Table) 02/10/21 17:08 Blood Culture - Preliminary Blood No Growth after 72 hours 02/10/21 17:08 Blood Culture - Preliminary Blood No Growth after 72 hours Assessment and Plan Assessment: Impression 1. Acute kidney injury secondary to prerenal with possible colitis and poor intake 2. Chronic kidney disease stage III, creatinine 1.3 secondary diabetic nephropathy 3. 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 4. Klebsiella pneumonia UTI. 5. Anemia hemoglobin is 10.2, stable Recommendation. 1. Maintain lactated Ringer's at 650 an hour. 2. Continue same medications. Blood pressure is somewhat low patient is on metoprolol 50 a day, watch low blood pressure 3. Monitor labs
[2021-02-14] MEDS: LACTATED RINGERS 1,000 ML IV SCH (15:45)
[2021-02-14 17:47] LABS: Glucose,Whole Blood 157 mg/dL (75-99)
[2021-02-14 21:28] LABS: Glucose,Whole Blood 220 mg/dL (75-99)
[2021-02-14] MEDS: COLLAGENASE 250 UNIT/GM OINTMENT 30 GM TUBE TOPICAL SCH (23:01)
[2021-02-14] MEDS: ATORVASTATIN 10 MG TAB PO SCH (23:01)
[2021-02-14] MEDS: OLANZapine 2.5 MG TAB PO SCH (23:02)
[2021-02-14] MEDS: LATANOPROST 0.005% OPHTH DROPS 2.5 ML BTL BOTH EYES SCH (23:02)
[2021-02-15] MEDS: ACETAMINOPHEN TAB 325 MG TAB PO PRN ×2 (00:22→17:56)
[2021-02-15 04:05] LABS: HCT 31.7 % (34.0-46.0); HGB 9.4 gm/dL (11.4-16.0); Hypochromasia Marked; MCH 24.8 pg (25.0-35.0); MCHC 29.8 g/dL (31.0-37.0); MCV 83.1 fL (80.0-100.0); Mean Platelet Volume 7.2; Platelet Count 479 k/uL (150-450); RBC 3.81 m/uL (3.80-5.40); RDW 14.2 % (11.5-15.5); WBC 9.1 k/uL (3.8-10.6)
[2021-02-15] MEDS: LACTATED RINGERS 1,000 ML IV SCH (05:59)
[2021-02-15 06:58] LABS: Glucose,Whole Blood 107 mg/dL (75-99)
[2021-02-15] MEDS ORDERED: PEG 3350-NA SULF,BICARB,CL/KCL 4,000 ML BOTTLE PO ONE (09:15)
--- NOTE | 2021-02-15 09:16 | P.PN ---
Subjective Progress Note Date: 02/15/21 Principal diagnosis: Colitis Patient has no new complaints. Still having loose stools. Stool cultures finally came back and are negative and as a final report. No bleeding. No significant pain. She is afebrile. White blood cell count 9.1, hemoglobin 9.4. Objective - Vital Signs Vital signs: Vital Signs Temp 97.8 F 02/15/21 05:00 Pulse 98 02/15/21 05:00 Resp 20 02/15/21 05:00 BP 122/71 02/15/21 05:00 Pulse Ox 96 02/15/21 05:00 Intake & Output 02/14/21 02/15/21 02/15/21 18:59 06:59 18:59 Intake Total 600 200 Balance 600 200 Intake: Intake, IV Titration 600 Amount Lactated Ringers 1,000 ml 600 @ 50 mls/hr IV .Q20H [facility] Rx#:[id number] Oral 200 Other: Voiding Method Diaper Diaper Incontinent Incontinent # Voids 3 3 # Bowel Movements 4 5 - Exam Abdomen: Soft, nontender, nondistended - Labs CBC & Chem 7: 02/15/21 03:23 02/14/21 05:56 Labs: Abnormal Lab Results - Last 24 Hours (Table) 02/14/21 02/14/21 02/14/21 Range/Units 05:56 12:29 17:47 Hgb (11.4-16.0) gm/dL Hct (34.0-46.0) % MCH (25.0-35.0) pg MCHC (31.0-37.0) g/dL Plt Count (150-450) k/uL BUN 31.6 H (9.0-27.0) mg/dL Creatinine 2.0 H (0.6-1.5) mg/dL Est GFR (CKD-EPI)AfAm 28.7 L (60.0-200.0) Est GFR (CKD-EPI)NonAf 24.7 L (60.0-200.0) Glucose 168 H (70-110) mg/dL POC Glucose (mg/dL) 128 H 157 H (75-99) mg/dL Calcium 8.6 L (8.7-10.3) mg/dL C-Reactive Protein 4.40 H (0.00-0.80) mg/dL 02/14/21 02/15/21 02/15/21 Range/Units 21:26 03:23 06:57 Hgb 9.4 L (11.4-16.0) gm/dL Hct 31.7 L (34.0-46.0) % MCH 24.8 L (25.0-35.0) pg MCHC 29.8 L (31.0-37.0) g/dL Plt Count 479 H (150-450) k/uL BUN (9.0-27.0) mg/dL Creatinine (0.6-1.5) mg/dL Est GFR (CKD-EPI)AfAm (60.0-200.0) Est GFR (CKD-EPI)NonAf (60.0-200.0) Glucose (70-110) mg/dL POC Glucose (mg/dL) 220 H 107 H (75-99) mg/dL Calcium (8.7-10.3) mg/dL C-Reactive Protein (0.00-0.80) mg/dL Microbiology - Last 24 Hours (Table) 02/11/21 16:57 Stool Culture - Final Stool 02/10/21 17:08 Blood Culture - Preliminary Blood No Growth after 96 hours 02/10/21 17:08 Blood Culture - Preliminary Blood No Growth after 96 hours Assessment and Plan (1) Colitis Narrative/Plan: Overall patient doing about the same. Because the stool cultures came back negative Will add on for colonoscopy tomorrow. Continue Flagyl. Current Visit: Yes Status: Acute Code(s): K52.9 - NONINFECTIVE GASTROENTERITIS AND COLITIS, UNSPECIFIED SNOMED Code(s): 91179086
[2021-02-15] MEDS: PANTOPRAZOLE 40 MG TABLET PO SCH (09:41)
[2021-02-15] MEDS: METOPROLOL SUCCINATE (ER) 50 MG TAB.ER.24H PO SCH (09:41)
[2021-02-15] MEDS: metroNIDAZOLE-NS PMX 500 MG in SALINE 1 100ML.BAG IVPB SCH ×3 (09:41→23:57)
[2021-02-15] MEDS: SODIUM BICARBONATE TAB 650 MG TAB PO SCH (09:41)
[2021-02-15] MEDS: INSULIN ASPART (NovoLOG) 100 UNIT/ML VIAL SQ SCH ×4 (09:46→20:41)
[2021-02-15 10:09] VITALS: RESP 16
--- NOTE | 2021-02-15 10:14 | P.PN ---
Subjective Principal diagnosis: Colitis, diarrhea Chart was reviewed. Patient was seen and examined. Patient is 75-year-old female with history of dementia, bipolar disorder, chronic kidney disease who presented to the hospital for evaluation of diarrhea. Patient is a poor historian. History is obtained from her daughter over the phone. Patient appears comfortable. She denies any abdominal pain nausea or vomiting. Continues to have mucoid stools. No blood. Objective - Vital Signs Vital signs: Vital Signs Temp 98 F 02/15/21 10:00 Pulse 106 H 02/15/21 10:00 Resp 16 02/15/21 10:00 BP 107/58 02/15/21 10:00 Pulse Ox 98 02/15/21 10:00 Intake & Output 02/14/21 02/15/21 02/15/21 18:59 06:59 18:59 Intake Total 600 200 Balance 600 200 Intake: Intake, IV Titration 600 Amount Lactated Ringers 1,000 ml 600 @ 50 mls/hr IV .Q20H [facility] Rx#:[id number] Oral 200 Other: Voiding Method Diaper Diaper Diaper Incontinent Incontinent Incontinent # Voids 3 3 # Bowel Movements 4 5 - Exam Patient is awake and alert in no apparent distress Head and neck: Anicteric sclera oropharyngeal mucosa is dry without any lesions no neck masses or JVD Lungs: Clear to auscultation Cardiovascular regular rhythm and rate Abdomen: Bowel sounds are present throughout, abdomen is soft nondistended no any point of tenderness nor organomegaly no flank pain Extremities: Trace peripheral edema warm and well-perfused Neurological follicle months no focal deficits no asterixis - Labs CBC & Chem 7: 02/15/21 03:23 02/14/21 05:56 Labs: Abnormal Lab Results - Last 24 Hours (Table) 02/14/21 02/14/21 02/14/21 Range/Units 12:29 17:47 21:26 Hgb (11.4-16.0) gm/dL Hct (34.0-46.0) % MCH (25.0-35.0) pg MCHC (31.0-37.0) g/dL Plt Count (150-450) k/uL POC Glucose (mg/dL) 128 H 157 H 220 H (75-99) mg/dL 02/15/21 02/15/21 Range/Units 03:23 06:57 Hgb 9.4 L (11.4-16.0) gm/dL Hct 31.7 L (34.0-46.0) % MCH 24.8 L (25.0-35.0) pg MCHC 29.8 L (31.0-37.0) g/dL Plt Count 479 H (150-450) k/uL POC Glucose (mg/dL) 107 H (75-99) mg/dL Microbiology - Last 24 Hours (Table) 02/11/21 16:57 Stool Culture - Final Stool 02/10/21 17:08 Blood Culture - Preliminary Blood No Growth after 96 hours 02/10/21 17:08 Blood Culture - Preliminary Blood No Growth after 96 hours Assessment and Plan Plan: #Acute colitis With nonbloody diarrhea and leukocytosis Patient is afebrile Infectious etiology workup underway, infectious versus inflammatory bowel disease, ulcerative colitis Stool culture no growth to date Stool WBCs positive C diff negative x 2 Ordered empirical treatment with ceftriaxone, Flagyl IV and oral vancomycin Okay to stop vancomycin CRP elevated, ESR pending Gen. surgery following Patient will need colonoscopy, likely early next week when GI consultation available #Acute on chronic kidney injury CKD stage III Diabetic nephropathy Nephrology consultation Continue IV fluids, changed to LR Bladder scan Continue home sodium bicarbonate #SIRS r/o sepsis septic work up #Type 2 diabetes mellitus without long-term current use of insulin Restart diabetic diet this tolerated Sliding scale Blood glucose monitoring #Dementia and bipolar disorder Continue Zyprexa Hold Aricept in view of diarrhea #Peptic ulcer disease EGD proven 11/2020 Continue PPI #Hypertension Blood pressure is on the softer side Hold home amlodipine Decrease home Toprol, would prefer not to discontinue completely #Diabetic neuropathy with chronic peripheral wound Wound care consultation #Severe protein calorie malnutrition Dietitian services consult
[2021-02-15 11:07] LABS: Magnesium 1.9 mg/dL (1.5-2.4)
[2021-02-15 11:21] LABS: ALT <5 U/L (8-44); AST 8 U/L (13-35); Albumin 2.1 g/dL (3.8-4.9); Alkaline Phosphatase 45 U/L (41-126); BUN/Creat Ratio 17.47 Ratio (12.00-20.00); Blood Urea Nitrogen 27.6 mg/dL (9.0-27.0); Calcium 8.5 mg/dL (8.7-10.3); Carbon Dioxide 24.6 mmol/L (20.0-27.5); Chloride 102 mmol/L (96-109); Globulin 2.1 g/dL (1.6-3.3); Glucose 88 mg/dL (70-110); Non-African American GFR(CKD) 31.9 (60.0-200.0); Potassium 3.6 mmol/L (3.5-5.5); Sodium 137 mmol/L (135-145); Total Bilirubin <0.20 mg/dL (0.30-1.20); Total Protein 4.1 g/dL (6.2-8.2)
[2021-02-15 12:25] LABS: Glucose,Whole Blood 150 mg/dL (75-99)
--- NOTE | 2021-02-15 13:23 | P.PN ---
Subjective Progress Note Date: 02/15/21 Principal diagnosis: This is a 75-year-old female seen in consultation because of chronic kidney disease with a baseline creatinine 1.3 came in with abdominal pain and possible colitis. She is feeling better. Mild abdominal pain remains. Diarrhea is improved this morning she didn't have any. Supposedly yesterday she had some Language barrier but able to tell me that feeling better and denies any complaints. No diarrhea no nausea vomiting no chest pain shortness of breath. Her blood pressure tends to be somewhat low 91/52, 216/65, afebrile heart rate in the day for many 224/m. Urine output is documented at 1200 mL She is known with coronary artery disease diabetes mellitus ejection fraction of 45-50% Objective - Vital Signs Vital signs: Vital Signs Temp 98.1 F 02/15/21 12:13 Pulse 90 02/15/21 12:13 Resp 16 02/15/21 12:13 BP 121/74 02/15/21 12:13 Pulse Ox 97 02/15/21 12:13 Intake & Output 02/14/21 02/15/21 02/15/21 18:59 06:59 18:59 Intake Total 600 200 Balance 600 200 Intake: Intake, IV Titration 600 Amount Lactated Ringers 1,000 ml 600 @ 50 mls/hr IV .Q20H [facility] Rx#:[id number] Oral 200 Other: Voiding Method Diaper Diaper Diaper Incontinent Incontinent Incontinent # Voids 3 3 # Bowel Movements 4 5 On examination is awake alert oriented She is able to speak a few sentences and annulus her daughter was in the room today. HEENT exam no JVP neck is supple no facial asymmetry Lungs are significant for some diminished air entry bilaterally more so on the left posterior side Heart sounds unremarkable for any murmur rub gallop Abdomen soft nontender Extremity exam was no edema Neurologically awake alert oriented but generalized weakness - Labs CBC & Chem 7: 02/15/21 03:23 02/15/21 03:23 Labs: Abnormal Lab Results - Last 24 Hours (Table) 02/14/21 02/14/21 02/15/21 Range/Units 17:47 21:26 03:23 Hgb (11.4-16.0) gm/dL Hct (34.0-46.0) % MCH (25.0-35.0) pg MCHC (31.0-37.0) g/dL Plt Count (150-450) k/uL Anion Gap 9.90 L (10.00-18.00) mmol/L BUN 27.6 H (9.0-27.0) mg/dL Creatinine 1.6 H (0.6-1.5) mg/dL Est GFR (CKD-EPI)AfAm 37.0 L (60.0-200.0) Est GFR (CKD-EPI)NonAf 31.9 L (60.0-200.0) POC Glucose (mg/dL) 157 H 220 H (75-99) mg/dL Calcium 8.5 L (8.7-10.3) mg/dL Total Bilirubin <0.20 L (0.30-1.20) mg/dL AST 8 L (13-35) U/L ALT <5 L (8-44) U/L C-Reactive Protein 3.00 H (0.00-0.80) mg/dL Total Protein 4.1 L (6.2-8.2) g/dL Albumin 2.1 L (3.8-4.9) g/dL Albumin/Globulin Ratio 1.00 L (1.60-3.17) g/dL 02/15/21 02/15/21 02/15/21 Range/Units 03:23 06:57 12:24 Hgb 9.4 L (11.4-16.0) gm/dL Hct 31.7 L (34.0-46.0) % MCH 24.8 L (25.0-35.0) pg MCHC 29.8 L (31.0-37.0) g/dL Plt Count 479 H (150-450) k/uL Anion Gap (10.00-18.00) mmol/L BUN (9.0-27.0) mg/dL Creatinine (0.6-1.5) mg/dL Est GFR (CKD-EPI)AfAm (60.0-200.0) Est GFR (CKD-EPI)NonAf (60.0-200.0) POC Glucose (mg/dL) 107 H 150 H (75-99) mg/dL Calcium (8.7-10.3) mg/dL Total Bilirubin (0.30-1.20) mg/dL AST (13-35) U/L ALT (8-44) U/L C-Reactive Protein (0.00-0.80) mg/dL Total Protein (6.2-8.2) g/dL Albumin (3.8-4.9) g/dL Albumin/Globulin Ratio (1.60-3.17) g/dL Microbiology - Last 24 Hours (Table) 02/11/21 16:57 Stool Culture - Final Stool 02/10/21 17:08 Blood Culture - Preliminary Blood No Growth after 96 hours 02/10/21 17:08 Blood Culture - Preliminary Blood No Growth after 96 hours Assessment and Plan Assessment: Impression 1. Acute kidney injury secondary to prerenal with possible colitis and poor intake 2. Chronic kidney disease stage III, creatinine 1.3 secondary diabetic nephropathy 3. 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 4. Klebsiella pneumonia UTI. 5. Anemia hemoglobin is 10.2, stable 6. Pneumonia, left lower lobe Recommendation. 1. Maintain lactated Ringer's at 50 an hour. 2. Continue same medications. Blood pressure is somewhat low patient is on metoprolol 50 a day, watch low blood pressure 3. Monitor labs. 4. Patient going for colonoscopy and is getting the usual prep with [facility]
[2021-02-15 17:26] LABS: Glucose,Whole Blood 171 mg/dL (75-99)
[2021-02-15 19:44] LABS: Glucose,Whole Blood 143 mg/dL (75-99)
[2021-02-15] MEDS: LATANOPROST 0.005% OPHTH DROPS 2.5 ML BTL BOTH EYES SCH (20:46)
[2021-02-15] MEDS: ATORVASTATIN 10 MG TAB PO SCH (20:46)
[2021-02-15] MEDS: OLANZapine 2.5 MG TAB PO SCH (20:46)
[2021-02-15] MEDS: COLLAGENASE 250 UNIT/GM OINTMENT 30 GM TUBE TOPICAL SCH (20:46)
[2021-02-16] MEDS: LACTATED RINGERS 1,000 ML IV SCH (00:02)
[2021-02-16 07:05] LABS: Sodium 135 mmol/L (137-145)
[2021-02-16 07:08] LABS: African American GFR (CKD) 55 (>60 ml/min/1.73 sqM); Anion Gap 6 mmol/L; Blood Urea Nitrogen 22 mg/dL (7-17); Calcium 8.8 mg/dL (8.4-10.2); Carbon Dioxide 24 mmol/L (22-30); Chloride 105 mmol/L (98-107); Glucose 122 mg/dL (74-99); Magnesium 1.8 mg/dL (1.6-2.3); Non-African American GFR(CKD) 48 (>60 ml/min/1.73 sqM); Potassium 3.6 mmol/L (3.5-5.1)
[2021-02-16 07:25] LABS: Glucose,Whole Blood 129 mg/dL (75-99)
[2021-02-16] MEDS: INSULIN ASPART (NovoLOG) 100 UNIT/ML VIAL SQ SCH ×4 (07:40→21:30)
[2021-02-16] MEDS: metroNIDAZOLE-NS PMX 500 MG in SALINE 1 100ML.BAG IVPB SCH ×3 (08:29→23:57)
[2021-02-16] MEDS: METOPROLOL SUCCINATE (ER) 50 MG TAB.ER.24H PO SCH (08:29)
[2021-02-16 11:36] LABS: Glucose,Whole Blood 146 mg/dL (75-99)
[2021-02-16] MEDS ORDERED: PROPOFOL 10 MG/ML 20 ML VIAL IV ONE (14:26)
[2021-02-16] MEDS ORDERED: LIDOCAINE 1% INJ 10MG/ML (20 ML MDV) ONE (14:26)
[2021-02-16] MEDS ORDERED: IV FLUID CONTINUATION 1,000 ML IV ONE (14:29)
--- NOTE | 2021-02-16 15:09 | P.PCN ---
Date of Procedure: 02/16/21 Procedure(s) Performed: PREOPERATIVE DIAGNOSIS: Colitis POSTOPERATIVE DIAGNOSIS: Pancolitis PROCEDURE: Colonoscopy with random biopsy ANESTHESIA: MAC SURGEON: Conner Sharma M.D. SPECIMENS: Random biopsies ENDOSCOPIC PROCEDURE: The patient was placed on the endoscopy table in the left decubitus position. The Olympus colonoscope was inserted into the anus and passed under direct visualization to the base of the cecum. The appendiceal orifice was visualized. From that point the scope was slowly withdrawn inspecting all surfaces carefully. The patient had diffuse colitis evident. There was significant edema and superficial ulcerations of the mucosa throughout the entire colon. There were a few whitish colored plaques noted scattered throughout the colon. There was no significant friability or evidence of recent bleeding. There was no visible diverticulosis. Random biopsies were taken thr oughout the colon. These were sent to pathology. Digital rectal examination was normal. The patient was taken to the recovery room in stable condition per anesthesia guidelines. RECOMMENDATIONS: Await biopsy results. Resume diet.
[2021-02-16] MEDS: SODIUM BICARBONATE TAB 650 MG TAB PO SCH (15:43)
[2021-02-16] MEDS: PANTOPRAZOLE 40 MG TABLET PO SCH (15:43)
--- NOTE | 2021-02-16 15:52 | P.CONS ---
History of Present Illness - Reason for Consult Consult date: 02/16/21 Diarrhea, colitis Requesting physician: Kena Anderson - Chief Complaint Diarrhea - History of Present Illness This is a 75-year-old who presented to the emergency department on 02/10/2021 with complaints of abdominal pain and diarrhea. She has a past medical history including coronary artery disease, diabetes, hypertension and hyperlipidemia. The patient is predominantly speak Beninese but can understand some Icelandic. Apparently the patient has been having frequent loose stools that have been described as yellow and mucousy. She has had the diarrhea now for approximately 1-2 weeks. Apparently he should has a history of C. diff colitis with treatment in the past. She was tested and negative here as well as negative stool cultures. She did have positive lactoferrin. She continues to have multiple loose stools a day. Nonbloody. She is denying abdominal pain at this time. Unsure of last colonoscopy. He has been afebrile. He had a CT of the abdomen and pelvis that showed colitis. She remains on antibiotics of Flagyl and Rocephin. Denying any nausea or vomiting. He is scheduled for colonoscopy today with general surgery. WBC was 9.1 hemoglobin 9.4, platelet count 479,000 sed rate 6 CRP was as high as 4.4 last resulted at 3.0. At this time do not believe she has any previous history of inflammatory bowel disease. Review of Systems REVIEW OF SYSTEMS: CARDIOPULMONARY: No chest pain or shortness of breath. Gastrointestinal: No abdominal pain. No nausea or vomiting. No hematemesis, coffee-ground emesis. No rectal bleeding, or melena. Frequent diarrhea. GENITOURINARY: No dysuria or hematuria. MUSCULOSKELETAL: Reports normal range of motion., Joint pain. SKIN: No rashes. No jaundice. ENDOCRINE: No chills, fevers. No excessive weight gain or loss. No polydipsia or polyuria. PSYCHIATRIC: Unremarkable. NEUROLOGY: No change in mental status. Denies dizziness, headache. ENT: Vision unremarkable. CONSTITUTIONAL: No recent weight loss. No fever, chills, night sweats. Past Medical History Past Medical History: Coronary Artery Disease (CAD), Diabetes Mellitus, Hyperlipidemia, Hypertension Additional Past Medical History / Comment(s): mild, wound care center for left. left broken ankle. History of Any Multi-Drug Resistant Organisms: None Reported Past Surgical History: Cholecystectomy, Heart Catheterization With Stent, Orthopedic Surgery Additional Past Surgical History / Comment(s): hip surgery, cataract sx, left ankle surgery 2020 Past Anesthesia/Blood Transfusion Reactions: No Reported Reaction Date of Last Stent Placement:: 2000 Past Psychological History: No Psychological Hx Reported Smoking Status: Never smoker Past Alcohol Use History: None Reported Past Drug Use History: None Reported Medications and Allergies Home Medications Medication Instructions Recorded Confirmed Type Donepezil [Aricept] 5 mg PO HS 09/14/20 02/10/21 History Latanoprost/Pf [Latanoprost 0.005% 1 drop BOTH EYES HS 09/14/20 02/10/21 History Eye Drop] Sodium Bicarbonate Tab 650 mg PO TID #90 tab 11/20/20 02/10/21 Rx Cholecalciferol (Vitamin D3) 125 mcg PO DAILY 12/25/20 02/10/21 History [Vitamin D3 (125 MCG = 5,000 IU)] Iron Polysaccharide Complex 150 mg PO DAILY 12/25/20 02/10/21 History [Ferrex 150] Metoprolol Succinate (ER) [Toprol 100 mg PO DAILY 12/25/20 02/10/21 History XL] OLANZapine [ZyPREXA] 2.5 mg PO HS 12/25/20 02/10/21 History Pantoprazole Sodium [Protonix] 40 mg PO DAILY 12/25/20 02/10/21 History Simvastatin [Zocor] 20 mg PO HS 12/25/20 02/10/21 History amLODIPine [Norvasc] 5 mg PO DAILY 12/25/20 02/10/21 History Collagenase [Santyl Ointment] 1 applic TOPICAL HS 02/10/21 02/10/21 History Ondansetron Odt [Zofran Odt] 4 mg PO BID PRN 02/10/21 02/10/21 History glipiZIDE [Glucotrol] 2.5 mg PO AC-BID 02/10/21 02/10/21 History Allergies Allergy/AdvReac Type Severity Reaction Status Date / Time No Known Allergies Allergy Verified 02/10/21 20:53 Physical Exam Vitals: Vital Signs Temp Pulse Resp BP Pulse Ox 02/16/21 08:28 97 134/82 02/16/21 05:00 98 F 111 H 16 133/78 98 02/15/21 20:07 98.5 F 102 H 16 129/77 97 02/15/21 20:00 18 02/15/21 12:13 98.1 F 90 16 121/74 97 Intake and Output 02/15/21 02/16/21 02/16/21 22:59 06:59 14:59 Intake Total 200 Output Total 361 Balance 200 -361 Intake: Oral 200 Output: Post Void Residual 361 Other: Voiding Method Diaper Incontinent # Voids 3 4 1 # Bowel Movements 7 General appearance: The patient is alert, oriented, appears in no acute distress. HET: Head is normocephalic and atraumatic. Conjunctiva pink. Sclera anicteric. Neck: Supple without lymphadenopathy. Trachea midline. Heart: S1 S2. Regular rate and rhythm. Lungs: Clear to auscultation. Abdomen: Soft, nontender, nondistended with bowel sounds. No guarding or rig idity. Skin: No rashes. No jaundice. Extremities: Normal skin color and turgor. No pedal edema. Neurological: No focal deficits. Alert and oriented x3. Results CBC & Chem 7: 02/15/21 03:23 02/16/21 06:03 Labs: Abnormal Lab Results - Last 24 Hours (Table) 02/15/21 02/15/21 02/15/21 Range/Units 03:23 12:24 17:24 Sodium (137-145) mmol/L Anion Gap 9.90 L (10.00-18.00) mmol/L BUN 27.6 H (9.0-27.0) mg/dL Creatinine 1.6 H (0.6-1.5) mg/dL Est GFR (CKD-EPI)AfAm 37.0 L (60.0-200.0) Est GFR (CKD-EPI)NonAf 31.9 L (60.0-200.0) Glucose (74-99) mg/dL POC Glucose (mg/dL) 150 H 171 H (75-99) mg/dL Calcium 8.5 L (8.7-10.3) mg/dL Total Bilirubin <0.20 L (0.30-1.20) mg/dL AST 8 L (13-35) U/L ALT <5 L (8-44) U/L C-Reactive Protein 3.00 H (0.00-0.80) mg/dL Total Protein 4.1 L (6.2-8.2) g/dL Albumin 2.1 L (3.8-4.9) g/dL Albumin/Globulin Ratio 1.00 L (1.60-3.17) g/dL 02/15/21 02/16/21 02/16/21 Range/Units 19:43 06:03 07:22 Sodium 135 L (137-145) mmol/L Anion Gap (10.00-18.00) mmol/L BUN 22 H (9.0-27.0) mg/dL Creatinine 1.14 H (0.6-1.5) mg/dL Est GFR (CKD-EPI)AfAm (60.0-200.0) Est GFR (CKD-EPI)NonAf (60.0-200.0) Glucose 122 H (74-99) mg/dL POC Glucose (mg/dL) 143 H 129 H (75-99) mg/dL Calcium (8.7-10.3) mg/dL Total Bilirubin (0.30-1.20) mg/dL AST (13-35) U/L ALT (8-44) U/L C-Reactive Protein (0.00-0.80) mg/dL Total Protein (6.2-8.2) g/dL Albumin (3.8-4.9) g/dL Albumin/Globulin Ratio (1.60-3.17) g/dL Microbiology - Last 24 Hours (Table) 02/11/21 16:57 Stool Culture - Final Stool 02/10/21 17:08 Blood Culture - Preliminary Blood No Growth after 120 hours 02/10/21 17:08 Blood Culture - Preliminary Blood No Growth after [address] scan - abdomen: report reviewed (Diffuse thickening through the ascending colon, transverse colon and descending colon and sigmoid colon to the rectum. Minimal disc abuse inflammatory changes present through this region. Consider colitis. Bowel ischemia could be considered.) Assessment and Plan (1) Colitis Narrative/Plan: Ami 5-year-old female who presented to the emergency department 6 days ago with complaints of abdominal pain who underwent a CT of the abdomen and pelvis showing diffuse colitis throughout the colon. Patient is scheduled to undergo a colonoscopy today with Dr. Sharma. Patient does have a language barrier however was able to answer some questions. She is denying any abdominal pain at this time. Nursing is reporting multiple frequent yellow mucousy stools. She does have a history of C. diff colitis with treatment. Current C. diff and stool cultures have been negative. And a positive lactoferrin. Sed rate was normal at 6, she had mild elevation of her CRP highest at 4.4. She has been afebrile. No evidence of leukocytosis. Concern is for possible inflammatory bowel di sease. At this time we will await colonoscopy report and biopsies. Consider acute colitis such as infectious, or inflammatory versus inflammatory bowel disease such as ulcerative colitis. Current Visit: Yes Status: Acute Code(s): K52.9 - NONINFECTIVE GASTROENTERITIS AND COLITIS, UNSPECIFIED SNOMED Code(s): 24683763 (2) Diarrhea Current Visit: Yes Status: Acute Code(s): R19.7 - DIARRHEA, UNSPECIFIED SNOMED Code(s): 76712433 Plan: 1. Continue symptomatic and supportive care 2. Continue IV antibiotics 3. Await colonoscopy report and biopsies 4. The use of Imodium 2 mg 1-2 tablets as needed every 4-6 hours for diarrhea 5. Recommending holding off any steroids at this time until colonoscopy and biopsy results obtained Thank you for this consultation, we will continue to follow. Dr. Chris Dumont I agree with the dictator's note, documented as a scribe by Mi Dunham.
--- NOTE | 2021-02-16 16:38 | PN ---
PROGRESS NOTE Patient is seen for followup for acute kidney injury. Her renal function has improved; serum creatinine down to 1.14 today. Patient is maintained on lactated Ringer at 50 mL/hour. On examination, blood pressure this morning was 134/82, heart rate 97 per minute. Patient is afebrile. EXAMINATION OF THE HEART: S1 and S2. EXAMINATION OF LUNGS: Decreased breath sounds at the bases. Abdomen is soft, non-tender. Examination of lower extremities shows no significant edema. Labs show sodium 135, potassium 3.6, BUN 22, creatinine 1.14. ASSESSMENT: 1. Acute kidney injury, prerenal, currently improving. Continue with the IV fluids at 50 mL/hour. 2. Chronic kidney disease, stage 3; baseline creatinine 1.3. Etiology diabetic nephropathy. 3. Cardiomyopathy, ejection fraction 45% to 0%. 4. Klebsiella pneumoniae urinary tract infection. 5. Anemia, currently stable. No active bleeding noted. 6. Left lower lobe pneumonia. PLAN: Continue to encourage increased oral intake. Continue with the Ringer lactate at 50 mL/hour. Repeat labs in a.m. MMODL / IJN: [id number] /
[2021-02-16 17:10] LABS: Glucose,Whole Blood 167 mg/dL (75-99)
--- NOTE | 2021-02-16 17:41 | P.PN ---
Subjective Progress Note Date: 02/16/21 (delayed charting seen at 0900) Principal diagnosis: diarrhea Patient is a 75-year-old female with a history of C. diff, diabetes, hypertension, coronary artery disease, and dementia and who presented with complaints of diarrhea. Patient was admitted for colitis. Recurrent C. diff testing was negative. She was started on antibiotics and surgery was consulted. Patient seen and examined at bedside. She complains of not being able to urinate. She denies any nausea, vomiting. She was prepped for colonoscopy last night that she is unsure how her diarrhea is doing. She denies any abdominal pain. General: non toxic, no distress, appears older than stated age Derm: warm, dry Head: atraumatic, normocephalic, symmetric Eyes: EOMI, no lid lag, anicteric sclera Mouth: no lip lesion, mucus membranes moist Cardiovascular: S1S2 reg, no murmur, positive posterior tibial pulse bilateral, Lungs: CTA bilateral, no rhonchi, no rales , no accessory muscle use Abdominal: soft, nontender to palpation, no guarding, no appreciable organomegaly Ext: no gross muscle atrophy, no edema, no contractures, muscle wasting bilateral lower extremities Neuro: CN II-XI grossly intact, no focal neuro deficits Psych: Alert, oriented, appropriate affect Acute pancolitis -Nonbloody -Stool culture was no gradient today, fecal lactoferrin positive, C. diff negative -Continue with Rocephin and Flagyl -Anticipate colonoscopy today with general surgery -Consult GI Acute kidney injury on chronic kidney disease stage III Klebsiella UTI - rocephin -Nephrology recommendations -Avoid nephrotoxic agents -Continue with small amounts of IV fluids -Follow creatinine Diabetes mellitus type 2 without long-term use of insulin and diabetic neuropathy -Hold Glucotrol -Sliding-scale insulin Dementia and bipolar disorder -Continue Zyprexa -Aircept- on hold due to diarreah -Safe and supportive environment Peptic ulcer disease - PPI Hypertension controlled -Patient's home metoprolol dose has been decreased from 100-50 daily -Off Norvasc -Follow blood pressures Severe PCM - dietitian recs - supplements Chronic wound -Continue with Santyl Cardiomyopathy -Ejection fraction 45-50% -No signs of fluid overload -Continue with metoprolol SIRS sepsis ruled out Anticipate home soon - will need to follow-up outpatinet with biopsy Active Medications Generic Name Dose Route Start Last Admin Trade Name Freq PRN Reason Stop Dose Admin Acetaminophen 650 mg 02/10/21 17:21 02/15/21 17:56 Acetaminophen Tab 325 Mg Tab PO 650 mg Q6HR PRN Administration Mild Pain or Fever > 100.5 Atorvastatin Calcium 10 mg 02/11/21 21:00 02/15/21 20:46 Atorvastatin 10 Mg Tab PO 10 mg HS ANNMARIE Administration Collagenase 1 applic 02/13/21 19:00 02/15/21 20:46 Collagenase 250 Unit/Gm Ointment 30 Gm Tube TOPICAL 1 applic 1900 ANNMARIE Administration Protocol Darbepoetin Aba 40 mcg 02/11/21 12:30 02/11/21 17:05 Darbepoetin Aba 40 Mcg/0.4 Ml Syringe SQ 40 mcg Q7D ANNMARIE Administration Lactated Ringer's 1,000 mls @ 50 mls/hr 02/11/21 08:30 02/16/21 00:02 Lactated Ringers IV 50 mls/hr .Q20H ANNMARIE Administration Ceftriaxone Sodium 1 gm/ 50 mls @ 100 mls/hr 02/11/21 17:00 02/16/21 17:06 Sodium Chloride IVPB 100 mls/hr Q24H ANNMARIE Administration Metronidazole 500 mg/ IV 100 mls @ 100 mls/hr 02/11/21 16:00 02/16/21 15:44 Solution IVPB 100 mls/hr Q8HR ANNMARIE Administration Insulin Aspart 0 unit 02/11/21 07:30 02/16/21 17:08 Insulin Aspart (Novolog) 100 Unit/Ml Vial SQ 2 unit ACHS ANNMARIE Administration Protocol Latanoprost 1 drops 02/13/21 21:00 02/15/21 20:46 Latanoprost 0.005% Ophth Drops 2.5 Ml Btl BOTH EYES 1 drops HS ANNMARIE Administration Metoprolol Succinate 50 mg 02/12/21 09:00 02/16/21 08:29 Metoprolol Succinate (Er) 50 Mg Tab.Er.24h PO 50 mg DAILY ANNMARIE Administration Naloxone HCl 0.2 mg 02/10/21 17:21 Naloxone 0.4 Mg/Ml 1 Ml Vial IV Q2M PRN Opioid Reversal Olanzapine 2.5 mg 02/10/21 23:00 02/15/21 20:46 Olanzapine 2.5 Mg Tab PO 2.5 mg HS ANNMARIE Administration Ondansetron HCl 4 mg 02/10/21 17:21 Ondansetron 4 Mg/2 Ml Vial IVP Q8HR PRN Nausea And Vomiting Pantoprazole Sodium 40 mg 02/11/21 09:00 02/16/21 15:43 Pantoprazole 40 Mg Tablet PO 40 mg DAILY ANNMARIE Administration Sodium Bicarbonate 650 mg 02/14/21 09:00 02/16/21 15:43 Sodium Bicarbonate Tab 650 Mg Tab PO 650 mg DAILY ANNMARIE Administration Objective - Vital Signs Vital signs: Vital Signs Temp 98.1 F 02/16/21 11:17 Pulse 110 H 02/16/21 11:17 Resp 16 02/16/21 11:17 BP 145/83 02/16/21 11:17 Pulse Ox 100 02/16/21 11:17 Intake & Output 02/15/21 02/16/21 02/16/21 18:59 06:59 18:59 Intake Total 240 200 100 Output Total 361 Balance 240 200 -261 Intake: IV 100 Oral 240 200 Output: Post Void Residual 361 Other: Voiding Method Diaper Diaper Diaper Incontinent Incontinent Incontinent # Voids 3 4 1 # Bowel Movements 7 - Labs CBC & Chem 7: 02/15/21 03:23 02/16/21 06:03 Labs: Abnormal Lab Results - Last 24 Hours (Table) 02/15/21 02/16/21 02/16/21 Range/Units 19:43 06:03 07:22 Sodium 135 L (137-145) mmol/L BUN 22 H (7-17) mg/dL Creatinine 1.14 H (0.52-1.04) mg/dL Glucose 122 H (74-99) mg/dL POC Glucose (mg/dL) 143 H 129 H (75-99) mg/dL 02/16/21 02/16/21 Range/Units 11:19 17:07 Sodium (137-145) mmol/L BUN (7-17) mg/dL Creatinine (0.52-1.04) mg/dL Glucose (74-99) mg/dL POC Glucose (mg/dL) 146 H 167 H (75-99) mg/dL Microbiology - Last 24 Hours (Table) 02/11/21 16:57 Stool Culture - Final Stool 02/10/21 17:08 Blood Culture - Preliminary Blood No Growth after 120 hours 02/10/21 17:08 Blood Culture - Preliminary Blood No Growth after 120 hours
[2021-02-16 20:42] LABS: Glucose,Whole Blood 163 mg/dL (75-99)
[2021-02-16] MEDS: ATORVASTATIN 10 MG TAB PO SCH (21:30)
[2021-02-16] MEDS: OLANZapine 2.5 MG TAB PO SCH (21:30)
[2021-02-16] MEDS: LATANOPROST 0.005% OPHTH DROPS 2.5 ML BTL BOTH EYES SCH (21:31)
[2021-02-16] MEDS: COLLAGENASE 250 UNIT/GM OINTMENT 30 GM TUBE TOPICAL SCH (21:32)
[2021-02-17 05:01] LABS: HCT 32.7 % (34.0-46.0); HGB 9.6 gm/dL (11.4-16.0); Hypochromasia Marked; MCH 24.9 pg (25.0-35.0); MCHC 29.4 g/dL (31.0-37.0); MCV 84.6 fL (80.0-100.0); Platelet Count 464 k/uL (150-450); RBC 3.86 m/uL (3.80-5.40); RDW 14.7 % (11.5-15.5)
[2021-02-17] MEDS: LACTATED RINGERS 1,000 ML IV SCH ×2 (06:02→18:18)
[2021-02-17 06:11] LABS: Band Neutrophils % 3 %; Eosinophils # (M) 0.14 k/uL (0-0.7); Lymphocytes # (M) 1.68 k/uL (1.0-4.8); Metamyelocytes # (M) 0.21 k/uL (0); Metamyelocytes % 3 %; Monocytes # (M) 0.56 k/uL (0-1.0); Myelocytes # (M) 0.07 k/uL (0); Myelocytes % 1 %; Neutrophils % (M) 60 %; Nucleated Red Blood Cells 0 /100 WBC (0-0); Total Cells Counted 200
[2021-02-17 07:07] LABS: Glucose,Whole Blood 138 mg/dL (75-99)
[2021-02-17] MEDS: metroNIDAZOLE-NS PMX 500 MG in SALINE 1 100ML.BAG IVPB SCH ×2 (09:27→16:57)
[2021-02-17] MEDS: INSULIN ASPART (NovoLOG) 100 UNIT/ML VIAL SQ SCH ×4 (09:30→22:00)
[2021-02-17] MEDS: PANTOPRAZOLE 40 MG TABLET PO SCH (09:30)
[2021-02-17] MEDS: METOPROLOL SUCCINATE (ER) 50 MG TAB.ER.24H PO SCH (09:31)
[2021-02-17] MEDS: SODIUM BICARBONATE TAB 650 MG TAB PO SCH (09:31)
[2021-02-17] MEDS ORDERED: LOPERAMIDE 2 MG CAP PO PRN (09:55)
[2021-02-17] MEDS: methylPREDNISolone SOD SUCCI 40 MG/ML 1 ML VIAL IV SCH ×2 (11:15→16:57)
[2021-02-17 11:49] LABS: Glucose,Whole Blood 113 mg/dL (75-99)
--- NOTE | 2021-02-17 11:57 | P.PN ---
Subjective Progress Note Date: 02/17/21 Principal diagnosis: Colitis 75-year-old female was admitted to the hospital for abdominal pain and diarrhea. On admission she had a CT of the abdomen and pelvis that showed he is thickening through the ascending colon, transverse colon, and descending colon as well as sigmoid colon to the rectum. Minimal diffuse inflammatory changes present through this region. Consider colitis such as ulcerative colitis. Bowel ischemia could be considered. Yesterday she underwent colonoscopy with Dr. Sharma that showed diffuse colitis. There was significant edema and superficial ulcerations of the mucosa throughout the entire colon. There were a few whitish colored plaques are noted scattered throughout the colon. No significant friability or evidence of recent bleeding. There was no visible diverticulosis and random biopsies were taken. Currently biopsies are pending. Patient reportedly has not had any bowel movements today. She is denying any blood in her stool or abdominal pain. She denies nausea or vomiting. She remains on ceftriaxone and Flagyl. She is afebrile. WBC 7.0 hemoglobin 9.6. Objective - Vital Signs Vital signs: Vital Signs Temp 97.9 F 02/17/21 04:46 Pulse 96 02/17/21 04:46 Resp 16 02/16/21 21:00 BP 150/78 02/17/21 04:46 Pulse Ox 98 02/17/21 04:46 Intake & Output 02/16/21 02/17/21 02/17/21 18:59 06:59 18:59 Intake Total 220 600 Output Total 361 3 367 Balance -141 597 -367 Intake: IV 100 Intake, IV Titration 500 Amount Lactated Ringers 1,000 ml 400 @ 50 mls/hr IV .Q20H ANNMARIE Rx#:[id number] metroNIDAZOLE-NS PMX 500 100 mg In Saline 1 100ml.bag @ 100 mls/hr IVPB Q8HR ANNMARIE Rx#:[id number] Oral 120 100 Output: Post Void Residual 361 367 Urine/Stool Mix 3 Other: Voiding Method Diaper Diaper Incontinent Incontinent Incontinent # Voids 1 1 # Bowel Movements 3 - Exam General appearance: The patient is alert, oriented, appears in no acute distress. HET: Head is normocephalic and atraumatic. Conjunctiva pink. Sclera anicteric. Neck: Supple without lymphadenopathy. Abdomen: Soft, nontender, nondistended with bowel sounds. No guarding or rigidity. Extremities: Normal skin color and turgor. No pedal edema Skin: No rashes, no jaundice Neurological: No focal deficits. Alert and oriented -3. - Labs CBC & Chem 7: 02/17/21 04:15 02/16/21 06:03 Labs: Abnormal Lab Results - Last 24 Hours (Table) 02/16/21 02/16/21 02/16/21 Range/Units 11:19 17:07 20:41 Hgb (11.4-16.0) gm/dL Hct (34.0-46.0) % MCH (25.0-35.0) pg MCHC (31.0-37.0) g/dL Plt Count (150-450) k/uL Metamyelocytes # (Man) (0) k/uL Myelocytes # (Manual) (0) k/uL POC Glucose (mg/dL) 146 H 167 H 163 H (75-99) mg/dL 02/17/21 02/17/21 Range/Units 04:15 07:05 Hgb 9.6 L (11.4-16.0) gm/dL Hct 32.7 L (34.0-46.0) % MCH 24.9 L (25.0-35.0) pg MCHC 29.4 L (31.0-37.0) g/dL Plt Count 464 H (150-450) k/uL Metamyelocytes # (Man) 0.21 H (0) k/uL Myelocytes # (Manual) 0.07 H (0) k/uL POC Glucose (mg/dL) 138 H (75-99) mg/dL Microbiology - Last 24 Hours (Table) 02/10/21 17:08 Blood Culture - Final Blood No Growth after 144 hours 02/10/21 17:08 Blood Culture - Final Blood No Growth after 144 hours 02/11/21 16:57 Stool Culture - Final Stool Assessment and Plan (1) Colitis Narrative/Plan: Ami 5-year-old female who presented to the emergency department 6 days ago with complaints of abdominal pain who underwent a CT of the abdomen and pelvis showing diffuse colitis throughout the colon. Patient is scheduled to undergo a colonoscopy today with Dr. Sharma. Patient does have a language barrier however was able to answer some questions. She is denying any abdominal pain at this time. Nursing is reporting multiple frequent yellow mucousy stools. She does have a history of C. diff colitis with treatment. Current C. diff and stool cultures have been negative. And a positive lactoferrin. Sed rate was normal at 6, she had mild elevation of her CRP highest at 4.4. She has been afebrile. No evidence of leukocytosis. Concern is for possible inflammatory bowel disease. At this time we will await colonoscopy report and biopsies. Consider acute colitis such as infectious, or inflammatory versus inflammatory bowel disease such as ulcerative colitis. Patient underwent colonoscopy yesterday with Dr. Sharma showing diffuse colitis. There was significant edema and superficial ulcerations of the mucosa throughout the entire colon. There were a few whitish colored plaques are noted scattered throughout the colon. No significant friability or evidence of recent bleeding. There was no visible diverticulosis and random biopsies were taken. Currently biopsies are pending. Need to consider possibility of inflammatory bowel disease such as Crohn's colitis. Of course we'll need to await biopsy results. However at this time we will start the patient on Solu-Medrol 20 mg IV every 8 hours. Recommend transition to oral prednisone on discharge 40 mg taper dose down by 10 mg weekly. Current Visit: Yes Status: Acute Code(s): K52.9 - NONINFECTIVE GASTROENTERITIS AND COLITIS, UNSPECIFIED SNOMED Code(s): 80300854 (2) Diarrhea Current Visit: Yes Status: Acute Code(s): R19.7 - DIARRHEA, UNSPECIFIED SNOMED Code(s): 64015319 Plan: 1. Continue symptomatic and supportive care 2. Continue IV antibiotics 3. Await biopsy results 4. May use of Imodium 2 mg 1-2 tablets as needed every 4-6 hours for diarrhea 5. Start patient on Solu-Medrol 20 mg IV every 8 hours, transition to oral prednisone for discharge 40mg daily with taper of 10mg per week 6. Patient to follow-up with Dr. Dumont in 1-2 weeks for biopsy results Thank you for this consultation, we will continue to follow. Dr. Chris Dumont I agree with the dictator's note, documented as a scribe by Mi Dunham.
--- NOTE | 2021-02-17 12:05 | P.PN ---
<Tri Morales - Last Filed: 02/17/21 12:00> Subjective Progress Note Date: 02/17/21 CHIEF COMPLAINT: Abdominal pain and diarrhea HISTORY OF PRESENT ILLNESS: Surgical service is following regards to patient's colitis. Patient is status post colonoscopy which demonstrated evidence of adame colitis with evidence of significant edema and superficial ulceration of the mucosal throughout the entire colon and evidence of a few whitish plaques. Random biopsies completed. GI service has added IV steroids. Afebrile. WBC 7 Hgb 9.6. Patient currently on regular diet. Patient having bowel movements. No blood reported in the stools. Patient does have lower abdominal pain. Nursing staff will be getting a bladder scan. Stool studies negative. Currently on IV antibiotics. PHYSICAL EXAM: VITAL SIGNS: Reviewed. GENERAL: Well-developed in no acute distress. HEENT: No sclera icterus. Extraocular movements grossly intact. Moist buccal mucosa. Head is atraumatic, normocephalic. ABDOMEN: Soft. Nondistended. Tender with palpation of the lower abdomen and suprapubic area. NEUROLOGIC: Awake and alert ASSESSMENT: 1. Abdominal pain with diarrhea and black stools. Status post colonoscopy 2. Colitis and concerns for ulcerative colitis noted on computed tomography scan PLAN: -Continue regular diet -Continue IV antibiotics -Continue supportive care -GI service starting IV steroids Physician Harvest Manager note has been reviewed by physician. Signing provider agrees with the documented findings, assessment, and plan of care. Objective - Vital Signs Vital signs: Vital Signs Temp 98.4 F 02/17/21 11:13 Pulse 104 H 02/17/21 11:13 Resp 16 02/17/21 11:13 BP 145/74 02/17/21 11:13 Pulse Ox 100 02/17/21 11:13 Intake & Output 02/16/21 02/17/21 02/17/21 18:59 06:59 18:59 Intake Total 220 600 Output Total 361 3 367 Balance -141 597 -367 Intake: IV 100 Intake, IV Titration 500 Amount Lactated Ringers 1,000 ml 400 @ 50 mls/hr IV .Q20H ANNMARIE Rx#:[id number] metroNIDAZOLE-NS PMX 500 100 mg In Saline 1 100ml.bag @ 100 mls/hr IVPB Q8HR ANNMARIE Rx#:[id number] Oral 120 100 Output: Post Void Residual 361 367 Urine/Stool Mix 3 Other: Voiding Method Diaper Diaper Incontinent Incontinent Incontinent # Voids 1 1 # Bowel Movements 3 - Labs CBC & Chem 7: 02/17/21 04:15 02/16/21 06:03 Labs: Abnormal Lab Results - Last 24 Hours (Table) 02/16/21 02/16/21 02/17/21 Range/Units 17:07 20:41 04:15 Hgb 9.6 L (11.4-16.0) gm/dL Hct 32.7 L (34.0-46.0) % MCH 24.9 L (25.0-35.0) pg MCHC 29.4 L (31.0-37.0) g/dL Plt Count 464 H (150-450) k/uL Metamyelocytes # (Man) 0.21 H (0) k/uL Myelocytes # (Manual) 0.07 H (0) k/uL POC Glucose (mg/dL) 167 H 163 H (75-99) mg/dL 02/17/21 02/17/21 Range/Units 07:05 11:42 Hgb (11.4-16.0) gm/dL Hct (34.0-46.0) % MCH (25.0-35.0) pg MCHC (31.0-37.0) g/dL Plt Count (150-450) k/uL Metamyelocytes # (Man) (0) k/uL Myelocytes # (Manual) (0) k/uL POC Glucose (mg/dL) 138 H 113 H (75-99) mg/dL Microbiology - Last 24 Hours (Table) 02/10/21 17:08 Blood Culture - Final Blood No Growth after 144 hours 02/10/21 17:08 Blood Culture - Final Blood No Growth after 144 hours 02/11/21 16:57 Stool Culture - Final Stool <[email or web address] - Last Filed: 02/17/21 16:11> Subjective as above. Patient still having mucousy stools. No pain. Await biopsy results. Agree with GI recommendations. Objective - Vital Signs Vital signs: Vital Signs Temp 98.4 F 02/17/21 11:13 Pulse 104 H 02/17/21 11:13 Resp 16 02/17/21 11:13 BP 145/74 02/17/21 11:13 Pulse Ox 100 02/17/21 11:13 Intake & Output 02/16/21 02/17/21 02/17/21 18:59 06:59 18:59 Intake Total 220 600 Output Total 361 3 367 Balance -141 597 -367 Weight 56.699 kg Intake: IV 100 Intake, IV Titration 500 Amount Lactated Ringers 1,000 ml 400 @ 50 mls/hr IV .Q20H ANNMARIE Rx#:[id number] metroNIDAZOLE-NS PMX 500 100 mg In Saline 1 100ml.bag @ 100 mls/hr IVPB Q8HR ANNMARIE Rx#:[id number] Oral 120 100 Output: Post Void Residual 361 367 Urine/Stool Mix 3 Other: Voiding Method Diaper Diaper Incontinent Incontinent Incontinent # Voids 1 1 # Bowel Movements 3 1 - Labs CBC & Chem 7: 02/17/21 04:15 02/16/21 06:03 Labs: Abnormal Lab Results - Last 24 Hours (Table) 02/16/21 02/16/21 02/17/21 Range/Units 17:07 20:41 04:15 Hgb 9.6 L (11.4-16.0) gm/dL Hct 32.7 L (34.0-46.0) % MCH 24.9 L (25.0-35.0) pg MCHC 29.4 L (31.0-37.0) g/dL Plt Count 464 H (150-450) k/uL Metamyelocytes # (Man) 0.21 H (0) k/uL Myelocytes # (Manual) 0.07 H (0) k/uL POC Glucose (mg/dL) 167 H 163 H (75-99) mg/dL 02/17/21 02/17/21 Range/Units 07:05 11:42 Hgb (11.4-16.0) gm/dL Hct (34.0-46.0) % MCH (25.0-35.0) pg MCHC (31.0-37.0) g/dL Plt Count (150-450) k/uL Metamyelocytes # (Man) (0) k/uL Myelocytes # (Manual) (0) k/uL POC Glucose (mg/dL) 138 H 113 H (75-99) mg/dL Microbiology - Last 24 Hours (Table) 02/10/21 17:08 Blood Culture - Final Blood No Growth after 144 hours 02/10/21 17:08 Blood Culture - Final Blood No Growth after 144 hours Assessment and Plan (1) Colitis Current Visit: Yes Status: Acute Code(s): K52.9 - NONINFECTIVE GASTROENTERITIS AND COLITIS, UNSPECIFIED SNOMED Code(s): 61229725
[2021-02-17 14:04] VITALS: BMI 21.4
--- NOTE | 2021-02-17 16:06 | P.PN ---
<Stewart Jenkins - Last Filed: 02/17/21 15:18> Subjective Progress Note Date: 02/17/21 Principal diagnosis: Abdominal pain and Diarrhea resulting in diagnosis of diffuse colitis Hospital course: Patient is a 75-year-old female with a history of C. diff, diabetes, hypertension, coronary artery disease, and dementia and who presented to the hospital on 02/10/21 with complaints of abdominal pain and diarrhea. She was seen and fully evaluated in the emergency department resulting in diagnosis of acute pancolitis, UTI, and acute kidney injury. CT abdomen and pelvis revealed colitis with mild ascites. She was found to have an elevated WBC count of 18.2, hemoglobin 10.0, thrombocytosis with a platelet count of 526, hyponatremia with sodium of 133, hyperkalemia with potassium of 5.4, and an acute kidney injury with BUN of 42, creatinine 2.51, and GFR of 18. Urinalysis positive for infection with urine culture positive for Klebsiella pneumoniae and E. coli. Blood cultures negative showing no growth 144 hours. Stool cultures negative for C. diff and positive for fecal lactoferrin. Patient was started on IV antibiotics Rocephin and Flagyl and was admitted under our services with consultation to general surgery, nephrology, and gastroenterology. On 02/16/21 , pt underwent a colonoscopy which revealed diffuse colitis with significant edema and superficial ulcerations of the mucosa throughout the entire colon. Mu ltiple biopsies were taken during colonoscopy and sent to lab for analysis. Physical examination: Patient seen and examined at bedside. She was resting comfortably, denied having any complaints or pain. She reports that she has been unable to urinate since last night. She has been tolerating oral intake and denies any complaints of nausea or vomiting. Patient denies currently experiencing any diarrhea or abdominal pain. Bladder scan being completed. Patient remains on Flagyl and Rocephin and being started on steroids with SoluMedrol 20 mg IVP every 8 hours. General: non toxic, no distress, appears at stated age Derm: warm, dry. Dressing clean dry and intact to left ankle. Head: atraumatic, normocephalic, symmetric Eyes: EOMI, no lid lag, anicteric sclera Mouth: no lip lesion, mucus membranes moist Cardiovascular: S1S2 reg, no murmur, positive posterior tibial pulse bilateral, Lungs: CTA bilateral, no rhonchi, no rales , no accessory muscle use Abdominal: soft, nontender to palpation, no guarding, no appreciable organomegaly Ext: no gross muscle atrophy, no edema, no contractures Neuro: CN II-XI grossly intact, no focal neuro deficits Psych: Alert, oriented, appropriate affect Assessment and plan of care: Acute pancolitis -Nonbloody -Stool culture was no gradient today, fecal lactoferrin positive, C. diff negative -Continue with Rocephin and Flagyl -Colonoscopy completed with reports of evidence of diffuse colitis with significant edema and superficial ulcerations of the mucosa throughout the entire colon. Multiple biopsies taken and sent to lab for analysis. -GI following recommending starting the patient on Solu-Medrol 20 mg IV every 8 hours and transition to oral prednisone upon discharge and for patient to follow up outpatient with Dr. Dumont in 1-2 weeks -Follow up outpatient with gastroenterology for biopsy results Acute kidney injury on chronic kidney disease stage III, improved Klebsiella UTI -Continue treatment with IV antibiotics: Rocephin -Nephrology recommendations -Avoid nephrotoxic agents -Continue with small amounts of IV fluids -Follow creatinine Diabetes mellitus type 2 without long-term use of insulin and diabetic neuropathy -Hold Glucotrol -Sliding-scale insulin Anemia of chronic disease, hemoglobin stable at 9.6 above baseline Dementia and bipolar disorder -Continue Zyprexa -Aircept- on hold due to diarreah -Safe and supportive environment Peptic ulcer disease - PPI Hypertension controlled -Patient's home metoprolol dose has been decreased from 100-50 daily -Off Norvasc -Follow blood pressures Severe protein calorie malnutrition - dietitian recs -Regular diet, encourage oral intake and use of oral supplements Glucerna Chronic wound left ankle -Continue with Santyl and wound care Cardiomyopathy -Ejection fraction 45-50% -No signs of fluid overload -Continue with metoprolol SIRS sepsis ruled out CODE STATUS: Full code DVT prophylaxis: SCDs Discussed with: Patient and RN, patient's -[place], and patient's daughter Grecia Anticipated discharge date: 1-[address]: Home A total of 45 minutes was spent on the care of this complex patient more than 50% of the time was spent in counseling and care coordination. Objective - Vital Signs Vital signs: Vital Signs Temp 97.9 F 02/17/21 04:46 Pulse 96 02/17/21 04:46 Resp 16 02/16/21 21:00 BP 150/78 02/17/21 04:46 Pulse Ox 98 02/17/21 04:46 Intake & Output 02/16/21 02/17/21 02/17/21 18:59 06:59 18:59 Intake Total 220 600 Output Total 361 3 367 Balance -141 597 -367 Intake: IV 100 Intake, IV Titration 500 Amount Lactated Ringers 1,000 ml 400 @ 50 mls/hr IV .Q20H ANNMARIE Rx#:[id number] metroNIDAZOLE-NS PMX 500 100 mg In Saline 1 100ml.bag @ 100 mls/hr IVPB Q8HR ANNMARIE Rx#:[id number] Oral 120 100 Output: Post Void Residual 361 367 Urine/Stool Mix 3 Other: Voiding Method Diaper Diaper Incontinent Incontinent # Voids 1 # Bowel Movements 3 - Labs CBC & Chem 7: 02/17/21 04:15 02/16/21 06:03 Labs: Abnormal Lab Results - Last 24 Hours (Table) 02/16/21 02/16/21 02/16/21 Range/Units 11:19 17:07 20:41 Hgb (11.4-16.0) gm/dL Hct (34.0-46.0) % MCH (25.0-35.0) pg MCHC (31.0-37.0) g/dL Plt Count (150-450) k/uL Metamyelocytes # (Man) (0) k/uL Myelocytes # (Manual) (0) k/uL POC Glucose (mg/dL) 146 H 167 H 163 H (75-99) mg/dL 02/17/21 02/17/21 Range/Units 04:15 07:05 Hgb 9.6 L (11.4-16.0) gm/dL Hct 32.7 L (34.0-46.0) % MCH 24.9 L (25.0-35.0) pg MCHC 29.4 L (31.0-37.0) g/dL Plt Count 464 H (150-450) k/uL Metamyelocytes # (Man) 0.21 H (0) k/uL Myelocytes # (Manual) 0.07 H (0) k/uL POC Glucose (mg/dL) 138 H (75-99) mg/dL Microbiology - Last 24 Hours (Table) 02/10/21 17:08 Blood Culture - Final Blood No Growth after 144 hours 02/10/21 17:08 Blood Culture - Final Blood No Growth after 144 hours 02/11/21 16:57 Stool Culture - Final Stool <Kena Anderson A - Last Filed: 02/17/21 17:42> Subjective Stewart Jenkins COMMUNICATIONS WRITER rendered care for this patient independently, reviewed the findings and plan as documented in the note above. I did not physically speak with or examine the patient on this date. Objective - Vital Signs Vital signs: Vital Signs Temp 98.4 F 02/17/21 11:13 Pulse 104 H 02/17/21 11:13 Resp 16 02/17/21 11:13 BP 145/74 02/17/21 11:13 Pulse Ox 100 02/17/21 11:13 Intake & Output 02/16/21 02/17/21 02/17/21 18:59 06:59 18:59 Intake Total 220 600 Output Total 361 3 367 Balance -141 597 -367 Weight 56.699 kg Intake: IV 100 Intake, IV Titration 500 Amount Lactated Ringers 1,000 ml 400 @ 50 mls/hr IV .Q20H ANNMARIE Rx#:[id number] metroNIDAZOLE-NS PMX 500 100 mg In Saline 1 100ml.bag @ 100 mls/hr IVPB Q8HR ANNMARIE Rx#:[id number] Oral 120 100 Output: Post Void Residual 361 367 Urine/Stool Mix 3 Other: Voiding Method Diaper Diaper Incontinent Incontinent Incontinent # Voids 1 1 # Bowel Movements 3 1 - Labs CBC & Chem 7: 02/17/21 04:15 02/16/21 06:03 Labs: Abnormal Lab Results - Last 24 Hours (Table) 02/16/21 02/17/21 02/17/21 Range/Units 20:41 04:15 07:05 Hgb 9.6 L (11.4-16.0) gm/dL Hct 32.7 L (34.0-46.0) % MCH 24.9 L (25.0-35.0) pg MCHC 29.4 L (31.0-37.0) g/dL Plt Count 464 H (150-450) k/uL Metamyelocytes # (Man) 0.21 H (0) k/uL Myelocytes # (Manual) 0.07 H (0) k/uL POC Glucose (mg/dL) 163 H 138 H (75-99) mg/dL 02/17/21 02/17/21 Range/Units 11:42 16:55 Hgb (11.4-16.0) gm/dL Hct (34.0-46.0) % MCH (25.0-35.0) pg MCHC (31.0-37.0) g/dL Plt Count (150-450) k/uL Metamyelocytes # (Man) (0) k/uL Myelocytes # (Manual) (0) k/uL POC Glucose (mg/dL) 113 H 175 H (75-99) mg/dL Microbiology - Last 24 Hours (Table) 02/10/21 17:08 Blood Culture - Final Blood No Growth after 144 hours 02/10/21 17:08 Blood Culture - Final Blood No Growth after 144 hours
[2021-02-17 17:15] LABS: Glucose,Whole Blood 175 mg/dL (75-99)
--- NOTE | 2021-02-17 18:58 | PN ---
PROGRESS NOTE Patient is seen for followup for acute kidney injury. Her renal function has improved. We do not have labs from today. Creatinine yesterday was 1.14. Patient is currently resting comfortably. She denies any significant complaints. On examination today, blood pressure 145/74, heart rate 104 per minute. She is afebrile. EXAMINATION OF THE HEART: S1 and S2. EXAMINATION OF LUNGS: Bilateral breath sounds are heard. Abdomen is soft, non-tender. Examination of lower extremities shows trace edema. ELECTRONICS TEST ENGINEER EXAM: Grossly intact. Labs are not available from today. ASSESSMENT: 1. Acute kidney injury, nonoliguric, currently improved, mostly prerenal, maintained on IV fluids at 50 mL/hour. 2. Chronic kidney disease, stage 3. Baseline creatinine 1.3 secondary to diabetic kidney disease. 3. Cardiomyopathy, ejection fraction 45% to 50%. 4. Klebsiella pneumoniae urinary tract infection. 5. Left lower lobe pneumonia. 6. Anemia with no active bleeding noted, maintained on Aranesp. PLAN: May continue with the current IV fluids. Repeat labs in a.m. Consider discontinuation of sodium bicarb if metabolic acidosis has resolved. MMODL / IJN: [id number] /
[2021-02-17 20:22] LABS: Glucose,Whole Blood 178 mg/dL (75-99)
[2021-02-17] MEDS: ATORVASTATIN 10 MG TAB PO SCH (21:59)
[2021-02-17] MEDS: LATANOPROST 0.005% OPHTH DROPS 2.5 ML BTL BOTH EYES SCH (22:00)
[2021-02-17] MEDS: OLANZapine 2.5 MG TAB PO SCH (22:00)
[2021-02-17] MEDS: COLLAGENASE 250 UNIT/GM OINTMENT 30 GM TUBE TOPICAL SCH (22:31)
[2021-02-18] MEDS: metroNIDAZOLE-NS PMX 500 MG in SALINE 1 100ML.BAG IVPB SCH ×2 (00:30→09:37)
[2021-02-18] MEDS: methylPREDNISolone SOD SUCCI 40 MG/ML 1 ML VIAL IV SCH ×2 (00:33→09:42)
[2021-02-18 05:56] LABS: HCT 32.7 % (34.0-46.0); HGB 9.5 gm/dL (11.4-16.0); Hypochromasia Marked; MCHC 29.1 g/dL (31.0-37.0); MCV 86.1 fL (80.0-100.0); Mean Platelet Volume 7.2; Platelet Count 420 k/uL (150-450); RDW 14.9 % (11.5-15.5); WBC 4.9 k/uL (3.8-10.6)
[2021-02-18 07:12] LABS: Glucose,Whole Blood 185 mg/dL (75-99)
[2021-02-18] MEDS: LACTATED RINGERS 1,000 ML IV SCH (09:36)
[2021-02-18] MEDS: INSULIN ASPART (NovoLOG) 100 UNIT/ML VIAL SQ SCH ×2 (09:37→14:06)
[2021-02-18] MEDS: METOPROLOL SUCCINATE (ER) 50 MG TAB.ER.24H PO SCH (09:39)
[2021-02-18] MEDS: PANTOPRAZOLE 40 MG TABLET PO SCH (09:39)
[2021-02-18] MEDS: SODIUM BICARBONATE TAB 650 MG TAB PO SCH (09:39)
--- NOTE | 2021-02-18 10:31 | P.PN ---
Subjective Principal diagnosis: Colitis 75-year-old female was admitted to the hospital for abdominal pain and diarrhea. On admission she had a CT of the abdomen and pelvis that showed he is thickening through the ascending colon, transverse colon, and descending colon as well as sigmoid colon to the rectum. Minimal diffuse inflammatory changes present through this region. Consider colitis such as ulcerative colitis. Bowel ischemia could be considered. Yesterday she underwent colonoscopy with Dr. Sharma that showed diffuse colitis. There was significant edema and superficial ulcerations of the mucosa throughout the entire colon. There were a few whitish colored plaques are noted scattered throughout the colon. No significant friability or evidence of recent bleeding. There was no visible diverticulosis and random biopsies were taken. Currently biopsies are pending. Patient had 2 loose bowel movements yesterday. None so far today.. She is denying any blood in her stool or abdominal pain. She denies nausea or vomiting . She remains on ceftriaxone and Flagyl. She was started on Solu-Medrol 20 mg IV every 8 hours yesterday. She is afebrile. WBC 4.9 hemoglobin 9.5. Objective - Vital Signs Vital signs: Vital Signs Temp 98.1 F 02/18/21 05:00 Pulse 98 02/18/21 05:00 Resp 16 02/18/21 05:00 BP 130/75 02/18/21 05:00 Pulse Ox 100 02/18/21 05:00 Intake & Output 02/17/21 02/18/21 02/18/21 18:59 06:59 18:59 Intake Total 700 Output Total 367 Balance -367 700 Weight 56.699 kg Intake: Intake, IV Titration 700 Amount Lactated Ringers 1,000 ml 600 @ 50 mls/hr IV .Q20H ANNMARIE Rx#:[id number] metroNIDAZOLE-NS PMX 500 100 mg In Saline 1 100ml.bag @ 100 mls/hr IVPB Q8HR ANNMARIE Rx#:[id number] Output: Post Void Residual 367 Other: Voiding Method Incontinent Incontinent # Voids 1 1 1 # Bowel Movements 2 1 1 - Exam General appearance: The patient is alert, oriented, appears in no acute distress. HET: Head is normocephalic and atraumatic. Conjunctiva pink. Sclera anicteric. Neck: Supple without lymphadenopathy. Abdomen: Soft, nontender, nondistended with bowel sounds. No guarding or rigidity. Extremities: Normal skin color and turgor. No pedal edema Skin: No rashes, no jaundice Neurological: No focal deficits. Alert and oriented -3. - Labs CBC & Chem 7: 02/18/21 05:03 02/16/21 06:03 Labs: Abnormal Lab Results - Last 24 Hours (Table) 02/17/21 02/17/21 02/17/21 Range/Units 11:42 16:55 20:21 Hgb (11.4-16.0) gm/dL Hct (34.0-46.0) % MCHC (31.0-37.0) g/dL POC Glucose (mg/dL) 113 H 175 H 178 H (75-99) mg/dL 02/18/21 02/18/21 Range/Units 05:03 07:10 Hgb 9.5 L (11.4-16.0) gm/dL Hct 32.7 L (34.0-46.0) % MCHC 29.1 L (31.0-37.0) g/dL POC Glucose (mg/dL) 185 H (75-99) mg/dL Assessment and Plan (1) Colitis Narrative/Plan: Ami 5-year-old female who presented to the emergency department 6 days ago with complaints of abdominal pain who underwent a CT of the abdomen and pelvis showing diffuse colitis throughout the colon. Patient is scheduled to undergo a colonoscopy today with Dr. Sharma. Patient does have a language barrier however was able to answer some questions. She is denying any abdominal pain at this time. Nursing is reporting multiple frequent yellow mucousy stools. She does have a history of C. diff colitis with treatment. Current C. diff and stool c ultures have been negative. And a positive lactoferrin. Sed rate was normal at 6, she had mild elevation of her CRP highest at 4.4. She has been afebrile. No evidence of leukocytosis. Concern is for possible inflammatory bowel disease. At this time we will await colonoscopy report and biopsies. Consider acute colitis such as infectious, or inflammatory versus inflammatory bowel disease such as ulcerative colitis. Patient underwent colonoscopy yesterday with Dr. Sharma showing diffuse colitis. There was significant edema and superficial ulcerations of the mucosa throughout the entire colon. There were a few whitish colored plaques are noted scattered throughout the colon. No significant friability or evidence of recent bleeding. There was no visible diverticulosis and random biopsies were taken. Currently biopsies are pending. Need to consider possibility of inflammatory bowel disease such as Crohn's colitis. Of course we'll need to await biopsy results. However at this time we will start the patient on Solu-Medrol 20 mg IV every 8 hours. Recommend transition to oral prednisone on discharge 40 mg taper dose down by 10 mg weekly. Current Visit: Yes Status: Acute Code(s): K52.9 - NONINFECTIVE GASTROENTERITIS AND COLITIS, UNSPECIFIED SNOMED Code(s): 89971248 (2) Diarrhea Current Visit: Yes Status: Acute Code(s): R19.7 - DIARRHEA, UNSPECIFIED SNOMED Code(s): 16278506 Plan: 1. Continue symptomatic and supportive care 2. Continue IV antibiotics 3. Await biopsy results 4. May use of Imodium 2 mg 1-2 tablets as needed every 4-6 hours for diarrhea 5. Start patient on Solu-Medrol 20 mg IV every 8 hours, transition to oral prednisone for discharge 40mg daily with taper of 10mg per week. Script sent 6. The patient is cleared for discharge by gastroenterology. Patient to follow-up with Dr. Dumont in 2 weeks for biopsy results Thank you for this consultation, we will continue to follow. Dr. Chris Dumont I agree with the dictator's note, documented as a scribe by Mi Dunham.
[2021-02-18 11:37] LABS: ALT <5 U/L (8-44); AST 12 U/L (13-35); African American GFR (CKD) 57.9 (60.0-200.0); Albumin 2.5 g/dL (3.8-4.9); Albumin/Globulin Ratio 1.07 (1.60-3.17); Alkaline Phosphatase 50 U/L (41-126); BUN/Creat Ratio 13.85 Ratio (12.00-20.00); Blood Urea Nitrogen 15.1 mg/dL (9.0-27.0); Calcium 8.7 mg/dL (8.7-10.3); Carbon Dioxide 22.3 mmol/L (20.0-27.5); Chloride 108 mmol/L (96-109); Globulin 2.3 g/dL (1.6-3.3); Glucose 197 mg/dL (70-110); Potassium 4.1 mmol/L (3.5-5.5); Sodium 141 mmol/L (135-145); Total Bilirubin <0.20 mg/dL (0.30-1.20); Total Protein 4.8 g/dL (6.2-8.2)
--- NOTE | 2021-02-18 11:56 | P.PN ---
<AbigailplacidoTri - Last Filed: 02/18/21 11:54> Subjective Progress Note Date: 02/18/21 CHIEF COMPLAINT: Abdominal pain and diarrhea HISTORY OF PRESENT ILLNESS: Surgical service is following regards to patient's colitis. Patient is status post colonoscopy which demonstrated evidence of adame colitis with evidence of significant edema and superficial ulceration of the mucosal throughout the entire colon and evidence of a few whitish plaques. Random biopsies completed. GI service has added IV steroids. Patient lying in bed comfortably. Denies any pain today. She did have diarrhea 3 through the night that was mucousy. Decreased appetite but reports tenderness except that she does not like the food. Afebrile. WBC 4.9 Hgb 9.5 PHYSICAL EXAM: VITAL SIGNS: Reviewed. GENERAL: Well-developed in no acute distress. HEENT: No sclera icterus. Extraocular movements grossly intact. Moist buccal mucosa. Head is atraumatic, normocephalic. ABDOMEN: Soft. Nondistended. Nontender NEUROLOGIC: Awake and alert ASSESSMENT: 1. Abdominal pain with diarrhea and black stools. Status post colonoscopy with biopsy 2. Colitis and concerns for ulcerative colitis PLAN: -Continue regular diet -Continue IV antibiotics -Steroids per GI service -Continue supportive care -Awaiting biopsy results Physician Premium Cancellation Clerk note has been reviewed by physician. Signing provider agrees with the documented findings, assessment, and plan of care. Objective - Vital Signs Vital signs: Vital Signs Temp 98.1 F 02/18/21 05:00 Pulse 98 02/18/21 05:00 Resp 16 02/18/21 05:00 BP 130/75 02/18/21 05:00 Pulse Ox 100 02/18/21 05:00 Intake & Output 02/17/21 02/18/21 02/18/21 18:59 06:59 18:59 Intake Total 700 Output Total 367 Balance -367 700 Weight 56.699 kg Intake: Intake, IV Titration 700 Amount Lactated Ringers 1,000 ml 600 @ 50 mls/hr IV .Q20H ANNMARIE Rx#:[id number] metroNIDAZOLE-NS PMX 500 100 mg In Saline 1 100ml.bag @ 100 mls/hr IVPB Q8HR ANNMARIE Rx#:[id number] Output: Post Void Residual 367 Other: Voiding Method Incontinent Incontinent # Voids 1 1 1 # Bowel Movements 2 1 1 - Labs CBC & Chem 7: 02/18/21 05:03 02/18/21 05:03 Labs: Abnormal Lab Results - Last 24 Hours (Table) 02/17/21 02/17/21 02/18/21 Range/Units 16:55 20:21 05:03 Hgb 9.5 L (11.4-16.0) gm/dL Hct 32.7 L (34.0-46.0) % MCHC 29.1 L (31.0-37.0) g/dL Est GFR (CKD-EPI)AfAm (60.0-200.0) Est GFR (CKD-EPI)NonAf (60.0-200.0) Glucose (70-110) mg/dL POC Glucose (mg/dL) 175 H 178 H (75-99) mg/dL Total Bilirubin (0.30-1.20) mg/dL AST (13-35) U/L ALT (8-44) U/L Total Protein (6.2-8.2) g/dL Albumin (3.8-4.9) g/dL Albumin/Globulin Ratio (1.60-3.17) g/dL 02/18/21 02/18/21 Range/Units 05:03 07:10 Hgb (11.4-16.0) gm/dL Hct (34.0-46.0) % MCHC (31.0-37.0) g/dL Est GFR (CKD-EPI)AfAm 57.9 L (60.0-200.0) Est GFR (CKD-EPI)NonAf 50.0 L (60.0-200.0) Glucose 197 H (70-110) mg/dL POC Glucose (mg/dL) 185 H (75-99) mg/dL Total Bilirubin <0.20 L (0.30-1.20) mg/dL AST 12 L (13-35) U/L ALT <5 L (8-44) U/L Total Protein 4.8 L (6.2-8.2) g/dL Albumin 2.5 L (3.8-4.9) g/dL Albumin/Globulin Ratio 1.07 L (1.60-3.17) g/dL <Conner Sharma - Last Filed: 02/18/21 12:44> Subjective As above. Diarrhea seems improved. Biopsies are pending. Continue steroids. Continue diet as tolerated. Objective - Vital Signs Vital signs: Vital Signs Temp 98.1 F 02/18/21 05:00 Pulse 98 02/18/21 05:00 Resp 16 02/18/21 05:00 BP 130/75 02/18/21 05:00 Pulse Ox 100 02/18/21 05:00 Intake & Output 02/17/21 02/18/21 02/18/21 18:59 06:59 18:59 Intake Total 700 Output Total 367 Balance -367 700 Weight 56.699 kg Intake: Intake, IV Titration 700 Amount Lactated Ringers 1,000 ml 600 @ 50 mls/hr IV .Q20H ANNMARIE Rx#:[id number] metroNIDAZOLE-NS PMX 500 100 mg In Saline 1 100ml.bag @ 100 mls/hr IVPB Q8HR ANNMARIE Rx#:[id number] Output: Post Void Residual 367 Other: Voiding Method Incontinent Incontinent # Voids 1 1 1 # Bowel Movements 2 1 1 - Labs CBC & Chem 7: 02/18/21 05:03 02/18/21 05:03 Labs: Abnormal Lab Results - Last 24 Hours (Table) 02/17/21 02/17/21 02/18/21 Range/Units 16:55 20:21 05:03 Hgb 9.5 L (11.4-16.0) gm/dL Hct 32.7 L (34.0-46.0) % MCHC 29.1 L (31.0-37.0) g/dL Est GFR (CKD-EPI)AfAm (60.0-200.0) Est GFR (CKD-EPI)NonAf (60.0-200.0) Glucose (70-110) mg/dL POC Glucose (mg/dL) 175 H 178 H (75-99) mg/dL Total Bilirubin (0.30-1.20) mg/dL AST (13-35) U/L ALT (8-44) U/L Total Protein (6.2-8.2) g/dL Albumin (3.8-4.9) g/dL Albumin/Globulin Ratio (1.60-3.17) g/dL 02/18/21 02/18/21 Range/Units 05:03 07:10 Hgb (11.4-16.0) gm/dL Hct (34.0-46.0) % MCHC (31.0-37.0) g/dL Est GFR (CKD-EPI)AfAm 57.9 L (60.0-200.0) Est GFR (CKD-EPI)NonAf 50.0 L (60.0-200.0) Glucose 197 H (70-110) mg/dL POC Glucose (mg/dL) 185 H (75-99) mg/dL Total Bilirubin <0.20 L (0.30-1.20) mg/dL AST 12 L (13-35) U/L ALT <5 L (8-44) U/L Total Protein 4.8 L (6.2-8.2) g/dL Albumin 2.5 L (3.8-4.9) g/dL Albumin/Globulin Ratio 1.07 L (1.60-3.17) g/dL Assessment and Plan (1) Colitis Current Visit: Yes Status: Acute Code(s): K52.9 - NONINFECTIVE GASTROENTERITIS AND COLITIS, UNSPECIFIED SNOMED Code(s): 95044564
[2021-02-18 13:06] LABS: Glucose,Whole Blood 265 mg/dL (75-99)
[2021-02-18 14:36] VITALS: BP 127/67; PULSE 89; TEMP 98.3
[2021-02-18] MEDS: DARBEPOETIN ALFA 40 MCG/0.4 ML SYRINGE SQ SCH (15:23)
--- NOTE | 2021-02-18 16:27 | P.DS ---
Providers Date of admission: 02/10/21 17:21 Expected date of discharge: 02/18/21 Attending physician: Kena Anderson DO Consults: 02/11/21 08:07 Consult Physician Routine Consulting Provider: Mikael Wiseman Consult Reason/Comments: CADE Do you want consulting provider notified?: Yes 02/11/21 08:14 Consult Physician Routine Consulting Provider: Conner Sharma Consult Reason/Comments: Colitis Do you want consulting provider notified?: Yes 02/16/21 08:52 Consult Physician Routine Consulting Provider: Loly Dumont Consult Reason/Comments: COlitis suspect ulcerative Do you want consulting provider notified?: Yes Primary care physician: Anand Flaherty MD Hospital Course: Discharge Diagnosis: Acute pancolitis, as evidenced by diverticulitis accompanied by significant edema and superficial ulcerations throughout the mucosa of the entire colon Acute kidney injury on chronic kidney disease stage III, improved Klebsiella UTI Diabetes mellitus type 2 without long-term use of insulin and diabetic neuropathy Anemia of chronic disease, hemoglobin stable at 9.6 above baseline Dementia and bipolar disorder Peptic ulcer disease Hypertension controlled Severe protein calorie malnutrition Chronic wound left ankle Cardiomyopathy SIRS sepsis ruled out Hospital Course: Patient is a 75-year-old female with a history of C. diff, diabetes, hypertension, coronary artery disease, and dementia and who presented to the hospital on 02/10/21 with complaints of abdominal pain and diarrhea. She was seen and fully evaluated in the emergency department resulting in diagnosis of acute pancolitis, UTI, and acute kidney injury. CT abdomen and pelvis revealed colitis with mild ascites. She was found to have an elevated WBC count of 18.2, hemoglobin 10.0, thrombocytosis with a platelet count of 526, hyponatremia with sodium of 133, hyperkalemia with potassium of 5.4, and an acute kidney injury with BUN of 42, creatinine 2.51, and GFR of 18. Urinalysis positive for infection with urine culture positive for Klebsiella pneumoniae and E. coli. Blood cultures negative showing no growth 144 hours. Stool cultures negative for C. diff and positive for fecal lactoferrin. Patient was started on IV antibiotics Rocephin and Flagyl and was admitted under our services with consultation to general surgery, nephrology, and gastroenterology. On 02/16/21 , pt underwent a colonoscopy which revealed diffuse colitis with significant edema and superficial ulcerations of the mucosa throughout the entire colon. Multiple biopsies were taken during colonoscopy and sent to lab for analysis. Patient started on steroids pending biopsy results. Patient has completed 8 day course of IV antibiotics with Rocephin and Flagyl for treatment of colitis and Klebsiella positive UTI. Mail Examiner recommending outpatient follow-up in their office in one week to discuss biopsy results and continued in of care. Patient is medically stable for discharge at this time. Patient provided with prescription for prednisone taper and being discharged home in the care of her family along with [facility] services. Physical examination: Patient seen and examined at bedside. She was resting comfortably, denied having any complaints or pain. She reports that she is not urinating without any difficulties. RN denied further episodes of urinary retention. Patient tolerating oral intake without any complaints and has not experienced any nausea or vomiting. Patient has tolerated regular diet without difficulties. Patient completed 8 day course of antibiotics Flagyl and Rocephin. Morning labs reviewed, hemoglobin stable. Patient medically stable for discharge home. General: non toxic, no distress, appears at stated age Derm: warm, dry. Dressing clean dry and intact to left ankle. Head: atraumatic, normocephalic, symmetric Eyes: EOMI, no lid lag, anicteric sclera Mouth: no lip lesion, mucus membranes moist Cardiovascular: S1S2 reg, no murmur, positive posterior tibial pulse bilateral, Lungs: CTA bilateral, no rhonchi, no rales , no accessory muscle use Abdominal: soft, nontender to palpation, no guarding, no appreciable organomegaly Ext: no gross muscle atrophy, no edema, no contractures Neuro: CN II-XI grossly intact, no focal neuro deficits Psych: Alert, oriented, appropriate affect A total of 45 minutes of time were spent preparing this complex discharge summary. Patient Condition at Discharge: Stable Plan - Discharge Summary New Discharge Prescriptions: New predniSONE 10 mg PO DAILY #70 tab Continue Latanoprost/Pf [Latanoprost 0.005% Eye Drop] 1 drop BOTH EYES HS Donepezil [Aricept] 5 mg PO HS Pantoprazole Sodium [Protonix] 40 mg PO DAILY Metoprolol Succinate (ER) [Toprol XL] 100 mg PO DAILY Iron Polysaccharide Complex [Ferrex 150] 150 mg PO DAILY OLANZapine [ZyPREXA] 2.5 mg PO HS Sodium Bicarbonate Tab 650 mg PO TID #90 tab amLODIPine [Norvasc] 5 mg PO DAILY Cholecalciferol (Vitamin D3) [Vitamin D3 (125 MCG = 5,000 IU)] 125 mcg PO DAILY Simvastatin [Zocor] 20 mg PO HS Ondansetron Odt [Zofran ODT] 4 mg PO BID PRN PRN Reason: Nausea Collagenase [Santyl Ointment] 1 applic TOPICAL HS glipiZIDE [Glucotrol] 2.5 mg PO AC-BID Discharge Medication List Donepezil [Aricept] 5 mg PO HS 09/14/20 [History] Latanoprost/Pf [Latanoprost 0.005% Eye Drop] 1 drop BOTH EYES HS 09/14/20 [History] Sodium Bicarbonate Tab 650 mg PO TID #90 tab 11/20/20 [Rx] Cholecalciferol (Vitamin D3) [Vitamin D3 (125 MCG = 5,000 IU)] 125 mcg PO DAILY 12/25/20 [History] Iron Polysaccharide Complex [Ferrex 150] 150 mg PO DAILY 12/25/20 [History] Metoprolol Succinate (ER) [Toprol XL] 100 mg PO DAILY 12/25/20 [History] OLANZapine [ZyPREXA] 2.5 mg PO HS 12/25/20 [History] Pantoprazole Sodium [Protonix] 40 mg PO DAILY 12/25/20 [History] Simvastatin [Zocor] 20 mg PO HS 12/25/20 [History] amLODIPine [Norvasc] 5 mg PO DAILY 12/25/20 [History] Collagenase [Santyl Ointment] 1 applic TOPICAL HS 02/10/21 [History] Ondansetron Odt [Zofran ODT] 4 mg PO BID PRN 02/10/21 [History] glipiZIDE [Glucotrol] 2.5 mg PO AC-BID 02/10/21 [History] predniSONE 10 mg PO DAILY #70 tab 02/18/21 [Rx] Follow up Appointment(s)/Referral(s): [facility], [NON-STAFF] - Anand Flaherty MD [Primary Care Provider] - 02/19/21 10:30 am Loly Dumont MD [STAFF PHYSICIAN] - 02/24/21 1:00 pm Patient Instructions/Handouts: Prednisone (By mouth), Low Fiber Diet (DC), Colitis (ED) Activity/Diet/Wound Care/Special Instructions: Diet: Heart healthy and low fiber diet. Special Instructions: Take all of your medications as directed and remember to keep all of your doctor's appointments and follow-up as needed. Thank you for allowing us to participate in your care, it was truly a pleasure having you for our patient!!! Discharge Disposition: HOME WITH HOME HEALTH SERVICES
== END 2021-02-18 16:48 | disposition home health service (06) | DRG 385 ==
LOC: EC 13:24 → 1SOBS 17:21 → 5NMEDONC 02-13 18:46
PROVIDERS: ADMIT Internal Medicine; ATTEND Internal Medicine
PROC: 0DBE8ZX Excision of Large Intestine, Via Natural or Artificial Opening Endoscopic, Diagnostic (ICD-10-PCS; principal; 2021-02-16 07:30)
DX: K51.90 Ulcerative colitis, unspecified, without complications (principal); E43 Unspecified severe protein-calorie malnutrition; J18.9 Pneumonia, unspecified organism; N17.0 Acute kidney failure with tubular necrosis; R65.20 Severe sepsis without septic shock; E87.1 Hypo-osmolality and hyponatremia; E87.2 Acidosis; I50.22 Chronic systolic (congestive) heart failure; I13.0 Hypertensive heart and chronic kidney disease with heart failure and stage 1 through stage 4 chronic kidney disease, or unspecified chronic kidney disease; I31.3 Pericardial effusion (noninflammatory); I42.9 Cardiomyopathy, unspecified; K57.92 Diverticulitis of intestine, part unspecified, without perforation or abscess without bleeding; K63.3 Ulcer of intestine; N39.0 Urinary tract infection, site not specified; R18.8 Other ascites; R10.9 Unspecified abdominal pain; B96.1 Klebsiella pneumoniae [K. pneumoniae] as the cause of diseases classified elsewhere; D63.1 Anemia in chronic kidney disease; D75.839 Thrombocytosis, unspecified; N18.31 Chronic kidney disease, stage 3a; E11.22 Type 2 diabetes mellitus with diabetic chronic kidney disease; E11.621 Type 2 diabetes mellitus with foot ulcer; E78.5 Hyperlipidemia, unspecified; E83.42 Hypomagnesemia; Z20.822 Contact with and (suspected) exposure to COVID-19; E86.1 Hypovolemia; E87.6 Hypokalemia; F03.90 Unspecified dementia, unspecified severity, without behavioral disturbance, psychotic disturbance, mood disturbance, and anxiety; F31.9 Bipolar disorder, unspecified; I25.10 Atherosclerotic heart disease of native coronary artery without angina pectoris; K27.9 Peptic ulcer, site unspecified, unspecified as acute or chronic, without hemorrhage or perforation; K52.9 Noninfective gastroenteritis and colitis, unspecified; L89.622 Pressure ulcer of left heel, stage 2; R32 Unspecified urinary incontinence; Z79.4 Long term (current) use of insulin; Z79.899 Other long term (current) drug therapy; Z86.19 Personal history of other infectious and parasitic diseases; Z87.11 Personal history of peptic ulcer disease; Z68.21 Body mass index [BMI] 21.0-21.9, adult
CPT/HCPCS: 36415; 45380; 71045; 74176; 80048; 80053; 81001; 82272; 83605; 83630; 83690; 83735; 85025; 85027; 85652; 86140; 87040; 87045; 87046; 87077; 87086; 87186; 87324; 87635; 88305; 93005; 93308; 96361; 96374; 96375; 99285

== ENCOUNTER → 2021-03-12 | Outpatient (CLI) | payer MEDICARE ==
[2021-03-13 04:18] LABS: Magnesium 2.7 mg/dL (1.5-2.4)
[2021-03-13 07:02] LABS: African American GFR (CKD) 31.4 (60.0-200.0); Anion Gap 18.1 mmol/L (10.00-18.00); BUN/Creat Ratio 12.06 Ratio (12.00-20.00); Blood Urea Nitrogen 21.7 mg/dL (9.0-27.0); Calcium 9.3 mg/dL (8.7-10.3); Non-African American GFR(CKD) 27.1 (60.0-200.0); Potassium 6.6 mmol/L (3.5-5.5)
== END | disposition home or self-care (01) ==
LOC: LABWHC1 15:08
PROVIDERS: ATTEND Internal Medicine
DX: E87.8 Other disorders of electrolyte and fluid balance, not elsewhere classified (principal)
CPT/HCPCS: 36415; 80048; 83735

== ENCOUNTER 2021-04-14 12:05 | Inpatient (IN) | payer MEDICARE ==
[2021-04-14] MEDS ORDERED: SODIUM CHLORIDE 0.9% 500 ML 500 ML IV STA (12:37)
--- NOTE | 2021-04-14 13:32 | ED ---
General Adult HPI - General Chief complaint: Nausea/Vomiting/Diarrhea Stated complaint: Dehydration Time Seen by Provider: 04/14/21 12:32 Source: patient Mode of arrival: ambulatory Limitations: no limitations - History of Present Illness Initial comments: This 76-year-old female presents emergency Department with increased weakness and dehydration 3 days. Patient has at home nurse that came to the house yesterday, called the family today and told them to bring her in to the ER due to her being dehydrated and more weak lately. Daughters on room states that patient lives with them and they have noticed her being more weak and hasn't had as much of an appetite lately. Patient still has been eating and drinking fluids. Patient has had an ongoing UTI 2 weeks and is currently on cefuroxime for UTI. Daughter states she thinks she does have some mild dementia and is currently in her normal state of mind. Patient denies any chest pain, shortness of breath, diarrhea, constipation, hemoptysis, abdominal pain, headache, nausea, vomiting. - Related Data Home Medications Medication Instructions Recorded Confirmed Donepezil [Aricept] 5 mg PO HS 09/14/20 02/10/21 Latanoprost/Pf [Latanoprost 0.005% 1 drop BOTH EYES HS 09/14/20 02/10/21 Eye Drop] Cholecalciferol (Vitamin D3) 125 mcg PO DAILY 12/25/20 02/10/21 [Vitamin D3 (125 MCG = 5,000 IU)] Iron Polysaccharide Complex 150 mg PO DAILY 12/25/20 02/10/21 [Ferrex 150] Metoprolol Succinate (ER) [Toprol 100 mg PO DAILY 12/25/20 02/10/21 XL] OLANZapine [ZyPREXA] 2.5 mg PO HS 12/25/20 02/10/21 Pantoprazole Sodium [Protonix] 40 mg PO DAILY 12/25/20 02/10/21 Simvastatin [Zocor] 20 mg PO HS 12/25/20 02/10/21 amLODIPine [Norvasc] 5 mg PO DAILY 12/25/20 02/10/21 Collagenase [Santyl Ointment] 1 applic TOPICAL HS 02/10/21 02/10/21 Ondansetron Odt [Zofran ODT] 4 mg PO BID PRN 02/10/21 02/10/21 glipiZIDE [Glucotrol] 2.5 mg PO AC-BID 02/10/21 02/10/21 Previous Rx's Medication Instructions Recorded Sodium Bicarbonate Tab 650 mg PO TID #90 tab 11/20/20 predniSONE 10 mg PO DAILY #70 tab 02/18/21 Allergies Allergy/AdvReac Type Severity Reaction Status Date / Time No Known Allergies Allergy Verified 04/14/21 12:19 Review of Systems ROS Statement: Those systems with pertinent positive or pertinent negative responses have been documented in the HPI. ROS Other: All systems not noted in ROS Statement are negative. Past Medical History Past Medical History: Coronary Artery Disease (CAD), Diabetes Mellitus, Hyperlipidemia, Hypertension Additional Past Medical History / Comment(s): mild, wound care center for left. left broken ankle. History of Any Multi-Drug Resistant Organisms: None Reported Past Surgical History: Cholecystectomy, Heart Catheterization With Stent, Orthopedic Surgery Additional Past Surgical History / Comment(s): hip surgery, cataract sx, left ankle surgery 2020 Past Anesthesia/Blood Transfusion Reactions: No Reported Reaction Date of Last Stent Placement:: 2000 Past Psychological History: No Psychological Hx Reported Smoking Status: Never smoker Past Alcohol Use History: None Reported Past Drug Use History: None Reported General Exam Limitations: no limitations General appearance: alert, in no apparent distress Head exam: Present: atraumatic, normocephalic Eye exam: Present: PERRL, EOMI Pupils: Present: normal accommodation ENT exam: Present: mucous membranes moist Neck exam: Present: full ROM Respiratory exam: Present: normal lung sounds bilaterally. Absent: respiratory distress, wheezes, rales, rhonchi, stridor Cardiovascular Exam: Present: regular rate, normal rhythm, normal heart sounds. Absent: systolic murmur, diastolic murmur, rubs, gallop, clicks GI/Abdominal exam: Present: soft, normal bowel sounds. Absent: distended, tenderness, guarding, rebound, rigid Extremities exam: Present: other (Patient with wrap and flew over her left foot, sees wound center weekly for her left ankle.) Neurological exam: Present: alert, CN II-XII intact. Absent: oriented X3 (Patient does not her name and where she is at. States it is 2020, however, daughter and room states that she is at her baseline.) Psychiatric exam: Present: normal affect, normal mood Skin exam: Present: warm, dry, normal color Course Vital Signs 04/14/21 04/14/21 12:14 14:58 Temperature 97.7 F Pulse Rate 91 93 Respiratory 20 18 Rate Blood Pressure 78/45 124/69 O2 Sat by Pulse 98 99 Oximetry - Reevaluation(s) Reevaluation #1: 04/14/21 15:03 Vitals rechecked with BP 124/69 Medical Decision Making - Medical Decision Making This 76-year-old female presents to the emergency department with increased weakness and dehydration. She has had ongoing UTI for the last 2 weeks and is currently on cefuroxime for UTI. White blood cells 13.8 plasma lactic acid 2.1, urine with white blood cells greater than 182, leukocyte esterase large, urine bacteria rare. Patient admitted with IV fluids and IV antibiotics. Spoke with Dr. Perkins who agreed to admit patient to his services. Patient and family agreed to plan. - Lab Data Result diagrams: 04/14/21 13:51 04/14/21 13:51 Lab Results 04/14/21 04/14/21 04/14/21 Range/Units 13:51 13:51 13:51 WBC 13.8 H (3.8-10.6) k/uL RBC 4.37 (3.80-5.40) m/uL Hgb 11.3 L (11.4-16.0) gm/dL Hct 38.0 (34.0-46.0) % MCV 86.8 (80.0-100.0) fL MCH 25.9 (25.0-35.0) pg MCHC 29.9 L (31.0-37.0) g/dL RDW 17.8 H (11.5-15.5) % Plt Count 603 H (150-450) k/uL MPV 7.5 Neutrophils % 83 % Lymphocytes % 11 % Monocytes % 2 % Eosinophils % 3 % Basophils % 1 % Neutrophils # 11.4 H (1.3-7.7) k/uL Lymphocytes # 1.5 (1.0-4.8) k/uL Monocytes # 0.3 (0-1.0) k/uL Eosinophils # 0.3 (0-0.7) k/uL Basophils # 0.1 (0-0.2) k/uL Hypochromasia Marked Anisocytosis Slight Sodium 136 L (137-145) mmol/L Potassium 4.5 (3.5-5.1) mmol/L Chloride 99 (98-107) mmol/L Carbon Dioxide 35 H (22-30) mmol/L Anion Gap 2 mmol/L BUN 23 H (7-17) mg/dL Creatinine 1.53 H (0.52-1.04) mg/dL Est GFR (CKD-EPI)AfAm 38 (>60 ml/min/1.73 sqM) Est GFR (CKD-EPI)NonAf 33 (>60 ml/min/1.73 sqM) Glucose 124 H (74-99) mg/dL Plasma Lactic Acid Lemuel (0.7-2.0) mmol/L Calcium 9.4 (8.4-10.2) mg/dL Total Bilirubin 0.5 (0.2-1.3) mg/dL AST 21 (14-36) U/L ALT 8 (4-34) U/L Alkaline Phosphatase 149 H (38-126) U/L Total Protein 5.9 L (6.3-8.2) g/dL Albumin 2.6 L (3.5-5.0) g/dL Urine Color Yellow Urine Appearance Cloudy H (Clear) Urine pH 7.0 (5.0-8.0) Ur Specific [place] 1.017 (1.001-1.035) Urine Protein 1+ H (Negative) Urine Glucose (UA) Negative (Negative) Urine Ketones Negative (Negative) Urine Blood Trace H (Negative) Urine Nitrite Negative (Negative) Urine Bilirubin Negative (Negative) Urine Urobilinogen <2.0 (<2.0) mg/dL Ur Leukocyte Esterase Large H (Negative) Urine RBC 6 H (0-5) /hpf Urine WBC >182 H (0-5) /hpf Urine WBC Clumps Many H (None) /hpf Ur Squamous Epith Cells 6 H (0-4) /hpf Urine Bacteria Rare H (None) /hpf Urine Mucus Rare H (None) /hpf 04/14/21 Range/Units 13:51 WBC (3.8-10.6) k/uL RBC (3.80-5.40) m/uL Hgb (11.4-16.0) gm/dL Hct (34.0-46.0) % MCV (80.0-100.0) fL MCH (25.0-35.0) pg MCHC (31.0-37.0) g/dL RDW (11.5-15.5) % Plt Count (150-450) k/uL MPV Neutrophils % % Lymphocytes % % Monocytes % % Eosinophils % % Basophils % % Neutrophils # (1.3-7.7) k/uL Lymphocytes # (1.0-4.8) k/uL Monocytes # (0-1.0) k/uL Eosinophils # (0-0.7) k/uL Basophils # (0-0.2) k/uL Hypochromasia Anisocytosis Sodium (137-145) mmol/L Potassium (3.5-5.1) mmol/L Chloride (98-107) mmol/L Carbon Dioxide (22-30) mmol/L Anion Gap mmol/L BUN (7-17) mg/dL Creatinine (0.52-1.04) mg/dL Est GFR (CKD-EPI)AfAm (>60 ml/min/1.73 sqM) Est GFR (CKD-EPI)NonAf (>60 ml/min/1.73 sqM) Glucose (74-99) mg/dL Plasma Lactic Acid Lemuel 2.1 H* (0.7-2.0) mmol/L Calcium (8.4-10.2) mg/dL Total Bilirubin (0.2-1.3) mg/dL AST (14-36) U/L ALT (4-34) U/L Alkaline Phosphatase (38-126) U/L Total Protein (6.3-8.2) g/dL Albumin (3.5-5.0) g/dL Urine Color Urine Appearance (Clear) Urine pH (5.0-8.0) Ur Specific [place] (1.001-1.035) Urine Protein (Negative) Urine Glucose (UA) (Negative) Urine Ketones (Negative) Urine Blood (Negative) Urine Nitrite (Negative) Urine Bilirubin (Negative) Urine Urobilinogen (<2.0) mg/dL Ur Leukocyte Esterase (Negative) Urine RBC (0-5) /hpf Urine WBC (0-5) /hpf Urine WBC Clumps (None) /hpf Ur Squamous Epith Cells (0-4) /hpf Urine Bacteria (None) /hpf Urine Mucus (None) /hpf Disposition Clinical Impression: Weakness, Dehydration, Leukocytosis, UTI (urinary tract infection) Disposition: ADMITTED IP TO THIS HOSP Condition: Serious Is patient prescribed a controlled substance at d/c from ED?: No Referrals: Anand Flaherty MD [Primary Care Provider] - 1-2 days Time of Disposition: 14:50
[2021-04-14 14:11] LABS: Anisocytosis Slight; Basophils # (A) 0.1 k/uL (0-0.2); Basophils % (A) 1 %; Eosinophils # (A) 0.3 k/uL (0-0.7); Eosinophils % (A) 3 %; HGB 11.3 gm/dL (11.4-16.0); Hypochromasia Marked; Lymphocytes # (A) 1.5 k/uL (1.0-4.8); Lymphocytes % (A) 11 %; MCH 25.9 pg (25.0-35.0); MCHC 29.9 g/dL (31.0-37.0); MCV 86.8 fL (80.0-100.0); Mean Platelet Volume 7.5; Monocytes # (A) 0.3 k/uL (0-1.0); Monocytes % (A) 2 %; Neutrophils # (A) 11.4 k/uL (1.3-7.7); Neutrophils % (A) 83 %; Platelet Count 603 k/uL (150-450); RBC 4.37 m/uL (3.80-5.40); RDW 17.8 % (11.5-15.5); WBC 13.8 k/uL (3.8-10.6)
[2021-04-14 14:24] LABS: Albumin 2.6 g/dL (3.5-5.0); Calcium 9.4 mg/dL (8.4-10.2); Potassium 4.5 mmol/L (3.5-5.1); Total Bilirubin 0.5 mg/dL (0.2-1.3); Total Protein 5.9 g/dL (6.3-8.2)
[2021-04-14 14:25] LABS: Appearance,Urine Cloudy (Clear); Bacteria,Urine Rare /hpf; Bilirubin,Urine Negative (Negative); Blood,Urine Trace (Negative); Color,Urine Yellow; Glucose,Urine (UA) Negative (Negative); Ketones,Urine Negative (Negative); Leukocyte Esterase,Urine Large (Negative); Mucus,Urine Rare /hpf; Nitrite,Urine Negative (Negative); Protein,Urine 1+ (Negative); RBC,Urine 6 /hpf (0-5); Specific Gravity,Urine 1.017 (1.001-1.035); Squamous Epithelial Cell,Urine 6 /hpf (0-4); Urobilinogen,Urine <2.0 mg/dL (<2.0); WBC,Urine >182 /hpf (0-5)
[2021-04-14] MEDS ORDERED: cefTRIAXone IN SWFI 1,000 MG/10 ML SYRINGE IVP STA (14:39)
[2021-04-14] MEDS: SODIUM CHLORIDE 0.9% 1,000 ML IV SCH ×2 (14:49→21:21)
[2021-04-14] MEDS ORDERED: NALOXONE 0.4 MG/ML 1 ML VIAL IV PRN (14:56)
[2021-04-14 15:34] LABS: Partial Thromboplastin Time 25.4 sec (22.0-30.0); Prothrombin Time 11.3 sec (9.0-12.0)
--- NOTE | 2021-04-14 15:50 | P.HPIM ---
History of Present Illness H&P Date: 04/14/21 Chief Complaint: Weakness Patient is a 76-year-old female with a past medical history mild dementia, hyperlipidemia, GERD, diabetes mellitus nonindependent presents to the hospital secondary to weakness, dehydration and urinary tract infection. Patient instructed by her home nurse to visit the emergency department she noted increased weakness and some suprapubic tenderness. Patient has been complaining of mild dysuria and does have a history of recurrent urinary tract infections. Of note she recently had a ankle fracture and follows up with orthopedic service. She currently wears a boot that can be removed at nighttime when she is resting however needs to be worn at any point when she is ambulating or any weight put on. Patient was examined in the emergency department was found to be septic secondary to UTI. Tachycardic at 93, lactic acid elevated, with an elevated red blood cell count of 13.8. His platelet count was 603, sodium 136 and creatinine of 1.53. Past Medical History Past Medical History: Coronary Artery Disease (CAD), Diabetes Mellitus, Hyperlipidemia, Hypertension Additional Past Medical History / Comment(s): mild, wound care center for left. left broken ankle. History of Any Multi-Drug Resistant Organisms: None Reported Past Surgical History: Cholecystectomy, Heart Catheterization With Stent, Orthopedic Surgery Additional Past Surgical History / Comment(s): hip surgery, cataract sx, left an kle surgery 2020 Past Anesthesia/Blood Transfusion Reactions: No Reported Reaction Date of Last Stent Placement:: 2000 Past Psychological History: No Psychological Hx Reported Smoking Status: Never smoker Past Alcohol Use History: None Reported Past Drug Use History: None Reported Medications and Allergies Home Medications Medication Instructions Recorded Confirmed Type Donepezil [Aricept] 5 mg PO HS 09/14/20 02/10/21 History Latanoprost/Pf [Latanoprost 0.005% 1 drop BOTH EYES HS 09/14/20 02/10/21 History Eye Drop] Sodium Bicarbonate Tab 650 mg PO TID #90 tab 11/20/20 02/10/21 Rx Cholecalciferol (Vitamin D3) 125 mcg PO DAILY 12/25/20 02/10/21 History [Vitamin D3 (125 MCG = 5,000 IU)] Iron Polysaccharide Complex 150 mg PO DAILY 12/25/20 02/10/21 History [Ferrex 150] Metoprolol Succinate (ER) [Toprol 100 mg PO DAILY 12/25/20 02/10/21 History XL] OLANZapine [ZyPREXA] 2.5 mg PO HS 12/25/20 02/10/21 History Pantoprazole Sodium [Protonix] 40 mg PO DAILY 12/25/20 02/10/21 History Simvastatin [Zocor] 20 mg PO HS 12/25/20 02/10/21 History amLODIPine [Norvasc] 5 mg PO DAILY 12/25/20 02/10/21 History Collagenase [Santyl Ointment] 1 applic TOPICAL HS 02/10/21 02/10/21 History Ondansetron Odt [Zofran ODT] 4 mg PO BID PRN 02/10/21 02/10/21 History glipiZIDE [Glucotrol] 2.5 mg PO AC-BID 02/10/21 02/10/21 History predniSONE 10 mg PO DAILY #70 tab 02/18/21 Rx Allergies Allergy/AdvReac Type Severity Reaction Status Date / Time No Known Allergies Allergy Verified 04/14/21 12:19 Physical Exam Vitals: Vital Signs Temp Pulse Resp BP Pulse Ox 04/14/21 14:58 93 18 124/69 99 04/14/21 12:14 97.7 F 91 20 78/45 98 Intake and Output 04/14/21 04/14/21 04/14/21 06:59 14:59 22:59 Other: Weight 54.431 kg General: Patient is awake alert oriented 2 Respiratory no wheezing or rhonchi appreciated Abdomen some suprapubic tenderness on palpation Cardio normal S1/S2 Neuro no neuro deficits noted Extremity A she has a boot on the left lower extremity Results CBC & Chem 7: 04/14/21 13:51 04/14/21 13:51 Labs: Abnormal Lab Results - Last 24 Hours (Table) 04/14/21 04/14/21 04/14/21 Range/Units 13:51 13:51 13:51 WBC 13.8 H (3.8-10.6) k/uL Hgb 11.3 L (11.4-16.0) gm/dL MCHC 29.9 L (31.0-37.0) g/dL RDW 17.8 H (11.5-15.5) % Plt Count 603 H (150-450) k/uL Neutrophils # 11.4 H (1.3-7.7) k/uL Sodium 136 L (137-145) mmol/L Carbon Dioxide 35 H (22-30) mmol/L BUN 23 H (7-17) mg/dL Creatinine 1.53 H (0.52-1.04) mg/dL Glucose 124 H (74-99) mg/dL Plasma Lactic Acid Lemuel (0.7-2.0) mmol/L Alkaline Phosphatase 149 H (38-126) U/L Total Protein 5.9 L (6.3-8.2) g/dL Albumin 2.6 L (3.5-5.0) g/dL Urine Appearance Cloudy H (Clear) Urine Protein 1+ H (Negative) Urine Blood Trace H (Negative) Ur Leukocyte Esterase Large H (Negative) Urine RBC 6 H (0-5) /hpf Urine WBC >182 H (0-5) /hpf Urine WBC Clumps Many H (None) /hpf Ur Squamous Epith Cells 6 H (0-4) /hpf Urine Bacteria Rare H (None) /hpf Urine Mucus Rare H (None) /hpf 04/14/21 Range/Units 13:51 WBC (3.8-10.6) k/uL Hgb (11.4-16.0) gm/dL MCHC (31.0-37.0) g/dL RDW (11.5-15.5) % Plt Count (150-450) k/uL Neutrophils # (1.3-7.7) k/uL Sodium (137-145) mmol/L Carbon Dioxide (22-30) mmol/L BUN (7-17) mg/dL Creatinine (0.52-1.04) mg/dL Glucose (74-99) mg/dL Plasma Lactic Acid Lemuel 2.1 H* (0.7-2.0) mmol/L Alkaline Phosphatase (38-126) U/L Total Protein (6.3-8.2) g/dL Albumin (3.5-5.0) g/dL Urine Appearance (Clear) Urine Protein (Negative) Urine Blood (Negative) Ur Leukocyte Esterase (Negative) Urine RBC (0-5) /hpf Urine WBC (0-5) /hpf Urine WBC Clumps (None) /hpf Ur Squamous Epith Cells (0-4) /hpf Urine Bacteria (None) /hpf Urine Mucus (None) /hpf Assessment and Plan Assessment: Assessment: #1 sepsis secondary to urinary tract infection #2 leukocytosis secondary to above #3 active acidosis secondary to sepsis #4 hyperlipidemia #5 history of left ankle fracture currently wearing a boot #6 diabetes mellitus type 2 [id number] Plan: -Admitted to medicine for close monitoring -Aspiration/fall precaution -Continue with IV Rocephin, obtain urine cultures given recurrent history of UTIs -Pain control when necessary with [place] and morphine 1 mg -Continue temperature lactic acid until normalized -IV fluids for a TIA. Continue to monitor creatinine level daily avoid nephrotoxic agents -Patient received physical therapy at home -DVT prophylaxis heparin 3 times a day
[2021-04-14] MEDS: HEPARIN SODIUM,PORCINE/PF 5,000 UNIT/0.5 ML SYRINGE SQ SCH ×2 (16:39→21:21)
[2021-04-14] MEDS ORDERED: ACETAMINOPHEN TAB 500 MG TAB PO STA (23:24)
[2021-04-15] MEDS: SODIUM CHLORIDE 0.9% 1,000 ML IV SCH ×3 (05:28→20:52)
[2021-04-15] MEDS: HEPARIN SODIUM,PORCINE/PF 5,000 UNIT/0.5 ML SYRINGE SQ SCH ×3 (08:42→20:51)
--- NOTE | 2021-04-15 11:17 | P.CONS ---
History of Present Illness - Reason for Consult Consult date: 04/15/21 wound care - History of Present Illness This is a 75-year-old female who is known to the wound care center with a nonhealing ulceration to the left posterior calcaneus. Patient previously had a orthopedic intervention resulting and hardware being placed. One screw was removed because of a surgical wound dehiscence. At this time patient has been utilizing Santyl to the site. Original cause of wound was Not Known. The wound is currently classified as a Partial Thickness wound with etiology of Open Surgical Wound and is located on the Left,Posterior Calcaneus. The wound measures 2cm length x 0.4 cm width x 0.2cm depth; 1.728cm^2 area and 0.518cm^3 volume. There is no tunneling or undermining noted. There is a small amount of serous drainage noted. The wound margin is distinct with the outline attached to the wound base. There is minimal granulation within the wound bed. There is a moderate amount of necrotic tissue within the wound bed including Adherent Slough. The periwound skin appearance exhibited: Maceration, Erythema, ecchymosis. The periwound skin appearance did not exhibit: Callus, Crepitus, Excoriation, Induration, Rash, Scarring, Dry/Scaly, Atrophie Jacque, Cyanosis, Hemosiderin Staining, Mottled, Pallor, Rubor. The surrounding wound skin color is noted with erythema which is circumferential. Periwound temperature was noted as No Abnormality. Review Of Systems: Constitutional: No fever, no chills, no night sweats. No weight change. No weakness, fatigue or lethargy. No daytime sleepiness. Integumentary:reports wounds, no lesions. No rash or pruritus. No unusual bruising. No change in hair or nails. Physical exam: General Appearance: Alert, cooperative, no distress, appears stated age. Skin: See HPI all other Skin color, texture, tugor normal, no rashes or lesions. Neurologic: Alert oriented x3 Assessment: 1. Pressure ulcer of left heel stage II 2. Type 2 diabetes with foot ulcer Plan: 1. Apply absorptive silver, saline moistened gauze, border foam. Change Tuesday. Utilize foam heel protectors. Patient's next appointment in the wound care center is April 23 at 1:45. Thank you for the consultation any questions please contact the wound care center DNP note has been reviewed and discussed with Dr. Kim and the impression and plan of care has been directed as dictated. Past Medical History Past Medical History: Coronary Artery Disease (CAD), Diabetes Mellitus, Hyperlipidemia, Hypertension Additional Past Medical History / Comment(s): mild, wound care center for left. left broken ankle. History of Any Multi-Drug Resistant Organisms: None Reported Past Surgical History: Cholecystectomy, Heart Catheterization With Stent, Orthopedic Surgery Additional Past Surgical History / Comment(s): hip surgery, cataract sx, left ankle surgery 2020 Past Anesthesia/Blood Transfusion Reactions: No Reported Reaction Date of Last Stent Placement:: 2000 Past Psychological History: No Psychological Hx Reported Smoking Status: Never smoker Past Alcohol Use History: None Reported Past Drug Use History: None Reported Medications and Allergies Home Medications Medication Instructions Recorded Confirmed Type Donepezil [Aricept] 5 mg PO HS 09/14/20 04/14/21 History Latanoprost/Pf [Latanoprost 0.005% 1 drop BOTH EYES HS 09/14/20 04/14/21 History Eye Drop] Sodium Bicarbonate Tab 650 mg PO TID #90 tab 11/20/20 04/14/21 Rx Cholecalciferol (Vitamin D3) 125 mcg PO DAILY 12/25/20 04/14/21 History [Vitamin D3 (125 MCG = 5,000 IU)] Iron Polysaccharide Complex 150 mg PO DAILY 12/25/20 04/14/21 History [Ferrex 150] Metoprolol Succinate (ER) [Toprol 100 mg PO DAILY 12/25/20 04/14/21 History XL] OLANZapine [ZyPREXA] 2.5 mg PO HS 12/25/20 04/14/21 History Pantoprazole Sodium [Protonix] 40 mg PO DAILY 12/25/20 04/14/21 History Simvastatin [Zocor] 20 mg PO HS 12/25/20 04/14/21 History amLODIPine [Norvasc] 5 mg PO DAILY 12/25/20 04/14/21 History Glimepiride [Amaryl] 4 mg PO DAILY 04/14/21 04/14/21 History Allergies Allergy/AdvReac Type Severity Reaction Status Date / Time No Known Allergies Allergy Verified 04/14/21 15:54 Physical Exam Vitals: Vital Signs Temp Pulse Pulse Resp BP BP Pulse Ox 04/15/21 08:00 96 18 04/15/21 07:00 97.8 F 96 18 126/62 98 04/15/21 01:26 97.5 F L 89 17 117/71 98 04/14/21 20:22 98.2 F 101 H 18 145/73 98 04/14/21 18:35 83 17 110/58 100 04/14/21 17:00 86 17 103/62 100 04/14/21 14:58 93 18 124/69 99 04/14/21 12:14 97.7 F 91 20 78/45 98 Intake and Output 04/14/21 04/15/21 04/15/21 22:59 06:59 14:59 Intake Total 118 Balance 118 Intake: Oral 118 Other: Voiding Method Incontinent # Voids 0 1 Weight 54.431 kg Results CBC & Chem 7: 04/14/21 13:51 04/14/21 13:51 Labs: Abnormal Lab Results - Last 24 Hours (Table) 04/14/21 04/14/21 04/14/21 Range/Units 13:51 13:51 13:51 WBC 13.8 H (3.8-10.6) k/uL Hgb 11.3 L (11.4-16.0) gm/dL MCHC 29.9 L (31.0-37.0) g/dL RDW 17.8 H (11.5-15.5) % Plt Count 603 H (150-450) k/uL Neutrophils # 11.4 H (1.3-7.7) k/uL Sodium 136 L (137-145) mmol/L Carbon Dioxide 35 H (22-30) mmol/L BUN 23 H (7-17) mg/dL Creatinine 1.53 H (0.52-1.04) mg/dL Glucose 124 H (74-99) mg/dL Plasma Lactic Acid Lemuel (0.7-2.0) mmol/L Alkaline Phosphatase 149 H (38-126) U/L Total Protein 5.9 L (6.3-8.2) g/dL Albumin 2.6 L (3.5-5.0) g/dL Urine Appearance Cloudy H (Clear) Urine Protein 1+ H (Negative) Urine Blood Trace H (Negative) Ur Leukocyte Esterase Large H (Negative) Urine RBC 6 H (0-5) /hpf Urine WBC >182 H (0-5) /hpf Urine WBC Clumps Many H (None) /hpf Ur Squamous Epith Cells 6 H (0-4) /hpf Urine Bacteria Rare H (None) /hpf Urine Mucus Rare H (None) /hpf 04/14/21 Range/Units 13:51 WBC (3.8-10.6) k/uL Hgb (11.4-16.0) gm/dL MCHC (31.0-37.0) g/dL RDW (11.5-15.5) % Plt Count (150-450) k/uL Neutrophils # (1.3-7.7) k/uL Sodium (137-145) mmol/L Carbon Dioxide (22-30) mmol/L BUN (7-17) mg/dL Creatinine (0.52-1.04) mg/dL Glucose (74-99) mg/dL Plasma Lactic Acid Lemuel 2.1 H* (0.7-2.0) mmol/L Alkaline Phosphatase (38-126) U/L Total Protein (6.3-8.2) g/dL Albumin (3.5-5.0) g/dL Urine Appearance (Clear) Urine Protein (Negative) Urine Blood (Negative) Ur Leukocyte Esterase (Negative) Urine RBC (0-5) /hpf Urine WBC (0-5) /hpf Urine WBC Clumps (None) /hpf Ur Squamous Epith Cells (0-4) /hpf Urine Bacteria (None) /hpf Urine Mucus (None) /hpf Microbiology - Last 24 Hours (Table) 04/14/21 13:51 Urine Culture - Preliminary Urine,Catheterized Assessment and Plan (1) Diabetic foot ulcer Current Visit: No Status: Acute Code(s): E11.621 - TYPE 2 DIABETES MELLITUS WITH FOOT ULCER; L97.509 - NON-PRESSURE CHRONIC ULCER OTH PRT UNSP FOOT W UNSP SEVERITY SNOMED Code(s): 639159226 (2) Pressure ulcer of left heel, stage 2 Current Visit: No Status: Acute Code(s): L89.622 - PRESSURE ULCER OF LEFT HEEL, STAGE 2 SNOMED Code(s): 409648752
--- NOTE | 2021-04-15 11:39 | P.PN ---
Subjective Patient was examined at bedside not complaining of any new symptomatology. Family not present at bedside. I did speak to them yesterday in the emergency department. Case discussed with RN present at bedside. Overnight no events. Objective - Vital Signs Vital signs: Vital Signs Temp 97.8 F 04/15/21 07:00 Pulse 96 04/15/21 08:00 Resp 18 04/15/21 08:00 BP 126/62 04/15/21 07:00 Pulse Ox 98 04/15/21 07:00 Intake & Output 04/14/21 04/15/21 04/15/21 18:59 06:59 18:59 Intake Total 118 Balance 118 Weight 54.431 kg Intake: Oral 118 Other: Voiding Method Incontinent # Voids 1 - Exam General: Patient is awake alert oriented 2 Respiratory no wheezing or rhonchi appreciated Abdomen some suprapubic tenderness on palpation - improving today Cardio normal S1/S2 Neuro no neuro deficits noted Extremity: boot has been removed overnight. - Labs CBC & Chem 7: 04/14/21 13:51 04/14/21 13:51 Labs: Abnormal Lab Results - Last 24 Hours (Table) 04/14/21 04/14/21 04/14/21 Range/Units 13:51 13:51 13:51 WBC 13.8 H (3.8-10.6) k/uL Hgb 11.3 L (11.4-16.0) gm/dL MCHC 29.9 L (31.0-37.0) g/dL RDW 17.8 H (11.5-15.5) % Plt Count 603 H (150-450) k/uL Neutrophils # 11.4 H (1.3-7.7) k/uL Sodium 136 L (137-145) mmol/L Carbon Dioxide 35 H (22-30) mmol/L BUN 23 H (7-17) mg/dL Creatinine 1.53 H (0.52-1.04) mg/dL Glucose 124 H (74-99) mg/dL Plasma Lactic Acid Lemuel (0.7-2.0) mmol/L Alkaline Phosphatase 149 H (38-126) U/L Total Protein 5.9 L (6.3-8.2) g/dL Albumin 2.6 L (3.5-5.0) g/dL Urine Appearance Cloudy H (Clear) Urine Protein 1+ H (Negative) Urine Blood Trace H (Negative) Ur Leukocyte Esterase Large H (Negative) Urine RBC 6 H (0-5) /hpf Urine WBC >182 H (0-5) /hpf Urine WBC Clumps Many H (None) /hpf Ur Squamous Epith Cells 6 H (0-4) /hpf Urine Bacteria Rare H (None) /hpf Urine Mucus Rare H (None) /hpf 04/14/21 Range/Units 13:51 WBC (3.8-10.6) k/uL Hgb (11.4-16.0) gm/dL MCHC (31.0-37.0) g/dL RDW (11.5-15.5) % Plt Count (150-450) k/uL Neutrophils # (1.3-7.7) k/uL Sodium (137-145) mmol/L Carbon Dioxide (22-30) mmol/L BUN (7-17) mg/dL Creatinine (0.52-1.04) mg/dL Glucose (74-99) mg/dL Plasma Lactic Acid Lemuel 2.1 H* (0.7-2.0) mmol/L Alkaline Phosphatase (38-126) U/L Total Protein (6.3-8.2) g/dL Albumin (3.5-5.0) g/dL Urine Appearance (Clear) Urine Protein (Negative) Urine Blood (Negative) Ur Leukocyte Esterase (Negative) Urine RBC (0-5) /hpf Urine WBC (0-5) /hpf Urine WBC Clumps (None) /hpf Ur Squamous Epith Cells (0-4) /hpf Urine Bacteria (None) /hpf Urine Mucus (None) /hpf Microbiology - Last 24 Hours (Table) 04/14/21 13:51 Urine Culture - Preliminary Urine,Catheterized Assessment and Plan Assessment: Assessment: #1 sepsis secondary to urinary tract infection #2 leukocytosis secondary to above #3 Lactic acidosis secondary to sepsis - RESOLVED. #4 hyperlipidemia #5 history of left ankle fracture currently wearing a boot #6 diabetes mellitus type 2 [id number] Plan: -Admitted to medicine for close monitoring -Aspiration/fall precaution -Continue with IV Rocephin, obtain urine cultures given recurrent history of UTIs with E. coli and Pseudomonas. Recent one being E. Coli. -Pain control when necessary with Letcher and morphine 1 mg -Patient received physical therapy at home -Pending morning labs to evaluate for CADE and leukocytosis. -DVT prophylaxis heparin 3 times a day
[2021-04-15 12:39] LABS: African American GFR (CKD) 47 (>60 ml/min/1.73 sqM); Anion Gap 5 mmol/L; Blood Urea Nitrogen 18 mg/dL (7-17); Calcium 8.5 mg/dL (8.4-10.2); Carbon Dioxide 26 mmol/L (22-30); Chloride 106 mmol/L (98-107); Glucose 189 mg/dL (74-99); Non-African American GFR(CKD) 41 (>60 ml/min/1.73 sqM); Potassium 4.7 mmol/L (3.5-5.1); Sodium 137 mmol/L (137-145)
[2021-04-15 18:30] LABS: Basophils # (A) 0.08 X 10*3/uL (0.00-0.10); Basophils % (A) 0.8 %; Eosinophils # (A) 0.19 X 10*3/uL (0.04-0.35); Eosinophils % (A) 1.8 %; HCT 37.3 % (37.2-46.3); HGB 10.6 g/dL (12.0-15.0); Immature Grans, Automated 2.8 %; Lymphocytes # (A) 1.59 X 10*3/uL (0.90-5.00); MCH 25.1 pg (27.0-32.0); MCHC 28.4 g/dL (32.0-37.0); MCV 88.4 fL (80.0-97.0); Mean Platelet Volume 9.8 fL (9.5-12.2); Monocytes # (A) 0.58 X 10*3/uL (0.20-1.00); Monocytes % (A) 5.5 %; NRBC Per 100 WBC 0 /100 WBCS (0.0-0.0); Neutrophils # (A) 7.88 X 10*3/uL (1.80-7.70); Neutrophils % (A) 74.1 %; Platelet Count 470 X 10*3/uL (140-440); RBC 4.22 X 10*6/uL (4.10-5.20); RDW 19.9 % (11.5-14.5); WBC 10.62 X 10*3/uL (4.50-10.00)
[2021-04-15] MEDS: LATANOPROST 0.005% OPHTH DROPS 2.5 ML BTL BOTH EYES SCH (20:51)
[2021-04-15] MEDS: DONEPEZIL 5 MG TAB PO SCH (20:51)
[2021-04-15] MEDS: OLANZapine 2.5 MG TAB PO SCH (20:51)
[2021-04-15] MEDS: ATORVASTATIN 10 MG TAB PO SCH (20:51)
[2021-04-16] MEDS: SODIUM CHLORIDE 0.9% 1,000 ML IV SCH ×3 (05:15→21:39)
[2021-04-16] MEDS: PANTOPRAZOLE 40 MG TABLET PO SCH (09:22)
[2021-04-16] MEDS: amLODIPine 5 MG TAB PO SCH (09:22)
[2021-04-16] MEDS: METOPROLOL SUCCINATE (ER) 100 MG TAB.ER.24H PO SCH (09:22)
[2021-04-16] MEDS: HEPARIN SODIUM,PORCINE/PF 5,000 UNIT/0.5 ML SYRINGE SQ SCH ×3 (09:23→21:47)
[2021-04-16 12:26] LABS: Basophils # (A) 0.11 X 10*3/uL (0.00-0.10); Eosinophils # (A) 0.37 X 10*3/uL (0.04-0.35); Eosinophils % (A) 3.5 %; HCT 34.9 % (37.2-46.3); HGB 9.9 g/dL (12.0-15.0); Immature Grans, Automated 3.1 %; Lymphocytes # (A) 2.15 X 10*3/uL (0.90-5.00); Lymphocytes % (A) 20.1 %; MCH 25.3 pg (27.0-32.0); MCHC 28.4 g/dL (32.0-37.0); Mean Platelet Volume 9.5 fL (9.5-12.2); Monocytes # (A) 0.62 X 10*3/uL (0.20-1.00); Monocytes % (A) 5.8 %; NRBC Per 100 WBC 0 /100 WBCS (0.0-0.0); Neutrophils % (A) 66.5 %; Platelet Count 424 X 10*3/uL (140-440); RBC 3.92 X 10*6/uL (4.10-5.20); RDW 19.9 % (11.5-14.5); WBC 10.68 X 10*3/uL (4.50-10.00)
[2021-04-16 13:54] LABS: African American GFR (CKD) 56.9 (60.0-200.0); BUN/Creat Ratio 10.73 Ratio (12.00-20.00); Blood Urea Nitrogen 11.8 mg/dL (9.0-27.0); Calcium 8.3 mg/dL (8.7-10.3); Non-African American GFR(CKD) 49.1 (60.0-200.0); Potassium 4.4 mmol/L (3.5-5.5)
--- NOTE | 2021-04-16 14:28 | P.PN ---
Subjective Patient was examined at bedside today not complaining of any new symptomatology. We'll continue to wait for final microbiology. Objective - Vital Signs Vital signs: Vital Signs Temp 97.8 F 04/16/21 07:00 Pulse 96 04/16/21 09:21 Resp 16 04/16/21 07:00 BP 140/71 04/16/21 07:00 Pulse Ox 100 04/16/21 07:00 Intake & Output 04/15/21 04/16/21 04/16/21 18:59 06:59 18:59 Intake Total 478 Output Total 500 300 Balance 478 -500 -300 Intake: Oral 478 Output: Urine 500 300 Other: Voiding Method Incontinent Incontinent External Catheter # Voids 1 1 # Bowel Movements 1 1 - Exam General: Patient is awake alert oriented 2 Respiratory no wheezing or rhonchi appreciated Abdomen some suprapubic tenderness on palpation - improving today Cardio normal S1/S2 Neuro no neuro deficits noted Extremity: boot has been removed overnight. - Labs CBC & Chem 7: 04/16/21 07:35 04/16/21 07:35 Labs: Abnormal Lab Results - Last 24 Hours (Table) 04/15/21 04/16/21 04/16/21 Range/Units 11:34 07:35 07:35 WBC 10.62 H 10.68 H (4.50-10.00) X 10*3/uL RBC 3.92 L (4.10-5.20) X 10*6/uL Hgb 10.6 L 9.9 L (12.0-15.0) g/dL Hct 34.9 L (37.2-46.3) % MCH 25.1 L 25.3 L (27.0-32.0) pg MCHC 28.4 L 28.4 L (32.0-37.0) g/dL RDW 19.9 H 19.9 H (11.5-14.5) % Plt Count 470 H (140-440) X 10*3/uL Immature Gran # 0.30 H 0.33 H (0.00-0.04) X 10*3/uL Neutrophils # 7.88 H (1.80-7.70) X 10*3/uL Eosinophils # 0.37 H (0.04-0.35) X 10*3/uL Basophils # 0.11 H (0.00-0.10) X 10*3/uL Est GFR (CKD-EPI)AfAm 56.9 L (60.0-200.0) Est GFR (CKD-EPI)NonAf 49.1 L (60.0-200.0) BUN/Creatinine Ratio 10.73 L (12.00-20.00) Ratio Calcium 8.3 L (8.7-10.3) mg/dL Microbiology - Last 24 Hours (Table) 04/14/21 13:51 Urine Culture - Preliminary Urine,Catheterized Gram Neg Bacilli 04/14/21 13:51 Blood Culture - Preliminary Blood No Growth after 24 hours 04/14/21 13:51 Blood Culture - Preliminary Blood No Growth after 24 hours Assessment and Plan Assessment: Assessment: #1 sepsis secondary to urinary tract infection #2 leukocytosis secondary to above #3 Lactic acidosis secondary to sepsis - RESOLVED. #4 hyperlipidemia #5 history of left ankle fracture currently wearing a boot #6 diabetes mellitus type 2 [id number] Plan: -Admitted to medicine for close monitoring -Aspiration/fall precaution -Continue with IV Rocephin, obtain urine cultures given recurrent history of UTIs with E. coli and Pseudomonas. Recent one being E. Coli. -Pain control when necessary with Harris and morphine 1 mg -Patient received physical therapy at home -DVT prophylaxis heparin 3 times a day
[2021-04-16] MEDS ORDERED: ACETAMINOPHEN TAB 500 MG TAB PO STA (18:36)
[2021-04-16] MEDS: LATANOPROST 0.005% OPHTH DROPS 2.5 ML BTL BOTH EYES SCH (21:39)
[2021-04-16] MEDS: DONEPEZIL 5 MG TAB PO SCH (21:39)
[2021-04-16] MEDS: ATORVASTATIN 10 MG TAB PO SCH (21:39)
[2021-04-16] MEDS: OLANZapine 2.5 MG TAB PO SCH (21:39)
[2021-04-17] MEDS: SODIUM CHLORIDE 0.9% 1,000 ML IV SCH (05:13)
[2021-04-17 07:20] VITALS: RESP 20
[2021-04-17] MEDS: PANTOPRAZOLE 40 MG TABLET PO SCH (09:20)
[2021-04-17] MEDS: amLODIPine 5 MG TAB PO SCH (09:20)
[2021-04-17] MEDS: METOPROLOL SUCCINATE (ER) 100 MG TAB.ER.24H PO SCH (09:20)
[2021-04-17] MEDS: HEPARIN SODIUM,PORCINE/PF 5,000 UNIT/0.5 ML SYRINGE SQ SCH (09:20)
--- NOTE | 2021-04-17 14:06 | P.DS ---
Providers Date of admission: 04/15/21 09:59 Expected date of discharge: 04/17/21 Attending physician: Naun Perkins MD Primary care physician: Anand Flaherty MD Hospital Course: Patient is a 76-year-old female with a past medical history mild dementia, hyperlipidemia, GERD, diabetes mellitus nonindependent presents to the hospital secondary to weakness, dehydration and urinary tract infection. Patient instructed by her home nurse to visit the emergency department she noted increased weakness and some suprapubic tenderness. Patient has been complaining of mild dysuria and does have a history of recurrent urinary tract infections. Of note she recently had a ankle fracture and follows up with orthopedic service. She currently wears a boot that can be removed at nighttime when she is resting however needs to be worn at any point when she is ambulating or any weight put on. Patient was examined in the emergency department was found to be septic secondary to UTI. Tachycardic at 93, lactic acid elevated, with an elevated red blood cell count of 13.8. His platelet count was 603, sodium 136 and creatinine of 1.53. Patient was examined about serotonin accompanying of any new symptomatology. Micrology has been reviewed which grew E. coli which is pretty pansensitive including cefoxitin. The follow discharge the patient with 4 more days of Ceftin 500 mg twice a day. Patient is asked to follow with primary care doctor within 1 week of discharge. Vital signs today are stable patient is afebrile normal tensive 135/78, leukocytosis trending down from 13.8-10.6 cranny level has also been stabilized at 1.1. Lactic acid on admission was 2. 1 repeat on April 14 1.3 which is normal. Patient Condition at Discharge: Serious Plan - Discharge Summary Discharge Rx Participant: No New Discharge Prescriptions: New Cefuroxime Axetil [Ceftin] 500 mg PO BID 5 Days #10 tab Continue Latanoprost/Pf [Latanoprost 0.005% Eye Drop] 1 drop BOTH EYES HS Donepezil [Aricept] 5 mg PO HS Pantoprazole Sodium [Protonix] 40 mg PO DAILY Metoprolol Succinate (ER) [Toprol XL] 100 mg PO DAILY Iron Polysaccharide Complex [Ferrex 150] 150 mg PO DAILY OLANZapine [ZyPREXA] 2.5 mg PO HS Glimepiride [Amaryl] 4 mg PO DAILY Sodium Bicarbonate Tab 650 mg PO TID #90 tab amLODIPine [Norvasc] 5 mg PO DAILY Cholecalciferol (Vitamin D3) [Vitamin D3 (125 MCG = 5,000 IU)] 125 mcg PO DAILY Simvastatin [Zocor] 20 mg PO HS Discharge Medication List Donepezil [Aricept] 5 mg PO HS 09/14/20 [History] Latanoprost/Pf [Latanoprost 0.005% Eye Drop] 1 drop BOTH EYES HS 09/14/20 [History] Sodium Bicarbonate Tab 650 mg PO TID #90 tab 11/20/20 [Rx] Cholecalciferol (Vitamin D3) [Vitamin D3 (125 MCG = 5,000 IU)] 125 mcg PO DAILY 12/25/20 [History] Iron Polysaccharide Complex [Ferrex 150] 150 mg PO DAILY 12/25/20 [History] Metoprolol Succinate (ER) [Toprol XL] 100 mg PO DAILY 12/25/20 [History] OLANZapine [ZyPREXA] 2.5 mg PO HS 12/25/20 [History] Pantoprazole Sodium [Protonix] 40 mg PO DAILY 12/25/20 [History] Simvastatin [Zocor] 20 mg PO HS 12/25/20 [History] amLODIPine [Norvasc] 5 mg PO DAILY 12/25/20 [History] Glimepiride [Amaryl] 4 mg PO DAILY 04/14/21 [History] Cefuroxime Axetil [Ceftin] 500 mg PO BID 5 Days #10 tab 04/17/21 [Rx] Follow up Appointment(s)/Referral(s): [facility], [NON-STAFF] - 1-2 Days Anand Flaherty MD [Primary Care Provider] - 1-2 days [facility] [NON-STAFF] - 1 Week [facility] [NON-STAFF] - 04/23/21 1:45 pm
[2021-04-17 14:28] VITALS: BP 115/68; PULSE 87; TEMP 97.5
== END 2021-04-17 16:20 | disposition home health service (06) | DRG 872 ==
LOC: EC 12:05 → 6NMEDSUR 14:40 → OBSVTOIN 04-15 09:59
PROVIDERS: ADMIT Internal Medicine; ATTEND Internal Medicine
DX: A41.9 Sepsis, unspecified organism (principal); E87.2 Acidosis; N39.0 Urinary tract infection, site not specified; B96.20 Unspecified Escherichia coli [E. coli] as the cause of diseases classified elsewhere; I25.10 Atherosclerotic heart disease of native coronary artery without angina pectoris; E86.0 Dehydration; Z20.822 Contact with and (suspected) exposure to COVID-19; S82.892D Other fracture of left lower leg, subsequent encounter for closed fracture with routine healing; L89.622 Pressure ulcer of left heel, stage 2; L97.509 Non-pressure chronic ulcer of other part of unspecified foot with unspecified severity; K21.9 Gastro-esophageal reflux disease without esophagitis; E11.621 Type 2 diabetes mellitus with foot ulcer; E78.5 Hyperlipidemia, unspecified; F03.90 Unspecified dementia, unspecified severity, without behavioral disturbance, psychotic disturbance, mood disturbance, and anxiety; I10 Essential (primary) hypertension; Z79.84 Long term (current) use of oral hypoglycemic drugs; Z79.899 Other long term (current) drug therapy; Z87.440 Personal history of urinary (tract) infections; Z96.1 Presence of intraocular lens; Y84.8 Other medical procedures as the cause of abnormal reaction of the patient, or of later complication, without mention of misadventure at the time of the procedure; Z90.49 Acquired absence of other specified parts of digestive tract; Z98.49 Cataract extraction status, unspecified eye; Z95.5 Presence of coronary angioplasty implant and graft
CPT/HCPCS: 36415; 80048; 80053; 81001; 83605; 85025; 85610; 85730; 87040; 87077; 87086; 87186; 87635; 96374; 99285

== ENCOUNTER 2021-06-13 12:06 | Inpatient (IN) | payer MEDICARE ==
[2021-06-13] MEDS ORDERED: SODIUM CHLORIDE 0.9% 500 ML 500 ML IV ONE (12:57)
--- NOTE | 2021-06-13 14:13 | ED ---
Altered Mental Status HPI - General Source: EMS Mode of arrival: EMS Limitations: language barrier <Torres Sheppard - Last Filed: 06/13/21 18:25> <Rober Licona - Last Filed: 06/13/21 21:40> - General Chief Complaint: Altered Mental Status Stated Complaint: UTI Time Seen by Provider: 06/13/21 12:09 - History of Present Illness Initial Comments: Patient is a 76-year-old female with multiple comorbidities presenting for evaluation of low blood pressure at home. Patient's family is present at bedside, they state they are concerned for UTI as she is prone to them and has had a change in mental status within the recent days. She currently has 2 known wounds to the foot occurring after a surgery, she has a home health nurse practitioner who she sees weekly treating the wounds. Her daughter states that lately her feces has been dark and sticky, she is frequently defecating. Family at bedside denies any falls at home. I am unable to gather history directly from the patient at this time due to her altered mental status. Caregivers deny indications of chest pain, shortness of breath, abdominal pain, nausea, vomiting, fever, chills, rash, hematuria, dysuria. (Torres Sheppard) - Related Data Home Medications Medication Instructions Recorded Confirmed Latanoprost/Pf [Latanoprost 0.005% 1 drop BOTH EYES HS 09/14/20 06/13/21 Eye Drop] Cholecalciferol (Vitamin D3) 125 mcg PO DAILY 12/25/20 06/13/21 [Vitamin D3 (125 MCG = 5,000 IU)] Iron Polysaccharide Complex 150 mg PO DAILY 12/25/20 06/13/21 [Ferrex 150] Metoprolol Succinate (ER) [Toprol 100 mg PO DAILY 12/25/20 06/13/21 XL] Pantoprazole Sodium [Protonix] 40 mg PO DAILY 12/25/20 06/13/21 Simvastatin [Zocor] 20 mg PO HS 12/25/20 06/13/21 amLODIPine [Norvasc] 5 mg PO DAILY 12/25/20 06/13/21 Aspirin EC [Ecotrin Low Dose] 81 mg PO DAILY 06/13/21 06/13/21 Collagenase [Santyl Ointment] 1 applic TOPICAL DAILY 06/13/21 06/13/21 Diphenoxylate HCl/Atropine 2 tab PO QID PRN 06/13/21 06/13/21 [Lomotil 2.5-0.025 mg Tablet] Insulin Lispro [humaLOG Kwikpen] See Protocol SQ AC-TID PRN 06/13/21 06/13/21 Ondansetron Odt [Zofran Odt] 4 mg PO Q12HR PRN 06/13/21 06/13/21 glipiZIDE [Glucotrol] 2.5 mg PO BID 06/13/21 06/13/21 Previous Rx's Medication Instructions Recorded Sodium Bicarbonate Tab 650 mg PO TID #90 tab 11/20/20 Allergies Allergy/AdvReac Type Severity Reaction Status Date / Time No Known Allergies Allergy Verified 06/13/21 18:04 Review of Systems ROS Other: All systems not noted in ROS Statement are negative. <Torres Sheppard - Last Filed: 06/13/21 18:25> ROS Other: All systems not noted in ROS Statement are negative. <Rober Licona - Last Filed: 06/13/21 21:40> ROS Statement: Those systems with pertinent positive or pertinent negative responses have been documented in the HPI. Past Medical History Past Medical History: Coronary Artery Disease (CAD), Diabetes Mellitus, Hyperlipidemia, Hypertension Additional Past Medical History / Comment(s): mild, wound care center for left. left broken ankle. History of Any Multi-Drug Resistant Organisms: None Reported Past Surgical History: Cholecystectomy, Heart Catheterization With Stent, Orthopedic Surgery Additional Past Surgical History / Comment(s): hip surgery, cataract sx, left ankle surgery 2020 Past Anesthesia/Blood Transfusion Reactions: No Reported Reaction Date of Last Stent Placement:: 2000 Past Psychological History: No Psychological Hx Reported Smoking Status: Never smoker Past Alcohol Use History: None Reported Past Drug Use History: None Reported <Torres Sheppard - Last Filed: 06/13/21 18:25> General Exam Limitations: language barrier, altered mental status, physical limitation General appearance: obtunded Head exam: Present: atraumatic, normocephalic, normal inspection Eye exam: Present: normal appearance, PERRL, EOMI. Absent: scleral icterus, conjunctival injection, periorbital swelling Neck exam: Present: normal inspection Respiratory exam: Present: normal lung sounds bilaterally. Absent: respiratory distress, wheezes, rales, rhonchi, stridor Cardiovascular Exam: Present: regular rate, normal rhythm, normal heart sounds. Absent: systolic murmur, diastolic murmur, rubs, gallop, clicks GI/Abdominal exam: Present: soft, normal bowel sounds. Absent: distended, tenderness, guarding, rebound, rigid Rectal exam: Present: normal inspection, normal rectal tone. Absent: bloody stool, fecal impaction Neurological exam: Present: altered, CN II-XII intact Expanded Type of lesion: Present: other (stage 3 pressure ulcer) Distribution of rash: LLE (L foot) <Torres Sheppard - Last Filed: 06/13/21 18:25> Course Vital Signs 06/13/21 06/13/21 06/13/21 12:17 12:33 13:52 Temperature 97.5 F L Pulse Rate 90 97 Respiratory 14 12 Rate Blood Pressure 74/40 103/81 94/53 O2 Sat by Pulse 98 98 Oximetry 06/13/21 06/13/21 06/13/21 16:22 16:59 17:07 Temperature Pulse Rate 67 Respiratory Rate Blood Pressure 81/51 86/48 91/55 O2 Sat by Pulse 98 Oximetry 06/13/21 06/13/21 17:52 18:19 Temperature Pulse Rate 67 79 Respiratory 12 14 Rate Blood Pressure 87/52 93/51 O2 Sat by Pulse 100 100 Oximetry Procedures - Central Line Placement Right Femoral Consent Obtained: emergent situation Patient Placed on Monitor/Pulse Ox: Yes Prep: mask, gown, gloves Central Line Prep: Chlorhexidine scrub, sterile drapes applied Local Anesthesia Used: Lidocaine 1% Amount of Anesthesia Used (mls): 2 Ultrasound Used for Placement: No Central Line Lumen Inserted: triple Bloods Obtained for Lab: No Central Line Position: good blood return, all ports aspirated, flushed, capped, sutured in place with nylon Dressing Applied: Tegaderm Patient Tolerated Procedure: well, no complications Complications: none <Rober Licona - Last Filed: 06/13/21 21:40> - Central Line Placement Right Femoral Additional Comments: Right femoral central line was placed due to blown peripheral IV line, inability to reestablish peripheral IV access and urgent need for IV access. (Rober Licona) Medical Decision Making - Lab Data Result diagrams: 06/13/21 14:30 06/13/21 14:30 - EKG Data -: EKG Interpreted by Me (EKG was also shown to and interpreted by my attending Dr. Licona) EKG shows normal: sinus rhythm <Torres Sheppard - Last Filed: 06/13/21 18:25> - Lab Data Result diagrams: 06/13/21 14:30 06/13/21 14:30 <Rober Licona - Last Filed: 06/13/21 21:40> - Medical Decision Making Patient is a 76-year-old female presenting with chief complaint of hypotension. Patient lives with family and she is unable to care for herself. They stated that not only was she having persistent low blood pressure at home today but her mental status was declining and they are aware that she is prone to UTIs. Her daughter states that her stool has been darker and sticky. On examination there are bowel sounds in all 4 quadrants, abdomen is soft, nontender, nondistended. Lungs have diffuse expiratory radials on auscultation. On rectal exam no javier blood noted. Lab work is remarkable for hemoglobin of 10. The patient is hyponatremic with sodium of 131 and hypokalemic with potassium of 3.4. BUN and creatinine are elevated, likely a combination of chronic kidney disease and dehydration. UA shows signs of UTI. Stool occult blood is negative. Chest x- ray shows bilateral pleural effusions that are improved compared to last exam. Patient will be admitted for dehydration and treatment of UTI. She was given 1.5 L fluid bolus, placed on maintenance normal saline with rate of 130 mls per hour. (Torres Sheppard) - Lab Data Lab Results 06/13/21 06/13/21 06/13/21 Range/Units 14:30 14:30 14:30 WBC 8.4 (3.8-10.6) k/uL RBC 3.69 L (3.80-5.40) m/uL Hgb 10.0 L (11.4-16.0) gm/dL Hct 32.8 L (34.0-46.0) % MCV 88.9 (80.0-100.0) fL MCH 26.9 (25.0-35.0) pg MCHC 30.3 L (31.0-37.0) g/dL RDW 16.2 H (11.5-15.5) % Plt Count 444 (150-450) k/uL MPV 7.0 Neutrophils % 81 % Lymphocytes % 14 % Monocytes % 3 % Eosinophils % 2 % Basophils % 0 % Neutrophils # 6.8 (1.3-7.7) k/uL Lymphocytes # 1.2 (1.0-4.8) k/uL Monocytes # 0.2 (0-1.0) k/uL Eosinophils # 0.1 (0-0.7) k/uL Basophils # 0.0 (0-0.2) k/uL Anisocytosis Slight PT 13.1 H (9.0-12.0) sec INR 1.2 H (<1.2) APTT 28.0 (22.0-30.0) sec Sodium (137-145) mmol/L Potassium (3.5-5.1) mmol/L Chloride (98-107) mmol/L Carbon Dioxide (22-30) mmol/L Anion Gap mmol/L BUN (7-17) mg/dL Creatinine (0.52-1.04) mg/dL Est GFR (CKD-EPI)AfAm (>60 ml/min/1.73 sqM) Est GFR (CKD-EPI)NonAf (>60 ml/min/1.73 sqM) Glucose (74-99) mg/dL Plasma Lactic Acid Lemuel (0.7-2.0) mmol/L Calcium (8.4-10.2) mg/dL Total Bilirubin (0.2-1.3) mg/dL AST (14-36) U/L ALT (4-34) U/L Alkaline Phosphatase (38-126) U/L Ammonia (<30) umol/L Troponin I (0.000-0.034) ng/mL Total Protein (6.3-8.2) g/dL Albumin (3.5-5.0) g/dL Urine Color Urine Appearance (Clear) Urine pH (5.0-8.0) Ur Specific [place] (1.001-1.035) Urine Protein (Negative) Urine Glucose (UA) (Negative) Urine Ketones (Negative) Urine Blood (Negative) Urine Nitrite (Negative) Urine Bilirubin (Negative) Urine Urobilinogen (<2.0) mg/dL Ur Leukocyte Esterase (Negative) Urine RBC (0-5) /hpf Urine WBC (0-5) /hpf Urine WBC Clumps (None) /hpf Ur Squamous Epith Cells (0-4) /hpf Urine Bacteria (None) /hpf Hyaline Casts (0-2) /lpf Urine Mucus (None) /hpf Stool Occult Blood Negative (Negative) 06/13/21 06/13/21 06/13/21 Range/Units 14:30 14:30 14:30 WBC (3.8-10.6) k/uL RBC (3.80-5.40) m/uL Hgb (11.4-16.0) gm/dL Hct (34.0-46.0) % MCV (80.0-100.0) fL MCH (25.0-35.0) pg MCHC (31.0-37.0) g/dL RDW (11.5-15.5) % Plt Count (150-450) k/uL MPV Neutrophils % % Lymphocytes % % Monocytes % % Eosinophils % % Basophils % % Neutrophils # (1.3-7.7) k/uL Lymphocytes # (1.0-4.8) k/uL Monocytes # (0-1.0) k/uL Eosinophils # (0-0.7) k/uL Basophils # (0-0.2) k/uL Anisocytosis PT (9.0-12.0) sec INR (<1.2) APTT (22.0-30.0) sec Sodium 131 L (137-145) mmol/L Potassium 3.4 L (3.5-5.1) mmol/L Chloride 92 L (98-107) mmol/L Carbon Dioxide 33 H (22-30) mmol/L Anion Gap 6 mmol/L BUN 71 H (7-17) mg/dL Creatinine 1.90 H (0.52-1.04) mg/dL Est GFR (CKD-EPI)AfAm 29 (>60 ml/min/1.73 sqM) Est GFR (CKD-EPI)NonAf 25 (>60 ml/min/1.73 sqM) Glucose 98 (74-99) mg/dL Plasma Lactic Acid Lemuel 1.1 (0.7-2.0) mmol/L Calcium 7.5 L (8.4-10.2) mg/dL Total Bilirubin 0.7 (0.2-1.3) mg/dL AST 18 (14-36) U/L ALT 6 (4-34) U/L Alkaline Phosphatase 157 H (38-126) U/L Ammonia <9 (<30) umol/L Troponin I 0.027 (0.000-0.034) ng/mL Total Protein 5.4 L (6.3-8.2) g/dL Albumin 2.2 L (3.5-5.0) g/dL Urine Color Urine Appearance (Clear) Urine pH (5.0-8.0) Ur Specific [place] (1.001-1.035) Urine Protein (Negative) Urine Glucose (UA) (Negative) Urine Ketones (Negative) Urine Blood (Negative) Urine Nitrite (Negative) Urine Bilirubin (Negative) Urine Urobilinogen (<2.0) mg/dL Ur Leukocyte Esterase (Negative) Urine RBC (0-5) /hpf Urine WBC (0-5) /hpf Urine WBC Clumps (None) /hpf Ur Squamous Epith Cells (0-4) /hpf Urine Bacteria (None) /hpf Hyaline Casts (0-2) /lpf Urine Mucus (None) /hpf Stool Occult Blood (Negative) 06/13/21 Range/Units 14:46 WBC (3.8-10.6) k/uL RBC (3.80-5.40) m/uL Hgb (11.4-16.0) gm/dL Hct (34.0-46.0) % MCV (80.0-100.0) fL MCH (25.0-35.0) pg MCHC (31.0-37.0) g/dL RDW (11.5-15.5) % Plt Count (150-450) k/uL MPV Neutrophils % % Lymphocytes % % Monocytes % % Eosinophils % % Basophils % % Neutrophils # (1.3-7.7) k/uL Lymphocytes # (1.0-4.8) k/uL Monocytes # (0-1.0) k/uL Eosinophils # (0-0.7) k/uL Basophils # (0-0.2) k/uL Anisocytosis PT (9.0-12.0) sec INR (<1.2) APTT (22.0-30.0) sec Sodium (137-145) mmol/L Potassium (3.5-5.1) mmol/L Chloride (98-107) mmol/L Carbon Dioxide (22-30) mmol/L Anion Gap mmol/L BUN (7-17) mg/dL Creatinine (0.52-1.04) mg/dL Est GFR (CKD-EPI)AfAm (>60 ml/min/1.73 sqM) Est GFR (CKD-EPI)NonAf (>60 ml/min/1.73 sqM) Glucose (74-99) mg/dL Plasma Lactic Acid Lemuel (0.7-2.0) mmol/L Calcium (8.4-10.2) mg/dL Total Bilirubin (0.2-1.3) mg/dL AST (14-36) U/L ALT (4-34) U/L Alkaline Phosphatase (38-126) U/L Ammonia (<30) umol/L Troponin I (0.000-0.034) ng/mL Total Protein (6.3-8.2) g/dL Albumin (3.5-5.0) g/dL Urine Color Yellow Urine Appearance Cloudy H (Clear) Urine pH 5.0 (5.0-8.0) Ur Specific [place] 1.019 (1.001-1.035) Urine Protein Negative (Negative) Urine Glucose (UA) Negative (Negative) Urine Ketones Negative (Negative) Urine Blood Negative (Negative) Urine Nitrite Negative (Negative) Urine Bilirubin Negative (Negative) Urine Urobilinogen 2.0 (<2.0) mg/dL Ur Leukocyte Esterase Large H (Negative) Urine RBC 6 H (0-5) /hpf Urine WBC 56 H (0-5) /hpf Urine WBC Clumps Occasional H (None) /hpf Ur Squamous Epith Cells 1 (0-4) /hpf Urine Bacteria Many H (None) /hpf Hyaline Casts 8 H (0-2) /lpf Urine Mucus Rare H (None) /hpf Stool Occult Blood (Negative) - EKG Data EKG Comments: Sinus rhythm with occasional supraventricular premature complexes. Prolonged QT interval of 467. VT interval of 127. Rate of 72. (Torres Sheppard) Disposition Time of Disposition: 18:28 Decision to Admit Reason: Admit from EC Decision Date: 06/13/21 Decision Time: 18:28 <Torres Sheppard - Last Filed: 06/13/21 18:25> <Rober Licona - Last Filed: 06/13/21 21:40> Clinical Impression: Hypotension Disposition: ADMITTED IP TO THIS HOSP Condition: Fair
[2021-06-13 14:47] LABS: Anisocytosis Slight; Basophils % (A) 0 %; Eosinophils # (A) 0.1 k/uL (0-0.7); Eosinophils % (A) 2 %; HCT 32.8 % (34.0-46.0); Lymphocytes # (A) 1.2 k/uL (1.0-4.8); Lymphocytes % (A) 14 %; MCH 26.9 pg (25.0-35.0); MCHC 30.3 g/dL (31.0-37.0); MCV 88.9 fL (80.0-100.0); Monocytes # (A) 0.2 k/uL (0-1.0); Monocytes % (A) 3 %; Neutrophils # (A) 6.8 k/uL (1.3-7.7); Neutrophils % (A) 81 %; Platelet Count 444 k/uL (150-450); RBC 3.69 m/uL (3.80-5.40); RDW 16.2 % (11.5-15.5); WBC 8.4 k/uL (3.8-10.6)
[2021-06-13 14:54] LABS: Lactic Acid, Venous 1.1 mmol/L (0.7-2.0)
[2021-06-13 14:55] LABS: Albumin 2.2 g/dL (3.5-5.0); Calcium 7.5 mg/dL (8.4-10.2); Potassium 3.4 mmol/L (3.5-5.1); Total Bilirubin 0.7 mg/dL (0.2-1.3); Total Protein 5.4 g/dL (6.3-8.2)
[2021-06-13 14:57] LABS: INR 1.2 (<1.2); Prothrombin Time 13.1 sec (9.0-12.0)
[2021-06-13] MEDS ORDERED: SODIUM CHLORIDE 0.9% 1,000 ML IV SCH (15:00)
[2021-06-13 15:25] LABS: Appearance,Urine Cloudy (Clear); Bacteria,Urine Many /hpf; Bilirubin,Urine Negative (Negative); Blood,Urine Negative (Negative); Color,Urine Yellow; Glucose,Urine (UA) Negative (Negative); Hyaline Casts,Urine 8 /lpf (0-2); Ketones,Urine Negative (Negative); Leukocyte Esterase,Urine Large (Negative); Mucus,Urine Rare /hpf; Nitrite,Urine Negative (Negative); Protein,Urine Negative (Negative); RBC,Urine 6 /hpf (0-5); Specific Gravity,Urine 1.019 (1.001-1.035); Squamous Epithelial Cell,Urine 1 /hpf (0-4); WBC,Urine 56 /hpf (0-5)
--- NOTE | 2021-06-13 16:03 | XR ---
EXAMINATION TYPE: XR chest 2V DATE OF EXAM: 06/13/2021 COMPARISON: 02/12/2021 HISTORY: Altered mental status TECHNIQUE: FINDINGS: Heart is normal. There are bilateral pleural effusions. No heart failure seen. There are no hilar masses. Thoracic aorta is atheromatous. There are chest leads. There is osteopenia. IMPRESSION: Bilateral pleural effusions are improved compared to last exam. No obvious heart failure.
[2021-06-13] MEDS ORDERED: NALOXONE 0.4 MG/ML 1 ML VIAL IV PRN (18:02)
[2021-06-13] MEDS: ACETAMINOPHEN TAB 325 MG TAB PO PRN (19:03)
[2021-06-13] MEDS: SODIUM CHLORIDE 0.9% 1,000 ML IV SCH (22:46)
[2021-06-13] MEDS ORDERED: ONDANSETRON 4 MG/2 ML VIAL IVP STA (23:13)
[2021-06-13] MEDS ORDERED: POTASSIUM CHLORIDE ER 20 MEQ TAB.ER PO STA (23:15)
--- NOTE | 2021-06-13 23:16 | P.HPIM ---
History of Present Illness H&P Date: 06/13/21 The patient is a 76-year-old female with a PMH of mild dementia, HTN, type 2 DM, and HLD, who was brought into the ED by family for confusion, foul smelling urine, and diffuse weakness. The patient is malay speaking with history supplemented by son-in-law (Neil via phone) and ED provider. The patient reportedly has been sleeping most of the days at home, is too weak to ambulate, and has foul smelling urine. The family reports that this is typical of her UTIs for which she has been hospitalized multiple times in the past. He also reports that the patient has not been eating or drinking much as a result of her above symptoms, and has also been more confused than usual. The patient herself reports feeling tired but denied any focal complaints. Family denied reports of chest discomfort, shortness of breath, nausea, vomiting, or abdominal pain. The patient was hypotensive in the emergency room with BP 74/40 at presentation. Chest x-ray in the emergency room was unremarkable. Laboratory evaluation revealed a sodium 131, potassium 3.4, CO2 33, BUN 71, creatinine 1.90, almond 2.2, and a UA consistent with UTI. Review of systems: Pertinent positives and negatives as discussed in HPI, a complete review of systems was performed and all other systems are negative. Physical examination: General: non toxic, no distress, appears older than stated age, normal weight Derm: no unusual rashes/lesions no unusual ecchymoses, warm, dry Head: atraumatic, normocephalic, symmetric Eyes: EOMI, no lid lag, anicteric sclera, pupils equal round reactive to light ENT: Nose and ears atraumatic, no thrush, no pharyngeal erythema Neck: No thyromegaly, no cervical lymphadenopathy, trachea midline, supple Mouth: no lip lesion, mucus membranes moist Cardiovascular: S1S2 reg, no murmur, positive posterior tibial pulse bilateral, no edema, capillary refill less than 2 seconds Lungs: CTA bilateral, no rhonchi, no rales , no accessory muscle use Abdominal: soft, nontender to palpation, no guarding, no appreciable organomegaly, normal bowel sounds Ext: no gross muscle atrophy, muscle strength 3 out of 5 in all 4 extremities grossly, no contractures Neuro: CN II-XI grossly intact, no gross focal deficits noted Psych: Alert, oriented to person and place only, not oriented to time Assessment/plan UTI -Continue with ceftriaxone -IV fluids -Follow up urine cultures Altered mental status, likely toxic metabolic encephalopathy in setting of UTI -Continue with above management Acute kidney injury, in setting of poor oral intake with dehydration -IV fluids -Monitor for now Hypokalemia -Replace and monitor Normocytic anemia, at baseline Chronic conditions: Type II DM, hypertension, HLD -Continue with home meds -Insulin sliding scale and blood glucose monitoring -Check A1c DVT prophylaxis -Heparin subcu The patient is admitted with an anticipated greater than 2 midnight stay for evaluation of UTI CODE STATUS: Full Code Discussed with: Patient, Son Anticipated discharge date: 06/[address]: Home Past Medical History Past Medical History: Coronary Artery Disease (CAD), Diabetes Mellitus, Hyperlipidemia, Hypertension Additional Past Medical History / Comment(s): mild, wound care center for left. left broken ankle. History of Any Multi-Drug Resistant Organisms: None Reported Past Surgical History: Cholecystectomy, Heart Catheterization With Stent, Orthopedic Surgery Additional Past Surgical History / Comment(s): hip surgery, cataract sx, left ankle surgery 2020 Past Anesthesia/Blood Transfusion Reactions: No Reported Reaction Date of Last Stent Placement:: 2000 Past Psychological History: No Psychological Hx Reported Smoking Status: Never smoker Past Alcohol Use History: None Reported Past Drug Use History: None Reported Medications and Allergies Home Medications Medication Instructions Recorded Confirmed Type Latanoprost/Pf [Latanoprost 0.005% 1 drop BOTH EYES HS 09/14/20 06/13/21 History Eye Drop] Sodium Bicarbonate Tab 650 mg PO TID #90 tab 11/20/20 06/13/21 Rx Cholecalciferol (Vitamin D3) 125 mcg PO DAILY 12/25/20 06/13/21 History [Vitamin D3 (125 MCG = 5,000 IU)] Iron Polysaccharide Complex 150 mg PO DAILY 12/25/20 06/13/21 History [Ferrex 150] Metoprolol Succinate (ER) [Toprol 100 mg PO DAILY 12/25/20 06/13/21 History XL] Pantoprazole Sodium [Protonix] 40 mg PO DAILY 12/25/20 06/13/21 History Simvastatin [Zocor] 20 mg PO HS 12/25/20 06/13/21 History amLODIPine [Norvasc] 5 mg PO DAILY 12/25/20 06/13/21 History Aspirin EC [Ecotrin Low Dose] 81 mg PO DAILY 06/13/21 06/13/21 History Collagenase [Santyl Ointment] 1 applic TOPICAL DAILY 06/13/21 06/13/21 History Diphenoxylate HCl/Atropine 2 tab PO QID PRN 06/13/21 06/13/21 History [Lomotil 2.5-0.025 mg Tablet] Insulin Lispro [humaLOG Kwikpen] See Protocol SQ AC-TID PRN 06/13/21 06/13/21 History Ondansetron Odt [Zofran Odt] 4 mg PO Q12HR PRN 06/13/21 06/13/21 History glipiZIDE [Glucotrol] 2.5 mg PO BID 06/13/21 06/13/21 History Allergies Allergy/AdvReac Type Severity Reaction Status Date / Time No Known Allergies Allergy Verified 06/13/21 18:04 Physical Exam Vitals: Vital Signs Temp Pulse Resp BP Pulse Ox 06/13/21 21:51 97.6 F 68 12 89/49 97 06/13/21 18:19 79 14 93/51 100 06/13/21 17:52 67 12 87/52 100 06/13/21 17:07 91/55 06/13/21 16:59 67 86/48 06/13/21 16:22 81/51 98 06/13/21 13:52 97 12 94/53 98 06/13/21 12:33 103/81 06/13/21 12:17 97.5 F L 90 14 74/40 98 Intake and Output 06/13/21 06/13/21 06/13/21 06:59 14:59 22:59 Other: Weight 45.359 kg Results CBC & Chem 7: 06/13/21 14:30 06/13/21 14:30 Labs: Abnormal Lab Results - Last 24 Hours (Table) 06/13/21 06/13/21 06/13/21 Range/Units 14:30 14:30 14:30 RBC 3.69 L (3.80-5.40) m/uL Hgb 10.0 L (11.4-16.0) gm/dL Hct 32.8 L (34.0-46.0) % MCHC 30.3 L (31.0-37.0) g/dL RDW 16.2 H (11.5-15.5) % PT 13.1 H (9.0-12.0) sec INR 1.2 H (<1.2) Sodium 131 L (137-145) mmol/L Potassium 3.4 L (3.5-5.1) mmol/L Chloride 92 L (98-107) mmol/L Carbon Dioxide 33 H (22-30) mmol/L BUN 71 H (7-17) mg/dL Creatinine 1.90 H (0.52-1.04) mg/dL Calcium 7.5 L (8.4-10.2) mg/dL Alkaline Phosphatase 157 H (38-126) U/L Total Protein 5.4 L (6.3-8.2) g/dL Albumin 2.2 L (3.5-5.0) g/dL Urine Appearance (Clear) Ur Leukocyte Esterase (Negative) Urine RBC (0-5) /hpf Urine WBC (0-5) /hpf Urine WBC Clumps (None) /hpf Urine Bacteria (None) /hpf Hyaline Casts (0-2) /lpf Urine Mucus (None) /hpf 06/13/21 Range/Units 14:46 RBC (3.80-5.40) m/uL Hgb (11.4-16.0) gm/dL Hct (34.0-46.0) % MCHC (31.0-37.0) g/dL RDW (11.5-15.5) % PT (9.0-12.0) sec INR (<1.2) Sodium (137-145) mmol/L Potassium (3.5-5.1) mmol/L Chloride (98-107) mmol/L Carbon Dioxide (22-30) mmol/L BUN (7-17) mg/dL Creatinine (0.52-1.04) mg/dL Calcium (8.4-10.2) mg/dL Alkaline Phosphatase (38-126) U/L Total Protein (6.3-8.2) g/dL Albumin (3.5-5.0) g/dL Urine Appearance Cloudy H (Clear) Ur Leukocyte Esterase Large H (Negative) Urine RBC 6 H (0-5) /hpf Urine WBC 56 H (0-5) /hpf Urine WBC Clumps Occasional H (None) /hpf Urine Bacteria Many H (None) /hpf Hyaline Casts 8 H (0-2) /lpf Urine Mucus Rare H (None) /hpf
[2021-06-13] MEDS: HEPARIN SODIUM,PORCINE/PF 5,000 UNIT/0.5 ML SYRINGE SQ SCH (23:25)
[2021-06-14] MEDS: ACETAMINOPHEN TAB 325 MG TAB PO PRN ×3 (04:08→23:16)
[2021-06-14] MEDS: SODIUM CHLORIDE 0.9% 1,000 ML IV SCH ×4 (05:11→23:16)
[2021-06-14 07:19] LABS: Glucose,Whole Blood 67 mg/dL (75-99)
[2021-06-14] MEDS: INSULIN ASPART (NovoLOG) 100 UNIT/ML VIAL SQ SCH ×4 (08:18→21:41)
[2021-06-14 08:23] LABS: Glucose,Whole Blood 83 mg/dL (75-99)
[2021-06-14] MEDS: METOPROLOL SUCCINATE (ER) 100 MG TAB.ER.24H PO SCH (08:38)
[2021-06-14] MEDS: amLODIPine 5 MG TAB PO SCH (08:38)
[2021-06-14] MEDS: ASPIRIN 81 MG PO SCH (08:57)
[2021-06-14] MEDS: PANTOPRAZOLE 40 MG TABLET PO SCH (08:58)
[2021-06-14] MEDS: HEPARIN SODIUM,PORCINE/PF 5,000 UNIT/0.5 ML SYRINGE SQ SCH ×3 (08:58→23:16)
[2021-06-14 11:26] LABS: Glucose,Whole Blood 73 mg/dL (75-99)
[2021-06-14 16:46] LABS: Glucose,Whole Blood 145 mg/dL (75-99)
[2021-06-14 17:15] LABS: C Reactive Protein 4.7 mg/dL (<1.0)
--- NOTE | 2021-06-14 17:19 | P.PN ---
Subjective Progress Note Date: 06/14/21 History of Present Illness H&P Date: 06/13/21 The patient is a 76-year-old female with a PMH of mild dementia, HTN, type 2 DM, and HLD, who was brought into the ED by family for confusion, foul smelling urine, and diffuse weakness. The patient is armenian speaking with history supplemented by son-in-law (Neil via phone) and ED provider. The patient reportedly has been sleeping most of the days at home, is too weak to ambulate, and has foul smelling urine. The family reports that this is typical of her UTIs for which she has been hospitalized multiple times in the past. He also reports that the patient has not been eating or drinking much as a result of her above symptoms, and has also been more confused than usual. The patient herself reports feeling tired but denied any focal complaints. Family denied reports of chest discomfort, shortness of breath, nausea, vomiting, or abdominal pain. The patient was hypotensive in the emergency room with BP 74/40 at presentation. Chest x-ray in the emergency room was unremarkable. Laboratory evaluation reve aled a sodium 131, potassium 3.4, CO2 33, BUN 71, creatinine 1.90, almond 2.2, and a UA consistent with UTI. Interval history: Patient seen and examined at the bedside. She is alert and oriented 2. Daughter at the bedside translating from Uzbek to Frisian. The patient stated that she is nauseous. Nurses at the bedside stated that the patient eating 50% of her meal which is her baseline. Otherwise no acute changes overnight Objective - Vital Signs Vital signs: Vital Signs Temp 97.6 F 06/14/21 13:57 Pulse 78 06/14/21 13:57 Resp 18 06/14/21 13:57 BP 99/63 06/14/21 13:57 Pulse Ox 99 06/14/21 13:57 Intake & Output 06/13/21 06/14/21 06/14/21 18:59 06:59 18:59 Weight 45.359 kg 45.359 kg Other: Voiding Method Incontinent External Catheter # Voids 1 # Bowel Movements 1 - Exam Physical examination: General: non toxic, no distress, appears older than stated age, normal weight Derm: no unusual rashes/lesions no unusual ecchymoses, warm, dry Head: atraumatic, normocephalic, symmetric Eyes: EOMI, no lid lag, anicteric sclera, pupils equal round reactive to light ENT: Nose and ears atraumatic, no thrush, no pharyngeal erythema Neck: No thyromegaly, no cervical lymphadenopathy, trachea midline, supple Mouth: no lip lesion, mucus membranes moist Cardiovascular: S1S2 reg, no murmur, positive posterior tibial pulse bilateral, no edema, capillary refill less than 2 seconds Lungs: CTA bilateral, no rhonchi, no rales , no accessory muscle use Abdominal: soft, nontender to palpation, no guarding, no appreciable organomegaly, normal bowel sounds Ext: no gross muscle atrophy, muscle strength 3 out of 5 in all 4 extremities grossly, no contractures Neuro: CN II-XI grossly intact, no gross focal deficits noted Psych: Alert, oriented to person and place only, not oriented to time - Labs CBC & Chem 7: 06/13/21 14:30 06/13/21 14:30 Labs: Abnormal Lab Results - Last 24 Hours (Table) 06/14/21 06/14/21 06/14/21 Range/Units 07:17 11:24 16:38 POC Glucose (mg/dL) 67 L 73 L (75-99) mg/dL C-Reactive Protein 4.7 H (<1.0) mg/dL 06/14/21 Range/Units 16:44 POC Glucose (mg/dL) 145 H (75-99) mg/dL C-Reactive Protein (<1.0) mg/dL Microbiology - Last 24 Hours (Table) 06/13/21 14:30 Blood Culture - Preliminary Blood No Growth after 24 hours 06/13/21 14:46 Urine Culture - Preliminary Urine,Clean Catch Assessment and Plan Assessment: Assessment/plan Recurrent UTI -Continue with ceftriaxone -IV fluids -Follow up urine cultures -ID consult Altered mental status, likely toxic metabolic encephalopathy in setting of UTI -Continue with above management Acute kidney injury, in setting of poor oral intake with dehydration -IV fluids -Monitor for now Hypokalemia -Replace and monitor Normocytic anemia, at baseline 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 -Present on admission -One care consult Type II DM -Insulin sliding scale and blood glucose monitoring -Check A1c hypertension -Continue with home meds Chronic debility and deconditioning patient down to the bed DVT prophylaxis -Heparin subcu The patient is admitted with an anticipated greater than 2 midnight stay for evaluation of UTI CODE STATUS: Full Code
[2021-06-14 18:45] LABS: ALT <6 U/L (4-34); African American GFR (CKD) 41 (>60 ml/min/1.73 sqM); Albumin/Globulin Ratio 0.7; Anion Gap 8 mmol/L; Blood Urea Nitrogen 59 mg/dL (7-17); Calcium 6.8 mg/dL (8.4-10.2); Carbon Dioxide 20 mmol/L (22-30); Chloride 104 mmol/L (98-107); Glucose 114 mg/dL (74-99); Non-African American GFR(CKD) 35 (>60 ml/min/1.73 sqM); Sodium 132 mmol/L (137-145)
[2021-06-14 19:03] LABS: AST 23 U/L (14-36); Alkaline Phosphatase 179 U/L (38-126); Potassium 4.5 mmol/L (3.5-5.1); Total Bilirubin 0.7 mg/dL (0.2-1.3)
[2021-06-14 20:34] LABS: Glucose,Whole Blood 105 mg/dL (75-99)
[2021-06-14] MEDS: ATORVASTATIN 10 MG TAB PO SCH (21:57)
[2021-06-14 23:12] LABS: Vitamin B12 >2000.0 pg/mL (200.0-944.0)
[2021-06-15 06:52] LABS: Glucose,Whole Blood 80 mg/dL (75-99)
[2021-06-15] MEDS: METOPROLOL SUCCINATE (ER) 100 MG TAB.ER.24H PO SCH ×2 (07:33→07:49)
[2021-06-15] MEDS: amLODIPine 5 MG TAB PO SCH ×2 (07:33→07:49)
[2021-06-15] MEDS: SODIUM CHLORIDE 0.9% 1,000 ML IV SCH ×3 (07:34→21:43)
[2021-06-15] MEDS: INSULIN ASPART (NovoLOG) 100 UNIT/ML VIAL SQ SCH ×4 (07:48→21:16)
[2021-06-15] MEDS: PANTOPRAZOLE 40 MG TABLET PO SCH (07:49)
[2021-06-15] MEDS: HEPARIN SODIUM,PORCINE/PF 5,000 UNIT/0.5 ML SYRINGE SQ SCH ×3 (07:49→23:12)
[2021-06-15] MEDS: ASPIRIN 81 MG PO SCH (07:49)
--- NOTE | 2021-06-15 09:09 | P.CONS ---
History of Present Illness - Reason for Consult Consult date: 06/15/21 wound care - History of Present Illness This is a 76-year-old female who is known to the wound care center with a nonhealing ulceration to the left posterior calcaneus. Patient previously had a orthopedic intervention resulting and hardware being placed. One screw was removed because of a surgical wound dehiscence. At this time patient has been utilizing Santyl to the site. Original cause of wound was Not Known. The date acquired was: 08/19/2020. The wound has been in treatment 34 weeks. The wound is currently classified as a Full Thickness Without Exposed Support Structures wound with etiology of Open Surgical Wound and is located on the Left,Posterior Calcaneus. The wound measures 3.8cm length x 1.9cm width x 0.7cm depth; 5.671cm^2 area and 3.969cm^3 volume. There is no tunneling or undermining noted. There is a small amount of serous drainage noted. The wound margin is distinct with the outline attached to the wound base. There is no granulation within the wound bed. There is a large (67-100%) amount of necrotic tissue within the wound bed including Adherent Slough. The periwound skin appearance exhibited: Scarring, Maceration. The periwound skin appearance did not exhibit: Callus, Crepitus, Excoriation, Induration, Rash, Dry/Scaly, Atrophie Jacque, Cyanosis, Ecchymosis, Hemosiderin Staining, Mottled, Pallor, Rubor, Erythema. Periwound temperature was noted as No Abnormality. The periwound has tenderness on palpation. Original cause of wound was Pressure Injury. The date acquired was: 05/21/2021. The wound has been in treatment 1 weeks. The wound is currently classified as a Category/Stage III wound with etiology of Pressure Ulcer and is located on the Left,Medial Foot. The wound measures 1.4cm length x 1.5cm width x 0.2cm depth; 1.649cm^2 area and 0.33cm^3 volume. The wound is limited to skin breakdown. There is a medium amount of serosanguineous drainage noted. The wound margin is distinct with the outline attached to the wound base. There is small (1-33%) red granulation within the wound bed. There is a large (67-100%) amount of necrotic tissue within the wound bed including Adherent Slough. The periwound skin appearance had no abnormalities noted for texture. The periwound skin appearance had no abnormalities noted for moisture. The periwound skin appearance had no abnormalities noted for color. Periwound temperature was noted as No Abnormality. Review Of Systems: Constitutional: No fever, no chills, no night sweats. No weight change. No weakness, fatigue or lethargy. No daytime sleepiness. Integumentary:reports wounds, no lesions. No rash or pruritus. No unusual bruising. No change in hair or nails. Physical exam: General Appearance: Alert, cooperative, no distress, appears stated age. Skin: See HPI all other Skin color, texture, tugor normal, no rashes or lesions. Neurologic: Alert oriented x3 Assessment: 1. Pressure ulcer of left heel stage II 2. Type 2 diabetes with foot ulcer 3. Pressure ulcer of left foot stage II Plan: 1. Apply santyl, saline moistened gauze, rolled gauze and border foam. Change Daily. Utilize foam heel protectors. Patient's next appointment in the wound care center is June 18 @ 1:00. Thank you for the consultation any questions please contact the wound care center DNP note has been reviewed and discussed with Dr. Kim and the impression and plan of care has been directed as dictated. Past Medical History Past Medical History: Coronary Artery Disease (CAD), Diabetes Mellitus, Hyperlipidemia, Hypertension Additional Past Medical History / Comment(s): mild, wound care center for left. left broken ankle. History of Any Multi-Drug Resistant Organisms: None Reported Past Surgical History: Cholecystectomy, Heart Catheterization With Stent, Orthopedic Surgery Additional Past Surgical History / Comment(s): hip surgery, cataract sx, left ankle surgery 2020 Past Anesthesia/Blood Transfusion Reactions: No Reported Reaction Date of Last Stent Placement:: 2000 Past Psychological History: No Psychological Hx Reported Smoking Status: Never smoker Past Alcohol Use History: None Reported Past Drug Use History: None Reported Medications and Allergies Home Medications Medication Instructions Recorded Confirmed Type Latanoprost/Pf [Latanoprost 0.005% 1 drop BOTH EYES HS 09/14/20 06/13/21 History Eye Drop] Sodium Bicarbonate Tab 650 mg PO TID #90 tab 11/20/20 06/13/21 Rx Cholecalciferol (Vitamin D3) 125 mcg PO DAILY 12/25/20 06/13/21 History [Vitamin D3 (125 MCG = 5,000 IU)] Iron Polysaccharide Complex 150 mg PO DAILY 12/25/20 06/13/21 History [Ferrex 150] Metoprolol Succinate (ER) [Toprol 100 mg PO DAILY 12/25/20 06/13/21 History XL] Pantoprazole Sodium [Protonix] 40 mg PO DAILY 12/25/20 06/13/21 History Simvastatin [Zocor] 20 mg PO HS 12/25/20 06/13/21 History amLODIPine [Norvasc] 5 mg PO DAILY 12/25/20 06/13/21 History Aspirin EC [Ecotrin Low Dose] 81 mg PO DAILY 06/13/21 06/13/21 History Collagenase [Santyl Ointment] 1 applic TOPICAL DAILY 06/13/21 06/13/21 History Diphenoxylate HCl/Atropine 2 tab PO QID PRN 06/13/21 06/13/21 History [Lomotil 2.5-0.025 mg Tablet] Insulin Lispro [humaLOG Kwikpen] See Protocol SQ AC-TID PRN 06/13/21 06/13/21 History Ondansetron Odt [Zofran Odt] 4 mg PO Q12HR PRN 06/13/21 06/13/21 History glipiZIDE [Glucotrol] 2.5 mg PO BID 06/13/21 06/13/21 History Allergies Allergy/AdvReac Type Severity Reaction Status Date / Time No Known Allergies Allergy Verified 06/13/21 18:04 Physical Exam Vitals: Vital Signs Temp Pulse Resp BP Pulse Ox 06/15/21 08:59 97/62 99 06/15/21 08:00 107 H 17 06/15/21 07:24 97.8 F 107 H 17 85/54 92 L 06/15/21 07:20 85 L 06/15/21 02:11 97.5 F L 78 16 96/61 95 06/14/21 20:00 78 16 06/14/21 19:09 98.3 F 95 15 89/57 96 06/14/21 13:57 97.6 F 78 18 99/63 99 Intake and Output 06/14/21 06/15/21 06/15/21 22:59 06:59 14:59 Other: Voiding Method External Catheter External Catheter # Voids 1 3 # Bowel Movements 3 3 Results CBC & Chem 7: 06/13/21 14:30 06/14/21 16:38 Labs: Abnormal Lab Results - Last 24 Hours (Table) 06/14/21 06/14/21 06/14/21 Range/Units 11:24 16:38 16:44 Sodium 132 L (137-145) mmol/L Carbon Dioxide 20 L (22-30) mmol/L BUN 59 H (7-17) mg/dL Creatinine 1.45 H (0.52-1.04) mg/dL Glucose 114 H (74-99) mg/dL POC Glucose (mg/dL) 73 L 145 H (75-99) mg/dL Calcium 6.8 L (8.4-10.2) mg/dL Alkaline Phosphatase 179 H (38-126) U/L C-Reactive Protein 4.7 H (<1.0) mg/dL Total Protein 5.0 L (6.3-8.2) g/dL Albumin 2.0 L (3.5-5.0) g/dL Vitamin B12 >2000.0 H (200.0-944.0) pg/mL 06/14/21 Range/Units 20:32 Sodium (137-145) mmol/L Carbon Dioxide (22-30) mmol/L BUN (7-17) mg/dL Creatinine (0.52-1.04) mg/dL Glucose (74-99) mg/dL POC Glucose (mg/dL) 105 H (75-99) mg/dL Calcium (8.4-10.2) mg/dL Alkaline Phosphatase (38-126) U/L C-Reactive Protein (<1.0) mg/dL Total Protein (6.3-8.2) g/dL Albumin (3.5-5.0) g/dL Vitamin B12 (200.0-944.0) pg/mL Microbiology - Last 24 Hours (Table) 06/13/21 14:46 Urine Culture - Preliminary Urine,Clean Catch Gram Neg Bacilli 06/13/21 14:30 Blood Culture - Preliminary Blood No Growth after 24 hours Assessment and Plan (1) Pressure ulcer of left heel, stage 3 Current Visit: No Status: Acute Code(s): L89.623 - PRESSURE ULCER OF LEFT HEEL, STAGE 3 SNOMED Code(s): 24765397327850 (2) Non-healing ulcer of left foot with fat layer exposed Current Visit: No Status: Acute Code(s): L97.522 - NON-PRS CHRONIC ULCER OTH PRT LEFT FOOT W FAT LAYER EXPOSED SNOMED Code(s): 561819892 (3) Diabetic foot ulcer Current Visit: No Status: Acute Code(s): E11.621 - TYPE 2 DIABETES MELLITUS WITH FOOT ULCER; L97.509 - NON-PRESSURE CHRONIC ULCER OTH PRT UNSP FOOT W UNSP SEVERITY SNOMED Code(s): 142277210
[2021-06-15] MEDS ORDERED: CEFEPIME 2 GM in SODIUM CHLORIDE 0.9% 100 ML IVPB SCH (09:30)
[2021-06-15] MEDS: COLLAGENASE 250 UNIT/GM OINTMENT 30 GM TUBE TOPICAL SCH (09:50)
--- NOTE | 2021-06-15 10:06 | XR ---
EXAMINATION TYPE: XR chest 1V portable DATE OF EXAM: 06/15/2021 HISTORY: Shortness of breath. COMPARISON: 06/13/2021 TECHNIQUE: Single view of the chest is submitted. FINDINGS: Demonstrated are scattered senescent parenchymal change. Moderate right basilar opacity which may reflect a combination of effusion, atelectasis and/or infilt rate. The heart is stable. Hilar and mediastinal structures are within normal limits. Degenerative changes are seen of the dorsal spine. IMPRESSION: 1. Moderate right basilar opacity which may reflect a combination of effusion, atelectasis and/or in filtrate.
[2021-06-15] MEDS: CEFEPIME 1 GM in SODIUM CHLORIDE 0.9% 50 ML IVPB SCH ×2 (10:15→21:43)
[2021-06-15 11:07] LABS: Basophils # (A) 0.04 X 10*3/uL (0.00-0.10); Basophils % (A) 0.4 %; Eosinophils # (A) 0.11 X 10*3/uL (0.04-0.35); HCT 26.2 % (37.2-46.3); HGB 7.9 g/dL (12.0-15.0); Immature Grans, Automated 0.9 %; Lymphocytes # (A) 1.84 X 10*3/uL (0.90-5.00); MCH 26.8 pg (27.0-32.0); MCHC 30.2 g/dL (32.0-37.0); MCV 88.8 fL (80.0-97.0); Mean Platelet Volume 9.1 fL (9.5-12.2); Monocytes # (A) 0.57 X 10*3/uL (0.20-1.00); Monocytes % (A) 5.3 %; NRBC Per 100 WBC 0 /100 WBCS (0.0-0.0); Neutrophils # (A) 8.18 X 10*3/uL (1.80-7.70); Neutrophils % (A) 75.4 %; Platelet Count 344 X 10*3/uL (140-440); RBC 2.95 X 10*6/uL (4.10-5.20); RDW 18.1 % (11.5-14.5); WBC 10.84 X 10*3/uL (4.50-10.00)
[2021-06-15 11:20] LABS: African American GFR (CKD) 39.1 (60.0-200.0); Anion Gap 7.9 mmol/L (10.00-18.00); BUN/Creat Ratio 33.2 Ratio (12.00-20.00); Blood Urea Nitrogen 49.8 mg/dL (9.0-27.0); Carbon Dioxide 24.1 mmol/L (20.0-27.5); Magnesium 1.4 mg/dL (1.5-2.4); Non-African American GFR(CKD) 33.7 (60.0-200.0); Potassium 3.2 mmol/L (3.5-5.5)
[2021-06-15 11:27] LABS: Glucose,Whole Blood 86 mg/dL (75-99)
--- NOTE | 2021-06-15 11:31 | CT ---
EXAMINATION TYPE: CT brain wo con DATE OF EXAM: 06/15/2021 COMPARISON: CT dated 10/09/2020 HISTORY: Altered mental status CT DLP: 1043.4 mGycm Automated exposure control for dose reduction was used. TECHNIQUE: CT scan of the brain is performed without IV contrast administration. FINDINGS: Brain volume loss changes. Bilateral cerebral white matter hypodensities, likely representing chronic microvascular ischemic changes. Scattered arterial atherosclerotic calcifications. Few brainstem infarcts, likely chronic with right german radiata and basal ganglia/thalamic chronic i nfarct with surrounding gliotic changes. Suspected tiny cerebellar infarcts. No acute intracranial he morrhage. No gross acute cortical infarct. Partial empty sella. No midline shift or herniation. Unremarkable basal cisterns and CP angles. No gr oss space-occupying lesion, vasogenic edema or mass effect. 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 Edema of the soft tissue of the back of th e neck, please correlate clinically. Mucosal thickening of the ethmoid air cells, right maxillary sin us and sphenoid sinus. Clear mastoid air cells. No aggressive bone lesion. IMPRESSION: Brain volume loss changes, chronic ischemic changes and scattered chronic infarcts as detailed above. Please note that a small acute or hyperacute infarct can't be excluded by this CT scan. No acute int racranial hemorrhage or gross acute cortical infarct. Other findings as described above.
[2021-06-15] MEDS ORDERED: POTASSIUM CHLORIDE ER 20 MEQ TAB.ER PO STA (11:52)
[2021-06-15] MEDS: ACETAMINOPHEN TAB 325 MG TAB PO PRN (13:17)
--- NOTE | 2021-06-15 13:29 | P.PN ---
Subjective Progress Note Date: 06/15/21 History of Present Illness H&P Date: 06/13/21 The patient is a 76-year-old female with a PMH of mild dementia, HTN, type 2 DM, and HLD, who was brought into the ED by family for confusion, foul smelling urine, and diffuse weakness. The patient is uzbek speaking with history supplemented by son-in-law (Neil via phone) and ED provider. The patient reportedly has been sleeping most of the days at home, is too weak to ambulate, and has foul smelling urine. The family reports that this is typical of her UTIs for which she has been hospitalized multiple times in the past. He also reports that the patient has not been eating or drinking much as a result of her above symptoms, and has also been more confused than usual. The patient herself reports feeling tired but denied any focal complaints. Family denied reports of chest discomfort, shortness of breath, nausea, vomiting, or abdominal pain. The patient was hypotensive in the emergency room with BP 74/40 at presentation. Chest x-ray in the emergency room was unremarkable. Laboratory evaluation reve aled a sodium 131, potassium 3.4, CO2 33, BUN 71, creatinine 1.90, almond 2.2, and a UA consistent with UTI. Interval history: Patient seen and examined at the bedside. She is alert and oriented 2. Daughter at the bedside translating from Lithuanian to Bulgarian. The patient stated that she is nauseous. Nurses at the bedside stated that the patient eating 50% of her meal which is her baseline. Otherwise no acute changes overnight Objective - Vital Signs Vital signs: Vital Signs Temp 97.8 F 06/15/21 07:24 Pulse 107 H 06/15/21 08:00 Resp 17 06/15/21 08:00 BP 97/62 06/15/21 08:59 Pulse Ox 99 06/15/21 08:59 Intake & Output 06/14/21 06/15/21 06/15/21 18:59 06:59 18:59 Other: Voiding Method External Catheter External Catheter External Catheter # Voids 1 3 # Bowel Movements 3 3 - Exam Physical examination: General: She is awake but sleepy and confused Derm: no unusual rashes/lesions no unusual ecchymoses, warm, dry Head: atraumatic, normocephalic, symmetric Eyes: EOMI, no lid lag, anicteric sclera, pupils equal round reactive to light ENT: Nose and ears atraumatic, no thrush, no pharyngeal erythema Neck: No thyromegaly, no cervical lymphadenopathy, trachea midline, supple Mouth: no lip lesion, mucus membranes moist Cardiovascular: S1S2 reg, no murmur, positive posterior tibial pulse bilateral, no edema, capillary refill less than 2 seconds Lungs: CTA bilateral, no rhonchi, no rales , no accessory muscle use Abdominal: soft, nontender to palpation, no guarding, no appreciable organomegaly, normal bowel sounds Ext: no gross muscle atrophy, muscle strength 3 out of 5 in all 4 extremities grossly, no contractures Neuro: CN II-XI grossly intact, no gross focal deficits noted Psych: She seems to be sleepy today and lethargic - Labs CBC & Chem 7: 06/15/21 07:44 06/15/21 07:44 Labs: Abnormal Lab Results - Last 24 Hours (Table) 06/14/21 06/14/21 06/14/21 Range/Units 16:38 16:44 20:32 WBC (4.50-10.00) X 10*3/uL RBC (4.10-5.20) X 10*6/uL Hgb (12.0-15.0) g/dL Hct (37.2-46.3) % MCH (27.0-32.0) pg MCHC (32.0-37.0) g/dL RDW (11.5-14.5) % MPV (9.5-12.2) fL Immature Gran # (0.00-0.04) X 10*3/uL Neutrophils # (1.80-7.70) X 10*3/uL Sodium 132 L (137-145) mmol/L Potassium (3.5-5.5) mmol/L Carbon Dioxide 20 L (22-30) mmol/L Anion Gap (10.00-18.00) mmol/L BUN 59 H (7-17) mg/dL Creatinine 1.45 H (0.52-1.04) mg/dL Est GFR (CKD-EPI)AfAm (60.0-200.0) Est GFR (CKD-EPI)NonAf (60.0-200.0) BUN/Creatinine Ratio (12.00-20.00) Ratio Glucose 114 H (74-99) mg/dL POC Glucose (mg/dL) 145 H 105 H (75-99) mg/dL Calcium 6.8 L (8.4-10.2) mg/dL Magnesium (1.5-2.4) mg/dL Alkaline Phosphatase 179 H (38-126) U/L C-Reactive Protein 4.7 H (<1.0) mg/dL Total Protein 5.0 L (6.3-8.2) g/dL Albumin 2.0 L (3.5-5.0) g/dL Vitamin B12 >2000.0 H (200.0-944.0) pg/mL 06/15/21 06/15/21 Range/Units 07:44 07:44 WBC 10.84 H (4.50-10.00) X 10*3/uL RBC 2.95 L (4.10-5.20) X 10*6/uL Hgb 7.9 L (12.0-15.0) g/dL Hct 26.2 L (37.2-46.3) % MCH 26.8 L (27.0-32.0) pg MCHC 30.2 L (32.0-37.0) g/dL RDW 18.1 H (11.5-14.5) % MPV 9.1 L (9.5-12.2) fL Immature Gran # 0.10 H (0.00-0.04) X 10*3/uL Neutrophils # 8.18 H (1.80-7.70) X 10*3/uL Sodium (137-145) mmol/L Potassium 3.2 L (3.5-5.5) mmol/L Carbon Dioxide (22-30) mmol/L Anion Gap 7.90 L (10.00-18.00) mmol/L BUN 49.8 H (7-17) mg/dL Creatinine (0.52-1.04) mg/dL Est GFR (CKD-EPI)AfAm 39.1 L (60.0-200.0) Est GFR (CKD-EPI)NonAf 33.7 L (60.0-200.0) BUN/Creatinine Ratio 33.20 H (12.00-20.00) Ratio Glucose (74-99) mg/dL POC Glucose (mg/dL) (75-99) mg/dL Calcium 7.0 L (8.4-10.2) mg/dL Magnesium 1.4 L (1.5-2.4) mg/dL Alkaline Phosphatase (38-126) U/L C-Reactive Protein (<1.0) mg/dL Total Protein (6.3-8.2) g/dL Albumin (3.5-5.0) g/dL Vitamin B12 (200.0-944.0) pg/mL Microbiology - Last 24 Hours (Table) 06/13/21 14:46 Urine Culture - Preliminary Urine,Clean Catch Gram Neg Bacilli 06/13/21 14:30 Blood Culture - Preliminary Blood No Growth after 24 hours Assessment and Plan Assessment: Assessment/plan Recurrent UTI with sepsis -Continue with ceftriaxone -IV fluids -Follow up urine cultures -IV cefepime -ID consult Altered mental status, likely toxic metabolic encephalopathy in setting of UTI -CT of the head without any acute changes -Neurology consulted -Continue with above management Acute hypoxia -Chest x-ray showed possible infiltrate versus pleural effusion -CT of the chest ordered without contrast Acute kidney injury, in setting of poor oral intake with dehydration and hypotension -IV fluids -Antihypertensive medication and hold -Monitor for now Hypokalemia -Replace and monitor Normocytic anemia, at baseline 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 -Present on admission -One care consult Type II DM -Insulin sliding scale and blood glucose monitoring -Check A1c hypertension -Patient is hypotensive -Hold antihypertensive medication Chronic debility and deconditioning patient down to the bed DVT prophylaxis -Heparin subcu The patient is admitted with an anticipated greater than 2 midnight stay for evaluation of UTI CODE STATUS: Full Code
[2021-06-15 13:30] VITALS: BMI 20.9
[2021-06-15] MEDS: MAGNESIUM SULFATE-D5W PMX 1 GM in DEXTROSE/WATER 1 100ML.BAG IVPB SCH ×2 (14:17→15:20)
--- NOTE | 2021-06-15 15:15 | CDI ---
Documentation Clarification Form Date: 06/15/2021 02:53:57 PM From: Roseanne Hernandez RN CCDS Admit Date: 06/13/2021 03:55:00 PM Patient Name: Jigna Sofia Visit Number: [id number] Discharge Date: ATTENTION: The Clinical Documentation Specialists (CDI) and [facility] Coding Staff appreciate your assistance in clarifying documentation. Please respond to the clarification below the line at the bottom and electronically sign. The CDI & [facility] Coding staff will review the response and follow-up if needed. Please note: Queries are made part of the Legal Health Record. If you have any questions, please contact the author of this message via ITS. Dr. Sher Hurt Chronic debility and deconditioning patient down to the bed. Based on this information and the findings below, is there an additional diagnosis that is clinically appropriate for this patient? History/Risk Factors: 76-year-old female presents to the ED for confusion, not eating or drinking and foul-smelling urine. Medical History : UTIs, DM and HTN. 06/13,H&P. Clinical Indicators: Pressure ulcer of left heel stage II, Type 2 DM with foot ulcer, Pressure ulcer of left foot stage II. 06/14, Wound care note. RD Consult Assessment: Nutrition intake 0-25% consumed. Anthropometrics : Weight 45.359kb Hgt 4ft 10inches BMI 20.9 BMI Classification Underweight. Estimated Nutritional Needs: Kcals: Energy formula for Estimated nutritional needs 20-25 Kcals/Kg: Energy Needs Kcal 908- 1135. KCAL comment CHO 127 grams. Protein: Estimated protein range (grams/kg) 1.0 Estimated Protein Needs (grams/day) 45. Estimated Fluid needs: Fluid formula Estimated 1ml /Kcal 908-1135 mls/day. Treatment: Consistent carb, Ground diet, Glucerna. Monitor supplement and oral intake. Dietary Consult: See Above Supplements: Glucerna TID Is there an additional diagnosis that is clinically appropriate for this patient? [ ] Moderate Protein-Calorie Malnutrition [ ] Severe Protein-Calorie Malnutrition [ ] Other condition, please specify [ ] Unable to Determine (Template Last Revised: May 2020) severe protein calorie malnutrition MTDD
--- NOTE | 2021-06-15 15:26 | CDI ---
Documentation Clarification Form Date: 06/15/2021 03:17:11 PM From: Roseanne Hernandez RN CCDS Admit Date: 06/13/2021 03:55:00 PM Patient Name: Jigna Sofia Visit Number: [id number] Discharge Date: ATTENTION: The Clinical Documentation Specialists (CDI) and [facility] Coding Staff appreciate your assistance in clarifying documentation. Please respond to the clarification below the line at the bottom and electronically sign. The CDI & [facility] Coding staff will review the response and follow-up if needed. Please note: Queries are made part of the Legal Health Record. If you have any questions, please contact the author of this message via ITS. Dr. Sher Hurt Your patient has Acute hypoxia, 06/15, Internal Medicine progress note. Based on this information and the findings below, is there an additional diagnosis that is clinically appropriate for this patient? History/Risk Factors: 76-year-old female presents to the ED for confusion, not eating or drinking and foul-smelling urine. Medical History : UTIs, DM and HTN. 06/13,H&P. Clinical Indicators: Vital signs: 06/15 07:20 SpO2 85% room air; 07:24 B/P 85/54; HR 107; Temp 97.8 F Axillary; RR 17; SpO2 92% 3L nasal cannula. Lung/Breathing assessment: 06/15 CTA bilateral, no rhonchi, no rales, no accessory muscle use. Treatment: 06/15 Oxygen 3L via nasal cannula Is there an additional diagnosis that is clinically appropriate for this patient? [ ] Acute Hypoxic Respiratory Failure (pO2 <60 mm Hg or SpO2 <91% on room air) [ ] Other Diagnosis, please specify [ ] Unable to determine (Template Last Revised: May 2020) Acute hypoxic respiratory failure MTDD
--- NOTE | 2021-06-15 15:44 | CDI ---
Documentation Clarification Form Date: 06/15/2021 03:28:00 PM From: Roseanne Hernandez RN CCDS Admit Date: 06/13/2021 03:55:00 PM Patient Name: Jigna Sofia Visit Number: [id number] Discharge Date: ATTENTION: The Clinical Documentation Specialists (CDI) and [facility] Coding Staff appreciate your assistance in clarifying documentation. Please respond to the clarification below the line at the bottom and electronically sign. The CDI & [facility] Coding staff will review the response and follow-up if needed. Please note: Queries are made part of the Legal Health Record. If you have any questions, please contact the author of this message via ITS. Dr. Sher Hurt Recurrent UTI with sepsis is documented 06/15, Internal medicine progress note. For each diagnosis, documentation must be clear to determine if the condition was present at the time of the patients inpatient admission or developed during the hospital stay. Additional clarification regarding the Sepsis is requested. History/Risk Factors: 76-year-old female presents to the ED for confusion, not eating or drinking and foul-smelling urine. Medical History : UTIs, DM and HTN. 06/13,H&P. Clinical Indicators: VSS: 06/13 B/P 74/40; HR 90; Temp 97.5F Oral LABS: 06/13 Wbc 8.4; UA: Leukocyte Esterase Large; Wbc 56; Hyaline Casts 8. 06/13 Urine culture Gram neg bacilli. 06/15 Wound care: Pressure ulcer of left heel stage II; Type 2 DM with foot ulcer; Pressure ulcer of left foot stage II. Treatment: 06/13 0.9NS 500cc bolus x1; 06/13 to current 0.9NS 130cc/hr; 06/13 Ceftriaxone 1gm IVPB x 1; 06/15 to current Cefepime HCI 2gm IVPB Q8HR Definition of Present on Admission (POA): A diagnosis present at the time the order for admission to inpatient status was written. Please clarify if the Sepsis was POA [ ] Y = Yes, the condition was present at the time of the order for inpatient admission. [ ] N = No, the condition was not present at the time of the order for inpatient admission. [ ] W = Clinically undetermined if the condition was present at the time of the order for inpatient admission. (Template Last Revised: May 2020) Sepsis was present on admission MTDD
--- NOTE | 2021-06-15 16:06 | P.CNNES ---
History of Present Illness Consult date: 06/15/21 Requesting physician: Sher Hurt Reason for Consult: altered mental status History of Present Illness: This is a 76-year-old woman with history of hypertension, type 2 diabetes, hyperlipidemia, mild dementia, recurrent urinary tract infection, coronary artery disease status post stenting who presented emergency department on 06/13/2021 for confusion, foul-smelling urine and generalized weakness. History was obtained from the patient's daughter since the patient is Citizen [place]-speaking and the daughter helps with translation. According to the daughter the patient has been having recurrent urinary tract infection and recently she's been confused and she gets confused when she has urinary tract infection. Otherwise daughter denies the patient has any focal weakness, numbness. She has visual disturbance of both eyes and that's chronic. Per the daughter the patient is taking aspirin 81 mg daily and is on simvastatin 20 mg daily at bedtime. According to the daughter the patient had a mechanical fall of as a result she had lower left ankle injury and she had surgery in summer of 2020 and ever since she's been having recurrent urinary tract infection. During this hospital visit was found that the patient has underlying urinary tract infection. Some of the other workup consisted of: Initial vitals is a blood pressure of 74/40 and patient had repeated episodes of hypotensive, temperature of 97.5, heart rate of 90, respiratory of 14 pulse ox of 98% room air. Initial white blood cells 8.4 thousand and the repeat his 7.84, most recent hemoglobin is 7.5 on presentation was 10.0. Creatinine on presentation is 1.90 and the BUN is 71, sodium is 31, potassium 3.4, calcium 7.5, magnesium is 1.4, serum glucose patient has an episode as low as 67 today around 7:17AM. CT of the head is reported as brain volume loss changes, chronic ischemic changes and scattered chronic infarcts. In the body reported as were reported as bilateral cerebral white matter hypodensities, likely representing chronic mi crovascular ischemic changes at. Scattered arterial atherosclerotic calcification. 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 Suspect tiny cerebellar infarct. No acute intracranial hemorrhage or gross acute cortical infarct. Small acute or hyperacute infarct cannot be excluded by the CT scan. I personally reviewed the CT head and agree with report. Review of Systems Review of system: The 12 point system was reviewed and apparent positive and negative per HPI. Past Medical History Past Medical History: Coronary Artery Disease (CAD), Diabetes Mellitus, Hyperlipidemia, Hypertension Additional Past Medical History / Comment(s): mild, wound care center for left. left broken ankle. History of Any Multi-Drug Resistant Organisms: None Reported Past Surgical History: Cholecystectomy, Heart Catheterization With Stent, Ortho pedic Surgery Additional Past Surgical History / Comment(s): hip surgery, cataract sx, left ankle surgery 2020 Past Anesthesia/Blood Transfusion Reactions: No Reported Reaction Date of Last Stent Placement:: 2000 Past Psychological History: No Psychological Hx Reported Smoking Status: Never smoker Past Alcohol Use History: None Reported Past Drug Use History: None Reported Medications and Allergies Home Medications Medication Instructions Recorded Confirmed Type Latanoprost/Pf [Latanoprost 0.005% 1 drop BOTH EYES HS 09/14/20 06/13/21 History Eye Drop] Sodium Bicarbonate Tab 650 mg PO TID #90 tab 11/20/20 06/13/21 Rx Cholecalciferol (Vitamin D3) 125 mcg PO DAILY 12/25/20 06/13/21 History [Vitamin D3 (125 MCG = 5,000 IU)] Iron Polysaccharide Complex 150 mg PO DAILY 12/25/20 06/13/21 History [Ferrex 150] Metoprolol Succinate (ER) [Toprol 100 mg PO DAILY 12/25/20 06/13/21 History XL] Pantoprazole Sodium [Protonix] 40 mg PO DAILY 12/25/20 06/13/21 History Simvastatin [Zocor] 20 mg PO HS 12/25/20 06/13/21 History amLODIPine [Norvasc] 5 mg PO DAILY 12/25/20 06/13/21 History Aspirin EC [Ecotrin Low Dose] 81 mg PO DAILY 06/13/21 06/13/21 History Collagenase [Santyl Ointment] 1 applic TOPICAL DAILY 06/13/21 06/13/21 History Diphenoxylate HCl/Atropine 2 tab PO QID PRN 06/13/21 06/13/21 History [Lomotil 2.5-0.025 mg Tablet] Insulin Lispro [humaLOG Kwikpen] See Protocol SQ AC-TID PRN 06/13/21 06/13/21 History Ondansetron Odt [Zofran Odt] 4 mg PO Q12HR PRN 06/13/21 06/13/21 History glipiZIDE [Glucotrol] 2.5 mg PO BID 06/13/21 06/13/21 History Allergies Allergy/AdvReac Type Severity Reaction Status Date / Time No Known Allergies Allergy Verified 06/13/21 18:04 Physical Examination - Vital Signs Vital Signs: Vital Signs Temp Pulse Resp BP Pulse Ox 06/15/21 14:09 97.6 F 76 17 96/63 99 06/15/21 08:59 97/62 99 06/15/21 08:00 107 H 17 06/15/21 07:24 97.8 F 107 H 17 85/54 92 L 06/15/21 07:20 85 L 06/15/21 02:11 97.5 F L 78 16 96/61 95 06/14/21 20:00 78 16 06/14/21 19:09 98.3 F 95 15 89/57 96 Intake and Output 06/15/21 06/15/21 06/15/21 06:59 14:59 22:59 Other: Voiding Method External Catheter # Voids 3 # Bowel Movements 3 Weight 45.359 kg GENERAL: The patient is lying in bed and is not in acute distress. CHEST: The heart rate is regular rate rhythm. No murmurs to auscultation. LUNG: Clear to auscultation bilaterally no wheezing noted throughout. Not labored breathing. ABDOMEN/GI: Bowel sounds present in all 4 quadrants. No tenderness to palpation throughout. NEUROLOGICAL: Her daughter is at bedside who helps with translation (since patient is Citizen [place] speaking and her Italian is limited). Higher mental function: The patient is awake, alert, oriented to self, place. Could not tell me year or month. and time. She is able to name pen and glassess. Patient is following simple commands. No aphasia and no neglect. Cranial nerves: The pupils are round, equal and reactive to light. Visual post are full to confrontation throughout. Extraocular movement is intact no nystagmus is noted. Facial sensation is normal to touch throughout. The facial strength is normal throughout. Hearing is moderately decreased bilaterally to hand rub. Tongue is midline and moved [id number] without any difficulty. No dysarthria is noted. Shoulder shrug is normal bilaterally. Motor: The strength is hard to assess individual muscles because of cooperations. But is able to lift bilateral uppers above gravity. Is lifting right lower extremity above gravity while left is limited because of pain (has brace from ankle surgery). Normal tone and bulk. Cerebellum: Normal finger to nose bilaterally. Sensation: Sensation is normal to touch throughout. Reflexes (right/left): 1+ throughout. Did not assess left lower. Plantars are mute bilaterally. Results - Laboratory Findings CBC and BMP: 06/15/21 07:44 06/15/21 07:44 Abnormal Lab Findings: Abnormal Labs 06/13/21 06/13/21 06/13/21 14:30 14:30 14:30 WBC RBC 3.69 L Hgb 10.0 L Hct 32.8 L MCH MCHC 30.3 L RDW 16.2 H MPV Immature Gran # Neutrophils # PT 13.1 H INR 1.2 H Sodium 131 L Potassium 3.4 L Chloride 92 L Carbon Dioxide 33 H Anion Gap BUN 71 H Creatinine 1.90 H Est GFR (CKD-EPI)AfAm Est GFR (CKD-EPI)NonAf BUN/Creatinine Ratio Glucose POC Glucose (mg/dL) Calcium 7.5 L Magnesium Alkaline Phosphatase 157 H C-Reactive Protein Total Protein 5.4 L Albumin 2.2 L Vitamin B12 Urine Appearance Ur Leukocyte Esterase Urine RBC Urine WBC Urine WBC Clumps Urine Bacteria Hyaline Casts Urine Mucus 06/13/21 06/14/21 06/14/21 14:46 07:17 11:24 WBC RBC Hgb Hct MCH MCHC RDW MPV Immature Gran # Neutrophils # PT INR Sodium Potassium Chloride Carbon Dioxide Anion Gap BUN Creatinine Est GFR (CKD-EPI)AfAm Est GFR (CKD-EPI)NonAf BUN/Creatinine Ratio Glucose POC Glucose (mg/dL) 67 L 73 L Calcium Magnesium Alkaline Phosphatase C-Reactive Protein Total Protein Albumin Vitamin B12 Urine Appearance Cloudy H Ur Leukocyte Esterase Large H Urine RBC 6 H Urine WBC 56 H Urine WBC Clumps Occasional H Urine Bacteria Many H Hyaline Casts 8 H Urine Mucus Rare H 06/14/21 06/14/21 06/14/21 16:38 16:44 20:32 WBC RBC Hgb Hct MCH MCHC RDW MPV Immature Gran # Neutrophils # PT INR Sodium 132 L Potassium Chloride Carbon Dioxide 20 L Anion Gap BUN 59 H Creatinine 1.45 H Est GFR (CKD-EPI)AfAm Est GFR (CKD-EPI)NonAf BUN/Creatinine Ratio Glucose 114 H POC Glucose (mg/dL) 145 H 105 H Calcium 6.8 L Magnesium Alkaline Phosphatase 179 H C-Reactive Protein 4.7 H Total Protein 5.0 L Albumin 2.0 L Vitamin B12 >2000.0 H Urine Appearance Ur Leukocyte Esterase Urine RBC Urine WBC Urine WBC Clumps Urine Bacteria Hyaline Casts Urine Mucus 06/15/21 06/15/21 07:44 07:44 WBC 10.84 H RBC 2.95 L Hgb 7.9 L Hct 26.2 L MCH 26.8 L MCHC 30.2 L RDW 18.1 H MPV 9.1 L Immature Gran # 0.10 H Neutrophils # 8.18 H PT INR Sodium Potassium 3.2 L Chloride Carbon Dioxide Anion Gap 7.90 L BUN 49.8 H Creatinine Est GFR (CKD-EPI)AfAm 39.1 L Est GFR (CKD-EPI)NonAf 33.7 L BUN/Creatinine Ratio 33.20 H Glucose POC Glucose (mg/dL) Calcium 7.0 L Magnesium 1.4 L Alkaline Phosphatase C-Reactive Protein Total Protein Albumin Vitamin B12 Urine Appearance Ur Leukocyte Esterase Urine RBC Urine WBC Urine WBC Clumps Urine Bacteria Hyaline Casts Urine Mucus Assessment and Plan Assessment: Encephalopathy due to underlying metabolic encephalopathy and acute urinary tract infection. Patient also has electrolyte dysfunction choses hypoglycemia, hypomagnesemia and an episode of hypoglycemia as low as 67--- on examination patient was responding appropriately. Acute urinary tract infection with underlying recurrent history of urine tract infection Acute kidney injury History of hypertension but during this hospital stay patient's been having hypotensive episode is seems possibly due to underlying lacunar tract infection Chronic small vessel disease due to the patient's risk factor of diabetes, hy pertension, age, sex Diabetes mellitus type 2 Mild dementia History of coronary artery disease status post stenting Plan: Notified the patient of the the CT of the head finding. Will avoid pursuing with MRI and a daughter and is in agreement. I ordered ionized calcium and if it's the low we'll defer the management to the primary team Defer the rest of electrolyte imbalance and the underlying urinary tract infection management to the primary team Continue aspirin 81 mg and Lipitor 10 mg daily at bedtime. The serum vitamin B12 is more than 2000, ammonia is less than 9. TSH is 3.760 on October 2020 Hemoglobin A1c in September 2020 is 6.3 An EEG is not warranted since the patient responding appropriately. I will hold off on any additional testing from neurological perspective at this time. The plan was discussed with the patient's nurse and the patient daughter who are bedside. Thank you for the consultation. Torres Shin M.D. Neuro-hospitalist Time with Patient: Greater than 30
[2021-06-15 16:20] LABS: Glucose,Whole Blood 121 mg/dL (75-99)
--- NOTE | 2021-06-15 17:31 | CT ---
EXAMINATION TYPE: CT chest wo con DATE OF EXAM: 06/15/2021 COMPARISON: 10/29/2020 HISTORY: Left sided facial droop and dizziness. CT DLP: 331.1 mGycm Automated exposure control for dose reduction was used. Images obtained from the thoracic inlet to the diaphragm with no contrast. There are large bilateral pleural effusions. Heart appears enlarged. There is extensive vascular calc ification. Ascending aorta measures 3.5 cm. There is no mediastinal adenopathy. There is atelectasis in the lower lung post. The thoracic spine is intact. No compression fracture. Sternum is intact. There is mild pericardial e ffusion. There is some soft tissue air at the right lung apex adjacent to the rib that could relate to cathete rization. There is also soft tissue air at the right axilla. IMPRESSION: Large pleural effusions with bilateral pulmonary atelectasis similar to the old exam. There is improv ement in the pericardial effusion compared to old exam. Extensive atherosclerotic vascular disease.
[2021-06-15 20:30] LABS: Glucose,Whole Blood 126 mg/dL (75-99)
[2021-06-15] MEDS: METOPROLOL TARTRATE 12.5 MG TAB PO SCH (21:38)
[2021-06-15] MEDS: ATORVASTATIN 10 MG TAB PO SCH (21:43)
--- NOTE | 2021-06-15 23:50 | P.CONS ---
History of Present Illness - Reason for Consult Consult date: 06/15/21 Urinary tract infection Requesting physician: Sher Hurt - Chief Complaint Weakness mental status changes x few days - History of Present Illness Patient is a 76-year-old female with a past medical he significant for recurrent urinary tract infection in this patient presented to hospital 3 days ago for evaluation of low blood pressure weakness and mental status changes patient symptom has been going on for a days before presentation to the hospital, and has been mostly weakness and some confusion family was concerned patient may have a UTI because of foul-smelling urine and she also have 2 wounds to the left foot currently being treated at [facility] wound care center however family mention no drainage or any redness around the wound with the center the patient was brought into the ER on arrival to the ER the patient was afebrile and no fever had recorded subsequently patient did have a normal white count admission slightly elevated today kidney function mildly elevated liver enzymes are normal she did have a positive UA urine is currently showing E. coli blood culture has been negative so far chest x-ray today shows improvement in the pl eural effusion patient currently being treated with cefepime infectious he was consulted for management of antibiotic therapy Review of Systems Positive point has been mentioned in the HPI rest of the systems are negative Past Medical History Past Medical History: Coronary Artery Disease (CAD), Diabetes Mellitus, Hyperlipidemia, Hypertension Additional Past Medical History / Comment(s): mild, wound care center for left. left broken ankle. History of Any Multi-Drug Resistant Organisms: None Reported Past Surgical History: Cholecystectomy, Heart Catheterization With Stent, Orthopedic Surgery Additional Past Surgical History / Comment(s): hip surgery, cataract sx, left ankle surgery 2020 Past Anesthesia/Blood Transfusion Reactions: No Reported Reaction Date of Last Stent Placement:: 2000 Past Psychological History: No Psychological Hx Reported Smoking Status: Never smoker Past Alcohol Use History: None Reported Past Drug Use History: None Reported Medications and Allergies Home Medications Medication Instructions Recorded Confirmed Type Latanoprost/Pf [Latanoprost 0.005% 1 drop BOTH EYES HS 09/14/20 06/13/21 History Eye Drop] Sodium Bicarbonate Tab 650 mg PO TID #90 tab 11/20/20 06/13/21 Rx Cholecalciferol (Vitamin D3) 125 mcg PO DAILY 12/25/20 06/13/21 History [Vitamin D3 (125 MCG = 5,000 IU)] Iron Polysaccharide Complex 150 mg PO DAILY 12/25/20 06/13/21 History [Ferrex 150] Metoprolol Succinate (ER) [Toprol 100 mg PO DAILY 12/25/20 06/13/21 History XL] Pantoprazole Sodium [Protonix] 40 mg PO DAILY 12/25/20 06/13/21 History Simvastatin [Zocor] 20 mg PO HS 12/25/20 06/13/21 History amLODIPine [Norvasc] 5 mg PO DAILY 12/25/20 06/13/21 History Aspirin EC [Ecotrin Low Dose] 81 mg PO DAILY 06/13/21 06/13/21 History Collagenase [Santyl Ointment] 1 applic TOPICAL DAILY 06/13/21 06/13/21 History Diphenoxylate HCl/Atropine 2 tab PO QID PRN 06/13/21 06/13/21 History [Lomotil 2.5-0.025 mg Tablet] Insulin Lispro [humaLOG Kwikpen] See Protocol SQ AC-TID PRN 06/13/21 06/13/21 History Ondansetron Odt [Zofran Odt] 4 mg PO Q12HR PRN 06/13/21 06/13/21 History glipiZIDE [Glucotrol] 2.5 mg PO BID 06/13/21 06/13/21 History Allergies Allergy/AdvReac Type Severity Reaction Status Date / Time No Known Allergies Allergy Verified 06/13/21 18:04 Physical Exam Vitals: Vital Signs Temp Pulse Resp BP Pulse Ox 06/15/21 08:59 97/62 99 06/15/21 08:00 107 H 17 06/15/21 07:24 97.8 F 107 H 17 85/54 92 L 06/15/21 07:20 85 L 06/15/21 02:11 97.5 F L 78 16 96/61 95 06/14/21 20:00 78 16 06/14/21 19:09 98.3 F 95 15 89/57 96 Intake and Output 06/14/21 06/15/21 06/15/21 22:59 06:59 14:59 Other: Voiding Method External Catheter External Catheter # Voids 1 3 # Bowel Movements 3 3 Weight 45.359 kg GENERAL DESCRIPTION: Elderly female lying in bed, no distress. No tachypnea or accessory muscle of respiration use. HEENT: Shows Pallor , no scleral icterus. Oral mucous membrane is dry. No pharyngeal erythema or thrush NECK: Trachea central, no thyromegaly. LUNGS: Unlabored breathing. Clear to auscultation anteriorly. No wheeze or crackle. HEART: S1, S2, regular rate and rhythm. No loud murmur ABDOMEN: Soft, no tenderness , guarding or rigidity, no organomegaly EXTREMITIES: Left heel wound with the slough tissue no surrounding redness or drainage. SKIN: No rash, no masses palpable. NEUROLOGICAL: The patient is awake, alert, oriented x2, mood and affect normal. Results CBC & Chem 7: 06/15/21 07:44 06/15/21 07:44 Labs: Abnormal Lab Results - Last 24 Hours (Table) 06/14/21 06/14/21 06/14/21 Range/Units 16:38 16:44 20:32 WBC (4.50-10.00) X 10*3/uL RBC (4.10-5.20) X 10*6/uL Hgb (12.0-15.0) g/dL Hct (37.2-46.3) % MCH (27.0-32.0) pg MCHC (32.0-37.0) g/dL RDW (11.5-14.5) % MPV (9.5-12.2) fL Immature Gran # (0.00-0.04) X 10*3/uL Neutrophils # (1.80-7.70) X 10*3/uL Sodium 132 L (137-145) mmol/L Potassium (3.5-5.5) mmol/L Carbon Dioxide 20 L (22-30) mmol/L Anion Gap (10.00-18.00) mmol/L BUN 59 H (7-17) mg/dL Creatinine 1.45 H (0.52-1.04) mg/dL Est GFR (CKD-EPI)AfAm (60.0-200.0) Est GFR (CKD-EPI)NonAf (60.0-200.0) BUN/Creatinine Ratio (12.00-20.00) Ratio Glucose 114 H (74-99) mg/dL POC Glucose (mg/dL) 145 H 105 H (75-99) mg/dL Calcium 6.8 L (8.4-10.2) mg/dL Magnesium (1.5-2.4) mg/dL Alkaline Phosphatase 179 H (38-126) U/L C-Reactive Protein 4.7 H (<1.0) mg/dL Total Protein 5.0 L (6.3-8.2) g/dL Albumin 2.0 L (3.5-5.0) g/dL Vitamin B12 >2000.0 H (200.0-944.0) pg/mL 06/15/21 06/15/21 Range/Units 07:44 07:44 WBC 10.84 H (4.50-10.00) X 10*3/uL RBC 2.95 L (4.10-5.20) X 10*6/uL Hgb 7.9 L (12.0-15.0) g/dL Hct 26.2 L (37.2-46.3) % MCH 26.8 L (27.0-32.0) pg MCHC 30.2 L (32.0-37.0) g/dL RDW 18.1 H (11.5-14.5) % MPV 9.1 L (9.5-12.2) fL Immature Gran # 0.10 H (0.00-0.04) X 10*3/uL Neutrophils # 8.18 H (1.80-7.70) X 10*3/uL Sodium (137-145) mmol/L Potassium 3.2 L (3.5-5.5) mmol/L Carbon Dioxide (22-30) mmol/L Anion Gap 7.90 L (10.00-18.00) mmol/L BUN 49.8 H (7-17) mg/dL Creatinine (0.52-1.04) mg/dL Est GFR (CKD-EPI)AfAm 39.1 L (60.0-200.0) Est GFR (CKD-EPI)NonAf 33.7 L (60.0-200.0) BUN/Creatinine Ratio 33.20 H (12.00-20.00) Ratio Glucose (74-99) mg/dL POC Glucose (mg/dL) (75-99) mg/dL Calcium 7.0 L (8.4-10.2) mg/dL Magnesium 1.4 L (1.5-2.4) mg/dL Alkaline Phosphatase (38-126) U/L C-Reactive Protein (<1.0) mg/dL Total Protein (6.3-8.2) g/dL Albumin (3.5-5.0) g/dL Vitamin B12 (200.0-944.0) pg/mL Microbiology - Last 24 Hours (Table) 06/13/21 14:46 Urine Culture - Preliminary Urine,Clean Catch Gram Neg Bacilli 06/13/21 14:30 Blood Culture - Preliminary Blood No Growth after 24 hours Assessment and Plan (1) UTI (urinary tract infection) Current Visit: No Status: Acute Code(s): N39.0 - URINARY TRACT INFECTION, SITE NOT SPECIFIED SNOMED Code(s): 61976182 Plan: 1patient presented to hospital with mental status changes weakness foul- smelling urine with a history of recurrent UTI and did have a positive UA likely symptomatic urinary tract infection from enteric gram-negative pathogen. 2patient with wound to the left heel and left foot area but no cellulitis. 3continue with cefepime 1 g every 12 hours waiting for the culture to finalize 4-local wound care per wound care team We will follow on clinical condition and cultures to further adjust medication if needed Thank you for this consultation will follow this patient along with you Time with Patient: Greater than 30
[2021-06-16] MEDS: ACETAMINOPHEN TAB 325 MG TAB PO PRN ×3 (03:24→22:39)
[2021-06-16] MEDS: SODIUM CHLORIDE 0.9% 1,000 ML IV SCH ×2 (05:45→13:44)
[2021-06-16 06:46] LABS: Glucose,Whole Blood 97 mg/dL (75-99)
[2021-06-16] MEDS: METOPROLOL TARTRATE 12.5 MG TAB PO SCH ×2 (08:22→22:35)
[2021-06-16] MEDS: ASPIRIN 81 MG PO SCH (08:22)
[2021-06-16] MEDS: HEPARIN SODIUM,PORCINE/PF 5,000 UNIT/0.5 ML SYRINGE SQ SCH ×3 (08:22→22:43)
[2021-06-16] MEDS: CEFEPIME 1 GM in SODIUM CHLORIDE 0.9% 50 ML IVPB SCH ×2 (08:22→22:39)
[2021-06-16] MEDS: PANTOPRAZOLE 40 MG TABLET PO SCH (08:22)
[2021-06-16] MEDS: INSULIN ASPART (NovoLOG) 100 UNIT/ML VIAL SQ SCH ×4 (08:31→22:35)
[2021-06-16] MEDS: COLLAGENASE 250 UNIT/GM OINTMENT 30 GM TUBE TOPICAL SCH (09:00)
[2021-06-16 09:12] LABS: Basophils # (A) 0.03 X 10*3/uL (0.00-0.10); Basophils % (A) 0.3 %; Eosinophils % (A) 1.1 %; HGB 7.3 g/dL (12.0-15.0); Immature Grans, Automated 0.7 %; Lymphocytes # (A) 1.27 X 10*3/uL (0.90-5.00); Lymphocytes % (A) 14.5 %; MCH 26.7 pg (27.0-32.0); MCHC 30.4 g/dL (32.0-37.0); MCV 87.9 fL (80.0-97.0); Mean Platelet Volume 8.9 fL (9.5-12.2); Monocytes # (A) 0.46 X 10*3/uL (0.20-1.00); Monocytes % (A) 5.3 %; NRBC Per 100 WBC 0 /100 WBCS (0.0-0.0); Neutrophils # (A) 6.83 X 10*3/uL (1.80-7.70); Neutrophils % (A) 78.1 %; Platelet Count 318 X 10*3/uL (140-440); RBC 2.73 X 10*6/uL (4.10-5.20); RDW 18.4 % (11.5-14.5); WBC 8.75 X 10*3/uL (4.50-10.00)
[2021-06-16 09:18] LABS: African American GFR (CKD) 51.2 (60.0-200.0); Anion Gap 7.2 mmol/L (10.00-18.00); BUN/Creat Ratio 36.5 Ratio (12.00-20.00); Blood Urea Nitrogen 43.8 mg/dL (9.0-27.0); Carbon Dioxide 21.8 mmol/L (20.0-27.5); Magnesium 1.9 mg/dL (1.5-2.4); Non-African American GFR(CKD) 44.2 (60.0-200.0); Potassium 3.8 mmol/L (3.5-5.5)
[2021-06-16 11:10] LABS: Glucose,Whole Blood 97 mg/dL (75-99)
--- NOTE | 2021-06-16 13:48 | P.PN ---
Subjective Progress Note Date: 06/16/21 The patient is seen at bedside and is about the same. No new neurological issues. Objective - Vital Signs Vital signs: Vital Signs Temp 97.7 F 06/16/21 06:59 Pulse 74 06/16/21 07:58 Resp 18 06/16/21 07:58 BP 110/67 06/16/21 06:59 Pulse Ox 100 06/16/21 06:59 Intake & Output 06/15/21 06/16/21 06/16/21 18:59 06:59 18:59 Intake Total 1030 1560 Balance 1030 1560 Weight 45.359 kg Intake: IV 1030 Cefepime 1 gm In Sodium 50 Chloride 0.9% 50 ml @ 12. 5 mls/hr IVPB Q12HR [facility] Rx#:[id number] Magnesium Sulfate-D5w Pmx 200 1 gm In Dextrose/Water 1 100ml.bag @ 100 mls/hr IVPB Q1H [facility] Rx#: [id number] Sodium Chloride 0.9% 1, 780 000 ml @ 130 mls/hr IV . Q7H42M [facility] Rx#:[id number] Intake, IV Titration 1560 Amount Sodium Chloride 0.9% 1, 1560 000 ml @ 130 mls/hr IV . Q7H42M [facility] Rx#:[id number] Other: Voiding Method External Catheter Diaper Diaper Incontinent Incontinent # Bowel Movements 1 - Exam GENERAL: The patient is lying in bed and is not in acute distress. NEUROLOGICAL: Limited because Language barrier. Higher mental function: The patient is awake, alert, oriented to self,. Is following simple commands. Cranial nerves: The pupils are round, equal and reactive to light. Visual fie lds are full to confrontation throughout. Extraocular movement is intact no nystagmus is noted. The facial strength is normal throughout. Tongue is midline and moved [id number] without any difficulty. No dysarthria is noted. Shoulder shrug is normal bilaterally. Motor: The strength is hard to assess individual muscles because of cooperations. But is able to lift bilateral uppers above gravity. Is lifting right lower extremity above gravity while left is limited because of pain (has brace from ankle surgery). Normal tone and bulk. Cerebellum: Normal finger to nose bilaterally. Sensation: Sensation is normal to touch throughout. Reflexes (right/left): 1+ throughout. Did not assess left lower. Plantars are mute bilaterally. - Labs CBC & Chem 7: 06/16/21 05:20 06/16/21 05:20 Labs: Abnormal Lab Results - Last 24 Hours (Table) 06/15/21 06/15/21 06/15/21 Range/Units 07:44 16:15 20:27 RBC (4.10-5.20) X 10*6/uL Hgb (12.0-15.0) g/dL Hct (37.2-46.3) % MCH (27.0-32.0) pg MCHC (32.0-37.0) g/dL RDW (11.5-14.5) % MPV (9.5-12.2) fL Immature Gran # (0.00-0.04) X 10*3/uL Anion Gap (10.00-18.00) mmol/L BUN (9.0-27.0) mg/dL Est GFR (CKD-EPI)AfAm (60.0-200.0) Est GFR (CKD-EPI)NonAf (60.0-200.0) BUN/Creatinine Ratio (12.00-20.00) Ratio POC Glucose (mg/dL) 121 H 126 H (75-99) mg/dL Calcium (8.7-10.3) mg/dL Procalcitonin 66.70 H (0.02-0.09) ng/mL 06/16/21 06/16/21 Range/Units 05:20 05:20 RBC 2.73 L (4.10-5.20) X 10*6/uL Hgb 7.3 L (12.0-15.0) g/dL Hct 24.0 L (37.2-46.3) % MCH 26.7 L (27.0-32.0) pg MCHC 30.4 L (32.0-37.0) g/dL RDW 18.4 H (11.5-14.5) % MPV 8.9 L (9.5-12.2) fL Immature Gran # 0.06 H (0.00-0.04) X 10*3/uL Anion Gap 7.20 L (10.00-18.00) mmol/L BUN 43.8 H (9.0-27.0) mg/dL Est GFR (CKD-EPI)AfAm 51.2 L (60.0-200.0) Est GFR (CKD-EPI)NonAf 44.2 L (60.0-200.0) BUN/Creatinine Ratio 36.50 H (12.00-20.00) Ratio POC Glucose (mg/dL) (75-99) mg/dL Calcium 7.0 L (8.7-10.3) mg/dL Procalcitonin (0.02-0.09) ng/mL Microbiology - Last 24 Hours (Table) 06/13/21 14:46 Urine Culture - Final Urine,Clean Catch Escherichia coli 06/13/21 14:30 Blood Culture - Preliminary Blood No Growth after 48 hours Assessment and Plan Assessment: Encephalopathy due to underlying metabolic encephalopathy and acute urinary tract infection. Patient also has electrolyte dysfunction choses hypoglycemia, hypomagnesemia and an episode of hypoglycemia as low as 67--- on examination patient was responding appropriately and no focal neurological deficit. Acute urinary tract infection with underlying recurrent history of urine tract infection Acute kidney injury History of hypertension but during this hospital stay patient's been having hypotensive episode is seems possibly due to underlying lacunar tract infection Chronic small vessel disease due to the patient's risk factor of diabetes, hypertension, age, sex Diabetes mellitus type 2 Mild dementia History of coronary artery disease status post stenting Plan: Daughter is in agreement of not pursuing of MRI Brain since she feels her mentation is improved. Ionized calcium: 4.7 Defer the rest of electrolyte imbalance and the underlying urinary tract infection management to the primary team Continue aspirin 81 mg and Lipitor 10 mg daily at bedtime. The serum vitamin B12 is more than 2000, ammonia is less than 9. TSH is 3.760 on October 2020 Hemoglobin A1c in September 2020 is 6.3 An EEG is not warranted since the patient responding appropriately. I will hold off on any additional testing from neurological perspective at this time. The plan was discussed with the patient's primary team. There is no further neurological work-up. Please notify neurology team if any additional concerns. Torres Shin M.D. Neuro-hospitalist Time with Patient: Less than 30
--- NOTE | 2021-06-16 15:50 | P.PN ---
Subjective Progress Note Date: 06/16/21 No new complaints at this time. Pro-calcitonin is quite high, consider empyema as a diagnosis given pleural effusion, will consult pulmonary medicine. Gen: awake, alert HEENT: normocephalic, atraumatic, good hearing acuity, moist mucous membranes Resp: good air exchange, breathing comfortably with no accessory muscle use CVS: good distal perfusion x 4, GI: soft, NTTP, ND : no SPT, no CVAT, turner catheter not present MSK: no pitting edema, no clubbing Neuro: non-focal, moving all extremities Psych: cooperative, euthymic mood Assessment/plan: Sepsis with E. coli pyelonephritis Pleural Effusion -Continue with ceftriaxone -IV fluids -Follow up urine cultures -IV cefepime -ID consult -pulm consult for pleural effusion Altered mental status, likely toxic metabolic encephalopathy in setting of UTI -CT of the head without any acute changes -Neurology consulted -Continue with above management Acute hypoxia -Chest x-ray showed possible infiltrate versus pleural effusion -CT of the chest ordered without contrast Acute kidney injury, in setting of poor oral intake with dehydration and hypoten deloris -IV fluids -Antihypertensive medication and hold -Monitor for now Hypokalemia -Replace and monitor Normocytic anemia, at baseline 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 -Present on admission -One care consult Type II DM -Insulin sliding scale and blood glucose monitoring -Check A1c hypertension -Patient is hypotensive -Hold antihypertensive medication Chronic debility and deconditioning patient down to the bed DVT prophylaxis -Heparin subcu The patient is admitted with an anticipated greater than 2 midnight stay for evaluation of UTI CODE STATUS: Full Code Objective - Vital Signs Vital signs: Vital Signs Temp 97.8 F 06/16/21 12:40 Pulse 111 H 06/16/21 12:40 Resp 18 06/16/21 12:40 BP 100/63 06/16/21 12:40 Pulse Ox 96 06/16/21 12:40 Intake & Output 06/15/21 06/16/21 06/16/21 18:59 06:59 18:59 Intake Total 1030 1560 Balance 1030 1560 Weight 45.359 kg Intake: IV 1030 Cefepime 1 gm In Sodium 50 Chloride 0.9% 50 ml @ 12. 5 mls/hr IVPB Q12HR [facility] Rx#:[id number] Magnesium Sulfate-D5w Pmx 200 1 gm In Dextrose/Water 1 100ml.bag @ 100 mls/hr IVPB Q1H [facility] Rx#: [id number] Sodium Chloride 0.9% 1, 780 000 ml @ 130 mls/hr IV . Q7H42M [facility] Rx#:[id number] Intake, IV Titration 1560 Amount Sodium Chloride 0.9% 1, 1560 000 ml @ 130 mls/hr IV . Q7H42M [facility] Rx#:[id number] Other: Voiding Method External Catheter Diaper Diaper Incontinent Incontinent # Bowel Movements 1 - Labs CBC & Chem 7: 06/16/21 05:20 06/16/21 05:20 Labs: Abnormal Lab Results - Last 24 Hours (Table) 06/15/21 06/15/21 06/15/21 Range/Units 07:44 16:15 20:27 RBC (4.10-5.20) X 10*6/uL Hgb (12.0-15.0) g/dL Hct (37.2-46.3) % MCH (27.0-32.0) pg MCHC (32.0-37.0) g/dL RDW (11.5-14.5) % MPV (9.5-12.2) fL Immature Gran # (0.00-0.04) X 10*3/uL Anion Gap (10.00-18.00) mmol/L BUN (9.0-27.0) mg/dL Est GFR (CKD-EPI)AfAm (60.0-200.0) Est GFR (CKD-EPI)NonAf (60.0-200.0) BUN/Creatinine Ratio (12.00-20.00) Ratio POC Glucose (mg/dL) 121 H 126 H (75-99) mg/dL Calcium (8.7-10.3) mg/dL Procalcitonin 66.70 H (0.02-0.09) ng/mL 06/16/21 06/16/21 Range/Units 05:20 05:20 RBC 2.73 L (4.10-5.20) X 10*6/uL Hgb 7.3 L (12.0-15.0) g/dL Hct 24.0 L (37.2-46.3) % MCH 26.7 L (27.0-32.0) pg MCHC 30.4 L (32.0-37.0) g/dL RDW 18.4 H (11.5-14.5) % MPV 8.9 L (9.5-12.2) fL Immature Gran # 0.06 H (0.00-0.04) X 10*3/uL Anion Gap 7.20 L (10.00-18.00) mmol/L BUN 43.8 H (9.0-27.0) mg/dL Est GFR (CKD-EPI)AfAm 51.2 L (60.0-200.0) Est GFR (CKD-EPI)NonAf 44.2 L (60.0-200.0) BUN/Creatinine Ratio 36.50 H (12.00-20.00) Ratio POC Glucose (mg/dL) (75-99) mg/dL Calcium 7.0 L (8.7-10.3) mg/dL Procalcitonin (0.02-0.09) ng/mL Microbiology - Last 24 Hours (Table) 06/13/21 14:46 Urine Culture - Final Urine,Clean Catch Escherichia coli 06/13/21 14:30 Blood Culture - Preliminary Blood No Growth after 48 hours
[2021-06-16 16:36] LABS: Glucose,Whole Blood 176 mg/dL (75-99)
[2021-06-16 21:16] LABS: Glucose,Whole Blood 101 mg/dL (75-99)
--- NOTE | 2021-06-16 21:26 | P.PN ---
Subjective Progress Note Date: 06/16/21 Principal diagnosis: Urinary tract infection and question of pneumonia Patient is a 76-year-old female presenting to the hospital with weakness did have a cloudy urine concerning for symptomatic urinary tract infection, and this patient did have a chronic nonhealing wound to the left foot but no evidence of any cellulitis, patient did have a CT which is completed with evidence of bilateral effusion and did have elevated pro calcitonin. On today's evaluation that is 06/16/2021, the patient denies having any fever or chills she is currently breathing comfortably no chest pain no nausea no vomiting no abdominal pain, patient is complaining of pain to bilateral lower extremity Objective - Vital Signs Vital signs: Vital Signs Temp 97.7 F 06/16/21 06:59 Pulse 74 06/16/21 07:58 Resp 18 06/16/21 07:58 BP 110/67 06/16/21 06:59 Pulse Ox 100 06/16/21 06:59 Intake & Output 06/15/21 06/16/21 06/16/21 18:59 06:59 18:59 Intake Total 1030 1560 Balance 1030 1560 Weight 45.359 kg Intake: IV 1030 Cefepime 1 gm In Sodium 50 Chloride 0.9% 50 ml @ 12. 5 mls/hr IVPB Q12HR [facility] Rx#:[id number] Magnesium Sulfate-D5w Pmx 200 1 gm In Dextrose/Water 1 100ml.bag @ 100 mls/hr IVPB Q1H [facility] Rx#: [id number] Sodium Chloride 0.9% 1, 780 000 ml @ 130 mls/hr IV . Q7H42M [facility] Rx#:[id number] Intake, IV Titration 1560 Amount Sodium Chloride 0.9% 1, 1560 000 ml @ 130 mls/hr IV . Q7H42M [facility] Rx#:[id number] Other: Voiding Method External Catheter Diaper Diaper Incontinent Incontinent # Bowel Movements 1 - Exam GENERAL DESCRIPTION: An elderly female lying in bed in no distress RESPIRATORY SYSTEM: Unlabored breathing , decreased breath sounds at bases HEART: S1 S2 regular rate and rhythm , ABDOMEN: Soft , no tenderness EXTREMITIES: No edema feet - Labs CBC & Chem 7: 06/16/21 05:20 06/16/21 05:20 Labs: Abnormal Lab Results - Last 24 Hours (Table) 06/15/21 06/15/21 06/15/21 Range/Units 07:44 16:15 20:27 RBC (4.10-5.20) X 10*6/uL Hgb (12.0-15.0) g/dL Hct (37.2-46.3) % MCH (27.0-32.0) pg MCHC (32.0-37.0) g/dL RDW (11.5-14.5) % MPV (9.5-12.2) fL Immature Gran # (0.00-0.04) X 10*3/uL Anion Gap (10.00-18.00) mmol/L BUN (9.0-27.0) mg/dL Est GFR (CKD-EPI)AfAm (60.0-200.0) Est GFR (CKD-EPI)NonAf (60.0-200.0) BUN/Creatinine Ratio (12.00-20.00) Ratio POC Glucose (mg/dL) 121 H 126 H (75-99) mg/dL Calcium (8.7-10.3) mg/dL Procalcitonin 66.70 H (0.02-0.09) ng/mL 06/16/21 06/16/21 Range/Units 05:20 05:20 RBC 2.73 L (4.10-5.20) X 10*6/uL Hgb 7.3 L (12.0-15.0) g/dL Hct 24.0 L (37.2-46.3) % MCH 26.7 L (27.0-32.0) pg MCHC 30.4 L (32.0-37.0) g/dL RDW 18.4 H (11.5-14.5) % MPV 8.9 L (9.5-12.2) fL Immature Gran # 0.06 H (0.00-0.04) X 10*3/uL Anion Gap 7.20 L (10.00-18.00) mmol/L BUN 43.8 H (9.0-27.0) mg/dL Est GFR (CKD-EPI)AfAm 51.2 L (60.0-200.0) Est GFR (CKD-EPI)NonAf 44.2 L (60.0-200.0) BUN/Creatinine Ratio 36.50 H (12.00-20.00) Ratio POC Glucose (mg/dL) (75-99) mg/dL Calcium 7.0 L (8.7-10.3) mg/dL Procalcitonin (0.02-0.09) ng/mL Microbiology - Last 24 Hours (Table) 06/13/21 14:46 Urine Culture - Final Urine,Clean Catch Escherichia coli 06/13/21 14:30 Blood Culture - Preliminary Blood No Growth after 48 hours Assessment and Plan (1) UTI (urinary tract infection) Current Visit: No Status: Acute Code(s): N39.0 - URINARY TRACT INFECTION, SITE NOT SPECIFIED SNOMED Code(s): 81637157 Plan: 1patient presented to hospital with mental status changes weakness foul- smelling urine with a history of recurrent UTI and did have a positive UA likely symptomatic urinary tract infection from enteric gram-negative pathogen. 2patient with wound to the left heel and left foot area but no cellulitis. 3continue with cefepime 1 g every 12 hours waiting for the culture to finalize 4-local wound care per wound care team 5- elevated pro calcitonin evidence of bilateral pleural effusion benefit from pulmonary evaluation and need for thoracocentesis discussed with admitting team Time with Patient: Less than 30
[2021-06-16] MEDS: ATORVASTATIN 10 MG TAB PO SCH (22:39)
[2021-06-17] MEDS: SODIUM CHLORIDE 0.9% 1,000 ML IV SCH ×2 (05:08→07:29)
[2021-06-17 07:00] LABS: Glucose,Whole Blood 96 mg/dL (75-99)
[2021-06-17] MEDS: INSULIN ASPART (NovoLOG) 100 UNIT/ML VIAL SQ SCH ×4 (07:15→21:02)
[2021-06-17] MEDS: CEFEPIME 1 GM in SODIUM CHLORIDE 0.9% 50 ML IVPB SCH ×2 (07:42→21:00)
[2021-06-17] MEDS: HEPARIN SODIUM,PORCINE/PF 5,000 UNIT/0.5 ML SYRINGE SQ SCH ×3 (07:42→23:22)
[2021-06-17] MEDS: METOPROLOL TARTRATE 12.5 MG TAB PO SCH ×2 (07:42→21:07)
[2021-06-17] MEDS: ASPIRIN 81 MG PO SCH (07:43)
[2021-06-17] MEDS: COLLAGENASE 250 UNIT/GM OINTMENT 30 GM TUBE TOPICAL SCH (07:43)
[2021-06-17] MEDS: PANTOPRAZOLE 40 MG TABLET PO SCH (07:43)
[2021-06-17 08:37] LABS: Anisocytosis Slight; Basophils % (A) 0 %; Eosinophils # (A) 0.1 k/uL (0-0.7); Eosinophils % (A) 1 %; HCT 33.9 % (34.0-46.0); HGB 9.9 gm/dL (11.4-16.0); Hypochromasia Marked; Lymphocytes # (A) 1.9 k/uL (1.0-4.8); Lymphocytes % (A) 19 %; MCH 27.6 pg (25.0-35.0); MCHC 29.3 g/dL (31.0-37.0); Mean Platelet Volume 7.5; Monocytes # (A) 0.3 k/uL (0-1.0); Monocytes % (A) 3 %; Neutrophils # (A) 7.7 k/uL (1.3-7.7); Neutrophils % (A) 76 %; Platelet Count 397 k/uL (150-450); RBC 3.58 m/uL (3.80-5.40); WBC 10.2 k/uL (3.8-10.6)
[2021-06-17 08:41] LABS: African American GFR (CKD) 55 (>60 ml/min/1.73 sqM); Anion Gap 6 mmol/L; Blood Urea Nitrogen 38 mg/dL (7-17); Calcium 7.6 mg/dL (8.4-10.2); Carbon Dioxide 19 mmol/L (22-30); Chloride 113 mmol/L (98-107); Glucose 89 mg/dL (74-99); Magnesium 1.7 mg/dL (1.6-2.3); Non-African American GFR(CKD) 48 (>60 ml/min/1.73 sqM); Potassium 3.9 mmol/L (3.5-5.1); Sodium 138 mmol/L (137-145)
[2021-06-17 08:47] LABS: MCV 94.5 fL (80.0-100.0)
[2021-06-17] MEDS ORDERED: FUROSEMIDE 10 MG/ML 4 ML VIAL IV STA (09:47)
--- NOTE | 2021-06-17 10:26 | XR ---
EXAMINATION TYPE: XR chest 2V DATE OF EXAM: 06/17/2021 COMPARISON: 06/15/2021 INDICATION: Hypoxia TECHNIQUE: Frontal and lateral views of the chest are obtained. FINDINGS: The heart size is normal. The pulmonary vasculature is normal. There is a moderate right pleural effusion. Minimal left pleural effusion. Difficult to exclude.. IMPRESSION: 1. Moderate right pleural effusion may be somewhat increased from comparison. A minimal left pleural effusion may be present. Follow-up is recommended.
--- NOTE | 2021-06-17 10:32 | US ---
EXAMINATION TYPE: US chest DATE OF EXAM: 06/17/2021 COMPARISON: NONE CLINICAL HISTORY: kiki pleural effusion. TECHNIQUE: Targeted ultrasound of the posterior lower bilateral hemithoraces Exam done portable EXAM MEASUREMENTS: Right Pleural Effusion pocket size: 11.6 cm Right skin surface to fluid distance: 2.1 cm Left Pleural Effusion pocket size: 8.3 cm Left skin surface to fluid distance: 3.1 cm Right side marked for possible thoracentesis outside the dept. Left side marked for possible thoracentesis outside the dept. Pulmonologists are able to review the images in the patient?s EMR. IMPRESSIONS: 1. Bilateral pleural effusions.
[2021-06-17 11:37] LABS: Glucose,Whole Blood 140 mg/dL (75-99)
--- NOTE | 2021-06-17 12:41 | P.CNPUL ---
History of Present Illness Consult date: 06/17/21 Requesting physician: Sher Hurt Reason for consult: pleural effusion Chief complaint: Bilateral pleural effusions, elevated pro calcitonin History of present illness: This is a 76-year-old female patient with complex medical history including hypertension, hyperlipidemia, diabetes mellitus type 2, chronic kidney disease, coronary artery disease, chronic wounds on the left ankle with previous history of surgery, and sacral wound, nonsmoker. Generally patient is quite edgard ilitated. We had previously seen her in consultation twice, with the last time in November 2020. In addition patient does have history of chronic diastolic CHF. Patient speaks very limited [place], she is able to provide some simple answers but unable to provide thorough history. Family members are not at the bedside. On 06/13/2021 patient was brought to the emergency department for evaluation of altered mental status, low blood pressure at home, and concern for possible urinary tract infection. Patient has a history of urinary tract infections in the past, with similar presentation. Patient is being followed by home health agency nurse practitioner and nursing and receiving wound care. She was also having some dark and sticky bowel movements. Urinalysis in the emergency department showed evidence of acute urinary tract infection, stool occult blood was negative, chest x-ray showed bilateral pleural effusions that were somewhat improved compared to her previous chest x-ray. Patient had evidence of acute kidney injury on top of chronic kidney disease possibly related to dehydration and sepsis related to acute urinary tract infection. She was fluid resuscitated in the emergency department, she was started on antibiotics in the form of cefepime, urine culture showing E. coli which was sensitive to cefepime. Blood culture has shown no growth. Procalcitonin level was elevated at 66.7 during this admission. Her lab evaluation during this admission did not show significant elevation of her white blood cell count, on today's labs white blood cell count is 10.2, hemoglobin is 9.9 relatively stable since admission, platelet count is 397, sodium is 138, potassium 3.9, chloride is 113, CO2 is 19, B1 is 38 and creatinine 1.13, improved since admission. Patient denies any difficulty breathing, she is resting quietly in bed, she is answering some simple questions she denies any fever or chills no chest discomfort. 3 L of oxygen pulse ox is 91-97%, we were asked to see the patient in consultation for bilateral pleural effusions and elevated pro calcitonin level. Review of Systems All systems: negative Constitutional: Denies chills, Denies fever Eyes: denies blurred vision, denies pain Ears, nose, mouth and throat: Denies headache, Denies sore throat Cardiovascular: Denies chest pain, Denies shortness of breath Respiratory: Denies cough Gastrointestinal: Denies abdominal pain, Denies diarrhea, Denies nausea, Denies vomiting Genitourinary: Denies dysuria, Denies hematuria Musculoskeletal: Denies myalgias Integumentary: Denies pruritus, Denies rash Neurological: Reports change in mentation, Reports gait dysfunction, Denies numbness, Denies weakness Psychiatric: Denies anxiety, Denies depression Endocrine: Denies fatigue, Denies weight change Past Medical History Past Medical History: Coronary Artery Disease (CAD), Diabetes Mellitus, Hyperlipidemia, Hypertension Additional Past Medical History / Comment(s): mild, wound care center for left. left broken ankle. History of Any Multi-Drug Resistant Organisms: None Reported Past Surgical History: Cholecystectomy, Heart Catheterization With Stent, Orthopedic Surgery Additional Past Surgical History / Comment(s): hip surgery, cataract sx, left ankle surgery 2020 Past Anesthesia/Blood Transfusion Reactions: No Reported Reaction Date of Last Stent Placement:: 2000 Past Psychological History: No Psychological Hx Reported Smoking Status: Never smoker Past Alcohol Use History: None Reported Past Drug Use History: None Reported Medications and Allergies Home Medications Medication Instructions Recorded Confirmed Type Latanoprost/Pf [Latanoprost 0.005% 1 drop BOTH EYES HS 09/14/20 06/13/21 History Eye Drop] Sodium Bicarbonate Tab 650 mg PO TID #90 tab 11/20/20 06/13/21 Rx Cholecalciferol (Vitamin D3) 125 mcg PO DAILY 12/25/20 06/13/21 History [Vitamin D3 (125 MCG = 5,000 IU)] Iron Polysaccharide Complex 150 mg PO DAILY 12/25/20 06/13/21 History [Ferrex 150] Metoprolol Succinate (ER) [Toprol 100 mg PO DAILY 12/25/20 06/13/21 History XL] Pantoprazole Sodium [Protonix] 40 mg PO DAILY 12/25/20 06/13/21 History Simvastatin [Zocor] 20 mg PO HS 12/25/20 06/13/21 History amLODIPine [Norvasc] 5 mg PO DAILY 12/25/20 06/13/21 History Aspirin EC [Ecotrin Low Dose] 81 mg PO DAILY 06/13/21 06/13/21 History Collagenase [Santyl Ointment] 1 applic TOPICAL DAILY 06/13/21 06/13/21 History Diphenoxylate HCl/Atropine 2 tab PO QID PRN 06/13/21 06/13/21 History [Lomotil 2.5-0.025 mg Tablet] Insulin Lispro [humaLOG Kwikpen] See Protocol SQ AC-TID PRN 06/13/21 06/13/21 History Ondansetron Odt [Zofran Odt] 4 mg PO Q12HR PRN 06/13/21 06/13/21 History glipiZIDE [Glucotrol] 2.5 mg PO BID 06/13/21 06/13/21 History Allergies Allergy/AdvReac Type Severity Reaction Status Date / Time No Known Allergies Allergy Verified 06/13/21 18:04 Physical Exam Vitals: Vital Signs Temp Pulse Resp BP Pulse Ox 06/17/21 07:09 97.5 F L 116 H 18 108/63 91 L 06/17/21 00:49 97.4 F L 88 15 107/61 97 06/16/21 19:20 97.6 F 95 22 107/67 99 06/16/21 12:40 97.8 F 111 H 18 100/63 96 Intake and Output 06/16/21 06/17/21 06/17/21 22:59 06:59 14:59 Intake Total 1090 Balance 1090 Intake: IV 1090 Cefepime 1 gm In Sodium 50 Chloride 0.9% 50 ml @ 12. 5 mls/hr IVPB Q12HR [facility] Rx#:[id number] Sodium Chloride 0.9% 1, 1040 000 ml @ 130 mls/hr IV . Q7H42M [facility] Rx#:[id number] Other: Voiding Method Diaper Diaper Incontinent Incontinent GENERAL EXAM: Alert, very pleasant, 76-year-old female on room air with pulse ox of 97%, patient knows limited [place], however she is able to understand [place] without any difficulty. comfortable in no apparent distress. HEAD: Normocephalic/atraumatic. EYES: Normal reaction of pupils, equal size. Conjunctiva pink, sclera white. NOSE: Clear with pink turbinates. THROAT: No erythema or exudates. NECK: No masses, no JVD, no thyroid enlargement, no adenopathy. CHEST: No chest wall deformity. Symmetrical expansion. LUNGS: Diminished breath sounds bilaterally, bibasilar crackles CVS: Regular rate and rhythm, normal S1 and S2, no gallops, no murmurs, no rubs ABDOMEN: Soft, nontender. No hepatosplenomegaly, normal bowel sounds, no guarding or rigidity. EXTREMITIES: No clubbing, left upper extremity edema, no cyanosis, 2+ pulses and upper and lower extremities. MUSCULOSKELETAL: Muscle strength and tone normal. SPINE: No scoliosis or deformity SKIN: No rashes, left heel wound, covered with the dressing, left sacral wound not examined CENTRAL NERVOUS SYSTEM: Alert and oriented -1. No focal deficits, tone is normal in all 4 extremities. Results - Laboratory Findings CBC and BMP: 06/17/21 07:58 06/17/21 07:58 PT/INR, D-dimer PT 13.1 sec (9.0-12.0) H 06/13/21 14:30 INR 1.2 (<1.2) H 06/13/21 14:30 Abnormal lab findings: Abnormal Labs 06/13/21 06/13/21 06/13/21 14:30 14:30 14:30 WBC RBC 3.69 L Hgb 10.0 L Hct 32.8 L MCH MCHC 30.3 L RDW 16.2 H MPV Immature Gran # Neutrophils # PT 13.1 H INR 1.2 H Sodium 131 L Potassium 3.4 L Chloride 92 L Carbon Dioxide 33 H Anion Gap BUN 71 H Creatinine 1.90 H Est GFR (CKD-EPI)AfAm Est GFR (CKD-EPI)NonAf BUN/Creatinine Ratio Glucose POC Glucose (mg/dL) Calcium 7.5 L Magnesium Alkaline Phosphatase 157 H C-Reactive Protein Total Protein 5.4 L Albumin 2.2 L Vitamin B12 Procalcitonin Urine Appearance Ur Leukocyte Esterase Urine RBC Urine WBC Urine WBC Clumps Urine Bacteria Hyaline Casts Urine Mucus 06/13/21 06/14/21 06/14/21 14:46 07:17 11:24 WBC RBC Hgb Hct MCH MCHC RDW MPV Immature Gran # Neutrophils # PT INR Sodium Potassium Chloride Carbon Dioxide Anion Gap BUN Creatinine Est GFR (CKD-EPI)AfAm Est GFR (CKD-EPI)NonAf BUN/Creatinine Ratio Glucose POC Glucose (mg/dL) 67 L 73 L Calcium Magnesium Alkaline Phosphatase C-Reactive Protein Total Protein Albumin Vitamin B12 Procalcitonin Urine Appearance Cloudy H Ur Leukocyte Esterase Large H Urine RBC 6 H Urine WBC 56 H Urine WBC Clumps Occasional H Urine Bacteria Many H Hyaline Casts 8 H Urine Mucus Rare H 06/14/21 06/14/21 06/14/21 16:38 16:44 20:32 WBC RBC Hgb Hct MCH MCHC RDW MPV Immature Gran # Neutrophils # PT INR Sodium 132 L Potassium Chloride Carbon Dioxide 20 L Anion Gap BUN 59 H Creatinine 1.45 H Est GFR (CKD-EPI)AfAm Est GFR (CKD-EPI)NonAf BUN/Creatinine Ratio Glucose 114 H POC Glucose (mg/dL) 145 H 105 H Calcium 6.8 L Magnesium Alkaline Phosphatase 179 H C-Reactive Protein 4.7 H Total Protein 5.0 L Albumin 2.0 L Vitamin B12 >2000.0 H Procalcitonin Urine Appearance Ur Leukocyte Esterase Urine RBC Urine WBC Urine WBC Clumps Urine Bacteria Hyaline Casts Urine Mucus 06/15/21 06/15/21 06/15/21 07:44 07:44 07:44 WBC 10.84 H RBC 2.95 L Hgb 7.9 L Hct 26.2 L MCH 26.8 L MCHC 30.2 L RDW 18.1 H MPV 9.1 L Immature Gran # 0.10 H Neutrophils # 8.18 H PT INR Sodium Potassium 3.2 L Chloride Carbon Dioxide Anion Gap 7.90 L BUN 49.8 H Creatinine Est GFR (CKD-EPI)AfAm 39.1 L Est GFR (CKD-EPI)NonAf 33.7 L BUN/Creatinine Ratio 33.20 H Glucose POC Glucose (mg/dL) Calcium 7.0 L Magnesium 1.4 L Alkaline Phosphatase C-Reactive Protein Total Protein Albumin Vitamin B12 Procalcitonin 66.70 H Urine Appearance Ur Leukocyte Esterase Urine RBC Urine WBC Urine WBC Clumps Urine Bacteria Hyaline Casts Urine Mucus 06/15/21 06/15/21 06/16/21 16:15 20:27 05:20 WBC RBC 2.73 L Hgb 7.3 L Hct 24.0 L MCH 26.7 L MCHC 30.4 L RDW 18.4 H MPV 8.9 L Immature Gran # 0.06 H Neutrophils # PT INR Sodium Potassium Chloride Carbon Dioxide Anion Gap BUN Creatinine Est GFR (CKD-EPI)AfAm Est GFR (CKD-EPI)NonAf BUN/Creatinine Ratio Glucose POC Glucose (mg/dL) 121 H 126 H Calcium Magnesium Alkaline Phosphatase C-Reactive Protein Total Protein Albumin Vitamin B12 Procalcitonin Urine Appearance Ur Leukocyte Esterase Urine RBC Urine WBC Urine WBC Clumps Urine Bacteria Hyaline Casts Urine Mucus 06/16/21 06/16/21 06/16/21 05:20 16:30 21:15 WBC RBC Hgb Hct MCH MCHC RDW MPV Immature Gran # Neutrophils # PT INR Sodium Potassium Chloride Carbon Dioxide Anion Gap 7.20 L BUN 43.8 H Creatinine Est GFR (CKD-EPI)AfAm 51.2 L Est GFR (CKD-EPI)NonAf 44.2 L BUN/Creatinine Ratio 36.50 H Glucose POC Glucose (mg/dL) 176 H 101 H Calcium 7.0 L Magnesium Alkaline Phosphatase C-Reactive Protein Total Protein Albumin Vitamin B12 Procalcitonin Urine Appearance Ur Leukocyte Esterase Urine RBC Urine WBC Urine WBC Clumps Urine Bacteria Hyaline Casts Urine Mucus 06/17/21 06/17/21 06/17/21 07:58 07:58 11:35 WBC RBC 3.58 L Hgb 9.9 L Hct 33.9 L MCH MCHC 29.3 L RDW 17.0 H MPV Immature Gran # Neutrophils # PT INR Sodium Potassium Chloride 113 H Carbon Dioxide 19 L Anion Gap BUN 38 H Creatinine 1.13 H Est GFR (CKD-EPI)AfAm Est GFR (CKD-EPI)NonAf BUN/Creatinine Ratio Glucose POC Glucose (mg/dL) 140 H Calcium 7.6 L Magnesium Alkaline Phosphatase C-Reactive Protein Total Protein Albumin Vitamin B12 Procalcitonin Urine Appearance Ur Leukocyte Esterase Urine RBC Urine WBC Urine WBC Clumps Urine Bacteria Hyaline Casts Urine Mucus - Diagnostic Findings Chest x-ray: report reviewed, image reviewed Additional studies: Ultrasound of the chest reviewed, CT chest without contrast reviewed Assessment and Plan Plan: Assessment: #1. Bilateral pleural effusions, right greater than left, ultrasound of the chest showed 11.6 cm pocket on the right, and left pleural effusion pocket of 8.3 cm. We'll proceed with diagnostic and therapeutic thoracentesis today on 06/17/2021 #2. Acute urinary tract infection related to E. coli #3. Acute on chronic kidney disease #4. Acute kidney injury related to sepsis and dehydration, improved #5. Chronic diastolic CHF #6. Chronic kidney disease stage III #7. History of nonhealing wound in the left ankle with previous history of surgery, and sacral wound #8. Diabetes mellitus type 2 #9. Previous history of UTIs #10. General medical debility Plan: Ultrasound chest has been reviewed Chest x-ray and computed tomography scan reviewed We'll proceed with right-sided thoracentesis today We'll send the pleural fluid for analysis, cytology and cultures Continue medical treatment Continue antibiotics I have personally seen and examined the patient, performed the documentation and the assessment and plan as written. Number of minutes spent on the visit: [15] Time with Patient: Greater than 30
--- NOTE | 2021-06-17 14:12 | P.PN ---
Subjective Progress Note Date: 06/17/21 76-year-old female was admitted for further evaluation and treatment of UTI with urosepsis and pleural effusion with elevated calcitonin. Patient was seen and examined at bedside. She reports shortness of breath and overall generalized swelling of her body. She is slightly tachycardic. She is saturating around 90-95% on 3 L of supplemental oxygen. Her blood cultures have been negative so far. Available labs were reviewed. Chest x-ray and chest ultrasound report reviewed. Pulmonology consultation taken and patient will likely undergo diagnostic and therapeutic thoracentesis today. Patient has been receiving IV fluids and there is no output documented as patient is incontinent and wears diaper. Objective - Vital Signs Vital signs: Vital Signs Temp 97.5 F L 06/17/21 07:09 Pulse 116 H 06/17/21 07:09 Resp 18 06/17/21 07:09 BP 108/63 06/17/21 07:09 Pulse Ox 91 L 06/17/21 07:09 Intake & Output 06/16/21 06/17/21 06/17/21 18:59 06:59 18:59 Intake Total 1090 Balance 1090 Intake: IV 1090 Cefepime 1 gm In Sodium 50 Chloride 0.9% 50 ml @ 12. 5 mls/hr IVPB Q12HR [facility] Rx#:[id number] Sodium Chloride 0.9% 1, 1040 000 ml @ 130 mls/hr IV . Q7H42M [facility] Rx#:[id number] Other: Voiding Method Diaper Diaper Diaper Incontinent Incontinent Incontinent - Exam Constitutional: On supplemental oxygen, not in acute distress HEENT: Pupils equally reactive to light, atraumatic, normocephalic. Lungs: Bilaterally diminished, right more than left, right basilar crackle, no wheezing Cardiovascular: RRR, S1-S2 normal, no murmur, 2+ peripheral edema Abdominal: Soft, nontender, no guarding, rebound or rigidity Extremities: No cyanosis or clubbing Neuro: No focal neurological signs alert - Labs CBC & Chem 7: 06/17/21 07:58 06/17/21 07:58 Labs: Abnormal Lab Results - Last 24 Hours (Table) 06/16/21 06/16/21 06/17/21 Range/Units 16:30 21:15 07:58 RBC 3.58 L (3.80-5.40) m/uL Hgb 9.9 L (11.4-16.0) gm/dL Hct 33.9 L (34.0-46.0) % MCHC 29.3 L (31.0-37.0) g/dL RDW 17.0 H (11.5-15.5) % Chloride (98-107) mmol/L Carbon Dioxide (22-30) mmol/L BUN (7-17) mg/dL Creatinine (0.52-1.04) mg/dL POC Glucose (mg/dL) 176 H 101 H (75-99) mg/dL Calcium (8.4-10.2) mg/dL 06/17/21 06/17/21 Range/Units 07:58 11:35 RBC (3.80-5.40) m/uL Hgb (11.4-16.0) gm/dL Hct (34.0-46.0) % MCHC (31.0-37.0) g/dL RDW (11.5-15.5) % Chloride 113 H (98-107) mmol/L Carbon Dioxide 19 L (22-30) mmol/L BUN 38 H (7-17) mg/dL Creatinine 1.13 H (0.52-1.04) mg/dL POC Glucose (mg/dL) 140 H (75-99) mg/dL Calcium 7.6 L (8.4-10.2) mg/dL Microbiology - Last 24 Hours (Table) 06/13/21 14:30 Blood Culture - Preliminary Blood No Growth after 72 hours Assessment and Plan Assessment: 1. Sepsis with E. coli UTI - Continue cefepime - ID has been consulted - I will discontinue IV fluid at this time due to risk of volume overload. M onitor blood pressure closely. Patient might need pressor support if her BP drops acutely. 2. Pleural effusion with elevated procalcitonin - Pulmonology consult taken. - Diagnostic and therapeutic thoracentesis - Follow pleural fluid analysis - I would also obtain echocardiogram to assess for ejection fraction 3. Acute hypoxic respiratory failure - Secondary to #2 - On supplemental oxygen - Pulmonology following 4. Acute kidney injury - Secondary to sepsis, dehydration due to poor oral intake - Monitoring creatinine, trend is improving 5. 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 - Consult wound care 6. Type 2 diabetes mellitus -Sliding-scale) continue glucose monitoring 7. Hypokalemia - Improved with replacement 8. Toxic metabolic encephalopathy in the setting of sepsis - Neurology following - CT of the head negative for acute intracranial abnormality 9. Hypertension - Home medications are being held secondary to hypotension 10. Chronic debility and deconditioning DVT prophylaxis with subcutaneous heparin Discussed with patient and RN
--- NOTE | 2021-06-17 15:07 | XR ---
EXAMINATION TYPE: XR chest 1V portable DATE OF EXAM: 06/17/2021 COMPARISON: 06/17/2021 INDICATION: Postthoracentesis TECHNIQUE: Single frontal view of the chest is obtained. FINDINGS: The heart size is normal. The pulmonary vasculature is normal. Previous right pleural effusion appears diminished. No pneumothorax is evident. There may be some moses vation of the right diaphragm. Minimal left pleural effusion is not excluded. IMPRESSION: 1. Diminished right pleural effusion postthoracentesis. No pneumothorax is evident. 2. Minimal left pleural effusion remains present
[2021-06-17 16:38] LABS: Glucose,Whole Blood 199 mg/dL (75-99)
--- NOTE | 2021-06-17 20:03 | OP ---
OPERATIVE REPORT OPERATIVE REPORT: Right-sided thoracentesis. PREOPERATIVE DIAGNOSIS: Right-sided pleural effusion. POSTOPERATIVE DIAGNOSIS: Right-sided pleural effusion. ANESTHESIA USED: Two mL of 1% lidocaine. PROCEDURE DESCRIPTION: The patient was placed in a sitting-upright position. The area below the right scapula was prepared in a sterile fashion and drapes were applied. At the site of the marking by ultrasound, which was basically on the eighth intercostal space and tip of the scapula, the area was locally anesthetized. Then a 26-gauge needle was inserted into the pleural space until the fluid was localized with the needle. Then a small tiny incision was made, and the standard thoracentesis catheter and needle were used. Needle was advanced into the pleural space until the fluid was obtained. Then the catheter was advanced over of the needle, and the needle was pulled out of the pleural space. Freely flowing fluid was removed; roughly 1200 mL drained from the right pleural space. The fluid was umberto in color, not bloody. Fluid was sent for different diagnostic studies. Chest x-ray showed no evidence of any immediate complications. MMODL / IJN: [id number] /
[2021-06-17 20:50] LABS: Glucose,Whole Blood 130 mg/dL (75-99)
[2021-06-17] MEDS: ATORVASTATIN 10 MG TAB PO SCH (21:07)
[2021-06-17] MEDS: ACETAMINOPHEN TAB 325 MG TAB PO PRN (21:07)
[2021-06-17 23:25] LABS: Appearance,BF Clear
--- NOTE | 2021-06-18 07:24 | XR ---
EXAMINATION TYPE: XR chest 1V portable DATE OF EXAM: 06/18/2021 Comparison: 06/17/2021 Clinical History: 76-year-old female Pleural effusion Findings: Patient is obliqued towards the right. There is some continued bibasilar opacity. Mild patchy opacity in the right midlung appears increased. Prominent visceral arterial calcifications left upper quadra nt. Impression: Continued bibasilar opacities. Some patchy right midlung opacity has increased in the interval, proba ble atelectasis.
[2021-06-18 07:27] LABS: Glucose,Whole Blood 100 mg/dL (75-99)
[2021-06-18 08:44] LABS: Glucose, BF Source Pleural Fluid; Glucose, Body Fluid 139 mg/dL; LDH, Body Fluid Source Pleural Fluid; T. Protein, Body Fluid Source Pleural Fluid; Total Protein, Body Fluid 1300 mg/dL
[2021-06-18] MEDS: COLLAGENASE 250 UNIT/GM OINTMENT 30 GM TUBE TOPICAL SCH (09:14)
[2021-06-18 09:44] LABS: Anisocytosis Slight; Basophils % (A) 0 %; Eosinophils # (A) 0.1 k/uL (0-0.7); Eosinophils % (A) 3 %; HCT 29.6 % (34.0-46.0); HGB 8.7 gm/dL (11.4-16.0); Hypochromasia Marked; Lymphocytes # (A) 1.2 k/uL (1.0-4.8); Lymphocytes % (A) 24 %; MCH 27.4 pg (25.0-35.0); MCHC 29.4 g/dL (31.0-37.0); MCV 93.4 fL (80.0-100.0); Mean Platelet Volume 7.9; Monocytes # (A) 0.2 k/uL (0-1.0); Monocytes % (A) 4 %; Neutrophils # (A) 3.4 k/uL (1.3-7.7); Neutrophils % (A) 69 %; Platelet Count 348 k/uL (150-450); RBC 3.17 m/uL (3.80-5.40); RDW 17.3 % (11.5-15.5)
[2021-06-18] MEDS: INSULIN ASPART (NovoLOG) 100 UNIT/ML VIAL SQ SCH ×4 (09:52→21:16)
[2021-06-18 10:04] LABS: African American GFR (CKD) 57 (>60 ml/min/1.73 sqM); Anion Gap 4 mmol/L; Blood Urea Nitrogen 35 mg/dL (7-17); Calcium 7.7 mg/dL (8.4-10.2); Carbon Dioxide 21 mmol/L (22-30); Chloride 113 mmol/L (98-107); Glucose 104 mg/dL (74-99); LDH 428 U/L (313-618); Non-African American GFR(CKD) 49 (>60 ml/min/1.73 sqM); Sodium 138 mmol/L (137-145); Total Protein 4.5 g/dL (6.3-8.2)
[2021-06-18] MEDS: ACETAMINOPHEN TAB 325 MG TAB PO PRN ×3 (10:12→23:43)
[2021-06-18] MEDS: ASPIRIN 81 MG PO SCH (10:12)
[2021-06-18] MEDS: HEPARIN SODIUM,PORCINE/PF 5,000 UNIT/0.5 ML SYRINGE SQ SCH ×3 (10:12→23:39)
[2021-06-18] MEDS: PANTOPRAZOLE 40 MG TABLET PO SCH (10:12)
[2021-06-18] MEDS: CEFEPIME 1 GM in SODIUM CHLORIDE 0.9% 50 ML IVPB SCH (10:15)
[2021-06-18 11:25] LABS: Glucose,Whole Blood 130 mg/dL (75-99)
--- NOTE | 2021-06-18 12:23 | P.PN ---
Subjective Progress Note Date: 06/18/21 76-year-old female was admitted for further evaluation and treatment of UTI with urosepsis and pleural effusion with elevated calcitonin. Status post right thoracentesis yesterday with 1200 mL out, fluid analysis pending. Echocardiogram was ordered which is pending. Available labs and chest x-ray reviewed. Patient reports improvement in breathing. Her blood pressure is on the lower side, therefore I will discontinue metoprolol at this time. She is on 3 L of supplemental oxygen. She received 1 dose of IV Lasix yesterday. She denies chest pain or palpitations. Afebrile. Medication list reviewed. Objective - Vital Signs Vital signs: Vital Signs Temp 97.3 F L 06/18/21 08:23 Pulse 77 06/18/21 08:23 Resp 16 06/18/21 08:23 BP 94/62 06/18/21 08:23 Pulse Ox 99 06/18/21 08:23 Intake & Output 06/17/21 06/18/21 06/18/21 18:59 06:59 18:59 Intake Total 220 240 Balance 220 240 Intake: IV 240 Sodium Chloride 0.9% 1, 240 000 ml @ 130 mls/hr IV . Q7H42M [facility] Rx#:[id number] Oral 220 Other: Voiding Method Diaper Diaper Diaper Incontinent Incontinent Incontinent # Voids 3 1 # Bowel Movements 1 - Exam Constitutional: On 3 L supplemental oxygen, not in acute distress HEENT: Pupils equally reactive to light, atraumatic, normocephalic. Lungs: Bilaterally diminished, no crackles or wheezing Cardiovascular: RRR, S1-S2 normal, no murmur, 2+ peripheral edema Abdominal: Soft, nontender, no guarding, rebound or rigidity Extremities: No cyanosis or clubbing Neuro: No focal neurological signs alert - Labs CBC & Chem 7: 06/18/21 09:02 06/18/21 09:02 Labs: Abnormal Lab Results - Last 24 Hours (Table) 06/17/21 06/17/21 06/18/21 Range/Units 16:37 20:49 07:26 RBC (3.80-5.40) m/uL Hgb (11.4-16.0) gm/dL Hct (34.0-46.0) % MCHC (31.0-37.0) g/dL RDW (11.5-15.5) % Chloride (98-107) mmol/L Carbon Dioxide (22-30) mmol/L BUN (7-17) mg/dL Creatinine (0.52-1.04) mg/dL Glucose (74-99) mg/dL POC Glucose (mg/dL) 199 H 130 H 100 H (75-99) mg/dL Calcium (8.4-10.2) mg/dL Total Protein (6.3-8.2) g/dL 06/18/21 06/18/21 06/18/21 Range/Units 09:02 09:02 11:23 RBC 3.17 L (3.80-5.40) m/uL Hgb 8.7 L (11.4-16.0) gm/dL Hct 29.6 L (34.0-46.0) % MCHC 29.4 L (31.0-37.0) g/dL RDW 17.3 H (11.5-15.5) % Chloride 113 H (98-107) mmol/L Carbon Dioxide 21 L (22-30) mmol/L BUN 35 H (7-17) mg/dL Creatinine 1.10 H (0.52-1.04) mg/dL Glucose 104 H (74-99) mg/dL POC Glucose (mg/dL) 130 H (75-99) mg/dL Calcium 7.7 L (8.4-10.2) mg/dL Total Protein 4.5 L (6.3-8.2) g/dL Microbiology - Last 24 Hours (Table) 06/17/21 14:30 Anaerobic Culture - Preliminary Pleural Fluid 06/17/21 14:30 Body Fluid Culture - Preliminary Pleural Fluid 06/17/21 14:30 Acid Fast Bacilli Culture - Preliminary Pleural Fluid 06/17/21 14:30 Fungal Culture - Preliminary Pleural Fluid 06/13/21 14:30 Blood Culture - Preliminary Blood No Growth after 96 hours Assessment and Plan Assessment: 1. Sepsis with E. coli UTI - Continue cefepime - ID has been consulted and is following 2. Pleural effusion with elevated procalcitonin - Pulmonology consult taken. - Status post Diagnostic and therapeutic thoracentesis, 1200 cc out - Follow pleural fluid analysis - Echocardiogram ordered, pending completion - Check chest x-ray in the a.m. 3. Acute hypoxic respiratory failure - Secondary to #2 - On supplemental oxygen - Pulmonology following 4. Acute kidney injury - Secondary to sepsis, dehydration due to poor oral intake - Monitoring creatinine, trend is improving 5. 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 - Consult wound care 6. Type 2 diabetes mellitus -Sliding-scale) continue glucose monitoring 7. Hypokalemia - Improved with replacement 8. Toxic metabolic encephalopathy in the setting of sepsis - Neurology following - CT of the head negative for acute intracranial abnormality 9. Hypertension - Home medications are being held secondary to hypotension 10. Chronic debility and deconditioning DVT prophylaxis with subcutaneous heparin Discussed with patient and RN Likely DC in next 24-48 hours.
--- NOTE | 2021-06-18 12:28 | ECHOF ---
Referral Reason:Volume overload, check EF MEASUREMENTS -------- HEIGHT: 129.5 cm WEIGHT: 45.4 kg BP: RVIDd: 1.6 cm (< 3.3) IVSd: 1.0 cm (0.6 - 1.1) LVIDd: 4.0 cm (3.9 - 5.3) LVPWd: 1.1 cm (0.6 - 1.1) IVSs: 1.3 cm LVIDs: 3.2 cm LVPWs: 1.4 cm Ao Diam: 3.0 cm (2.0 - 3.7) AV Cusp: 1.6 cm (1.5 - 2.6) LA Diam: 3.0 cm (2.7 - 3.8) MV E Martin: 0.65 m/s MV DecT: 98 ms MV A Martin: 0.38 m/s MV E/A Ratio: 1.73 RAP: 5.00 mmHg RVSP: 9.35 mmHg FINDINGS -------- This was a technically difficult study with suboptimal views. The left ventricular size is normal. Left ventricular wall thickness is normal. Overall left vent ricular systolic function is mild-moderately impaired with, an EF between 40 - 45 %. The right ventricle is normal in size. The left atrial size is normal. The right atrial size is normal. 1.5mg of Lumason was utilized for enhancement of images The aortic valve is trileaflet and appears structurally normal. The mitral valve is normal. The mitral valve leaflets are mildly thickened. Mild mitral annular c alcification present. There is trace mitral regurgitation. The tricuspid valve appears structurally normal. Trace tricuspid regurgitation present. Right delroy tricular systolic pressure is normal at < 35 mmHg. There is no pulmonic regurgitation present. There is a moderate pericardial effusion is located near the right ventricle with fibrin or thrombus forming. There is no evidence of cardiac tamponade. Large Pleural Effusion. CONCLUSIONS -------- 1. The left ventricular size is normal. 2. Left ventricular wall thickness is normal. 3. The mitral valve leaflets are mildly thickened. 4. Mild mitral annular calcification present. 5. There is a moderate pericardial effusion is located near the right ventricle with fibrin or thromb us forming. 6. There is no evidence of cardiac tamponade. JEWEL HOLE DRILLER: Alma Land RD
--- NOTE | 2021-06-18 13:25 | P.PN ---
Subjective Progress Note Date: 06/18/21 Principal diagnosis: Pleural effusions This is a 76-year-old female patient with complex medical history including hypertension, hyperlipidemia, diabetes mellitus type 2, chronic kidney disease, coronary artery disease, chronic wounds on the left ankle with previous history of surgery, and sacral wound, nonsmoker. Generally patient is quite debilitated. We had previously seen her in consultation twice, with the last time in November 2020. In addition patient does have history of chronic diastolic CHF. Patient speaks very limited Iranian, she is able to provide some simple answers but unable to provide thorough history. Family members are not at the bedside. On 06/13/2021 patient was brought to the emergency department for evaluation of altered mental status, low blood pressure at home, and concern for possible urinary tract infection. Patient has a history of urinary tract infections in the past, with similar presentation. Patient is being followed by home health agency nurse practitioner and nursing and receiving wound care. She was also having some dark and sticky bowel movements. Urinalysis in the emergency department showed evidence of acute urinary tract infection, stool occult blood was negative, chest x-ray showed bilateral pleural effusions that were somewhat improved compared to her previous chest x-ray. Patient had evidence of acute kidney injury on top of chronic kidney disease possibly related to dehydration and sepsis related to acute urinary tract infection. She was fluid resuscitated in the emergency department, she was started on antibiotics in the form of cefepime, urine culture showing E. coli which was sensitive to cefepime. Blood culture has shown no growth. Procalcitonin level was elevated at 66.7 during this admission. Her lab evaluation during this admission did not show significant elevation of her white blood cell count, on today's labs white blood cell count is 10.2, hemoglobin is 9.9 relatively stable since admission, platelet count is 397, sodium is 138, potassium 3.9, chloride is 113, CO2 is 19, B1 is 38 and creatinine 1.13, improved since admission. Patient denies any difficulty breathing, she is resting quietly in bed, she is answering some simple questions she denies any fever or chills no chest discomfort. 3 L of oxygen pulse ox is 91-97%, we were asked to see the patient in consultation for bilateral pleural effusions and elevated pro calcitonin level. On 06/18/2021 patient seen in follow-up on medical surgical floor. Yesterday she underwent right-sided thoracentesis with removal of a little over 1.2 L of pleural fluid which was sent for pleural fluid analysis, cytology and cultures, pleural fluid analysis revealed transudative fluid consistent with CHF. Patient tolerated procedure well. Today's chest x-ray showing continued bibasilar opacities, patchy right midlung opacity the possibility of atelectasis. Today's labs have been reviewed with the token is 5.0, hemoglobin is 8.7, sodium is 1:30, potassium is 4.0, CO2 is 21, BUN history, creatinine is 1.1. Clinically patient is being comfortably, denies any shortness of breath or cough, no complaints of chest pain. She's been afebrile. She remains on cefepime for empiric antibiotic coverage, and in view of E. coli urinary tract infection. Low suspicion for pneumonia, based on pleural fluid analysis Objective - Vital Signs Vital signs: Vital Signs Temp 97.3 F L 06/18/21 08:23 Pulse 77 06/18/21 08:23 Resp 16 06/18/21 08:23 BP 94/62 06/18/21 08:23 Pulse Ox 99 06/18/21 08:23 Intake & Output 06/17/21 06/18/21 06/18/21 18:59 06:59 18:59 Intake Total 220 240 Balance 220 240 Intake: IV 240 Sodium Chloride 0.9% 1, 240 000 ml @ 130 mls/hr IV . Q7H42M [facility] Rx#:[id number] Oral 220 Other: Voiding Method Diaper Diaper Diaper Incontinent Incontinent Incontinent # Voids 3 1 # Bowel Movements 1 - Exam GENERAL EXAM: Alert, very pleasant, 76-year-old female on 3l/min ox of 99%, patient knows limited Iranian, however she is able to understand Iranian without any difficulty. comfortable in no apparent distress. HEAD: Normocephalic/atraumatic. EYES: Normal reaction of pupils, equal size. Conjunctiva pink, sclera white. NOSE: Clear with pink turbinates. THROAT: No erythema or exudates. NECK: No masses, no JVD, no thyroid enlargement, no adenopathy. CHEST: No chest wall deformity. Symmetrical expansion. LUNGS: Diminished breath sounds bilaterally, bibasilar crackles CVS: Regular rate and rhythm, normal S1 and S2, no gallops, no murmurs, no rubs ABDOMEN: Soft, nontender. No hepatosplenomegaly, normal bowel sounds, no guarding or rigidity. EXTREMITIES: No clubbing, left upper extremity edema, no cyanosis, 2+ pulses and upper and lower extremities. MUSCULOSKELETAL: Muscle strength and tone normal. SPINE: No scoliosis or deformity SKIN: No rashes, left heel wound, covered with the dressing, left sacral wound not examined CENTRAL NERVOUS SYSTEM: Alert and oriented -1. No focal deficits, tone is normal in all 4 extremities. - Labs CBC & Chem 7: 06/18/21 09:02 06/18/21 09:02 Labs: Abnormal Lab Results - Last 24 Hours (Table) 06/17/21 06/17/21 06/18/21 Range/Units 16:37 20:49 07:26 RBC (3.80-5.40) m/uL Hgb (11.4-16.0) gm/dL Hct (34.0-46.0) % MCHC (31.0-37.0) g/dL RDW (11.5-15.5) % Chloride (98-107) mmol/L Carbon Dioxide (22-30) mmol/L BUN (7-17) mg/dL Creatinine (0.52-1.04) mg/dL Glucose (74-99) mg/dL POC Glucose (mg/dL) 199 H 130 H 100 H (75-99) mg/dL Calcium (8.4-10.2) mg/dL Total Protein (6.3-8.2) g/dL 06/18/21 06/18/21 06/18/21 Range/Units 09:02 09:02 11:23 RBC 3.17 L (3.80-5.40) m/uL Hgb 8.7 L (11.4-16.0) gm/dL Hct 29.6 L (34.0-46.0) % MCHC 29.4 L (31.0-37.0) g/dL RDW 17.3 H (11.5-15.5) % Chloride 113 H (98-107) mmol/L Carbon Dioxide 21 L (22-30) mmol/L BUN 35 H (7-17) mg/dL Creatinine 1.10 H (0.52-1.04) mg/dL Glucose 104 H (74-99) mg/dL POC Glucose (mg/dL) 130 H (75-99) mg/dL Calcium 7.7 L (8.4-10.2) mg/dL Total Protein 4.5 L (6.3-8.2) g/dL Microbiology - Last 24 Hours (Table) 06/17/21 14:30 Anaerobic Culture - Preliminary Pleural Fluid 06/17/21 14:30 Body Fluid Culture - Preliminary Pleural Fluid 06/17/21 14:30 Acid Fast Bacilli Culture - Preliminary Pleural Fluid 06/17/21 14:30 Fungal Culture - Preliminary Pleural Fluid 06/13/21 14:30 Blood Culture - Preliminary Blood No Growth after 96 hours Assessment and Plan Plan: Assessment: #1. Bilateral pleural effusions, right greater than left, ultrasound of the chest showed 11.6 cm pocket on the right, and left pleural effusion pocket of 8.3 cm. status post right-sided thoracentesis on 06/17/2021 would removal of 1.2. Pleural fluid which was transudative in nature consistent with congestive heart failure. Low suspicion for pneumonia #2. Acute urinary tract infection related to E. coli #3. Acute on chronic kidney disease #4. Acute kidney injury related to sepsis and dehydration, improved #5. Chronic diastolic CHF #6. Chronic kidney disease stage III #7. History of nonhealing wound in the left ankle with previous history of surgery, and sacral wound #8. Diabetes mellitus type 2 #9. Previous history of UTIs #10. General medical debility Plan: Patient is breathing comfortably Follow up chest x-ray has been reviewed showing continued bibasilar opacities, and right midlung atelectasis Pleural fluid analysis shows transudative fluid consistent with CHF Place the patient on Lasix 40 mg daily Continue antibiotics for urinary tract infection Follow-up labs tomorrow including CBC BMP, follow-up procalcitonin level I have personally seen and examined the patient, performed the documentation and the assessment and plan as written. Number of minutes spent on the visit: [15] Time with Patient: Less than 30
[2021-06-18] MEDS: FUROSEMIDE 40 MG TAB PO SCH (14:38)
[2021-06-18 16:45] LABS: Glucose,Whole Blood 171 mg/dL (75-99)
[2021-06-18 21:04] LABS: Glucose,Whole Blood 109 mg/dL (75-99)
--- NOTE | 2021-06-18 21:21 | P.PN ---
Subjective Progress Note Date: 06/17/21 Principal diagnosis: Urinary tract infection and question of pneumonia Patient is a 76-year-old female presenting to the hospital with weakness did have a cloudy urine concerning for symptomatic urinary tract infection, and this patient did have a chronic nonhealing wound to the left foot but no evidence of any cellulitis, patient did have a CT which is completed with evidence of bilateral effusion and did have elevated pro calcitonin. On today's evaluation that is 06/17/2021, the patient remains to be afebrile, the patient is breathing comfortably on nasal cannula oxygen, no chest pain no nausea no vomiting no abdominal pain, patient pain to the left heel is currently controlled Objective - Vital Signs Vital signs: Vital Signs Temp 97.5 F L 06/17/21 07:09 Pulse 116 H 06/17/21 07:09 Resp 18 06/17/21 07:09 BP 108/63 06/17/21 07:09 Pulse Ox 91 L 06/17/21 07:09 Intake & Output 06/16/21 06/17/21 06/17/21 18:59 06:59 18:59 Intake Total 1090 Balance 1090 Intake: IV 1090 Cefepime 1 gm In Sodium 50 Chloride 0.9% 50 ml @ 12. 5 mls/hr IVPB [facility] Rx#:[id number] Sodium Chloride 0.9% 1, 1040 000 ml @ 130 mls/hr IV . Q7H42M [facility] Rx#:[id number] Other: Voiding Method Diaper Diaper Diaper Incontinent Incontinent Incontinent - Exam GENERAL DESCRIPTION: An elderly female lying in bed in no distress RESPIRATORY SYSTEM: Unlabored breathing , decreased breath sounds at bases HEART: S1 S2 regular rate and rhythm , ABDOMEN: Soft , no tenderness EXTREMITIES: No edema feet - Labs CBC & Chem 7: 06/18/21 09:02 06/18/21 09:02 Labs: Abnormal Lab Results - Last 24 Hours (Table) 06/16/21 06/16/21 06/17/21 Range/Units 16:30 21:15 07:58 RBC 3.58 L (3.80-5.40) m/uL Hgb 9.9 L (11.4-16.0) gm/dL Hct 33.9 L (34.0-46.0) % MCHC 29.3 L (31.0-37.0) g/dL RDW 17.0 H (11.5-15.5) % Chloride (98-107) mmol/L Carbon Dioxide (22-30) mmol/L BUN (7-17) mg/dL Creatinine (0.52-1.04) mg/dL POC Glucose (mg/dL) 176 H 101 H (75-99) mg/dL Calcium (8.4-10.2) mg/dL 06/17/21 06/17/21 Range/Units 07:58 11:35 RBC (3.80-5.40) m/uL Hgb (11.4-16.0) gm/dL Hct (34.0-46.0) % MCHC (31.0-37.0) g/dL RDW (11.5-15.5) % Chloride 113 H (98-107) mmol/L Carbon Dioxide 19 L (22-30) mmol/L BUN 38 H (7-17) mg/dL Creatinine 1.13 H (0.52-1.04) mg/dL POC Glucose (mg/dL) 140 H (75-99) mg/dL Calcium 7.6 L (8.4-10.2) mg/dL Microbiology - Last 24 Hours (Table) 06/13/21 14:30 Blood Culture - Preliminary Blood No Growth after 72 hours Assessment and Plan (1) UTI (urinary tract infection) Current Visit: No Status: Acute Code(s): N39.0 - URINARY TRACT INFECTION, SITE NOT SPECIFIED SNOMED Code(s): 19545671 Plan: 1patient presented to hospital with mental status changes weakness foul- smelling urine with a history of recurrent UTI and did have a positive UA likely symptomatic urinary tract infection from enteric gram-negative pathogen. 2patient with wound to the left heel and left foot area but no cellulitis. 3continue with cefepime 1 g every 12 hours waiting for the culture to finalize 4-local wound care per wound care team 5-patient had been evaluated by pulmonary status post thoracocentesis cultures will be followed Time with Patient: Less than 30
--- NOTE | 2021-06-18 21:24 | P.PN ---
Subjective Progress Note Date: 06/18/21 Principal diagnosis: Urinary tract infection and question of pneumonia Patient is a 76-year-old female presenting to the hospital with weakness did have a cloudy urine concerning for symptomatic urinary tract infection, and this patient did have a chronic nonhealing wound to the left foot but no evidence of any cellulitis, patient did have a CT which is completed with evidence of bilateral effusion and did have elevated pro calcitonin. On today's evaluation that is 06/18/2021, the patient denies any fever or any chills, the patient is breathing comfortably on nasal cannula oxygen, the patient denies chest pain no nausea no vomiting no abdominal pain, patient denies any pain to the left heel Objective - Vital Signs Vital signs: Vital Signs Temp 97.3 F L 06/18/21 08:23 Pulse 77 06/18/21 08:23 Resp 16 06/18/21 08:23 BP 94/62 06/18/21 08:23 Pulse Ox 99 06/18/21 08:23 Intake & Output 06/17/21 06/18/21 06/18/21 18:59 06:59 18:59 Intake Total 220 240 Balance 220 240 Intake: IV 240 Sodium Chloride 0.9% 1, 240 000 ml @ 130 mls/hr IV . Q7H42M [facility] Rx#:[id number] Oral 220 Other: Voiding Method Diaper Diaper Diaper Incontinent Incontinent Incontinent # Voids 3 1 # Bowel Movements 1 - Exam GENERAL DESCRIPTION: An elderly female lying in bed in no distress RESPIRATORY SYSTEM: Unlabored breathing , decreased breath sounds at bases HEART: S1 S2 regular rate and rhythm , ABDOMEN: Soft , no tenderness EXTREMITIES: No edema feet - Labs CBC & Chem 7: 06/18/21 09:02 06/18/21 09:02 Labs: Abnormal Lab Results - Last 24 Hours (Table) 06/17/21 06/17/21 06/18/21 Range/Units 16:37 20:49 07:26 RBC (3.80-5.40) m/uL Hgb (11.4-16.0) gm/dL Hct (34.0-46.0) % MCHC (31.0-37.0) g/dL RDW (11.5-15.5) % Chloride (98-107) mmol/L Carbon Dioxide (22-30) mmol/L BUN (7-17) mg/dL Creatinine (0.52-1.04) mg/dL Glucose (74-99) mg/dL POC Glucose (mg/dL) 199 H 130 H 100 H (75-99) mg/dL Calcium (8.4-10.2) mg/dL Total Protein (6.3-8.2) g/dL 06/18/21 06/18/21 06/18/21 Range/Units 09:02 09:02 11:23 RBC 3.17 L (3.80-5.40) m/uL Hgb 8.7 L (11.4-16.0) gm/dL Hct 29.6 L (34.0-46.0) % MCHC 29.4 L (31.0-37.0) g/dL RDW 17.3 H (11.5-15.5) % Chloride 113 H (98-107) mmol/L Carbon Dioxide 21 L (22-30) mmol/L BUN 35 H (7-17) mg/dL Creatinine 1.10 H (0.52-1.04) mg/dL Glucose 104 H (74-99) mg/dL POC Glucose (mg/dL) 130 H (75-99) mg/dL Calcium 7.7 L (8.4-10.2) mg/dL Total Protein 4.5 L (6.3-8.2) g/dL Microbiology - Last 24 Hours (Table) 06/17/21 14:30 Anaerobic Culture - Preliminary Pleural Fluid 06/17/21 14:30 Body Fluid Culture - Preliminary Pleural Fluid 06/17/21 14:30 Acid Fast Bacilli Culture - Preliminary Pleural Fluid 06/17/21 14:30 Fungal Culture - Preliminary Pleural Fluid 06/13/21 14:30 Blood Culture - Preliminary Blood No Growth after 96 hours Assessment and Plan (1) UTI (urinary tract infection) Current Visit: No Status: Acute Code(s): N39.0 - URINARY TRACT INFECTION, SITE NOT SPECIFIED SNOMED Code(s): 05916819 Plan: 1patient presented to hospital with mental status changes weakness foul- smelling urine with a history of recurrent UTI and did have a positive UA likely symptomatic urinary tract infection from enteric gram-negative pathogen. 2patient with wound to the left heel and left foot area but no cellulitis. 3patient urine culture been colonized with E. coli that is a sensitive pathogen, finishing therapy with oral Ceftin 5-patient is status post thoracocentesis cultures are pending Time with Patient: Less than 30
[2021-06-18] MEDS: CEFEPIME 2 GM in SODIUM CHLORIDE 0.9% 100 ML IVPB SCH (21:37)
[2021-06-18] MEDS: ATORVASTATIN 10 MG TAB PO SCH (21:37)
[2021-06-19 07:10] LABS: Glucose,Whole Blood 97 mg/dL (75-99)
--- NOTE | 2021-06-19 08:30 | XR ---
EXAMINATION TYPE: XR chest 2V DATE OF EXAM: 06/19/2021 COMPARISON: Chest x-ray from yesterday HISTORY: Pleural effusion. TECHNIQUE: Semiupright Frontal and lateral views of the chest are obtained. FINDINGS: Persistent right greater than left bibasilar opacities. The cardiac silhouette size remai ns within normal limits. The osseous structures are demineralized. IMPRESSION: Persistent small bilateral pleural effusions and associated compressive atelectasis. No significant change from one day earlier.
[2021-06-19] MEDS ORDERED: METOPROLOL TARTRATE 25 MG TAB PO SCH (09:00)
[2021-06-19] MEDS: INSULIN ASPART (NovoLOG) 100 UNIT/ML VIAL SQ SCH ×4 (09:03→21:26)
[2021-06-19] MEDS: ASPIRIN 81 MG PO SCH (09:11)
[2021-06-19] MEDS: PANTOPRAZOLE 40 MG TABLET PO SCH (09:11)
[2021-06-19] MEDS: FUROSEMIDE 40 MG TAB PO SCH (09:11)
[2021-06-19] MEDS: CEFEPIME 2 GM in SODIUM CHLORIDE 0.9% 100 ML IVPB SCH ×2 (09:12→21:28)
[2021-06-19] MEDS: HEPARIN SODIUM,PORCINE/PF 5,000 UNIT/0.5 ML SYRINGE SQ SCH ×3 (09:12→23:43)
[2021-06-19] MEDS: COLLAGENASE 250 UNIT/GM OINTMENT 30 GM TUBE TOPICAL SCH (09:13)
[2021-06-19 09:17] LABS: Eosinophils % (A) 2.8 %; HCT 27.7 % (37.2-46.3); HGB 8.2 g/dL (12.0-15.0); Lymphocytes % (A) 30.7 %; MCH 26.9 pg (27.0-32.0); MCHC 29.6 g/dL (32.0-37.0); MCV 90.8 fL (80.0-97.0); Mean Platelet Volume 9.1 fL (9.5-12.2); Monocytes % (A) 8.3 %; Neutrophils % (A) 56.2 %; Platelet Count 231 X 10*3/uL (140-440); RBC 3.05 X 10*6/uL (4.10-5.20); RDW 18.9 % (11.5-14.5); WBC 5.05 X 10*3/uL (4.50-10.00)
[2021-06-19 09:18] LABS: Basophils # (A) 0.05 X 10*3/uL (0.00-0.10); Eosinophils # (A) 0.14 X 10*3/uL (0.04-0.35); Lymphocytes # (A) 1.55 X 10*3/uL (0.90-5.00); Monocytes # (A) 0.42 X 10*3/uL (0.20-1.00); NRBC Per 100 WBC 0 /100 WBCS (0.0-0.0); Neutrophils # (A) 2.84 X 10*3/uL (1.80-7.70)
[2021-06-19] MEDS: ACETAMINOPHEN TAB 325 MG TAB PO PRN (10:07)
[2021-06-19 11:50] LABS: Glucose,Whole Blood 155 mg/dL (75-99)
[2021-06-19 12:07] LABS: African American GFR (CKD) 51.2 (60.0-200.0); Anion Gap 13.1 mmol/L (10.00-18.00); BUN/Creat Ratio 25.5 Ratio (12.00-20.00); Blood Urea Nitrogen 30.6 mg/dL (9.0-27.0); Calcium 7.8 mg/dL (8.7-10.3); Carbon Dioxide 15.9 mmol/L (20.0-27.5); Non-African American GFR(CKD) 44.2 (60.0-200.0)
[2021-06-19 14:17] LABS: Glucose,Whole Blood 133 mg/dL (75-99)
--- NOTE | 2021-06-19 15:23 | XR ---
EXAMINATION TYPE: XR chest 1V DATE OF EXAM: 06/19/2021 COMPARISON: 03/21/2021 HISTORY: Chest pain TECHNIQUE: Single frontal view of the chest is obtained. FINDINGS: There are moderate bilateral pleural effusions. The visualized lung post are clear. There is no pneumothorax. The heart size is normal and the vasculature is not congested. The osseous structures are intact. IMPRESSION: Persistent bilateral moderate moderate pleural effusions.
[2021-06-19] MEDS ORDERED: METOPROLOL TARTRATE 50 MG TAB PO STA (15:46)
--- NOTE | 2021-06-19 16:15 | P.PN ---
Subjective Progress Note Date: 06/19/21 Principal diagnosis: Urinary tract infection and question of pneumonia Patient is a 76-year-old female presenting to the hospital with weakness did have a cloudy urine concerning for symptomatic urinary tract infection, and this patient did have a chronic nonhealing wound to the left foot but no evidence of any cellulitis, patient did have a CT which is completed with evidence of bilateral effusion and did have elevated pro calcitonin. On today's evaluation that is 06/19/2021, the patient remains to be afebrile, the patient is breathing comfortably on nasal cannula oxygen, the patient sleepy lethargic and did not provide any history no vomiting diarrhea or any other changes reported by the nursing staff Objective - Vital Signs Vital signs: Vital Signs Temp 97.3 F L 06/19/21 13:39 Pulse 107 H 06/19/21 13:39 Resp 14 06/19/21 13:39 BP 107/58 06/19/21 13:39 Pulse Ox 97 06/19/21 13:39 Intake & Output 06/18/21 06/19/21 06/19/21 18:59 06:59 18:59 Weight 45.359 kg Other: Voiding Method Diaper Diaper Diaper Incontinent Incontinent Incontinent # Voids 1 1 # Bowel Movements 1 - Exam GENERAL DESCRIPTION: An elderly female lying in bed in no distress RESPIRATORY SYSTEM: Unlabored breathing , decreased breath sounds at bases HEART: S1 S2 regular rate and rhythm , ABDOMEN: Soft , no tenderness EXTREMITIES: No edema feet - Labs CBC & Chem 7: 06/19/21 05:46 06/19/21 05:46 Labs: Abnormal Lab Results - Last 24 Hours (Table) 06/18/21 06/18/21 06/19/21 Range/Units 16:43 20:56 05:46 RBC 3.05 L (4.10-5.20) X 10*6/uL Hgb 8.2 L (12.0-15.0) g/dL Hct 27.7 L (37.2-46.3) % MCH 26.9 L (27.0-32.0) pg MCHC 29.6 L (32.0-37.0) g/dL RDW 18.9 H (11.5-14.5) % MPV 9.1 L (9.5-12.2) fL Immature Gran # 0.05 H (0.00-0.04) X 10*3/uL Chloride (96-109) mmol/L Carbon Dioxide (20.0-27.5) mmol/L BUN (9.0-27.0) mg/dL Est GFR (CKD-EPI)AfAm (60.0-200.0) Est GFR (CKD-EPI)NonAf (60.0-200.0) BUN/Creatinine Ratio (12.00-20.00) Ratio POC Glucose (mg/dL) 171 H 109 H (75-99) mg/dL Calcium (8.7-10.3) mg/dL 06/19/21 06/19/21 06/19/21 Range/Units 05:46 11:46 14:14 RBC (4.10-5.20) X 10*6/uL Hgb (12.0-15.0) g/dL Hct (37.2-46.3) % MCH (27.0-32.0) pg MCHC (32.0-37.0) g/dL RDW (11.5-14.5) % MPV (9.5-12.2) fL Immature Gran # (0.00-0.04) X 10*3/uL Chloride 112 H (96-109) mmol/L Carbon Dioxide 15.9 L (20.0-27.5) mmol/L BUN 30.6 H (9.0-27.0) mg/dL Est GFR (CKD-EPI)AfAm 51.2 L (60.0-200.0) Est GFR (CKD-EPI)NonAf 44.2 L (60.0-200.0) BUN/Creatinine Ratio 25.50 H (12.00-20.00) Ratio POC Glucose (mg/dL) 155 H 133 H (75-99) mg/dL Calcium 7.8 L (8.7-10.3) mg/dL Microbiology - Last 24 Hours (Table) 06/17/21 14:30 Gram Stain - Preliminary Pleural Fluid Body Fluid Culture - Preliminary 06/17/21 14:30 Acid Fast Bacilli Smear - Final Pleural Fluid Acid Fast Bacilli Culture - Preliminary 06/13/21 14:30 Blood Culture - Preliminary Blood No Growth after 120 hours Assessment and Plan (1) UTI (urinary tract infection) Current Visit: No Status: Acute Code(s): N39.0 - URINARY TRACT INFECTION, SITE NOT SPECIFIED SNOMED Code(s): 64852098 Plan: 1patient presented to hospital with mental status changes weakness foul- smelling urine with a history of recurrent UTI and did have a positive UA likely symptomatic urinary tract infection from enteric gram-negative pathogen. 2patient with wound to the left heel and left foot area but no cellulitis. 3patient urine culture been colonized with E. coli that is a sensitive pathogen, patient will be able to finish therapy with oral Ceftin 5-patient is status post thoracocentesis cultures are so far negative repeat chest x-ray this morning shows persistent moderate bilateral effusion, pulmonary is following Time with Patient: Less than 30
--- NOTE | 2021-06-19 16:25 | P.PN ---
Subjective Progress Note Date: 06/19/21 76-year-old female admitted last week for UTI with sepsis, also developed pleural effusion which required a thoracentesis with 1.2 L of fluid removed. This was translated most likely secondary to congestive heart failure. Although she is hard of hearing and mostly speaks Green[place]ic, which appeared to be com fortable this morning and was ready to go home. later in the afternoon however she started complaining of chest pain. EKG showed A. fib with RVR. Her 100 mg Toprol dose was never restarted during this admission and she was most likely going through beta milli withdrawal. EKG showed no ST elevation or depression, chest x-ray shows persistence of moderate pleural effusion from yesterday but no acute changes. Her Toprol dose was reinstated, discharge order was canceled, and patient will remain additional night Objective - Vital Signs Vital signs: Vital Signs Temp 97.3 F L 06/19/21 13:39 Pulse 107 H 06/19/21 13:39 Resp 14 06/19/21 13:39 BP 107/58 06/19/21 13:39 Pulse Ox 97 06/19/21 13:39 Intake & Output 06/18/21 06/19/21 06/19/21 18:59 06:59 18:59 Weight 45.359 kg Other: Voiding Method Diaper Diaper Diaper Incontinent Incontinent Incontinent # Voids 1 1 # Bowel Movements 1 - Constitutional General appearance: Present: cooperative, disheveled, no acute distress - EENT Eyes: Present: EOMI, PERRLA - Neck Neck: Present: normal ROM. Absent: rigidity - Respiratory Respiratory: bilateral: diminished, negative: rhonchi, wheezing - Cardiovascular Heart rate: 120 Rhythm: irregularly irregular Abnormal Heart Sounds: Absent: systolic murmur, diastolic murmur - Gastrointestinal General gastrointestinal: Present: normal bowel sounds. Absent: tenderness - Integumentary Integumentary: Absent: jaundiced, pale - Neurologic Neurologic: Present: CNII-XII intact - Psychiatric Psychiatric: Present: appropriate affect - Labs CBC & Chem 7: 06/19/21 05:46 06/19/21 05:46 Labs: Abnormal Lab Results - Last 24 Hours (Table) 06/18/21 06/18/21 06/19/21 Range/Units 16:43 20:56 05:46 RBC 3.05 L (4.10-5.20) X 10*6/uL Hgb 8.2 L (12.0-15.0) g/dL Hct 27.7 L (37.2-46.3) % MCH 26.9 L (27.0-32.0) pg MCHC 29.6 L (32.0-37.0) g/dL RDW 18.9 H (11.5-14.5) % MPV 9.1 L (9.5-12.2) fL Immature Gran # 0.05 H (0.00-0.04) X 10*3/uL Chloride (96-109) mmol/L Carbon Dioxide (20.0-27.5) mmol/L BUN (9.0-27.0) mg/dL Est GFR (CKD-EPI)AfAm (60.0-200.0) Est GFR (CKD-EPI)NonAf (60.0-200.0) BUN/Creatinine Ratio (12.00-20.00) Ratio POC Glucose (mg/dL) 171 H 109 H (75-99) mg/dL Calcium (8.7-10.3) mg/dL 06/19/21 06/19/21 06/19/21 Range/Units 05:46 11:46 14:14 RBC (4.10-5.20) X 10*6/uL Hgb (12.0-15.0) g/dL Hct (37.2-46.3) % MCH (27.0-32.0) pg MCHC (32.0-37.0) g/dL RDW (11.5-14.5) % MPV (9.5-12.2) fL Immature Gran # (0.00-0.04) X 10*3/uL Chloride 112 H (96-109) mmol/L Carbon Dioxide 15.9 L (20.0-27.5) mmol/L BUN 30.6 H (9.0-27.0) mg/dL Est GFR (CKD-EPI)AfAm 51.2 L (60.0-200.0) Est GFR (CKD-EPI)NonAf 44.2 L (60.0-200.0) BUN/Creatinine Ratio 25.50 H (12.00-20.00) Ratio POC Glucose (mg/dL) 155 H 133 H (75-99) mg/dL Calcium 7.8 L (8.7-10.3) mg/dL Microbiology - Last 24 Hours (Table) 06/17/21 14:30 Gram Stain - Preliminary Pleural Fluid Body Fluid Culture - Preliminary 06/17/21 14:30 Acid Fast Bacilli Smear - Final Pleural Fluid Acid Fast Bacilli Culture - Preliminary 06/13/21 14:30 Blood Culture - Preliminary Blood No Growth after 120 hours Assessment and Plan Plan: Sepsis with E. coli UTI -Improving - Continue cefepime, may transition to oral Keflex - ID has been consulted and is following Pleural effusion - Status post Diagnostic and therapeutic thoracentesis, 1200 cc out - pleural fluid is transudate most likely secondary to congestive heart failure - Echocardiogram shows ejection fraction of 40-45% - Repeat chest x-ray today shows no change in pleural effusion New Onset A. fib with RVR -This is most likely secondary to beta milli withdrawal -Patient is on 100 mg Toprol at home which she has not received this entire hospitalization -Received 50 mg short acting metoprolol now, we'll restart Toprol 100 mg tomorrow morning -We'll hold off on starting anticoagulation for now Acute hypoxic respiratory failure - Secondary to #2 - On supplemental oxygen - Improving Acute kidney injury - Secondary to sepsis, dehydration due to poor oral intake - Monitoring creatinine, trend is improving 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 - Consult wound care Type 2 diabetes mellitus -Sliding-scale) continue glucose monitoring Hypokalemia - Improved with replacement Toxic metabolic encephalopathy in the setting of sepsis -Improving - Neurology following - CT of the head negative for acute intracranial abnormality Chronic debility and deconditioning DVT prophylaxis with subcutaneous heparin Discussed with patient and RN Likely DC in next 24-48 hours. Time with Patient: Greater than 30
[2021-06-19] MEDS: FUROSEMIDE 10 MG/ML 2 ML VIAL IV SCH (16:39)
[2021-06-19 16:45] LABS: Glucose,Whole Blood 156 mg/dL (75-99)
[2021-06-19 21:24] LABS: Glucose,Whole Blood 122 mg/dL (75-99)
[2021-06-19] MEDS: ATORVASTATIN 10 MG TAB PO SCH (21:29)
[2021-06-20 06:58] LABS: Glucose,Whole Blood 131 mg/dL (75-99)
[2021-06-20] MEDS: INSULIN ASPART (NovoLOG) 100 UNIT/ML VIAL SQ SCH ×4 (07:38→20:20)
[2021-06-20] MEDS: HEPARIN SODIUM,PORCINE/PF 5,000 UNIT/0.5 ML SYRINGE SQ SCH ×3 (07:38→23:22)
[2021-06-20] MEDS: CEFEPIME 2 GM in SODIUM CHLORIDE 0.9% 100 ML IVPB SCH (07:38)
[2021-06-20] MEDS: COLLAGENASE 250 UNIT/GM OINTMENT 30 GM TUBE TOPICAL SCH (07:39)
[2021-06-20] MEDS: ASPIRIN 81 MG PO SCH (07:39)
[2021-06-20] MEDS: FUROSEMIDE 10 MG/ML 2 ML VIAL IV SCH (07:39)
[2021-06-20] MEDS: PANTOPRAZOLE 40 MG TABLET PO SCH (07:39)
[2021-06-20] MEDS: METOPROLOL SUCCINATE (ER) 100 MG TAB.ER.24H PO SCH ×2 (07:39→11:15)
[2021-06-20] MEDS ORDERED: METOPROLOL TARTRATE 50 MG TAB PO STA (10:57)
[2021-06-20 11:30] LABS: Basophils # (A) 0.04 X 10*3/uL (0.00-0.10); Basophils % (A) 0.7 %; Eosinophils % (A) 1.6 %; HCT 26.6 % (37.2-46.3); Immature Grans, Automated 0.8 %; Lymphocytes # (A) 1.38 X 10*3/uL (0.90-5.00); Lymphocytes % (A) 22.7 %; MCH 26.7 pg (27.0-32.0); MCHC 30.1 g/dL (32.0-37.0); MCV 88.7 fL (80.0-97.0); Mean Platelet Volume 9.3 fL (9.5-12.2); Monocytes # (A) 0.44 X 10*3/uL (0.20-1.00); Monocytes % (A) 7.2 %; NRBC Per 100 WBC 0 /100 WBCS (0.0-0.0); Neutrophils # (A) 4.07 X 10*3/uL (1.80-7.70); Platelet Count 220 X 10*3/uL (140-440); RDW 18.5 % (11.5-14.5); WBC 6.08 X 10*3/uL (4.50-10.00)
[2021-06-20 11:48] LABS: Glucose,Whole Blood 173 mg/dL (75-99)
[2021-06-20 13:08] LABS: Magnesium 1.5 mg/dL (1.5-2.4)
[2021-06-20 13:12] LABS: ALT 7 U/L (8-44); AST 15 U/L (13-35); African American GFR (CKD) 51.2 (60.0-200.0); Albumin 1.6 g/dL (3.8-4.9); Albumin/Globulin Ratio 0.63 (1.60-3.17); Alkaline Phosphatase 89 U/L (41-126); Blood Urea Nitrogen 31.2 mg/dL (9.0-27.0); Carbon Dioxide 21.7 mmol/L (20.0-27.5); Chloride 112 mmol/L (96-109); Globulin 2.5 g/dL (1.6-3.3); Glucose 131 mg/dL (70-110); Non-African American GFR(CKD) 44.2 (60.0-200.0); Potassium 4.1 mmol/L (3.5-5.5); Sodium 142 mmol/L (135-145); Total Bilirubin <0.15 mg/dL (0.30-1.20); Total Protein 4.1 g/dL (6.2-8.2)
--- NOTE | 2021-06-20 15:34 | P.PN ---
Subjective Progress Note Date: 06/20/21 Patient is awake and alert today, she appears to be comfortable. She had difficulty taking her pills today which delayed her receiving Toprol this morning. Heart rate increased to the 140s. Toprol changed to metoprolol so it can be crushed. HR dropped to the 90's and converted to sinus rhythm. Overall no other events Objective - Vital Signs Vital signs: Vital Signs Temp 97.7 F 06/20/21 08:00 Pulse 92 06/20/21 08:00 Resp 16 06/20/21 08:00 BP 114/70 06/20/21 08:00 Pulse Ox 96 06/20/21 08:00 Intake & Output 06/19/21 06/20/21 06/20/21 18:59 06:59 18:59 Intake Total 100 Balance 100 Intake: Oral 100 Other: Voiding Method Diaper Diaper Diaper Incontinent Incontinent Incontinent # Voids 2 6 1 # Bowel Movements 1 - Constitutional General appearance: Present: average body habitus, cooperative, no acute distress - EENT Eyes: Present: EOMI, PERRLA - Neck Neck: Present: normal ROM - Respiratory Respiratory: bilateral: diminished, negative: wheezing - Cardiovascular Heart rate: 140 Rhythm: irregularly irregular Heart sounds: normal: S1, S2 - Gastrointestinal General gastrointestinal: Present: normal bowel sounds - Integumentary Integumentary: Present: normal - Neurologic Neurologic: Present: CNII-XII intact - Musculoskeletal Musculoskeletal: Present: strength equal bilaterally - Psychiatric Psychiatric: Present: appropriate affect - Labs CBC & Chem 7: 06/20/21 07:26 06/20/21 07:26 Labs: Abnormal Lab Results - Last 24 Hours (Table) 06/19/21 06/19/21 06/19/21 Range/Units 05:46 16:43 21:22 RBC (4.10-5.20) X 10*6/uL Hgb (12.0-15.0) g/dL Hct (37.2-46.3) % MCH (27.0-32.0) pg MCHC (32.0-37.0) g/dL RDW (11.5-14.5) % MPV (9.5-12.2) fL Immature Gran # (0.00-0.04) X 10*3/uL Chloride (96-109) mmol/L Anion Gap (10.00-18.00) mmol/L BUN (9.0-27.0) mg/dL Est GFR (CKD-EPI)AfAm (60.0-200.0) Est GFR (CKD-EPI)NonAf (60.0-200.0) BUN/Creatinine Ratio (12.00-20.00) Ratio Glucose (70-110) mg/dL POC Glucose (mg/dL) 156 H 122 H (75-99) mg/dL Calcium (8.7-10.3) mg/dL Total Bilirubin (0.30-1.20) mg/dL ALT (8-44) U/L Total Protein (6.2-8.2) g/dL Albumin (3.8-4.9) g/dL Albumin/Globulin Ratio (1.60-3.17) g/dL Procalcitonin 13.50 H (0.02-0.09) ng/mL 06/20/21 06/20/21 06/20/21 Range/Units 06:56 07:26 07:26 RBC 3.00 L (4.10-5.20) X 10*6/uL Hgb 8.0 L (12.0-15.0) g/dL Hct 26.6 L (37.2-46.3) % MCH 26.7 L (27.0-32.0) pg MCHC 30.1 L (32.0-37.0) g/dL RDW 18.5 H (11.5-14.5) % MPV 9.3 L (9.5-12.2) fL Immature Gran # 0.05 H (0.00-0.04) X 10*3/uL Chloride 112 H (96-109) mmol/L Anion Gap 7.90 L (10.00-18.00) mmol/L BUN 31.2 H (9.0-27.0) mg/dL Est GFR (CKD-EPI)AfAm 51.2 L (60.0-200.0) Est GFR (CKD-EPI)NonAf 44.2 L (60.0-200.0) BUN/Creatinine Ratio 26.00 H (12.00-20.00) Ratio Glucose 131 H (70-110) mg/dL POC Glucose (mg/dL) 131 H (75-99) mg/dL Calcium 8.0 L (8.7-10.3) mg/dL Total Bilirubin <0.15 L (0.30-1.20) mg/dL ALT 7 L (8-44) U/L Total Protein 4.1 L (6.2-8.2) g/dL Albumin 1.6 L (3.8-4.9) g/dL Albumin/Globulin Ratio 0.63 L (1.60-3.17) g/dL Procalcitonin (0.02-0.09) ng/mL 06/20/21 Range/Units 11:46 RBC (4.10-5.20) X 10*6/uL Hgb (12.0-15.0) g/dL Hct (37.2-46.3) % MCH (27.0-32.0) pg MCHC (32.0-37.0) g/dL RDW (11.5-14.5) % MPV (9.5-12.2) fL Immature Gran # (0.00-0.04) X 10*3/uL Chloride (96-109) mmol/L Anion Gap (10.00-18.00) mmol/L BUN (9.0-27.0) mg/dL Est GFR (CKD-EPI)AfAm (60.0-200.0) Est GFR (CKD-EPI)NonAf (60.0-200.0) BUN/Creatinine Ratio (12.00-20.00) Ratio Glucose (70-110) mg/dL POC Glucose (mg/dL) 173 H (75-99) mg/dL Calcium (8.7-10.3) mg/dL Total Bilirubin (0.30-1.20) mg/dL ALT (8-44) U/L Total Protein (6.2-8.2) g/dL Albumin (3.8-4.9) g/dL Albumin/Globulin Ratio (1.60-3.17) g/dL Procalcitonin (0.02-0.09) ng/mL Microbiology - Last 24 Hours (Table) 06/17/21 14:30 Anaerobic Culture - Preliminary Pleural Fluid 06/17/21 14:30 Gram Stain - Preliminary Pleural Fluid Body Fluid Culture - Preliminary 06/13/21 14:30 Blood Culture - Final Blood No Growth after 144 hours Assessment and Plan Plan: Sepsis with E. coli UTI -Improving - Continue cefepime for one more day - ID has been consulted and is following Pleural effusion - Status post Diagnostic and therapeutic thoracentesis, 1200 cc out - pleural fluid is transudate most likely secondary to congestive heart failure - Echocardiogram shows ejection fraction of 40-45% New Onset A. fib with RVR -HR in the 140's afib this am, unable to take pills. Toprol changed to Lopressor to be crushed with food. -This is most likely secondary to beta milli withdrawal -We'll hold off on starting anticoagulation for now Acute hypoxic respiratory failure - Secondary to #2 - Improving Acute kidney injury -resolving - Secondary to sepsis, dehydration due to poor oral intake - Monitoring creatinine, trend is improving 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 - Consult wound care Type 2 diabetes mellitus -Sliding-scale) continue glucose monitoring Hypokalemia - Improved with replacement Toxic metabolic encephalopathy in the setting of sepsis -Improving - Neurology following - CT of the head negative for acute intracranial abnormality Chronic debility and deconditioning DVT prophylaxis with subcutaneous heparin Likely DC in next 24-48 hours. Time with Patient: Greater than 30
[2021-06-20 16:30] LABS: Glucose,Whole Blood 113 mg/dL (75-99)
--- NOTE | 2021-06-20 17:49 | P.PN ---
Subjective Progress Note Date: 06/20/21 Principal diagnosis: Urinary tract infection and question of pneumonia Patient is a 76-year-old female presenting to the hospital with weakness did have a cloudy urine concerning for symptomatic urinary tract infection, and this patient did have a chronic nonhealing wound to the left foot but no evidence of any cellulitis, patient did have a CT which is completed with evidence of bilateral effusion and did have elevated pro calcitonin. On today's evaluation that is 06/20/2021, the patient is afebrile, the patient is breathing comfortably on nasal cannula oxygen, the patient is slightly lethargic though awake but not responding to the family and did not answer any question and no vomiting diarrhea or any other changes reported by the nursing staff Objective - Vital Signs Vital signs: Vital Signs Temp 98.0 F 06/20/21 14:00 Pulse 100 06/20/21 14:00 Resp 16 06/20/21 14:00 BP 120/78 06/20/21 14:00 Pulse Ox 99 06/20/21 14:00 Intake & Output 06/19/21 06/20/21 06/20/21 18:59 06:59 18:59 Intake Total 100 Balance 100 Intake: Oral 100 Other: Voiding Method Diaper Diaper Diaper Incontinent Incontinent Incontinent # Voids 2 6 1 # Bowel Movements 1 - Exam GENERAL DESCRIPTION: An elderly female lying in bed in no distress RESPIRATORY SYSTEM: Unlabored breathing , decreased breath sounds at bases HEART: S1 S2 regular rate and rhythm , ABDOMEN: Soft , no tenderness EXTREMITIES: No edema feet - Labs CBC & Chem 7: 06/20/21 07:26 06/20/21 07:26 Labs: Abnormal Lab Results - Last 24 Hours (Table) 06/19/21 06/19/21 06/19/21 Range/Units 05:46 16:43 21:22 RBC (4.10-5.20) X 10*6/uL Hgb (12.0-15.0) g/dL Hct (37.2-46.3) % MCH (27.0-32.0) pg MCHC (32.0-37.0) g/dL RDW (11.5-14.5) % MPV (9.5-12.2) fL Immature Gran # (0.00-0.04) X 10*3/uL Chloride (96-109) mmol/L Anion Gap (10.00-18.00) mmol/L BUN (9.0-27.0) mg/dL Est GFR (CKD-EPI)AfAm (60.0-200.0) Est GFR (CKD-EPI)NonAf (60.0-200.0) BUN/Creatinine Ratio (12.00-20.00) Ratio Glucose (70-110) mg/dL POC Glucose (mg/dL) 156 H 122 H (75-99) mg/dL Calcium (8.7-10.3) mg/dL Total Bilirubin (0.30-1.20) mg/dL ALT (8-44) U/L Total Protein (6.2-8.2) g/dL Albumin (3.8-4.9) g/dL Albumin/Globulin Ratio (1.60-3.17) g/dL Procalcitonin 13.50 H (0.02-0.09) ng/mL 06/20/21 06/20/21 06/20/21 Range/Units 06:56 07:26 07:26 RBC 3.00 L (4.10-5.20) X 10*6/uL Hgb 8.0 L (12.0-15.0) g/dL Hct 26.6 L (37.2-46.3) % MCH 26.7 L (27.0-32.0) pg MCHC 30.1 L (32.0-37.0) g/dL RDW 18.5 H (11.5-14.5) % MPV 9.3 L (9.5-12.2) fL Immature Gran # 0.05 H (0.00-0.04) X 10*3/uL Chloride 112 H (96-109) mmol/L Anion Gap 7.90 L (10.00-18.00) mmol/L BUN 31.2 H (9.0-27.0) mg/dL Est GFR (CKD-EPI)AfAm 51.2 L (60.0-200.0) Est GFR (CKD-EPI)NonAf 44.2 L (60.0-200.0) BUN/Creatinine Ratio 26.00 H (12.00-20.00) Ratio Glucose 131 H (70-110) mg/dL POC Glucose (mg/dL) 131 H (75-99) mg/dL Calcium 8.0 L (8.7-10.3) mg/dL Total Bilirubin <0.15 L (0.30-1.20) mg/dL ALT 7 L (8-44) U/L Total Protein 4.1 L (6.2-8.2) g/dL Albumin 1.6 L (3.8-4.9) g/dL Albumin/Globulin Ratio 0.63 L (1.60-3.17) g/dL Procalcitonin (0.02-0.09) ng/mL 06/20/21 Range/Units 11:46 RBC (4.10-5.20) X 10*6/uL Hgb (12.0-15.0) g/dL Hct (37.2-46.3) % MCH (27.0-32.0) pg MCHC (32.0-37.0) g/dL RDW (11.5-14.5) % MPV (9.5-12.2) fL Immature Gran # (0.00-0.04) X 10*3/uL Chloride (96-109) mmol/L Anion Gap (10.00-18.00) mmol/L BUN (9.0-27.0) mg/dL Est GFR (CKD-EPI)AfAm (60.0-200.0) Est GFR (CKD-EPI)NonAf (60.0-200.0) BUN/Creatinine Ratio (12.00-20.00) Ratio Glucose (70-110) mg/dL POC Glucose (mg/dL) 173 H (75-99) mg/dL Calcium (8.7-10.3) mg/dL Total Bilirubin (0.30-1.20) mg/dL ALT (8-44) U/L Total Protein (6.2-8.2) g/dL Albumin (3.8-4.9) g/dL Albumin/Globulin Ratio (1.60-3.17) g/dL Procalcitonin (0.02-0.09) ng/mL Microbiology - Last 24 Hours (Table) 06/17/21 14:30 Anaerobic Culture - Preliminary Pleural Fluid 06/17/21 14:30 Gram Stain - Preliminary Pleural Fluid Body Fluid Culture - Preliminary 06/13/21 14:30 Blood Culture - Final Blood No Growth after 144 hours Assessment and Plan (1) UTI (urinary tract infection) Current Visit: No Status: Acute Code(s): N39.0 - URINARY TRACT INFECTION, SITE NOT SPECIFIED SNOMED Code(s): 90687839 Plan: 1patient presented to hospital with mental status changes weakness foul- smelling urine with a history of recurrent UTI and did have a positive UA likely symptomatic urinary tract infection from enteric gram-negative pathogen. 2patient with wound to the left heel and left foot area but no cellulitis. 3patient urine culture been finalized as E. coli that is a sensitive pathogen, patient will be able to finish therapy with oral Ceftin 4-patient is status post thoracocentesis cultures are so far negative repeat chest x-ray did shows persistent moderate bilateral effusion, 5- mental status changes decreased responsiveness MRI has been ordered family the bedside questions were answered Time with Patient: Less than 30
[2021-06-20] MEDS: ATORVASTATIN 10 MG TAB PO SCH ×3 (20:14→21:17)
[2021-06-20] MEDS: METOPROLOL TARTRATE 50 MG TAB PO SCH ×2 (20:14→20:19)
[2021-06-20 20:23] LABS: Glucose,Whole Blood 122 mg/dL (75-99)
--- NOTE | 2021-06-20 23:36 | CT ---
EXAMINATION TYPE: CT brain wo con DATE OF EXAM: 06/20/2021 COMPARISON: 06/15/2021 HISTORY: AMS CT DLP: 1080.4 mGycm Automated exposure control for dose reduction was used. There is cerebral cortical atrophy. There is patchy hypodensity in the periventricular white matter. There is evidence of old 1.5 cm lacunar infarct in the right internal capsule. The calvarium is intac t. There is mucosal thickening in the ethmoid air cells. There is mucous retention cyst in the senior software manager ior right maxillary sinus. IMPRESSION: Cerebral atrophy and chronic small vessel ischemia. 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 No significan t change compared to recent exam. Ethmoid and maxillary sinusitis.
[2021-06-21 06:53] LABS: Glucose,Whole Blood 134 mg/dL (75-99)
[2021-06-21] MEDS ORDERED: SODIUM CHLORIDE 0.9% 1,000 ML IV ONE (07:40)
[2021-06-21] MEDS ORDERED: DILTIAZEM DRIP BOLUS FROM BAG 1 MG SOLN IV ONE (07:42)
[2021-06-21] MEDS: INSULIN ASPART (NovoLOG) 100 UNIT/ML VIAL SQ SCH ×4 (07:46→20:53)
[2021-06-21 07:50] LABS: ABG Base Excess -2.8 mmol/L; ABG HCO3 21 mmol/L (21-25); ABG Oxygen Saturation 95.6 % (94-97); ABG PCO2 30 mmHg (35-45); ABG PH 7.45 (7.35-7.45); ABG PO2 68 mmHg (83-108); ABG TCO2 22 mmol/L (19-24); Allen Test Performed? Yes
[2021-06-21] MEDS ORDERED: ASPIRIN 300 MG SUPP RECTAL STA (07:54)
[2021-06-21] MEDS ORDERED: DILTIAZEM 125 MG in SODIUM CHLORIDE 0.9% 100 ML IV SCH (08:00)
[2021-06-21 08:06] LABS: ALT <6 U/L (4-34); African American GFR (CKD) 48 (>60 ml/min/1.73 sqM); Albumin 1.7 g/dL (3.5-5.0); Albumin/Globulin Ratio 0.6; Anion Gap 7 mmol/L; Anisocytosis Slight; Blood Urea Nitrogen 33 mg/dL (7-17); Carbon Dioxide 16 mmol/L (22-30); Chloride 114 mmol/L (98-107); Globulin 2.9 g/dL; Glucose 136 mg/dL (74-99); HCT 27.3 % (34.0-46.0); HGB 8.2 gm/dL (11.4-16.0); Hypochromasia Marked; MCH 27.7 pg (25.0-35.0); MCHC 30.1 g/dL (31.0-37.0); MCV 91.8 fL (80.0-100.0); Mean Platelet Volume 7.6; Non-African American GFR(CKD) 41 (>60 ml/min/1.73 sqM); Platelet Count 277 k/uL (150-450); RBC 2.97 m/uL (3.80-5.40); RDW 17.7 % (11.5-15.5); Sodium 137 mmol/L (137-145); Total Bilirubin 0.8 mg/dL (0.2-1.3); Total Protein 4.6 g/dL (6.3-8.2); WBC 6.9 k/uL (3.8-10.6)
[2021-06-21 08:09] LABS: Potassium 3.9 mmol/L (3.5-5.1)
[2021-06-21 08:10] LABS: AST 18 U/L (14-36); Alkaline Phosphatase 86 U/L (38-126); Magnesium 1.5 mg/dL (1.6-2.3); Phosphorus 2.6 mg/dL (2.5-4.5)
[2021-06-21] MEDS ORDERED: HEPARIN SODIUM 1,000 UN/ML (10ML VL) IV PRN (08:24)
--- NOTE | 2021-06-21 08:27 | P.PN ---
Subjective Progress Note Date: 06/21/21 Principal diagnosis: confusion Patient is a 76-year-old female with a history of mild dementia, hypertension, diabetes mellitus type 2, and dyslipidemia who was brought in by family for foul-smelling urine, weakness, and confusion. In the ER patient underwent an extensive evaluation. In the emergency department she was found to be hypotensive. Initial chest x-ray was unremarkable. Laboratory analysis demonstrated BUN of 71, creatinine of 1.2, and urinalysis was consistent with UTI. She was admitted and was started on Rocephin and IV fluids. She was seen by wound care for her chronic stage III left heel ulcer. She was seen by infectious disease as transitioned to cefepime. She was evaluated by neurology who felt that she likely had encephalopathy secondary to underlying metabolic conditions and episode of hypoglycemia. CT of the head showed no acute process at that time neurology and family felt that MRI was not warranted. Pulmonary was consulted due to bilatearl pleural effusions. She underwent thoracentesis on 06/17/21 with removal of 1.2L of fluid. She was strated on IV lasix for transudate effusion likely related to CHF vs malnutrition. On 06/19 she went into A fib wtih RVR,, felt to be secondary to BB withdrawal. She was started on toprol. On 06/20 she had decreased responsiveness and MRI brain was ordered, this is not available on the weekend and therefore stat head CT was obtained that showed Cerebral atrophy, old internal capsule infarct and ethmoid/maxillary sinusitis. On the morning of 06/21/21 I was called to emergently evaluate the patient due to decreased responsiveness and tachycardia. Patient is unable to tolerated PO medications. Arrived at bedside and patient is not verbalazing or following commands. Per nursing she has been this way for at least the last 13 hours, night physician was notified. No family present at bedside. Tele reviewed and patient with HR 129-140. Appeared overnight to have both sinus tach and A fib with RVR. General: ill appearing, no distress, appears at stated age Derm: warm, dry Head: atraumatic, normocephalic, symmetric Eyes: EOMI, no lid lag, anicteric sclera Mouth: no lip lesion, mucus membranes moist Cardiovascular: S1S2 irreg, no murmur, positive posterior tibial pulse bilateral, Lungs: Decreased bs bilateral, no rhonchi, no rales , no accessory muscle use Abdominal: soft, nontender to palpation, no guarding, no appreciable organomegaly Ext: + gross muscle atrophy, Anasarca in dependent portion of arms and legs, no tremors, no fiassiculations Neuro: Pupils pinpoint, EOMI, will not open mouth, + grimiving to pain in a ll 4 extremities, + flexion contractures in b/l LE Psych: Eyes open, not follwing commands, flat affect Assessment/plan: P. A fib with RVR - Transfer to cardiac unit, start heparin gtt - echo on tuesday - check stat lytes, magnesium - IV fluids as not eating of drinking - patient unable to take PO medications at this time - last echo with EF 55-60% - consult cardio Acute encephalopathy - CT head without acute process - stat lytes, ABG without significant hypoxia or hypercapnea - treat tachycardia - supportive acare Hypomagnesemia - replace and recheck Bilateral pleural effusions s/p thoracentsis - right effusion still present but better - likely due to PCM vs CHF - Hypoxia respoved - pulm recs - continue to mornitor 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 -Present on admission - wound care recs Type II DM -Insulin sliding scale and blood glucose monitoring hypertension, controlled -Hold antihypertensive medication, unable to take oral medications Functional quadraplegia with flexion contractures - supportive care Severe Protein calorie malnutrition - encourage oral intake when more wake - palliative care consult Hypokalemia, resolved Acute hypoxic Respiratory failure, resolved Normocytic anemia, at baseline Sepsis with E. coli pyelonephritis, resolved, abx completed Acute kidney injury, in setting of poor oral intake with dehydration and hypotension- improved A total of 35 minutes of critical care time was spent with the complex patient for HR control and altered mentation Objective - Vital Signs Vital signs: Vital Signs Temp 98.4 F 06/21/21 01:09 Pulse 114 H 06/21/21 01:09 Resp 14 06/21/21 01:09 BP 111/65 06/21/21 01:09 Pulse Ox 98 06/21/21 01:09 Intake & Output 06/20/21 06/21/21 06/21/21 18:59 06:59 18:59 Other: Voiding Method Diaper Diaper Incontinent Incontinent # Voids 1 1 - Labs CBC & Chem 7: 06/21/21 07:39 06/21/21 07:39 Labs: Abnormal Lab Results - Last 24 Hours (Table) 06/20/21 06/20/21 06/20/21 Range/Units 07:26 07:26 11:46 RBC 3.00 L (4.10-5.20) X 10*6/uL Hgb 8.0 L (12.0-15.0) g/dL Hct 26.6 L (37.2-46.3) % MCH 26.7 L (27.0-32.0) pg MCHC 30.1 L (32.0-37.0) g/dL RDW 18.5 H (11.5-14.5) % MPV 9.3 L (9.5-12.2) fL Immature Gran # 0.05 H (0.00-0.04) X 10*3/uL ABG pCO2 (35-45) mmHg ABG pO2 (83-108) mmHg Chloride 112 H (96-109) mmol/L Carbon Dioxide (22-30) mmol/L Anion Gap 7.90 L (10.00-18.00) mmol/L BUN 31.2 H (9.0-27.0) mg/dL Creatinine (0.52-1.04) mg/dL Est GFR (CKD-EPI)AfAm 51.2 L (60.0-200.0) Est GFR (CKD-EPI)NonAf 44.2 L (60.0-200.0) BUN/Creatinine Ratio 26.00 H (12.00-20.00) Ratio Glucose 131 H (70-110) mg/dL POC Glucose (mg/dL) 173 H (75-99) mg/dL Calcium 8.0 L (8.7-10.3) mg/dL Magnesium (1.6-2.3) mg/dL Total Bilirubin <0.15 L (0.30-1.20) mg/dL ALT 7 L (8-44) U/L Total Protein 4.1 L (6.2-8.2) g/dL Albumin 1.6 L (3.8-4.9) g/dL Albumin/Globulin Ratio 0.63 L (1.60-3.17) g/dL 06/20/21 06/20/21 06/21/21 Range/Units 16:28 20:20 06:51 RBC (4.10-5.20) X 10*6/uL Hgb (12.0-15.0) g/dL Hct (37.2-46.3) % MCH (27.0-32.0) pg MCHC (32.0-37.0) g/dL RDW (11.5-14.5) % MPV (9.5-12.2) fL Immature Gran # (0.00-0.04) X 10*3/uL ABG pCO2 (35-45) mmHg ABG pO2 (83-108) mmHg Chloride (96-109) mmol/L Carbon Dioxide (22-30) mmol/L Anion Gap (10.00-18.00) mmol/L BUN (9.0-27.0) mg/dL Creatinine (0.52-1.04) mg/dL Est GFR (CKD-EPI)AfAm (60.0-200.0) Est GFR (CKD-EPI)NonAf (60.0-200.0) BUN/Creatinine Ratio (12.00-20.00) Ratio Glucose (70-110) mg/dL POC Glucose (mg/dL) 113 H 122 H 134 H (75-99) mg/dL Calcium (8.7-10.3) mg/dL Magnesium (1.6-2.3) mg/dL Total Bilirubin (0.30-1.20) mg/dL ALT (8-44) U/L Total Protein (6.2-8.2) g/dL Albumin (3.8-4.9) g/dL Albumin/Globulin Ratio (1.60-3.17) g/dL 06/21/21 06/21/21 06/21/21 Range/Units 07:39 07:39 07:46 RBC 2.97 L (4.10-5.20) X 10*6/uL Hgb 8.2 L (12.0-15.0) g/dL Hct 27.3 L (37.2-46.3) % MCH (27.0-32.0) pg MCHC 30.1 L (32.0-37.0) g/dL RDW 17.7 H (11.5-14.5) % MPV (9.5-12.2) fL Immature Gran # (0.00-0.04) X 10*3/uL ABG pCO2 30 L (35-45) mmHg ABG pO2 68 L (83-108) mmHg Chloride 114 H (96-109) mmol/L Carbon Dioxide 16 L (22-30) mmol/L Anion Gap (10.00-18.00) mmol/L BUN 33 H (9.0-27.0) mg/dL Creatinine 1.28 H (0.52-1.04) mg/dL Est GFR (CKD-EPI)AfAm (60.0-200.0) Est GFR (CKD-EPI)NonAf (60.0-200.0) BUN/Creatinine Ratio (12.00-20.00) Ratio Glucose 136 H (70-110) mg/dL POC Glucose (mg/dL) (75-99) mg/dL Calcium 8.0 L (8.7-10.3) mg/dL Magnesium 1.5 L (1.6-2.3) mg/dL Total Bilirubin (0.30-1.20) mg/dL ALT (8-44) U/L Total Protein 4.6 L (6.2-8.2) g/dL Albumin 1.7 L (3.8-4.9) g/dL Albumin/Globulin Ratio (1.60-3.17) g/dL Microbiology - Last 24 Hours (Table) 06/17/21 14:30 Gram Stain - Preliminary Pleural Fluid Body Fluid Culture - Preliminary
[2021-06-21] MEDS: PANTOPRAZOLE 40 MG TABLET PO SCH (08:29)
[2021-06-21] MEDS ORDERED: HEPARIN SOD,PORK IN 0.45% NACL 25,000 UNIT in 0.45% NACL 1 250ML.BAG IV SCH (08:30)
[2021-06-21] MEDS: METOPROLOL TARTRATE 50 MG TAB PO SCH ×2 (08:37→20:53)
[2021-06-21] MEDS: ASPIRIN 81 MG PO SCH (08:37)
[2021-06-21] MEDS: FUROSEMIDE 10 MG/ML 2 ML VIAL IV SCH (09:04)
[2021-06-21] MEDS: MAGNESIUM SULFATE-D5W PMX 1 GM in DEXTROSE/WATER 1 100ML.BAG IVPB SCH ×4 (09:29→15:30)
[2021-06-21 09:47] LABS: INR 1.7 (<1.2); Partial Thromboplastin Time 91.9 sec (22.0-30.0); Prothrombin Time 16.9 sec (9.0-12.0)
[2021-06-21] MEDS: COLLAGENASE 250 UNIT/GM OINTMENT 30 GM TUBE TOPICAL SCH (10:00)
[2021-06-21 12:35] LABS: Glucose,Whole Blood 202 mg/dL (75-99)
--- NOTE | 2021-06-21 14:19 | P.PN ---
Subjective Progress Note Date: 06/21/21 I was asked by the primary team to re-evaluated the patient since patient has decreased responsiveness on 06/20/2021. It seems on 06/19/2021 the patient went into A. fib with RVR started. Patient had a CT of the head on 06/20/2021 and it's reported as cerebral atrophy and chronic small vessel ischemia. 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 No significant change compared to the recent exam. Ethmoid and maxillary sinusitis. I personally reviewed the CT of the head and I agree with the report. Since the patient creatinine level is trended up and most recent one is 1.28. Objective - Vital Signs Vital signs: Vital Signs Temp 98.1 F 06/21/21 08:00 Pulse 129 H 06/21/21 09:15 Resp 16 06/21/21 08:00 BP 109/72 06/21/21 08:00 Pulse Ox 99 06/21/21 08:00 Intake & Output 06/20/21 06/21/21 06/21/21 18:59 06:59 18:59 Intake Total 20.683 Balance 20.683 Intake: Intake, IV Titration 20.683 Amount Heparin Sod,Pork in 0.45% 20.683 NaCl 25,000 unit In 0.45 % NaCl 1 250ml.bag @ 12 UNITS/KG/HR 5.443 mls/hr IV .Q24H [facility] Rx#: [id number] Other: Voiding Method Diaper Diaper Diaper Incontinent Incontinent Incontinent # Voids 1 1 - Exam GENERAL: The patient is lying in bed and does not seem in acute distress. NEUROLOGICAL: Higher mental function: The patient is awake but is not verbally responding or following commands. Cranial nerves: The pupils are round, equal and reactive to light. Primary gaze is midline on left but right eye slightly extropia. No facial weakness. Otherwise rest is limited. V Motor: The strength is hard to assess but not withdrawing to painful stimuli. No spontaneous movement noted. i Sensation: Unable to assess. - Labs CBC & Chem 7: 06/21/21 07:39 06/21/21 07:39 Labs: Abnormal Lab Results - Last 24 Hours (Table) 06/20/21 06/20/21 06/21/21 Range/Units 16:28 20:20 06:51 RBC (3.80-5.40) m/uL Hgb (11.4-16.0) gm/dL Hct (34.0-46.0) % MCHC (31.0-37.0) g/dL RDW (11.5-15.5) % PT (9.0-12.0) sec INR (<1.2) APTT (22.0-30.0) sec ABG pCO2 (35-45) mmHg ABG pO2 (83-108) mmHg Chloride (98-107) mmol/L Carbon Dioxide (22-30) mmol/L BUN (7-17) mg/dL Creatinine (0.52-1.04) mg/dL Glucose (74-99) mg/dL POC Glucose (mg/dL) 113 H 122 H 134 H (75-99) mg/dL Calcium (8.4-10.2) mg/dL Magnesium (1.6-2.3) mg/dL Total Protein (6.3-8.2) g/dL Albumin (3.5-5.0) g/dL 06/21/21 06/21/21 06/21/21 Range/Units 07:39 07:39 07:46 RBC 2.97 L (3.80-5.40) m/uL Hgb 8.2 L (11.4-16.0) gm/dL Hct 27.3 L (34.0-46.0) % MCHC 30.1 L (31.0-37.0) g/dL RDW 17.7 H (11.5-15.5) % PT (9.0-12.0) sec INR (<1.2) APTT (22.0-30.0) sec ABG pCO2 30 L (35-45) mmHg ABG pO2 68 L (83-108) mmHg Chloride 114 H (98-107) mmol/L Carbon Dioxide 16 L (22-30) mmol/L BUN 33 H (7-17) mg/dL Creatinine 1.28 H (0.52-1.04) mg/dL Glucose 136 H (74-99) mg/dL POC Glucose (mg/dL) (75-99) mg/dL Calcium 8.0 L (8.4-10.2) mg/dL Magnesium 1.5 L (1.6-2.3) mg/dL Total Protein 4.6 L (6.3-8.2) g/dL Albumin 1.7 L (3.5-5.0) g/dL 06/21/21 06/21/21 Range/Units 09:23 12:33 RBC (3.80-5.40) m/uL Hgb (11.4-16.0) gm/dL Hct (34.0-46.0) % MCHC (31.0-37.0) g/dL RDW (11.5-15.5) % PT 16.9 H (9.0-12.0) sec INR 1.7 H (<1.2) APTT 91.9 H (22.0-30.0) sec ABG pCO2 (35-45) mmHg ABG pO2 (83-108) mmHg Chloride (98-107) mmol/L Carbon Dioxide (22-30) mmol/L BUN (7-17) mg/dL Creatinine (0.52-1.04) mg/dL Glucose (74-99) mg/dL POC Glucose (mg/dL) 202 H (75-99) mg/dL Calcium (8.4-10.2) mg/dL Magnesium (1.6-2.3) mg/dL Total Protein (6.3-8.2) g/dL Albumin (3.5-5.0) g/dL Microbiology - Last 24 Hours (Table) 06/17/21 14:30 Gram Stain - Preliminary Pleural Fluid Body Fluid Culture - Preliminary Assessment and Plan Assessment: Drastic worsneing of Encephalopathy: Rule out stroke especially with new onset Afib with RVR (not responding or following commands). Rule out seizure. Patient has component of metabolic encephalopathy and urinary tract infection New onset A. fib with RVR Acute urinary tract infection with underlying recurrent history of urinary tract infection Acute kidney injury History of hypertension History of mild dementia History of coronary artery disease status post stenting Chronic small vessel disease due to patient risk factor diabetes hypertension age and sex (right basal ganglia) Plan: MRI Brain is pending I ordered routine EEG (which will be completed tomorrow). Continue aspirin 81 mg and Lipitor 10 mg daily at bedtime. She is ASA 600mg once rectally. 2D echo is ordered If she has acute or subacute stroke will get the rest of stroke work-up. Cardiology is on board I.D. is on board. Patient condition is very guarded to critical. Palliative care is consulted by primary team. The plan was discussed with the patient's primary team and her nurse. Torres Shin M.D. Neuro-hospitalist Time with Patient: Less than 30
[2021-06-21 16:34] LABS: Glucose,Whole Blood 213 mg/dL (75-99)
[2021-06-21] MEDS: HEPARIN SODIUM,PORCINE/PF 5,000 UNIT/0.5 ML SYRINGE SQ SCH (16:55)
--- NOTE | 2021-06-21 17:35 | P.PN ---
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 On today's evaluation that is 06/21/2021, the patient remains to be afebrile, the patient is breathing comfortably on room air, the patient is lethargic though awake but not responding to any questions or to the family, no vomiting or diarrhea has been reported by the nursing staff Objective - Vital Signs Vital signs: Vital Signs Temp 98.1 F 06/21/21 08:00 Pulse 129 H 06/21/21 09:15 Resp 16 06/21/21 08:00 BP 109/72 06/21/21 08:00 Pulse Ox 99 06/21/21 08:00 Intake & Output 06/20/21 06/21/21 06/21/21 18:59 06:59 18:59 Intake Total 20.683 Balance 20.683 Intake: Intake, IV Titration 20.683 Amount Heparin Sod,Pork in 0.45% 20.683 NaCl 25,000 unit In 0.45 % NaCl 1 250ml.bag @ 12 UNITS/KG/HR 5.443 mls/hr IV .Q24H [facility] Rx#: [id number] Other: Voiding Method Diaper Diaper Diaper Incontinent Incontinent Incontinent # Voids 1 1 - Exam GENERAL DESCRIPTION: An elderly female lying in bed in no distress RESPIRATORY SYSTEM: Unlabored breathing , decreased breath sounds at bases HEART: S1 S2 regular rate and rhythm , ABDOMEN: Soft , no tenderness EXTREMITIES: No edema feet - Labs CBC & Chem 7: 06/21/21 07:39 06/21/21 07:39 Labs: Abnormal Lab Results - Last 24 Hours (Table) 06/20/21 06/20/21 06/21/21 Range/Units 16:28 20:20 06:51 RBC (3.80-5.40) m/uL Hgb (11.4-16.0) gm/dL Hct (34.0-46.0) % MCHC (31.0-37.0) g/dL RDW (11.5-15.5) % PT (9.0-12.0) sec INR (<1.2) APTT (22.0-30.0) sec ABG pCO2 (35-45) mmHg ABG pO2 (83-108) mmHg Chloride (98-107) mmol/L Carbon Dioxide (22-30) mmol/L BUN (7-17) mg/dL Creatinine (0.52-1.04) mg/dL Glucose (74-99) mg/dL POC Glucose (mg/dL) 113 H 122 H 134 H (75-99) mg/dL Calcium (8.4-10.2) mg/dL Magnesium (1.6-2.3) mg/dL Total Protein (6.3-8.2) g/dL Albumin (3.5-5.0) g/dL 06/21/21 06/21/21 06/21/21 Range/Units 07:39 07:39 07:46 RBC 2.97 L (3.80-5.40) m/uL Hgb 8.2 L (11.4-16.0) gm/dL Hct 27.3 L (34.0-46.0) % MCHC 30.1 L (31.0-37.0) g/dL RDW 17.7 H (11.5-15.5) % PT (9.0-12.0) sec INR (<1.2) APTT (22.0-30.0) sec ABG pCO2 30 L (35-45) mmHg ABG pO2 68 L (83-108) mmHg Chloride 114 H (98-107) mmol/L Carbon Dioxide 16 L (22-30) mmol/L BUN 33 H (7-17) mg/dL Creatinine 1.28 H (0.52-1.04) mg/dL Glucose 136 H (74-99) mg/dL POC Glucose (mg/dL) (75-99) mg/dL Calcium 8.0 L (8.4-10.2) mg/dL Magnesium 1.5 L (1.6-2.3) mg/dL Total Protein 4.6 L (6.3-8.2) g/dL Albumin 1.7 L (3.5-5.0) g/dL 06/21/21 06/21/21 06/21/21 Range/Units 09:23 12:33 14:32 RBC (3.80-5.40) m/uL Hgb (11.4-16.0) gm/dL Hct (34.0-46.0) % MCHC (31.0-37.0) g/dL RDW (11.5-15.5) % PT 16.9 H (9.0-12.0) sec INR 1.7 H (<1.2) APTT 91.9 H 142.7 H* (22.0-30.0) sec ABG pCO2 (35-45) mmHg ABG pO2 (83-108) mmHg Chloride (98-107) mmol/L Carbon Dioxide (22-30) mmol/L BUN (7-17) mg/dL Creatinine (0.52-1.04) mg/dL Glucose (74-99) mg/dL POC Glucose (mg/dL) 202 H (75-99) mg/dL Calcium (8.4-10.2) mg/dL Magnesium (1.6-2.3) mg/dL Total Protein (6.3-8.2) g/dL Albumin (3.5-5.0) g/dL Microbiology - Last 24 Hours (Table) 06/17/21 14:30 Gram Stain - Preliminary Pleural Fluid Body Fluid Culture - Preliminary Assessment and Plan (1) UTI (urinary tract infection) Current Visit: No Status: Acute Code(s): N39.0 - URINARY TRACT INFECTION, SITE NOT SPECIFIED SNOMED Code(s): 90479874 Plan: 1patient presented to hospital with mental status changes weakness foul- smelling urine with a history of recurrent UTI and did have a positive UA likely symptomatic urinary tract infection from enteric gram-negative pathogen. 2patient with wound to the left heel and left foot area but no cellulitis. 3patient urine culture been finalized as E. coli that is a sensitive pathogen, patient antibiotics switched over to Rocephin 2 g daily 4-patient is status post thoracocentesis cultures are so far negative repeat chest x-ray did shows persistent moderate bilateral effusion, 5- mental status changes decreased responsiveness CT of the brain that did not show any acute bleed neurology is following the patient continue supportive care Time with Patient: Less than 30
[2021-06-21] MEDS: SODIUM CHLORIDE 0.45% 1,000 ML IV SCH (19:15)
[2021-06-21 19:53] LABS: Glucose,Whole Blood 258 mg/dL (75-99)
[2021-06-21] MEDS: ATORVASTATIN 10 MG TAB PO SCH (20:53)
[2021-06-22 06:04] LABS: Glucose,Whole Blood 208 mg/dL (75-99)
[2021-06-22] MEDS: INSULIN ASPART (NovoLOG) 100 UNIT/ML VIAL SQ SCH ×3 (06:17→19:16)
[2021-06-22] MEDS: SODIUM CHLORIDE 0.45% 1,000 ML IV SCH (06:17)
[2021-06-22] MEDS: PANTOPRAZOLE 40 MG TABLET PO SCH (06:18)
[2021-06-22] MEDS: COLLAGENASE 250 UNIT/GM OINTMENT 30 GM TUBE TOPICAL SCH (09:19)
[2021-06-22 09:53] LABS: Anisocytosis Slight; HCT 25.4 % (34.0-46.0); HGB 7.6 gm/dL (11.4-16.0); Hypochromasia Marked; MCH 27.8 pg (25.0-35.0); MCHC 30.1 g/dL (31.0-37.0); MCV 92.4 fL (80.0-100.0); Mean Platelet Volume 8.9; Platelet Count 239 k/uL (150-450); RBC 2.75 m/uL (3.80-5.40); WBC 12.1 k/uL (3.8-10.6)
[2021-06-22] MEDS: ASPIRIN 81 MG PO SCH (09:59)
[2021-06-22] MEDS: METOPROLOL TARTRATE 50 MG TAB PO SCH (09:59)
[2021-06-22] MEDS: FUROSEMIDE 10 MG/ML 2 ML VIAL IV SCH (10:03)
[2021-06-22 10:11] LABS: ALT <6 U/L (4-34); AST 14 U/L (14-36); African American GFR (CKD) 40 (>60 ml/min/1.73 sqM); Albumin 1.6 g/dL (3.5-5.0); Alkaline Phosphatase 91 U/L (38-126); Anion Gap 8 mmol/L; Blood Urea Nitrogen 33 mg/dL (7-17); Calcium 7.9 mg/dL (8.4-10.2); Carbon Dioxide 18 mmol/L (22-30); Chloride 111 mmol/L (98-107); Glucose 204 mg/dL (74-99); Non-African American GFR(CKD) 34 (>60 ml/min/1.73 sqM); Potassium 3.4 mmol/L (3.5-5.1); Sodium 137 mmol/L (137-145); Total Bilirubin 0.5 mg/dL (0.2-1.3); Total Protein 4.3 g/dL (6.3-8.2)
--- NOTE | 2021-06-22 11:33 | P.CRDCN ---
History of Present Illness Consult date: 06/22/21 History of present illness: HISTORY OF PRESENT ILLNESS: This is a 76-year-old female with a past medical history significant for dementia, hypertension, hyperlipidemia, and diabetes. Patient does not follow with a outpatient scheduler. We have been asked to see the patient in consultation for atrial fibrillation. Patient examined at the bedside. The patient is nonverbal and lethargic at the time of examination. The patient currently went into A. fi b with RVR yesterday. There is no documented history of atrial fibrillation. She was started on IV Cardizem and IV heparin. Per nursing, the patient was unable to tolerate IV heparin and this was since discontinued. She remains on IV Cardizem at 5 mg an hour. She is unable to take oral medications. She remains in atrial fibrillation with a heart rate in the 90s. * EKG reveals A. fib with RVR * Chest xray persistent bilateral moderate pleural effusions * Laboratory data: WBC 12.1. Hemoglobin 7.6. Platelet count 239. Sodium 134. Potassium 3.4. BUN 33. Creatinine 1.49. Magnesium 2.6. * Current home cardiac medications include Lasix 40 mg daily, amlodipine 5 mg daily, metoprolol succinate 100 mg daily, simvastatin 20 mg at night * Echocardiogram completed revealing ejection fraction 40-45%, moderate pericardial effusion with no evidence of cardiac tamponade REVIEW OF SYSTEMS: At the time of my exam: Unable to obtain thorough review of systems secondary to altered mental status PHYSICAL EXAM: VITAL SIGNS: Reviewed. GENERAL: Well-developed in no acute distress. HEENT: Head is normocephalic. Pupils are equal, round. Sclerae anicteric. Mucous membranes of the mouth are moist. Neck supple. No JVD or thyromegaly LUNGS: Respirations even and unlabored. Lungs essentially clear to auscultation bilaterally. HEART: Irregular rate and rhythm. S1 and S2 heard. ABDOMEN: Soft. Nondistended. Nontender. EXTREMITIES: Normal range of motion. No clubbing or cyanosis. Peripheral pulses intact. No lower extremity edema NEUROLOGIC: Lethargic ASSESSMENT: Acute encephalopathy Sepsis with E. coli pyelonephritis Acute kidney injury Acute hypoxic respiratory failure Bilateral pleural effusions status post thoracentesis Atrial fibrillation with RVR, appears to be new onset, unable to tolerate IV heparin Coronary artery disease with previous PCI per previous cardiology consult, details unknown Cardiomyopathy, ischemic Hypertension Hyperlipidemia Diabetes PLAN: Continue IV Cardizem for rate control as patient is unable to take oral medications Patient apparently unable to tolerate anticoagulation. Will ultimately defer decision of anticoagulation to admitting physician Patients prognosis appears to be poor. Recommend palliative care/comfort care. We will sign off. Please reconsult if needed. Nurse practitioner note has been reviewed by physician. Signing provider agrees with the documented findings, assessment, and plan of care. Past Medical History Past Medical History: Coronary Artery Disease (CAD), Diabetes Mellitus, Hyperlipidemia, Hypertension Additional Past Medical History / Comment(s): mild, wound care center for left. left broken ankle. History of Any Multi-Drug Resistant Organisms: None Reported Past Surgical History: Cholecystectomy, Heart Catheterization With Stent, Orthopedic Surgery Additional Past Surgical History / Comment(s): hip surgery, cataract sx, left ankle surgery 2020 Past Anesthesia/Blood Transfusion Reactions: No Reported Reaction Date of Last Stent Placement:: 2000 Past Psychological History: No Psychological Hx Reported Smoking Status: Never smoker Past Alcohol Use History: None Reported Past Drug Use History: None Reported Medications and Allergies Home Medications Medication Instructions Recorded Confirmed Type Latanoprost/Pf [Latanoprost 0.005% 1 drop BOTH EYES HS 09/14/20 06/13/21 History Eye Drop] Sodium Bicarbonate Tab 650 mg PO TID #90 tab 11/20/20 06/13/21 Rx Cholecalciferol (Vitamin D3) 125 mcg PO DAILY 12/25/20 06/13/21 History [Vitamin D3 (125 MCG = 5,000 IU)] Iron Polysaccharide Complex 150 mg PO DAILY 12/25/20 06/13/21 History [Ferrex 150] Metoprolol Succinate (ER) [Toprol 100 mg PO DAILY 12/25/20 06/13/21 History XL] Pantoprazole Sodium [Protonix] 40 mg PO DAILY 12/25/20 06/13/21 History Simvastatin [Zocor] 20 mg PO HS 12/25/20 06/13/21 History amLODIPine [Norvasc] 5 mg PO DAILY 12/25/20 06/13/21 History Aspirin EC [Ecotrin Low Dose] 81 mg PO DAILY 06/13/21 06/13/21 History Collagenase [Santyl Ointment] 1 applic TOPICAL DAILY 06/13/21 06/13/21 History Diphenoxylate HCl/Atropine 2 tab PO QID PRN 06/13/21 06/13/21 History [Lomotil 2.5-0.025 mg Tablet] Insulin Lispro [humaLOG Kwikpen] See Protocol SQ AC-TID PRN 06/13/21 06/13/21 History Ondansetron Odt [Zofran ODT] 4 mg PO Q12HR PRN 06/13/21 06/13/21 History glipiZIDE [Glucotrol] 2.5 mg PO BID 06/13/21 06/13/21 History Acetaminophen Tab [Tylenol] 650 mg PO Q6HR PRN tab 06/19/21 Rx Cephalexin [Keflex] 500 mg PO Q8HR 3 Days #9 cap 06/19/21 Rx Furosemide [Lasix] 40 mg PO DAILY 30 Days #30 tab 06/19/21 Rx Allergies Allergy/AdvReac Type Severity Reaction Status Date / Time cephalexin [From Keflex] AdvReac Swelling Verified 06/20/21 21:08 Physical Exam Vitals: Vital Signs Temp Pulse Resp BP Pulse Ox 06/22/21 02:00 86 18 111/61 97 06/21/21 20:00 98.4 F 68 18 124/66 95 06/21/21 14:00 97 16 113/71 97 06/21/21 09:15 129 H Intake and Output 06/21/21 06/22/21 06/22/21 22:59 06:59 14:59 Intake Total 13.13 Output Total 250 Balance 13.13 -250 Intake: Intake, IV Titration 13.13 Amount Heparin Sod,Pork in 0.45% 13.13 NaCl 25,000 unit In 0.45 % NaCl 1 250ml.bag @ 12 UNITS/KG/HR 5.443 mls/hr IV .Q24H [facility] Rx#: [id number] Output: Urine 250 Other: Voiding Method Diaper Incontinent Results 06/22/21 06:38 06/22/21 06:38 Coagulation 06/21/21 06/21/21 Range/Units 09:23 14:32 PT 16.9 H (9.0-12.0) sec APTT 91.9 H 142.7 H* (22.0-30.0) sec Current Medications Generic Name Dose Route Start Last Admin Trade Name Freq PRN Reason Stop Dose Admin Acetaminophen 650 mg 06/13/21 18:51 04/15/22 10:07 Acetaminophen Tab 325 Mg Tab PO 650 mg Q6HR PRN Administration Mild Pain or Fever > 100.5 Aspirin 81 mg 06/14/21 09:00 06/21/21 08:37 Aspirin 81 Mg PO Not Given DAILY [facility] Atorvastatin Calcium 10 mg 06/14/21 21:00 06/21/21 20:53 Atorvastatin 10 Mg Tab PO Not Given HS [facility] Collagenase 1 applic 06/15/21 09:30 06/21/21 10:00 Collagenase 250 Unit/Gm Ointment 30 Gm Tube TOPICAL 1 applic DAILY [facility] Administration Protocol Furosemide 20 mg 06/19/21 16:45 06/21/21 09:04 Furosemide 10 Mg/Ml 2 Ml Vial IV 20 mg DAILY [facility] Administration Diltiazem HCl 125 mg/ Sodium 125 mls @ 0 mls/hr 06/21/21 08:00 06/21/21 08:56 Chloride IV 5 ml/hr .Q0M ANNMARIE 5 mls/hr Administration Protocol Per Protocol Sodium Chloride 1,000 mls @ 50 mls/hr 06/21/21 07:45 06/22/21 06:17 Saline 0.45% IV Not Given .Q20H [facility] Ceftriaxone Sodium 2 gm/ 50 mls @ 100 mls/hr 06/21/21 18:00 06/21/21 20:54 Sodium Chloride IVPB 100 mls/hr Q24HR [facility] Administration Protocol Insulin Aspart 0 unit 06/14/21 07:30 06/22/21 06:17 Insulin Aspart (Novolog) 100 Unit/Ml Vial SQ Not Given ACHS [facility] Protocol Metoprolol Tartrate 50 mg 06/20/21 21:00 06/21/21 20:53 Metoprolol Tartrate 50 Mg Tab PO Not Given BID [facility] Naloxone HCl 0.2 mg 06/13/21 18:02 Naloxone 0.4 Mg/Ml 1 Ml Vial IV Q2M PRN Opioid Reversal Pantoprazole Sodium 40 mg 06/14/21 07:30 06/22/21 06:18 Pantoprazole 40 Mg Tablet PO Not Given AC-BRKFST [facility] Intake and Output 06/21/21 06/22/21 06/22/21 22:59 06:59 14:59 Intake Total 13.13 Output Total 250 Balance 13.13 -250 Intake: Intake, IV Titration 13.13 Amount Heparin Sod,Pork in 0.45% 13.13 NaCl 25,000 unit In 0.45 % NaCl 1 250ml.bag @ 12 UNITS/KG/HR 5.443 mls/hr IV .Q24H [facility] Rx#: [id number] Output: Urine 250 Other: Voiding Method Diaper Incontinent 06/21/21 07:39 06/21/21 07:39
[2021-06-22 11:54] LABS: Glucose,Whole Blood 230 mg/dL (75-99)
[2021-06-22] MEDS ORDERED: POTASSIUM CHLORIDE 20 MEQ in WATER FOR INJECTION 1 100ML.BAG IVPB STA (12:30)
--- NOTE | 2021-06-22 14:06 | P.CONS ---
History of Present Illness - Reason for Consult Consult date: 06/22/21 Malnutrition Requesting physician: Kena Anderson - Chief Complaint Lethargy, Foul smelling urine, AMS - History of Present Illness The patient is a 76-year-old female with a PMH of mild dementia, HTN, type 2 DM, and HLD, who was brought into the ED by family for confusion, foul smelling urine, and diffuse weakness. The patient is Italian speaking with history supplemented by son-in-law (Neil via phone) and ED provider. The patient reportedly has been sleeping most of the days at home, is too weak to ambulate, and has foul smelling urine. The family reports that this is typical of her UTIs for which she has been hospitalized multiple times in the past. He also reports that the patient has not been eating or drinking much as a result of her above symptoms, and has also been more confused than usual. The patient herself reported feeling tired but denied any focal complaints. Family denied reports of chest discomfort, shortness of breath, nausea, vomiting, or abdominal pain. The patient was hypotensive in the emergency room with BP 74/40 at presentation. Chest x-ray in the emergency room was unremarkable. Laboratory evaluation revealed a sodium 131, potassium 3.4, CO2 33, BUN 71, creatinine 1.90, almond 2.2, and a UA consistent with UTI. She was fluid resuscitated in the emergency department, she was started on antibiotics. Urine culture showing E. coli which was sensitive to Cefepime. Blood culture has shown no growth. Procalcitonin level was elevated at 66.7 during this admission. On 06/17/21 The patient underwent right-sided thoracentesis with removal of a little over 1.2 L of pleural fluid which was sent for pleural fluid analysis, cytology and cultures, pleural fluid analysis revealed transudative fluid consistent with CHF. Patient tolerated procedure well. Today's chest x-ray showing continued bibasilar opacities, patchy right midlung opacity the possibility of atelectasis. She remains on Cefepime for empiric antibiotic c overage, and in view of E. coli urinary tract infection. On 06/19/2021 the patient had decreased responsiveness and found to be in Afib with RVR. She was started on IV Heparin and Cadizem. She also had a CT of the head on 06/20/2021 and it's reported as cerebral atrophy and chronic small vessel ischemia. 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 No significant change compared to the recent exam. Ethmoid and maxillary sinusitis. Review of Systems ROS unobtainable: due to mental status Past Medical History Past Medical History: Coronary Artery Disease (CAD), Diabetes Mellitus, Hyperlipidemia, Hypertension Additional Past Medical History / Comment(s): mild, wound care center for left. left broken ankle. History of Any Multi-Drug Resistant Organisms: None Reported Past Surgical History: Cholecystectomy, Heart Catheterization With Stent, Orthopedic Surgery Additional Past Surgical History / Comment(s): hip surgery, cataract sx, left ankle surgery 2020 Past Anesthesia/Blood Transfusion Reactions: No Reported Reaction Date of Last Stent Placement:: 2000 Past Psychological History: No Psychological Hx Reported Smoking Status: Never smoker Past Alcohol Use History: None Reported Past Drug Use History: None Reported Medications and Allergies Home Medications Medication Instructions Recorded Confirmed Type Latanoprost/Pf [Latanoprost 0.005% 1 drop BOTH EYES HS 09/14/20 06/13/21 History Eye Drop] Sodium Bicarbonate Tab 650 mg PO TID #90 tab 11/20/20 06/13/21 Rx Cholecalciferol (Vitamin D3) 125 mcg PO DAILY 12/25/20 06/13/21 History [Vitamin D3 (125 MCG = 5,000 IU)] Iron Polysaccharide Complex 150 mg PO DAILY 12/25/20 06/13/21 History [Ferrex 150] Metoprolol Succinate (ER) [Toprol 100 mg PO DAILY 12/25/20 06/13/21 History XL] Pantoprazole Sodium [Protonix] 40 mg PO DAILY 12/25/20 06/13/21 History Simvastatin [Zocor] 20 mg PO HS 12/25/20 06/13/21 History amLODIPine [Norvasc] 5 mg PO DAILY 12/25/20 06/13/21 History Aspirin EC [Ecotrin Low Dose] 81 mg PO DAILY 06/13/21 06/13/21 History Collagenase [Santyl Ointment] 1 applic TOPICAL DAILY 06/13/21 06/13/21 History Diphenoxylate HCl/Atropine 2 tab PO QID PRN 06/13/21 06/13/21 History [Lomotil 2.5-0.025 mg Tablet] Insulin Lispro [humaLOG Kwikpen] See Protocol SQ AC-TID PRN 06/13/21 06/13/21 History Ondansetron Odt [Zofran ODT] 4 mg PO Q12HR PRN 06/13/21 06/13/21 History glipiZIDE [Glucotrol] 2.5 mg PO BID 06/13/21 06/13/21 History Acetaminophen Tab [Tylenol] 650 mg PO Q6HR PRN tab 06/19/21 Rx Cephalexin [Keflex] 500 mg PO Q8HR 3 Days #9 cap 06/19/21 Rx Furosemide [Lasix] 40 mg PO DAILY 30 Days #30 tab 06/19/21 Rx Allergies Allergy/AdvReac Type Severity Reaction Status Date / Time cephalexin [From Keflex] AdvReac Swelling Verified 06/20/21 21:08 Physical Exam Vitals: Vital Signs Temp Pulse Resp BP Pulse Ox 06/22/21 09:05 95 06/22/21 08:00 97.4 F L 93 16 117/58 97 06/22/21 02:00 86 18 111/61 97 06/21/21 20:00 98.4 F 68 18 124/66 95 06/21/21 14:00 97 16 113/71 97 Intake and Output 06/21/21 06/22/21 06/22/21 22:59 06:59 14:59 Intake Total 13.13 Output Total 250 Balance 13.13 -250 Intake: Intake, IV Titration 13.13 Amount Heparin Sod,Pork in 0.45% 13.13 NaCl 25,000 unit In 0.45 % NaCl 1 250ml.bag @ 12 UNITS/KG/HR 5.443 mls/hr IV .Q24H [facility] Rx#: [id number] Output: Urine 250 Other: Voiding Method Diaper Diaper Incontinent Incontinent General: No acute distress. HEENT: Head is atraumatic, normocephalic Neck is supple. Sclerae are clear. Pupils equal, round and reactive to light bilaterally. CV: Irregular rhythm S1 and S2. No clicks, rubs or murmurs. No JVD. Peripheral pulses equal. 2/4 Lungs: Diminshed bases bilaterally. No wheezes rales or rhonchi. Respirations even and nonlabored. No intercostal retractions. Abdomen/GI: Soft. Bowel sounds present in all 4 quadrants. Bowel sounds normoactive. No abdominal tenderness. : Mack draining clear, yellow urine Musculoskeletal/ Extremities: Gross muscle atrophy and contractures present. Vascular: Radial pulses equal. 2/4. Anasarca to b/l upper extremities L>R Skin: Ulcers present to Left foot, left ankle, and left buttock Neurologic: Opens eyes, does not follow commands Psychiatric: Flat affect. Results CBC & Chem 7: 06/22/21 06:38 06/22/21 06:38 Labs: Abnormal Lab Results - Last 24 Hours (Table) 06/21/21 06/21/21 06/21/21 Range/Units 14:32 16:32 19:51 WBC (3.8-10.6) k/uL RBC (3.80-5.40) m/uL Hgb (11.4-16.0) gm/dL Hct (34.0-46.0) % MCHC (31.0-37.0) g/dL RDW (11.5-15.5) % APTT 142.7 H* (22.0-30.0) sec Potassium (3.5-5.1) mmol/L Chloride (98-107) mmol/L Carbon Dioxide (22-30) mmol/L BUN (7-17) mg/dL Creatinine (0.52-1.04) mg/dL Glucose (74-99) mg/dL POC Glucose (mg/dL) 213 H 258 H (75-99) mg/dL Calcium (8.4-10.2) mg/dL Magnesium (1.6-2.3) mg/dL Total Protein (6.3-8.2) g/dL Albumin (3.5-5.0) g/dL 06/22/21 06/22/21 06/22/21 Range/Units 06:02 06:38 06:38 WBC 12.1 H (3.8-10.6) k/uL RBC 2.75 L (3.80-5.40) m/uL Hgb 7.6 L (11.4-16.0) gm/dL Hct 25.4 L (34.0-46.0) % MCHC 30.1 L (31.0-37.0) g/dL RDW 18.0 H (11.5-15.5) % APTT (22.0-30.0) sec Potassium (3.5-5.1) mmol/L Chloride (98-107) mmol/L Carbon Dioxide (22-30) mmol/L BUN (7-17) mg/dL Creatinine (0.52-1.04) mg/dL Glucose (74-99) mg/dL POC Glucose (mg/dL) 208 H (75-99) mg/dL Calcium (8.4-10.2) mg/dL Magnesium 2.6 H (1.6-2.3) mg/dL Total Protein (6.3-8.2) g/dL Albumin (3.5-5.0) g/dL 06/22/21 06/22/21 Range/Units 06:38 11:42 WBC (3.8-10.6) k/uL RBC (3.80-5.40) m/uL Hgb (11.4-16.0) gm/dL Hct (34.0-46.0) % MCHC (31.0-37.0) g/dL RDW (11.5-15.5) % APTT (22.0-30.0) sec Potassium 3.4 L (3.5-5.1) mmol/L Chloride 111 H (98-107) mmol/L Carbon Dioxide 18 L (22-30) mmol/L BUN 33 H (7-17) mg/dL Creatinine 1.49 H (0.52-1.04) mg/dL Glucose 204 H (74-99) mg/dL POC Glucose (mg/dL) 230 H (75-99) mg/dL Calcium 7.9 L (8.4-10.2) mg/dL Magnesium (1.6-2.3) mg/dL Total Protein 4.3 L (6.3-8.2) g/dL Albumin 1.6 L (3.5-5.0) g/dL Microbiology - Last 24 Hours (Table) 06/17/21 14:30 Anaerobic Culture - Final Pleural Fluid 06/17/21 14:30 Gram Stain - Final Pleural Fluid Body Fluid Culture - Final Chest x-ray: report reviewed Abdominal x-ray: report reviewed CT scan - abdomen: report reviewed CT scan - chest: report reviewed CT Scan - head: report reviewed Assessment and Plan Assessment: Social - 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 She had 6 children, 4 boys (one ), and 2 girls. She currently lives with one of her daughters whom cares for her. Spiritual/Cultural - The patent speaks Italian and very little Sami according to her family. She is a mandaeism person and is Religious. She belongs to [facility]. No mandaeism or cultural practices/restrictions identified. Functional - The patient broke her ankle approximately one year ago. Since then, she has had multiple hospital admissions and has become bed bound. She is incontinent and wears briefs at home. She is unable to bath herself and relies on her family for care. She was able to feed herself until 06/19, when she became less responsive. The patient's daughter reports that she prepares her mothers meals at home and that she normally eat approximately half of her meals. However, the patient appears extremely cachexic. Psych/Emotoional - Unable to assess the patient due to aphagia. Per the patient's family, she has been depressed for 4 years, since the passing of her son. They state she has given up and just wants to sleep all the time. They state she was A&O x 3 until she became less responsive on 06/19. The family feels as if they are zbigniew close and provide a good support system. Plan: Goals - The patient's family, including her 2 daughters and , were present during examination. Education regarding disease processes, her current nutritional status, and her debility, provided to family. They state their goal was to bring her back to her daughter's house upon discharge. They are unwilling to make any decisions regarding her care until they get more test results explaining the mental status change. They are waiting on a MRI, 2D echo, and an EEG. Encouraged family to talk about what the patient would want if she does not improve. Family meeting set for tomorrow to further discuss goals of care. Stephania Erickson [facility] Palliative Care Spect[place]ink [phone] Email: [email or web address] Time with Patient: Greater than 30
--- NOTE | 2021-06-22 14:44 | P.PN ---
Subjective Progress Note Date: 06/22/21 Patient initially seen by Dr. Torres Shin. Please refer to his note for details. Patient is a 76-year-old female with altered mental status on 06/13/2021 for UTI. patient's mentation got worse since Tuesday, 2 days ago and has been not responsive. Patient has new onset atrial fibrillation on Tuesday. MRI of the brain is pending. EEG is pending. Palliative consultation has been initiated. Patient's family has been present, who states the patient has a history of mild dementia. She has not walked for a few months because of bed wound. Patient's family has noticed that her symptoms of altered mentation started getting worse on Tuesday and she was not responding as much, but it got much worse on Tuesday which she was just looking through, not grasping. Now she is unresponsive. No obvious seizure has been witnessed. Objective - Vital Signs Vital signs: Vital Signs Temp 97.4 F L 06/22/21 08:00 Pulse 93 06/22/21 08:00 Resp 16 06/22/21 08:00 BP 117/58 06/22/21 08:00 Pulse Ox 95 06/22/21 09:05 Intake & Output 06/21/21 06/22/21 06/22/21 18:59 06:59 18:59 Intake Total 33.813 Output Total 250 Balance 33.813 -250 Intake: Intake, IV Titration 33.813 Amount Heparin Sod,Pork in 0.45% 33.813 NaCl 25,000 unit In 0.45 % NaCl 1 250ml.bag @ 12 UNITS/KG/HR 5.443 mls/hr IV .Q24H [facility] Rx#: [id number] Output: Urine 250 Other: Voiding Method Diaper Diaper Diaper Incontinent Incontinent Incontinent - Exam on examination patient is an elderly female, who is severely obtunded, unresponsive to. Patient's pupils are equal, round and minimally reacting. Gaze is midline. Oculocephalics are not clearly present. Face appears grossly symmetric although difficult to assess. Her head is slightly deviated to the right. Tone is equal bilaterally. Patient is having very mild intensity rhythmic twitching of her body. Cannot rule out status. Plantars are wit hdrawal bilaterally. Patient would not squeeze hands or respond to any commands. - Labs CBC & Chem 7: 04/18/22 06:38 06/22/21 06:38 Labs: Abnormal Lab Results - Last 24 Hours (Table) 06/21/21 06/21/21 06/21/21 Range/Units 14:32 16:32 19:51 WBC (3.8-10.6) k/uL RBC (3.80-5.40) m/uL Hgb (11.4-16.0) gm/dL Hct (34.0-46.0) % MCHC (31.0-37.0) g/dL RDW (11.5-15.5) % APTT 142.7 H* (22.0-30.0) sec Potassium (3.5-5.1) mmol/L Chloride (98-107) mmol/L Carbon Dioxide (22-30) mmol/L BUN (7-17) mg/dL Creatinine (0.52-1.04) mg/dL Glucose (74-99) mg/dL POC Glucose (mg/dL) 213 H 258 H (75-99) mg/dL Calcium (8.4-10.2) mg/dL Magnesium (1.6-2.3) mg/dL Total Protein (6.3-8.2) g/dL Albumin (3.5-5.0) g/dL 06/22/21 06/22/21 06/22/21 Range/Units 06:02 06:38 06:38 WBC 12.1 H (3.8-10.6) k/uL RBC 2.75 L (3.80-5.40) m/uL Hgb 7.6 L (11.4-16.0) gm/dL Hct 25.4 L (34.0-46.0) % MCHC 30.1 L (31.0-37.0) g/dL RDW 18.0 H (11.5-15.5) % APTT (22.0-30.0) sec Potassium (3.5-5.1) mmol/L Chloride (98-107) mmol/L Carbon Dioxide (22-30) mmol/L BUN (7-17) mg/dL Creatinine (0.52-1.04) mg/dL Glucose (74-99) mg/dL POC Glucose (mg/dL) 208 H (75-99) mg/dL Calcium (8.4-10.2) mg/dL Magnesium 2.6 H (1.6-2.3) mg/dL Total Protein (6.3-8.2) g/dL Albumin (3.5-5.0) g/dL 06/22/21 06/22/21 Range/Units 06:38 11:42 WBC (3.8-10.6) k/uL RBC (3.80-5.40) m/uL Hgb (11.4-16.0) gm/dL Hct (34.0-46.0) % MCHC (31.0-37.0) g/dL RDW (11.5-15.5) % APTT (22.0-30.0) sec Potassium 3.4 L (3.5-5.1) mmol/L Chloride 111 H (98-107) mmol/L Carbon Dioxide 18 L (22-30) mmol/L BUN 33 H (7-17) mg/dL Creatinine 1.49 H (0.52-1.04) mg/dL Glucose 204 H (74-99) mg/dL POC Glucose (mg/dL) 230 H (75-99) mg/dL Calcium 7.9 L (8.4-10.2) mg/dL Magnesium (1.6-2.3) mg/dL Total Protein 4.3 L (6.3-8.2) g/dL Albumin 1.6 L (3.5-5.0) g/dL Microbiology - Last 24 Hours (Table) 06/17/21 14:30 Anaerobic Culture - Final Pleural Fluid 06/17/21 14:30 Gram Stain - Final Pleural Fluid Body Fluid Culture - Final Assessment and Plan Assessment: Drastic worsneing of Encephalopathy: Rule out brainstem stroke especially with new onset Afib with RVR (not responding or following commands). Rule out seizure/status. Patient has component of metabolic encephalopathy and urinary tract infection New onset A. fib with RVR Acute urinary tract infection with underlying recurrent history of urinary tract infection Acute kidney injury History of hypertension History of mild dementia History of coronary artery disease status post stenting Chronic small vessel disease due to patient risk factor diabetes hypertension age and sex (right basal ganglia) Plan: MRI Brain is pending EEG pending. Empirically start Keppra 500 mg twice a day until above results are available. Continue aspirin 81 mg and Lipitor 10 mg daily at bedtime. She is ASA 600mg once rectally. 2D echo revealed normal left ventricular size. Mitral valve leaflets are mildly thickened. Mild mitral annular calcification. There is moderate pericardial effusion is located near the right ventricle with the brain or thrombus forming. There is no evidence of cardiac temponade. Cardiology is on board I.D. is on board. Patient condition is very guarded to critical. Discussed with the family in detail.
--- NOTE | 2021-06-22 16:39 | P.PN ---
Subjective Progress Note Date: 06/22/21 (delayed charting seen at 1030) Principal diagnosis: confusion Patient is a 76-year-old female with a history of mild dementia, hypertension, diabetes mellitus type 2, and dyslipidemia who was brought in by family for foul-smelling urine, weakness, and confusion. In the ER patient underwent an extensive evaluation. In the emergency department she was found to be hyp otensive. Initial chest x-ray was unremarkable. Laboratory analysis demonstrated BUN of 71, creatinine of 1.2, and urinalysis was consistent with UTI. She was admitted and was started on Rocephin and IV fluids. She was seen by wound care for her chronic stage III left heel ulcer. She was seen by infectious disease as transitioned to cefepime. She was evaluated by neurology who felt that she likely had encephalopathy secondary to underlying metabolic conditions and episode of hypoglycemia. CT of the head showed no acute process at that time neurology and family felt that MRI was not warranted. Pulmonary was consulted due to bilatearl pleural effusions. She underwent thoracentesis on 06/17/21 with removal of 1.2L of fluid. She was strated on IV lasix for transudate effusion likely related to CHF vs malnutrition. On 06/19 she went into A fib wtih RVR,, felt to be secondary to BB withdrawal. She was started on toprol. On 06/20 she had decreased responsiveness and MRI brain was ordered, this is not available on the weekend and therefore stat head CT was obtained that showed Cerebral atrophy, old internal capsule infarct and ethmoid/maxillary sinusitis. On the morning of 06/21/21 I was called to emergently evaluate the patient due to decreased responsiveness and tachycardia. ABG and laboratory analysis was unremarkable. She was transferred to the selective start Cardizem drip which resulted in adequate heart rate control. Patient seen and examined at bedside. She continues to be minimally responsive. She opens her eyes to pain, she grimaces to pain. She does not look commands or speak. General: ill appearing, no distress, appears at stated age Derm: warm, dry Head: atraumatic, normocephalic, symmetric Eyes: EOMI, no lid lag, anicteric sclera Mouth: no lip lesion, mucus membranes moist Cardiovascular: S1S2 irreg, no murmur, positive posterior tibial pulse bila teral, Lungs: Decreased bs bilateral, no rhonchi, no rales , no accessory muscle use Abdominal: soft, nontender to palpation, no guarding, no appreciable organomegaly Ext: + gross muscle atrophy, Anasarca in dependent portion of arms and legs, no tremors, no fiassiculations Neuro: Pupils pinpoint, EOMI, will not open mouth, + grimiving to pain in a ll 4 extremities, + flexion contractures in b/l LE Psych: Eyes open, not follwing commands, flat affect Assessment/plan: P. A fib with RVR - ptt is elevated even without heparin gtt - patient unable to take PO medications at this time - cardizem gtt - cardio signed off Acute encephalopathy - CT head without acute process - stat lytes, ABG without significant hypoxia or hypercapnea - treat tachycardia - supportive acare - MRI pending Hypomagnesemia - replace and recheck Bilateral pleural effusions s/p thoracentsis Systolic cardiomyopathy with EF 40-45% Pericardial effusion - right effusion still present but better - likely due to PCM vs CHF - Hypoxia respoved - pulm recs - continue to mornitor - IV lasix 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 -Present on admission - wound care recs Type II DM -Insulin sliding scale and blood glucose monitoring hypertension, controlled -Hold antihypertensive medication, unable to take oral medications Functional quadraplegia with flexion contractures - supportive care Severe Protein calorie malnutrition - encourage oral intake when more wake - palliative care consult Hypokalemia, resolved Acute hypoxic Respiratory failure, resolved Normocytic anemia, at baseline Sepsis with E. coli pyelonephritis, resolved, abx completed Acute kidney injury, in setting of poor oral intake with dehydration and hypotension- improved I spoke with family at bedside and updated them on poor overall prognosis and recommendations for hospice. MRI pending for possible CVA. Objective - Vital Signs Vital signs: Vital Signs Temp 97.4 F L 06/22/21 08:00 Pulse 93 06/22/21 08:00 Resp 16 06/22/21 08:00 BP 117/58 06/22/21 08:00 Pulse Ox 95 06/22/21 09:05 Intake & Output 06/21/21 06/22/21 06/22/21 18:59 06:59 18:59 Intake Total 33.813 Output Total 250 Balance 33.813 -250 Weight 45.359 kg Intake: Intake, IV Titration 33.813 Amount Heparin Sod,Pork in 0.45% 33.813 NaCl 25,000 unit In 0.45 % NaCl 1 250ml.bag @ 12 UNITS/KG/HR 5.443 mls/hr IV .Q24H [facility] Rx#: [id number] Output: Urine 250 Other: Voiding Method Diaper Diaper Diaper Incontinent Incontinent Incontinent - Labs CBC & Chem 7: 06/22/21 06:38 06/22/21 06:38 Labs: Abnormal Lab Results - Last 24 Hours (Table) 06/21/21 06/21/21 06/22/21 Range/Units 16:32 19:51 06:02 WBC (3.8-10.6) k/uL RBC (3.80-5.40) m/uL Hgb (11.4-16.0) gm/dL Hct (34.0-46.0) % MCHC (31.0-37.0) g/dL RDW (11.5-15.5) % Potassium (3.5-5.1) mmol/L Chloride (98-107) mmol/L Carbon Dioxide (22-30) mmol/L BUN (7-17) mg/dL Creatinine (0.52-1.04) mg/dL Glucose (74-99) mg/dL POC Glucose (mg/dL) 213 H 258 H 208 H (75-99) mg/dL Calcium (8.4-10.2) mg/dL Magnesium (1.6-2.3) mg/dL Total Protein (6.3-8.2) g/dL Albumin (3.5-5.0) g/dL 06/22/21 06/22/21 06/22/21 Range/Units 06:38 06:38 06:38 WBC 12.1 H (3.8-10.6) k/uL RBC 2.75 L (3.80-5.40) m/uL Hgb 7.6 L (11.4-16.0) gm/dL Hct 25.4 L (34.0-46.0) % MCHC 30.1 L (31.0-37.0) g/dL RDW 18.0 H (11.5-15.5) % Potassium 3.4 L (3.5-5.1) mmol/L Chloride 111 H (98-107) mmol/L Carbon Dioxide 18 L (22-30) mmol/L BUN 33 H (7-17) mg/dL Creatinine 1.49 H (0.52-1.04) mg/dL Glucose 204 H (74-99) mg/dL POC Glucose (mg/dL) (75-99) mg/dL Calcium 7.9 L (8.4-10.2) mg/dL Magnesium 2.6 H (1.6-2.3) mg/dL Total Protein 4.3 L (6.3-8.2) g/dL Albumin 1.6 L (3.5-5.0) g/dL 06/22/21 Range/Units 11:42 WBC (3.8-10.6) k/uL RBC (3.80-5.40) m/uL Hgb (11.4-16.0) gm/dL Hct (34.0-46.0) % MCHC (31.0-37.0) g/dL RDW (11.5-15.5) % Potassium (3.5-5.1) mmol/L Chloride (98-107) mmol/L Carbon Dioxide (22-30) mmol/L BUN (7-17) mg/dL Creatinine (0.52-1.04) mg/dL Glucose (74-99) mg/dL POC Glucose (mg/dL) 230 H (75-99) mg/dL Calcium (8.4-10.2) mg/dL Magnesium (1.6-2.3) mg/dL Total Protein (6.3-8.2) g/dL Albumin (3.5-5.0) g/dL Microbiology - Last 24 Hours (Table) 06/17/21 14:30 Anaerobic Culture - Final Pleural Fluid 06/17/21 14:30 Gram Stain - Final Pleural Fluid Body Fluid Culture - Final
[2021-06-22] MEDS: levETIRAcetam IV 500 MG in SODIUM CHLORIDE 0.9% 100 ML IVPB SCH (18:13)
[2021-06-22 19:19] LABS: Glucose,Whole Blood 213 mg/dL (75-99)
--- NOTE | 2021-06-22 20:38 | MR ---
MR brain without contrast HISTORY: Altered mental status Multiplanar multisequence imaging through the brain Correlation to CT brain dated 06/20/2021 There is no restricted diffusion. Cortical atrophy and areas of encephalomalacia seen on CT are again noted including the german radiata on the right, danielle. There is confluent and scattered hyperintensi ty in the pericallosal, periventricular and subcortical white matter on inversion recovery and T2-ольга ghted sequences. No hemorrhage or hydrocephalus. Inflammatory changes present within the maxillary si nus on the right, possible mucus retention cyst, inflammatory change also present in ethmoid air cell s. Orbits show mildly asymmetric appearance of the globes similar to CT. There is ventriculomegaly in accordance with the degree of cortical atrophy. There are expected vascular flow voids. There is a p artially empty sella. Corpus callosum, cervical medullary junction, cerebellopontine angles are withi n normal limits. IMPRESSION: Age-related changes of atrophy and chronic small vessel ischemia. No acute abnormalities evident.
--- NOTE | 2021-06-22 20:58 | P.PN ---
Subjective Progress Note Date: 06/22/21 Principal diagnosis: Urinary tract infection and question of pneumonia Patient is a 76-year-old female presenting to the hospital with weakness did have a cloudy urine concerning for symptomatic urinary tract infection, and this patient did have a chronic nonhealing wound to the left foot but no evidence of any cellulitis, patient did have a CT which is completed with evidence of bilateral effusion and did have elevated pro calcitonin. On today's evaluation that is 06/22/2021, the patient continues to be afebrile, the patient is breathing comfortably on room air, the patient remains to be lethargic and not answering any questions, no oral intake no vomiting or diarrhea has been reported by the nursing staff Objective - Vital Signs Vital signs: Vital Signs Temp 97.4 F L 06/22/21 08:00 Pulse 93 06/22/21 08:00 Resp 16 06/22/21 08:00 BP 117/58 06/22/21 08:00 Pulse Ox 95 06/22/21 09:05 Intake & Output 06/21/21 06/22/21 06/22/21 18:59 06:59 18:59 Intake Total 33.813 Output Total 250 Balance 33.813 -250 Intake: Intake, IV Titration 33.813 Amount Heparin Sod,Pork in 0.45% 33.813 NaCl 25,000 unit In 0.45 % NaCl 1 250ml.bag @ 12 UNITS/KG/HR 5.443 mls/hr IV .Q24H [facility] Rx#: [id number] Output: Urine 250 Other: Voiding Method Diaper Diaper Diaper Incontinent Incontinent Incontinent - Exam GENERAL DESCRIPTION: An elderly female lying in bed in no distress RESPIRATORY SYSTEM: Unlabored breathing , decreased breath sounds at bases HEART: S1 S2 regular rate and rhythm , ABDOMEN: Soft , no tenderness EXTREMITIES: No edema feet - Labs CBC & Chem 7: 06/22/21 06:38 06/22/21 06:38 Labs: Abnormal Lab Results - Last 24 Hours (Table) 06/21/21 06/21/21 06/21/21 Range/Units 12:33 14:32 16:32 WBC (3.8-10.6) k/uL RBC (3.80-5.40) m/uL Hgb (11.4-16.0) gm/dL Hct (34.0-46.0) % MCHC (31.0-37.0) g/dL RDW (11.5-15.5) % APTT 142.7 H* (22.0-30.0) sec Potassium (3.5-5.1) mmol/L Chloride (98-107) mmol/L Carbon Dioxide (22-30) mmol/L BUN (7-17) mg/dL Creatinine (0.52-1.04) mg/dL Glucose (74-99) mg/dL POC Glucose (mg/dL) 202 H 213 H (75-99) mg/dL Calcium (8.4-10.2) mg/dL Magnesium (1.6-2.3) mg/dL Total Protein (6.3-8.2) g/dL Albumin (3.5-5.0) g/dL 06/21/21 06/22/21 06/22/21 Range/Units 19:51 06:02 06:38 WBC (3.8-10.6) k/uL RBC (3.80-5.40) m/uL Hgb (11.4-16.0) gm/dL Hct (34.0-46.0) % MCHC (31.0-37.0) g/dL RDW (11.5-15.5) % APTT (22.0-30.0) sec Potassium (3.5-5.1) mmol/L Chloride (98-107) mmol/L Carbon Dioxide (22-30) mmol/L BUN (7-17) mg/dL Creatinine (0.52-1.04) mg/dL Glucose (74-99) mg/dL POC Glucose (mg/dL) 258 H 208 H (75-99) mg/dL Calcium (8.4-10.2) mg/dL Magnesium 2.6 H (1.6-2.3) mg/dL Total Protein (6.3-8.2) g/dL Albumin (3.5-5.0) g/dL 06/22/21 06/22/21 06/22/21 Range/Units 06:38 06:38 11:42 WBC 12.1 H (3.8-10.6) k/uL RBC 2.75 L (3.80-5.40) m/uL Hgb 7.6 L (11.4-16.0) gm/dL Hct 25.4 L (34.0-46.0) % MCHC 30.1 L (31.0-37.0) g/dL RDW 18.0 H (11.5-15.5) % APTT (22.0-30.0) sec Potassium 3.4 L (3.5-5.1) mmol/L Chloride 111 H (98-107) mmol/L Carbon Dioxide 18 L (22-30) mmol/L BUN 33 H (7-17) mg/dL Creatinine 1.49 H (0.52-1.04) mg/dL Glucose 204 H (74-99) mg/dL POC Glucose (mg/dL) 230 H (75-99) mg/dL Calcium 7.9 L (8.4-10.2) mg/dL Magnesium (1.6-2.3) mg/dL Total Protein 4.3 L (6.3-8.2) g/dL Albumin 1.6 L (3.5-5.0) g/dL Microbiology - Last 24 Hours (Table) 06/17/21 14:30 Anaerobic Culture - Final Pleural Fluid 06/17/21 14:30 Gram Stain - Final Pleural Fluid Body Fluid Culture - Final Assessment and Plan (1) UTI (urinary tract infection) Current Visit: No Status: Acute Code(s): N39.0 - URINARY TRACT INFECTION, SITE NOT SPECIFIED SNOMED Code(s): 05766713 Plan: 1patient presented to hospital with mental status changes weakness foul- smelling urine with a history of recurrent UTI and did have a positive UA likely symptomatic urinary tract infection from enteric gram-negative pathogen. 2patient with wound to the left heel and left foot area but no cellulitis. 3patient urine culture been finalized as E. coli that is a sensitive pathogen, patient is currently being treated with Rocephin 2 g daily to continue 4-patient is status post thoracocentesis cultures are so far negative repeat chest x-ray did shows persistent moderate bilateral effusion, pulmonary is following 5- mental status changes decreased responsiveness CT of the brain that did not show any acute bleed , MRI has been ordered for this afternoon, family the bedside questions were answered Time with Patient: Less than 30
[2021-06-23] MEDS: METOPROLOL TARTRATE 50 MG TAB PO SCH ×2 (00:11→08:19)
[2021-06-23] MEDS: INSULIN ASPART (NovoLOG) 100 UNIT/ML VIAL SQ SCH ×3 (00:11→13:33)
[2021-06-23] MEDS: ATORVASTATIN 10 MG TAB PO SCH (00:11)
[2021-06-23] MEDS: SODIUM CHLORIDE 0.45% 1,000 ML IV SCH (00:12)
[2021-06-23 00:52] VITALS: TEMP 97.7
[2021-06-23] MEDS: levETIRAcetam IV 500 MG in SODIUM CHLORIDE 0.9% 100 ML IVPB SCH (04:11)
[2021-06-23 05:49] LABS: Glucose,Whole Blood 189 mg/dL (75-99)
[2021-06-23] MEDS: PANTOPRAZOLE 40 MG TABLET PO SCH (06:24)
[2021-06-23] MEDS: ASPIRIN 81 MG PO SCH (08:19)
[2021-06-23] MEDS: FUROSEMIDE 10 MG/ML 2 ML VIAL IV SCH (08:23)
[2021-06-23] MEDS: COLLAGENASE 250 UNIT/GM OINTMENT 30 GM TUBE TOPICAL SCH (08:24)
[2021-06-23 09:51] VITALS: BP 99/55; PULSE 104; RESP 16
[2021-06-23 11:08] LABS: Anisocytosis Slight; Basophils % (A) 0 %; Eosinophils # (A) 0.1 k/uL (0-0.7); Eosinophils % (A) 0 %; HCT 26.3 % (34.0-46.0); Hypochromasia Marked; Lymphocytes # (A) 0.4 k/uL (1.0-4.8); Lymphocytes % (A) 3 %; MCH 27.9 pg (25.0-35.0); MCHC 30.4 g/dL (31.0-37.0); MCV 91.7 fL (80.0-100.0); Mean Platelet Volume 8.2; Monocytes # (A) 0.4 k/uL (0-1.0); Monocytes % (A) 3 %; Neutrophils # (A) 13.2 k/uL (1.3-7.7); Neutrophils % (A) 93 %; Platelet Count 231 k/uL (150-450); RBC 2.87 m/uL (3.80-5.40); RDW 18.5 % (11.5-15.5); WBC 14.2 k/uL (3.8-10.6)
[2021-06-23 11:20] LABS: Albumin 1.6 g/dL (3.5-5.0); Potassium 3.6 mmol/L (3.5-5.1); Total Bilirubin 0.5 mg/dL (0.2-1.3); Total Protein 4.4 g/dL (6.3-8.2)
--- NOTE | 2021-06-23 11:44 | P.PN ---
Subjective Progress Note Date: 06/23/21 06/23/2021: Patient was seen for a follow-up. Patient slightly more awake, but still severely encephalopathic. No visible twitching was noted of the extremities. When patient was tried to waken up repeatedly, some head tremoring was noted. 06/22/2021: Patient initially seen by Dr. Torres Shin. Please refer to his note for details. Patient is a 76-year-old female with altered mental status on 06/13/2021 for UTI. patient's mentation got worse since Tuesday, 2 days ago and has been not responsive. Patient has new onset atrial fibrillation on Tuesday. MRI of the brain is pending. EEG is pending. Palliative consultation has been initiated. Patient's family has been present, who states the patient has a history of mild dementia. She has not walked for a few months because of bed wound. Patient's family has noticed that her symptoms of altered mentation started getting worse on Tuesday and she was not responding as much, but it got much worse on Tuesday which she was just looking through, not grasping. Now she is unresponsive. No obvious seizure has been witnessed. Objective - Vital Signs Vital signs: Vital Signs Temp 97.7 F 06/23/21 08:00 Pulse 104 H 06/23/21 08:00 Resp 16 06/23/21 08:00 BP 99/55 06/23/21 08:00 Pulse Ox 94 L 06/23/21 08:00 Intake & Output 06/22/21 06/23/21 06/23/21 18:59 06:59 18:59 Output Total 0 0 Balance 0 0 Weight 45.359 kg Output: Urine 0 0 Other: Voiding Method Diaper Diaper Diaper Incontinent Incontinent Incontinent # Voids 0 # Bowel Movements 0 - Exam On examination patient is an elderly female, who is severely obtunded, , does open eyes to calling her name, but does not make eye contact, or follows any commands. Patient's pupils are equal, round and minimally reacting. Gaze is midline. Oculocephalics are present. Face appears grossly symmetric althou gh difficult to assess. Her head is slightly deviated to the right. Tone is equal bilaterally. No rhythmic tremors were noted except only one time some head tremors were noted briefly when patient was awakened multiple times. Patient would not squeeze hands or respond to any commands. On passively elevating the arms, the rhythmic tremors noted yesterday were not present today. - Labs CBC & Chem 7: 06/23/21 10:44 06/23/21 10:44 Labs: Abnormal Lab Results - Last 24 Hours (Table) 06/22/21 06/22/21 06/23/21 Range/Units 11:42 19:16 05:48 WBC (3.8-10.6) k/uL RBC (3.80-5.40) m/uL Hgb (11.4-16.0) gm/dL Hct (34.0-46.0) % MCHC (31.0-37.0) g/dL RDW (11.5-15.5) % Neutrophils # (1.3-7.7) k/uL Lymphocytes # (1.0-4.8) k/uL Chloride (98-107) mmol/L Carbon Dioxide (22-30) mmol/L BUN (7-17) mg/dL Creatinine (0.52-1.04) mg/dL Glucose (74-99) mg/dL POC Glucose (mg/dL) 230 H 213 H 189 H (75-99) mg/dL Calcium (8.4-10.2) mg/dL Total Protein (6.3-8.2) g/dL Albumin (3.5-5.0) g/dL 06/23/21 06/23/21 Range/Units 10:44 10:44 WBC 14.2 H (3.8-10.6) k/uL RBC 2.87 L (3.80-5.40) m/uL Hgb 8.0 L (11.4-16.0) gm/dL Hct 26.3 L (34.0-46.0) % MCHC 30.4 L (31.0-37.0) g/dL RDW 18.5 H (11.5-15.5) % Neutrophils # 13.2 H (1.3-7.7) k/uL Lymphocytes # 0.4 L (1.0-4.8) k/uL Chloride 110 H (98-107) mmol/L Carbon Dioxide 18 L (22-30) mmol/L BUN 37 H (7-17) mg/dL Creatinine 1.78 H (0.52-1.04) mg/dL Glucose 174 H (74-99) mg/dL POC Glucose (mg/dL) (75-99) mg/dL Calcium 8.0 L (8.4-10.2) mg/dL Total Protein 4.4 L (6.3-8.2) g/dL Albumin 1.6 L (3.5-5.0) g/dL Assessment and Plan Assessment: Acute onset of Encephalopathy: No evidence of CVA noted on MRI of the brain. Abnormal EEG with some sharp-appearing waves and some triphasic states (on preliminary review of the EEG while running). Rule out seizure/status. Rule out encephalitis. Patient has component of metabolic encephalopathy and urinary tract infection New onset A. 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 Small vessel ischemic disease. I personally reviewed MRI and agree with the findings. * EEG performed today, I reviewed it briefly while it was running in her room, and on the preliminary report revealed diffuse 2-3 Hz delta slowing consistent with encephalopathy. Some independent parietal sharp-appearing waves, some triphasic-like waves were seen. Cannot rule out partial status epilepticus. We will review EEG in detail once it is completed. We will give an extra dose of Keppra 250 mg stat and then increase maintenance dose Keppra to 750 mg twice a day. I would avoid further increases in the dose of Keppra because of underlying renal insufficiency. We will review EEG in detail once it is completed. * Discussed with family in detail. Recommended Lumbar puncture to rule out encephalitis. I discussed with patient's son, who completely agreed to pursue with lumbar puncture, as he mentions that patient's brother was recently diagnosed with cryptococcal meningitis. Stat anesthesia consult was placed. * Continue aspirin 81 mg and Lipitor 10 mg daily at bedtime. She is ASA 600mg once rectally. * 2D echo revealed normal left ventricular size. Mitral valve leaflets are mildly thickened. Mild mitral annular calcification. There is moderate pericardial effusion is located near the right ventricle with the brain or thrombus forming. There is no evidence of cardiac temponade. Cardiology is on board * I.D. is on board. * Patient condition is very guarded to critical. * Discussed with the family in detail. Addendum 12:43 PM: Received call from the nurse that patient's family have decided to make her hospice. They canceled the lumbar puncture.
[2021-06-23 11:56] LABS: Glucose,Whole Blood 186 mg/dL (75-99)
--- NOTE | 2021-06-23 13:39 | P.PN ---
Subjective Progress Note Date: 06/23/21 Principal diagnosis: Confusion/UTI The patient is a 76-year-old female with a PMH of mild dementia, HTN, type 2 DM, and HLD, who was brought into the ED by family for confusion, foul smelling urine, and diffuse weakness. The patient is Nigerian speaking with history supplemented by son-in-law (Neil via phone) and ED provider. The patient reportedly has been sleeping most of the days at home, is too weak to ambulate, and has foul smelling urine. The family reports that this is typical of her UTIs for which she has been hospitalized multiple times in the past. He also reports that the patient has not been eating or drinking much as a result of her above symptoms, and has also been more confused than usual. The patient herself reported feeling tired but denied any focal complaints. Family denied reports of chest discomfort, shortness of breath, nausea, vomiting, or abdominal pain. The patient was hypotensive in the emergency room with BP 74/40 at presentation. Chest x-ray in the emergency room was unremarkable. Laboratory evaluation revealed a sodium 131, potassium 3.4, CO2 33, BUN 71, creatinine 1.90, almond 2.2, and a UA consistent with UTI. She was fluid resuscitated in the emergency department, she was started on antibiotics. Urine culture showing E. coli which was sensitive to Cefepime. Blood culture has shown no growth. Procalcitonin level was elevated at 66.7 during this admission. On 06/17/21 The patient underwent right-sided thoracentesis with removal of a little over 1.2 L of pleural fluid which was sent for pleural fluid analysis, cytology and cultures, pleural fluid analysis revealed transudative fluid consistent with CHF. Patient tolerated procedure well. Today's chest x-ray showing continued bibasilar opacities, patchy right midlung opacity the possibility of atelectasis. She remains on Cefepime for empiric antibiotic coverage, and in view of E. coli urinary tract infection. On 06/19/2021 the patient had decreased responsiveness and found to be in Afib with RVR. She was started on IV Heparin and Cadizem. She also had a CT of the head on 06/20/2021 and it's reported as cerebral atrophy and chronic small vessel ischemia. 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 No significant change compared to the recent exam. Ethmoid and maxillary sinusitis. 06/22/2021 The patient opens her eyes and grimaces to pain, she does not track or follow commands. She is in Afib and remains on Cardizem. MRI pending. 06/23/2021 The patient continues to be afebrile, the patient is breathing comfortably on room air, the patient remains to be lethargic and not answering any questions, no oral intake no vomiting or diarrhea has been reported by the nursing staff Objective - Vital Signs Vital signs: Vital Signs Temp 97.7 F 06/23/21 08:00 Pulse 104 H 06/23/21 08:00 Resp 16 06/23/21 08:00 BP 99/55 06/23/21 08:00 Pulse Ox 94 L 06/23/21 08:00 Intake & Output 06/22/21 06/23/21 06/23/21 18:59 06:59 18:59 Output Total 0 0 Balance 0 0 Weight 45.359 kg Output: Urine 0 0 Other: Voiding Method Diaper Diaper Diaper Incontinent Incontinent Incontinent # Voids 0 # Bowel Movements 0 - Exam General: No acute distress. HEENT: Head is atraumatic, normocephalic Neck is supple. Sclerae are clear. Pupils equal, round and reactive to light bilaterally. CV: Irregular rhythm S1 and S2. No clicks, rubs or murmurs. No JVD. Peripheral pulses equal. 2/4 Lungs: Diminshed bases bilaterally. No wheezes rales or rhonchi. Respirations even and nonlabored. No intercostal retractions. Abdomen/GI: Soft. Bowel sounds present in all 4 quadrants. Bowel sounds normoactive. No abdominal tenderness. : Mack draining clear, yellow urine Musculoskeletal/ Extremities: Gross muscle atrophy and contractures present. Vascular: Radial pulses equal. 2/4. Anasarca to b/l upper extremities L>R Skin: Ulcers present to Left foot, left ankle, and left buttock Neurologic: Opens eyes, does not track, grimaces to painful stimuli, does not follow commands Psychiatric: Flat affect. - Labs CBC & Chem 7: 06/23/21 10:44 06/23/21 10:44 Labs: Abnormal Lab Results - Last 24 Hours (Table) 06/22/21 06/23/21 06/23/21 Range/Units 19:16 05:48 10:44 WBC (3.8-10.6) k/uL RBC (3.80-5.40) m/uL Hgb (11.4-16.0) gm/dL Hct (34.0-46.0) % MCHC (31.0-37.0) g/dL RDW (11.5-15.5) % Neutrophils # (1.3-7.7) k/uL Lymphocytes # (1.0-4.8) k/uL Chloride 110 H (98-107) mmol/L Carbon Dioxide 18 L (22-30) mmol/L BUN 37 H (7-17) mg/dL Creatinine 1.78 H (0.52-1.04) mg/dL Glucose 174 H (74-99) mg/dL POC Glucose (mg/dL) 213 H 189 H (75-99) mg/dL Calcium 8.0 L (8.4-10.2) mg/dL Total Protein 4.4 L (6.3-8.2) g/dL Albumin 1.6 L (3.5-5.0) g/dL 06/23/21 06/23/21 Range/Units 10:44 11:55 WBC 14.2 H (3.8-10.6) k/uL RBC 2.87 L (3.80-5.40) m/uL Hgb 8.0 L (11.4-16.0) gm/dL Hct 26.3 L (34.0-46.0) % MCHC 30.4 L (31.0-37.0) g/dL RDW 18.5 H (11.5-15.5) % Neutrophils # 13.2 H (1.3-7.7) k/uL Lymphocytes # 0.4 L (1.0-4.8) k/uL Chloride (98-107) mmol/L Carbon Dioxide (22-30) mmol/L BUN (7-17) mg/dL Creatinine (0.52-1.04) mg/dL Glucose (74-99) mg/dL POC Glucose (mg/dL) 186 H (75-99) mg/dL Calcium (8.4-10.2) mg/dL Total Protein (6.3-8.2) g/dL Albumin (3.5-5.0) g/dL Assessment and Plan Assessment: Met today with patient's family in her room as planned. Present for the meeting were the patient's , daughter, son in law, and niece. The MRI results, no acute CVA, were discussed with the family whom stated that a neurologist was just there and ordered a lumbar puncture to rule out meningitis. The patient's co-morbidities and medical history were reviewed with them again. Education provided on the patient's debility, disease trajectory, and her poor prognosis. The family was able to talk yesterday and decided that they do not want her to suffer. They believe she would want to stop treatment. The stated they do not want the LP. The neurologist was notified. The family decided to make the patient comfort care. Hospice consult placed. Stephania Erickson [facility] Palliative Care [place] [phone] Email: [email or web address]
--- NOTE | 2021-06-23 14:52 | P.DS ---
Providers Date of admission: 06/13/21 15:55 Attending physician: Troy Keenan MD Consults: 06/14/21 17:15 Consult Physician Routine Consulting Provider: Gail Ordonez Consult Reason/Comments: Recurrent UTI Do you want consulting provider notified?: Yes 06/15/21 13:26 Consult Physician Routine Consulting Provider: Torres Shin Consult Reason/Comments: Altered mental status Do you want consulting provider notified?: Yes 06/16/21 15:49 Consult Physician Routine Consulting Provider: Cassie Vergara Consult Reason/Comments: very high procalcitonin, pleural effusion Do you want consulting provider notified?: Yes 06/21/21 08:29 Consult to Palliative Care Routine Consulting Provider: Stephania Erickson Consult Reason/Comments: severe protein calorie malnutirion, functional quadraplegia Do you want consulting provider notified?: Yes 06/23/21 11:31 Consult to Anesthesia Stat Consulting Provider: Anesthesia,Services Consult Reason/Comments: Lumbar Puncture r/o meningitis Primary care physician: Anand Flaherty MD Hospital Course: Date of admission 06/13/21 Date of discharge: 06/23/21 Disposition: Hospice/comfort care Consultants Neurology Infectious diseases Cardiology Pulmonology Hospice Discharge diagnoses Acute toxic metabolic encephalopathy Paroxysmal A. fib with RVR Bilateral pleural effusion status post thoracentesis Chronic systolic CHF, due to nonischemic cardiomyopathy Pericardial effusion Dementia Stage III left heel ulcer Urinary tract infection with sepsis Type 2 diabetes mellitus Reason for admission Per history and physical admission: "The patient is a 76-year-old female with a PMH of mild dementia, HTN, type 2 DM, and HLD, who was brought into the ED by family for confusion, foul smelling urine, and diffuse weakness. The patient is kyrgyz speaking with history supplemented by son-in-law (Neil via phone) and ED provider. The patient reportedly has been sleeping most of the days at home, is too weak to ambulate, and has foul smelling urine. The family reports that this is typical of her UTIs for which she has been hospitalized multiple times in the past. He also reports that the patient has not been eating or drinking much as a result of her above symptoms, and has also been more confused than usual. The patient herself reports feeling tired but denied any focal complaints. Family denied reports of chest discomfort, shortness of breath, nausea, vomiting, or abdominal pain. The patient was hypotensive in the emergency room with BP 74/40 at presentation. Chest x-ray in the emergency room was unremarkable. Laboratory evaluation revealed a sodium 131, potassium 3.4, CO2 33, BUN 71, creatinine 1.90, almond 2.2, and a UA consistent with UTI." Hospital course Patient was admitted for worsening and deteriorating mental status. Patient was evaluated by above consultants. Patient was treated with broad-spectrum antibiotics, septic pathway. Underwent thoracentesis. Echo showed depressed EF small part cardial effusion without tamponade. Paroxysmal A. fib treated with Cardizem by cardiology. CT of the head and MRI of the brain no acute findings. Unfortunately, patient's mental status continued to deteriorate, she progressed to the stuporous state. At that point neurology was considering lumbar puncture however due to multiple comorbidities, dementia, advanced age, family decided that they would not like patient to suffer anymore and in discussion the palliative care decided to take patient to hospice. Patient was discharged to hospice on 06/23/21.. Patient Condition at Discharge: Poor Plan - Discharge Summary Discharge Rx Participant: Yes New Discharge Prescriptions: New Cephalexin [Keflex] 500 mg PO Q8HR 3 Days #9 cap Furosemide [Lasix] 40 mg PO DAILY 30 Days #30 tab Acetaminophen Tab [Tylenol] 650 mg PO Q6HR PRN tab PRN Reason: Mild Pain Or Fever > 100.5 Continue Latanoprost/Pf [Latanoprost 0.005% Eye Drop] 1 drop BOTH EYES HS Pantoprazole Sodium [Protonix] 40 mg PO DAILY Metoprolol Succinate (ER) [Toprol XL] 100 mg PO DAILY Iron Polysaccharide Complex [Ferrex 150] 150 mg PO DAILY Insulin Lispro [humaLOG Kwikpen] See Protocol SQ AC-TID PRN PRN Reason: HIGH BLOOD SUGAR Aspirin EC [Ecotrin Low Dose] 81 mg PO DAILY Sodium Bicarbonate Tab 650 mg PO TID #90 tab amLODIPine [Norvasc] 5 mg PO DAILY Cholecalciferol (Vitamin D3) [Vitamin D3 (125 MCG = 5,000 IU)] 125 mcg PO DAILY Simvastatin [Zocor] 20 mg PO HS Collagenase [Santyl Ointment] 1 applic TOPICAL DAILY Ondansetron Odt [Zofran ODT] 4 mg PO Q12HR PRN PRN Reason: Nausea glipiZIDE [Glucotrol] 2.5 mg PO BID Diphenoxylate HCl/Atropine [Lomotil 2.5-0.025 mg Tablet] 2 tab PO QID PRN PRN Reason: Diarrhea Discharge Medication List Latanoprost/Pf [Latanoprost 0.005% Eye Drop] 1 drop BOTH EYES HS 09/14/20 [History] Sodium Bicarbonate Tab 650 mg PO TID #90 tab 11/20/20 [Rx] Cholecalciferol (Vitamin D3) [Vitamin D3 (125 MCG = 5,000 IU)] 125 mcg PO DAILY 12/25/20 [History] Iron Polysaccharide Complex [Ferrex 150] 150 mg PO DAILY 12/25/20 [History] Metoprolol Succinate (ER) [Toprol XL] 100 mg PO DAILY 12/25/20 [History] Pantoprazole Sodium [Protonix] 40 mg PO DAILY 12/25/20 [History] Simvastatin [Zocor] 20 mg PO HS 12/25/20 [History] amLODIPine [Norvasc] 5 mg PO DAILY 12/25/20 [History] Aspirin EC [Ecotrin Low Dose] 81 mg PO DAILY 06/13/21 [History] Collagenase [Santyl Ointment] 1 applic TOPICAL DAILY 06/13/21 [History] Diphenoxylate HCl/Atropine [Lomotil 2.5-0.025 mg Tablet] 2 tab PO QID PRN 06/13/21 [History] Insulin Lispro [humaLOG Kwikpen] See Protocol SQ AC-TID PRN 06/13/21 [History] Ondansetron Odt [Zofran ODT] 4 mg PO Q12HR PRN 06/13/21 [History] glipiZIDE [Glucotrol] 2.5 mg PO BID 06/13/21 [History] Acetaminophen Tab [Tylenol] 650 mg PO Q6HR PRN tab 06/19/21 [Rx] Cephalexin [Keflex] 500 mg PO Q8HR 3 Days #9 cap 06/19/21 [Rx] Furosemide [Lasix] 40 mg PO DAILY 30 Days #30 tab 06/19/21 [Rx] Follow up Appointment(s)/Referral(s): [facility], [NON-STAFF] - Anand Flaherty MD [Primary Care Provider] - 1-2 days Care,[facility] [NON-STAFF] - As Needed Discharge Disposition: DC/TRNS IP HOSP W/PLND IP READ
--- NOTE | 2021-06-23 19:46 | EEG ---
ELECTROENCEPHALOGRAM REPORT DATE OF SERVICE: 06/23/2021 PREAMBLE: This is a 76-year-old female with altered mental status. EEG FINDINGS: This is a 21-channel digital EEG recorded with video competent, utilizing 10/20 international system with referential and bipolar montages. The recording consists of poorly developed and regulated, diffuse slowing in 2 to 3 hertz delta activity seen in bihemispheric region. These very frequent sharp waves are seen in the right parietal region. They occasionally spread to the left hemispheric region as well. No motor activity was noted during the entire study. Different stages of sleep were not seen. Photic stimulation was not performed. IMPRESSION: This is an abnormal EEG due to: 1. Background slowing of moderate to severe degree, consistent with encephalopathy. 2. Presence of very frequent sharp waves over the right parietal region which occasionally spreads to the left side as well. This is suggestive of focal disturbance of cortical function, with underlying cortical irritability with tendency for seizure. In appropriate clinical setting, this may suggest partial status epilepticus. No convulsive activity was noted on examination. Clinical correlation and follow-up EEG is strongly recommended. MMODL / IJN: [id number] / INES
== END 2021-06-23 13:52 | disposition hospice, inpatient (51) | DRG 871 ==
LOC: EC 12:06 → 4SSUR 15:55 → 3SCARD 06-21 08:28
PROVIDERS: ADMIT Family Medicine; ATTEND Family Medicine
PROC: 02HV33Z Insertion of Infusion Device into Superior Vena Cava, Percutaneous Approach (ICD-10-PCS; 2021-06-13)
PROC: 0W993ZX Drainage of Right Pleural Cavity, Percutaneous Approach, Diagnostic (ICD-10-PCS; principal; 2021-06-17)
PROC: 05HD33Z Insertion of Infusion Device into Right Cephalic Vein, Percutaneous Approach (ICD-10-PCS; 2021-06-23 07:30)
DX: A41.51 Sepsis due to Escherichia coli [E. coli] (principal); L89.623 Pressure ulcer of left heel, stage 3; E43 Unspecified severe protein-calorie malnutrition; G92.8 Other toxic encephalopathy; I63.89 Other cerebral infarction; J96.01 Acute respiratory failure with hypoxia; R53.2 Functional quadriplegia; E87.1 Hypo-osmolality and hyponatremia; I13.0 Hypertensive heart and chronic kidney disease with heart failure and stage 1 through stage 4 chronic kidney disease, or unspecified chronic kidney disease; I31.3 Pericardial effusion (noninflammatory); I42.8 Other cardiomyopathies; I50.42 Chronic combined systolic (congestive) and diastolic (congestive) heart failure; N12 Tubulo-interstitial nephritis, not specified as acute or chronic; N17.9 Acute kidney failure, unspecified; R64 Cachexia; J90 Pleural effusion, not elsewhere classified; E11.22 Type 2 diabetes mellitus with diabetic chronic kidney disease; E11.621 Type 2 diabetes mellitus with foot ulcer; E11.649 Type 2 diabetes mellitus with hypoglycemia without coma; Z51.5 Encounter for palliative care; Z66 Do not resuscitate; Z68.20 Body mass index [BMI] 20.0-20.9, adult; L89.892 Pressure ulcer of other site, stage 2; L97.522 Non-pressure chronic ulcer of other part of left foot with fat layer exposed; N18.30 Chronic kidney disease, stage 3 unspecified; F03.90 Unspecified dementia, unspecified severity, without behavioral disturbance, psychotic disturbance, mood disturbance, and anxiety; R13.0 Aphagia; I95.9 Hypotension, unspecified; D64.9 Anemia, unspecified; F32.A Depression, unspecified; Z63.4 Disappearance and death of family member; H91.90 Unspecified hearing loss, unspecified ear; I25.10 Atherosclerotic heart disease of native coronary artery without angina pectoris; E78.5 Hyperlipidemia, unspecified; E83.42 Hypomagnesemia; E86.0 Dehydration; I25.5 Ischemic cardiomyopathy; E87.6 Hypokalemia; I48.0 Paroxysmal atrial fibrillation; J32.0 Chronic maxillary sinusitis; J32.2 Chronic ethmoidal sinusitis; R32 Unspecified urinary incontinence; Z79.82 Long term (current) use of aspirin; Z79.84 Long term (current) use of oral hypoglycemic drugs; Z79.899 Other long term (current) drug therapy; Z87.440 Personal history of urinary (tract) infections; Z95.5 Presence of coronary angioplasty implant and graft; Z98.890 Other specified postprocedural states; Z88.1 Allergy status to other antibiotic agents; I49.3 Ventricular premature depolarization; S82.892S Other fracture of left lower leg, sequela; W19.XXXS Unspecified fall, sequela; R53.81 Other malaise; H53.9 Unspecified visual disturbance; Z90.49 Acquired absence of other specified parts of digestive tract; Z98.49 Cataract extraction status, unspecified eye
CPT/HCPCS: 36410; 36415; 36556; 36600; 70450; 70551; 71045; 71046; 71250; 76604; 76937; 80048; 80053; 81001; 82140; 82272; 82330; 82607; 82805; 82945; 83605; 83615; 83735; 84100; 84145; 84155; 84157; 84484; 85025; 85027; 85610; 85730; 86140; 87040; 87070; 87075; 87077; 87086; 87102; 87116; 87186; 87205; 87206; 87252; 87496; 87498; 87502; 87529; 87634; 87798; 88108; 88305; 89050; 93005; 93306; 94760; 95816; 96365; 99285

== ENCOUNTER 2021-06-23 13:24 | Inpatient (IN) | payer MEDICAID ==
[2021-06-23] MEDS ORDERED: ACETAMINOPHEN SUPPOSITORY 650 MG SUPP RECTAL PRN (13:26)
[2021-06-23] MEDS ORDERED: MORPHINE SULFATE 2 MG/ML SYRINGE IV PRN (13:26)
[2021-06-23] MEDS ORDERED: HALOPERIDOL LACTATE 5 MG/ML 1 ML VIAL IM PRN (13:26)
[2021-06-23] MEDS ORDERED: ATROPINE OPHTH SOLN 1% 5ML BTL SUBLINGUAL PRN (13:26)
[2021-06-23] MEDS ORDERED: LORazepam 2 MG/ML INJ IV PRN (13:26)
[2021-06-23] MEDS ORDERED: ONDANSETRON 4 MG/2 ML VIAL IVP PRN (13:26)
[2021-06-23] MEDS ORDERED: MORPHINE CONC SOLN 10mg/0.5mL ORAL SYRG SL PRN (13:30)
[2021-06-23] MEDS ORDERED: SCOPOLAMINE 1 MG/72 HR PATCH TRANSDERM SCH (13:30)
[2021-06-23] MEDS ORDERED: METOPROLOL TARTRATE 5 MG/5 ML VIAL IVP PRN (13:32)
[2021-06-23] MEDS: MORPHINE SULFATE (100 MG/2 ML) 100 MG in SODIUM CHLORIDE 0.9% 100 ML IV SCH ×2 (14:42→20:49)
--- NOTE | 2021-06-23 14:57 | P.HPIM ---
History of Present Illness Chief Complaint: Encephalopathy This is a 76-year-old female with history of diabetes mellitus, dementia, atrial fibrillation, pericardial effusions, cardiomyopathy who is being admitted to hospice services today. Patient was initially admitted on 06/13/21 with alteration in mental status, encephalopathy. Found to have initially dark foul-smelling urine, UTI. Was treated with broad-spectrum antibiotics. Patient was at that time evaluated by neurology, and infectious diseases. She was continued on antibiotics. CT and MRI of the brain did not yield any acute abnormalities. During this hospitalization she also was found to have bilateral. Pleural effusions, pulmonary evaluated that she underwent thoracocentesis.. Also paroxysmal A. fib with RVR was treated with Cardizem drip by cardiology. Unfortunately, patient's mental status continued to deteriorate and she became quite stuporous. At that time neurology was on templating lumbar puncture, however due to multiple comorbidities and advanced dementia, family in discussion with palliative care decided to take patient to hospice/comfort care and declined any further investigations and lumbar punctures. Review of Systems Patient is poorly responsive and history ROS cannot be obtained Past Medical History Past Medical History: Coronary Artery Disease (CAD), Diabetes Mellitus, Hyperlipidemia, Hypertension Additional Past Medical History / Comment(s): mild, wound care center for left. left broken ankle. History of Any Multi-Drug Resistant Organisms: None Reported Past Surgical History: Cholecystectomy, Heart Catheterization With Stent, Orthopedic Surgery Additional Past Surgical History / Comment(s): hip surgery, cataract sx, left ankle surgery 2020 Past Anesthesia/Blood Transfusion Reactions: No Reported Reaction Date of Last Stent Placement:: 2000 Past Psychological History: No Psychological Hx Reported Smoking Status: Never smoker Past Alcohol Use History: None Reported Past Drug Use History: None Reported Medications and Allergies Home Medications Medication Instructions Recorded Confirmed Type Latanoprost/Pf [Latanoprost 0.005% 1 drop BOTH EYES HS 09/14/20 06/23/21 History Eye Drop] Sodium Bicarbonate Tab 650 mg PO TID #90 tab 11/20/20 06/23/21 Rx Cholecalciferol (Vitamin D3) 125 mcg PO DAILY 12/25/20 06/23/21 History [Vitamin D3 (125 MCG = 5,000 IU)] Iron Polysaccharide Complex 150 mg PO DAILY 12/25/20 06/23/21 History [Ferrex 150] Metoprolol Succinate (ER) [Toprol 100 mg PO DAILY 12/25/20 06/23/21 History XL] Pantoprazole Sodium [Protonix] 40 mg PO DAILY 12/25/20 06/23/21 History Simvastatin [Zocor] 20 mg PO HS 12/25/20 06/23/21 History amLODIPine [Norvasc] 5 mg PO DAILY 12/25/20 06/23/21 History Aspirin EC [Ecotrin Low Dose] 81 mg PO DAILY 06/13/21 06/23/21 History Collagenase [Santyl Ointment] 1 applic TOPICAL DAILY 06/13/21 06/23/21 History Diphenoxylate HCl/Atropine 2 tab PO QID PRN 06/13/21 06/23/21 History [Lomotil 2.5-0.025 mg Tablet] Insulin Lispro [humaLOG Kwikpen] See Protocol SQ AC-TID PRN 06/13/21 06/23/21 History Ondansetron Odt [Zofran ODT] 4 mg PO Q12HR PRN 06/13/21 06/23/21 History glipiZIDE [Glucotrol] 2.5 mg PO BID 06/13/21 06/23/21 History Acetaminophen Tab [Tylenol] 650 mg PO Q6HR PRN tab 06/19/21 06/23/21 Rx Cephalexin [Keflex] 500 mg PO Q8HR 3 Days #9 cap 06/19/21 06/23/21 Rx Furosemide [Lasix] 40 mg PO DAILY 30 Days #30 tab 06/19/21 06/23/21 Rx Allergies Allergy/AdvReac Type Severity Reaction Status Date / Time cephalexin [From Keflex] Allergy Swelling Verified 06/23/21 14:14 Physical Exam Vitals: Intake and Output 06/22/21 06/23/21 06/23/21 22:59 06:59 14:59 Other: Weight 45.35 kg Patient is very lethargic, poorly responsive, opens eyes slowly only to tactile stimuli. Not opening her eyes when called by name and normal voice stone Head and neck I will see any facial asymmetry pupils are in midline no nystagmus no neck rigidity Lungs coarse breath sounds Cardiovascular irregularly irregular S1-S2 Abdomen soft with bowel sounds present throughout no masses Extremities no peripheral edema there is a pending for pressure ulcers prevention on the left heel with some dressing. Neurologically she is poorly responsive. No pathological reflexes elicited Assessment and Plan Plan: #Acute toxic metabolic encephalopathy #Dementia with delirium #UTI with sepsis #Paroxysmal atrial fibrillation with RVR #Pericardial effusion #Pleural effusion status post thoracentesis #Diabetes mellitus #Pressure ulcer stage III left heel #Failure to thrive Admitted under hospice services. Continue with supportive care. Prognosis is poor.
[2021-06-24 06:31] VITALS: RESP 6
--- NOTE | 2021-06-24 16:57 | P.PN ---
Subjective Progress Note Date: 06/24/21 Objective - Vital Signs Vital signs: Vital Signs Temp Pulse Resp 6 L 06/24/21 06:31 BP Pulse Ox 98 06/24/21 00:00 Intake & Output 06/23/21 06/24/21 06/24/21 18:59 06:59 18:59 Intake Total 22 16 Output Total 50 0 0 Balance -50 22 16 Weight 45.35 kg Intake: Intake, IV Titration 22 16 Amount Morphine Sulfate (100 mg/ 22 16 2 ml) 100 mg In Sodium Chloride 0.9% 100 ml @ 1 MG/HR 1.02 mls/hr IV . Q24H [facility] Rx#:[id number] Oral 0 Output: Urine 50 0 0 Other: # Bowel Movements 1 - Exam History of Present Illness Chief Complaint: Encephalopathy This is a 76-year-old female with history of diabetes mellitus, dementia, atrial fibrillation, pericardial effusions, cardiomyopathy who is being admitted to hospice services today. Patient was initially admitted on 06/13/21 with alteration in mental status, encephalopathy. Found to have initially dark foul-smelling urine, UTI. Was treated with broad-spectrum antibiotics. Patient was at that time evaluated by neurology, and infectious diseases. She was continued on antibiotics. CT and MRI of the brain did not yield any acute abnormalities. During this hospitalization she also was found to have bilateral. Pleural effusions, pulmonary evaluated that she underwent thoracocentesis.. Also paroxysmal A. fib with RVR was treated with Cardizem drip by cardiology. Unfortunately, patient's mental status continued to deteriorate and she became quite stuporous. At that time neurology was on templating lumbar puncture, however due to multiple comorbidities and advanced dementia, family in discussion with palliative care decided to take patient to hospice/comfort care and declined any further investigations and lumbar punctures. Interval history:: Patient was examined at bedside. She is lethargic. She is currently on morphine drip. From in the bedside. Patient is very lethargic, poorly responsive, opens eyes slowly only to tactile stimuli. Not opening her eyes when called by name and normal voice stone Head and neck I will see any facial asymmetry pupils are in midline no nystagmus no neck rigidity Lungs coarse breath sounds Cardiovascular irregularly irregular S1-S2 Abdomen soft with bowel sounds present throughout no masses Extremities no peripheral edema there is a pending for pressure ulcers prevention on the left heel with some dressing. Neurologically she is poorly responsive. Assessment and plan: #Acute toxic metabolic encephalopathy #Dementia with delirium #UTI with sepsis #Paroxysmal atrial fibrillation with RVR #Pericardial effusion #Pleural effusion status post thoracentesis #Diabetes mellitus #Pressure ulcer stage III left heel #Failure to thrive Admitted under hospice services. Continue with supportive care. Prognosis is poor.
--- NOTE | 2021-06-25 08:18 | P.DS ---
Providers Date of admission: 06/23/21 13:58 Expected date of discharge: 06/24/21 Attending physician: Toy Caballero MD Consults: none Primary care physician: Anand Flaherty MD Hospital Course: his is a 76-year-old female with history of diabetes mellitus, dementia, atrial fibrillation, pericardial effusions, cardiomyopathy who is being admitted to hospice services today. Patient was initially admitted on 06/13/21 with alteration in mental status, encephalopathy. Found to have initially dark foul-smelling urine, UTI. Was treated with broad-spectrum antibiotics. Patient was at that time evaluated by neurology, and infectious diseases. She was continued on antibiotics. CT and MRI of the brain did not yield any acute abnormalities. During this hospitalization she also was found to have bilateral. Pleural effusions, pulmonary evaluated that she underwent thoracocentesis.. Also paroxysmal A. fib with RVR was treated with Cardizem drip by cardiology. Unfortunately, patient's mental status continued to deteriorate and she became quite stuporous. At that time neurology was on templating lumbar puncture, however due to multiple comorbidities and advanced dementia, family in discussio n with palliative care decided to take patient to hospice/comfort care and declined any further investigations and lumbar punctures. Patient was admitted to inpatient hospice and comfort care measure including morphine drip initiated patient was pronounced at on when he is at 21:20 Discharge diagnosis; #Acute toxic metabolic encephalopathy #Dementia with delirium #UTI with sepsis #Paroxysmal atrial fibrillation with RVR #Pericardial effusion #Pleural effusion status post thoracentesis #Diabetes mellitus #Pressure ulcer stage III left heel #Failure to thrive Plan - Discharge Summary New Discharge Prescriptions: No Action Latanoprost/Pf [Latanoprost 0.005% Eye Drop] 1 drop BOTH EYES HS Pantoprazole Sodium [Protonix] 40 mg PO DAILY Metoprolol Succinate (ER) [Toprol XL] 100 mg PO DAILY Iron Polysaccharide Complex [Ferrex 150] 150 mg PO DAILY Insulin Lispro [humaLOG Kwikpen] See Protocol SQ AC-TID PRN PRN Reason: HIGH BLOOD SUGAR Aspirin EC [Ecotrin Low Dose] 81 mg PO DAILY Cephalexin [Keflex] 500 mg PO Q8HR 3 Days #9 cap Sodium Bicarbonate Tab 650 mg PO TID #90 tab amLODIPine [Norvasc] 5 mg PO DAILY Cholecalciferol (Vitamin D3) [Vitamin D3 (125 MCG = 5,000 IU)] 125 mcg PO DAILY Simvastatin [Zocor] 20 mg PO HS Collagenase [Santyl Ointment] 1 applic TOPICAL DAILY Ondansetron Odt [Zofran ODT] 4 mg PO Q12HR PRN PRN Reason: Nausea glipiZIDE [Glucotrol] 2.5 mg PO BID Diphenoxylate HCl/Atropine [Lomotil 2.5-0.025 mg Tablet] 2 tab PO QID PRN PRN Reason: Diarrhea Furosemide [Lasix] 40 mg PO DAILY 30 Days #30 tab Acetaminophen Tab [Tylenol] 650 mg PO Q6HR PRN tab PRN Reason: Mild Pain Or Fever > 100.5 Discharge Medication List Latanoprost/Pf [Latanoprost 0.005% Eye Drop] 1 drop BOTH EYES HS 09/14/20 [History] Sodium Bicarbonate Tab 650 mg PO TID #90 tab 11/20/20 [Rx] Cholecalciferol (Vitamin D3) [Vitamin D3 (125 MCG = 5,000 IU)] 125 mcg PO DAILY 12/25/20 [History] Iron Polysaccharide Complex [Ferrex 150] 150 mg PO DAILY 12/25/20 [History] Metoprolol Succinate (ER) [Toprol XL] 100 mg PO DAILY 12/25/20 [History] Pantoprazole Sodium [Protonix] 40 mg PO DAILY 12/25/20 [History] Simvastatin [Zocor] 20 mg PO HS 12/25/20 [History] amLODIPine [Norvasc] 5 mg PO DAILY 12/25/20 [History] Aspirin EC [Ecotrin Low Dose] 81 mg PO DAILY 06/13/21 [History] Collagenase [Santyl Ointment] 1 applic TOPICAL DAILY 06/13/21 [History] Diphenoxylate HCl/Atropine [Lomotil 2.5-0.025 mg Tablet] 2 tab PO QID PRN 06/13/21 [History] Insulin Lispro [humaLOG Kwikpen] See Protocol SQ AC-TID PRN 06/13/21 [History] Ondansetron Odt [Zofran ODT] 4 mg PO Q12HR PRN 06/13/21 [History] glipiZIDE [Glucotrol] 2.5 mg PO BID 06/13/21 [History] Acetaminophen Tab [Tylenol] 650 mg PO Q6HR PRN tab 06/19/21 [Rx] Cephalexin [Keflex] 500 mg PO Q8HR 3 Days #9 cap 06/19/21 [Rx] Furosemide [Lasix] 40 mg PO DAILY 30 Days #30 tab 06/19/21 [Rx] Discharge Disposition: - Preliminary Cause of Preliminary Cause of : failure to thrive
== END 2021-06-24 23:00 | disposition expired | DRG 951 ==
LOC: 3SCARD 13:58
PROVIDERS: ADMIT Hospitalist; ATTEND Hospitalist
DX: Z51.5 Encounter for palliative care (principal); L89.623 Pressure ulcer of left heel, stage 3; A41.9 Sepsis, unspecified organism; G92.8 Other toxic encephalopathy; F05 Delirium due to known physiological condition; I31.3 Pericardial effusion (noninflammatory); I42.9 Cardiomyopathy, unspecified; J90 Pleural effusion, not elsewhere classified; N39.0 Urinary tract infection, site not specified; Z66 Do not resuscitate; E11.9 Type 2 diabetes mellitus without complications; E78.5 Hyperlipidemia, unspecified; F03.90 Unspecified dementia, unspecified severity, without behavioral disturbance, psychotic disturbance, mood disturbance, and anxiety; I10 Essential (primary) hypertension; I25.10 Atherosclerotic heart disease of native coronary artery without angina pectoris; I48.0 Paroxysmal atrial fibrillation; R62.7 Adult failure to thrive; Z79.82 Long term (current) use of aspirin; Z79.84 Long term (current) use of oral hypoglycemic drugs; Z79.899 Other long term (current) drug therapy; Z98.890 Other specified postprocedural states; Z88.1 Allergy status to other antibiotic agents